=== PATIENT | male | born 1955 | race Caucasian/White ===

== ENCOUNTER → 2024-02-11 | Outpatient (CLI) | payer MEDICARE, BC, SELFPAY ==
[2024-02-11 15:56] LABS: Anion Gap 7 (5-15); BUN 5 mg/dL (7-18); BUN/Creat Ratio 5.3 RATIO (10-20); Calcium,Total 8.9 mg/dL (8.5-10.1); Chloride 96 mmol/L (98-107); Creatinine, Serum 0.95 mg/dL (0.70-1.30); EST Glomerular Filtration Rate 83 mL/min (>60); Est Glom Filt Rate - Afr Amer 101 mL/min (>60); Glucose 75 mg/dL (74-106); Potassium 4.3 mmol/L (3.5-5.1); Sodium Level 130 mmol/L (136-145)
[2024-02-11 16:04] LABS: BNP,B-Type NATRIURETIC PEPTIDE 187.7 pg/mL (0-100)
== END | disposition home or self-care (01) ==
PROVIDERS: PCP Nurse Practitioner Family; Referring Provider Internal Medicine Interventional Cardiology; Visit Provider Internal Medicine Interventional Cardiology
DX: I11.0 Hypertensive heart disease with heart failure (principal); I50.33 Acute on chronic diastolic (congestive) heart failure; J44.1 Chronic obstructive pulmonary disease with (acute) exacerbation
CPT/HCPCS: 80048; 83880

== ENCOUNTER → 2024-07-20 | Outpatient (CLI) | payer MEDICARE, BC, SELFPAY ==
[2024-07-20 23:10] LABS: Absolute Lymphocyte Count 1.08 X10^3/uL (0.83-4.51); Absolute Neutrophil Count 10.2 X10^3/uL (2.0-7.7); Basophil# 0.07 X10^3/uL; Basophil% 0.5 % (0-1); Eosinophil# 0.18 X10^3/uL; Eosinophils% 1.4 % (0-5); Hematocrit 40.6 % (40-54); Hemoglobin 12.8 g/dL (13.0-16.5); Lymphocyte # 1.08 X10^3/ul (0.83-4.51); Lymphocyte % 8.3 % (19-41); Mean Corp Hgb Conc 31.5 g/dL (32-36); Mean Corpuscular Hgb 27.9 pg (27.0-32.0); Mean Corpuscular Volume 88.5 fL (80-94); Mean Platelet Vol. 9.2 fl (6.2-12.0); Monocyte# 1.25 X10^3/uL; Monocyte% 9.6 % (0-10); NRBC Flagged by Analyzer 0 % (0-5); Neutrophil # 10.22 X10^3/uL (2.7-7.7); Neutrophil % 78.8 % (47-70); Platelet Count 244 K/mm3 (150-450); RBC Distribution Width CV 15.6 % (11.6-14.6); RBC Distribution Width SD 50.4 fl (35.1-43.9); Red Blood Count 4.59 M/mm3 (4.6-6.2)
[2024-07-21 01:30] LABS: ALB/GLOB Ratio 1.1 RATIO (0.9-2.4); AST(SGOT) 23 U/L (<=37); Alanine Aminotransfer ALT/SGPT 10 U/L (<=46); Albumin, Serum 3.7 g/dL (3.4-4.8); Alkaline Phosphatase 52 U/L (40-129); Anion Gap 16 (5-15); BUN 8 mg/dL (4-19); BUN/Creat Ratio 8.8 RATIO (10-20); Carbon Dioxide 22.1 mmol/L (21.0-32.0); Chloride 94 mmol/L (98-108); Creatinine, Serum 0.96 mg/dL (0.70-1.20); EST Glomerular Filtration Rate 84 (>60); Globulin 3.4 g/dL (2.2-4.2); Glucose 79 mg/dL (70-99); Potassium 3.8 mmol/L (3.3-5.1); Protein, Total 7.1 g/dL (5.9-8.4); Sodium Level 132 mmol/L (133-145)
== END | disposition home or self-care (01) ==
PROVIDERS: PCP Nurse Practitioner Family; Referring Provider Nurse Practitioner Family; Visit Provider Nurse Practitioner Family
DX: I11.0 Hypertensive heart disease with heart failure (principal); I50.32 Chronic diastolic (congestive) heart failure
CPT/HCPCS: 80053; 85025

== ENCOUNTER → 2025-03-25 | Outpatient (CLI) | payer MEDICARE, BC, SELFPAY ==
[2025-03-25 18:58] LABS: Hematocrit 37.0 % (40-54); Hemoglobin 11.1 g/dL (13.0-16.5); Immature Granulocytes Count 0.080 X10^3/uL (0.0-0.0); Mean Corp Hgb Conc 30.0 g/dL (32-36); Mean Corpuscular Volume 84.9 fL (80-94); Mean Platelet Vol. 9.6 fl (6.2-12.0); NRBC Flagged by Analyzer 0 % (0-5); Platelet Count 250 K/mm3 (150-450); RBC Distribution Width CV 14.1 % (11.6-14.6); RBC Distribution Width SD 43.8 fl (35.1-43.9); Red Blood Count 4.36 M/mm3 (4.6-6.2); White Blood Count 9.7 K/mm3 (4.4-11.0)
[2025-03-25 19:13] LABS: Anion Gap 13 (5-15); BUN 10 mg/dL (4-19); BUN/Creat Ratio 10.6 RATIO (10-20); Calcium,Total 9.3 mg/dL (7.6-11.0); Carbon Dioxide 25.4 mmol/L (21.0-32.0); Chloride 90 mmol/L (98-108); Glucose 60 mg/dL (70-99); Potassium 4.6 mmol/L (3.3-5.1)
--- OUTSIDE RECORDS SUMMARY | 2025-03-25 19:23 | XMS RPT_ITS | CCD ---
Author Organization [facility] Care Team Providers Care Letter Carrier Name Role Phone Priya Rock Unavailable Unavailable Unavailable Unavailable Unavailable Queden TECHNICAL APPLICATIONS SCIENTIST.TAG MACHINE OPERATOR, Alma A Primary Care Provider Richard Nieto Unavailable Queden TECHNICAL APPLICATIONS SCIENTIST.TAG MACHINE OPERATOR, Alma A Primary Care Provider Queden TECHNICAL APPLICATIONS SCIENTIST.TAG MACHINE OPERATOR, Amla A Primary Care Provider Queden TECHNICAL APPLICATIONS SCIENTIST.TAG MACHINE OPERATOR, Alma A Primary Care Provider Dedrick Krause DO Unavailable Dedrick Krause DO Unavailable Queden TECHNICAL APPLICATIONS SCIENTIST.TAG MACHINE OPERATOR, Alma A Primary Care Provider Marbin RINCON, Qi Veliz Unavailable Lilian Sethi RN Unavailable Marbin RINCON, Qi N Unavailable Marbin RINCON, Qi N Unavailable Beatrice Sarmiento Attending Unavailable Beatrice Sarmiento Referring Unavailable Queden VOICE OVER ARTIST, Alma Primary Care Unavailable Queden VOICE OVER ARTIST, Alma Primary Care Unavailable Queden VOICE OVER ARTIST, Alma Attending Unavailable Queden VOICE OVER ARTIST, Alma Referring Unavailable Queden VOICE OVER ARTIST-C, Alma Primary Care Provider [phone] Queden VOICE OVER ARTIST-C, Alma Attending Provider [phone] Queden VOICE OVER ARTIST-C, Alma Referring Provider Beatrice Sarmiento MD Unavailable MONE ROBERTSON Referring Unavailable PROVIDER, UNKNOWN Primary Care Unavailable ROSA M, UBDDY Attending Unavailable TRU PRESCOTT Admitting Unavailable BUDZIAK, ASH SARKAR Referring Unava ilable PROVIDER, UNKNOWN Primary Care Unavailable AGUSTÍN HERNÁNDEZ Attending UnavailFRANCISCO Gutierres Consulting Unavailable Ameya RN, Lilian Unavailable Dedrick Krause DO Unavailable Ameya RN, Lilian Unavailable Ameya RN, Lilian Unavailable QUEDEN, ALMA A Primary Care Unavailable QUEDEN, ALMA A Attending Unavailable QUEDEN, ALMA A Referring Unavailable QUEDEN, ALMA A Primary Care Unavailable MITCHELL CARUSO Referring Unavailable QUEDEN, ALMA A Primary Care Unavailable SANDRA HUMMEL Attending Unavailable QUEDEN, ALMA A Primary Care Unavailable BEAR HIDALGO Attending Unavailable QUEDEN, ALMA A Referring Unavailable QUEDEN, ALMA A Primary Care Unavailable QUEDEN, ALMA A Primary Care Unavailable QUEDEN, ALMA A Referring Unavailable QUEDEN, ALMA A Primary Care Unavailable QUEDEN, ALMA A Attending Unavailable SELF Referring Unavailable QUEDEN, ALMA A Primary Care Unavailable QUEDEN, ALMA A Referring Unavailable QUEDEN, ALMA A Primary Care Unavailable LILIAN RODRÍGUEZ Referring Unavailable TRU SIMON Referring Unavailable QUEDEN, ALMA A Primary Care Unavailable QUEDEN, ALMA A Primary Care Unavailable QUEDEN, ALMA A Attending Unavailable QUEDEN, ALMA A Referring Unavailable QUEDEN, ALMA A Primary Care Unavailable QUEDEN, ALMA A Attending Unavailable MITCHELL CARUSO Referring Unavailable QUEDEN, ALMA A Primary Care Unavailable QUEDEN, ALMA A Referring Unavailable QUEDEN, ALMA A Primary Care Unavailable QUEDEN, ALMA A Primary Care Unavailable TRU SIMON Referring Unavailable BUDZIAKASH Attending Unava ilable QUEDEN, ALMA A Primary Care Unavailable QUEDEN, ALMA A Primary Care Unavailable QUEDEN, ALMA A Referring Unavailable TRU SIMON Referring Unavailable QUEDEN, ALMA A Primary Care Unavailable TRU SIMON Referring Unavailable QUEDEN, ALMA A Primary Care Unavailable TRU SIMON Attending Unavailable QUEDEN, ALMA A Primary Care Unavailable TRU SIMON Referring Unavailable QUEDEN, ALMA A Primary Care Unavailable TRU SIMON Attending Unavailable TRU SIMON Referring Unavailable QUEDEN, ALMA A Primary Care Unavailable TESTRAKE, FRANCESCO Attending Unavailable TESTRAKE, FRANCESCO Referring Unavailable QUEDEN, ALMA A Primary Care Unavailable TRU SIMON Referring Unavailable QUEDEN, ALMA A Primary Care Unavailable TRU SIMON Attending Unavailable QUEDEN, ALMA A Primary Care Unavailable CLICK, MITCHELL Attending Unavailable QUEDEN, ALMA A Primary Care Unavailable SIMON, TRU SARKAR Attending Unavailable CLICK, MITCHELL Referring Unavailable QUEDEN, ALMA A Primary Care Unavailable TESTRAKE, FRANCESCO Attending Unavailable QUEDEN, ALMA A Primary Care Unavailable SIMON, TRU SARKAR Attending Unavailable QUEDEN, ALMA A Primary Care Unavailable TORSTEN, BEATRICE GARZA Attending Unavailable TORSTEN, BEATRICE GARZA Referring Unavailable QUEDEN, ALMA A Primary Care Unavailable TRU LUCAS Attending Unavailable QUEDEN, ALMA A Primary Care Unavailable TRU SIMON Referring Unavailable QUEDEN, ALMA A Primary Care Unavailable TESTRAKE, FRANCESCO Attending Unavailable TESTRAKE, FRANCESCO Referring Unavailable QUEDEN, ALMA A Primary Care Unavailable Allergies Allergy Classification Reported Allergen(s) Allergy Type Date of Onset Reaction(s) Facility (20 sources) Seasonal allergy; Translations: [SEASONAL ALLERGIES] Propensity to adverse reactions 3 Other: See Comments [facility] Work Phone: (20 sources) Animal Dander; Translations: [ANIMAL DANDER] Propensity to adverse reactions to drug 3 Other: See Comments [facility] Work Phone: Medications Current Medications Medication Drug Class(es) Dates Sig (Normalized) Sig (Original) acetaminophen 500 mg oral tablet (20 sources) Start: 02-19-2022 take 2 tablets by mouth every eight hours as needed for pain acetaminophen (TYLENOL EXTRA STRENGTH) 500 mg tablet Indications: Chronic low back pain, unspecified back pain laterality, unspecified whether sciatica present Take 2 tablets by mouth every 8 hours as needed for pain. FOR PAIN. 90 tablet 02/19/2022 Active Comment on above: Take 2 tablets by [facility] every 8 hours as needed for pain. FOR PAIN. 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 35 tablet 09/14/2024 09/21/2024 sensor 200 actuat albuterol 0.09 mg/actuat dry powder inhaler (20 sources) beta2-Adrenergic Agonist Start: 09-07-2022 End: 04-15-2023 take 1-2 puff(s) by inhalation every four hours as needed for wheezing albuterol sulfate 90 mcg/actuation aebs Inhale 1-2 Puffs as instructed every 4 hours as needed for wheezing/shortness of breath. 1 Each 2 04/15/2023 Active Start: 09-07-2022 End: 09-07-2022 albuterol (PROVENTIL) 2.5 mg /3 mL (0.083 %) nebulizer solution Indications: SOB (shortness of breath) on exertion Use 3 mL via nebulizer every 4 hours as needed for wheezing/shortness of breath. 240 mL 1 09/07/2022 09/07/2022 Discontinued (Patient chooses alternative therapy) Comment on above: Inhale 1-2 Puffs as instructed every 4 hours as needed for wheezing/shortness of breath. Use 3 mL via nebuliz er every 4 hours as needed for wheezing/shortness of breath. 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 360 mL 5 06/24/2024 Active aspirin 81 mg delayed release oral tablet (20 sources) Platelet Aggregation Inhibitor, Nonsteroidal Anti-inflammatory Drug take 1 tablet by mouth once daily aspirin, enteric coated (ASPIRIN, ENTERIC COATED) 81 mg EC tablet Take 81 mg by mouth once daily. Active Kisha Low Dose T BEC Refills: 0 Active Comment on above: Take 81 mg by mouth once daily. azaTHIOprine 50 mg oral tablet (20 sources) Purine Antimetabolite Start: End: take 1 tablet by mouth once daily azaTHIOprine (IMURAN) 50 mg tablet Indications: Hypersensitivity pneumonitis (HCC) Take 1 tablet by mouth once daily. 11/11/2024 Active budesonide 0.25 mg/ml inhalation suspension (20 sources) Corticosteroid Start: End: budesonide (PULMICORT) 0.5 mg/2 mL nebulizer solution Indications: Chronic obstructive pulmonary disease with acute exacerbation (HCC) Use 2 mL via nebulizer two times a day. 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 360 mL 1 06/24/2024 12/21/2024 Active cefdinir 300 mg oral capsule (1 source) Cephalosporin Antibacterial Start: 10-17-2024 End: 10-20-2024 cefdinir (OMNICEF) 300 mg capsule Take 1 capsule by mouth two times a day for 6 doses. Patient should start on October 17, 2024. 6 capsule 10/17/2024 10/20/2024 Active ciprofloxacin 500 mg oral tablet (1 source) Quinolone Antimicrobial Start: 03-19-2022 End: 03-26-2022 take 1 tablet by mouth twice daily ciprofloxacin HCl (CIPRO) 500 mg tablet Indications: Complicated UTI (urinary tract infection) Take 1 tablet by mouth twice daily for 7 days. 14 tablet 0 03/19/2022 03/26/2022 Active Comment on above: Take 1 tablet by anand th twice daily for 7 days. clopidogrel 75 mg oral tablet (20 sources) P2Y12 Platelet Inhibitor Start: 08-12-2022 End: 01-12-2025 take 1 tablet by mouth once daily clopidogrel (PLAVIX) 75 mg tablet Indications: Peripheral vascular disease TAKE 1 TABLET BY MOUTH EVERY DAY 90 tablet 1 01/12/2025 Active Comment on above: Take 1 tablet by anand th once daily. take 1 tablet by anand th every day colestipol hydrochloride 1000 mg oral tablet (20 sources) Bile Acid Sequestrant Start: 09-03-2023 End: 10-26-2024 take 1 tablet by mouth twice daily colestipol (COLESTID) 1 gram tablet Indications: Diarrhea, unspecified type Take 1 tablet by mouth two times a day. 180 tablet 1 10/26/2024 Active doxycycline hyclate 100 mg oral capsule (9 sources) Tetracycline-class Drug Start: 04-20-2024 End: 04-30-2024 take 1 capsule by mouth twice daily doxycycline hyclate (VIBRAMYCIN) 100 mg capsule Take 1 capsule (100 mg) by mouth two times a day for 10 days. 20 capsule 04/20/2024 04/30/2024 Active escitalopram 20 mg oral tablet (20 sources) Serotonin Reuptake Inhibitor Start: 07-17-2022 End: 01-12-2025 take 1 tablet by mouth once daily escitalopram oxalate (LEXAPRO) 20 mg tablet Indications: Anxiety and depression TAKE 1 TABLET BY MOUTH EVERY DAY 90 tablet 1 01/12/2025 Active Start: 02-01-2022 End: 05-02-2022 take 1 tablet by mouth once daily escitalopram oxalate (LEXAPRO) 20 mg tablet Indications: Anxiety and depression TAKE 1 TABLET BY MOUTH EVERY DAY 30 tablet 2 05/02/2022 Active Start: 11-23-2021 End: 02-01-2022 take 2 tablets by mouth once daily escitalopram oxalate (LEXAPRO) 10 mg tablet Take 2 tablets by mouth once daily. 90 tablet 1 11/23/2021 02/01/2022 Discontinued Start: 11-14-2021 End: 11-23-2021 take 1 tablet by mouth once daily escitalopram oxalate (LEXAPRO) 10 mg tablet Take 1 tablet by mouth once daily. 90 tablet 1 11/14/2021 11/23/2021 Discontinued Start: 06-26-2021 take 1 tablet by anand th once daily escitalopram oxalate (LEXAPRO) 10 mg tablet TAKE 1 TABLET BY MOUTH EVERY DAY 90 tablet 1 06/26/2021 Active Escitalopram Oxa late 10 MG Oral Tablet Refills: 0 Active Comment on above: TAKE 1 TABLET BY ANAND TH EVERY DAY Take 2 tablets by mo ut once daily. Take 1 tablet by anand th once daily. ezetimibe 10 mg oral tablet (20 sources) Dietary Cholesterol Absorption Inhibitor Start: 01-30-20 End: 05-17-19 take 1 tablet by mouth once daily ezetimibe (ZETIA) 10 mg tablet Indications: Mixed hyperlipidemia Take 1 tablet by mouth once daily. 90 tablet 3 05/18/2024 Active Comment on above: Take 1 tablet by anand th once daily. fluticasone propionate 0.05 mg/actuat metered dose nasal spray (20 sources) Corticosteroid Start: 09-14-19 End: 12-12-19 take 1 spray(s) nasal route once daily fluticasone (FLONASE) 50 mcg/actuation nasal spray Indications: Postnasal drip spray 1 spray into each nostril every day 48 mL 1 12/12/2023 Active Comment on above: Use 1 Jaffrey in each nostril once daily. SPRAY 1 SPRAY INTO E ACH NOSTRIL EVERY DAY furosemide 40 mg oral tablet (20 sources) Loop Diuretic Start: 05-20-19 24 End: 03-31-20 24 take 1 tablet by mouth three times weekly furosemide (LASIX) 40 mg tablet Indications: Medication refill Take 1 tablet by mouth three times a week. 36 tablet 1 03/31/2024 Active Start: 08-11-2022 take 1 tablet by anand th three times weekly furosemide (LASIX) 40 mg tablet Indications: Medication refill Take 1 tablet by mouth three times a week. 0 08/11/2022 Active Start: 11-08-2021 take 1 tablet by anand th once daily as needed furosemide (LASIX) 40 mg tablet Indications: Medication refill TAKE 1 TABLET BY MOUTH ONCE DAILY NEEDED. 30 tablet 2 03/20/2021 Active Comment on above: TAKE 1 TABLET BY ANAND ONCE DAILY NEEDED. Take 1 tablet by anand th three times a week. gabapentin 300 mg oral capsule (20 sources) Anti-epileptic Agent Start: 06-23-2024 End: 08-02-2024 take 2 capsules by mouth once daily in the morning gabapentin (NEURONTIN) 300 mg capsule Indications: Neuropathy TAKE 2 CAPSULES BY MOUTH EVERY MORNING AND 3 CAPSULES AT BEDTIME FOR 30 DAYS. Strength: 300 mg 150 capsule 2 07/14/2024 Active Start: 04-27-2024 End: 06-17-2024 take 2 capsules by mouth once daily in the morning gabapentin (NEURONTIN) 300 mg capsule Indications: Neuropathy TAKE 2 CAPSULES BY MOUTH EVERY MORNING AND 3 CAPSULES AT BEDTIME FOR 30 DAYS. Strength: 300 mg 150 capsule 2 05/25/2024 06/17/2024 Active Start: 12-23-2023 End: 04-25-2024 take 2 capsules by mouth once daily in the morning gabapentin (NEURONTIN) 300 mg capsule Indications: Neuropathy TAKE 2 CAPSULES BY MOUTH EVERY MORNING AND 3 CAPSULES AT BEDTIME FOR 30 DAYS. Strength: 300 mg 150 capsule 2 03/31/2024 04/25/2024 Discontinued Start: 11-22-2023 End: 12-21-2023 take 2 capsules by mouth once daily in the morning gabapentin (NEURONTIN) 300 mg capsule Indications: Neuropathy TAKE 2 CAPSULES BY MOUTH EVERY MORNING AND 3 CAPSULES AT BEDTIME FOR 30 DAYS. Strength: 300 mg 150 capsule 0 11/22/2023 12/20/2023 Discontinued Start: 09-20-2023 End: 11-20-2023 take 2 capsules by mouth once daily in the morning gabapentin (NEURONTIN) 300 mg capsule Indications: Neuropathy TAKE 2 CAPSULES BY MOUTH EVERY MORNING AND 3 CAPSULES AT BEDTIME FOR 30 DAYS. STRENGTH: 300 MG 150 capsule 0 10/21/2023 Active Start: 08-19-2023 End: 09-14-2023 take 2 capsules by mouth once daily in the morning gabapentin (NEURONTIN) 300 mg capsule Indications: Neuropathy TAKE 2 CAPSULES BY MOUTH EVERY MORNING AND 3 CAPSULES AT BEDTIME FOR 30 DAYS. Strength: 300 mg 150 capsule 0 08/19/2023 Active Start: 02-14-2023 End: 08-15-2023 take 2 capsules by mouth once daily in the morning gabapentin (NEURONTIN) 300 mg capsule Indications: Neuropathy TAKE 2 CAPSULES BY MOUTH EVERY MORNING AND 3 CAPSULES AT BEDTIME FOR 30 DAYS. Strength: 300 mg 150 capsule 0 07/19/2023 Active Start: 12-17-2022 End: 02-12-2023 take 2 capsules by mouth once daily in the morning, then take 3 capsules by mouth at bedtime gabapentin (NEURONTIN) 300 mg capsule Indications: Neuropathy TAKE 2 CAPSULES BY MOUTH EVERY MORNING AND 3 CAPSULES AT BEDTIME FOR 30 DAYS. 150 capsule 0 01/15/2023 02/12/2023 Active Start: 10-09-2022 End: 12-15-2022 take 2 capsules by mouth once daily in the morning, then take 3 capsules by mouth at bedtime gabapentin (NEURONTIN) 300 mg capsule Indications: Neuropathy TAKE 2 CAPSULES BY MOUTH EVERY MORNING AND 3 CAPSULES AT BEDTIME FOR 30 DAYS. 150 capsule 0 11/12/2022 12/15/2022 Discontinued Start: 04-10-2022 End: 09-28-2022 take 2 capsules by mouth once daily in the morning, then take 3 capsules by mouth at bedtime gabapentin (NEURONTIN) 300 mg capsule Indications: Neuropathy TAKE 2 CAPSULES BY MOUTH EVERY MORNING AND 3 CAPSULES AT BEDTIME FOR 30 DAYS. 150 capsule 0 08/29/2022 09/28/2022 Active Start: 03-05-2022 End: 04-04-2022 take 2 capsules by mouth once daily in the morning, then take 3 capsules by mouth once daily at bedtime gabapentin (NEURONTIN) 300 mg capsule Indications: Neuropathy TAKE 2 CAPSULES BY MOUTH EVERY MORNING AND 3 CAPSULES DAILY AT BEDTIME. DO ALL THIS FOR 30 DAYS. 150 capsule 0 03/05/2022 04/04/2022 Active Start: 12-04-2021 End: 03-03-2022 take 2 capsules by mouth once daily in the morning, then take 3 capsules by mouth once daily at bedtime gabapentin (NEURONTIN) 300 mg capsule Indications: Neuropathy Take 2 capsules by mouth every morning AND 3 capsules daily at bedtime. Do all this for 30 days. 150 capsule 0 02/01/2022 Active Start: 10-02-2021 End: 12-01-2021 take 2 capsules by mouth once daily in the morning, then take 3 capsules by mouth once daily at bedtime gabapentin (NEURONTIN) 300 mg capsule Take 2 capsules by mouth every morning AND 3 capsules daily at bedtime. Do all this for 30 days. 150 capsule 0 11/01/2021 Active Start: 07-28-2021 End: 09-29-2021 take 2 capsules by mouth once daily in the morning, then take 3 capsules by mouth once daily at bedtime gabapentin (NEURONTIN) 300 mg capsule Take 2 capsules by mouth every morning AND 3 capsules daily at bedtime. Do all this for 30 days. 150 capsule 0 08/30/2021 09/29/2021 Active Gabapentin 300 M G Oral Capsule Refills: 0 Active Comment on above: Take 2 capsules by m outh every morning AND 3 capsules daily at bedtime. Do all this for 30 days. TAKE 2 CAPSULES BY M OUTH EVERY MORNING AND 3 CAPSULES AT BEDTIME FOR 30 DAYS. TAKE 2 CAPSULES BY M OUTH EVERY MORNING AND 3 CAPSULES AT BEDTIME FOR 30 DAYS. 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 60 tablet 5 11/11/2024 Active Start: 02-11-2024 End: 03-21-2024 take 1 tablet by mouth twice daily as needed guaiFENesin (MUCINEX) 600 mg 12 hr tablet Take 1 tablet by mouth two times a day as needed for cold/allergy symptoms. 60 tablet 02/11/2024 03/21/2024 Discontinued Start: 01-16-2024 End: 01-26-2024 take 1 tablet by mouth every twelve hours guaiFENesin (MUCINEX) 600 mg 12 hr tablet Take 1 tablet by mouth every 12 hours for 10 days. 20 tablet 01/16/2024 01/26/2024 Active hydrOXYzine hydrochloride 25 mg oral tablet (20 sources) Antihistamine Start: 07-14-2024 take 2 tablets by mouth twice daily hydrOXYzine HCl (ATARAX) 25 mg tablet Indications: Itching Take 2 tablets by mouth two times a day. 360 tablet 1 07/14/2024 Active Start: 01-24-2023 End: 02-05-2024 take 1 tablet by mouth four times daily hydrOXYzine HCl (ATARAX) 25 mg tablet Indications: Anxiety and depression take 1 tablet by mouth four times a day 360 tablet 1 01/03/2024 02/05/2024 Discontinued Start: 07-02-2022 End: 12-27-2022 take 1 tablet by mouth four times daily hydrOXYzine HCl (ATARAX) 25 mg tablet Indications: Anxiety and depression TAKE 1 TABLET BY MOUTH FOUR TIMES A DAY 120 tablet 1 11/01/2022 12/27/2022 Discontinued Start: 06-26-2021 End: 05-02-2022 take 1 tablet by mouth four times daily hydrOXYzine HCl (ATARAX) 25 mg tablet Indications: Anxiety and depression TAKE 1 TABLET BY MOUTH 4 TIMES A DAY 120 tablet 1 05/02/2022 Active Start: 05-29-2020 hydrOXYzine HC l - 25 MG Oral Tablet Quantity: 120 Refills: 0 Start : 29-May-2020 Active Comment on above: TAKE 1 TABLET BY ANAND TH FOUR TIMES A DAY Take 1 tablet by anand th four times daily. TAKE 1 TABLET BY ANAND TH 4 TIMES A DAY 24 hr isosorbide mononitrate 30 mg extended release oral tablet (20 sources) Nitrate Vasodilator Start: End: take 1 tablet by mouth once daily isosorbide mononitrate ER (IMDUR) 30 mg 24 hr tablet Indications: Chest discomfort Take 1 tablet by mouth once daily. 90 tablet 1 07/21/2024 Active Start: 06-04-2022 End: 07-05-2022 take 1 tablet by mouth once daily isosorbide mononitrate ER (IMDUR) 30 mg 24 hr tablet Take 1 tablet by mouth once daily. 15 tablet 11 07/05/2022 Active Comment on above: Take 0.5 tablets by mouth once daily. Take 1 tablet by anand th once daily. TAKE 1 TABLET BY ANAND TH EVERY DAY lactobacillus acidophilus [id number] unt oral capsule (20 sources) take 1 capsule by mouth once daily Lactobacillus acidophilus (PROBIOTIC) 10 billion cell cap Take 1 capsule by mouth once daily. Active Comment on above: Take 1 capsule by [facility] once daily. levoFLOXacin 500 mg oral tablet (5 sources) Quinolone Antimicrobial Start: 07-29-19 End: 08-05-19 take 1 tablet by mouth once daily levoFLOXacin (LEVAQUIN) 500 mg tablet Indications: Wheezing , Acute on chronic hypoxic respiratory failure (HCC) Take 1 tablet by mouth once daily for 7 days. 7 tablet 07/28/2024 08/04/2024 Active Start: 06-08-2024 End: 06-15-2024 take 1 tablet by mouth once daily levoFLOXacin (LEVAQUIN) 500 mg tablet Take 1 tablet by mouth once daily for 7 days. 7 tablet 06/08/2024 06/15/2024 Active lidocaine 0.05 mg/mg medicated patch (3 sources) Antiarrhythmic, Amide Local Anesthetic Start: 09-14-2024 End: 09-19-2024 apply 1 dose transdermal route once daily lidocaine (LIDODERM) 5 % Indications: Herpes zoster without complication Apply 1 patch as directed once daily for 5 days. REMOVE AFTER 12 HOURS. 5 patch 09/14/2024 09/19/2024 Active lisinopril 2.5 mg oral tablet (20 sources) Angiotensin Converting Enzyme Inhibitor Start: 02-03-2024 End: 05-17-2024 take 1 tablet by mouth twice daily lisinopril 2.5 mg tablet Indications: Essential hypertension Take 1 tablet by mouth two times a day. Hold if SBP less than 110 180 tablet 3 05/18/2024 Active Start: 01-16-2024 End: 02-03-2024 take 1 tablet by mouth once daily lisinopril (ZESTRIL) 10 mg tablet Indications: Essential hypertension Take 1 tablet by mouth once daily. Hold if SBP less than 110 90 tablet 1 01/16/2024 02/03/2024 Discontinued Start: 05-14-2023 End: 11-04-2023 take 1 tablet by mouth once daily lisinopril (ZESTRIL) 10 mg tablet Indications: Essential hypertension take 1 tablet by mouth every day 90 tablet 1 11/04/2023 Suspended Start: 07-20-2021 End: 12-17-2022 take 1 tablet by mouth once daily lisinopril (ZESTRIL) 10 mg tablet Indications: Essential hypertension Take 1 tablet by mouth once daily. 30 tablet 5 12/17/2022 Active Lisinopril 10 MG Oral Tablet Refills: 0 Active Comment on above: TAKE 1 TABLET BY ANAND TH EVERY DAY Take 1 tablet by anand th once daily. 24 hr metoprolol succinate 25 mg extended release oral tablet (20 sources) beta-Adrenergic Winston Start: 12-21-2024 take 1 tablet by mouth once daily metoprolol succinate ER (TOPROL XL) 25 mg 24 hr tablet TAKE 1 TABLET BY MOUTH EVERY DAY 90 tablet 1 12/21/2024 Active Start: 03-31-2024 End: 12-21-2024 take 1 tablet by mouth every hour metoprolol succinate ER (TOPROL XL) 25 mg 24 hr tablet Take 1 tablet by mouth every afternoon. 90 tablet 1 06/23/2024 12/21/2024 Discontinued Start: 08-08-2023 End: 03-31-2024 take 1 tablet by mouth once daily metoprolol succinate ER (TOPROL XL) 25 mg 24 hr tablet take 1 tablet by mouth every day 90 tablet 1 01/03/2024 03/31/2024 Discontinued Start: 07-17-2022 End: 02-13-2023 take 1 tablet by mouth once daily metoprolol succinate ER (TOPROL XL) 25 mg 24 hr tablet take 1 tablet by mouth every day 90 tablet 1 02/13/2023 Active Start: 02-27-2021 End: 01-04-2022 take 1 tablet by mouth once daily metoprolol succinate ER (TOPROL XL) 25 mg 24 hr tablet TAKE 1 TABLET BY MOUTH EVERY DAY 90 tablet 1 01/04/2022 Active take 1 tablet by anand th every twenty-four hours Metoprolol Succinate ER 25 MG Oral Tablet Extended Release 24 Hour Refills: 0 Active Comment on above: TAKE 1 TABLET BY ANAND TH EVERY DAY multivit-min/folic/vit K/lycop (ONE-A-DAY MEN'S MULTIVITAMIN ORAL) (20 sources) multivit-min/fol ic/vit K/lycop (ONE-A-DAY MEN'S MULTIVITAMIN ORAL) Take by mouth once daily. Suspended multivit-min/fol ic/vit K/lycop (ONE-A-DAY MEN'S MULTIVITAMIN ORAL) Take by mouth once daily. Active multivit-min/fol ic/vit K/lycop (ONE-A-DAY MEN'S MULTIVITAMIN ORAL) Take by mouth once daily. 0 Active Comment on above: Take by mouth once d aily. mupirocin 0.02 mg/mg topical ointment (1 source) RNA Synthetase Inhibitor Antibacterial Start: 10-16-2024 End: 10-19-2024 mupirocin (BACTROBAN) 2 % ointment Apply to affected area three times a day for 8 doses. 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 25 tablet 08/06/2023 Active Start: 06-04-2022 nitroglycerin sublingual (NITROSTAT) 0.4 mg SL tablet Dissolve 1 tablet under the tongue every 5 minutes as needed for chest pain. 25 tablet 5 06/04/2022 Active Start: 03-04-2022 End: 06-04-2022 nitroglycerin sublingual (NI TROQUICK) 0.3 mg SL tablet Dissolve 1 tablet under the tongue every 5 minutes as needed for chest pain. 100 tablet 0 03/04/2022 06/04/2022 Discontinued End: 03-01-2022 nitroglycerin sublingual (NI TROQUICK) 0.3 mg SL tablet Dissolve 0.3 mg under the tongue every 5 minutes as needed. 0 03/01/2022 Discontinued Nitroglycerin 0. 4 MG Sublingual Tablet Sublingual Refills: 0 Active Comment on above: Dissolve 0.3 mg unde r the tongue every 5 minutes as needed. Dissolve 1 tablet un angelina the tongue every 5 minutes as needed for chest pain. OXYGEN, HOME THERAPY, (20 sources) OXYGEN, HOME THE RAPY, 3 L/min by Nasal Cannula route as directed. Suspended OXYGEN, HOME THE RAPY, 3 L/min by Nasal Cannula route as directed. Active pantoprazole 40 mg delayed release oral tablet (20 sources) Proton Pump Inhibitor Start: 05-28-2023 End: 11-16-2024 take 1 tablet by mouth once daily pantoprazole DR (PROTONIX) 40 mg tablet TAKE 1 TABLET BY MOUTH EVERY DAY 90 tablet 1 11/16/2024 Active Start: 12-04-2022 take 1 tablet by anand th once daily pantoprazole DR (PROTONIX) 40 mg tablet Take 1 tablet by mouth once daily. 90 tablet 1 12/04/2022 Active Comment on above: Take 1 tablet by anand th once daily. take 1 tablet by anand th every day polyethylene glycol [id number] 060341 mg / potassium chloride 2970 mg / sodium bicarbonate 6740 mg / sodium chloride 5860 mg / sodium sulfate 29056 mg powder for oral solution (1 source) Osmotic Laxative Start: End: peg 3350-Electrolytes (GOLYTELY) 236-22.74-6.74 -5.86 gram suspension Take 4,000 mL by mouth one time only for 1 dose. Refer to printed prep instructions from your provider. 4000 mL 0 06/27/2023 06/27/2023 Active Comment on above: Take 4,000 mL by anand one time only for 1 dose. Refer to printed prep instructions from your provider. microencapsulated potassium chloride 20 meq extended release oral tablet (2 sources) Start: End: take 1 tablet by mouth twice daily potassium chloride ER (KLOR-CON) 20 mEq tablet Take 1 tablet by mouth two times a day for 6 days. 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 30 tablet 5 11/11/2024 05/10/2025 Active Start: 10-17-2024 End: 11-09-2024 take 2 tablets by mouth once daily, then take 1 tablet by mouth once daily predniSONE (DELTASONE) 5 mg tablet Take 2 tablets by mouth once daily for 2 days, THEN 1 tablet once daily for 21 days. 25 tablet 10/17/2024 11/09/2024 Active Start: 05-25-2024 End: 11-09-2024 take 2 tablets by mouth once daily, then take 1.5 tablets by mouth once daily, then take 1 tablet by mouth once daily, then take 0.5 tablet by mouth once daily predniSONE (DELTASONE) 10 mg tablet Indications: Hypersensitivity pneumonitis (HCC) TAKE 2 TABLETS BY MOUTH ONCE DAILY FOR 21 DAYS, THEN 1.5 TABLETS ONCE DAILY FOR 21 DAYS, THEN 1 TABLET ONCE DAILY FOR 21 DAYS, THEN 0.5 TABLETS ONCE DAILY FOR 21 DAYS. 105 tablet 08/17/2024 10/16/2024 Discontinued Start: 04-23-2024 End: 05-21-2024 take 4 tablets by mouth once daily, then take 3 tablets by mouth once daily, then take 2 tablets by mouth once daily, then take 1 tablet by mouth once daily predniSONE (DELTASONE) 10 mg tablet Take 4 tablets by mouth once daily for 7 days, THEN 3 tablets once daily for 7 days, THEN 2 tablets once daily for 7 days, THEN 1 tablet once daily for 7 days. 70 tablet 04/23/2024 05/21/2024 Active Start: 01-17-2024 End: 01-20-2024 take 2 tablets by mouth once daily predniSONE (DELTASONE) 20 mg tablet Take 2 tablets by mouth once daily for 3 doses. 6 tablet 01/17/2024 01/20/2024 Active rosuvastatin calcium 20 mg oral tablet (20 sources) HMG-CoA Reductase Inhibitor Start: 07-22-2023 End: 05-17-2024 take 1 tablet by mouth once daily at bedtime rosuvastatin (CRESTOR) 20 mg tablet Take 1 tablet by mouth daily at bedtime. 90 tablet 3 05/18/2024 Active Comment on above: Take 1 tablet by anand th daily at bedtime. sulfamethoxazole 800 mg / trimethoprim 160 mg oral tablet (14 sources) Dihydrofolate Reductase Inhibitor Antibacterial, Sulfonamide Antimicrobial Start: 10-16-2024 End: 11-19-2024 take 1 tablet by mouth twice daily, then take 1 tablet by mouth once daily before breakfast sulfamethoxazole- trimethoprim (BACTRIM DS) 800-160 mg per tablet Take 1 tablet by mouth two times a day for 4 days, THEN 1 tablet daily before breakfast. 38 tablet 10/16/2024 11/19/2024 Active traMADol hydrochloride 100 mg oral tablet (20 sources) Opioid Agonist Start: 02-19-2022 End: 03-21-2022 take 1 tablet by mouth twice daily as needed for pain traMADol (ULTRAM) 100 mg tablet Indications: Chronic low back pain, unspecified back pain laterality, unspecified whether sciatica present Take 1 tablet by mouth twice daily as needed for pain for up to 30 days. 60 tablet 0 02/19/2022 03/21/2022 Active Start: 11-23-2021 End: 12-23-2021 take 1-2 tablets by mouth twice daily as needed for pain traMADol (ULTRAM) 50 mg tablet Indications: Chronic low back pain, unspecified back pain laterality, unspecified whether sciatica present Take 1-2 tablets by mouth twice daily as needed for pain for up to 30 days. Do not take with Tramadol 120 tablet 0 11/23/2021 12/23/2021 Active End: 02-19-2022 take 100 mg by mouth once daily traMADol 100 mg TM24 T uzma 100 mg by mouth once daily. 0 02/19/2022 Discontinued traMADol HCl - 5 0 MG Oral Tablet Refills: 0 Active Comment on above: Take 1-2 tablets by mouth twice daily as needed for pain for up to 30 days. Do not take with Tramadol Take 100 mg by mouth once daily. Take 1 tablet by anand th twice daily as needed for pain for up to 30 days. traZODone hydrochloride 100 mg oral tablet (20 sources) Serotonin Reuptake Inhibitor Start: End: take 2 tablets by mouth once daily at bedtime traZODone (DESYREL) 100 mg tablet Indications: Insomnia, unspecified type TAKE 2 TABLETS BY MOUTH EVERY DAY AT BEDTIME 180 tablet 1 10/06/2024 Active Start: 03-05-2022 End: 11-29-2022 traZODone (DESYREL) 100 mg t ablet Indications: Insomnia, unspecified type TAKE 2 TABLETS DAILY AT BEDTIME 180 tablet 1 11/29/2022 Active Start: 03-04-2022 End: 03-05-2022 take 1 tablet by mouth once daily at bedtime traZODone (DESYREL) 100 mg tablet Indications: Insomnia, unspecified type Take 1 tablet by mouth daily at bedtime. Hold while taking Trazodone 180 tablet 1 03/04/2022 03/05/2022 Discontinued Start: 11-23-2021 End: 03-02-2022 take 1 tablet by mouth once daily at bedtime traZODone (DESYREL) 100 mg tablet Indications: Insomnia, unspecified type Take 1 tablet by mouth daily at bedtime. Hold while taking Trazodone 180 tablet 1 01/04/2022 03/02/2022 Discontinued Start: 06-26-2021 End: 11-23-2021 take 2 tablets by mouth at bedtime traZODone (DESYREL) 100 mg tablet TAKE 2 TABLETS BY MOUTH AT BEDTIME 180 tablet 1 06/26/2021 11/23/2021 Discontinued Start: 05-29-2020 traZODone HCl - 100 MG Oral Tablet Quantity: 60 Refills: 0 Start : 29-May-2020 Active Comment on above: TAKE 2 TABLETS BY MO UTH AT BEDTIME Take 1 tablet by anand th daily at bedtime. Hold while taking Trazodone 2 tablets daily at b edtime TAKE 2 TABLETS DAILY AT BEDTIME TAKE 2 TABLETS BY MO UTH DAILY AT BEDTIME triamcinolone acetonide 1 mg/ml topical cream (20 sources) Corticosteroid Start: 06-22-2024 End: 07-22-2024 triamcinolone acetonide (KENALOG) 0.1 % cream Apply to affected area two times a day. 45 g 1 06/22/2024 07/22/2024 Active Start: 08-05-2023 End: 09-04-2023 triamcinolone acetonide (MIGUEL ALOG) 0.1 % cream Apply to affected area two times a day. 45 g 1 08/05/2023 09/04/2023 Start: 03-04-2022 End: 04-03-2022 triamcinolone acetonide (MIGUEL ALOG) 0.1 % cream Apply to affected area twice daily. 45 g 1 03/04/2022 04/03/2022 Active End: 03-04-2022 triamcinolone acetonide (MIGUEL ALOG) 0.1 % cream Apply to affected area twice daily. 0 03/04/2022 Discontinued Comment on above: Apply to affected ar ea twice daily. Apply to affected ar ea two times a day. Zinc (20 sources) take 1 tablet by mouth once daily Zinc 50 mg tab Take 50 mg by mouth once daily. Suspended take 1 tablet by mouth once laura y Zinc 50 mg tab Take 50 mg by mouth once daily. Active take 1 tablet by mouth once laura y Zinc 50 mg tab Take 50 mg by mouth once daily. 0 Active Zinc 50 mg tab T uzma 50 mg by mouth. 0 Active Comment on above: Take 50 mg by mouth. Take 50 mg by mouth once daily. Completed/Discontinued Medications Medication Drug Class(es) Dates Sig (Normalized) Sig (Original) acetaminophen 325 mg / HYDROcodone bitartrate 5 mg oral tablet (1 source) Opioid Agonist Start: 05-22-2020 HYDROcodone-Acetamino phen 5-325 MG Oral Tablet Quantity: 10 Refills: 0 Start : 22-May-2020 Active ascorbic acid 500 mg oral tablet (20 sources) Vitamin C End: 03-13-2024 take 1 tablet by mouth once daily ascorbic acid, vitamin C, (VITAMIN C) 500 mg tablet Take 500 mg by mouth once daily. 03/13/2024 Discontinued (Course of therapy completed) Comment on above: Take 500 mg by mouth once daily. atropine sulfate 0.025 mg / diphenoxylate hydrochloride 2.5 mg oral tablet (20 sources) Anticholinergic, Cholinergic Muscarinic Antagonist, Antidiarrheal Start: 06-27-2023 End: 07-04-2023 take 2 tablets by mouth once at bedtime diphenoxylate-atropin e (LOMOTIL) 2.5-0.025 mg per tablet Indications: Diarrhea, unspecified type Take 2 tablets by mouth before meals and at bedtime for 7 days. Stop once diarrhea resolves. 56 tablet 06/27/2023 Suspended Comment on above: Take 2 tablets by mo [facility] before meals and at bedtime for 7 days. Stop once diarrhea resolves. 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 6 tablet 06/24/2024 07/14/2024 Discontinued (Course of therapy completed) Probiotic Daily CAPS (1 source) Probiotic Daily CAPS Refills: 0 Active Blood-Glucose Sensor (FREESTYLE ROSA 3 PLUS SENSOR) chata (19 sources) Start: 09-10-2024 End: 10-14-2024 Blood-Glucose Sensor (FREESTYLE ROSA 3 PLUS SENSOR) chata Indications: Hypoglycemia 1 device every 2 weeks. 2 each 2 09/10/2024 10/14/2024 Discontinued (Adjust Sig - Block E-Cancel) Start: 09-10-2024 Blood-Glucose Sensor (FREESTYLE ROSA 3 PLUS SENSOR) chata Indications: Hypoglycemia 1 device every 2 weeks. 2 each 2 09/10/2024 Suspended Start: 09-10-2024 Blood-Glucose Sensor (FREESTYLE ROSA 3 PLUS SENSOR) chata Indications: Hypoglycemia 1 device every 2 weeks. 2 each 2 09/10/2024 Active 120 actuat budesonide 0.16 mg/actuat / formoterol fumarate 0.0048 mg/actuat / glycopyrrolate 0.009 mg/actuat metered dose inhaler (1 source) Corticosteroid, beta2-Adrenergic Agonist Start: 06-24-2024 End: 06-24-2024 take 2 puff(s) by inhalation twice daily twewvtekah-jqqkvlkr-eozqwknyui (BREZTRI AEROSPHERE) 160-9-4.8 mcg/actuation HFA aerosol inhaler Indications: Hypersensitivity pneumonitis (HCC) , Chronic respiratory failure with hypoxia (HCC) , Combined pulmonary fibrosis and emphysema (CPFE) ([facility]) Inhale 2 Puffs as instructed two times a day. 10.7 g 5 06/24/2024 06/24/2024 Discontinued busPIRone hydrochloride 5 mg oral tablet (20 sources) Start: 02-05-2024 End: 07-14-2024 take 1 tablet by mouth three times daily as needed busPIRone (BUSPAR) 5 mg tablet Indications: Anxiety and depression Take 1 tablet by mouth three times a day as needed. 270 tablet 1 03/31/2024 07/14/2024 Discontinued (Course of therapy completed) cephalexin 500 mg oral capsule (7 sources) Cephalosporin Antibacterial Start: 02-19-2022 End: 03-01-2022 take 1 capsule by mouth twice daily cephALEXin (KEFLEX) 500 mg capsule Indications: Acute cystitis with hematuria Take 1 capsule by mouth twice daily for 10 days. 20 capsule 0 02/19/2022 03/01/2022 Start: 12-04-2021 End: 12-11-2021 take 1 capsule by mouth four times daily cephALEXin (KEFLEX) 500 mg capsule Indications: Acute cystitis with hematuria Take 1 capsule by mouth four times daily for 7 days. 28 capsule 0 12/04/2021 12/11/2021 Active Comment on above: Take 1 capsule by mo ut four times daily for 7 days. Take 1 capsule by [facility] twice daily for 10 days. 14 actuat fluticasone furoate 0.1 mg/actuat / vilanterol 0.025 mg/actuat dry powder inhaler (10 sources) Corticosteroid, beta2-Adrenergic Agonist Start: 01-22-20 End: 03-04-20 take 1 dose by inhalation once daily fluticasone-vilanterol (BREO ELLIPTA) 100-25 mcg/dose inhaler Inhale 1 Inhalation as instructed once daily. 1 Each 01/21/2023 03/04/2023 Discontinued Comment on above: Inhale 1 Inhalation as instructed once daily. fluticasone-umeclid in-vilanter (TRELEGY ELLIPTA) 200-62.5-25 mcg inhalation powder (20 sources) Start: 09-09-19 End: 06-24-19 take 1 puff(s) by inhalation once daily fluticasone-umeclidin- vilanter (TRELEGY ELLIPTA) 200-62.5-25 mcg inhalation powder Indications: 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 ([facility]) Inhale 1 Puff as instructed once daily. 1 Each 09/09/2023 06/24/2024 Discontinued Start: 09-09-2023 take 1 puff(s) by inhalation once daily vuzbojikhuj-rmclnmpzd-trbnngqu (TRELEGY ELLIPTA) 200-62.5-25 mcg inhalation powder Indications: 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 ([facility]) Inhale 1 Puff as instructed once daily. 1 Each 09/09/2023 Suspended Start: 09-09-2023 take 1 puff(s) by inhalation once daily wicypggliiy-ntrryfdsk-jefrnfif (TRELEGY ELLIPTA) 200-62.5-25 mcg inhalation powder Indications: 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) Inhale 1 Puff as instructed once daily. 1 Each 09/09/2023 Active Start: 03-04-2023 End: 09-09-2023 take 1 puff(s) by inhalation once daily qlrsjahgsgo-luvhhqvag-ebabksyc (TRELEGY ELLIPTA) 200-62.5-25 mcg inhalation powder Indications: 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) Inhale 1 Puff as instructed once daily. 1 Each 03/04/2023 09/09/2023 Discontinued Start: 03-04-2023 take 1 puff(s) by inhalation once daily dvrycmqxyre-sullqphld-ivvydfer (TRELEGY ELLIPTA) 200-62.5-25 mcg inhalation powder Indications: 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) Inhale 1 Puff as instructed once daily. 1 Each 03/04/2023 Active Comment on above: Inhale 1 Puff as ins tructed once daily. methylPREDNISolone (16 sources) Corticosteroid Start: 11-01-2022 End: 01-21-2023 methylPREDNISolone (MEDROL, ALEX,) 4 mg Dose-Pack As Instructed per package 21 tablet 0 11/01/2022 01/21/2023 Discontinued (Course of therapy completed) Start: 11-01-2022 methylPREDNISo lone (MEDROL, ALEX,) 4 mg Dose-Pack As Instructed per package 21 tablet 0 11/01/2022 Active Comment on above: As Instructed per pa idania mycophenolate mofetil 500 mg oral tablet (20 sources) Start: 09-16-19 End: 09-22-19 take 3 tablets by mouth twice daily mycophenolate Mofetil (CELLCEPT) 500 mg tablet Indications: Hypersensitivity pneumonitis (HCC) Take 3 tablets by mouth two times a day. 540 tablet 3 09/21/2024 09/30/2024 Discontinued Start: 05-25-2024 End: 10-04-2024 take 1 capsule by mouth twice daily, then take 2 capsules by mouth twice daily, then take 4 capsules by mouth twice daily, then take 6 capsules by mouth twice daily mycophenolate mofetil (CELLCEPT) 250 mg capsule Indications: Hypersensitivity pneumonitis (HCC) Take 1 capsule by mouth two times a day for 14 days, THEN 2 capsules two times a day for 14 days, THEN 4 capsules two times a day for 14 days, THEN 6 capsules two times a day. 1276 capsule 05/25/2024 09/15/2024 Discontinued omeprazole 40 mg delayed release oral capsule (20 sources) Proton Pump Inhibitor Start: 06-04-2022 take 1 capsule by mouth once daily omeprazole (PRILOSEC) 40 mg capsule Indications: Medication refill TAKE 1 CAPSULE BY MOUTH ONCE DAILY 90 capsule 1 06/04/2022 Active Start: 04-20-2021 End: 01-30-2022 take 1 capsule by mouth once daily omeprazole (PRILOSEC) 40 mg capsule Indications: Medication refill TAKE 1 CAPSULE BY MOUTH ONCE DAILY 30 capsule 3 01/30/2022 Active Omeprazole 40 MG Oral Capsule Delayed Release Refills: 0 Active Comment on above: TAKE 1 CAPSULE BY MO UT EVERY DAY Take 1 capsule by mo ut once daily. TAKE 1 CAPSULE BY MO UT ONCE DAILY One Daily Adults 50+ Oral Tablet (1 source) take 1 tablet by mouth once daily One Daily Adults 50+ Oral Tablet Refills: 0 Active perflutren lipid microspheres 1.3 mL in NaCl (PF) 0.9% 10 mL injection (DEFINITY) (20 sources) Start: 08-26-2024 End: 08-26-2024 perflutren lipid microspheres 1.3 mL in NaCl (PF) 0.9% 10 mL injection (DEFINITY) Start: 08-26-2024 End: 08-26-2024 take 1 dose intravenously once as needed INTRAVENOUS, DIRECTED NEEDED, 1 dose, Starting on Sat08/26/24 at 1221, Until Sat08/26/24 at 1243, Per Protocol - for use during ECHO procedure only, If no IV access, insert saline lock prior to administering contrast. Discontinue saline lock post exam. If patient has central line or IVAD, may access for administration according to line specific nursing protocol. Once exam is complete, flush line and de-access per line specific nursing protocol.Dilute 1.3 ml of Definity with 8.7 ml of preservative-free saline., Cardiac Procedure Med Orders Start: 02-12-2022 End: 05-14-2023 perflutren lipid microsphere s 1.3 mL in NaCl (PF) 0.9% 10 mL injection (DEFINITY) pravastatin sodium 20 mg oral tablet (20 sources) HMG-CoA Reductase Inhibitor Start: 05-02-2023 End: 07-22-2023 take 1 tablet by mouth once daily at bedtime pravastatin (PRAVACHOL) 20 mg tablet Indications: Mixed hyperlipidemia Take 1 tablet by mouth daily at bedtime. 30 tablet 11 05/02/2023 07/22/2023 Discontinued Start: 07-20-2022 End: 04-29-2023 take 1 tablet by mouth once daily at bedtime pravastatin (PRAVACHOL) 20 mg tablet Indications: Mixed hyperlipidemia Take 1 tablet by mouth daily at bedtime. 30 tablet 11 07/20/2022 04/29/2023 Discontinued Start: 07-05-2022 take 2 tablets by mo [facility] once daily at bedtime pravastatin (PRAVACHOL) 10 mg tablet Take 2 tablets by mouth daily at bedtime. 30 tablet 11 07/05/2022 Active Start: 06-04-2022 End: 07-05-2022 take 1 tablet by mouth once daily at bedtime pravastatin (PRAVACHOL) 10 mg tablet Take 1 tablet by mouth daily at bedtime. 30 tablet 11 06/04/2022 07/05/2022 Discontinued (Adjust Sig - Block E-Cancel) Comment on above: [facility] Take 2 tablets by mo [facility] daily at bedtime. psyllium 400 mg oral capsule (20 sources) End: 01-29-2024 psyllium husk (METAMUCIL) 0.4 gram cap Take by mouth. 01/29/2024 Discontinued (Discontinued by Patient) Comment on above: Take by mouth. regadenoson 0.4 mg injection (LEXISCAN) (1 source) Start: 06-19-2022 End: 06-19-2022 regadenoson 0.4 mg injection (LEXISCAN) 125 ml sodium chloride 9 mg/ml prefilled syringe (20 sources) Start: 08-26-2024 End: 08-26-2024 sodium chloride 0.9 % (flush) 10 mL (BD POSIFLUSH) Start: 08-26-2024 End: 08-26-2024 10 mL, INTRAVENOUS, DIREC JOHN NEEDED, 1 dose, Starting on Sat08/26/24 at 1221, Until Sat08/26/24 at 1243, Per Protocol - for use during ECHO procedure only, no IV access, insert saline lock prior to administering contrast. Discontinue saline lock post exam. If patient has central line or IVAD, may access for administration according to line specific nursing protocol. Once exam is complete, flush line and de-access per line specific nursing protocol., Cardiac Procedure Med Orders Start: 09-13-2022 End: 04-22-2024 sodium chloride 0.65 % nasal spray Indications: Postnasal drip Use 1 Jaffrey in the nose as needed. 50 mL 2 09/13/2022 04/22/2024 Discontinued Start: 02-12-2022 End: 05-14-2023 sodium chloride 0.9 % (flush ) 10 mL (BD POSIFLUSH) Comment on above: Use 1 Jaffrey in the n ose as needed. thiamine 100 mg oral tablet (20 sources) Start: 01-16-20 24 End: 04-30-20 24 take 1 tablet by mouth once daily thiamine (VITAMIN B1) 100 mg tablet Take 1 tablet by mouth once daily. 30 tablet 03/31/2024 04/22/2024 Discontinued (Discontinued by Patient) 30 actuat umeclidinium 0.0625 mg/actuat / vilanterol 0.025 mg/actuat dry powder inhaler (11 sources) Anticholinergic, beta2-Adrenergic Agonist Start: 11-21-19 23 End: 01-22-20 23 take 1 dose by inhalation once daily umeclidinium-vilante rol (ANORO ELLIPTA) 62.5-25 mcg/actuation inhaler Inhale 1 Inhalation as instructed once daily. 1 Each 5 11/20/2022 01/21/2023 Discontinued Comment on above: Inhale 1 Inhalation as instructed once daily. zinc gluconate 50 mg oral tablet (1 source) Zinc 50 MG Oral Tablet Refills: 0 Active Problems Active Problems Problem Classification Problem Date Documented Da te Episodic/Chronic Acquired foot deformities (2 sources) Hallux valgus (acquired), left foot; Translations: [Hallux valgus (acquired)] Onset: 5 08-28-2024 Chronic Administrative/social admission (13 sources) Repeated prescription; Translations: [Encounter for issue of repeat prescription] Onset: 5 Episodic Alcohol-related disorders (20 sources) Current drinker; Translations: [Alcohol use] Onset: 4 01-12-2024 Chronic Anxiety disorders (20 sources) Mixed anxiety and depressive disorder; Translations: [Anxiety disorder, unspecified] Onset: 2 Chronic Chronic obstructive pulmonary disease and bronchiectasis (20 sources) Mild chronic obstructive pulmonary disease; Translations: [Chronic obstructive pulmonary disease, unspecified] Onset: 4 11-20-2022 Chronic Conduction disorders (2 sources) First degree atrioventricular block; Translations: [Atrioventricular block, first degree] Chronic Congestive heart failure; nonhypertensive (20 sources) Congestive heart failure; Translations: [Heart failure, unspecified] Onset: 2 11-23-2021 Chronic Coronary atherosclerosis and other heart disease (20 sources) Coronary arteriosclerosis; Translations: [Atherosclerotic heart disease of ione coronary artery without angina pectoris] Onset: 2 11-23-2021 Chronic Disorders of lipid metabolism (20 sources) Mixed hyperlipidemia; Translations: [Mixed hyperlipidemia] Onset: 3 Chronic Esophageal disorders (20 sources) Gastroesophageal reflux disease; Translations: [Gastro-esophageal reflux disease without esophagitis] Onset: 4 04-23-2023 Chronic Essential hypertension (20 sources) Benign essential hypertension; Translations: [Benign essential hypertension] Onset: 1 05-24-2020 Chronic Genitourinary symptoms and ill-defined conditions (3 sources) Urinary symptoms ; Translations: [Unspecified symptoms and signs involving the genitourinary system] Episodic Headache; including migraine (1 source) Headache; Translations: [Post-traumatic headache, unspecified, not intractable] Episodic Hypertension with complications and secondary hypertension (1 source) Hypertensive heart disease with heart failure; Translations: [Hypertensive heart disease with heart failure] Onset: 5 Chronic Immunity disorders (20 sources) Patient immunocompromised; Translations: [Immunodeficiency, unspecified] Onset: 5 10-13-2024 Chronic Lung disease due to external agents (18 sources) Extrinsic allergic alveolitis; Translations: [Hypersensitivity pneumonitis due to unspecified organic dust] Onset: 4 04-22-2024 Chronic Mood disorders (1 source) Depressive disorder; Translations: [Depression, unspecified depression type] Chronic Mood disorders (1 source) Mood disorders; Translations: [Anxiety and depression] Onset: Occlusion or stenosis of precerebral arteries (20 sources) Bilateral stenosis of carotid arteries; Translations: [Occlusion and stenosis of bilateral carotid arteries] Onset: 3 01-29-2023 Chronic Open wounds of head; neck; and trunk (1 source) Scalp laceration; Translations: [Open wound of scalp, without mention of complication] 10-16-2021 Episodic Other aftercare (1 source) Surgical follow-up; Translations: [Encounter for removal of sutures] Episodic Other aftercare (2 sources) 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; Translations: [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)] 09-21-2024 Episodic Other aftercare (1 source) Taking high risk medication; Translations: [Other penitentiary (current) drug therapy] 09-21-2024 Episodic Other aftercare (1 source) Post-discharge follow-up; Translations: [Encounter for follow-up examination after completed treatment for conditions other than malignant neoplasm] 10-29-2024 Episodic Other aftercare (2 sources) Long-term current use of systemic steroid; Translations: [skilled nursing (current) use of systemic steroids] 10-29-2024 Episodic Other and ill-defined heart disease (20 sources) Dissection of coronary artery; Translations: [Coronary artery dissection] Onset: 3 08-11-2022 Chronic Other bone disease and musculoskeletal deformities (20 sources) History of amputation of right leg through tibia and fibula; Translations: [Acquired absence of right leg below knee] Onset: 1 10-22-2020 Chronic Other bone disease and musculoskeletal deformities (1 source) Acquired absence of right leg below knee; Translations: [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)] Onset: Chronic Other circulatory disease (1 source) Vasculitic neuropathy; Translations: [Arteritis, unspecified] Chronic Other circulatory disease (1 source) H/O: heart disorder; Translations: [Personal history of unspecified circulatory disease] Episodic Other circulatory disease (1 source) History of peripheral vascular disease; Translations: [Personal history of other diseases of circulatory system] Episodic Other connective tissue disease (1 source) Pain in left arm; Translations: [Pain in limb] Episodic Other connective tissue disease (1 source) Pain in left foot; Translations: [Pain in left foot] 12-07-2024 Episodic Other ear and sense organ disorders (1 source) Impacted cerumen of bilateral ears; Translations: [Impacted cerumen, bilateral] 09-03-2023 Episodic Other endocrine disorders (1 source) Hypoglycemia; Translations: [Hypoglycemia, unspecified] 09-10-2024 Chronic Other gastrointestinal disorders (2 sources) Diarrhea of presumed infectious origin; Translations: [Diarrhea, unspecified] 02-06-2023 Episodic Other gastrointestinal disorders (1 source) Occult blood in stools; Translations: [Other fecal abnormalities] 02-08-2023 Episodic Other gastrointestinal disorders (8 sources) Diarrhea; Translations: [Diarrhea, unspecified] 02-08-2023 Episodic Other gastrointestinal disorders (1 source) Constipation; Translations: [Constipation, unspecified] 04-23-2023 Episodic Other hereditary and degenerative nervous system conditions (20 sources) Essential tremor; Translations: [Essential tremor] Onset: 2 Chronic Other hereditary and degenerative nervous system conditions (1 source) Essential tremor; Translations: [Essential tremor] Onset: 4 Chronic Other inflammatory condition of skin (1 source) Itching ; Translations: [Pruritus, unspecified] 07-14-2024 Episodic Other injuries and conditions due to external causes (2 sources) Injury of right hand; Translations: [Unspecified injury of right wrist, hand and finger(s), initial encounter] 09-21-2024 Episodic Other lower respiratory disease (20 sources) Interstitial lung disease; Translations: [Interstitial pulmonary disease, unspecified] Onset: 4 11-20-2022 Chronic Other lower respiratory disease (2 sources) Idiopathic pulmonary fibrosis; Translations: [Idiopathic pulmonary fibrosis] 03-13-2024 Chronic Other lower respiratory disease (4 sources) Interstitial pulmonary disease, unspecified; Translations: [ILD (interstitial lung disease) (HCC)] Onset: 4 Chronic Other lower respiratory disease (1 source) Idiopathic pulmonary fibrosis; Translations: [Idiopathic pulmonary fibrosis (HCC)] Onset: 4 Chronic Other lower respiratory disease (1 source) Pulmonary fibrosis, unspecified; Translations: [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)] Onset: 4 Chronic Other lower respiratory disease (20 sources) Dyspnea on exertion; Translations: [Shortness of breath] Onset: 3 Resolved: 5 Episodic Other lower respiratory disease (6 sources) Multiple nodules of lung; Translations: [Other nonspecific abnormal finding of lung field] 11-20-2022 Episodic Other lower respiratory disease (5 sources) Wheezing; Translations: [Wheezing] 07-13-2024 Episodic Other nervous system disorders (20 sources) Neuropathy; Translations: [Polyneuropathy, unspecified] Onset: 2 11-23-2021 Chronic Other nervous system disorders (20 sources) Walking disability; Translations: [Difficulty in walking, not elsewhere classified] Onset: 3 09-18-2022 Chronic Other nervous system disorders (1 source) Difficulty in walking, not elsewhere classified; Translations: [Impaired ambulation] Onset: 3 Chronic Other nervous system disorders (1 source) Polyneuropathy, unspecified; Translations: [Neuropathy] Onset: 2 Chronic Other nervous system disorders (2 sources) Abnormal gait; Translations: [Unspecified abnormalities of gait and mobility] Episodic Other non-traumatic joint disorders (1 source) Pain in wrist; Translations: [Pain in joint, forearm] Episodic Other nutritional; endocrine; and metabolic disorders (20 sources) Obese class II; Translations: [Obesity, unspecified] Onset: 1 05-24-2020 Chronic Other nutritional; endocrine; and metabolic disorders (5 sources) Obesity caused by energy imbalance; Translations: [Other obesity due to excess calories] 11-20-2022 Chronic Other nutritional; endocrine; and metabolic disorders (1 source) Body mass index (BMI) 39.0-39.9, adult; Translations: [BMI 39.0-39.9,adult] Onset: 5 Chronic Other nutritional; endocrine; and metabolic disorders (1 source) Body mass index (BMI) 36.0-36.9, adult; Translations: [Class 2 obesity due to excess calories with body mass index (BMI) of 36.0 to 36.9 in adult, unspecified whether serious comorbidity present] Onset: 5 Chronic Other nutritional; endocrine; and metabolic disorders (1 source) Other obesity due to excess calories; Translations: [Class 2 obesity due to excess calories with body mass index (BMI) of 36.0 to 36.9 in adult, unspecified whether serious comorbidity present] Onset: 5 Chronic Other screening for suspected conditions (not mental disorders or infectious disease) (20 sources) Patient encounter status; Translations: [Encounter for screening for malignant neoplasm of colon] Onset: 4 Episodic Other skin disorders (1 source) Broken skin; Translations: [Other skin changes] Episodic Other skin disorders (3 sources) Swelling of hand; Translations: [Other specified soft tissue disorders] 09-21-2024 Episodic Peripheral and visceral atherosclerosis (20 sources) Peripheral vascular disease; Translations: [Peripheral vascular disease, unspecified] Onset: 1 05-24-2020 Chronic Pulmonary heart disease (4 sources) Pulmonary arterial hypertension; Translations: [Secondary pulmonary arterial hypertension] Onset: 5 03-27-2024 Chronic Residual codes; unclassified (11 sources) Insomnia; Translations: [Insomnia, unspecified] Episodic Residual codes; unclassified (1 source) At risk for impaired skin integrity ; Translations: [Other specified personal risk factors, not elsewhere classified] Episodic Residual codes; unclassified (1 source) History of clinical finding in subject; Translations: [Personal history of other medical treatment] Episodic Residual codes; unclassified (2 sources) Confusional state; Translations: [Disorientation, unspecified] 01-05-2025 Episodic Respiratory failure; insufficiency; arrest (adult) (20 sources) Chronic hypoxemic respiratory failure; Translations: [Chronic respiratory failure with hypoxia] Onset: 5 01-29-2024 Chronic Unclassified (2 sources) FALL AND HEAD TRAUMA 10-15-2021 Comment on above: FALL AND HEAD TRAUMA Unclassified (1 source) Scalp laceration, initial encounter 10-16-2021 Unclassified (1 source) New Onset: 5 Unclassified (1 source) 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); Translations: [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)] Onset: 5 Unclassified (1 source) Class 2 obesity due to excess calories with body mass index (BMI) of 36.0 to 36.9 in adult, unspecified whether serious comorbidity present; Translations: [Class 2 obesity due to excess calories with body mass index (BMI) of 36.0 to 36.9 in adult, unspecified whether serious comorbidity present] Onset: 5 Urinary tract infections (3 sources) Recurrent urinary tract infection; Translations: [Urinary tract infection, site not specified] Episodic Past or Other Problems Problem Classification Problem Date Documented Da te Episodic/Chronic Abdominal hernia (20 sources) Unspecified abdominal hernia without obstruction or gangrene; Translations: [History of Hernia] Onset: 11-23-2021 11-23-2021 Episodic Acute and unspecified renal failure (20 sources) Acute renal failure syndrome; Translations: [Acute kidney failure, unspecified] Onset: 08-10-2022 Resolved: 01-16-2024 08-11-2022 Episodic Acute cerebrovascular disease (20 sources) Cerebrovascular accident; Translations: [Cerebral infarction, unspecified] Onset: 11-23-2021 Resolved: 11-20-2022 11-23-2021 Chronic Chronic ulcer of skin (20 sources) Pressure ulcer of buttock stage 2; Translations: [Pressure ulcer of right buttock, stage 2] Onset: 02-01-2022 Resolved: 09-18-2023 Chronic Coronary atherosclerosis and other heart disease (20 sources) Patient post percutaneous transluminal coronary angioplasty; Translations: [Coronary angioplasty status] Onset: 08-08-2022 08-11-2022 Episodic Diabetes mellitus without complication (20 sources) Impaired fasting glycemia; Translations: [Impaired fasting glucose] Onset: 06-04-2022 Episodic E Codes: Adverse effects of medical drugs (1 source) Adverse effect of glucocorticoids and synthetic analogues, initial encounter; Translations: [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)] Onset: 09-21-2024 Episodic E Codes: Fall (20 sources) Fall in home; Translations: [Unspecified fall, initial encounter] Onset: 01-12-2024 Resolved: 10-12-2024 Episodic Fever of unknown origin (20 sources) Fever; Translations: [Fever, unspecified] Onset: 10-12-2024 Resolved: 10-15-2024 10-13-2024 Episodic Fluid and electrolyte disorders (20 sources) Hyponatremia; Translations: [Hypo-osmolality and hyponatremia] Onset: 06-04-2022 Episodic Fracture of upper limb (5 sources) Closed fracture of distal end of radius; Translations: [Other closed fractures of distal end of radius (alone)] Onset: 10-21-2024 10-06-2024 Episodic Gastrointestinal hemorrhage (20 sources) Melena; Translations: [Melena] Onset: 06-20-2023 02-05-2023 Episodic Immunizations and screening for infectious disease (4 sources) Viral screening status; Translations: [Encounter for screening for other viral diseases] Onset: 03-30-2024 Episodic Infective arthritis and osteomyelitis (except that caused by tuberculosis or sexually transmitted disease) (20 sources) Osteomyelitis of ankle AND/OR foot; Translations: [Osteomyelitis, unspecified] Onset: 11-23-2021 Resolved: 09-18-2023 11-23-2021 Chronic Malaise and fatigue (20 sources) Asthenia; Translations: [Weakness] Onset: 01-12-2024 Resolved: 10-12-2024 01-13-2024 Episodic Mycoses (6 sources) Onychomycosis; Translations: [Tinea unguium] Onset: 12-07-2024 08-29-2023 Episodic Nausea and vomiting (1 source) Nausea with vomiting, unspecified; Translations: [Nausea and vomiting, unspecified vomiting type] Onset: 10-12-2024 Episodic Nonspecific chest pain (20 sources) Chest pain; Translations: [Chest pain, unspecified] Onset: 02-01-2022 Resolved: 10-12-2024 Episodic Other aftercare (2 sources) Other penitentiary (current) drug therapy; Translations: [High risk medication use] Onset: 09-21-2024 Episodic Other aftercare (2 sources) 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; Translations: [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] Onset: 09-21-2024 Episodic Other aftercare (1 source) Encounter for follow-up examination after completed treatment for conditions other than malignant neoplasm; Translations: [Hospital discharge follow-up] Onset: 10-29-2024 Episodic Other connective tissue disease (1 source) Other specified soft tissue disorders; Translations: [Swelling of right hand] Onset: 09-21-2024 Episodic Other connective tissue disease (1 source) Pain in left foot; Translations: [Left foot pain] Onset: 12-07-2024 Episodic Other inflammatory condition of skin (2 sources) Pruritus, unspecified; Translations: [Itching] Onset: 07-14-2024 Episodic Other injuries and conditions due to external causes (1 source) Unspecified injury of right wrist, hand and finger(s), initial encounter; Translations: [Hand injury, right, initial encounter] Onset: 09-21-2024 Episodic Other lower respiratory disease (20 sources) Dyspnea; Translations: [Shortness of breath] Onset: 02-15-2022 Resolved: 10-12-2024 Episodic Other lower respiratory disease (20 sources) Nodule of lung; Translations: [Solitary pulmonary nodule] Onset: 09-16-2022 Episodic Other lower respiratory disease (1 source) Shortness of breath; Translations: [SOB (shortness of breath) on exertion] Onset: 11-10-2024 Episodic Other lower respiratory disease (1 source) Wheezing; Translations: [Wheezing] Onset: 07-14-2024 Episodic Other upper respiratory infections (20 sources) Posterior rhinorrhea; Translations: [Postnasal drip] Onset: 09-16-2022 Episodic Pneumonia (except that caused by tuberculosis or sexually transmitted disease) (20 sources) Community acquired pneumonia; Translations: [Unspecified bacterial pneumonia] Onset: 10-15-2024 Resolved: 10-15-2024 07-28-2024 Episodic Residual codes; unclassified (20 sources) Current drinker; Translations: [Other specified health status] Onset: 01-12-2024 01-12-2024 Episodic Residual codes; unclassified (1 source) Disorientation, unspecified; Translations: [Confusion] Onset: 09-24-2024 Episodic Respiratory failure; insufficiency; arrest (adult) (20 sources) Acute respiratory failure; Translations: [Acute respiratory failure with hypoxia] Onset: 01-11-2024 Resolved: 01-16-2024 01-11-2024 Episodic Screening and history of mental health and substance abuse codes (20 sources) Ex-smoker; Translations: [Personal history of nicotine dependence] Onset: 10-13-2024 10-13-2024 Episodic Septicemia (except in labor) (20 sources) Sepsis; Translations: [Sepsis, unspecified organism] Onset: 10-12-2024 Resolved: 01-10-2025 10-12-2024 Episodic Spondylosis; intervertebral disc disorders; other back problems (20 sources) Chronic back pain ; Translations: [Dorsalgia, unspecified] Onset: 05-24-2020 05-24-2020 Episodic Unclassified (1 source) Injury of right hand 09-21-2024 Viral infection (2 sources) Herpes zoster; Translations: [Zoster without complications] Onset: 09-21-2024 09-21-2024 Episodic NEGATED: Highlighted row has not occurred!Residual codes; unclassified (2 sources) Disease Episodic Results Test Name Value Interpretation Reference Range Facility CNOVon 03-15-2025 CNOV Normal [facility] CBC W Auto Differential pane l (Bld)on 03-11-2025 Basophils (Bld) [#/Vol] 10*3/uL Normal <0.11 [facility] Comment on above: Order Comment: Elgin egan Type: BLOOD SPECIMENOrdering Facility: External Submitter Address: , , Performed By: #### 5 7021-8 ####[facility] [id number] [address] [place] [facility] Basophils/100 WBC (Bld) 0.2 % Normal [facility] Comment on above: Order Comment: Elgin egan Type: BLOOD SPECIMENOrdering Facility: External Submitter Address: , , Performed By: #### 5 7021-8 ####[facility] [id number] [address] [place] Differential cell count method Nom (Bld) Auto Normal [facility] Comment on above: Order Comment: Elgin egan Type: BLOOD SPECIMENOrdering Facility: External Submitter Address: , , Performed By: #### 5 7021-8 ####[facility] [id number] [place] [address] [place] Eosinophils (Bld) [#/Vol] 0.12 10*3/uL Normal <0.46 [facility] Comment on above: Order Comment: Speci men Type: BLOOD SPECIMENOrdering Facility: External Submitter Address: , , Performed By: #### 5 7021-8 ####[facility] [id number] [address] Eosinophils/100 WBC (Bld) 1.3 % Normal [facility] Comment on above: Order Comment: Speci men Type: BLOOD SPECIMENOrdering Facility: External Submitter Address: , , Performed By: #### 5 7021-8 ####[facility] [id number] [address] Erythrocyte distribution width (RBC) [Ratio] 13.7 % Normal 11.5-15.0 [facility] Comment on above: Order Comment: Speci men Type: BLOOD SPECIMENOrdering Facility: External Submitter Address: , , Performed By: #### 5 7021-8 ####[facility] [id number] [address] Hematocrit (Bld) [Volume fraction] 35.6 % Low 39.0-51.0 [facility] Comment on above: Order Comment: Speci men Type: BLOOD SPECIMENOrdering Facility: External Submitter Address: , , Performed By: #### 5 7021-8 ####[facility] [id number] [address] [place] [facility] Hemoglobin (Bld) [Mass/Vol] 10.9 g/dL Low 13.0-17.0 [facility] Comment on above: Order Comment: Speci men Type: BLOOD SPECIMENOrdering Facility: External Submitter Address: , , Performed By: #### 5 7021-8 ####[facility] [id number] [address] Immature granulocytes (Bld) [#/Vol] 0.04 10*3/uL Normal <0.10 [facility] Comment on above: Order Comment: Speci men Type: BLOOD SPECIMENOrdering Facility: External Submitter Address: , , Performed By: #### 5 7021-8 ####[facility] [id number] [address] Immature granulocytes/100 WBC (Bld) 0.4 % Normal [facility] Comment on above: Order Comment: Speci men Type: BLOOD SPECIMENOrdering Facility: External Submitter Address: , , Performed By: #### 5 7021-8 ####[facility] [id number] [address] Lymphocytes (Bld) [#/Vol] 0.81 10*3/uL Low 1.00-4.00 [facility] Comment on above: Order Comment: Speci men Type: BLOOD SPECIMENOrdering Facility: External Submitter Address: , , Performed By: #### 5 7021-8 ####[facility] [id number] [address] Lymphocytes/100 WBC (Bld) 8.8 % Normal [facility] Comment on above: Order Comment: Speci men Type: BLOOD SPECIMENOrdering Facility: External Submitter Address: , , Performed By: #### 5 7021-8 ####[facility] [id number] [address] MCH (RBC) [Entitic mass] 26.5 pg Normal 26.0-34.0 [facility] Comment on above: Order Comment: Speci men Type: BLOOD SPECIMENOrdering Facility: External Submitter Address: , , Performed By: #### 5 7021-8 ####[facility] [id number] [address] MCHC (RBC) [Mass/Vol] 30.6 g/dL Normal 30.5-36.0 [facility] Comment on above: Order Comment: Speci men Type: BLOOD SPECIMENOrdering Facility: External Submitter Address: , , Performed By: #### 5 7021-8 ####[facility] [id number] [address] [place] MCV (RBC) [Entitic vol] 86.4 fL Normal 80.0-100.0 [facility] Comment on above: Order Comment: Speci men Type: BLOOD SPECIMENOrdering Facility: External Submitter Address: , , Performed By: #### 5 7021-8 ####[facility] [id number] [place] [address] [place] Monocytes (Bld) [#/Vol] 0.96 10*3/uL High <0.87 [facility] Comment on above: Order Comment: Speci men Type: BLOOD SPECIMENOrdering Facility: External Submitter Address: , , Performed By: #### 5 7021-8 ####[facility] [id number] [address] [place] [facility] Monocytes/100 WBC (Bld) 10.4 % Normal [facility] Comment on above: Order Comment: Speci men Type: BLOOD SPECIMENOrdering Facility: External Submitter Address: , , Performed By: #### 5 7021-8 ####[facility] [id number] [address] [place] Neutrophils (Bld) [#/Vol] 7.30 10*3/uL Normal 1.45-7.50 [facility] Comment on above: Order Comment: Speci men Type: BLOOD SPECIMENOrdering Facility: External Submitter Address: , , Performed By: #### 5 7021-8 ####[facility] [id number] [address] [place] Neutrophils/100 WBC (Bld) 78.9 % Normal [facility] Comment on above: Order Comment: Speci men Type: BLOOD SPECIMENOrdering Facility: External Submitter Address: , , Performed By: #### 5 7021-8 ####[facility] [id number] [place] [address] [place] Nucleated RBC (Bld) [#/Vol] 10*3/uL Normal <0.01 [facility] Comment on above: Order Comment: Speci men Type: BLOOD SPECIMENOrdering Facility: External Submitter Address: , , Performed By: #### 5 7021-8 ####[facility] [id number] [address] [place] [facility] Nucleated RBC/100 WBC (Bld) [Ratio] 0.0 /100 WBC Normal [facility] Comment on above: Order Comment: Speci men Type: BLOOD SPECIMENOrdering Facility: External Submitter Address: , , Performed By: #### 5 7021-8 ####[facility] [id number] [address] [place] [facility] Platelet mean volume (Bld) [Entitic vol] 10.1 fL Normal 9.0-12.7 [facility] Comment on above: Order Comment: Speci men Type: BLOOD SPECIMENOrdering Facility: External Submitter Address: , , Performed By: #### 5 7021-8 ####[facility] [id number] [address] [place] Platelets (Bld) [#/Vol] 232 10*3/uL Normal 150-400 [facility] Comment on above: Order Comment: Speci men Type: BLOOD SPECIMENOrdering Facility: External Submitter Address: , , Performed By: #### 5 7021-8 ####[facility] [id number] [address] [place] RBC (Bld) [#/Vol] 4.12 10*6/uL Low 4.20-6.00 [facility] Comment on above: Order Comment: Speci men Type: BLOOD SPECIMENOrdering Facility: External Submitter Address: , , Performed By: #### 5 7021-8 ####[facility] [id number] [address] [place] WBC (Bld) [#/Vol] 9.25 10*3/uL Normal 3.70-11.00 [facility] Comment on above: Order Comment: Speci men Type: BLOOD SPECIMENOrdering Facility: External Submitter Address: , , Performed By: #### 5 7021-8 ####[facility]CL[facility] [id number] [address] [facility] Comprehensive metabolic 2000 panelon 03-11-2025 Albumin [Mass/Vol] 3.8 g/dL Low 3.9-4.9 [facility] Comment on above: Order Comment: Speci men Type: BLOOD SPECIMENOrdering Facility: External Submitter Address: , , Performed By: #### 2 4323-8 ####[facility] LABCLIA [id number] [address] [place] [facility] ALP [Catalytic activity/Vol] 55 U/L Normal 38-113 [facility] Comment on above: Order Comment: Speci men Type: BLOOD SPECIMENOrdering Facility: External Submitter Address: , , Performed By: #### 2 4323-8 ####[facility]CLIA [id number] [address] [facility] ALT [Catalytic activity/Vol] 16 U/L Normal 10-54 [facility] Comment on above: Order Comment: Speci men Type: BLOOD SPECIMENOrdering Facility: External Submitter Address: , , Performed By: #### 2 4323-8 ####[facility]CLIA [id number] [address] [facility] Anion gap [Moles/Vol] 11 mmol/L Normal 8-15 [facility] Comment on above: Order Comment: Speci men Type: BLOOD SPECIMENOrdering Facility: External Submitter Address: , , Performed By: #### 2 4323-8 ####[facility]CLIA [id number] [address] [place] [facility] AST [Catalytic activity/Vol] 23 U/L Normal 14-40 [facility] Comment on above: Order Comment: Speci men Type: BLOOD SPECIMENOrdering Facility: External Submitter Address: , , Performed By: #### 2 4323-8 ####[facility]CLIA [id number] [place] [address] [place] Bilirubin [Mass/Vol] 0.3 mg/dL Normal 0.2-1.3 [facility] Comment on above: Order Comment: Speci men Type: BLOOD SPECIMENOrdering Facility: External Submitter Address: , , Performed By: #### 2 4323-8 ####[facility] LABCLIA [id number] [place] [address] [place] Calcium [Mass/Vol] 9.0 mg/dL Normal 8.5-10.2 [facility] Comment on above: Order Comment: Speci men Type: BLOOD SPECIMENOrdering Facility: External Submitter Address: , , Performed By: #### 2 4323-8 ####[facility] LABIA [id number] [place] [address] [place] Chloride [Moles/Vol] 94 mmol/L Low 98-107 [facility] Comment on above: Order Comment: Speci men Type: BLOOD SPECIMENOrdering Facility: External Submitter Address: , , Performed By: #### 2 4323-8 ####[facility]CLIA [id number] [place] [address] [place] CO2 [Moles/Vol] 25 mmol/L Normal 22-30 [facility] Comment on above: Order Comment: Speci men Type: BLOOD SPECIMENOrdering Facility: External Submitter Address: , , Performed By: #### 2 4323-8 ####[facility]CLIA [id number] [place] [address] [place] Creatinine [Mass/Vol] 1.02 mg/dL Normal 0.73-1.22 [facility] Comment on above: Order Comment: Speci men Type: BLOOD SPECIMENOrdering Facility: External Submitter Address: , , Performed By: #### 2 4323-8 ####[facility] LABCLIA [id number] [place] [id number] [place] eGFRcr SerPlBld CKD-EPI 2020 79 mL/min/1.73m??? Normal >=60 [facility] Comment on above: Order Comment: Elgin egan Type: BLOOD SPECIMENOrdering Facility: External Submitter Address: , , Result Comment: Tamika mated Glomerular Filtration Rate (eGFR) is calculated using the 2020 CKD-EPI creatinine equation. This equation utilizes serum creatinine, sex, and age as parameters. The creatinine assay has traceable calibration to isotope dilution-mass spectrometry. Refer to KDIGO guidelines for clinical interpretation. In patients with unstable renal function, e.g. those with acute kidney injury, the eGFR may not accurately reflect actual GFR. Performed By: #### 2 4323-8 ####[facility]CLIA [id number] [place] [id number] [place] Glucose [Mass/Vol] 119 mg/dL High 74-99 [facility] Comment on above: Order Comment: Elgin egan Type: BLOOD SPECIMENOrdering Facility: External Submitter Address: , , Result Comment: The [place] Diabetes Association (ADA) provides guidance for cutoff values for fasting glucose and random glucose. The ADA defines fasting as no caloric intake for at least 8 hours. Fasting plasma glucose results between 100 to 125 mg/dL indicate increased risk for diabetes (prediabetes).Fasting plasma glucose results greater than or equal to 126 mg/dL meet the criteria for diagnosis of diabetes. In the absence of unequivocal hyperglycemia, results should be confirmed by repeat testing. In a patient with classic symptoms of hyperglycemia or hyperglycemic crisis, random plasma glucose results greater than or equal to 200 mg/dL meet the criteria for diagnosis of diabetes.Reference: Standards of Medical Care in Diabetes 2016, [place] Diabetes Association. Diabetes Care. 2016.39(Suppl 1). Performed By: #### 2 4323-8 ####[facility] LABIA [id number] [place] [id number] [place] Potassium [Moles/Vol] 4.3 mmol/L Normal 3.7-5.1 [facility] Comment on above: Order Comment: Elgin egan Type: BLOOD SPECIMENOrdering Facility: External Submitter Address: , , Performed By: #### 2 4323-8 ####[facility]CLIA [id number] [address] Protein [Mass/Vol] 6.6 g/dL Normal 6.3-8.0 [facility] Comment on above: Order Comment: Speci men Type: BLOOD SPECIMENOrdering Facility: External Submitter Address: , , Performed By: #### 2 4323-8 ####[facility]CLIA [id number] [address] Sodium [Moles/Vol] 130 mmol/L Low 136-144 [facility] Comment on above: Order Comment: Speci men Type: BLOOD SPECIMENOrdering Facility: External Submitter Address: , , Performed By: #### 2 4323-8 ####[facility] LABIA [id number] [address] Urea nitrogen [Mass/Vol] 8 mg/dL Low 9-24 [facility] Comment on above: Order Comment: Speci men Type: BLOOD SPECIMENOrdering Facility: External Submitter Address: , , Performed By: #### 2 4323-8 ####[facility]CLIA [id number] [address] [facility] CNPNon 03-02-2025 CNPN Normal [facility] MARS PETERSON ([id number]) 1955 M DEF Date Time Provider Department 03/01/25 AL[facility] GILL During your visit today, we recorded the following information about you: Priya Pedersen MA 03/01/2025 7:47 AM Signed Form received from [facility] medical placed in signing VANNA Moe Julie, MA 03/02/2025 7:20 AM Signed Faxed Priya Pedersen MA Allergies As of Date: 03/01/2025 Noted Allergy Reaction ANIMAL DANDER 08/21/2022 14 - Other: See Comments Comments: Anything with fur SEASONAL ALLERGIES 08/21/2022 14 - Other: See Comments Comments: Stuffy nose, headaches Date Reviewed: 02/17/2025 Reviewed by: Shelby Flores MA - Fully Assessed Reason for Visit: Electronic Communication [890] Forms [913] Prescriptions as of 03/02/2025 - mycophenolate Mofetil (CELLCEPT) 500 mg tablet Take 1 tablet by mouth two times a day for 14 days, THEN 2 tablets two times a day. - clopidogrel (PLAVIX) 75 mg tablet TAKE 1 TABLET BY MOUTH EVERY DAY - escitalopram oxalate (LEXAPRO) 20 mg tablet TAKE 1 TABLET BY MOUTH EVERY DAY - budesonide (PULMICORT) 0.5 mg/2 mL nebulizer solution Use 2 mL via nebulizer two times a day. - metoprolol succinate ER (TOPROL XL) 25 mg 24 hr tablet TAKE 1 TABLET BY MOUTH EVERY DAY - pantoprazole DR (PROTONIX) 40 mg tablet TAKE 1 TABLET BY MOUTH EVERY DAY - predniSONE (DELTASONE) 5 mg tablet Take 1 tablet by mouth once daily. - guaiFENesin (MUCINEX) 600 mg 12 hr tablet Take 1 tablet by mouth two times a day. - colestipol (COLESTID) 1 gram tablet Take 1 tablet by mouth two times a day. - acyclovir (ZOVIRAX) 400 mg tablet TAKE 1 TABLET BY MOUTH EVERY DAY - traZODone (DESYREL) 100 mg tablet TAKE 2 TABLETS BY MOUTH EVERY DAY AT BEDTIME - isosorbide mononitrate ER (IMDUR) 30 mg 24 hr tablet Take 1 tablet by mouth once daily. - gabapentin (NEURONTIN) 300 mg capsule TAKE 2 CAPSULES BY MOUTH EVERY MORNING AND 3 CAPSULES AT BEDTIME FOR 30 DAYS. Strength: 300 mg - hydrOXYzine HCl (ATARAX) 25 mg tablet Take 2 tablets by mouth two times a day. - ipratropium-albuterol (DUONEB) 0.5 mg-3 mg(2.5 mg base)/3 mL nebu Inhale 3 mL as instructed every 4 hours while awake. - rosuvastatin (CRESTOR) 20 mg tablet Take 1 tablet by mouth daily at bedtime. - lisinopril 2.5 mg tablet Take 1 tablet by mouth two times a day. Hold if SBP less than 110 - ezetimibe (ZETIA) 10 mg tablet Take 1 tablet by mouth once daily. - furosemide (LASIX) 40 mg tablet Take 1 tablet by mouth three times a week. - OXYGEN, HOME THERAPY, 3 L/min by Nasal Cannula route as directed. - fluticasone (FLONASE) 50 mcg/actuation nasal spray spray 1 spray into each nostril every day - nitroglycerin sublingual (NITROSTAT) 0.4 mg SL tablet Dissolve 1 tablet under the tongue every 5 minutes as needed for chest pain. - albuterol sulfate 90 mcg/actuation aebs Inhale 1-2 Puffs as instructed every 4 hours as needed for wheezing/shortness of breath. - Lactobacillus acidophilus (PROBIOTIC) 10 billion cell cap Take 1 capsule by mouth once daily. - acetaminophen (TYLENOL EXTRA STRENGTH) 500 mg tablet Take 2 tablets by mouth every 8 hours as needed for pain. FOR PAIN. - Zinc 50 mg tab Take 50 mg by mouth once daily. - aspirin, enteric coated (ASPIRIN, ENTERIC COATED) 81 mg EC tablet Take 81 mg by mouth once daily. - multivit-min/folic/vit K/lycop (ONE-A-DAY MEN'S MULTIVITAMIN ORAL) Take by mouth once daily. 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9] 08/10/2022 01/16/2024 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 Normal [facility] Basic metabolic 2000 panelon 02-25-2025 Anion gap [Moles/Vol] 10 mmol/L Normal 8-15 [facility] Comment on above: Order Comment: Speci men Type: BLOOD SPECIMENOrdering Facility: External Submitter Address: , , Performed By: #### 2 4321-2 ####[facility] LABCLIA [id number] [place] [address] [place] Calcium [Mass/Vol] 8.8 mg/dL Normal 8.5-10.2 [facility] Comment on above: Order Comment: Speci men Type: BLOOD SPECIMENOrdering Facility: External Submitter Address: , , Performed By: #### 2 4321-2 ####[facility] LABCLIA [id number] [place] [address] [place] Chloride [Moles/Vol] 93 mmol/L Low 98-107 [facility] Comment on above: Order Comment: Speci men Type: BLOOD SPECIMENOrdering Facility: External Submitter Address: , , Performed By: #### 2 4321-2 ####[facility] LABCLIA [id number] [place] [address] [place] CO2 [Moles/Vol] 25 mmol/L Normal 22-30 [facility] Comment on above: Order Comment: Speci men Type: BLOOD SPECIMENOrdering Facility: External Submitter Address: , , Performed By: #### 2 4321-2 ####[facility] LABCLIA [id number] [place] [address] [place] Creatinine [Mass/Vol] 0.99 mg/dL Normal 0.73-1.22 [facility] Comment on above: Order Comment: Speci men Type: BLOOD SPECIMENOrdering Facility: External Submitter Address: , , Performed By: #### 2 4321-2 ####[facility] LABCLIA [id number] [place] [address] [place] eGFRcr SerPlBld CKD-EPI 2020 81 mL/min/1.73m??? Normal >=60 [facility] Comment on above: Order Comment: Speci men Type: BLOOD SPECIMENOrdering Facility: External Submitter Address: , , Result Comment: Tamika mated Glomerular Filtration Rate (eGFR) is calculated using the 2020 CKD-EPI creatinine equation. This equation utilizes serum creatinine, sex, and age as parameters. The creatinine assay has traceable calibration to isotope dilution-mass spectrometry. Refer to KDIGO guidelines for clinical interpretation. In patients with unstable renal function, e.g. those with acute kidney injury, the eGFR may not accurately reflect actual GFR. Performed By: #### 2 4321-2 ####[facility] LABCLIA [id number] [place] [id number] [place] Glucose [Mass/Vol] 61 mg/dL Low 74-99 [facility] Comment on above: Order Comment: Elgin egan Type: BLOOD SPECIMENOrdering Facility: External Submitter Address: , , Result Comment: The [place] Diabetes Association (ADA) provides guidance for cutoff values for fasting glucose and random glucose. The ADA defines fasting as no caloric intake for at least 8 hours. Fasting plasma glucose results between 100 to 125 mg/dL indicate increased risk for diabetes (prediabetes).Fasting plasma glucose results greater than or equal to 126 mg/dL meet the criteria for diagnosis of diabetes. In the absence of unequivocal hyperglycemia, results should be confirmed by repeat testing. In a patient with classic symptoms of hyperglycemia or hyperglycemic crisis, random plasma glucose results greater than or equal to 200 mg/dL meet the criteria for diagnosis of diabetes.Reference: Standards of Medical Care in Diabetes 2016, [place] [employer]. Diabetes Care. 2016.39(Suppl 1). Performed By: #### 2 4321-2 ####[facility] LABCLIA [id number] [place] [address] [place] Potassium [Moles/Vol] 4.5 mmol/L Normal 3.7-5.1 [facility] Comment on above: Order Comment: Elgin egan Type: BLOOD SPECIMENOrdering Facility: External Submitter Address: , , Performed By: #### 2 432-2 ####[facility] LABCLIA [id number] [place] [address] [place] Sodium [Moles/Vol] 128 mmol/L Low 136-144 [facility] Comment on above: Order Comment: Elgin egan Type: BLOOD SPECIMENOrdering Facility: External Submitter Address: , , Performed By: #### 2 4321-2 ####[facility] LABCLIA [id number] [place] [id number] [place] Urea nitrogen [Mass/Vol] 9 mg/dL Normal 9-24 [facility] Comment on above: Order Comment: Elgin egan Type: BLOOD SPECIMENOrdering Facility: External Submitter Address: , , Performed By: #### 2 4321-2 ####[facility] LABCLIA [id number] [place] [address] [place] HbA1c (Bld)on 02-25-2025 Average glucose Estimated from glycated hemoglobin (Bld) [Mass/Vol] 114 mg/dL Normal [facility] Comment on above: Order Comment: Elgin egan Type: BLOOD SPECIMENOrdering Facility: External Submitter Address: , , Result Comment: eAG: (Estimated average glucose) is a calculated value from HgbA1c and is sales promotion representative of the average blood glucose level in the last 2-3 month period. Performed By: #### 5 5454-3 ####[facility] LABCLIA [id number] [place] [address] [facility] HbA1c (Bld) [Mass fraction] 5.6 % Normal 4.3-5.6 [facility] Comment on above: Order Comment: Elgin egan Type: BLOOD SPECIMENOrdering Facility: External Submitter Address: , , Result Comment: [place] Diabetes Association guidelines indicate that patients with HgbA1c in the range 5.7-6.4% are at increased risk for development of diabetes, and intervention by lifestyle modification may be beneficial. HgbA1c greater or equal to 6.5% is considered diagnostic of diabetes. Performed By: #### 5 5454-3 ####[facility] LABCLIA [id number] [place] [address] [facility] CNOVon 02-17-2025 CNOV Normal [facility] LUNG DIFFUSION CAPACITY (KAMRON O)on 02-17-2025 LUNG DIFFUSION CAPACITY (DLCO) Normal [facility] SPIROMETRY BASELINE ONLYon 1 SPIROMETRY BASELINE ONLY Normal [facility] CNOVon 02-11-2025 CNOV Office Visit (AGSANIYA ROJAS) ----- MARS PETERSON ([id number]) 1955 M DEF Date Time Provider Department 02/11/25 1:40 PM ALMA GILL During your visit today, we recorded the following information about you: Temperature Pulse Respiration Blood pressure 97.7 degrees 85/minute 19/minute 122/56 Weight Height 131.5 kg 1.829 m Alma Gill APRN.CNP 02/15/2025 11:45 AM Signed CHIEF COMPLAINT: The patient is a 69-year-old male with ILD, chronic respiratory failure, chronic GERD, CHF, CAD, HTN, HPL presenting for evaluation of persistent productive cough. I reviewed past medical, surgical, social, and family histories today and updated chart. Allergies, chronic medications, and supplements were also reviewed. His is present with him today.Recording using [employer] software for draft documentation of the visit was discussed with the patient/authorized sales promotion representative; all questions welcomed and answered. Patient/authorized sales promotion representative agreed to proceed Pulmonary Fibrosis: - Recent approval for Ofev, not yet started. - Previous medication caused hospitalization; discontinued. - Recent CT scan performed today. - Follow-up with Dr. Simon scheduled next week. - Persistent productive cough with thick, "gummy" sputum x7 days. - Completed course of Levaquin with no perceived improvement. - Denies fevers, chills, or night sweats. - Using Pulmicort nebulizer, DuoNeb, and albuterol. - He stopped taking Mucinex. - Reports increased dyspnea, especially with minimal activity. Weight Gain: - Gained approximately 25 lbs since November. - Increased appetite, frequently eating snacks such as bananas, saltine crackers, Sniders Puffs, and ice cream. - He also stopped taking his furosemide, previously taken 3 times a week. Primarily because he was urinating "too much". Musculoskeletal Pain: - Reports pain in shoulders, neck, and hips. - Limited mobility, primarily moving to use the bathroom. - Occasionally washes dishes but reports dyspnea with activity. They are inquiring about an electric wheelchair for him OV 11/11/24: John Peterson is a 69-year-old male with a history of interstitial lung disease, presenting for follow-up after recent hospitalization for pneumonia and sepsis, accompanied by his who is providing history on his behalf. I reviewed past medical, surgical, social, and family histories today and updated chart. Allergies, chronic medications, and supplements were also reviewed. Recording using [employer] software for draft documentation of the visit was discussed with the patient/authorized sales promotion representative; all questions welcomed and answered. Patient/authorized sales promotion representative agreed to proceed Pneumonia and Sepsis: - Recent hospitalization for pneumonia and sepsis, with a 4-day stay. - reports that the diagnosis of pneumonia and sepsis was not communicated until the day of discharge. - Hospitalization also involved treatment for colitis. - Discharged with Bactrim - Scheduled to see Dr. Simon tomorrow. Interstitial Lung Disease: - History of interstitial lung disease. - Awaiting approval for CellCept. - Reports increased dyspnea since returning home. - Scheduled for pulmonary function testing tomorrow. Tremors: - Notable tremors, reportedly worsening. - Family history of essential tremors in John's mother. Boxer's Fracture: - Recent boxer's fracture with right hand, previously in a cast, now removed. - Experiencing some swelling; using a stress ball for rehabilitation. Chronic Diarrhea: - Chronic diarrhea, reportedly managed with medication. - Previously on Metamucil, but discontinued due to worsening symptoms. - Consumes a diet high in bananas. HOSPITAL COURSE: Mars Peterson is a 69 year old male presented with past medical history of r diastolic heart failure, interstitial lung disease on 3 L of oxygen chronically, hypertension, CAD s/p CABG x 4, HILARIO, PVD s/p right BKA, anxiety/depression, hyperlipidemia, and hyponatremia who presents with feeling unwell. Patient states that his ill feelings started yesterday morning when he awoke suddenly at approximately 3 AM. At that time, he states that he was shaking but was able to fall back asleep till approximately 6 AM. At that time, he felt diaphoretic and his took his temperature which was found to be 100.9. They decided to wait until home health care came who found that his blood pressure was low and directed him to come to the emergency room. Interestingly, the patient also notes that he does have a chronic cough but for the past 2-3 nights it has been more frequent/productive which it normally is not. He also notes some chronic diarrhea that does not seem to be changing in amount or consistency as well as 2 episodes of emesis/nausea. Of note, he also had his Imuran recently increased (more content not included)... Normal [facility] CT CHEST WO IVCONon 10-02-[address] CHEST WO IVCON * * *Final Report* * * DATE OF EXAM: Feb 11 2025 11:46AM [facility] 0541 - CT CHEST WO IVCON / PROCEDURE REASON: Interstitial pulmonary disease (HCC) * * * * Physician Interpretation * * * * EXAMINATION: CHEST CT WITHOUT CONTRAST CLINICAL HISTORY: Interstitial lung disease. Shortness of breath. Technique: Spiral CT acquisition of the chest from the thoracic inlet to the upper abdomen without contrast. MQ: [id number] CT Radiation dose: Integrated Dose-length product (DLP) for this visit = 492.21 mGy*cm CT Dose Reduction Employed: Automated exposure control(AEC) and iterative recon Comparison: 10/13/2024 RESULT: Limitations: None. Lines, tubes, and devices: None. Lungs/pleura: Stable appearance of interstitial lung changes throughout both lungs. Subpleural reticular densities and fibrotic changes consisting of honeycombing as well as traction bronchiectasis and bronchiolectasis. Distribution of changes are most severe in the upper lungs at the lung bases. No focal infiltrate or effusion. Lower neck, lymph nodes, and mediastinum: Heart size normal. No pericardial effusion. Dense confluent coronary calcifications throughout the LAD, circumflex, and right coronary arteries. Patient has had previous coronary artery bypass graft. Scattered subcentimeter mediastinal lymph nodes. Bones and soft tissues: No significant additional findings. Upper abdomen: No significant additional findings. Localizer images: No additional findings. IMPRESSION: 1. Stable appearance of interstitial lung disease. Overall appearance is nonspecific. It is not a typical usual interstitial pneumonitis pattern. Considerations would have to include processes such as chronic hypersensitivity pneumonitis, pneumoconiosis, or sarcoidosis. 2. No acute infiltrates or effusions. 3. Extensive coronary artery calcifications. Status post coronary artery bypass graft. Hot Wire Glass Tube Cutter: PSCRaymon Transcribe Date/Time: Feb 16 2025 12:12P Dictated by : TRINIDAD RAMON MD This examination was interpreted and the report reviewed and electronically signed by: TRINIDAD RAMON MD on Feb 16 2025 12:22PM EST [id number] [facility] 01-25-2025 [facility] ----- PETERSONMARS ([id number]) 1955 M DEF Date Time Provider Department 01/25/25 ALMA GILL During your visit today, we recorded the following information about you: Priya Pedersen MA 01/25/2025 12:06 PM Signed Form received from [facility] placed on signing tray VANNA Rojas Brittny A, TECHNICAL APPLICATIONS SCIENTIST.[facility] 01/28/2025 4:41 PM Signed Form signed. Please return fax. Priya Pedersen MA 01/28/2025 4:44 PM Signed Faxed Priya Pedersen MA Allergies As of Date: 01/25/2025 Noted Allergy Reaction ANIMAL DANDER 08/21/2022 14 - Other: See Comments Comments: Anything with fur SEASONAL ALLERGIES 08/21/2022 14 - Other: See Comments Comments: Stuffy nose, headaches Date Reviewed: 12/07/2024 Reviewed by: Shanda Simon LPN - Fully Assessed Reason for Visit: Electronic Communication [890] Prescriptions as of 01/28/2025 - clopidogrel (PLAVIX) 75 mg tablet TAKE 1 TABLET BY MOUTH EVERY DAY - escitalopram oxalate (LEXAPRO) 20 mg tablet TAKE 1 TABLET BY MOUTH EVERY DAY - budesonide (PULMICORT) 0.5 mg/2 mL nebulizer solution Use 2 mL via nebulizer two times a day. - metoprolol succinate ER (TOPROL XL) 25 mg 24 hr tablet TAKE 1 TABLET BY MOUTH EVERY DAY - pantoprazole DR (PROTONIX) 40 mg tablet TAKE 1 TABLET BY MOUTH EVERY DAY - predniSONE (DELTASONE) 5 mg tablet Take 1 tablet by mouth once daily. - guaiFENesin (MUCINEX) 600 mg 12 hr tablet Take 1 tablet by mouth two times a day. - azaTHIOprine (IMURAN) 50 mg tablet Take 1 tablet by mouth once daily. - colestipol (COLESTID) 1 gram tablet Take 1 tablet by mouth two times a day. - acyclovir (ZOVIRAX) 400 mg tablet TAKE 1 TABLET BY MOUTH EVERY DAY - traZODone (DESYREL) 100 mg tablet TAKE 2 TABLETS BY MOUTH EVERY DAY AT BEDTIME - isosorbide mononitrate ER (IMDUR) 30 mg 24 hr tablet Take 1 tablet by mouth once daily. - gabapentin (NEURONTIN) 300 mg capsule TAKE 2 CAPSULES BY MOUTH EVERY MORNING AND 3 CAPSULES AT BEDTIME FOR 30 DAYS. Strength: 300 mg - hydrOXYzine HCl (ATARAX) 25 mg tablet Take 2 tablets by mouth two times a day. - ipratropium-albuterol (DUONEB) 0.5 mg-3 mg(2.5 mg base)/3 mL nebu Inhale 3 mL as instructed every 4 hours while awake. - rosuvastatin (CRESTOR) 20 mg tablet Take 1 tablet by mouth daily at bedtime. - lisinopril 2.5 mg tablet Take 1 tablet by mouth two times a day. Hold if SBP less than 110 - ezetimibe (ZETIA) 10 mg tablet Take 1 tablet by mouth once daily. - furosemide (LASIX) 40 mg tablet Take 1 tablet by mouth three times a week. - OXYGEN, HOME THERAPY, 3 L/min by Nasal Cannula route as directed. - fluticasone (FLONASE) 50 mcg/actuation nasal spray spray 1 spray into each nostril every day - nitroglycerin sublingual (NITROSTAT) 0.4 mg SL tablet Dissolve 1 tablet under the tongue every 5 minutes as needed for chest pain. - albuterol sulfate 90 mcg/actuation aebs Inhale 1-2 Puffs as instructed every 4 hours as needed for wheezing/shortness of breath. - Lactobacillus acidophilus (PROBIOTIC) 10 billion cell cap Take 1 capsule by mouth once daily. - acetaminophen (TYLENOL EXTRA STRENGTH) 500 mg tablet Take 2 tablets by mouth every 8 hours as needed for pain. FOR PAIN. - Zinc 50 mg tab Take 50 mg by mouth once daily. - aspirin, enteric coated (ASPIRIN, ENTERIC COATED) 81 mg EC tablet Take 81 mg by mouth once daily. - multivit-min/folic/vit K/lycop (ONE-A-DAY MEN'S MULTIVITAMIN ORAL) Take by mouth once daily. Problem List As Of Date 01/25/2025 Noted Resolved Essential hypertension [I10] 05/24/2020 Peripheral vascular disease [I73.9] 05/24/2020 Chronic back pain [M54.9, G89.29] 05/24/2020 Obesity, Class II, BMI 35-39.9 [E66.812] 05/24/2020 Status post below knee amputation of right lowe*10/22/2020 Chronic diastolic congestive heart failure (HCC*11/23/2021 Coronary artery disease of ione artery of kell*11/23/2021 CVA (cerebral vascular accident) ([facility]) [I63.9] 11/23/2021 11/20/2022 Neuropathy [G62.9] 11/23/2021 Osteomyelitis of foot ([facility]) [M86.9] 11/23/2021 09/18/2023 Umbilical hernia [K42.9] 11/23/2021 Pressure injury of right buttock, stage 2 ([facility])*02/01/2022 09/18/2023 Pressure injury of left buttock, stage 2 (HCC) *02/01/2022 09/18/2023 Chest pain [R07.9] 02/01/2022 10/12/2024 Essential tremor [G25.0] 02/01/2022 Anxiety and depression [F41.9, F32.A] 02/01/2022 SOB (shortness of breath) [R06.02] 02/15/2022 10/12/2024 Impaired fasting glucose [R73.01] 06/04/2022 Mixed hyperlipidemia [E78.2] 06/04/2022 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 Normal [facility] CNPDanitza 01-19-2025 DIMITRI Telephone (KIZZYBOB) ----- MARS PETERSON ([id number]) 1955 M DEF Date Time Provider Department 01/19/25 ALMA GILL During your visit today, we recorded the following information about you: Alma Gill APRN.TAG MACHINE OPERATOR 01/19/2025 1:52 PM Signed [facility] PT added. Please fax referral to [facility]. Thanks! Priya Pedersen MA 01/19/2025 2:18 PM Signed Faxed Priya Pedersen MA Allergies As of Date: 01/19/2025 Noted Allergy Reaction ANIMAL DANDER 08/21/2022 14 - Other: See Comments Comments: Anything with fur SEASONAL ALLERGIES 08/21/2022 14 - Other: See Comments Comments: Stuffy nose, headaches Date Reviewed: 12/07/2024 Reviewed by: Shanda Simon LPN - Fully Assessed Reason for Visit: Consult [502] Primary Visit Diagnosis:ILD (interstitial lung disease) (HCC) [J84.9] Other Visit Diagnoses:Dependence on supplemental oxygen [Z99.81] SOB (shortness of breath) on exertion [R06.02] Impaired ambulation [R26.2] Requires assistance with activities of daily living (ADL) [Z74.1] Confusion [R41.0] Impaired mobility [Z74.09] Essential tremor [G25.0] Neuropathy [G62.9] Order(s):CONSULT TO HOME HEALTH CARE [[id number]] Order #: [id number]: 1 Prescriptions as of 01/19/2025 - clopidogrel (PLAVIX) 75 mg tablet TAKE 1 TABLET BY MOUTH EVERY DAY - escitalopram oxalate (LEXAPRO) 20 mg tablet TAKE 1 TABLET BY MOUTH EVERY DAY - budesonide (PULMICORT) 0.5 mg/2 mL nebulizer solution Use 2 mL via nebulizer two times a day. - metoprolol succinate ER (TOPROL XL) 25 mg 24 hr tablet TAKE 1 TABLET BY MOUTH EVERY DAY - pantoprazole DR (PROTONIX) 40 mg tablet TAKE 1 TABLET BY MOUTH EVERY DAY - predniSONE (DELTASONE) 5 mg tablet Take 1 tablet by mouth once daily. - guaiFENesin (MUCINEX) 600 mg 12 hr tablet Take 1 tablet by mouth two times a day. - azaTHIOprine (IMURAN) 50 mg tablet Take 1 tablet by mouth once daily. - colestipol (COLESTID) 1 gram tablet Take 1 tablet by mouth two times a day. - acyclovir (ZOVIRAX) 400 mg tablet TAKE 1 TABLET BY MOUTH EVERY DAY - traZODone (DESYREL) 100 mg tablet TAKE 2 TABLETS BY MOUTH EVERY DAY AT BEDTIME - isosorbide mononitrate ER (IMDUR) 30 mg 24 hr tablet Take 1 tablet by mouth once daily. - gabapentin (NEURONTIN) 300 mg capsule TAKE 2 CAPSULES BY MOUTH EVERY MORNING AND 3 CAPSULES AT BEDTIME FOR 30 DAYS. Strength: 300 mg - hydrOXYzine HCl (ATARAX) 25 mg tablet Take 2 tablets by mouth two times a day. - ipratropium-albuterol (DUONEB) 0.5 mg-3 mg(2.5 mg base)/3 mL nebu Inhale 3 mL as instructed every 4 hours while awake. - rosuvastatin (CRESTOR) 20 mg tablet Take 1 tablet by mouth daily at bedtime. - lisinopril 2.5 mg tablet Take 1 tablet by mouth two times a day. Hold if SBP less than 110 - ezetimibe (ZETIA) 10 mg tablet Take 1 tablet by mouth once daily. - furosemide (LASIX) 40 mg tablet Take 1 tablet by mouth three times a week. - OXYGEN, HOME THERAPY, 3 L/min by Nasal Cannula route as directed. - fluticasone (FLONASE) 50 mcg/actuation nasal spray spray 1 spray into each nostril every day - nitroglycerin sublingual (NITROSTAT) 0.4 mg SL tablet Dissolve 1 tablet under the tongue every 5 minutes as needed for chest pain. - albuterol sulfate 90 mcg/actuation aebs Inhale 1-2 Puffs as instructed every 4 hours as needed for wheezing/shortness of breath. - Lactobacillus acidophilus (PROBIOTIC) 10 billion cell cap Take 1 capsule by mouth once daily. - acetaminophen (TYLENOL EXTRA STRENGTH) 500 mg tablet Take 2 tablets by mouth every 8 hours as needed for pain. FOR PAIN. - Zinc 50 mg tab Take 50 mg by mouth once daily. - aspirin, enteric coated (ASPIRIN, ENTERIC COATED) 81 mg EC tablet Take 81 mg by mouth once daily. - multivit-min/folic/vit K/lycop (ONE-A-DAY MEN'S MULTIVITAMIN ORAL) Take by mouth once daily. Problem List As Of Date 01/19/2025 Noted Resolved Essential hypertension [I10] 05/24/2020 Peripheral vascular disease [I73.9] 05/24/2020 Chronic back pain [M54.9, G89.29] 05/24/2020 Obesity, Class II, BMI 35-39.9 [E66.812] 05/24/2020 Status post below knee amputation of right lowe*10/22/2020 Chronic diastolic congestive heart failure (HCC*11/23/2021 Coronary artery disease of ione artery of kell*11/23/2021 CVA (cerebral vascular accident) (HCC) [I63.9] 11/23/2021 11/20/2022 Neuropathy [G62.9] 11/23/2021 Osteomyelitis of foot (HCC) [M86.9] 11/23/2021 09/18/2023 Umbilical hernia [K42.9] 11/23/2021 Pressure injury of right buttock, stage 2 ([facility])*02/01/2022 09/18/2023 Pressure injury of left buttock, stage 2 (HCC) *02/01/2022 09/18/2023 Chest pain [R07.9] 02/01/2022 10/12/2024 Essential tremor [G25.0] 02/01/2022 Anxiety and depression [F41.9, F32.A] 02/01/2022 SOB (shortness of breath) [R06.02] 02/15/2022 10/12/2024 Impaired fasting glucose [R73.01] 06/04/2022 Mixed hyperlipidemia [E78.2] 06/04/2022 S/P C (more content not included)... Normal [facility] CNOVon 12-07-2024 CNOV Normal [facility] Yamileth 12-01-2024 CNPN Telephone (KIZZYMPLE) ----- MARS PETERSON ([id number]) 1955 M DEF Date Time Provider Department 12/01/24 ALMA GILL During your visit today, we recorded the following information about you: Priya Pedesren MA 12/01/2024 8:11 AM Signed Form received [facility] on signing tray VANNA Rojas Julie, MA 12/01/2024 1:06 PM Signed Faxed Priya Pedersen MA Allergies As of Date: 12/01/2024 Noted Allergy Reaction ANIMAL DANDER 08/21/2022 14 - Other: See Comments Comments: Anything with fur SEASONAL ALLERGIES 08/21/2022 14 - Other: See Comments Comments: Stuffy nose, headaches Date Reviewed: 11/11/2024 Reviewed by: Abbie Mason LPN - Fully Assessed Reason for Visit: Electronic Communication [890] Prescriptions as of 12/01/2024 - pantoprazole DR (PROTONIX) 40 mg tablet TAKE 1 TABLET BY MOUTH EVERY DAY - predniSONE (DELTASONE) 5 mg tablet Take 1 tablet by mouth once daily. - guaiFENesin (MUCINEX) 600 mg 12 hr tablet Take 1 tablet by mouth two times a day. - azaTHIOprine (IMURAN) 50 mg tablet Take 1 tablet by mouth once daily. - colestipol (COLESTID) 1 gram tablet Take 1 tablet by mouth two times a day. - acyclovir (ZOVIRAX) 400 mg tablet TAKE 1 TABLET BY MOUTH EVERY DAY - traZODone (DESYREL) 100 mg tablet TAKE 2 TABLETS BY MOUTH EVERY DAY AT BEDTIME - isosorbide mononitrate ER (IMDUR) 30 mg 24 hr tablet Take 1 tablet by mouth once daily. - gabapentin (NEURONTIN) 300 mg capsule TAKE 2 CAPSULES BY MOUTH EVERY MORNING AND 3 CAPSULES AT BEDTIME FOR 30 DAYS. Strength: 300 mg - hydrOXYzine HCl (ATARAX) 25 mg tablet Take 2 tablets by mouth two times a day. - budesonide (PULMICORT) 0.5 mg/2 mL nebulizer solution Use 2 mL via nebulizer two times a day. - ipratropium-albuterol (DUONEB) 0.5 mg-3 mg(2.5 mg base)/3 mL nebu Inhale 3 mL as instructed every 4 hours while awake. - metoprolol succinate ER (TOPROL XL) 25 mg 24 hr tablet Take 1 tablet by mouth every afternoon. - clopidogrel (PLAVIX) 75 mg tablet Take 1 tablet by mouth once daily. - rosuvastatin (CRESTOR) 20 mg tablet Take 1 tablet by mouth daily at bedtime. - lisinopril 2.5 mg tablet Take 1 tablet by mouth two times a day. Hold if SBP less than 110 - ezetimibe (ZETIA) 10 mg tablet Take 1 tablet by mouth once daily. - furosemide (LASIX) 40 mg tablet Take 1 tablet by mouth three times a week. - escitalopram oxalate (LEXAPRO) 20 mg tablet Take 1 tablet by mouth once daily. - OXYGEN, HOME THERAPY, 3 L/min by Nasal Cannula route as directed. - fluticasone (FLONASE) 50 mcg/actuation nasal spray spray 1 spray into each nostril every day - nitroglycerin sublingual (NITROSTAT) 0.4 mg SL tablet Dissolve 1 tablet under the tongue every 5 minutes as needed for chest pain. - albuterol sulfate 90 mcg/actuation aebs Inhale 1-2 Puffs as instructed every 4 hours as needed for wheezing/shortness of breath. - Lactobacillus acidophilus (PROBIOTIC) 10 billion cell cap Take 1 capsule by mouth once daily. - acetaminophen (TYLENOL EXTRA STRENGTH) 500 mg tablet Take 2 tablets by mouth every 8 hours as needed for pain. FOR PAIN. - Zinc 50 mg tab Take 50 mg by mouth once daily. - aspirin, enteric coated (ASPIRIN, ENTERIC COATED) 81 mg EC tablet Take 81 mg by mouth once daily. - multivit-min/folic/vit K/lycop (ONE-A-DAY MEN'S MULTIVITAMIN ORAL) Take by mouth once daily. Problem List As Of Date 12/01/2024 Noted Resolved Essential hypertension [I10] 05/24/2020 Peripheral vascular disease [I73.9] 05/24/2020 Chronic back pain [M54.9, G89.29] 05/24/2020 Obesity, Class II, BMI 35-39.9 [E66.812] 05/24/2020 Status post below knee amputation of right lowe*10/22/2020 Chronic diastolic congestive heart failure (HCC*11/23/2021 Coronary artery disease of ione artery of kell*11/23/2021 CVA (cerebral vascular accident) ([facility]) [I63.9] 11/23/2021 11/20/2022 Neuropathy [G62.9] 11/23/2021 Osteomyelitis of foot ([facility]) [M86.9] 11/23/2021 09/18/2023 Umbilical hernia [K42.9] 11/23/2021 Pressure injury of right buttock, stage 2 ([facility])*02/01/2022 09/18/2023 Pressure injury of left buttock, stage 2 ([facility]) *02/01/2022 09/18/2023 Chest pain [R07.9] 02/01/2022 10/12/2024 Essential tremor [G25.0] 02/01/2022 Anxiety and depression [F41.9, F32.A] 02/01/2022 SOB (shortness of breath) [R06.02] 02/15/2022 10/12/2024 Impaired fasting glucose [R73.01] 06/04/2022 Mixed hyperlipidemia [E78.2] 06/04/2022 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1] 06/04/2022 Hyponatremia [E87.1] 06/04/2022 Post PTCA [Z98.61] 08/08/2022 AZRA (acute kidney injury) ([facility]) [N17.9] 08/10/2022 01/16/2024 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 Normal [facility] Yamileth 11-26-2024 CNPN Telephone (AGFAMPLE) ----- MARS PETERSON ([id number]) 1955 M DEF Date Time Provider Department 11/26/24 ALMA GILL During your visit today, we recorded the following information about you: Priya Pedersen MA 11/26/2024 7:17 AM Signed Form received from [facility] placed on signing tray VANNA Rojas Brittny A, APRN.[facility] 12/02/2024 4:16 PM Signed Form was completed and faxed back by Priya IBARRA. Allergies As of Date: 11/26/2024 Noted Allergy Reaction ANIMAL DANDER 08/21/2022 14 - Other: See Comments Comments: Anything with fur SEASONAL ALLERGIES 08/21/2022 14 - Other: See Comments Comments: Stuffy nose, headaches Date Reviewed: 11/11/2024 Reviewed by: Abbie Mason LPN - Fully Assessed Reason for Visit: Electronic Communication [890] Prescriptions as of 12/02/2024 - pantoprazole DR (PROTONIX) 40 mg tablet TAKE 1 TABLET BY MOUTH EVERY DAY - predniSONE (DELTASONE) 5 mg tablet Take 1 tablet by mouth once daily. - guaiFENesin (MUCINEX) 600 mg 12 hr tablet Take 1 tablet by mouth two times a day. - azaTHIOprine (IMURAN) 50 mg tablet Take 1 tablet by mouth once daily. - colestipol (COLESTID) 1 gram tablet Take 1 tablet by mouth two times a day. - acyclovir (ZOVIRAX) 400 mg tablet TAKE 1 TABLET BY MOUTH EVERY DAY - traZODone (DESYREL) 100 mg tablet TAKE 2 TABLETS BY MOUTH EVERY DAY AT BEDTIME - isosorbide mononitrate ER (IMDUR) 30 mg 24 hr tablet Take 1 tablet by mouth once daily. - gabapentin (NEURONTIN) 300 mg capsule TAKE 2 CAPSULES BY MOUTH EVERY MORNING AND 3 CAPSULES AT BEDTIME FOR 30 DAYS. Strength: 300 mg - hydrOXYzine HCl (ATARAX) 25 mg tablet Take 2 tablets by mouth two times a day. - budesonide (PULMICORT) 0.5 mg/2 mL nebulizer solution Use 2 mL via nebulizer two times a day. - ipratropium-albuterol (DUONEB) 0.5 mg-3 mg(2.5 mg base)/3 mL nebu Inhale 3 mL as instructed every 4 hours while awake. - metoprolol succinate ER (TOPROL XL) 25 mg 24 hr tablet Take 1 tablet by mouth every afternoon. - clopidogrel (PLAVIX) 75 mg tablet Take 1 tablet by mouth once daily. - rosuvastatin (CRESTOR) 20 mg tablet Take 1 tablet by mouth daily at bedtime. - lisinopril 2.5 mg tablet Take 1 tablet by mouth two times a day. Hold if SBP less than 110 - ezetimibe (ZETIA) 10 mg tablet Take 1 tablet by mouth once daily. - furosemide (LASIX) 40 mg tablet Take 1 tablet by mouth three times a week. - escitalopram oxalate (LEXAPRO) 20 mg tablet Take 1 tablet by mouth once daily. - OXYGEN, HOME THERAPY, 3 L/min by Nasal Cannula route as directed. - fluticasone (FLONASE) 50 mcg/actuation nasal spray spray 1 spray into each nostril every day - nitroglycerin sublingual (NITROSTAT) 0.4 mg SL tablet Dissolve 1 tablet under the tongue every 5 minutes as needed for chest pain. - albuterol sulfate 90 mcg/actuation aebs Inhale 1-2 Puffs as instructed every 4 hours as needed for wheezing/shortness of breath. - Lactobacillus acidophilus (PROBIOTIC) 10 billion cell cap Take 1 capsule by mouth once daily. - acetaminophen (TYLENOL EXTRA STRENGTH) 500 mg tablet Take 2 tablets by mouth every 8 hours as needed for pain. FOR PAIN. - Zinc 50 mg tab Take 50 mg by mouth once daily. - aspirin, enteric coated (ASPIRIN, ENTERIC COATED) 81 mg EC tablet Take 81 mg by mouth once daily. - multivit-min/folic/vit K/lycop (ONE-A-DAY MEN'S MULTIVITAMIN ORAL) Take by mouth once daily. Problem List As Of Date 11/26/2024 Noted Resolved Essential hypertension [I10] 05/24/2020 Peripheral vascular disease [I73.9] 05/24/2020 Chronic back pain [M54.9, G89.29] 05/24/2020 Obesity, Class II, BMI 35-39.9 [E66.812] 05/24/2020 Status post below knee amputation of right lowe*10/22/2020 Chronic diastolic congestive heart failure (HCC*11/23/2021 Coronary artery disease of ione artery of kell*11/23/2021 CVA (cerebral vascular accident) ([facility]) [I63.9] 11/23/2021 11/20/2022 Neuropathy [G62.9] 11/23/2021 Osteomyelitis of foot ([facility]) [M86.9] 11/23/2021 09/18/2023 Umbilical hernia [K42.9] 11/23/2021 Pressure injury of right buttock, stage 2 ([facility])*02/01/2022 09/18/2023 Pressure injury of left buttock, stage 2 ([facility]) *02/01/2022 09/18/2023 Chest pain [R07.9] 02/01/2022 10/12/2024 Essential tremor [G25.0] 02/01/2022 Anxiety and depression [F41.9, F32.A] 02/01/2022 SOB (shortness of breath) [R06.02] 02/15/2022 10/12/2024 Impaired fasting glucose [R73.01] 06/04/2022 Mixed hyperlipidemia [E78.2] 06/04/2022 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 Normal 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 FEV1 repeatable x3. The two acceptable DLCO measurements obtained were repeatable. DLCO is hemoglobin corrected. Hemoglobin obtained from [facility] on 11/10/2024. //KM IMPRESSION: Spirometry indicates no obstruction. The reduced FVC could indicate restriction, recommend lung volumes for definitive determination. The diffusing capacity (uncorrected for hemoglobin) is reduced. Electronically Signed On 11-11-2024 14:03:25 EDT by Cristin Mayorga MD ID: [id number] Name: MARS PETERSON Race: White Ht: 72.00 in Wt: 264.00 lbs Age: 69 Gender: Male : 1955 Dx: Hypersensitivity pneumonitis_ Smoking Hx: Non-smoker Doctor: TRU SIMON Test Date: 11/11/2024 Site: [facility] Tech: Dena Tavarez PRE-BRONCH POST-BRONCH Lui LLN Pred ULN %Pred ZScore Lui %Pred %Chg ZScore SPIROMETRY FVC 2.11 3.22 4.34 5.47 48 -3.33 FEV1 1.34 2.36 3.24 4.07 41 -3.38 FEV1/FVC 0.64 0.63 0.76 0.87 83 -1.54 FEFMax 5.48 6.22 8.68 11.13 63 -2.15 FEF50 0.79 2.23 4.36 6.48 18 -2.76 FIF50 2.56 FEF50/FIF50 0.31 90-100 FIVC 1.95 WFT11-75 0.48 1.07 2.50 4.53 19 -2.66 ExpiredTime 11.65 TimeToFEFMax 0.07 AMY 0.06 VolExtrap% 3 LUNG DIFFUSION DLCOunc 8.88 19.94 27.17 35.79 32 -5.11 DLCOStdPB 8.73 19.94 27.17 35.79 32 -5.17 DLCORefHb 8.73 25.04 34 VA 2.69 5.53 6.87 8.31 39 -5.76 Kco 3.26 2.94 3.98 5.11 81 -1.12 Hgb 12.10 12-18 Comments: The two largest FVC's are not repeatable. FEV1 repeatable x3. The two acceptable DLCO measurements obtained were repeatable. DLCO is hemoglobin corrected. Hemoglobin obtained from [facility] on 11/10/2024. //KM PULMONARY FUNCTION LAB [facility] SPIROMETRY BASELINE ONLYon 0 11-11-2024 DLCO (ml/min/mmHg) 8.88 ml/min/mmHg [facility] DLCO LLN (ml/min/mmHg) 19.94 ml/min/mmHg [facility] DLCO PREDICTED (ml/min/mmHg) 27.17 ml/min/mmHg [facility] DLCO ULN (ml/min/mmHg) 35.79 ml/min/mmHg [facility] DLCO/VA (ml/min/mmHg/L) 0.03 ml/min/mmHg /L [facility] DLCO/VA PREDICTED (ml/min/mmHg/L) 0.04 ml/min/mmHg /L [facility] DLCO/VAcor (ml/min/mmHg/L) 0.03 ml/min/mmHg /L [facility] DLCOcor (ml/min/mmHg) 8.73 ml/min/mmHg [facility] DLCOcor PREDICTED (ml/min/mmHg) 25.04 ml/min/mmHg [facility] ERV PREDICTED (L) 1.45 L/S [facility] FEF25% PRE (L/S) 3.24 L/S [facility] QMD32-36% LLN (L/S) 1.07 L/S [facility] ACL39-49% PRE (L/S) 0.48 L/S [facility] XIX95-49% PREDICTED (L/S) 2.5 L/S [facility] FEF75% LLN (L/S) 0.25 L/S [facility] FEF75% PRE (L/S0 0.13 L/S [facility] FEF75% PREDICTED (L/S) 0.68 L/S [facility] FEF75% ULN (L/S) 1.77 L/S [facility] FET PRE (S) 11.65 S [facility] FEV1 LLN (L) 2.36 L [facility] FEV1 PRE (L) 1.34 L [facility] FEV1 PREDICTED (L) 3.24 L [facility] FEV1 ULN (L) 4.07 L [facility] FEV1/FVC LLN (%) 63 % [facility] FEV1/FVC PRE (%) 64 % [facility] FEV1/FVC PREDICTED (%) 76 % [facility] FVC LLN (L) 3.22 L [facility] FVC PRE (L) 2.11 L [facility] FVC PREDICTED (L) 4.34 L [facility] FVC ULN (L) 5.47 L [facility] IC PREDICTED (L) 2.89 L/S [facility] [facility] PEF LLN (L/S) 6.22 L/S [facility] PEF PRE (L/S) 5.48 L/S [facility] PEF ULN (L/S) 11.13 L/S [facility] SVC LLN (L) 3.22 L/S [facility] SVC PREDICTED (L) 4.34 L/S [facility] SVC ULN (L) 5.47 L/S [facility] VA (L) 2.69 L [facility] PREDICTED (L) 6.87 L [facility] SPIROMETRY BASELINE ONLY Normal [facility] CBC W Auto Differential pane l (Bld)on 11-10-2024 Basophils (Bld) [#/Vol] 0.03 10*3/uL NINF [facility] Basophils/100 WBC (Bld) 0.3 % [facility] Differential cell count method Nom (Bld) Auto [facility] Eosinophils (Bld) [#/Vol] 0.33 10*3/[facility]L [facility] Eosinophils/100 WBC (Bld) 3.6 % [facility] Erythrocyte distribution width (RBC) [Ratio] 15.4 % High 11.5 - 15.0 % [facility] Hematocrit (Bld) [Volume fraction] 39.3 % 39.0 - 51.0 % [facility] Hemoglobin (Bld) [Mass/Vol] 12.1 g/dL Low 13.0 - 17.0 g/dL [facility] Immature granulocytes (Bld) [#/Vol] 0.06 10*3/uL [facility] Immature granulocytes/100 WBC (Bld) 0.6 % [facility] Interpretation and review of laboratory results Abnormal [facility] Lymphocytes (Bld) [#/Vol] 1.1 10*3/uL [facility] Lymphocytes/100 WBC (Bld) 11.9 % [facility] MCH (RBC) [Entitic mass] 28.7 pg 26.0 - 34.0 pg [facility] MCHC (RBC) [Mass/Vol] 30.8 g/dL 30.5 - 36.0 g/dL [facility] MCV (RBC) [Entitic vol] 93.3 fL 80.0 - 100.0 fL [facility] Monocytes (Bld) [#/Vol] 0.84 10*3/uL [facility] Monocytes/100 WBC (Bld) 9.1 % [facility] Neutrophils (Bld) [#/Vol] 6.89 10*3/uL [facility] Neutrophils/100 WBC (Bld) 74.5 % [facility] Nucleated RBC (Bld) [#/Vol] [facility] Nucleated RBC/100 WBC (Bld) [Ratio] [facility] Platelet mean volume (Bld) [Entitic vol] 9 fL 9.0 - 12.7 fL [facility] Platelets (Bld) [#/Vol] 230 10*3/uL [facility] RBC (Bld) [#/Vol] 4.21 10*6/uL 4.20 - 6.0 0 m/uL [facility] WBC (Bld) [#/Vol] 9.25 10*3/uL [facility] Basophils (Bld) [#/Vol] 0.03 10*3/uL Normal <0.11 [facility] Comment on above: Order Comment: Speci men Type: BLOOD SPECIMENOrdering Facility: [facility] Address: [address] [place] [address] Performed By: #### 5 7021-8 ####[facility] LABCLIA [id number] [place] [address] [place] Basophils/100 WBC (Bld) 0.3 % Normal [facility] Comment on above: Order Comment: Speci men Type: BLOOD SPECIMENOrdering Facility: [facility] Address: [address] [place] [address] Performed By: #### 5 7021-8 ####[facility] LABCLIA [id number] [facility] [place] [address] [place] Differential cell count method Nom (Bld) Auto Normal [facility] Comment on above: Order Comment: Speci men Type: BLOOD SPECIMENOrdering Facility: [facility] Address: [address] [place] [address] Performed By: #### 5 7021-8 ####[facility] LABCLIA [id number] [facility] [place] [place] [address] [place] Eosinophils (Bld) [#/Vol] 0.33 10*3/uL Normal <0.46 [facility] Comment on above: Order Comment: Speci men Type: BLOOD SPECIMENOrdering Facility: [facility] Address: [address] [place] [address] Performed By: #### 5 7021-8 ####[facility] LABCLIA [id number] YRI[place] [facility] [place] [address] [place] Eosinophils/100 WBC (Bld) 3.6 % Normal [facility] Comment on above: Order Comment: Speci men Type: BLOOD SPECIMENOrdering Facility: [facility] Address: [address] [place] [address] Performed By: #### 5 7021-8 ####[facility] LABCLIA [id number] [place] [address] [place] Erythrocyte distribution width (RBC) [Ratio] 15.4 % High 11.5-15.0 [facility] Comment on above: Order Comment: Speci men Type: BLOOD SPECIMENOrdering Facility: [facility] Address: [address] [place] [address] Performed By: #### 5 7021-8 ####[facility] [place] LABCLIA [id number] [place] [address] [facility] [place] Hematocrit (Bld) [Volume fraction] 39.3 % Normal 39.0-51.0 [facility] Comment on above: Order Comment: Speci men Type: BLOOD SPECIMENOrdering Facility: [facility] Address: [address] [place] [address] Performed By: #### 5 7021-8 ####[facility] [employer] LABCLIA [id number] [facility] [place] [address] [place] Hemoglobin (Bld) [Mass/Vol] 12.1 g/dL Low 13.0-17.0 [facility] Comment on above: Order Comment: Speci men Type: BLOOD SPECIMENOrdering Facility: [facility] Address: [address] [place] [address] Performed By: #### 5 7021-8 ####[facility] [place] LABCLIA [id number] [facility] [place] [address] [place] Immature granulocytes (Bld) [#/Vol] 0.06 10*3/uL Normal <0.10 [facility] Comment on above: Order Comment: Speci men Type: BLOOD SPECIMENOrdering Facility: [facility] Address: [address] [place] [address] Performed By: #### 5 7021-8 ####[facility] [place] LABCLIA [id number] [facility] [place] [place] [address] [facility] [place] Immature granulocytes/100 WBC (Bld) 0.6 % Normal [facility] Comment on above: Order Comment: Speci men Type: BLOOD SPECIMENOrdering Facility: [facility] Address: [address] [place] [address] Performed By: #### 5 7021-8 ####[facility] LABCLIA [id number] [place] [address] [facility] Lymphocytes (Bld) [#/Vol] 1.10 10*3/uL Normal 1.00-4.00 [facility] Comment on above: Order Comment: Speci men Type: BLOOD SPECIMENOrdering Facility: [facility] Address: [address] [place] [address] Performed By: #### 5 7021-8 ####[facility] LABCLIA [id number] [address] Lymphocytes/100 WBC (Bld) 11.9 % Normal [facility] Comment on above: Order Comment: Speci men Type: BLOOD SPECIMENOrdering Facility: [facility] Address: [address] [place] [address] Performed By: #### 5 7021-8 ####[facility] LABCLIA [id number] [place] [address] [place] MCH (RBC) [Entitic mass] 28.7 pg Normal 26.0-34.0 [facility] Comment on above: Order Comment: Speci men Type: BLOOD SPECIMENOrdering Facility: [facility] Address: [address] [place] [address] Performed By: #### 5 7021-8 ####[facility] LABCLIA [id number] [place] [address] [place] MCHC (RBC) [Mass/Vol] 30.8 g/dL Normal 30.5-36.0 [facility] Comment on above: Order Comment: Speci men Type: BLOOD SPECIMENOrdering Facility: [facility] Address: [address] [place] [address] Performed By: #### 5 7021-8 ####[facility] LABCLIA [id number] [place] [address] [place] MCV (RBC) [Entitic vol] 93.3 fL Normal 80.0-100.0 [facility] Comment on above: Order Comment: Speci men Type: BLOOD SPECIMENOrdering Facility: [facility] Address: [address] [place] [address] Performed By: #### 5 7021-8 ####[facility] LABCLIA [id number] [place] [address] [place] Monocytes (Bld) [#/Vol] 0.84 10*3/uL Normal <0.87 [facility] Comment on above: Order Comment: Speci men Type: BLOOD SPECIMENOrdering Facility: [facility] Address: [address] [place] [address] Performed By: #### 5 7021-8 ####[facility] LABCLIA [id number] [place] [address] [place] Monocytes/100 WBC (Bld) 9.1 % Normal [facility] Comment on above: Order Comment: Speci men Type: BLOOD SPECIMENOrdering Facility: [facility] Address: [address] [place] [address] Performed By: #### 5 7021-8 ####[facility] LABCLIA [id number] [place] [address] [place] Neutrophils (Bld) [#/Vol] 6.89 10*3/uL Normal 1.45-7.50 [facility] Comment on above: Order Comment: Speci men Type: BLOOD SPECIMENOrdering Facility: [facility] Address: [address] [place] [address] Performed By: #### 5 7021-8 ####[facility] LABCLIA [id number] [place] [address] [place] Neutrophils/100 WBC (Bld) 74.5 % Normal [facility] Comment on above: Order Comment: Speci men Type: BLOOD SPECIMENOrdering Facility: [facility] Address: [address] [place] [address] Performed By: #### 5 7021-8 ####[facility] LABCLIA [id number] [place] [address] [place] Nucleated RBC (Bld) [#/Vol] Normal [facility] Comment on above: Order Comment: Speci men Type: BLOOD SPECIMENOrdering Facility: [facility] Address: [address] [place] [address] Performed By: #### 5 7021-8 ####[facility] [place] LABCLIA [id number] [place] [facility] [place] [address] [place] Nucleated RBC/100 WBC (Bld) [Ratio] Normal [facility] Comment on above: Order Comment: Speci men Type: BLOOD SPECIMENOrdering Facility: [facility] Address: [address] [place] [address] Performed By: #### 5 7021-8 ####[facility] [place] LABCLIA [id number] [facility] [place] [place] [address] [place] Platelet mean volume (Bld) [Entitic vol] 9.0 fL Normal 9.0-12.7 [facility] Comment on above: Order Comment: Speci men Type: BLOOD SPECIMENOrdering Facility: [facility] Address: [address] [place] [address] Performed By: #### 5 7021-8 ####[facility] [place] LABCLIA [id number] [facility] [place] [address] [place] Platelets (Bld) [#/Vol] 230 10*3/uL Normal 150-400 [facility] Comment on above: Order Comment: Speci men Type: BLOOD SPECIMENOrdering Facility: [facility] Address: [address] [place] [address] Performed By: #### 5 7021-8 ####[facility] [place] LABCLIA [id number] [facility] [place] [place] [address] [place] RBC (Bld) [#/Vol] 4.21 10*6/uL Normal 4.20-6.00 [facility] Comment on above: Order Comment: Speci men Type: BLOOD SPECIMENOrdering Facility: [facility] Address: [address] [id number] Performed By: #### 5 7021-8 ####[facility] LABCLIA [id number] [place] [address] [facility] [place] WBC (Bld) [#/Vol] 9.25 10*3/uL Normal 3.70-11.00 [facility] Comment on above: Order Comment: Isadorajimmy egan Type: BLOOD SPECIMENOrdering Facility: [facility] Address: [address] [id number] Performed By: #### 5 7021-8 ####[facility] LABCLIA [id number] [place] [address] [facility] CNOVon 11-10-2024 CNOV Office Visit (AGFAMP LE) ----- MARS PETERSON ([id number]) 1955 M [facility] Date Time Provider Department 11/10/24 3:20 PM ALMA GILL During your visit today, we recorded the following information about you: Temperature Pulse Respiration Blood pressure 97.7 degrees 68/minute 16/minute 124/78 Alma Gill, TECHNICAL APPLICATIONS SCIENTIST.[facility] 11/15/2024 5:42 PM Signed CHIEF COMPLAINT: John Peterson is a 69-year-old male with a history of interstitial lung disease, presenting for follow-up after recent hospitalization for pneumonia and sepsis, accompanied by his who is providing history on his behalf. I reviewed past medical, surgical, social, and family histories today and updated chart. Allergies, chronic medications, and supplements were also reviewed. Recording using [employer] software for draft documentation of the visit was discussed with the patient/authorized sales promotion representative; all questions welcomed and answered. Patient/authorized sales promotion representative agreed to proceed Pneumonia and Sepsis: - Recent hospitalization for pneumonia and sepsis, with a 4-day stay. - reports that the diagnosis of pneumonia and sepsis was not communicated until the day of discharge. - Hospitalization also involved treatment for colitis. - Discharged with Bactrim - Scheduled to see Dr. Simon tomorrow. Interstitial Lung Disease: - History of interstitial lung disease. - Awaiting approval for CellCept. - Reports increased dyspnea since returning home. - Scheduled for pulmonary function testing tomorrow. Tremors: - Notable tremors, reportedly worsening. - Family history of essential tremors in John's mother. Boxer's Fracture: - Recent boxer's fracture with right hand, previously in a cast, now removed. - Experiencing some swelling; using a stress ball for rehabilitation. Chronic Diarrhea: - Chronic diarrhea, reportedly managed with medication. - Previously on Metamucil, but discontinued due to worsening symptoms. - Consumes a diet high in bananas. HOSPITAL COURSE: Mars Peterson is a 69 year old male presented with past medical history of r diastolic heart failure, interstitial lung disease on 3 L of oxygen chronically, hypertension, CAD s/p CABG x 4, HILARIO, PVD s/p right BKA, anxiety/depression, hyperlipidemia, and hyponatremia who presents with feeling unwell. Patient states that his ill feelings started yesterday morning when he awoke suddenly at approximately 3 AM. At that time, he states that he was shaking but was able to fall back asleep till approximately 6 AM. At that time, he felt diaphoretic and his took his temperature which was found to be 100.9. They decided to wait until home health care came who found that his blood pressure was low and directed him to come to the emergency room. Interestingly, the patient also notes that he does have a chronic cough but for the past 2-3 nights it has been more frequent/productive which it normally is not. He also notes some chronic diarrhea that does not seem to be changing in amount or consistency as well as 2 episodes of emesis/nausea. 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 Socially, the patient denies nicotine use, alcohol use, or recreational drug use. Furthermore he denies headache, changes in his vision/hearing, trouble swallowing, chest pain, shortness of breath, abdominal pain, constipation/hematochezia , urinary changes, new numbness/tingling, or new swelling. In the [place] ED the patient was found to be afebrile and hemodynamically stable as well as saturating well on his baseline 3 L of oxygen via NC. Labs are notable for sodium of 127, chloride of 87, bicarbonate of 26, creatinine of 1.53, blood glucose of 133, normal LFTs, BNP of 1255, ethanol less than 11, high-sensitivity troponin of 49-->41-->31, hemoglobin of 13.3, and leukocytosis of 11.92 with an ANC of 9.73. COVID/flu/RSV swabs were found to be negative. UA was found to be negative for signs of UTI. Chest x-ray demonstrated unchanged moderate interstitial pulmonary opacities bilaterally which may be secondary to known pulmonary fibrosis although there is a possibility of superimposed pulmonary edema or infection. CT of the abdomen and pelvis demonstrated several air-filled loops of bowel seen without evidence of bowel obstruction as well as a large amount of fluid in the sigmoid colon/rectum possibly in setting of colitis. The patient was given doses of DuoNebs, albuterol, Solu-Medrol, 1 L normal saline, Augmentin, and Zofran. He is being transferred to hospital medicine at [place] for further workup and management of his sepsis of unknown origin. The patient was treated for pneumonia and possible colitis. His MRSA nasal was positive for which with his interstitial lung disease he (more content not included)... Normal [facility] Comprehensive metabolic 2000 panelon 11-10-2024 Albumin [Mass/Vol] 3.7 g/dL Low 3.9 - 4.9 g/dL [facility] ALP [Catalytic activity/Vol] 56 U/L 38 - 113 U/L [facility] ALT With P-5'-P [Catalytic activity/Vol] 18 U/L 10 - 54 U/L [facility] Anion gap [Moles/Vol] 9 mmol/L 8 - 15 mmol/L [facility] AST With P-5'-P [Catalytic activity/Vol] 24 U/L 14 - 40 U/L [facility] Bilirubin [Mass/Vol] 0.4 mg/dL 0.2 - 1 .3 mg/dL [facility] Calcium [Mass/Vol] 8.8 mg/dL 8.5 - 10. 2 mg/dL [facility] Chloride [Moles/Vol] 93 mmol/L Low 98 - 10 7 mmol/L [facility] CO2 [Moles/Vol] 28 mmol/L 22 - 30 mmol/L [facility] Creatinine [Mass/Vol] 0.86 mg/dL 0.73 - 1.22 mg/dL [facility] GFR/1.73 sq M.predicted among non-blacks MDRD (S/P/Bld) [Vol rate/Area] 93 mL/min/{1.73_m2} - PINF [facility] Comment on above: Estimated Glomerular Filtration Rate (eGFR) is calculated using the 2020 CKD-EPI creatinine equation. This equation utilizes serum creatinine, sex, and age as parameters. The creatinine assay has traceable calibration to isotope dilution-mass spectrometry. Refer to KDIGO guidelines for clinical interpretation. In patients with unstable renal function, e.g. those with acute kidney injury, the eGFR may not accurately reflect actual GFR. Glucose [Mass/Vol] 88 mg/dL 74 - 99 mg/dL [facility] Comment on above: The [place] Diabete s Association (ADA) provides guidance for cutoff values for fasting glucose and random glucose. The ADA defines fasting as no caloric intake for at least 8 hours. Fasting plasma glucose results between 100 to 125 mg/dL indicate increased risk for diabetes (prediabetes). Fasting plasma glucose results greater than or equal to 126 mg/dL meet the criteria for diagnosis of diabetes. In the absence of unequivocal hyperglycemia, results should be confirmed by repeat testing. In a patient with classic symptoms of hyperglycemia or hyperglycemic crisis, random plasma glucose results greater than or equal to 200 mg/dL meet the criteria for diagnosis of diabetes. Reference: Standards of Medical Care in Diabetes 2016, [place] Diabetes Association. Diabetes Care. 2016.39(Suppl 1). Interpretation and review of laboratory results Abnormal [facility] Potassium [Moles/Vol] 5.1 mmol/L 3.7 - 5.1 mmol/L [facility] Protein [Mass/Vol] 6.6 g/dL 6.3 - 8.0 g/dL [facility] Sodium [Moles/Vol] 130 mmol/L Low 136 - 144 mmol/L [facility] Urea nitrogen [Mass/Vol] 7 mg/dL Low 9 - 24 mg/dL [facility] Albumin [Mass/Vol] 3.7 g/dL Low 3.9-4.9 [facility] Comment on above: Order Comment: Speci men Type: BLOOD SPECIMENOrdering Facility: [facility] Address: [address] [place] [address] Performed By: #### 2 4323-8 ####[facility] [place] LABCLIA [id number] [place] [address] [place] ALP [Catalytic activity/Vol] 56 U/L Normal 38-113 [facility] Comment on above: Order Comment: Speci men Type: BLOOD SPECIMENOrdering Facility: [facility] Address: [address] [place] [address] Performed By: #### 2 4323-8 ####[facility] [place] LABCLIA [id number] [facility] [place] [address] [place] [facility] ALT With P-5'-P [Catalytic activity/Vol] 18 U/L Normal 10-54 [facility] Comment on above: Order Comment: Speci men Type: BLOOD SPECIMENOrdering Facility: [facility] Address: [address] [place] [address] Performed By: #### 2 4323-8 ####[facility] [place] LABCLIA [id number] [place] [address] [place] Anion gap [Moles/Vol] 9 mmol/L Normal 8-15 [facility] Comment on above: Order Comment: Speci men Type: BLOOD SPECIMENOrdering Facility: [facility] Address: [address] [place] [address] Performed By: #### 2 4323-8 ####[facility] [place] LABCLIA [id number] [facility] [place] [address] [place] AST With P-5'-P [Catalytic activity/Vol] 24 U/L Normal 14-40 [facility] Comment on above: Order Comment: Speci men Type: BLOOD SPECIMENOrdering Facility: [facility] Address: [address] [place] [address] Performed By: #### 2 4323-8 ####[facility] [place] LABCLIA [id number] [place] [address] [place] Bilirubin [Mass/Vol] 0.4 mg/dL Normal 0.2-1.3 [facility] Comment on above: Order Comment: Speci men Type: BLOOD SPECIMENOrdering Facility: [facility] Address: [address] [place] [address] Performed By: #### 2 4323-8 ####[facility] [place] LABCLIA [id number] [place] [facility] [place] [address] [place] Calcium [Mass/Vol] 8.8 mg/dL Normal 8.5-10.2 [facility] Comment on above: Order Comment: Speci men Type: BLOOD SPECIMENOrdering Facility: [facility] Address: [address] [place] [address] Performed By: #### 2 4323-8 ####[facility] [place] LABCLIA [id number] [facility] [place] [address] [place] Chloride [Moles/Vol] 93 mmol/L Low 98-107 [facility] Comment on above: Order Comment: Speci men Type: BLOOD SPECIMENOrdering Facility: [facility] Address: [address] [place] [address] Performed By: #### 2 4323-8 ####[facility] [place] LABCLIA [id number] [facility] [place] [place] [address] [place] CO2 [Moles/Vol] 28 mmol/L Normal 22-30 [facility] Comment on above: Order Comment: Speci men Type: BLOOD SPECIMENOrdering Facility: [facility] Address: [address] [place] [address] Performed By: #### 2 4323-8 ####[facility] [place] LABCLIA [id number] [facility] [place] [place] [address] [place] Creatinine [Mass/Vol] 0.86 mg/dL Normal 0.73-1.22 [facility] Comment on above: Order Comment: Speci men Type: BLOOD SPECIMENOrdering Facility: [facility] Address: [address] [place] [address] Performed By: #### 2 4323-8 ####[facility] LABCLIA [id number] [place] [address] [facility] [place] Creatinine and Glomerular filtration rate.predicted panel (S/P/Bld) 93 mL/min/1.73m??? Normal >=60 [facility] Comment on above: Order Comment: Elgin egan Type: BLOOD SPECIMENOrdering Facility: [facility] Address: [address] [place] [address] Result Comment: Tamika mated Glomerular Filtration Rate (eGFR) is calculated using the 2020 CKD-EPI creatinine equation. This equation utilizes serum creatinine, sex, and age as parameters. The creatinine assay has traceable calibration to isotope dilution-mass spectrometry. Refer to KDIGO guidelines for clinical interpretation. In patients with unstable renal function, e.g. those with acute kidney injury, the eGFR may not accurately reflect actual GFR. Performed By: #### 2 4323-8 ####[facility] [employer] LABCLIA [id number] [place] [id number] [place] Glucose [Mass/Vol] 88 mg/dL Normal 74-99 [facility] Comment on above: Order Comment: Elgin egan Type: BLOOD SPECIMENOrdering Facility: [facility] Address: [address] [place] [address] Result Comment: The [place] Diabetes Association (ADA) provides guidance for cutoff values for fasting glucose and random glucose. The ADA defines fasting as no caloric intake for at least 8 hours. Fasting plasma glucose results between 100 to 125 mg/dL indicate increased risk for diabetes (prediabetes). Fasting plasma glucose results greater than or equal to 126 mg/dL meet the criteria for diagnosis of diabetes. In the absence of unequivocal hyperglycemia, results should be confirmed by repeat testing. In a patient with classic symptoms of hyperglycemia or hyperglycemic crisis, random plasma glucose results greater than or equal to 200 mg/dL meet the criteria for diagnosis of diabetes. Reference: Standards of Medical Care in Diabetes 2016, [place] Diabetes Association. Diabetes Care. 2016.39(Suppl 1). Performed By: #### 2 4323-8 ####[employer] LABCLIA [id number] [place] [address] [facility] Potassium [Moles/Vol] 5.1 mmol/L Normal 3.7-5.1 [facility] Comment on above: Order Comment: Speci men Type: BLOOD SPECIMENOrdering Facility: [facility] Address: [address] [place] [address] Performed By: #### 2 4323-8 ####[employer] [facility] LABCLIA [id number] [place] [address] [facility] Protein [Mass/Vol] 6.6 g/dL Normal 6.3-8.0 [facility] Comment on above: Order Comment: Speci men Type: BLOOD SPECIMENOrdering Facility: [facility] Address: [address] [place] [address] Performed By: #### 2 4323-8 ####[facility] LABCLIA [id number] [place] [address] [facility] Sodium [Moles/Vol] 130 mmol/L Low 136-144 [facility] Comment on above: Order Comment: Speci men Type: BLOOD SPECIMENOrdering Facility: [facility] Address: [address] [place] [address] Performed By: #### 2 4323-8 ####[facility] LABCLIA [id number] [place] [address] [facility] Urea nitrogen [Mass/Vol] 7 mg/dL Low 9-24 [facility] Comment on above: Order Comment: Speci men Type: BLOOD SPECIMENOrdering Facility: [facility] Address: [address] [place] [address] Performed By: #### 2 4323-8 ####[facility] LABCLIA [id number] [place] [address] [facility] Yamileth 11-09-2024 DIMITRI Telephone (MUKESH) ----- NICHOLASMARS ([id number]) 1955 M DEF Date Time Provider Department 11/09/24 ALMA GILL During your visit today, we recorded the following information about you: Priya Pedersen MA 11/09/2024 8:14 AM Signed Form received from [facility] placed on signing tray VANNA Rojas Julie, MA 11/16/2024 8:11 AM Signed Faxed Priya Pedersen MA Allergies As of Date: 11/09/2024 Noted Allergy Reaction ANIMAL DANDER 08/21/2022 14 - Other: See Comments Comments: Anything with fur SEASONAL ALLERGIES 08/21/2022 14 - Other: See Comments Comments: Stuffy nose, headaches Date Reviewed: 10/29/2024 Reviewed by: Tru Lucas PA-C - Fully Assessed Reason for Visit: Electronic Communication [890] Forms [913] Prescriptions as of 11/16/2024 - predniSONE (DELTASONE) 5 mg tablet Take 1 tablet by mouth once daily. - guaiFENesin (MUCINEX) 600 mg 12 hr tablet Take 1 tablet by mouth two times a day. - azaTHIOprine (IMURAN) 50 mg tablet Take 1 tablet by mouth once daily. - colestipol (COLESTID) 1 gram tablet Take 1 tablet by mouth two times a day. - sulfamethoxazole-trimetho prim (BACTRIM DS) 800-160 mg per tablet Take 1 tablet by mouth two times a day for 4 days, THEN 1 tablet daily before breakfast. - acyclovir (ZOVIRAX) 400 mg tablet TAKE 1 TABLET BY MOUTH EVERY DAY - traZODone (DESYREL) 100 mg tablet TAKE 2 TABLETS BY MOUTH EVERY DAY AT BEDTIME - isosorbide mononitrate ER (IMDUR) 30 mg 24 hr tablet Take 1 tablet by mouth once daily. - gabapentin (NEURONTIN) 300 mg capsule TAKE 2 CAPSULES BY MOUTH EVERY MORNING AND 3 CAPSULES AT BEDTIME FOR 30 DAYS. Strength: 300 mg - hydrOXYzine HCl (ATARAX) 25 mg tablet Take 2 tablets by mouth two times a day. - budesonide (PULMICORT) 0.5 mg/2 mL nebulizer solution Use 2 mL via nebulizer two times a day. - ipratropium-albuterol (DUONEB) 0.5 mg-3 mg(2.5 mg base)/3 mL nebu Inhale 3 mL as instructed every 4 hours while awake. - metoprolol succinate ER (TOPROL XL) 25 mg 24 hr tablet Take 1 tablet by mouth every afternoon. - clopidogrel (PLAVIX) 75 mg tablet Take 1 tablet by mouth once daily. - pantoprazole DR (PROTONIX) 40 mg tablet Take 1 tablet by mouth once daily. - rosuvastatin (CRESTOR) 20 mg tablet Take 1 tablet by mouth daily at bedtime. - lisinopril 2.5 mg tablet Take 1 tablet by mouth two times a day. Hold if SBP less than 110 - ezetimibe (ZETIA) 10 mg tablet Take 1 tablet by mouth once daily. - furosemide (LASIX) 40 mg tablet Take 1 tablet by mouth three times a week. - escitalopram oxalate (LEXAPRO) 20 mg tablet Take 1 tablet by mouth once daily. - OXYGEN, HOME THERAPY, 3 L/min by Nasal Cannula route as directed. - fluticasone (FLONASE) 50 mcg/actuation nasal spray spray 1 spray into each nostril every day - nitroglycerin sublingual (NITROSTAT) 0.4 mg SL tablet Dissolve 1 tablet under the tongue every 5 minutes as needed for chest pain. - albuterol sulfate 90 mcg/actuation aebs Inhale 1-2 Puffs as instructed every 4 hours as needed for wheezing/shortness of breath. - Lactobacillus acidophilus (PROBIOTIC) 10 billion cell cap Take 1 capsule by mouth once daily. - acetaminophen (TYLENOL EXTRA STRENGTH) 500 mg tablet Take 2 tablets by mouth every 8 hours as needed for pain. FOR PAIN. - Zinc 50 mg tab Take 50 mg by mouth once daily. - aspirin, enteric coated (ASPIRIN, ENTERIC COATED) 81 mg EC tablet Take 81 mg by mouth once daily. - multivit-min/folic/vit K/lycop (ONE-A-DAY MEN'S MULTIVITAMIN ORAL) Take by mouth once daily. 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] 11/23/2021 09/18/2023 Umbilical hernia [K42.9] 11/23/2021 Pressure injury of right buttock, stage 2 ([facility])*02/01/2022 09/18/2023 Pressure injury of left buttock, stage 2 ([facility]) *02/01/2022 09/18/2023 Chest pain [R07.9] 02/01/2022 10/12/2024 Essential tremor [G25.0] 02/01/2022 Anxiety and depression [F41.9, F32.A] 02/01/2022 SOB (shortness of breath) [R06.02] 02/15/2022 10/12/2024 Impaired fasting glucose [R73.01] 06/04/2022 Mixed hyperlipidemia [E78.2] 06/04/2022 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1] 06/04/2022 Hyponatremia [E87.1] 06/04/2022 Post PTCA [Z98.61] 08/08/2022 AZRA (acute kidney injury) ([facility]) [N17.9] 08/10/2022 01/16/2024 Coronary artery dissection [I25.42] 08/11/2022 SOB (shortness of breath) on exe (more content not included)... Normal [facility] CNPN Telephone (MUKESH) ----- MARS PETERSON ([id number]) 1955 M DEF Date Time Provider Department 11/09/24 ALMA GILL During your visit today, we recorded the following information about you: Precious Lacy MA 11/09/2024 3:49 PM Signed Royer physical therapist with [facility] left message stating he saw patient today for recertification and plans to see patient twice a week for 3 weeks then once a week for 4 weeks. Requesting verbal okay for plan of care. States when calling back okay to leave message. Please advise. VANNA Silveira Brittny A, APRN.[facility] 11/09/2024 5:53 PM Signed Verbal order given. Suzanne Almaguer MA 11/10/2024 7:30 AM Signed Royer barrera verbal order. Suzanne Almaguer MA Allergies As of Date: 11/09/2024 Noted Allergy Reaction ANIMAL DANDER 08/21/2022 14 - Other: See Comments Comments: Anything with fur SEASONAL ALLERGIES 08/21/2022 14 - Other: See Comments Comments: Stuffy nose, headaches Date Reviewed: 10/29/2024 Reviewed by: Tru Lucas PA-C - Fully Assessed Reason for Visit: Patient Update [1234] Prescriptions as of 11/10/2024 - colestipol (COLESTID) 1 gram tablet Take 1 tablet by mouth two times a day. - sulfamethoxazole-trimetho prim (BACTRIM DS) 800-160 mg per tablet Take 1 tablet by mouth two times a day for 4 days, THEN 1 tablet daily before breakfast. - acyclovir (ZOVIRAX) 400 mg tablet TAKE 1 TABLET BY MOUTH EVERY DAY - traZODone (DESYREL) 100 mg tablet TAKE 2 TABLETS BY MOUTH EVERY DAY AT BEDTIME - isosorbide mononitrate ER (IMDUR) 30 mg 24 hr tablet Take 1 tablet by mouth once daily. - gabapentin (NEURONTIN) 300 mg capsule TAKE 2 CAPSULES BY MOUTH EVERY MORNING AND 3 CAPSULES AT BEDTIME FOR 30 DAYS. Strength: 300 mg - hydrOXYzine HCl (ATARAX) 25 mg tablet Take 2 tablets by mouth two times a day. - budesonide (PULMICORT) 0.5 mg/2 mL nebulizer solution Use 2 mL via nebulizer two times a day. - ipratropium-albuterol (DUONEB) 0.5 mg-3 mg(2.5 mg base)/3 mL nebu Inhale 3 mL as instructed every 4 hours while awake. - metoprolol succinate ER (TOPROL XL) 25 mg 24 hr tablet Take 1 tablet by mouth every afternoon. - clopidogrel (PLAVIX) 75 mg tablet Take 1 tablet by mouth once daily. - pantoprazole DR (PROTONIX) 40 mg tablet Take 1 tablet by mouth once daily. - rosuvastatin (CRESTOR) 20 mg tablet Take 1 tablet by mouth daily at bedtime. - lisinopril 2.5 mg tablet Take 1 tablet by mouth two times a day. Hold if SBP less than 110 - ezetimibe (ZETIA) 10 mg tablet Take 1 tablet by mouth once daily. - guaiFENesin (MUCINEX) 600 mg 12 hr tablet Take 1 tablet by mouth two times a day as needed for cold/allergy symptoms. - furosemide (LASIX) 40 mg tablet Take 1 tablet by mouth three times a week. - escitalopram oxalate (LEXAPRO) 20 mg tablet Take 1 tablet by mouth once daily. - OXYGEN, HOME THERAPY, 3 L/min by Nasal Cannula route as directed. - fluticasone (FLONASE) 50 mcg/actuation nasal spray spray 1 spray into each nostril every day - nitroglycerin sublingual (NITROSTAT) 0.4 mg SL tablet Dissolve 1 tablet under the tongue every 5 minutes as needed for chest pain. - albuterol sulfate 90 mcg/actuation aebs Inhale 1-2 Puffs as instructed every 4 hours as needed for wheezing/shortness of breath. - Lactobacillus acidophilus (PROBIOTIC) 10 billion cell cap Take 1 capsule by mouth once daily. - acetaminophen (TYLENOL EXTRA STRENGTH) 500 mg tablet Take 2 tablets by mouth every 8 hours as needed for pain. FOR PAIN. - Zinc 50 mg tab Take 50 mg by mouth once daily. - aspirin, enteric coated (ASPIRIN, ENTERIC COATED) 81 mg EC tablet Take 81 mg by mouth once daily. - multivit-min/folic/vit K/lycop (ONE-A-DAY MEN'S MULTIVITAMIN ORAL) Take by mouth once daily. 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 Normal [facility] CBC W Auto Differential pane l (Bld)on 11-02-2024 Basophils (Bld) [#/Vol] 0.04 10*3/uL Normal <0.11 [facility] Comment on above: Order Comment: Speci men Type: BLOOD SPECIMENOrdering Facility: External Submitter Address: , , Performed By: #### 5 7021-8 ####[facility] LABCLIA [id number] [facility] [address] [place] [address] [place] Basophils/100 WBC (Bld) 0.5 % Normal [facility] Comment on above: Order Comment: Speci men Type: BLOOD SPECIMENOrdering Facility: External Submitter Address: , , Performed By: #### 5 7021-8 ####[facility] LABCLIA [id number] [facility] [address], [place] [address] [place] [address] [place] Differential cell count method Nom (Bld) Auto Normal [facility] Comment on above: Order Comment: Speci men Type: BLOOD SPECIMENOrdering Facility: External Submitter Address: , , Performed By: #### 5 7021-8 ####[facility] LABCLIA [id number] [address] [place] [address] [place] Eosinophils (Bld) [#/Vol] 0.30 10*3/uL Normal <0.46 [facility] Comment on above: Order Comment: Speci men Type: BLOOD SPECIMENOrdering Facility: External Submitter Address: , , Performed By: #### 5 7021-8 ####[facility] LABCLIA [id number] [address], [address] [facility] Eosinophils/100 WBC (Bld) 3.9 % Normal [facility] Comment on above: Order Comment: Speci men Type: BLOOD SPECIMENOrdering Facility: External Submitter Address: , , Performed By: #### 5 7021-8 ####[facility] LABCLIA [id number] [address] [place] [address] [place] Erythrocyte distribution width (RBC) [Ratio] 15.7 % High 11.5-15.0 [facility] Comment on above: Order Comment: Speci men Type: BLOOD SPECIMENOrdering Facility: External Submitter Address: , , Performed By: #### 5 7021-8 ####[facility] LABCLIA [id number] [place] [address] [address] Hematocrit (Bld) [Volume fraction] 39.5 % Normal 39.0-51.0 [facility] Comment on above: Order Comment: Speci men Type: BLOOD SPECIMENOrdering Facility: External Submitter Address: , , Performed By: #### 5 7021-8 ####[facility] LABCLIA [id number] [address] OF [facility] Hemoglobin (Bld) [Mass/Vol] 12.1 g/dL Low 13.0-17.0 [facility] Comment on above: Order Comment: Speci men Type: BLOOD SPECIMENOrdering Facility: External Submitter Address: , , Performed By: #### 5 7021-8 ####[facility] LABCLIA [id number] [address] Immature granulocytes (Bld) [#/Vol] 0.06 10*3/uL Normal <0.10 [facility] Comment on above: Order Comment: Speci men Type: BLOOD SPECIMENOrdering Facility: External Submitter Address: , , Performed By: #### 5 7021-8 ####[facility] LABCLIA [id number] [address] Immature granulocytes/100 WBC (Bld) 0.8 % Normal [facility] Comment on above: Order Comment: Speci men Type: BLOOD SPECIMENOrdering Facility: External Submitter Address: , , Performed By: #### 5 7021-8 ####[facility] LABCLIA [id number] [address] Lymphocytes (Bld) [#/Vol] 1.85 10*3/uL Normal 1.00-4.00 [facility] Comment on above: Order Comment: Speci men Type: BLOOD SPECIMENOrdering Facility: External Submitter Address: , , Performed By: #### 5 7021-8 ####[facility] LABCLIA [id number] [address] [facility] Lymphocytes/100 WBC (Bld) 23.8 % Normal [facility] Comment on above: Order Comment: Speci men Type: BLOOD SPECIMENOrdering Facility: External Submitter Address: , , Performed By: #### 5 7021-8 ####[facility] LABIA [id number] [address] [place] MCH (RBC) [Entitic mass] 28.3 pg Normal 26.0-34.0 [facility] Comment on above: Order Comment: Speci men Type: BLOOD SPECIMENOrdering Facility: External Submitter Address: , , Performed By: #### 5 7021-8 ####[facility] [id number] [address] [place] MCHC (RBC) [Mass/Vol] 30.6 g/dL Normal 30.5-36.0 [facility] Comment on above: Order Comment: Speci men Type: BLOOD SPECIMENOrdering Facility: External Submitter Address: , , Performed By: #### 5 7021-8 ####[facility] [id number] [address] [facility] MCV (RBC) [Entitic vol] 92.3 fL Normal 80.0-100.0 [facility] Comment on above: Order Comment: Speci men Type: BLOOD SPECIMENOrdering Facility: External Submitter Address: , , Performed By: #### 5 7021-8 ####[facility] LABIA [id number] [address] Monocytes (Bld) [#/Vol] 0.90 10*3/uL High <0.87 [facility] Comment on above: Order Comment: Speci men Type: BLOOD SPECIMENOrdering Facility: External Submitter Address: , , Performed By: #### 5 7021-8 ####[facility] LABIA [id number] [address] [address] [id number], [place] [address] [place] Monocytes/100 WBC (Bld) 11.6 % Normal [facility] Comment on above: Order Comment: Speci men Type: BLOOD SPECIMENOrdering Facility: External Submitter Address: , , Performed By: #### 5 7021-8 ####[facility] LABCLIA [id number] [id number], [place] [address] [place] Neutrophils (Bld) [#/Vol] 4.63 10*3/uL Normal 1.45-7.50 [facility] Comment on above: Order Comment: Speci men Type: BLOOD SPECIMENOrdering Facility: External Submitter Address: , , Performed By: #### 5 7021-8 ####[facility] LABCLIA [id number] [facility] [id number], [place] [address] [place] Neutrophils/100 WBC (Bld) 59.4 % Normal [facility] Comment on above: Order Comment: Speci men Type: BLOOD SPECIMENOrdering Facility: External Submitter Address: , , Performed By: #### 5 7021-8 ####[facility] LABCLIA [id number] [facility] [address] [place] [address] [place] Nucleated RBC (Bld) [#/Vol] 10*3/uL Normal <0.01 [facility] Comment on above: Order Comment: Speci men Type: BLOOD SPECIMENOrdering Facility: External Submitter Address: , , Performed By: #### 5 7021-8 ####[facility] LABCLIA [id number] [address] [id number], [place] [address] [place] Nucleated RBC/100 WBC (Bld) [Ratio] 0.0 /100 WBC Normal [facility] Comment on above: Order Comment: Speci men Type: BLOOD SPECIMENOrdering Facility: External Submitter Address: , , Performed By: #### 5 7021-8 ####[facility] LABCLIA [id number] [address] [address] [id number], [place] [address] [place] Platelet mean volume (Bld) [Entitic vol] 9.1 fL Normal 9.0-12.7 [facility] Comment on above: Order Comment: Speci men Type: BLOOD SPECIMENOrdering Facility: External Submitter Address: , , Performed By: #### 5 7021-8 ####[facility] LABCLIA [id number] [address] [place] [address] [place] Platelets (Bld) [#/Vol] 259 10*3/uL Normal 150-400 [facility] Comment on above: Order Comment: Speci men Type: BLOOD SPECIMENOrdering Facility: External Submitter Address: , , Performed By: #### 5 7021-8 ####[facility] LABIA [id number] [address] [place] [address] [place] RBC (Bld) [#/Vol] 4.28 10*6/uL Normal 4.20-6.00 [facility] Comment on above: Order Comment: Speci men Type: BLOOD SPECIMENOrdering Facility: External Submitter Address: , , Performed By: #### 5 7021-8 ####[facility] LABIA [id number] [address] [place] [address] [place] WBC (Bld) [#/Vol] 7.78 10*3/uL Normal 3.70-11.00 [facility] Comment on above: Order Comment: Speci men Type: BLOOD SPECIMENOrdering Facility: External Submitter Address: , , Performed By: #### 5 7021-8 ####[facility] LABIA [id number] [address] [place] [address] [facility] [place] Yamileth 11-02-2024 DIMITRI Telephone (MUKESH) ----- MARS PETERSON ([id number]) 1955 M DEF Date Time Provider Department 11/02/24 AL[place] GILL During your visit today, we recorded the following information about you: Priya Pedersen MA 11/02/2024 7:43 AM Signed Form centerwell placed on signing tray VANNA Rojas Brittny A, APRN.[facility] 11/02/2024 10:10 AM Signed Form signed. Please return fax. Priya Pedersen MA 11/02/2024 1:39 PM Signed Faxed Priya Pedersen MA Allergies As of Date: 11/02/2024 Noted Allergy Reaction ANIMAL DANDER 08/21/2022 14 - Other: See Comments Comments: Anything with fur SEASONAL ALLERGIES 08/21/2022 14 - Other: See Comments Comments: Stuffy nose, headaches Date Reviewed: 10/29/2024 Reviewed by: Tru Lucas PA-C - Fully Assessed Reason for Visit: Electronic Communication [890] Forms [913] Prescriptions as of 11/02/2024 - colestipol (COLESTID) 1 gram tablet Take 1 tablet by mouth two times a day. - sulfamethoxazole-trimetho prim (BACTRIM DS) 800-160 mg per tablet Take 1 tablet by mouth two times a day for 4 days, THEN 1 tablet daily before breakfast. - predniSONE (DELTASONE) 5 mg tablet Take 2 tablets by mouth once daily for 2 days, THEN 1 tablet once daily for 21 days. - acyclovir (ZOVIRAX) 400 mg tablet TAKE 1 TABLET BY MOUTH EVERY DAY - traZODone (DESYREL) 100 mg tablet TAKE 2 TABLETS BY MOUTH EVERY DAY AT BEDTIME - isosorbide mononitrate ER (IMDUR) 30 mg 24 hr tablet Take 1 tablet by mouth once daily. - gabapentin (NEURONTIN) 300 mg capsule TAKE 2 CAPSULES BY MOUTH EVERY MORNING AND 3 CAPSULES AT BEDTIME FOR 30 DAYS. Strength: 300 mg - hydrOXYzine HCl (ATARAX) 25 mg tablet Take 2 tablets by mouth two times a day. - budesonide (PULMICORT) 0.5 mg/2 mL nebulizer solution Use 2 mL via nebulizer two times a day. - ipratropium-albuterol (DUONEB) 0.5 mg-3 mg(2.5 mg base)/3 mL nebu Inhale 3 mL as instructed every 4 hours while awake. - metoprolol succinate ER (TOPROL XL) 25 mg 24 hr tablet Take 1 tablet by mouth every afternoon. - clopidogrel (PLAVIX) 75 mg tablet Take 1 tablet by mouth once daily. - pantoprazole DR (PROTONIX) 40 mg tablet Take 1 tablet by mouth once daily. - rosuvastatin (CRESTOR) 20 mg tablet Take 1 tablet by mouth daily at bedtime. - lisinopril 2.5 mg tablet Take 1 tablet by mouth two times a day. Hold if SBP less than 110 - ezetimibe (ZETIA) 10 mg tablet Take 1 tablet by mouth once daily. - guaiFENesin (MUCINEX) 600 mg 12 hr tablet Take 1 tablet by mouth two times a day as needed for cold/allergy symptoms. - furosemide (LASIX) 40 mg tablet Take 1 tablet by mouth three times a week. - escitalopram oxalate (LEXAPRO) 20 mg tablet Take 1 tablet by mouth once daily. - OXYGEN, HOME THERAPY, 3 L/min by Nasal Cannula route as directed. - fluticasone (FLONASE) 50 mcg/actuation nasal spray spray 1 spray into each nostril every day - nitroglycerin sublingual (NITROSTAT) 0.4 mg SL tablet Dissolve 1 tablet under the tongue every 5 minutes as needed for chest pain. - albuterol sulfate 90 mcg/actuation aebs Inhale 1-2 Puffs as instructed every 4 hours as needed for wheezing/shortness of breath. - Lactobacillus acidophilus (PROBIOTIC) 10 billion cell cap Take 1 capsule by mouth once daily. - acetaminophen (TYLENOL EXTRA STRENGTH) 500 mg tablet Take 2 tablets by mouth every 8 hours as needed for pain. FOR PAIN. - Zinc 50 mg tab Take 50 mg by mouth once daily. - aspirin, enteric coated (ASPIRIN, ENTERIC COATED) 81 mg EC tablet Take 81 mg by mouth once daily. - multivit-min/folic/vit K/lycop (ONE-A-DAY MEN'S MULTIVITAMIN ORAL) Take by mouth once daily. Problem List As Of Date 11/02/2024 Noted Resolved Essential hypertension [I10] 05/24/2020 Peripheral vascular disease [I73.9] 05/24/2020 Chronic back pain [M54.9, G89.29] 05/24/2020 Obesity, Class II, BMI 35-39.9 [E66.812] 05/24/2020 Status post below knee amputation of right lowe*10/22/2020 Chronic diastolic congestive heart failure (HCC*11/23/2021 Coronary artery disease of ione artery of kell*11/23/2021 CVA (cerebral vascular accident) (HCC) [I63.9] 11/23/2021 11/20/2022 Neuropathy [G62.9] 11/23/2021 Osteomyelitis of foot (HCC) [M86.9] 11/23/2021 09/18/2023 Umbilical hernia [K42.9] 11/23/2021 Pressure injury of right buttock, stage 2 (HCC)*02/01/2022 09/18/2023 Pressure injury of left buttock, stage 2 (HCC) *02/01/2022 09/18/2023 Chest pain [R07.9] 02/01/2022 10/12/2024 Essential tremor [G25.0] 02/01/2022 Anxiety and depression [F41.9, F32.A] 02/01/2022 SOB (shortness of breath) [R06.02] 02/15/2022 10/12/2024 Impaired fasting glucose [R73.01] 06/04/2022 Mixed hyperlipidemia [E78.2] 06/04/2022 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 Normal [facility] CNPN Normal [facility] Comprehensive metabolic 2000 panelon 11-02-2024 ALP [Catalytic activity/Vol] 56 U/L Normal 38-113 [facility] Comment on above: Order Comment: Speci men Type: BLOOD SPECIMENOrdering Facility: External Submitter Address: , , Performed By: #### 2 5952-, ####[facility] LABCLIA [id number] [id number], [place] [address] [place] ALT [Catalytic activity/Vol] 16 U/L Normal 10-54 [facility] Comment on above: Order Comment: Speci men Type: BLOOD SPECIMENOrdering Facility: External Submitter Address: , , Performed By: #### 2 43606-18, ####[facility]CL[facility] [id number] [id number], [place] [address] [place] AST [Catalytic activity/Vol] 20 U/L Normal 14-40 [facility] Comment on above: Order Comment: Speci men Type: BLOOD SPECIMENOrdering Facility: External Submitter Address: , , Performed By: #### 2 43606-18, ####[facility]CL[facility] [id number] [address] [place] [address] [place] Bilirubin [Mass/Vol] 0.3 mg/dL Normal 0.2-1.3 [facility] Comment on above: Order Comment: Speci men Type: BLOOD SPECIMENOrdering Facility: External Submitter Address: , , Performed By: #### 2 43606-18, ####[facility] [id number] [address] [facility] [address] [place] [address] [place] Protein [Mass/Vol] 6.0 g/dL Low 6.3-8.0 [facility] Comment on above: Order Comment: Speci men Type: BLOOD SPECIMENOrdering Facility: External Submitter Address: , , Performed By: #### 2 4362-6, ####[facility]CLIA [id number] [address] [id number], [place] [address] [place] Renal Func 2000 Pnl SerPlon 11-02-2024 Albumin [Mass/Vol] 3.5 g/dL Low 3.9-4.9 [facility] Comment on above: Order Comment: Speci men Type: BLOOD SPECIMENOrdering Facility: External Submitter Address: , , Performed By: #### 2 436-6, ####[facility]CL[facility] [id number] [address] [place] [address] [place] Anion gap [Moles/Vol] 13 mmol/L Normal 8-15 [facility] Comment on above: Order Comment: Speci men Type: BLOOD SPECIMENOrdering Facility: External Submitter Address: , , Performed By: #### 2 4361-, ####[facility]CLIA [id number] [address] [place] [address] [place] Calcium [Mass/Vol] 8.8 mg/dL Normal 8.5-10.2 [facility] Comment on above: Order Comment: Speci men Type: BLOOD SPECIMENOrdering Facility: External Submitter Address: , , Performed By: #### 2 4361-10, ####[facility]CL[facility] [id number] [facility] [address] [place] [address] [place] Chloride [Moles/Vol] 92 mmol/L Low 98-107 [facility] Comment on above: Order Comment: Speci men Type: BLOOD SPECIMENOrdering Facility: External Submitter Address: , , Performed By: #### 2 4361-, ####[facility] [id number] [facility] [address] [place] [address] [place] CO2 [Moles/Vol] 23 mmol/L Normal 22-30 [facility] Comment on above: Order Comment: Speci men Type: BLOOD SPECIMENOrdering Facility: External Submitter Address: , , Performed By: #### 2 436-, ####[facility]CL[facility] [id number] [address] [facility] [address] [place] [address] [place] Creatinine [Mass/Vol] 0.88 mg/dL Normal 0.73-1.22 [facility] Comment on above: Order Comment: Elgin egan Type: BLOOD SPECIMENOrdering Facility: External Submitter Address: , , Performed By: #### 2 4362-6, 17624-8 ####[facility] LABCLIA [id number] [place] [id number] [place] Creatinine and Glomerular filtration rate.predicted panel (S/P/Bld) 92 mL/min/1.73m??? Normal >=60 [facility] Comment on above: Order Comment: Elgin egan Type: BLOOD SPECIMENOrdering Facility: External Submitter Address: , , Result Comment: Tamika mated Glomerular Filtration Rate (eGFR) is calculated using the 2020 CKD-EPI creatinine equation. This equation utilizes serum creatinine, sex, and age as parameters. The creatinine assay has traceable calibration to isotope dilution-mass spectrometry. Refer to KDIGO guidelines for clinical interpretation. In patients with unstable renal function, e.g. those with acute kidney injury, the eGFR may not accurately reflect actual GFR. Performed By: #### 2 4362-6, 78601-3 ####[facility] LABCLIA [id number] [place] [id number] [place] Glucose [Mass/Vol] 110 mg/dL High 74-99 [facility] Comment on above: Order Comment: Elgin egan Type: BLOOD SPECIMENOrdering Facility: External Submitter Address: , , Result Comment: The [place] Diabetes Association (ADA) provides guidance for cutoff values for fasting glucose and random glucose. The ADA defines fasting as no caloric intake for at least 8 hours. Fasting plasma glucose results between 100 to 125 mg/dL indicate increased risk for diabetes (prediabetes).Fasting plasma glucose results greater than or equal to 126 mg/dL meet the criteria for diagnosis of diabetes. In the absence of unequivocal hyperglycemia, results should be confirmed by repeat testing. In a patient with classic symptoms of hyperglycemia or hyperglycemic crisis, random plasma glucose results greater than or equal to 200 mg/dL meet the criteria for diagnosis of diabetes.Reference: Standards of Medical Care in Diabetes 2016, [place] [employer] Association. Diabetes Care. 2016.39(Suppl 1). Performed By: #### 2 4362-6, 72329-9 ####[facility] LABIA [id number] [address] [address] [place] Potassium [Moles/Vol] 4.5 mmol/L Normal 3.7-5.1 [facility] Comment on above: Order Comment: Speci men Type: BLOOD SPECIMENOrdering Facility: External Submitter Address: , , Performed By: #### 2 4362-6, ####[facility] LABIA [id number] [address] [address] [place] Sodium [Moles/Vol] 128 mmol/L Low 136-144 [facility] Comment on above: Order Comment: Speci men Type: BLOOD SPECIMENOrdering Facility: External Submitter Address: , , Performed By: #### 2 4362-6, ####[facility] [id number] [place] [id number] [place] Urea nitrogen [Mass/Vol] 9 mg/dL Normal 9-24 [facility] Comment on above: Order Comment: Speci men Type: BLOOD SPECIMENOrdering Facility: External Submitter Address: , , Performed By: #### 2 4362-6, ####[facility] LABIA [id number] [address] [address] [place] Renal function 2000 panelon 11-02-2024 Phosphate [Mass/Vol] 3.3 mg/dL Normal 2.7-4.8 [facility] Comment on above: Order Comment: Speci men Type: BLOOD SPECIMENOrdering Facility: External Submitter Address: , , Performed By: #### 2 4362-6, ####[facility] LABIA [id number] [address] [address] [place] CNOVon 10-29-2024 CNOV Normal [facility] CNPNon 10-29-2024 CNPN Telephone (MUKESH) ----- MARS PETERSON ([id number]) 1955 M DEF Date Time Provider Department 10/29/24 ALMA GILL During your visit today, we recorded the following information about you: Priya Pedersen MA 10/29/2024 1:20 PM Signed Form received from [facility] Order: [id number] placed on signing tray VANNA Rojas Brittny A, APRN.[facility] 11/02/2024 10:09 AM Signed Form signed. Please return fax. Priya Pedersen MA 11/02/2024 1:39 PM Signed Faxed Priya Pedersen MA Allergies As of Date: 10/29/2024 Noted Allergy Reaction ANIMAL DANDER 08/21/2022 14 - Other: See Comments Comments: Anything with fur SEASONAL ALLERGIES 08/21/2022 14 - Other: See Comments Comments: Stuffy nose, headaches Date Reviewed: 10/29/2024 Reviewed by: Tru Lucas PA-C - Fully Assessed Reason for Visit: Electronic Communication [890] Forms [913] Prescriptions as of 11/02/2024 - colestipol (COLESTID) 1 gram tablet Take 1 tablet by mouth two times a day. - sulfamethoxazole-trimetho prim (BACTRIM DS) 800-160 mg per tablet Take 1 tablet by mouth two times a day for 4 days, THEN 1 tablet daily before breakfast. - predniSONE (DELTASONE) 5 mg tablet Take 2 tablets by mouth once daily for 2 days, THEN 1 tablet once daily for 21 days. - acyclovir (ZOVIRAX) 400 mg tablet TAKE 1 TABLET BY MOUTH EVERY DAY - traZODone (DESYREL) 100 mg tablet TAKE 2 TABLETS BY MOUTH EVERY DAY AT BEDTIME - isosorbide mononitrate ER (IMDUR) 30 mg 24 hr tablet Take 1 tablet by mouth once daily. - gabapentin (NEURONTIN) 300 mg capsule TAKE 2 CAPSULES BY MOUTH EVERY MORNING AND 3 CAPSULES AT BEDTIME FOR 30 DAYS. Strength: 300 mg - hydrOXYzine HCl (ATARAX) 25 mg tablet Take 2 tablets by mouth two times a day. - budesonide (PULMICORT) 0.5 mg/2 mL nebulizer solution Use 2 mL via nebulizer two times a day. - ipratropium-albuterol (DUONEB) 0.5 mg-3 mg(2.5 mg base)/3 mL nebu Inhale 3 mL as instructed every 4 hours while awake. - metoprolol succinate ER (TOPROL XL) 25 mg 24 hr tablet Take 1 tablet by mouth every afternoon. - clopidogrel (PLAVIX) 75 mg tablet Take 1 tablet by mouth once daily. - pantoprazole DR (PROTONIX) 40 mg tablet Take 1 tablet by mouth once daily. - rosuvastatin (CRESTOR) 20 mg tablet Take 1 tablet by mouth daily at bedtime. - lisinopril 2.5 mg tablet Take 1 tablet by mouth two times a day. Hold if SBP less than 110 - ezetimibe (ZETIA) 10 mg tablet Take 1 tablet by mouth once daily. - guaiFENesin (MUCINEX) 600 mg 12 hr tablet Take 1 tablet by mouth two times a day as needed for cold/allergy symptoms. - furosemide (LASIX) 40 mg tablet Take 1 tablet by mouth three times a week. - escitalopram oxalate (LEXAPRO) 20 mg tablet Take 1 tablet by mouth once daily. - OXYGEN, HOME THERAPY, 3 L/min by Nasal Cannula route as directed. - fluticasone (FLONASE) 50 mcg/actuation nasal spray spray 1 spray into each nostril every day - nitroglycerin sublingual (NITROSTAT) 0.4 mg SL tablet Dissolve 1 tablet under the tongue every 5 minutes as needed for chest pain. - albuterol sulfate 90 mcg/actuation aebs Inhale 1-2 Puffs as instructed every 4 hours as needed for wheezing/shortness of breath. - Lactobacillus acidophilus (PROBIOTIC) 10 billion cell cap Take 1 capsule by mouth once daily. - acetaminophen (TYLENOL EXTRA STRENGTH) 500 mg tablet Take 2 tablets by mouth every 8 hours as needed for pain. FOR PAIN. - Zinc 50 mg tab Take 50 mg by mouth once daily. - aspirin, enteric coated (ASPIRIN, ENTERIC COATED) 81 mg EC tablet Take 81 mg by mouth once daily. - multivit-min/folic/vit K/lycop (ONE-A-DAY MEN'S MULTIVITAMIN ORAL) Take by mouth once daily. 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] 11/23/2021 09/18/2023 Umbilical hernia [K42.9] 11/23/2021 Pressure injury of right buttock, stage 2 (HCC)*02/01/2022 09/18/2023 Pressure injury of left buttock, stage 2 (HCC) *02/01/2022 09/18/2023 Chest pain [R07.9] 02/01/2022 10/12/2024 Essential tremor [G25.0] 02/01/2022 Anxiety and depression [F41.9, F32.A] 02/01/2022 SOB (shortness of breath) [R06.02] 02/15/2022 10/12/2024 Impaired fasting glucose [R73.01] 06/04/2022 Mixed hyperlipidemia [E78.2] 06/04/2022 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 Normal [facility] CNOVon 10-21-2024 CNOV Office Visit (AGHWW1 ) ----- MARS PETERSON ([id number]) 1955 M DEF Date Time Provider Department 10/21/24 9:45 AM BEAR HIDAL[facility] [id number] During your visit today, we recorded the following information about you: Respiration Weight Height 20/minute 120.2 kg 1.829 m Buddy Canales LPN 10/21/2024 11:49 AM Signed PT ASSESSMENT - CASTING ROOM Mars presents for Application of Cockup wrist splint. Patient has been instructed in Care and proper application of brace.. Patient to keep follow up appointment as scheduled. KIKE Thomas Alexander, Tech 10/21/2024 11:49 AM Signed .Bear Power PA-C 10/21/2024 11:49 AM Signed ORTHOPAEDIC OFFICE NOTE CHIEF COMPLAINT: Established Patient of the Right Hand (Denies pain) HISTORY OF PRESENT ILLNESS John Peterson is a 69-year-old male presenting for follow-up of a right hand boxer's fracture. John is 4.5 weeks post-injury from a right hand boxer's fracture and has been in an ulnar gutter cast since the last visit. He reports that his hand feels good and denies significant pain, noting only minimal discomfort when pressure is applied. He is able to make a fist with minimal stiffness in the ring and small fingers. John mentions that the cast was cumbersome, making it difficult to use his walker. He was recently hospitalized for sepsis and was discharged on 10/16/2024. He reports feeling better since being discharged. Reviewed nursing note and current pain scale. PAIN EVALUATION No data found in the last 1 encounters. 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 Peripheral vascular disease Right hand pain S/P CABG (coronary artery bypass graft) Umbilical hernia PAST SURGICAL HISTORY Procedure Laterality Date BACK SURGERY HX 2017 CABG (1) VEIN GRAFT AND ARTERIAL GRAFT 2002 CABG x4 COLONOSCOPY 2007 FINGER AMPUTATION (SPECIFY DIGIT) HX HIP SURGERY HX 2000 1999, 2019 Replacement Right and left LEG AMPUTATION HX Right 2018 PAST SURGICAL HISTORY OF coccyx for pilonidal cyst REMV CATARACT EXTRACAP,INSERT LENS Bilateral Social History Tobacco Use Smoking status: Former Current packs/day: 0.00 Average packs/day: 2.0 packs/day for 40.0 years (80.0 ttl pk-yrs) Types: Cigarettes Start date: 05/13/1961 Quit date: 05/13/2001 Years since quittin.4 Smokeless tobacco: Former Types: Chew Vaping Use Vaping status: Never Used Substance Use Topics Alcohol use: Yes Alcohol/week: 10.0 standard drinks of alcohol Types: 10 Cans of beer per week Drug use: Never Current Outpatient Medications Medication Sig potassium chloride ER (KLOR-CON) 20 mEq tablet Take 1 tablet by mouth two times a day for 6 days. sulfamethoxazole-trimetho prim (BACTRIM DS) 800-160 mg per tablet Take 1 tablet by mouth two times a day for 4 days, THEN 1 tablet daily before breakfast. predniSONE (DELTASONE) 5 mg tablet Take 2 tablets by mouth once daily for 2 days, THEN 1 tablet once daily for 21 days. acyclovir (ZOVIRAX) 400 mg tablet TAKE 1 TABLET BY MOUTH EVERY DAY traZODone (DESYREL) 100 mg tablet TAKE 2 TABLETS BY MOUTH EVERY DAY AT BEDTIME isosorbide mononitrate ER (IMDUR) 30 mg 24 hr tablet Take 1 tablet by mouth once daily. hydrOXYzine HCl (ATARAX) 25 mg tablet Take 2 tablets by mouth two times a day. budesonide (PULMICORT) 0.5 mg/2 mL nebulizer solution Use 2 mL via nebulizer two times a day. ipratropium-albuterol (DUONEB) 0.5 mg-3 mg(2.5 mg base)/3 mL nebu Inhale 3 mL as instructed every 4 hours while awake. metoprolol succinate ER (TOPROL XL) 25 mg 24 hr tablet Take 1 tablet by mouth every afternoon. clopidogrel (PLAVIX) 75 mg tablet Take 1 tablet by mouth once daily. pantoprazole DR (PROTONIX) 40 mg tablet Take 1 tablet by mouth once daily. rosuvastatin (CRESTOR) 20 mg tablet Take 1 tablet by mouth daily at bedtime. lisinopril 2.5 mg tablet Take 1 tablet by mouth two times a day. Hold if SBP less than 110 ezetimibe (ZETIA) 10 mg tablet Take 1 tablet by mouth once daily. guaiFENesin (MUCINEX) 600 mg 12 hr tablet Take 1 tablet by mouth two times a day as needed for cold/allergy symptoms. furosemide (LASIX) 40 mg tablet Take 1 tablet by mouth three times a week. escitalopram oxalate (LEXAPRO) 20 mg tablet Take 1 tablet by mouth once daily. colestipol (COLESTID) 1 gram tablet Take 1 tablet by mouth two times a day. OXYGEN, HOME THERAPY, 3 L/min by Nasal Cannula route as directed. fluticasone (FLONA (more content not included)... Normal [facility] XR Hand - right PA and Later al and Obliqueon 10-21-2024 Imaging: (10/21/2024) Radiograph (3 views) of the right hand: - Closed, displaced right fifth metacarpal neck fracture with mild impaction and shortening, displacement, and volar angulation. Slight comminution with a small fragment along the radial margin. Evidence of bone consolidation when compared to previous imaging. No significant change in fracture position when compared to previous imaging. [facility] RADIOLOGY [facility] Radiology Study observation (narrative) [facility] CNDSon 10-16-2024 CN HNO ID: [id number] Author: AGUSTÍN HERNÁNDEZ MD Service: Hospital Medicine Author Type: Physician Type: Discharge Summary Filed: 10/16/2024 11:19 Note Text: DISCHARGE SUMMARY PATIENT NAME: Mars Peterson Code Status: Full Code Highest Readmission Risk Score: 24 The 30 day readmissions risk score is derived from an internally validated risk model which evaluates patient level characteristics, utilization history, medication orders and lab results up until the day of discharge. Patients with a score of 39 or above are considered highest risk for readmission. Specific patient level drivers will be listed at the bottom of the summary. Admission Information Admission Information ADMIT DATE: 10/12/2024 DISCHARGE DATE: 10/16/2024 MY DOCTORS AND MEDICAL TEAM: My Main Hospital Doctor: Agustín Hernández MD Primary Care Provider: Alma Gill APRN.CNP My Medical Team Members: Treatment Team: Attending Provider: Agustín Hernández MD Consulting: Gm Johnson MD Primary Service: , [facility] Consulting: Francisco Holloway MD MY CONDITION AT DISCHARGE: Stable REASON I WAS IN THE HOSPITAL: Sepsis probably due to pneumonia. SUMMARY OF WHAT HAPPENED WHILE I WAS IN THE HOSPITAL: Some diarrhea but stool studies negative this can be seen with the pneumonia. The staphylococcal nasal culture was positive so increasing the Bactrim to 2 times a day for 4 days and then back to once daily. Also to finish course of Omnicef which will be for 3 more days starting tomorrow. Potassium replacement for 6 days. 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 S/P CABG x 4 Bilateral carotid artery stenosis Hyponatremia Hypokalemia Obesity, Class II, BMI 35-39.9 Chronic GERD Immunocompromised patient (HCC) Status post below knee amputation of right lower extremity (HCC) Anxiety and depression Neuropathy Resolved Problems: Fever OPERATIONS PERFORMED WHILE IN THE HOSPITAL: None IMPORTANT TEST/PROCEDURES: No procedures performed TEST RESULTS NOT AVAILABLE AT THIS TIME: No pending results Discharge Disposition Discharge Disposition: Home With Home Care Activity When You Leave the Hospital Resume pre-hospital activity As tolerated Diet Instructions Resume your pre-hospital diet For Pain When You Leave the Hospital Use acetaminophen (Tylenol) as recommended on the bottle Additional Provider to Provider Information: Disposition: Home health care Consultants: Dr. Johnson for infectious disease Dr. HOLLOWAY for pulmonology PROCEDURES: NONE CODE STATUS: Full code ACCEPTS BLOOD PRODUCTS: YES : ASSESSMENT/PLAN Reason for Admission: Oxygen dependent patient with interstitial fibrosis on Imuran with fever over 100 degrees diarrhea and increased cough Anticoagulation: Prior to admission:Aspirin and Plavix Current: Aspirin and Plavix-heparin 7500 units every 8 hours Smoking history: 40 pack years quit 2001 INTERVAL EVENTS: Mars H Peterson is a 69 year old male presented with past medical history of r diastolic heart failure, interstitial lung disease on 3 L of oxygen chronically, hypertension, CAD s/p CABG x 4, HILARIO, PVD s/p right BKA, anxiety/depression, hyperlipidemia, and hyponatremia who presents with feeling unwell. Admitted for fever in immunocompromised patient on Imuran having diarrhea and increased cough. No definite source of infection. Bactrim DS twice daily for 5 days then resume once daily Seems to be primarily pneumonia stopping metronidazole but will continue Omnicef for 6 doses starting tomorrow Patient to call Dr. Simon on resuming Imuran (azathioprine) after he has completed antibiotic Bactroban Nasal 5 more days Potassium supplementation Resuming prior home oxygen settings HISTORY HOSPITAL COURSE: Mars Peterson is a 69 year old male presented with past medical history of r diastolic heart failure, interstitial lung disease on 3 L of oxygen chronically, hypertension, CAD s/p CABG x 4, HILARIO, PVD s/p right BKA, anxiety/depression, hyperlipidemia, and hyponatremia who presents with feeling unwell. Patient states that his ill feelings started yesterday morning when he awoke suddenly at approximately 3 AM. At that time, he states that he was shaking but was able to fall back asleep till approximately 6 AM. At that time, he felt diaphoretic and his took his temperature which was found to be 100.9. They decided to wait until home health care came who found that his blood pressure was low and directed him to come to the emergency room. Interestingly, the patient als (more content not included)... Normal [facility] CONSULT PROGon 10-16-2024 CONSULT PROG HNO ID: [id number] Author: GM JOHNSON MD Service: Infectious Disease Author Type: Physician Type: Consult Progress Note Filed: 10/16/2024 14:41 Note Text: INFECTIOUS DISEASE PROGRESS NOTE Patient Name: Mars Peterson INTERVAL HISTORY: Feeling better No acute events overnight Declines SNF Patient Active Hospital Problem List: Sepsis due to pneumonia (HCC) Date Noted: 10/15/2024 Essential hypertension Date Noted: 05/24/2020 Peripheral vascular disease Date Noted: 05/24/2020 Obesity, Class II, BMI 35-39.9 Date Noted: 05/24/2020 Status post below knee amputation of right lower extremity (HCC) Date Noted: 10/22/2020 Chronic diastolic congestive heart failure (HCC) Date Noted: 11/23/2021 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 Date Noted: 11/23/2021 Neuropathy Date Noted: 11/23/2021 Anxiety and depression Date Noted: 02/01/2022 S/P CABG x 4 Date Noted: 06/04/2022 Hyponatremia Date Noted: 06/04/2022 Bilateral carotid artery stenosis Date Noted: 01/29/2023 Chronic GERD Date Noted: 06/20/2023 ILD (interstitial lung disease) (HCC) Date Noted: 09/09/2023 Chronic respiratory failure with hypoxia (HCC) Date Noted: 10/12/2024 Immunocompromised patient (HCC) Date Noted: 10/13/2024 Former smoker Date Noted: 10/13/2024 Hypokalemia Date Noted: 10/15/2024 ASSESSMENT: Sepsis (HCC) (POA: Yes) Essential hypertension (POA: Yes) Peripheral vascular disease (POA: Yes) Obesity, Class II, BMI 35-39.9 (POA: Yes) Status post below knee amputation of right lower extremity (HCC) (POA: Yes) Chronic diastolic congestive heart failure (HCC) (POA: Yes) 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 Can be changed to Omnicef orally if discharged prior to completion of treatment Stop Doxy On chronic prednisone Bactrim ppx Stool for c.diff and enteric panel negative I have reviewed and interpreted all lab test imaging studies and documentations from other healthcare providers I am monitoring antibiotics for side effects and toxicity MEDICATIONS: reviewed. Current Facility-Administered Medications Medication Dose Route Frequency heparin 7,500 Units injection 7,500 Units SUBCUTANEOUS q 8 HR NaCl 0.9% iv flush bag 20 mL INTRAVENOUS PRN cefTRIAXone iv piggyback 1 g in dextrose (iso-osmotic) 50 mL (ROCEPHIN) 1 g INTRAVENOUS q 24 H aluminum-magnesium hydroxide-simethicone 200-200-20 mg/5 mL 30 mL 30 mL ORAL q 6 H PRN acetaminophen 650 mg tab(s) (TYLENOL) 650 mg ORAL q 6 H PRN aspirin, enteric coated 81 mg tab(s) 81 mg ORAL DAILY clopidogrel 75 mg tab(s) (PLAVIX) 75 mg ORAL DAILY colestipol 1 g tab(s) (COLESTID) 1 g ORAL BID ezetimibe 10 mg tab(s) (ZETIA) 10 mg ORAL DAILY isosorbide mononitrate ER 30 mg tab(s) (IMDUR) 30 mg ORAL DAILY metoprolol succinate ER 25 mg tab(s) (TOPROL XL) 25 mg ORAL DAILY wLUNCH rosuvastatin 20 mg tab(s) (CRESTOR) 20 mg ORAL AT BEDTIME budesonide 0.5 mg/2 mL 0.5 mg (PULMICORT) 0.5 mg INHALATION BID ipratropium-albuterol 3 mL nebulizer solution (DUONEB) 3 mL INHALATION q 4 H while awake albuterol 2.5 mg /3 mL (0.083 %) 2.5 mg (PROVENTIL) 2.5 mg INHALATION q 4 H PRN lactobacillus rhamnosus 10 billion cell (CULTURELLE) capsule 1 capsule ORAL DAILY pantoprazole DR 40 mg tab(s) (PROTONIX) 40 mg ORAL DAILY escitalopram oxalate 20 mg tab(s) (LEXAPRO) 20 mg ORAL DAILY traZODone 200 mg tab(s) (DESYREL) 200 mg ORAL AT BEDTIME predniSONE 10 mg tab(s) (DELTASONE) 10 mg ORAL DAILY Followed by [START ON 10/19/2024] predniSONE 5 mg tab(s) (DELTASONE) 5 mg ORAL DAILY hydrOXYzine HCl 50 mg tab(s) (ATARAX) 50 mg ORAL BID lisinopril 2.5 mg tab(s) (ZESTRIL) 2.5 mg ORAL BID mupirocin 2 % 0.5 g nasal ointment (BACTROBAN) 0.5 g NASAL BID metroNIDAZOLE 500 mg tab(s) (FLAGYL) 500 mg ORAL q 8 H acyclovir 400 mg tab(s) (ZOVIRAX) 400 mg ORAL DAILY sulfamethoxazole-trimetho prim 800-160 mg 1 tablet (BACTRIM DS) 1 tablet ORAL BID potassium chloride ER 40 mEq tab(s) (KLOR-CON) 40 mEq ORAL BID PHYSICAL EXAM: Vital signs: BP 107/61 Pulse 77 Temp 36.9 ?C (98.4 ?F) (Oral) Resp 17 Ht 182.9 cm (6' 0.01") Wt 120.2 kg (264 lb 15.9 oz) SpO2 92% BMI 35.93 kg/m? Temp (24hrs), Av ?C (98.6 ?F), Min:36.7 ?C (98.1 ?F), Max:37.3 ?C (99.1 ?F) GENERAL APPEARANCE: Alert, NAD, obese, chronically ill appearing SKIN: No rashes NECK: Supple BACK: no CVAT. (more content not included)... Normal [facility] Basic metabolic 2000 panelon 10-15-2024 Anion gap [Moles/Vol] 15 mmol/L Normal 8-15 [facility] Comment on above: Order Comment: Elgin egan Type: BLOOD SPECIMEN Ordering Facility: [facility] Address: [address] [place] [address] Performed By: #### 2 4321-2 #### [facility] CLIA [id number] [address] [place] [address] [place] Calcium [Mass/Vol] 8.3 mg/dL Low 8.5-10.2 [facility] Comment on above: Order Comment: Elgin egan Type: BLOOD SPECIMEN Ordering Facility: [facility] Address: [address] [place] [address] Performed By: #### 2 4321-2 #### [facility] CLIA [id number] [address] [place] [address] [place] Chloride [Moles/Vol] 95 mmol/L Low 98-107 [facility] Comment on above: Order Comment: Elgin egan Type: BLOOD SPECIMEN Ordering Facility: [facility] Address: [address] [place] [address] Performed By: #### 2 4321-2 #### [facility] CLIA [id number] [address] [place] [address] [place] CO2 [Moles/Vol] 24 mmol/L Normal 22-30 [facility] Comment on above: Order Comment: Elgin egan Type: BLOOD SPECIMEN Ordering Facility: [facility] Address: [address] [place] [address] Performed By: #### 2 4321-2 #### [facility] CLIA [id number] [address] [place] Creatinine [Mass/Vol] 1.00 mg/dL Normal 0.73-1.22 [facility] Comment on above: Order Comment: Elgin egan Type: BLOOD SPECIMEN Ordering Facility: [facility] Address: [address] [place] [address] Performed By: #### 2 4321-2 #### [facility] CLIA [id number] [address] Creatinine and Glomerular filtration rate.predicted panel (S/P/Bld) 80 mL/min/1.73m??? Normal >=60 [facility] Comment on above: Order Comment: Elgin egan Type: BLOOD SPECIMEN Ordering Facility: [facility] Address: [address] [place] [address] Result Comment: Tamika mated Glomerular Filtration Rate (eGFR) is calculated using the 2020 CKD-EPI creatinine equation. This equation utilizes serum creatinine, sex, and age as parameters. The creatinine assay has traceable calibration to isotope dilution-mass spectrometry. Refer to KDIGO guidelines for clinical interpretation. In patients with unstable renal function, e.g. those with acute kidney injury, the eGFR may not accurately reflect actual GFR. Performed By: #### 2 4321-2 #### [facility] CLIA [id number] [address] [place] Glucose [Mass/Vol] 94 mg/dL Normal 74-99 [facility] Comment on above: Order Comment: Elgin egan Type: BLOOD SPECIMEN Ordering Facility: [facility] Address: [address] [place] [address] Result Comment: The [place] Diabetes Association (ADA) provides guidance for cutoff values for fasting glucose and random glucose. The ADA defines fasting as no caloric intake for at least 8 hours. Fasting plasma glucose results between 100 to 125 mg/dL indicate increased risk for diabetes (prediabetes). Fasting plasma glucose results greater than or equal to 126 mg/dL meet the criteria for diagnosis of diabetes. In the absence of unequivocal hyperglycemia, results should be confirmed by repeat testing. In a patient with classic symptoms of hyperglycemia or hyperglycemic crisis, random plasma glucose results greater than or equal to 200 mg/dL meet the criteria for diagnosis of diabetes. Reference: Standards of Medical Care in Diabetes 2016, [place] [employer] Association. Diabetes Care. 2016.39(Suppl 1). Performed By: #### 2 4321-2 #### [facility] CLIA [id number] [address] [place] [address] [place] Potassium [Moles/Vol] 3.1 mmol/L Low 3.7-5.1 [facility] Comment on above: Order Comment: Elgin egan Type: BLOOD SPECIMEN Ordering Facility: [facility] Address: [address] [place] [address] Performed By: #### 2 4321-2 #### [facility] CLIA [id number] [address] STATES OF [facility] Sodium [Moles/Vol] 134 mmol/L Low 136-144 [facility] Comment on above: Order Comment: Elgin egan Type: BLOOD SPECIMEN Ordering Facility: [facility] Address: [address] [place] [address] Performed By: #### 2 4321-2 #### [facility] CLIA [id number] [address] [place] [address] [place] Urea nitrogen [Mass/Vol] 15 mg/dL Normal 9-24 [facility] Comment on above: Order Comment: Elgin egan Type: BLOOD SPECIMEN Ordering Facility: [facility] Address: [address] [place] [address] Performed By: #### 2 4321-2 #### [facility] CLIA [id number] [address] [place] CBC panel Auto (Bld)on 10-15 Erythrocyte distribution width (RBC) [Ratio] 14.7 % Normal 11.5-15.0 [facility] Comment on above: Order Comment: Speci men Type: BLOOD SPECIMEN Ordering Facility: [facility] Address: [address] [place] [address] Performed By: #### 5 8410-2 #### [facility] CLIA [id number] [address] OF [facility] Hematocrit (Bld) [Volume fraction] 39.0 % Normal 39.0-51.0 [facility] Comment on above: Order Comment: Speci men Type: BLOOD SPECIMEN Ordering Facility: [facility] Address: [address] [place] [address] Performed By: #### 5 8410-2 #### [facility] CLIA [id number] [address] OF [facility] Hemoglobin (Bld) [Mass/Vol] 12.4 g/dL Low 13.0-17.0 [facility] Comment on above: Order Comment: Speci men Type: BLOOD SPECIMEN Ordering Facility: [facility] Address: [address] [place] [address] Performed By: #### 5 8410-2 #### [facility] CLIA [id number] [address] MCH (RBC) [Entitic mass] 28.3 pg Normal 26.0-34.0 [facility] Comment on above: Order Comment: Speci men Type: BLOOD SPECIMEN Ordering Facility: [facility] Address: [address] [place] [address] Performed By: #### 5 8410-2 #### [facility] CLIA [id number] [address] [place] MCHC (RBC) [Mass/Vol] 31.8 g/dL Normal 30.5-36.0 [facility] Comment on above: Order Comment: Speci men Type: BLOOD SPECIMEN Ordering Facility: [facility] Address: [address] [place] [address] Performed By: #### 5 8410-2 #### [facility] CLIA [id number] [address] [place] MCV (RBC) [Entitic vol] 89.0 fL Normal 80.0-100.0 [facility] Comment on above: Order Comment: Speci men Type: BLOOD SPECIMEN Ordering Facility: [facility] Address: [address] [place] [address] Performed By: #### 5 8410-2 #### [facility] CLIA [id number] [address] Nucleated RBC (Bld) [#/Vol] 10*3/uL Normal <0.01 [facility] Comment on above: Order Comment: Speci men Type: BLOOD SPECIMEN Ordering Facility: [facility] Address: [address] [place] [address] Performed By: #### 5 8410-2 #### [facility] CLIA [id number] [address] Platelet mean volume (Bld) [Entitic vol] 8.8 fL Low 9.0-12.7 [facility] Comment on above: Order Comment: Speci men Type: BLOOD SPECIMEN Ordering Facility: [facility] Address: [address] [place] [address] Performed By: #### 5 8410-2 #### [facility] CLIA [id number] [address] Platelets (Bld) [#/Vol] 194 10*3/uL Normal 150-400 [facility] Comment on above: Order Comment: Speci men Type: BLOOD SPECIMEN Ordering Facility: [facility] Address: [address] [place] [address] Performed By: #### 5 8410-2 #### [facility] CLIA [id number] [address] [place] RBC (Bld) [#/Vol] 4.38 10*6/uL Normal 4.20-6.00 [facility] Comment on above: Order Comment: Speci men Type: BLOOD SPECIMEN Ordering Facility: [facility] Address: [address] [place] [address] Performed By: #### 5 8410-2 #### [facility] CLIA [id number] [address] OF [place] WBC (Bld) [#/Vol] 8.44 10*3/uL Normal 3.70-11.00 [facility] Comment on above: Order Comment: Speci men Type: BLOOD SPECIMEN Ordering Facility: [facility] Address: [address] [place] [address] Performed By: #### 5 8410-2 #### [facility] CLIA [id number] [address] [place] [address] [facility] [place] CONSULT PROGon 10-15-2024 CONSULT PROG HNO ID: [id number] Author: GM JOHNSON MD Service: Infectious Disease Author Type: Physician Type: Consult Progress Note Filed: 10/16/2024 00:03 Note Text: INFECTIOUS DISEASE PROGRESS NOTE Patient Name: Mars Peterson INTERVAL HISTORY: WBC 8k Feeling better No new complaints Patient Active Hospital Problem List: Sepsis due to pneumonia (HCC) Date Noted: 10/15/2024 Essential hypertension Date Noted: 05/24/2020 Peripheral vascular disease Date Noted: 05/24/2020 Obesity, Class II, BMI 35-39.9 Date Noted: 05/24/2020 Status post below knee amputation of right lower extremity (HCC) Date Noted: 10/22/2020 Chronic diastolic congestive heart failure (HCC) Date Noted: 11/23/2021 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 Date Noted: 11/23/2021 Neuropathy Date Noted: 11/23/2021 Anxiety and depression Date Noted: 02/01/2022 S/P CABG x 4 Date Noted: 06/04/2022 Hyponatremia Date Noted: 06/04/2022 Bilateral carotid artery stenosis Date Noted: 01/29/2023 Chronic GERD Date Noted: 06/20/2023 ILD (interstitial lung disease) (HCC) Date Noted: 09/09/2023 Chronic respiratory failure with hypoxia (HCC) Date Noted: 10/12/2024 Immunocompromised patient (HCC) Date Noted: 10/13/2024 Former smoker Date Noted: 10/13/2024 Hypokalemia Date Noted: 10/15/2024 ASSESSMENT: Sepsis (HCC) (POA: Yes) Essential hypertension (POA: Yes) Peripheral vascular disease (POA: Yes) Obesity, Class II, BMI 35-39.9 (POA: Yes) Status post below knee amputation of right lower extremity (HCC) (POA: Yes) Chronic diastolic congestive heart failure (HCC) (POA: Yes) 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 (POA: Yes) Neuropathy (POA: Yes) Anxiety and depression (POA: Yes) Mixed hyperlipidemia (POA: Yes) S/P CABG x 4 (POA: Yes) Hyponatremia (POA: Yes) Bilateral carotid artery stenosis (POA: Yes) Chronic GERD (POA: Yes) ILD (interstitial lung disease) (HCC) (POA: Yes) Chronic respiratory failure with hypoxia (HCC) (POA: Yes) Diarrhea RECOMMENDATIONS: Follow-up blood culture results MRSA PCR positive Obtain mycoplasma PCR CT chest showed ILD Continue Rocephin, Flagyl for total of 7 days Stop Doxy On chronic prednisone Bactrim ppx Stool for c.diff and enteric panel negative I have reviewed and interpreted all lab test imaging studies and documentations from other healthcare providers I am monitoring antibiotics for side effects and toxicity MEDICATIONS: reviewed. Current Facility-Administered Medications Medication Dose Route Frequency heparin 7,500 Units injection 7,500 Units SUBCUTANEOUS q 8 HR NaCl 0.9% iv flush bag 20 mL INTRAVENOUS PRN cefTRIAXone iv piggyback 1 g in dextrose (iso-osmotic) 50 mL (ROCEPHIN) 1 g INTRAVENOUS q 24 H aluminum-magnesium hydroxide-simethicone 200-200-20 mg/5 mL 30 mL 30 mL ORAL q 6 H PRN acetaminophen 650 mg tab(s) (TYLENOL) 650 mg ORAL q 6 H PRN aspirin, enteric coated 81 mg tab(s) 81 mg ORAL DAILY clopidogrel 75 mg tab(s) (PLAVIX) 75 mg ORAL DAILY colestipol 1 g tab(s) (COLESTID) 1 g ORAL BID ezetimibe 10 mg tab(s) (ZETIA) 10 mg ORAL DAILY isosorbide mononitrate ER 30 mg tab(s) (IMDUR) 30 mg ORAL DAILY metoprolol succinate ER 25 mg tab(s) (TOPROL XL) 25 mg ORAL DAILY wLUNCH rosuvastatin 20 mg tab(s) (CRESTOR) 20 mg ORAL AT BEDTIME budesonide 0.5 mg/2 mL 0.5 mg (PULMICORT) 0.5 mg INHALATION BID ipratropium-albuterol 3 mL nebulizer solution (DUONEB) 3 mL INHALATION q 4 H while awake albuterol 2.5 mg /3 mL (0.083 %) 2.5 mg (PROVENTIL) 2.5 mg INHALATION q 4 H PRN lactobacillus rhamnosus 10 billion cell (CULTURELLE) capsule 1 capsule ORAL DAILY pantoprazole DR 40 mg tab(s) (PROTONIX) 40 mg ORAL DAILY escitalopram oxalate 20 mg tab(s) (LEXAPRO) 20 mg ORAL DAILY traZODone 200 mg tab(s) (DESYREL) 200 mg ORAL AT BEDTIME predniSONE 10 mg tab(s) (DELTASONE) 10 mg ORAL DAILY Followed by [START ON 10/19/2024] predniSONE 5 mg tab(s) (DELTASONE) 5 mg ORAL DAILY hydrOXYzine HCl 50 mg tab(s) (ATARAX) 50 mg ORAL BID lisinopril 2.5 mg tab(s) (ZESTRIL) 2.5 mg ORAL BID mupirocin 2 % 0.5 g nasal ointment (BACTROBAN) 0.5 g NASAL BID metroNIDAZOLE 500 mg tab(s) (FLAGYL) 500 mg ORAL q 8 H acyclovir 400 mg tab(s) (ZOVIRAX) 400 mg ORAL DAILY sulfamethoxazole-trimetho prim 800-160 mg 1 tablet (BACTRIM DS) 1 tablet ORAL BID potassium chloride ER 40 mEq tab(s) (KLOR-CON) 40 mEq ORAL BID PHYSICAL EXAM: Vital signs: BP 134/85 Pulse 75 Temp 37.1 ?C (98.8 ?F) (Oral) Resp 20 Ht 182.9 cm (6' 0.01") Wt 120.2 kg (264 lb 15.9 oz) SpO2 95% BMI 35.93 kg/m? Temp (24hrs), Av ?C (98.6 ?F), Min:36.7 ?C (98.1 ?F), Max:37.3 ?C (99.1 ?F) GENERAL APPEARANCE: Alert, NAD, obese, chronically ill appearing SKIN: No rashes NECK: Supple BACK: no CVAT. LUNGS: Clear HEART: Regular rate/rhythm, normal heart sounds, and no murmurs. ABDOMEN: Soft, non tender, no palpable gael (more content not included)... [facility] THERAPY NT 10-15-2024 THERAPY NT HNO ID: [id number] Author: LIZ LANG OT/L Service: ? Author Type: Occupational Therapist Type: Therapy (PT/OT/Speech/Resp) Filed: 10/15/2024 14:36 Note Text: ----- Summary: OT Missed Visit ----- OCCUPATIONAL THERAPY MISSED VISIT SERVICE DATE: 10/15/2024 SERVICE TIME: 1429 ROOM: [place] [address] Patient not seen due to Declined to Participate. Patient reports increasing back pain, declining OOB activity until he is medicated and able to participate -- RN aware of need for meds. Will re-attempt as able. SIGNATURE: ANGUS Mchugh PATIENT NAME: Mars Peterson DATE: October 15, 2024 TIME: 2:35 PM [facility] THERAPY NT HNO ID: [id number] Author: IBAN SEGURA PT Service: Physical Therapy Author Type: Physical Therapist Type: Therapy (PT/OT/Speech/Resp) Filed: 10/15/2024 14:15 Note Text: ----- Summary: PT evaluation ----- Physical Therapy Evaluation Summary SERVICE DATE: 10/15/2024 SERVICE TIME: 1139 to 1207 ROOM: [id number] PT 6 Clicks Score: 17 DISCHARGE RECOMMENDATIONS Subacute/SNF Recommended Discharge Disposition Comments: Patient with exacerbation of weakness, pain, impaired balance, impaired safety awareness and limited activity tolerance, causing him to require assistance with mobility and placing him at a risk of falls. Daily skilled PT treatment is indicated to address her impairments and promote return to prior level of independence and mobility. Recommended Discharge Disposition Due to: Functional deficits requiring ongoing therapy service prior to discharge home., Anticipated community discharge, Balance deficits, Requires multiple therapy disciplines, Weakness less than 3/5 in lower extremity Anticipated Discharge Needs: Physical Assist at Home, Supervision at Home, Family Training Physical Assist at Home for: Transfers, Ambulation, Cleaning, Laundry, Meals, Stairs, Safety, Self Care, Shopping, Transportation, Wheelchair Mobility Supervision at Home due to: Decreased safety awareness Recommended Discharge Equipment: No equipment needs anticipated ASSESSMENT Response to Therapy Interventions: Good Participation in Activities, Low Activity Tolerance, Needs Frequent Redirection or Reinstruction, Requires Additional Time to Complete Activities Patient functioning below baseline, requiring CGA/Tierra for mobility and placing him at a risk of falls. Frequent cues for breathing technique and assistance for righting reactions with all standing. PRECAUTIONS Fall Risk, Bed/Chair Alarm, Lines/Tubes/Drains, Weight Bearing Restrictions RLE prosthesis Right Upper Extremity Weight Bearing Status: WBAT (Per Dr. 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 Entry To Home: Stairs, Without Rail Number Of Stairs Into Home: 1 Number Of Stairs To Bed/Bath: 0 Tub/Shower Type: walk in shower with shower chair, grab bars and HHS Laundry: does laundry Equipment Owned: Wheelchair- Manual, Walker- Wheeled, Shower Chair, Prosthetic, Hospital Bed, BP Monitor, Commode- Raised, Grab Bars- Shower, Hand Held Shower, Grab Bars- Toilet, Lift Chair, Pulse Ox, Accounting Methods Analyst, Elevated Toilet Seat, Home Oxygen 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 Active with [facility] PT. >2 but less than 5 falls in the last 6 months. Indep with med management. Indep with ADL tasks. Spouse assist with IADL tasks. SUBJECTIVE Patient resting in bed upon approach. Alert and agreeable to PT evaluation. THERAPY DIAGNOSIS Reduced mobility-other, Muscle Weakness (generalized) TREATMENT INTERVENTIONS Evaluation, Therapeutic Activity (31833), Gait Training (44212) Timed Code Treatment (minutes): 13 Skilled Treatment Time (minutes): 28 $ Evaluation-Low (48388) Billed Units: 1 unit Therapeutic Activity (79179) Treatment Minutes: 11 $ Therapeutic Activity (23052) Billed Units: 1 unit Gait Training (66143) Treatment Minutes: 2 $ Gait Training (87219) Billed Units: 0 units TRAINING AND EDUCATION PROVIDED Advanced Balance Activities, Assistive Device Use, Benefits of In-Hospital Mobility, Bed Mobility, Discharge Planning, Role of Physical Therapy, Standing Balance, Transfers, Pre-gait Activities, Precautions/Restrictions, Positioning, Home Safety, Gait Pattern, Reduction of Deviations, Falls Prevention, Expected Functional Level THERAPEUTIC SKILLS USED Activity Dosing, Cues for Sequencing/Proper Technique for Activity, Cuing Tactile, Cuing Verbal, Management of Critical Lines, Tubes and/or Drains, Movement Facilitation, Physical Assist, Postural Alignment Correction FUNCTIONAL STATUS Bed Mobility Supine To Sit: Contact Guard Assistance, Additional Information HOB elevated to 30 degrees with cues for positioning and increased time to complete. Sit to Supine: Contact Guard Assistance, Additional Information cues for set-up and positioning with increased time to complete. Scooting: Contact Guard As (more content not included)... Normal [facility] Basic metabolic 2000 panelon 10-14-2024 Anion gap [Moles/Vol] 12 mmol/L Normal 8-15 [facility] Comment on above: Order Comment: Speci men Type: BLOOD SPECIMEN Ordering Facility: [facility] Address: [address] [place] [address] Performed By: #### 2 4321-2 #### [facility] CLIA [id number] [address] [place] [address] [place] Calcium [Mass/Vol] 8.5 mg/dL Normal 8.5-10.2 [facility] Comment on above: Order Comment: Speci men Type: BLOOD SPECIMEN Ordering Facility: [facility] Address: [address] [place] [address] Performed By: #### 2 4321-2 #### [facility] CLIA [id number] [address] [place] [address] [place] Chloride [Moles/Vol] 91 mmol/L Low 98-107 [facility] Comment on above: Order Comment: Speci men Type: BLOOD SPECIMEN Ordering Facility: [facility] Address: [address] [place] [address] Performed By: #### 2 4321-2 #### [facility] CLIA [id number] [address] [place] [address] [place] CO2 [Moles/Vol] 28 mmol/L Normal 22-30 [facility] Comment on above: Order Comment: Speci men Type: BLOOD SPECIMEN Ordering Facility: [facility] Address: [address] [place] [address] Performed By: #### 2 4321-2 #### [facility] CLIA [id number] [address] [place] [address] [place] Creatinine [Mass/Vol] 1.13 mg/dL Normal 0.73-1.22 [facility] Comment on above: Order Comment: Speci men Type: BLOOD SPECIMEN Ordering Facility: [facility] Address: [address] [place] [address] Performed By: #### 2 4321-2 #### [facility] CLIA [id number] [address] [place] [address] [place] Creatinine and Glomerular filtration rate.predicted panel (S/P/Bld) 69 mL/min/1.73m??? Normal >=60 [facility] Comment on above: Order Comment: Elgin egan Type: BLOOD SPECIMEN Ordering Facility: [facility] Address: [address] [place] [address] Result Comment: Tamika mated Glomerular Filtration Rate (eGFR) is calculated using the 2020 CKD-EPI creatinine equation. This equation utilizes serum creatinine, sex, and age as parameters. The creatinine assay has traceable calibration to isotope dilution-mass spectrometry. Refer to KDIGO guidelines for clinical interpretation. In patients with unstable renal function, e.g. those with acute kidney injury, the eGFR may not accurately reflect actual GFR. Performed By: #### 2 4321-2 #### [facility] CLIA [id number] [address] [place] [address] [place] Glucose [Mass/Vol] 146 mg/dL High 74-99 [facility] Comment on above: Order Comment: Elgin egan Type: BLOOD SPECIMEN Ordering Facility: [facility] Address: [address] [place] [address] Result Comment: The [place] Diabetes Association (ADA) provides guidance for cutoff values for fasting glucose and random glucose. The ADA defines fasting as no caloric intake for at least 8 hours. Fasting plasma glucose results between 100 to 125 mg/dL indicate increased risk for diabetes (prediabetes). Fasting plasma glucose results greater than or equal to 126 mg/dL meet the criteria for diagnosis of diabetes. In the absence of unequivocal hyperglycemia, results should be confirmed by repeat testing. In a patient with classic symptoms of hyperglycemia or hyperglycemic crisis, random plasma glucose results greater than or equal to 200 mg/dL meet the criteria for diagnosis of diabetes. Reference: Standards of Medical Care in Diabetes 2016, [place] [employer]. Diabetes Care. 2016.39(Suppl 1). Performed By: #### 2 4321-2 #### [facility] CLIA [id number] [address] [place] [address] [place] Potassium [Moles/Vol] 3.2 mmol/L Low 3.7-5.1 [facility] Comment on above: Order Comment: Elgin egan Type: BLOOD SPECIMEN Ordering Facility: [facility] Address: [address] [place] [address] Performed By: #### 2 4321-2 #### [facility] CLIA [id number] [address] [place] Sodium [Moles/Vol] 131 mmol/L Low 136-144 [facility] Comment on above: Order Comment: Speci men Type: BLOOD SPECIMEN Ordering Facility: [facility] Address: [address] [place] [address] Performed By: #### 2 4321-2 #### [facility] CLIA [id number] [address] [place] [address] [place] Urea nitrogen [Mass/Vol] 16 mg/dL Normal 9-24 [facility] Comment on above: Order Comment: Speci men Type: BLOOD SPECIMEN Ordering Facility: [facility] Address: [address] [place] [address] Performed By: #### 2 4321-2 #### [facility] CLIA [id number] [address] [place] CBC panel Auto (Bld)on 10-14 Erythrocyte distribution width (RBC) [Ratio] 14.7 % Normal 11.5-15.0 [facility] Comment on above: Order Comment: Speci men Type: BLOOD SPECIMEN Ordering Facility: [facility] Address: [address] [place] [address] Performed By: #### 1 988-5, HSTNT, 05079-0 #### [facility] CLIA [id number] [address] [place] [address] [place] Hematocrit (Bld) [Volume fraction] 36.6 % Low 39.0-51.0 [facility] Comment on above: Order Comment: Speci men Type: BLOOD SPECIMEN Ordering Facility: [facility] Address: [address] [place] [address] Performed By: #### 1 988-5, HSTNT, 88741-4 #### [facility] CLIA [id number] [address] [place] Hemoglobin (Bld) [Mass/Vol] 11.7 g/dL Low 13.0-17.0 [facility] Comment on above: Order Comment: Speci men Type: BLOOD SPECIMEN Ordering Facility: [facility] Address: [address] [place] [address] Performed By: #### 1 988-5, HSTNT, 46488-6 #### [facility] CLIA [id number] [address] MCH (RBC) [Entitic mass] 28.7 pg Normal 26.0-34.0 [facility] Comment on above: Order Comment: Speci men Type: BLOOD SPECIMEN Ordering Facility: [facility] Address: [address] [place] [address] Performed By: #### 1 988-5, HSTNT, 66786-1 #### [facility] CLIA [id number] [address] [place] MCHC (RBC) [Mass/Vol] 32.0 g/dL Normal 30.5-36.0 [facility] Comment on above: Order Comment: Speci men Type: BLOOD SPECIMEN Ordering Facility: [facility] Address: [address] [place] [address] Performed By: #### 1 988-5, HSTNT, 03336-0 #### [facility] CLIA [id number] [address] STATES OF [facility] MCV (RBC) [Entitic vol] 89.7 fL Normal 80.0-100.0 [facility] Comment on above: Order Comment: Speci men Type: BLOOD SPECIMEN Ordering Facility: [facility] Address: [address] [place] [address] Performed By: #### 1 988-5, HSTNT, 68799-1 #### [facility] CLIA [id number] [address] Nucleated RBC (Bld) [#/Vol] 10*3/uL Normal <0.01 [facility] Comment on above: Order Comment: Speci men Type: BLOOD SPECIMEN Ordering Facility: [facility] Address: [address] [place] [address] Performed By: #### 1 988-5, HSTNT, 40288-4 #### [facility] CLIA [id number] [address] [place] [address] [place] Platelet mean volume (Bld) [Entitic vol] 8.8 fL Low 9.0-12.7 [facility] Comment on above: Order Comment: Speci men Type: BLOOD SPECIMEN Ordering Facility: [facility] Address: [address] [place] [address] Performed By: #### 1 988-5, HSTNT, 33095-1 #### [facility] CLIA [id number] [address] [place] [address] [place] Platelets (Bld) [#/Vol] 200 10*3/uL Normal 150-400 [facility] Comment on above: Order Comment: Speci men Type: BLOOD SPECIMEN Ordering Facility: [facility] Address: [address] [place] [address] Performed By: #### 1 988-5, HSTNT, 29169-8 #### [facility] CLIA [id number] [address] [place] [address] [place] RBC (Bld) [#/Vol] 4.08 10*6/uL Low 4.20-6.00 [facility] Comment on above: Order Comment: Speci men Type: BLOOD SPECIMEN Ordering Facility: [facility] Address: [address] [place] [address] Performed By: #### 1 988-5, HSTNT, 80989-6 #### [facility] CLIA [id number] [address] [place] [address] [place] WBC (Bld) [#/Vol] 9.72 10*3/uL Normal 3.70-11.00 [facility] Comment on above: Order Comment: Speci men Type: BLOOD SPECIMEN Ordering Facility: [facility] Address: [address] [place] [address] Performed By: #### 1 988-5, HSTNT, 91612-6 #### [facility] CLIA [id number] [address] [place] CONSULT PROGon 10-14-2024 CONSULT PROG HNO ID: [id number] Author: KOJO AWAN RPh Service: Pharmacy Author Type: Pharmacist Type: Consult Progress Note Filed: 10/14/2024 11:26 Note Text: PHARMACY PROGRESS NOTE Patient Name: Mars Peterson Admission Date: 10/12/2024 Date of Consult: 10/14/2024 Time of Consult: 11:25 AM In accordance with the inpatient pharmacy consult agreement the following medication changes have been made: IV to PO Discontinue IV Flagyl, change to PO Flagyl per IV to PO guidelines. Pharmacy will continue to monitor patient for continued eligibility of these medication changes. Please call with any questions or concerns. SIGNATURE: Kojo Awan RPh DATE/TIME: 10/14/2024 11:25 AM [facility] CONSULT PROG HNO ID: [id number] Author: GM JOHNSON MD Service: Infectious Disease Author Type: Physician Type: Consult Progress Note Filed: 10/14/2024 22:31 Note Text: INFECTIOUS DISEASE PROGRESS NOTE Patient Name: Mars Peterson INTERVAL HISTORY: WBC 9 Afebrile Enteric panel and C.diff negative 1BM since admission Patient Active Hospital Problem List: Sepsis (HCC) Date Noted: 10/12/2024 Essential hypertension Date Noted: 05/24/2020 Peripheral vascular disease Date Noted: 05/24/2020 Obesity, Class II, BMI 35-39.9 Date Noted: 05/24/2020 Status post below knee amputation of right lower extremity (HCC) Date Noted: 10/22/2020 Chronic diastolic congestive heart failure (HCC) Date Noted: 11/23/2021 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 Date Noted: 11/23/2021 Neuropathy Date Noted: 11/23/2021 Anxiety and depression Date Noted: 02/01/2022 S/P CABG x 4 Date Noted: 06/04/2022 Hyponatremia Date Noted: 06/04/2022 Bilateral carotid artery stenosis Date Noted: 01/29/2023 Chronic GERD Date Noted: 06/20/2023 ILD (interstitial lung disease) ([facility]) Date Noted: 09/09/2023 Chronic respiratory failure with hypoxia ([facility]) Date Noted: 10/12/2024 Fever Date Noted: 10/13/2024 Immunocompromised patient (HCC) Date Noted: 10/13/2024 Former smoker Date Noted: 10/13/2024 ASSESSMENT: Sepsis (HCC) (POA: Yes) Essential hypertension (POA: Yes) Peripheral vascular disease (POA: Yes) Obesity, Class II, BMI 35-39.9 (POA: Yes) Status post below knee amputation of right lower extremity (HCC) (POA: Yes) Chronic diastolic congestive heart failure (HCC) (POA: Yes) 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 (POA: Yes) Neuropathy (POA: Yes) Anxiety and depression (POA: Yes) Mixed hyperlipidemia (POA: Yes) S/P CABG x 4 (POA: Yes) Hyponatremia (POA: Yes) Bilateral carotid artery stenosis (POA: Yes) Chronic GERD (POA: Yes) ILD (interstitial lung disease) (HCC) (POA: Yes) Chronic respiratory failure with hypoxia (HCC) (POA: Yes) Diarrhea RECOMMENDATIONS: Follow-up blood culture results Urine for strep negative and legionella pending MRSA PCR positive Obtain mycoplasma PCR CT chest showed ILD Continue Rocephin, Flagyl Stop Doxy On chronic prednisone Bactrim ppx Stool for c.diff and enteric panel negative I have reviewed and interpreted all lab test imaging studies and documentations from other healthcare providers I am monitoring antibiotics for side effects and toxicity MEDICATIONS: reviewed. Current Facility-Administered Medications Medication Dose Route Frequency heparin 7,500 Units injection 7,500 Units SUBCUTANEOUS q 8 HR NaCl 0.9% iv flush bag 20 mL INTRAVENOUS PRN metroNIDAZOLE iv piggyback 500 mg in NaCl (iso-osmotic) 100 mL (FLAGYL) 500 mg INTRAVENOUS q 8 HR cefTRIAXone iv piggyback 1 g in dextrose (iso-osmotic) 50 mL (ROCEPHIN) 1 g INTRAVENOUS q 24 H aluminum-magnesium hydroxide-simethicone 200-200-20 mg/5 mL 30 mL 30 mL ORAL q 6 H PRN acetaminophen 650 mg tab(s) (TYLENOL) 650 mg ORAL q 6 H PRN acyclovir 400 mg tab(s) (ZOVIRAX) 400 mg ORAL DAILY aspirin, enteric coated 81 mg tab(s) 81 mg ORAL DAILY clopidogrel 75 mg tab(s) (PLAVIX) 75 mg ORAL DAILY colestipol 1 g tab(s) (COLESTID) 1 g ORAL BID ezetimibe 10 mg tab(s) (ZETIA) 10 mg ORAL DAILY isosorbide mononitrate ER 30 mg tab(s) (IMDUR) 30 mg ORAL DAILY metoprolol succinate ER 25 mg tab(s) (TOPROL XL) 25 mg ORAL DAILY wLUNCH rosuvastatin 20 mg tab(s) (CRESTOR) 20 mg ORAL AT BEDTIME budesonide 0.5 mg/2 mL 0.5 mg (PULMICORT) 0.5 mg INHALATION BID ipratropium-albuterol 3 mL nebulizer solution (DUONEB) 3 mL INHALATION q 4 H while awake albuterol 2.5 mg /3 mL (0.083 %) 2.5 mg (PROVENTIL) 2.5 mg INHALATION q 4 H PRN lactobacillus rhamnosus 10 billion cell (CULTURELLE) capsule 1 capsule ORAL DAILY pantoprazole DR 40 mg tab(s) (PROTONIX) 40 mg ORAL DAILY escitalopram oxalate 20 mg tab(s) (LEXAPRO) 20 mg ORAL DAILY traZODone 200 mg tab(s) (DESYREL) 200 mg ORAL AT BEDTIME predniSONE 10 mg tab(s) (DELTASONE) 10 mg ORAL DAILY Followed by [START ON 10/19/2024] predniSONE 5 mg tab(s) (DELTASONE) 5 mg ORAL DAILY sulfamethoxazole-trimetho prim 800-160 mg 1 tablet (BACTRIM DS) 1 tablet ORAL DAILY doxycycline hyclate 100 mg cap(s) (VIBRAMYCIN) 100 mg ORAL q 12 H 6a/6p hydrOXYzine HCl 50 mg tab(s) (ATARAX) 50 mg ORAL BID lisinopril 2.5 mg tab(s) (ZESTRIL) 2.5 mg ORAL BID PHYSICAL EXAM: Vital signs: BP 127/57 Pulse 84 Temp 37 ?C (98.6 ?F) (Oral) Resp 18 Ht 182.9 cm (6' 0.01") Wt 123.2 kg (271 lb 9.7 oz) SpO2 100% BMI 36.83 kg/m? Temp (24hrs), Av ?C (98.6 ?F), Min:36.7 ?C (98.1 ?F), Max:37.3 ?C (99.1 ?F) GENERAL APPEARANCE: Alert, NAD, obese, chronically ill appearing SKIN: No rashes NECK: Supple BACK: no CVAT. LUNGS: Clear HEART: Regular rate/rhythm, normal heart sounds, and no murmurs. ABDOMEN: Soft, no (more content not included)... [facility] ALLIED HEALTHon 10-13-2024 ALLIED HEALTH HNO ID: [id number] Author: ELEANOR BAL CT Service: Radiology Author Type: Technologist Type: [facility] Filed: 10/13/2024 09:50 Note Text: Radiology Service Progress Note PATIENT NAME: Mars Peterson DATE OF SERVICE: October 13, 2024 TIME: 9:50 AM PATIENT IDENTITY VERIFICATION COMPLETED USING TWO (2) IDENTIFIERS: Name and Date of confirmed by patient verbally. FALL SCREENING: Has the patient had 2 falls in the last year or 1 fall with injury or currently using an Ambulatory Assistive Device (Walker, Cane, Wheelchair, Crutches, etc.)? Inpatient: Screened on floor PATIENT GENDER DATA: Assigned male at PATIENT RELEVANT IMPLANT DATA REVIEWED: Not Applicable PATIENT PRESENTS WITH AN IMPLANTABLE OR ATTACHED LEAD SHOP OPERATOR: No RADIOLOGY DEPARTMENT: CT; Exam(s) Completed: Chest PERIPHERAL IV DATA: Inpatient: see LDA documentation SIGNED BY: KERVIN Schultz October 13, 2024 9:50 AM [facility] Basic metabolic 2000 panelon 10-13-2024 Anion gap [Moles/Vol] 17 mmol/L High 8-15 [facility] Comment on above: Order Comment: Elgin egan Type: BLOOD SPECIMEN Ordering Facility: [facility] Address: [address] [place] [address] Performed By: #### 2 4321-2, HSTNT #### [facility] CLIA [id number] [address] [place] [address] [place] Calcium [Mass/Vol] 8.4 mg/dL Low 8.5-10.2 [facility] Comment on above: Order Comment: Elgin egan Type: BLOOD SPECIMEN Ordering Facility: [facility] Address: [address] [place] [address] Performed By: #### 2 4321-2, HSTNT #### [facility] CLIA [id number] [address] [place] [address] [place] Chloride [Moles/Vol] 89 mmol/L Low 98-107 [facility] Comment on above: Order Comment: Elgin egan Type: BLOOD SPECIMEN Ordering Facility: [facility] Address: [address] [place] [address] Performed By: #### 2 4321-2, HSTNT #### [facility] CLIA [id number] [address] OF [facility] CO2 [Moles/Vol] 24 mmol/L Normal 22-30 [facility] Comment on above: Order Comment: Elgin men Type: BLOOD SPECIMEN Ordering Facility: [facility] Address: [address] [place] [address] Performed By: #### 2 4321-2, HSTNT #### [facility] CLIA [id number] [address] Creatinine [Mass/Vol] 1.05 mg/dL Normal 0.73-1.22 [facility] Comment on above: Order Comment: Elgin egan Type: BLOOD SPECIMEN Ordering Facility: [facility] Address: [address] [place] [address] Performed By: #### 2 4321-2, HSTNT #### [facility] CLIA [id number] [address] Creatinine and Glomerular filtration rate.predicted panel (S/P/Bld) 76 mL/min/1.73m??? Normal >=60 [facility] Comment on above: Order Comment: Elgin egan Type: BLOOD SPECIMEN Ordering Facility: [facility] Address: [address] [place] [address] Result Comment: Tamika mated Glomerular Filtration Rate (eGFR) is calculated using the 2020 CKD-EPI creatinine equation. This equation utilizes serum creatinine, sex, and age as parameters. The creatinine assay has traceable calibration to isotope dilution-mass spectrometry. Refer to KDIGO guidelines for clinical interpretation. In patients with unstable renal function, e.g. those with acute kidney injury, the eGFR may not accurately reflect actual GFR. Performed By: #### 2 4321-2, HSTNT #### [facility] CLIA [id number] [address] [place] [address] [place] Glucose [Mass/Vol] 158 mg/dL High 74-99 [facility] Comment on above: Order Comment: Elgin egan Type: BLOOD SPECIMEN Ordering Facility: [facility] Address: [address] [place] [address] Result Comment: The [place] Diabetes Association (ADA) provides guidance for cutoff values for fasting glucose and random glucose. The ADA defines fasting as no caloric intake for at least 8 hours. Fasting plasma glucose results between 100 to 125 mg/dL indicate increased risk for diabetes (prediabetes). Fasting plasma glucose results greater than or equal to 126 mg/dL meet the criteria for diagnosis of diabetes. In the absence of unequivocal hyperglycemia, results should be confirmed by repeat testing. In a patient with classic symptoms of hyperglycemia or hyperglycemic crisis, random plasma glucose results greater than or equal to 200 mg/dL meet the criteria for diagnosis of diabetes. Reference: Standards of Medical Care in Diabetes 2016, [place] [employer]. Diabetes Care. 2016.39(Suppl 1). Performed By: #### 2 4321-2, HSTNT #### [facility] CLIA [id number] [address] [place] [address] [place] Potassium [Moles/Vol] 3.6 mmol/L Low 3.7-5.1 [facility] Comment on above: Order Comment: Elgin egan Type: BLOOD SPECIMEN Ordering Facility: [facility] Address: [address] [place] [address] Performed By: #### 2 4321-2, HSTNT #### [facility] CLIA [id number] [address] [place] [address] [place] Sodium [Moles/Vol] 130 mmol/L Low 136-144 [facility] Comment on above: Order Comment: Elgin egan Type: BLOOD SPECIMEN Ordering Facility: [facility] Address: [address] [place] [address] Performed By: #### 2 4321-2, HSTNT #### [facility] CLIA [id number] [address] [place] [address] [place] Urea nitrogen [Mass/Vol] 14 mg/dL Normal 9-24 [facility] Comment on above: Order Comment: Elgin egan Type: BLOOD SPECIMEN Ordering Facility: [facility] Address: [address] [place] [address] Performed By: #### 2 4321-2, HSTNT #### [facility] CLIA [id number] [address] [place] C diff Tox gens Stl Ql EVELIO+p robeon 10-13-2024 C. difficile toxin genes EVELIO+probe Ql (Stl) Negative Normal Negative for C. difficile toxin by PCR [facility] Comment on above: Order Comment: Speci men Type: BLOOD SPECIMEN Ordering Facility: [facility] Address: [address] [place] [address] Performed By: #### 1 988-5, HSTNT, 35296-2 #### [facility] CLIA [id number] [address] OF [facility] CBC panel Auto (Bld)on 10-13 Erythrocyte distribution width (RBC) [Ratio] 14.8 % Normal 11.5-15.0 [facility] Comment on above: Order Comment: Speci men Type: BLOOD SPECIMEN Ordering Facility: [facility] Address: [address] [place] [address] Performed By: #### 1 988-5, HSTNT, 91612-3 #### [facility] CLIA [id number] [address] [place] Hematocrit (Bld) [Volume fraction] 39.4 % Normal 39.0-51.0 [facility] Comment on above: Order Comment: Speci men Type: BLOOD SPECIMEN Ordering Facility: [facility] Address: [address] [place] [address] Performed By: #### 1 988-5, HSTNT, 14794-7 #### [facility] CLIA [id number] [address] [place] Hemoglobin (Bld) [Mass/Vol] 12.6 g/dL Low 13.0-17.0 [facility] Comment on above: Order Comment: Speci men Type: BLOOD SPECIMEN Ordering Facility: [facility] Address: [address] [place] [address] Performed By: #### 1 988-5, HSTNT, 72838-4 #### [facility] CLIA [id number] [address] MCH (RBC) [Entitic mass] 28.4 pg Normal 26.0-34.0 [facility] Comment on above: Order Comment: Speci men Type: BLOOD SPECIMEN Ordering Facility: [facility] Address: [address] [place] [address] Performed By: #### 1 988-5, HSTNT, 13583-2 #### [facility] CLIA [id number] [address] MCHC (RBC) [Mass/Vol] 32.0 g/dL Normal 30.5-36.0 [facility] Comment on above: Order Comment: Speci men Type: BLOOD SPECIMEN Ordering Facility: [facility] Address: [address] [place] [address] Performed By: #### 1 988-5, HSTNT, 35433-5 #### [facility] CLIA [id number] [address] MCV (RBC) [Entitic vol] 88.7 fL Normal 80.0-100.0 [facility] Comment on above: Order Comment: Speci men Type: BLOOD SPECIMEN Ordering Facility: [facility] Address: [address] [place] [address] Performed By: #### 1 988-5, HSTNT, 59184-9 #### [facility] CLIA [id number] [address] Nucleated RBC (Bld) [#/Vol] 10*3/uL Normal <0.01 [facility] Comment on above: Order Comment: Speci men Type: BLOOD SPECIMEN Ordering Facility: [facility] Address: [address] [place] [address] Performed By: #### 1 988-5, HSTNT, 36381-1 #### [facility] CLIA [id number] [address] Platelet mean volume (Bld) [Entitic vol] 9.3 fL Normal 9.0-12.7 [facility] Comment on above: Order Comment: Speci men Type: BLOOD SPECIMEN Ordering Facility: [facility] Address: [facility] [place] [address] Performed By: #### 1 988-5, HSTNT, 07620-0 #### [facility] CLIA [id number] [address] [place] Platelets (Bld) [#/Vol] 192 10*3/uL Normal 150-400 [facility] Comment on above: Order Comment: Speci men Type: BLOOD SPECIMEN Ordering Facility: [facility] Address: [address] [place] [address] Performed By: #### 1 988-5, HSTNT, 96077-1 #### [facility] CLIA [id number] [address] [place] [address] [place] RBC (Bld) [#/Vol] 4.44 10*6/uL Normal 4.20-6.00 [facility] Comment on above: Order Comment: Speci men Type: BLOOD SPECIMEN [facility] [facility] Address: [address] [place] [address] Performed By: #### 1 988-5, HSTNT, 78158-3 #### [facility] CLIA [id number] [address] OF [place] WBC (Bld) [#/Vol] 13.38 10*3/uL High 3.70-11.00 [facility] Comment on above: Order Comment: Speci men Type: BLOOD SPECIMEN Ordering Facility: [facility] Address: [address] [place] [address] Performed By: #### 1 988-5, HSTNT, 96900-0 #### [facility] CLIA [id number] [address] CNPNon 10-13-2024 CNPN Telephone (AGPOB1) ----- MARS PETERSON ([id number]) 1955 M DEF Date Time Provider Department 10/13/24 SANDRA HUMMEL During your visit today, we recorded the following information about you: Alicia Arauz 10/13/2024 11:53 AM Signed ----- Message from Ami Hugo sent at 10/13/2024 11:31 AM EDT ----- Regarding: Orthopdics/ [ACACIA Hidalgo]/ [Questions about Cast] Subject Line Format: Orthopedics / [Provider Name or "Open AND Body Part"] / [Issue] Patient has been identified by name and Date of (Y/N): Y Patient: Mars Peterson Date of : 1955 Previous Provider Seen: Dr. Hummel Body Part(s) Identified: N/A Diagnosis/Reason For Visit: Follow Up/ Cast Removal Reason for the call/escalation: Patients spouse called in to reschedule appt for patient due to being in hospital. Patients spouse had a question in regards to if cast can be removed by [facility] on 10/14. Patients spouse stated they are unsure of when patient is getting out of hospital. Patients spouse would like call back at earliest convenience to discuss. If reason for call/escalation is discharge from ED/ER or Hospital, which facility was the patient seen at: N/A Was an appointment scheduled (Y/N): N Person calling if other than patient: Patients SpouseIvania Return call to if other than patient: Patients SpouseIvania Best contact number: [phone] Thank you, Ami Agee October 13, 2024 11:32 AM Alicia Arauz 10/13/2024 11:55 AM Signed I will check with Bear since Dr. Hummel is out of the office. Alicia Nieves October 13, 2024 11:54 AM Alicia Arauz 10/13/2024 1:45 PM Addendum Patient has been scheduled to see Bear on 10/21/24. Alicia Nieves October 13, 2024 1:45 PM Allergies As of Date: 10/13/2024 Noted Allergy Reaction ANIMAL DANDER 08/21/2022 14 - Other: See Comments Comments: Anything with fur SEASONAL ALLERGIES 08/21/2022 14 - Other: See Comments Comments: Stuffy nose, headaches Date Reviewed: 10/13/2024 Reviewed by: Agustín Hernández MD - Fully Assessed Reason for Visit: Question [3145] Cmt: calling to see if cast can be taken of by [facility] Prescriptions as of 10/13/2024 - traZODone (DESYREL) 100 mg tablet TAKE 2 TABLETS BY MOUTH EVERY DAY AT BEDTIME - azaTHIOprine (IMURAN) 50 mg tablet Take 1 tablet by mouth once daily for 14 days, THEN 2 tablets once daily for 14 days, THEN 3 tablets once daily for 14 days, THEN 4 tablets once daily for 14 days. - acyclovir (ZOVIRAX) 400 mg tablet Take 1 tablet by mouth once daily. - Blood-Glucose Sensor ([employer] VascularSTYLE ROSA 3 PLUS SENSOR) chata 1 device every 2 weeks. - predniSONE (DELTASONE) 10 mg tablet TAKE 2 TABLETS BY MOUTH ONCE DAILY FOR 21 DAYS, THEN 1.5 TABLETS ONCE DAILY FOR 21 DAYS, THEN 1 TABLET ONCE DAILY FOR 21 DAYS, THEN 0.5 TABLETS ONCE DAILY FOR 21 DAYS. - isosorbide mononitrate ER (IMDUR) 30 mg 24 hr tablet Take 1 tablet by mouth once daily. - gabapentin (NEURONTIN) 300 mg capsule TAKE 2 CAPSULES BY MOUTH EVERY MORNING AND 3 CAPSULES AT BEDTIME FOR 30 DAYS. Strength: 300 mg - hydrOXYzine HCl (ATARAX) 25 mg tablet Take 2 tablets by mouth two times a day. - budesonide (PULMICORT) 0.5 mg/2 mL nebulizer solution Use 2 mL via nebulizer two times a day. - ipratropium-albuterol (DUONEB) 0.5 mg-3 mg(2.5 mg base)/3 mL nebu Inhale 3 mL as instructed every 4 hours while awake. - metoprolol succinate ER (TOPROL XL) 25 mg 24 hr tablet Take 1 tablet by mouth every afternoon. - clopidogrel (PLAVIX) 75 mg tablet Take 1 tablet by mouth once daily. - pantoprazole DR (PROTONIX) 40 mg tablet Take 1 tablet by mouth once daily. - rosuvastatin (CRESTOR) 20 mg tablet Take 1 tablet by mouth daily at bedtime. - lisinopril 2.5 mg tablet Take 1 tablet by mouth two times a day. Hold if SBP less than 110 - ezetimibe (ZETIA) 10 mg tablet Take 1 tablet by mouth once daily. - guaiFENesin (MUCINEX) 600 mg 12 hr tablet Take 1 tablet by mouth two times a day as needed for cold/allergy symptoms. - furosemide (LASIX) 40 mg tablet Take 1 tablet by mouth three times a week. - escitalopram oxalate (LEXAPRO) 20 mg tablet Take 1 tablet by mouth once daily. - colestipol (COLESTID) 1 gram tablet Take 1 tablet by mouth two times a day. - OXYGEN, HOME THERAPY, 3 L/min by Nasal Cannula route as directed. - fluticasone (FLONASE) 50 mcg/actuation nasal spray spray 1 spray into each nostril every day - nitroglycerin sublingual (NITROSTAT) 0.4 mg SL tablet Dissolve 1 tablet under the tongue every 5 minutes as needed for chest pain. - albuterol sulfate 90 mcg/actuation aebs Inhale 1-2 Puffs as instructed every 4 hours as needed for wheezing/shortness of breath. - Lactobacillus acidophilus (PROBIOTIC) 10 billion cell cap Take 1 capsul (more content not included)... Normal [facility] CONSULTon 10-13-2024 CONSULT HNO ID: [id number] Author: FRANCISCO HOLLOWAY MD Service: Pulmonary Disease Author Type: Physician Type: Consults Filed: 10/13/2024 17:24 Note Text: [facility] INITIAL CONSULTATION NOTE Patient Name: Mars Peterson REASON FOR CONSULT: Complex patient with history of pulmonary fibrosis, started on Imuran. Presenting with fever and increased cough REQUESTING PHYSICIAN: Agustín Hernández MD ASSESSMENT AND RECOMMENDATION: Concern for sepsis Chronic respiratory failure on 3 L of oxygen Fibrotic ILD. UIP pattern. On Imuran Immunocompromised patient CPFE Former smoker with 80 pack smoking history Patient experiencing nausea, vomiting, diarrhea and fever all of which could be side effects of azathioprine. Azathioprine was started in September and dose was recently increased. 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 Simon. Continue broad-spectrum antibiotics. Follow sepsis workup. Currently low concern for pneumonia given no new infiltrates and stable CT chest. Thank you for the consultation. We will follow the patient along with you. Case discussed in detail with the patient, RN and primary attending. Patient verbalizes understanding and is in agreement with current management plan. Francisco Holloway MD CHIEF COMPLAINT: multiple complains HISTORY OF PRESENT ILLNESS: Mars Peterson is a 69 year old male with PMHx of chronic respiratory failure on 3 L of oxygen, fibrotic ILD likely UIP on Imuran, CPFE, exposure history to feather, former smoker with 80 pack smoking history, CAD s/p CABG, PAD status post right BKA, GERD, alcohol use, hyponatremia, hyperlipidemia, anxiety/depression and obesity. Patient is a poor historian states that he was feeling unwell complained of rigors, diaphoresis and fever. As per chart review patient had a fever of 100.9. He is completely dependent on caregivers, states that he moves around with the help of home health care nurse. Noted to be hypotensive when the home health care nurse checked his blood pressure. Also endorsed nausea and vomiting along with diarrhea. Has a chronic cough but has been productive for the last couple of days. No increased oxygen requirements. On admission patient was hemodynamically stable on baseline 3 L of oxygen. Laboratory workup showed chronic hyponatremia and mild leukocytosis otherwise unremarkable. Underwent CT which showed stable fibrosis with no new infiltrates. Pulmonary medicine was consulted for pulmonary fibrosis. 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 Peripheral vascular disease Right hand pain S/P CABG (coronary artery bypass graft) Umbilical hernia PAST SURGICAL HISTORY Procedure Laterality Date BACK SURGERY HX 2017 CABG (1) VEIN GRAFT AND ARTERIAL GRAFT 2002 CABG x4 COLONOSCOPY 2007 FINGER AMPUTATION (SPECIFY DIGIT) HX HIP SURGERY HX 1999 1999, 2019 Replacement Right and left LEG AMPUTATION HX Right 2018 PAST SURGICAL HISTORY OF coccyx for pilonidal cyst REMV CATARACT EXTRACAP,INSERT LENS Bilateral FAMILY HISTORY Problem Relation Age of Onset Ovarian cancer Mother other (afib) Mother COPD Mother Asthma Mother Heart Father heart attack other (Chronic oxygen) Father other (bladder cancer) Maternal Aunt Cancer Maternal Aunt Cancer Maternal Uncle Heart Paternal Uncle Leukemia Paternal Uncle Colon Cancer No Family History Social History Tobacco Use Smoking status: Former Current packs/day: 0.00 Average packs/day: 2.0 packs/day for 40.0 years (80.0 ttl pk-yrs) Types: Cigarettes Start date: 05/13/1961 Quit date: 05/13/2001 Years since quittin.4 Smokeless tobacco: Former Types: Chew Vaping Use Vaping status: Never Used Substance Use Topics Alcohol use: Yes Alcohol/week: 10.0 standard drinks of alcohol Types: 10 Cans of beer per week Drug use: Never ALLERGIES: ALLERGIES Allergen Reactions Animal Dander Other: See Comments Anything with fur Seasonal Allergies Other: See Comments Stuffy nose, headaches CURRENT OUTPATIENT MEDICATIONS: hydrOXYzine HCl (ATARAX) 25 mg tabletTake 2 tablets by mouth two times a day.Disp: 360 tabletRfl: 1 lisinopril 2.5 mg tabletTake 1 tablet by mouth two times a day. Hold if SBP less than 110Disp: 180 tabletRfl: 3 traZODone (DESYREL) 100 mg tabletTAKE 2 TABLETS BY MOUTH EVERY DAY AT BEDTIMEDisp: (more content not included)... [facility] CONSULT HNO ID: [id number] Author: GM JOHNSON MD Service: Infectious Disease Author Type: Physician Type: Consults Filed: 10/13/2024 22:26 Note Text: INFECTIOUS DISEASE INITIAL CONSULT SERVICE DATE: 10/13/2024 SERVICE TIME: 5:02 AM REASON FOR CONSULT: sepsis Subjective Patient is seen at the request of Dr Hernández. My final recommendations will be communicated back to the requesting physician by way of copy of this note or shared electronic medical record. HPI: Mars Peterson is a 69 year old male with a past medical history notable for diastolic heart failure, interstitial lung disease on 3 L of oxygen chronically, hypertension, CAD s/p CABG x 4, HILARIO, PVD s/p right BKA, anxiety/depression, hyperlipidemia, and hyponatremia who presents with feeling unwell. In the [place] ED the patient was found to be afebrile and hemodynamically stable as well as saturating well on his baseline 3 L of oxygen via NC. Labs are notable for sodium of 127, chloride of 87, bicarbonate of 26, creatinine of 1.53, blood glucose of 133, normal LFTs, BNP of 1255, ethanol less than 11, high-sensitivity troponin of 49-->41-->31, hemoglobin of 13.3, and leukocytosis of 11.92 with an ANC of 9.73. COVID/flu/RSV swabs were found to be negative. UA was found to be negative for signs of UTI. Chest x-ray demonstrated unchanged moderate interstitial pulmonary opacities bilaterally which may be secondary to known pulmonary fibrosis although there is a possibility of superimposed pulmonary edema or infection. CT of the abdomen and pelvis demonstrated several air-filled loops of bowel seen without evidence of bowel obstruction as well as a large amount of fluid in the sigmoid colon/rectum possibly in setting of colitis. The patient was given doses of DuoNebs, albuterol, Solu-Medrol, 1 L normal saline, Augmentin, and Zofran. He is being transferred to hospital medicine at [place] for further workup and management of his sepsis of unknown origin. 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 Peripheral vascular disease Right hand pain S/P CABG (coronary artery bypass graft) Umbilical hernia PAST SURGICAL HISTORY Procedure Laterality Date BACK SURGERY HX 2017 CABG (1) VEIN GRAFT AND ARTERIAL GRAFT 2001 CABG x4 COLONOSCOPY 2007 FINGER AMPUTATION (SPECIFY DIGIT) HX HIP SURGERY HX 1999 1999, 2019 Replacement Right and left LEG AMPUTATION HX Right 2018 PAST SURGICAL HISTORY OF coccyx for pilonidal cyst REMV CATARACT EXTRACAP,INSERT LENS Bilateral Social History Tobacco Use Smoking status: Former Current packs/day: 0.00 Average packs/day: 2.0 packs/day for 40.0 years (80.0 ttl pk-yrs) Types: Cigarettes Start date: 05/13/1961 Quit date: 05/13/2001 Years since quittin.4 Smokeless tobacco: Former Types: Chew Vaping Use Vaping status: Never Used Substance Use Topics Alcohol use: Yes Alcohol/week: 10.0 standard drinks of alcohol Types: 10 Cans of beer per week Drug use: Never FAMILY HISTORY Problem Relation Age of Onset Ovarian cancer Mother other (afib) Mother COPD Mother Asthma Mother Heart Father heart attack other (Chronic oxygen) Father other (bladder cancer) Maternal Aunt Cancer Maternal Aunt Cancer Maternal Uncle Heart Paternal Uncle Leukemia Paternal Uncle Colon Cancer No Family History Immunization History Administered Date(s) Administered COVID-19 original vaccine, age 12+ yr, monovalent ([employer] - GUZMAN TOP) 09/09/2021 COVID-19 original vaccine, age 12+ yr, monovalent ([employer] - PURPLE TOP) 07/27/2020 08/18/2020 02/24/2021 COVID-19 original vaccine, booster dose, monovalent (MODERNA) 08/29/2023 COVID-19 vaccine, age 12+ yr ([employer] COMIRNATY) 02/14/2023 COVID-19 vaccine, age 12+ yr, bivalent ([employer]) 03/12/2022 02/14/2023 COVID-19 vaccine, unspecified formulation 03/30/2024 influenza (HD-IIV3) vaccine, age 65+ yr, high dose, trivalent, PF (FLUZONE HIGH-DOSE) 03/14/2020 03/30/2024 influenza (HD-IIV4) vaccine, age 65+ yr, high dose, quadrivalent, PF (FLUZONE HIGH-DOSE) 01/17/2021 02/01/2022 02/14/2023 influenza (aIIV4) vaccine, age 65+ yr, quadrivalent, PF (FLUAD QUAD) 02/14/2023 pneumococcal conjugate (PCV20) vaccine, 20 valent (PREVNAR 20) 11/08/2022 pneumococcal polysaccharide (PPV23) vaccine, 23 valent (PNEUMOVAX 23) 05/23/2021 respiratory syncytial virus (RSV) vaccine, adjuvanted (AREXVY) 08/29/2023 tetanus diphtheria pertussis (Tdap) vaccine, age 7+ yr (ADA (more content not included)... Normal [facility] CT CHEST WO IVCONon 10-14-[address] CHEST WO IVCON * * *Final Report* * * DATE OF EXAM: Oct 13 2024 9:51AM [facility] [place]ST WO IVCON / PROCEDURE REASON: Aspiration * * * * Physician Interpretation * * * * EXAMINATION: CHEST CT WITHOUT CONTRAST CLINICAL HISTORY: Aspiration. Technique: Spiral CT acquisition of the chest from the thoracic inlet to the upper abdomen without contrast. MQ: [id number]_6 CT Radiation dose: Integrated Dose-length product (DLP) for this visit = 417 mGy*cm CT Dose Reduction Employed: Automated exposure control(AEC) and iterative recon Comparison: CT chest on 07/16/2024 RESULT: Limitations: None. Lines, tubes, and devices: None. Lung parenchyma and airways: The central airways are patent. There is diffuse bronchial wall thickening. The bilateral lungs are remarkable for diffuse reticulations, predominantly involving the prevertebral areas and lung bases. Honeycombing, traction bronchiolectasis and architectural distortion are all visualized. Small scattered groundglass densities visualized. No consolidations. No masses. There are large pericardial fat pads. Pleural space: No pleural effusions or pneumothorax. Lower neck, lymph nodes, and mediastinum: The imaged thyroid gland is normal. No supraclavicular or axillary lymphadenopathy. There are borderline enlarged mediastinal lymph nodes. Heart, pericardium, and thoracic vessels: Dilation of the main pulmonary artery is again noted, measuring 3.7 cm in diameter. There is mild cardiomegaly. Atherosclerotic calcifications seen in the thoracic aorta and coronary circulations. Patient is status post CABG. Bones and soft tissues: There are postoperative changes from median sternotomy. The spine shows degenerative changes. Single level vertebral body wedge-shaped deformity seen in the mid thoracic spine. Upper abdomen: Limited study through the upper abdomen demonstrates multiple gallbladder stones. There is a dilated large bowel loop in the anterior abdomen. Localizer images: No additional findings. IMPRESSION: Findings are suggestive of interstitial lung disease. The pattern and distribution are compatible with UIP. No new pulmonary infiltrates visualized. Dilation of the main pulmonary artery, likely reflecting underlying pulmonary hypertension. Mild cardiomegaly. Gallbladder stones. Dilated large bowel loop. Hot Wire Glass Tube Cutter[facility] Transcribe Date/Time: Oct 13 2024 10:40A Dictated by : HALLEY EM MD This examination was interpreted and the report reviewed and electronically signed by: HALLEY EM MD on Oct 13 2024 11:01AM EST [id number] Normal [facility] Gastrointestinal pathogens i dentified EVELIO+probe Nom (Stl)on 10-13-2024 Campylobacter sp DNA EVELIO+probe Nom (Unsp spec) Not detected Normal Not Detected [facility] Comment on above: Order Comment: Speci men Type: STOOL SPECIMEN Ordering Facility: [facility] Address: [address] [place] [address] Performed By: #### 7 9390-1 #### [facility] CLIA [id number] [address] [place] [address] [place] Salmonella sp DNA EVELIO+probe Ql (Unsp spec) Not detected Normal Not Detected [facility] Comment on above: Order Comment: Speci men Type: STOOL SPECIMEN Ordering Facility: [facility] Address: [address] [place] [address] Performed By: #### 7 9390-1 #### [facility] CLIA [id number] [address] [place] [address] [place] Shiga toxin stx gene EVELIO+probe Nom (Unsp spec) Not detected Normal Not Detected [facility] Comment on above: Order Comment: Speci men Type: STOOL SPECIMEN Ordering Facility: [facility] Address: [address] [place] [address] Performed By: #### 7 9390-1 #### [facility] CLIA [id number] [address] [place] [address] [place] Shigella sp DNA EVELIO+probe Ql (Unsp spec) Not detected Normal Not Detected [facility] Comment on above: Order Comment: Speci men Type: STOOL SPECIMEN Ordering Facility: [facility] Address: [address] [place] [address] Performed By: #### 7 9390-1 #### [facility] CLIA [id number] [address] [place] [address] [place] HIGH SENSITIVITY TROPONIN To n 06-03-2025 Troponin T.cardiac High sensitivity method [Mass/Vol] 21 ng/L High <12 [facility] Comment on above: Order Comment: Speci jignesh Type: BLOOD SPECIMEN Ordering Facility: [facility] Address: [address] [place] [address] Performed By: #### 2 4321-2, HSTNT #### [facility] CLIA [id number] [address] [place] [address] [place] Troponin T.cardiac High sensitivity method [Mass/Vol] 21 ng/L High <12 [facility] Comment on above: Order Comment: Speci men Type: BLOOD SPECIMEN Ordering Facility: [facility] Address: [address] [place] [address] Performed By: #### H STNT #### [facility] CLIA [id number] [address] [place] [address] [place] Legionella Ag Ur Qlon 2024 Legionella sp Ag Ql (U) Negative Normal Negative [facility] Comment on above: Order Comment: Specjimmy egan Type: STOOL SPECIMEN Ordering Facility: [facility] Address: [address] [place] [address] Result Comment: Legi onella urinary antigen test is used as an aid in diagnosis of infection with Legionella pneumophila serogroup 1. It may be detected from a few days to several months after onset of signs and symptoms despite antibiotic therapy or disease resolution. A negative result cannot exclude Legionellosis. Clinical correlation is required. Performed By: #### 7 9390-1 #### [facility] CLIA [id number] [address] [place] [address] [place] STAPHYLOCOCCUS AUREUS AND MR SA SCREEN, PCR, NASALon 10-13-2024 S. aureus and MRSA panel EVELIO+probe (Nose) Methicillin-RESISTANT Staphylococcus aureus (MRSA) Detected Abnormal Not Detected [facility] Comment on above: Order Comment: Elgin egan Type: STOOL SPECIMEN Ordering Facility: [facility] Address: [address] [place] [address] Performed By: #### 7 9390-1 #### [facility] CLIA [id number] [address] [place] [address] [place] STREPTOCOCCUS PNEUMONIAE ANT IGEN URINEon 10-13-2024 STREPTOCOCCUS PNEUMONIAE ANTIGEN URINE STREP PNEUMO AG RESULT: Negative for Streptococcus pneumoniae antigen. Presumptive negative for pneumococcal pneumonia, suggesting no current or recent pneumococcal infection. Infection due to S.pneumoniae cannot be ruled out since the antigen present in the sample may be below the detection limit of the test. [facility] Comment on above: Performed By: #### 7 9390-1 #### [facility] CLIA [id number] [address] [place], [place] [id number] [facility] ALLIED HEALTHon 10-12-2024 ALLIED HEALTH HNO ID: [id number] Author: PRIYA JONES RT(R) Service: Radiology Author Type: Air Quality Manager Type: Allied Health Filed: 10/12/2024 17:51 Note Text: Radiology Service Progress Note DATE OF SERVICE: October 12, 2024 TIME: 5:51 PM PATIENT IDENTITY VERIFICATION COMPLETED USING TWO (2) STANDARD IDENTIFIERS: Name and Date of confirmed by patient verbally. FALL SCREENING: Has the patient had 2 falls in the last year or 1 fall with injury or currently using an Ambulatory Assistive Device (Walker, Cane, Wheelchair, Crutches, etc.)? Emergency Room Patient: Screened in ED PATIENT GENDER DATA: Assigned male at PATIENT RELEVANT IMPLANT DATA REVIEWED: Yes PATIENT PRESENTS WITH AN IMPLANTABLE OR ATTACHED LEAD SHOP OPERATOR: No ALLERGIES: Reviewed and unchanged CONTRAST ALLERGY: NO. EXAM: CT -CONTRAST INDUCED NEPHROPATHY RISK FACTORS: Patient age > 60 years CREATININE: Creatinine Date Value Ref Range Status 10/12/2024 1.53 (H) 0.73 - 1.22 mg/dL Final 09/28/2024 0.81 0.73 - 1.22 mg/dL Final 09/21/2024 0.91 0.73 - 1.22 mg/dL Final Estimated Glomerular Filtration Rate Date Value Ref Range Status 10/12/2024 48 (L) >=60 mL/min/1.73m? Final Comment: Estimated Glomerular Filtration Rate (eGFR) is calculated using the 2020 CKD-EPI creatinine equation. This equation utilizes serum creatinine, sex, and age as parameters. The creatinine assay has traceable calibration to isotope dilution-mass spectrometry. Refer to KDIGO guidelines for clinical interpretation. In patients with unstable renal function, e.g. those with acute kidney injury, the eGFR may not accurately reflect actual GFR. eGFR- Date Value Ref Range Status 01/17/2021 >60 Final P.O.C.T. RESULTS: POC done: Yes, See Lab Tab October 12, 2024 TREATMENT: N/A PERIPHERAL IV DATA: Inpatient - refer to LDA documentation RADIOLOGY DEPARTMENT: CT; Exam(s) Completed: Abdomen/Pelvis SIGNATURE: RT Derrick(R) PATIENT NAME: Mars Peterson DATE: October 12, 2024 TIME: 5:[address] [facility] ALLIED HEALTH HNO ID: [id number] Author: ROSEMARY SAMS RT([facility]) Service: ? Author Type: Technologist Type: Allied Health Filed: 10/12/2024 17:33 Note Text: Radiology Service Progress Note PATIENT NAME: Mars Peterson DATE OF SERVICE: October 12, 2024 TIME: 5:33 PM PATIENT IDENTITY VERIFICATION COMPLETED USING TWO (2) IDENTIFIERS: Name and Date of confirmed by patient verbally. FALL SCREENING: Has the patient had 2 falls in the last year or 1 fall with injury or currently using an Ambulatory Assistive Device (Walker, Cane, Wheelchair, Crutches, etc.)? Emergency Room Patient: Screened in ED PATIENT GENDER DATA: Assigned male at PATIENT RELEVANT IMPLANT DATA REVIEWED: Not Applicable PATIENT PRESENTS WITH AN IMPLANTABLE OR ATTACHED LEAD SHOP OPERATOR: No RADIOLOGY DEPARTMENT: General X-ray: Exam(s) Completed: Chest X-Ray PERIPHERAL IV DATA: Not applicable SIGNED BY: RT Hayder([facility]) October 12, 2024 5:[address] [facility] Bacteria Bld Culton 10-13-19 25 Bacteria identified Cx Nom (Bld) CULTURE, BLOOD: No growth [address] [facility] Comment on above: Performed By: #### 6 00-7 #### [facility] CLIA [id number] [address] [facility] CBC W Auto Differential pane l (Bld)on 10-12-2024 Basophils (Bld) [#/Vol] 0.03 10*3/uL Normal <0.11 [facility] Comment on above: Order Comment: Speci men Type: BLOOD SPECIMENOrdering Facility: [facility] Address: [address] [place] [address] Performed By: #### 5 7021-8 ####[facility] [place] LABCLIA [id number] [place] [address] [facility] Basophils/100 WBC (Bld) 0.3 % Normal [facility] Comment on above: Order Comment: Speci men Type: BLOOD SPECIMENOrdering Facility: [facility] Address: [address] [place] [address] Performed By: #### 5 7021-8 ####[facility] [place] LABCLIA [id number] [place] [id number] [facility] Differential cell count method Nom (Bld) Auto Normal [facility] Comment on above: Order Comment: Speci men Type: BLOOD SPECIMENOrdering Facility: [facility] Address: [address] [place] [address] Performed By: #### 5 7021-8 ####[facility] [place] LABCLIA [id number] [place] [address] [facility] Eosinophils (Bld) [#/Vol] 0.18 10*3/uL Normal <0.46 [facility] Comment on above: Order Comment: Speci men Type: BLOOD SPECIMENOrdering Facility: [facility] Address: [address] [place] [address] Performed By: #### 5 7021-8 ####[facility] [place] [facility]IA [id number] [place] [address] [facility] Eosinophils/100 WBC (Bld) 1.5 % Normal [facility] Comment on above: Order Comment: Speci men Type: BLOOD SPECIMENOrdering Facility: [facility] Address: [address] [place] [address] Performed By: #### 5 7021-8 ####[facility] [place] [facility] [id number] [place] [address] [place] Erythrocyte distribution width (RBC) [Ratio] 15.2 % High 11.5-15.0 [facility] Comment on above: Order Comment: Speci men Type: BLOOD SPECIMENOrdering Facility: [facility] Address: [address] [place] [address] Performed By: #### 5 7021-8 ####[facility] [place] [facility] [id number] [place] [address] [facility] Hematocrit (Bld) [Volume fraction] 42.6 % Normal 39.0-51.0 [facility] Comment on above: Order Comment: Speci men Type: BLOOD SPECIMENOrdering Facility: [facility] Address: [address] [place] [address] Performed By: #### 5 7021-8 ####[facility] [place] [facility]CLIA [id number] [place] [address] [place] Hemoglobin (Bld) [Mass/Vol] 13.3 g/dL Normal 13.0-17.0 [facility] Comment on above: Order Comment: Speci men Type: BLOOD SPECIMENOrdering Facility: [facility] Address: [address] [place] [address] Performed By: #### 5 7021-8 ####[facility] [place] LABCLIA [id number] [place] [id number] [facility] Immature granulocytes (Bld) [#/Vol] 0.07 10*3/uL Normal <0.10 [facility] Comment on above: Order Comment: Speci men Type: BLOOD SPECIMENOrdering Facility: [facility] Address: [address] [place] [address] Performed By: #### 5 7021-8 ####[facility] [place] [facility] [id number] [place] [id number] [facility] Immature granulocytes/100 WBC (Bld) 0.6 % Normal [facility] Comment on above: Order Comment: Speci men Type: BLOOD SPECIMENOrdering Facility: [facility] Address: [address] [place] [address] Performed By: #### 5 7021-8 ####[facility] [place] [facility]IA [id number] [place] [address] [facility] Lymphocytes (Bld) [#/Vol] 0.45 10*3/uL Low 1.00-4.00 [facility] Comment on above: Order Comment: Speci men Type: BLOOD SPECIMENOrdering Facility: [facility] Address: [address] [place] [address] Performed By: #### 5 7021-8 ####[facility] [id number] [place] [address] [facility] Lymphocytes/100 WBC (Bld) 3.8 % Normal [facility] Comment on above: Order Comment: Speci men Type: BLOOD SPECIMENOrdering Facility: [facility] Address: [address] [place] [address] Performed By: #### 5 7021-8 ####[facility] LABCLIA [id number] [place] [address] [facility] MCH (RBC) [Entitic mass] 28.6 pg Normal 26.0-34.0 [facility] Comment on above: Order Comment: Speci men Type: BLOOD SPECIMENOrdering Facility: [facility] Address: [address] [place] [address] Performed By: #### 5 7021-8 ####[facility] [id number] [place] [address] [place] MCHC (RBC) [Mass/Vol] 31.2 g/dL Normal 30.5-36.0 [facility] Comment on above: Order Comment: Speci men Type: BLOOD SPECIMENOrdering Facility: [facility] Address: [address] [place] [address] Performed By: #### 5 7021-8 ####[facility] [id number] [place] [address] [place] MCV (RBC) [Entitic vol] 91.6 fL Normal 80.0-100.0 [facility] Comment on above: Order Comment: Speci men Type: BLOOD SPECIMENOrdering Facility: [facility] Address: [address] [place] [address] Performed By: #### 5 7021-8 ####[facility] [place] LABCLIA [id number] [place] [address] [place] Monocytes (Bld) [#/Vol] 1.46 10*3/uL High <0.87 [facility] Comment on above: Order Comment: Speci men Type: BLOOD SPECIMENOrdering Facility: [facility] Address: [address] [place] [address] Performed By: #### 5 7021-8 ####[facility] [place] LABCLIA [id number] [place] [address] [place] Monocytes/100 WBC (Bld) 12.2 % Normal [facility] Comment on above: Order Comment: Speci men Type: BLOOD SPECIMENOrdering Facility: [facility] Address: [address] [place] [address] Performed By: #### 5 7021-8 ####[facility] [place] LABCLIA [id number] [place] [address] [place] Neutrophils (Bld) [#/Vol] 9.73 10*3/uL High 1.45-7.50 [facility] Comment on above: Order Comment: Speci men Type: BLOOD SPECIMENOrdering Facility: [facility] Address: [address] [place] [address] Performed By: #### 5 7021-8 ####[facility] [place] LABCLIA [id number] [place] [address] [place] Neutrophils/100 WBC (Bld) 81.6 % Normal [facility] Comment on above: Order Comment: Speci men Type: BLOOD SPECIMENOrdering Facility: [facility] Address: [address] [place] [address] Performed By: #### 5 7021-8 ####[facility] [place] LABCLIA [id number] [place] [address] [place] Nucleated RBC (Bld) [#/Vol] Normal [facility] Comment on above: Order Comment: Speci men Type: BLOOD SPECIMENOrdering Facility: [facility] Address: [address] [place] [address] Performed By: #### 5 7021-8 ####[facility] [place] LABCLIA [id number] [place] [address] [place] Nucleated RBC/100 WBC (Bld) [Ratio] Normal [facility] Comment on above: Order Comment: Speci men Type: BLOOD SPECIMENOrdering Facility: [facility] Address: [address] [place] [address] Performed By: #### 5 7021-8 ####[facility] [id number] [place] [address] [place] Platelet mean volume (Bld) [Entitic vol] 9.1 fL Normal 9.0-12.7 [facility] Comment on above: Order Comment: Speci men Type: BLOOD SPECIMENOrdering Facility: [facility] Address: [address] [place] [address] Performed By: #### 5 7021-8 ####[facility] [id number] [place] [address] [place] Platelets (Bld) [#/Vol] 235 10*3/uL Normal 150-400 [facility] Comment on above: Order Comment: Speci men Type: BLOOD SPECIMENOrdering Facility: [facility] Address: [address] [place] [address] Performed By: #### 5 7021-8 ####[facility] [place] [facility]IA [id number] [facility] [place] [place] [address] [place] RBC (Bld) [#/Vol] 4.65 10*6/uL Normal 4.20-6.00 [facility] Comment on above: Order Comment: Speci men Type: BLOOD SPECIMENOrdering Facility: [facility] Address: [facility] [place] [address] Performed By: #### 5 7021-8 ####[facility] [place] LABCLIA [id number] [place] [address] [place] WBC (Bld) [#/Vol] 11.92 10*3/uL High 3.70-11.00 [facility] Comment on above: Order Comment: Speci men Type: BLOOD SPECIMENOrdering Facility: [facility] Address: [facility] [place] [address] Performed By: #### 5 7021-8 ####[facility] [place] LABCLIA [id number] [place] [address] [facility] CNPNon 10-12-2024 CNPN Telephone (DELIA) ----- MARS PETERSON ([id number]) 1955 M DEF Date Time Provider Department 10/12/24 TRU PRESCOTT During your visit today, we recorded the following information about you: Tru Prescott MD 10/12/2024 9:29 PM Signed RQB Hx of ILD on 3L. Cough weakness fever and low BP's at home. ?colitis vs PNA. Allergies As of Date: 10/12/2024 Noted Allergy Reaction ANIMAL DANDER 08/21/2022 14 - Other: See Comments Comments: Anything with fur SEASONAL ALLERGIES 08/21/2022 14 - Other: See Comments Comments: Stuffy nose, headaches Date Reviewed: 10/12/2024 Reviewed by: Gisel Iniguez, SERGEY - Fully Assessed Reason for Visit: Hospital To Hospital [[id number]] Prescriptions as of 10/12/2024 - traZODone (DESYREL) 100 mg tablet TAKE 2 TABLETS BY MOUTH EVERY DAY AT BEDTIME - azaTHIOprine (IMURAN) 50 mg tablet Take 1 tablet by mouth once daily for 14 days, THEN 2 tablets once daily for 14 days, THEN 3 tablets once daily for 14 days, THEN 4 tablets once daily for 14 days. - acyclovir (ZOVIRAX) 400 mg tablet Take 1 tablet by mouth once daily. - Blood-Glucose Sensor (FREESTYLE ROSA 3 PLUS SENSOR) chata 1 device every 2 weeks. - predniSONE (DELTASONE) 10 mg tablet TAKE 2 TABLETS BY MOUTH ONCE DAILY FOR 21 DAYS, THEN 1.5 TABLETS ONCE DAILY FOR 21 DAYS, THEN 1 TABLET ONCE DAILY FOR 21 DAYS, THEN 0.5 TABLETS ONCE DAILY FOR 21 DAYS. - isosorbide mononitrate ER (IMDUR) 30 mg 24 hr tablet Take 1 tablet by mouth once daily. - gabapentin (NEURONTIN) 300 mg capsule TAKE 2 CAPSULES BY MOUTH EVERY MORNING AND 3 CAPSULES AT BEDTIME FOR 30 DAYS. Strength: 300 mg - hydrOXYzine HCl (ATARAX) 25 mg tablet Take 2 tablets by mouth two times a day. - budesonide (PULMICORT) 0.5 mg/2 mL nebulizer solution Use 2 mL via nebulizer two times a day. - ipratropium-albuterol (DUONEB) 0.5 mg-3 mg(2.5 mg base)/3 mL nebu Inhale 3 mL as instructed every 4 hours while awake. - metoprolol succinate ER (TOPROL XL) 25 mg 24 hr tablet Take 1 tablet by mouth every afternoon. - clopidogrel (PLAVIX) 75 mg tablet Take 1 tablet by mouth once daily. - pantoprazole DR (PROTONIX) 40 mg tablet Take 1 tablet by mouth once daily. - rosuvastatin (CRESTOR) 20 mg tablet Take 1 tablet by mouth daily at bedtime. - lisinopril 2.5 mg tablet Take 1 tablet by mouth two times a day. Hold if SBP less than 110 - ezetimibe (ZETIA) 10 mg tablet Take 1 tablet by mouth once daily. - guaiFENesin (MUCINEX) 600 mg 12 hr tablet Take 1 tablet by mouth two times a day as needed for cold/allergy symptoms. - furosemide (LASIX) 40 mg tablet Take 1 tablet by mouth three times a week. - escitalopram oxalate (LEXAPRO) 20 mg tablet Take 1 tablet by mouth once daily. - colestipol (COLESTID) 1 gram tablet Take 1 tablet by mouth two times a day. - OXYGEN, HOME THERAPY, 3 L/min by Nasal Cannula route as directed. - fluticasone (FLONASE) 50 mcg/actuation nasal spray spray 1 spray into each nostril every day - nitroglycerin sublingual (NITROSTAT) 0.4 mg SL tablet Dissolve 1 tablet under the tongue every 5 minutes as needed for chest pain. - albuterol sulfate 90 mcg/actuation aebs Inhale 1-2 Puffs as instructed every 4 hours as needed for wheezing/shortness of breath. - Lactobacillus acidophilus (PROBIOTIC) 10 billion cell cap Take 1 capsule by mouth once daily. - acetaminophen (TYLENOL EXTRA STRENGTH) 500 mg tablet Take 2 tablets by mouth every 8 hours as needed for pain. FOR PAIN. - Zinc 50 mg tab Take 50 mg by mouth once daily. - aspirin, enteric coated (ASPIRIN, ENTERIC COATED) 81 mg EC tablet Take 81 mg by mouth once daily. - multivit-min/folic/vit K/lycop (ONE-A-DAY MEN'S MULTIVITAMIN ORAL) Take by mouth once daily. Facility-Administered Medications as of 10/12/2024 - iv contrast (radiology procedure) Problem List As Of Date 10/12/2024 Noted Resolved Essential hypertension [I10] 05/24/2020 Peripheral vascular disease (HCC) [I73.9] 05/24/2020 Chronic back pain [M54.9, G89.29] 05/24/2020 Obesity, Class II, BMI 35-39.9 [E66.812] 05/24/2020 Status post below knee amputation of right lowe*10/22/2020 Chronic diastolic congestive heart failure (HCC*11/23/2021 Coronary artery disease of ione artery of kell*11/23/2021 CVA (cerebral vascular accident) (HCC) [I63.9] 11/23/2021 11/20/2022 Neuropathy [G62.9] 11/23/2021 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 (more content not included)... Normal [facility] CRP SerPl-mCncon 10-12-2024 CRP [Mass/Vol] 23.0 mg/dL High <0.9 [facility] Comment on above: Order Comment: Speci men Type: BLOOD SPECIMEN [facility] Address: [address] [place] [address] Performed By: #### 1 988-5, HSTNT, 11255-1 #### [facility] CLIA [id number] [address] [place] [address] [facility] ABD/PEL W IVCONon 025 CT ABD/PEL W IVCON * * *Final Report* * * DATE OF EXAM: Oct 12 2024 5:51PM [facility] 0530 - CT ABD/PEL W IVCON / PROCEDURE REASON: Abdominal abscess/infection suspected * * * * Physician Interpretation * * * * EXAMINATION: CT ABDOMEN AND PELVIS WITH IV CONTRAST CLINICAL HISTORY: Nausea and vomiting TECHNIQUE: CT of the abdomen and pelvis was performed using standard technique, scanning from just above the dome of the diaphragm to the symphysis pubis. MQ: CTAP_3 Contrast: IV: 100 ml of Omnipaque 350 : ml of CT Radiation dose: Integrated Dose-length product (DLP) for this visit = mGy*cm. CT Dose Reduction Employed: Automated exposure control(AEC) and iterative recon COMPARISON: None. RESULT: Lung bases: Fibrotic changes are seen in the visualized lung bases. Liver: Normal liver parenchyma is noted. No focal hepatic mass is seen. The portal vein and hepatic veins are within normal limits. Bile ducts: No intra or extrahepatic bile duct dilatation is noted. Gallbladder: Cholelithiasis. Spleen: The spleen is of normal size and enhancement Pancreas: The pancreatic parenchyma is of normal enhancement without a discrete mass identified. No peripancreatic fluid or fat stranding is appreciated. The pancreatic duct is of normal caliber. Adrenal glands :The adrenal glands are normal in morphology. No discrete nodule is identified. Kidneys: Normal enhancement of the renal parenchyma is noted. No solid mass is identified. No discrete stone is identified. There is no evidence of hydronephrosis or hydroureter. Abdominal aorta: The abdominal aorta is of normal caliber without evidence of dissection. A normal-appearing aortic bifurcation is present. Lymphadenopathy: There is no intra-abdominal, retroperitoneal, or inguinal lymphadenopathy. Ascites: No fluid collection is seen in the abdomen or pelvis. Urinary bladder: The urinary bladder is unremarkable without an intraluminal filling defect. No perivesical fat stranding is appreciated. Bowel: Several air-filled loops of colon are seen. In addition a moderate to large amount of fluid is seen in the sigmoid colon/rectum. No dilated loops of small bowel are seen to suggest obstruction. An umbilical hernia seen containing a segment of nonobstructed small bowel. Appendix: The appendix is of normal caliber without periappendiceal inflammatory changes. Osseous structures: No osteolytic or osteoblastic bone lesion is identified. No acute osseous abnormality is seen. IMPRESSION: 1. Several air-filled loops of bowel are seen without evidence of small bowel obstruction. In addition, there is a moderate to large amount of fluid in the sigmoid colon/rectum possibly in the setting of colitis. Hot Wire Glass Tube Cutter: WENCESLAO Transcribe Date/Time: Oct 12 2024 5:59P Dictated by : JASON JONES MD This examination was interpreted and the report reviewed and electronically signed by: JASON JONES MD on Oct 12 2024 6:07PM EST [id number] Normal [facility] Comprehensive metabolic 2000 panelon 10-12-2024 Albumin [Mass/Vol] 3.7 g/dL Low 3.9-4.9 [facility] Comment on above: Order Comment: Speci men Type: BLOOD SPECIMENOrdering Facility: [facility] Address: [facility] [place] [address] Performed By: #### 3 040-3, 96647-1, 59086-1, 87066-5 ####[facility] LABCLIA [id number] [place] [address] [place] ALP [Catalytic activity/Vol] 42 U/L Normal 38-113 [facility] Comment on above: Order Comment: Speci men Type: BLOOD SPECIMENOrdering Facility: [facility] Address: [address] [place] [address] Performed By: #### 3 040-3, 50712-6, 11174-6, 64727-7 ####[facility] [place] LABCLIA [id number] [place] [address] [place] ALT With P-5'-P [Catalytic activity/Vol] 11 U/L Normal 10-54 [facility] Comment on above: Order Comment: Speci men Type: BLOOD SPECIMENOrdering Facility: [facility] Address: [address] [place] [address] Performed By: #### 3 040-3, 46916-6, 66448-1, 67740-2 ####[facility] [place] LABCLIA [id number] [place] [place] [address] [place] [facility] Anion gap [Moles/Vol] 14 mmol/L Normal 8-15 [facility] Comment on above: Order Comment: Speci men Type: BLOOD SPECIMENOrdering Facility: [facility] Address: [address] [place] [address] Performed By: #### 3 040-3, 05851-6, 69954-0, 12062-8 ####[facility] [place] LABCLIA [id number] [place] [address] [place] AST With P-5'-P [Catalytic activity/Vol] 17 U/L Normal 14-40 [facility] Comment on above: Order Comment: Speci men Type: BLOOD SPECIMENOrdering Facility: [facility] Address: [address] [place] [address] Performed By: #### 3 040-3, 92704-1, 33881-8, 46843-3 ####[facility] [place] LABCLIA [id number] [place] [address] [place] Bilirubin [Mass/Vol] 0.7 mg/dL Normal 0.2-1.3 [facility] Comment on above: Order Comment: Speci men Type: BLOOD SPECIMENOrdering Facility: [facility] Address: [address] [place] [address] Performed By: #### 3 040-3, 01532-2, 97551-0, 85565-1 ####[facility] [place] LABCLIA [id number] [place] [address] [place] Calcium [Mass/Vol] 8.9 mg/dL Normal 8.5-10.2 [facility] Comment on above: Order Comment: Speci men Type: BLOOD SPECIMENOrdering Facility: [facility] Address: [address] [place] [address] Performed By: #### 3 040-3, 56268-9, 92823-8, 39165-1 ####[facility] [place] LABCLIA [id number] [place] [address] [place] Chloride [Moles/Vol] 87 mmol/L Low 98-107 [facility] Comment on above: Order Comment: Speci men Type: BLOOD SPECIMENOrdering Facility: [facility] Address: [address] [place] [address] Performed By: #### 3 040-3, 25800-2, 37082-3, 74022-8 ####[facility] [place] LABCLIA [id number] [place] [address] [place] CO2 [Moles/Vol] 26 mmol/L Normal 22-30 [facility] Comment on above: Order Comment: Speci men Type: BLOOD SPECIMENOrdering Facility: [facility] Address: [address] [place] [address] Performed By: #### 3 040-3, 20164-3, 62488-0, 11127-0 ####[facility] [place] LABCLIA [id number] [place] [address] [place] Creatinine [Mass/Vol] 1.53 mg/dL High 0.73-1.22 [facility] Comment on above: Order Comment: Speci men Type: BLOOD SPECIMENOrdering Facility: [facility] Address: [address] [place] [address] Performed By: #### 3 040-3, 15954-7, 38716-5, 04929-7 ####[facility] [employer] LABCLIA [id number] [place] [address] [place] Creatinine and Glomerular filtration rate.predicted panel (S/P/Bld) 48 mL/min/1.73m??? Low >=60 [facility] Comment on above: Order Comment: Elgin egan Type: BLOOD SPECIMENOrdering Facility: [facility] Address: [address] [place] [address] Result Comment: Tamika mated Glomerular Filtration Rate (eGFR) is calculated using the 2020 CKD-EPI creatinine equation. This equation utilizes serum creatinine, sex, and age as parameters. The creatinine assay has traceable calibration to isotope dilution-mass spectrometry. Refer to KDIGO guidelines for clinical interpretation. In patients with unstable renal function, e.g. those with acute kidney injury, the eGFR may not accurately reflect actual GFR. Performed By: #### 3 040-3, 95119-3, 94803-1, 19963-5 ####[facility] [employer] LABCLIA [id number] [place] [address] [place] Glucose [Mass/Vol] 133 mg/dL High 74-99 [facility] Comment on above: Order Comment: Elgin egan Type: BLOOD SPECIMENOrdering Facility: [facility] Address: [address] [place] [address] Result Comment: The [place] Diabetes Association (ADA) provides guidance for cutoff values for fasting glucose and random glucose. The ADA defines fasting as no caloric intake for at least 8 hours. Fasting plasma glucose results between 100 to 125 mg/dL indicate increased risk for diabetes (prediabetes). Fasting plasma glucose results greater than or equal to 126 mg/dL meet the criteria for diagnosis of diabetes. In the absence of unequivocal hyperglycemia, results should be confirmed by repeat testing. In a patient with classic symptoms of hyperglycemia or hyperglycemic crisis, random plasma glucose results greater than or equal to 200 mg/dL meet the criteria for diagnosis of diabetes. Reference: Standards of Medical Care in Diabetes 2016, [place] Diabetes Association. Diabetes Care. 2016.39(Suppl 1). Performed By: #### 3 040-3, 95720-5, 77704-7, 34446-0 ####[facility] [employer] LABCLIA [id number] [place] [address] [place] Potassium [Moles/Vol] 4.3 mmol/L Normal 3.7-5.1 [facility] Comment on above: Order Comment: Speci men Type: BLOOD SPECIMENOrdering Facility: [facility] Address: [address] [place] [address] Performed By: #### 3 040-3, 82487-1, 57543-6, 89731-6 ####[facility] [employer] LABCLIA [id number] [place] [address] [place] Protein [Mass/Vol] 6.9 g/dL Normal 6.3-8.0 [facility] Comment on above: Order Comment: Speci men Type: BLOOD SPECIMENOrdering Facility: [facility] Address: [address] [place] [address] Performed By: #### 3 040-3, 96657-5, 75038-4, 78955-0 ####[facility] LABCLIA [id number] [place] [address] [place] Sodium [Moles/Vol] 127 mmol/L Low 136-144 [facility] Comment on above: Order Comment: Speci men Type: BLOOD SPECIMENOrdering Facility: [facility] Address: [address] [place] [address] Performed By: #### 3 040-3, 57473-5, 31898-8, 30522-4 ####[facility] [employer] LABCLIA [id number] [place] [address] [place] Urea nitrogen [Mass/Vol] 14 mg/dL Normal 9-24 [facility] Comment on above: Order Comment: Speci men Type: BLOOD SPECIMENOrdering Facility: [facility] Address: [address] [place] [address] Performed By: #### 3 040-3, 18182-9, 45863-2, 40943-3 ####[facility] LABSHUBHAM [id number] [place] [address] [facility] ECG COMPLETEon 10-12-2024 ECG COMPLETE Ventricular Rate : 9 3 BPM Atrial Rate : 93 BPM P-R Interval : 256 ms QRS Duration : 84 ms Q-T Interval : 376 ms QTC Calculation(Bazett) : 467 ms Calculated P Alma : 46 degrees Calculated R Alma : -13 degrees Calculated T Alma : 30 degrees SINUS RHYTHM WITH 1ST DEGREE A-V BLOCK WITH PREMATURE ATRIAL COMPLEXES LOW VOLTAGE QRS CANNOT RULE OUT ANTERIOR INFARCT , AGE UNDETERMINED ABNORMAL ECG NO PREVIOUS ECGS AVAILABLE Confirmed by MD DOWNS VINAYAK ([id number]) on 10/14/2024 11:06:15 PM NAME : MARS PETERSON PID : [id number] : 1955 Gender : Male Race : ORD : [id number] Procedure Date : Oct 12 2024 15:49:31 Edit Date : Oct 14 2024 23:06:20 Diagnosis: SINUS RHYTHM WITH 1ST DEGREE A-V BLOCK WITH PREMATURE ATRIAL COMPLEXES LOW VOLTAGE QRS CANNOT RULE OUT ANTERIOR INFARCT , AGE UNDETERMINED ABNORMAL ECG NO PREVIOUS ECGS AVAILABLE Confirmed by MD DOWNS VINAYAK ([id number]) on 10/14/2024 11:06:15 PM Test Reason : Chest Pain Location : 191 : [facility] ED Overread By : MD DOWNS VINAYAK Edited By : MD DOWNS VINAYAK Referred By : , Acquired by : CHRYSTAL CARDOSO [facility] ED NOTEon 10-12-2024 ED NOTE HNO ID: [id number] Author: GISEL INIGUEZ, SERGEY Service: Emergency Medicine Author Type: Registered Nurse Type: ED Notes Filed: 10/12/2024 22:45 Note Text: Report to Darrel Delarosa chief business officer. [facility] ED NOTE HNO ID: [id number] Author: GISEL INIGUEZ RN Service: Emergency Medicine Author Type: Registered Nurse Type: ED Notes Filed: 10/12/2024 21:57 Note Text: Attempt to call report, left phone number for return call. [facility] ED NOTE HNO ID: [id number] Author: GISEL INIGUEZ, RN Service: Emergency Medicine Author Type: Registered Nurse Type: ED Notes Filed: 10/12/2024 21:45 Note Text: Bed assignment: Walter [address] [place] [phone] [facility] ED NOTE HNO ID: [id number] Author: GISEL INIGUEZ RN Service: Emergency Medicine Author Type: Registered Nurse Type: ED Notes Filed: 10/12/2024 15:48 Note Text: Patient woke up his at 0300 with chills. Patient had temp of 100.9, spouse gave Tylenol at about 0930. Patient uses 3 L/NC at home. Patient had vomiting twice this morning. Patient's home health nurse came out, his BP was 78/56. Patient is coughing as well. Patient's states that he also has had some confusion. Patient is alert and oriented x3. Normal [facility] ED PROV NOTEon 10-12-2024 ED PROV NOTE HNO ID: [id number] Author: ASH OBRIEN MD Service: Emergency Medicine Author Type: Physician Type: ED Provider Notes Filed: 10/13/2024 07:52 Note Text: ED Provider Note Patient Name: Mars Peterson : 1955 SERVICE DATE: 10/12/24 History Patient presents with: Shortness of Breath Confused Cough Patient with history of multimedical problems, was brought to the ER by his , for concerns over possible sepsis. History is mainly provided per as patient is very hard of hearing. Patient has a history of interstitial lung disease, and is on chronic 3 L nasal cannula, however has had increasing shortness of breath, specifically with exertion over the past couple of days. Patient additionally records reports increased dyspnea, with sputum production without blood. Patient's also had 2 episodes of emesis overnight, and he feels nauseous. Home care nurse noted patient to have a fever this morning, reported 100.9 for which she was given Tylenol for, and concern for sepsis as she had a blood pressure reported 70s systolic. Patient denies chest pain, and he is not currently taking antibiotics. There is no known sick contacts. Patient has no diarrhea, however feels his abdomen is distended. is concerned patient's been somewhat forgetful recently. Patient is a daily drinker, having up to 6 beers a day, no concern for previous withdrawals, no alcohol noted today Fatigue Severity: Moderate Onset quality: Gradual Duration: 3 days Timing: Intermittent Progression: Worsening Chronicity: New Context: alcohol use and dehydration Associated symptoms: cough, fever, nausea, shortness of breath and vomiting Associated symptoms: no abdominal pain and no loss of consciousness Risk factors: congestive heart failure, coronary artery disease and heart disease 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 Peripheral vascular disease Right hand pain S/P CABG (coronary artery bypass graft) Umbilical hernia PAST SURGICAL HISTORY Procedure Laterality Date BACK SURGERY HX 2017 CABG (1) VEIN GRAFT AND ARTERIAL GRAFT 2001 CABG x4 COLONOSCOPY 2006 FINGER AMPUTATION (SPECIFY DIGIT) HX HIP SURGERY HX 1999 1999, 2019 Replacement Right and left LEG AMPUTATION HX Right 2018 PAST SURGICAL HISTORY OF coccyx for pilonidal cyst REMV CATARACT EXTRACAP,INSERT LENS Bilateral FAMILY HISTORY Problem Relation Age of Onset Ovarian cancer Mother other (afib) Mother COPD Mother Asthma Mother Heart Father heart attack other (Chronic oxygen) Father other (bladder cancer) Maternal Aunt Cancer Maternal Aunt Cancer Maternal Uncle Heart Paternal Uncle Leukemia Paternal Uncle Colon Cancer No Family History Social History Tobacco Use Smoking status: Former Current packs/day: 0.00 Average packs/day: 2.0 packs/day for 40.0 years (80.0 ttl pk-yrs) Types: Cigarettes Start date: 05/13/1961 Quit date: 05/13/2001 Years since quittin.4 Smokeless tobacco: Former Types: Chew Vaping Use Vaping status: Never Used Substance and Sexual Activity Alcohol use: Yes Alcohol/week: 10.0 standard drinks of alcohol Types: 10 Cans of beer per week Drug use: Never Sexual activity: Not on file ALLERGIES Allergen Reactions Animal Dander Other: See Comments Anything with fur Seasonal Allergies Other: See Comments Stuffy nose, headaches Review of Systems Constitutional: Positive for fatigue, fever and malaise/fatigue. Respiratory: Positive for cough and shortness of breath. Gastrointestinal: Positive for nausea and vomiting. Negative for abdominal pain. Skin: Positive for rash. Resolving shingels to left side of abdomen Neurological: Negative for loss of consciousness. Physical Exam Vitals [10/12/24 1548] BP Pulse Temp Temp src Resp SpO2 Weight Height 131/71 90 36.8 ?C (98.2 ?F) Temporal (!) 28 98 % 123.8 kg (273 lb) -- Physical Exam Vitals and nursing note reviewed. Constitutional: General: He is not in acute distress. Appearance: Normal appearance. He is well-developed. He is ill-appearing. He is not toxic-appearing. HENT: Head: Normocephalic and atraumatic. Eyes: General: Right eye: No discharge. Left eye: No discharge. Neck: Vascular: No JVD. Cardiovascular: Rate and Rhythm: Normal rate. Heart sounds: Murmur heard. Pulmonary: Effort: Tachypnea present. No respiratory distress. Breath sounds: Examination of the right-middle field reveals rales. Examination of (more content not included)... Normal [facility] ESR Westergren method (Bld) [Velocity]on 10-12-2024 ESR (Bld) [Velocity] 32 mm/h High 0-15 [facility] Comment on above: Order Comment: Elgin egan Type: STOOL SPECIMEN [facility] Address: [address] [place] [address] Performed By: #### 7 9390-1 #### [facility] CLIA [id number] [address] [place] [address] [place] Ethanol SerPl-mCncon 025 Ethanol [Mass/Vol] mg/dL Normal <11 [facility] Comment on above: Order Comment: Elgin egan Type: BLOOD SPECIMENOrdering Facility: [facility] Address: [address] [place] [address] Performed By: #### 5 643-2 ####[facility] [employer] LABCLIA [id number] [place] [address] [place] HIGH SENSITIVITY TROPONIN To n 10-12-2024 Troponin T.cardiac High sensitivity method [Mass/Vol] 27 ng/L High <12 [facility] Comment on above: Order Comment: Speci men Type: BLOOD SPECIMEN [facility] Address: [address] [place] [address] Performed By: #### 1 988-5, HSTNT, 52397-2 #### [facility] CLIA [id number] [address] [place], [place] [address] [place] [address] OF [place] HIGH SENSITIVITY TROPONIN T (INITIAL)on 10-12-2024 Troponin T.cardiac High sensitivity method [Mass/Vol] 49 ng/L High <12 [facility] Comment on above: Order Comment: Speci men Type: BLOOD SPECIMENOrdering Facility: [facility] Address: [address] [place] [address] Performed By: #### L [id number] ####[facility] LABCLIA [id number] [place] [address] [facility] HIGH SENSITIVITY TROPONIN T (SECOND)on 10-12-2024 Troponin T.cardiac High sensitivity method [Mass/Vol] 41 ng/L High <12 [facility] Comment on above: Order Comment: Speci men Type: BLOOD SPECIMENOrdering Facility: [facility] Address: [address] [place] [address] Performed By: #### L [id number] ####[facility] LABCLIA [id number] [place] [address] [facility] HIGH SENSITIVITY TROPONIN T (THIRD) 3 HRS AFTER INITIALon 10-12-2024 Troponin T.cardiac High sensitivity method [Mass/Vol] 31 ng/L High <12 [facility] Comment on above: Order Comment: Speci men Type: BLOOD SPECIMENOrdering Facility: [facility] Address: [address] [place] [address] Performed By: #### L [id number] ####[facility] LABCLIA [id number] [place] [address] [place] HISTORY PHYSICALon HISTORY PHYSICAL HNO ID: [id number] Author: TRU PRESCOTT MD Service: Hospital Medicine Author Type: Nurse Practitioner Type: H&P Filed: 10/13/2024 07:15 Note Text: ----- Attestation signed by Tru Prescott MD at 10/13/2024 7:15 AM Discussed with provider below and I agree with their history exam assessment and plan. Tru Prescott MD ----- [facility] MEDICINE HISTORY AND PHYSICAL EXAM SERVICE DATE: 10/12/2024 SERVICE TIME: 11:45 PM Primary Care Physician: Alma Gill APRN.[facility] NIGHT AND WEEKEND COVERAGE: [place] COVERAGE: Days: [phone], please page attending physician. Nights: [phone], please page [facility] Night [facility] pager [phone]. Subjective CHIEF COMPLAINT: Feeling unwell HPI: This is a 69 year old male with a past medical history notable for diastolic heart failure, interstitial lung disease on 3 L of oxygen chronically, hypertension, CAD s/p CABG x 4, HILARIO, PVD s/p right BKA, anxiety/depression, hyperlipidemia, and hyponatremia who presents with feeling unwell. Patient states that his ill feelings started yesterday morning when he awoke suddenly at approximately 3 AM. At that time, he states that he was shaking but was able to fall back asleep till approximately 6 AM. At that time, he felt diaphoretic and his took his temperature which was found to be 100.9. They decided to wait until home health care came who found that his blood pressure was low and directed him to come to the emergency room. Interestingly, the patient also notes that he does have a chronic cough but for the past 2-3 nights it has been more frequent/productive which it normally is not. He also notes some chronic diarrhea that does not seem to be changing in amount or consistency as well as 2 episodes of emesis/nausea. 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 Socially, the patient denies nicotine use, alcohol use, or recreational drug use. Furthermore he denies headache, changes in his vision/hearing, trouble swallowing, chest pain, shortness of breath, abdominal pain, constipation/hematochezia , urinary changes, new numbness/tingling, or new swelling. In the [place] ED the patient was found to be afebrile and hemodynamically stable as well as saturating well on his baseline 3 L of oxygen via NC. Labs are notable for sodium of 127, chloride of 87, bicarbonate of 26, creatinine of 1.53, blood glucose of 133, normal LFTs, BNP of 1255, ethanol less than 11, high-sensitivity troponin of 49-->41-->31, hemoglobin of 13.3, and leukocytosis of 11.92 with an ANC of 9.73. COVID/flu/RSV swabs were found to be negative. UA was found to be negative for signs of UTI. Chest x-ray demonstrated unchanged moderate interstitial pulmonary opacities bilaterally which may be secondary to known pulmonary fibrosis although there is a possibility of superimposed pulmonary edema or infection. CT of the abdomen and pelvis demonstrated several air-filled loops of bowel seen without evidence of bowel obstruction as well as a large amount of fluid in the sigmoid colon/rectum possibly in setting of colitis. The patient was given doses of DuoNebs, albuterol, Solu-Medrol, 1 L normal saline, Augmentin, and Zofran. He is being transferred to hospital medicine at [place] for further workup and management of his sepsis of unknown origin. 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 Peripheral vascular disease Right hand pain S/P CABG (coronary artery bypass graft) Umbilical hernia PAST SURGICAL HISTORY Procedure Laterality Date BACK SURGERY HX 2017 CABG (1) VEIN GRAFT AND ARTERIAL GRAFT 2002 CABG x4 COLONOSCOPY 2007 FINGER AMPUTATION (SPECIFY DIGIT) HX HIP SURGERY HX 2000 1999, 2019 Replacement Right and left LEG AMPUTATION HX Right 2018 PAST SURGICAL HISTORY OF coccyx for pilonidal cyst REMV CATARACT EXTRACAP,INSERT LENS Bilateral FAMILY HISTORY Problem Relation Age of Onset Ovarian cancer Mother other (afib) Mother COPD Mother Asthma Mother Heart Father heart attack other (Chronic oxygen) Father other (bladder cancer) Maternal Aunt Cancer Maternal Aunt Cancer Maternal Uncle Heart Paternal Uncle Leukemia Paternal Uncle Colon Cancer No Family History Social History Tobacco Use Smoki (more content not included)... Normal [facility] Lipase SerPl-cCncon 10-13-19 25 Lipase [Catalytic activity/Vol] 13 U/L Low 16-61 [facility] Comment on above: Order Comment: [facility] Type: BLOOD SPECIMENOrdering Facility: [facility] Address: [address] [place] [address] Performed By: #### 3 040-3, 05667-4, 26185-8, 70880-9 ####[facility] LABIA [id number] [place] [address] [place] Magnesium [facility]-ncon 10-12 Magnesium [Mass/Vol] 1.9 mg/dL Normal 1.7-2.3 [facility] Comment on above: Order Comment: [facility] Type: BLOOD SPECIMENOrdering Facility: [facility] Address: [address] [place] [address] Performed By: #### 3 040-3, 85268-9, 31597-9, 28746-9 ####[facility] LABCLIA [id number] [place] [address] [place] NT-proBNP SerPl-mCncon 10-12 Natriuretic peptide.B prohormone N-Terminal [Mass/Vol] 1255 pg/mL High <125 [facility] Comment on above: Order Comment: [facility] Type: BLOOD SPECIMENOrdering Facility: [facility] Address: [address] [place] [address] Performed By: #### 3 040-3, 50070-6, 85236-4, 44730-4 ####[facility] LABCLIA [id number] [place] [address] [facility] Procalcitonin SerPl-mCncon 0 10-12-2024 Procalcitonin [Mass/Vol] 0.35 ng/mL High <0.09 [facility] Comment on above: Order Comment: Speci men Type: BLOOD SPECIMEN [facility] Address: [address] [place] [address] Result Comment: For a guided interpretation of test results, please visit the Change in Procalcitonin Calculator, [email or web address]. Performed By: #### 1 988-5, HSTNT, 38398-9 #### [facility] CLIA [id number] [address] SEPSIS LACTATE W/ REFLEX (IN ITIAL)on 10-12-2024 Lactate [Moles/Vol] 2.0 mmol/L Normal <=2.0 [facility] Comment on above: Order Comment: Speci men Type: BLOOD SPECIMENOrdering Facility: [facility] Address: [address] [place] [address] Performed By: #### S LACTR ####[facility] LABCLIA [id number] [place] [address] [facility] Urinalysis complete panel (U )on 10-12-2024 Bacteria LM.HPF (Urine sed) [#/Area] Few Abnormal None Seen [facility] Comment on above: Order Comment: Speci men Type: URINE SPECIMENOrdering Facility: [facility] Address: [address] [place] [address] Performed By: #### 2 4356-8 ####[facility] LABCLIA [id number] [place] [address] [facility] OF [place] Bilirubin Ql (U) Negative Normal Negative [facility] Comment on above: Order Comment: Speci men Type: URINE SPECIMENOrdering Facility: [facility] Address: [address] [place] [address] Performed By: #### 2 4356-8 ####[facility] LABCLIA [id number] [place] [address] [facility] OF [place] Clarity (Unsp spec) Clear Normal Clear [facility] Comment on above: Order Comment: Speci men Type: URINE SPECIMENOrdering Facility: [facility] Address: [address] [place] [address] Performed By: #### 2 4356-8 ####[facility] LABCLIA [id number] [place] [address] [facility] Color (U) Yellow Normal Yellow [facility] Comment on above: Order Comment: Speci men Type: URINE SPECIMENOrdering Facility: [facility] Address: [address] [place] [address] Performed By: #### 2 4356-8 ####[facility] LABCLIA [id number] [place] [address] [facility] Epithelial cells LM.HPF (Urine sed) [#/Area] Few Normal [facility] Comment on above: Order Comment: Speci men Type: URINE SPECIMENOrdering Facility: [facility] Address: [address] [place] [address] Result Comment: Few Performed By: #### 2 4356-8 ####[facility] LABCLIA [id number] [place] [address] [facility] [place] Glucose Test strip (U) [Mass/Vol] Negative Normal Negative [facility] Comment on above: Order Comment: Speci men Type: URINE SPECIMENOrdering Facility: [facility] Address: [address] [place] [address] Performed By: #### 2 4356-8 ####[facility] LABCLIA [id number] [place] [address] [facility] [place] Hemoglobin Ql (U) 2+ Abnormal Negative [facility] Comment on above: Order Comment: Speci men Type: URINE SPECIMENOrdering Facility: [facility] Address: [address] [place] [address] Performed By: #### 2 4356-8 ####[facility] LABCLIA [id number] [place] [address] [facility] Hyaline casts (Urine sed) [#/Area] 1-3 /LPF Abnormal 0 /LPF [facility] Comment on above: Order Comment: Speci men Type: URINE SPECIMENOrdering Facility: [facility] Address: [address] [place] [address] Performed By: #### 2 4356-8 ####[facility] LABCLIA [id number] [place] [address] [facility] Ketones Ql (U) Negative Normal Negative [facility] Comment on above: Order Comment: Speci men Type: URINE SPECIMENOrdering Facility: [facility] Address: [address] [place] [address] Performed By: #### 2 4356-8 ####[facility] LABCLIA [id number] [place] [address] [facility] Leukocyte esterase Test strip Ql (U) Negative Normal Negative [facility] Comment on above: Order Comment: Speci men Type: URINE SPECIMENOrdering Facility: [facility] Address: [address] [place] [address] Performed By: #### 2 4356-8 ####[facility] LABCLIA [id number] [place] [address] [place] Nitrite Ql (U) Negative Normal Negative [facility] Comment on above: Order Comment: Speci men Type: URINE SPECIMENOrdering Facility: [facility] Address: [address] [place] [address] Performed By: #### 2 4356-8 ####[facility] LABCLIA [id number] [place] [address] [place] pH (U) 5.5 [pH] Normal 5.0-8.0 [facility] Comment on above: Order Comment: Speci men Type: URINE SPECIMENOrdering Facility: [facility] Address: [address] [place] [address] Performed By: #### 2 4356-8 ####[facility] LAB[facility] [id number] [place] [address] [facility] Protein (U) [Mass/Vol] Negative Normal Negative [facility] Comment on above: Order Comment: Speci men Type: URINE SPECIMENOrdering Facility: [facility] Address: [address] [place] [address] Performed By: #### 2 4356-8 ####[facility] LAB[facility] [id number] [place] [id number] [facility] RBC LM.HPF (Urine sed) [#/Area] 6-10 /HPF Abnormal 0-3 /HPF [facility] Comment on above: Order Comment: Speci men Type: URINE SPECIMENOrdering Facility: [facility] Address: [address] [place] [address] Performed By: #### 2 4356-8 ####[facility] LAB[facility] [id number] [place] [id number] [facility] Specific gravity (U) [Rel density] <=1.005 Low 1.005-1.030 [facility] Comment on above: Order Comment: Speci men Type: URINE SPECIMENOrdering Facility: [facility] Address: [address] [place] [address] Performed By: #### 2 4356-8 ####[facility] LABCLIA [id number] [place] [address] [facility] Urobilinogen Ql (U) 0.2 EU/dL Normal 0.2-1.0 EU/dL [facility] Comment on above: Order Comment: Speci men Type: URINE SPECIMENOrdering Facility: [facility] Address: [address] [place] [address] Performed By: #### 2 4356-8 ####[facility] LABCLIA [id number] [place] [address] [facility] WBC LM.HPF (Urine sed) [#/Area] 0-5 /HPF Normal 0-5 /HPF [facility] Comment on above: Order Comment: Speci men Type: URINE SPECIMENOrdering Facility: [facility] Address: [address] [place] [address] Performed By: #### 2 4356-8 ####[facility] LABCLIA [id number] [place] [address] [facility] XR CHEST 1V FRONTALon 2024 XR CHEST 1V FRONTAL * * *Final Report* * * DATE OF EXAM: Oct 12 2024 5:32PM LDX 5290 - XR CHEST 1V FRONTAL / PROCEDURE REASON: Shortness of breath * * * * Physician Interpretation * * * * EXAMINATION: CHEST RADIOGRAPH (SINGLE VIEW AP OR PA) CLINICAL HISTORY: Shortness of breath, Cough MQ: XC1_5 Comparison: 01/11/2024. Chest CT on 07/16/2024. RESULT: Lines, tubes, and devices: None. Lungs and pleura: Unchanged a moderate interstitial pulmonary opacities bilaterally. No gross evidence of superimposed large consolidation. No significant pleural effusion or pneumothorax. Cardiomediastinal silhouette: Enlarged but unchanged. Status post median sternotomy. Other: No evidence of acute displaced fractures. IMPRESSION: Unchanged moderate interstitial pulmonary opacities bilaterally. Although this may be secondary to known pulmonary fibrosis, possibility of superimposed pulmonary edema or infection is not excluded. No evidence of large consolidation, or significant pleural effusion. No evidence of pneumothorax. Hot Wire Glass Tube Cutter: PSCB Transcribe Date/Time: Oct 12 2024 5:39P Dictated by : CAROLYNN GRAHAM MD This examination was interpreted and the report reviewed and electronically signed by: CAROLYNN GRAHAM MD on Oct 12 2024 5:40PM EST [id number] Normal [facility] CNPDanitza 10-08-2024 DIMITRI Telephone (AGFALE) ----- PETERSONMARS ([id number]) 1955 M DEF Date Time Provider Department 10/08/24 AL[place] GILL During your visit today, we recorded the following information about you: Priya Pedersen MA 10/08/2024 11:53 AM Signed Form placed on signing tray from [facility] Order: [id number] VANNA Rojas Julie, [place] 10/12/2024 1:41 PM Signed Faxed Priya Pedersen MA Allergies As of Date: 10/08/2024 Noted Allergy Reaction ANIMAL DANDER 08/21/2022 14 - Other: See Comments Comments: Anything with fur SEASONAL ALLERGIES 08/21/2022 14 - Other: See Comments Comments: Stuffy nose, headaches Date Reviewed: 09/23/2024 Reviewed by: Sarai Balbuena LPN - Fully Assessed Reason for Visit: Electronic Communication [890] Forms [913] Prescriptions as of 10/12/2024 - traZODone (DESYREL) 100 mg tablet TAKE 2 TABLETS BY MOUTH EVERY DAY AT BEDTIME - azaTHIOprine (IMURAN) 50 mg tablet Take 1 tablet by mouth once daily for 14 days, THEN 2 tablets once daily for 14 days, THEN 3 tablets once daily for 14 days, THEN 4 tablets once daily for 14 days. - acyclovir (ZOVIRAX) 400 mg tablet Take 1 tablet by mouth once daily. - Blood-Glucose Sensor (FREESTYLE ROSA 3 PLUS SENSOR) chata 1 device every 2 weeks. - predniSONE (DELTASONE) 10 mg tablet TAKE 2 TABLETS BY MOUTH ONCE DAILY FOR 21 DAYS, THEN 1.5 TABLETS ONCE DAILY FOR 21 DAYS, THEN 1 TABLET ONCE DAILY FOR 21 DAYS, THEN 0.5 TABLETS ONCE DAILY FOR 21 DAYS. - isosorbide mononitrate ER (IMDUR) 30 mg 24 hr tablet Take 1 tablet by mouth once daily. - gabapentin (NEURONTIN) 300 mg capsule TAKE 2 CAPSULES BY MOUTH EVERY MORNING AND 3 CAPSULES AT BEDTIME FOR 30 DAYS. Strength: 300 mg - hydrOXYzine HCl (ATARAX) 25 mg tablet Take 2 tablets by mouth two times a day. - budesonide (PULMICORT) 0.5 mg/2 mL nebulizer solution Use 2 mL via nebulizer two times a day. - ipratropium-albuterol (DUONEB) 0.5 mg-3 mg(2.5 mg base)/3 mL nebu Inhale 3 mL as instructed every 4 hours while awake. - metoprolol succinate ER (TOPROL XL) 25 mg 24 hr tablet Take 1 tablet by mouth every afternoon. - clopidogrel (PLAVIX) 75 mg tablet Take 1 tablet by mouth once daily. - pantoprazole DR (PROTONIX) 40 mg tablet Take 1 tablet by mouth once daily. - rosuvastatin (CRESTOR) 20 mg tablet Take 1 tablet by mouth daily at bedtime. - lisinopril 2.5 mg tablet Take 1 tablet by mouth two times a day. Hold if SBP less than 110 - ezetimibe (ZETIA) 10 mg tablet Take 1 tablet by mouth once daily. - guaiFENesin (MUCINEX) 600 mg 12 hr tablet Take 1 tablet by mouth two times a day as needed for cold/allergy symptoms. - furosemide (LASIX) 40 mg tablet Take 1 tablet by mouth three times a week. - escitalopram oxalate (LEXAPRO) 20 mg tablet Take 1 tablet by mouth once daily. - colestipol (COLESTID) 1 gram tablet Take 1 tablet by mouth two times a day. - OXYGEN, HOME THERAPY, 3 L/min by Nasal Cannula route as directed. - fluticasone (FLONASE) 50 mcg/actuation nasal spray spray 1 spray into each nostril every day - nitroglycerin sublingual (NITROSTAT) 0.4 mg SL tablet Dissolve 1 tablet under the tongue every 5 minutes as needed for chest pain. - albuterol sulfate 90 mcg/actuation aebs Inhale 1-2 Puffs as instructed every 4 hours as needed for wheezing/shortness of breath. - Lactobacillus acidophilus (PROBIOTIC) 10 billion cell cap Take 1 capsule by mouth once daily. - acetaminophen (TYLENOL EXTRA STRENGTH) 500 mg tablet Take 2 tablets by mouth every 8 hours as needed for pain. FOR PAIN. - Zinc 50 mg tab Take 50 mg by mouth once daily. - aspirin, enteric coated (ASPIRIN, ENTERIC COATED) 81 mg EC tablet Take 81 mg by mouth once daily. - multivit-min/folic/vit K/lycop (ONE-A-DAY MEN'S MULTIVITAMIN ORAL) Take by mouth once daily. 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 Normal [facility] CNPNon 09-30-2024 CNPN Normal [facility] CBC W Auto Differential pane l (Bld)on 09-28-2024 Basophils (Bld) [#/Vol] 10*3/uL Normal <0.11 [facility] Comment on above: Order Comment: Speci men Type: BLOOD SPECIMENOrdering Facility: External Submitter Address: , , Performed By: #### 3 3882-8 ####[facility] LABCLIA [id number] [facility] [address] [place] [address] [place] Basophils/100 WBC (Bld) 0.2 % Normal [facility] Comment on above: Order Comment: Speci men Type: BLOOD SPECIMENOrdering Facility: External Submitter Address: , , Performed By: #### 5 7021-8 ####[facility] LABCLIA [id number] [address] [place] [address] [facility] Differential cell count method Nom (Bld) Auto Normal [facility] Comment on above: Order Comment: Speci men Type: BLOOD SPECIMENOrdering Facility: External Submitter Address: , , Performed By: #### 5 7021-8 ####[facility] LABCLIA [id number] [address], [place] [address] [place] Eosinophils (Bld) [#/Vol] 0.05 10*3/uL Normal <0.46 [facility] Comment on above: Order Comment: Speci men Type: BLOOD SPECIMENOrdering Facility: External Submitter Address: , , Performed By: #### 5 7021-8 ####[facility] LABCLIA [id number] [address], [address] [facility] Eosinophils/100 WBC (Bld) 0.5 % Normal [facility] Comment on above: Order Comment: Speci men Type: BLOOD SPECIMENOrdering Facility: External Submitter Address: , , Performed By: #### 5 7021-8 ####[facility] LABCLIA [id number] [address] [place] [address] [place] Erythrocyte distribution width (RBC) [Ratio] 15.0 % Normal 11.5-15.0 [facility] Comment on above: Order Comment: Speci men Type: BLOOD SPECIMENOrdering Facility: External Submitter Address: , , Performed By: #### 5 7021-8 ####[facility] LABCLIA [id number] [address] [address] [facility] Hematocrit (Bld) [Volume fraction] 38.6 % Low 39.0-51.0 [facility] Comment on above: Order Comment: Speci men Type: BLOOD SPECIMENOrdering Facility: External Submitter Address: , , Performed By: #### 5 7021-8 ####[facility] LABCLIA [id number] [address] [place] Hemoglobin (Bld) [Mass/Vol] 12.2 g/dL Low 13.0-17.0 [facility] Comment on above: Order Comment: Speci men Type: BLOOD SPECIMENOrdering Facility: External Submitter Address: , , Performed By: #### 5 7021-8 ####[facility] LABCLIA [id number] [address] [place] Immature granulocytes (Bld) [#/Vol] 0.10 10*3/uL High <0.10 [facility] Comment on above: Order Comment: Speci men Type: BLOOD SPECIMENOrdering Facility: External Submitter Address: , , Performed By: #### 5 7021-8 ####[facility] LABCLIA [id number] [address] Immature granulocytes/100 WBC (Bld) 1.0 % Normal [facility] Comment on above: Order Comment: Speci men Type: BLOOD SPECIMENOrdering Facility: External Submitter Address: , , Performed By: #### 5 7021-8 ####[facility] LABCLIA [id number] [address] [place] Lymphocytes (Bld) [#/Vol] 1.01 10*3/uL Normal 1.00-4.00 [facility] Comment on above: Order Comment: Speci men Type: BLOOD SPECIMENOrdering Facility: External Submitter Address: , , Performed By: #### 5 7021-8 ####[facility] LABCLIA [id number] [address] [facility] Lymphocytes/100 WBC (Bld) 10.3 % Normal [facility] Comment on above: Order Comment: Speci men Type: BLOOD SPECIMENOrdering Facility: External Submitter Address: , , Performed By: #### 5 7021-8 ####[facility] LABCLIA [id number] [address] STATES [facility] MCH (RBC) [Entitic mass] 28.3 pg Normal 26.0-34.0 [facility] Comment on above: Order Comment: Speci men Type: BLOOD SPECIMENOrdering Facility: External Submitter Address: , , Performed By: #### 5 7021-8 ####[facility] [id number] [address] [place] MCHC (RBC) [Mass/Vol] 31.6 g/dL Normal 30.5-36.0 [facility] Comment on above: Order Comment: Speci men Type: BLOOD SPECIMENOrdering Facility: External Submitter Address: , , Performed By: #### 5 7021-8 ####[facility] LABIA [id number] [address] [facility] MCV (RBC) [Entitic vol] 89.6 fL Normal 80.0-100.0 [facility] Comment on above: Order Comment: Speci men Type: BLOOD SPECIMENOrdering Facility: External Submitter Address: , , Performed By: #### 5 7021-8 ####[facility] LABIA [id number] [place] [id number] [facility] Monocytes (Bld) [#/Vol] 0.73 10*3/uL Normal <0.87 [facility] Comment on above: Order Comment: Speci men Type: BLOOD SPECIMENOrdering Facility: External Submitter Address: , , Performed By: #### 5 7021-8 ####[facility] LABCLIA [id number] [address] [id number] [address] [place] Monocytes/100 WBC (Bld) 7.4 % Normal [facility] Comment on above: Order Comment: Speci men Type: BLOOD SPECIMENOrdering Facility: External Submitter Address: , , Performed By: #### 5 7021-8 ####[facility] LABCLIA [id number] [id number], [place] [address] [place] Neutrophils (Bld) [#/Vol] 7.93 10*3/uL High 1.45-7.50 [facility] Comment on above: Order Comment: Speci men Type: BLOOD SPECIMENOrdering Facility: External Submitter Address: , , Performed By: #### 5 7021-8 ####[facility] LABCLIA [id number] [facility] [id number], [place] [address] [place] Neutrophils/100 WBC (Bld) 80.6 % Normal [facility] Comment on above: Order Comment: Speci men Type: BLOOD SPECIMENOrdering Facility: External Submitter Address: , , Performed By: #### 5 7021-8 ####[facility] LABCLIA [id number] [facility] [address] [place] [address] [place] Nucleated RBC (Bld) [#/Vol] 10*3/uL Normal <0.01 [facility] Comment on above: Order Comment: Speci men Type: BLOOD SPECIMENOrdering Facility: External Submitter Address: , , Performed By: #### 5 7021-8 ####[facility] LABCLIA [id number] [address] [facility] [id number] [address] [place] Nucleated RBC/100 WBC (Bld) [Ratio] 0.0 /100 WBC Normal [facility] Comment on above: Order Comment: Speci men Type: BLOOD SPECIMENOrdering Facility: External Submitter Address: , , Performed By: #### 5 7021-8 ####[facility] LABCLIA [id number] [address] [facility] [id number] [address] [place] Platelet mean volume (Bld) [Entitic vol] 9.5 fL Normal 9.0-12.7 [facility] Comment on above: Order Comment: Speci men Type: BLOOD SPECIMENOrdering Facility: External Submitter Address: , , Performed By: #### 5 7021-8 ####[facility] LABIA [id number] [address] [address] [place] Platelets (Bld) [#/Vol] 233 10*3/uL Normal 150-400 [facility] Comment on above: Order Comment: Speci men Type: BLOOD SPECIMENOrdering Facility: External Submitter Address: , , Performed By: #### 5 7021-8 ####[facility] LABIA [id number] [id number] [place] [address] [place] RBC (Bld) [#/Vol] 4.31 10*6/uL Normal 4.20-6.00 [facility] Comment on above: Order Comment: Speci men Type: BLOOD SPECIMENOrdering Facility: External Submitter Address: , , Performed By: #### 5 7021-8 ####[facility] LABIA [id number] [id number] [place] [address] [place] WBC (Bld) [#/Vol] 9.84 10*3/uL Normal 3.70-11.00 [facility] Comment on above: Order Comment: Isadorai men Type: BLOOD SPECIMENOrdering Facility: External Submitter Address: , , Performed By: #### 5 7021-8 ####[facility] LABIA [id number] [address] [address] [facility] [place] Yamileth 09-28-2024 DIMITRI Telephone (MUKESH) ----- MARS PETERSON ([id number]) 1955 M DEF Date Time Provider Department 09/28/24 AL[place] GILL During your visit today, we recorded the following information about you: Priya Pedersen MA 09/28/2024 4:36 PM Signed Form placed on signing tray Order: [id number] VANNA Rojas Brenda, LPN 10/08/2024 9:56 AM Signed Form signed by Alma Gill CNP. Form faxed to [phone]. Fax confirmation received. Eri Feng LPN Allergies As of Date: 09/28/2024 Noted Allergy Reaction ANIMAL DANDER 08/21/2022 14 - Other: See Comments Comments: Anything with fur SEASONAL ALLERGIES 08/21/2022 14 - Other: See Comments Comments: Stuffy nose, headaches Date Reviewed: 09/23/2024 Reviewed by: Sarai Balbuena LPN - Fully Assessed Reason for Visit: Electronic Communication [890] Prescriptions as of 10/08/2024 - traZODone (DESYREL) 100 mg tablet TAKE 2 TABLETS BY MOUTH EVERY DAY AT BEDTIME - azaTHIOprine (IMURAN) 50 mg tablet Take 1 tablet by mouth once daily for 14 days, THEN 2 tablets once daily for 14 days, THEN 3 tablets once daily for 14 days, THEN 4 tablets once daily for 14 days. - acyclovir (ZOVIRAX) 400 mg tablet Take 1 tablet by mouth once daily. - Blood-Glucose Sensor (FREESTYLE ROSA 3 PLUS SENSOR) chata 1 device every 2 weeks. - predniSONE (DELTASONE) 10 mg tablet TAKE 2 TABLETS BY MOUTH ONCE DAILY FOR 21 DAYS, THEN 1.5 TABLETS ONCE DAILY FOR 21 DAYS, THEN 1 TABLET ONCE DAILY FOR 21 DAYS, THEN 0.5 TABLETS ONCE DAILY FOR 21 DAYS. - isosorbide mononitrate ER (IMDUR) 30 mg 24 hr tablet Take 1 tablet by mouth once daily. - gabapentin (NEURONTIN) 300 mg capsule TAKE 2 CAPSULES BY MOUTH EVERY MORNING AND 3 CAPSULES AT BEDTIME FOR 30 DAYS. Strength: 300 mg - hydrOXYzine HCl (ATARAX) 25 mg tablet Take 2 tablets by mouth two times a day. - budesonide (PULMICORT) 0.5 mg/2 mL nebulizer solution Use 2 mL via nebulizer two times a day. - ipratropium-albuterol (DUONEB) 0.5 mg-3 mg(2.5 mg base)/3 mL nebu Inhale 3 mL as instructed every 4 hours while awake. - metoprolol succinate ER (TOPROL XL) 25 mg 24 hr tablet Take 1 tablet by mouth every afternoon. - clopidogrel (PLAVIX) 75 mg tablet Take 1 tablet by mouth once daily. - pantoprazole DR (PROTONIX) 40 mg tablet Take 1 tablet by mouth once daily. - rosuvastatin (CRESTOR) 20 mg tablet Take 1 tablet by mouth daily at bedtime. - lisinopril 2.5 mg tablet Take 1 tablet by mouth two times a day. Hold if SBP less than 110 - ezetimibe (ZETIA) 10 mg tablet Take 1 tablet by mouth once daily. - guaiFENesin (MUCINEX) 600 mg 12 hr tablet Take 1 tablet by mouth two times a day as needed for cold/allergy symptoms. - furosemide (LASIX) 40 mg tablet Take 1 tablet by mouth three times a week. - escitalopram oxalate (LEXAPRO) 20 mg tablet Take 1 tablet by mouth once daily. - colestipol (COLESTID) 1 gram tablet Take 1 tablet by mouth two times a day. - OXYGEN, HOME THERAPY, 3 L/min by Nasal Cannula route as directed. - fluticasone (FLONASE) 50 mcg/actuation nasal spray spray 1 spray into each nostril every day - nitroglycerin sublingual (NITROSTAT) 0.4 mg SL tablet Dissolve 1 tablet under the tongue every 5 minutes as needed for chest pain. - albuterol sulfate 90 mcg/actuation aebs Inhale 1-2 Puffs as instructed every 4 hours as needed for wheezing/shortness of breath. - Lactobacillus acidophilus (PROBIOTIC) 10 billion cell cap Take 1 capsule by mouth once daily. - acetaminophen (TYLENOL EXTRA STRENGTH) 500 mg tablet Take 2 tablets by mouth every 8 hours as needed for pain. FOR PAIN. - Zinc 50 mg tab Take 50 mg by mouth once daily. - aspirin, enteric coated (ASPIRIN, ENTERIC COATED) 81 mg EC tablet Take 81 mg by mouth once daily. - multivit-min/folic/vit K/lycop (ONE-A-DAY MEN'S MULTIVITAMIN ORAL) Take by mouth once daily. 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 Normal [facility] Comprehensive metabolic 2000 panelon 09-28-2024 Albumin [Mass/Vol] 3.8 g/dL Low 3.9-4.9 [facility] Comment on above: Order Comment: Speci men Type: BLOOD SPECIMENOrdering Facility: External Submitter Address: , , Performed By: #### 2 4323-8 ####[facility] LABCLIA [id number] [place] [address] [place] ALP [Catalytic activity/Vol] 33 U/L Low 38-113 [facility] Comment on above: Order Comment: Speci men Type: BLOOD SPECIMENOrdering Facility: External Submitter Address: , , Performed By: #### 2 4323-8 ####[facility] LABCLIA [id number] [id number], [place] [address] [place] ALT [Catalytic activity/Vol] 19 U/L Normal 10-54 [facility] Comment on above: Order Comment: Speci men Type: BLOOD SPECIMENOrdering Facility: External Submitter Address: , , Performed By: #### 2 4323-8 ####[facility] LABCLIA [id number] [address] [place] [address] [place] Anion gap [Moles/Vol] 15 mmol/L Normal 8-15 [facility] Comment on above: Order Comment: Speci men Type: BLOOD SPECIMENOrdering Facility: External Submitter Address: , , Performed By: #### 2 4323-8 ####[facility] LABCLIA [id number] [address] [place] [address] [place] AST [Catalytic activity/Vol] 19 U/L Normal 14-40 [facility] Comment on above: Order Comment: Speci men Type: BLOOD SPECIMENOrdering Facility: External Submitter Address: , , Performed By: #### 2 4323-8 ####[facility] LABCLIA [id number] [facility] [address] [place] [address] [place] Bilirubin [Mass/Vol] 0.3 mg/dL Normal 0.2-1.3 [facility] Comment on above: Order Comment: Speci men Type: BLOOD SPECIMENOrdering Facility: External Submitter Address: , , Performed By: #### 2 4323-8 ####[facility] LABCLIA [id number] [address] [facility] [address] [place] [address] [place] Calcium [Mass/Vol] 8.6 mg/dL Normal 8.5-10.2 [facility] Comment on above: Order Comment: Speci men Type: BLOOD SPECIMENOrdering Facility: External Submitter Address: , , Performed By: #### 2 4323-8 ####[facility] LABCLIA [id number] [address] [address] [place] Chloride [Moles/Vol] 88 mmol/L Low 98-107 [facility] Comment on above: Order Comment: Speci men Type: BLOOD SPECIMENOrdering Facility: External Submitter Address: , , Performed By: #### 2 4323-8 ####[facility] LABIA [id number] [address] [address] [place] [facility] CO2 [Moles/Vol] 21 mmol/L Low 22-30 [facility] Comment on above: Order Comment: Speci men Type: BLOOD SPECIMENOrdering Facility: External Submitter Address: , , Performed By: #### 2 4323-8 ####[facility] LABIA [id number] [address] [address] [place] [facility] Creatinine [Mass/Vol] 0.81 mg/dL Normal 0.73-1.22 [facility] Comment on above: Order Comment: Isadorai men Type: BLOOD SPECIMENOrdering Facility: External Submitter Address: , , Performed By: #### 2 4323-8 ####[facility] LABIA [id number] [address] [address] [facility] Creatinine and Glomerular filtration rate.predicted panel (S/P/Bld) 94 mL/min/1.73m??? Normal >=60 [facility] Comment on above: Order Comment: Isadorai jignesh Type: BLOOD SPECIMENOrdering Facility: External Submitter Address: , , Result Comment: Tamika mated Glomerular Filtration Rate (eGFR) is calculated using the 2020 CKD-EPI creatinine equation. This equation utilizes serum creatinine, sex, and age as parameters. The creatinine assay has traceable calibration to isotope dilution-mass spectrometry. Refer to KDIGO guidelines for clinical interpretation. In patients with unstable renal function, e.g. those with acute kidney injury, the eGFR may not accurately reflect actual GFR. Performed By: #### 2 4323-8 ####[facility] LABCLIA [id number] [address] [address] [place] Glucose [Mass/Vol] 99 mg/dL Normal 74-99 [facility] Comment on above: Order Comment: Speci men Type: BLOOD SPECIMENOrdering Facility: External Submitter Address: , , Result Comment: The [place] Diabetes Association (ADA) provides guidance for cutoff values for fasting glucose and random glucose. The ADA defines fasting as no caloric intake for at least 8 hours. Fasting plasma glucose results between 100 to 125 mg/dL indicate increased risk for diabetes (prediabetes).Fasting plasma glucose results greater than or equal to 126 mg/dL meet the criteria for diagnosis of diabetes. In the absence of unequivocal hyperglycemia, results should be confirmed by repeat testing. In a patient with classic symptoms of hyperglycemia or hyperglycemic crisis, random plasma glucose results greater than or equal to 200 mg/dL meet the criteria for diagnosis of diabetes.Reference: Standards of Medical Care in Diabetes 2016, [place] Diabetes Association. Diabetes Care. 2016.39(Suppl 1). Performed By: #### 2 4323-8 ####[facility] LABCLIA [id number] [address] [address] [place] Potassium [Moles/Vol] 4.8 mmol/L Normal 3.7-5.1 [facility] Comment on above: Order Comment: Isadorai jignesh Type: BLOOD SPECIMENOrdering Facility: External Submitter Address: , , Performed By: #### 2 4323-8 ####[facility] LABCLIA [id number] [address] [place] [address] [place] Protein [Mass/Vol] 6.0 g/dL Low 6.3-8.0 [facility] Comment on above: Order Comment: Elgin egan Type: BLOOD SPECIMENOrdering Facility: External Submitter Address: , , Performed By: #### 2 4323-8 ####[facility] LABCLIA [id number] [address] [address] [place] Sodium [Moles/Vol] 124 mmol/L Low 136-144 [facility] Comment on above: Order Comment: Elgin egan Type: BLOOD SPECIMENOrdering Facility: External Submitter Address: , , Performed By: #### 2 4323-8 ####[facility] LABCLIA [id number] [address] [place] [facility] Urea nitrogen [Mass/Vol] 8 mg/dL Low 9-24 [facility] Comment on above: Order Comment: Elgin egan Type: BLOOD SPECIMENOrdering Facility: External Submitter Address: , , Performed By: #### 2 4323-8 ####[facility] LABIA [id number] [address] [place] TPMT GENOTYPEon 09-24-2024 TPMT PREDICTED PHENOTYPE TPMT Genotyping Normal [facility] Comment on above: Order Comment: Elgin egan Type: BLOOD SPECIMENOrdering Facility: [facility] Address: [address] [place] [address] Result Comment: Laboratory Accession Number: [id number] Result: TPMT Genotype: *1/*1 TPMT Predicted Phenotype: TPMT Normal Metabolizer Interpretation: Two "normal function" alleles have been identified in this sample (see variant details below). This is associated with a TPMT normal metabolizer phenotype. TPMT normal metabolizers are expected to tolerate normal starting doses of medications metabolized by the TPMT enzyme. Please consult a clinical pharmacist for more information regarding drug therapy. Questions regarding molecular testing details should be directed to . The TPMT gene encodes thiopurine S-methyltransferase (TPMT). This enzyme is involved in the metabolism of thiopurine drugs. For clinical correlation, drug-specific guidelines are available to provide phenotype assignment and therapeutic recommendations based on phenotype. Patients who carry genetic variants associated with altered metabolism may be at risk for an adverse or poor response to drugs that are predominantly metabolized by TPMT. For patients with altered TPMT activity, alternative pharmacological agents or dosing adjustments may be needed for medications metabolized by this enzyme to avoid an unexpected or adverse response. Variant Details (if any): NA Limitations: DNA studies do not provide a definitive genetic or pharmacogenomic risk in all individuals. This test is designed to detect a specific set of variants (see list below) in the TPMT gene (OMIM 209686). This test does not detect all sequence variants in TPMT. Uncommon variants or single nucleotide polymorphisms may affect binding of primers and probes and may result in false negative, false positive or indeterminate results. This test cannot distinguish between the more common *1/*3A genotype (Intermediate Metabolizer) and the rare *3B/*3C genotype (Poor Metabolizer). A TPMT enzyme activity assay may be an option to help distinguish these possibilities. The absence of abnormal variants as analyzed in this test is interpreted as the presence of *1/*1 (wild type/normal) genotype. The phenotype as provided in the interpretation may be impacted by undetected genetic factors. The clinical TPMT phenotype may be impacted by non-genetic factors such as drug-drug interactions. Methodology: Purified genomic DNA was subjected to polymerase chain reaction-based amplification. The TPMT gene (NM_000367.5) is interrogated for known, clinically relevant variants. Primer extension products were analyzed using matrix-assisted laser desorption/ionization mass spectrometry, and specific genotypes assigned were then translated to the appropriate star ( * ) allele (see list below). The reference genome used is GRCh38/hg38. TPMT star alleles: *1, *2, *3A, *3B, *3C, *4, *8, and *24. These alleles are detected using the presence, absence, or combination of the following variants, RefSNP ID: [id number], [id number], [id number], [id number], [id number], and [id number]. References: 1) Jerri CM, Belen IBARRA, Vanna RIVERA. Thiopurine methyltransferase (TPMT) genotyping to predict myelosuppression risk. Plos Curr. 2011;6WRE5709. PMC ID: [id number]. 2) Marilu RIOS, Bandar Che, et al. Clinical Pharmacogenetics Implementation Consortium Guideline for Thiopurine Dosing Based on TPMT and NUDT15 Genotypes: 2018 Update. Clinical Pharmacology & Therapeutics (2019) 105(5): 1901-3794. 3) Bandar Trujillo, Raul HANDY, Armando JAUREGUI, et al. Pharmacogenomics Knowledge for Personalized Medicine. Clinical Pharmacology & Therapeutics (2012) 92(4): 414-417. 4) Clinical Pharmacogenetics Implementation Consortium (CPIC): www.CPIPpgx.org Disclaimer: This test was developed and its performance characteristics determined by [facility]'s Pathology and Laboratory Medicine Department. It has not been cleared or approved by the FDA. [facility]'s Pathology and Laboratory Medicine Department is regulated under CLIA as certified to perform high-complexity testing. This test is used for clinical purposes. It should not be regarded as investigational or for research. Test performed at [facility], [address] [place] [address]. CLIA Number: [id number] Interpretation performed by Susi Donahue MD, PhD Performed By: #### T PMTG ####[facility] LIMSCLIA [id number] [address] [place] Urinalysis complete panel (U )on 09-24-2024 Bacteria LM.HPF (Urine sed) [#/Area] Rare Abnormal None Seen [facility] Comment on above: Order Comment: Speci men Type: URINE SPECIMENOrdering Facility: [facility] Address: [address] [place] [address] Performed By: #### 2 4356-8 ####[facility] LABCLIA [id number] [place] [id number] [place] Bilirubin Ql (U) Negative Normal Negative [facility] Comment on above: Order Comment: Speci men Type: URINE SPECIMENOrdering Facility: [facility] Address: [facility] [place] [address] Performed By: #### 2 4356-8 ####[facility] LABCLIA [id number] [place] [address] [place] Clarity (Unsp spec) Clear Normal Clear [facility] Comment on above: Order Comment: Speci men Type: URINE SPECIMENOrdering Facility: [facility] Address: [address] [place] [address] Performed By: #### 2 4356-8 ####[facility] LABCLIA [id number] [facility] [place] [address] [facility] [place] Color (U) Yellow Normal Yellow [facility] Comment on above: Order Comment: Speci men Type: URINE SPECIMENOrdering Facility: [facility] Address: [address] [place] [address] Performed By: #### 2 4356-8 ####[facility] LABCLIA [id number] [facility] [place] [address] [facility] Glucose Test strip (U) [Mass/Vol] Negative Normal Negative [facility] Comment on above: Order Comment: Speci men Type: URINE SPECIMENOrdering Facility: [facility] Address: [address] [place] [address] Performed By: #### 2 4356-8 ####[facility] LABCLIA [id number] [place] [address] [facility] Hemoglobin Ql (U) 1+ Abnormal Negative [facility] Comment on above: Order Comment: Speci men Type: URINE SPECIMENOrdering Facility: [facility] Address: [address] [place] [address] Performed By: #### 2 4356-8 ####[facility] LABCLIA [id number] [place] [address] [facility] Ketones Ql (U) Negative Normal Negative [facility] Comment on above: Order Comment: Speci men Type: URINE SPECIMENOrdering Facility: [facility] Address: [address] [place] [address] Performed By: #### 2 4356-8 ####[facility] LABCLIA [id number] [facility] [place] [address] [facility] [place] Leukocyte esterase Test strip Ql (U) Negative Normal Negative [facility] Comment on above: Order Comment: Speci men Type: URINE SPECIMENOrdering Facility: [facility] Address: [address] [place] [address] Performed By: #### 2 4356-8 ####[facility] LABCLIA [id number] [place] [address] [place] Nitrite Ql (U) Negative Normal Negative [facility] Comment on above: Order Comment: Speci men Type: URINE SPECIMENOrdering Facility: [facility] Address: [address] [place] [address] Performed By: #### 2 4356-8 ####[facility] LABCLIA [id number] [place] [address] [place] pH (U) 6.0 [pH] Normal 5.0-8.0 [facility] Comment on above: Order Comment: Speci men Type: URINE SPECIMENOrdering Facility: [facility] Address: [address] [place] [address] Performed By: #### 2 4356-8 ####[facility] LABCLIA [id number] [place] [address] [place] Protein (U) [Mass/Vol] Negative Normal Negative [facility] Comment on above: Order Comment: Speci men Type: URINE SPECIMENOrdering Facility: [facility] Address: [address] [place] [address] Performed By: #### 2 4356-8 ####[facility] LABCLIA [id number] [place] [address] [place] RBC LM.HPF (Urine sed) [#/Area] 11-25 /HPF Abnormal 0-3 /HPF [facility] Comment on above: Order Comment: Speci men Type: URINE SPECIMENOrdering Facility: [facility] Address: [address] [place] [address] Performed By: #### 2 4356-8 ####[facility] LABCLIA [id number] [place] [address] [facility] [place] Specific gravity (U) [Rel density] 1.010 Normal 1.005-1.030 [facility] Comment on above: Order Comment: Speci men Type: URINE SPECIMENOrdering Facility: [facility] Address: [address] [place] [address] Performed By: #### 2 4356-8 ####[facility] LABCLIA [id number] [place] [address] [facility] Urobilinogen Ql (U) 0.2 EU/dL Normal 0.2-1.0 EU/dL [facility] Comment on above: Order Comment: Speci men Type: URINE SPECIMENOrdering Facility: [facility] Address: [address] [place] [address] Performed By: #### 2 4356-8 ####[facility] LABCLIA [id number] [place] [id number] [facility] WBC LM.HPF (Urine sed) [#/Area] 0-5 /HPF Normal 0-5 /HPF [facility] Comment on above: Order Comment: Speci men Type: URINE SPECIMENOrdering Facility: [facility] Address: [address] [place] [address] Performed By: #### 2 4356-8 ####[facility] LABCLIA [id number] [place] [id number] [facility] CNOVon 09-23-2024 CNOV Office Visit (AGHWW1 ) ----- MARS PETERSON ([id number]) 1955 M DEF Date Time Provider Department 09/23/24 2:30 PM [facility] During your visit today, we recorded the following information about you: Respiration Weight Height 20/minute 123.8 kg 1.829 m Sandra Hummel MD 10/06/2024 7:37 AM Signed Patient presents with: Right Hand - New, Pain, Swelling HISTORY OF PRESENT ILLNESS Mars Peterson is a 69 year old male right hand dominant who presents for evaluation of right hand boxer fracture. The patient sustained his injury after a fall. He has not been in significant pain, but mentions that when he tries to move his hand it can be painful. Location: Right hand Severity: 6 on a scale of 0-10 Duration of symptoms: 4 days Date of injury 09/19/24 Symptoms have Worsened Previous treatment: None Prior Treatment: Closed Reduction:No Splint: No Context worse with Activity/Motion Occupation: Retired Smoking status: Tobacco Use: Types: Cigarettes, Chew REVIEW OF SYSTEMS Cardiovascular ROS:No history of chest pain, palpitation, orthopnea, cyanosis, pedal edema Neurologic ROS: Numbness and Tingling:No PAST MEDICAL HISTORY Past medical, surgical, family, and social histories have been reviewed and updated with the patient today and are located elsewhere in the medical record. Diabetes:No ALLERGIES ALLERGIES Allergen Reactions Animal Dander Other: See Comments Anything with fur Seasonal Allergies Other: See Comments Stuffy nose, headaches PHYSICAL EXAMINATION Resp 20 Ht 182.9 cm (6') Wt 123.8 kg (273 lb) BMI 37.03 kg/m? Body mass index is 37.03 kg/m?. General Appearance Well appearing, alert, in no acute distress, well-hydrated, well nourished. Alert and oriented times: 3 Normal affect times: 3 Appears stated age and well nourished Gait and station:normal Right Upper Extremity Exam: Examined without splint Skin: WNL Median Nerve paresthesias: No Brisk capillary refill intact Sensation intact median, radial, ulnar nerve distribution Tenderness to palpation: Yes ROM: Motion slightly impaired due to pain. No evidence of malrotation Instability: none REVIEW OF STUDIES X-rays 09/21/24 3 views of the right hand: Fifth metacarpal neck fracture, mildly impacted with mild shortening and minimal displacement and volar angulation. There is slight comminution with a small fragment along the radial margin. Soft tissue swelling. 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 ASSESSMENT/PLAN: 1. Closed boxer's fracture, initial encounter - ICD9: 815.00, ICD10: S62.339A - APPLY HAND/WRIST CAST I reviewed the imaging with the patient and discussed the diagnosis at length with he and his family member. We reviewed treatment options including operative and nonoperative measures. I recommended nonoperative treatment with immobilization and a short arm ulnar gutter cast was applied here today. We will plan on following up in just over 3 weeks for cast removal, repeat imaging. At that time point I anticipate transitioning to a removable brace. All of his questions were answered to his satisfaction. Sandra Hummel MD Patient educated on cast care and maintenance. Patient instructed to call the office with questions or concerns. Scribe Attestation: By signing my name below, I,Palmira Vasquez, attest that this documentation has been prepared under the direction and in the presence of Dr. Sandra Hummel MD. Electronically Signed: Breezy Anguiano. September 23, 2024 2:36 PM. Provider Attestation: I, Dr. Sandra Hummel MD, personally performed the services described in this documentation. All medical record entries made by the scribe were at my direction and in my presence. I have reviewed the chart and discharge instructions (if applicable) and agree that the record reflects my personal performance and is accurate and complete. Electronically Signed: Dr. Sandra Hummel MD, September 23, 2024 Allergies As of Date: 09/23/2024 Noted Allergy Reaction ANIMAL DANDER 08/21/2022 14 - Other: See Comments Comments: Anything with fur SEASONAL ALLERGIES 08/21/2022 14 - Other: See Comments Comments: Stuffy nose, headaches Date Reviewed: 09/23/2024 Reviewed by: Sarai Balbuena LPN - Fully Assessed Reason for Visit: New [948467] Pain [78] Swelling [205] Primary Visit Diagnosis:Closed boxer's fracture, initial encounter [S62.339A] Order(s):APPLY HAND/WRIST CAST [32020YTT] Order #: [id number] Prescriptions as of 10/06/2024 - azaTHIOprine (IMURAN) 50 mg tablet Take 1 tablet by mouth once daily for 14 days, THEN 2 tablets once daily for 14 days, THEN 3 tablets once daily for 14 days, THEN 4 tablets once daily for 14 days. - acyclovir (ZOVIRAX) 400 mg tablet Take 1 tablet by mouth once daily. - Blood-Gluc (more content not included)... Normal [facility] CNPDanitza 09-22-2024 [facility] Telephone (MUKESH) ----- MARS PETERSON ([id number]) 1955 M DEF Date Time Provider Department 09/22/24 [place] During your visit today, we recorded the following information about you: Priya Pedersen MA 09/22/2024 7:29 AM Signed Form received from [facility] order: [id number] VANNA Rojas Julie, [place] 09/28/2024 10:03 AM Signed Faxed Priya Pedersen MA Allergies As of Date: 09/22/2024 Noted Allergy Reaction ANIMAL DANDER 08/21/2022 14 - Other: See Comments Comments: Anything with fur SEASONAL ALLERGIES 08/21/2022 14 - Other: See Comments Comments: Stuffy nose, headaches Date Reviewed: 09/21/2024 Reviewed by: Abbie Mason LPN - Fully Assessed Reason for Visit: Electronic Communication [890] Forms [913] Prescriptions as of 09/28/2024 - mycophenolate Mofetil (CELLCEPT) 500 mg tablet Take 3 tablets by mouth two times a day. - acyclovir (ZOVIRAX) 400 mg tablet Take 1 tablet by mouth once daily. - Blood-Glucose Sensor (FREESTYLE ROSA 3 PLUS SENSOR) chata 1 device every 2 weeks. - predniSONE (DELTASONE) 10 mg tablet TAKE 2 TABLETS BY MOUTH ONCE DAILY FOR 21 DAYS, THEN 1.5 TABLETS ONCE DAILY FOR 21 DAYS, THEN 1 TABLET ONCE DAILY FOR 21 DAYS, THEN 0.5 TABLETS ONCE DAILY FOR 21 DAYS. - isosorbide mononitrate ER (IMDUR) 30 mg 24 hr tablet Take 1 tablet by mouth once daily. - gabapentin (NEURONTIN) 300 mg capsule TAKE 2 CAPSULES BY MOUTH EVERY MORNING AND 3 CAPSULES AT BEDTIME FOR 30 DAYS. Strength: 300 mg - hydrOXYzine HCl (ATARAX) 25 mg tablet Take 2 tablets by mouth two times a day. - budesonide (PULMICORT) 0.5 mg/2 mL nebulizer solution Use 2 mL via nebulizer two times a day. - ipratropium-albuterol (DUONEB) 0.5 mg-3 mg(2.5 mg base)/3 mL nebu Inhale 3 mL as instructed every 4 hours while awake. - metoprolol succinate ER (TOPROL XL) 25 mg 24 hr tablet Take 1 tablet by mouth every afternoon. - clopidogrel (PLAVIX) 75 mg tablet Take 1 tablet by mouth once daily. - pantoprazole DR (PROTONIX) 40 mg tablet Take 1 tablet by mouth once daily. - rosuvastatin (CRESTOR) 20 mg tablet Take 1 tablet by mouth daily at bedtime. - lisinopril 2.5 mg tablet Take 1 tablet by mouth two times a day. Hold if SBP less than 110 - ezetimibe (ZETIA) 10 mg tablet Take 1 tablet by mouth once daily. - guaiFENesin (MUCINEX) 600 mg 12 hr tablet Take 1 tablet by mouth two times a day as needed for cold/allergy symptoms. - traZODone (DESYREL) 100 mg tablet TAKE 2 TABLETS BY MOUTH DAILY AT BEDTIME - furosemide (LASIX) 40 mg tablet Take 1 tablet by mouth three times a week. - escitalopram oxalate (LEXAPRO) 20 mg tablet Take 1 tablet by mouth once daily. - colestipol (COLESTID) 1 gram tablet Take 1 tablet by mouth two times a day. - OXYGEN, HOME THERAPY, 3 L/min by Nasal Cannula route as directed. - fluticasone (FLONASE) 50 mcg/actuation nasal spray spray 1 spray into each nostril every day - nitroglycerin sublingual (NITROSTAT) 0.4 mg SL tablet Dissolve 1 tablet under the tongue every 5 minutes as needed for chest pain. - albuterol sulfate 90 mcg/actuation aebs Inhale 1-2 Puffs as instructed every 4 hours as needed for wheezing/shortness of breath. - Lactobacillus acidophilus (PROBIOTIC) 10 billion cell cap Take 1 capsule by mouth once daily. - acetaminophen (TYLENOL EXTRA STRENGTH) 500 mg tablet Take 2 tablets by mouth every 8 hours as needed for pain. FOR PAIN. - Zinc 50 mg tab Take 50 mg by mouth once daily. - aspirin, enteric coated (ASPIRIN, ENTERIC COATED) 81 mg EC tablet Take 81 mg by mouth once daily. - multivit-min/folic/vit K/lycop (ONE-A-DAY MEN'S MULTIVITAMIN ORAL) Take by mouth once daily. 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 Normal [facility] CBC W Auto Differential pane l (Bld)on 09-21-2024 Basophils (Bld) [#/Vol] 10*3/uL Normal <0.11 [facility] Comment on above: Order Comment: Speci men Type: BLOOD SPECIMENOrdering Facility: [facility] Address: [address] [place] [address] Performed By: #### 5 7021-8 ####[facility] [place] LABCLIA [id number] [place] [address] [place] Basophils/100 WBC (Bld) 0.1 % Normal [facility] Comment on above: Order Comment: Speci men Type: BLOOD SPECIMENOrdering Facility: [facility] Address: [address] [place] [address] Performed By: #### 5 7021-8 ####[facility] [place] LABCLIA [id number] [place] [address] [facility] Differential cell count method Nom (Bld) Auto Normal [facility] Comment on above: Order Comment: Speci men Type: BLOOD SPECIMENOrdering Facility: [facility] Address: [address] [place] [address] Performed By: #### 5 7021-8 ####[facility] [place] LABCLIA [id number] [place] [address] [place] Eosinophils (Bld) [#/Vol] 0.11 10*3/uL Normal <0.46 [facility] Comment on above: Order Comment: Speci men Type: BLOOD SPECIMENOrdering Facility: [facility] Address: [address] [place] [address] Performed By: #### 5 7021-8 ####[facility] [place] LABCLIA [id number] [place] [address] [place] Eosinophils/100 WBC (Bld) 1.3 % Normal [facility] Comment on above: Order Comment: Speci men Type: BLOOD SPECIMENOrdering Facility: [facility] Address: [address] [place] [address] Performed By: #### 5 7021-8 ####[facility] [place] LABCLIA [id number] [place] [address] [place] Erythrocyte distribution width (RBC) [Ratio] 14.0 % Normal 11.5-15.0 [facility] Comment on above: Order Comment: Speci men Type: BLOOD SPECIMENOrdering Facility: [facility] Address: [address] [place] [address] Performed By: #### 5 7021-8 ####[facility] [place] LABCLIA [id number] [place] [facility] [place] [address] [place] Hematocrit (Bld) [Volume fraction] 41.8 % Normal 39.0-51.0 [facility] Comment on above: Order Comment: Speci men Type: BLOOD SPECIMENOrdering Facility: [facility] Address: [address] [place] [address] Performed By: #### 5 7021-8 ####[facility] [place] LABCLIA [id number] [facility] [place] [place] [address] [place] Hemoglobin (Bld) [Mass/Vol] 13.2 g/dL Normal 13.0-17.0 [facility] Comment on above: Order Comment: Speci men Type: BLOOD SPECIMENOrdering Facility: [facility] Address: [address] [place] [address] Performed By: #### 5 7021-8 ####[facility] [place] LABCLIA [id number] [facility] [place] [address] [place] Immature granulocytes (Bld) [#/Vol] 0.05 10*3/uL Normal <0.10 [facility] Comment on above: Order Comment: Speci men Type: BLOOD SPECIMENOrdering Facility: [facility] Address: [address] [place] [address] Performed By: #### 5 7021-8 ####[facility] [place] LABCLIA [id number] [place] [address] [place] Immature granulocytes/100 WBC (Bld) 0.6 % Normal [facility] Comment on above: Order Comment: Speci men Type: BLOOD SPECIMENOrdering Facility: [facility] Address: [address] [place] [address] Performed By: #### 5 7021-8 ####[facility] [place] LABCLIA [id number] [place] [address] [place] Lymphocytes (Bld) [#/Vol] 2.17 10*3/uL Normal 1.00-4.00 [facility] Comment on above: Order Comment: Speci men Type: BLOOD SPECIMENOrdering Facility: [facility] Address: [address] [place] [address] Performed By: #### 5 7021-8 ####[facility] LAB[facility] [id number] [place] [address] [facility] Lymphocytes/100 WBC (Bld) 25.9 % Normal [facility] Comment on above: Order Comment: Speci men Type: BLOOD SPECIMENOrdering Facility: [facility] Address: [address] [place] [address] Performed By: #### 5 7021-8 ####[facility] LABCLIA [id number] [place] [address] [place] MCH (RBC) [Entitic mass] 28.4 pg Normal 26.0-34.0 [facility] Comment on above: Order Comment: Speci men Type: BLOOD SPECIMENOrdering Facility: [facility] Address: [address] [place] [address] Performed By: #### 5 7021-8 ####[facility] LABCLIA [id number] [place] [address] [place] MCHC (RBC) [Mass/Vol] 31.6 g/dL Normal 30.5-36.0 [facility] Comment on above: Order Comment: Speci men Type: BLOOD SPECIMENOrdering Facility: [facility] Address: [address] [place] [address] Performed By: #### 5 7021-8 ####[facility] LABCLIA [id number] [place] [address] [place] MCV (RBC) [Entitic vol] 90.1 fL Normal 80.0-100.0 [facility] Comment on above: Order Comment: Speci men Type: BLOOD SPECIMENOrdering Facility: [facility] Address: [address] [place] [address] Performed By: #### 5 7021-8 ####[facility] [place] LABCLIA [id number] [place] [address] [place] Monocytes (Bld) [#/Vol] 0.87 10*3/uL High <0.87 [facility] Comment on above: Order Comment: Speci men Type: BLOOD SPECIMENOrdering Facility: [facility] Address: [address] [place] [address] Performed By: #### 5 7021-8 ####[facility] [place] LABCLIA [id number] [facility] [place] [place] [address] [place] Monocytes/100 WBC (Bld) 10.4 % Normal [facility] Comment on above: Order Comment: Speci men Type: BLOOD SPECIMENOrdering Facility: [facility] Address: [address] [place] [address] Performed By: #### 5 7021-8 ####[facility] [place] LABCLIA [id number] [place] [place] [address] [place] Neutrophils (Bld) [#/Vol] 5.17 10*3/uL Normal 1.45-7.50 [facility] Comment on above: Order Comment: Speci men Type: BLOOD SPECIMENOrdering Facility: [facility] Address: [address] [place] [address] Performed By: #### 5 7021-8 ####[facility] [place] LABCLIA [id number] [place] [place] [address] [place] Neutrophils/100 WBC (Bld) 61.7 % Normal [facility] Comment on above: Order Comment: Speci men Type: BLOOD SPECIMENOrdering Facility: [facility] Address: [address] [place] [address] Performed By: #### 5 7021-8 ####[facility] [place] LABCLIA [id number] [place] [place] [address] [place] Nucleated RBC (Bld) [#/Vol] Normal [facility] Comment on above: Order Comment: Speci men Type: BLOOD SPECIMENOrdering Facility: [facility] Address: [address] [place] [address] Performed By: #### 5 7021-8 ####[facility] [place] LABCLIA [id number] [facility] [place] [place] [address] [place] Nucleated RBC/100 WBC (Bld) [Ratio] Normal [facility] Comment on above: Order Comment: Speci men Type: BLOOD SPECIMENOrdering Facility: [facility] Address: [address] [place] [address] Performed By: #### 5 7021-8 ####[facility] LABCLIA [id number] [place] [address] [place] Platelet mean volume (Bld) [Entitic vol] 8.6 fL Low 9.0-12.7 [facility] Comment on above: Order Comment: Speci men Type: BLOOD SPECIMENOrdering Facility: [facility] Address: [address] [place] [address] Performed By: #### 5 7021-8 ####[facility] LABCLIA [id number] [place] [address] [place] Platelets (Bld) [#/Vol] 191 10*3/uL Normal 150-400 [facility] Comment on above: Order Comment: Speci men Type: BLOOD SPECIMENOrdering Facility: [facility] Address: [address] [place] [address] Performed By: #### 5 7021-8 ####[facility] [place] LABCLIA [id number] [facility] [place] [place] [address] [place] RBC (Bld) [#/Vol] 4.64 10*6/uL Normal 4.20-6.00 [facility] Comment on above: Order Comment: Speci men Type: BLOOD SPECIMENOrdering Facility: [facility] Address: [address] [place], [place] [address] Performed By: #### 5 7021-8 ####[facility] [place] LABCLIA [id number] [place] [address] [place] WBC (Bld) [#/Vol] 8.38 10*3/uL Normal 3.70-11.00 [facility] Comment on above: Order Comment: Speci men Type: BLOOD SPECIMENOrdering Facility: [facility] Address: [address] [place] [address] Performed By: #### 5 7021-8 ####[facility] [place] LABCLIA [id number] [place] [address] [place] CNOVon 09-21-2024 CNOV Normal [facility] metabolic 2000 panelon 09-21-2024 Albumin [Mass/Vol] 3.8 g/dL Low 3.9-4.9 [facility] Comment on above: Order Comment: Speci men Type: BLOOD SPECIMENOrdering Facility: [facility] Address: [address] [place] [address] Performed By: #### 2 4323-8 ####[facility] LABCLIA [id number] [place], [place] [id number] [place] [address] [place] ALP [Catalytic activity/Vol] 37 U/L Low 38-113 [facility] Comment on above: Order Comment: Speci men Type: BLOOD SPECIMENOrdering Facility: [facility] Address: [address] [place] [address] Performed By: #### 2 4323-8 ####[facility] [place] LABCLIA [id number] [place] [address] [facility] [place] ALT With P-5'-P [Catalytic activity/Vol] 17 U/L Normal 10-54 [facility] Comment on above: Order Comment: Speci men Type: BLOOD SPECIMENOrdering Facility: [facility] Address: [address] [place] [address] Performed By: #### 2 4323-8 ####[facility] [place] LABCLIA [id number] [place] [address] [place] Anion gap [Moles/Vol] 11 mmol/L Normal 8-15 [facility] Comment on above: Order Comment: Speci men Type: BLOOD SPECIMENOrdering Facility: [facility] Address: [address] [place] [address] Performed By: #### 2 4323-8 ####[facility] [place] LABCLIA [id number] [facility] [place] [place] [address] [place] AST With P-5'-P [Catalytic activity/Vol] 19 U/L Normal 14-40 [facility] Comment on above: Order Comment: Speci men Type: BLOOD SPECIMENOrdering Facility: [facility] Address: [address] [place] [address] Performed By: #### 2 4323-8 ####[facility] [place] LABCLIA [id number] [place] [address] [place] Bilirubin [Mass/Vol] 0.3 mg/dL Normal 0.2-1.3 [facility] Comment on above: Order Comment: Speci men Type: BLOOD SPECIMENOrdering Facility: [facility] Address: [address] [place] [address] Performed By: #### 2 4323-8 ####[facility] [place] LABCLIA [id number] [place] [address] [place] Calcium [Mass/Vol] 9.3 mg/dL Normal 8.5-10.2 [facility] Comment on above: Order Comment: Speci men Type: BLOOD SPECIMENOrdering Facility: [facility] Address: [address] [place] [address] Performed By: #### 2 4323-8 ####[facility] [place] LABCLIA [id number] [facility] [place] [place] [address] [place] Chloride [Moles/Vol] 87 mmol/L Low 98-107 [facility] Comment on above: Order Comment: Speci men Type: BLOOD SPECIMENOrdering Facility: [facility] Address: [address] [place] [address] Performed By: #### 2 4323-8 ####[facility] [place] LABCLIA [id number] [place] [address] [place] CO2 [Moles/Vol] 27 mmol/L Normal 22-30 [facility] Comment on above: Order Comment: Speci men Type: BLOOD SPECIMENOrdering Facility: [facility] Address: [address] [place] [address] Performed By: #### 2 4323-8 ####[facility] LAB[facility] [id number] [place] [address] [place] Creatinine [Mass/Vol] 0.91 mg/dL Normal 0.73-1.22 [facility] Comment on above: Order Comment: Speci men Type: BLOOD SPECIMENOrdering Facility: [facility] Address: [address] [place] [address] Performed By: #### 2 4323-8 ####[facility] LABCLIA [id number] [place] [address] [facility] Creatinine and Glomerular filtration rate.predicted panel (S/P/Bld) 90 mL/min/1.73m??? Normal >=60 [facility] Comment on above: Order Comment: Speci men Type: BLOOD SPECIMENOrdering Facility: [facility] Address: [address] [place] [address] Result Comment: Tamika mated Glomerular Filtration Rate (eGFR) is calculated using the 2020 CKD-EPI creatinine equation. This equation utilizes serum creatinine, sex, and age as parameters. The creatinine assay has traceable calibration to isotope dilution-mass spectrometry. Refer to KDIGO guidelines for clinical interpretation. In patients with unstable renal function, e.g. those with acute kidney injury, the eGFR may not accurately reflect actual GFR. Performed By: #### 2 4323-8 ####[facility] [place] LABCLIA [id number] [place] [address] [place] Glucose [Mass/Vol] 81 mg/dL Normal 74-99 [facility] Comment on above: Order Comment: Speci men Type: BLOOD SPECIMENOrdering Facility: [facility] Address: [address] [place] [address] Result Comment: The [place] Diabetes Association (ADA) provides guidance for cutoff values for fasting glucose and random glucose. The ADA defines fasting as no caloric intake for at least 8 hours. Fasting plasma glucose results between 100 to 125 mg/dL indicate increased risk for diabetes (prediabetes). Fasting plasma glucose results greater than or equal to 126 mg/dL meet the criteria for diagnosis of diabetes. In the absence of unequivocal hyperglycemia, results should be confirmed by repeat testing. In a patient with classic symptoms of hyperglycemia or hyperglycemic crisis, random plasma glucose results greater than or equal to 200 mg/dL meet the criteria for diagnosis of diabetes. Reference: Standards of Medical Care in Diabetes 2016, [place] Diabetes Association. Diabetes Care. 2016.39(Suppl 1). Performed By: #### 2 4323-8 ####[facility] [employer] LABCLIA [id number] [place] [address] [place] Potassium [Moles/Vol] 4.1 mmol/L Normal 3.7-5.1 [facility] Comment on above: Order Comment: Speci men Type: BLOOD SPECIMENOrdering Facility: [facility] Address: [address] [place] [address] Performed By: #### 2 4323-8 ####[facility] [employer] LABCLIA [id number] [place] [address] [place] Protein [Mass/Vol] 6.7 g/dL Normal 6.3-8.0 [facility] Comment on above: Order Comment: Speci men Type: BLOOD SPECIMENOrdering Facility: [facility] Address: [address] [place] [address] Performed By: #### 2 4323-8 ####[facility] [place] LABCLIA [id number] [place] [address] [place] Sodium [Moles/Vol] 125 mmol/L Low 136-144 [facility] Comment on above: Order Comment: Speci men Type: BLOOD SPECIMENOrdering Facility: [facility] Address: [address] [place] [address] Performed By: #### 2 4323-8 ####[facility] [place] LABCLIA [id number] [place] [address] [facility] Urea nitrogen [Mass/Vol] 9 mg/dL Normal 9-24 [facility] Comment on above: Order Comment: Speci men Type: BLOOD SPECIMENOrdering Facility: [facility] Address: [address] [place], [place] [address] [id number] Performed By: #### 2 4323-8 ####[facility] [place] LABCLIA [id number] [place] [address] [place] XR HAND 3V PA/LAT/OBL RTon 0 09-21-2024 XR HAND 3V PA/LAT/OBL RT * * *Final Report* * * DATE OF EXAM: Sep 21 2024 12:42PM LDX 5346 - XR HAND 3V PA/LAT/OBL RT / PROCEDURE REASON: multiple diagnoses * * * * Physician Interpretation * * * * EXAMINATION / TECHNIQUE: XR HAND 3V PA/LAT/OBL RT PATIENT/TECHNOLOGIST PROVIDED HISTORY: Fall, right hand bruised/swollen CLINICAL INFORMATION ( PROVIDED BY ORDERING CLINICIAN) : Hand injury, right, initial encounter Swelling of right hand COMPARISON: RESULT: Fifth metacarpal neck fracture, mildly impacted with mild shortening and minimal displacement and volar angulation. There is slight comminution with a small fragment along the radial margin. Soft tissue swelling. 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 CNPDanitza 09-18-2024 [facility] (AGSnap FitnessLE) ----- PETERSONMARS ([id number]) 1955 M DEF Date Time Provider Department 09/18/24 WICHO ALMAMASSIEL MAYORGA During your visit today, we recorded the following information about you: Priya Pedersen MA 09/18/2024 8:17 AM Signed Form received from [facility] placed on signing tray VANNA Rojas Julie, MA 09/21/2024 11:19 AM Signed Signed and faxed Priya Pedersen MA Allergies As of Date: 09/18/2024 Noted Allergy Reaction ANIMAL DANDER 08/21/2022 14 - Other: See Comments Comments: Anything with fur SEASONAL ALLERGIES 08/21/2022 14 - Other: See Comments Comments: Stuffy nose, headaches Date Reviewed: 08/28/2024 Reviewed by: Alicia Garibay MA - Fully Assessed Reason for Visit: Electronic Communication [890] Forms [913] Prescriptions as of 09/21/2024 - mycophenolate Mofetil (CELLCEPT) 500 mg tablet Take 3 tablets by mouth two times a day. - acyclovir (ZOVIRAX) 400 mg tablet Take 1 tablet by mouth once daily. - acyclovir (ZOVIRAX) 800 mg tablet Take 1 tablet by mouth five times a day for 7 days. - Blood-Glucose Sensor (FREESTYLE ROSA 3 PLUS SENSOR) chata 1 device every 2 weeks. - predniSONE (DELTASONE) 10 mg tablet TAKE 2 TABLETS BY MOUTH ONCE DAILY FOR 21 DAYS, THEN 1.5 TABLETS ONCE DAILY FOR 21 DAYS, THEN 1 TABLET ONCE DAILY FOR 21 DAYS, THEN 0.5 TABLETS ONCE DAILY FOR 21 DAYS. - isosorbide mononitrate ER (IMDUR) 30 mg 24 hr tablet Take 1 tablet by mouth once daily. - gabapentin (NEURONTIN) 300 mg capsule TAKE 2 CAPSULES BY MOUTH EVERY MORNING AND 3 CAPSULES AT BEDTIME FOR 30 DAYS. Strength: 300 mg - hydrOXYzine HCl (ATARAX) 25 mg tablet Take 2 tablets by mouth two times a day. - budesonide (PULMICORT) 0.5 mg/2 mL nebulizer solution Use 2 mL via nebulizer two times a day. - ipratropium-albuterol (DUONEB) 0.5 mg-3 mg(2.5 mg base)/3 mL nebu Inhale 3 mL as instructed every 4 hours while awake. - metoprolol succinate ER (TOPROL XL) 25 mg 24 hr tablet Take 1 tablet by mouth every afternoon. - clopidogrel (PLAVIX) 75 mg tablet Take 1 tablet by mouth once daily. - pantoprazole DR (PROTONIX) 40 mg tablet Take 1 tablet by mouth once daily. - rosuvastatin (CRESTOR) 20 mg tablet Take 1 tablet by mouth daily at bedtime. - lisinopril 2.5 mg tablet Take 1 tablet by mouth two times a day. Hold if SBP less than 110 - ezetimibe (ZETIA) 10 mg tablet Take 1 tablet by mouth once daily. - guaiFENesin (MUCINEX) 600 mg 12 hr tablet Take 1 tablet by mouth two times a day as needed for cold/allergy symptoms. - traZODone (DESYREL) 100 mg tablet TAKE 2 TABLETS BY MOUTH DAILY AT BEDTIME - furosemide (LASIX) 40 mg tablet Take 1 tablet by mouth three times a week. - escitalopram oxalate (LEXAPRO) 20 mg tablet Take 1 tablet by mouth once daily. - colestipol (COLESTID) 1 gram tablet Take 1 tablet by mouth two times a day. - OXYGEN, HOME THERAPY, 3 L/min by Nasal Cannula route as directed. - fluticasone (FLONASE) 50 mcg/actuation nasal spray spray 1 spray into each nostril every day - nitroglycerin sublingual (NITROSTAT) 0.4 mg SL tablet Dissolve 1 tablet under the tongue every 5 minutes as needed for chest pain. - albuterol sulfate 90 mcg/actuation aebs Inhale 1-2 Puffs as instructed every 4 hours as needed for wheezing/shortness of breath. - Lactobacillus acidophilus (PROBIOTIC) 10 billion cell cap Take 1 capsule by mouth once daily. - acetaminophen (TYLENOL EXTRA STRENGTH) 500 mg tablet Take 2 tablets by mouth every 8 hours as needed for pain. FOR PAIN. - Zinc 50 mg tab Take 50 mg by mouth once daily. - aspirin, enteric coated (ASPIRIN, ENTERIC COATED) 81 mg EC tablet Take 81 mg by mouth once daily. - multivit-min/folic/vit K/lycop (ONE-A-DAY MEN'S MULTIVITAMIN ORAL) Take by mouth once daily. 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 Normal [facility] Yamileth 09-17-2024 [facility] Telephone (MUKESH) ----- MARS PETERSON ([id number]) 1955 M DEF Date Time Provider Department 09/17/24 ALMA GILL During your visit today, we recorded the following information about you: Priya Pedersen MA 09/17/2024 8:43 AM Signed [employer] faxed over a form placed on signing tray VANNA Rojas Brittny A, APRN.[facility] 09/17/2024 9:36 AM Signed Signed. Please return fax. Priya Pedersen MA 09/17/2024 9:43 AM Signed Form faxed back Priya Pedersen MA Allergies As of Date: 09/17/2024 Noted Allergy Reaction ANIMAL DANDER 08/21/2022 14 - Other: See Comments Comments: Anything with fur SEASONAL ALLERGIES 08/21/2022 14 - Other: See Comments Comments: Stuffy nose, headaches Date Reviewed: 08/28/2024 Reviewed by: Alicia Garibay MA - Fully Assessed Reason for Visit: Electronic Communication [890] Forms [913] Prescriptions as of 09/17/2024 - mycophenolate Mofetil (CELLCEPT) 500 mg tablet Take 3 tablets by mouth two times a day. - acyclovir (ZOVIRAX) 800 mg tablet Take 1 tablet by mouth five times a day for 7 days. - lidocaine (LIDODERM) 5 % Apply 1 patch as directed once daily for 5 days. REMOVE AFTER 12 HOURS. - Blood-Glucose Sensor (FREESTYLE ROSA 3 PLUS SENSOR) chata 1 device every 2 weeks. - predniSONE (DELTASONE) 10 mg tablet TAKE 2 TABLETS BY MOUTH ONCE DAILY FOR 21 DAYS, THEN 1.5 TABLETS ONCE DAILY FOR 21 DAYS, THEN 1 TABLET ONCE DAILY FOR 21 DAYS, THEN 0.5 TABLETS ONCE DAILY FOR 21 DAYS. - isosorbide mononitrate ER (IMDUR) 30 mg 24 hr tablet Take 1 tablet by mouth once daily. - gabapentin (NEURONTIN) 300 mg capsule TAKE 2 CAPSULES BY MOUTH EVERY MORNING AND 3 CAPSULES AT BEDTIME FOR 30 DAYS. Strength: 300 mg - hydrOXYzine HCl (ATARAX) 25 mg tablet Take 2 tablets by mouth two times a day. - budesonide (PULMICORT) 0.5 mg/2 mL nebulizer solution Use 2 mL via nebulizer two times a day. - ipratropium-albuterol (DUONEB) 0.5 mg-3 mg(2.5 mg base)/3 mL nebu Inhale 3 mL as instructed every 4 hours while awake. - metoprolol succinate ER (TOPROL XL) 25 mg 24 hr tablet Take 1 tablet by mouth every afternoon. - clopidogrel (PLAVIX) 75 mg tablet Take 1 tablet by mouth once daily. - pantoprazole DR (PROTONIX) 40 mg tablet Take 1 tablet by mouth once daily. - rosuvastatin (CRESTOR) 20 mg tablet Take 1 tablet by mouth daily at bedtime. - lisinopril 2.5 mg tablet Take 1 tablet by mouth two times a day. Hold if SBP less than 110 - ezetimibe (ZETIA) 10 mg tablet Take 1 tablet by mouth once daily. - guaiFENesin (MUCINEX) 600 mg 12 hr tablet Take 1 tablet by mouth two times a day as needed for cold/allergy symptoms. - traZODone (DESYREL) 100 mg tablet TAKE 2 TABLETS BY MOUTH DAILY AT BEDTIME - furosemide (LASIX) 40 mg tablet Take 1 tablet by mouth three times a week. - escitalopram oxalate (LEXAPRO) 20 mg tablet Take 1 tablet by mouth once daily. - colestipol (COLESTID) 1 gram tablet Take 1 tablet by mouth two times a day. - OXYGEN, HOME THERAPY, 3 L/min by Nasal Cannula route as directed. - fluticasone (FLONASE) 50 mcg/actuation nasal spray spray 1 spray into each nostril every day - nitroglycerin sublingual (NITROSTAT) 0.4 mg SL tablet Dissolve 1 tablet under the tongue every 5 minutes as needed for chest pain. - albuterol sulfate 90 mcg/actuation aebs Inhale 1-2 Puffs as instructed every 4 hours as needed for wheezing/shortness of breath. - Lactobacillus acidophilus (PROBIOTIC) 10 billion cell cap Take 1 capsule by mouth once daily. - acetaminophen (TYLENOL EXTRA STRENGTH) 500 mg tablet Take 2 tablets by mouth every 8 hours as needed for pain. FOR PAIN. - Zinc 50 mg tab Take 50 mg by mouth once daily. - aspirin, enteric coated (ASPIRIN, ENTERIC COATED) 81 mg EC tablet Take 81 mg by mouth once daily. - multivit-min/folic/vit K/lycop (ONE-A-DAY MEN'S MULTIVITAMIN ORAL) Take by mouth once daily. 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 Normal [facility] CNPN Telephone (TiqetsBOB) ----- MARS PETERSON ([id number]) 1955 M DEF Date Time Provider Department 09/17/24 ALMA GILL During your visit today, we recorded the following information about you: Priya Pedersen MA 09/17/2024 9:45 AM Signed [facility] from [facility] called requesting Verbal orders to start PT one time a week for nine weeks VANNA Rojas Brittny A, APRN.[employer]INE OPERATOR 09/17/2024 10:38 AM Signed Verbal order given for PT. Priya Pedersen MA 09/17/2024 11:13 AM Signed Royer is informed Priya Pedersen MA Allergies As of Date: 09/17/2024 Noted Allergy Reaction ANIMAL DANDER 08/21/2022 14 - Other: See Comments Comments: Anything with fur SEASONAL ALLERGIES 08/21/2022 14 - Other: See Comments Comments: Stuffy nose, headaches Date Reviewed: 08/28/2024 Reviewed by: Alicia Garibay MA - Fully Assessed Reason for Visit: VERBAL ORDERS [Other] Prescriptions as of 09/17/2024 - mycophenolate Mofetil (CELLCEPT) 500 mg tablet Take 3 tablets by mouth two times a day. - acyclovir (ZOVIRAX) 800 mg tablet Take 1 tablet by mouth five times a day for 7 days. - lidocaine (LIDODERM) 5 % Apply 1 patch as directed once daily for 5 days. REMOVE AFTER 12 HOURS. - Blood-Glucose Sensor (FREESTYLE ROSA 3 PLUS SENSOR) chata 1 device every 2 weeks. - predniSONE (DELTASONE) 10 mg tablet TAKE 2 TABLETS BY MOUTH ONCE DAILY FOR 21 DAYS, THEN 1.5 TABLETS ONCE DAILY FOR 21 DAYS, THEN 1 TABLET ONCE DAILY FOR 21 DAYS, THEN 0.5 TABLETS ONCE DAILY FOR 21 DAYS. - isosorbide mononitrate ER (IMDUR) 30 mg 24 hr tablet Take 1 tablet by mouth once daily. - gabapentin (NEURONTIN) 300 mg capsule TAKE 2 CAPSULES BY MOUTH EVERY MORNING AND 3 CAPSULES AT BEDTIME FOR 30 DAYS. Strength: 300 mg - hydrOXYzine HCl (ATARAX) 25 mg tablet Take 2 tablets by mouth two times a day. - budesonide (PULMICORT) 0.5 mg/2 mL nebulizer solution Use 2 mL via nebulizer two times a day. - ipratropium-albuterol (DUONEB) 0.5 mg-3 mg(2.5 mg base)/3 mL nebu Inhale 3 mL as instructed every 4 hours while awake. - metoprolol succinate ER (TOPROL XL) 25 mg 24 hr tablet Take 1 tablet by mouth every afternoon. - clopidogrel (PLAVIX) 75 mg tablet Take 1 tablet by mouth once daily. - pantoprazole DR (PROTONIX) 40 mg tablet Take 1 tablet by mouth once daily. - rosuvastatin (CRESTOR) 20 mg tablet Take 1 tablet by mouth daily at bedtime. - lisinopril 2.5 mg tablet Take 1 tablet by mouth two times a day. Hold if SBP less than 110 - ezetimibe (ZETIA) 10 mg tablet Take 1 tablet by mouth once daily. - guaiFENesin (MUCINEX) 600 mg 12 hr tablet Take 1 tablet by mouth two times a day as needed for cold/allergy symptoms. - traZODone (DESYREL) 100 mg tablet TAKE 2 TABLETS BY MOUTH DAILY AT BEDTIME - furosemide (LASIX) 40 mg tablet Take 1 tablet by mouth three times a week. - escitalopram oxalate (LEXAPRO) 20 mg tablet Take 1 tablet by mouth once daily. - colestipol (COLESTID) 1 gram tablet Take 1 tablet by mouth two times a day. - OXYGEN, HOME THERAPY, 3 L/min by Nasal Cannula route as directed. - fluticasone (FLONASE) 50 mcg/actuation nasal spray spray 1 spray into each nostril every day - nitroglycerin sublingual (NITROSTAT) 0.4 mg SL tablet Dissolve 1 tablet under the tongue every 5 minutes as needed for chest pain. - albuterol sulfate 90 mcg/actuation aebs Inhale 1-2 Puffs as instructed every 4 hours as needed for wheezing/shortness of breath. - Lactobacillus acidophilus (PROBIOTIC) 10 billion cell cap Take 1 capsule by mouth once daily. - acetaminophen (TYLENOL EXTRA STRENGTH) 500 mg tablet Take 2 tablets by mouth every 8 hours as needed for pain. FOR PAIN. - Zinc 50 mg tab Take 50 mg by mouth once daily. - aspirin, enteric coated (ASPIRIN, ENTERIC COATED) 81 mg EC tablet Take 81 mg by mouth once daily. - multivit-min/folic/vit K/lycop (ONE-A-DAY MEN'S MULTIVITAMIN ORAL) Take by mouth once daily. 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 Normal [facility] Yamileth 09-10-2024 EVANSN Telephone (ALMA DELIAFAMPBOB) ----- MARS PETERSON ([id number]) 1955 M DEF Date Time Provider Department 09/10/24 ALMA GILL During your visit today, we recorded the following information about you: Priya Pedersen MA 09/10/2024 2:40 PM Signed [facility] lab called for a glucose reading of 35 VANNA oRjas Brittny A, TAY.[facility] 09/10/2024 2:44 PM Signed Reviewed labs, this reading was from yesterday. ocular care technician states they did not receive the lab until 11 pm last night. Please notify the patient's about the reading. Does he have supplies to check his BS at home? Priya Pedersen MA 09/10/2024 3:42 PM Signed She states that they don't check but she will start. She has a glucose monitor but he does not like getting his finger pricked so she would like for a freestyle VANNA Rojas Brittny A, TAY.[facility] 09/10/2024 4:06 PM Signed Rx for Freestyle sent in. Alma Gill APRN.[facility] 09/10/2024 4:06 PM Signed Addended by: ALMA GILL on: 09/10/2024 04:06 PM Modules accepted: Orders Allergies As of Date: 09/10/2024 Noted Allergy Reaction ANIMAL DANDER 08/21/2022 14 - Other: See Comments Comments: Anything with fur SEASONAL ALLERGIES 08/21/2022 14 - Other: See Comments Comments: Stuffy nose, headaches Date Reviewed: 08/28/2024 Reviewed by: Alicia Garibay MA - Fully Assessed Reason for Visit: Critical Results [1705] Primary Visit Diagnosis:Hypoglycemia [E16.2] Order(s):Blood-Glucose Sensor (FREESTYLE ROSA 3 PLUS SENSOR) devi1 device every 2 weeks.Disp: 2 eachRfl: 2 Prescriptions as of 09/10/2024 - Blood-Glucose Sensor (FREESTYLE ROSA 3 PLUS SENSOR) chata 1 device every 2 weeks. - predniSONE (DELTASONE) 10 mg tablet TAKE 2 TABLETS BY MOUTH ONCE DAILY FOR 21 DAYS, THEN 1.5 TABLETS ONCE DAILY FOR 21 DAYS, THEN 1 TABLET ONCE DAILY FOR 21 DAYS, THEN 0.5 TABLETS ONCE DAILY FOR 21 DAYS. - isosorbide mononitrate ER (IMDUR) 30 mg 24 hr tablet Take 1 tablet by mouth once daily. - gabapentin (NEURONTIN) 300 mg capsule TAKE 2 CAPSULES BY MOUTH EVERY MORNING AND 3 CAPSULES AT BEDTIME FOR 30 DAYS. Strength: 300 mg - hydrOXYzine HCl (ATARAX) 25 mg tablet Take 2 tablets by mouth two times a day. - budesonide (PULMICORT) 0.5 mg/2 mL nebulizer solution Use 2 mL via nebulizer two times a day. - ipratropium-albuterol (DUONEB) 0.5 mg-3 mg(2.5 mg base)/3 mL nebu Inhale 3 mL as instructed every 4 hours while awake. - metoprolol succinate ER (TOPROL XL) 25 mg 24 hr tablet Take 1 tablet by mouth every afternoon. - clopidogrel (PLAVIX) 75 mg tablet Take 1 tablet by mouth once daily. - pantoprazole DR (PROTONIX) 40 mg tablet Take 1 tablet by mouth once daily. - mycophenolate mofetil (CELLCEPT) 250 mg capsule Take 1 capsule by mouth two times a day for 14 days, THEN 2 capsules two times a day for 14 days, THEN 4 capsules two times a day for 14 days, THEN 6 capsules two times a day. - rosuvastatin (CRESTOR) 20 mg tablet Take 1 tablet by mouth daily at bedtime. - lisinopril 2.5 mg tablet Take 1 tablet by mouth two times a day. Hold if SBP less than 110 - ezetimibe (ZETIA) 10 mg tablet Take 1 tablet by mouth once daily. - guaiFENesin (MUCINEX) 600 mg 12 hr tablet Take 1 tablet by mouth two times a day as needed for cold/allergy symptoms. - traZODone (DESYREL) 100 mg tablet TAKE 2 TABLETS BY MOUTH DAILY AT BEDTIME - furosemide (LASIX) 40 mg tablet Take 1 tablet by mouth three times a week. - escitalopram oxalate (LEXAPRO) 20 mg tablet Take 1 tablet by mouth once daily. - colestipol (COLESTID) 1 gram tablet Take 1 tablet by mouth two times a day. - OXYGEN, HOME THERAPY, 3 L/min by Nasal Cannula route as directed. - fluticasone (FLONASE) 50 mcg/actuation nasal spray spray 1 spray into each nostril every day - nitroglycerin sublingual (NITROSTAT) 0.4 mg SL tablet Dissolve 1 tablet under the tongue every 5 minutes as needed for chest pain. - albuterol sulfate 90 mcg/actuation aebs Inhale 1-2 Puffs as instructed every 4 hours as needed for wheezing/shortness of breath. - Lactobacillus acidophilus (PROBIOTIC) 10 billion cell cap Take 1 capsule by mouth once daily. - acetaminophen (TYLENOL EXTRA STRENGTH) 500 mg tablet Take 2 tablets by mouth every 8 hours as needed for pain. FOR PAIN. - Zinc 50 mg tab Take 50 mg by mouth once daily. - aspirin, enteric coated (ASPIRIN, ENTERIC COATED) 81 mg EC tablet Take 81 mg by mouth once daily. - multivit-min/folic/vit K/lycop (ONE-A-DAY MEN'S MULTIVITAMIN ORAL) Take by mouth once daily. Problem List As Of Date 09/10/2024 Noted Resolved Essential hypertension [I10] 05/24/2020 Peripheral vascular disease (HCC) [I73.9] 05/24/2020 Chronic back pain [M54.9, G89.29] 05/24/2020 Obesity, Class II, BMI 35-39.9 [E66.812] 05/24/2020 Status post below knee amputation of right lowe*10/22/2020 Chronic diastolic congestive hea (more content not included)... Normal [facility] CBC W Auto Differential pane l (Bld)on 09-09-2024 Basophils (Bld) [#/Vol] 10*3/uL Normal <0.11 [facility] Comment on above: Order Comment: Elgin egan Type: BLOOD SPECIMENOrdering Facility: External Submitter Address: , , Performed By: #### 7021-8 ####[facility] [id number] [place] [address] [place] Basophils/100 WBC (Bld) 0.1 % Normal [facility] Comment on above: Order Comment: Isadorai jignesh Type: BLOOD SPECIMENOrdering Facility: External Submitter Address: , , Performed By: #### 2 9380-8 ####[facility]CL[facility] [id number] [place] [address] [place] Differential cell count method Nom (Bld) Auto Normal [facility] Comment on above: Order Comment: Elgin jignesh Type: BLOOD SPECIMENOrdering Facility: External Submitter Address: , , Performed By: #### 0 1870-8 ####[facility]CL[facility] [id number] [id number], [place] [address] [place] Eosinophils (Bld) [#/Vol] 0.15 10*3/uL Normal <0.46 [facility] Comment on above: Order Comment: Speci men Type: BLOOD SPECIMENOrdering Facility: External Submitter Address: , , Performed By: #### 5 7021-8 ####[facility]CL[facility] [id number] [id number] [address] [place] Eosinophils/100 WBC (Bld) 1.4 % Normal [facility] Comment on above: Order Comment: Speci men Type: BLOOD SPECIMENOrdering Facility: External Submitter Address: , , Performed By: #### 5 7021-8 ####[facility] [id number] [facility] [address] [place] [address] [place] Erythrocyte distribution width (RBC) [Ratio] 13.9 % Normal 11.5-15.0 [facility] Comment on above: Order Comment: Speci men Type: BLOOD SPECIMENOrdering Facility: External Submitter Address: , , Performed By: #### 5 7021-8 ####[facility] [id number] [facility] [address] [place] [address] [place] Hematocrit (Bld) [Volume fraction] 42.2 % Normal 39.0-51.0 [facility] Comment on above: Order Comment: Speci men Type: BLOOD SPECIMENOrdering Facility: External Submitter Address: , , Performed By: #### 5 7021-8 ####[facility] [id number] [facility] [address] [place] [address] [place] Hemoglobin (Bld) [Mass/Vol] 13.0 g/dL Normal 13.0-17.0 [facility] Comment on above: Order Comment: Speci men Type: BLOOD SPECIMENOrdering Facility: External Submitter Address: , , Performed By: #### 5 7021-8 ####[facility] [id number] [address] [place] [address] [facility] [place] Immature granulocytes (Bld) [#/Vol] 0.09 10*3/uL Normal <0.10 [facility] Comment on above: Order Comment: Speci men Type: BLOOD SPECIMENOrdering Facility: External Submitter Address: , , Performed By: #### 5 7021-8 ####[facility] [id number] [address] [place] [address] [facility] Immature granulocytes/100 WBC (Bld) 0.9 % Normal [facility] Comment on above: Order Comment: Speci men Type: BLOOD SPECIMENOrdering Facility: External Submitter Address: , , Performed By: #### 5 7021-8 ####[facility] [id number] [address] [place] [address] [place] Lymphocytes (Bld) [#/Vol] 1.12 10*3/uL Normal 1.00-4.00 [facility] Comment on above: Order Comment: Speci men Type: BLOOD SPECIMENOrdering Facility: External Submitter Address: , , Performed By: #### 5 7021-8 ####[facility] [id number] [address] [place] [address] [facility] Lymphocytes/100 WBC (Bld) 10.6 % Normal [facility] Comment on above: Order Comment: Speci men Type: BLOOD SPECIMENOrdering Facility: External Submitter Address: , , Performed By: #### 5 7021-8 ####[facility] [id number] [address] [place] [address] [place] MCH (RBC) [Entitic mass] 27.9 pg Normal 26.0-34.0 [facility] Comment on above: Order Comment: Speci men Type: BLOOD SPECIMENOrdering Facility: External Submitter Address: , , Performed By: #### 5 7021-8 ####[facility]CL[facility] [id number] [address] [address] [place] MCHC (RBC) [Mass/Vol] 30.8 g/dL Normal 30.5-36.0 [facility] Comment on above: Order Comment: Speci men Type: BLOOD SPECIMENOrdering Facility: External Submitter Address: , , Performed By: #### 5 7021-8 ####[facility]CL[facility] [id number] [address] [address] [place] MCV (RBC) [Entitic vol] 90.6 fL Normal 80.0-100.0 [facility] Comment on above: Order Comment: Speci men Type: BLOOD SPECIMENOrdering Facility: External Submitter Address: , , Performed By: #### 5 7021-8 ####[facility] [id number] [address] [address] [place] Monocytes (Bld) [#/Vol] 1.26 10*3/uL High <0.87 [facility] Comment on above: Order Comment: Speci men Type: BLOOD SPECIMENOrdering Facility: External Submitter Address: , , Performed By: #### 5 7021-8 ####[facility] [id number] [address] [address] [place] Monocytes/100 WBC (Bld) 12.0 % Normal [facility] Comment on above: Order Comment: Speci men Type: BLOOD SPECIMENOrdering Facility: External Submitter Address: , , Performed By: #### 5 7021-8 ####[facility] [id number] [address] [address] [place] Neutrophils (Bld) [#/Vol] 7.91 10*3/uL High 1.45-7.50 [facility] Comment on above: Order Comment: Speci men Type: BLOOD SPECIMENOrdering Facility: External Submitter Address: , , Performed By: #### 5 7021-8 ####[facility] [id number] [facility] [address] [place] [address] [place] Neutrophils/100 WBC (Bld) 75.0 % Normal [facility] Comment on above: Order Comment: Speci men Type: BLOOD SPECIMENOrdering Facility: External Submitter Address: , , Performed By: #### 5 7021-8 ####[facility] [id number] [address] [place] [address] [facility] Nucleated RBC (Bld) [#/Vol] 10*3/uL Normal <0.01 [facility] Comment on above: Order Comment: Speci men Type: BLOOD SPECIMENOrdering Facility: External Submitter Address: , , Performed By: #### 5 7021-8 ####[facility] [id number] [address] [place] [address] [place] Nucleated RBC/100 WBC (Bld) [Ratio] 0.0 /100 WBC Normal [facility] Comment on above: Order Comment: Speci men Type: BLOOD SPECIMENOrdering Facility: External Submitter Address: , , Performed By: #### 5 7021-8 ####[facility] [id number] [address] [place] [address] [place] Platelet mean volume (Bld) [Entitic vol] 9.9 fL Normal 9.0-12.7 [facility] Comment on above: Order Comment: Speci men Type: BLOOD SPECIMENOrdering Facility: External Submitter Address: , , Performed By: #### 5 7021-8 ####[facility] [id number] [address] [place] [address] [place] Platelets (Bld) [#/Vol] 213 10*3/uL Normal 150-400 [facility] Comment on above: Order Comment: Speci men Type: BLOOD SPECIMENOrdering Facility: External Submitter Address: , , Performed By: #### 5 7021-8 ####[facility] [id number] [facility] [id number], [place] [address] [place] RBC (Bld) [#/Vol] 4.66 10*6/uL Normal 4.20-6.00 [facility] Comment on above: Order Comment: Speci men Type: BLOOD SPECIMENOrdering Facility: External Submitter Address: , , Performed By: #### 5 7021-8 ####[facility] [id number] [address] [place] [address] [place] WBC (Bld) [#/Vol] 10.54 10*3/uL Normal 3.70-11.00 [facility] Comment on above: Order Comment: Speci men Type: BLOOD SPECIMENOrdering Facility: External Submitter Address: , , Performed By: #### 5 7021-8 ####[facility] [id number] [address] [place] [address] [facility] Comprehensive metabolic 2000 panelon 09-09-2024 Albumin [Mass/Vol] 3.7 g/dL Low 3.9-4.9 [facility] Comment on above: Order Comment: Speci men Type: BLOOD SPECIMENOrdering Facility: External Submitter Address: , , Performed By: #### 2 4323-8 ####[facility] [id number] [facility] [address] [place] [address] [facility] [place] ALP [Catalytic activity/Vol] 37 U/L Low 38-113 [facility] Comment on above: Order Comment: Speci men Type: BLOOD SPECIMENOrdering Facility: External Submitter Address: , , Performed By: #### 2 4323-8 ####[facility] [id number] [facility] [address] [place] [address] [facility] ALT [Catalytic activity/Vol] 22 U/L Normal 10-54 [facility] Comment on above: Order Comment: Speci men Type: BLOOD SPECIMENOrdering Facility: External Submitter Address: , , Performed By: #### 2 4323-8 ####[facility] [id number] [facility] [address] [place] [address] [place] Anion gap [Moles/Vol] 12 mmol/L Normal 8-15 [facility] Comment on above: Order Comment: Speci men Type: BLOOD SPECIMENOrdering Facility: External Submitter Address: , , Performed By: #### 2 4323-8 ####[facility] [id number] [address] [place] [address] [place] AST [Catalytic activity/Vol] 24 U/L Normal 14-40 [facility] Comment on above: Order Comment: Speci men Type: BLOOD SPECIMENOrdering Facility: External Submitter Address: , , Performed By: #### 2 4323-8 ####[facility] [id number] [address] [address] [place] Bilirubin [Mass/Vol] 0.3 mg/dL Normal 0.2-1.3 [facility] Comment on above: Order Comment: Speci men Type: BLOOD SPECIMENOrdering Facility: External Submitter Address: , , Performed By: #### 2 4323-8 ####[facility] LABCLIA [id number] [address] [place] [address] [place] Calcium [Mass/Vol] 9.0 mg/dL Normal 8.5-10.2 [facility] Comment on above: Order Comment: Speci men Type: BLOOD SPECIMENOrdering Facility: External Submitter Address: , , Performed By: #### 2 4323-8 ####[facility] [id number] [facility] [address] [place] [address] [place] Chloride [Moles/Vol] 93 mmol/L Low 98-107 [facility] Comment on above: Order Comment: Speci men Type: BLOOD SPECIMENOrdering Facility: External Submitter Address: , , Performed By: #### 2 4323-8 ####[facility] LABCLIA [id number] [facility] [id number] [address] [place] CO2 [Moles/Vol] 25 mmol/L Normal 22-30 [facility] Comment on above: Order Comment: Speci men Type: BLOOD SPECIMENOrdering Facility: External Submitter Address: , , Performed By: #### 2 4323-8 ####[facility] LABIA [id number] [facility] [address] [place] [address] [place] Creatinine [Mass/Vol] 1.14 mg/dL Normal 0.73-1.22 [facility] Comment on above: Order Comment: Speci men Type: BLOOD SPECIMENOrdering Facility: External Submitter Address: , , Performed By: #### 2 4323-8 ####[facility]IA [id number] [facility] [address] [address] [place] Creatinine and Glomerular filtration rate.predicted panel (S/P/Bld) 69 mL/min/1.73m??? Normal >=60 [facility] Comment on above: Order Comment: Speci men Type: BLOOD SPECIMENOrdering Facility: External Submitter Address: , , Result Comment: Tamika mated Glomerular Filtration Rate (eGFR) is calculated using the 2020 CKD-EPI creatinine equation. This equation utilizes serum creatinine, sex, and age as parameters. The creatinine assay has traceable calibration to isotope dilution-mass spectrometry. Refer to KDIGO guidelines for clinical interpretation. In patients with unstable renal function, e.g. those with acute kidney injury, the eGFR may not accurately reflect actual GFR. Performed By: #### 2 4323-8 ####[facility] LABIA [id number] [facility] [address] [place] [address] [place] Glucose [Mass/Vol] 35 mg/dL Critically low 74-99 [facility] Comment on above: Order Comment: Speci men Type: BLOOD SPECIMENOrdering Facility: External Submitter Address: , , Result Comment: The [place] Diabetes Association (ADA) provides guidance for cutoff values for fasting glucose and random glucose. The ADA defines fasting as no caloric intake for at least 8 hours. Fasting plasma glucose results between 100 to 125 mg/dL indicate increased risk for diabetes (prediabetes).Fasting plasma glucose results greater than or equal to 126 mg/dL meet the criteria for diagnosis of diabetes. In the absence of unequivocal hyperglycemia, results should be confirmed by repeat testing. In a patient with classic symptoms of hyperglycemia or hyperglycemic crisis, random plasma glucose results greater than or equal to 200 mg/dL meet the criteria for diagnosis of diabetes.Reference: Standards of Medical Care in Diabetes 2016, [place] Diabetes Association. Diabetes Care. 2016.39(Suppl 1). Performed By: #### 2 4323-8 ####[facility] LABCLIA [id number] [address] [address] [place] Potassium [Moles/Vol] 4.5 mmol/L Normal 3.7-5.1 [facility] Comment on above: Order Comment: Isadorai jignesh Type: BLOOD SPECIMENOrdering Facility: External Submitter Address: , , Performed By: #### 2 4323-8 ####[facility] LABCLIA [id number] [address] [address] [place] Protein [Mass/Vol] 6.6 g/dL Normal 6.3-8.0 [facility] Comment on above: Order Comment: Elgin egan Type: BLOOD SPECIMENOrdering Facility: External Submitter Address: , , Performed By: #### 2 4323-8 ####[facility] LABCLIA [id number] [address] [address] [place] Sodium [Moles/Vol] 130 mmol/L Low 136-144 [facility] Comment on above: Order Comment: Isadorai men Type: BLOOD SPECIMENOrdering Facility: External Submitter Address: , , Performed By: #### 2 4323-8 ####[facility] LABCLIA [id number] [address] [address] [place] Urea nitrogen [Mass/Vol] 10 mg/dL Normal 9-24 [facility] Comment on above: Order Comment: Isadorai men Type: BLOOD SPECIMENOrdering Facility: External Submitter Address: , , Performed By: #### 2 4323-8 ####[facility] LABCLIA [id number] [address] [place] [address] [place] [facility] CBC W Auto Differential pane l (Bld)on 08-31-2024 Basophils (Bld) [#/Vol] 10*3/uL Normal <0.11 [facility] Comment on above: Order Comment: Speci men Type: BLOOD SPECIMENOrdering Facility: External Submitter Address: , , Performed By: #### 5 7021-8 ####[facility] LABCLIA [id number] [address], [address] Basophils/100 WBC (Bld) 0.2 % Normal [facility] Comment on above: Order Comment: Speci men Type: BLOOD SPECIMENOrdering Facility: External Submitter Address: , , Performed By: #### 5 7021-8 ####[facility] LABCLIA [id number] [address] [place] [address] [place] [address] [facility] Differential cell count method Nom (Bld) Auto Normal [facility] Comment on above: Order Comment: Speci men Type: BLOOD SPECIMENOrdering Facility: External Submitter Address: , , Performed By: #### 5 7021-8 ####[facility] LABCLIA [id number] [address] [place] [address] [place] Eosinophils (Bld) [#/Vol] 0.16 10*3/uL Normal <0.46 [facility] Comment on above: Order Comment: Speci men Type: BLOOD SPECIMENOrdering Facility: External Submitter Address: , , Performed By: #### 5 7021-8 ####[facility] LABCLIA [id number] [address] [place] [address] [facility] Eosinophils/100 WBC (Bld) 1.3 % Normal [facility] Comment on above: Order Comment: Speci men Type: BLOOD SPECIMENOrdering Facility: External Submitter Address: , , Performed By: #### 5 7021-8 ####[facility] LABIA [id number] [address], [place] [address] [place] [address] Erythrocyte distribution width (RBC) [Ratio] 14.2 % Normal 11.5-15.0 [facility] Comment on above: Order Comment: Speci men Type: BLOOD SPECIMENOrdering Facility: External Submitter Address: , , Performed By: #### 5 7021-8 ####[facility] LABIA [id number] [address], [address] Hematocrit (Bld) [Volume fraction] 40.5 % Normal 39.0-51.0 [facility] Comment on above: Order Comment: Speci men Type: BLOOD SPECIMENOrdering Facility: External Submitter Address: , , Performed By: #### 5 7021-8 ####[facility] LABIA [id number] [address], [address] OF [facility] Hemoglobin (Bld) [Mass/Vol] 12.4 g/dL Low 13.0-17.0 [facility] Comment on above: Order Comment: Speci men Type: BLOOD SPECIMENOrdering Facility: External Submitter Address: , , Performed By: #### 5 7021-8 ####[facility] LABIA [id number] [address] [address] [place] Immature granulocytes (Bld) [#/Vol] 0.10 10*3/uL High <0.10 [facility] Comment on above: Order Comment: Speci men Type: BLOOD SPECIMENOrdering Facility: External Submitter Address: , , Performed By: #### 5 7021-8 ####[facility] LABIA [id number] [address] [address] [facility] Immature granulocytes/100 WBC (Bld) 0.8 % Normal [facility] Comment on above: Order Comment: Speci men Type: BLOOD SPECIMENOrdering Facility: External Submitter Address: , , Performed By: #### 5 7021-8 ####[facility] LABIA [id number] [address] Lymphocytes (Bld) [#/Vol] 1.72 10*3/uL Normal 1.00-4.00 [facility] Comment on above: Order Comment: Speci men Type: BLOOD SPECIMENOrdering Facility: External Submitter Address: , , Performed By: #### 5 7021-8 ####[facility] LABCLIA [id number] [address] Lymphocytes/100 WBC (Bld) 13.5 % Normal [facility] Comment on above: Order Comment: Speci men Type: BLOOD SPECIMENOrdering Facility: External Submitter Address: , , Performed By: #### 5 7021-8 ####[facility] LABIA [id number] [address] [place] [facility] MCH (RBC) [Entitic mass] 27.5 pg Normal 26.0-34.0 [facility] Comment on above: Order Comment: Speci men Type: BLOOD SPECIMENOrdering Facility: External Submitter Address: , , Performed By: #### 5 7021-8 ####[facility] LABIA [id number] [address] OF [facility] MCHC (RBC) [Mass/Vol] 30.6 g/dL Normal 30.5-36.0 [facility] Comment on above: Order Comment: Speci men Type: BLOOD SPECIMENOrdering Facility: External Submitter Address: , , Performed By: #### 5 7021-8 ####[facility] LABIA [id number] [address] MCV (RBC) [Entitic vol] 89.8 fL Normal 80.0-100.0 [facility] Comment on above: Order Comment: Speci men Type: BLOOD SPECIMENOrdering Facility: External Submitter Address: , , Performed By: #### 5 7021-8 ####[facility] LABCLIA [id number] [facility] [id number], [place] [address] [place] Monocytes (Bld) [#/Vol] 1.61 10*3/uL High <0.87 [facility] Comment on above: Order Comment: Speci men Type: BLOOD SPECIMENOrdering Facility: External Submitter Address: , , Performed By: #### 5 7021-8 ####[facility]CL[facility] [id number] [facility] [id number], [place] [address] [place] Monocytes/100 WBC (Bld) 12.6 % Normal [facility] Comment on above: Order Comment: Speci men Type: BLOOD SPECIMENOrdering Facility: External Submitter Address: , , Performed By: #### 5 7021-8 ####[facility]CLIA [id number] [facility] [address] [place] [address] [place] Neutrophils (Bld) [#/Vol] 9.15 10*3/uL High 1.45-7.50 [facility] Comment on above: Order Comment: Speci men Type: BLOOD SPECIMENOrdering Facility: External Submitter Address: , , Performed By: #### 5 7021-8 ####[facility]CL[facility] [id number] [facility] [address] [place] [address] [place] Neutrophils/100 WBC (Bld) 71.6 % Normal [facility] Comment on above: Order Comment: Speci men Type: BLOOD SPECIMENOrdering Facility: External Submitter Address: , , Performed By: #### 5 7021-8 ####[facility]CL[facility] [id number] [facility] [address] [place] [address] [place] Nucleated RBC (Bld) [#/Vol] 10*3/uL Normal <0.01 [facility] Comment on above: Order Comment: Speci men Type: BLOOD SPECIMENOrdering Facility: External Submitter Address: , , Performed By: #### 5 7021-8 ####[facility] LABCLIA [id number] [address] [place] [address] [place] Nucleated RBC/100 WBC (Bld) [Ratio] 0.0 /100 WBC Normal [facility] Comment on above: Order Comment: Speci men Type: BLOOD SPECIMENOrdering Facility: External Submitter Address: , , Performed By: #### 5 7021-8 ####[facility] LABIA [id number] [address] [place] [address] [place] Platelet mean volume (Bld) [Entitic vol] 9.7 fL Normal 9.0-12.7 [facility] Comment on above: Order Comment: Speci men Type: BLOOD SPECIMENOrdering Facility: External Submitter Address: , , Performed By: #### 5 7021-8 ####[facility] LABIA [id number] [address] [place] [address] [place] Platelets (Bld) [#/Vol] 247 10*3/uL Normal 150-400 [facility] Comment on above: Order Comment: Speci men Type: BLOOD SPECIMENOrdering Facility: External Submitter Address: , , Performed By: #### 5 7021-8 ####[facility] LABIA [id number] [address] [place] [address] [place] RBC (Bld) [#/Vol] 4.51 10*6/uL Normal 4.20-6.00 [facility] Comment on above: Order Comment: Speci men Type: BLOOD SPECIMENOrdering Facility: External Submitter Address: , , Performed By: #### 5 7021-8 ####[facility] LABIA [id number] [address] [place] [address] [place] WBC (Bld) [#/Vol] 12.76 10*3/uL High 3.70-11.00 [facility] Comment on above: Order Comment: Speci men Type: BLOOD SPECIMENOrdering Facility: External Submitter Address: , , Performed By: #### 5 7021-8 ####[facility] LABCLIA [id number] [place] [address] [place] CNOVon 08-28-2024 CNOV Normal [facility] ECHOon 08-26-2024 CONCLUSIONS: - Technically difficult exam due to body habitus and suboptimal positioning. - Exam indication: Suspected pulmonary hypertension - The left ventricle is normal in size. There is mild left ventricular hypertrophy. Left ventricular systolic function is normal. EF = 55 5% (visual est.) Definity contrast used for endocardial border detection. Indeterminate left ventricular diastolic function. - The right ventricle is normal in size. Right ventricular systolic function is normal. - The left atrial cavity is mildly dilated. Val 36 ml/m . - There are no significant valvular abnormalities. - Exam was compared with the prior echocardiographic exam performed on 02/20/22. There is no significant change. * * * Final * * * [facility] Echocardi[facility] Report: Transthoracic Echo [facility] Date of service: 08/26/2024 11:45:21 AM Ordering physician: MITCHELL CARUSO Indication: Suspected pulmonary hypertension Technologist: Phoebe Espinosa [facility] Interpreting physician: Brad Downs MD PATIENT: Name: MARS PETERSON : 1955 Age: 69 years Gender: M Primary rhythm: sinus. Height: 182.90 cm BSA: 2.55 m Weight: 127.70 kg BMI: 38.2 kg/m Heart rate 64 bpm Blood pressure 135/68 mmHg Technically difficult exam due to body habitus and suboptimal positioning. Color Doppler was utilized to interrogate the cardiac valves assessed and spectral Doppler was utilized to determine the flow velocities and pressure gradients reported in this exam. MEASUREMENTS: Value Indexed Normal Max aortic dimension 3.4 cm Ao < 3.8 Left atrium diameter 3.7 cm (2D) Left atrial volume 92 ml (biplane A-L) 36 ml/m Val <= 34 LV ID (diastole) 4.7 cm (2D) 1.85 cm/m LV ID (systole) 3.5 cm (2D) 1.38 cm/m IVS, leaflet tips 1.4 cm (2D) Posterior wall thickness 1.3 cm (2D) Left ventricular mass 259 g (2D) 102 g/m Ejection Fraction 55 % (visual est.) EF > 52 FINDINGS: LEFT VENTRICLE The left ventricle is normal in size. There is mild left ventricular hypertrophy. Left ventricular systolic function is normal. Indeterminate left ventricular diastolic function. Mitral annular lateral E/e': 6.0. Mitral annular septal E/e': 6.7. Definity contrast used for endocardial border detection. Wall Motion: The apex is severely hypokinetic. All remaining scored segments are normal. RIGHT VENTRICLE The right ventricle is normal in size. Right ventricular systolic function is normal. RV systolic tissue Doppler velocity is 9.0 cm/s. Estimated right ventricular systolic pressure is likely underestimated due to a weak or incomplete tricuspid regurgitation signal and is, at least, 7 mmHg plus right atrial pressure. Estimated right atrial pressure is not included as the IVC was not seen. LEFT ATRIUM The left atrial cavity is mildly dilated. RIGHT ATRIUM Unable to reliably measure RA volume due to technical limitations. MITRAL VALVE There is mild mitral annular calcification observed posterior. There is no mitral valve regurgitation. The pressure half time is 49 msec. The peak mitral E/A ratio is 0.89. The mitral flow deceleration time is 169 msec. TRICUSPID VALVE The tricuspid valve was not seen or not interrogated. There is trace tricuspid valve regurgitation. AORTIC VALVE There is no aortic valve regurgitation. There is mild thickening. The peak gradient is 6 mmHg (peak velocity = 121.0 cm/s). The mean gradient is 3 mmHg. The LVOT mean velocity is 65.5 cm/s. The aortic VTI is 24.8 cm. The mean velocity in the aortic valve is 86.4 cm/s. The dimensionless valve index is 0.95. PULMONIC VALVE The pulmonic valve was not seen or not interrogated. There is trace pulmonic valve regurgitation. AORTA The visualized aorta is normal in size. Measurements - Mid ascending aorta 3.4 cm. INTERATRIAL SEPTUM The interatrial septum is unseen or not interrogated. [facility] Echocardiography Echocardiography Rep ort: Transthoracic Echo [facility] Date of service: 08/26/2024 11:45:21 AM Ordering physician: MITCHELL CARUSO Indication: Suspected pulmonary hypertension Technologist: Phoebe Espinosa [facility] Interpreting physician: Brad Downs MD PATIENT: Name: MARS PETERSON : 1955 Age: 69 years Gender: M Primary rhythm: sinus. Height: 182.90 cm BSA: 2.55 m Weight: 127.70 kg BMI: 38.2 kg/m Heart rate 64 bpm Blood pressure 135/68 mmHg Technically difficult exam due to body habitus and suboptimal positioning. Color Doppler was utilized to interrogate the cardiac valves assessed and spectral Doppler was utilized to determine the flow velocities and pressure gradients reported in this exam. MEASUREMENTS: Value Indexed Normal Max aortic dimension 3.4 cm Ao < 3.8 Left atrium diameter 3.7 cm (2D) Left atrial volume 92 ml (biplane A-L) 36 ml/m Val <= 34 LV ID (diastole) 4.7 cm (2D) 1.85 cm/m LV ID (systole) 3.5 cm (2D) 1.38 cm/m IVS, leaflet tips 1.4 cm (2D) Posterior wall thickness 1.3 cm (2D) Left ventricular mass 259 g (2D) 102 g/m Ejection Fraction 55 % (visual est.) EF > 52 FINDINGS: LEFT VENTRICLE The left ventricle is normal in size. There is mild left ventricular hypertrophy. Left ventricular systolic function is normal. Indeterminate left ventricular diastolic function. Mitral annular lateral E/e': 6.0. Mitral annular septal E/e': 6.7. Definity contrast used for endocardial border detection. Wall Motion: The apex is severely hypokinetic. All remaining scored segments are normal. RIGHT VENTRICLE The right ventricle is normal in size. Right ventricular systolic function is normal. RV systolic tissue Doppler velocity is 9.0 cm/s. Estimated right ventricular systolic pressure is likely underestimated due to a weak or incomplete tricuspid regurgitation signal and is, at least, 7 mmHg plus right atrial pressure. Estimated right atrial pressure is not included as the IVC was not seen. LEFT ATRIUM The left atrial cavity is mildly dilated. RIGHT ATRIUM Unable to reliably measure RA volume due to technical limitations. MITRAL VALVE There is mild mitral annular calcification observed posterior. There is no mitral valve regurgitation. The pressure half time is 49 msec. The peak mitral E/A ratio is 0.89. The mitral flow deceleration time is 169 msec. TRICUSPID VALVE The tricuspid valve was not seen or not interrogated. There is trace tricuspid valve regurgitation. AORTIC VALVE There is no aortic valve regurgitation. There is mild thickening. The peak gradient is 6 mmHg (peak velocity = 121.0 cm/s). The mean gradient is 3 mmHg. The LVOT mean velocity is 65.5 cm/s. The aortic VTI is 24.8 cm. The mean velocity in the aortic valve is 86.4 cm/s. The dimensionless valve index is 0.95. PULMONIC VALVE The pulmonic valve was not seen or not interrogated. There is trace pulmonic valve regurgitation. AORTA The visualized aorta is normal in size. Measurements - Mid ascending aorta 3.4 cm. INTERATRIAL SEPTUM The interatrial septum is unseen or not interrogated. CONCLUSIONS: - Technically difficult exam due to body habitus and suboptimal positioning. - Exam indication: Suspected pulmonary hypertension - The left ventricle is normal in size. There is mild left ventricular hypertrophy. Left ventricular systolic function is normal. EF = 55 5% (visual est.) Definity contrast used for endocardial border detection. Indeterminate left ventricular diastolic function. - The right ventricle is normal in size. Right ventricular systolic function is normal. - The left atrial cavity is mildly dilated. Val 36 ml/m . - There are no significant valvular abnormalities. - Exam was compared with the prior [facility] echocardiographic exam performed on 02/20/22. There is no significant change. * * * Final * * * [facility] : [id number] Normal [facility] NURSING PROGon 08-26-2024 NURSING PROG HNO ID: [id number] Author: MITCHELL PALOMARES, RN Service: Nursing Author Type: Registered Nurse Type: Nursing Progress Note Filed: 08/26/2024 13:00 Note Text: This nurse infused 1 ML dilute Difinity IV at 1235, another 1 ML dilute Difinity infused at 1238 as directed by Echo tach, and another 2 ML dilute Difinity infused a7 1241 as directed by the mri tech for a total of 4 ML Dilute Difinity IV injected to the Left PIV. Patient tolerated the procedure well. The PIV was removed without issue and patient was assisted from Echo table to wheelchair. Normal [facility] CBC W Auto Differential pane l (Bld)on 08-24-2024 Basophils (Bld) [#/Vol] 10*3/uL Normal <0.11 [facility] Comment on above: Order Comment: Speci men Type: BLOOD SPECIMENOrdering Facility: External Submitter Address: , , Performed By: #### 5 7021-8 ####[facility] LABCLIA [id number] [address] [place] [address] [place] Basophils/100 WBC (Bld) 0.2 % Normal [facility] Comment on above: Order Comment: Speci men Type: BLOOD SPECIMENOrdering Facility: External Submitter Address: , , Performed By: #### 5 7021-8 ####[facility] LABCLIA [id number] [address] [place] [address] [place] Differential cell count method Nom (Bld) Auto Normal [facility] Comment on above: Order Comment: Speci men Type: BLOOD SPECIMENOrdering Facility: External Submitter Address: , , Performed By: #### 5 7021-8 ####[facility]CLIA [id number] [address] [place] [address] [place] Eosinophils (Bld) [#/Vol] 0.05 10*3/uL Normal <0.46 [facility] Comment on above: Order Comment: Speci men Type: BLOOD SPECIMENOrdering Facility: External Submitter Address: , , Performed By: #### 5 7021-8 ####[facility] LABCLIA [id number] [address] [place] [address] [place] Eosinophils/100 WBC (Bld) 0.5 % Normal [facility] Comment on above: Order Comment: Speci men Type: BLOOD SPECIMENOrdering Facility: External Submitter Address: , , Performed By: #### 5 7021-8 ####[facility] LABCLIA [id number] [address] [place] [address] [place] [facility] Erythrocyte distribution width (RBC) [Ratio] 14.4 % Normal 11.5-15.0 [facility] Comment on above: Order Comment: Speci men Type: BLOOD SPECIMENOrdering Facility: External Submitter Address: , , Performed By: #### 5 7021-8 ####[facility] LABIA [id number] [address], [place] [address] [place] [address] Hematocrit (Bld) [Volume fraction] 40.2 % Normal 39.0-51.0 [facility] Comment on above: Order Comment: Speci men Type: BLOOD SPECIMENOrdering Facility: External Submitter Address: , , Performed By: #### 5 7021-8 ####[facility] LABIA [id number] [id number] [place] [address] [place] Hemoglobin (Bld) [Mass/Vol] 12.6 g/dL Low 13.0-17.0 [facility] Comment on above: Order Comment: Speci men Type: BLOOD SPECIMENOrdering Facility: External Submitter Address: , , Performed By: #### 5 7021-8 ####[facility] LABIA [id number] [address] [place] [address] [place] Immature granulocytes (Bld) [#/Vol] 0.10 10*3/uL High <0.10 [facility] Comment on above: Order Comment: Speci men Type: BLOOD SPECIMENOrdering Facility: External Submitter Address: , , Performed By: #### 5 7021-8 ####[facility] LABIA [id number] [address], [facility] [facility] Immature granulocytes/100 WBC (Bld) 0.9 % Normal [facility] Comment on above: Order Comment: Speci men Type: BLOOD SPECIMENOrdering Facility: External Submitter Address: , , Performed By: #### 5 7021-8 ####[facility] LABCLIA [id number] [address] [place] [address] [place] Lymphocytes (Bld) [#/Vol] 0.83 10*3/uL Low 1.00-4.00 [facility] Comment on above: Order Comment: Speci men Type: BLOOD SPECIMENOrdering Facility: External Submitter Address: , , Performed By: #### 5 7021-8 ####[facility] LABIA [id number] [address] [place] [address] [facility] Lymphocytes/100 WBC (Bld) 7.9 % Normal [facility] Comment on above: Order Comment: Speci men Type: BLOOD SPECIMENOrdering Facility: External Submitter Address: , , Performed By: #### 5 7021-8 ####[facility]IA [id number] [address] [place] [address] [place] MCH (RBC) [Entitic mass] 28.2 pg Normal 26.0-34.0 [facility] Comment on above: Order Comment: Speci men Type: BLOOD SPECIMENOrdering Facility: External Submitter Address: , , Performed By: #### 5 7021-8 ####[facility] LABIA [id number] [address] [place] [address] [place] MCHC (RBC) [Mass/Vol] 31.3 g/dL Normal 30.5-36.0 [facility] Comment on above: Order Comment: Speci men Type: BLOOD SPECIMENOrdering Facility: External Submitter Address: , , Performed By: #### 5 7021-8 ####[facility]IA [id number] [address] [place] [address] [place] MCV (RBC) [Entitic vol] 89.9 fL Normal 80.0-100.0 [facility] Comment on above: Order Comment: Speci men Type: BLOOD SPECIMENOrdering Facility: External Submitter Address: , , Performed By: #### 5 7021-8 ####[facility] LABCLIA [id number] [facility] [id number], [place] [address] [place] Monocytes (Bld) [#/Vol] 0.78 10*3/uL Normal <0.87 [facility] Comment on above: Order Comment: Speci men Type: BLOOD SPECIMENOrdering Facility: External Submitter Address: , , Performed By: #### 5 7021-8 ####[facility] LABCLIA [id number] [facility] [place] [id number], [place] [address] [place] Monocytes/100 WBC (Bld) 7.4 % Normal [facility] Comment on above: Order Comment: Speci men Type: BLOOD SPECIMENOrdering Facility: External Submitter Address: , , Performed By: #### 5 7021-8 ####[facility] LABCLIA [id number] [facility] [address] [place] [address] [place] Neutrophils (Bld) [#/Vol] 8.77 10*3/uL High 1.45-7.50 [facility] Comment on above: Order Comment: Speci men Type: BLOOD SPECIMENOrdering Facility: External Submitter Address: , , Performed By: #### 5 7021-8 ####[facility] LABCLIA [id number] [facility]ITALK [address] [place] [address] [place] Neutrophils/100 WBC (Bld) 83.1 % Normal [facility] Comment on above: Order Comment: Speci men Type: BLOOD SPECIMENOrdering Facility: External Submitter Address: , , Performed By: #### 5 7021-8 ####[facility] LABCLIA [id number] [facility] [address] [place] [address] [place] Nucleated RBC (Bld) [#/Vol] 10*3/uL Normal <0.01 [facility] Comment on above: Order Comment: Speci men Type: BLOOD SPECIMENOrdering Facility: External Submitter Address: , , Performed By: #### 5 7021-8 ####[facility] LABCLIA [id number] [facility] [address] [place] [address] [place] Nucleated RBC/100 WBC (Bld) [Ratio] 0.0 /100 WBC Normal [facility] Comment on above: Order Comment: Speci men Type: BLOOD SPECIMENOrdering Facility: External Submitter Address: , , Performed By: #### 5 7021-8 ####[facility] LABCLIA [id number] [address] [place] [address] [facility] Platelet mean volume (Bld) [Entitic vol] 9.4 fL Normal 9.0-12.7 [facility] Comment on above: Order Comment: Speci men Type: BLOOD SPECIMENOrdering Facility: External Submitter Address: , , Performed By: #### 5 7021-8 ####[facility]IA [id number] [address] [place] [address] [facility] [place] Platelets (Bld) [#/Vol] 252 10*3/uL Normal 150-400 [facility] Comment on above: Order Comment: Speci men Type: BLOOD SPECIMENOrdering Facility: External Submitter Address: , , Performed By: #### 5 7021-8 ####[facility] LABIA [id number] [address] [place] [address] [place] RBC (Bld) [#/Vol] 4.47 10*6/uL Normal 4.20-6.00 [facility] Comment on above: Order Comment: Speci men Type: BLOOD SPECIMENOrdering Facility: External Submitter Address: , , Performed By: #### 5 7021-8 ####[facility]IA [id number] [address] [place] [address] [place] WBC (Bld) [#/Vol] 10.55 10*3/uL Normal 3.70-11.00 [facility] Comment on above: Order Comment: Speci men Type: BLOOD SPECIMENOrdering Facility: External Submitter Address: , , Performed By: #### 5 7021-8 ####[facility] LABCLIA [id number] [facility] [address] [place] [address] [facility] Comprehensive metabolic 2000 panelon 08-24-2024 Albumin [Mass/Vol] 3.8 g/dL Low 3.9-4.9 [facility] Comment on above: Order Comment: Speci men Type: BLOOD SPECIMENOrdering Facility: External Submitter Address: , , Performed By: #### 2 4323-8 ####[facility] LABCLIA [id number] [facility] [address] [place] [address] [place] ALP [Catalytic activity/Vol] 43 U/L Normal 38-113 [facility] Comment on above: Order Comment: Speci men Type: BLOOD SPECIMENOrdering Facility: External Submitter Address: , , Performed By: #### 2 4323-8 ####[facility] LABCLIA [id number] [facility] [address] [place] [address] [facility] ALT [Catalytic activity/Vol] 15 U/L Normal 10-54 [facility] Comment on above: Order Comment: Speci men Type: BLOOD SPECIMENOrdering Facility: External Submitter Address: , , Performed By: #### 2 4323-8 ####[facility] LABCLIA [id number] [facility] [address] [place] [address] [place] Anion gap [Moles/Vol] 12 mmol/L Normal 8-15 [facility] Comment on above: Order Comment: Speci men Type: BLOOD SPECIMENOrdering Facility: External Submitter Address: , , Performed By: #### 2 4323-8 ####[facility] LABCLIA [id number] [facility] [address] [place] [address] [place] AST [Catalytic activity/Vol] 22 U/L Normal 14-40 [facility] Comment on above: Order Comment: Speci men Type: BLOOD SPECIMENOrdering Facility: External Submitter Address: , , Performed By: #### 2 4323-8 ####[facility] LABCLIA [id number] [facility] [address] [place] [address] [place] Bilirubin [Mass/Vol] 0.4 mg/dL Normal 0.2-1.3 [facility] Comment on above: Order Comment: Speci men Type: BLOOD SPECIMENOrdering Facility: External Submitter Address: , , Performed By: #### 2 4323-8 ####[facility] LABCLIA [id number] [facility] [address] [address] [place] Calcium [Mass/Vol] 9.3 mg/dL Normal 8.5-10.2 [facility] Comment on above: Order Comment: Speci men Type: BLOOD SPECIMENOrdering Facility: External Submitter Address: , , Performed By: #### 2 4323-8 ####[facility] LABCLIA [id number] [facility] [place] [id number] [place] Chloride [Moles/Vol] 89 mmol/L Low 98-107 [facility] Comment on above: Order Comment: Speci men Type: BLOOD SPECIMENOrdering Facility: External Submitter Address: , , Performed By: #### 2 4323-8 ####[facility]CLIA [id number] [facility] [address] [address] [place] CO2 [Moles/Vol] 26 mmol/L Normal 22-30 [facility] Comment on above: Order Comment: Speci men Type: BLOOD SPECIMENOrdering Facility: External Submitter Address: , , Performed By: #### 2 4323-8 ####[facility] LABCLIA [id number] [facility] [address] [place] [address] [place] Creatinine [Mass/Vol] 0.93 mg/dL Normal 0.73-1.22 [facility] Comment on above: Order Comment: Speci men Type: BLOOD SPECIMENOrdering Facility: External Submitter Address: , , Performed By: #### 2 4323-8 ####[facility] LABCLIA [id number] [address] [address] [place] Creatinine and Glomerular filtration rate.predicted panel (S/P/Bld) 88 mL/min/1.73m??? Normal >=60 [facility] Comment on above: Order Comment: Elgin egan Type: BLOOD SPECIMENOrdering Facility: External Submitter Address: , , Result Comment: Tamika mated Glomerular Filtration Rate (eGFR) is calculated using the 2020 CKD-EPI creatinine equation. This equation utilizes serum creatinine, sex, and age as parameters. The creatinine assay has traceable calibration to isotope dilution-mass spectrometry. Refer to KDIGO guidelines for clinical interpretation. In patients with unstable renal function, e.g. those with acute kidney injury, the eGFR may not accurately reflect actual GFR. Performed By: #### 2 4323-8 ####[facility] [id number] [address] [address] [place] Glucose [Mass/Vol] 88 mg/dL Normal 74-99 [facility] Comment on above: Order Comment: Elgin egan Type: BLOOD SPECIMENOrdering Facility: External Submitter Address: , , Result Comment: The [place] Diabetes Association (ADA) provides guidance for cutoff values for fasting glucose and random glucose. The ADA defines fasting as no caloric intake for at least 8 hours. Fasting plasma glucose results between 100 to 125 mg/dL indicate increased risk for diabetes (prediabetes).Fasting plasma glucose results greater than or equal to 126 mg/dL meet the criteria for diagnosis of diabetes. In the absence of unequivocal hyperglycemia, results should be confirmed by repeat testing. In a patient with classic symptoms of hyperglycemia or hyperglycemic crisis, random plasma glucose results greater than or equal to 200 mg/dL meet the criteria for diagnosis of diabetes.Reference: Standards of Medical Care in Diabetes 2016, [place] Diabetes Association. Diabetes Care. 2016.39(Suppl 1). Performed By: #### 2 4323-8 ####[facility] LABIA [id number] [address] [address] [place] Potassium [Moles/Vol] 4.4 mmol/L Normal 3.7-5.1 [facility] Comment on above: Order Comment: Speci men Type: BLOOD SPECIMENOrdering Facility: External Submitter Address: , , Performed By: #### 2 4323-8 ####[facility] LABCLIA [id number] [facility] [address] [place] [address] [place] Protein [Mass/Vol] 6.9 g/dL Normal 6.3-8.0 [facility] Comment on above: Order Comment: Speci men Type: BLOOD SPECIMENOrdering Facility: External Submitter Address: , , Performed By: #### 2 4323-8 ####[facility] LABCLIA [id number] [facility] [address] [place] [address] [place] Sodium [Moles/Vol] 127 mmol/L Low 136-144 [facility] Comment on above: Order Comment: Speci men Type: BLOOD SPECIMENOrdering Facility: External Submitter Address: , , Performed By: #### 2 4323-8 ####[facility] LABCLIA [id number] [facility] [address] [place] [address] [place] Urea nitrogen [Mass/Vol] 8 mg/dL Low 9-24 [facility] Comment on above: Order Comment: Speci men Type: BLOOD SPECIMENOrdering Facility: External Submitter Address: , , Performed By: #### 2 4323-8 ####[facility] LABCLIA [id number] [facility] [address] [place] [address] [place] Lipid 1996 panelon 5 Cholesterol [Mass/Vol] 120 mg/dL Normal <200 [facility] Comment on above: Order Comment: Speci men Type: BLOOD SPECIMENOrdering Facility: External Submitter Address: , , Result Comment: <200 mg/dL, Desirable 200-239 mg/dL, Borderline high>239 mg/dL, High Performed By: #### 2 4331-1 ####[facility] LABCLIA [id number] [facility] [place] [id number] [address] [place] Cholesterol in HDL [Mass/Vol] 55 mg/dL Normal >39 [facility] Comment on above: Order Comment: Isadorai men Type: BLOOD SPECIMENOrdering Facility: External Submitter Address: , , Result Comment: 40-5 9 mg/dL, Acceptable>59 mg/dL, High: Negative risk factor for coronary heart disease<40 mg/dL, Low: Positive risk factor for coronary heart disease Performed By: #### 2 4331-1 ####[facility] LABCLIA [id number] [email or web address] [email or web address] CAMINO HOSPITALCity-dimensional network logo [address] [place] [address] [place] Cholesterol in LDL [Mass/Vol] 48 mg/dL Normal <100 [facility] Comment on above: Order Comment: Isadorai men Type: BLOOD SPECIMENOrdering Facility: External Submitter Address: , , Result Comment: <100 mg/dL, Optimal 100-129 mg/dL, Near optimal/above optimal 130-159 mg/dL, Borderline high 160-189 mg/dL, High>189 mg/dL, Very highSecondary prevention optimal LDL Cholesterol levels are recommended to be < 70 mg/dL Performed By: #### 2 4331-1 ####[facility] LABCLIA [id number] [email or web address] [address] [place] [address] [place] Cholesterol in LDL/Cholesterol in HDL [Mass ratio] 0.87 {ratio} Normal <2.54 [facility] Comment on above: Order Comment: Elgin jignesh Type: BLOOD SPECIMENOrdering Facility: External Submitter Address: , , Result Comment: Refe rence:1. National Cholesterol Education Program ATP III Guideline At-A-Glance Quick Desk Reference: National Heart, Lung, and Blood [place]. National Institutes of Health. 2001: NIH Publication No. 01-3305.2. An International Atherosclerosis Society position paper: global recommendations for the management of dyslipidemia: executive summary, Atherosclerosis. 2014: 232(2):410-413. Performed By: #### 2 4331-1 ####[facility] LABCLIA [id number] [email or web address] [address] [place] [address] [place] Cholesterol in VLDL [Mass/Vol] 17 mg/dL Normal <30 [facility] Comment on above: Order Comment: Speci men Type: BLOOD SPECIMENOrdering Facility: External Submitter Address: , , Performed By: #### 2 4331-1 ####[facility] LABCLIA [id number] [address] [place] [address] [facility] Cholesterol non HDL [Mass/Vol] 65 mg/dL Normal <130 [facility] Comment on above: Order Comment: Speci men Type: BLOOD SPECIMENOrdering Facility: External Submitter Address: , , Result Comment: <130 mg/dL, Optimal 130-159 mg/dL, Near optimal/above optimal 160-189 mg/dL, Borderline high 190-219 mg/dL, High>219 mg/dL, Very highSecondary prevention optimal non HDL Cholesterol levels are recommended to be <100 mg/dL Performed By: #### 2 4331-1 ####[facility] LABCLIA [id number] [address] [place] [address] [facility] Cholesterol.total/Chol esterol in HDL [Mass ratio] 2.18 {ratio} Normal <5.10 [facility] Comment on above: Order Comment: Speci men Type: BLOOD SPECIMENOrdering Facility: External Submitter Address: , , Performed By: #### 2 4331-1 ####[facility] LABCLIA [id number] [address] [place] [address] [facility] FASTING TIME Unknown Normal [facility] Comment on above: Order Comment: Speci men Type: BLOOD SPECIMENOrdering Facility: External Submitter Address: , , Performed By: #### 2 4331-1 ####[facility] LABCLIA [id number] [address] [place] [address] [place] Triglyceride [Mass/Vol] 84 mg/dL Normal <150 [facility] Comment on above: Order Comment: Speci men Type: BLOOD SPECIMENOrdering Facility: External Submitter Address: , , Result Comment: <150 mg/dL, Normal 150-199 mg/dL, Borderline high 200-499 mg/dL, High>499 mg/dL, Very high Performed By: #### 2 4331-1 ####[facility] LABCLIA [id number] [address] [place] [address] [place] CBC W Auto Differential pane l (Bld)on 08-18-2024 Basophils (Bld) [#/Vol] 0.06 10*3/uL Normal <0.11 [facility] Comment on above: Order Comment: Speci men Type: BLOOD SPECIMENOrdering Facility: External Submitter Address: , , Performed By: #### 5 7021-8 ####[facility] LABCLIA [id number] [address] [place] [address] [place] [facility] Basophils/100 WBC (Bld) 0.7 % Normal [facility] Comment on above: Order Comment: Speci men Type: BLOOD SPECIMENOrdering Facility: External Submitter Address: , , Performed By: #### 5 7021-8 ####[facility] LABCLIA [id number] [address] [place] [address] [facility] Differential cell count method Nom (Bld) Auto Normal [facility] Comment on above: Order Comment: Speci men Type: BLOOD SPECIMENOrdering Facility: External Submitter Address: , , Performed By: #### 5 7021-8 ####[facility]CLIA [id number] [address] [place] [address] [facility] [place] Eosinophils (Bld) [#/Vol] 0.44 10*3/uL Normal <0.46 [facility] Comment on above: Order Comment: Speci men Type: BLOOD SPECIMENOrdering Facility: External Submitter Address: , , Performed By: #### 5 7021-8 ####[facility]CLIA [id number] [address] [place] [address] [facility] Eosinophils/100 WBC (Bld) 4.8 % Normal [facility] Comment on above: Order Comment: Speci men Type: BLOOD SPECIMENOrdering Facility: External Submitter Address: , , Performed By: #### 5 7021-8 ####[facility] LABCLIA [id number] [address] [place] [address] [place] Erythrocyte distribution width (RBC) [Ratio] 14.7 % Normal 11.5-15.0 [facility] Comment on above: Order Comment: Speci men Type: BLOOD SPECIMENOrdering Facility: External Submitter Address: , , Performed By: #### 5 7021-8 ####[facility] LABCLIA [id number] [address], [address] Hematocrit (Bld) [Volume fraction] 42.7 % Normal 39.0-51.0 [facility] Comment on above: Order Comment: Speci men Type: BLOOD SPECIMENOrdering Facility: External Submitter Address: , , Performed By: #### 5 7021-8 ####[facility] [id number] [address] [place] Hemoglobin (Bld) [Mass/Vol] 12.8 g/dL Low 13.0-17.0 [facility] Comment on above: Order Comment: Speci men Type: BLOOD SPECIMENOrdering Facility: External Submitter Address: , , Performed By: #### 5 7021-8 ####[facility]IA [id number] [address], [address] [facility] Immature granulocytes (Bld) [#/Vol] 0.04 10*3/uL Normal <0.10 [facility] Comment on above: Order Comment: Speci men Type: BLOOD SPECIMENOrdering Facility: External Submitter Address: , , Performed By: #### 5 7021-8 ####[facility]IA [id number] [address], [facility] Immature granulocytes/100 WBC (Bld) 0.4 % Normal [facility] Comment on above: Order Comment: Speci men Type: BLOOD SPECIMENOrdering Facility: External Submitter Address: , , Performed By: #### 5 7021-8 ####[facility]CLIA [id number] [address] [place] [address] [place] Lymphocytes (Bld) [#/Vol] 1.67 10*3/uL Normal 1.00-4.00 [facility] Comment on above: Order Comment: Speci men Type: BLOOD SPECIMENOrdering Facility: External Submitter Address: , , Performed By: #### 5 7021-8 ####[facility] LABCLIA [id number] [address] [address] [facility] Lymphocytes/100 WBC (Bld) 18.2 % Normal [facility] Comment on above: Order Comment: Speci men Type: BLOOD SPECIMENOrdering Facility: External Submitter Address: , , Performed By: #### 5 7021-8 ####[facility] [id number] [address] [address] [place] MCH (RBC) [Entitic mass] 27.8 pg Normal 26.0-34.0 [facility] Comment on above: Order Comment: Speci men Type: BLOOD SPECIMENOrdering Facility: External Submitter Address: , , Performed By: #### 5 7021-8 ####[facility]CLIA [id number] [address] [address] [place] MCHC (RBC) [Mass/Vol] 30.0 g/dL Low 30.5-36.0 [facility] Comment on above: Order Comment: Speci men Type: BLOOD SPECIMENOrdering Facility: External Submitter Address: , , Performed By: #### 5 7021-8 ####[facility]IA [id number] [address] [address] [place] MCV (RBC) [Entitic vol] 92.6 fL Normal 80.0-100.0 [facility] Comment on above: Order Comment: Speci men Type: BLOOD SPECIMENOrdering Facility: External Submitter Address: , , Performed By: #### 5 7021-8 ####[facility] LABCLIA [id number] [facility] [address] [place] [address] [place] Monocytes (Bld) [#/Vol] 1.16 10*3/uL High <0.87 [facility] Comment on above: Order Comment: Speci men Type: BLOOD SPECIMENOrdering Facility: External Submitter Address: , , Performed By: #### 5 7021-8 ####[facility]CL[facility] [id number] [facility] [address] [place] [address] [place] Monocytes/100 WBC (Bld) 12.6 % Normal [facility] Comment on above: Order Comment: Speci men Type: BLOOD SPECIMENOrdering Facility: External Submitter Address: , , Performed By: #### 5 7021-8 ####[facility] LABCLIA [id number] [address] [place] [address] [place] Neutrophils (Bld) [#/Vol] 5.80 10*3/uL Normal 1.45-7.50 [facility] Comment on above: Order Comment: Speci men Type: BLOOD SPECIMENOrdering Facility: External Submitter Address: , , Performed By: #### 5 7021-8 ####[facility]CLIA [id number] [facility] [address] [place] [address] [place] Neutrophils/100 WBC (Bld) 63.3 % Normal [facility] Comment on above: Order Comment: Speci men Type: BLOOD SPECIMENOrdering Facility: External Submitter Address: , , Performed By: #### 5 7021-8 ####[facility]CL[facility] [id number] [facility] [address] [place] [address] [place] Nucleated RBC (Bld) [#/Vol] 10*3/uL Normal <0.01 [facility] Comment on above: Order Comment: Speci men Type: BLOOD SPECIMENOrdering Facility: External Submitter Address: , , Performed By: #### 5 7021-8 ####[facility]CLIA [id number] [address] [place] [address] [place] Nucleated RBC/100 WBC (Bld) [Ratio] 0.0 /100 WBC Normal [facility] Comment on above: Order Comment: Speci men Type: BLOOD SPECIMENOrdering Facility: External Submitter Address: , , Performed By: #### 5 7021-8 ####[facility] [id number] [address] [place] [address] [place] Platelet mean volume (Bld) [Entitic vol] 9.3 fL Normal 9.0-12.7 [facility] Comment on above: Order Comment: Speci men Type: BLOOD SPECIMENOrdering Facility: External Submitter Address: , , Performed By: #### 5 7021-8 ####[facility] [id number] [address] [place] [address] [place] Platelets (Bld) [#/Vol] 243 10*3/uL Normal 150-400 [facility] Comment on above: Order Comment: Speci men Type: BLOOD SPECIMENOrdering Facility: External Submitter Address: , , Performed By: #### 5 7021-8 ####[facility] [id number] [address] [place] [address] [place] RBC (Bld) [#/Vol] 4.61 10*6/uL Normal 4.20-6.00 [facility] Comment on above: Order Comment: Speci men Type: BLOOD SPECIMENOrdering Facility: External Submitter Address: , , Performed By: #### 5 7021-8 ####[facility] [id number] [address] [place] [address] [place] WBC (Bld) [#/Vol] 9.17 10*3/uL Normal 3.70-11.00 [facility] Comment on above: Order Comment: Speci men Type: BLOOD SPECIMENOrdering Facility: External Submitter Address: , , Performed By: #### 5 7021-8 ####[facility] [id number] [facility] [address] [place] [address] [place] Comprehensive metabolic 2000 panelon 08-18-2024 Albumin [Mass/Vol] 3.6 g/dL Low 3.9-4.9 [facility] Comment on above: Order Comment: Speci men Type: BLOOD SPECIMENOrdering Facility: External Submitter Address: , , Performed By: #### 2 4323-8 ####[facility] [id number] [facility] [address] [place] [address] [place] ALP [Catalytic activity/Vol] 47 U/L Normal 38-113 [facility] Comment on above: Order Comment: Speci men Type: BLOOD SPECIMENOrdering Facility: External Submitter Address: , , Performed By: #### 2 4323-8 ####[facility] [id number] [facility] [address] [place] [address] [place] ALT [Catalytic activity/Vol] 11 U/L Normal 10-54 [facility] Comment on above: Order Comment: Speci men Type: BLOOD SPECIMENOrdering Facility: External Submitter Address: , , Performed By: #### 2 4323-8 ####[facility] [id number] [facility] [address] [place] [address] [place] Anion gap [Moles/Vol] 11 mmol/L Normal 8-15 [facility] Comment on above: Order Comment: Speci men Type: BLOOD SPECIMENOrdering Facility: External Submitter Address: , , Performed By: #### 2 4323-8 ####[facility] [id number] [facility] [address] [place] [address] [place] AST [Catalytic activity/Vol] 22 U/L Normal 14-40 [facility] Comment on above: Order Comment: Speci men Type: BLOOD SPECIMENOrdering Facility: External Submitter Address: , , Performed By: #### 2 4323-8 ####[facility] [id number] [facility] [address] [place] [address] [place] Bilirubin [Mass/Vol] 0.2 mg/dL Normal 0.2-1.3 [facility] Comment on above: Order Comment: Speci men Type: BLOOD SPECIMENOrdering Facility: External Submitter Address: , , Performed By: #### 2 4323-8 ####[facility] [id number] [facility] [address] [place] [address] [place] Calcium [Mass/Vol] 9.2 mg/dL Normal 8.5-10.2 [facility] Comment on above: Order Comment: Speci men Type: BLOOD SPECIMENOrdering Facility: External Submitter Address: , , Performed By: #### 2 4323-8 ####[facility] [id number] [facility] [address] [address] [place] Chloride [Moles/Vol] 95 mmol/L Low 98-107 [facility] Comment on above: Order Comment: Speci men Type: BLOOD SPECIMENOrdering Facility: External Submitter Address: , , Performed By: #### 2 4323-8 ####[facility] [id number] [facility] [address] [address] [place] CO2 [Moles/Vol] 29 mmol/L Normal 22-30 [facility] Comment on above: Order Comment: Speci men Type: BLOOD SPECIMENOrdering Facility: External Submitter Address: , , Performed By: #### 2 4323-8 ####[facility] [id number] [facility] [address] [place] [address] [place] Creatinine [Mass/Vol] 0.89 mg/dL Normal 0.73-1.22 [facility] Comment on above: Order Comment: Speci men Type: BLOOD SPECIMENOrdering Facility: External Submitter Address: , , Performed By: #### 2 4323-8 ####[facility] [id number] [address] [address] [place] Creatinine and Glomerular filtration rate.predicted panel (S/P/Bld) 92 mL/min/1.73m??? Normal >=60 [facility] Comment on above: Order Comment: Elgin egan Type: BLOOD SPECIMENOrdering Facility: External Submitter Address: , , Result Comment: Tamika mated Glomerular Filtration Rate (eGFR) is calculated using the 2020 CKD-EPI creatinine equation. This equation utilizes serum creatinine, sex, and age as parameters. The creatinine assay has traceable calibration to isotope dilution-mass spectrometry. Refer to KDIGO guidelines for clinical interpretation. In patients with unstable renal function, e.g. those with acute kidney injury, the eGFR may not accurately reflect actual GFR. Performed By: #### 2 4323-8 ####[facility] [id number] [address] [address] [place] Glucose [Mass/Vol] 65 mg/dL Low 74-99 [facility] Comment on above: Order Comment: Elgin egan Type: BLOOD SPECIMENOrdering Facility: External Submitter Address: , , Result Comment: The [place] Diabetes Association (ADA) provides guidance for cutoff values for fasting glucose and random glucose. The ADA defines fasting as no caloric intake for at least 8 hours. Fasting plasma glucose results between 100 to 125 mg/dL indicate increased risk for diabetes (prediabetes).Fasting plasma glucose results greater than or equal to 126 mg/dL meet the criteria for diagnosis of diabetes. In the absence of unequivocal hyperglycemia, results should be confirmed by repeat testing. In a patient with classic symptoms of hyperglycemia or hyperglycemic crisis, random plasma glucose results greater than or equal to 200 mg/dL meet the criteria for diagnosis of diabetes.Reference: Standards of Medical Care in Diabetes 2016, [place] [employer]. Diabetes Care. 2016.39(Suppl 1). Performed By: #### 2 4323-8 ####[facility] [id number] [address] [address] [place] Potassium [Moles/Vol] 4.0 mmol/L Normal 3.7-5.1 [facility] Comment on above: Order Comment: Speci men Type: BLOOD SPECIMENOrdering Facility: External Submitter Address: , , Performed By: #### 2 4323-8 ####[facility] [id number] [address] [place] [address] [place] Protein [Mass/Vol] 6.9 g/dL Normal 6.3-8.0 [facility] Comment on above: Order Comment: Speci men Type: BLOOD SPECIMENOrdering Facility: External Submitter Address: , , Performed By: #### 2 4323-8 ####[facility] [id number] [address] [place] [address] [place] Sodium [Moles/Vol] 135 mmol/L Low 136-144 [facility] Comment on above: Order Comment: Speci men Type: BLOOD SPECIMENOrdering Facility: External Submitter Address: , , Performed By: #### 2 4323-8 ####[facility] [id number] [address] [place] [address] [place] Urea nitrogen [Mass/Vol] 4 mg/dL Low 9-24 [facility] Comment on above: Order Comment: Speci men Type: BLOOD SPECIMENOrdering Facility: External Submitter Address: , , Performed By: #### 2 4323-8 ####[facility] [id number] [address] [place] [address] [place] CNOVon 08-17-2024 CNOV Normal [facility] CBC W Auto Differential pane l (Bld)on 08-10-2024 Basophils (Bld) [#/Vol] 0.05 10*3/uL Normal <0.11 [facility] Comment on above: Order Comment: Speci men Type: BLOOD SPECIMENOrdering Facility: External Submitter Address: , , Performed By: #### 5 7021-8 ####[facility] [id number] [address] [place] [address] [place] Basophils/100 WBC (Bld) 0.5 % Normal [facility] Comment on above: Order Comment: Speci men Type: BLOOD SPECIMENOrdering Facility: External Submitter Address: , , Performed By: #### 5 7021-8 ####[facility] [id number] [address] [place] [address] [place] Differential cell count method Nom (Bld) Auto Normal [facility] Comment on above: Order Comment: Speci men Type: BLOOD SPECIMENOrdering Facility: External Submitter Address: , , Performed By: #### 5 7021-8 ####[facility] [id number] [address], [facility] [place] Eosinophils (Bld) [#/Vol] 0.37 10*3/uL Normal <0.46 [facility] Comment on above: Order Comment: Speci men Type: BLOOD SPECIMENOrdering Facility: External Submitter Address: , , Performed By: #### 5 7021-8 ####[facility] [id number] [address] [place] [address] [place] Eosinophils/100 WBC (Bld) 3.7 % Normal [facility] Comment on above: Order Comment: Speci men Type: BLOOD SPECIMENOrdering Facility: External Submitter Address: , , Performed By: #### 5 7021-8 ####[facility] [id number] [address] [place] [address] [place] Erythrocyte distribution width (RBC) [Ratio] 15.0 % Normal 11.5-15.0 [facility] Comment on above: Order Comment: Speci men Type: BLOOD SPECIMENOrdering Facility: External Submitter Address: , , Performed By: #### 5 7021-8 ####[facility] [id number] [address] [place] [address] [place] Hematocrit (Bld) [Volume fraction] 40.2 % Normal 39.0-51.0 [facility] Comment on above: Order Comment: Speci men Type: BLOOD SPECIMENOrdering Facility: External Submitter Address: , , Performed By: #### 5 7021-8 ####[facility] [id number] [address] [place] [address] [place] Hemoglobin (Bld) [Mass/Vol] 12.3 g/dL Low 13.0-17.0 [facility] Comment on above: Order Comment: Speci men Type: BLOOD SPECIMENOrdering Facility: External Submitter Address: , , Performed By: #### 5 7021-8 ####[facility] [id number] [address] [place] [address] [place] Immature granulocytes (Bld) [#/Vol] 0.08 10*3/uL Normal <0.10 [facility] Comment on above: Order Comment: Speci men Type: BLOOD SPECIMENOrdering Facility: External Submitter Address: , , Performed By: #### 5 7021-8 ####[facility] [id number] [address] [place] [address] [place] Immature granulocytes/100 WBC (Bld) 0.8 % Normal [facility] Comment on above: Order Comment: Speci men Type: BLOOD SPECIMENOrdering Facility: External Submitter Address: , , Performed By: #### 5 7021-8 ####[facility] [id number] [address] [place] [address] [place] Lymphocytes (Bld) [#/Vol] 1.66 10*3/uL Normal 1.00-4.00 [facility] Comment on above: Order Comment: Speci men Type: BLOOD SPECIMENOrdering Facility: External Submitter Address: , , Performed By: #### 5 7021-8 ####[facility] [id number] [address] [place] [address] [place] Lymphocytes/100 WBC (Bld) 16.8 % Normal [facility] Comment on above: Order Comment: Speci men Type: BLOOD SPECIMENOrdering Facility: External Submitter Address: , , Performed By: #### 5 7021-8 ####[facility] [id number] [address] [place] [address] [facility] MCH (RBC) [Entitic mass] 27.5 pg Normal 26.0-34.0 [facility] Comment on above: Order Comment: Speci men Type: BLOOD SPECIMENOrdering Facility: External Submitter Address: , , Performed By: #### 5 7021-8 ####[facility] [id number] [address] [place] [address] [place] MCHC (RBC) [Mass/Vol] 30.6 g/dL Normal 30.5-36.0 [facility] Comment on above: Order Comment: Speci men Type: BLOOD SPECIMENOrdering Facility: External Submitter Address: , , Performed By: #### 5 7021-8 ####[facility] [id number] [address] [place] [address] [place] MCV (RBC) [Entitic vol] 89.7 fL Normal 80.0-100.0 [facility] Comment on above: Order Comment: Speci men Type: BLOOD SPECIMENOrdering Facility: External Submitter Address: , , Performed By: #### 5 7021-8 ####[facility] [id number] [address] [place] [address] [place] Monocytes (Bld) [#/Vol] 1.21 10*3/uL High <0.87 [facility] Comment on above: Order Comment: Speci men Type: BLOOD SPECIMENOrdering Facility: External Submitter Address: , , Performed By: #### 5 7021-8 ####[facility] [id number] [address] [place] [address] [place] Monocytes/100 WBC (Bld) 12.2 % Normal [facility] Comment on above: Order Comment: Speci men Type: BLOOD SPECIMENOrdering Facility: External Submitter Address: , , Performed By: #### 5 7021-8 ####[facility] [id number] [address] [place] [address] [place] Neutrophils (Bld) [#/Vol] 6.53 10*3/uL Normal 1.45-7.50 [facility] Comment on above: Order Comment: Speci men Type: BLOOD SPECIMENOrdering Facility: External Submitter Address: , , Performed By: #### 5 7021-8 ####[facility] [id number] [address] [place] [address] [place] Neutrophils/100 WBC (Bld) 66.0 % Normal [facility] Comment on above: Order Comment: Speci men Type: BLOOD SPECIMENOrdering Facility: External Submitter Address: , , Performed By: #### 5 7021-8 ####[facility] [id number] [address] [place] [address] [place] Nucleated RBC (Bld) [#/Vol] 10*3/uL Normal <0.01 [facility] Comment on above: Order Comment: Speci men Type: BLOOD SPECIMENOrdering Facility: External Submitter Address: , , Performed By: #### 5 7021-8 ####[facility] [id number] [address] [place] [address] [facility] [place] Nucleated RBC/100 WBC (Bld) [Ratio] 0.0 /100 WBC Normal [facility] Comment on above: Order Comment: Speci men Type: BLOOD SPECIMENOrdering Facility: External Submitter Address: , , Performed By: #### 5 7021-8 ####[facility] [id number] [address] [place] [address] [facility] [place] Platelet mean volume (Bld) [Entitic vol] 9.4 fL Normal 9.0-12.7 [facility] Comment on above: Order Comment: Speci men Type: BLOOD SPECIMENOrdering Facility: External Submitter Address: , , Performed By: #### 5 7021-8 ####[facility] [id number] [address] [place] [address] [facility] [place] Platelets (Bld) [#/Vol] 226 10*3/uL Normal 150-400 [facility] Comment on above: Order Comment: Speci men Type: BLOOD SPECIMENOrdering Facility: External Submitter Address: , , Performed By: #### 5 7021-8 ####[facility] [id number] [address] [place] [address] [place] RBC (Bld) [#/Vol] 4.48 10*6/uL Normal 4.20-6.00 [facility] Comment on above: Order Comment: Speci men Type: BLOOD SPECIMENOrdering Facility: External Submitter Address: , , Performed By: #### 5 7021-8 ####[facility] [id number] [address] [place] [address] [place] WBC (Bld) [#/Vol] 9.90 10*3/uL Normal 3.70-11.00 [facility] Comment on above: Order Comment: Speci men Type: BLOOD SPECIMENOrdering Facility: External Submitter Address: , , Performed By: #### 5 7021-8 ####[facility] [id number] [address] [place] [address] [place] Comprehensive metabolic 2000 panelon 08-10-2024 Albumin [Mass/Vol] 3.5 g/dL Low 3.9-4.9 [facility] Comment on above: Order Comment: Speci men Type: BLOOD SPECIMENOrdering Facility: External Submitter Address: , , Performed By: #### 2 4323-8 ####[facility] [id number] [address] [place] [address] [place] ALP [Catalytic activity/Vol] 52 U/L Normal 38-113 [facility] Comment on above: Order Comment: Speci men Type: BLOOD SPECIMENOrdering Facility: External Submitter Address: , , Performed By: #### 2 4323-8 ####[facility] [id number] [facility] [address] [place] [address] [place] ALT [Catalytic activity/Vol] 12 U/L Normal 10-54 [facility] Comment on above: Order Comment: Speci men Type: BLOOD SPECIMENOrdering Facility: External Submitter Address: , , Performed By: #### 2 4323-8 ####[facility] [id number] [facility] [address] [place] [address] [place] Anion gap [Moles/Vol] 14 mmol/L Normal 8-15 [facility] Comment on above: Order Comment: Speci men Type: BLOOD SPECIMENOrdering Facility: External Submitter Address: , , Performed By: #### 2 4323-8 ####[facility] [id number] [facility] [address] [place] [address] [place] AST [Catalytic activity/Vol] 25 U/L Normal 14-40 [facility] Comment on above: Order Comment: Speci men Type: BLOOD SPECIMENOrdering Facility: External Submitter Address: , , Performed By: #### 2 4323-8 ####[facility] [id number] [facility] [address] [place] [address] [place] Bilirubin [Mass/Vol] 0.4 mg/dL Normal 0.2-1.3 [facility] Comment on above: Order Comment: Speci men Type: BLOOD SPECIMENOrdering Facility: External Submitter Address: , , Performed By: #### 2 4323-8 ####[facility] [id number] [facility] [address] [place] [address] [place] Calcium [Mass/Vol] 8.7 mg/dL Normal 8.5-10.2 [facility] Comment on above: Order Comment: Speci men Type: BLOOD SPECIMENOrdering Facility: External Submitter Address: , , Performed By: #### 2 4323-8 ####[facility] [id number] [address] [place] [address] [place] Chloride [Moles/Vol] 91 mmol/L Low 98-107 [facility] Comment on above: Order Comment: Speci men Type: BLOOD SPECIMENOrdering Facility: External Submitter Address: , , Performed By: #### 2 4323-8 ####[facility] [id number] [address] [place] [address] [place] CO2 [Moles/Vol] 24 mmol/L Normal 22-30 [facility] Comment on above: Order Comment: Speci men Type: BLOOD SPECIMENOrdering Facility: External Submitter Address: , , Performed By: #### 2 4323-8 ####[facility] [id number] [address] [address] [facility] Creatinine [Mass/Vol] 0.93 mg/dL Normal 0.73-1.22 [facility] Comment on above: Order Comment: Isadorai jignesh Type: BLOOD SPECIMENOrdering Facility: External Submitter Address: , , Performed By: #### 2 4323-8 ####[facility] [id number] [address] [place] [address] [facility] Creatinine and Glomerular filtration rate.predicted panel (S/P/Bld) 88 mL/min/1.73m??? Normal >=60 [facility] Comment on above: Order Comment: Speci men Type: BLOOD SPECIMENOrdering Facility: External Submitter Address: , , Result Comment: Tamika mated Glomerular Filtration Rate (eGFR) is calculated using the 2020 CKD-EPI creatinine equation. This equation utilizes serum creatinine, sex, and age as parameters. The creatinine assay has traceable calibration to isotope dilution-mass spectrometry. Refer to KDIGO guidelines for clinical interpretation. In patients with unstable renal function, e.g. those with acute kidney injury, the eGFR may not accurately reflect actual GFR. Performed By: #### 2 4323-8 ####[facility] [id number] [address] [address] [place] Glucose [Mass/Vol] 98 mg/dL Normal 74-99 [facility] Comment on above: Order Comment: Speci men Type: BLOOD SPECIMENOrdering Facility: External Submitter Address: , , Result Comment: The [place] Diabetes Association (ADA) provides guidance for cutoff values for fasting glucose and random glucose. The ADA defines fasting as no caloric intake for at least 8 hours. Fasting plasma glucose results between 100 to 125 mg/dL indicate increased risk for diabetes (prediabetes).Fasting plasma glucose results greater than or equal to 126 mg/dL meet the criteria for diagnosis of diabetes. In the absence of unequivocal hyperglycemia, results should be confirmed by repeat testing. In a patient with classic symptoms of hyperglycemia or hyperglycemic crisis, random plasma glucose results greater than or equal to 200 mg/dL meet the criteria for diagnosis of diabetes.Reference: Standards of Medical Care in Diabetes 2016, [place] [employer]. Diabetes Care. 2016.39(Suppl 1). Performed By: #### 2 4323-8 ####[facility] [id number] [address] [address] [place] Potassium [Moles/Vol] 3.7 mmol/L Normal 3.7-5.1 [facility] Comment on above: Order Comment: Speci men Type: BLOOD SPECIMENOrdering Facility: External Submitter Address: , , Performed By: #### 2 4323-8 ####[facility] [id number] [address] [address] [place] Protein [Mass/Vol] 6.8 g/dL Normal 6.3-8.0 [facility] Comment on above: Order Comment: Speci men Type: BLOOD SPECIMENOrdering Facility: External Submitter Address: , , Performed By: #### 2 4323-8 ####[facility] [id number] [address] [address] [place] Sodium [Moles/Vol] 129 mmol/L Low 136-144 [facility] Comment on above: Order Comment: Speci men Type: BLOOD SPECIMENOrdering Facility: External Submitter Address: , , Performed By: #### 2 4323-8 ####[facility] [id number] [address] Urea nitrogen [Mass/Vol] 6 mg/dL Low 9-24 [facility] Comment on above: Order Comment: Speci men Type: BLOOD SPECIMENOrdering Facility: External Submitter Address: , , Performed By: #### 2 4323-8 ####[facility] [id number] [address] Yamileth 08-05-2024 DIMITRI Telephone (AGFAMPLE) ----- MARS PETERSON ([id number]) 1955 M [facility] Date Time Provider Department 08/05/24 ALMA GILL During your visit today, we recorded the following information about you: Priya Pedersen MA 08/05/2024 1:38 PM Signed [place] placed it on the signing tray VANNA Rojas Julie, MA 08/06/2024 3:09 PM Signed Faxed Priya Pedersen MA Allergies As of Date: 08/05/2024 Noted Allergy Reaction ANIMAL DANDER 08/21/2022 14 - Other: See Comments Comments: Anything with fur SEASONAL ALLERGIES 08/21/2022 14 - Other: See Comments Comments: Stuffy nose, headaches Date Reviewed: 07/14/2024 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 - gabapentin (NEURONTIN) 300 mg capsule TAKE 2 CAPSULES BY MOUTH EVERY MORNING AND 3 CAPSULES AT BEDTIME FOR 30 DAYS. Strength: 300 mg - hydrOXYzine HCl (ATARAX) 25 mg tablet Take 2 tablets by mouth two times a day. - budesonide (PULMICORT) 0.5 mg/2 mL nebulizer solution Use 2 mL via nebulizer two times a day. - ipratropium-albuterol (DUONEB) 0.5 mg-3 mg(2.5 mg base)/3 mL nebu Inhale 3 mL as instructed every 4 hours while awake. - metoprolol succinate ER (TOPROL XL) 25 mg 24 hr tablet Take 1 tablet by mouth every afternoon. - clopidogrel (PLAVIX) 75 mg tablet Take 1 tablet by mouth once daily. - pantoprazole DR (PROTONIX) 40 mg tablet Take 1 tablet by mouth once daily. - predniSONE (DELTASONE) 10 mg tablet Take 2 tablets by mouth once daily for 21 days, THEN 1.5 tablets once daily for 21 days, THEN 1 tablet once daily for 21 days, THEN 0.5 tablets once daily for 21 days. - mycophenolate mofetil (CELLCEPT) 250 mg capsule Take 1 capsule by mouth two times a day for 14 days, THEN 2 capsules two times a day for 14 days, THEN 4 capsules two times a day for 14 days, THEN 6 capsules two times a day. - rosuvastatin (CRESTOR) 20 mg tablet Take 1 tablet by mouth daily at bedtime. - lisinopril 2.5 mg tablet Take 1 tablet by mouth two times a day. Hold if SBP less than 110 - ezetimibe (ZETIA) 10 mg tablet Take 1 tablet by mouth once daily. - guaiFENesin (MUCINEX) 600 mg 12 hr tablet Take 1 tablet by mouth two times a day as needed for cold/allergy symptoms. - traZODone (DESYREL) 100 mg tablet TAKE 2 TABLETS BY MOUTH DAILY AT BEDTIME - furosemide (LASIX) 40 mg tablet Take 1 tablet by mouth three times a week. - escitalopram oxalate (LEXAPRO) 20 mg tablet Take 1 tablet by mouth once daily. - colestipol (COLESTID) 1 gram tablet Take 1 tablet by mouth two times a day. - OXYGEN, HOME THERAPY, 3 L/min by Nasal Cannula route as directed. - fluticasone (FLONASE) 50 mcg/actuation nasal spray spray 1 spray into each nostril every day - nitroglycerin sublingual (NITROSTAT) 0.4 mg SL tablet Dissolve 1 tablet under the tongue every 5 minutes as needed for chest pain. - albuterol sulfate 90 mcg/actuation aebs Inhale 1-2 Puffs as instructed every 4 hours as needed for wheezing/shortness of breath. - Lactobacillus acidophilus (PROBIOTIC) 10 billion cell cap Take 1 capsule by mouth once daily. - acetaminophen (TYLENOL EXTRA STRENGTH) 500 mg tablet Take 2 tablets by mouth every 8 hours as needed for pain. FOR PAIN. - Zinc 50 mg tab Take 50 mg by mouth once daily. - aspirin, enteric coated (ASPIRIN, ENTERIC COATED) 81 mg EC tablet Take 81 mg by mouth once daily. - multivit-min/folic/vit K/lycop (ONE-A-DAY MEN'S MULTIVITAMIN ORAL) Take by mouth once daily. 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 Normal [facility] CBC W Auto Differential pane l (Bld)on 08-03-2024 Basophils (Bld) [#/Vol] 0.04 10*3/uL Normal <0.11 [facility] Comment on above: Order Comment: Speci men Type: BLOOD SPECIMENOrdering Facility: External Submitter Address: , , Performed By: #### 5 7021-8 ####[facility] [id number] [place] [address] [place] Basophils/100 WBC (Bld) 0.3 % Normal [facility] Comment on above: Order Comment: Speci men Type: BLOOD SPECIMENOrdering Facility: External Submitter Address: , , Performed By: #### 5 7021-8 ####[facility]CL[facility] [id number] [place] [address] [place] Differential cell count method Nom (Bld) Auto Normal [facility] Comment on above: Order Comment: Speci men Type: BLOOD SPECIMENOrdering Facility: External Submitter Address: , , Performed By: #### 5 7021-8 ####[facility]CL[facility] [id number] [address] [address] [place] Eosinophils (Bld) [#/Vol] 0.34 10*3/uL Normal <0.46 [facility] Comment on above: Order Comment: Speci men Type: BLOOD SPECIMENOrdering Facility: External Submitter Address: , , Performed By: #### 5 7021-8 ####[facility] [id number] [address] [place] [address] [place] Eosinophils/100 WBC (Bld) 2.9 % Normal [facility] Comment on above: Order Comment: Speci men Type: BLOOD SPECIMENOrdering Facility: External Submitter Address: , , Performed By: #### 5 7021-8 ####[facility] [id number] [address], [address] [place] Erythrocyte distribution width (RBC) [Ratio] 15.3 % High 11.5-15.0 [facility] Comment on above: Order Comment: Speci men Type: BLOOD SPECIMENOrdering Facility: External Submitter Address: , , Performed By: #### 5 7021-8 ####[facility] [id number] [address] [place] [address] [place] Hematocrit (Bld) [Volume fraction] 41.4 % Normal 39.0-51.0 [facility] Comment on above: Order Comment: Speci men Type: BLOOD SPECIMENOrdering Facility: External Submitter Address: , , Performed By: #### 5 7021-8 ####[facility]CL[facility] [id number] [address] [place] [address] [place] Hemoglobin (Bld) [Mass/Vol] 12.6 g/dL Low 13.0-17.0 [facility] Comment on above: Order Comment: Speci men Type: BLOOD SPECIMENOrdering Facility: External Submitter Address: , , Performed By: #### 5 7021-8 ####[facility] [id number] [address] [place] [address] [place] Immature granulocytes (Bld) [#/Vol] 0.11 10*3/uL High <0.10 [facility] Comment on above: Order Comment: Speci men Type: BLOOD SPECIMENOrdering Facility: External Submitter Address: , , Performed By: #### 5 7021-8 ####[facility] [id number] [address] [place] [address] [facility] Immature granulocytes/100 WBC (Bld) 0.9 % Normal [facility] Comment on above: Order Comment: Speci men Type: BLOOD SPECIMENOrdering Facility: External Submitter Address: , , Performed By: #### 5 7021-8 ####[facility] [id number] [address], [address] [facility] Lymphocytes (Bld) [#/Vol] 1.15 10*3/uL Normal 1.00-4.00 [facility] Comment on above: Order Comment: Speci men Type: BLOOD SPECIMENOrdering Facility: External Submitter Address: , , Performed By: #### 5 7021-8 ####[facility]CL[facility] [id number] [address], [facility] [facility] Lymphocytes/100 WBC (Bld) 9.7 % Normal [facility] Comment on above: Order Comment: Speci men Type: BLOOD SPECIMENOrdering Facility: External Submitter Address: , , Performed By: #### 5 7021-8 ####[facility] [id number] [address] [place] [address] [place] MCH (RBC) [Entitic mass] 27.4 pg Normal 26.0-34.0 [facility] Comment on above: Order Comment: Speci men Type: BLOOD SPECIMENOrdering Facility: External Submitter Address: , , Performed By: #### 5 7021-8 ####[facility] [id number] [address] [place] [address] [place] MCHC (RBC) [Mass/Vol] 30.4 g/dL Low 30.5-36.0 [facility] Comment on above: Order Comment: Speci men Type: BLOOD SPECIMENOrdering Facility: External Submitter Address: , , Performed By: #### 5 7021-8 ####[facility] [id number] [address] [place] [address] [place] MCV (RBC) [Entitic vol] 90.0 fL Normal 80.0-100.0 [facility] Comment on above: Order Comment: Speci men Type: BLOOD SPECIMENOrdering Facility: External Submitter Address: , , Performed By: #### 5 7021-8 ####[facility] [id number] [address] [place] [address] [place] Monocytes (Bld) [#/Vol] 1.32 10*3/uL High <0.87 [facility] Comment on above: Order Comment: Speci men Type: BLOOD SPECIMENOrdering Facility: External Submitter Address: , , Performed By: #### 5 7021-8 ####[facility] [id number] [address] [place] [address] [place] Monocytes/100 WBC (Bld) 11.2 % Normal [facility] Comment on above: Order Comment: Speci men Type: BLOOD SPECIMENOrdering Facility: External Submitter Address: , , Performed By: #### 5 7021-8 ####[facility] [id number] [address] [place] [address] [place] Neutrophils (Bld) [#/Vol] 8.86 10*3/uL High 1.45-7.50 [facility] Comment on above: Order Comment: Speci men Type: BLOOD SPECIMENOrdering Facility: External Submitter Address: , , Performed By: #### 5 7021-8 ####[facility] [id number] [facility] [address] [place] [address] [place] Neutrophils/100 WBC (Bld) 75.0 % Normal [facility] Comment on above: Order Comment: Speci men Type: BLOOD SPECIMENOrdering Facility: External Submitter Address: , , Performed By: #### 5 7021-8 ####[facility] [id number] [address] [place] [address] [place] Nucleated RBC (Bld) [#/Vol] 10*3/uL Normal <0.01 [facility] Comment on above: Order Comment: Speci men Type: BLOOD SPECIMENOrdering Facility: External Submitter Address: , , Performed By: #### 5 7021-8 ####[facility] [id number] [address] [place] [address] [place] Nucleated RBC/100 WBC (Bld) [Ratio] 0.0 /100 WBC Normal [facility] Comment on above: Order Comment: Speci men Type: BLOOD SPECIMENOrdering Facility: External Submitter Address: , , Performed By: #### 5 7021-8 ####[facility] [id number] [address] [place] [address] [place] Platelet mean volume (Bld) [Entitic vol] 9.4 fL Normal 9.0-12.7 [facility] Comment on above: Order Comment: Speci men Type: BLOOD SPECIMENOrdering Facility: External Submitter Address: , , Performed By: #### 5 7021-8 ####[facility] [id number] [address] [place] [address] [place] Platelets (Bld) [#/Vol] 243 10*3/uL Normal 150-400 [facility] Comment on above: Order Comment: Speci men Type: BLOOD SPECIMENOrdering Facility: External Submitter Address: , , Performed By: #### 5 7021-8 ####[facility] [id number] [address] [place] [address] [place] RBC (Bld) [#/Vol] 4.60 10*6/uL Normal 4.20-6.00 [facility] Comment on above: Order Comment: Speci men Type: BLOOD SPECIMENOrdering Facility: External Submitter Address: , , Performed By: #### 5 7021-8 ####[facility] [id number] [address] [place] [address] [facility] [place] WBC (Bld) [#/Vol] 11.82 10*3/uL High 3.70-11.00 [facility] Comment on above: Order Comment: Speci men Type: BLOOD SPECIMENOrdering Facility: External Submitter Address: , , Performed By: #### 5 7021-8 ####[facility] [id number] [address] [place] [address] [facility] Comprehensive metabolic 2000 panelon 08-03-2024 Albumin [Mass/Vol] 3.7 g/dL Low 3.9-4.9 [facility] Comment on above: Order Comment: Speci men Type: BLOOD SPECIMENOrdering Facility: External Submitter Address: , , Performed By: #### 2 4323-8 ####[facility] [id number] [address] [place] [address] [place] ALP [Catalytic activity/Vol] 50 U/L Normal 38-113 [facility] Comment on above: Order Comment: Speci men Type: BLOOD SPECIMENOrdering Facility: External Submitter Address: , , Performed By: #### 2 4323-8 ####[facility] [id number] [address] [place] [address] [facility] [place] ALT [Catalytic activity/Vol] 12 U/L Normal 10-54 [facility] Comment on above: Order Comment: Speci men Type: BLOOD SPECIMENOrdering Facility: External Submitter Address: , , Performed By: #### 2 4323-8 ####[facility] [id number] [facility] [address] [place] [address] [place] Anion gap [Moles/Vol] 11 mmol/L Normal 8-15 [facility] Comment on above: Order Comment: Speci men Type: BLOOD SPECIMENOrdering Facility: External Submitter Address: , , Performed By: #### 2 4323-8 ####[facility]CL[facility] [id number] [address] [place] [address] [place] AST [Catalytic activity/Vol] 24 U/L Normal 14-40 [facility] Comment on above: Order Comment: Speci men Type: BLOOD SPECIMENOrdering Facility: External Submitter Address: , , Performed By: #### 2 4323-8 ####[facility] [id number] [address] [place] [address] [place] Bilirubin [Mass/Vol] 0.4 mg/dL Normal 0.2-1.3 [facility] Comment on above: Order Comment: Speci men Type: BLOOD SPECIMENOrdering Facility: External Submitter Address: , , Performed By: #### 2 4323-8 ####[facility] [id number] [address] [address] [place] Calcium [Mass/Vol] 9.2 mg/dL Normal 8.5-10.2 [facility] Comment on above: Order Comment: Speci men Type: BLOOD SPECIMENOrdering Facility: External Submitter Address: , , Performed By: #### 2 4323-8 ####[facility] [id number] [address] [place] [address] [place] Chloride [Moles/Vol] 90 mmol/L Low 98-107 [facility] Comment on above: Order Comment: Speci men Type: BLOOD SPECIMENOrdering Facility: External Submitter Address: , , Performed By: #### 2 4323-8 ####[facility] [id number] [address] [place] [address] [place] CO2 [Moles/Vol] 29 mmol/L Normal 22-30 [facility] Comment on above: Order Comment: Speci men Type: BLOOD SPECIMENOrdering Facility: External Submitter Address: , , Performed By: #### 2 4323-8 ####[facility] [id number] [address] [address] [place] [facility] Creatinine [Mass/Vol] 0.98 mg/dL Normal 0.73-1.22 [facility] Comment on above: Order Comment: Elgin egan Type: BLOOD SPECIMENOrdering Facility: External Submitter Address: , , Performed By: #### 2 4323-8 ####[facility] [id number] [address] [address] [facility] Creatinine and Glomerular filtration rate.predicted panel (S/P/Bld) 82 mL/min/1.73m??? Normal >=60 [facility] Comment on above: Order Comment: Elgin egan Type: BLOOD SPECIMENOrdering Facility: External Submitter Address: , , Result Comment: Tamika mated Glomerular Filtration Rate (eGFR) is calculated using the 2020 CKD-EPI creatinine equation. This equation utilizes serum creatinine, sex, and age as parameters. The creatinine assay has traceable calibration to isotope dilution-mass spectrometry. Refer to KDIGO guidelines for clinical interpretation. In patients with unstable renal function, e.g. those with acute kidney injury, the eGFR may not accurately reflect actual GFR. Performed By: #### 2 4323-8 ####[facility] [id number] [address] [address] [place] Glucose [Mass/Vol] 67 mg/dL Low 74-99 [facility] Comment on above: Order Comment: Elgin egan Type: BLOOD SPECIMENOrdering Facility: External Submitter Address: , , Result Comment: The [place] Diabetes Association (ADA) provides guidance for cutoff values for fasting glucose and random glucose. The ADA defines fasting as no caloric intake for at least 8 hours. Fasting plasma glucose results between 100 to 125 mg/dL indicate increased risk for diabetes (prediabetes).Fasting plasma glucose results greater than or equal to 126 mg/dL meet the criteria for diagnosis of diabetes. In the absence of unequivocal hyperglycemia, results should be confirmed by repeat testing. In a patient with classic symptoms of hyperglycemia or hyperglycemic crisis, random plasma glucose results greater than or equal to 200 mg/dL meet the criteria for diagnosis of diabetes.Reference: Standards of Medical Care in Diabetes 2016, [place] [employer]. Diabetes Care. 2016.39(Suppl 1). Performed By: #### 2 4323-8 ####[facility]CL[facility] [id number] [id number], [place] [address] [place] Potassium [Moles/Vol] 3.7 mmol/L Normal 3.7-5.1 [facility] Comment on above: Order Comment: Isadorai jignesh Type: BLOOD SPECIMENOrdering Facility: External Submitter Address: , , Performed By: #### 2 432-8 ####[facility] [id number] [facility] [place] [id number], [place] [address] [place] Protein [Mass/Vol] 7.2 g/dL Normal 6.3-8.0 [facility] Comment on above: Order Comment: Elgin egan Type: BLOOD SPECIMENOrdering Facility: External Submitter Address: , , Performed By: #### 2 432-8 ####[facility] [id number] [address] [facility] [place], [place] [address] [place] Sodium [Moles/Vol] 130 mmol/L Low 136-144 [facility] Comment on above: Order Comment: Elgin egan Type: BLOOD SPECIMENOrdering Facility: External Submitter Address: , , Performed By: #### 2 4323-8 ####[facility] [id number] [id number], [place] [address] [place] Urea nitrogen [Mass/Vol] 4 mg/dL Low 9-24 [facility] Comment on above: Order Comment: Elgin egan Type: BLOOD SPECIMENOrdering Facility: External Submitter Address: , , Performed By: #### 2 4323-8 ####[facility] [id number] [id number], [place] [address] [place] CNPNon 07-31-2024 CNPN Normal [facility] CBC W Auto Differential pane l (Bld)on 07-27-2024 Basophils (Bld) [#/Vol] 0.04 10*3/uL Normal <0.11 [facility] Comment on above: Order Comment: Speci men Type: BLOOD SPECIMENOrdering Facility: External Submitter Address: , , Performed By: #### 5 7021-8 ####[facility] [id number] [address] [place] [address] [place] Basophils/100 WBC (Bld) 0.3 % Normal [facility] Comment on above: Order Comment: Speci men Type: BLOOD SPECIMENOrdering Facility: External Submitter Address: , , Performed By: #### 5 7021-8 ####[facility] [id number] [address] [place] [address] [place] [facility] Differential cell count method Nom (Bld) Auto Normal [facility] Comment on above: Order Comment: Speci men Type: BLOOD SPECIMENOrdering Facility: External Submitter Address: , , Performed By: #### 5 7021-8 ####[facility] [id number] [address] [place] [address] [place] Eosinophils (Bld) [#/Vol] 0.23 10*3/uL Normal <0.46 [facility] Comment on above: Order Comment: Speci men Type: BLOOD SPECIMENOrdering Facility: External Submitter Address: , , Performed By: #### 5 7021-8 ####[facility] [id number] [address] [place] [address] [place] Eosinophils/100 WBC (Bld) 1.8 % Normal [facility] Comment on above: Order Comment: Speci men Type: BLOOD SPECIMENOrdering Facility: External Submitter Address: , , Performed By: #### 5 7021-8 ####[facility] [id number] [address] [place] [address] [place] Erythrocyte distribution width (RBC) [Ratio] 15.6 % High 11.5-15.0 [facility] Comment on above: Order Comment: Speci men Type: BLOOD SPECIMENOrdering Facility: External Submitter Address: , , Performed By: #### 5 7021-8 ####[facility]CL[facility] [id number] [address] [place] [address] [place] Hematocrit (Bld) [Volume fraction] 40.7 % Normal 39.0-51.0 [facility] Comment on above: Order Comment: Speci men Type: BLOOD SPECIMENOrdering Facility: External Submitter Address: , , Performed By: #### 5 7021-8 ####[facility] [id number] [address] [place] [address] [place] Hemoglobin (Bld) [Mass/Vol] 12.4 g/dL Low 13.0-17.0 [facility] Comment on above: Order Comment: Speci men Type: BLOOD SPECIMENOrdering Facility: External Submitter Address: , , Performed By: #### 5 7021-8 ####[facility] [id number] [address] [place] [address] [place] Immature granulocytes (Bld) [#/Vol] 0.15 10*3/uL High <0.10 [facility] Comment on above: Order Comment: Speci men Type: BLOOD SPECIMENOrdering Facility: External Submitter Address: , , Performed By: #### 5 7021-8 ####[facility] [id number] [address] [place] [address] [place] Immature granulocytes/100 WBC (Bld) 1.2 % Normal [facility] Comment on above: Order Comment: Speci men Type: BLOOD SPECIMENOrdering Facility: External Submitter Address: , , Performed By: #### 5 7021-8 ####[facility] [id number] [address] [place] [address] [place] Lymphocytes (Bld) [#/Vol] 1.08 10*3/uL Normal 1.00-4.00 [facility] Comment on above: Order Comment: Speci men Type: BLOOD SPECIMENOrdering Facility: External Submitter Address: , , Performed By: #### 5 7021-8 ####[facility] [id number] [address] Lymphocytes/100 WBC (Bld) 8.7 % Normal [facility] Comment on above: Order Comment: Speci men Type: BLOOD SPECIMENOrdering Facility: External Submitter Address: , , Performed By: #### 5 7021-8 ####[facility] [id number] [address] [place] [facility] MCH (RBC) [Entitic mass] 27.3 pg Normal 26.0-34.0 [facility] Comment on above: Order Comment: Speci men Type: BLOOD SPECIMENOrdering Facility: External Submitter Address: , , Performed By: #### 5 7021-8 ####[facility] [id number] [address] [place] MCHC (RBC) [Mass/Vol] 30.5 g/dL Normal 30.5-36.0 [facility] Comment on above: Order Comment: Speci men Type: BLOOD SPECIMENOrdering Facility: External Submitter Address: , , Performed By: #### 5 7021-8 ####[facility] [id number] [place] [address] [place] MCV (RBC) [Entitic vol] 89.6 fL Normal 80.0-100.0 [facility] Comment on above: Order Comment: Speci men Type: BLOOD SPECIMENOrdering Facility: External Submitter Address: , , Performed By: #### 5 7021-8 ####[facility]CL[facility] [id number] [id number], [place] [address] [place] Monocytes (Bld) [#/Vol] 1.44 10*3/uL High <0.87 [facility] Comment on above: Order Comment: Speci men Type: BLOOD SPECIMENOrdering Facility: External Submitter Address: , , Performed By: #### 5 7021-8 ####[facility]CL[facility] [id number] [id number], [place] [address] [place] Monocytes/100 WBC (Bld) 11.6 % Normal [facility] Comment on above: Order Comment: Speci men Type: BLOOD SPECIMENOrdering Facility: External Submitter Address: , , Performed By: #### 5 7021-8 ####[facility] [id number] [facility] [address] [place] [address] [place] Neutrophils (Bld) [#/Vol] 9.50 10*3/uL High 1.45-7.50 [facility] Comment on above: Order Comment: Speci men Type: BLOOD SPECIMENOrdering Facility: External Submitter Address: , , Performed By: #### 5 7021-8 ####[facility] [id number] [facility] [address], [facility] [place] Neutrophils/100 WBC (Bld) 76.4 % Normal [facility] Comment on above: Order Comment: Speci men Type: BLOOD SPECIMENOrdering Facility: External Submitter Address: , , Performed By: #### 5 7021-8 ####[facility] [id number] [facility] [id number], [place] [address] [place] Nucleated RBC (Bld) [#/Vol] 10*3/uL Normal <0.01 [facility] Comment on above: Order Comment: Speci men Type: BLOOD SPECIMENOrdering Facility: External Submitter Address: , , Performed By: #### 5 7021-8 ####[facility] [id number] [address] [facility] [place] [address] [place] Nucleated RBC/100 WBC (Bld) [Ratio] 0.0 /100 WBC Normal [facility] Comment on above: Order Comment: Speci men Type: BLOOD SPECIMENOrdering Facility: External Submitter Address: , , Performed By: #### 5 7021-8 ####[facility] [id number] [address] [place] [address] [place] Platelet mean volume (Bld) [Entitic vol] 9.4 fL Normal 9.0-12.7 [facility] Comment on above: Order Comment: Speci men Type: BLOOD SPECIMENOrdering Facility: External Submitter Address: , , Performed By: #### 5 7021-8 ####[facility] [id number] [address], [place] [address] [place] [address] [place] Platelets (Bld) [#/Vol] 254 10*3/uL Normal 150-400 [facility] Comment on above: Order Comment: Speci men Type: BLOOD SPECIMENOrdering Facility: External Submitter Address: , , Performed By: #### 5 7021-8 ####[facility] LABIA [id number] [address] [place] [address] [place] RBC (Bld) [#/Vol] 4.54 10*6/uL Normal 4.20-6.00 [facility] Comment on above: Order Comment: Speci men Type: BLOOD SPECIMENOrdering Facility: External Submitter Address: , , Performed By: #### 5 7021-8 ####[facility] [id number] [address] [place] [address] [place] WBC (Bld) [#/Vol] 12.44 10*3/uL High 3.70-11.00 [facility] Comment on above: Order Comment: Speci men Type: BLOOD SPECIMENOrdering Facility: External Submitter Address: , , Performed By: #### 5 7021-8 ####[facility] [id number] [address] [place] [address] [facility] Comprehensive metabolic 2000 panelon 07-27-2024 Albumin [Mass/Vol] 3.5 g/dL Low 3.9-4.9 [facility] Comment on above: Order Comment: Speci men Type: BLOOD SPECIMENOrdering Facility: External Submitter Address: , , Performed By: #### 2 4323-8 ####[facility] [id number] [facility] [address] [place] [address] [place] ALP [Catalytic activity/Vol] 48 U/L Normal 38-113 [facility] Comment on above: Order Comment: Speci men Type: BLOOD SPECIMENOrdering Facility: External Submitter Address: , , Performed By: #### 2 4323-8 ####[facility] [id number] [facility] [place] [id number] [place] [facility] ALT [Catalytic activity/Vol] 15 U/L Normal 10-54 [facility] Comment on above: Order Comment: Speci men Type: BLOOD SPECIMENOrdering Facility: External Submitter Address: , , Performed By: #### 2 4323-8 ####[facility] [id number] [facility] [place] [id number] [place] Anion gap [Moles/Vol] 11 mmol/L Normal 8-15 [facility] Comment on above: Order Comment: Speci men Type: BLOOD SPECIMENOrdering Facility: External Submitter Address: , , Performed By: #### 2 4323-8 ####[facility] [id number] [facility] [address] [place] [address] [place] AST [Catalytic activity/Vol] 24 U/L Normal 14-40 [facility] Comment on above: Order Comment: Speci men Type: BLOOD SPECIMENOrdering Facility: External Submitter Address: , , Performed By: #### 2 4323-8 ####[facility] [id number] [facility] [address] [place] [address] [place] Bilirubin [Mass/Vol] 0.5 mg/dL Normal 0.2-1.3 [facility] Comment on above: Order Comment: Speci men Type: BLOOD SPECIMENOrdering Facility: External Submitter Address: , , Performed By: #### 2 4323-8 ####[facility] [id number] [facility] [address] [address] [place] Calcium [Mass/Vol] 9.0 mg/dL Normal 8.5-10.2 [facility] Comment on above: Order Comment: Speci men Type: BLOOD SPECIMENOrdering Facility: External Submitter Address: , , Performed By: #### 2 4323-8 ####[facility]CLIA [id number] [place] [id number] [place] Chloride [Moles/Vol] 90 mmol/L Low 98-107 [facility] Comment on above: Order Comment: Speci men Type: BLOOD SPECIMENOrdering Facility: External Submitter Address: , , Performed By: #### 2 4323-8 ####[facility] [id number] [facility] [place] [id number] [place] CO2 [Moles/Vol] 27 mmol/L Normal 22-30 [facility] Comment on above: Order Comment: Speci men Type: BLOOD SPECIMENOrdering Facility: External Submitter Address: , , Performed By: #### 2 4323-8 ####[facility] [id number] [facility] [address] [address] [place] Creatinine [Mass/Vol] 1.00 mg/dL Normal 0.73-1.22 [facility] Comment on above: Order Comment: Speci men Type: BLOOD SPECIMENOrdering Facility: External Submitter Address: , , Performed By: #### 2 4323-8 ####[facility] [id number] [facility] [address] [address] [place] Creatinine and Glomerular filtration rate.predicted panel (S/P/Bld) 80 mL/min/1.73m??? Normal >=60 [facility] Comment on above: Order Comment: Elgin egan Type: BLOOD SPECIMENOrdering Facility: External Submitter Address: , , Result Comment: Tamika mated Glomerular Filtration Rate (eGFR) is calculated using the 2020 CKD-EPI creatinine equation. This equation utilizes serum creatinine, sex, and age as parameters. The creatinine assay has traceable calibration to isotope dilution-mass spectrometry. Refer to KDIGO guidelines for clinical interpretation. In patients with unstable renal function, e.g. those with acute kidney injury, the eGFR may not accurately reflect actual GFR. Performed By: #### 2 4323-8 ####[facility]CL[facility] [id number] [place] [address] [place] Glucose [Mass/Vol] 66 mg/dL Low 74-99 [facility] Comment on above: Order Comment: Elgin egan Type: BLOOD SPECIMENOrdering Facility: External Submitter Address: , , Result Comment: The [place] Diabetes Association (ADA) provides guidance for cutoff values for fasting glucose and random glucose. The ADA defines fasting as no caloric intake for at least 8 hours. Fasting plasma glucose results between 100 to 125 mg/dL indicate increased risk for diabetes (prediabetes).Fasting plasma glucose results greater than or equal to 126 mg/dL meet the criteria for diagnosis of diabetes. In the absence of unequivocal hyperglycemia, results should be confirmed by repeat testing. In a patient with classic symptoms of hyperglycemia or hyperglycemic crisis, random plasma glucose results greater than or equal to 200 mg/dL meet the criteria for diagnosis of diabetes.Reference: Standards of Medical Care in Diabetes 2016, [place] [employer] Association. Diabetes Care. 2016.39(Suppl 1). Performed By: #### 2 4323-8 ####[facility] [id number] [place] [address] [place] Potassium [Moles/Vol] 4.2 mmol/L Normal 3.7-5.1 [facility] Comment on above: Order Comment: Elgin egan Type: BLOOD SPECIMENOrdering Facility: External Submitter Address: , , Performed By: #### 2 4323-8 ####[facility]CL[facility] [id number] [place] [address] [facility] Protein [Mass/Vol] 7.0 g/dL Normal 6.3-8.0 [facility] Comment on above: Order Comment: Speci men Type: BLOOD SPECIMENOrdering Facility: External Submitter Address: , , Performed By: #### 2 4323-8 ####[facility] LABIA [id number] [address] Sodium [Moles/Vol] 128 mmol/L Low 136-144 [facility] Comment on above: Order Comment: Speci men Type: BLOOD SPECIMENOrdering Facility: External Submitter Address: , , Performed By: #### 2 4323-8 ####[facility] LABIA [id number] [address] [place] Urea nitrogen [Mass/Vol] 9 mg/dL Normal 9-24 [facility] Comment on above: Order Comment: Speci men Type: BLOOD SPECIMENOrdering Facility: External Submitter Address: , , Performed By: #### 2 4323-8 ####[facility] [id number] [place] [id number] [facility] OF [place] CNPDanitza 07-22-2024 [facility] (AGFAMPLE) ----- MARS PETERSON ([id number]) 1955 M DEF Date Time Provider Department 07/22/24 ALMA GILL During your visit today, we recorded the following information about you: Priya Pedersen MA 07/22/2024 4:11 PM Signed Portable oxygen has been faxed to [facility] VANNA Rojas Julie, [place] 07/24/2024 10:15 AM Signed Form received from [facility] placed on signing tray VANNA Rojas Brittny A, APRN.[facility] 07/27/2024 10:43 AM Signed Form completed. Please return fax with my most recent chart notes. Priya Pedersen MA 07/27/2024 11:27 AM Signed Form and OV faxed back Priya Pedersen MA Allergies As of Date: 07/22/2024 Noted Allergy Reaction ANIMAL DANDER 08/21/2022 14 - Other: See Comments Comments: Anything with fur SEASONAL ALLERGIES 08/21/2022 14 - Other: See Comments Comments: Stuffy nose, headaches Date Reviewed: 07/14/2024 Reviewed by: Alma Gill APRN.[employer] - Fully Assessed Reason for Visit: Oxygen [3494] Prescriptions as of 07/27/2024 - isosorbide mononitrate ER (IMDUR) 30 mg 24 hr tablet Take 1 tablet by mouth once daily. - gabapentin (NEURONTIN) 300 mg capsule TAKE 2 CAPSULES BY MOUTH EVERY MORNING AND 3 CAPSULES AT BEDTIME FOR 30 DAYS. Strength: 300 mg - hydrOXYzine HCl (ATARAX) 25 mg tablet Take 2 tablets by mouth two times a day. - budesonide (PULMICORT) 0.5 mg/2 mL nebulizer solution Use 2 mL via nebulizer two times a day. - ipratropium-albuterol (DUONEB) 0.5 mg-3 mg(2.5 mg base)/3 mL nebu Inhale 3 mL as instructed every 4 hours while awake. - metoprolol succinate ER (TOPROL XL) 25 mg 24 hr tablet Take 1 tablet by mouth every afternoon. - clopidogrel (PLAVIX) 75 mg tablet Take 1 tablet by mouth once daily. - pantoprazole DR (PROTONIX) 40 mg tablet Take 1 tablet by mouth once daily. - predniSONE (DELTASONE) 10 mg tablet Take 2 tablets by mouth once daily for 21 days, THEN 1.5 tablets once daily for 21 days, THEN 1 tablet once daily for 21 days, THEN 0.5 tablets once daily for 21 days. - mycophenolate mofetil (CELLCEPT) 250 mg capsule Take 1 capsule by mouth two times a day for 14 days, THEN 2 capsules two times a day for 14 days, THEN 4 capsules two times a day for 14 days, THEN 6 capsules two times a day. - rosuvastatin (CRESTOR) 20 mg tablet Take 1 tablet by mouth daily at bedtime. - lisinopril 2.5 mg tablet Take 1 tablet by mouth two times a day. Hold if SBP less than 110 - ezetimibe (ZETIA) 10 mg tablet Take 1 tablet by mouth once daily. - guaiFENesin (MUCINEX) 600 mg 12 hr tablet Take 1 tablet by mouth two times a day as needed for cold/allergy symptoms. - traZODone (DESYREL) 100 mg tablet TAKE 2 TABLETS BY MOUTH DAILY AT BEDTIME - furosemide (LASIX) 40 mg tablet Take 1 tablet by mouth three times a week. - escitalopram oxalate (LEXAPRO) 20 mg tablet Take 1 tablet by mouth once daily. - colestipol (COLESTID) 1 gram tablet Take 1 tablet by mouth two times a day. - OXYGEN, HOME THERAPY, 3 L/min by Nasal Cannula route as directed. - fluticasone (FLONASE) 50 mcg/actuation nasal spray spray 1 spray into each nostril every day - nitroglycerin sublingual (NITROSTAT) 0.4 mg SL tablet Dissolve 1 tablet under the tongue every 5 minutes as needed for chest pain. - albuterol sulfate 90 mcg/actuation aebs Inhale 1-2 Puffs as instructed every 4 hours as needed for wheezing/shortness of breath. - Lactobacillus acidophilus (PROBIOTIC) 10 billion cell cap Take 1 capsule by mouth once daily. - acetaminophen (TYLENOL EXTRA STRENGTH) 500 mg tablet Take 2 tablets by mouth every 8 hours as needed for pain. FOR PAIN. - Zinc 50 mg tab Take 50 mg by mouth once daily. - aspirin, enteric coated (ASPIRIN, ENTERIC COATED) 81 mg EC tablet Take 81 mg by mouth once daily. - multivit-min/folic/vit K/lycop (ONE-A-DAY MEN'S MULTIVITAMIN ORAL) Take by mouth once daily. 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 Normal [facility] Comprehensive Metabolic Prof diazraya 07-21-2024 Albumin [Mass/Vol] 3.7 g/dL Normal 3.4-4.8 [facility] Comment on above: Performed By: #### L 100.0100, L500.4050 #### [facility] [address] [place], [address] Albumin/Globulin [Mass ratio] 1.1 {ratio} Normal 0.9-2.4 [facility] Comment on above: Performed By: #### L 100.0100, L500.4050 #### [facility] [address] [place], [address] ALK PHOS 52 U/L Normal 40-129 [facility] Comment on above: Performed By: #### L 100.0100, L500.4050 #### [facility] [address] [place], [address] ALT [Catalytic activity/Vol] 10 U/L Normal <=46 [facility] Comment on above: Performed By: #### L 100.0100, L500.4050 #### [facility] [address] [place], [address] AST [Catalytic activity/Vol] 23 U/L Normal <=37 [facility] Comment on above: Performed By: #### L 100.0100, L500.4050 #### [facility] [address] [place], [address] Bilirubin [Mass/Vol] 0.40 mg/dL Normal 0.00-1.30 [facility] Comment on above: Performed By: #### L 100.0100, L500.4050 #### [facility] [address] [place], [address] BUN/CRE 8.8 RATIO Low 10-20 [facility] Comment on above: Performed By: #### L 100.0100, L500.4050 #### [facility] [address] [place], [address] Calcium [Mass/Vol] 9.0 mg/dL Normal 7.6-11.0 [facility] Comment on above: Performed By: #### L 100.0100, L500.4050 #### [facility] [address] [place], [address] Chloride [Moles/Vol] 94 mmol/L Low 98-108 [facility] Comment on above: Performed By: #### L 100.0100, L500.4050 #### [facility] [address] [place], [address] CO2 [Moles/Vol] 22.1 mmol/L Normal 21.0-32.0 [facility] Comment on above: Performed By: #### L 100.0100, L500.4050 #### [facility] [address] [place], [address] Creatinine [Mass/Vol] 0.96 mg/dL Normal 0.70-1.20 [facility] Comment on above: Performed By: #### L 100.0100, L500.4050 #### [facility] [address] [place], [address] GAP 16 High 5-15 [facility] Comment on above: Performed By: #### L 100.0100, L500.4050 #### [facility] [address] [place], [address] GFR/1.73 sq M.predicted among non-blacks MDRD (S/P/Bld) [Vol rate/Area] 84 mL/min/{1.73_m2} Normal >60 [facility] Comment on above: Result Comment: mL/m in/1.73m2 CKD-EPI Creatinine Equation (2020) Performed By: #### L 100.0100, L500.4050 #### [facility] [address] [place], [address] Globulin (S) [Mass/Vol] 3.4 g/dL Normal 2.2-4.2 [facility] Comment on above: Performed By: #### L 100.0100, L500.4050 #### [facility] [address] [place], [address] Glucose [Mass/Vol] 79 mg/dL Normal 70-99 [facility] Comment on above: Performed By: #### L 100.0100, L500.4050 #### [facility] [address] [place], [address] Potassium [Moles/Vol] 3.8 mmol/L Normal 3.3-5.1 [facility] Comment on above: Performed By: #### L 100.0100, L500.4050 #### [facility] [address] [place], [address] Sodium [Moles/Vol] 132 mmol/L Low 133-145 [facility] Comment on above: Performed By: #### L 100.0100, L500.4050 #### [facility] [address] [place], [address] T PROT 7.1 g/dL Normal 5.9-8.4 [facility] Comment on above: Performed By: #### L 100.0100, L500.4050 #### [facility] [address] [place], [address] Urea nitrogen [Mass/Vol] 8 mg/dL Normal 4-19 [facility] Comment on above: Performed By: #### L 100.0100, L500.4050 #### [facility] [address] [place], [address] Absolute neutrophil countOrd ered By: Alma Gill on 07-20-2024 Neutrophils (Bld) [#/Vol] 10.2 10*3/uL High 2.0-7.7 [facility] Anion gap in Serum or Plasma Ordered By: Alma Gill on 07-20-2024 Anion gap [Moles/Vol] 16 mmol/L High 5-15 [facility] BUN/creatinine ratioOrdered By: Alma Gill on 07-20-2024 Urea nitrogen/Creatinine [Mass ratio] 8.8 mg/mg Low 10-20 [facility] Basophil percentageOrdered B y: Alma Gill on 07-20-2024 Basophils/100 WBC (Bld) 0.5 % 0-1 [facility] Bilirubin, totalOrdered By: Alma Gill on 07-20-2024 Bilirubin [Mass/Vol] 0.40 mg/dL 0.00-1.30 [facility] CBC W/Diff, Automatedon 07-11 Absolute Lymph 1.08 X10 3/uL Normal 0.83-4.51 [facility] Comment on above: Performed By: #### L 100.0100, L500.4050 #### [facility] [address] [place], [address] Absolute Neut 10.2 X10 3/uL High 2.0-7.7 [facility] Comment on above: Performed By: #### L 100.0100, L500.4050 #### [facility] [address] [place], [address] Basophils/100 WBC (Bld) 0.5 % Normal 0-1 [facility] Comment on above: Performed By: #### L 100.0100, L500.4050 #### [facility] [address] [place], [address] Eosinophils/100 WBC (Bld) 1.4 % Normal 0-5 [facility] Comment on above: Performed By: #### L 100.0100, L500.4050 #### [facility] [address] [place], [address] Erythrocyte distribution width (RBC) [Ratio] 15.6 % High 11.6-14.6 [facility] Comment on above: Performed By: #### L 100.0100, L500.4050 #### [facility] [address] [place], [address] Hematocrit (Bld) [Volume fraction] 40.6 % Normal 40-54 [facility] Comment on above: Performed By: #### L 100.0100, L500.4050 #### [facility] [address] [place], [address] Hemoglobin (Bld) [Mass/Vol] 12.8 g/dL Low 13.0-16.5 [facility] Comment on above: Performed By: #### L 100.0100, L500.4050 #### [facility] [address] [place], [address] IG% 1.400 High 0.0-0.9 [facility] Comment on above: Result Comment: IG% - Immature Granulocytes (promyelocytes, myelocytes and metamyelocytes) > 1% indicates that a LEFT SHIFT is Present. Performed By: #### L 100.0100, L500.4050 #### [facility] [address] [place], [address] Lymphocytes/100 WBC (Bld) 8.3 % Low 19-41 [facility] Comment on above: Performed By: #### L 100.0100, L500.4050 #### [facility] [address] [place], [address] MCH (RBC) [Entitic mass] 27.9 pg Normal 27.0-32.0 [facility] Comment on above: Performed By: #### L 100.0100, L500.4050 #### [facility] [address] [place], [address] MCHC (RBC) [Mass/Vol] 31.5 g/dL Low 32-36 [facility] Comment on above: Performed By: #### L 100.0100, L500.4050 #### [facility] [address] [place], [address] MCV (RBC) [Entitic vol] 88.5 fL Normal 80-94 [facility] Comment on above: Performed By: #### L 100.0100, L500.4050 #### [facility] [address] [place], [address] Monocytes/100 WBC (Bld) 9.6 % Normal 0-10 [facility] Comment on above: Performed By: #### L 100.0100, L500.4050 #### [facility] [address] [place], [address] Neutrophils/100 WBC (Bld) 78.8 % High 47-70 [facility] Comment on above: Performed By: #### L 100.0100, L500.4050 #### [facility] [address] [place], [address] Nucleated RBC (Bld) [#/Vol] 0 10*3/uL Normal 0-5 [facility] Comment on above: Performed By: #### L 100.0100, L500.4050 #### [facility] [address] [place], [address] Platelet mean volume (Bld) [Entitic vol] 9.2 fL Normal 6.2-12.0 [facility] Comment on above: Performed By: #### L 100.0100, L500.4050 #### [facility] [address] [place], [address] Platelets (Bld) [#/Vol] 244 10*3/uL Normal 150-450 [facility] Comment on above: Performed By: #### L 100.0100, L500.4050 #### [facility] [address] [place], [address] RBC (Bld) [#/Vol] 4.59 10*6/uL Low 4.6-6.2 [facility] Comment on above: Performed By: #### L 100.0100, L500.4050 #### [facility] [address] [place], [address] RDW SD 50.4 fl High 35.1-43.9 [facility] Comment on above: Performed By: #### L 100.0100, L500.4050 #### [facility] [address] [place], [address] WBC (Bld) [#/Vol] 13.0 10*3/uL High 4.4-11.0 [facility] Comment on above: Performed By: #### L 100.0100, L500.4050 #### [facility] [place], [address] Yamileth 07-20-2024 DIMITRI Telephone (MUKESH) ----- MARS PETERSON ([id number]) 1955 M DEF Date Time Provider Department 07/20/24 ALMA GILL During your visit today, we recorded the following information about you: Priya Pedersen MA 07/20/2024 11:44 AM Signed Form received from [facility] placed on signing tray VANNA Rojas Brittny A, APRN.[facility] 07/27/2024 10:40 AM Signed Form signed. Please return fax. Priya Pedersen MA 07/27/2024 11:29 AM Signed Faxed Priya Pedersen MA Allergies As of Date: 07/20/2024 Noted Allergy Reaction ANIMAL DANDER 08/21/2022 14 - Other: See Comments Comments: Anything with fur SEASONAL ALLERGIES 08/21/2022 14 - Other: See Comments Comments: Stuffy nose, headaches Date Reviewed: 07/14/2024 Reviewed by: Alma Gill APRN.[facility] - Fully Assessed Reason for Visit: Electronic Communication [060] Forms [593] Prescriptions as of 07/27/2024 - isosorbide mononitrate ER (IMDUR) 30 mg 24 hr tablet Take 1 tablet by mouth once daily. - gabapentin (NEURONTIN) 300 mg capsule TAKE 2 CAPSULES BY MOUTH EVERY MORNING AND 3 CAPSULES AT BEDTIME FOR 30 DAYS. Strength: 300 mg - hydrOXYzine HCl (ATARAX) 25 mg tablet Take 2 tablets by mouth two times a day. - budesonide (PULMICORT) 0.5 mg/2 mL nebulizer solution Use 2 mL via nebulizer two times a day. - ipratropium-albuterol (DUONEB) 0.5 mg-3 mg(2.5 mg base)/3 mL nebu Inhale 3 mL as instructed every 4 hours while awake. - metoprolol succinate ER (TOPROL XL) 25 mg 24 hr tablet Take 1 tablet by mouth every afternoon. - clopidogrel (PLAVIX) 75 mg tablet Take 1 tablet by mouth once daily. - pantoprazole DR (PROTONIX) 40 mg tablet Take 1 tablet by mouth once daily. - predniSONE (DELTASONE) 10 mg tablet Take 2 tablets by mouth once daily for 21 days, THEN 1.5 tablets once daily for 21 days, THEN 1 tablet once daily for 21 days, THEN 0.5 tablets once daily for 21 days. - mycophenolate mofetil (CELLCEPT) 250 mg capsule Take 1 capsule by mouth two times a day for 14 days, THEN 2 capsules two times a day for 14 days, THEN 4 capsules two times a day for 14 days, THEN 6 capsules two times a day. - rosuvastatin (CRESTOR) 20 mg tablet Take 1 tablet by mouth daily at bedtime. - lisinopril 2.5 mg tablet Take 1 tablet by mouth two times a day. Hold if SBP less than 110 - ezetimibe (ZETIA) 10 mg tablet Take 1 tablet by mouth once daily. - guaiFENesin (MUCINEX) 600 mg 12 hr tablet Take 1 tablet by mouth two times a day as needed for cold/allergy symptoms. - traZODone (DESYREL) 100 mg tablet TAKE 2 TABLETS BY MOUTH DAILY AT BEDTIME - furosemide (LASIX) 40 mg tablet Take 1 tablet by mouth three times a week. - escitalopram oxalate (LEXAPRO) 20 mg tablet Take 1 tablet by mouth once daily. - colestipol (COLESTID) 1 gram tablet Take 1 tablet by mouth two times a day. - OXYGEN, HOME THERAPY, 3 L/min by Nasal Cannula route as directed. - fluticasone (FLONASE) 50 mcg/actuation nasal spray spray 1 spray into each nostril every day - nitroglycerin sublingual (NITROSTAT) 0.4 mg SL tablet Dissolve 1 tablet under the tongue every 5 minutes as needed for chest pain. - albuterol sulfate 90 mcg/actuation aebs Inhale 1-2 Puffs as instructed every 4 hours as needed for wheezing/shortness of breath. - Lactobacillus acidophilus (PROBIOTIC) 10 billion cell cap Take 1 capsule by mouth once daily. - acetaminophen (TYLENOL EXTRA STRENGTH) 500 mg tablet Take 2 tablets by mouth every 8 hours as needed for pain. FOR PAIN. - Zinc 50 mg tab Take 50 mg by mouth once daily. - aspirin, enteric coated (ASPIRIN, ENTERIC COATED) 81 mg EC tablet Take 81 mg by mouth once daily. - multivit-min/folic/vit K/lycop (ONE-A-DAY MEN'S MULTIVITAMIN ORAL) Take by mouth once daily. Problem List As Of Date 07/20/2024 Noted Resolved Essential hypertension [I10] 05/24/2020 Peripheral vascular disease (HCC) [I73.9] 05/24/2020 Chronic back pain [M54.9, G89.29] 05/24/2020 Obesity, Class II, BMI 35-39.9 [E66.812] 05/24/2020 Status post below knee amputation of right lowe*10/22/2020 Chronic diastolic congestive heart failure (HCC*11/23/2021 Coronary artery disease of ione artery of kell*11/23/2021 CVA (cerebral vascular accident) ([facility]) [I63.9] 11/23/2021 11/20/2022 Neuropathy [G62.9] 11/23/2021 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 Normal [facility] Carbon dioxide, total [Moles /volume] in Central venous bloodOrdered By: Alma Gill on 07-20-2024 CO2 [Moles/Vol] 22.1 mmol/L 21.0-32.0 [facility] Chloride assayOrdered By: Anna Gill on 07-20-2024 Chloride [Moles/Vol] 94 mmol/L Low 98-108 [facility] Eosinophil percentageOrdered By: Alma Gill on 07-20-2024 Eosinophils/100 WBC (Bld) 1.4 % 0-5 [facility] Erythrocyte distribution wid th ratioOrdered By: Alma Gill on 07-20-2024 Erythrocyte distribution width (RBC) [Ratio] 15.6 % High 11.6-14.6 [facility] Erythrocyte distribution wid th standard deviationOrdered By: Alma Gill on 07-20-2024 Erythrocyte distribution width (RBC) [Entitic vol] 50.4 fL High 35.1-43.9 [facility] GFR/1.73 sq M.predicted gemma g non-blacks MDRD (S/P/Bld) [Vol rate/Area]Ordered By: Alma Gill on 07-20-2024 Estimated GFR (MDRD) Non-Af Amer 84 >60 [facility] Comment on above: mL/min/1.73m2 CKD-EP I Creatinine Equation (2020) Hematocrit Auto (Bld) [Volum e fraction]Ordered By: Alma Gill on 07-20-2024 Hematocrit (Bld) [Volume fraction] 40.6 % 40-54 [facility] Hemoglobin measurementOrdere d By: Alma Gill on 07-20-2024 Hemoglobin (Bld) [Mass/Vol] 12.8 g/dL Low 13.0-16.5 [facility] Immature granulocytes/100 WB C Auto (Bld)Ordered By: Alma Gill on 07-20-2024 Immature granulocytes/100 WBC (Bld) 1.400 % High 0.0-0.9 [facility] Comment on above: IG% - Immature Granu locytes (promyelocytes, myelocytes and metamyelocytes) > 1% indicates that a LEFT SHIFT is Present. Laboratory - Chemistry and C hemistry - challengeOrdered By: Alma Gill on 07-20-2024 AST [Catalytic activity/Vol] 23 U/L <38 [facility] Lymphocytes Auto (Unsp spec) [#/Vol]Ordered By: Alma Gill on 07-20-2024 Lymphocytes (Bld) [#/Vol] 1.08 10*3/uL 0.83-4.51 [facility] Lymphocytes/100 WBC Auto (Un sp spec)Ordered By: Alma Gill on 07-20-2024 Lymphocytes/100 WBC (Bld) 8.3 % Low 19-41 [facility] MCV (mean corpuscular volume ) determinationOrdered By: Alma Gill on 07-20-2024 MCV (RBC) [Entitic vol] 88.5 fL 80-94 [facility] Mean corpuscular hemoglobin (MCH) determinationOrdered By: Alma Gill on 07-20-2024 MCH (RBC) [Entitic mass] 27.9 pg 27.0-32.0 [facility] Mean corpuscular hemoglobin concentration (MCHC) determinationOrdered By: Alma Gill on 07-20-2024 MCHC (RBC) [Mass/Vol] 31.5 g/dL Low 32-36 [facility] Mean platelet volume determi nationOrdered By: Alma Gill on 07-20-2024 Platelet mean volume (Bld) [Entitic vol] 9.2 fL 6.2-12.0 [facility] Monocyte percentageOrdered B y: Alma Gill on 07-20-2024 Monocytes/100 WBC (Bld) 9.6 % 0-10 [facility] Neutrophil percentageOrdered By: Alma Gill on 07-20-2024 Neutrophils/100 WBC (Bld) 78.8 % High 47-70 [facility] Nucleated red blood cell per centageOrdered By: Alma Gill on 07-20-2024 Nucleated RBC/100 WBC (Bld) [Ratio] 0 % 0-5 [facility] Platelet countOrdered By: Anna Gill on 07-20-2024 Platelets (Bld) [#/Vol] 244 10*3/uL 150-450 [facility] Potassium (Unsp spec) [Mass/ Vol]Ordered By: Alma Gill on 07-20-2024 Potassium [Moles/Vol] 3.8 mmol/L 3.3-5.1 [facility] RBC Auto (Bld) [#/Vol]Ordere d By: Alma Gill on 07-20-2024 RBC (Bld) [#/Vol] 4.59 10*6/uL Low 4.6-6.2 [facility] Serum creatinine measurement (mass/volume)Ordered By: Alma Gill on 07-20-2024 Creatinine [Mass/Vol] 0.96 mg/dL 0.70-1.20 [facility] Serum globulin measurementOr dered By: Alma Gill on 07-20-2024 Globulin (S) [Mass/Vol] 3.4 g/dL 2.2-4.2 [facility] Serum glucose measurement (m ass/volume)Ordered By: Alma Gill on 07-20-2024 Glucose [Mass/Vol] 79 mg/dL 70-99 [facility] Serum or plasma alanine delgado otransferase (ALT) measurementOrdered By: Alma Gill on 07-20-2024 ALT [Catalytic activity/Vol] 10 U/L <47 [facility] Serum or plasma albumin lui urement (mass/volume)Ordered By: Alma Gill on 07-20-2024 Albumin [Mass/Vol] 3.7 g/dL 3.4-4.8 [facility] Serum or plasma albumin/glob ulin mass ratioOrdered By: Alma Gill on 07-20-2024 Albumin/Globulin [Mass ratio] 1.1 {ratio} 0.9-2.4 [facility] Serum or plasma alkaline anitra sphatase measurementOrdered By: Alma Gill on 07-20-2024 ALP [Catalytic activity/Vol] 52 U/L 40-129 [facility] Serum or plasma calcium lui urement (mass/volume)Ordered By: Alma Gill on 07-20-2024 Calcium [Mass/Vol] 9.0 mg/dL 7.6-11.0 [facility] Serum or plasma urea nitroge n measurement (mass/volume)Ordered By: Alma Gill on 07-20-2024 Urea nitrogen [Mass/Vol] 8 mg/dL 4-19 [facility] Sodium levelOrdered By: Rossy Gill on 07-20-2024 Sodium [Moles/Vol] 132 mmol/L Low 133-145 [facility] Total proteinOrdered By: Emelijimmy Gill on 07-20-2024 Protein [Mass/Vol] 7.1 g/dL 5.9-8.4 [facility] White blood cell (WBC) count Ordered By: Alma Gill on 07-20-2024 WBC (Bld) [#/Vol] 13.0 10*3/uL High 4.4-11.0 [facility] CT CHEST WO IVCONon 07-17-19 CT CHEST WO IVCON * * *Final Report* * * DATE OF EXAM: Jul 16 2024 2:21PM [facility] 0541 - CT CHEST WO IVCON / PROCEDURE REASON: multiple diagnoses * * * * Physician Interpretation * * * * EXAMINATION: CHEST CT WITHOUT CONTRAST CLINICAL HISTORY: Shortness of breath, interstitial lung disease, wheezing Technique: Spiral CT acquisition of the chest from the thoracic inlet to the upper abdomen without contrast. MQ: [id number] CT Radiation dose: Integrated Dose-length product (DLP) for this visit = 482.26 mGy*cm CT Dose Reduction Employed: Automated exposure control(AEC) and iterative recon Comparison: 03/01/2024 RESULT: Limitations: None. Lines, tubes, and devices: None. Lung parenchyma and airways: * Redemonstrated traction bronchiectasis and subpleural fibrotic reticulations without a definitive apical or basilar predominant distribution. Mild honeycombing is present in the lung bases and RIGHT apex similar to prior. No significant groundglass opacifications. Overall the degree of fibrotic interstitial lung disease appears unchanged from 03/09/2024. No subpleural sparing. No new or suspicious pulmonary nodules. Pleural space: No pleural effusion. No pleural thickening. Lower neck, lymph nodes, and mediastinum: The imaged thyroid gland is normal. Similar borderline enlarged paratracheal, hilar, subcarinal lymph nodes, likely reactive. Heart, pericardium, and thoracic vessels: Post surgical changes of median sternotomy and coronary artery bypass. Moderate thoracic aortic atherosclerosis without aneurysm. Dilated central pulmonary arteries with the main pulmonary artery caliber of 3.8 cm. Bones and soft tissues: No destructive bone lesion. Mild degenerative changes of the thoracic spine. Upper abdomen: No abnormality in the imaged upper abdomen. Localizer images: No additional findings. IMPRESSION: 1. No significant interval progression of fibrotic interstitial lung disease favoring a UIP pattern. 2. Dilated central pulmonary arteries suggestive of pulmonary hypertension. Hot Wire Glass Tube Cutter: PSCB Transcribe Date/Time: Jul 19 2024 5:33P Dictated by : SERJIO PIERRE MD This examination was interpreted and the report reviewed and electronically signed by: SERJIO PIERRE MD on Jul 19 2024 5:38PM EST [id number] Normal [facility] COVID & INFLUENZA A/B & RSV PCR, ROUTINEon 07-15-2024 FLUAV RNA EVELIO+probe Ql (Unsp spec) Not detected Not Detected [facility] FLUBV RNA EVELIO+probe Ql (Unsp spec) Not detected Not Detected [facility] Interpretation and review of laboratory results Normal [facility] RSV A RNA EVELIO+probe Ql (Unsp spec) Not detected Not Detected [facility] SARS-CoV-2 (COVID-19) RNA EVELIO+probe Ql (Unsp spec) Not detected See comment [facility] Reference Range (the expected result in uninfected individuals): Not detected [facility] CNOVon 07-14-2024 CNOV Office Visit (IVETH ROJAS) ----- MARS PETERSON ([id number]) 1955 M DEF Date Time Provider Department 07/14/24 4:40 PM ALMA GILL During your visit today, we recorded the following information about you: Temperature Pulse Respiration Blood pressure 97.5 degrees 62/minute 18/minute 124/76 Alma Gill, TECHNICAL APPLICATIONS SCIENTIST.TAG MACHINE OPERATOR 07/20/2024 6:08 PM Signed CHIEF COMPLAINT: Mars Peterson is a 69 year old male who presents for 3 month follow up. His is present with him today. I reviewed past medical, surgical, social, and family histories today and updated chart. Allergies, chronic medications, and supplements were also reviewed. He presents today in a wheelchair and is on continuous oxygen at 3L NC. Following with pulmonary for ILD Dr. Tru Simon On prednisone taper Considering Cellcept pending approval BS running around 89 Currently on Pulmicort neb and Duoneb 4 times daily Albuterol prn Completing CT chest They are asking for a potable oxygen concentrator since it is difficult for him to drag around a large tank when out of the house Echo was ordered but hasn't been completed yet Cough is still productive, taking Mucinex BID Taking his Lasix 3 days a week 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 Peripheral vascular disease ([facility]) S/P CABG (coronary artery bypass graft) Umbilical hernia PAST SURGICAL HISTORY Procedure Laterality Date BACK SURGERY HX 2017 CABG (1) VEIN GRAFT AND ARTERIAL GRAFT 2001 CABG x4 COLONOSCOPY 2007 FINGER AMPUTATION (SPECIFY DIGIT) HX HIP SURGERY HX 1999 1999, 2019 Replacement Right and left LEG AMPUTATION HX Right 2018 PAST SURGICAL HISTORY OF coccyx for pilonidal cyst REMV CATARACT EXTRACAP,INSERT LENS Bilateral Social History Tobacco Use Smoking status: Former Current packs/day: 0.00 Average packs/day: 2.0 packs/day for 40.0 years (80.0 ttl pk-yrs) Types: Cigarettes Start date: 05/13/1961 Quit date: 05/13/2001 Years since quittin.2 Smokeless tobacco: Former Types: Chew Vaping Use Vaping status: Never Used Substance Use Topics Alcohol use: Yes Alcohol/week: 10.0 standard drinks of alcohol Types: 10 Cans of beer per week Drug use: Never ALLERGIES Allergen Reactions Animal Dander Other: See Comments Anything with fur Seasonal Allergies Other: See Comments Stuffy nose, headaches Family History Problem Relation Age of Onset Ovarian cancer Mother other (afib) Mother COPD Mother Asthma Mother Heart Father heart attack other (Chronic oxygen) Father other (bladder cancer) Maternal Aunt Cancer Maternal Aunt Cancer Maternal Uncle Heart Paternal Uncle Leukemia Paternal Uncle Colon Cancer No Family History Current Outpatient Medications Medication Sig Dispense Refill budesonide (PULMICORT) 0.5 mg/2 mL nebulizer solution Use 2 mL via nebulizer two times a day. 360 mL 1 ipratropium-albuterol (DUONEB) 0.5 mg-3 mg(2.5 mg base)/3 mL nebu Inhale 3 mL as instructed every 4 hours while awake. 360 mL 5 metoprolol succinate ER (TOPROL XL) 25 mg 24 hr tablet Take 1 tablet by mouth every afternoon. 90 tablet 1 clopidogrel (PLAVIX) 75 mg tablet Take 1 tablet by mouth once daily. 90 tablet 1 triamcinolone acetonide (KENALOG) 0.1 % cream Apply to affected area two times a day. [address] (PROTONIX) 40 mg tablet Take 1 tablet by mouth once daily. 90 tablet 1 predniSONE (DELTASONE) 10 mg tablet Take 2 tablets by mouth once daily for 21 days, THEN 1.5 tablets once daily for 21 days, THEN 1 tablet once daily for 21 days, THEN 0.5 tablets once daily for 21 days. 105 tablet 0 mycophenolate mofetil (CELLCEPT) 250 mg capsule Take 1 capsule by mouth two times a day for 14 days, THEN 2 capsules two times a day for 14 days, THEN 4 capsules two times a day for 14 days, THEN 6 capsules two times a day. 1276 capsule 0 rosuvastatin (CRESTOR) 20 mg tablet Take 1 tablet by mouth daily at bedtime. 90 tablet 3 lisinopril 2.5 mg tablet Take 1 tablet by mouth two times a day. Hold if SBP less than 110 180 tablet 3 ezetimibe (ZETIA) 10 mg tablet Take 1 tablet by mouth once daily. 90 tablet 3 guaiFENesin (MUCINEX) 600 mg 12 hr tablet Take 1 tablet by mouth two times a day as needed for cold/allergy symptoms. 60 tablet 2 traZODone (DESYREL) 100 mg tablet TAKE 2 TABLETS BY MOUTH DAILY AT BEDTIME 180 tablet 1 isosorbide mononitrate ER (IMDUR) 30 mg 24 hr tablet (more content not included)... [facility]07[facility] 07-06-2024 [facility] (AG[facility]AMPLE[facility] ----- MARS PETERSON ([id number]) 1955 M DEF Date Time Provider Department 07/06/24 ALMA GILL During your visit today, we recorded the following information about you: Priya Pedersen MA 07/06/2024 10:51 AM Signed Form to ME patient's home health palced on signing tray VANNA Rojas Brittny A, TAY.[facility] 07/06/2024 1:04 PM Signed Form signed. Please return fax. Priya Pedersen MA 07/06/2024 1:28 PM Signed Faxed Priya Pedersen MA Allergies As of Date: 07/06/2024 Noted Allergy Reaction ANIMAL DANDER 08/21/2022 14 - Other: See Comments Comments: Anything with fur SEASONAL ALLERGIES 08/21/2022 14 - Other: See Comments Comments: Stuffy nose, headaches Date Reviewed: 06/24/2024 Reviewed by: Liz Guzman OCCA - Fully Assessed Reason for Visit: Forms [913] Prescriptions as of 07/06/2024 - budesonide (PULMICORT) 0.5 mg/2 mL nebulizer solution Use 2 mL via nebulizer two times a day. - ipratropium-albuterol (DUONEB) 0.5 mg-3 mg(2.5 mg base)/3 mL nebu Inhale 3 mL as instructed every 4 hours while awake. - azithromycin (ZITHROMAX) 250 mg tablet Take 2 tabs on the first day, then one tab daily for 4 days. - gabapentin (NEURONTIN) 300 mg capsule TAKE 2 CAPSULES BY MOUTH EVERY MORNING AND 3 CAPSULES AT BEDTIME FOR 30 DAYS. Strength: 300 mg - metoprolol succinate ER (TOPROL XL) 25 mg 24 hr tablet Take 1 tablet by mouth every afternoon. - clopidogrel (PLAVIX) 75 mg tablet Take 1 tablet by mouth once daily. - triamcinolone acetonide (KENALOG) 0.1 % cream Apply to affected area two times a day. - pantoprazole DR (PROTONIX) 40 mg tablet Take 1 tablet by mouth once daily. - predniSONE (DELTASONE) 10 mg tablet Take 2 tablets by mouth once daily for 21 days, THEN 1.5 tablets once daily for 21 days, THEN 1 tablet once daily for 21 days, THEN 0.5 tablets once daily for 21 days. - mycophenolate mofetil (CELLCEPT) 250 mg capsule Take 1 capsule by mouth two times a day for 14 days, THEN 2 capsules two times a day for 14 days, THEN 4 capsules two times a day for 14 days, THEN 6 capsules two times a day. - rosuvastatin (CRESTOR) 20 mg tablet Take 1 tablet by mouth daily at bedtime. - lisinopril 2.5 mg tablet Take 1 tablet by mouth two times a day. Hold if SBP less than 110 - ezetimibe (ZETIA) 10 mg tablet Take 1 tablet by mouth once daily. - guaiFENesin (MUCINEX) 600 mg 12 hr tablet Take 1 tablet by mouth two times a day as needed for cold/allergy symptoms. - traZODone (DESYREL) 100 mg tablet TAKE 2 TABLETS BY MOUTH DAILY AT BEDTIME - isosorbide mononitrate ER (IMDUR) 30 mg 24 hr tablet Take 1 tablet by mouth once daily. - furosemide (LASIX) 40 mg tablet Take 1 tablet by mouth three times a week. - escitalopram oxalate (LEXAPRO) 20 mg tablet Take 1 tablet by mouth once daily. - colestipol (COLESTID) 1 gram tablet Take 1 tablet by mouth two times a day. - busPIRone (BUSPAR) 5 mg tablet Take 1 tablet by mouth three times a day as needed. - OXYGEN, HOME THERAPY, 3 L/min by Nasal Cannula route as directed. - fluticasone (FLONASE) 50 mcg/actuation nasal spray spray 1 spray into each nostril every day - nitroglycerin sublingual (NITROSTAT) 0.4 mg SL tablet Dissolve 1 tablet under the tongue every 5 minutes as needed for chest pain. - albuterol sulfate 90 mcg/actuation aebs Inhale 1-2 Puffs as instructed every 4 hours as needed for wheezing/shortness of breath. - Lactobacillus acidophilus (PROBIOTIC) 10 billion cell cap Take 1 capsule by mouth once daily. - acetaminophen (TYLENOL EXTRA STRENGTH) 500 mg tablet Take 2 tablets by mouth every 8 hours as needed for pain. FOR PAIN. - Zinc 50 mg tab Take 50 mg by mouth once daily. - aspirin, enteric coated (ASPIRIN, ENTERIC COATED) 81 mg EC tablet Take 81 mg by mouth once daily. - multivit-min/folic/vit K/lycop (ONE-A-DAY MEN'S MULTIVITAMIN ORAL) Take by mouth once daily. Problem List As Of Date 07/06/2024 Noted Resolved Essential hypertension [I10] 05/24/2020 Peripheral vascular disease (HCC) [I73.9] 05/24/2020 Chronic back pain [M54.9, G89.29] 05/24/2020 Obesity, Class II, BMI 35-39.9 [E66.812] 05/24/2020 Status post below knee amputation of right lowe*10/22/2020 Chronic diastolic congestive heart failure (HCC*11/23/2021 Coronary artery disease of ione artery of kell*11/23/2021 CVA (cerebral vascular accident) ([facility]) [I63.9] 11/23/2021 11/20/2022 Neuropathy [G62.9] 11/23/2021 Osteomyelitis of foot ([facility]) [M86.9] 11/23/2021 09/18/2023 Umbilical hernia [K42.9] 11/23/2021 Pressure injury of right buttock, stage 2 (HCC)*02/01/2022 09/18/2023 Pressure injury of left buttock, stage 2 (HCC) *02/01/2022 09/18/2023 Chest pain [R07.9] 02/01/2022 Essential tremor [G25.0] 02/01/2022 Anxiety and depression [F41.9, F32.A] 02/01/2022 SOB (shortness of breath) [R06.02] 02/15/2022 (more content not included)... Normal [facility] CNPN [facility] Telephone (AGFAMPLE) ----- MARS PETERSON ([id number]) 1955 M DEF Date Time Provider Department 07/03/24 ALMA GILL During your visit today, we recorded the following information about you: Priya Pedersen MA 07/03/2024 8:46 AM Signed Form placed on signing tray from [facility] VANNA Rojas Julie, MA 07/03/2024 3:07 PM Signed Signed and faxed back Priya Pedersen MA Allergies As of Date: 07/03/2024 Noted Allergy Reaction ANIMAL DANDER 08/21/2022 14 - Other: See Comments Comments: Anything with fur SEASONAL ALLERGIES 08/21/2022 14 - Other: See Comments Comments: Stuffy nose, headaches Date Reviewed: 06/24/2024 Reviewed by: Liz Guzman OCCA - Fully Assessed Reason for Visit: Electronic Communication [890] Forms [913] Prescriptions as of 07/03/2024 - budesonide (PULMICORT) 0.5 mg/2 mL nebulizer solution Use 2 mL via nebulizer two times a day. - ipratropium-albuterol (DUONEB) 0.5 mg-3 mg(2.5 mg base)/3 mL nebu Inhale 3 mL as instructed every 4 hours while awake. - azithromycin (ZITHROMAX) 250 mg tablet Take 2 tabs on the first day, then one tab daily for 4 days. - gabapentin (NEURONTIN) 300 mg capsule TAKE 2 CAPSULES BY MOUTH EVERY MORNING AND 3 CAPSULES AT BEDTIME FOR 30 DAYS. Strength: 300 mg - metoprolol succinate ER (TOPROL XL) 25 mg 24 hr tablet Take 1 tablet by mouth every afternoon. - clopidogrel (PLAVIX) 75 mg tablet Take 1 tablet by mouth once daily. - triamcinolone acetonide (KENALOG) 0.1 % cream Apply to affected area two times a day. - pantoprazole DR (PROTONIX) 40 mg tablet Take 1 tablet by mouth once daily. - predniSONE (DELTASONE) 10 mg tablet Take 2 tablets by mouth once daily for 21 days, THEN 1.5 tablets once daily for 21 days, THEN 1 tablet once daily for 21 days, THEN 0.5 tablets once daily for 21 days. - mycophenolate mofetil (CELLCEPT) 250 mg capsule Take 1 capsule by mouth two times a day for 14 days, THEN 2 capsules two times a day for 14 days, THEN 4 capsules two times a day for 14 days, THEN 6 capsules two times a day. - rosuvastatin (CRESTOR) 20 mg tablet Take 1 tablet by mouth daily at bedtime. - lisinopril 2.5 mg tablet Take 1 tablet by mouth two times a day. Hold if SBP less than 110 - ezetimibe (ZETIA) 10 mg tablet Take 1 tablet by mouth once daily. - guaiFENesin (MUCINEX) 600 mg 12 hr tablet Take 1 tablet by mouth two times a day as needed for cold/allergy symptoms. - traZODone (DESYREL) 100 mg tablet TAKE 2 TABLETS BY MOUTH DAILY AT BEDTIME - isosorbide mononitrate ER (IMDUR) 30 mg 24 hr tablet Take 1 tablet by mouth once daily. - furosemide (LASIX) 40 mg tablet Take 1 tablet by mouth three times a week. - escitalopram oxalate (LEXAPRO) 20 mg tablet Take 1 tablet by mouth once daily. - colestipol (COLESTID) 1 gram tablet Take 1 tablet by mouth two times a day. - busPIRone (BUSPAR) 5 mg tablet Take 1 tablet by mouth three times a day as needed. - OXYGEN, HOME THERAPY, 3 L/min by Nasal Cannula route as directed. - fluticasone (FLONASE) 50 mcg/actuation nasal spray spray 1 spray into each nostril every day - nitroglycerin sublingual (NITROSTAT) 0.4 mg SL tablet Dissolve 1 tablet under the tongue every 5 minutes as needed for chest pain. - albuterol sulfate 90 mcg/actuation aebs Inhale 1-2 Puffs as instructed every 4 hours as needed for wheezing/shortness of breath. - Lactobacillus acidophilus (PROBIOTIC) 10 billion cell cap Take 1 capsule by mouth once daily. - acetaminophen (TYLENOL EXTRA STRENGTH) 500 mg tablet Take 2 tablets by mouth every 8 hours as needed for pain. FOR PAIN. - Zinc 50 mg tab Take 50 mg by mouth once daily. - aspirin, enteric coated (ASPIRIN, ENTERIC COATED) 81 mg EC tablet Take 81 mg by mouth once daily. - multivit-min/folic/vit K/lycop (ONE-A-DAY MEN'S MULTIVITAMIN ORAL) Take by mouth once daily. Problem List As Of Date 07/03/2024 Noted Resolved Essential hypertension [I10] 05/24/2020 Peripheral vascular disease (HCC) [I73.9] 05/24/2020 Chronic back pain [M54.9, G89.29] 05/24/2020 Obesity, Class II, BMI 35-39.9 [E66.812] 05/24/2020 Status post below knee amputation of right lowe*10/22/2020 Chronic diastolic congestive heart failure (HCC*11/23/2021 Coronary artery disease of ione artery of kell*11/23/2021 CVA (cerebral vascular accident) ([facility]) [I63.9] 11/23/2021 11/20/2022 Neuropathy [G62.9] 11/23/2021 Osteomyelitis of foot (HCC) [M86.9] 11/23/2021 09/18/2023 Umbilical hernia [K42.9] 11/23/2021 Pressure injury of right buttock, stage 2 (HCC)*02/01/2022 09/18/2023 Pressure injury of left buttock, stage 2 (HCC) *02/01/2022 09/18/2023 Chest pain [R07.9] 02/01/2022 Essential tremor [G25.0] 02/01/2022 Anxiety and depression [F41.9, F32.A] 02/01/2022 SOB (shortness of breath) [R06.02] 02/15/2022 Impaired fasting glucose [R73.01] 06/04/2022 Mix (more content not included)... Normal [facility] CNOVon 06-24-2024 CNOV Normal [facility] CNPNon 06-15-2024 CNPN Telephone (PLYM) ----- NICHOLASMARS H ([id number]) 1955 M DEF Date Time Provider Department 06/15/24 TRU SIMON [facility] During your visit today, we recorded the following information about you: Mila Mejia MA 06/15/2024 9:52 AM Signed Do you want this nocturnal pulse oximetry done on O2 or room air? Mila Mejia MA 06/15/2024 1:22 PM Signed Left message for patient to call office. Need to know which DME he uses to send order for noct pulse ox Allergies As of Date: 06/15/2024 Noted Allergy Reaction ANIMAL DANDER 08/21/2022 14 - Other: See Comments Comments: Anything with fur SEASONAL ALLERGIES 08/21/2022 14 - Other: See Comments Comments: Stuffy nose, headaches Date Reviewed: 04/22/2024 Reviewed by: Tru Simon MD - Fully Assessed Reason for Visit: Orders [681] Cmt: Do you want this nocturnal pulse oximetry done on O2 or room air? Prescriptions as of 06/15/2024 - levoFLOXacin (LEVAQUIN) 500 mg tablet Take 1 tablet by mouth once daily for 7 days. - pantoprazole DR (PROTONIX) 40 mg tablet Take 1 tablet by mouth once daily. - gabapentin (NEURONTIN) 300 mg capsule TAKE 2 CAPSULES BY MOUTH EVERY MORNING AND 3 CAPSULES AT BEDTIME FOR 30 DAYS. Strength: 300 mg - predniSONE (DELTASONE) 10 mg tablet Take 2 tablets by mouth once daily for 21 days, THEN 1.5 tablets once daily for 21 days, THEN 1 tablet once daily for 21 days, THEN 0.5 tablets once daily for 21 days. - mycophenolate mofetil (CELLCEPT) 250 mg capsule Take 1 capsule by mouth two times a day for 14 days, THEN 2 capsules two times a day for 14 days, THEN 4 capsules two times a day for 14 days, THEN 6 capsules two times a day. - rosuvastatin (CRESTOR) 20 mg tablet Take 1 tablet by mouth daily at bedtime. - lisinopril 2.5 mg tablet Take 1 tablet by mouth two times a day. Hold if SBP less than 110 - ezetimibe (ZETIA) 10 mg tablet Take 1 tablet by mouth once daily. - guaiFENesin (MUCINEX) 600 mg 12 hr tablet Take 1 tablet by mouth two times a day as needed for cold/allergy symptoms. - traZODone (DESYREL) 100 mg tablet TAKE 2 TABLETS BY MOUTH DAILY AT BEDTIME - metoprolol succinate ER (TOPROL XL) 25 mg 24 hr tablet Take 1 tablet by mouth every afternoon. - isosorbide mononitrate ER (IMDUR) 30 mg 24 hr tablet Take 1 tablet by mouth once daily. - furosemide (LASIX) 40 mg tablet Take 1 tablet by mouth three times a week. - escitalopram oxalate (LEXAPRO) 20 mg tablet Take 1 tablet by mouth once daily. - colestipol (COLESTID) 1 gram tablet Take 1 tablet by mouth two times a day. - busPIRone (BUSPAR) 5 mg tablet Take 1 tablet by mouth three times a day as needed. - clopidogrel (PLAVIX) 75 mg tablet Take 1 tablet by mouth once daily. - OXYGEN, HOME THERAPY, 3 L/min by Nasal Cannula route as directed. - ipratropium-albuterol (DUONEB) 0.5 mg-3 mg(2.5 mg base)/3 mL nebu Inhale 3 mL as instructed every 4 hours as needed for wheezing/shortness of breath. - fluticasone (FLONASE) 50 mcg/actuation nasal spray spray 1 spray into each nostril every day - zqqfmhmjomz-itrtsereg-fow anter (TRELEGY ELLIPTA) 200-62.5-25 mcg inhalation powder Inhale 1 Puff as instructed once daily. - nitroglycerin sublingual (NITROSTAT) 0.4 mg SL tablet Dissolve 1 tablet under the tongue every 5 minutes as needed for chest pain. - albuterol sulfate 90 mcg/actuation aebs Inhale 1-2 Puffs as instructed every 4 hours as needed for wheezing/shortness of breath. - Lactobacillus acidophilus (PROBIOTIC) 10 billion cell cap Take 1 capsule by mouth once daily. - acetaminophen (TYLENOL EXTRA STRENGTH) 500 mg tablet Take 2 tablets by mouth every 8 hours as needed for pain. FOR PAIN. - Zinc 50 mg tab Take 50 mg by mouth once daily. - aspirin, enteric coated (ASPIRIN, ENTERIC COATED) 81 mg EC tablet Take 81 mg by mouth once daily. - multivit-min/folic/vit K/lycop (ONE-A-DAY MEN'S MULTIVITAMIN ORAL) Take by mouth once daily. 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 [facility] Yamileth 06-09-2024 DIMITRI Telephone (MUKESH) ----- MARS PETERSON ([id number]) 1955 M DEF Date Time Provider Department 06/09/24 ALMA GILL During your visit today, we recorded the following information about you: Priya Pedersen MA 06/09/2024 10:30 AM Signed Form received from [facility] placed on signing tray VANNA Rojas Brittny A, TECHNICAL APPLICATIONS SCIENTIST.[facility] 06/09/2024 12:24 PM Signed Form signed. Please fax back. Priya Pedersen MA 06/09/2024 12:56 PM Signed Faxed Priya Pedersen MA Allergies As of Date: 06/09/2024 Noted Allergy Reaction ANIMAL DANDER 08/21/2022 14 - Other: See Comments Comments: Anything with fur SEASONAL ALLERGIES 08/21/2022 14 - Other: See Comments Comments: Stuffy nose, headaches Date Reviewed: 04/22/2024 Reviewed by: Tru Simon MD - Fully Assessed Reason for Visit: Electronic Communication [890] Forms [913] Prescriptions as of 06/09/2024 - levoFLOXacin (LEVAQUIN) 500 mg tablet Take 1 tablet by mouth once daily for 7 days. - pantoprazole DR (PROTONIX) 40 mg tablet Take 1 tablet by mouth once daily. - gabapentin (NEURONTIN) 300 mg capsule TAKE 2 CAPSULES BY MOUTH EVERY MORNING AND 3 CAPSULES AT BEDTIME FOR 30 DAYS. Strength: 300 mg - predniSONE (DELTASONE) 10 mg tablet Take 2 tablets by mouth once daily for 21 days, THEN 1.5 tablets once daily for 21 days, THEN 1 tablet once daily for 21 days, THEN 0.5 tablets once daily for 21 days. - mycophenolate mofetil (CELLCEPT) 250 mg capsule Take 1 capsule by mouth two times a day for 14 days, THEN 2 capsules two times a day for 14 days, THEN 4 capsules two times a day for 14 days, THEN 6 capsules two times a day. - rosuvastatin (CRESTOR) 20 mg tablet Take 1 tablet by mouth daily at bedtime. - lisinopril 2.5 mg tablet Take 1 tablet by mouth two times a day. Hold if SBP less than 110 - ezetimibe (ZETIA) 10 mg tablet Take 1 tablet by mouth once daily. - guaiFENesin (MUCINEX) 600 mg 12 hr tablet Take 1 tablet by mouth two times a day as needed for cold/allergy symptoms. - traZODone (DESYREL) 100 mg tablet TAKE 2 TABLETS BY MOUTH DAILY AT BEDTIME - metoprolol succinate ER (TOPROL XL) 25 mg 24 hr tablet Take 1 tablet by mouth every afternoon. - isosorbide mononitrate ER (IMDUR) 30 mg 24 hr tablet Take 1 tablet by mouth once daily. - furosemide (LASIX) 40 mg tablet Take 1 tablet by mouth three times a week. - escitalopram oxalate (LEXAPRO) 20 mg tablet Take 1 tablet by mouth once daily. - colestipol (COLESTID) 1 gram tablet Take 1 tablet by mouth two times a day. - busPIRone (BUSPAR) 5 mg tablet Take 1 tablet by mouth three times a day as needed. - clopidogrel (PLAVIX) 75 mg tablet Take 1 tablet by mouth once daily. - OXYGEN, HOME THERAPY, 3 L/min by Nasal Cannula route as directed. - ipratropium-albuterol (DUONEB) 0.5 mg-3 mg(2.5 mg base)/3 mL nebu Inhale 3 mL as instructed every 4 hours as needed for wheezing/shortness of breath. - fluticasone (FLONASE) 50 mcg/actuation nasal spray spray 1 spray into each nostril every day - hvgzgmbnkrf-seclurnlu-ibv anter (TRELEGY ELLIPTA) 200-62.5-25 mcg inhalation powder Inhale 1 Puff as instructed once daily. - nitroglycerin sublingual (NITROSTAT) 0.4 mg SL tablet Dissolve 1 tablet under the tongue every 5 minutes as needed for chest pain. - albuterol sulfate 90 mcg/actuation aebs Inhale 1-2 Puffs as instructed every 4 hours as needed for wheezing/shortness of breath. - Lactobacillus acidophilus (PROBIOTIC) 10 billion cell cap Take 1 capsule by mouth once daily. - acetaminophen (TYLENOL EXTRA STRENGTH) 500 mg tablet Take 2 tablets by mouth every 8 hours as needed for pain. FOR PAIN. - Zinc 50 mg tab Take 50 mg by mouth once daily. - aspirin, enteric coated (ASPIRIN, ENTERIC COATED) 81 mg EC tablet Take 81 mg by mouth once daily. - multivit-min/folic/vit K/lycop (ONE-A-DAY MEN'S MULTIVITAMIN ORAL) Take by mouth once daily. Problem List As Of Date 06/09/2024 Noted Resolved Essential hypertension [I10] 05/24/2020 Peripheral vascular disease (HCC) [I73.9] 05/24/2020 Chronic back pain [M54.9, G89.29] 05/24/2020 Obesity, Class II, BMI 35-39.9 [E66.812] 05/24/2020 Status post below knee amputation of right lowe*10/22/2020 Chronic diastolic congestive heart failure (HCC*11/23/2021 Coronary artery disease of ione artery of kell*11/23/2021 CVA (cerebral vascular accident) (HCC) [I63.9] 11/23/2021 11/20/2022 Neuropathy [G62.9] 11/23/2021 Osteomyelitis of foot (HCC) [M86.9] 11/23/2021 09/18/2023 Umbilical hernia [K42.9] 11/23/2021 Pressure injury of right buttock, stage 2 (HCC)*02/01/2022 09/18/2023 Pressure injury of left buttock, stage 2 (HCC) *02/01/2022 09/18/2023 Chest pain [R07.9] 02/01/2022 Essential tremor [G25.0] 02/01/2022 Anxiety and depression [F41.9, F32.A] 02/01/2022 SOB (shortness of breath) [R06.02] 02/15/2022 Impai (more content not included)... Normal [facility] Yamileth 05-28-2024 DIMITRI Telephone (MUKESH) ----- MARS PETERSON ([id number]) 1955 M DEF Date Time Provider Department 05/28/24 ALMA GILL During your visit today, we recorded the following information about you: Priya Pedersen MA 05/28/2024 9:12 AM Signed Form needs signed for [facility] order: [id number] placed on signing tray VANNA Rojas Julie, MA 05/29/2024 4:24 PM Signed Faxed Priya Pedersen MA Allergies As of Date: 05/28/2024 Noted Allergy Reaction ANIMAL DANDER 08/21/2022 14 - Other: See Comments Comments: Anything with fur SEASONAL ALLERGIES 08/21/2022 14 - Other: See Comments Comments: Stuffy nose, headaches Date Reviewed: 04/22/2024 Reviewed by: Tru Simon MD - Fully Assessed Reason for Visit: Electronic Communication [890] Forms [913] Prescriptions as of 05/29/2024 - pantoprazole DR (PROTONIX) 40 mg tablet Take 1 tablet by mouth once daily. - gabapentin (NEURONTIN) 300 mg capsule TAKE 2 CAPSULES BY MOUTH EVERY MORNING AND 3 CAPSULES AT BEDTIME FOR 30 DAYS. Strength: 300 mg - predniSONE (DELTASONE) 10 mg tablet Take 2 tablets by mouth once daily for 21 days, THEN 1.5 tablets once daily for 21 days, THEN 1 tablet once daily for 21 days, THEN 0.5 tablets once daily for 21 days. - mycophenolate mofetil (CELLCEPT) 250 mg capsule Take 1 capsule by mouth two times a day for 14 days, THEN 2 capsules two times a day for 14 days, THEN 4 capsules two times a day for 14 days, THEN 6 capsules two times a day. - rosuvastatin (CRESTOR) 20 mg tablet Take 1 tablet by mouth daily at bedtime. - lisinopril 2.5 mg tablet Take 1 tablet by mouth two times a day. Hold if SBP less than 110 - ezetimibe (ZETIA) 10 mg tablet Take 1 tablet by mouth once daily. - guaiFENesin (MUCINEX) 600 mg 12 hr tablet Take 1 tablet by mouth two times a day as needed for cold/allergy symptoms. - traZODone (DESYREL) 100 mg tablet TAKE 2 TABLETS BY MOUTH DAILY AT BEDTIME - metoprolol succinate ER (TOPROL XL) 25 mg 24 hr tablet Take 1 tablet by mouth every afternoon. - isosorbide mononitrate ER (IMDUR) 30 mg 24 hr tablet Take 1 tablet by mouth once daily. - furosemide (LASIX) 40 mg tablet Take 1 tablet by mouth three times a week. - escitalopram oxalate (LEXAPRO) 20 mg tablet Take 1 tablet by mouth once daily. - colestipol (COLESTID) 1 gram tablet Take 1 tablet by mouth two times a day. - busPIRone (BUSPAR) 5 mg tablet Take 1 tablet by mouth three times a day as needed. - clopidogrel (PLAVIX) 75 mg tablet Take 1 tablet by mouth once daily. - OXYGEN, HOME THERAPY, 3 L/min by Nasal Cannula route as directed. - ipratropium-albuterol (DUONEB) 0.5 mg-3 mg(2.5 mg base)/3 mL nebu Inhale 3 mL as instructed every 4 hours as needed for wheezing/shortness of breath. - fluticasone (FLONASE) 50 mcg/actuation nasal spray spray 1 spray into each nostril every day - fdnannjlxdo-yllmlcspz-xif anter (TRELEGY ELLIPTA) 200-62.5-25 mcg inhalation powder Inhale 1 Puff as instructed once daily. - nitroglycerin sublingual (NITROSTAT) 0.4 mg SL tablet Dissolve 1 tablet under the tongue every 5 minutes as needed for chest pain. - albuterol sulfate 90 mcg/actuation aebs Inhale 1-2 Puffs as instructed every 4 hours as needed for wheezing/shortness of breath. - Lactobacillus acidophilus (PROBIOTIC) 10 billion cell cap Take 1 capsule by mouth once daily. - acetaminophen (TYLENOL EXTRA STRENGTH) 500 mg tablet Take 2 tablets by mouth every 8 hours as needed for pain. FOR PAIN. - Zinc 50 mg tab Take 50 mg by mouth once daily. - aspirin, enteric coated (ASPIRIN, ENTERIC COATED) 81 mg EC tablet Take 81 mg by mouth once daily. - multivit-min/folic/vit K/lycop (ONE-A-DAY MEN'S MULTIVITAMIN ORAL) Take by mouth once daily. Problem List As Of Date 05/28/2024 Noted Resolved Essential hypertension [I10] 05/24/2020 Peripheral vascular disease (HCC) [I73.9] 05/24/2020 Chronic back pain [M54.9, G89.29] 05/24/2020 Obesity, Class II, BMI 35-39.9 [E66.812] 05/24/2020 Status post below knee amputation of right lowe*10/22/2020 Chronic diastolic congestive heart failure (HCC*11/23/2021 Coronary artery disease of ione artery of kell*11/23/2021 CVA (cerebral vascular accident) (HCC) [I63.9] 11/23/2021 11/20/2022 Neuropathy [G62.9] 11/23/2021 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 Normal [facility] Yamileth 05-26-2024 EVANSN Telephone (MUKESH) ----- MARS PETERSON ([id number]) 1955 M DEF Date Time Provider Department 05/26/24 ALMA GILL During your visit today, we recorded the following information about you: Priya Pedersen MA 05/26/2024 3:01 PM Signed Notes received from [facility] needs signed in the back, placed on signing tray VANNA Rojas Julie, MA 05/28/2024 9:28 AM Signed Signed and faxed back Priya Pedersen MA Allergies As of Date: 05/26/2024 Noted Allergy Reaction ANIMAL DANDER 08/21/2022 14 - Other: See Comments Comments: Anything with fur SEASONAL ALLERGIES 08/21/2022 14 - Other: See Comments Comments: Stuffy nose, headaches Date Reviewed: 04/22/2024 Reviewed by: Tru Simon MD - Fully Assessed Reason for Visit: Electronic Communication [890] Prescriptions as of 05/28/2024 - pantoprazole DR (PROTONIX) 40 mg tablet Take 1 tablet by mouth once daily. - gabapentin (NEURONTIN) 300 mg capsule TAKE 2 CAPSULES BY MOUTH EVERY MORNING AND 3 CAPSULES AT BEDTIME FOR 30 DAYS. Strength: 300 mg - predniSONE (DELTASONE) 10 mg tablet Take 2 tablets by mouth once daily for 21 days, THEN 1.5 tablets once daily for 21 days, THEN 1 tablet once daily for 21 days, THEN 0.5 tablets once daily for 21 days. - mycophenolate mofetil (CELLCEPT) 250 mg capsule Take 1 capsule by mouth two times a day for 14 days, THEN 2 capsules two times a day for 14 days, THEN 4 capsules two times a day for 14 days, THEN 6 capsules two times a day. - rosuvastatin (CRESTOR) 20 mg tablet Take 1 tablet by mouth daily at bedtime. - lisinopril 2.5 mg tablet Take 1 tablet by mouth two times a day. Hold if SBP less than 110 - ezetimibe (ZETIA) 10 mg tablet Take 1 tablet by mouth once daily. - guaiFENesin (MUCINEX) 600 mg 12 hr tablet Take 1 tablet by mouth two times a day as needed for cold/allergy symptoms. - traZODone (DESYREL) 100 mg tablet TAKE 2 TABLETS BY MOUTH DAILY AT BEDTIME - metoprolol succinate ER (TOPROL XL) 25 mg 24 hr tablet Take 1 tablet by mouth every afternoon. - isosorbide mononitrate ER (IMDUR) 30 mg 24 hr tablet Take 1 tablet by mouth once daily. - furosemide (LASIX) 40 mg tablet Take 1 tablet by mouth three times a week. - escitalopram oxalate (LEXAPRO) 20 mg tablet Take 1 tablet by mouth once daily. - colestipol (COLESTID) 1 gram tablet Take 1 tablet by mouth two times a day. - busPIRone (BUSPAR) 5 mg tablet Take 1 tablet by mouth three times a day as needed. - clopidogrel (PLAVIX) 75 mg tablet Take 1 tablet by mouth once daily. - OXYGEN, HOME THERAPY, 3 L/min by Nasal Cannula route as directed. - ipratropium-albuterol (DUONEB) 0.5 mg-3 mg(2.5 mg base)/3 mL nebu Inhale 3 mL as instructed every 4 hours as needed for wheezing/shortness of breath. - fluticasone (FLONASE) 50 mcg/actuation nasal spray spray 1 spray into each nostril every day - qygzjxjortm-zhklasupv-orf anter (TRELEGY ELLIPTA) 200-62.5-25 mcg inhalation powder Inhale 1 Puff as instructed once daily. - nitroglycerin sublingual (NITROSTAT) 0.4 mg SL tablet Dissolve 1 tablet under the tongue every 5 minutes as needed for chest pain. - albuterol sulfate 90 mcg/actuation aebs Inhale 1-2 Puffs as instructed every 4 hours as needed for wheezing/shortness of breath. - Lactobacillus acidophilus (PROBIOTIC) 10 billion cell cap Take 1 capsule by mouth once daily. - acetaminophen (TYLENOL EXTRA STRENGTH) 500 mg tablet Take 2 tablets by mouth every 8 hours as needed for pain. FOR PAIN. - Zinc 50 mg tab Take 50 mg by mouth once daily. - aspirin, enteric coated (ASPIRIN, ENTERIC COATED) 81 mg EC tablet Take 81 mg by mouth once daily. - multivit-min/folic/vit K/lycop (ONE-A-DAY MEN'S MULTIVITAMIN ORAL) Take by mouth once daily. Problem List As Of Date 05/26/2024 Noted Resolved Essential hypertension [I10] 05/24/2020 Peripheral vascular disease (HCC) [I73.9] 05/24/2020 Chronic back pain [M54.9, G89.29] 05/24/2020 Obesity, Class II, BMI 35-39.9 [E66.812] 05/24/2020 Status post below knee amputation of right lowe*10/22/2020 Chronic diastolic congestive heart failure (HCC*11/23/2021 Coronary artery disease of ione artery of kell*11/23/2021 CVA (cerebral vascular accident) (HCC) [I63.9] 11/23/2021 11/20/2022 Neuropathy [G62.9] 11/23/2021 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 Normal [facility] Yamileth 05-22-2024 DIMITRI Telephone (ALMA DELIAFAMPBOB) ----- MARS PETERSON ([id number]) 1955 M DEF Date Time Provider Department 05/22/24 ALMA GILL During your visit today, we recorded the following information about you: Priya Pedersen MA 05/22/2024 8:30 AM Signed Form received from [facility] placed on signing tray VANNA Rojas Julie, MA 05/22/2024 2:12 PM Signed Faxed Priya Pedersen MA Allergies As of Date: 05/22/2024 Noted Allergy Reaction ANIMAL DANDER 08/21/2022 14 - Other: See Comments Comments: Anything with fur SEASONAL ALLERGIES 08/21/2022 14 - Other: See Comments Comments: Stuffy nose, headaches Date Reviewed: 04/22/2024 Reviewed by: Tru Simon MD - Fully Assessed Reason for Visit: Electronic Communication [890] Forms [913] Prescriptions as of 05/22/2024 - rosuvastatin (CRESTOR) 20 mg tablet Take 1 tablet by mouth daily at bedtime. - lisinopril 2.5 mg tablet Take 1 tablet by mouth two times a day. Hold if SBP less than 110 - ezetimibe (ZETIA) 10 mg tablet Take 1 tablet by mouth once daily. - guaiFENesin (MUCINEX) 600 mg 12 hr tablet Take 1 tablet by mouth two times a day as needed for cold/allergy symptoms. - traZODone (DESYREL) 100 mg tablet TAKE 2 TABLETS BY MOUTH DAILY AT BEDTIME - gabapentin (NEURONTIN) 300 mg capsule TAKE 2 CAPSULES BY MOUTH EVERY MORNING AND 3 CAPSULES AT BEDTIME FOR 30 DAYS. Strength: 300 mg - pantoprazole DR (PROTONIX) 40 mg tablet Take 1 tablet by mouth once daily. - metoprolol succinate ER (TOPROL XL) 25 mg 24 hr tablet Take 1 tablet by mouth every afternoon. - isosorbide mononitrate ER (IMDUR) 30 mg 24 hr tablet Take 1 tablet by mouth once daily. - furosemide (LASIX) 40 mg tablet Take 1 tablet by mouth three times a week. - escitalopram oxalate (LEXAPRO) 20 mg tablet Take 1 tablet by mouth once daily. - colestipol (COLESTID) 1 gram tablet Take 1 tablet by mouth two times a day. - busPIRone (BUSPAR) 5 mg tablet Take 1 tablet by mouth three times a day as needed. - clopidogrel (PLAVIX) 75 mg tablet Take 1 tablet by mouth once daily. - OXYGEN, HOME THERAPY, 3 L/min by Nasal Cannula route as directed. - ipratropium-albuterol (DUONEB) 0.5 mg-3 mg(2.5 mg base)/3 mL nebu Inhale 3 mL as instructed every 4 hours as needed for wheezing/shortness of breath. - fluticasone (FLONASE) 50 mcg/actuation nasal spray spray 1 spray into each nostril every day - xurttbowywr-lwsomnasj-pst anter (TRELEGY ELLIPTA) 200-62.5-25 mcg inhalation powder Inhale 1 Puff as instructed once daily. - nitroglycerin sublingual (NITROSTAT) 0.4 mg SL tablet Dissolve 1 tablet under the tongue every 5 minutes as needed for chest pain. - albuterol sulfate 90 mcg/actuation aebs Inhale 1-2 Puffs as instructed every 4 hours as needed for wheezing/shortness of breath. - Lactobacillus acidophilus (PROBIOTIC) 10 billion cell cap Take 1 capsule by mouth once daily. - acetaminophen (TYLENOL EXTRA STRENGTH) 500 mg tablet Take 2 tablets by mouth every 8 hours as needed for pain. FOR PAIN. - Zinc 50 mg tab Take 50 mg by mouth once daily. - aspirin, enteric coated (ASPIRIN, ENTERIC COATED) 81 mg EC tablet Take 81 mg by mouth once daily. - multivit-min/folic/vit K/lycop (ONE-A-DAY MEN'S MULTIVITAMIN ORAL) Take by mouth once daily. Problem List As Of Date 05/22/2024 Noted Resolved Essential hypertension [I10] 05/24/2020 Peripheral vascular disease (HCC) [I73.9] 05/24/2020 Chronic back pain [M54.9, G89.29] 05/24/2020 Obesity, Class II, BMI 35-39.9 [E66.812] 05/24/2020 Status post below knee amputation of right lowe*10/22/2020 Chronic diastolic congestive heart failure (HCC*11/23/2021 Coronary artery disease of ione artery of kell*11/23/2021 CVA (cerebral vascular accident) ([facility]) [I63.9] 11/23/2021 11/20/2022 Neuropathy [G62.9] 11/23/2021 Osteomyelitis of foot ([facility]) [M86.9] 11/23/2021 09/18/2023 Umbilical hernia [K42.9] 11/23/2021 Pressure injury of right buttock, stage 2 (HCC)*02/01/2022 09/18/2023 Pressure injury of left buttock, stage 2 (HCC) *02/01/2022 09/18/2023 Chest pain [R07.9] 02/01/2022 Essential tremor [G25.0] 02/01/2022 Anxiety and depression [F41.9, F32.A] 02/01/2022 SOB (shortness of breath) [R06.02] 02/15/2022 Impaired fasting glucose [R73.01] 06/04/2022 Mixed hyperlipidemia [E78.2] 06/04/2022 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 Normal [facility] CNPNon 05-19-2024 CNPN Normal [facility] CNPNon 04-27-2024 CNPN Normal [facility] No Panel Informationon 04-27 [facility] [address] [facility], [place] [address] Test Date: 2024-04-27 Pat Name: MARS PETERSON Department: Room: Gender: Male Air Quality Manager: : 1955 Requested By: Order Number: [id number] Reading MD: Francisco Patel MD Interpretive Statements Current ATS/ERS acceptability and repeatability standards for spirometry met. Start of test and EOFE criteria met. Current ATS/ERS acceptability and repeatability standards for DLCO met with 2 acceptable maneuvers. IMPRESSION: Spirometry indicates no obstruction. The reduced FVC could indicate restriction, recommend lung volumes for definitive determination. The diffusing capacity (uncorrected for hemoglobin) is reduced. The kCO (DLCO/VA) reflects a normal transfer/diffusion of CO from the alveolar regions to the blood. Clinical correlation recommended. Electronically Signed On 04-27-2024 16:08:13 EST by Francisco Patel MD ID: [id number] Name: MRAS PETERSON Race: White Ht: 72.00 in Wt: 271.00 lbs Age: 68 Gender: Male : 1955 Dx: Chronic respiratory failure with hypoxia Smoking Hx: Non-smoker Doctor: TRU SIMON Test Date: 04/27/2024 Site: Tech: Beba Rose PRE-BRONCH POST-BRONCH Pre LLN Pred ULN %Pred Post %Pred %Chg SPIROMETRY FVC (L) 2.45 3.24 4.35 5.49 56 FEV1 (L) 1.85 2.38 3.26 4.09 56 FEV1/FVC 0.75 0.63 0.76 0.87 99 PEF L/s (L/sec) 7.82 6.28 8.73 11.18 89 FEF50 (L/sec) 2.20 2.25 4.37 6.50 50 FIF50 (L/sec) 5.35 FEF50/FIF50 0.41 90-100 FIVC (L) 2.30 JZR52-57 (L/sec) 1.39 1.09 2.52 4.56 55 Time (sec) 8.22 FET PEF (sec) 0.09 MAY (L) 0.11 Vol Extrap % (%) 5 LUNG DIFFUSION DLCOunc (ml/min/mmHg) 12.44 16.85 26.78 36.72 46 VA (L) 3.22 5.84 7.21 8.57 44 DLunc/VA (ml/min/mmHg/L) 3.86 2.59 3.79 5.00 101 BHT (sec) 9.82 IVC (L) 2.18 Comments: Current ATS/ERS acceptability and repeatability standards for spirometry met. Start of test and EOFE criteria met. Current ATS/ERS acceptability and repeatability standards for DLCO met with 2 acceptable maneuvers. PULMONARY FUNCTION LAB [facility] SPIROMETRY BASELINE ONLYon 1 06-28-2023 DLCO (ml/min/mmHg) 12.44 ml/min/mmHg [facility] DLCO LLN (ml/min/mmHg) 16.85 ml/min/mmHg [facility] DLCO PREDICTED (ml/min/mmHg) 26.78 ml/min/mmHg [facility] DLCO ULN (ml/min/mmHg) 36.72 ml/min/mmHg [facility] DLCO/VA (ml/min/mmHg/L) 3.86 ml/min/mmHg /L [facility] DLCO/VA PREDICTED (ml/min/mmHg/L) 3.79 ml/min/mmHg /L [facility] DLCOcor PREDICTED (ml/min/mmHg) 26.78 ml/min/mmHg [facility] ERV PREDICTED (L) 1.45 L/S [facility] FEF25% PRE (L/S) 6.65 L/S [facility] RBB73-29% LLN (L/S) 1.09 L/S [facility] SPZ34-09% PRE (L/S) 1.39 L/S [facility] ZFR27-42% PREDICTED (L/S) 2.52 L/S [facility] FEF75% LLN (L/S) 0.25 L/S [facility] FEF75% PRE (L/S0 0.44 L/S [facility] FEF75% PREDICTED (L/S) 0.69 L/S [facility] FEF75% ULN (L/S) 1.79 L/S [facility] FET PRE (S) 8.22 S [facility] FEV1 LLN (L) 2.38 L [facility] FEV1 PRE (L) 1.85 L [facility] FEV1 PREDICTED (L) 3.26 L [facility] FEV1 ULN (L) 4.09 L [facility] FEV1/FVC LLN (%) 63 % [facility] FEV1/FVC PRE (%) 75 % [facility] FEV1/FVC PREDICTED (%) 76 % [facility] FVC LLN (L) 3.24 L [facility] FVC PRE (L) 2.45 L [facility] FVC PREDICTED (L) 4.35 L [facility] FVC ULN (L) 5.49 L [facility] IC PREDICTED (L) 2.90 L/S [facility] PEF LLN (L/S) 6.28 L/S [facility] PEF PRE (L/S) 7.82 L/S [facility] PEF ULN (L/S) 11.18 L/S [facility] SVC LLN (L) 3.24 L/S [facility] SVC PREDICTED (L) 4.35 L/S [facility] SVC ULN (L) 5.49 L/S [facility] VA (L) 3.22 L [facility] VA PREDICTED (L) 7.21 L [facility] CNOVon 04-22-2024 CNOV Normal [facility] CNPNon 04-16-2024 CNPN Telephone (AGFAMPLE) ----- MARS PETERSON ([id number]) 1955 M [facility] Date Time Provider Department 04/16/24 ALMA GILL During your visit today, we recorded the following information about you: Priya Pedersen MA 04/16/2024 7:48 AM Signed Form to be signed received from [facility], placed on signing folder Priya Pedersen MA Allergies As of Date: 04/16/2024 Noted Allergy Reaction ANIMAL DANDER 08/21/2022 14 - Other: See Comments Comments: Anything with fur SEASONAL ALLERGIES 08/21/2022 14 - Other: See Comments Comments: Stuffy nose, headaches Date Reviewed: 03/30/2024 Reviewed by: Alma Gill APRN.TAG MACHINE OPERATOR - Fully Assessed Reason for Visit: Electronic Communication [890] Cmt: ORDER: [id number] Forms [913] Prescriptions as of 04/16/2024 - gabapentin (NEURONTIN) 300 mg capsule TAKE 2 CAPSULES BY MOUTH EVERY MORNING AND 3 CAPSULES AT BEDTIME FOR 30 DAYS. Strength: 300 mg - traZODone (DESYREL) 100 mg tablet TAKE 2 TABLETS BY MOUTH DAILY AT BEDTIME - thiamine (VITAMIN B1) 100 mg tablet Take 1 tablet by mouth once daily. - rosuvastatin (CRESTOR) 20 mg tablet Take 1 tablet by mouth daily at bedtime. - pantoprazole DR (PROTONIX) 40 mg tablet Take 1 tablet by mouth once daily. - metoprolol succinate ER (TOPROL XL) 25 mg 24 hr tablet Take 1 tablet by mouth every afternoon. - lisinopril 2.5 mg tablet Take 1 tablet by mouth two times a day. Hold if SBP less than 110 - isosorbide mononitrate ER (IMDUR) 30 mg 24 hr tablet Take 1 tablet by mouth once daily. - furosemide (LASIX) 40 mg tablet Take 1 tablet by mouth three times a week. - ezetimibe (ZETIA) 10 mg tablet Take 1 tablet by mouth once daily. - escitalopram oxalate (LEXAPRO) 20 mg tablet Take 1 tablet by mouth once daily. - colestipol (COLESTID) 1 gram tablet Take 1 tablet by mouth two times a day. - busPIRone (BUSPAR) 5 mg tablet Take 1 tablet by mouth three times a day as needed. - clopidogrel (PLAVIX) 75 mg tablet Take 1 tablet by mouth once daily. - guaiFENesin (MUCINEX) 600 mg 12 hr tablet Take 1 tablet by mouth two times a day as needed for cold/allergy symptoms. - OXYGEN, HOME THERAPY, 3 L/min by Nasal Cannula route as directed. - ipratropium-albuterol (DUONEB) 0.5 mg-3 mg(2.5 mg base)/3 mL nebu Inhale 3 mL as instructed every 4 hours as needed for wheezing/shortness of breath. - fluticasone (FLONASE) 50 mcg/actuation nasal spray spray 1 spray into each nostril every day - tctfivqyrmy-jzrntmoyu-gda anter (TRELEGY ELLIPTA) 200-62.5-25 mcg inhalation powder Inhale 1 Puff as instructed once daily. - nitroglycerin sublingual (NITROSTAT) 0.4 mg SL tablet Dissolve 1 tablet under the tongue every 5 minutes as needed for chest pain. - albuterol sulfate 90 mcg/actuation aebs Inhale 1-2 Puffs as instructed every 4 hours as needed for wheezing/shortness of breath. - sodium chloride 0.65 % nasal spray Use 1 Jaffrey in the nose as needed. - Lactobacillus acidophilus (PROBIOTIC) 10 billion cell cap Take 1 capsule by mouth once daily. - acetaminophen (TYLENOL EXTRA STRENGTH) 500 mg tablet Take 2 tablets by mouth every 8 hours as needed for pain. FOR PAIN. - Zinc 50 mg tab Take 50 mg by mouth once daily. - aspirin, enteric coated (ASPIRIN, ENTERIC COATED) 81 mg EC tablet Take 81 mg by mouth once daily. - multivit-min/folic/vit K/lycop (ONE-A-DAY MEN'S MULTIVITAMIN ORAL) Take by mouth once daily. Problem List As Of Date 04/16/2024 Noted Resolved Essential hypertension [I10] 05/24/2020 Peripheral vascular disease (HCC) [I73.9] 05/24/2020 Chronic back pain [M54.9, G89.29] 05/24/2020 Obesity, Class II, BMI 35-39.9 [E66.812] 05/24/2020 Status post below knee amputation of right lowe*10/22/2020 Chronic diastolic congestive heart failure (HCC*11/23/2021 Coronary artery disease of ione artery of kell*11/23/2021 CVA (cerebral vascular accident) (HCC) [I63.9] 11/23/2021 11/20/2022 Neuropathy [G62.9] 11/23/2021 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1] 06/04/2022 Hyponatremia [E87.1] 06/04/2022 Post PTCA [Z98.61] 08/08/2022 AZRA (acute kidney injury) (HCC) [N17.9] 08/10/2022 01/16/2024 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 Normal [facility] 04-13-2024 CNPN Telephone (AGFAMPLE) ----- MARS PETERSON ([id number]) 1955 M [facility] Date Time Provider Department 04/13/24 ALMA GILL During your visit today, we recorded the following information about you: Suzanne Almaguer MA 04/13/2024 3:04 PM Signed [facility] physical therapist is requesting to extend PT. For once a week for 4 weeks. Please advise. [facility] [phone]. Thank you. VANNA Dawn Brittny A, TECHNICAL APPLICATIONS SCIENTIST.[facility] 04/13/2024 3:49 PM Signed Ok to extend PT sessions. Suzanne Almaguer MA 04/13/2024 4:49 PM Signed Verbal orders given. Suzanne OrtizVANNA mcintyre Allergies As of Date: 04/13/2024 Noted Allergy Reaction ANIMAL DANDER 08/21/2022 14 - Other: See Comments Comments: Anything with fur SEASONAL ALLERGIES 08/21/2022 14 - Other: See Comments Comments: Stuffy nose, headaches Date Reviewed: 03/30/2024 Reviewed by: Alma Gill APRN.TAG MACHINE OPERATOR - Fully Assessed Reason for Visit: Patient Update [1234] Cmt: Extend PT orders Prescriptions as of 04/13/2024 - gabapentin (NEURONTIN) 300 mg capsule TAKE 2 CAPSULES BY MOUTH EVERY MORNING AND 3 CAPSULES AT BEDTIME FOR 30 DAYS. Strength: 300 mg - traZODone (DESYREL) 100 mg tablet TAKE 2 TABLETS BY MOUTH DAILY AT BEDTIME - thiamine (VITAMIN B1) 100 mg tablet Take 1 tablet by mouth once daily. - rosuvastatin (CRESTOR) 20 mg tablet Take 1 tablet by mouth daily at bedtime. - pantoprazole DR (PROTONIX) 40 mg tablet Take 1 tablet by mouth once daily. - metoprolol succinate ER (TOPROL XL) 25 mg 24 hr tablet Take 1 tablet by mouth every afternoon. - lisinopril 2.5 mg tablet Take 1 tablet by mouth two times a day. Hold if SBP less than 110 - isosorbide mononitrate ER (IMDUR) 30 mg 24 hr tablet Take 1 tablet by mouth once daily. - furosemide (LASIX) 40 mg tablet Take 1 tablet by mouth three times a week. - ezetimibe (ZETIA) 10 mg tablet Take 1 tablet by mouth once daily. - escitalopram oxalate (LEXAPRO) 20 mg tablet Take 1 tablet by mouth once daily. - colestipol (COLESTID) 1 gram tablet Take 1 tablet by mouth two times a day. - busPIRone (BUSPAR) 5 mg tablet Take 1 tablet by mouth three times a day as needed. - clopidogrel (PLAVIX) 75 mg tablet Take 1 tablet by mouth once daily. - guaiFENesin (MUCINEX) 600 mg 12 hr tablet Take 1 tablet by mouth two times a day as needed for cold/allergy symptoms. - OXYGEN, HOME THERAPY, 3 L/min by Nasal Cannula route as directed. - ipratropium-albuterol (DUONEB) 0.5 mg-3 mg(2.5 mg base)/3 mL nebu Inhale 3 mL as instructed every 4 hours as needed for wheezing/shortness of breath. - fluticasone (FLONASE) 50 mcg/actuation nasal spray spray 1 spray into each nostril every day - evswczcmxgx-emwqmbfee-gks anter (TRELEGY ELLIPTA) 200-62.5-25 mcg inhalation powder Inhale 1 Puff as instructed once daily. - nitroglycerin sublingual (NITROSTAT) 0.4 mg SL tablet Dissolve 1 tablet under the tongue every 5 minutes as needed for chest pain. - albuterol sulfate 90 mcg/actuation aebs Inhale 1-2 Puffs as instructed every 4 hours as needed for wheezing/shortness of breath. - sodium chloride 0.65 % nasal spray Use 1 Jaffrey in the nose as needed. - Lactobacillus acidophilus (PROBIOTIC) 10 billion cell cap Take 1 capsule by mouth once daily. - acetaminophen (TYLENOL EXTRA STRENGTH) 500 mg tablet Take 2 tablets by mouth every 8 hours as needed for pain. FOR PAIN. - Zinc 50 mg tab Take 50 mg by mouth once daily. - aspirin, enteric coated (ASPIRIN, ENTERIC COATED) 81 mg EC tablet Take 81 mg by mouth once daily. - multivit-min/folic/vit K/lycop (ONE-A-DAY MEN'S MULTIVITAMIN ORAL) Take by mouth once daily. Problem List As Of Date 04/13/2024 Noted Resolved Essential hypertension [I10] 05/24/2020 Peripheral vascular disease (HCC) [I73.9] 05/24/2020 Chronic back pain [M54.9, G89.29] 05/24/2020 Obesity, Class II, BMI 35-39.9 [E66.812] 05/24/2020 Status post below knee amputation of right lowe*10/22/2020 Chronic diastolic congestive heart failure (HCC*11/23/2021 Coronary artery disease of ione artery of kell*11/23/2021 CVA (cerebral vascular accident) ([facility]) [I63.9] 11/23/2021 11/20/2022 Neuropathy [G62.9] 11/23/2021 Osteomyelitis of foot ([facility]) [M86.9] 11/23/2021 09/18/2023 Umbilical hernia [K42.9] 11/23/2021 Pressure injury of right buttock, stage 2 (HCC)*02/01/2022 09/18/2023 Pressure injury of left buttock, stage 2 (HCC) *02/01/2022 09/18/2023 Chest pain [R07.9] 02/01/2022 Essential tremor [G25.0] 02/01/2022 Anxiety and depression [F41.9, F32.A] 02/01/2022 SOB (shortness of breath) [R06.02] 02/15/2022 Impaired fasting glucose [R73.01] 06/04/2022 Mixed hyperlipidemia [E78.2] 06/04/2022 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1] 06/04/2022 Hyponatremia [E87.1] 06/04/2022 Post PTCA [Z98.61] 08/08/2022 AZRA (acute kidney injury) (HCC) [N17.9] 08/10/2022 01/16/2024 Coronary artery 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 Normal [facility] Yamileth 04-02-2024 DIMITRI Normal [facility] Monae 03-30-2024 CNJEREMIE Office Visit (IVETH ROJAS) ----- MARS PETERSON ([id number]) 1955 M DEF Date Time Provider Department 03/30/24 11:20 AM ALMA GILL During your visit today, we recorded the following information about you: Temperature Pulse Respiration Blood pressure 97.9 degrees 59/minute 18/minute 118/54 Height 1.829 m Alma Gill APRN.[facility] 04/06/2024 10:16 AM Signed CHIEF COMPLAINT: Mars Peterson is a 68 year old male who presents for 4 week follow up. I reviewed past medical, surgical, social, and family histories today and updated chart. Allergies, chronic medications, and supplements were also reviewed. His is with him today. He has seen pulmonary medicine since his last OV and an echo and nocturnal oximetry was ordered since he can't do it with ambulation. Pulmonary visit note: HPI: Mars Peterson is a 68 year old male former 80 pack year smoker, quitting 2001 with PMH significant for obesity, CAD s/p CABG, CHF, HTN, PAD, s/p right BKA, neuropathy, asthma with mild COPD, ILD and lung nodule. Current maintenance therapy with Trelegy and as needed Albuterol. Duoneb TID. He presents today for testing follow-up. His TOMMY was 03/13/[address] imaging revealed significant progression of ILD, consistent with IPF. Subsequent autoimmune workup negative. Econsult placed which recommends ILD referral, echo and LFT labs. Reviewed further recommendations. Patient agreeable to proceeding with anti fibrotic therapy. Today, patients reports she hears him coughing more at night. Patient unaware and feels symptoms are at baseline. Cough continues to be productive with thick, white sputum. All other symptoms unchanged. Most notably, continues to have wheezing and exertional dyspnea with minimal exertion. Working with PT d/t ongoing balance/mobility concerns. DME: Greg Currently wearing 2-3L at rest and 4L with exertion. OV 03/02/2024: Mars Peterson is a 68 year old male who presents for Hospital F/U. I reviewed past medical, surgical, social, and family histories today and updated chart. Allergies, chronic medications, and supplements were also reviewed. Oxygen at home is at 3 L continuously at home with concentrator SpO2 was 78% when he arrived into the office today but improved once his portable was placed on continuous Following with pulmonary medicine Has CT chest scheduled on 03/09 Pulmonary testing on 03/13 Seeing pulmonary right after testing Cutting back to 2-3 beers a day Drinking more water Only having pop a few times a week His home RN had called in a coupel weeks ago stating John was feeling more anxious. He was on Hydroxyzine at the time but this was stopped and Buspar was started. He was then started on Lexapro while in the hospital. Per his he has been taking both the Buspar and Hydroxyzine. He only took the Lexapro for 30 days because that is what was sent in after discharge and they did not call in for a refill. Needs BMP rechecked for low sodium. He can't tolerate sodium tablets (upset his stomach per his ). He has has seen nephrology for his kidneys and sodium levels before. He is currently on Lasix 40 mg three times a week. He did not take his dose today because of today's appointment. HOSPITAL COURSE: Mars Peterson is a 68 year old male with PMH of CAD s/p CABG, CHF, HTN, COPD, GERD, ILD, PAD, osteomyelitis s/p R BKA, neuropathy, and pulmonary nodule who presented to [facility] with complaints of shortness of breath that has been ongoing and progressive over the last week with associated generalized weakness on 01/11/2024. He reports he was unable to get up prior to coming to the ED and once he did, he was only able to ambulate very few steps before becoming extremely SOB. He also reported low grade fevers at home. He reports taking lasix three times a week at home. Denies weight gain, leg swelling, ABD bloating, chest pain. In the ED: labs were significant for Na 124; d dimer elevated; BNP 3295; anion gap 16, CO2 20, chloride 88. High-sensitivity troponins 28 but down trended to 22. Chest x-ray showed no acute abnormality but moderate degree of chronic interstitial fibrotic changes. CT of the chest was negative for pulmonary embolism but showed interval development of bilateral groundglass infiltrates most pronounced in the upper lobes felt to represent a superimposed infectious/inflammatory process. Reactive mediastinal and hilar lymphadenopathy present. Patient was started on IV antibiotics, received a dose of furosemide and Solu-Medrol. Treated with breathing treatments and admitted under the hospitalist service for further workup and management of acute respiratory failure with hypoxia as pulse ox was noted at 70% upon arriving to the ED. - patient received IV lasix x3 doses and had large bump in creatinine. Lasix was h (more content not included)... Normal [facility] Hepatic function 2000 panelo n 03-30-2024 Albumin [Mass/Vol] 3.8 g/dL Low 3.9-4.9 [facility] Comment on above: Order Comment: Speci men Type: BLOOD SPECIMENOrdering Facility: [facility] Address: [address] [place] [address] Performed By: #### 2 4325-3 ####[facility] LABCLIA [id number] [facility] [place] [address] [place] ALP [Catalytic activity/Vol] 62 U/L Normal 38-113 [facility] Comment on above: Order Comment: Speci men Type: BLOOD SPECIMENOrdering Facility: [facility] Address: [address] [place] [address] Performed By: #### 2 4325-3 ####[facility]CLIA [id number] [facility] [place] [place] [address] [place] ALT With P-5'-P [Catalytic activity/Vol] 8 U/L Low 10-54 [facility] Comment on above: Order Comment: Speci men Type: BLOOD SPECIMENOrdering Facility: [facility] Address: [address] [place] [address] Performed By: #### 2 4325-3 ####[facility] [id number] [facility] [place] [address] [place] AST With P-5'-P [Catalytic activity/Vol] 15 U/L Normal 14-40 [facility] Comment on above: Order Comment: Speci men Type: BLOOD SPECIMENOrdering Facility: [facility] Address: [address] [place] [address] Performed By: #### 2 4325-3 ####[facility] [id number] [facility] [place] [place] [address] [place] Bilirubin [Mass/Vol] 0.4 mg/dL Normal 0.2-1.3 [facility] Comment on above: Order Comment: Speci men Type: BLOOD SPECIMENOrdering Facility: [facility] Address: [address] [place] [address] Performed By: #### 2 4325-3 ####[facility] LABCLIA [id number] [facility] [place] [place] [address] [facility] Bilirubin.direct [Mass/Vol] mg/dL Normal <0.2 [facility] Comment on above: Order Comment: Specjimmy jignesh Type: BLOOD SPECIMENOrdering Facility: [facility] Address: [address] [place], [place] [id number] Performed By: #### 2 4325-3 ####[facility] LABCLIA [id number] [place] [address] [facility] Protein [Mass/Vol] 7.2 g/dL Normal 6.3-8.0 [facility] Comment on above: Order Comment: Isadorajimmy egan Type: BLOOD SPECIMENOrdering Facility: [facility] Address: [address] [place] [address] Performed By: #### 2 4325-3 ####[facility] LABCLIA [id number] [place] [address] [facility] CNOVon 03-27-2024 CNOV Normal [facility] CNPNon 03-20-2024 CNPN Telephone (AGFAMPLE) ----- MARS PETERSON ([id number]) 1955 M DEF Date Time Provider Department 03/20/24 ALMA GILL During your visit today, we recorded the following information about you: Priya Pedersen MA 03/20/2024 10:57 AM Signed Form received from [facility] placed on signing tray VANNA Rojas Julie, MA 03/20/2024 3:29 PM Signed Form completed and faxed Priya Pedersen MA Allergies As of Date: 03/20/2024 Noted Allergy Reaction ANIMAL DANDER 08/21/2022 14 - Other: See Comments Comments: Anything with fur SEASONAL ALLERGIES 08/21/2022 14 - Other: See Comments Comments: Stuffy nose, headaches Date Reviewed: 03/13/2024 Reviewed by: Mitchell Caruso APRN.TAG MACHINE OPERATOR - Fully Assessed Reason for Visit: Electronic Communication [890] Orders [681] Cmt: Order: [id number] Prescriptions as of 03/20/2024 - OXYGEN, HOME THERAPY, 3 L/min by Nasal Cannula route as directed. - escitalopram oxalate (LEXAPRO) 20 mg tablet Take 1 tablet by mouth once daily. - busPIRone (BUSPAR) 5 mg tablet TAKE 1 TABLET BY MOUTH THREE TIMES A DAY NEEDED - gabapentin (NEURONTIN) 300 mg capsule TAKE 2 CAPSULES BY MOUTH EVERY MORNING AND 3 CAPSULES AT BEDTIME FOR 30 DAYS. Strength: 300 mg - guaiFENesin (MUCINEX) 600 mg 12 hr tablet Take 1 tablet by mouth two times a day as needed for cold/allergy symptoms. - colestipol (COLESTID) 1 gram tablet Take 1 tablet by mouth two times a day. - lisinopril 2.5 mg tablet Take 1 tablet by mouth two times a day. Hold if SBP less than 110 - thiamine (VITAMIN B1) 100 mg tablet Take 1 tablet by mouth once daily. - ipratropium-albuterol (DUONEB) 0.5 mg-3 mg(2.5 mg base)/3 mL nebu Inhale 3 mL as instructed every 4 hours as needed for wheezing/shortness of breath. - metoprolol succinate ER (TOPROL XL) 25 mg 24 hr tablet take 1 tablet by mouth every day - isosorbide mononitrate ER (IMDUR) 30 mg 24 hr tablet take 1 tablet by mouth every day - ezetimibe (ZETIA) 10 mg tablet take 1 tablet by mouth every day - clopidogrel (PLAVIX) 75 mg tablet take 1 tablet by mouth every day - fluticasone (FLONASE) 50 mcg/actuation nasal spray spray 1 spray into each nostril every day - pantoprazole DR (PROTONIX) 40 mg tablet take 1 tablet by mouth every day - traZODone (DESYREL) 100 mg tablet take 2 tablets by mouth daily at bedtime - furosemide (LASIX) 40 mg tablet TAKE 1 TABLET BY MOUTH THREE TIMES A WEEK. - xadiceqqqqn-wlzrpbbjy-olw anter (TRELEGY ELLIPTA) 200-62.5-25 mcg inhalation powder Inhale 1 Puff as instructed once daily. - nitroglycerin sublingual (NITROSTAT) 0.4 mg SL tablet Dissolve 1 tablet under the tongue every 5 minutes as needed for chest pain. - rosuvastatin (CRESTOR) 20 mg tablet Take 1 tablet by mouth daily at bedtime. - albuterol sulfate 90 mcg/actuation aebs Inhale 1-2 Puffs as instructed every 4 hours as needed for wheezing/shortness of breath. - sodium chloride 0.65 % nasal spray Use 1 Jaffrey in the nose as needed. - Lactobacillus acidophilus (PROBIOTIC) 10 billion cell cap Take 1 capsule by mouth once daily. - acetaminophen (TYLENOL EXTRA STRENGTH) 500 mg tablet Take 2 tablets by mouth every 8 hours as needed for pain. FOR PAIN. - Zinc 50 mg tab Take 50 mg by mouth once daily. - aspirin, enteric coated (ASPIRIN, ENTERIC COATED) 81 mg EC tablet Take 81 mg by mouth once daily. - multivit-min/folic/vit K/lycop (ONE-A-DAY MEN'S MULTIVITAMIN ORAL) Take by mouth once daily. Problem List As Of Date 03/20/2024 Noted Resolved Essential hypertension [I10] 05/24/2020 Peripheral vascular disease (HCC) [I73.9] 05/24/2020 Chronic back pain [M54.9, G89.29] 05/24/2020 Obesity, Class II, BMI 35-39.9 [E66.812] 05/24/2020 Status post below knee amputation of right lowe*10/22/2020 Chronic diastolic congestive heart failure (HCC*11/23/2021 Coronary artery disease of ione artery of kell*11/23/2021 CVA (cerebral vascular accident) (HCC) [I63.9] 11/23/2021 11/20/2022 Neuropathy [G62.9] 11/23/2021 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1] 06/04/2022 Hyponatremia [E87.1] 06/04/2022 Post PTCA [Z98.61] 08/08/2022 AZRA (acute kidney injury) (HCC) [N17.9] 08/10/2022 01/16/2024 Coronary artery 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 Normal [facility] CNPNon 03-19-2024 CNPN Telephone (AGFAMPLE) ----- MARS PETERSON ([id number]) 1955 M [facility] Date Time Provider Department 03/19/24 ALMA GILL During your visit today, we recorded the following information about you: Priya Pedersen MA 03/19/2024 9:22 AM Signed Form received from [facility] placed on signing tray they are wanting it completed urgently VANNA Rojas Julie, MA 03/20/2024 9:06 AM Signed Form has been completed and faxed back Priya Pedersen MA Allergies As of Date: 03/19/2024 Noted Allergy Reaction ANIMAL DANDER 08/21/2022 14 - Other: See Comments Comments: Anything with fur SEASONAL ALLERGIES 08/21/2022 14 - Other: See Comments Comments: Stuffy nose, headaches Date Reviewed: 03/13/2024 Reviewed by: Mitchell Caruso APRN.CNP - Fully Assessed Reason for Visit: Electronic Communication [890] Forms [913] Prescriptions as of 03/20/2024 - OXYGEN, HOME THERAPY, 3 L/min by Nasal Cannula route as directed. - escitalopram oxalate (LEXAPRO) 20 mg tablet Take 1 tablet by mouth once daily. - busPIRone (BUSPAR) 5 mg tablet TAKE 1 TABLET BY MOUTH THREE TIMES A DAY NEEDED - gabapentin (NEURONTIN) 300 mg capsule TAKE 2 CAPSULES BY MOUTH EVERY MORNING AND 3 CAPSULES AT BEDTIME FOR 30 DAYS. Strength: 300 mg - guaiFENesin (MUCINEX) 600 mg 12 hr tablet Take 1 tablet by mouth two times a day as needed for cold/allergy symptoms. - colestipol (COLESTID) 1 gram tablet Take 1 tablet by mouth two times a day. - lisinopril 2.5 mg tablet Take 1 tablet by mouth two times a day. Hold if SBP less than 110 - thiamine (VITAMIN B1) 100 mg tablet Take 1 tablet by mouth once daily. - ipratropium-albuterol (DUONEB) 0.5 mg-3 mg(2.5 mg base)/3 mL nebu Inhale 3 mL as instructed every 4 hours as needed for wheezing/shortness of breath. - metoprolol succinate ER (TOPROL XL) 25 mg 24 hr tablet take 1 tablet by mouth every day - isosorbide mononitrate ER (IMDUR) 30 mg 24 hr tablet take 1 tablet by mouth every day - ezetimibe (ZETIA) 10 mg tablet take 1 tablet by mouth every day - clopidogrel (PLAVIX) 75 mg tablet take 1 tablet by mouth every day - fluticasone (FLONASE) 50 mcg/actuation nasal spray spray 1 spray into each nostril every day - pantoprazole DR (PROTONIX) 40 mg tablet take 1 tablet by mouth every day - traZODone (DESYREL) 100 mg tablet take 2 tablets by mouth daily at bedtime - furosemide (LASIX) 40 mg tablet TAKE 1 TABLET BY MOUTH THREE TIMES A WEEK. - fquukivfgsv-kwbfymxvp-uti anter (TRELEGY ELLIPTA) 200-62.5-25 mcg inhalation powder Inhale 1 Puff as instructed once daily. - nitroglycerin sublingual (NITROSTAT) 0.4 mg SL tablet Dissolve 1 tablet under the tongue every 5 minutes as needed for chest pain. - rosuvastatin (CRESTOR) 20 mg tablet Take 1 tablet by mouth daily at bedtime. - albuterol sulfate 90 mcg/actuation aebs Inhale 1-2 Puffs as instructed every 4 hours as needed for wheezing/shortness of breath. - sodium chloride 0.65 % nasal spray Use 1 Jaffrey in the nose as needed. - Lactobacillus acidophilus (PROBIOTIC) 10 billion cell cap Take 1 capsule by mouth once daily. - acetaminophen (TYLENOL EXTRA STRENGTH) 500 mg tablet Take 2 tablets by mouth every 8 hours as needed for pain. FOR PAIN. - Zinc 50 mg tab Take 50 mg by mouth once daily. - aspirin, enteric coated (ASPIRIN, ENTERIC COATED) 81 mg EC tablet Take 81 mg by mouth once daily. - multivit-min/folic/vit K/lycop (ONE-A-DAY MEN'S MULTIVITAMIN ORAL) Take by mouth once daily. 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] 11/23/2021 09/18/2023 Umbilical hernia [K42.9] 11/23/2021 Pressure injury of right buttock, stage 2 (HCC)*02/01/2022 09/18/2023 Pressure injury of left buttock, stage 2 (HCC) *02/01/2022 09/18/2023 Chest pain [R07.9] 02/01/2022 Essential tremor [G25.0] 02/01/2022 Anxiety and depression [F41.9, F32.A] 02/01/2022 SOB (shortness of breath) [R06.02] 02/15/2022 Impaired fasting glucose [R73.01] 06/04/2022 Mixed hyperlipidemia [E78.2] 06/04/2022 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1] 06/04/2022 Hyponatremia [E87.1] 06/04/2022 Post PTCA [Z98.61] 08/08/2022 AZRA (acute kidney injury) (HCC) [N17.9] 08/10/2022 01/16/2024 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 Normal [facility] CNPN Telephone (AGFAMPLE) ----- MARS PETERSON ([id number]) 1955 M [facility] Date Time Provider Department 03/17/24 ALMA GILL During your visit today, we recorded the following information about you: Precious Lacy MA 03/17/2024 3:19 PM Signed Royer PT with [facility] called stating he did patient's re-cert today and will be continuing to see patient once a week for 5 weeks. Precious Lacy MA Allergies As of Date: 03/17/2024 Noted Allergy Reaction ANIMAL DANDER 08/21/2022 14 - Other: See Comments Comments: Anything with fur SEASONAL ALLERGIES 08/21/2022 14 - Other: See Comments Comments: Stuffy nose, headaches Date Reviewed: 03/13/2024 Reviewed by: Mitchell Caruso APRN.TAG MACHINE OPERATOR - Fully Assessed Reason for Visit: Patient Update [1234] Prescriptions as of 03/17/2024 - OXYGEN, HOME THERAPY, 3 L/min by Nasal Cannula route as directed. - escitalopram oxalate (LEXAPRO) 20 mg tablet Take 1 tablet by mouth once daily. - busPIRone (BUSPAR) 5 mg tablet TAKE 1 TABLET BY MOUTH THREE TIMES A DAY NEEDED - gabapentin (NEURONTIN) 300 mg capsule TAKE 2 CAPSULES BY MOUTH EVERY MORNING AND 3 CAPSULES AT BEDTIME FOR 30 DAYS. Strength: 300 mg - guaiFENesin (MUCINEX) 600 mg 12 hr tablet Take 1 tablet by mouth two times a day as needed for cold/allergy symptoms. - colestipol (COLESTID) 1 gram tablet Take 1 tablet by mouth two times a day. - lisinopril 2.5 mg tablet Take 1 tablet by mouth two times a day. Hold if SBP less than 110 - thiamine (VITAMIN B1) 100 mg tablet Take 1 tablet by mouth once daily. - ipratropium-albuterol (DUONEB) 0.5 mg-3 mg(2.5 mg base)/3 mL nebu Inhale 3 mL as instructed every 4 hours as needed for wheezing/shortness of breath. - metoprolol succinate ER (TOPROL XL) 25 mg 24 hr tablet take 1 tablet by mouth every day - isosorbide mononitrate ER (IMDUR) 30 mg 24 hr tablet take 1 tablet by mouth every day - ezetimibe (ZETIA) 10 mg tablet take 1 tablet by mouth every day - clopidogrel (PLAVIX) 75 mg tablet take 1 tablet by mouth every day - fluticasone (FLONASE) 50 mcg/actuation nasal spray spray 1 spray into each nostril every day - pantoprazole DR (PROTONIX) 40 mg tablet take 1 tablet by mouth every day - traZODone (DESYREL) 100 mg tablet take 2 tablets by mouth daily at bedtime - furosemide (LASIX) 40 mg tablet TAKE 1 TABLET BY MOUTH THREE TIMES A WEEK. - vcaxnymsdcp-pbdfnrfav-jrb anter (TRELEGY ELLIPTA) 200-62.5-25 mcg inhalation powder Inhale 1 Puff as instructed once daily. - nitroglycerin sublingual (NITROSTAT) 0.4 mg SL tablet Dissolve 1 tablet under the tongue every 5 minutes as needed for chest pain. - rosuvastatin (CRESTOR) 20 mg tablet Take 1 tablet by mouth daily at bedtime. - albuterol sulfate 90 mcg/actuation aebs Inhale 1-2 Puffs as instructed every 4 hours as needed for wheezing/shortness of breath. - sodium chloride 0.65 % nasal spray Use 1 Jaffrey in the nose as needed. - Lactobacillus acidophilus (PROBIOTIC) 10 billion cell cap Take 1 capsule by mouth once daily. - acetaminophen (TYLENOL EXTRA STRENGTH) 500 mg tablet Take 2 tablets by mouth every 8 hours as needed for pain. FOR PAIN. - Zinc 50 mg tab Take 50 mg by mouth once daily. - aspirin, enteric coated (ASPIRIN, ENTERIC COATED) 81 mg EC tablet Take 81 mg by mouth once daily. - multivit-min/folic/vit K/lycop (ONE-A-DAY MEN'S MULTIVITAMIN ORAL) Take by mouth once daily. 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] 11/23/2021 09/18/2023 Umbilical hernia [K42.9] 11/23/2021 Pressure injury of right buttock, stage 2 (HCC)*02/01/2022 09/18/2023 Pressure injury of left buttock, stage 2 (HCC) *02/01/2022 09/18/2023 Chest pain [R07.9] 02/01/2022 Essential tremor [G25.0] 02/01/2022 Anxiety and depression [F41.9, F32.A] 02/01/2022 SOB (shortness of breath) [R06.02] 02/15/2022 Impaired fasting glucose [R73.01] 06/04/2022 Mixed hyperlipidemia [E78.2] 06/04/2022 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1] 06/04/2022 Hyponatremia [E87.1] 06/04/2022 Post PTCA [Z98.61] 08/08/2022 AZRA (acute kidney injury) (HCC) [N17.9] 08/10/2022 01/16/2024 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 Normal [facility] ALDOLASE BLDon 03-13-2024 Aldolase [Catalytic activity/Vol] 3.5 mU/mL 1.5 - 8.1 U/L [facility] Comment on above: This test was develo ped, and its performance characteristics determined by the [facility] Department of Pathology and Laboratory Medicine. It has not been cleared or approved by the FDA. The [facility] Department of Pathology and Laboratory Medicine is regulated under CLIA as qualified to perform high-complexity testing. This test is used for clinical purposes. It should not be regarded as investigational or for research. Aldolase [Catalytic activity /Vol]on 03-13-2024 Interpretation and review of laboratory results Normal [facility] C-REACTIVE PROTEINon CRP [Mass/Vol] 0.3 mg/dL NINF - 0.9 mg/dL [facility] CREATINE KINASE/CKon CK [Catalytic activity/Vol] 83 U/L 51 - 298 U/L [facility] LUNG VOLUMESon 03-13-2024 DLCO (ml/min/mmHg) 8.76 ml/min/mmHg [facility] DLCO LLN (ml/min/mmHg) 16.88 ml/min/mmHg C [facility] DLCO PREDICTED (ml/min/mmHg) 26.81 ml/min/mmHg [facility] DLCO ULN (ml/min/mmHg) 36.75 ml/min/mmHg C [facility] DLCO/VA (ml/min/mmHg/L) 3.21 ml/min/mmHg /L [facility] DLCO/VA PREDICTED (ml/min/mmHg/L) 3.80 ml/min/mmHg /L [facility] DLCOcor PREDICTED (ml/min/mmHg) 26.81 ml/min/mmHg [facility] ERV BOX (L) 0.63 L [facility] ERV PREDICTED (L) 1.45 L/S [facility] FRC Gas (L) 2.41 L [facility] IC BOX (L) 1.17 L [facility] IC PREDICTED (L) 2.91 L/S [facility] RV Box PREDICTED (L) 2.57 L [facility] RV Gas (L) 1.76 L [facility] RV Gas PREDICTED (L) 2.57 L [facility] RV/TLC Box PREDICTED (%) 36 % [facility] RV/TLC Gas (%) 49 % [facility] RV/TLC Gas PREDICTED (%) 36 L [facility] SVC LLN (L) 3.24 L/S [facility] SVC PREDICTED (L) 4.36 L/S [facility] SVC ULN (L) 5.49 L/S [facility] TLC Box PREDICTED (L) 7.43 L [facility] TLC Gas (L) 3.60 L [facility] TLC Gas PREDICTED (L) 7.43 L [facility] VA (L) 2.73 L [facility] VA PREDICTED (L) 7.21 L [facility] VC (L) BOX 1.97 L [facility] No Panel Informationon 03-13 Interpretation and review of laboratory results Normal [facility] [address] [place] [address] Test Date: 2024-03-13 Pat Name: MARS PETERSON Department: Room: Gender: Male Air Quality Manager: : 1955 Requested By: Order Number: [id number] Reading MD: Francisco Patel MD Interpretive Statements Current ATS/ERS acceptability and repeatability standards for DLCO met with 2 acceptable maneuvers. Only one acceptable or usable maneuver obtained for multiple breath washout. Repeatability could not be assessed. Results should be interpreted with caution. IMPRESSION: Severity of restriction cannot be assessed. See RT comments above. The diffusing capacity (uncorrected for hemoglobin) is reduced. Electronically Signed On 03-13-2024 16:55:17 EDT by Francisco Patel MD ID: [id number] Name: MARS PETERSON Race: White Ht: 72.00 in Wt: 274.00 lbs Age: 68 Gender: Male : 1955 Dx: Idiopathic interstitial pulmonary disease_ Smoking Hx: Non-smoker Doctor: FRANCISCO PATEL Test Date: 03/13/2024 Site: Tech: Beba Rose PRE-BRONCH POST-BRONCH Pre LLN Pred ULN %Pred Post %Pred %Chg LUNG VOLUMES FRC (N2) (L) 2.41 2.80 3.98 5.16 60 ERV (L) 0.63 1.45 43 RV (N2) (L) 1.76 1.96 2.57 3.19 68 SVC (L) 1.97 3.24 4.36 5.49 45 IC (L) 1.17 2.91 40 TLC (N2) (L) 3.60 6.13 7.43 8.74 48 RV/TLC (N2) (%) 49 29 36 43 136 LUNG DIFFUSION DLCOunc (ml/min/mmHg) 8.76 16.88 26.81 36.75 32 VA (L) 2.73 5.84 7.21 8.57 37 DLunc/VA (ml/min/mmHg/L) 3.21 2.60 3.80 5.00 84 BHT (sec) 11.27 IVC (L) 1.89 Comments: Current ATS/ERS acceptability and repeatability standards for DLCO met with 2 acceptable maneuvers. Only one acceptable or usable maneuver obtained for multiple breath washout. Repeatability could not be assessed. Results should be interpreted with caution. PULMONARY FUNCTION LAB [facility] OXIMETRY WITH AMBULATIONon 1 05-13-2023 Beba Rose RPF T 03/13/2024 1:49 PM Patient is unable to walk safely with walker to obtain ambulatory oximetry data. BebaRANJITH [place] [facility] OXIMETRY WITH AMBULATIONOrde red By: Beba Rose on 03-13-2024 [facility] RHEUMATOID FACTORon 03-13-20 Rheumatoid factor Qn NINF [place] Basic metabolic 2000 panelon 03-09-2024 Anion gap [Moles/Vol] 9 mmol/L Normal 8-15 [facility] Comment on above: Order Comment: Speci men Type: BLOOD SPECIMENOrdering Facility: [facility] Address: [address] [place] [address] Performed By: #### 3 3762-6, 51354-3 ####[facility] [place] LABCLIA [id number] [place] [address] [place] Calcium [Mass/Vol] 9.3 mg/dL Normal 8.5-10.2 [facility] Comment on above: Order Comment: Speci men Type: BLOOD SPECIMENOrdering Facility: [facility] Address: [address] [place] [address] Performed By: #### 3 3762-6, 39130-7 ####[facility] LABCLIA [id number] [place] [address] [place] Chloride [Moles/Vol] 91 mmol/L Low 98-107 [facility] Comment on above: Order Comment: Speci men Type: BLOOD SPECIMENOrdering Facility: [facility] Address: [address] [place] [id number] Performed By: #### 3 3762-6, 33355-4 ####[facility] [place] LABCLIA [id number] [place] [address] [place] CO2 [Moles/Vol] 29 mmol/L Normal 22-30 [facility] Comment on above: Order Comment: Speci men Type: BLOOD SPECIMENOrdering Facility: [facility] Address: [address] [id number] Performed By: #### 3 3762-6, 28105-0 ####[facility] LABCL[facility] [id number] [place] [address] [place] Creatinine [Mass/Vol] 0.93 mg/dL Normal 0.73-1.22 [facility] Comment on above: Order Comment: Elgin egan Type: BLOOD SPECIMENOrdering Facility: [facility] Address: [address] [place] [address] Performed By: #### 3 3762-6, 81159-2 ####[facility] LAB[facility] [id number] [place] [address] [facility] Creatinine and Glomerular filtration rate.predicted panel (S/P/Bld) 88 mL/min/1.73m??? Normal >=60 [facility] Comment on above: Order Comment: Elgin egan Type: BLOOD SPECIMENOrdering Facility: [facility] Address: [address] [place] [address] Result Comment: Tamika mated Glomerular Filtration Rate (eGFR) is calculated using the 2020 CKD-EPI creatinine equation. This equation utilizes serum creatinine, sex, and age as parameters. The creatinine assay has traceable calibration to isotope dilution-mass spectrometry. Refer to KDIGO guidelines for clinical interpretation. In patients with unstable renal function, e.g. those with acute kidney injury, the eGFR may not accurately reflect actual GFR. Performed By: #### 3 3762-6, 24893-0 ####[facility] LABIA [id number] [place] [address] [place] Glucose [Mass/Vol] 108 mg/dL High 74-99 [facility] Comment on above: Order Comment: Elgin egan Type: BLOOD SPECIMENOrdering Facility: [facility] Address: [address] [place] [address] Result Comment: The [place] Diabetes Association (ADA) provides guidance for cutoff values for fasting glucose and random glucose. The ADA defines fasting as no caloric intake for at least 8 hours. Fasting plasma glucose results between 100 to 125 mg/dL indicate increased risk for diabetes (prediabetes). Fasting plasma glucose results greater than or equal to 126 mg/dL meet the criteria for diagnosis of diabetes. In the absence of unequivocal hyperglycemia, results should be confirmed by repeat testing. In a patient with classic symptoms of hyperglycemia or hyperglycemic crisis, random plasma glucose results greater than or equal to 200 mg/dL meet the criteria for diagnosis of diabetes. Reference: Standards of [facility] Diabetes 2016, [place] [employer]. Diabetes Care. 2016.39(Suppl 1). Performed By: #### 3 3762-6, 98486-9 ####[facility] [employer] LABCLIA [id number] [place] [address] [facility] Potassium [Moles/Vol] 4.6 mmol/L Normal 3.7-5.1 [facility] Comment on above: Order Comment: Elgin egan Type: BLOOD SPECIMENOrdering Facility: [facility] Address: [address] [place] [address] Performed By: #### 3 3762-6, 63076-7 ####[facility] [employer] LABCLIA [id number] [place] [id number] [facility] Sodium [Moles/Vol] 129 mmol/L Low 136-144 [facility] Comment on above: Order Comment: Elgin egan Type: BLOOD SPECIMENOrdering Facility: [facility] Address: [address] [place] [address] Performed By: #### 3 3762-6, 88766-5 ####[facility] [employer] LABCLIA [id number] [place] [address] [facility] Urea nitrogen [Mass/Vol] 7 mg/dL Low 9-24 [facility] Comment on above: Order Comment: Elgin egan Type: BLOOD SPECIMENOrdering Facility: [facility] Address: [address] [place] [address] Performed By: #### 3 3762-6, 71718-7 ####[facility] [employer] LABCLIA [id number] [place] [address] [facility] Yamileth 03-09-2024 DIMITRI Telephone (MUKESH) ----- MARS PETERSON ([id number]) 1955 M DEF Date Time Provider Department 03/09/24 ALMA GILL During your visit today, we recorded the following information about you: Priya Pedersen MA 03/09/2024 4:18 PM Signed ----- Message from Alma Gill APRN.TAG MACHINE OPERATOR sent at 03/09/2024 3:26 PM EDT ----- BNP is stable BMP showed kidney function is stable. Sodium was 129 which is up from 126. How is his breathing? Priya Pedersen MA 03/09/2024 4:20 PM Signed Patient's is informed and states his breathing is better since doing breathing treatments Priya Pedersen MA Allergies As of Date: 03/09/2024 Noted Allergy Reaction ANIMAL DANDER 08/21/2022 14 - Other: See Comments Comments: Anything with fur SEASONAL ALLERGIES 08/21/2022 14 - Other: See Comments Comments: Stuffy nose, headaches Date Reviewed: 03/02/2024 Reviewed by: Alma Gill APRN.TAG MACHINE OPERATOR - Fully Assessed Reason for Visit: Results [95] Prescriptions as of 03/09/2024 - busPIRone (BUSPAR) 5 mg tablet TAKE 1 TABLET BY MOUTH THREE TIMES A DAY NEEDED - escitalopram oxalate (LEXAPRO) 20 mg tablet Take 1 tablet by mouth once daily. - gabapentin (NEURONTIN) 300 mg capsule TAKE 2 CAPSULES BY MOUTH EVERY MORNING AND 3 CAPSULES AT BEDTIME FOR 30 DAYS. Strength: 300 mg - guaiFENesin (MUCINEX) 600 mg 12 hr tablet Take 1 tablet by mouth two times a day as needed for cold/allergy symptoms. - colestipol (COLESTID) 1 gram tablet Take 1 tablet by mouth two times a day. - lisinopril 2.5 mg tablet Take 1 tablet by mouth two times a day. Hold if SBP less than 110 - thiamine (VITAMIN B1) 100 mg tablet Take 1 tablet by mouth once daily. - ipratropium-albuterol (DUONEB) 0.5 mg-3 mg(2.5 mg base)/3 mL nebu Inhale 3 mL as instructed every 4 hours as needed for wheezing/shortness of breath. - metoprolol succinate ER (TOPROL XL) 25 mg 24 hr tablet take 1 tablet by mouth every day - isosorbide mononitrate ER (IMDUR) 30 mg 24 hr tablet take 1 tablet by mouth every day - ezetimibe (ZETIA) 10 mg tablet take 1 tablet by mouth every day - clopidogrel (PLAVIX) 75 mg tablet take 1 tablet by mouth every day - fluticasone (FLONASE) 50 mcg/actuation nasal spray spray 1 spray into each nostril every day - pantoprazole DR (PROTONIX) 40 mg tablet take 1 tablet by mouth every day - traZODone (DESYREL) 100 mg tablet take 2 tablets by mouth daily at bedtime - furosemide (LASIX) 40 mg tablet TAKE 1 TABLET BY MOUTH THREE TIMES A WEEK. - duxzztngyzm-jnuquxefv-ait anter (TRELEGY ELLIPTA) 200-62.5-25 mcg inhalation powder Inhale 1 Puff as instructed once daily. - nitroglycerin sublingual (NITROSTAT) 0.4 mg SL tablet Dissolve 1 tablet under the tongue every 5 minutes as needed for chest pain. - rosuvastatin (CRESTOR) 20 mg tablet Take 1 tablet by mouth daily at bedtime. - albuterol sulfate 90 mcg/actuation aebs Inhale 1-2 Puffs as instructed every 4 hours as needed for wheezing/shortness of breath. - sodium chloride 0.65 % nasal spray Use 1 Jaffrey in the nose as needed. - Lactobacillus acidophilus (PROBIOTIC) 10 billion cell cap Take 1 capsule by mouth once daily. - acetaminophen (TYLENOL EXTRA STRENGTH) 500 mg tablet Take 2 tablets by mouth every 8 hours as needed for pain. FOR PAIN. - Zinc 50 mg tab Take 50 mg by mouth once daily. - aspirin, enteric coated (ASPIRIN, ENTERIC COATED) 81 mg EC tablet Take 81 mg by mouth once daily. - ascorbic acid, vitamin C, (VITAMIN C) 500 mg tablet Take 500 mg by mouth once daily. - multivit-min/folic/vit K/lycop (ONE-A-DAY MEN'S MULTIVITAMIN ORAL) Take by mouth once daily. Problem List As Of Date 03/09/2024 Noted Resolved Essential hypertension [I10] 05/24/2020 Peripheral vascular disease (HCC) [I73.9] 05/24/2020 Chronic back pain [M54.9, G89.29] 05/24/2020 Obesity, Class II, BMI 35-39.9 [E66.812] 05/24/2020 Status post below knee amputation of right lowe*10/22/2020 Chronic diastolic congestive heart failure (HCC*11/23/2021 Coronary artery disease of ione artery of kell*11/23/2021 CVA (cerebral vascular accident) (HCC) [I63.9] 11/23/2021 11/20/2022 Neuropathy [G62.9] 11/23/2021 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1] 06/04/2022 Hyponatremia [E87.1] 06/04/2022 Post PTCA [Z98.61] 08/08/2022 AZRA (acute kidney injury) (HCC) [N17.9] 08/10/2022 01/16/2024 Coronary artery dissection [I25.4 (more content not included)... Normal [facility] CT CHEST WO IVCONon 03-09-[address] CHEST WO IVCON * * *Final Report* * * DATE OF EXAM: Mar 09 2024 2:24PM [facility] 0541 - CT CHEST WO IVCON / PROCEDURE REASON: Interstitial pulmonary disease (HCC) * * * * Physician Interpretation * * * * EXAMINATION: CHEST CT WITHOUT CONTRAST CLINICAL HISTORY: Interstitial lung disease. Technique: Spiral CT acquisition of the chest from the thoracic inlet to the upper abdomen without contrast. MQ: [id number] CT Radiation dose: Integrated Dose-length product (DLP) for this visit = 463.42 mGy*cm CT Dose Reduction Employed: mAs-kVp adjusted based on patient size-age Comparison: 01/11/2024 and 05/20/2023 RESULT: Limitations: None. Lines, tubes, and devices: None. Lung parenchyma and airways: Compared to 01/11/2024 there is been significant interval resolution of bilateral groundglass opacities with a few residual groundglass opacities noted in the left lung apex. Bilateral peripheral and lower lung predominant reticular opacities with traction bronchiectasis and honeycombing appears slightly progressed from 01/11/2024 and definitely progressed from 05/20/2023. No definite air-trapping on expiratory phase images. No new suspicious pulmonary nodule though evaluation is somewhat limited by extensive interstitial disease. No new consolidation. Pleural space: No pleural effusion. No pleural thickening. Lower neck, lymph nodes, and mediastinum: The imaged thyroid gland is normal. Similar mildly enlarged mediastinal lymph nodes which are likely reactive. Heart, pericardium, and thoracic vessels: Severe ione coronary artery desiccation. Status post CABG. Normal heart size. Aortic leaflet calcifications. Dilation of the pulmonary trunk measuring 3.5 cm.. No significant pericardial fluid. Bones and soft tissues: Mild bilateral gynecomastia. Median sternotomy. No suspicious osseous lesions. Upper abdomen: No abnormality in the imaged upper abdomen. Localizer images: No additional findings. IMPRESSION: Previous noted groundglass opacities have almost completely resolved. There is been significant interval progression of bilateral interstitial lung disease compared to 05/20/2023 favoring UIP over fibrotic type NSIP. Dilation of the pulmonary trunk which can be seen pulmonary hypertension. Stable mildly enlarged mediastinal lymph nodes which are likely reactive. No new suspicious nodule. Hot Wire Glass Tube Cutter: WENCESLAO Transcribe Date/Time: Mar 13 2024 2:12P Dictated by : MATT REYES MD This examination was interpreted and the report reviewed and electronically signed by: MATT REYES MD on Mar 13 2024 2:28PM EST [id number] Normal [facility] Natriuretic peptide.B prohormone N-Terminal [Mass/Vol] 503 pg/mL High <125 [facility] Comment on above: Order Comment: Speci men Type: BLOOD SPECIMENOrdering Facility: [facility] Address: [address] [place] [address] Performed By: #### 3 3762-6, 94900-7 ####[facility] [employer] LABCLIA [id number] [place] [address] [place] BNP,B-Type NATRIURETIC PEPTI Layla 02-11-2024 Natriuretic peptide B (Bld) [Mass/Vol] 187.7 pg/mL High 0-100 [facility] Comment on above: Performed By: #### L 500.2500, L503.6620 #### [facility] [address] [place], [address] Basic Metabolic Profile (BMP )on 02-11-2024 BUN/CRE 5.3 RATIO Low 10-20 [facility] Comment on above: Performed By: #### L 500.2500, L503.6620 #### [facility] [address] [place], [address] CA,Total 8.9 mg/dL Normal 8.5-10.1 [facility] Comment on above: Performed By: #### L 500.2500, L503.6620 #### [facility] [address] [place], [address] Chloride [Moles/Vol] 96 mmol/L Low 98-107 [facility] Comment on above: Performed By: #### L 500.2500, L503.6620 #### [facility] [address] [place], [address] CO2 [Moles/Vol] 27.0 mmol/L Normal 21.0-32.0 [facility] Comment on above: Performed By: #### L 500.2500, L503.6620 #### [facility] [address] [place], [address] Creatinine [Mass/Vol] 0.95 mg/dL Normal 0.70-1.30 [facility] Comment on above: Result Comment: The validity of the calculated GFR GFRAA in patients over 70 years has not been determined. Clinical correlation is essential. Performed By: #### L 500.2500, L503.6620 #### [facility] [address] [place], [address] EST GFR - AA 101 mL/min Normal >60 [facility] Comment on above: Result Comment: Afri can [place] GFR Calc Performed By: #### L 500.2500, L503.6620 #### [facility] [address] [place], [address] GAP 7 Normal 5-15 [facility] Comment on above: Performed By: #### L 500.2500, L503.6620 #### [facility] [address] [place], [address] GFR/1.73 sq M.predicted among non-blacks MDRD (S/P/Bld) [Vol rate/Area] 83 mL/min/{1.73_m2} Normal >60 [facility] Comment on above: Result Comment: Non- GFR Calc Performed By: #### L 500.2500, L503.6620 #### [facility] [address] [place], [address] Glucose [Mass/Vol] 75 mg/dL Normal 74-106 [facility] Comment on above: Performed By: #### L 500.2500, L503.6620 #### [facility] [address] [place], [address] Potassium [Moles/Vol] 4.3 mmol/L Normal 3.5-5.1 [facility] Comment on above: Performed By: #### L 500.2500, L503.6620 #### [facility] [address] [place], [address] Sodium [Moles/Vol] 130 mmol/L Low 136-145 [facility] Comment on above: Performed By: #### L 500.2500, L503.6620 #### [facility] [address] [place], [address] Urea nitrogen [Mass/Vol] 5 mg/dL Low 7-18 [facility] Comment on above: Performed By: #### L 500.2500, L503.6620 #### [facility] [address] [place], [address] ANES POSTPROC EVALon 024 ANES POSTPROC EVAL HNO ID: [id number] Author: BRADLY DUMONT MD Service: Anesthesiology Author Type: Anesthesiologist Type: Anesthesia Postprocedure Evaluation Filed: 11/29/2023 09:49 Note Text: POST ANESTHESIA EVALUATION NOTE : 1955 Procedure Summary Date: 11/29/23 Room / Location: [facility] Endoscopy Anesthesia Start: 755 Anesthesia Stop: 904 Procedure: COLONOSCOPY SCREENING Diagnosis: Screening for colon cancer (Screening for colorectal malignant neoplasm) Scheduled Providers: Rosemary Russell MD; Bradly Dumont MD; Buddy Gallegos APRN.COLOR SHOP HELPER Responsible Provider: Bradly Dumont MD Anesthesia Type: MAC ASA Status: 3 Anesthesia Type: MAC Last Vitals Vitals Value Taken Time BP 168/77 11/29/2330 Temp 36 ?C (96.8 ?F) 11/29/23929 Pulse 51 11/29/23929 Resp 20 11/29/23 09 SpO2 96 % 11/29/23929 Post Anesthesia Patient Status Patient Evaluation: PACU. PACU/ICU Patient Condition: stable. Anticipated Disposition: phase 2 then home. Neurological Status: aware and responsive. Pulmonary Status: breathing comfortably on room air Airway Control: returned to baseline unsupported. Cardiovascular Status: stable. Pain Management: clinically adequate - multimodal analgesia pain management approach Postoperative Hydration: acceptable. Intraoperative Events: no significant anesthesia events Recommendation: continue current plan of care. Anesthesia Observations No Documentation SIGNATURE: Bradly Dumont MD PATIENT NAME: Mars Peterson DATE: November 29, 2023 TIME: 9:48 AM CSN: [id number] Normal [facility] ANES PRE-OPon 11-29-2023 ANES PRE-OP HNO ID: [id number] Author: BRADLY DUMONT MD Service: Anesthesiology Author Type: Anesthesiologist Type: Anesthesia Preprocedure Evaluation Filed: 11/29/2023 07:24 Note Text: ANESTHESIOLOGY DAY OF SURGERY NOTE : 1955 Procedure Information Date/Time: 11/29/23814 Scheduled providers: Rosemary Russell MD; Bradly Dumont MD; Buddy Gallegos APRN.COLOR SHOP HELPER Procedure: COLONOSCOPY SCREENING Location: [facility] Endoscopy Estimated body mass index is 36.02 kg/m? as calculated from the following: Height as of 04/23/23: 185.4 cm (6' 1"). Weight as of 09/09/23: 123.8 kg (273 lb). Most recent hematocrit and potassium results: Hematocrit 44.5 03/14/2023 Potassium 4.9 10/24/2023 Relevant Problems No relevant active problems I - PHYSICAL EVALUATION AIRWAY Patient intubated: No. Tracheostomy tube not present Mallampati: II. TM distance: >3 FB. Neck ROM: full ROM without neurological symptoms. Mouth opening: adequate. Short neck: no. Thick neck: no Additional exam findings: no II - ANESTHESIA PLAN ASA Score: 3 Anesthetic Plan: MAC NPO Status: adequate Beta Winston Monitoring Plan Monitoring plan: standard ASA. Post Procedure Analgesic Plan Postoperative analgesic plan: parenteral or oral opioids and multimodal analgesia. Informed Consent Anesthetic risks, benefits, alternatives, personnel and consent discussed: yes. Patient / Responsible Alliance Party agrees to proceed: yes Patient / Surrogate agrees to blood products: Yes Significant changes in the patient condition since the History and Physical, not otherwise documented in primary service progress note: no. No vitals data found for the desired time range. Outpatient Medications as of 11/29/2023 Medication Sig gabapentin (NEURONTIN) 300 mg capsule TAKE 2 CAPSULES BY MOUTH EVERY MORNING AND 3 CAPSULES AT BEDTIME FOR 30 DAYS. Strength: [address] (PROTONIX) 40 mg tablet take 1 tablet by mouth every day traZODone (DESYREL) 100 mg tablet take 2 tablets by mouth daily at bedtime lisinopril (ZESTRIL) 10 mg tablet take 1 tablet by mouth every day furosemide (LASIX) 40 mg tablet TAKE 1 TABLET BY MOUTH THREE TIMES A WEEK. escitalopram oxalate (LEXAPRO) 20 mg tablet take 1 tablet by mouth every day colestipol (COLESTID) 1 gram tablet TAKE 1 TABLET BY MOUTH TWICE A DAY fluticasone (FLONASE) 50 mcg/actuation nasal spray SPRAY 1 SPRAY INTO EACH NOSTRIL EVERY DAY lmcuguhyhjm-vopstkjah-jle anter (TRELEGY ELLIPTA) 200-62.5-25 mcg inhalation powder Inhale 1 Puff as instructed once daily. clopidogrel (PLAVIX) 75 mg tablet take 1 tablet by mouth every day isosorbide mononitrate ER (IMDUR) 30 mg 24 hr tablet TAKE 1 TABLET BY MOUTH EVERY DAY hydrOXYzine HCl (ATARAX) 25 mg tablet take 1 tablet by mouth four times a day metoprolol succinate ER (TOPROL XL) 25 mg 24 hr tablet take 1 tablet by mouth every day nitroglycerin sublingual (NITROSTAT) 0.4 mg SL tablet Dissolve 1 tablet under the tongue every 5 minutes as needed for chest pain. rosuvastatin (CRESTOR) 20 mg tablet Take 1 tablet by mouth daily at bedtime. diphenoxylate-atropine (LOMOTIL) 2.5-0.025 mg per tablet Take 2 tablets by mouth before meals and at bedtime for 7 days. Stop once diarrhea resolves. (Patient not taking: Reported on 09/09/2023) psyllium husk (METAMUCIL) 0.4 gram cap Take by mouth. albuterol sulfate 90 mcg/actuation aebs Inhale 1-2 Puffs as instructed every 4 hours as needed for wheezing/shortness of breath. ezetimibe (ZETIA) 10 mg tablet Take 1 tablet by mouth once daily. sodium chloride 0.65 % nasal spray Use 1 Jaffrey in the nose as needed. Lactobacillus acidophilus (PROBIOTIC) 10 billion cell cap Take 1 capsule by mouth once daily. acetaminophen (TYLENOL EXTRA STRENGTH) 500 mg tablet Take 2 tablets by mouth every 8 hours as needed for pain. FOR PAIN. Zinc 50 mg tab Take 50 mg by mouth once daily. aspirin, enteric coated (ASPIRIN, ENTERIC COATED) 81 mg EC tablet Take 81 mg by mouth once daily. ascorbic acid, vitamin C, (VITAMIN C) 500 mg tablet Take 500 mg by mouth once daily. multivit-min/folic/vit K/lycop (ONE-A-DAY MEN'S MULTIVITAMIN ORAL) Take by mouth once daily. Facility-Administered Medications as of 11/29/2023 Medication Dose Route Frequency lidocaine (PF) 10 mg/mL (1 %) 1-2 mg injection (XYLOCAINE) 0.1-0.2 mL INTRADERMAL PRN lactated ringers iv infusion 30 mL/hr INTRAVENOUS CONTINUOUS I have interviewed and examined the patient. I have reviewed the medical record and/or the pre-anesthesia evaluation, pertinent labs, and test results. This contains updated information obtained within 48 hours of Surgery/Procedure. SIGNATURE: Bradly Dumont MD PATIENT NAME: Mars Peterson DATE: November 29, 2023 TIME: 7:24 AM CSN: [id number] [facility]2023 Colonoscopy [facility] Patient Name: Mars Peterson Procedure Date: 11/29/2023 7:49 AM Date of : 1955 Admit Type: Outpatient Age: 68 Room: [facility] Gender: Male Note Status: Finalized Attending MD: Rosemary Russell MD, [id number] Procedure: Colonoscopy Indications: Screening for colorectal malignant neoplasm Providers: Rosemary Russell MD Patient Profile: Refer to note in patient chart for documentation of history and physical. Last Colonoscopy: 2006. Referring Physician: Mone Dominguez (Referring ) Medicines: See the Anesthesia note for documentation of the administered medications Complications: No immediate complications. Requesting Provider: Procedure: Pre-Anesthesia Assessment: - Monitored anesthesia care under the supervision of a COLOR SHOP HELPER was determined to be medically necessary for this procedure based on review of the patient's medical history, medications, and prior anesthesia history. After I obtained informed consent, the scope was passed under direct vision. Throughout the procedure, the patient's blood pressure, pulse, and oxygen saturations were monitored continuously. The Colonoscope was introduced through the anus and advanced to the cecum, identified by the appendiceal orifice, IC valve and transillumination. The colonoscopy was technically difficult and complex due to a redundant colon and significant looping. Successful completion of the procedure was aided by increasing the dose of sedation medication and applying abdominal pressure. The rectum, ilececal valve and appendiceal orifice was photographed. The patient tolerated the procedure well. The quality of the bowel preparation was suboptimal. There was still retained fecal material which required lavage and aspiration to visualize the ramirez adequately. This was done, but took some time, however, the ramirez were visualized adequately. Scope Withdrawal Time: 0 hours 10 minutes 27 seconds Moderate Sedation: MAC anesthesia was administered by the anesthesia team. Total Procedure Duration: 0 hours 50 minutes 6 seconds Findings: The perianal and digital rectal examinations were normal. Non-bleeding internal hemorrhoids were found. Impression: - Non-bleeding internal hemorrhoids. - No specimens collected. Recommendation: - Repeat colonoscopy in 10 years for screening purposes. (to be done by a literacy specialist) - Return to primary care physician PRN. - Patient has a contact number available for emergencies. The signs and symptoms of potential delayed complications were discussed with the patient. Return to normal activities tomorrow. Written discharge instructions were provided to the patient. - Continue present medications. - Resume previous diet. Procedure Code(s): --- Professional --- G0121, Colorectal cancer screening; colonoscopy on individual not meeting criteria for high risk Diagnosis Code(s): --- Professional --- K64.8, Other hemorrhoids Z12.11, Encounter for screening for malignant neoplasm of colon CPT copyright 2020 [employer]. All rights reserved. The codes documented in this report are preliminary and upon director of medical staff services review may be revised to meet current compliance requirements. Attending Participation: I personally performed the entire procedure. Scope In: 8:05:57 AM Scope Out: 8:56:03 AM MD Rosemary Kong MD 11/29/2023 9:02:02 AM This report has been signed electronically by Rosemary Russell MD Number of Addenda: 0 Note Initiated On: 11/29/2023 7:49 AM Estimated Blood Loss: Estimated blood loss: none. Normal [facility] Colonoscopy Study observatio non 11-29-2023 [facility] Gastrointestinal Endoscopy Patient Name: Mars Peterson Procedure Date: 11/29/2023 7:49 AM Date of : 1955 Admit Type: Outpatient Age: 68 Room: [facility] Gender: Male Note Status: Finalized Attending MD: Rosemary Russell MD, [id number] Procedure: Colonoscopy Indications: Screening for colorectal malignant neoplasm Providers: Rosemary Russell MD Patient Profile: Refer to note in patient chart for documentation of history and physical. Last Colonoscopy: 2006. Referring Physician: Mone Dominguez (Referring MD) Medicines: See the Anesthesia note for documentation of the administered medications Complications: No immediate complications. Requesting Provider: Procedure: Pre-Anesthesia Assessment: - Monitored anesthesia care under the supervision of a COLOR SHOP HELPER was determined to be medically necessary for this procedure based on review of the patient's medical history, medications, and prior anesthesia history. After I obtained informed consent, the scope was passed under direct vision. Throughout the procedure, the patient's blood pressure, pulse, and oxygen saturations were monitored continuously. The Colonoscope was introduced through the anus and advanced to the cecum, identified by the appendiceal orifice, IC valve and transillumination. The colonoscopy was technically difficult and complex due to a redundant colon and significant looping. Successful completion of the procedure was aided by increasing the dose of sedation medication and applying abdominal pressure. The rectum, ilececal valve and appendiceal orifice was photographed. The patient tolerated the procedure well. The quality of the bowel preparation was suboptimal. There was still retained fecal material which required lavage and aspiration to visualize the ramirez adequately. This was done, but took some time, however, the ramirez were visualized adequately. Scope Withdrawal Time: 0 hours 10 minutes 27 seconds Moderate Sedation: MAC anesthesia was administered by the anesthesia team. Total Procedure Duration: 0 hours 50 minutes 6 seconds Findings: The perianal and digital rectal examinations were normal. Non-bleeding internal hemorrhoids were found. Impression: - Non-bleeding internal hemorrhoids. - No specimens collected. Recommendation: - Repeat colonoscopy in 10 years for screening purposes. (to be done by a literacy specialist) - Return to primary care physician PRN. - Patient has a contact number available for emergencies. The signs and symptoms of potential delayed complications were discussed with the patient. Return to normal activities tomorrow. Written discharge instructions were provided to the patient. - Continue present medications. - Resume previous diet. Procedure Code(s): --- Professional --- G0121, Colorectal cancer screening; colonoscopy on individual not meeting criteria for high risk Diagnosis Code(s): --- Professional --- K64.8, Other hemorrhoids Z12.11, Encounter for screening for malignant neoplasm of colon CPT copyright 2020 [employer]. All rights reserved. The codes documented in this report are preliminary and upon director of medical staff services review may be revised to meet current compliance requirements. Attending Participation: I personally performed the entire procedure. Scope In: 8:05:57 AM Scope Out: 8:56:03 AM MD Rosemary Kong MD 11/29/2023 9:02:02 AM This report has been signed electronically by Rosemary Russell MD Number of Addenda: 0 Note Initiated On: 11/29/2023 7:49 AM Estimated Blood Loss: Estimated blood loss: none. PROVATION [facility] Radiology Study observation (narrative) [facility] HISTORY PHYSICALon HISTORY PHYSICAL HNO ID: [id number] Author: ROSEMARY RUSSELL MD Service: General Surgery Author Type: Physician Type: H&P Filed: 11/29/2023 07:54 Note Text: HISTORY AND PHYSICAL Mars Peterson 1955 REFERRING PHYSICIAN: Mone Robertson PA-C CHIEF COMPLAINT: No chief complaint on file. 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 DJD (degenerative joint disease) Essential hypertension Heart attack ([facility]) 1999 States his previous animal trainer told him he had a heart attack based on EKG (in [place]) Neuropathy Osteomyelitis of foot ([facility]) Peripheral vascular disease ([facility]) S/P CABG (coronary artery bypass graft) Umbilical hernia PAST SURGICAL HISTORY Procedure Laterality Date BACK SURGERY HX 2017 CABG (1) VEIN GRAFT AND ARTERIAL GRAFT 2002 CABG x4 COLONOSCOPY 2006 FINGER AMPUTATION (SPECIFY DIGIT) HX HIP SURGERY HX 2000 1999, 2019 Replacement Right and left LEG AMPUTATION HX Right 2018 PAST SURGICAL HISTORY OF coccyx REMV CATARACT EXTRACAP,INSERT LENS Bilateral Current Outpatient Medications Medication Sig gabapentin (NEURONTIN) 300 mg capsule TAKE 2 CAPSULES BY MOUTH EVERY MORNING AND 3 CAPSULES AT BEDTIME FOR 30 DAYS. Strength: [address] (PROTONIX) 40 mg tablet take 1 tablet by mouth every day traZODone (DESYREL) 100 mg tablet take 2 tablets by mouth daily at bedtime lisinopril (ZESTRIL) 10 mg tablet take 1 tablet by mouth every day furosemide (LASIX) 40 mg tablet TAKE 1 TABLET BY MOUTH THREE TIMES A WEEK. escitalopram oxalate (LEXAPRO) 20 mg tablet take 1 tablet by mouth every day colestipol (COLESTID) 1 gram tablet TAKE 1 TABLET BY MOUTH TWICE A DAY fluticasone (FLONASE) 50 mcg/actuation nasal spray SPRAY 1 SPRAY INTO EACH NOSTRIL EVERY DAY zwvvgadrhcz-yymwzapjc-kpt anter (TRELEGY ELLIPTA) 200-62.5-25 mcg inhalation powder Inhale 1 Puff as instructed once daily. clopidogrel (PLAVIX) 75 mg tablet take 1 tablet by mouth every day isosorbide mononitrate ER (IMDUR) 30 mg 24 hr tablet TAKE 1 TABLET BY MOUTH EVERY DAY hydrOXYzine HCl (ATARAX) 25 mg tablet take 1 tablet by mouth four times a day metoprolol succinate ER (TOPROL XL) 25 mg 24 hr tablet take 1 tablet by mouth every day nitroglycerin sublingual (NITROSTAT) 0.4 mg SL tablet Dissolve 1 tablet under the tongue every 5 minutes as needed for chest pain. rosuvastatin (CRESTOR) 20 mg tablet Take 1 tablet by mouth daily at bedtime. diphenoxylate-atropine (LOMOTIL) 2.5-0.025 mg per tablet Take 2 tablets by mouth before meals and at bedtime for 7 days. Stop once diarrhea resolves. (Patient not taking: Reported on 09/09/2023) psyllium husk (METAMUCIL) 0.4 gram cap Take by mouth. albuterol sulfate 90 mcg/actuation aebs Inhale 1-2 Puffs as instructed every 4 hours as needed for wheezing/shortness of breath. ezetimibe (ZETIA) 10 mg tablet Take 1 tablet by mouth once daily. sodium chloride 0.65 % nasal spray Use 1 Jaffrey in the nose as needed. Lactobacillus acidophilus (PROBIOTIC) 10 billion cell cap Take 1 capsule by mouth once daily. acetaminophen (TYLENOL EXTRA STRENGTH) 500 mg tablet Take 2 tablets by mouth every 8 hours as needed for pain. FOR PAIN. Zinc 50 mg tab Take 50 mg by mouth once daily. aspirin, enteric coated (ASPIRIN, ENTERIC COATED) 81 mg EC tablet Take 81 mg by mouth once daily. ascorbic acid, vitamin C, (VITAMIN C) 500 mg tablet Take 500 mg by mouth once daily. multivit-min/folic/vit K/lycop (ONE-A-DAY MEN'S MULTIVITAMIN ORAL) Take by mouth once daily. ALLERGIES: Animal Dander and Seasonal Allergies PERSONAL HISTORY: Social History Tobacco Use Smoking status: Former Packs/day: 2.00 Years: 40.00 Additional pack years: 0.00 Total pack years: 80.00 Types: Cigarettes Quit date: 05/13/2001 Years since quittin.5 Smokeless tobacco: Former Types: Chew Vaping Use Vaping Use: Never used Substance Use Topics Alcohol use: Yes Comment: Occasional Drug use: Never FAMILY HISTORY Problem Relation Age of Onset Ovarian cancer Mother other (afib) Mother COPD Mother Heart Father heart attack other (Chronic oxygen) Father other (bladder cancer) Maternal Aunt Cancer Maternal Aunt Cancer Maternal Uncle Heart Paternal Uncle Leukemia Paternal Uncle Colon Cancer No Family History REVIEW OF SYSTEMS: Denies fevers Denies chest pain Denies shortness of breath Physical examination: Vital signs in chart, reviewed and noted by me General - WD/WN in no apparent distress, alert and oriented Head - Normocephalic. EOM intact with sclera clear. Mouth with mucus membranes moist. Neck - supple with no jugular venous distention noted. Trachea is midline. Lungs - normal breath juvenal (more content not included)... Normal [facility] Colonoscopy Study observatio non 06-20-2023 [facility] EGD Study observation Narrat iveon 06-20-2023 [facility] Gastrointestinal pathogens i dentified EVELIO+probe Nom (Stl)on 02-08-2023 Campylobacter sp DNA EVELIO+probe Nom (Unsp spec) Not detected Not Detected [facility] Salmonella sp DNA EVELIO+probe Ql (Unsp spec) Not detected Not Detected [facility] Shiga toxin stx gene EVELIO+probe Nom (Unsp spec) Not detected Not Detected [facility] Shigella sp DNA EVELIO+probe Ql (Unsp spec) Not detected Not Detected [facility] CDIFF PCR W/RFLX EIA IF POSI TIVEon 02-07-2023 C. difficile toxin genes EVELIO+probe Ql (Stl) Negative Negative for C. difficile toxin by PCR [facility] FECAL OCCULT BLOOD TESTon Lower GI hemoglobin IA Ql (Stl) Positive Abnormal Negative [facility] SPIROMETRY WITH DILATOR IF O BSTRUCTEDon 11-20-2022 MUZ07-88% POST (L/S) 1.11 L/S [facility] UME57-50% PRE (L/S) 0.89 L/S [facility] FEV1 PRE (L) 2.09 L [facility] FEV1/FVC POST (%) 66 % [facility] FEV1/FVC PRE (%) 64 % [facility] FEV1_POST (L) 2.20 L [facility] FVC POST (L) 3.32 L [facility] FVC PRE (L) 3.29 L [facility] PEF POST (L/S) 6.22 L/S [facility] PEF PRE (L/S) 5.57 L/S [facility] XR CHEST 2V FRONTAL/LATon [facility] CT CHEST W IVCON PEon 2022 Radiology Result ACTIONABLE Abnormal [facility] D-DIMERon 08-21-2022 Fibrin D-dimer FEU (PPP) [Mass/Vol] 1310 ng/mL FEU High <500 ng/mL U [facility] Fibrin D-dimer FEU (PPP) [Ma ss/Vol]on 08-21-2022 D Dimer Age-related Cutoff 690 ng/mL FEU [facility] NT PRO BNPon 08-21-2022 Natriuretic peptide.B prohormone N-Terminal [Mass/Vol] 821 pg/mL High <125 pg/mL [facility] URINE CULTUREon 02-22-2022 Bacteria identified Cx Nom (U) 50,000-<100,000 CFU/ml Enterococcus faecalis Abnormal [facility] Bacteria identified Cx Nom (U) 5,000 - <10,000 CFU/ml Normal urogenital yaya [facility] ECHOon 02-20-2022 [facility] UA DIP, URINE (POC)on 2021 BILIRUBIN UA (POCT) Negative Negative [facility] CLARITY UA (POCT) Slightly Cloudy [facility] COLOR UA (POCT) Yellow [facility] GLUCOSE UA (POCT) Negative Negative mg/dL [facility] HEMOGLOBIN/BLOOD UA (POCT) Small Abnormal Negative [facility] KETONE UA (POCT) Negative Negative mg/dL [facility] LEUKOCYTES UA (POCT) Large Abnormal Negative [facility] NITRITE [facility]A (POCT) Negative Negative [facility] PH UA (POCT) 7.0 4.5 - 8.0 [facility] Protein Ql (U) Negative Negative mg/dL [facility] SPECIFIC GRAVITY UA (POCT) 1.015 1.005 - 1.030 [facility] UROBILINOGEN UA (POCT) 1.0 E.U./dL Siomara l E.U./dL [facility] XR CHEST 2V FRONTAL/LATon [facility] CBC W Auto Differential pane l (Bld)on 02-01-2022 Basophils (Bld) [#/Vol] 0.03 10*3/uL <0.11 k/uL [facility] Basophils/100 WBC (Bld) 0.3 % [facility] Differential cell count method Nom (Bld) Auto [facility] Eosinophils (Bld) [#/Vol] 0.31 10*3/uL <0.46 k/uL [facility] Eosinophils/100 WBC (Bld) 3.4 % [facility] Erythrocyte distribution width (RBC) [Ratio] 14.7 % 11.5 - 15.0 % [facility] Hematocrit (Bld) [Volume fraction] 43.8 % 39.0 - 51.0 % [facility] Hemoglobin (Bld) [Mass/Vol] 13.8 g/dL 13.0 - 17.0 g/dL [facility] Lymphocytes (Bld) [#/Vol] 1.65 10*3/uL 1.00 - 4.00 k/uL [facility] Lymphocytes/100 WBC (Bld) 18.2 % [facility] MCH (RBC) [Entitic mass] 26.1 pg 26.0 - 34.0 pg [facility] MCHC (RBC) [Mass/Vol] 31.5 g/dL 30.5 - 36.0 g/dL [facility] MCV (RBC) [Entitic vol] 82.8 fL 80.0 - 100.0 fL [facility] Monocytes (Bld) [#/Vol] 1.34 10*3/uL High <0.87 k/uL [facility] Monocytes/100 WBC (Bld) 14.8 % [facility] Neutrophils (Bld) [#/Vol] 5.75 10*3/uL 1.45 - 7.50 k/uL [facility] Neutrophils/100 WBC (Bld) 63.3 % [facility] Platelet mean volume (Bld) [Entitic vol] 9.6 fL 9.0 - 12.7 fL [facility] Platelets (Bld) [#/Vol] 229 10*3/uL 150 - 400 k/uL [facility] RBC (Bld) [#/Vol] 5.29 10*6/uL 4.20 - 6.0 0 m/uL [facility] WBC (Bld) [#/Vol] 9.08 10*3/uL 3.70 - 11.00 k/uL [facility] Comprehensive metabolic 2000 panelon 02-01-2022 Albumin [Mass/Vol] 3.7 g/dL Low 3.9 - 4.9 g/dL [facility] ALP [Catalytic activity/Vol] 75 U/L 38 - 113 U/L [facility] ALT With P-5'-P [Catalytic activity/Vol] 12 U/L 10 - 54 U/L [facility] Anion gap [Moles/Vol] 10 mmol/L 9 - 18 mmol/L [facility] AST With P-5'-P [Catalytic activity/Vol] 20 U/L 14 - 40 U/L [facility] Bilirubin [Mass/Vol] 0.4 mg/dL 0.2 - 1 .3 mg/dL [facility] Calcium [Mass/Vol] 9.2 mg/dL 8.5 - 10. 2 mg/dL [facility] Chloride [Moles/Vol] 93 mmol/L Low 97 - 10 5 mmol/L [facility] CO2 [Moles/Vol] 28 mmol/L 22 - 30 mmol/L [facility] Creatinine [Mass/Vol] 1.32 mg/dL High 0.73 - 1.22 mg/dL [facility] Estimated Glomerular Filtration Rate 59 mL/min/1.73m Low >=60 mL/min/1.73 m [facility] Glucose [Mass/Vol] 111 mg/dL High 74 - 99 mg/dL [facility] Potassium [Moles/Vol] 4.6 mmol/L 3.7 - 5.1 mmol/L [facility] Protein [Mass/Vol] 7.4 g/dL 6.3 - 8.0 g/dL [facility] Sodium [Moles/Vol] 131 mmol/L Low 136 - 144 mmol/L [facility] Urea nitrogen [Mass/Vol] 8 mg/dL Low 9 - 24 mg/dL [facility] Lipid 1996 panelon 2 Cholesterol [Mass/Vol] 204 mg/dL High <200 mg/dL [facility] Cholesterol in HDL [Mass/Vol] 39 mg/dL Low >39 mg/dL [facility] Cholesterol in LDL [Mass/Vol] 130 mg/dL High <100 mg/dL [facility] Cholesterol in LDL/Cholesterol in HDL [Mass ratio] 3.33 {ratio} High <2.54 [facility] Cholesterol in VLDL [Mass/Vol] 35 mg/dL High <30 mg/dL [facility] Cholesterol non HDL [Mass/Vol] 165 mg/dL High <130 mg/dL [facility] Cholesterol.total/Chol esterol in HDL [Mass ratio] 5.23 {ratio} High <5.10 [facility] Fasting Time 12 hrs [facility] Triglyceride [Mass/Vol] 173 mg/dL High <150 mg/dL [facility] MAGNESIUM BLDon 02-01-2022 Magnesium [Mass/Vol] 2.0 mg/dL 1.7 - 2 .3 mg/dL [facility] NT PRO BNPon 02-01-2022 Natriuretic peptide.B prohormone N-Terminal [Mass/Vol] 575 pg/mL High <125 pg/mL [facility] VITAMIN B12 BLOODon 02-02-20 Cobalamin (Vitamin B12) [Mass/Vol] 447 pg/mL 232 - 1,245 pg/mL [facility] CT C-SPINE WO CONTRASTon CT C-SPINE WO CONTRAST Patient Name: MARS PETERSON STUDY: CT HEAD WO CONTRAST; CT C-SPINE WO CONTRAST; 10/15/2021 9:06 pm INDICATION: fall . COMPARISON: None. ACCESSION NUMBER(S): [id number]; [id number] ORDERING CLINICIAN: RICHARD NIETO TECHNIQUE: Noncontrast CT images of head. Axial noncontrast CT images of the cervical spine with coronal and sagittal reconstructed images. FINDINGS: BRAIN PARENCHYMA: Small area of encephalomalacia in the right inferior frontal lobe and left temporal lobe may be from old trauma or infarct. Delong-white matter interfaces are otherwise preserved. No mass effect or midline shift. HEMORRHAGE: No acute intracranial hemorrhage. VENTRICLES and EXTRA-AXIAL SPACES: Normal size. EXTRACRANIAL SOFT TISSUES: Small left parieto-occipital scalp hematoma. PARANASAL SINUSES/MASTOIDS: The visualized paranasal sinuses and mastoid air cells are aerated. CALVARIUM: No depressed skull fracture. No destructive osseous lesion. OTHER FINDINGS: None. CERVICAL SPINE: ALIGNMENT: Normal. VERTEBRAE: No acute fracture. SPINAL CANAL: Multiple degenerative disc changes, moderate at C5-6. No significant spinal canal stenosis. Multilevel facet and uncovertebral arthropathy with moderate bilateral neural foraminal stenosis at C5-6. PREVERTEBRAL SOFT TISSUES: No prevertebral soft tissue swelling. LUNG APICES: Reticular interstitial thickening in the right lung apex, most likely scarring. OTHER FINDINGS: None. IMPRESSION: No acute intracranial abnormality. Small left parieto-occipital scalp hematoma. Small areas of encephalomalacia in the right inferior frontal lobe and left temporal lobe may be from prior trauma or infarct. No acute fracture or traumatic subluxation of the cervical spine. Electronically signed by: KISHA LONG MD [facility] CT HEAD WO CONTRASTon 2021 CT HEAD WO CONTRAST Patient Name: MARS PETERSON STUDY: CT HEAD WO CONTRAST; CT C-SPINE WO CONTRAST; 10/15/2021 9:06 pm INDICATION: fall . COMPARISON: None. ACCESSION NUMBER(S): [id number]; [id number] ORDERING CLINICIAN: RICHARD NIETO TECHNIQUE: Noncontrast CT images of head. Axial noncontrast CT images of the cervical spine with coronal and sagittal reconstructed images. FINDINGS: BRAIN PARENCHYMA: Small area of encephalomalacia in the right inferior frontal lobe and left temporal lobe may be from old trauma or infarct. Delong-white matter interfaces are otherwise preserved. No mass effect or midline shift. HEMORRHAGE: No acute intracranial hemorrhage. VENTRICLES and EXTRA-AXIAL SPACES: Normal size. EXTRACRANIAL SOFT TISSUES: Small left parieto-occipital scalp hematoma. PARANASAL SINUSES/MASTOIDS: The visualized paranasal sinuses and mastoid air cells are aerated. CALVARIUM: No depressed skull fracture. No destructive osseous lesion. OTHER FINDINGS: None. CERVICAL SPINE: ALIGNMENT: Normal. VERTEBRAE: No acute fracture. SPINAL CANAL: Multiple degenerative disc changes, moderate at C5-6. No significant spinal canal stenosis. Multilevel facet and uncovertebral arthropathy with moderate bilateral neural foraminal stenosis at C5-6. PREVERTEBRAL SOFT TISSUES: No prevertebral soft tissue swelling. LUNG APICES: Reticular interstitial thickening in the right lung apex, most likely scarring. OTHER FINDINGS: None. IMPRESSION: No acute intracranial abnormality. Small left parieto-occipital scalp hematoma. Small areas of encephalomalacia in the right inferior frontal lobe and left temporal lobe may be from prior trauma or infarct. No acute fracture or traumatic subluxation of the cervical spine. Electronically signed by: KISHA LONG MD [facility] Provider Note - ED v3on Provider Note - ED v3 Provider Note: Chart Review: ED NOTES ED NOTES: HPI: Patient is a 66-year-old male chief complaint of fall/head pain/laceration. Patient does admit to drinking alcohol tonight. He has a prosthetic right lower leg. He typically is in the wheelchair about 75% of the time but walks with a walker. He was using his walker going up stairs but on third step lost his balance and fell backwards. He struck his head on the concrete garage floor. Denies any loss of consciousness. No neck pain. No focal neurologic complaints. He has chronic back pain. No anterior chest pain or radiating symptoms. No shortness of breath. No abdominal pain. Tetanus is up-to-date ROS: All systems are negative other than as noted in HPI. Physical Exam I have reviewed the triage vital signs. Const: Well nourished, well developed, appears stated age, no acute distress Eyes: PERRL, EOM intact, no conjunctival injection, vision grossly normal HENT: Neck supple without meningismus , Moist mucous membranes, no pharyengeal swelling or exudate CV: Regular rate and rhythm, Warm, well-perfused extremities. Chest non tender RESP: Lungs clear bilaterally, Unlabored respiratory effort GI: soft, non-tender, non-distended, no masses : MSK: No gross deformities appreciated Skin: Warm, dry. No rashes. Left occipital scalp laceration horizontal irregular edges abrasion right hand. Neuro: Alert and oriented x4, GCS 15 , fancy needleworker II-XII grossly intact. Sensation and motor function of extremities grossly intact. Psych: Appropriate mood and affect. HISTORY OF PRESENTING ILLNESS MARS is a 66 year old Male and was seen by me at 15-Oct-2021 20:51 for a chief complaint of fall (States walked from the garage to the house and fell backwards 3 steps on a cement floor.)(1). Triage Information: Most recent Vital Sign Value Date Temp (F): 97.2 10-15-2021 21:08 Temp (C): 36.2 10-15-2021 21:08 Heart Rate (beats/min): 61 10-15-2021 21:08 Respirations (breaths/min): 22 10-15-2021 21:08 SpO2 (%): 95 10-15-2021 21:08 BP Systolic (mm Hg): 132 10-15-2021 21:08 BP Diastolic (mm Hg): 76 10-15-2021 21:08 PAST MEDICAL HISTORY ALLERGIES/INTOLERANCES: Allergy Status Unknown HEALTH HISTORY: No documented data. OUTPATIENT MEDICATIONS: Home Medications Review Status for Reconciliation: N/A Med Status: N/A No documented data. SIGNIFICANT EVENTS: No documented data. CRITICAL CARE RESULTS: Radiology Results: Impression: No acute intracranial abnormality. Small left parieto-occipital scalp hematoma. Small areas of encephalomalacia in the right inferior frontal lobe and left temporal lobe may be from prior trauma or infarct. No acute fracture or traumatic subluxation of the cervical spine. CT C Spine without Contrast [Oct 15 2021 9:51PM] Impression: No acute intracranial abnormality. Small left parieto-occipital scalp hematoma. Small areas of encephalomalacia in the right inferior frontal lobe and left temporal lobe may be from prior trauma or infarct. No acute fracture or traumatic subluxation of the cervical spine. CT Head without Contrast [Oct 15 2021 9:51PM] VITAL SIGNS: T PRBP SpO2O2(LPM) %FiO2 Method 15-Oct-2021 21:08:[id number] 95 room air, no respiratory support MDM MDM/ED COURSE: CT scan head and neck negative. Seizure note: Suture note: Patient had a sick centimeter horizontal laceration left occipital scalp. It was actively bleeding. Edges are irregular. Good local anesthesia was achieved with 10 cc 1% lidocaine with epinephrine. The laceration was 6 cm. Wound edges were approximated with 9 lauri. Bleeding was then controlled. Patient tolerated procedure well. No complications. DISPOSITION Diagnosis/Annotation: ED Dx Name:Scalp laceration, initial encounter Code:S01.01XA Disposition: discharged Type: home CONSULT CRITICAL CARE TIME Is this a critically ill patient: no Electronic Signatures: Richard Nieto) (Signed 15-Oct-2021 22:20) Authored: ED Notes, HPI, PMH, PE, Results/Vital Signs, MDM/ED Course, Clinical Impression, Attestation, Chart Review, Scores Last Updated: 15-Oct-2021 22:20 by Richard Nieto () References: 1. Data Referenced From "Triage - ED" 15-Oct-2021 21:08 [facility] Triage - EDon 10-15-2021 Triage - ED Quick Triage: The patient and/or guardian verbally acknowledges placement for services into the following (when Urgent Care Service hours are operating):emergency department Chart Review: ARRIVAL INFORMATION Mode of Arrival: ambulance Agency: [facility] Agency Name: James CHIEF COMPLAINT MARS PETERSON is a Male patient with a chief complaint of fall (States walked from the garage to the house and fell backwards 3 steps on a cement floor.). Onset of the Complaint: 15-Oct-2021 Triage Date/Time: 15-Oct-2021 21:08 CORY: 3 Pain Rating (0-10): 3 = Mild Vital Signs: Temperature: 97.2F ( 36.2C) taken oral Blood Pressure: 132/76 Mean: Heart Rate: 61 Respiratory Rate: 22 Pulse Oximetry: 95% on room air, no respiratory support. Height: 6 feet 1.00 inches. 185.4 CM Weight: 282.1 pounds. Calculated 128.0 kg. (stated) Calculated BMI (kg/m2): 37.238 Calculated BSA (m2) 2.57 Alfred Coma Scale: Best Eye Response: (E4) spontaneous Best Motor Response: (M6) obeys commands Best Verbal Response: (V5) oriented [place] Score: 15 Cough lasting greater than 3 weeks: no Patient immunocompromised related to: N/A Allergies: no Patient has homicidal thoughts: no Symptoms Are POSITIVE For: abrasion (Rt hand) and bleeding (Skull). Risk Screens Suicide Risk Screen In the Past Month: Have you wished you were or wished you could go to sleep and not wake up no In the Past Month: Have you had any actual thoughts of killing yourself no In Your Lifetime: Have you ever done anything, started to do anything, or prepared to do anything to end your life no [place] Fall Scale Screening Has the patient fallen before (or is the patient in the ED as a result of a fall) has not had a fall Does the patient have an impaired gait does not have impaired gait Is the patient cognitively impaired not cognitively impaired Interventions: [place] Fall Interventions: LOW INTERVENTIONS: *patient oriented to surroundings and call system, * patient/family falls education completed and documented, *patients fall status communicated during bedside handoff, *whiteboard updated, *mode of toileting discussed with patient, *bed in low position with brakes locked, *call light in reach, * non-skid footwearlow interventions except: patient oriented to surroundings and call systemlow interventions except: patient/family falls education completed and documentedlow interventions except: patients fall status communicated during bedside handoff, whiteboard updatedlow interventions except: mode of toileting discussed with patientlow interventions except: bed in low position with brakes lockedlow interventions except: call light in reach and low interventions except: non-skid footwear TRAVEL HISTORY Travel History Coronavirus Screening: no exposure or symptoms Travel Exposure History: NO travel to International locations in the past 30 days PAIN Pain Scale Used: MICHAEL Pain Rating (0-10): 3 = Mild Past Medical History: Past Medical History Reviewedyes Electronic Signatures: Siria Golden (SUPV) (Signed 15-Oct-2021 21:17) Authored: Quick Triage, Risk Screens, Pain, Travel History, Chart Review, Scores, Past Medical History Last Updated: 15-Oct-2021 21:17 by Siria Golden (SUPV) [facility] Established Visit (Orthopaed ic Surgery)on 07-05-2020 Established Visit (Orthopaedic Surgery) Diagnoses/Problems Assessed Other closed intra-articular fracture of distal end of left radius, initial encounter (813.42) (F69.757F) Provider Impressions Assessment: Left distal radius intra-articular nondisplaced fracture Plan: Today, cast was removed and was placed into a cock-up wrist splint where he will continue nonweightbearing status for the next 2 weeks. He will come out twice a day to work on wrist range of motion. After 2 weeks, he will discontinue the brace and start activities as tolerated. Follow-up in 1 month x-rays if having issues Chief Complaint PATIENT IS HERE FOR 4 WEEK FOLLOW UP LEFT WRIST FRACTURE. STATES THAT HE IS IN NO PAIN AND SWELLING. FINGER MOVEMENT IS GOOD. 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 XRAYS DONE History of Present Illness Pt here for follow up of his left distal radius fracture on 05-20-20. he denies pain. compliant with NWB status. denies new injury. 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,G63) Surgical History Problems History of Back surgery History of Finger surgical procedure History of Heart surgery History of Hip surgery History of Lower extremity amputation below knee Family History Mother Family history of atrial fibrillation (V17.49) (Z82.49) Family history of chronic obstructive pulmonary disease (V17.6) (Z82.5) Family history of malignant neoplasm (V16.9) (Z80.9) Family history of tremor (V17.2) (Z82.0) Father Family history of cardiac disorder (V17.49) (Z82.49) Social History Problems Former smoker (V15.82) (Z87.891) No advance directives (V49.89) (Z78.9) Allergies Medication No Known Drug Allergies Recorded By: Lilian Soares; 06/03/2020 10:31:06 AM Current Meds Medication NameInstruction Kisha Low Dose TBEC Escitalopram Oxalate 10 MG Oral Tablet Gabapentin 300 MG Oral Capsule HYDROcodone-Acetaminophen 5-325 MG Oral Tablet hydrOXYzine HCl - 25 MG Oral Tablet Lisinopril 10 MG Oral Tablet Metoprolol Succinate ER 25 MG Oral Tablet Extended Release 24 Hour Nitroglycerin 0.4 MG Sublingual Tablet Sublingual Omeprazole 40 MG Oral Capsule Delayed Release One Daily Adults 50+ Oral Tablet Probiotic Daily CAPS traMADol HCl - 50 MG Oral Tablet traZODone HCl - 100 MG Oral Tablet V-R Vitamin C 500 MG TABS Zinc 50 MG Oral Tablet Vitals Vital Signs Recorded: 05Jul2020 02:37PM Suiwsyyisxn93.6 F Wxvqpcgb88 Phbnklhkw91 Height5 ft 10 in Mkiapr496 lb BMI Vtkldnerfq87.87 BSA Calculated2.29 Physical Exam LUE is NVI, limited ROM with flexion, extension, pronation and supination. mild tenderness with palpation of distal radius. Results/Data X-ray performed today see radiologist report for official readings Signatures Electronically signed by : Priya Rock PA-C; Jul 05 2020 3:06PM EST (Author) Normal Touchworks Initial Visit (Orthopaedic S urgery)on 06-03-2020 Initial Visit (Orthopaedic Surgery) Diagnoses/Problems Assessed Other closed intra-articular fracture of distal end of left radius, initial encounter (813.42) (S52.572A) Orders Other closed intra-articular fracture of distal end of left radius, initial encounter Xray Wrist 2 View; Status:Hold For - Scheduling; Requested for:03Jun2020; Laterality : Left Radiologist to Determine Optimal Study : Y What are the patient's signs and symptoms? : radius fracture Xray Wrist 2 View; Status:Resulted - Preliminary; Done: 03Jun2020 12:00AM Reason: Unspecified for Xray Wrist 2 View Laterality : Left Radiologist to Determine Optimal Study : Y What are the patient's signs and symptoms? : radius fracture Provider Impressions Assessment: Left distal radius intra-articular nondisplaced fracture Plan: Today, we discussed treatment options and the repeat x-rays do not show any significant change although there could be a little bit of increased dorsal angulation. I would still treat this conservatively in a cast. He will remain nonweightbearing short arm fiberglass waterproof cast was applied he will follow up in 1 month with repeat x-rays Chief Complaint PT HERE FOR FX LEFT DISTAL RADIUS. HERE WITH FAMILY. STATES 05/20/2020 WAS STANDING IN THE KITCHEN AND "FACE PLATED ON THE FLOOR" LANDING ON ARM. ARM IS TENDER. THROBBING PAIN HAS DECREASED. DENIES SWELLING. XRAYS. REFERRED BY DR. BEAUCHAMP (PCP). History of Present IllnessPatient is here today for evaluation of his left distal radius intra-articular fracture that occurred on 05/20/2020. He states that he was standing in the kitchen and somehow fell and face planted most likely due to his prosthetic leg. He was having pain in the left wrist however this does seem to be improving. He locates the pain to the radius. He would rates this as about a 5/10. He has been compliant with nonweightbearing status. Review of Systems Constitutional: no fever, no chills, not feeling tired, no recent weight gain and no recent weight loss. ENT: no nosebleeds. Cardiovascular: no chest pain. Respiratory: no shortness of breath and no cough. Gastrointestinal: no abdominal pain, no nausea, no diarrhea and no vomiting. Musculoskeletal: no arthralgias. Integumentary: no rashes and no skin wound. Neurological: no headache. Psychiatric: no depression and no sleep disturbances. Endocrine: no muscle cramps. Hematologic/Lymphatic: no swollen glands and no tendency for easy bruising. All other systems have been reviewed and are negative for complaint. 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,G63) Surgical History Problems History of Back surgery History of Finger surgical procedure History of Heart surgery History of Hip surgery History of Lower extremity amputation below knee Family History Mother Family history of atrial fibrillation (V17.49) (Z82.49) Family history of chronic obstructive pulmonary disease (V17.6) (Z82.5) Family history of malignant neoplasm (V16.9) (Z80.9) Family history of tremor (V17.2) (Z82.0) Father Family history of cardiac disorder (V17.49) (Z82.49) Social History Problems Former smoker (V15.82) (Z87.891) No advance directives (V49.89) (Z78.9) Allergies No Known Drug Allergies Recorded By: Lilian Soares; 06/03/2020 10:31:06 AM Current Meds Medication NameInstruction Kisha Low Dose TBEC Escitalopram Oxalate 10 MG Oral Tablet Gabapentin 300 MG Oral Capsule hydrOXYzine HCl - 25 MG Oral Tablet Lisinopril 10 MG Oral Tablet Metoprolol Succinate ER 25 MG Oral Tablet Extended Release 24 Hour Nitroglycerin 0.4 MG Sublingual Tablet Sublingual Omeprazole 40 MG Oral Capsule Delayed Release One Daily Adults 50+ Oral Tablet Probiotic Daily CAPS traMADol HCl - 50 MG Oral Tablet traZODone HCl - 100 MG Oral Tablet V-R Vitamin C 500 MG TABS Zinc 50 MG Oral Tablet Vitals Vital Signs Recorded: 03Jun2020 10:18AM Iojjxpwofon97.2 F Wruhyxyf807 Bewwguyug29 Height5 ft 10 in Dqqfji003 lb BMI Viwiscdmbi13.44 BSA Calculated2.28 Physical Exam Left upper extremity is neurovascularly intact range of motion deferred, positive tenderness of the distal radius, abrasion on the dorsal aspect of the hand with no erythema or drainage. Hand is nontender Results/Data Xray Wrist 2 [id number] 12:00AMPriya Rock [Jun 03, 2020 11:01AM Priya Rock] Reason: Unspecified for Xray Wrist 2 View Test NameResultFlagReference Xray Wrist 2 View Please click on the link to view the study images X-rays were performed today see radiologist report for official readings. X-rays were also reviewed on a disc from an outside source Signatures Electronically signed by : Priya Rock PA-C; Jun 03 2020 12:32PM EST (Author) Normal Touchworks Vital Signs Date Time Vital Sign Value Performing Clinician Facility 11-11-2024 09:23-0400 Body height 182.9 cm Tru Simon MD Work Phone: [facility] 11-11-2024 09:23-0400 Body mass index (BMI) [Ratio] 35.94 kg/m2 Tru Simon MD Work Phone: [facility] 11-11-2024 09:23-0400 Body temperature 97.39 [degF] Tru Simon MD Work Phone: [facility] 11-11-2024 09:23-0400 Body weight 120.2 kg Tru Simon MD Work Phone: [facility] 11-11-2024 09:23-0400 Diastolic blood pressure 63 mm[Hg] Tru Simon MD Work Phone: [facility] 11-11-2024 09:23-0400 Heart rate 66 /min Tru Simon MD Work Phone: [facility] 11-11-2024 09:23-0400 SaO2% (BldA) [Mass fraction] 95 % Tru Simon MD Work Phone: [facility] Comment on above: 3L o2 11-11-2024 09:23-0400 Systolic blood pressure 126 mm[Hg] Tru Simon MD Work Phone: [facility] 11-10-2024 15:31-0400 Body temperature 97.7 [degF] Alma Queden TECHNICAL APPLICATIONS SCIENTIST.TAG MACHINE OPERATOR Work Phone: [facility] 11-10-2024 15:31-0400 Diastolic blood pressure 78 mm[Hg] Alma Queden TECHNICAL APPLICATIONS SCIENTIST.TAG MACHINE OPERATOR Work Phone: [facility] 11-10-2024 15:31-0400 Heart rate 68 /min Alma Queden TECHNICAL APPLICATIONS SCIENTIST.TAG MACHINE OPERATOR Work Phone: [facility] 11-10-2024 15:31-0400 Respiratory rate 16 /min Alma Queden TECHNICAL APPLICATIONS SCIENTIST.TAG MACHINE OPERATOR Work Phone: [facility] 11-10-2024 15:31-0400 SaO2% (BldA) [Mass fraction] 89 % Alma Queden TECHNICAL APPLICATIONS SCIENTIST.TAG MACHINE OPERATOR Work Phone: [facility] 11-10-2024 15:31-0400 Systolic blood pressure 124 mm[Hg] Alma Queden TECHNICAL APPLICATIONS SCIENTIST.TAG MACHINE OPERATOR Work Phone: [facility] 10-29-2024 09:40-0400 Body height 182.9 cm Tru Lucas PA-C Work Phone: [facility] 10-29-2024 09:40-0400 Body mass index (BMI) [Ratio] 36.78 kg/m2 Tru Pelini PA-C Work Phone: [facility] 10-29-2024 09:40-0400 Body temperature 97.7 [degF] Tru Pelini PA-C Work Phone: [facility] 10-29-2024 09:40-0400 Body weight 123 kg Tru Pelini PA-C Work Phone: [facility] 10-29-2024 09:40-0400 Diastolic blood pressure 74 mm[Hg] Tru Pelini PA-C Work Phone: [facility] 10-29-2024 09:40-0400 Heart rate 70 /min Tru Pelini PA-C Work Phone: [facility] 10-29-2024 09:40-0400 Respiratory rate 18 /min Tru Pelini PA-C Work Phone: [facility] 10-29-2024 09:40-0400 SaO2% (BldA) [Mass fraction] 95 % Tru Pelini PA-C Work Phone: [facility] Comment on above: o2 set at 3L 10-29-2024 09:40-0400 Systolic blood pressure 126 mm[Hg] Tru Pelini PA-C Work Phone: [facility] 10-21-2024 09:35-0400 Body height 182.9 cm Bear Mikulski PA-C Work Phone: [facility] 10-21-2024 09:35-0400 Body mass index (BMI) [Ratio] 35.94 kg/m2 Bear Mikulski PA-C Work Phone: [facility] 10-21-2024 09:35-0400 Body weight 120.2 kg Bear Mikulski PA-C Work Phone: [facility] 10-21-2024 09:35-0400 Respiratory rate 20 /min Bear Mikulski PA-C Work Phone: [facility] 09-23-2024 14:20-0400 Body height 182.9 cm Sandra Hummel MD Work Phone: [facility] 09-23-2024 14:20-0400 Body mass index (BMI) [Ratio] 37.03 kg/m2 Sandra Hummel MD Work Phone: [facility] 09-23-2024 14:20-0400 Body weight 123.83 kg Sandra Hummel MD Work Phone: [facility] 09-23-2024 14:20-0400 Respiratory rate 20 /min Sandra Hummel MD Work Phone: [facility] 09-21-2024 09:42-0400 Body height 182.9 cm Tru Simon MD Work Phone: [facility] 09-21-2024 09:42-0400 Body mass index (BMI) [Ratio] 37.11 kg/m2 Tru Simon MD Work Phone: [facility] 09-21-2024 09:42-0400 Body temperature 98.1 [degF] Tru Simon MD Work Phone: [facility] 09-21-2024 09:42-0400 Body weight 124.1 kg Tru Simon MD Work Phone: [facility] 09-21-2024 09:42-0400 Diastolic blood pressure 83 mm[Hg] Tru Simon MD Work Phone: [facility] 09-21-2024 09:42-0400 Heart rate 68 /min Tru Simon MD Work Phone: [facility] 09-21-2024 09:42-0400 SaO2% (BldA) [Mass fraction] 96 % Tru Simon MD Work Phone: [facility] Comment on above: 3L 09-21-2024 09:42-0400 Systolic blood pressure 150 mm[Hg] Tru Simon MD Work Phone: [facility] 08-17-2024 11:47-0400 Diastolic blood pressure 81 mm[Hg] Beatrice Sarmiento MD Work Phone: [facility] 08-17-2024 11:47-0400 Heart rate 77 /min Beatrice Sarmiento MD Work Phone: [facility] 08-17-2024 11:47-0400 SaO2% (BldA) [Mass fraction] 96 % Beatrice Sarmiento MD Work Phone: [facility] Comment on above: at 2L O2 continuous 08-17-2024 11:47-0400 Systolic blood pressure 133 mm[Hg] Beatrice Sarmiento MD Work Phone: [facility] 07-14-2024 16:38-0500 Body temperature 97.5 [degF] Alma Queden TECHNICAL APPLICATIONS SCIENTIST.TAG MACHINE OPERATOR Work Phone: [facility] 07-14-2024 16:38-0500 Diastolic blood pressure 76 mm[Hg] Alma Queden TECHNICAL APPLICATIONS SCIENTIST.TAG MACHINE OPERATOR Work Phone: [facility] 07-14-2024 16:38-0500 Heart rate 62 /min Alma Queden TECHNICAL APPLICATIONS SCIENTIST.TAG MACHINE OPERATOR Work Phone: [facility] 07-14-2024 16:38-0500 Respiratory rate 18 /min Alma Queden TECHNICAL APPLICATIONS SCIENTIST.TAG MACHINE OPERATOR Work Phone: [facility] 07-14-2024 16:38-0500 SaO2% (BldA) [Mass fraction] 97 % Alma Queden TECHNICAL APPLICATIONS SCIENTIST.TAG MACHINE OPERATOR Work Phone: [facility] Comment on above: 3 L 07-14-2024 16:38-0500 Systolic blood pressure 124 mm[Hg] Alma Queden TECHNICAL APPLICATIONS SCIENTIST.TAG MACHINE OPERATOR Work Phone: [facility] 06-24-2024 14:02-0500 Diastolic blood pressure 70 mm[Hg] Tru Simon MD Work Phone: [facility] 06-24-2024 14:02-0500 Systolic blood pressure 136 mm[Hg] Tru Simon MD Work Phone: [facility] 06-24-2024 13:47-0500 Body mass index (BMI) [Ratio] 38.18 kg/m2 Tru Simon MD Work Phone: [facility] 06-24-2024 13:47-0500 Body temperature 98.01 [degF] Tru Simon MD Work Phone: [facility] 06-24-2024 13:47-0500 Body weight 127.7 kg Tru Simon MD Work Phone: [facility] 06-24-2024 13:47-0500 Heart rate 65 /min Tru Simon MD Work Phone: [facility] 06-24-2024 13:47-0500 SaO2% (BldA) [Mass fraction] 96 % Tru Simon MD Work Phone: [facility] Comment on above: 3 liters 04-27-2024 14:18-0500 Body height 182.9 cm Pulm Wstr Work Phone: [facility] 04-27-2024 14:18-0500 Body mass index (BMI) [Ratio] 36.75 kg/m2 Pulm Wstr Work Phone: [facility] 04-27-2024 14:18-0500 Body weight 122.92 kg Pulm Wstr Work Phone: [facility] 04-22-2024 14:10-0500 Body height 182.9 cm Tru Simon MD Work Phone: [facility] 04-22-2024 14:10-0500 Body mass index (BMI) [Ratio] 36.79 kg/m2 Tru Simon MD Work Phone: [facility] 04-22-2024 14:10-0500 Body temperature 97 [degF] Tru Simon MD Work Phone: [facility] 04-22-2024 14:10-0500 Body weight 123.06 kg Tru Simon MD Work Phone: [facility] 04-22-2024 14:10-0500 Diastolic blood pressure 72 mm[Hg] Tru Simon MD Work Phone: [facility] 04-22-2024 14:10-0500 Heart rate 52 /min Tru Simon MD Work Phone: [facility] 04-22-2024 14:10-0500 SaO2% (BldA) [Mass fraction] 99 % Tru Simon MD Work Phone: [facility] 04-22-2024 14:10-0500 Systolic blood pressure 122 mm[Hg] Tru Simon MD Work Phone: [facility] 03-30-2024 11:29-0500 Body height 182.9 cm Alma Queden TECHNICAL APPLICATIONS SCIENTIST.TAG MACHINE OPERATOR Work Phone: [facility] 03-30-2024 11:29-0500 Body temperature 97.9 [degF] Alma Queden TECHNICAL APPLICATIONS SCIENTIST.TAG MACHINE OPERATOR Work Phone: [facility] 03-30-2024 11:29-0500 Diastolic blood pressure 54 mm[Hg] Alma Queden TECHNICAL APPLICATIONS SCIENTIST.TAG MACHINE OPERATOR Work Phone: [facility] 03-30-2024 11:29-0500 Heart rate 59 /min Alma Queden TECHNICAL APPLICATIONS SCIENTIST.TAG MACHINE OPERATOR Work Phone: [facility] 03-30-2024 11:29-0500 Respiratory rate 18 /min Alma Queden TECHNICAL APPLICATIONS SCIENTIST.TAG MACHINE OPERATOR Work Phone: [facility] 03-30-2024 11:29-0500 SaO2% (BldA) [Mass fraction] 98 % Alma Queden TECHNICAL APPLICATIONS SCIENTIST.TAG MACHINE OPERATOR Work Phone: [facility] Comment on above: 3 l 03-30-2024 11:29-0500 Systolic blood pressure 118 mm[Hg] Alma Queden TECHNICAL APPLICATIONS SCIENTIST.TAG MACHINE OPERATOR Work Phone: [facility] 03-27-2024 13:51-0500 Body mass index (BMI) [Ratio] 36.7 kg/m2 Mitchell Click TECHNICAL APPLICATIONS SCIENTIST.TAG MACHINE OPERATOR Work Phone: [facility] 03-27-2024 13:51-0500 Body temperature 97.3 [degF] Mitchell Click TECHNICAL APPLICATIONS SCIENTIST.TAG MACHINE OPERATOR Work Phone: [facility] 03-27-2024 13:51-0500 Body weight 122.74 kg Mitchell Click TECHNICAL APPLICATIONS SCIENTIST.TAG MACHINE OPERATOR Work Phone: [facility] 03-27-2024 13:51-0500 Diastolic blood pressure 76 mm[Hg] Mitchell Click TECHNICAL APPLICATIONS SCIENTIST.TAG MACHINE OPERATOR Work Phone: [facility] 03-27-2024 13:51-0500 Heart rate 64 /min Mitchell Click TECHNICAL APPLICATIONS SCIENTIST.TAG MACHINE OPERATOR Work Phone: [facility] 03-27-2024 13:51-0500 SaO2% (BldA) [Mass fraction] 95 % Mitchell Click TECHNICAL APPLICATIONS SCIENTIST.TAG MACHINE OPERATOR Work Phone: [facility] 03-27-2024 13:51-0500 Systolic blood pressure 162 mm[Hg] Mitchell Click TECHNICAL APPLICATIONS SCIENTIST.TAG MACHINE OPERATOR Work Phone: [facility] 03-13-2024 13:48-0400 Body height 182.9 cm Mitchell Click TECHNICAL APPLICATIONS SCIENTIST.TAG MACHINE OPERATOR Work Phone: [facility] 03-13-2024 13:48-0400 Body mass index (BMI) [Ratio] 36.48 kg/m2 Mitchell Click TECHNICAL APPLICATIONS SCIENTIST.TAG MACHINE OPERATOR Work Phone: [facility] 03-13-2024 13:48-0400 Body weight 122 kg Mitchell Click TECHNICAL APPLICATIONS SCIENTIST.TAG MACHINE OPERATOR Work Phone: [facility] 03-13-2024 13:48-0400 Diastolic blood pressure 72 mm[Hg] Mitchell Click TECHNICAL APPLICATIONS SCIENTIST.TAG MACHINE OPERATOR Work Phone: [facility] 03-13-2024 13:48-0400 Heart rate 60 /min Mitchell Click TECHNICAL APPLICATIONS SCIENTIST.TAG MACHINE OPERATOR Work Phone: [facility] 03-13-2024 13:48-0400 Respiratory rate 22 /min Mitchell Click TECHNICAL APPLICATIONS SCIENTIST.TAG MACHINE OPERATOR Work Phone: [facility] 03-13-2024 13:48-0400 SaO2% (BldA) [Mass fraction] 95 % Mitchell Click TECHNICAL APPLICATIONS SCIENTIST.TAG MACHINE OPERATOR Work Phone: [facility] Comment on above: O2 via NC at 3 L/M 03-13-2024 13:48-0400 Systolic blood pressure 122 mm[Hg] Mitchell Click TECHNICAL APPLICATIONS SCIENTIST.TAG MACHINE OPERATOR Work Phone: [facility] 03-13-2024 13:35-0400 Body height 182.9 cm Pulm Wstr Work Phone: [facility] 03-13-2024 13:35-0400 Body mass index (BMI) [Ratio] 36.48 kg/m2 Pulm Wstr Work Phone: [facility] 03-13-2024 13:35-0400 Body weight 122.02 kg Pulm Wstr Work Phone: [facility] 03-13-2024 13:35-0400 Heart rate 64 /min Pulm Wstr Work Phone: [facility] 03-13-2024 13:35-0400 Respiratory rate 22 /min Pulm Wstr Work Phone: [facility] 03-13-2024 13:35-0400 SaO2% (BldA) [Mass fraction] 87 % Pulm Wstr Work Phone: [facility] Comment on above: 3L NC increased to 4L [id number]% 03-02-2024 15:43-0400 Body mass index (BMI) [Ratio] 35.49 kg/m2 Alma Queden TECHNICAL APPLICATIONS SCIENTIST.TAG MACHINE OPERATOR Work Phone: [facility] 03-02-2024 15:43-0400 Body temperature 97.59 [degF] Alma Queden TECHNICAL APPLICATIONS SCIENTIST.TAG MACHINE OPERATOR Work Phone: [facility] 03-02-2024 15:43-0400 Body weight 122.02 kg Alma Queden TECHNICAL APPLICATIONS SCIENTIST.TAG MACHINE OPERATOR Work Phone: [facility] 03-02-2024 15:43-0400 Diastolic blood pressure 68 mm[Hg] Alma Queden TECHNICAL APPLICATIONS SCIENTIST.TAG MACHINE OPERATOR Work Phone: [facility] 03-02-2024 15:43-0400 Heart rate 62 /min Alma Queden TECHNICAL APPLICATIONS SCIENTIST.TAG MACHINE OPERATOR Work Phone: [facility] 03-02-2024 15:43-0400 Respiratory rate 18 /min Alma Gill TECHNICAL APPLICATIONS SCIENTIST.TAG MACHINE OPERATOR Work Phone: [facility] 03-02-2024 15:43-0400 SaO2% (BldA) [Mass fraction] 95 % Alma Gill TECHNICAL APPLICATIONS SCIENTIST.TAG MACHINE OPERATOR Work Phone: [facility] Comment on above: 3 L 03-02-2024 15:43-0400 Systolic blood pressure 118 mm[Hg] Alma Gill TECHNICAL APPLICATIONS SCIENTIST.TAG MACHINE OPERATOR Work Phone: [facility] 02-03-2024 16:33-0400 Body mass index (BMI) [Ratio] 34.17 kg/m2 Beatrice Sarmiento MD Work Phone: [facility] 02-03-2024 16:33-0400 Body weight 117.48 kg Beatrice Sarmiento MD Work Phone: [facility] Comment on above: 01/15/2024 02-03-2024 16:33-0400 Diastolic blood pressure 55 mm[Hg] Beatrice Sarmiento MD Work Phone: [facility] 02-03-2024 16:33-0400 Heart rate 64 /min Beatrice Sarmiento MD Work Phone: [facility] 02-03-2024 16:33-0400 SaO2% (BldA) [Mass fraction] 91 % Beatrice Sarmiento MD Work Phone: [facility] Comment on above: with O2 3L continuous 02-03-2024 16:33-0400 Systolic blood pressure 95 mm[Hg] Beatrice Sarmiento MD Work Phone: [facility] 01-29-2024 11:08-0400 Diastolic blood pressure 58 mm[Hg] Lilian Rodríguez PA-C Work Phone: [facility] 01-29-2024 11:08-0400 Heart rate 72 /min Lilian Rodríguez PA-C Work Phone: [facility] 01-29-2024 11:08-0400 Respiratory rate 22 /min Lilian Rodríguez PA-C [facility] [facility] 01-29-2024 11:08-0400 SaO2% (BldA) [Mass fraction] 91 % Lilian Rodríguez PA-C Work Phone: [facility] Comment on above: O2 at 2 L/M via [place] 01-29-2024 11:08-0400 Systolic blood pressure 104 mm[Hg] Lilian Rodríguez PA-C Work Phone: [facility] 11-29-2023 09:30-0400 Body temperature 96.8 [degF] Rosemary Russell MD Work Phone: [facility] 11-29-2023 09:30-0400 Diastolic blood pressure 77 mm[Hg] Rosemary Russell MD Work Phone: [facility] 11-29-2023 09:30-0400 Heart rate 51 /min Rosemary Russell MD Work Phone: [facility] 11-29-2023 09:30-0400 Respiratory rate 20 /min Rosemary Russell MD Work Phone: [facility] 11-29-2023 09:30-0400 SaO2% (BldA) [Mass fraction] 96 % Rosemary Russell MD Work Phone: [facility] 11-29-2023 09:30-0400 Systolic blood pressure 168 mm[Hg] Rosemary Russell MD Work Phone: [facility] 11-29-2023 07:39-0400 Body height 185.4 cm Rosemary Russell MD Work Phone: [facility] 11-29-2023 07:39-0400 Body mass index (BMI) [Ratio] 36.02 kg/m2 Rosemary Russell MD Work Phone: [facility] 11-29-2023 07:39-0400 Body weight 123.83 kg Rosemary Russell MD Work Phone: [facility] 10-15-2023 11:42-0400 Diastolic blood pressure 74 mm[Hg] Katelynn Knowles DO Work Phone: [facility] 10-15-2023 11:42-0400 Heart rate 58 /min Katelynn Knowles DO Work Phone: [facility] 10-15-2023 11:42-0400 SaO2% (BldA) [Mass fraction] 95 % Katelynn Knowles DO Work Phone: [facility] 10-15-2023 11:42-0400 Systolic blood pressure 156 mm[Hg] Katelynn Knowles DO Work Phone: [facility] 09-09-2023 11:57-0400 Body mass index (BMI) [Ratio] 36.02 kg/m2 Francisco Patel MD Work Phone: [facility] 09-09-2023 11:57-0400 Body temperature 98.4 [degF] Francisco Patel MD Work Phone: [facility] 09-09-2023 11:57-0400 Body weight 123.83 kg Francisco Patel MD Work Phone: [facility] 09-09-2023 11:57-0400 Diastolic blood pressure 78 mm[Hg] Francisco Patel MD Work Phone: [facility] 09-09-2023 11:57-0400 Heart rate 70 /min Francisco Patel MD Work Phone: [facility] 09-09-2023 11:57-0400 Respiratory rate 16 /min Francisco Patel MD Work Phone: [facility] 09-09-2023 11:57-0400 SaO2% (BldA) [Mass fraction] 93 % Francisco Patel MD Work Phone: [facility] 09-09-2023 11:57-0400 Systolic blood pressure 138 mm[Hg] Francisco Patel MD Work Phone: [facility] 09-03-2023 15:42-0400 Body temperature 97.39 [degF] Alma Gill APRN.TAG MACHINE OPERATOR Work Phone: [facility] 09-03-2023 15:42-0400 Diastolic blood pressure 72 mm[Hg] Alma Queden TECHNICAL APPLICATIONS SCIENTIST.TAG MACHINE OPERATOR Work Phone: [facility] 09-03-2023 15:42-0400 Heart rate 54 /min Alma Queden TECHNICAL APPLICATIONS SCIENTIST.TAG MACHINE OPERATOR Work Phone: [facility] 09-03-2023 15:42-0400 Respiratory rate 16 /min Alma Queden TECHNICAL APPLICATIONS SCIENTIST.TAG MACHINE OPERATOR Work Phone: [facility] 09-03-2023 15:42-0400 SaO2% (BldA) [Mass fraction] 96 % Alma Queden TECHNICAL APPLICATIONS SCIENTIST.TAG MACHINE OPERATOR Work Phone: [facility] 09-03-2023 15:42-0400 Systolic blood pressure 126 mm[Hg] Alma Queden TECHNICAL APPLICATIONS SCIENTIST.TAG MACHINE OPERATOR Work Phone: [facility] 08-29-2023 14:21-0400 Diastolic blood pressure 75 mm[Hg] Katelynn Knowles DO Work Phone: [facility] 08-29-2023 14:21-0400 Heart rate 61 /min Katelynn Knowles DO Work Phone: [facility] 08-29-2023 14:21-0400 SaO2% (BldA) [Mass fraction] 95 % Katelynn Knowles DO Work Phone: [facility] 08-29-2023 14:21-0400 Systolic blood pressure 137 mm[Hg] Katelynn Knowles DO Work Phone: [facility] 07-22-2023 11:12-0400 Body weight 125.65 kg Beatrice Sarmiento MD Work Phone: [facility] 07-22-2023 11:12-0400 Diastolic blood pressure 79 mm[Hg] Beatrice Sarmiento MD Work Phone: [facility] 07-22-2023 11:12-0400 Heart rate 59 /min Beatrice Sarmiento MD Work Phone: [facility] 07-22-2023 11:12-0400 SaO2% (BldA) [Mass fraction] 97 % Beatrice Sarmiento MD Work Phone: [facility] 07-22-2023 11:12-0400 Systolic blood pressure 147 mm[Hg] Beatrice Sarmiento MD Work Phone: [facility] 06-20-2023 09:10-0500 Diastolic blood pressure 64 mm[Hg] David Lee MD Work Phone: [facility] 06-20-2023 09:10-0500 Heart rate 52 /min David Lee MD Work Phone: [facility] 06-20-2023 09:10-0500 Respiratory rate 18 /min David Lee MD Work Phone: [facility] 06-20-2023 09:10-0500 SaO2% (BldA) [Mass fraction] 97 % David Lee MD Work Phone: [facility] 06-20-2023 09:10-0500 Systolic blood pressure 138 mm[Hg] David Lee MD Work Phone: [facility] 06-20-2023 07:42-0500 Body temperature 97.5 [degF] David Lee MD Work Phone: [facility] 04-23-2023 14:46-0500 Body height 185.4 cm Mone Robertson PA-C Work Phone: [facility] 04-23-2023 14:46-0500 Body weight 125.65 kg Mone Robertson PA-C Work Phone: [facility] 04-23-2023 14:46-0500 Diastolic blood pressure 76 mm[Hg] Mone Robertson PA-C Work Phone: [facility] 04-23-2023 14:46-0500 Heart rate 60 /min Mone Robertson PA-C Work Phone: [facility] 04-23-2023 14:46-0500 Systolic blood pressure 136 mm[Hg] Mone Robertson PA-C Work Phone: [facility] 04-15-2023 13:56-0500 Diastolic blood pressure 78 mm[Hg] Lilian Elvia PA-C Work Phone: [facility] 04-15-2023 13:56-0500 Heart rate 58 /min Lilian Elvia PA-C Work Phone: [facility] 04-15-2023 13:56-0500 Respiratory rate 15 /min Lilian Elvia PA-C Work Phone: [facility] 04-15-2023 13:56-0500 SaO2% (BldA) [Mass fraction] 95 % Lilian Elvia PA-C Work Phone: [facility] 04-15-2023 13:56-0500 Systolic blood pressure 128 mm[Hg] Lilian Elvia PA-C Work Phone: [facility] 03-04-2023 13:22-0400 Heart rate 54 /min Lilian Elvia PA-C Work Phone: [facility] 03-04-2023 13:22-0400 Respiratory rate 19 /min Lilian Elvia PA-C Work Phone: [facility] 03-04-2023 13:22-0400 SaO2% (BldA) [Mass fraction] 94 % Lilian Elvia PA-C Work Phone: [facility] 01-21-2023 13:52-0400 Body weight 127.55 kg Lilian Elvia PA-C Work Phone: [facility] 01-21-2023 13:52-0400 Diastolic blood pressure 74 mm[Hg] Lilian Elvia PA-C Work Phone: [facility] 01-21-2023 13:52-0400 Heart rate 56 /min Lilian Elvia PA-C Work Phone: [facility] 01-21-2023 13:52-0400 Respiratory rate 22 /min Lilian Elvia PA-C Work Phone: [facility] 01-21-2023 13:52-0400 SaO2% (BldA) [Mass fraction] 95 % Lilian Rodríguez PA-C Work Phone: [facility] 01-21-2023 13:52-0400 Systolic blood pressure 132 mm[Hg] Lilian Rodríguez PA-C Work Phone: [facility] 11-20-2022 15:06-0400 Diastolic blood pressure 58 mm[Hg] Francisco Patel MD Work Phone: [facility] 11-20-2022 15:06-0400 Systolic blood pressure 118 mm[Hg] Francisco Patel MD Work Phone: [facility] 11-08-2022 11:41-0400 Diastolic blood pressure 70 mm[Hg] Nurse Nigel Work Phone: [facility] 11-08-2022 11:41-0400 Systolic blood pressure 128 mm[Hg] Nurse Nigel Work Phone: [facility] 09-13-2022 11:28-0400 Body temperature 97.59 [degF] Alma Queden TECHNICAL APPLICATIONS SCIENTIST.TAG MACHINE OPERATOR Work Phone: [facility] 09-13-2022 11:28-0400 Body weight 124.29 kg Alma Queden TECHNICAL APPLICATIONS SCIENTIST.TAG MACHINE OPERATOR Work Phone: [facility] 09-13-2022 11:28-0400 Diastolic blood pressure 72 mm[Hg] Alma Queden TECHNICAL APPLICATIONS SCIENTIST.TAG MACHINE OPERATOR Work Phone: [facility] 09-13-2022 11:28-0400 Heart rate 52 /min Alma Queden TECHNICAL APPLICATIONS SCIENTIST.TAG MACHINE OPERATOR Work Phone: [facility] 09-13-2022 11:28-0400 Respiratory rate 18 /min Alma Queden TECHNICAL APPLICATIONS SCIENTIST.TAG MACHINE OPERATOR Work Phone: [facility] 09-13-2022 11:28-0400 SaO2% (BldA) [Mass fraction] 95 % Alma Queden TECHNICAL APPLICATIONS SCIENTIST.TAG MACHINE OPERATOR Work Phone: [facility] 09-13-2022 11:28-0400 Systolic blood pressure 126 mm[Hg] Alma Queden TECHNICAL APPLICATIONS SCIENTIST.TAG MACHINE OPERATOR Work Phone: [facility] 08-21-2022 15:21-0400 Body temperature 97.81 [degF] Alma Queden TECHNICAL APPLICATIONS SCIENTIST.TAG MACHINE OPERATOR Work Phone: [facility] 08-21-2022 15:21-0400 Body weight 125.19 kg Alma Queden TECHNICAL APPLICATIONS SCIENTIST.TAG MACHINE OPERATOR Work Phone: [facility] 08-21-2022 15:21-0400 Diastolic blood pressure 68 mm[Hg] Alma Queden TECHNICAL APPLICATIONS SCIENTIST.TAG MACHINE OPERATOR Work Phone: [facility] 08-21-2022 15:21-0400 Heart rate 55 /min Alma Queden TECHNICAL APPLICATIONS SCIENTIST.TAG MACHINE OPERATOR Work Phone: [facility] 08-21-2022 15:21-0400 Respiratory rate 18 /min Alma Queden TECHNICAL APPLICATIONS SCIENTIST.TAG MACHINE OPERATOR Work Phone: [facility] 08-21-2022 15:21-0400 SaO2% (BldA) [Mass fraction] 95 % Alma Queden TECHNICAL APPLICATIONS SCIENTIST.TAG MACHINE OPERATOR Work Phone: [facility] 08-21-2022 15:21-0400 Systolic blood pressure 122 mm[Hg] Alma Queden TECHNICAL APPLICATIONS SCIENTIST.TAG MACHINE OPERATOR Work Phone: [facility] 07-05-2022 14:49-0500 Body height 182.9 cm Tammy Loaiza TECHNICAL APPLICATIONS SCIENTIST.TAG MACHINE OPERATOR Work Phone: [facility] 07-05-2022 14:49-0500 Body weight 125.65 kg Tammy Loaiza TECHNICAL APPLICATIONS SCIENTIST.TAG MACHINE OPERATOR Work Phone: [facility] 07-05-2022 14:49-0500 Diastolic blood pressure 77 mm[Hg] Tammy Maurice TECHNICAL APPLICATIONS SCIENTIST.TAG MACHINE OPERATOR Work Phone: [facility] 07-05-2022 14:49-0500 Heart rate 53 /min Tammy Loaiza TECHNICAL APPLICATIONS SCIENTIST.TAG MACHINE OPERATOR Work Phone: [facility] 07-05-2022 14:49-0500 SaO2% (BldA) [Mass fraction] 94 % Tammy Loaiza TECHNICAL APPLICATIONS SCIENTIST.TAG MACHINE OPERATOR Work Phone: [facility] 07-05-2022 14:49-0500 Systolic blood pressure 134 mm[Hg] Tammy Loaiza APRN.TAG MACHINE OPERATOR Work Phone: [facility] 06-04-2022 11:15-0500 Body height 182.9 cm Dedrick Krause DO Work Phone: [facility] 06-04-2022 11:15-0500 Body weight 128.82 kg Dedrick Krause DO Work Phone: [facility] 06-04-2022 11:15-0500 Diastolic blood pressure 68 mm[Hg] Dedrick Krause DO Work Phone: [facility] 06-04-2022 11:15-0500 Heart rate 63 /min Dedrick Krause DO Work Phone: [facility] 06-04-2022 11:15-0500 SaO2% (BldA) [Mass fraction] 96 % Dedrick Krause DO Work Phone: [facility] 06-04-2022 11:15-0500 Systolic blood pressure 126 mm[Hg] Dedrick Krause DO Work Phone: [facility] 02-19-2022 15:02-0400 Body temperature 97.7 [degF] Alma Gill TECHNICAL APPLICATIONS SCIENTIST.TAG MACHINE OPERATOR Work Phone: [facility] 02-19-2022 15:02-0400 Body weight 126.55 kg Alma Rodriguezden TECHNICAL APPLICATIONS SCIENTIST.TAG MACHINE OPERATOR Work Phone: [facility] 02-19-2022 15:02-0400 Diastolic blood pressure 78 mm[Hg] Alma Rodriguezden TECHNICAL APPLICATIONS SCIENTIST.TAG MACHINE OPERATOR Work Phone: [facility] 02-19-2022 15:02-0400 Heart rate 59 /min Alma Queden TECHNICAL APPLICATIONS SCIENTIST.TAG MACHINE OPERATOR Work Phone: [facility] 02-19-2022 15:02-0400 Respiratory rate 16 /min Alma Queden TECHNICAL APPLICATIONS SCIENTIST.TAG MACHINE OPERATOR Work Phone: [facility] 02-19-2022 15:02-0400 SaO2% (BldA) [Mass fraction] 94 % Alma Queden TECHNICAL APPLICATIONS SCIENTIST.TAG MACHINE OPERATOR Work Phone: [facility] 02-19-2022 15:02-0400 Systolic blood pressure 126 mm[Hg] Lama Queden TECHNICAL APPLICATIONS SCIENTIST.TAG MACHINE OPERATOR Work Phone: [facility] 02-08-2022 14:57-0400 Body temperature 98.29 [degF] Alma Queden TECHNICAL APPLICATIONS SCIENTIST.TAG MACHINE OPERATOR Work Phone: [facility] 02-08-2022 14:57-0400 Diastolic blood pressure 72 mm[Hg] Alma Queden TECHNICAL APPLICATIONS SCIENTIST.TAG MACHINE OPERATOR Work Phone: [facility] 02-08-2022 14:57-0400 Heart rate 68 /min Alma Queden TECHNICAL APPLICATIONS SCIENTIST.TAG MACHINE OPERATOR Work Phone: [facility] 02-08-2022 14:57-0400 Respiratory rate 16 /min Alma Queden TECHNICAL APPLICATIONS SCIENTIST.TAG MACHINE OPERATOR Work Phone: [facility] 02-08-2022 14:57-0400 SaO2% (BldA) [Mass fraction] 94 % Alma Queden TECHNICAL APPLICATIONS SCIENTIST.TAG MACHINE OPERATOR Work Phone: [facility] 02-08-2022 14:57-0400 Systolic blood pressure 128 mm[Hg] Alma Queden TECHNICAL APPLICATIONS SCIENTIST.TAG MACHINE OPERATOR Work Phone: [facility] 02-01-2022 08:55-0400 Body height 182.9 cm Alma Queden TECHNICAL APPLICATIONS SCIENTIST.TAG MACHINE OPERATOR Work Phone: [facility] 02-01-2022 08:55-0400 Body temperature 98.01 [degF] Alma Queden TECHNICAL APPLICATIONS SCIENTIST.TAG MACHINE OPERATOR Work Phone: [facility] 02-01-2022 08:55-0400 Body weight 126.1 kg Alma Queden TECHNICAL APPLICATIONS SCIENTIST.TAG MACHINE OPERATOR Work Phone: [facility] 02-01-2022 08:55-0400 Diastolic blood pressure 70 mm[Hg] Alma Queden TECHNICAL APPLICATIONS SCIENTIST.TAG MACHINE OPERATOR Work Phone: [facility] 02-01-2022 08:55-0400 Heart rate 62 /min Alma Queden TECHNICAL APPLICATIONS SCIENTIST.TAG MACHINE OPERATOR Work Phone: [facility] 02-01-2022 08:55-0400 Respiratory rate 18 /min Alma Queden TECHNICAL APPLICATIONS SCIENTIST.TAG MACHINE OPERATOR Work Phone: [facility] 02-01-2022 08:55-0400 SaO2% (BldA) [Mass fraction] 94 % Alma Queden TECHNICAL APPLICATIONS SCIENTIST.TAG MACHINE OPERATOR Work Phone: [facility] 02-01-2022 08:55-0400 Systolic blood pressure 126 mm[Hg] Alma Queden TECHNICAL APPLICATIONS SCIENTIST.TAG MACHINE OPERATOR Work Phone: [facility] 11-23-2021 11:28-0400 Body height 182.9 cm Alma Queden TECHNICAL APPLICATIONS SCIENTIST.TAG MACHINE OPERATOR Work Phone: [facility] 11-23-2021 11:28-0400 Body temperature 97.7 [degF] Alma Queden TECHNICAL APPLICATIONS SCIENTIST.TAG MACHINE OPERATOR Work Phone: [facility] 11-23-2021 11:28-0400 Body weight 123.02 kg Alma Queden TECHNICAL APPLICATIONS SCIENTIST.TAG MACHINE OPERATOR Work Phone: [facility] 11-23-2021 11:28-0400 Diastolic blood pressure 78 mm[Hg] Alma Queden TECHNICAL APPLICATIONS SCIENTIST.TAG MACHINE OPERATOR Work Phone: [facility] 11-23-2021 11:28-0400 Heart rate 65 /min Alma Queden TECHNICAL APPLICATIONS SCIENTIST.TAG MACHINE OPERATOR Work Phone: [facility] 11-23-2021 11:28-0400 Respiratory rate 16 /min Alma Queden TECHNICAL APPLICATIONS SCIENTIST.TAG MACHINE OPERATOR Work Phone: [facility] 11-23-2021 11:28-0400 SaO2% (BldA) [Mass fraction] 96 % Alma Queden TECHNICAL APPLICATIONS SCIENTIST.TAG MACHINE OPERATOR Work Phone: [facility] 11-23-2021 11:28-0400 Systolic blood pressure 126 mm[Hg] Alma Rodriguezden TECHNICAL APPLICATIONS SCIENTIST.TAG MACHINE OPERATOR Work Phone: [facility] 10-26-2021 10:12-0400 Diastolic blood pressure 70 mm[Hg] Nurse Nigel Work Phone: [facility] 10-26-2021 10:12-0400 Systolic blood pressure 118 mm[Hg] Nurse Nigel Work Phone: [facility] Encounters Encounter Date Encounter Type Care Provider Facility Start: 03-15-2025 End: 03-15-2025 ambulatory FRANCESCO JENNY Facility:[facility] Start: 02-17-2025 End: 02-17-2025 ambulatory TRU ANTONINA SIMON Facility:[facility] Start: 02-11-2025 End: 02-11-2025 ambulatory ALMA RODRIGUEZDEN Facility:[facility] Start: 01-25-2025 End: 01-25-2025 Telephone encounter Alma A Queden TECHNICAL APPLICATIONS SCIENTIST.TAG MACHINE OPERATOR Work Phone: [facility] Comment on above: Electronic Communica tion Start: 01-19-2025 End: 01-19-2025 Telephone encounter Alma Tiffani Queden TECHNICAL APPLICATIONS SCIENTIST.TAG MACHINE OPERATOR Work Phone: [facility] Comment on above: Consult Start: 01-10-2025 End: 01-12-2025 Refill Alma A Queden TECHNICAL APPLICATIONS SCIENTIST.TAG MACHINE OPERATOR Work Phone: [facility] Comment on above: Refill Request Start: 01-04-2025 End: 01-07-2025 ambulatory Alma A Queden TECHNICAL APPLICATIONS SCIENTIST.TAG MACHINE OPERATOR Work Phone: [facility] Comment on above: [facility] nurse Start: 12-29-2024 End: 12-30-2024 ambulatory Tru Simon MD Work Phone: Pulmonary Medicine Comment on above: Budesonide 0.5 Mg/2 Ml Susp $208.84 Start: 12-19-2024 End: 12-21-2024 Refill Alma A Jasonden TECHNICAL APPLICATIONS SCIENTIST.TAG MACHINE OPERATOR Work Phone: [facility] Comment on above: Refill Request Start: 12-07-2024 End: 12-07-2024 Patient encounter procedure Francesco Tobias Work Phone: Podiatry Comment on above: Onychomycosis (Prima ry Dx); 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); Left foot pain Start: 12-07-2024 End: 12-07-2024 ambulatory FRANCESCO TOBIAS Facility:[facility] Start: 12-03-2024 End: 12-03-2024 ambulatory Tru Simon MD Work Phone: Pulmonary Medicine Comment on above: Flutter valve Start: 12-01-2024 End: 12-01-2024 Telephone encounter Alma A Queden TECHNICAL APPLICATIONS SCIENTIST.TAG MACHINE OPERATOR Work Phone: [facility] Comment on above: Electronic Communica tion Start: 11-26-2024 End: 11-26-2024 Telephone encounter Alma A Queden TECHNICAL APPLICATIONS SCIENTIST.TAG MACHINE OPERATOR Work Phone: [facility] Comment on above: Electronic Communica tion Start: 11-23-2024 End: 11-23-2024 ambulatory Lilian Sethi RN Work Phone: [employer] Start: 11-23-2024 End: 11-23-2024 Home visit Lilian Sethi RN Work Phone: [employer] Comment on above: Transition Of Care ( TCM f/u) Start: 11-20-2024 End: 01-20-2025 Follow-up encounter Alma Tiffani Rodriguezden TECHNICAL APPLICATIONS SCIENTIST.TAG MACHINE OPERATOR Work Phone: [facility] Start: 11-15-2024 End: 11-16-2024 Refill Alma A Queden TECHNICAL APPLICATIONS SCIENTIST.[facility] Work Phone: [facility] Comment on above: Refill Request Start: 11-11-2024 End: 11-11-2024 Office outpatient visit 40 minutes Tru Simon MD Work Phone: Pulmonary Medicine Comment on above: Interstitial pulmona ry disease (HCC) (Primary Dx); Bronchiectasis without acute exacerbation (HCC); Hypersensitivity pneumonitis (HCC); Chronic respiratory failure with hypoxia (HCC); 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); 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 Start: 11-11-2024 End: 11-11-2024 Patient encounter procedure Pulm [facility] Sera Hoyt Work Phone: Pulmonary Medicine Start: 11-11-2024 End: 11-23-2024 ambulatory Alma Gill APRN.TAG MACHINE OPERATOR Work Phone: Pulmonary Medicine Comment on above: Spirometry Bactrim Start: 11-10-2024 End: 11-10-2024 ambulatory ALMA GILL Facility:[facility] Start: 11-10-2024 End: 11-10-2024 Patient encounter procedure Alma Gill TECHNICAL APPLICATIONS SCIENTIST.TAG MACHINE OPERATOR Work Phone: [facility] Comment on above: Acute on chronic hyp oxic respiratory failure (HCC) (Primary Dx); Sepsis due to pneumonia (HCC); ILD (interstitial lung disease) (HCC); Dependence on supplemental oxygen; SOB (shortness of breath) on exertion; Essential tremor; Hyponatremia; Essential hypertension; Chronic GERD; Impaired ambulation; Requires assistance with activities of daily living (ADL) Start: 11-09-2024 End: 11-10-2024 Telephone encounter Alma Gill TECHNICAL APPLICATIONS SCIENTIST.TAG MACHINE OPERATOR Work Phone: [facility] Comment on above: Electronic Communica tion; Forms Patient Update Start: 11-02-2024 End: 11-04-2024 Telephone encounter Alma Gill TECHNICAL APPLICATIONS SCIENTIST.TAG MACHINE OPERATOR Work Phone: [facility] Comment on above: Electronic Communica tion; Forms Inspector Aide - O ther Start: 10-29-2024 End: 10-29-2024 Telephone encounter Alma Gill TECHNICAL APPLICATIONS SCIENTIST.TAG MACHINE OPERATOR Work Phone: [facility] Comment on above: Electronic Communica tion; Forms Start: 10-29-2024 End: 10-29-2024 Patient encounter procedure Tru Lucas PA-C Work Phone: Pulmonary Medicine Comment on above: Hospital discharge f ollow-up (Primary Dx); ILD (interstitial lung disease) (HCC); 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; Chronic hypoxemic respiratory failure (HCC); Former smoker Start: 10-29-2024 End: 10-29-2024 ambulatory TRU LUCAS Facility:[facility] Start: 10-26-2024 End: 10-26-2024 Refill Alma Gill TECHNICAL APPLICATIONS SCIENTIST.TAG MACHINE OPERATOR Work Phone: [facility] Comment on above: Refill Request Start: 10-21-2024 End: 10-21-2024 Patient encounter procedure Bear Hidalgo PA-C Work Phone: [facility] Comment on above: Closed boxer's fract ure with routine healing, subsequent encounter (Primary Dx) Start: 10-21-2024 End: 10-21-2024 ambulatory ALMA GILL Facility:[facility] Start: 10-19-2024 End: 10-19-2024 ambulatory Lilian Sethi RN Work Phone: Developing Machine Tender Start: 10-19-2024 End: 10-19-2024 Home visit Lilian Sethi RN Work Phone: Developing Machine Tender Comment on above: Transition Of Care ( CC Walter D/C 10/16/24) Initial phone contact for Transitional Care Management Start: 10-14-2024 End: 10-14-2024 Refill Tru Simon MD Work Phone: Pulmonary Medicine Comment on above: Med Change Request Start: 10-13-2024 End: 10-13-2024 Telephone encounter Sandra Hummel MD Work Phone: [facility] Comment on above: Question ( fernando ng to see if cast can be taken of by [facility]) Start: 10-12-2024 End: 10-16-2024 Evaluation and management of inpatient TRU PRESCOTT Facility:[facility] Start: 10-12-2024 End: 10-12-2024 Emergency department patient visit MONSERRATLILLIAN SARKAR MICAH Facility:[facility] Start: 10-12-2024 End: 10-12-2024 Telephone encounter Tru Prescott MD Work Phone: [facility] Provider Adult Comment on above: [facility] Start: 10-08-2024 End: 10-08-2024 Telephone encounter Alma Rodriguezden TECHNICAL APPLICATIONS SCIENTIST.TAG MACHINE OPERATOR Work Phone: [facility] Comment on above: Electronic Communica tion; Forms Start: 10-05-2024 End: 10-06-2024 Refill Alma Tiffani Rodriguezden TECHNICAL APPLICATIONS SCIENTIST.TAG MACHINE OPERATOR Work Phone: [facility] Comment on above: Refill Request Start: 09-30-2024 End: 11-30-2024 Follow-up encounter Tru Simon MD Work Phone: [facility] Start: 09-28-2024 End: 09-28-2024 Telephone encounter Alma Gill TECHNICAL APPLICATIONS SCIENTIST.TAG MACHINE OPERATOR Work Phone: [facility] Comment on above: Electronic Communica tion Start: 09-25-2024 End: 11-25-2024 Follow-up encounter Alma Rodriguezden TECHNICAL APPLICATIONS SCIENTIST.TAG MACHINE OPERATOR Work Phone: [facility] Start: 09-24-2024 End: 09-24-2024 ambulatory ALMA A QUEDEN Facility[facility] Start: 09-23-2024 End: 09-23-2024 Patient encounter procedure Sandra Hummel MD Work Phone: [facility] Comment on above: Closed boxer's fract ure, initial encounter (Primary Dx) Start: 09-23-2024 End: 09-23-2024 ambulatory ALMA A QUEDEN Facility:[facility] Start: 09-22-2024 End: 09-22-2024 Telephone encounter Alma A Wicho TECHNICAL APPLICATIONS SCIENTIST.TAG MACHINE OPERATOR Work Phone: [facility] Comment on above: Electronic Communica tion; Forms Start: 09-21-2024 End: 11-21-2024 Follow-up encounter Alma Rodriguezviolet TECHNICAL APPLICATIONS SCIENTIST.TAG MACHINE OPERATOR Work Phone: [facility] Comment on above: Results Start: 09-21-2024 End: 09-21-2024 Subsequent hospital visit by physician [facility] Comment on above: Hand injury, right, initial encounter [S69.91XA] Start: 09-21-2024 End: 09-21-2024 ambulatory ALMA GILL Facility:[facility] Start: 09-21-2024 End: 09-21-2024 Office outpatient visit 40 minutes Tru iSmon MD Work Phone: Pulmonary Medicine Comment on above: Hypersensitivity pne umonitis (HCC) (Primary Dx); 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); Chronic respiratory failure with hypoxia (HCC); Gastroesophageal reflux disease, unspecified whether esophagitis present; Class 2 obesity due to excess calories with body mass index (BMI) of 36.0 to 36.9 in adult, unspecified whether serious comorbidity present; Herpes zoster without complication; High risk medication use Start: 09-21-2024 End: 09-21-2024 ambulatory TRU SIMON Facility:[facility] Start: 09-20-2024 End: 09-21-2024 ambulatory Alma A Wicho TECHNICAL APPLICATIONS SCIENTIST.TAG MACHINE OPERATOR Work Phone: [facility] Comment on above: Fall Start: 09-18-2024 End: 09-18-2024 Telephone encounter Alma A Wicho TECHNICAL APPLICATIONS SCIENTIST.TAG MACHINE OPERATOR Work Phone: [facility] Comment on above: Electronic Communica tion; Forms Start: 09-17-2024 End: 09-17-2024 Telephone encounter Alma A Wicho TECHNICAL APPLICATIONS SCIENTIST.TAG MACHINE OPERATOR Work Phone: [facility] Comment on above: Electronic Communica tion; Forms VERBAL ORDERS Start: 09-12-2024 End: 09-15-2024 Refill Tru Simon MD Work Phone: Pulmonary Medicine Comment on above: Med Change Request Start: 09-10-2024 End: 09-10-2024 ambulatory Alma Gill APRN.TAG MACHINE OPERATOR Work Phone: [facility] Comment on above: Glucose reading Start: 09-10-2024 End: 11-10-2024 Follow-up encounter Alma Gill TECHNICAL APPLICATIONS SCIENTIST.TAG MACHINE OPERATOR Work Phone: [facility] Start: 09-10-2024 End: 09-10-2024 Telephone encounter Alma Gill TECHNICAL APPLICATIONS SCIENTIST.TAG MACHINE OPERATOR Work Phone: [facility] Comment on above: Critical Results Start: 08-28-2024 End: 08-28-2024 Patient encounter procedure Francesco Tobias Work Phone: Podiatry Comment on above: Onychomycosis (Prima ry Dx); 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); Hallux valgus of left foot Start: 08-28-2024 End: 08-28-2024 ambulatory FRANCESCO TOBIAS Facility:[facility] Start: 08-27-2024 End: 10-27-2024 Follow-up encounter Beatrice Sarmiento MD Work Phone: [facility] Start: 08-26-2024 End: 10-26-2024 Follow-up encounter Alma Gill APRN.TAG MACHINE OPERATOR Work Phone: [facility] Comment on above: Results Start: 08-26-2024 ambulatory MITCHELL Cortez ity:[facility] Start: 08-26-2024 End: 08-26-2024 Subsequent hospital visit by physician Card/Pulm Lab [facility] Comment on above: Pulmonary arterial h ypertension (HCC) [I27.21] Start: 08-20-2024 End: 08-21-2024 Follow-up encounter Alma Gill TECHNICAL APPLICATIONS SCIENTIST.TAG MACHINE OPERATOR Work Phone: [facility] Comment on above: Results Start: 08-17-2024 End: 08-17-2024 ambulatory BEATRICE SARMIENTO Facility:[facility] Start: 08-17-2024 End: 08-17-2024 Patient encounter procedure Beatrice Sarmiento MD Work Phone: Cardiology Comment on above: 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); Chronic diastolic congestive heart failure (HCC); Essential hypertension; Mixed hyperlipidemia; Peripheral vascular disease; Bilateral carotid artery stenosis Start: 08-15-2024 End: 08-17-2024 Refill Tru Simon MD Work Phone: Pulmonary Medicine Comment on above: Refill Request Start: 08-10-2024 End: 08-11-2024 Refill Alma Gill APRN.TAG MACHINE OPERATOR Work Phone: [facility] Comment on above: Refill Request Start: 08-05-2024 End: 08-05-2024 Telephone encounter Alma Gill APRN.TAG MACHINE OPERATOR Work Phone: [facility] Comment on above: Electronic Communica tion Start: 07-31-2024 End: 07-31-2024 Telephone encounter Tru Simon MD Work Phone: Pulmonary Medicine Comment on above: Home Health Form (Mary madera) Start: 07-27-2024 End: 07-28-2024 ambulatory Tru Simon MD Work Phone: Pulmonary Medicine Comment on above: Wheezing and crackli ng Start: 07-22-2024 End: 07-22-2024 Telephone encounter Alma Gill APRN.TAG MACHINE OPERATOR Work Phone: [facility] Comment on above: Oxygen Start: 07-20-2024 End: 07-20-2024 ambulatory Alma Gill VOICE OVER ARTIST-C Work Phone: [facility] Work Phone: Start: 07-20-2024 End: 07-20-2024 Patient encounter procedure Alma Gill VOICE OVER ARTIST-C -Laboratory, Specimen Work Phone: Start: 07-20-2024 End: 09-19-2024 Follow-up encounter Tru Simon MD Work Phone: PROVIDER CRITICAL CARE Start: 07-20-2024 End: 07-21-2024 Telephone encounter Alma Gill APRN.TAG MACHINE OPERATOR Work Phone: [facility] Comment on above: Electronic Communica tion; Forms Refill Request Start: 07-20-2024 End: 07-20-2024 ambulatory Alma Gill VOICE OVER ARTIST Facility:[facility] Start: 07-16-2024 ambulatory ALMA A WICHO Facili ty:[facility] Start: 07-16-2024 End: 07-16-2024 Subsequent hospital visit by physician [facility] Work Phone: [facility] Comment on above: Interstitial pulmona ry disease (HCC) [J84.9] Start: 07-14-2024 End: 07-14-2024 Patient encounter procedure Alma Gill APRN.TAG MACHINE OPERATOR Work Phone: [facility] Comment on above: ILD (interstitial destiny ng disease) (HCC) (Primary Dx); Acute on chronic hypoxic respiratory failure (HCC); Dependence on supplemental oxygen; SOB (shortness of breath) on exertion; Wheezing; Neuropathy; Anxiety and depression; Itching Start: 07-14-2024 End: 07-14-2024 ambulatory ALMA Tiffani WICHO Facility:[facility] Start: 07-11-2024 End: 07-13-2024 ambulatory Tru Simon MD Work Phone: Pulmonary Medicine Comment on above: [employer] Start: 07-07-2024 End: 07-15-2024 Telephone encounter Alexys Machado MD Work Phone: Pulmonary Medicine Comment on above: Orders Start: 07-06-2024 End: 07-06-2024 Telephone encounter Alma Gill APRN.TAG MACHINE OPERATOR Work Phone: [facility] Comment on above: Forms Medication Authoriza tion Start: 07-03-2024 End: 07-03-2024 Telephone encounter Alma Gill APRN.TAG MACHINE OPERATOR Work Phone: [facility] Comment on above: Electronic Communica tion; Forms Start: 06-24-2024 End: 06-24-2024 ambulatory TRU SIMON Facility:[facility] Start: 06-24-2024 End: 06-24-2024 Office outpatient visit 40 minutes Tru Simon MD Work Phone: Pulmonary Medicine Comment on above: Hypersensitivity pne umonitis (HCC) (Primary Dx); Chronic respiratory failure with hypoxia (HCC); 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 Comment on above: Orders (Do you want this nocturnal pulse oximetry done on O2 or room air?) Start: 06-09-2024 End: 06-09-2024 Telephone encounter Alma Gill TECHNICAL APPLICATIONS SCIENTIST.TAG MACHINE OPERATOR Work Phone: [facility] Comment on above: Electronic Communica tion; Forms Start: 06-06-2024 End: 06-08-2024 ambulatory Francisco Patel MD Work Phone: Pulmonary Medicine Comment on above: John has yellow muc us Start: 05-28-2024 End: 05-28-2024 Telephone encounter Alma Gill TECHNICAL APPLICATIONS SCIENTIST.TAG MACHINE OPERATOR Work Phone: [facility] Comment on above: Electronic Communica tion; Forms Start: 05-26-2024 End: 05-26-2024 Telephone encounter Alma Gill TECHNICAL APPLICATIONS SCIENTIST.TAG MACHINE OPERATOR Work Phone: [facility] Comment on above: Electronic Communica tion Start: 05-25-2024 End: 05-25-2024 Refill Alma Gill TECHNICAL APPLICATIONS SCIENTIST.TAG MACHINE OPERATOR Work Phone: [facility] Comment on above: Refill Request Prednisone Start: 05-22-2024 End: 05-22-2024 Telephone encounter Alma Gill TECHNICAL APPLICATIONS SCIENTIST.TAG MACHINE OPERATOR Work Phone: [facility] Comment on above: Electronic Communica tion; Forms Start: 05-19-2024 End: 05-19-2024 Telephone encounter Tru Simon MD Work Phone: Pulmonary Medicine Comment on above: patient assistance Start: 05-17-2024 End: 05-18-2024 Refill Alma Gill TECHNICAL APPLICATIONS SCIENTIST.TAG MACHINE OPERATOR Work Phone: [facility] Comment on above: Refill Request Start: 04-28-2024 End: 04-29-2024 ambulatory Alma Gill TECHNICAL APPLICATIONS SCIENTIST.TAG MACHINE OPERATOR Work Phone: [facility] Comment on above: John's Medications Start: 04-27-2024 End: 04-27-2024 [facility] on [facility]: Medication Authoriza tion Start: 04-27-2024 End: 04-27-2024 ambulatory Pulm Lab [facility] Work Phone: [facility] Comment on above: Spirometry Start: 04-27-2024 End: 04-27-2024 Patient encounter procedure [facility]m [facility] Work Phone: PULM LAB [facility] Start: 04-25-2024 End: 04-27-2024 Refill Alma Gill TECHNICAL APPLICATIONS SCIENTIST.TAG MACHINE OPERATOR Work Phone: [facility] Comment on above: Refill Request Start: 04-23-2024 End: 04-24-2024 ambulatory Mitchell Caruso APRN.TAG MACHINE OPERATOR Work Phone: Pulmonary Medicine Comment on above: John's Echo Prednisone Start: 04-22-2024 End: 04-22-2024 ambulatory TRU SIMON Facility:[facility] Start: 04-22-2024 End: 04-22-2024 Office outpatient visit 40 minutes Tru Simon MD Work Phone: Pulmonary Medicine Comment on above: Combined pulmonary f ibrosis and emphysema (CPFE) (HCC) (Primary Dx); Chronic respiratory failure with hypoxia (HCC); Hypersensitivity pneumonitis (HCC); Gastroesophageal reflux disease, unspecified whether esophagitis present Start: 04-19-2024 End: 04-20-2024 ambulatory Mitchell Caruso APRN.TAG MACHINE OPERATOR Work Phone: Pulmonary Medicine Comment on above: John is congested Refill Request Start: 04-16-2024 End: 04-16-2024 ambulatory Qi Zazueta RN Work Phone: [employer] Start: 04-16-2024 End: 04-16-2024 Home visit Qi Zazueta RN Work Phone: [employer] Comment on above: Transition Of Care ( TCM follow up call ) Start: 04-16-2024 End: 04-16-2024 Telephone encounter Alma Gill APRN.TAG MACHINE OPERATOR Work Phone: [facility] Comment on above: Electronic Communica tion (ORDER: [id number]); Forms Start: 04-14-2024 End: 04-14-2024 Refill Alma Gill APRN.TAG MACHINE OPERATOR Work Phone: [facility] Comment on above: Refill Request Start: 04-13-2024 End: 04-13-2024 Telephone encounter Alma Gill APRN.TAG MACHINE OPERATOR Work Phone: [facility] Comment on above: Patient Update (Exte nd PT orders ) Start: 04-02-2024 End: 04-02-2024 Telephone encounter Mitchell Caruso APRN.TAG MACHINE OPERATOR Work Phone: Pulmonary Medicine Comment on above: Insurance Authorizat ion (OFEV) Start: 04-01-2024 End: 04-01-2024 ambulatory Qi Zazueta RN Work Phone: [employer] Start: 04-01-2024 End: 04-01-2024 Home visit Qi Zazueta RN Work Phone: [employer] Comment on above: Transition Of Care ( TCM follow up call ) Start: 03-30-2024 End: 04-03-2024 Refill Alma Gill TECHNICAL APPLICATIONS SCIENTIST.TAG MACHINE OPERATOR Work Phone: [facility] Comment on above: Refill Request Medications ILD (interstitial destiny ng disease) (HCC) (Primary Dx); Dependence on supplemental oxygen; Chronic diastolic congestive heart failure (HCC); Hyponatremia; Encounter for immunization Start: 03-27-2024 End: 03-27-2024 ambulatory MITCHELL CARUSO Facility:[facility] Start: 03-27-2024 End: 03-27-2024 Office outpatient visit 40 minutes Mitchell Caruso APRN.CNP Work Phone: Pulmonary Medicine Comment on above: Idiopathic pulmonary fibrosis (HCC) (Primary Dx); Chronic hypoxemic respiratory failure (HCC); Pulmonary arterial hypertension (HCC) Start: 03-21-2024 End: 03-23-2024 Refill Alma Gill APRN.TAG MACHINE OPERATOR Work Phone: [facility] Comment on above: Refill Request Start: 03-20-2024 End: 03-20-2024 ambulatory Qi Zazueta RN Work Phone: [employer] Start: 03-20-2024 End: 03-20-2024 Home visit Qi Zazueta RN Work Phone: [employer] Comment on above: Transition Of Care ( TCM follow up call ) Start: 03-20-2024 End: 03-20-2024 Telephone encounter Alma Gill APRN.TAG MACHINE OPERATOR Work Phone: [facility] Comment on above: Electronic Communica tion; Orders (Order: [id number]) Start: 03-19-2024 End: 03-19-2024 Telephone encounter Alma Gill APRN.TAG MACHINE OPERATOR Work Phone: [facility] Comment on above: Electronic Communica tion; Forms Start: 03-17-2024 End: 03-17-2024 Telephone encounter Alma Gill APRN.CNP Work Phone: [facility] Comment on above: Patient Update Start: 03-13-2024 End: 03-13-2024 Office outpatient visit 40 minutes Mitchell Caruso APRN.CNP Work Phone: Pulmonary Medicine Comment on above: ILD (interstitial destiny ng disease) (HCC) (Primary Dx); Idiopathic pulmonary fibrosis (HCC); Chronic hypoxemic respiratory failure (HCC); COPD, mild (HCC) Start: 03-13-2024 End: 03-13-2024 ambulatory Pulm Lab [facility] Work Phone: [facility] Comment on above: Spirometry Start: 03-13-2024 End: 03-13-2024 Patient encounter procedure Pulm [facility] Work Phone: PULM LAB [facility] Start: 03-09-2024 End: 03-09-2024 ambulatory ALMA GILL Facility:[facility] Start: 03-09-2024 End: 03-09-2024 Subsequent hospital visit by physician [facility] Work Phone: [facility] Comment on above: Interstitial pulmona ry disease (HCC) [J84.9] Start: 03-09-2024 End: 03-10-2024 Telephone encounter Alma Gill APRN.TAG MACHINE OPERATOR Work Phone: [facility] Comment on above: Results Refill Request Start: 03-02-2024 End: 03-02-2024 Patient encounter procedure Alma Gill APRN.CNP Work Phone: [facility] Comment on above: Acute respiratory fa ilure with hypoxia (HCC) (Primary Dx); Chronic diastolic congestive heart failure (HCC); Anxiety and depression; Dependence on supplemental oxygen; Hyponatremia Start: 03-01-2024 End: 03-02-2024 Refill Alma Gill APRN.CNP Work Phone: [facility] Comment on above: Med Change Request Start: 02-28-2024 End: 02-28-2024 Telephone encounter Alma Gill APRN.TAG MACHINE OPERATOR Work Phone: [facility] Comment on above: Forms Start: 02-27-2024 End: 02-27-2024 Patient encounter procedure Francesco Tobias Work Phone: Podiatry Comment on above: Onychomycosis (Prima ry Dx); 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) Start: 02-25-2024 End: 02-25-2024 Refill Alma Gill TECHNICAL APPLICATIONS SCIENTIST.TAG MACHINE OPERATOR Work Phone: [facility] Comment on above: Refill Request Start: 02-21-2024 End: 02-21-2024 Patient encounter procedure [facility] Provider [facility] Department Start: 02-21-2024 End: 02-21-2024 Telephone encounter Alma Gill TECHNICAL APPLICATIONS SCIENTIST.TAG MACHINE OPERATOR Work Phone: [facility] Comment on above: Verbal orders (Updat e in home PT plan of care) Start: 02-18-2024 End: 02-18-2024 ambulatory Lilian Sethi RN Work Phone: [employer]ing [employer] Start: 02-18-2024 End: 02-18-2024 Home visit Lilian Sethi RN Work Phone: [employer] Comment on above: Transition Of Care ( TCM f/u) Start: 02-18-2024 End: 02-18-2024 Telephone encounter Alma Gill TECHNICAL APPLICATIONS SCIENTIST.TAG MACHINE OPERATOR Work Phone: [facility] Comment on above: Electronic Communica tion; Forms Start: 02-11-2024 End: 02-11-2024 Telephone encounter Alma Gill TECHNICAL APPLICATIONS SCIENTIST.TAG MACHINE OPERATOR Work Phone: [facility] Comment on above: Orders Start: 02-11-2024 End: 02-11-2024 ambulatory Beatrice Sarmiento Facility:[facility] Start: 02-05-2024 End: 02-05-2024 Telephone encounter Alma Gill TECHNICAL APPLICATIONS SCIENTIST.TAG MACHINE OPERATOR Work Phone: [facility] Comment on above: Medication Problem Refill Request Start: 02-04-2024 End: 02-04-2024 ambulatory Qi Zazueta RN Work Phone: [employer] Start: 02-04-2024 End: 02-04-2024 Telephone follow-up Qi Zazueta RN Work Phone: [employer] Comment on above: Transition Of Care ( TCM follow up call ) Weekly phone contact (Recurring) for Transitional Care Management Start: 02-03-2024 End: 02-03-2024 Patient encounter procedure Beatrice Sarmiento MD Work Phone: Cardiology Comment on above: 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); Chronic diastolic congestive heart failure (HCC); Essential hypertension; Mixed hyperlipidemia; Peripheral vascular disease (HCC); Bilateral carotid artery stenosis Start: 01-29-2024 End: 01-29-2024 Patient encounter procedure Lilian Rodríguez PA-C Work Phone: Pulmonary Medicine Comment on above: Interstitial pulmona ry disease (HCC) (Primary Dx); COPD, mild (HCC); Chronic hypoxemic respiratory failure (HCC); Lung nodule Start: 01-27-2024 End: 01-27-2024 Telephone encounter Alma Gill TECHNICAL APPLICATIONS SCIENTIST.TAG MACHINE OPERATOR Work Phone: [facility] Comment on above: Patient Update Start: 01-24-2024 End: 01-24-2024 Telephone encounter Alma Gill TECHNICAL APPLICATIONS SCIENTIST.TAG MACHINE OPERATOR Work Phone: [facility] Comment on above: HOME PT Start: 01-23-2024 End: 01-23-2024 Telephone encounter Alma Gill TECHNICAL APPLICATIONS SCIENTIST.TAG MACHINE OPERATOR Work Phone: [facility] Comment on above: Patient Update; VERB AL ORDERS Start: 01-21-2024 End: 09-10-2024 ambulatory Qi Zazueta RN Work Phone: [employer] Start: 01-21-2024 End: 01-21-2024 Telephone follow-up Qi Zazueta RN Work Phone: [employer] Comment on above: Transition Of Care ( TCM follow up call ) Weekly phone contact (Recurring) for Transitional Care Management Start: 01-20-2024 End: 01-20-2024 Telephone encounter Alma A Queden TECHNICAL APPLICATIONS SCIENTIST.TAG MACHINE OPERATOR Work Phone: [facility] Comment on above: Orders ([facility] orders ) Start: 01-17-2024 End: 01-17-2024 ambulatory Qi Zazueta RN Work Phone: [employer] Start: 01-17-2024 End: 01-17-2024 Home visit Qi Zazueta RN Work Phone: [employer] Comment on above: Transition Of Care ( [facility] 01/10-01/16/24 TCM) Initial phone contact for Transitional Care Management Start: 01-14-2024 End: 01-14-2024 Telephone encounter Alma A Queden TECHNICAL APPLICATIONS SCIENTIST.TAG MACHINE OPERATOR Work Phone: [facility] Comment on above: Verbal Order Start: 01-02-2024 End: 01-03-2024 Refill Alma A Queden TECHNICAL APPLICATIONS SCIENTIST.TAG MACHINE OPERATOR Work Phone: [facility] Comment on above: Refill Request Start: 12-25-2023 Telephone encounter Alma A Queden TECHNICAL APPLICATIONS SCIENTIST.TAG MACHINE OPERATOR Work Phone: [facility] Comment on above: Patient Question Start: 12-20-2023 Refill Alma A Qued en TECHNICAL APPLICATIONS SCIENTIST.TAG MACHINE OPERATOR Work Phone: [facility] Comment on above: Refill Request Start: 12-12-2023 Refill Alma A Qued en TECHNICAL APPLICATIONS SCIENTIST.TAG MACHINE OPERATOR Work Phone: [facility] Comment on above: Refill Request Start: 11-29-2023 ambulatory MONE Hernandez ty:[facility] Start: 11-29-2023 End: 11-29-2023 Subsequent hospital visit by physician Rosemary Russell MD Work Phone: [facility] Endoscopy Comment on above: Screening for colon cancer [Z12.11] Start: 11-28-2023 Patient encounter procedure Ccf Provider [facility] Department Start: 11-21-2023 ambulatory Mone Quiles on PA-C Work Phone: Gastroenterology [place] Comment on above: John's colonoscopy Refill Request Start: 11-21-2023 End: 11-21-2023 Subsequent hospital visit by physician Kenna [facility] Buddy Walton Work Phone: Radiology Comment on above: Ulcer of toe of left foot, limited to breakdown of skin (HCC) [L97.521] Start: 11-21-2023 End: 11-21-2023 Patient encounter procedure Francesco Louisaddi Work Phone: Podiatry Comment on above: Ulcer of toe of left foot, limited to breakdown of skin (HCC) (Primary Dx); Onychomycosis; 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) Start: 11-20-2023 ambulatory Beatrice allan MD Work Phone: Cardiology Comment on above: John's Colonoscopy Start: 11-20-2023 Refill Alma A Qued en TECHNICAL APPLICATIONS SCIENTIST.TAG MACHINE OPERATOR Work Phone: [facility] Comment on above: Refill Request Start: 11-04-2023 Telephone encounter Rosemary Napier MD Work Phone: General Surgery Start: 11-02-2023 Refill Nicolasa Yanez farida DO Work Phone: [facility] Comment on above: Refill Request Start: 10-31-2023 Refill Alma A Qued en TECHNICAL APPLICATIONS SCIENTIST.TAG MACHINE OPERATOR Work Phone: [facility] Comment on above: Refill Request Start: 10-31-2023 Telephone encounter Alam Rodriguezden TECHNICAL APPLICATIONS SCIENTIST.TAG MACHINE OPERATOR Work Phone: [facility] Comment on above: Results Start: 10-28-2023 Telephone encounter Mine Brady TECHNICAL APPLICATIONS SCIENTIST.TAG MACHINE OPERATOR Work Phone: [facility] Cardiology Comment on above: Results Start: 10-21-2023 Refill Alma A Qued en TECHNICAL APPLICATIONS SCIENTIST.TAG MACHINE OPERATOR Work Phone: [facility] Comment on above: Refill Request Start: 10-16-2023 Refill Alma A Qued en TECHNICAL APPLICATIONS SCIENTIST.TAG MACHINE OPERATOR Work Phone: [facility] Comment on above: Refill Request Start: 10-15-2023 End: 10-15-2023 Patient encounter procedure Katelynn Keron Knowles DO Work Phone: Vascular Surgery Comment on above: Peripheral arterial disease (HCC) (Primary Dx) Start: 10-01-2023 Telephone encounter David sher MD Work Phone: Urology Comment on above: Appointment Start: 09-25-2023 Refill Alma A Qued en TECHNICAL APPLICATIONS SCIENTIST.TAG MACHINE OPERATOR Work Phone: [facility] Comment on above: Med Change Request Start: 09-19-2023 Refill Nicolasa iqbal DO Work Phone: [facility] Comment on above: Refill Request Start: 09-12-2023 ambulatory Alma A Qued en TECHNICAL APPLICATIONS SCIENTIST.TAG MACHINE OPERATOR Work Phone: [facility] Comment on above: [facility] Start: 09-09-2023 ambulatory Alma A Qued en TECHNICAL APPLICATIONS SCIENTIST.TAG MACHINE OPERATOR Work Phone: [facility] Comment on above: Stool sample Start: 09-09-2023 Refill Alma A Qued en TECHNICAL APPLICATIONS SCIENTIST.TAG MACHINE OPERATOR Work Phone: [facility] Comment on above: Med Change Request Start: 09-09-2023 Telephone encounter Francisco Patel MD Work Phone: Pulmonary Medicine Comment on above: Orders (EPIC down so could not put in orders) Start: 09-09-2023 End: 09-09-2023 Patient encounter procedure Francisco Patel MD Work Phone: Pulmonary Medicine Comment on above: ILD (interstitial destiny ng disease) ([facility]) (Primary Dx); Lung nodule; COPD, mild ([facility]); Class 2 obesity; Lung nodules; 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 ([facility]) Start: 09-03-2023 ambulatory No Pcp TECHNICAL APPLICATIONS SCIENTIST [facility] [place] Start: 09-03-2023 End: 09-03-2023 Patient encounter procedure No Pcp TECHNICAL APPLICATIONS SCIENTIST [facility] [place] Comment on above: Diarrhea, unspecifie d type (Primary Dx); Bilateral impacted cerumen; Need for shingles vaccine Start: 08-30-2023 ambulatory No Pcp TECHNICAL APPLICATIONS SCIENTIST [facility] [place] Start: 08-29-2023 End: 08-29-2023 Patient encounter procedure Katelynn Keron Knowles DO Work Phone: Vascular Surgery Comment on above: Peripheral arterial disease (HCC) (Primary Dx); Onychomycosis Start: 08-26-2023 Telephone encounter Alma A Queden TECHNICAL APPLICATIONS SCIENTIST.TAG MACHINE OPERATOR Work Phone: [facility] Comment on above: Orders Start: 08-23-2023 Refill Alma A Qued en TECHNICAL APPLICATIONS SCIENTIST.TAG MACHINE OPERATOR Work Phone: [facility] Comment on above: Refill Request Start: 08-20-2023 Refill Alma A Qued en TECHNICAL APPLICATIONS SCIENTIST.TAG MACHINE OPERATOR Work Phone: [facility] Comment on above: Med Change Request Start: 08-18-2023 Refill Alma A Qued en TECHNICAL APPLICATIONS SCIENTIST.TAG MACHINE OPERATOR Work Phone: [facility] Comment on above: Refill Request Start: 08-15-2023 Refill Alma A Qued en TECHNICAL APPLICATIONS SCIENTIST.TAG MACHINE OPERATOR Work Phone: [facility] Comment on above: Refill Request Start: 08-05-2023 ambulatory Alma A Qued en TECHNICAL APPLICATIONS SCIENTIST.TAG MACHINE OPERATOR Work Phone: [facility] Comment on above: Medication not on li st on MyChart Refill Request Start: 07-25-2023 Refill Alma A Qued en TECHNICAL APPLICATIONS SCIENTIST.TAG MACHINE OPERATOR Work Phone: [facility] Comment on above: Refill Request Start: 07-22-2023 End: 07-22-2023 Patient encounter procedure [facility] Sarmiento MD Work Phone: Cardiology Comment on above: 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); Chronic diastolic congestive heart failure (HCC); Essential hypertension; Mixed hyperlipidemia; Peripheral vascular disease (HCC); SOB (shortness of breath); Bilateral carotid artery stenosis Start: 07-18-2023 Refill Alma A Qued en TECHNICAL APPLICATIONS SCIENTIST.TAG MACHINE OPERATOR Work Phone: [facility] Comment on above: Refill Request Start: 06-26-2023 ambulatory Mone dos santos PA-C Work Phone: Gastroenterology [place] Comment on above: John's colonoscopy Start: 06-25-2023 ambulatory Alma A Qued en TECHNICAL APPLICATIONS SCIENTIST.TAG MACHINE OPERATOR Work Phone: [facility] Comment on above: John diarrhea Start: 06-20-2023 End: 06-20-2023 Subsequent hospital visit by physician David Lee MD Work Phone: Ambulatory Surgery Comment on above: Chronic GERD [K21.9] Start: 06-19-2023 Refill Nicolasa Yanez farida NG Work Phone: [facility] Comment on above: Refill Request Start: 04-26-2023 Refill [facility] allan MD Work Phone: [facility] [place] Comment on above: Refill Request pravastatin 20 mg ta blet Start: 04-23-2023 End: 04-23-2023 Patient encounter procedure Mone Robertson PA-C Work Phone: [facility] Comment on above: Chronic GERD (Primar y Dx); Melena; Screening for colon cancer; Constipation, unspecified constipation type Start: 04-16-2023 Orders Only [facility] allan MD Work Phone: Cardiology Comment on above: Bilateral carotid ar daren stenosis (Primary Dx) Start: 04-15-2023 End: 04-15-2023 Office outpatient visit 25 minutes Lilian SHORE-C Work Phone: Pulmonary Medicine Comment on above: 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 ([facility]) (Primary Dx); Lung nodules; Class 2 obesity due to excess calories with body mass index (BMI) of 36.0 to 36.9 in adult, unspecified whether serious comorbidity present; ILD (interstitial lung disease) ([facility]) Start: 04-15-2023 Refill Lilian Edmond-C Work Phone: Pulmonary Medicine Comment on above: Refill Request Start: 04-03-2023 Telephone encounter Lilian SHORE-C Work Phone: Pulmonary Medicine Comment on above: Orders Start: 03-08-2023 Refill Alma A Qued en TECHNICAL APPLICATIONS SCIENTIST.TAG MACHINE OPERATOR Work Phone: [facility] Comment on above: Med Change Request Start: 03-04-2023 End: 03-04-2023 Office outpatient visit 25 minutes Lilian SHORE-C Work Phone: Pulmonary Medicine Comment on above: 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 ([facility]) (Primary Dx); Dyspnea, unspecified type; Lung nodules; ILD (interstitial lung disease) ([facility]); Class 2 obesity due to excess calories with body mass index (BMI) of 36.0 to 36.9 in adult, unspecified whether serious comorbidity present Start: 02-28-2023 Refill Alma A Qued en TECHNICAL APPLICATIONS SCIENTIST.TAG MACHINE OPERATOR Work Phone: [facility] Comment on above: Refill Request Start: 02-20-2023 Telephone encounter Alma Rodriguezden TECHNICAL APPLICATIONS SCIENTIST.TAG MACHINE OPERATOR Work Phone: [facility] Comment on above: Electronic Communica tion Start: 02-18-2023 Telephone encounter Almaangelita Rodriguezden TECHNICAL APPLICATIONS SCIENTIST.TAG MACHINE OPERATOR Work Phone: [facility] Comment on above: Verbal orders Start: 02-15-2023 Refill Alma A Qued en TECHNICAL APPLICATIONS SCIENTIST.TAG MACHINE OPERATOR Work Phone: [facility] Comment on above: Med Change Request Start: 02-14-2023 ambulatory Alma A Qued en TECHNICAL APPLICATIONS SCIENTIST.TAG MACHINE OPERATOR Work Phone: [facility] Start: 02-14-2023 Follow-up encounter Alma A Queden TECHNICAL APPLICATIONS SCIENTIST.TAG MACHINE OPERATOR Work Phone: [facility] Comment on above: Follow up on GI Start: 02-13-2023 Refill Alma A Qued en TECHNICAL APPLICATIONS SCIENTIST.TAG MACHINE OPERATOR Work Phone: [facility] Comment on above: Refill Request Start: 02-05-2023 ambulatory Alma A Qued en TECHNICAL APPLICATIONS SCIENTIST.TAG MACHINE OPERATOR Work Phone: [facility] Comment on above: John bowel issues Start: 02-05-2023 Telephone encounter Alma A Queden TECHNICAL APPLICATIONS SCIENTIST.TAG MACHINE OPERATOR Work Phone: [facility] Comment on above: Patient Update Start: 01-21-2023 End: 01-21-2023 Patient encounter procedure Lilian Rodríguez PA-C Work Phone: Pulmonary Medicine Comment on above: 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 ([facility]) (Primary Dx); Lung nodules; ILD (interstitial lung disease) ([facility]); Class 2 obesity due to excess calories with body mass index (BMI) of 36.0 to 36.9 in adult, unspecified whether serious comorbidity present Start: 01-14-2023 Refill Alma A Qued en TECHNICAL APPLICATIONS SCIENTIST.TAG MACHINE OPERATOR Work Phone: [facility] Comment on above: Refill Request Start: 12-27-2022 Refill Alma A Qued en TECHNICAL APPLICATIONS SCIENTIST.TAG MACHINE OPERATOR Work Phone: [facility] Comment on above: Refill Request Start: 12-17-2022 Telephone encounter Alma A Queden TECHNICAL APPLICATIONS SCIENTIST.TAG MACHINE OPERATOR Work Phone: [facility] Comment on above: Forms Start: 12-15-2022 Refill Alma A Qued en TECHNICAL APPLICATIONS SCIENTIST.TAG MACHINE OPERATOR Work Phone: [facility] Comment on above: Refill Request Start: 12-15-2022 Refill Alma A Qued en TECHNICAL APPLICATIONS SCIENTIST.TAG MACHINE OPERATOR Work Phone: [facility] Comment on above: Refill Request Start: 12-13-2022 Telephone encounter Alma A Queden TECHNICAL APPLICATIONS SCIENTIST.TAG MACHINE OPERATOR Work Phone: [facility] Comment on above: Results Medication Renewal R equest Start: 12-10-2022 End: 12-10-2022 Subsequent hospital visit by physician [facility] Work Phone: [facility] Comment on above: Lung nodules [R91.8] Start: 11-28-2022 Refill Alma A Qued en TECHNICAL APPLICATIONS SCIENTIST.TAG MACHINE OPERATOR Work Phone: [facility] Comment on above: Refill Request Start: 11-20-2022 End: 11-20-2022 ambulatory Pulm Lab [facility] Work Phone: PULM LAB [facility] Comment on above: Spirometry Start: 11-20-2022 End: 11-20-2022 Patient encounter procedure [facility]m [facility] Work Phone: [facility] Comment on above: 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 ([facility]) (Primary Dx); Lung nodules; ILD (interstitial lung disease) ([facility]); Class 2 obesity due to excess calories with body mass index (BMI) of 36.0 to 36.9 in adult, unspecified whether serious comorbidity present; Angina at rest ([facility]) Start: 11-16-2022 Telephone encounter Alma A Queden TECHNICAL APPLICATIONS SCIENTIST.TAG MACHINE OPERATOR Work Phone: [facility] Comment on above: Results Start: 11-12-2022 Refill Alma A Qued en TECHNICAL APPLICATIONS SCIENTIST.TAG MACHINE OPERATOR Work Phone: [facility] Comment on above: Refill Request Start: 11-08-2022 End: 11-08-2022 Nursing evaluation of patient and report Nurse Saniya Alar[facility] [place] Work Phone: [facility] Comment on above: Encounter for immuni zation (Primary Dx) Start: 11-08-2022 End: 11-08-2022 Subsequent hospital visit by physician [facility] Comment on above: Dyspnea, unspecified type [R06.00] Start: 11-01-2022 Refill Alma A Qued en TECHNICAL APPLICATIONS SCIENTIST.TAG MACHINE OPERATOR Work Phone: [facility] Comment on above: Refill Request Start: 10-30-2022 Telephone encounter Alma A Queden TECHNICAL APPLICATIONS SCIENTIST.TAG MACHINE OPERATOR Work Phone: [facility] Comment on above: Patient Question Start: 10-16-2022 ambulatory Alma A Qued en TECHNICAL APPLICATIONS SCIENTIST.TAG MACHINE OPERATOR Work Phone: [facility] Comment on above: Isosorbide Start: 10-12-2022 Telephone encounter Alma A Queden TECHNICAL APPLICATIONS SCIENTIST.TAG MACHINE OPERATOR Work Phone: [facility] Comment on above: Patient Update Start: 10-06-2022 Refill Alma A Qued en TECHNICAL APPLICATIONS SCIENTIST.TAG MACHINE OPERATOR Work Phone: [facility] Comment on above: Refill Request Start: 09-19-2022 Telephone encounter [facility] MD Work Phone: Cardiology Comment on above: Patient Update Start: 09-13-2022 End: 09-13-2022 Patient encounter procedure Alma A Queden TECHNICAL APPLICATIONS SCIENTIST.TAG MACHINE OPERATOR Work Phone: [facility] Comment on above: SOB (shortness of br eath) on exertion (Primary Dx); Postnasal drip; Chronic diastolic congestive heart failure (HCC); Pulmonary nodule seen on imaging study; Need for pneumococcal vaccination Start: 09-07-2022 ambulatory Alma A Qued en TECHNICAL APPLICATIONS SCIENTIST.TAG MACHINE OPERATOR Work Phone: [facility] Comment on above: Plavix Start: 09-07-2022 Refill Alma A Qued en TECHNICAL APPLICATIONS SCIENTIST.TAG MACHINE OPERATOR Work Phone: [facility] Comment on above: Med Change Request Start: 09-05-2022 Telephone encounter Alma Gill TECHNICAL APPLICATIONS SCIENTIST.TAG MACHINE OPERATOR Work Phone: [facility] Comment on above: Patient Update Start: 09-03-2022 Refill Tammy Bliss son TECHNICAL APPLICATIONS SCIENTIST.TAG MACHINE OPERATOR Work Phone: Cardiology Comment on above: Refill Request Start: 08-29-2022 Refill Alma Rodriguezd en TECHNICAL APPLICATIONS SCIENTIST.TAG MACHINE OPERATOR Work Phone: [facility] Comment on above: Refill Request Start: 08-22-2022 End: 08-22-2022 Subsequent hospital visit by physician [facility] Work Phone: [facility] Comment on above: SOB (shortness of br eath) on exertion [R06.02] Start: 08-21-2022 End: 08-21-2022 Patient encounter procedure Alma Gill TECHNICAL APPLICATIONS SCIENTIST.TAG MACHINE OPERATOR Work Phone: [facility] Comment on above: SOB (shortness of br eath) on exertion (Primary Dx); Essential hypertension; Chronic diastolic congestive heart failure (HCC); Peripheral vascular disease (HCC); Post PTCA; Hyponatremia; Impaired mobility Start: 08-21-2022 Telephone encounter Alma Gill APRN.TAG MACHINE OPERATOR Work Phone: [facility] Comment on above: Electronic Communica tion; Forms Start: 08-17-2022 Telephone encounter Alma Gill TECHNICAL APPLICATIONS SCIENTIST.TAG MACHINE OPERATOR Work Phone: [facility] Comment on above: Verbal orders Start: 08-13-2022 Telephone encounter Suzanne Almaguer MA [facility] Comment on above: Patient Question (Me illsa form kellyvamendoza ) Follow Up (F/U - att empt made. 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) Start: 07-19-2022 Patient encounter procedure [facility] Provider [facility] Department Start: 07-13-2022 Refill Alma A Qued en TECHNICAL APPLICATIONS SCIENTIST.TAG MACHINE OPERATOR Work Phone: [facility] Comment on above: Refill Request Start: 07-05-2022 End: 07-05-2022 Office outpatient visit 40 minutes Tammy Loaiza TECHNICAL APPLICATIONS SCIENTIST.TAG MACHINE OPERATOR Work Phone: Cardiology Comment on above: Coronary artery dise ase involving ione coronary artery of ione heart with angina pectoris (HCC) (Primary Dx); Chronic diastolic congestive heart failure (HCC); Essential hypertension; Mixed hyperlipidemia; Abnormal stress test Start: 07-05-2022 Refill Alma A Qued en TECHNICAL APPLICATIONS SCIENTIST.TAG MACHINE OPERATOR Work Phone: [facility] Comment on above: Refill Request Start: 06-28-2022 Telephone encounter Dedrick Stanislav Krause DO Work Phone: Cardiology Comment on above: Appointment Start: 06-26-2022 Telephone encounter Alma Gill TECHNICAL APPLICATIONS SCIENTIST.TAG MACHINE OPERATOR Work Phone: [facility] Comment on above: Results Start: 06-19-2022 End: 06-19-2022 Subsequent hospital visit by physician Stress Lab [facility] Work Phone: Cardiology Lab Comment on above: Chest pain, unspecif ied type [R07.9] Start: 06-19-2022 End: 06-19-2022 Subsequent hospital visit by physician [facility] Work Phone: Molecular Imaging Comment on above: Chest pain, unspecif ied type [R07.9] Start: 06-18-2022 Telephone encounter Sarai Cabrera RN Cardiology Lab Comment on above: Reminder Call Start: 06-07-2022 Refill Alma A Qued en TECHNICAL APPLICATIONS SCIENTIST.TAG MACHINE OPERATOR Work Phone: [facility] Comment on above: Refill Request Start: 06-05-2022 Telephone encounter Adrianne Ceja n TECHNICAL APPLICATIONS SCIENTIST.TAG MACHINE OPERATOR Work Phone: Cardiology Comment on above: Appointment Start: 06-04-2022 End: 06-04-2022 Patient encounter procedure Dedrick Krause DO Work Phone: Cardiology Comment on above: Chronic diastolic co ngestive heart failure (HCC) (Primary Dx); Chest discomfort; 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); Essential hypertension; Mixed hyperlipidemia; Impaired fasting glucose; S/P CABG x 4; Hyponatremia Start: 06-01-2022 Telephone encounter Alma A Queden TECHNICAL APPLICATIONS SCIENTIST.TAG MACHINE OPERATOR Work Phone: [facility] Comment on above: Electronic Communica tion; Orders Start: 05-18-2022 ambulatory Alma A Qued en TECHNICAL APPLICATIONS SCIENTIST.TAG MACHINE OPERATOR Work Phone: [facility] Comment on above: Trazadone Start: 05-16-2022 Telephone encounter Alma A Queden TECHNICAL APPLICATIONS SCIENTIST.TAG MACHINE OPERATOR Work Phone: [facility] Comment on above: Patient Question Start: 05-08-2022 Refill Alma A Qued en TECHNICAL APPLICATIONS SCIENTIST.TAG MACHINE OPERATOR Work Phone: [facility] Comment on above: Refill Request Start: 05-03-2022 Telephone encounter Alma A Queden TECHNICAL APPLICATIONS SCIENTIST.TAG MACHINE OPERATOR Work Phone: [facility] Comment on above: Forms ([facility] Prescription - Detailed Written Order) Start: 05-02-2022 Refill Alma A Qued en TECHNICAL APPLICATIONS SCIENTIST.TAG MACHINE OPERATOR Work Phone: [facility] Comment on above: Refill Request Start: 04-30-2022 ambulatory Alma A Qued en TECHNICAL APPLICATIONS SCIENTIST.TAG MACHINE OPERATOR Work Phone: [facility] Comment on above: Wheelchair Prescript ion Start: 04-26-2022 Telephone encounter Alma A Queden TECHNICAL APPLICATIONS SCIENTIST.TAG MACHINE OPERATOR Work Phone: [facility] Comment on above: Electronic Communica tion Start: 04-19-2022 Telephone encounter Alma A Queden TECHNICAL APPLICATIONS SCIENTIST.TAG MACHINE OPERATOR Work Phone: [facility] Comment on above: Electronic Communica tion; Forms Start: 04-10-2022 Telephone encounter Alma A Queden TECHNICAL APPLICATIONS SCIENTIST.TAG MACHINE OPERATOR Work Phone: [facility] Comment on above: Electronic Communica tion; Forms Start: 04-05-2022 Refill Alma A Qued en TECHNICAL APPLICATIONS SCIENTIST.TAG MACHINE OPERATOR Work Phone: [facility] Comment on above: Refill Request Start: 03-19-2022 ambulatory Alma A Qued en TECHNICAL APPLICATIONS SCIENTIST.TAG MACHINE OPERATOR Work Phone: [facility] Comment on above: UTI Results Start: 03-06-2022 Telephone encounter Alma A Queden TECHNICAL APPLICATIONS SCIENTIST.TAG MACHINE OPERATOR Work Phone: [facility] Comment on above: Electronic Communica tion; Forms Start: 03-05-2022 Refill Alma A Qued en TECHNICAL APPLICATIONS SCIENTIST.TAG MACHINE OPERATOR Work Phone: [facility] Comment on above: Refill Request Start: 03-01-2022 ambulatory Alma A Qued en TECHNICAL APPLICATIONS SCIENTIST.TAG MACHINE OPERATOR Work Phone: [facility] Comment on above: Add medication Start: 02-28-2022 Refill Alma A Qued en TECHNICAL APPLICATIONS SCIENTIST.TAG MACHINE OPERATOR Work Phone: [facility] Comment on above: Refill Request Start: 02-23-2022 Patient encounter procedure [facility] Provider [facility] Department Start: 02-20-2022 End: 02-20-2022 Subsequent hospital visit by physician Card/Pulm Lab [facility]UL[facility] Comment on above: Chest pain, unspecif ied type [R07.9] Start: 02-19-2022 End: 02-19-2022 Patient encounter procedure Alma Tiffani Wicho TECHNICAL APPLICATIONS SCIENTIST.TAG MACHINE OPERATOR Work Phone: [facility] Comment on above: SOB (shortness of br eath) (Primary Dx); Chronic congestive heart failure, unspecified heart failure type (HCC); Pressure injury of right buttock, stage 2 (HCC); Pressure injury of left buttock, stage 2 (HCC); Skin breakdown; Dysuria; Acute cystitis with hematuria; Chronic low back pain, unspecified back pain laterality, unspecified whether sciatica present; Impaired mobility Start: 02-12-2022 ambulatory Alma Rolon en TECHNICAL APPLICATIONS SCIENTIST.TAG MACHINE OPERATOR Work Phone: [facility] Comment on above: EkG,Echo and Nuclear Stress test Start: 02-12-2022 Telephone encounter Alma Gill APRN.TAG MACHINE OPERATOR Work Phone: [facility] Comment on above: Results; Consult Start: 02-09-2022 Telephone encounter Alma Gill TECHNICAL APPLICATIONS SCIENTIST.TAG MACHINE OPERATOR Work Phone: [facility] Comment on above: Results Start: 02-08-2022 End: 02-08-2022 Subsequent hospital visit by physician [facility] Comment on above: Chronic congestive h eart failure, unspecified heart failure type (HCC) [I50.9] Start: 02-08-2022 End: 02-08-2022 Patient encounter procedure Alma Gill TECHNICAL APPLICATIONS SCIENTIST.TAG MACHINE OPERATOR Work Phone: [facility] Comment on above: Chronic congestive h eart failure, unspecified heart failure type (HCC) (Primary Dx); SOB (shortness of breath); Pressure injury of right buttock, stage 2 (HCC); Pressure injury of left buttock, stage 2 (HCC) Start: 02-05-2022 ambulatory Alma Rolon en TECHNICAL APPLICATIONS SCIENTIST.TAG MACHINE OPERATOR Work Phone: [facility] Start: 02-05-2022 Follow-up encounter Alma Gill TECHNICAL APPLICATIONS SCIENTIST.TAG MACHINE OPERATOR Work Phone: [facility] Comment on above: Follow up on air jordyn tresudha Start: 02-01-2022 End: 02-01-2022 Patient encounter procedure Alma A Queden TECHNICAL APPLICATIONS SCIENTIST.TAG MACHINE OPERATOR Work Phone: [facility] Comment on above: Pressure injury of r ight buttock, stage 2 (HCC) (Primary Dx); Pressure injury of left buttock, stage 2 (HCC); At high risk for skin breakdown; Abnormality of gait; Chronic congestive heart failure, unspecified heart failure type (HCC); Chest pain, unspecified type; Essential hypertension; Neuropathy; Essential tremor; Anxiety and depression; Encounter for immunization; Screening for viral disease; Screening for lipid disorders; Screening for deficiency anemia; Screening for diabetes mellitus Start: 01-30-2022 Refill Alma A Qued en TECHNICAL APPLICATIONS SCIENTIST.TAG MACHINE OPERATOR Work Phone: [facility] Comment on above: Refill Request Start: 01-26-2022 Telephone encounter Alma A Queden TECHNICAL APPLICATIONS SCIENTIST.TAG MACHINE OPERATOR Work Phone: [facility] Comment on above: Appointment Start: 01-22-2022 ambulatory Alma A Qued en TECHNICAL APPLICATIONS SCIENTIST.TAG MACHINE OPERATOR Work Phone: [facility] Comment on above: Possible pressure ul cers Start: 01-18-2022 Telephone encounter Alma A Queden TECHNICAL APPLICATIONS SCIENTIST.TAG MACHINE OPERATOR Work Phone: [facility] Comment on above: Electronic Communica tion; Forms Start: 01-04-2022 Refill Alma A Qued en TECHNICAL APPLICATIONS SCIENTIST.TAG MACHINE OPERATOR Work Phone: [facility] Comment on above: Refill Request Start: 01-02-2022 Refill Alma A Qued en TECHNICAL APPLICATIONS SCIENTIST.TAG MACHINE OPERATOR Work Phone: [facility] Comment on above: Refill Request Start: 12-30-2021 Refill Dana Reny Tril l TECHNICAL APPLICATIONS SCIENTIST.TAG MACHINE OPERATOR Work Phone: [facility] Comment on above: Refill Request Start: 12-07-2021 Telephone encounter Alma Rodriguezden TECHNICAL APPLICATIONS SCIENTIST.TAG MACHINE OPERATOR Work Phone: [facility] Comment on above: Electronic Communica tion Start: 12-06-2021 Telephone encounter Alma Rodriguezden TECHNICAL APPLICATIONS SCIENTIST.TAG MACHINE OPERATOR Work Phone: [facility] Comment on above: Results Start: 12-04-2021 ambulatory Alma Tiffani Qued en TECHNICAL APPLICATIONS SCIENTIST.TAG MACHINE OPERATOR Work Phone: [facility] Comment on above: Possible UTI Start: 12-04-2021 Telephone encounter Alma Rodriguezden TECHNICAL APPLICATIONS SCIENTIST.TAG MACHINE OPERATOR Work Phone: [facility] Comment on above: Electronic Communica tion Start: 12-02-2021 Refill Alma Tiffani Qued en TECHNICAL APPLICATIONS SCIENTIST.TAG MACHINE OPERATOR Work Phone: [facility] Comment on above: Refill Request Start: 12-01-2021 Telephone encounter Alma Rodriguezden TECHNICAL APPLICATIONS SCIENTIST.TAG MACHINE OPERATOR Work Phone: [facility] Comment on above: Forms (Trev Walter Verbal Order for prison 11/30/21) Start: 11-27-2021 Telephone encounter Alma Rodriguezden TECHNICAL APPLICATIONS SCIENTIST.TAG MACHINE OPERATOR Work Phone: [facility] Comment on above: Electronic Communica tion Start: 11-23-2021 End: 11-23-2021 Patient encounter procedure Alma Rodriguezden TECHNICAL APPLICATIONS SCIENTIST.TAG MACHINE OPERATOR Work Phone: [facility] Comment on above: Headaches due to old head trauma (Primary Dx); Essential hypertension; Chronic low back pain, unspecified back pain laterality, unspecified whether sciatica present; Insomnia, unspecified type; Essential tremor; Depression, unspecified depression type; Screening for colon cancer; Screening for diabetes mellitus; Screening for lipid disorders; Screening for deficiency anemia Start: 11-03-2021 Telephone encounter lAma Rodriguezden TECHNICAL APPLICATIONS SCIENTIST.TAG MACHINE OPERATOR Work Phone: [facility] Comment on above: Electronic Communica tion Start: 11-01-2021 Refill Alma Tiffani Qued en TECHNICAL APPLICATIONS SCIENTIST.TAG MACHINE OPERATOR Work Phone: [facility] Comment on above: Refill Request Start: 11-01-2021 Refill Alma A Qued en TECHNICAL APPLICATIONS SCIENTIST.TAG MACHINE OPERATOR Work Phone: [facility] Comment on above: Refill Request Start: 10-31-2021 Telephone encounter Alma A Queden TECHNICAL APPLICATIONS SCIENTIST.TAG MACHINE OPERATOR Work Phone: [facility] Comment on above: Electronic Communica tion Start: 10-30-2021 Refill Alma A Qued en TECHNICAL APPLICATIONS SCIENTIST.TAG MACHINE OPERATOR Work Phone: [facility] Comment on above: Refill Request Start: 10-26-2021 End: 10-26-2021 Nursing evaluation of patient and report Nurse Saniya Alarcon [place] Work Phone: [facility] Comment on above: Encounter for staple removal (Primary Dx) Start: 10-17-2021 ambulatory Alma A Qued en TECHNICAL APPLICATIONS SCIENTIST.TAG MACHINE OPERATOR Work Phone: [facility] Comment on above: ER F/U Start: 10-15-2021 End: 10-16-2021 Emergency department patient visit Richard Nieto [facility] Emergency 12 Start: 10-01-2021 Refill Alma A Qued en TECHNICAL APPLICATIONS SCIENTIST.TAG MACHINE OPERATOR Work Phone: [facility] Comment on above: Refill Request Start: 09-26-2021 Refill Alma A Qued en TECHNICAL APPLICATIONS SCIENTIST.TAG MACHINE OPERATOR Work Phone: [facility] Comment on above: Refill Request Start: 09-05-2021 Telephone encounter Alma A Queden TECHNICAL APPLICATIONS SCIENTIST.TAG MACHINE OPERATOR Work Phone: [facility] Comment on above: Electronic Communica tion Start: 09-01-2021 Refill Palak guzman MD Work Phone: [facility] Comment on above: Refill Request Start: 08-30-2021 Refill Nicolasa iqbal DO Work Phone: [facility] Comment on above: Refill Request Start: 08-29-2021 Telephone encounter Alma A Queden TECHNICAL APPLICATIONS SCIENTIST.TAG MACHINE OPERATOR Work Phone: [facility] Comment on above: Electronic Communica tion Start: 08-22-2021 Telephone encounter Alma Gill TECHNICAL APPLICATIONS SCIENTIST.TAG MACHINE OPERATOR Work Phone: [facility] Comment on above: Electronic Communica tion Start: 08-16-2021 Refill Palak guzman MD Work Phone: [facility] Comment on above: Refill Request Start: 07-05-2020 Patient encounter procedure Priya Rock [facility] [place] Work Phone: Start: 06-03-2020 Patient encounter procedure Priya Rock [facility] 300 Work Phone: Procedures Date Procedure Procedure Detail Performing Clinician Start: 11-11-2024 Co diffusing capacity Tru kaiser MD Work Phone: Start: 10-21-2024 Radex hand minimum 3 views Bear Perales i PA-C Work Phone: Start: 08-26-2024 Echo tthrc r-t 2d w/wom-mode compl spec&colr d Mitchell Caruso TECHNICAL APPLICATIONS SCIENTIST.TAG MACHINE OPERATOR Work Phone: Start: 08-24-2024 Lipid 1996 panel - Serum or Plasma Card/ Pulm [place] Start: 07-14-2024 COVID & INFLUENZA A/B & RSV PCR, ROUTINE Alma Gill TECHNICAL APPLICATIONS SCIENTIST.TAG MACHINE OPERATOR Work Phone: Start: 04-27-2024 Spmtry w/vc expiratory angela w/wo mxml vol vntj Tru Simon MD Work Phone: Start: 03-13-2024 Noninvasive ear/pulse oximetry multiple deter Lilian SHORE-C Work Phone: Start: 03-13-2024 Co diffusing capacity Francisco veliz MD Work Phone: Start: 11-29-2023 Colonoscopy flx dx w/collj spec when pfrmd Mone Robertson PA-C Work Phone: Start: 11-29-2023 Colonoscopy Rosemary Russell MD Work Phone: Start: 10-24-2023 Lipid 1996 panel - Serum or Plasma Toni Chacon TECHNICAL APPLICATIONS SCIENTIST.TAG MACHINE OPERATOR Work Phone: Start: 06-20-2023 Colonoscopy flx dx w/collj spec when pfrmd Mone Nickolas ROGER Work Phone: Start: 06-20-2023 Esophagogastroduodenoscopy transoral diagnostic Mone Robertson PA-C Work Phone: Start: 06-20-2023 Colonoscopy Nicolasa Montoya DO Work Phone: Start: 03-14-2023 Lipid 1996 panel - Serum or Plasma Kyara Rodríguez PA-C Work Phone: Start: 02-06-2023 Blood occult fecal hgb deter ia qual feces 1-3 Alma Gill TECHNICAL APPLICATIONS SCIENTIST.TAG MACHINE OPERATOR Work Phone: Start: 02-06-2023 Inf agent det nucleic acid clostridium amp probe Alma Gill TECHNICAL APPLICATIONS SCIENTIST.TAG MACHINE OPERATOR Work Phone: Start: 02-06-2023 Nfct agent dna/rna gastrointestinal pathogen Alma Gill TECHNICAL APPLICATIONS SCIENTIST.TAG MACHINE OPERATOR Work Phone: Start: 11-20-2022 Brncdilat rspse spmtry pre&post-brncdilat admn Francisco Patel MD Work Phone: Start: 11-08-2022 Radiologic exam chest 2 views Francisco Patel MD Work Phone: Start: 08-22-2022 Ct thorax w/contrast material Alma Gill TECHNICAL APPLICATIONS SCIENTIST.TAG MACHINE OPERATOR Work Phone: Start: 07-19-2022 Lipid 1996 panel - Serum or Plasma Corina Gill TECHNICAL APPLICATIONS SCIENTIST.TAG MACHINE OPERATOR Work Phone: Start: 06-19-2022 Myocardial spect multiple studies Paula Gill TECHNICAL APPLICATIONS SCIENTIST.[facility] Work Phone: Start: 06-04-2022 History of coronary artery bypass grafting S/P CABG x 4 Dedrick Krause DO Work Phone: Start: 02-20-2022 Echo tthrc r-t 2d w/wom-mode compl spec&colr d Alma Gill TECHNICAL APPLICATIONS SCIENTIST.TAG MACHINE OPERATOR Work Phone: Start: 02-19-2022 Urnls dip stick/tablet rgnt auto w/o microscopy Alma Gill TECHNICAL APPLICATIONS SCIENTIST.[facility] Work Phone: Start: 02-19-2022 Culture bacterial quanttative colony count urine Alma Gill APRN.[facility] Work Phone: Start: 02-08-2022 Ecg routine ecg w/least 12 lds trcg only w/o i&r [facility] Provider Start: 02-08-2022 Radiologic exam chest 2 views Alma Gill TAY.[facility] Work Phone: Start: 02-01-2022 INFLUENZA SEASONAL QUADRIVALENT HIGH DOSE AGE 65+ Alma Gill TAY.[facility] Work Phone: Start: 05-24-2020 Adult depression screening assessment Palak Snyder MD Work Phone: 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 Priya Rock Finger operation Priya Osorio er Operation on heart Priya marin Operative procedure on hip J noni Rock Procedure on back Priya Gallegos ier Plan of Treatment Date Care Activity Detail Author Start: 05-22-2030 Urine microalbumin profile [facility] Start: 08-24-2029 Lipid panel Lipid Screening [facility] Start: 10-23-2028 Lipid panel Lipid Screening [facility] Start: 03-14-2028 Lipid 1996 panel - Serum or Plasma Lipid Screening [facility] Start: 03-14-2028 Lipid panel Lipid Screening [facility] Start: 11-11-2027 Diabetes Screening Diabetes Screening [facility] Start: 11-03-2027 Diabetes Screening Diabetes Screening [facility] Start: 10-16-2027 Diabetes Screening Diabetes Screening [facility] Start: 10-15-2027 Diabetes Screening Diabetes Screening [facility] Start: 10-14-2027 Diabetes Screening Diabetes Screening [facility] Start: 10-13-2027 Diabetes Screening Diabetes Screening [facility] Start: 09-29-2027 Diabetes Screening Diabetes Screening [facility] Start: 09-22-2027 Diabetes Screening Diabetes Screening [facility] Start: 09-10-2027 Diabetes Screening Diabetes Screening [facility] Start: 08-25-2027 Diabetes Screening Diabetes Screening [facility] Start: 08-19-2027 Diabetes Screening Diabetes Screening [facility] Start: 08-11-2027 Diabetes Screening Diabetes Screening [facility] Start: 08-04-2027 Diabetes Screening Diabetes Screening [facility] Start: 07-28-2027 Diabetes Screening Diabetes Screening [facility] Start: 07-20-2027 Lipid 1996 panel - Serum or Plasma Lipid Screening [facility] Start: 07-20-2027 LIPID SCREEN LIPID SCREEN [facility] Start: 03-09-2027 Diabetes Screening Diabetes Screening [facility] Start: 02-01-2027 LIPID SCREEN LIPID SCREEN [facility] Start: 01-14-2027 Diabetes Screening Diabetes Screening [facility] Start: 01-13-2027 Diabetes Screening Diabetes Screening [facility] Start: 10-23-2026 Diabetes Screening Diabetes Screening [facility] Start: 03-14-2026 Diabetes Screening Diabetes Screening [facility] Start: 11-10-2025 Annual PCP Team Chronic Disease Visit Annual PCP Team Chronic Disease Visit [facility] Start: 11-08-2025 DIABETES SCREEN DIABETES SCREEN [facility] Start: 11-08-2025 Diabetes Screening Diabetes Screening [facility] Start: 08-24-2025 Hepatitis B surface antibody level LDL Cholesterol [facility] Start: 08-11-2025 DIABETES SCREEN DIABETES SCREEN [facility] Start: 07-19-2025 DIABETES SCREEN DIABETES SCREEN [facility] Start: 07-15-2025 LIPID SCREEN LIPID SCREEN [facility] Start: 07-15-2025 PROSTATE CANCER SCREENING DISCUSSION PROSTATE CANCER SCREENING DISCUSSION [facility] Start: 07-14-2025 Annual PCP Team Chronic Disease Visit Annual PCP Team Chronic Disease Visit [facility] Start: 07-14-2025 BP Controlled (<130/80) BP Controlled (<130/80) [facility] Start: 05-10-2025 End: 05-10-2025 Patient encounter procedure 05/10/2025 3:20 PM EST Office Visit Cardiology [address] [place], [place] [phone] Beatrice Sarmiento MD [address] [facility] [address] [place] [phone] 6 mo follow up Cardiology Comment on above: 6 mo follow up Start: 04-22-2025 BP Controlled (<130/80) BP Controlled (<130/80) [facility] Start: 03-30-2025 Annual PCP Team Chronic Disease Visit Annual PCP Team Chronic Disease Visit [facility] Start: 03-30-2025 BP Controlled (<130/80) BP Controlled (<130/80) [facility] Start: 03-30-2025 Covid-19 Vaccine () Covid-19 Vaccine () [facility] Comment on above: Postponed from 01/12/2024 (Declined at t his time) Start: 03-30-2025 Covid-19 Vaccine () Covid-19 Vaccine () [facility] Comment on above: Postponed from 05/25/2024 (Declined at t his time) Start: 03-30-2025 Covid-19 Vaccine (9 - Pfizer risk ) Covid-19 Vaccine (9 - Pfizer risk ) [facility] Comment on above: Postponed from 09/27/2024 (Declined at t his time) Start: 03-30-2025 Shingrix Vaccine (1 of 2) Shingrix Vaccine (1 of 2) [facility] Comment on above: Postponed from 2003 (Declined at t his time) Postponed from 06/21 (Declined at this time) Start: 03-15-2025 End: 03-15-2025 Patient encounter procedure 03/15/2025 2:00 PM EST Office Visit Podiatry [address] [place] [phone] Francesco Tobias [address] [place] [address] f/u Podiatry Comment on above: f/u Start: 03-13-2025 BP Controlled (<130/80) BP Controlled (<130/80) [facility] Start: 03-11-2025 End: 03-11-2025 Patient encounter procedure Podiatry Comment on above: 3 month follow up nail care 1st att r/s - MACK 01/11 0 Start: 03-02-2025 Annual PCP Team Chronic Disease Visit Annual PCP Team Chronic Disease Visit [facility] Start: 03-02-2025 BP Controlled (<130/80) BP Controlled (<130/80) [facility] Start: 02-17-2025 End: 02-17-2025 Patient encounter procedure Pulmonary Medicine Comment on above: Dx: Hypersensitivity pneumonitis (HCC) [ J67.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] 3 month follow up BC//Dx: Hypersensiti vity pneumonitis (HCC) [J67.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] Start: 02-11-2025 End: 12-11-2025 CT Chest WO contrast CT CHEST WO IVCON Radiology Routine Interstitial pulmonary disease (HCC) Expected: 02/11/2025, Expires: 12/11/2025 [facility] Work Phone: Comment on above: Expected: 02/11/2025, Expires: Start: 02-11-2025 End: 02-11-2025 Patient encounter procedure [facility] Comment on above: Dx: Interstitial pulmonary disease (HCC) [J84.9] 3 MTH F/U Start: 02-08-2025 DIABETES SCREEN DIABETES SCREEN [facility] Start: 02-02-2025 BP Controlled (<130/80) BP Controlled (<130/80) [facility] Start: 02-01-2025 DIABETES SCREEN DIABETES SCREEN [facility] Start: 01-28-2025 BP Controlled (<130/80) BP Controlled (<130/80) [facility] Start: 01-11-2025 Influenza vaccination Influenza Vaccine (#1) [facility] Start: 12-07-2024 End: 12-07-2024 Patient encounter procedure 12/07/2024 2:30 PM EDT Office Visit Podiatry [address] [place], [place] [phone] Francesco Tobias [address] [place], [place] [phone] 3 month follow up nail care Podiatry Comment on above: 3 month follow up nail care Start: 11-28-2024 Screening for malignant neoplasm of colon [facility] Start: 11-11-2024 End: 11-11-2024 Patient encounter procedure 11/11/2024 10:00 AM EDT Office Visit Pulmonary Medicine [address] [place], [place] [phone] Tru Simon MD [address] [phone] Return in about 7 weeks (around 11/09/2024). Pulmonary Medicine Comment on above: Return in about 7 weeks (around ). Start: 11-11-2024 End: 11-11-2024 ambulatory Pulmonary Medicine Comment on above: Hypersensitivity pneumonitis (HCC) [J67. 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]; Acute hypoxic respiratory failure (HCC) [J96.01]; Chronic obstructive pulmonary disease with acute exacerbation (HCC) [J44.1] Start: 11-10-2024 End: 11-10-2024 Patient encounter procedure 11/10/2024 3:20 PM EDT Office Visit [facility] [address] [place] [address] Alma Gill APRN.TAG MACHINE OPERATOR [address] [place] [address] TCM CC Walter D/C 10/16/24 - Sepsis, PNA [facility] Comment on above: TCM CC Walter D/C 10/16/24 - Sepsis, PNA Start: 10-29-2024 End: 10-29-2024 Patient encounter procedure Pulmonary Medicine Comment on above: Hospital follow up ?COPD//Hospital foll ow up Start: 10-23-2024 Hepatitis B surface antibody level LDL Cholesterol [facility] Start: 10-21-2024 End: 10-21-2024 Patient encounter procedure 10/21/2024 9:45 AM EDT Office Visit [facility] [address] [place] [address] Bear Hidalgo PA-C [address] [place] [address] right hand [facility] Comment on above: right hand Start: 10-14-2024 End: 10-14-2024 Patient encounter procedure 10/14/2024 10:45 AM EDT Office Visit [facility] [address] [place] [address] Bear Hidalgo PA-C [address] [place] [address] Rt hand/boxer fx [facility] Comment on above: Rt hand/boxer fx Start: 10-12-2024 End: 10-12-2024 Patient encounter procedure 10/12/2024 11:20 AM EDT Office Visit [facility] [address] [place] [place] [address] Alma Gill, TECHNICAL APPLICATIONS SCIENTIST.TAG MACHINE OPERATOR [address] [place], [place] [phone] follow up [facility] Comment on above: follow up Start: 09-23-2024 End: 09-23-2024 Patient encounter procedure 09/23/2024 2:30 PM EDT Office Visit [facility] [address] [place] [address] Sandra Hummel MD [address] [place] [address] Rt hand/boxer fx, PCP ref [facility] Comment on above: Rt hand/boxer fx, PCP ref Start: 09-23-2024 End: 09-23-2024 ambulatory Pulmonary Medicine Comment on above: Hypersensitivity pneumonitis (HCC) [J67. 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]; Acute hypoxic respiratory failure (HCC) [J96.01]; Chronic obstructive pulmonary disease with acute exacerbation (HCC) [J44.1] Start: 09-21-2024 Subsequent hospital visit by physician 09/21/2024 12:03 PM EDT Hospital En[facility] [address] [place] [address] Hand injury, right, initial encounter [S69.91XA] [facility] Comment on above: Hand injury, right, initial encounter [S 69.91XA] Start: 09-21-2024 End: 09-21-2024 Patient encounter procedure Pulmonary Medicine Comment on above: Return in about 3 months (around 09/22/19 25). Start: 09-08-2024 End: 10-08-2024 CT Chest WO contrast CT CHEST WO IVCON Radiology Routine Lung nodules Expected: 09/08/2024, Expires: 10/08/2024 [facility] Work Phone: Comment on above: Expected: 09/08/2024, Expires: Start: 09-02-2024 Annual PCP Team Chronic Disease Visit Annual PCP Team Chronic Disease Visit [facility] Start: 09-02-2024 BP Controlled (<130/80) BP Controlled (<130/80) [facility] Start: 08-28-2024 End: 08-28-2024 Patient encounter procedure Podiatry Comment on above: 3 month follow up (resched from 06/04) Start: 08-26-2024 End: 08-26-2024 Patient encounter procedure 08/26/2024 11:30 AM EDT Appointment [facility] [address] [place] [address] Echo [facility] Comment on above: Echo Start: 08-26-2024 Subsequent hospital visit by physician 08/26/2024 11:30 AM EDT Hospital Encounter [facility] [address] [place] [address] Pulmonary arterial hypertension (HCC) [I27.21] [facility] Comment on above: Pulmonary arterial hypertension (HCC) [I 27.21] Start: 08-17-2024 End: 11-16-2024 LIPID PANEL, NONFASTING LIPID PANEL, NONFASTING Lab Routine Mixed hyperlipidemia Expected: 08/17/2024, Expires: 11/16/2024 [facility] Work Phone: Comment on above: Expected: 08/17/2024, Expires: Start: 08-17-2024 End: 08-17-2024 Patient encounter procedure Cardiology Comment on above: 6 month check Start: 08-03-2024 End: 08-03-2024 Patient encounter procedure 08/03/2024 1:00 PM EDT Office Visit [facility] [address] [place] [address] Alma Gill, TECHNICAL APPLICATIONS SCIENTIST.TAG MACHINE OPERATOR [address] [place] [address] Follow up [facility] Comment on above: Follow up Start: 07-17-2024 End: 07-17-2024 Patient encounter procedure 07/17/2024 2:40 PM EST Office Visit Podiatry [address] [place] [address] Francesco Tobias [address] [address] 3 month follow up (resched from 06/04) Podiatry Comment on above: 3 month follow up (resched from 06/04) Start: 07-16-2024 End: 07-16-2024 Patient encounter procedure 07/16/2024 2:00 PM EST Appointment [facility] [address] [place] [phone] Interstitial pulmonary disease (HCC) [J84.9] [facility] Comment on above: Interstitial pulmonary disease (HCC) [J8 4.9] Start: 07-14-2024 End: 07-14-2024 Patient encounter procedure 07/14/2024 4:40 PM EST Office Visit [address] [address] Alma Gill APRN.TAG MACHINE OPERATOR [address] [place] [id number] follow up /swab for covid/flu for CT on [facility] Comment on above: follow up /swab for covid/flu for CT on Start: 07-13-2024 End: 07-13-2024 Patient encounter procedure 07/13/2024 10:30 AM EST Office Visit Pulmonary Medicine [address] [place], [place] [phone] Francisco Patel MD [address] [facility] [place] [address] 3 month follow up Pulmonary Medicine Comment on above: 3 month follow up Start: 06-30-2024 End: 06-30-2024 Patient encounter procedure 06/30/2024 4:00 PM EST Office Visit [address] [address] Alma Gill TECHNICAL APPLICATIONS SCIENTIST.TAG MACHINE OPERATOR [address] [place] [phone] follow up [facility] Comment on above: follow up Start: 06-24-2024 End: 06-24-2024 Patient encounter procedure 06/24/2024 2:00 PM EST Office Visit Pulmonary Medicine [address] [address] Tru Simon MD [address] [place] [phone] 1 month followup Pulmonary Medicine Comment on above: 1 month followup Start: 06-20-2024 Screening for malignant neoplasm of colon [facility] Start: 06-04-2024 End: 06-04-2024 Patient encounter procedure Podiatry Comment on above: 3 month follow up Start: 06-03-2024 End: 06-03-2024 Patient encounter procedure 06/03/2024 2:00 PM EST Office Visit Pulmonary Medicine [address] [address] Tru Simon MD [address] [place] [phone] 1 month followup Pulmonary Medicine Comment on above: 1 month followup Start: 05-13-2024 Advance Directive Discussion Advance Directive Discussion [facility] Start: 04-27-2024 End: 04-27-2024 ambulatory [facility] Comment on above: Chronic respiratory failure with hypoxia (HCC) [J96.11] Start: 04-22-2024 End: 04-22-2024 Patient encounter procedure 04/22/2024 2:00 PM EST Office Visit Pulmonary Medicine [address] [address] Tru Simon MD [address] [place] [phone] ILD Pulmonary Medicine Comment on above: ILD Start: 04-15-2024 BP Controlled (<130/80) BP Controlled (<130/80) [facility] Start: 03-30-2024 End: 03-30-2024 Patient encounter procedure 03/30/2024 11:20 AM EST Office Visit [facility] [address] [place] [address] Alma Gill TECHNICAL APPLICATIONS SCIENTIST.TAG MACHINE OPERATOR [address] [place] [address] Return in about 4 weeks (around 03/30/2024) [facility] Comment on above: Return in about 4 weeks (around 03/30/20 24) Start: 03-27-2024 End: 06-26-2024 Hepatic function 2000 panel - Serum or Plasma HEPATIC FUNCTION PNL Lab Routine Idiopathic pulmonary fibrosis (HCC) Expected: 03/27/2024, Expires: 06/26/2024 [facility] Work Phone: Comment on above: Expected: 03/27/2024, Expires: Start: 03-27-2024 End: 03-27-2024 Patient encounter procedure 03/27/2024 2:00 PM EST Office Visit Pulmonary Medicine [address] [place] [address] Mitchell Caruso, TAY.TAG MACHINE OPERATOR [address] [facility] [address] [place] [address] 2 wk follow up Pulmonary Medicine Comment on above: 2 wk follow up Start: 03-14-2024 Hepatitis B surface antibody level LDL Cholesterol [facility] Start: 03-13-2024 End: 03-13-2025 Cyclic citrullinated peptide IgG Ab [Units/volume] in Serum or Plasma [facility] Comment on above: Expected: 03/13/2024, Expires: Start: 03-13-2024 End: 03-13-2025 Erythrocyte sedimentation rate [facility] Comment on above: Expected: 03/13/2024, Expires: Start: 03-13-2024 End: 03-13-2025 Extractable nuclear Ab panel - Serum [facility] Comment on above: Expected: 03/13/2024, Expires: Start: 03-13-2024 End: 03-13-2025 HYPERSEN PNEUMON AB [facility] Comment on above: Expected: 03/13/2024, Expires: Start: 03-13-2024 End: 03-13-2025 Nuclear Ab [Presence] in Serum by Immunoassay [facility] Work Phone: Comment on above: Expected: 03/13/2024, Expires: Start: 03-13-2024 End: 03-13-2024 Patient encounter procedure 03/13/2024 2:00 PM EDT Office Visit Pulmonary Medicine [address] [place] [address] Mitchell Caruso TECHNICAL APPLICATIONS SCIENTIST.TAG MACHINE OPERATOR [address] [place] [address] 1 wk f/u- review CT *03/09/24 Pulmonary Medicine Comment on above: 1 wk f/u- review CT *03/09/24 Start: 03-13-2024 End: 03-13-2024 ambulatory PULM LAB [facility] Comment on above: Interstitial pulmonary disease (HCC) [J8 4.9 Start: 03-09-2024 End: 02-27-2025 CT Chest WO contrast [facility] Work Phone: Comment on above: Expected: 03/09/2024, Expires: Start: 03-09-2024 End: 03-09-2024 Patient encounter procedure 03/09/2024 2:00 PM EDT Appointment [facility] [address] [place], [place] [id number] Interstitial pulmonary disease (HCC) [J84.9] [facility] Comment on above: Interstitial pulmonary disease (HCC) [J8 4.9] Start: 03-02-2024 End: 03-02-2024 Patient encounter procedure 03/02/2024 3:20 PM EDT Office Visit [facility] [address] [place], [place] [phone] Alma Gill, TECHNICAL APPLICATIONS SCIENTIST.TAG MACHINE OPERATOR [address] [place] [address] [facility] 01/15 [facility] Comment on above: [facility] 01/15 Start: 03-02-2024 End: 06-01-2024 Basic metabolic 2000 panel - Serum or Plasma BASIC METABOLIC PANEL Lab Routine Hyponatremia Expected: 03/02/2024, Expires: 06/01/2024 [facility] Work Phone: Comment on above: Expected: 03/02/2024, Expires: Start: 03-02-2024 End: 06-01-2024 Natriuretic peptide.B prohormone N-Terminal [Mass/volume] in Serum or Plasma NT PRO BNP Lab Routine Chronic diastolic congestive heart failure (HCC) Expected: 03/02/2024, Expires: 06/01/2024 [facility] Comment on above: Expected: 03/02/2024, Expires: Start: 02-27-2024 End: 02-27-2024 Patient encounter procedure 02/27/2024 2:00 PM EDT Office Visit Podiatry [address] [place], [place] [phone] Francesco Tobias [address] [place], [place] [address] follow up to L foot 2nd toe sore also trim nails if posible Podiatry Comment on above: follow up to L foot 2nd toe sore also tr im nails if posible Start: 02-07-2024 Colorectal Cancer Screening Colorectal Cancer Screening [facility] Start: 02-07-2024 Fecal Occult Blood Fecal Occult Blood [facility] Start: 02-07-2024 Screening for malignant neoplasm of colon [facility] Start: 02-03-2024 End: 02-03-2024 Patient encounter procedure 02/03/2024 4:20 PM EDT Office Visit Cardiology [address] [place] [phone] Beatrice Sarmiento MD [address] [place] [address] [place], [place] [phone] 6 month follow up Cardiology Comment on above: 6 month follow up Start: 02-03-2024 End: 05-04-2024 Basic metabolic 2000 panel - Serum or Plasma BASIC METABOLIC PANEL Lab Routine 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) Chronic diastolic congestive heart failure (HCC) Expected: 02/03/2024, Expires: 05/04/2024 [facility] Comment on above: Expected: 02/03/2024, Expires: Start: 02-03-2024 End: 05-04-2024 Natriuretic peptide.B prohormone N-Terminal [Mass/volume] in Serum or Plasma NT PRO BNP Lab Routine Chronic diastolic congestive heart failure (HCC) Expected: 02/03/2024, Expires: 05/04/2024 [facility] Work Phone: Comment on above: Expected: 02/03/2024, Expires: Start: 01-18-2024 DIABETES SCREEN DIABETES SCREEN [facility] Start: 01-12-2024 Covid-19 Vaccine ( season) Covid-19 Vaccine () [facility] Start: 01-12-2024 Covid-19 Vaccine ( season) Covid-19 Vaccine () [facility] Start: 01-12-2024 Influenza vaccination Influenza Vaccine (#1) [facility] Start: 11-29-2023 End: 11-29-2023 Patient encounter procedure [facility] Comment on above: colon Start: 11-29-2023 End: 11-29-2023 Patient encounter procedure 11/29/2023 8:15 AM EDT Appointment [facility] [address] [place] [address] Rosemary Russell MD [address] [place] [phone] Buddy Gallegos APRN.COLOR SHOP HELPER [address] [place] [address] Bradly Dumont MD [address] [place] [address] colon [facility] Comment on above: colon Start: 11-21-2023 BP CONTROLLED (<130/80) BP CONTROLLED (<130/80) [facility] Start: 11-21-2023 End: 11-21-2023 Patient encounter procedure 11/21/2023 10:15 AM EDT Office Visit Podiatry [address] [place] [address] Francesco Tobias [address] [place] [address] consult L foot 2nd toe sore also trim nails if posible Podiatry Comment on above: consult L foot 2nd toe sore also trim na ils if posible Start: 11-09-2023 BP CONTROLLED (<130/80) BP CONTROLLED (<130/80) [facility] Start: 10-24-2023 Covid-19 Vaccine () Covid-19 Vaccine () [facility] Start: 10-24-2023 End: 10-24-2023 Patient encounter procedure 10/24/2023 1:15 PM EDT Office Visit Pulmonary Medicine [address] [place] [address] Francisco Patel MD [address] [place] [address] six month follow up Pulmonary Medicine Comment on above: six month follow up Start: 10-22-2023 End: 07-13-2024 Comprehensive metabolic 2000 panel - Serum or Plasma COMP METABOLIC PANEL Lab Routine 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) Mixed hyperlipidemia Expected: 10/22/2023, Expires: 07/13/2024 [facility] Work Phone: Comment on above: Expected: 10/22/2023, Expires: Start: 10-22-2023 End: 07-13-2024 Lipid 1996 panel - Serum or Plasma LIPID PANEL BASIC Lab Routine Mixed hyperlipidemia Expected: 10/22/2023, Expires: 07/13/2024 [facility] Work Phone: Comment on above: Expected: 10/22/2023, Expires: Start: 10-18-2023 End: 10-18-2023 Patient encounter procedure 10/18/2023 1:30 PM EDT Appointment [facility] [address] [place] [address] David Lee MD [address] [facility] [address] [place], [place] [address] colon [facility] Comment on above: colon Start: 10-15-2023 End: 10-15-2023 Patient encounter procedure Vasculary Surgery Comment on above: PVR Start: 09-14-2023 ANNUAL PCP TEAM CHRONIC DISEASE VISIT ANNUAL PCP TEAM CHRONIC DISEASE VISIT [facility] Start: 09-14-2023 BP CONTROLLED (<130/80) BP CONTROLLED (<130/80) [facility] Start: 09-09-2023 End: 09-09-2023 Patient encounter procedure 09/09/2023 11:45 AM EDT Office Visit Pulmonary Medicine [address] [place] [address] Francisco Patel MD [address] [place], [place] [phone] 6 MONTH FOLLOW UP Pulmonary Medicine Comment on above: 6 MONTH FOLLOW UP Start: 08-22-2023 ANNUAL PCP TEAM CHRONIC DISEASE VISIT ANNUAL PCP TEAM CHRONIC DISEASE VISIT [facility] Start: 08-22-2023 BP CONTROLLED (<130/80) BP CONTROLLED (<130/80) [facility] Start: 07-20-2023 Hepatitis B surface antibody level LDL CHOLESTEROL [facility] Start: 06-04-2023 BP CONTROLLED (<130/80) BP CONTROLLED (<130/80) [facility] Start: 05-16-2023 End: 05-14-2024 Ct thorax w/o contrast material CT CHEST WO IVCON Radiology Routine Lung nodules Expected: 05/16/2023, Expires: 05/14/2024 [facility] Work Phone: Comment on above: Expected: 05/16/2023, Expires: Start: 05-13-2023 Advance Directive Discussion Advance Directive Discussion [facility] Start: 04-11-2023 Covid-19 Vaccine () Covid-19 Vaccine () [facility] Start: 03-04-2023 End: 06-03-2023 Alpha 1 antitrypsin [Mass/volume] in Serum or Plasma [id number] Lab Routine 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) Expected: 03/04/2023, Expires: 06/03/2023 [facility] Work Phone: Comment on above: Expected: 03/04/2023, Expires: 4 Start: 03-04-2023 End: 06-03-2023 Natriuretic peptide.B prohormone N-Terminal [Mass/volume] in Serum or Plasma NT PRO BNP Lab Routine Dyspnea, unspecified type Expected: 03/04/2023, Expires: 06/03/2023 [facility] Work Phone: Comment on above: Expected: 03/04/2023, Expires: 4 Start: 02-19-2023 ANNUAL PCP TEAM CHRONIC DISEASE VISIT ANNUAL PCP TEAM CHRONIC DISEASE VISIT [facility] Start: 02-19-2023 BP CONTROLLED (<130/80) BP CONTROLLED (<130/80) [facility] Start: 02-08-2023 ANNUAL PCP TEAM CHRONIC DISEASE VISIT ANNUAL PCP TEAM CHRONIC DISEASE VISIT [facility] Start: 02-08-2023 BP CONTROLLED (<130/80) BP CONTROLLED (<130/80) [facility] Start: 02-05-2023 End: 04-07-2023 CBC panel - Blood by Automated count CBC Lab Routine Melena Expected: 02/05/2023, Expires: 04/07/2023 [facility] Work Phone: Comment on above: Expected: 02/05/2023, Expires: 3 Start: 02-01-2023 ANNUAL PCP TEAM CHRONIC DISEASE VISIT ANNUAL PCP TEAM CHRONIC DISEASE VISIT [facility] Start: 02-01-2023 BP CONTROLLED (<130/80) BP CONTROLLED (<130/80) [facility] Start: 02-01-2023 Hepatitis B surface antibody level LDL CHOLESTEROL [facility] Start: 01-11-2023 Influenza vaccination [facility] Start: 12-10-2022 End: 12-20-2023 Ct thorax w/o contrast material [facility] Work Phone: Comment on above: Expected: 12/10/2022, Expires: 4 Start: 11-23-2022 ANNUAL PCP TEAM CHRONIC DISEASE VISIT ANNUAL PCP TEAM CHRONIC DISEASE VISIT [facility] Start: 11-23-2022 BP CONTROLLED (<130/80) BP CONTROLLED (<130/80) [facility] Start: 10-26-2022 BP CONTROLLED (<130/80) BP CONTROLLED (<130/80) [facility] Start: 07-10-2022 COVID-19 VACCINE (6 - Pfizer series) COVID-19 VACCINE (6 - Pfizer series) [facility] Start: 07-05-2022 End: 09-04-2022 CBC panel - Blood by Automated count CBC Lab Routine 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) Expected: 07/05/2022, Expires: 09/04/2022 [facility] Work Phone: Comment on above: Expected: 07/05/2022, Expires: 3 Start: 07-05-2022 End: 09-04-2022 Comprehensive metabolic 2000 panel - Serum or Plasma COMP METABOLIC PANEL Lab Routine 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) Expected: 07/05/2022, Expires: 09/04/2022 [facility] Work Phone: Comment on above: Expected: 07/05/2022, Expires: 3 Start: 07-05-2022 End: 09-04-2022 Lipid 1996 panel - Serum or Plasma LIPID PANEL BASIC Lab Routine 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) Expected: 07/05/2022, Expires: 09/04/2022 [facility] Work Phone: Comment on above: Expected: 07/05/2022, Expires: 3 Start: 07-05-2022 End: 09-04-2022 Magnesium [Mass/volume] in Serum or Plasma MAGNESIUM BLD Lab Routine 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) Expected: 07/05/2022, Expires: 09/04/2022 [facility] Work Phone: Comment on above: Expected: 07/05/2022, Expires: 3 Start: 05-23-2022 ABDOMINAL AORTIC ANEURYSM SCREENING ABDOMINAL AORTIC ANEURYSM SCREENING [facility] Comment on above: Postponed from 1955 (Declined at t his time) Start: 05-23-2022 ANNUAL PCP TEAM CHRONIC DISEASE VISIT ANNUAL PCP TEAM CHRONIC DISEASE VISIT [facility] Start: 05-23-2022 BP CONTROLLED (<130/80) BP CONTROLLED (<130/80) [facility] Start: 05-23-2022 PNEUMOCOCCAL: 65+ (2 - PCV) PNEUMOCOCCAL: 65+ (2 - PCV) [facility] Start: 05-13-2022 ADVANCE DIRECTIVE DISCUSSION ADVANCE DIRECTIVE DISCUSSION [facility] Start: 02-01-2022 End: 04-03-2022 Hepatitis A virus IgM Ab [Presence] in Serum [facility] Work Phone: Comment on above: Expected: 02/01/2022, Expires: 2 Start: 02-01-2022 End: 04-03-2022 Hepatitis B virus core IgM Ab [Presence] in Serum [facility] Work Phone: Comment on above: Expected: 02/01/2022, Expires: 2 Start: 02-01-2022 End: 04-03-2022 Hepatitis B virus surface Ab [Presence] in Serum by Immunoassay [facility] Work Phone: Comment on above: Expected: 02/01/2022, Expires: 2 Start: 01-25-2022 End: 03-27-2022 Urinalysis complete panel - Urine URINALYSIS, WITH MICROSCOPIC Lab Routine Recurrent UTI (urinary tract infection) Expected: 01/25/2022, Expires: 03/27/2022 [facility] Work Phone: Comment on above: Expected: 01/25/2022, Expires: 2 Start: 01-11-2022 Influenza vaccination INFLUENZA (#1) [facility] Start: 12-04-2021 End: 02-03-2022 Urinalysis complete panel - Urine UA WITH CULTURE IF INDICATED Lab Routine UTI symptoms Expected: 12/04/2021, Expires: 02/03/2022 [facility] Work Phone: Comment on above: Expected: 12/04/2021, Expires: 2 Start: 11-23-2021 End: 01-23-2022 CBC W Auto Differential panel - Blood CBC + DIFF Lab Routine Screening for deficiency anemia Expected: 11/23/2021, Expires: 01/23/2022 [facility] Work Phone: Comment on above: Expected: 11/23/2021, Expires: 2 Start: 11-23-2021 End: 01-23-2022 Cobalamin (Vitamin B12) [Mass/volume] in Serum or Plasma VITAMIN B12 BLOOD Lab Routine Headaches due to old head trauma Essential tremor Expected: 11/23/2021, Expires: 01/23/2022 [facility] Work Phone: Comment on above: Expected: 11/23/2021, Expires: 2 Start: 11-23-2021 End: 01-23-2022 Comprehensive metabolic 2000 panel - Serum or Plasma COMP METABOLIC PANEL Lab Routine Screening for diabetes mellitus Expected: 11/23/2021, Expires: 01/23/2022 [facility] Work Phone: Comment on above: Expected: 11/23/2021, Expires: 2 Start: 11-23-2021 End: 01-23-2022 Lipid 1996 panel - Serum or Plasma LIPID PANEL BASIC Lab Routine Screening for lipid disorders Expected: 11/23/2021, Expires: 01/23/2022 [facility] Work Phone: Comment on above: Expected: 11/23/2021, Expires: 2 Start: 11-23-2021 End: 01-23-2022 Magnesium [Mass/volume] in Serum or Plasma MAGNESIUM BLD Lab Routine Headaches due to old head trauma Essential tremor Expected: 11/23/2021, Expires: 01/23/2022 [facility] Work Phone: Comment on above: Expected: 11/23/2021, Expires: 2 Start: 11-04-2021 COVID-19 VACCINE (5 - Booster for Pfizer series) COVID-19 VACCINE (5 - Booster for Pfizer series) [facility] Start: 07-15-2021 Hepatitis B surface antibody level LDL CHOLESTEROL [facility] Start: 06-27-2021 COVID-19 VACCINE (4 - Booster for Pfizer series) COVID-19 VACCINE (4 - Booster for Pfizer series) [facility] Start: 05-24-2021 Adult depression screening assessment DEPRESSION SCREENING [facility] Start: 05-13-2021 ADVANCE DIRECTIVE DISCUSSION ADVANCE DIRECTIVE DISCUSSION [facility] Start: 2013 RSV Vaccine (1 - 1-dose 60+ series) RSV Vaccine (1 - 1-dose 60+ series) [facility] Start: 2003 SHINGRIX VACCINE (1 of 2) SHINGRIX VACCINE (1 of 2) [facility] Start: 07-11-2001 Medicare Annual Wellness Visit Medicare Annual Wellness Visit [facility] Start: 1998 COLOGUARD (FIT-DNA) COLOGUARD (FIT-DNA) [facility] Start: 1998 Colonoscopy COLONOSCOPY [facility] Start: 1998 COLORECTAL CANCER SCREENING COLORECTAL CANCER SCREENING [facility] Start: [address] COLONOGRAPHY [facility] Start: 1998 FECAL OCCULT BLOOD FECAL OCCULT BLOOD [facility] Start: 1998 Screening for malignant neoplasm of colon [facility] Start: 1998 SIGMOIDOSCOPY SIGMOIDOSCOPY [facility] Start: 1983 Zoledronic acid therapy ALPHA-1 ANTITRYPSIN DEFICIENCY SCREENING [facility] Start: 1971 BP CONTROLLED (<130/80) BP CONTROLLED (<130/80) [facility] Start: 1953 ABDOMINAL AORTIC ANEURYSM SCREENING ABDOMINAL AORTIC ANEURYSM SCREENING [facility] Start: 1953 Abdominal aortic aneurysm screening Abdominal Aortic Aneurysm Screening [facility] Application cast osorio d & lower forearm gauntlet APPLY HAND/WRIST CAST Procedures Routine Closed boxer's fracture, initial encounter Ordered: 10/06/2024 [facility] Work Phone: Comment on above: Ordered: 10/06/2024 End: 09-30-2025 CBC panel - Blood by Automated count COMPLETE BLOOD COUNT Lab Routine Acute hypoxic respiratory failure (HCC) Hypersensitivity pneumonitis (HCC) Every other week for 8 Occurrences starting 09/30/2024 until 09/30/2025 [facility] Work Phone: Comment on above: Every other week for 8 Occurrences start ing 09/30/2024 until 09/30/2025 End: 07-14-2025 CBC W Auto Differential panel - Blood COMPLETE BLOOD COUNT AND DIFFERENTIAL Lab Routine ILD (interstitial lung disease) (HCC) Once per week for 4 Occurrences starting 07/14/2024 until 07/14/2025 [facility] Comment on above: Once per week for 4 Occurrences starting 07/14/2024 until 07/14/2025 Clostridioides diffi cile toxin genes [Presence] in Stool by EVELIO with probe detection C. DIFFICILE PCR Lab Routine Diarrhea, unspecified type Ordered: 09/11/2023 [facility] Comment on above: Ordered: 09/11/2023 End: 07-14-2025 Comprehensive metabolic 2000 panel - Serum or Plasma COMPREHENSIVE METABOLIC PANEL Lab Routine ILD (interstitial lung disease) (HCC) Once per week for 4 Occurrences starting 07/14/2024 until 07/14/2025 [facility] Work Phone: Comment on above: Once per week for 4 Occurrences starting 07/14/2024 until 07/14/2025 End: 09-30-2025 Comprehensive metabolic 2000 panel - Serum or Plasma COMPREHENSIVE METABOLIC PANEL Lab Routine Acute hypoxic respiratory failure (HCC) Hypersensitivity pneumonitis (HCC) Every other week for 8 Occurrences starting 09/30/2024 until 09/30/2025 [facility] Comment on above: Every other week for 8 Occurrences start ing 09/30/2024 until 09/30/2025 COVID & INFLUENZA A/ B & RSV PCR, ROUTINE COVID & INFLUENZA A/B & RSV PCR, ROUTINE Microbiology Routine Interstitial pulmonary disease (HCC) Wheezing Acute on chronic hypoxic respiratory failure (HCC) Ordered: 07/13/2024 [facility] Work Phone: Comment on above: Ordered: 07/13/2024 End: 08-12-2025 CT Chest WO contrast CT CHEST WO IVCON Radiology Routine Interstitial pulmonary disease (HCC) Wheezing Acute on chronic hypoxic respiratory failure (HCC) 1 Occurrences starting 07/13/2024 until 08/12/2025 [facility] Comment on above: 1 Occurrences starting 07/13/2024 until 08/12/2025 CT Chest WO contrast CT CHEST WO IVCON Radiology Routine Interstitial pulmonary disease (HCC) Wheezing Acute on chronic hypoxic respiratory failure (HCC) 07/16/2024 2:21 PM EST [facility] Work Phone: End: 02-01-2023 ECG COMPLETE ECG COMPLETE ECG Routine Chest pain, unspecified type 1 Occurrences starting 02/01/2022 until 02/01/2023 [facility] Work Phone: Comment on above: 1 Occurrences starting 02/01/2022 until 02/01/2023 End: 02-12-2023 Echocardiography ECHO Cardiology Routine Chest pain, unspecified type Chronic congestive heart failure, unspecified heart failure type (HCC) SOB (shortness of breath) on exertion 1 Occurrences starting 02/12/2022 until 02/12/2023 [facility] Work Phone: Comment on above: 1 Occurrences starting 02/12/2022 until 02/12/2023 End: 03-27-2025 Echocardiography ECHO Cardiology Routine Pulmonary arterial hypertension (HCC) 1 Occurrences starting 03/27/2024 until 03/27/2025 [facility] Comment on above: 1 Occurrences starting 03/27/2024 until 03/27/2025 End: 04-23-2024 EGD DIAGNOSTIC EGD DIAGNOSTIC Endoscopy Routine Chronic GERD Melena 1 Occurrences starting 04/23/2023 until 04/23/2024 [facility] Work Phone: Comment on above: 1 Occurrences starting 04/23/2023 until 04/23/2024 Electrocardiogram EKG BIC Routin e 02/08/2022 4:17 PM EDT [facility] ENTERIC BACTERIAL PA SANTI BY PCR ENTERIC BACTERIAL PANEL BY PCR Lab Routine Diarrhea, unspecified type Ordered: 09/11/2023 [facility] Comment on above: Ordered: 09/11/2023 Im adm prq id subq/i m njxs 1 vaccine IMADM PRQ ID SUBQ/IM [id number] 1 VACC Immunization/Injection Routine Encounter for immunization Ordered: 02/01/2022 [facility] Work Phone: Comment on above: Ordered: 02/01/2022 Im adm prq id subq/i m njxs 1 vaccine IMADM PRQ ID SUBQ/IM NJXS 1 VACC Immunization/Injection Routine Encounter for immunization Ordered: 03/30/2024 [facility] Work Phone: Comment on above: Ordered: 03/30/2024 End: 10-08-2024 LUNG DIFFUSION CAPACITY (DLCO) LUNG DIFFUSION CAPACITY (DLCO) PFT Routine ILD (interstitial lung disease) (HCC) 1 Occurrences starting 09/09/2023 until 10/08/2024 [facility] Comment on above: 1 Occurrences starting 09/09/2023 until 10/08/2024 End: 05-22-2025 LUNG DIFFUSION CAPACITY (DLCO) LUNG DIFFUSION CAPACITY (DLCO) PFT Routine Chronic respiratory failure with hypoxia (HCC) 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) Hypersensitivity pneumonitis (HCC) 1 Occurrences starting 04/22/2024 until 05/22/2025 [facility] Comment on above: 1 Occurrences starting 04/22/2024 until 05/22/2025 End: 07-24-2025 LUNG DIFFUSION CAPACITY (DLCO) LUNG DIFFUSION CAPACITY (DLCO) PFT Routine Hypersensitivity pneumonitis (HCC) Chronic respiratory failure with hypoxia (HCC) 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) Acute hypoxic respiratory failure (HCC) Chronic obstructive pulmonary disease with acute exacerbation (HCC) 1 Occurrences starting 06/24/2024 until 07/24/2025 [facility] Comment on above: 1 Occurrences starting 06/24/2024 until 07/24/2025 End: 12-11-2025 LUNG DIFFUSION CAPACITY (DLCO) LUNG DIFFUSION CAPACITY (DLCO) PFT Routine Hypersensitivity pneumonitis (HCC) Chronic respiratory failure with hypoxia (HCC) 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) 1 Occurrences starting 11/11/2024 until 12/11/2025 [facility] Comment on above: 1 Occurrences starting 11/11/2024 until 12/11/2025 End: 10-08-2024 LUNG VOLUMES LUNG VOLUMES PFT Routine ILD (interstitial lung disease) (HCC) 1 Occurrences starting 09/09/2023 until 10/08/2024 [facility] Comment on above: 1 Occurrences starting 09/09/2023 until 10/08/2024 End: 03-14-2023 NM CARDIAC PERF STRESS/PHARM NM CARDIAC PERF STRESS/PHARM Radiology Routine Chest pain, unspecified type SOB (shortness of breath) on exertion 1 Occurrences starting 02/12/2022 until 03/14/2023 [facility] Work Phone: Comment on above: 1 Occurrences starting 02/12/2022 until 03/14/2023 NM CARDIAC PERF STRESS/PHARM NM CARDIAC PERF STRESS/PHARM Radiology Routine Chest pain, unspecified type SOB (shortness of breath) on exertion 06/19/2022 11:35 AM EST [facility] Work Phone: Ova and parasites identified in Unspecified specimen by Light microscopy OVA + PARA MICROSCOPIC Microbiology Routine Diarrhea, unspecified type Ordered: 09/11/2023 [facility] Work Phone: Comment on above: Ordered: 09/11/2023 OXIMETRY - NOCTURNAL OXIMETRY - NOCTURNAL Procedures Routine Chronic hypoxemic respiratory failure (HCC) Ordered: 03/27/2024 [facility] Comment on above: Ordered: 03/27/2024 OXIMETRY - NOCTURNAL OXIMETRY - NOCTURNAL Procedures Routine Chronic respiratory failure with hypoxia (HCC) Ordered: 04/22/2024 [facility] Work Phone: Comment on above: Ordered: 04/22/2024 End: 02-27-2025 OXIMETRY WITH AMBULATION OXIMETRY WITH AMBULATION PFT Routine Interstitial pulmonary disease (HCC) 1 Occurrences starting 01/29/2024 until 02/27/2025 [facility] Comment on above: 1 Occurrences starting 01/29/2024 until 02/27/2025 Removal impacted cer umen irrigation/lvg unilat AMBULATORY EAR LAVAGE/IRRIGATION Procedures Routine Bilateral impacted cerumen Ordered: 09/03/2023 [facility] Work Phone: Comment on above: Ordered: 09/03/2023 End: 04-23-2024 Screening colonoscopy COLONOSCOPY SCREENING Endoscopy Routine Screening for colon cancer 1 Occurrences starting 04/23/2023 until 04/23/2024 [facility] Work Phone: Comment on above: 1 Occurrences starting 04/23/2023 until 04/23/2024 End: 06-27-2024 Screening colonoscopy COLONOSCOPY SCREENING Endoscopy Routine Screening for colon cancer 1 Occurrences starting 06/27/2023 until 06/27/2024 [facility] Work Phone: Comment on above: 1 Occurrences starting 06/27/2023 until 06/27/2024 End: 05-22-2025 SPIROMETRY BASELINE ONLY SPIROMETRY BASELINE ONLY PFT Routine Chronic respiratory failure with hypoxia (HCC) 1 Occurrences starting 04/22/2024 until 05/22/2025 [facility] Comment on above: 1 Occurrences starting 04/22/2024 until 05/22/2025 End: 07-24-2025 SPIROMETRY BASELINE ONLY SPIROMETRY BASELINE ONLY PFT Routine Hypersensitivity pneumonitis (HCC) Chronic respiratory failure with hypoxia (HCC) 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) Acute hypoxic respiratory failure (HCC) Chronic obstructive pulmonary disease with acute exacerbation (HCC) 1 Occurrences starting 06/24/2024 until 07/24/2025 [facility] Work Phone: Comment on above: 1 Occurrences starting 06/24/2024 until 07/24/2025 End: 12-11-2025 SPIROMETRY BASELINE ONLY SPIROMETRY BASELINE ONLY PFT Routine Hypersensitivity pneumonitis (HCC) Chronic respiratory failure with hypoxia (HCC) 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) 1 Occurrences starting 11/11/2024 until 12/11/2025 [facility] Comment on above: 1 Occurrences starting 11/11/2024 until 12/11/2025 SURGICAL PATHOLOGY [facility] Work Phone: Comment on above: Release Upon Ordering for 1 Occurrences starting 06/20/2023, 1 completed UA DIP, URINE (POC) UA DIP, URIN E (POC) Lab Routine Dysuria Ordered: 02/19/2022 [facility] Work Phone: Comment on above: Ordered: 02/19/2022 End: 04-16-2024 US CAROTID ARTERIES [facility] US CAROTID ARTERIES [facility] Vascular Lab Routine Bilateral carotid artery stenosis 1 Occurrences starting 04/16/2023 until 04/16/2024 [facility] Work Phone: Comment on above: 1 Occurrences starting 04/16/2023 until 04/16/2024 End: 08-28-2024 US Lower extremity artery - bilateral PVR LEG [facility] Vascular Lab Routine Peripheral arterial disease (HCC) 1 Occurrences starting 08/29/2023 until 08/28/2024 [facility] Work Phone: Comment on above: 1 Occurrences starting 08/29/2023 until 08/28/2024 End: 08-27-2025 XR Chest PA and Lateral XR CHEST 2V FRONTAL/LAT Radiology Routine Wheezing Acute on chronic hypoxic respiratory failure (HCC) Community acquired bacterial pneumonia 1 Occurrences starting 07/28/2024 until 08/27/2025 [facility] Work Phone: Comment on above: 1 Occurrences starting 07/28/2024 until 08/27/2025 End: 10-21-2025 XR Hand - right PA and Lateral and Oblique XR HAND GENERAL 3V PA/LAT/OBL RIGHT Radiology Routine Hand injury, right, initial encounter Swelling of right hand 1 Occurrences starting 09/21/2024 until 10/21/2025 [facility] Work Phone: Comment on above: 1 Occurrences starting 09/21/2024 until 10/21/2025 XR Hand - right PA a nd Lateral and Oblique XR HAND GENERAL 3V PA/LAT/OBL RIGHT Radiology Routine Hand injury, right, initial encounter Swelling of right hand 09/21/2024 12:42 PM EDT [facility] Work Phone: End: 12-20-2024 XR Toes - left 3 Views XR TOE AP/LAT/OBL LEFT Radiology Routine Ulcer of toe of left foot, limited to breakdown of skin (HCC) 1 Occurrences starting 11/21/2023 until 12/20/2024 [facility] Work Phone: Comment on above: 1 Occurrences starting 11/21/2023 until 12/20/2024 XR Toes - left 3 Views XR TOE AP /LAT/OBL LEFT Radiology Routine Ulcer of toe of left foot, limited to breakdown of skin (HCC) 11/21/2023 11:32 AM EDT [facility] Immunizations Immunization Date Immunization Notes Care Provider Connie david 03-30-2024 COVID-19 vaccine, unspecified formulation Alma Gill TECHNICAL APPLICATIONS SCIENTIST.TAG MACHINE OPERATOR Work Phone: [facility] 03-30-2024 influenza, high dose seasonal, preservative-free Alma Jasonden TECHNICAL APPLICATIONS SCIENTIST.TAG MACHINE OPERATOR Work Phone: [facility] 03-30-2024 influenza virus vacc ine, unspecified formulation Alma Gill TECHNICAL APPLICATIONS SCIENTIST.TAG MACHINE OPERATOR Work Phone: [facility] 09-03-2023 zoster RZV vaccine, PF, (SHINGRIX) 50 mcg/0.5 mL injection Alma Gill APRN.TAG MACHINE OPERATOR Work Phone: [facility] 08-29-2023 COVID-19 original vaccine, booster dose, monovalent (MODERNA) No Pcp TECHNICAL APPLICATIONS SCIENTIST [facility] 08-29-2023 respiratory syncytia l virus (RSV) vaccine, adjuvanted (AREXVY) No Pcp TECHNICAL APPLICATIONS SCIENTIST [facility] 02-14-2023 COVID-19 vaccine, ag e 12+ yr, season ([employer]) Lilian Rodríguez PA-C Work Phone: [facility] Work Phone: 02-14-2023 COVID-19 vaccine, ag e 12+ yr, bivalent (PFIZER-BIONTECH) Almamassiel Gill TECHNICAL APPLICATIONS SCIENTIST.TAG MACHINE OPERATOR Work Phone: [facility] 02-14-2023 influenza (aIIV4) vaccine, age 65+ yr, quadrivalent, PF (FLUAD QUAD) Lilian Rodríguez PA-C Work Phone: [facility] Work Phone: 02-14-2023 influenza (HD-IIV4) vaccine, age 65+ yr, high dose, quadrivalent, PF (FLUZONE HIGH-DOSE) Almamassiel Gill TECHNICAL APPLICATIONS SCIENTIST.TAG MACHINE OPERATOR Work Phone: [facility] 02-14-2023 influenza virus vacc ine, unspecified formulation Alma Queviolet TECHNICAL APPLICATIONS SCIENTIST.TAG MACHINE OPERATOR Work Phone: [facility] 11-08-2022 pneumococcal (PCV20) vaccine, 20 valent (PREVNAR 20) Nurse Dublin Work Phone: [facility] 11-08-2022 pneumococcal Conjuga te, unspecified formulation Nurse Dublin Work Phone: [facility] Work Phone: 03-12-2022 COVID-19 booster vaccine, age 12+ yr, bivalent (PFIZER-BIONTECH) Alma Gill TECHNICAL APPLICATIONS SCIENTIST.TAG MACHINE OPERATOR Work Phone: [facility] 02-01-2022 influenza, high-dose , quadrivalent vaccine (FLUZONE HIGH DOSE QUADRIVALENT) Alma Gill TECHNICAL APPLICATIONS SCIENTIST.TAG MACHINE OPERATOR Work Phone: [facility] 02-01-2022 influenza virus vacc ine, unspecified formulation Alma Gill TECHNICAL APPLICATIONS SCIENTIST.TAG MACHINE OPERATOR Work Phone: [facility] 09-09-2021 COVID-19 original vaccine, age 12+ yr, monovalent (PFIZER-BIONTECH - GUZMAN TOP) Almamassiel Gill TECHNICAL APPLICATIONS SCIENTIST.TAG MACHINE OPERATOR Work Phone: [facility] 05-23-2021 pneumococcal polysaccharide vaccine, 23 valent Palak Snyder MD Work Phone: [facility] 02-24-2021 COVID-19 original vaccine, age 12+ yr, monovalent (PFIZER-BIONTECH - PURPLE TOP) Alma Gill TECHNICAL APPLICATIONS SCIENTIST.TAG MACHINE OPERATOR Work Phone: [facility] 01-17-2021 influenza, high-dose , quadrivalent vaccine (FLUZONE HIGH DOSE QUADRIVALENT) Palak Snyder MD Work Phone: [facility] 08-18-2020 COVID-19 original vaccine, age 12+ yr, monovalent (PFIZER-BIONTECH - PURPLE TOP) Alma Gill TECHNICAL APPLICATIONS SCIENTIST.TAG MACHINE OPERATOR Work Phone: [facility] 07-27-2020 COVID-19 vaccine, ag e 12+ yr (PFIZER-BIONTECH - PURPLE TOP) Palak Snyder MD Work Phone: [facility] 05-22-2020 tetanus toxoid, redu ortega diphtheria toxoid, and acellular pertussis vaccine, adsorbed Palak Snyder MD Work Phone: [facility] 03-14-2020 influenza, high dose seasonal, preservative-free Palak Snyder MD Work Phone: [facility] Payers Date Payer Category Payer Self-pay 2021 [facility] ANISA HUNT DICARE SUPPLEMENT [id number] 2021 Unknown [employer]ISA [employer]T DICARE SUPPLEMENT [id number] 2021-Present [phone] [address] [place] [address] Indemnity [id number] 2021 Unknown 2021 Unknown [id number] 2001 Medicare MEDICARE MEDICAR E A AND B [id number] 2001-Present [phone] [place] [address] Medicare [id number] 2001 Medicare [id number] 2001 Medicare [id number] Unknown [id number] Unknown [id number] Social History Date Type Detail Facility Start: 05-22-2020 End: 01-29-2024 Tobacco smoking status NHIS Ex-smoker [facility] Start: 05-13-1961 End: 05-13-2001 History of tobacco use Current smoker [facility] Start: 05-22-2020 End: 01-29-2024 Tobacco use and exposure Former smokeless tobacco user [facility] History of tobacco use Chews Tobacco [facility] Start: 05-23-2021 End: 12-07-2024 Alcohol intake Current drinker of alcohol (finding) [facility] Start: 05-22-2020 History SDOH Alcohol Comment Occasional [facility] Start: 1955 Sex Assigned At Not on file C [facility] Tobacco smoking consumption unknown [facility] Start: 09-22-2021 End: 03-19-2022 Exposure to SARS-CoV-2 (event) Not sure [facility] Start: 1955 Sex Assigned At Male C [facility] Start: 05-13-1961 End: 05-13-2001 History of tobacco use Cigarette Smoker [facility] Start: 11-20-2022 End: 08-17-2024 Cigarettes smoked current (pack per day) - Reported 2 [facility] Work Phone: Start: 11-20-2022 End: 08-17-2024 Tobacco use panel [facility] Work Phone: Start: 05-10-2020 Adult Depression Screening Assessment 0 [facility] Work Phone: Start: 11-22-2021 Gender identity Identifies as male gender (finding) [facility] Start: 11-22-2021 Sexual orientation Heterosexual (wilfred bryant) [facility] Has the electric, gas, oil, or water company threatened to shut off services in your home in past 12Mo No [facility] (I/We) worried whether (my/our) food would run out before (I/we) got money to buy more. Never true [facility] How hard is it for you to pay for the very basics like food, housing, medical care, and heating Not very hard [facility] Work Phone: Start: 07-29-2024 Sex Male (finding) [facility] NEGATED: Highlighted row - - [facility] [address] Work Phone: Goals Date Patient Goal Desired Activity /State Personal health goal Functional Status Date Assessment Result Facility 10-16-2024 Are you deaf, or do you have serious difficulty hearing Yes 10/16/2024 3:47 PM Ivania Mcdonald RN Yes [facility] 10-16-2024 Are you blind, or do you have serious difficulty seeing, even when wearing glasses No 10/16/2024 3:47 PM Ivania Mcdonald RN No [facility] 10-16-2024 Do you have serious difficulty walking or climbing stairs Yes 10/16/2024 3:47 PM Ivania Mcdonald RN Yes [facility] 10-16-2024 Do you have difficul ty dressing or bathing Yes 10/16/2024 3:47 PM Ivania Mcdonald, SERGEY Yes [facility] 10-16-2024 Because of a physica l, mental, or emotional condition, do you have difficulty doing errands alone such as visiting a physician's office or shopping Yes 10/16/2024 3:47 PM Ivania Mcdonald, SERGEY Yes [facility] 01-16-2024 Are you deaf, or do you have serious difficulty hearing Yes 01/16/2024 1:57 PM Darlin Clarke, SERGEY Yes [facility] 01-16-2024 Are you blind, or do you have serious difficulty seeing, even when wearing glasses No 01/16/2024 1:57 PM Darlin Clarke, SERGEY No [facility] 01-16-2024 Do you have serious difficulty walking or climbing stairs Yes 01/16/2024 1:57 PM Darlin Clarke, SERGEY Yes [facility] 01-16-2024 Do you have difficul ty dressing or bathing No 01/16/2024 1:57 PM Darlin Clarke, SERGEY No [facility] 01-16-2024 Because of a physica l, mental, or emotional condition, do you have difficulty doing errands alone such as visiting a physician's office or shopping Yes 01/16/2024 1:57 PM Darlin Clarke, SERGEY Yes [facility] NEGATED: Highlighted row Functional performance Functional status health issues are not documented Disease [facility] [address] Work Phone: Mental Status Date Assessment Result Facility 10-16-2024 Because of a physical, mental, or emotional condition, do you have serious difficulty concentrating, remembering, or making decisions Yes 10/16/2024 3:47 PM Ivania Mcdonald RN Yes [facility] 01-16-2024 Because of a physical, mental, or emotional condition, do you have serious difficulty concentrating, remembering, or making decisions No 01/16/2024 1:57 PM Darlin Clarke RN No [facility] NEGATED: Highlighted row Cognitive function [Interpretation] Cognitive status health issues are not documented Disease [facility] [address] Work Phone: Clinical Notes 08-16-2021 to 03-15-2025 Telephone Encounter - Priya Pedersen MA - 01/25/2025 12:06 PM EDTTelephone Encounter - Priya Pedersen MA - 01/25/2025 12:06 PM EDTTelephone Encounter - Priya Pedersen, VANNA - 01/19/2025 2:18 PM EDT Note Date & Type Note Facility 03-15-2025 Note [facility] 03-15-2025 Note [facility] 02-17-2025 Note [facility] 02-11-2025 Note HNO ID: [id number] Author: ALMA GILL APRN.TAG MACHINE OPERATOR Service: ? Author Type: Nurse Practitioner Type: Progress Notes Filed: 02/15/2025 11:45 Note Text: CHIEF COMPLAINT: The patient is a 69-year-old male with ILD, chronic respiratory failure, chronic GERD, CHF, CAD, HTN, HPL presenting for evaluation of persistent productive cough. I reviewed past medical, surgical, social, and family histories today and updated chart. Allergies, chronic medications, and supplements were also reviewed. His is present with him today.Recording using [employer] software for draft documentation of the visit was discussed with the patient/authorized sales promotion representative; all questions welcomed and answered. Patient/authorized sales promotion representative agreed to proceed Pulmonary Fibrosis: - Recent approval for Ofev, not yet started. - Previous medication caused hospitalization; discontinued. - Recent CT scan performed today. - Follow-up with Dr. Simon scheduled next week. - Persistent productive cough with thick, "gummy" sputum x7 days. - Completed course of Levaquin with no perceived improvement. - Denies fevers, chills, or night sweats. - Using Pulmicort nebulizer, DuoNeb, and albuterol. - He stopped taking Mucinex. - Reports increased dyspnea, especially with minimal activity. Weight Gain: - Gained approximately 25 lbs since November. - Increased appetite, frequently eating snacks such as bananas, saltine crackers, Sniders Puffs, and ice cream. - He also stopped taking his furosemide, previously taken 3 times a week. Primarily because he was urinating "too much". Musculoskeletal Pain: - Reports pain in shoulders, neck, and hips. - Limited mobility, primarily moving to use the bathroom. - Occasionally washes dishes but reports dyspnea with activity. They are inquiring about an electric wheelchair for him OV 11/11/24: John Peterson is a 69-year-old male with a history of interstitial lung disease, presenting for follow-up after recent hospitalization for pneumonia and sepsis, accompanied by his who is providing history on his behalf. I reviewed past medical, surgical, social, and family histories today and updated chart. Allergies, chronic medications, and supplements were also reviewed. Recording using [employer] software for draft documentation of the visit was discussed with the patient/authorized sales promotion representative; all questions welcomed and answered. Patient/authorized sales promotion representative agreed to proceed Pneumonia and Sepsis: - Recent hospitalization for pneumonia and sepsis, with a 4-day stay. - reports that the diagnosis of pneumonia and sepsis was not communicated until the day of discharge. - Hospitalization also involved treatment for colitis. - Discharged with Bactrim - Scheduled to see Dr. Simon tomorrow. Interstitial Lung Disease: - History of interstitial lung disease. - Awaiting approval for CellCept. - Reports increased dyspnea since returning home. - Scheduled for pulmonary function testing tomorrow. Tremors: - Notable tremors, reportedly worsening. - Family history of essential tremors in John's mother. Boxer's Fracture: - Recent boxer's fracture with right hand, previously in a cast, now removed. - Experiencing some swelling; using a stress ball for rehabilitation. Chronic Diarrhea: - Chronic diarrhea, reportedly managed with medication. - Previously on Metamucil, but discontinued due to worsening symptoms. - Consumes a diet high in bananas. HOSPITAL COURSE: Mars Peterson is a 69 year old male presented with past medical history of r diastolic heart failure, interstitial lung disease on 3 L of oxygen chronically, hypertension, CAD s/p CABG x 4, HILARIO, PVD s/p right BKA, anxiety/depression, hyperlipidemia, and hyponatremia who presents with feeling unwell. Patient states that his ill feelings started yesterday morning when he awoke suddenly at approximately 3 AM. At that time, he states that he was shaking but was able to fall back asleep till approximately 6 AM. At that time, he felt diaphoretic and his took his temperature which was found to be 100.9. They decided to wait until home health care came who found that his blood pressure was low and directed him to come to the emergency room. Interestingly, the patient also notes that he does have a chronic cough but for the past 2-3 nights it has been more frequent/productive which it normally is not. He also notes some chronic diarrhea that does not seem to be changing in amount or consistency as well as 2 episodes of emesis/nausea. 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 Socially, the patient denies nicotine use, alcohol use, or recreational drug use. Furthermore he denies headache, changes in his vision/hearing, trouble swallowing, chest pain, shortness of breath, abdominal pain, constipa (more content not included)... [facility] 02-11-2025 Note HNO ID: [id number] Author: CASH MCDANIEL CT Service: Radiology Author Type: Technologist Type: Progress Notes Filed: 02/11/2025 11:46 Note Text: Radiology Service Progress Note PATIENT NAME: Mars Peterson DATE OF SERVICE: February 11, 2025 TIME: 11:46 AM PATIENT IDENTITY VERIFICATION COMPLETED USING TWO (2) IDENTIFIERS: Name and Date of confirmed by patient verbally. FALL SCREENING: Has the patient had 2 falls in the last year or 1 fall with injury or currently using an Ambulatory Assistive Device (Walker, Cane, Wheelchair, Crutches, etc.)? No PATIENT GENDER DATA: Assigned male at PATIENT RELEVANT IMPLANT DATA REVIEWED: Not Applicable PATIENT PRESENTS WITH AN IMPLANTABLE OR ATTACHED LEAD SHOP OPERATOR: No RADIOLOGY DEPARTMENT: CT; Exam(s) Completed: Chest. Anesthesia: No PERIPHERAL IV DATA: Not applicable SIGNED BY: KERVIN Vela February 11, 2025 11:[address] [facility] 01-25-2025 Telephone encounter Note Form received from [place] placed on signing chris Pedersen MA [facility] 01-25-2025 Miscellaneous Notes Form received from [place] placed on signing trajose de jesus Pedersen MA documented in this encounter [facility] 01-19-2025 Telephone encounter Note Faxed Priya Pedersen MA [facility] 01-19-2025 Miscellaneous Notes Faxed Priya Pedersen MA [facility] PT added. Please fax referral to [facility]. Thanks! documented in this encounter [facility] 01-19-2025 Telephone encounter Note [facility] PT added. Please fax referral to [facility]. Thanks! [facility] 01-12-2025 Telephone encounter Note pharmacy electronically requesting refills as follows: Last seen 11/10/24 . Last refill plavix 06/23/24, lexapro 03/31/24 . Requested Prescriptions Pending Prescriptions Disp Refills clopidogrel (PLAVIX) 75 mg tablet [Pharmacy Med Name: CLOPIDOGREL 75 MG TABLET] 90 tablet 1 Sig: TAKE 1 TABLET BY MOUTH EVERY DAY escitalopram oxalate (LEXAPRO) 20 mg tablet [Pharmacy Med Name: ESCITALOPRAM 20 MG TABLET] 90 tablet 1 Sig: TAKE 1 TABLET BY MOUTH EVERY DAY Please review and advise. Precious Lacy MA [facility] 01-12-2025 Miscellaneous Notes pharmacy electronically requesting refills as follows: Last seen 11/10/24 . Last refill plavix 06/23/24, lexapro 03/31/24 . Requested Prescriptions Pending Prescriptions Disp Refills clopidogrel (PLAVIX) 75 mg tablet [Pharmacy Med Name: CLOPIDOGREL 75 MG TABLET] 90 tablet 1 Sig: TAKE 1 TABLET BY MOUTH EVERY DAY escitalopram oxalate (LEXAPRO) 20 mg tablet [Pharmacy Med Name: ESCITALOPRAM 20 MG TABLET] 90 tablet 1 Sig: TAKE 1 TABLET BY MOUTH EVERY DAY Please review and advise. Precious Lacy MA documented in this encounter [facility] 01-07-2025 Telephone encounter Note Faxed Priya Pedersen MA [facility] 01-07-2025 Miscellaneous Notes Faxed Priya Pedersen MA Please fax new referral for SN to [facility] to continue services. documented in this encounter [facility] 01-05-2025 Telephone encounter Note Please fax new referral for SN to [facility] to continue services. [facility] 12-21-2024 Telephone encounter Note pharmacy electronically requesting refills as follows: Last seen 11/10/24 . Last refill 06/23/24 . Requested Prescriptions Pending Prescriptions Disp Refills metoprolol succinate ER (TOPROL XL) 25 mg 24 hr tablet [Pharmacy Med Name: METOPROLOL SUCC ER 25 MG TAB] 90 tablet 1 Sig: TAKE 1 TABLET BY MOUTH EVERY DAY Please review and advise. Precious Lacy MA [facility] 12-21-2024 Miscellaneous Notes pharmacy electronically requesting refills as follows: Last seen 11/10/24 . Last refill 06/23/24 . Requested Prescriptions Pending Prescriptions Disp Refills metoprolol succinate ER (TOPROL XL) 25 mg 24 hr tablet [Pharmacy Med Name: METOPROLOL SUCC ER 25 MG TAB] 90 tablet 1 Sig: TAKE 1 TABLET BY MOUTH EVERY DAY Please review and advise. Precious Lacy MA documented in this encounter [facility] 12-07-2024 Note [facility] 12-07-2024 History of Presen t illness Narrative Subjective: Patient presents to clinic c/o painful toenails. They state that the nails are especially painful with shoe gear and pressure. No other pedal complaints at this time. Patient states no change in medications or medical history since last visit. Objective: Patient presents to clinic nonambulatory Vasc: DP and PT pulses are nonpalpable left. CFT is less than 5 seconds left. Skin temperature is warm to cool proximal to distal left. There is no edema or varicosities noted. Non-Invasive Vascular Laboratory [facility] Lower Extremity Arterial Physiology Study Bilateral/Complete Date of service/time: 10/15/2023 11:06:24 AM Name: MARS PETERSON Date of : 1955 Age: 68 years Gender: M Clinical Indication Peripheral vascular disease. TECHNIQUE -------- An arterial physiological examination was performed, including measurement of blood pressures using continuous wave Doppler and recording of plethysmographic with or without Doppler waveforms at the below-mentioned limb segments. FINDINGS -------- RIGHT SIDE AT REST Right Pressures Brachial: 156 mmHg High thigh: 255 mmHg Non-compressible arteries. Low thigh: 255 mmHg Non-compressible arteries. Right PVR Waveforms High thigh: Normal. Low thigh: Normal. LEFT SIDE AT REST Left Doppler Waveforms Dorsalis pedis: Multiphasic. Post tibial: Multiphasic. Left Pressures Brachial: 160 mmHg High thigh: 255 mmHg Non-compressible arteries. Low thigh: 255 mmHg Non-compressible arteries. Calf: 255 mmHg Non-compressible arteries. Ankle dorsalis pedis: 255 mmHg SUHA: 1.59 Non-compressible arteries. Ankle posterior tibial: 255 mmHg SUHA: 1.59 Non-compressible arteries. Digit: 123 mmHg Left PVR Waveforms High thigh: Normal. Low thigh: Normal. Calf: Normal. Ankle: Normal. Transmetatarsal: Normal. Digit: Normal. IMPRESSION RIGHT SIDE Resting right ankle brachial index: Below knee amputation. Right ankle: Below knee amputation. LEFT SIDE Resting left ankle brachial index: 1.59 Non-compressible arteries, SUHA not accurate. Left toe brachial index: 0.77 Non-compressible vessels, results called by PVR tracings. Normal toe brachial index at rest in the left leg. Left ankle: Normal at rest. Technologist: Davina Vaughn RVT, [facility] Ordering physician: KATELYNN KNOWLES Interpreting physician: ELPIDIO Stringer DO Neuro: Protective sensation is absemt to the foot and toes when tested with the 5.07 SWM left. Derm: Nails 3-5 left are discolored-yellow, thick, crumbly, dystrophic and with subungal debris. Left 1st and 2nd toe is thick but normal in length. Skin is dry to the left foot Ortho: right bka Assessment: (B35.1) Onychomycosis (primary encounter diagnosis) (Z89.511) 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) (M79.672) Left foot pain Pad Plan: Patient was seen and evaluated. Nails 1-5 left were debrided in length and thickness. Q7 modifier Small bleed to left 4th toe. Band aide applied. Call if any issues arise. Recommend the use of lambs wool between toes to help avoid rubbing, primary to left 1st and 2nd toe Patient is to RTC in 3-4 months. Offered follow-up to check on 4th toe. They will let us know if any issues arise. Francesco Tobias DPM AMB ROOMING INTAKE FLOWSHEET DATA Patient presents with: Left Foot - Established Patient, Follow Up, Nail care Shanda Simon LPN documented in this encounter [facility] 12-07-2024 Note [facility] 12-01-2024 Telephone encounter Note Faxed Priya Pedersen MA [facility] 12-01-2024 Miscellaneous Notes Faxed Priya Pedersen MA Form received [facility] placed on signing trajose de jesus Pedersen MA documented in this encounter [facility] 12-01-2024 Telephone encounter Note Form received [facility] placed on signing tray Priya Pedersen MA [facility] 11-26-2024 Telephone encounter Note [facility] placed on signing tray Priya Pedersen MA [facility] 11-26-2024 Miscellaneous Notes Form received from [facility] placed on signing tray Priya Pedersen MA documented in this encounter [facility] 11-23-2024 Note HNO ID: [id number] Author: LILIAN SETHI RN Service: ? Author Type: Registered Nurse Type: Progress Notes Filed: 11/23/2024 16:06 Note Text: AG TRANSITIONAL CARE MANAGEMENT (TCM) FOLLOW-UP NOTE Patient identified by name and date of : NO Diagnosis: N/A Summary: TCM RN called for TCM f/u (D/C 10/16/24) - left msg. Health leads screening tool questions performed? Addressed 10/19/24 N/A Concerns: N/A Inspector Aide plan for next outreach: No further follow-up needed at this time. Signature: Lilian Sethi RN November 23, 2024 [facility] 11-23-2024 History of Presen t illness Narrative AG TRANSITIONAL CARE MANAGEMENT (TCM) FOLLOW-UP NOTE Patient identified by name and date of : NO Diagnosis: N/A Summary: TCM RN called for TCM f/u (D/C 10/16/24) - left msg. Health leads screening tool questions performed? Addressed 10/19/24 N/A Concerns: N/A Inspector Aide plan for next outreach: No further follow-up needed at this time. Signature: Lilian Sethi RN November 23, 2024 documented in this encounter [facility] 11-23-2024 Note Patient Outreach (AG ACM) MARS PETERSON ([id number]) 1955 [facility] Date Time Provider Department 11/23/24 LILIAN SETHI [facility] During your visit today, we recorded the following information about you: Lilian Sethi, SERGEY 11/23/2024 4:06 PM Signed AG TRANSITIONAL CARE MANAGEMENT (TCM) FOLLOW-UP NOTE Patient identified by name and date of : NO Diagnosis: N/A Summary: JENNIE RN called for TCM f/u (D/C 10/16/24) - left msg. Health leads screening tool questions performed? Addressed 10/19/24 N/A Concerns: N/A Inspector Aide plan for next outreach: No further follow-up needed at this time. Signature: Lilian Sethi RN November 23, 2024 Allergies As of Date: 11/23/2024 Noted Allergy Reaction ANIMAL DANDER 08/21/2022 14 - Other: See Comments Comments: Anything with fur SEASONAL ALLERGIES 08/21/2022 14 - Other: See Comments Comments: Stuffy nose, headaches Date Reviewed: 11/11/2024 Reviewed by: Abbie Mason LPN - Fully Assessed Reason for Visit: Transition Of Care [4074] Cmt: TCM f/u Prescriptions as of 11/23/2024 - pantoprazole DR (PROTONIX) 40 mg tablet TAKE 1 TABLET BY MOUTH EVERY DAY - predniSONE (DELTASONE) 5 mg tablet Take 1 tablet by mouth once daily. - guaiFENesin (MUCINEX) 600 mg 12 hr tablet Take 1 tablet by mouth two times a day. - azaTHIOprine (IMURAN) 50 mg tablet Take 1 tablet by mouth once daily. - colestipol (COLESTID) 1 gram tablet Take 1 tablet by mouth two times a day. - acyclovir (ZOVIRAX) 400 mg tablet TAKE 1 TABLET BY MOUTH EVERY DAY - traZODone (DESYREL) 100 mg tablet TAKE 2 TABLETS BY MOUTH EVERY DAY AT BEDTIME - isosorbide mononitrate ER (IMDUR) 30 mg 24 hr tablet Take 1 tablet by mouth once daily. - gabapentin (NEURONTIN) 300 mg capsule TAKE 2 CAPSULES BY MOUTH EVERY MORNING AND 3 CAPSULES AT BEDTIME FOR 30 DAYS. Strength: 300 mg - hydrOXYzine HCl (ATARAX) 25 mg tablet Take 2 tablets by mouth two times a day. - budesonide (PULMICORT) 0.5 mg/2 mL nebulizer solution Use 2 mL via nebulizer two times a day. - ipratropium-albuterol (DUONEB) 0.5 mg-3 mg(2.5 mg base)/3 mL nebu Inhale 3 mL as instructed every 4 hours while awake. - metoprolol succinate ER (TOPROL XL) 25 mg 24 hr tablet Take 1 tablet by mouth every afternoon. - clopidogrel (PLAVIX) 75 mg tablet Take 1 tablet by mouth once daily. - rosuvastatin (CRESTOR) 20 mg tablet Take 1 tablet by mouth daily at bedtime. - lisinopril 2.5 mg tablet Take 1 tablet by mouth two times a day. Hold if SBP less than 110 - ezetimibe (ZETIA) 10 mg tablet Take 1 tablet by mouth once daily. - furosemide (LASIX) 40 mg tablet Take 1 tablet by mouth three times a week. - escitalopram oxalate (LEXAPRO) 20 mg tablet Take 1 tablet by mouth once daily. - OXYGEN, HOME THERAPY, 3 L/min by Nasal Cannula route as directed. - fluticasone (FLONASE) 50 mcg/actuation nasal spray spray 1 spray into each nostril every day - nitroglycerin sublingual (NITROSTAT) 0.4 mg SL tablet Dissolve 1 tablet under the tongue every 5 minutes as needed for chest pain. - albuterol sulfate 90 mcg/actuation aebs Inhale 1-2 Puffs as instructed every 4 hours as needed for wheezing/shortness of breath. - Lactobacillus acidophilus (PROBIOTIC) 10 billion cell cap Take 1 capsule by mouth once daily. - acetaminophen (TYLENOL EXTRA STRENGTH) 500 mg tablet Take 2 tablets by mouth every 8 hours as needed for pain. FOR PAIN. - Zinc 50 mg tab Take 50 mg by mouth once daily. - aspirin, enteric coated (ASPIRIN, ENTERIC COATED) 81 mg EC tablet Take 81 mg by mouth once daily. - multivit-min/folic/vit K/lycop (ONE-A-DAY MEN'S MULTIVITAMIN ORAL) Take by mouth once daily. Problem List As Of Date 11/23/2024 Noted Resolved Essential hypertension [I10] 05/24/2020 Peripheral vascular disease [I73.9] 05/24/2020 Chronic back pain [M54.9, G89.29] 05/24/2020 Obesity, Class II, BMI 35-39.9 [E66.812] 05/24/2020 Status post below knee amputation of right lowe*10/22/2020 Chronic diastolic congestive heart failure (HCC*11/23/2021 Coronary artery disease of ione artery of kell*11/23/2021 CVA (cerebral vascular accident) ([facility]) [I63.9] 11/23/2021 11/20/2022 Neuropathy [G62.9] 11/23/2021 Osteomyelitis of foot (HCC) [M86.9] 11/23/2021 09/18/2023 Umbilical hernia [K42.9] 11/23/2021 Pressure injury of right buttock, stage 2 (HCC)*02/01/2022 09/18/2023 Pressure injury of left buttock, stage 2 (HCC) *02/01/2022 09/18/2023 Chest pain [R07.9] 02/01/2022 10/12/2024 Essential tremor [G25.0] 02/01/2022 Anxiety and depression [F41.9, F32.A] 02/01/2022 SOB (shortness of breath) [R06.02] 02/15/2022 10/12/2024 Impaired fasting glucose [R73.01] 06/04/2022 Mixed hyperlipidemia [E78.2] 06/04/2022 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1] 06/04/2022 Hyponatremia [E87.1] 06/04/2022 Post PTCA [Z98.61] 08/08/2022 AZRA (acute kidney injury) (HCC) [N17.9] 08/10/2022 0 (more content not included)... [facility] 11-16-2024 Telephone encounter Note pharmacy electronically requesting refills as follows: Last seen 11/10/24 . Last refill 05/25/24 . Requested Prescriptions Pending Prescriptions Disp Refills pantoprazole DR (PROTONIX) 40 mg tablet [Pharmacy Med Name: PANTOPRAZOLE SOD DR 40 MG TAB] 90 tablet 1 Sig: TAKE 1 TABLET BY MOUTH EVERY DAY Please review and advise. Precious Lacy MA [facility] 11-16-2024 Miscellaneous Notes pharmacy electronically requesting refills as follows: Last seen 11/10/24 . Last refill 05/25/24 . Requested Prescriptions Pending Prescriptions Disp Refills pantoprazole DR (PROTONIX) 40 mg tablet [Pharmacy Med Name: PANTOPRAZOLE SOD DR 40 MG TAB] 90 tablet 1 Sig: TAKE 1 TABLET BY MOUTH EVERY DAY Please review and advise. Precious Lacy MA documented in this encounter [facility] 11-11-2024 Note [facility] 11-11-2024 History of Presen t illness Narrative Images from the original note were not included. Respiratory [place] Mars Peterson is a 69 year old male here for a follow up with the [facility] Interstitial Lung Disease Team. HISTORY OF PRESENT ILLNESS: Here for follow up from hospital. Able to get dressed by himself and get into wheelchair Is able to use bathroom but needs help to get in by himself He is starting on therapy on Saturday He is currently having drainage from both sinuses and lungs thinks his breathing is overall worse and more labored since he has been out of the hospital, noticing pursed lip breathing Weight is down about 6 lbs since his visit with Tru Lucas He is coughing up some junk Requiring 4L oxygen and breathing is better Currently using, budesonide twice daily, duoneb four times daily. Also on mucinex 600 mg No acapella or pickle at home Not using a lot of extra treatments, had to use one the other day. Feels like there is junk in his lungs 11/11/2024 11/10/2024 10/29/2024 10/21/2024 10/16/2024 Weight Weight 265 lb -- 271 lb 2.7 oz 265 lb 265 lb 6.9 oz REVIEW OF SYSTEMS: MRC Dyspnea Scale: 4. Stops for breath after about 100 m or after a few minutes on the level All others per history of present illness or otherwise negative on detailed 14 point review. 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 Peripheral vascular disease Right hand pain S/P CABG (coronary artery bypass graft) Umbilical hernia PAST SURGICAL HISTORY Procedure Laterality Date BACK SURGERY HX 2017 CABG (1) VEIN GRAFT & ARTERIAL GRAFT 2002 CABG x4 COLONOSCOPY 2007 FINGER AMPUTATION (SPECIFY DIGIT) HX HIP SURGERY HX 1999 1999, 2019 Replacement Right and left LEG AMPUTATION HX Right 2018 PAST SURGICAL HISTORY OF coccyx for pilonidal cyst REMV CATARACT EXTRACAP,INSERT LENS Bilateral SOCIAL HISTORY: Social History Tobacco Use Smoking status: Former Packs/day: 0.00 Years: 2.0 packs/day for 40.0 years (80.0 ttl pk-yrs) Types: Cigarettes Start date: 05/13/1961 Quit date: 05/13/2001 Years since quittin.5 Smokeless tobacco: Former Types: Chew Alcohol Use: Approximately 6 oz/week [which includes 10 Cans of beer per week] Drug Use: Never FAMILY HISTORY Problem Relation Age of Onset Ovarian cancer Mother other (afib) Mother COPD Mother Asthma Mother Heart Father heart attack other (Chronic oxygen) Father other (bladder cancer) Maternal Aunt Cancer Maternal Aunt Cancer Maternal Uncle Heart Paternal Uncle Leukemia Paternal Uncle Colon Cancer No Family History ALLERGIES Allergen Reactions Animal Dander Other: See Comments Anything with fur Seasonal Allergies Other: See Comments Stuffy nose, headaches CURRENT MEDICATIONS colestipol (COLESTID) 1 gram tablet Take 1 tablet by mouth two times a day. sulfamethoxazole-trimethoprim (BACTRIM DS) 800-160 mg per tablet Take 1 tablet by mouth two times a day for 4 days, THEN 1 tablet daily before breakfast. acyclovir (ZOVIRAX) 400 mg tablet TAKE 1 TABLET BY MOUTH EVERY DAY traZODone (DESYREL) 100 mg tablet TAKE 2 TABLETS BY MOUTH EVERY DAY AT BEDTIME isosorbide mononitrate ER (IMDUR) 30 mg 24 hr tablet Take 1 tablet by mouth once daily. gabapentin (NEURONTIN) 300 mg capsule TAKE 2 CAPSULES BY MOUTH EVERY MORNING AND 3 CAPSULES AT BEDTIME FOR 30 DAYS. Strength: 300 mg hydrOXYzine HCl (ATARAX) 25 mg tablet Take 2 tablets by mouth two times a day. budesonide (PULMICORT) 0.5 mg/2 mL nebulizer solution Use 2 mL via nebulizer two times a day. ipratropium-albuterol (DUONEB) 0.5 mg-3 mg(2.5 mg base)/3 mL nebu Inhale 3 mL as instructed every 4 hours while awake. metoprolol succinate ER (TOPROL XL) 25 mg 24 hr tablet Take 1 tablet by mouth every afternoon. clopidogrel (PLAVIX) 75 mg tablet Take 1 tablet by mouth once daily. pantoprazole DR (PROTONIX) 40 mg tablet Take 1 tablet by mouth once daily. rosuvastatin (CRESTOR) 20 mg tablet Take 1 tablet by mouth daily at bedtime. lisinopril 2.5 mg tablet Take 1 tablet by mouth two times a day. Hold if SBP less than 110 ezetimibe (ZETIA) 10 mg tablet Take 1 tablet by mouth once daily. guaiFENesin (MUCINEX) 600 mg 12 hr tablet Take 1 tablet by mouth two times a day as needed for cold/allergy symptoms. furosemide (LASIX) 40 mg tablet Take 1 tablet by mouth three times a week. escitalopram oxalate (LEXAPRO) 20 mg tablet Take 1 tablet by mouth once daily. OXYGEN, HOME THERAPY, 3 L/min by Nasal Cannula route as directed. fluticasone (FLONASE) 50 mcg/actuation nasal spray spray 1 spray into each nostril every day nitroglycerin sublingual (NITROSTAT) 0.4 mg SL tablet Dissolve 1 tablet under the tongue every 5 minutes as needed for chest pain. albuterol sulfate 90 mcg/actuation aebs Inhale 1-2 Puffs as instructed every 4 hours as needed for wheezing/shortness of breath. Lactobacillus acidophilus (PROBIOTIC) 10 billion cell cap Take 1 capsule by mouth once daily. acetaminophen (TYLENOL EXTRA STRENGTH) 500 mg tablet Take 2 tablets by mouth every 8 hours as needed for pain. FOR PAIN. Zinc 50 mg tab Take 50 mg by mouth once daily. aspirin, enteric coated (ASPIRIN, ENTERIC COATED) 81 mg EC tablet Take 81 mg by mouth once daily. multivit-min/folic/vit K/lycop (ONE-A-DAY MEN'S MULTIVITAMIN ORAL) Take by mouth once daily. PHYSICAL EXAM: BP 126/63 Pulse 66 Temp 97.4 Ht 6' 0" (1.83m) Wt 265 lb (120.2kg) SpO2 95[3L o2]% BMI 35.93 kg/(m^2). Physical Exam Constitutional: General: He is not in acute distress. Appearance: He is obese. He is not toxic-appearing. HENT: Head: Normocephalic and atraumatic. Nose: No congestion or rhinorrhea. Mouth/Throat: Mouth: Mucous membranes are moist. Pharynx: No oropharyngeal exudate or posterior oropharyngeal erythema. Eyes: General: No scleral icterus. Extraocular Movements: Extraocular movements intact. Conjunctiva/sclera: Conjunctivae normal. Cardiovascular: Rate and Rhythm: Normal rate and regular rhythm. Heart sounds: No murmur heard. No friction rub. No gallop. Pulmonary: Effort: No respiratory distress. Breath sounds: No stridor. Rales present. No wheezing or rhonchi. Abdominal: General: Abdomen is flat. Bowel sounds are normal. There is no distension. Palpations: Abdomen is soft. Tenderness: There is no abdominal tenderness. Musculoskeletal: General: No tenderness. Cervical back: Normal range of motion and neck supple. Right lower leg: No edema. Left lower leg: No edema. Skin: General: Skin is warm and dry. Capillary Refill: Capillary refill takes less than 2 seconds. Coloration: Skin is not jaundiced. Neurological: General: No focal deficit present. Mental Status: He is alert and oriented to person, place, and time. DATA REVIEWED (independently reviewed by myself) Laboratory Data Laboratory data reviewed in [facility] Everywhere. Pulmonary Function Data PFT available since last visit: Yes PFTs: Date FVC FEV1 FEV1/FVC DLCO TLC RV RV/TLC BD? 11/11/2024 2.11/48 1.34/41 0.64 8.73/32 04/27/ 2.45/56 1.85/56 0.75 12.44/46 11/20/22 3.29/74 2.09/63 0.64 Six minute walk Six minute walk available since last visit: No Radiology Data New radiology data since last visit: No Echocardiogram Was an echo performed since last visit?: No Heart Catheterization Was a right heart catheterization performed since last visit?: No ASSESSMENT Mars Peterson is a 69 year old male with CPFE, former smoker, feather exposure, chronic oxygen dependence, GERD without esophagitis, CAD presenting for evaluation of ILD. 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 Recent exacerbation of ILD likely from viral infection, now O2 chronically since then. Not well enough for bronchoscopy. Have suggested mold testing which will do and removal of feathers from the household, along with trial of prednisone. Obstruction improved dramatically with steroids suggesting air trapping is improved. FVC down somewhat with increase in weight Repeat echo to reevaluate for PH was negative for PH Medication costs are a major issue. Still too sick for biopsy. Developed shingles while on cellcept + prednisone. Treated with oral acyclovir [place] + dizziness - carpenter railcar reported Aflutter and PVCs. 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 Suspect this was infectious stomach bug. Will trial azathioprine again Discussed that lung disease is progressing despite treatment, but have not been on stable dose of immunosuppression yet. Not clear to me that ofev will be of benefit and cost is high. He may be approaching end of life PLAN Treating diagnosis: Fibrotic HP ILD medications at end of visit: Prednisone, azathioprine He requires steroid sparing therapy for fHP with azathioprine He experienced steroid side effects including weight gain, hypertension, fluid retention, hyperglycemia, and skin atrophy and requires a steroid sparing agent to maintain control of his illness Continue prednisone 5 mg indefinitely Continue pulmicort neb continue Duoneb four times daily Continue albuterol as needed Continue LTOT Add acapella for productive cough - has trialed mucinex in the past with no improvement Continue treatment for GERD with protonix while on steroids Hold off on ofev, Cost is also too high. Continue shingles prophylaxis 400 mg acyclovir daily I personally monitored for side effects of high risk medications. Follow up 12 weeks with PFTs ILD CHECKLIST Was the patient discussed at a multidisciplinary discussion?: No Is the patient being treated with oxygen therapy?: Yes- continuous Does the patient have pulmonary hypertension: Suspected but not yet confirmed Is the patient being referred for transplantation?: No BMI limitation Tru Simon MD Encounter Diagnosis ICD-10-CM 1. Bronchiectasis without acute exacerbation ([facility]) J47.9 FLUTTER VALVE predniSONE (DELTASONE) 5 mg tablet guaiFENesin (MUCINEX) 600 mg 12 hr tablet 2. Hypersensitivity pneumonitis ([facility]) J67.9 predniSONE (DELTASONE) 5 mg tablet guaiFENesin (MUCINEX) 600 mg 12 hr tablet azaTHIOprine (IMURAN) 50 mg tablet 3. 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 skilled nursing (current) use of systemic steroids Z79.52 predniSONE (DELTASONE) 5 mg tablet guaiFENesin (MUCINEX) 600 mg 12 hr tablet documented in this encounter [facility] 11-10-2024 History of Presen t illness Narrative CHIEF COMPLAINT: John Peterson is a 69-year-old male with a history of interstitial lung disease, presenting for follow-up after recent hospitalization for pneumonia and sepsis, accompanied by his who is providing history on his behalf. I reviewed past medical, surgical, social, and family histories today and updated chart. Allergies, chronic medications, and supplements were also reviewed. Recording using [employer] software for draft documentation of the visit was discussed with the patient/authorized sales promotion representative; all questions welcomed and answered. Patient/authorized sales promotion representative agreed to proceed Pneumonia and Sepsis: - Recent hospitalization for pneumonia and sepsis, with a 4-day stay. - reports that the diagnosis of pneumonia and sepsis was not communicated until the day of discharge. - Hospitalization also involved treatment for colitis. - Discharged with Bactrim - Scheduled to see Dr. Simon tomorrow. Interstitial Lung Disease: - History of interstitial lung disease. - Awaiting approval for CellCept. - Reports increased dyspnea since returning home. - Scheduled for pulmonary function testing tomorrow. Tremors: - Notable tremors, reportedly worsening. - Family history of essential tremors in John's mother. Boxer's Fracture: - Recent boxer's fracture with right hand, previously in a cast, now removed. - Experiencing some swelling; using a stress ball for rehabilitation. Chronic Diarrhea: - Chronic diarrhea, reportedly managed with medication. - Previously on Metamucil, but discontinued due to worsening symptoms. - Consumes a diet high in bananas. HOSPITAL COURSE: Mars Peterson is a 69 year old male presented with past medical history of r diastolic heart failure, interstitial lung disease on 3 L of oxygen chronically, hypertension, CAD s/p CABG x 4, HILARIO, PVD s/p right BKA, anxiety/depression, hyperlipidemia, and hyponatremia who presents with feeling unwell. Patient states that his ill feelings started yesterday morning when he awoke suddenly at approximately 3 AM. At that time, he states that he was shaking but was able to fall back asleep till approximately 6 AM. At that time, he felt diaphoretic and his took his temperature which was found to be 100.9. They decided to wait until home health care came who found that his blood pressure was low and directed him to come to the emergency room. Interestingly, the patient also notes that he does have a chronic cough but for the past 2-3 nights it has been more frequent/productive which it normally is not. He also notes some chronic diarrhea that does not seem to be changing in amount or consistency as well as 2 episodes of emesis/nausea. 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 Socially, the patient denies nicotine use, alcohol use, or recreational drug use. Furthermore he denies headache, changes in his vision/hearing, trouble swallowing, chest pain, shortness of breath, abdominal pain, constipation/hematochezia, urinary changes, new numbness/tingling, or new swelling. In the [place] ED the patient was found to be afebrile and hemodynamically stable as well as saturating well on his baseline 3 L of oxygen via NC. Labs are notable for sodium of 127, chloride of 87, bicarbonate of 26, creatinine of 1.53, blood glucose of 133, normal LFTs, BNP of 1255, ethanol less than 11, high-sensitivity troponin of 49-->41-->31, hemoglobin of 13.3, and leukocytosis of 11.92 with an ANC of 9.73. COVID/flu/RSV swabs were found to be negative. UA was found to be negative for signs of UTI. Chest x-ray demonstrated unchanged moderate interstitial pulmonary opacities bilaterally which may be secondary to known pulmonary fibrosis although there is a possibility of superimposed pulmonary edema or infection. CT of the abdomen and pelvis demonstrated several air-filled loops of bowel seen without evidence of bowel obstruction as well as a large amount of fluid in the sigmoid colon/rectum possibly in setting of colitis. The patient was given doses of DuoNebs, albuterol, Solu-Medrol, 1 L normal saline, Augmentin, and Zofran. He is being transferred to hospital medicine at [place] for further workup and management of his sepsis of unknown origin. The patient was treated for pneumonia and possible colitis. His MRSA nasal was positive for which with his interstitial lung disease he could have had infection just from aspiration of postnasal drip and his Bactrim is increased to twice a day and he is treated with Bactroban nasal. All other cultures were negative and patient moved back to baseline oxygen requirement. He will get 7 days of treatment for pneumonia including 7 days of the Bactrim being therapeutic rather than prophylactic strength. 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 Peripheral vascular disease Right hand pain S/P CABG (coronary artery bypass graft) Umbilical hernia PAST SURGICAL HISTORY Procedure Laterality Date BACK SURGERY HX 2017 CABG (1) VEIN GRAFT & ARTERIAL GRAFT 2001 CABG x4 COLONOSCOPY 2006 FINGER AMPUTATION (SPECIFY DIGIT) HX HIP SURGERY HX 1999 1999, 2019 Replacement Right and left LEG AMPUTATION HX Right 2018 PAST SURGICAL HISTORY OF coccyx for pilonidal cyst REMV CATARACT EXTRACAP,INSERT LENS Bilateral Social History Tobacco Use Smoking status: Former Current packs/day: 0.00 Average packs/day: 2.0 packs/day for 40.0 years (80.0 ttl pk-yrs) Types: Cigarettes Start date: 05/13/1961 Quit date: 05/13/2001 Years since quittin.5 Smokeless tobacco: Former Types: Chew Vaping Use Vaping status: Never Used Substance Use Topics Alcohol use: Yes Alcohol/week: 10.0 standard drinks of alcohol Types: 10 Cans of beer per week Drug use: Never ALLERGIES Allergen Reactions Animal Dander Other: See Comments Anything with fur Seasonal Allergies Other: See Comments Stuffy nose, headaches Family History Problem Relation Age of Onset Ovarian cancer Mother other (afib) Mother COPD Mother Asthma Mother Heart Father heart attack other (Chronic oxygen) Father other (bladder cancer) Maternal Aunt Cancer Maternal Aunt Cancer Maternal Uncle Heart Paternal Uncle Leukemia Paternal Uncle Colon Cancer No Family History Current Outpatient Medications Medication Sig Dispense Refill colestipol (COLESTID) 1 gram tablet Take 1 tablet by mouth two times a day. 180 tablet 1 sulfamethoxazole-trimethoprim (BACTRIM DS) 800-160 mg per tablet Take 1 tablet by mouth two times a day for 4 days, THEN 1 tablet daily before breakfast. 38 tablet 0 acyclovir (ZOVIRAX) 400 mg tablet TAKE 1 TABLET BY MOUTH EVERY DAY 90 tablet 1 traZODone (DESYREL) 100 mg tablet TAKE 2 TABLETS BY MOUTH EVERY DAY AT BEDTIME 180 tablet 1 isosorbide mononitrate ER (IMDUR) 30 mg 24 hr tablet Take 1 tablet by mouth once daily. 90 tablet 1 gabapentin (NEURONTIN) 300 mg capsule TAKE 2 CAPSULES BY MOUTH EVERY MORNING AND 3 CAPSULES AT BEDTIME FOR 30 DAYS. Strength: 300 mg 150 capsule 2 hydrOXYzine HCl (ATARAX) 25 mg tablet Take 2 tablets by mouth two times a day. 360 tablet 1 budesonide (PULMICORT) 0.5 mg/2 mL nebulizer solution Use 2 mL via nebulizer two times a day. 360 mL 1 ipratropium-albuterol (DUONEB) 0.5 mg-3 mg(2.5 mg base)/3 mL nebu Inhale 3 mL as instructed every 4 hours while awake. 360 mL 5 metoprolol succinate ER (TOPROL XL) 25 mg 24 hr tablet Take 1 tablet by mouth every afternoon. 90 tablet 1 clopidogrel (PLAVIX) 75 mg tablet Take 1 tablet by mouth once daily. [address] (PROTONIX) 40 mg tablet Take 1 tablet by mouth once daily. 90 tablet 1 rosuvastatin (CRESTOR) 20 mg tablet Take 1 tablet by mouth daily at bedtime. 90 tablet 3 lisinopril 2.5 mg tablet Take 1 tablet by mouth two times a day. Hold if SBP less than 110 180 tablet 3 ezetimibe (ZETIA) 10 mg tablet Take 1 tablet by mouth once daily. 90 tablet 3 furosemide (LASIX) 40 mg tablet Take 1 tablet by mouth three times a week. 36 tablet 1 escitalopram oxalate (LEXAPRO) 20 mg tablet Take 1 tablet by mouth once daily. 90 tablet 1 OXYGEN, HOME THERAPY, 3 L/min by Nasal Cannula route as directed. fluticasone (FLONASE) 50 mcg/actuation nasal spray spray 1 spray into each nostril every day 48 mL 1 nitroglycerin sublingual (NITROSTAT) 0.4 mg SL tablet Dissolve 1 tablet under the tongue every 5 minutes as needed for chest pain. 25 tablet 0 albuterol sulfate 90 mcg/actuation aebs Inhale 1-2 Puffs as instructed every 4 hours as needed for wheezing/shortness of breath. 1 Each 2 Lactobacillus acidophilus (PROBIOTIC) 10 billion cell cap Take 1 capsule by mouth once daily. acetaminophen (TYLENOL EXTRA STRENGTH) 500 mg tablet Take 2 tablets by mouth every 8 hours as needed for pain. FOR PAIN. 90 tablet 0 Zinc 50 mg tab Take 50 mg by mouth once daily. aspirin, enteric coated (ASPIRIN, ENTERIC COATED) 81 mg EC tablet Take 81 mg by mouth once daily. multivit-min/folic/vit K/lycop (ONE-A-DAY MEN'S MULTIVITAMIN ORAL) Take by mouth once daily. predniSONE (DELTASONE) 5 mg tablet Take 1 tablet by mouth once daily. 30 tablet 5 guaiFENesin (MUCINEX) 600 mg 12 hr tablet Take 1 tablet by mouth two times a day. 60 tablet 5 azaTHIOprine (IMURAN) 50 mg tablet Take 1 tablet by mouth once daily. No current facility-administered medications for this visit. Review of Systems Respiratory: (+) shortness of breath, (+) wheezing Gastrointestinal: (+) diarrhea, (+) fecal urgency, (+) flatulence Musculoskeletal: (+) hand swelling Neurological: (+) tremor, (-) shuffling gait BP 124/78 Pulse 68 Temp (Src) 97.7 (Oral) Resp 16 Ht [Patient is wheelchair[ (0.00m) Wt 0 lb (0.0kg) SpO2 89% PF 3L/min Physical Exam GENERAL: NAD, alert and oriented. SKIN: Unremarkable, no rash or skin lesions. HEAD: Normocephalic. EYES: PERRLA, EOMI, conjunctiva clear. EARS: External ears normal, canals clear, TM's normal. NOSE/SINUSES: Nares normal. Septum midline. OROPHARYNX: Lips, mucosa, and tongue normal, good dentition. No oral lesions noted. NECK: Supple, no lymphadenopathy, normal thyroid, no carotid bruits. LUNGS: Bilateral crackles noted, wheezing resolved after coughing. Wearing supplemental oxygen, 4L. HEART: Regular rate and rhythm, no murmurs. No ectopy. EXTREMITIES: R BKA NEURO: Awake, alert and oriented to person and place. Essential tremor noted in bilateral hands. Sitting in wheelchair. No visits with results within 1 Day(s) from this visit. Latest known visit with results is: Lab Requisition on 11/02/2024 Component Date Value Ref Range Status Protein, Total 11/02/2024 6.0 (L) 6.3 - 8.0 g/dL Final Albumin 11/02/2024 3.5 (L) 3.9 - 4.9 g/dL Final Calcium, Total 11/02/2024 8.8 8.5 - 10.2 mg/dL Final Bilirubin, Total 11/02/2024 0.3 0.2 - 1.3 mg/dL Final Alkaline Phosphatase 11/02/2024 56 38 - 113 U/L Final AST 11/02/2024 20 14 - 40 U/L Final ALT 11/02/2024 16 10 - 54 U/L Final Glucose 11/02/2024 110 (H) 74 - 99 mg/dL Final The [place] [employer] (ADA) provides guidance for cutoff values for fasting glucose and random glucose. The ADA defines fasting as no caloric intake for at least 8 hours. Fasting plasma glucose results between 100 to 125 mg/dL indicate increased risk for diabetes (prediabetes). Fasting plasma glucose results greater than or equal to 126 mg/dL meet the criteria for diagnosis of diabetes. In the absence of unequivocal hyperglycemia, results should be confirmed by repeat testing. In a patient with classic symptoms of hyperglycemia or hyperglycemic crisis, random plasma glucose results greater than or equal to 200 mg/dL meet the criteria for diagnosis of diabetes. Reference: Standards of Medical Care in Diabetes 2016, [place] [employer]. Diabetes Care. 2016.39(Suppl 1). BUN 11/02/2024 9 9 - 24 mg/dL Final Creatinine 11/02/2024 0.88 0.73 - 1.22 mg/dL Final Sodium 11/02/2024 128 (L) 136 - 144 mmol/L Final Potassium 11/02/2024 4.5 3.7 - 5.1 mmol/L Final Chloride 11/02/2024 92 (L) 98 - 107 mmol/L Final CO2 11/02/2024 23 22 - 30 mmol/L Final Anion Gap 11/02/2024 13 8 - 15 mmol/L Final Estimated Glomerular Filtration Ra* 11/02/2024 92 >=60 mL/min/1.73m Final Estimated Glomerular Filtration Rate (eGFR) is calculated using the 2020 CKD-EPI creatinine equation. This equation utilizes serum creatinine, sex, and age as parameters. The creatinine assay has traceable calibration to isotope dilution-mass spectrometry. Refer to KDIGO guidelines for clinical interpretation. In patients with unstable renal function, e.g. those with acute kidney injury, the eGFR may not accurately reflect actual GFR. Albumin 11/02/2024 3.5 (L) 3.9 - 4.9 g/dL Final Calcium, Total 11/02/2024 8.8 8.5 - 10.2 mg/dL Final Phosphorus 11/02/2024 3.3 2.7 - 4.8 mg/dL Final Glucose 11/02/2024 110 (H) 74 - 99 mg/dL Final The [place] Diabetes [employer] (ADA) provides guidance for cutoff values for fasting glucose and random glucose. The ADA defines fasting as no caloric intake for at least 8 hours. Fasting plasma glucose results between 100 to 125 mg/dL indicate increased risk for diabetes (prediabetes). Fasting plasma glucose results greater than or equal to 126 mg/dL meet the criteria for diagnosis of diabetes. In the absence of unequivocal hyperglycemia, results should be confirmed by repeat testing. In a patient with classic symptoms of hyperglycemia or hyperglycemic crisis, random plasma glucose results greater than or equal to 200 mg/dL meet the criteria for diagnosis of diabetes. Reference: Standards of Medical Care in Diabetes 2016, [place] [employer]. Diabetes Care. 2016.39(Suppl 1). BUN 11/02/2024 9 9 - 24 mg/dL Final Creatinine 11/02/2024 0.88 0.73 - 1.22 mg/dL Final Sodium 11/02/2024 128 (L) 136 - 144 mmol/L Final Potassium 11/02/2024 4.5 3.7 - 5.1 mmol/L Final Chloride 11/02/2024 92 (L) 98 - 107 mmol/L Final CO2 11/02/2024 23 22 - 30 mmol/L Final Anion Gap 11/02/2024 13 8 - 15 mmol/L Final Estimated Glomerular Filtration Ra* 11/02/2024 92 >=60 mL/min/1.73m Final Estimated Glomerular Filtration Rate (eGFR) is calculated using the 2020 CKD-EPI creatinine equation. This equation utilizes serum creatinine, sex, and age as parameters. The creatinine assay has traceable calibration to isotope dilution-mass spectrometry. Refer to KDIGO guidelines for clinical interpretation. In patients with unstable renal function, e.g. those with acute kidney injury, the eGFR may not accurately reflect actual GFR. WBC 11/02/2024 7.78 3.70 - 11.00 k/uL Final RBC 11/02/2024 4.28 4.20 - 6.00 m/uL Final Hemoglobin 11/02/2024 12.1 (L) 13.0 - 17.0 g/dL Final Hematocrit 11/02/2024 39.5 39.0 - 51.0 % Final MCV 11/02/2024 92.3 80.0 - 100.0 fL Final MCH 11/02/2024 28.3 26.0 - 34.0 pg Final MCHC 11/02/2024 30.6 30.5 - 36.0 g/dL Final RDW-CV 11/02/2024 15.7 (H) 11.5 - 15.0 % Final Platelet Count 11/02/2024 259 150 - 400 k/uL Final MPV 11/02/2024 9.1 9.0 - 12.7 fL Final Neutrophils % 11/02/2024 59.4 % Final Abs Neut 11/02/2024 4.63 1.45 - 7.50 k/uL Final Lymphocytes % 11/02/2024 23.8 % Final Abs Lymph 11/02/2024 1.85 1.00 - 4.00 k/uL Final Monocytes % 11/02/2024 11.6 % Final Abs [place] 11/02/2024 0.90 (H) <0.87 k/uL Final Eosinophils % 11/02/2024 3.9 % Final Abs Eosin 11/02/2024 0.30 <0.46 k/uL Final Basophils % 11/02/2024 0.5 % Final Abs Baso 11/02/2024 0.04 <0.11 k/uL Final Immature Granulocytes % 11/02/2024 0.8 % Final Abs Immature Gran 11/02/2024 0.06 <0.10 k/uL Final NRBC 11/02/2024 0.0 /100 WBC Final Absolute nRBC 11/02/2024 <0.01 <0.01 k/uL Final Diff Type 11/02/2024 Auto Final Labs: - Serum Potassium: Previously low, improved on last measurement - Hemoglobin: Mildly decreased but stable - Blood Culture: Negative - MRSA Swab: Positive - Stool Studies: Tested for C. diff and other pathogens; results not specified Imaging: - CT Abdomen: Large amount of fluid observed, findings consistent with colitis ASSESSMENT/PLAN: 1. Acute on chronic hypoxic respiratory failure (HCC) (J96.21) 2. ILD (interstitial lung disease) (HCC) (J84.9) 3. Dependence on supplemental oxygen (Z99.81) 4. SOB (shortness of breath) on exertion (R06.02) - Recent hospitalization for pneumonia and sepsis; currently on supplemental oxygen. - Pulmonary exam reveals persistent crackles and occasional wheezing. - Scheduled to see Dr. Simon tomorrow for further evaluation and potential re-initiation of CellCept pending insurance approval. - Ordered CBC and metabolic panel to monitor current status. - Continue current oxygen therapy; monitor for any changes in respiratory status. 5. Sepsis due to pneumonia (HCC) (J18.9) - Recent hospitalization for pneumonia and sepsis; blood cultures were negative. - Completed course of Omnicef; unclear if Bactrim prophylaxis was completed. - Will review hospital notes to clarify Bactrim prophylaxis duration and necessity. - Follow-up with Dr. Simon tomorrow to discuss any further infectious disease management. 6. Essential tremor (G25.0) - Tremors noted in hands, reportedly worsening. - Discussed potential treatment options including Sinemet and beta blockers. - Will review patient's medication history and consult with neurology if necessary. 7. Hyponatremia (E87.1) - Recent labs showed improvement in sodium levels. - Ordered metabolic panel to monitor electrolyte status. - Ensure adequate hydration and monitor for any signs of electrolyte imbalance. 8. Essential hypertension (I10) - Blood pressure reportedly stable during home health visits. - Continue current antihypertensive regimen. - Monitor blood pressure regularly. 9. Chronic GERD (K21.9) - Continue current GERD management. - Monitor for any exacerbations or changes in symptoms. 10. Impaired ambulation (R26.2) 11. Requires assistance with activities of daily living (ADL) (Z74.1) - Difficulty with mobility and requires assistance with ADLs. - Home health services in place; physical therapy to resume next week. - Monitor for any changes in mobility or need for additional support. New medication(s) prescribed today: None. Counseling completed in adopting health behaviors such as avoiding excessive alcohol use, avoid tobacco use, improve nutrition, and engage in physical activities. Copy of written care plan, clinical summary, treatment plan, new medications, goals, and self management requirements were given to patient. Alma Gill APRN.CNP documented in this encounter [facility] 11-10-2024 Note HNO ID: [id number] Author: ALMA GILL APRN.CNP Service: ? Author Type: Nurse Practitioner Type: Progress Notes Filed: 11/15/2024 17:42 Note Text: CHIEF COMPLAINT: John Peterson is a 69-year-old male with a history of interstitial lung disease, presenting for follow-up after recent hospitalization for pneumonia and sepsis, accompanied by his who is providing history on his behalf. I reviewed past medical, surgical, social, and family histories today and updated chart. Allergies, chronic medications, and supplements were also reviewed. Recording using [employer] software for draft documentation of the visit was discussed with the patient/authorized sales promotion representative; all questions welcomed and answered. Patient/authorized sales promotion representative agreed to proceed Pneumonia and Sepsis: - Recent hospitalization for pneumonia and sepsis, with a 4-day stay. - reports that the diagnosis of pneumonia and sepsis was not communicated until the day of discharge. - Hospitalization also involved treatment for colitis. - Discharged with Bactrim - Scheduled to see Dr. Simon tomorrow. Interstitial Lung Disease: - History of interstitial lung disease. - Awaiting approval for CellCept. - Reports increased dyspnea since returning home. - Scheduled for pulmonary function testing tomorrow. Tremors: - Notable tremors, reportedly worsening. - Family history of essential tremors in John's mother. Boxer's Fracture: - Recent boxer's fracture with right hand, previously in a cast, now removed. - Experiencing some swelling; using a stress ball for rehabilitation. Chronic Diarrhea: - Chronic diarrhea, reportedly managed with medication. - Previously on Metamucil, but discontinued due to worsening symptoms. - Consumes a diet high in bananas. HOSPITAL COURSE: Mars Peterson is a 69 year old male presented with past medical history of r diastolic heart failure, interstitial lung disease on 3 L of oxygen chronically, hypertension, CAD s/p CABG x 4, HILARIO, PVD s/p right BKA, anxiety/depression, hyperlipidemia, and hyponatremia who presents with feeling unwell. Patient states that his ill feelings started yesterday morning when he awoke suddenly at approximately 3 AM. At that time, he states that he was shaking but was able to fall back asleep till approximately 6 AM. At that time, he felt diaphoretic and his took his temperature which was found to be 100.9. They decided to wait until home health care came who found that his blood pressure was low and directed him to come to the emergency room. Interestingly, the patient also notes that he does have a chronic cough but for the past 2-3 nights it has been more frequent/productive which it normally is not. He also notes some chronic diarrhea that does not seem to be changing in amount or consistency as well as 2 episodes of emesis/nausea. 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 Socially, the patient denies nicotine use, alcohol use, or recreational drug use. Furthermore he denies headache, changes in his vision/hearing, trouble swallowing, chest pain, shortness of breath, abdominal pain, constipation/hematochezia, urinary changes, new numbness/tingling, or new swelling. In the [place] ED the patient was found to be afebrile and hemodynamically stable as well as saturating well on his baseline 3 L of oxygen via NC. Labs are notable for sodium of 127, chloride of 87, bicarbonate of 26, creatinine of 1.53, blood glucose of 133, normal LFTs, BNP of 1255, ethanol less than 11, high-sensitivity troponin of 49-->41-->31, hemoglobin of 13.3, and leukocytosis of 11.92 with an ANC of 9.73. COVID/flu/RSV swabs were found to be negative. UA was found to be negative for signs of UTI. Chest x-ray demonstrated unchanged moderate interstitial pulmonary opacities bilaterally which may be secondary to known pulmonary fibrosis although there is a possibility of superimposed pulmonary edema or infection. CT of the abdomen and pelvis demonstrated several air-filled loops of bowel seen without evidence of bowel obstruction as well as a large amount of fluid in the sigmoid colon/rectum possibly in setting of colitis. The patient was given doses of DuoNebs, albuterol, Solu-Medrol, 1 L normal saline, Augmentin, and Zofran. He is being transferred to hospital medicine at [place] for further workup and management of his sepsis of unknown origin. The patient was treated for pneumonia and possible colitis. His MRSA nasal was positive for which with his interstitial lung disease he could have had infection just from aspiration of postnasal drip and his Bactrim is increased to twice a day and he is treated with Bactroban nasal. All other cultures were negative and patient moved back to baseline oxygen requirement. He will get 7 days of treatment for pneumon (more content not included)... [facility] 11-10-2024 Telephone encounter Note Royer given verbal order. Suzanne Almaguer MA [facility] 11-10-2024 Miscellaneous Notes Royer given verbal order. Suzanne Almaguer MA Verbal order given. Royer physical therapist with [facility] left message stating he saw patient today for recertification and plans to see patient twice a week for 3 weeks then once a week for 4 weeks. Requesting verbal okay for plan of care. States when calling back okay to leave message. Please advise. Precious Lacy MA documented in this encounter [facility] 11-09-2024 Telephone encounter Note Verbal order given. [facility] 11-09-2024 Telephone encounter Note Royer physical therapist with [facility] left message stating he saw patient today for recertification and plans to see patient twice a week for 3 weeks then once a week for 4 weeks. Requesting verbal okay for plan of care. States when calling back okay to leave message. Please advise. Precious Lacy MA [facility] 11-09-2024 Telephone encounter Note Form received from [facility] placed on signing tray Priya Pedersen MA [facility] 11-09-2024 Miscellaneous Notes Form received from [facility] placed on signing tray Priya Pedersen MA documented in this encounter [facility] 11-03-2024 Telephone encounter Note Spoke with . She was made aware of request of Dr. Simon. states understanding. Please have increase prednisone to 10 mg x 5 days then back to 5 mg. Doesn t sound like needs atbx. Increase frequency of breathing Rx. [facility] 11-03-2024 Miscellaneous Notes Spoke with . She was made aware of request of Dr. Simon. states understanding. Please have increase prednisone to 10 mg x 5 days then back to 5 mg. Doesn t sound like needs atbx. Increase frequency of breathing Rx. Received message from [facility]-Nurse. Patient had just had a breathing treatment and was still wheezing throughout ALL lung alonso. Called at this time. Per and patient he is not having trouble band has no audible wheezing. Made aware I would alert Dr. Simon to see if he needs to increase his prednisone from the 5 mg dose he is on now as well as possibility needing an Antibiotic. Made aware if no answer tonight I will get back to her tomorrow am. Denies need to seek medical attention at ED but is aware of when to seek medical attention. Annie Elizabeth RN documented in this encounter [facility] 11-02-2024 Telephone encounter Note Received message from [facility]-Nurse. Patient had just had a breathing treatment and was still wheezing throughout ALL lung alonso. Called at this time. Per and patient he is not having trouble band has no audible wheezing. Made aware I would alert Dr. Simon to see if he needs to increase his prednisone from the 5 mg dose he is on now as well as possibility needing an Antibiotic. Made aware if no answer tonight I will get back to her tomorrow am. Denies need to seek medical attention at ED but is aware of when to seek medical attention. Annie Elizabeth RN [facility] 11-02-2024 Telephone encounter Note Form signed. Please return fax. [facility] 11-02-2024 Miscellaneous Notes Form signed. Please return fax. Form chung placed on signing chris Pedersen MA documented in this encounter [facility] 11-02-2024 Telephone encounter Note Form chung placed on signing tray Priya Pedersen MA [facility] 10-29-2024 Telephone encounter Note Form received from [facility] Order: [id number] placed on signing tray Priya Pedersen MA [facility] 10-29-2024 Miscellaneous Notes Form received from [facility] Order: [id number] placed on signing tray Priya Pedersen MA documented in this encounter [facility] 10-29-2024 History of Presen t illness Narrative Images from the original note were not included. DEPARTMENT OF PULMONARY MEDICINE HOSPITAL FOLLOW-UP OFFICE VISIT 10/29/2024 HISTORY OF PRESENT ILLNESS: Mars Peterson is a 69 year old male who presents today for hospital follow-up. Past medical history is significant for fibrotic hypersensitivity pneumonitis, GERD, CAD, and PAD s/p RLE amputation. Former [id number] smoker. Patient was admitted to [facility] from 10/12/24 - 10/16/24 for treatment of ILD, and suspected pneumonia. Treated with prednisone taper and empiric antibiotics. Held Imuran with plans for outpatient cellcept. Follows with Dr. Simon. Today, the patient reports he is doing well since being discharged. John was recently hospitalized due to a fever of 101 F and hypotension (90/48 mmHg). He reports improvement since discharge and feels better than when he was in the hospital. He is scheduled to start home-based physical therapy next week. He reports improvement in dyspnea since returning home, but still experiences dyspnea on exertion. He uses a wheelchair for mobility outside the home and only ambulates to the bathroom and bed at home. Prior to hospitalization, he was not ambulating. He reports a chronic cough with whitish sputum, which is normal for him, and denies hemoptysis. He denies chest pain, abdominal pain, fever, or leg swelling. He is a former smoker, having quit in 2001. He is currently on 3 L of oxygen, increasing to 4 L when ambulating to the bathroom. He uses a nebulizer with Pulmicort and DuoNeb, the latter 4 times daily, and takes Mucinex as needed. He is on 5 mg of prednisone, reduced from 10 mg. He completed a course of antibiotics prescribed at discharge. He is awaiting approval for CellCept (mycophenolate mofetil) for ILD management, as his previous medication, Imuran (azathioprine), was discontinued. He is scheduled to see Dr. Simon on the 11 of November and has upcoming pulmonary function tests. 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 He reports a weight of 271 lbs, up from 265 lbs on October 21. He has a home health nurse visiting weekly. Subjective Constitutional: (+) weight loss, (+) increased appetite Respiratory: (+) dyspnea on exertion, (+) cough, (+) white sputum, (-) hemoptysis CV: (-) Chest pain (-) LE edema Current Outpatient Medications Medication Sig Dispense Refill colestipol (COLESTID) 1 gram tablet Take 1 tablet by mouth two times a day. 180 tablet 1 predniSONE (DELTASONE) 5 mg tablet Take 2 tablets by mouth once daily for 2 days, THEN 1 tablet once daily for 21 days. 25 tablet 0 acyclovir (ZOVIRAX) 400 mg tablet TAKE 1 TABLET BY MOUTH EVERY DAY 90 tablet 1 traZODone (DESYREL) 100 mg tablet TAKE 2 TABLETS BY MOUTH EVERY DAY AT BEDTIME 180 tablet 1 isosorbide mononitrate ER (IMDUR) 30 mg 24 hr tablet Take 1 tablet by mouth once daily. 90 tablet 1 gabapentin (NEURONTIN) 300 mg capsule TAKE 2 CAPSULES BY MOUTH EVERY MORNING AND 3 CAPSULES AT BEDTIME FOR 30 DAYS. Strength: 300 mg 150 capsule 2 hydrOXYzine HCl (ATARAX) 25 mg tablet Take 2 tablets by mouth two times a day. 360 tablet 1 budesonide (PULMICORT) 0.5 mg/2 mL nebulizer solution Use 2 mL via nebulizer two times a day. 360 mL 1 ipratropium-albuterol (DUONEB) 0.5 mg-3 mg(2.5 mg base)/3 mL nebu Inhale 3 mL as instructed every 4 hours while awake. 360 mL 5 metoprolol succinate ER (TOPROL XL) 25 mg 24 hr tablet Take 1 tablet by mouth every afternoon. 90 tablet 1 clopidogrel (PLAVIX) 75 mg tablet Take 1 tablet by mouth once daily. [address] (PROTONIX) 40 mg tablet Take 1 tablet by mouth once daily. 90 tablet 1 rosuvastatin (CRESTOR) 20 mg tablet Take 1 tablet by mouth daily at bedtime. 90 tablet 3 lisinopril 2.5 mg tablet Take 1 tablet by mouth two times a day. Hold if SBP less than 110 180 tablet 3 ezetimibe (ZETIA) 10 mg tablet Take 1 tablet by mouth once daily. 90 tablet 3 guaiFENesin (MUCINEX) 600 mg 12 hr tablet Take 1 tablet by mouth two times a day as needed for cold/allergy symptoms. 60 tablet 2 furosemide (LASIX) 40 mg tablet Take 1 tablet by mouth three times a week. 36 tablet 1 escitalopram oxalate (LEXAPRO) 20 mg tablet Take 1 tablet by mouth once daily. 90 tablet 1 OXYGEN, HOME THERAPY, 3 L/min by Nasal Cannula route as directed. fluticasone (FLONASE) 50 mcg/actuation nasal spray spray 1 spray into each nostril every day 48 mL 1 nitroglycerin sublingual (NITROSTAT) 0.4 mg SL tablet Dissolve 1 tablet under the tongue every 5 minutes as needed for chest pain. 25 tablet 0 albuterol sulfate 90 mcg/actuation aebs Inhale 1-2 Puffs as instructed every 4 hours as needed for wheezing/shortness of breath. 1 Each 2 Lactobacillus acidophilus (PROBIOTIC) 10 billion cell cap Take 1 capsule by mouth once daily. acetaminophen (TYLENOL EXTRA STRENGTH) 500 mg tablet Take 2 tablets by mouth every 8 hours as needed for pain. FOR PAIN. 90 tablet 0 Zinc 50 mg tab Take 50 mg by mouth once daily. aspirin, enteric coated (ASPIRIN, ENTERIC COATED) 81 mg EC tablet Take 81 mg by mouth once daily. multivit-min/folic/vit K/lycop (ONE-A-DAY MEN'S MULTIVITAMIN ORAL) Take by mouth once daily. sulfamethoxazole-trimethoprim (BACTRIM DS) 800-160 mg per tablet Take 1 tablet by mouth two times a day for 4 days, THEN 1 tablet daily before breakfast. (Patient not taking: Reported on 10/29/2024) 38 tablet 0 No current facility-administered medications for this visit. I have reviewed and updated the medication list in the EMR. ALLERGIES Allergen Reactions Animal Dander Other: See Comments Anything with fur Seasonal Allergies Other: See Comments Stuffy nose, headaches Objective PHYSICAL EXAMINATION: VITAL SIGNS: BP 126/74 (BP Site: Left Arm, BP Position: Sitting, BP Cuff Size: Large Adult) Pulse 70 Temp 36.5 C (97.7 F) (Temporal) Resp 18 Ht 182.9 cm (6') Wt 123 kg (271 lb 2.7 oz) SpO2 95% BMI 36.78 kg/m O2: 3 L/min NC General appearance: Obese, well appearing, alert, and in no acute distress HEENT: NCAT. Anicteric sclera. Nares normal, septum midline, mucosa normal, no drainage. Lips, tongue, and buccal mucosa pink and moist without cyanosis. Respiratory: Scattered crackles bilaterally Cardiovascular: Regular rate and rhythm no m/r/g Extremities: Warm and well perfused. no peripheral edema. Psych: Cooperative with exam, answers questions appropriately. Neuro: A&O x 3. DATA REVIEW: I have personally reviewed the following: Last CT/CTA Chest/Lungs CT CHEST WO IVCON Exam End: 10/13/2024 9:51 AM (Final result) Narrative: * * *Final Report* * * DATE OF EXAM: Oct 13 2024 9:51AM [facility] [place] CHEST [place] IVCON / PROCEDURE REASON: Aspiration * * * * Physician Interpretation * * * * EXAMINATION: CHEST CT WITHOUT CONTRAST CLINICAL HISTORY: Aspiration. Technique: Spiral CT acquisition of the chest from the thoracic inlet to the upper abdomen without contrast. MQ: [id number] CT Radiation dose: Integrated Dose-length product (DLP) for this visit = 417 mGy*cm CT Dose Reduction Employed: Automated exposure control(AEC) and iterative recon Comparison: CT chest on 07/16/2024 RESULT: Limitations: None. Lines, tubes, and devices: None. Lung parenchyma and airways: The central airways are patent. There is diffuse bronchial wall thickening. The bilateral lungs are remarkable for diffuse reticulations, predominantly involving the prevertebral areas and lung bases. Honeycombing, traction bronchiolectasis and architectural distortion are all visualized. Small scattered groundglass densities visualized. No consolidations. No masses. There are large pericardial fat pads. Pleural space: No pleural effusions or pneumothorax. Lower neck, lymph nodes, and mediastinum: The imaged thyroid gland is normal. No supraclavicular or axillary lymphadenopathy. There are borderline enlarged mediastinal lymph nodes. Heart, pericardium, and thoracic vessels: Dilation of the main pulmonary artery is again noted, measuring 3.7 cm in diameter. There is mild cardiomegaly. Atherosclerotic calcifications seen in the thoracic aorta and coronary circulations. Patient is status post CABG. Bones and soft tissues: There are postoperative changes from median sternotomy. The spine shows degenerative changes. Single level vertebral body wedge-shaped deformity seen in the mid thoracic spine. Upper abdomen: Limited study through the upper abdomen demonstrates multiple gallbladder stones. There is a dilated large bowel loop in the anterior abdomen. Localizer images: No additional findings. Impression: IMPRESSION: Findings are suggestive of interstitial lung disease. The pattern and distribution are compatible with UIP. No new pulmonary infiltrates visualized. Dilation of the main pulmonary artery, likely reflecting underlying pulmonary hypertension. Mild cardiomegaly. Gallbladder stones. Dilated large bowel loop. 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 Although this may be secondary to known pulmonary fibrosis, possibility of superimposed pulmonary edema or infection is not excluded. No evidence of large consolidation, or significant pleural effusion. No evidence of pneumothorax. ... Recent Results (from the past 4464 hours) ECHO Collection Time: 08/26/24 11:45 AM Impression CONCLUSIONS: - Technically difficult exam due to body habitus and suboptimal positioning. - Exam indication: Suspected pulmonary hypertension - The left ventricle is normal in size. There is mild left ventricular hypertrophy. Left ventricular systolic function is normal. EF = 55 5% (visual est.) Definity contrast used for endocardial border detection. Indeterminate left ventricular diastolic function. - The right ventricle is normal in size. Right ventricular systolic function is normal. - The left atrial cavity is mildly dilated. Val 36 ml/m . - There are no significant valvular abnormalities. - Exam was compared with the prior echocardiographic exam performed on 02/20/22. There is no significant change. * * * Final * * * PFT: Last Spirometry SPIROMETRY BASELINE ONLY Collected: 04/27/2024 2:00 PM (Final result) Narrative: [facility] [address] [place] [address] Test Date: 2024-04-27 Pat Name: MARS PETERSON Department: Room: Gender: Male Air Quality Manager: : 1955 Requested By: Order Number: [id number] Reading MD: Francisco Patel MD Interpretive Statements Current ATS/ERS acceptability and repeatability standards for spirometry met. Start of test and EOFE criteria met. Current ATS/ERS acceptability and repeatability standards for DLCO met with 2 acceptable maneuvers. IMPRESSION: Spirometry indicates no obstruction. The reduced FVC could indicate restriction, recommend lung volumes for definitive determination. The diffusing capacity (uncorrected for hemoglobin) is reduced. The kCO (DLCO/VA) reflects a normal transfer/diffusion of CO from the alveolar regions to the blood. Clinical correlation recommended. Electronically Signed On 04-27-2024 16:08:13 EST by Francisco Patel MD ID: [id number] Name: MARS PETERSON Race: White Ht: 72.00 in Wt: 271.00 lbs Age: 68 Gender: Male : 1955 Dx: Chronic respiratory failure with hypoxia Smoking Hx: Non-smoker Doctor: TRU SIMON Test Date: 04/27/2024 Site: Tech: Beba Rose PRE-BRONCH POST-BRONCH Pre LLN Pred ULN %Pred Post %Pred %Chg SPIROMETRY FVC (L) 2.45 3.24 4.35 5.49 56 FEV1 (L) 1.85 2.38 3.26 4.09 56 FEV1/FVC 0.75 0.63 0.76 0.87 99 PEF L/s (L/sec) 7.82 6.28 8.73 11.18 89 FEF50 (L/sec) 2.20 2.25 4.37 6.50 50 FIF50 (L/sec) 5.35 FEF50/FIF50 0.41 90-100 FIVC (L) 2.30 FVE14-93 (L/sec) 1.39 1.09 2.52 4.56 55 Time (sec) 8.22 FET PEF (sec) 0.09 AYM (L) 0.11 Vol Extrap % (%) 5 LUNG DIFFUSION DLCOunc (ml/min/mmHg) 12.44 16.85 26.78 36.72 46 VA (L) 3.22 5.84 7.21 8.57 44 DLunc/VA (ml/min/mmHg/L) 3.86 2.59 3.79 5.00 101 BHT (sec) 9.82 IVC (L) 2.18 Comments: Current ATS/ERS acceptability and repeatability standards for spirometry met. Start of test and EOFE criteria met. Current ATS/ERS acceptability and repeatability standards for DLCO met with 2 acceptable maneuvers. ASSESSMENT & PLAN: 1. Hospital discharge follow-up (Z09) - Recent hospitalization for fever and hypotension; treated with higher dose prednisone and antibiotics. - Completed antibiotic course. - Scheduled follow-up with Dr. Simon on the 11 of November. - Scheduled pulmonary function tests. - Home health nurse visits weekly. 2. 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 - Imuran stopped in hospital - Awaiting approval for CellCept; will follow up with Dr. Simon regarding insurance approval. - Using nebulizer treatments with Pulmicort and DuoNeb four times daily; rinsing mouth post-inhalation to prevent oral thrush. - Mucinex as needed for expectoration. - Advised to report any worsening symptoms immediately. 4. Chronic hypoxemic respiratory failure (HCC) (J96.11) - Oxygen therapy at 3 L/min, increased to 4 L/min during exertion. - Using and benefiting from home O2 5. Former smoker (Z87.891) - Abstinent from smoking for over 23 years. I have discussed the above recommendations in detail with the patient. Patient verbalizes understanding and is in agreement with plan as stated above. Return if symptoms worsen or fail to improve. Follow-up as scheduled November [address] Simon. Recording using [employer] software for draft documentation of the visit was discussed with the patient/authorized sales promotion representative; all questions welcomed and answered. Patient/authorized sales promotion representative agreed to proceed Tru Lucas PA-C October 29, 2024 documented in this encounter [facility] 10-29-2024 Note [facility] 10-26-2024 Telephone encounter Note Patient requesting refills: Last office visit 07/14/2024. Last refill 03/31/2024. Requested Prescriptions Pending Prescriptions Disp Refills colestipol (COLESTID) 1 gram tablet 180 tablet 1 Sig: Take 1 tablet by mouth two times a day. Please review and advise. Suzanne Almaguer MA [facility] 10-26-2024 Miscellaneous Notes Patient requesting refills: Last office visit 07/14/2024. Last refill 03/31/2024. Requested Prescriptions Pending Prescriptions Disp Refills colestipol (COLESTID) 1 gram tablet 180 tablet 1 Sig: Take 1 tablet by mouth two times a day. Please review and advise. Suzanne Almaguer MA documented in this encounter [facility] 10-21-2024 Note HNO ID: [id number] Author: BEAR HIDALGO PA-C Service: ? Author Type: Physician Threshing Machine Operator Type: Progress Notes Filed: 10/21/2024 11:49 Note Text: ORTHOPAEDIC OFFICE NOTE CHIEF COMPLAINT: Established Patient of the Right Hand (Denies pain) HISTORY OF PRESENT ILLNESS John Peterson is a 69-year-old male presenting for follow-up of a right hand boxer's fracture. John is 4.5 weeks post-injury from a right hand boxer's fracture and has been in an ulnar gutter cast since the last visit. He reports that his hand feels good and denies significant pain, noting only minimal discomfort when pressure is applied. He is able to make a fist with minimal stiffness in the ring and small fingers. John mentions that the cast was cumbersome, making it difficult to use his walker. He was recently hospitalized for sepsis and was discharged on 10/16/2024. He reports feeling better since being discharged. Reviewed nursing note and current pain scale. PAIN EVALUATION No data found in the last 1 encounters. 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 Peripheral vascular disease Right hand pain S/P CABG (coronary artery bypass graft) Umbilical hernia PAST SURGICAL HISTORY Procedure Laterality Date BACK SURGERY HX 2017 CABG (1) VEIN GRAFT AND ARTERIAL GRAFT 2001 CABG x4 COLONOSCOPY 2007 FINGER AMPUTATION (SPECIFY DIGIT) HX HIP SURGERY HX 1999 1999, 2019 Replacement Right and left LEG AMPUTATION HX Right 2018 PAST SURGICAL HISTORY OF coccyx for pilonidal cyst REMV CATARACT EXTRACAP,INSERT LENS Bilateral Social History Tobacco Use Smoking status: Former Current packs/day: 0.00 Average packs/day: 2.0 packs/day for 40.0 years (80.0 ttl pk-yrs) Types: Cigarettes Start date: 05/13/1961 Quit date: 05/13/2001 Years since quittin.4 Smokeless tobacco: Former Types: Chew Vaping Use Vaping status: Never Used Substance Use Topics Alcohol use: Yes Alcohol/week: 10.0 standard drinks of alcohol Types: 10 Cans of beer per week Drug use: Never Current Outpatient Medications Medication Sig potassium chloride ER (KLOR-CON) 20 mEq tablet Take 1 tablet by mouth two times a day for 6 days. sulfamethoxazole-trimethoprim (BACTRIM DS) 800-160 mg per tablet Take 1 tablet by mouth two times a day for 4 days, THEN 1 tablet daily before breakfast. predniSONE (DELTASONE) 5 mg tablet Take 2 tablets by mouth once daily for 2 days, THEN 1 tablet once daily for 21 days. acyclovir (ZOVIRAX) 400 mg tablet TAKE 1 TABLET BY MOUTH EVERY DAY traZODone (DESYREL) 100 mg tablet TAKE 2 TABLETS BY MOUTH EVERY DAY AT BEDTIME isosorbide mononitrate ER (IMDUR) 30 mg 24 hr tablet Take 1 tablet by mouth once daily. hydrOXYzine HCl (ATARAX) 25 mg tablet Take 2 tablets by mouth two times a day. budesonide (PULMICORT) 0.5 mg/2 mL nebulizer solution Use 2 mL via nebulizer two times a day. ipratropium-albuterol (DUONEB) 0.5 mg-3 mg(2.5 mg base)/3 mL nebu Inhale 3 mL as instructed every 4 hours while awake. metoprolol succinate ER (TOPROL XL) 25 mg 24 hr tablet Take 1 tablet by mouth every afternoon. clopidogrel (PLAVIX) 75 mg tablet Take 1 tablet by mouth once daily. pantoprazole DR (PROTONIX) 40 mg tablet Take 1 tablet by mouth once daily. rosuvastatin (CRESTOR) 20 mg tablet Take 1 tablet by mouth daily at bedtime. lisinopril 2.5 mg tablet Take 1 tablet by mouth two times a day. Hold if SBP less than 110 ezetimibe (ZETIA) 10 mg tablet Take 1 tablet by mouth once daily. guaiFENesin (MUCINEX) 600 mg 12 hr tablet Take 1 tablet by mouth two times a day as needed for cold/allergy symptoms. furosemide (LASIX) 40 mg tablet Take 1 tablet by mouth three times a week. escitalopram oxalate (LEXAPRO) 20 mg tablet Take 1 tablet by mouth once daily. colestipol (COLESTID) 1 gram tablet Take 1 tablet by mouth two times a day. OXYGEN, HOME THERAPY, 3 L/min by Nasal Cannula route as directed. fluticasone (FLONASE) 50 mcg/actuation nasal spray spray 1 spray into each nostril every day nitroglycerin sublingual (NITROSTAT) 0.4 mg SL tablet Dissolve 1 tablet under the tongue every 5 minutes as needed for chest pain. albuterol sulfate 90 mcg/actuation aebs Inhale 1-2 Puffs as instructed every 4 hours as needed for wheezing/shortness of breath. Lactobacillus acidophilus (PROBIOTIC) 10 billion cell cap Take 1 capsule by mouth once daily. acetaminophen (TYLENOL EXTRA STRENGTH) 500 mg tablet Take 2 tablets by mouth every 8 hours as needed for pain. FOR PAIN. Zinc 50 mg tab T (more content not included)... [facility] 10-21-2024 History of Presen t illness Narrative Images from the original note were not included. ORTHOPAEDIC OFFICE NOTE CHIEF COMPLAINT: Established Patient of the Right Hand (Denies pain) HISTORY OF PRESENT ILLNESS John Peterson is a 69-year-old male presenting for follow-up of a right hand boxer's fracture. John is 4.5 weeks post-injury from a right hand boxer's fracture and has been in an ulnar gutter cast since the last visit. He reports that his hand feels good and denies significant pain, noting only minimal discomfort when pressure is applied. He is able to make a fist with minimal stiffness in the ring and small fingers. John mentions that the cast was cumbersome, making it difficult to use his walker. He was recently hospitalized for sepsis and was discharged on 10/16/2024. He reports feeling better since being discharged. Reviewed nursing note and current pain scale. PAIN EVALUATION No data found in the last 1 encounters. 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 Peripheral vascular disease Right hand pain S/P CABG (coronary artery bypass graft) Umbilical hernia PAST SURGICAL HISTORY Procedure Laterality Date BACK SURGERY HX 2017 CABG (1) VEIN GRAFT & ARTERIAL GRAFT 2001 CABG x4 COLONOSCOPY 2007 FINGER AMPUTATION (SPECIFY DIGIT) HX HIP SURGERY HX 1999 1999, 2019 Replacement Right and left LEG AMPUTATION HX Right 2018 PAST SURGICAL HISTORY OF coccyx for pilonidal cyst REMV CATARACT EXTRACAP,INSERT LENS Bilateral Social History Tobacco Use Smoking status: Former Current packs/day: 0.00 Average packs/day: 2.0 packs/day for 40.0 years (80.0 ttl pk-yrs) Types: Cigarettes Start date: 05/13/1961 Quit date: 05/13/2001 Years since quittin.4 Smokeless tobacco: Former Types: Chew Vaping Use Vaping status: Never Used Substance Use Topics Alcohol use: Yes Alcohol/week: 10.0 standard drinks of alcohol Types: 10 Cans of beer per week Drug use: Never Current Outpatient Medications Medication Sig potassium chloride ER (KLOR-CON) 20 mEq tablet Take 1 tablet by mouth two times a day for 6 days. sulfamethoxazole-trimethoprim (BACTRIM DS) 800-160 mg per tablet Take 1 tablet by mouth two times a day for 4 days, THEN 1 tablet daily before breakfast. predniSONE (DELTASONE) 5 mg tablet Take 2 tablets by mouth once daily for 2 days, THEN 1 tablet once daily for 21 days. acyclovir (ZOVIRAX) 400 mg tablet TAKE 1 TABLET BY MOUTH EVERY DAY traZODone (DESYREL) 100 mg tablet TAKE 2 TABLETS BY MOUTH EVERY DAY AT BEDTIME isosorbide mononitrate ER (IMDUR) 30 mg 24 hr tablet Take 1 tablet by mouth once daily. hydrOXYzine HCl (ATARAX) 25 mg tablet Take 2 tablets by mouth two times a day. budesonide (PULMICORT) 0.5 mg/2 mL nebulizer solution Use 2 mL via nebulizer two times a day. ipratropium-albuterol (DUONEB) 0.5 mg-3 mg(2.5 mg base)/3 mL nebu Inhale 3 mL as instructed every 4 hours while awake. metoprolol succinate ER (TOPROL XL) 25 mg 24 hr tablet Take 1 tablet by mouth every afternoon. clopidogrel (PLAVIX) 75 mg tablet Take 1 tablet by mouth once daily. pantoprazole DR (PROTONIX) 40 mg tablet Take 1 tablet by mouth once daily. rosuvastatin (CRESTOR) 20 mg tablet Take 1 tablet by mouth daily at bedtime. lisinopril 2.5 mg tablet Take 1 tablet by mouth two times a day. Hold if SBP less than 110 ezetimibe (ZETIA) 10 mg tablet Take 1 tablet by mouth once daily. guaiFENesin (MUCINEX) 600 mg 12 hr tablet Take 1 tablet by mouth two times a day as needed for cold/allergy symptoms. furosemide (LASIX) 40 mg tablet Take 1 tablet by mouth three times a week. escitalopram oxalate (LEXAPRO) 20 mg tablet Take 1 tablet by mouth once daily. colestipol (COLESTID) 1 gram tablet Take 1 tablet by mouth two times a day. OXYGEN, HOME THERAPY, 3 L/min by Nasal Cannula route as directed. fluticasone (FLONASE) 50 mcg/actuation nasal spray spray 1 spray into each nostril every day nitroglycerin sublingual (NITROSTAT) 0.4 mg SL tablet Dissolve 1 tablet under the tongue every 5 minutes as needed for chest pain. albuterol sulfate 90 mcg/actuation aebs Inhale 1-2 Puffs as instructed every 4 hours as needed for wheezing/shortness of breath. Lactobacillus acidophilus (PROBIOTIC) 10 billion cell cap Take 1 capsule by mouth once daily. acetaminophen (TYLENOL EXTRA STRENGTH) 500 mg tablet Take 2 tablets by mouth every 8 hours as needed for pain. FOR PAIN. Zinc 50 mg tab Take 50 mg by mouth once daily. aspirin, enteric coated (ASPIRIN, ENTERIC COATED) 81 mg EC tablet Take 81 mg by mouth once daily. multivit-min/folic/vit K/lycop (ONE-A-DAY MEN'S MULTIVITAMIN ORAL) Take by mouth once daily. gabapentin (NEURONTIN) 300 mg capsule TAKE 2 CAPSULES BY MOUTH EVERY MORNING AND 3 CAPSULES AT BEDTIME FOR 30 DAYS. Strength: 300 mg No current facility-administered medications for this visit. ALLERGIES Allergen Reactions Animal Dander Other: See Comments Anything with fur Seasonal Allergies Other: See Comments Stuffy nose, headaches Resp 20 Ht 6' 0" (1.83m) Wt 265 lb (120.2kg) BMI 35.93 kg/(m^2). Review of systems: Musculoskeletal: (+) right hand pain EXAM: - Musculoskeletal: - Right Hand: - Resolving ecchymosis noted on small and ring fingers; no swelling. - Minimal to no tenderness over right small finger metacarpal neck or head; minimal to no tenderness at right small finger MCP joint. - Able to make almost a full fist; very minimal stiffness of ring and small fingers noted- able to reach tip of ring and small fingertips to palm. - Cardiovascular: 2+ radial pulse; capillary refill <3 seconds. - Neurological: Full sensation intact to all fingers. Imaging: (10/21/2024) Radiograph (3 views) of the right hand: - Closed, displaced right fifth metacarpal neck fracture with mild impaction and shortening, displacement, and volar angulation. Slight comminution with a small fragment along the radial margin. Evidence of bone consolidation when compared to previous imaging. No significant change in fracture position when compared to previous imaging. ASSESSMENT: (C42.813Z) Closed boxer's fracture with routine healing, subsequent encounter (primary encounter diagnosis) PLAN: 1. Closed boxer's fracture with routine healing, subsequent encounter - Dispensed wrist cock up splint for protective purposes and advised to wear it at discretion over the next 1-2 weeks, especially when using a walker, and then discontinue completely. - Encouraged to work on regaining full motion of wrist and fingers at home. - You have no restrictions. Ease back into normal activity as you tolerate. Follow-up needed INSTRUCTIONS: We discussed your right hand boxer fracture: - Your cast was removed today, and x-rays show good bone healing with evidence of consolidation. The fracture is still visible but healing well, and there is no significant change in the fracture position compared to previous imaging. - On examination, you have minimal to no tenderness, no swelling, and only slight stiffness in your ring and small fingers. You are almost able to make a full fist, which is a great sign of recovery. - You will notice that the knuckle of your small finger appears less prominent (blunted) compared to the others. This is due to the fracture and is expected. It will not affect the function of your hand. - I provided you with a Velcro splint to wear as needed for the next 1-2 weeks, especially during activities like using your walker. You do not need to wear it all the time and should stop using it completely after 2 weeks. - You can remove the splint for activities like showering and when you feel comfortable without it. - At home, continue working on improving your hand motion. Squeezing a ball is a great exercise to help regain strength and flexibility. - You have no activity restrictions and can gradually return to normal use of your hand. Follow-Up: - You do not need to schedule a follow-up appointment unless you experience new or worsening symptoms. Please call our office if you have any concerns. This note was generated via [employer] technology and [employer] voice dictation and may contain errors related to that system such as spelling, grammar, punctuation, gender, words, and phrases that may be inappropriate. All reasonable efforts were made to correct dictation errors, however, they still may occur given the software used. Bear GIL PA-C [facility] .ago PT ASSESSMENT - CASTING ROOM Mars presents for Application of Cockup wrist splint. Patient has been instructed in Care and proper application of brace.. Patient to keep follow up appointment as scheduled. Buddy Canales LPN documented in this encounter [facility] 10-21-2024 Note HNO ID: [id number] Author: JOSE RAFAEL PELAEZ Tech Service: ? Author Type: Air Quality Manager Type: Progress Notes Filed: 10/21/2024 11:49 Note Text: .ago [facility] 10-21-2024 Note HNO ID: [id number] Author: BUDDY CANALES LPN Service: ? Author Type: LICENSED NURSE Type: Progress Notes Filed: 10/21/2024 11:49 Note Text: PT ASSESSMENT - CASTING ROOM Mars presents for Application of Cockup wrist splint. Patient has been instructed in Care and proper application of brace.. Patient to keep follow up appointment as scheduled. Buddy Canales LPN [facility] 10-19-2024 Note HNO ID: [id number] Author: LILIAN SETHI RN Service: ? Author Type: Registered Nurse Type: Progress Notes Filed: 10/19/2024 10:44 Note Text: TRANSITIONAL CARE MANAGEMENT (TCM) COMMUNITY MONITORING PROGRAM - [place] SUMMARY: Pt discharged from [facility] on 10/16/24. RISK 24 Admitted for: Sepsis PNA Patient seen Inpatient [facility] Visit? N/A. Patient seen ICARE Program? N/A. Contact made with patient: Yes Hi my name is Lilian Sethi RN and I am calling from the [facility] on behalf of your PCP, Alma Gill APRN.TAG MACHINE OPERATOR I understand you were recently in the hospital so I am calling to check in with you to ensure you are feeling well now that you?re home. Do you mind if I ask you a few questions related to your hospital stay and well-being Yes Contact with patient post discharge, spoke to spouse. Patient identified by name and . Do you feel your health is BETTER, WORSE, or the SAME since leaving the hospital? Better ACTION TAKEN: Patient indicated symptoms are better or same, no action required. Continue outreach. PNA: Did you see speech therapy in the hospital? No Do you have a dentist? No. Pt doesn't have any teeth. He doesn't have dentures. Oral care education provided? Yes. MEDICATIONS: Many patients have questions or concerns about their medications once they are home. Do you have any questions about taking your medications or which medication you should be on? No Do you need any medication refills at this time, including any of the medications you might take only when needed? No ACTION TAKEN: No action required For RNs or Pharmacy completing outreach ONLY, was a medication review completed? Yes Current/Discharged Medications reviewed: Yes Medication List Medication Directions Comments acetaminophen (TYLENOL EXTRA STRENGTH) 500 mg tablet Take 2 tablets by mouth every 8 hours as needed for pain. FOR PAIN. Verified acyclovir (ZOVIRAX) 400 mg tablet TAKE 1 TABLET BY MOUTH EVERY DAY Verified albuterol sulfate 90 mcg/actuation aebs Inhale 1-2 Puffs as instructed every 4 hours as needed for wheezing/shortness of breath. Verified aspirin, enteric coated (ASPIRIN, ENTERIC COATED) 81 mg EC tablet Take 81 mg by mouth once daily. Verified budesonide (PULMICORT) 0.5 mg/2 mL nebulizer solution Use 2 mL via nebulizer two times a day. Verified cefdinir (OMNICEF) 300 mg capsule Take 1 capsule by mouth two times a day for 6 doses. Patient should start on October 17, 2024. Verified clopidogrel (PLAVIX) 75 mg tablet Take 1 tablet by mouth once daily. Verified colestipol (COLESTID) 1 gram tablet Take 1 tablet by mouth two times a day. Verified escitalopram oxalate (LEXAPRO) 20 mg tablet Take 1 tablet by mouth once daily. Verified ezetimibe (ZETIA) 10 mg tablet Take 1 tablet by mouth once daily. Verified fluticasone (FLONASE) 50 mcg/actuation nasal spray spray 1 spray into each nostril every day Verified furosemide (LASIX) 40 mg tablet Take 1 tablet by mouth three times a week. Verified gabapentin (NEURONTIN) 300 mg capsule TAKE 2 CAPSULES BY MOUTH EVERY MORNING AND 3 CAPSULES AT BEDTIME FOR 30 DAYS. Strength: 300 mg Verified guaiFENesin (MUCINEX) 600 mg 12 hr tablet Take 1 tablet by mouth two times a day as needed for cold/allergy symptoms. Verified hydrOXYzine HCl (ATARAX) 25 mg tablet Take 2 tablets by mouth two times a day. Verified ipratropium-albuterol (DUONEB) 0.5 mg-3 mg(2.5 mg base)/3 mL nebu Inhale 3 mL as instructed every 4 hours while awake. Verified isosorbide mononitrate ER (IMDUR) 30 mg 24 hr tablet Take 1 tablet by mouth once daily. Verified Lactobacillus acidophilus (PROBIOTIC) 10 billion cell cap Take 1 capsule by mouth once daily. Patient not taking: Reported on 10/19/2024 Pt doesn't take this med lisinopril 2.5 mg tablet Take 1 tablet by mouth two times a day. Hold if SBP less than 110 Verified metoprolol succinate ER (TOPROL XL) 25 mg 24 hr tablet Take 1 tablet by mouth every afternoon. Verified multivit-min/folic/vit K/lycop (ONE-A-DAY MEN'S MULTIVITAMIN ORAL) Take by mouth once daily. Verified mupirocin (BACTROBAN) 2 % ointment Apply to affected area three times a day for 8 doses. Verified nitroglycerin sublingual (NITROSTAT) 0.4 mg SL tablet Dissolve 1 tablet under the tongue every 5 minutes as needed for chest pain. Verified pantoprazole DR (PROTONIX) 40 mg tablet Take 1 tablet by mouth once daily. Verified potassium chloride ER (KLOR-CON) 20 mEq tablet Take 1 tablet by mouth two times a day for 6 days. Verified predniSONE (DELTASONE) 5 mg tablet Take 2 tablets by mouth once daily for 2 days, THEN 1 tablet once daily for 21 days. Verified rosuvastatin (CRESTOR) 20 mg tablet Take 1 tablet by mouth daily at bedtime. Verified sulfamethoxazole-trimethoprim (BACTRIM DS) 800-160 mg per tablet Take 1 tablet by mouth two times a day for 4 days, THEN 1 tablet daily before breakfast. Verified (more content not included)... [facility] 10-19-2024 History of Presen t illness Narrative TRANSITIONAL CARE MANAGEMENT (TCM) COMMUNITY MONITORING PROGRAM - [place] SUMMARY: Pt discharged from [facility] on 10/16/24. RISK 24 Admitted for: Sepsis PNA Patient seen Inpatient [facility] Visit? N/A. Patient seen ICARE Program? N/A. Contact made with patient: Yes Hi my name is Lilian Sethi RN and I am calling from the [facility] on behalf of your PCP, Alma Gill APRN.TAG MACHINE OPERATOR I understand you were recently in the hospital so I am calling to check in with you to ensure you are feeling well now that you re home. Do you mind if I ask you a few questions related to your hospital stay and well-being Yes Contact with patient post discharge, spoke to spouse. Patient identified by name and . Do you feel your health is BETTER, WORSE, or the SAME since leaving the hospital? Better ACTION TAKEN: Patient indicated symptoms are better or same, no action required. Continue outreach. PNA: Did you see speech therapy in the hospital? No Do you have a dentist? No. Pt doesn't have any teeth. He doesn't have dentures. Oral care education provided? Yes. MEDICATIONS: Many patients have questions or concerns about their medications once they are home. Do you have any questions about taking your medications or which medication you should be on? No Do you need any medication refills at this time, including any of the medications you might take only when needed? No ACTION TAKEN: No action required For RNs or Pharmacy completing outreach ONLY, was a medication review completed? Yes Current/Discharged Medications reviewed: Yes Medication List Medication Directions Comments acetaminophen (TYLENOL EXTRA STRENGTH) 500 mg tablet Take 2 tablets by mouth every 8 hours as needed for pain. FOR PAIN. Verified acyclovir (ZOVIRAX) 400 mg tablet TAKE 1 TABLET BY MOUTH EVERY DAY Verified albuterol sulfate 90 mcg/actuation aebs Inhale 1-2 Puffs as instructed every 4 hours as needed for wheezing/shortness of breath. Verified aspirin, enteric coated (ASPIRIN, ENTERIC COATED) 81 mg EC tablet Take 81 mg by mouth once daily. Verified budesonide (PULMICORT) 0.5 mg/2 mL nebulizer solution Use 2 mL via nebulizer two times a day. Verified cefdinir (OMNICEF) 300 mg capsule Take 1 capsule by mouth two times a day for 6 doses. Patient should start on October 17, 2024. Verified clopidogrel (PLAVIX) 75 mg tablet Take 1 tablet by mouth once daily. Verified colestipol (COLESTID) 1 gram tablet Take 1 tablet by mouth two times a day. Verified escitalopram oxalate (LEXAPRO) 20 mg tablet Take 1 tablet by mouth once daily. Verified ezetimibe (ZETIA) 10 mg tablet Take 1 tablet by mouth once daily. Verified fluticasone (FLONASE) 50 mcg/actuation nasal spray spray 1 spray into each nostril every day Verified furosemide (LASIX) 40 mg tablet Take 1 tablet by mouth three times a week. Verified gabapentin (NEURONTIN) 300 mg capsule TAKE 2 CAPSULES BY MOUTH EVERY MORNING AND 3 CAPSULES AT BEDTIME FOR 30 DAYS. Strength: 300 mg Verified guaiFENesin (MUCINEX) 600 mg 12 hr tablet Take 1 tablet by mouth two times a day as needed for cold/allergy symptoms. Verified hydrOXYzine HCl (ATARAX) 25 mg tablet Take 2 tablets by mouth two times a day. Verified ipratropium-albuterol (DUONEB) 0.5 mg-3 mg(2.5 mg base)/3 mL nebu Inhale 3 mL as instructed every 4 hours while awake. Verified isosorbide mononitrate ER (IMDUR) 30 mg 24 hr tablet Take 1 tablet by mouth once daily. Verified Lactobacillus acidophilus (PROBIOTIC) 10 billion cell cap Take 1 capsule by mouth once daily. Patient not taking: Reported on 10/19/2024 Pt doesn't take this med lisinopril 2.5 mg tablet Take 1 tablet by mouth two times a day. Hold if SBP less than 110 Verified metoprolol succinate ER (TOPROL XL) 25 mg 24 hr tablet Take 1 tablet by mouth every afternoon. Verified multivit-min/folic/vit K/lycop (ONE-A-DAY MEN'S MULTIVITAMIN ORAL) Take by mouth once daily. Verified mupirocin (BACTROBAN) 2 % ointment Apply to affected area three times a day for 8 doses. Verified nitroglycerin sublingual (NITROSTAT) 0.4 mg SL tablet Dissolve 1 tablet under the tongue every 5 minutes as needed for chest pain. Verified pantoprazole DR (PROTONIX) 40 mg tablet Take 1 tablet by mouth once daily. Verified potassium chloride ER (KLOR-CON) 20 mEq tablet Take 1 tablet by mouth two times a day for 6 days. Verified predniSONE (DELTASONE) 5 mg tablet Take 2 tablets by mouth once daily for 2 days, THEN 1 tablet once daily for 21 days. Verified rosuvastatin (CRESTOR) 20 mg tablet Take 1 tablet by mouth daily at bedtime. Verified sulfamethoxazole-trimethoprim (BACTRIM DS) 800-160 mg per tablet Take 1 tablet by mouth two times a day for 4 days, THEN 1 tablet daily before breakfast. Verified traZODone (DESYREL) 100 mg tablet TAKE 2 TABLETS BY MOUTH EVERY DAY AT BEDTIME Verified Zinc 50 mg tab Take 50 mg by mouth once daily. Verified SOCIAL: We would like to make sure you have what you need so that your basics needs are met - including your personal safety. HEALTH LEADS SCREENING TOOL QUESTIONS: Do you often feel you lack companionship? No Do you ever need help reading or understanding hospital materials? Yes Pt's states that he doesn't read anymore. She helps him. In the last 12 months, have you changed how you take medications to save money? No In the past 12 months, has lack of transportation kept you from medical appointments, work or getting things you need like food, or supplies? No In the last 12 months, did you ever eat less than you felt you should because there wasn't enough money for food? No During the winter, do you anticipate having a problem paying your heating bill? No In the next 2 months, are you worried you might not have stable housing? No Would you like to speak with a social work receiving team member to help give you support for any of these needs? No It can be normal to feel anxious or down during a time like this. Would you like to talk to a mental health professional about how you have been feeling? No ACTION TAKEN: No action taken DISCHARGE INTRUCTIONS: Your discharge instructions / After Visit Summary (AVS) are important in guiding you through the recovery process. Do you have any questions related to your discharge instructions? No Do you have all the necessary equipment and supplies at home? Yes ACTION TAKEN: No action required WRAP AROUND SERVICES: N/A Patient educated on importance of primary care provider follow up visit as well as specialty provider follow up visits as indicated. Inform the patient that if they have any questions or concerns prior to that appointment, to call their Primary Care Provider 's office right away. Primary care provider first education provided. I would like to help you schedule a hospital follow-up virtual or telephone visit with your PCP. ACTION TAKEN: TCM Primary Care Provider Visit Scheduled: Yes - Appt date: 11/10/24 at 3:20p with Claudio Gill NP (PCP). Pt will see Pulm on 10/29/24 and 11/11/24. Lilian Sethi RN documented in this encounter [facility] 10-19-2024 Note Patient Outreach (AG ACM) MARS PETERSON ([id number]) 1955 M DEF Date Time Provider Department 10/19/24 LILIAN SETHI [facility] During your visit today, we recorded the following information about you: Lilian Sethi RN 10/19/2024 10:44 AM Signed TRANSITIONAL CARE MANAGEMENT (TCM) COMMUNITY MONITORING PROGRAM - [place] SUMMARY: Pt discharged from [facility] on 10/16/24. RISK 24 Admitted for: Sepsis PNA Patient seen Inpatient SANTANA Visit? N/A. Patient seen ICARE Program? N/A. Contact made with patient: Yes Hi my name is Lilian Sethi RN and I am calling from the [facility] on behalf of your PCP, Alma Gill APRN.TAG MACHINE OPERATOR I understand you were recently in the hospital so I am calling to check in with you to ensure you are feeling well now that you?re home. Do you mind if I ask you a few questions related to your hospital stay and well-being Yes Contact with patient post discharge, spoke to spouse. Patient identified by name and . Do you feel your health is BETTER, WORSE, or the SAME since leaving the hospital? Better ACTION TAKEN: Patient indicated symptoms are better or same, no action required. Continue outreach. PNA: Did you see speech therapy in the hospital? No Do you have a dentist? No. Pt doesn't have any teeth. He doesn't have dentures. Oral care education provided? Yes. MEDICATIONS: Many patients have questions or concerns about their medications once they are home. Do you have any questions about taking your medications or which medication you should be on? No Do you need any medication refills at this time, including any of the medications you might take only when needed? No ACTION TAKEN: No action required For RNs or Pharmacy completing outreach ONLY, was a medication review completed? Yes Current/Discharged Medications reviewed: Yes Medication List Medication Directions Comments acetaminophen (TYLENOL EXTRA STRENGTH) 500 mg tablet Take 2 tablets by mouth every 8 hours as needed for pain. FOR PAIN. Verified acyclovir (ZOVIRAX) 400 mg tablet TAKE 1 TABLET BY MOUTH EVERY DAY Verified albuterol sulfate 90 mcg/actuation aebs Inhale 1-2 Puffs as instructed every 4 hours as needed for wheezing/shortness of breath. Verified aspirin, enteric coated (ASPIRIN, ENTERIC COATED) 81 mg EC tablet Take 81 mg by mouth once daily. Verified budesonide (PULMICORT) 0.5 mg/2 mL nebulizer solution Use 2 mL via nebulizer two times a day. Verified cefdinir (OMNICEF) 300 mg capsule Take 1 capsule by mouth two times a day for 6 doses. Patient should start on October 17, 2024. Verified clopidogrel (PLAVIX) 75 mg tablet Take 1 tablet by mouth once daily. Verified colestipol (COLESTID) 1 gram tablet Take 1 tablet by mouth two times a day. Verified escitalopram oxalate (LEXAPRO) 20 mg tablet Take 1 tablet by mouth once daily. Verified ezetimibe (ZETIA) 10 mg tablet Take 1 tablet by mouth once daily. Verified fluticasone (FLONASE) 50 mcg/actuation nasal spray spray 1 spray into each nostril every day Verified furosemide (LASIX) 40 mg tablet Take 1 tablet by mouth three times a week. Verified gabapentin (NEURONTIN) 300 mg capsule TAKE 2 CAPSULES BY MOUTH EVERY MORNING AND 3 CAPSULES AT BEDTIME FOR 30 DAYS. Strength: 300 mg Verified guaiFENesin (MUCINEX) 600 mg 12 hr tablet Take 1 tablet by mouth two times a day as needed for cold/allergy symptoms. Verified hydrOXYzine HCl (ATARAX) 25 mg tablet Take 2 tablets by mouth two times a day. Verified ipratropium-albuterol (DUONEB) 0.5 mg-3 mg(2.5 mg base)/3 mL nebu Inhale 3 mL as instructed every 4 hours while awake. Verified isosorbide mononitrate ER (IMDUR) 30 mg 24 hr tablet Take 1 tablet by mouth once daily. Verified Lactobacillus acidophilus (PROBIOTIC) 10 billion cell cap Take 1 capsule by mouth once daily. Patient not taking: Reported on 10/19/2024 Pt doesn't take this med lisinopril 2.5 mg tablet Take 1 tablet by mouth two times a day. Hold if SBP less than 110 Verified metoprolol succinate ER (TOPROL XL) 25 mg 24 hr tablet Take 1 tablet by mouth every afternoon. Verified multivit-min/folic/vit K/lycop (ONE-A-DAY MEN'S MULTIVITAMIN ORAL) Take by mouth once daily. Verified mupirocin (BACTROBAN) 2 % ointment Apply to affected area three times a day for 8 doses. Verified nitroglycerin sublingual (NITROSTAT) 0.4 mg SL tablet Dissolve 1 tablet under the tongue every 5 minutes as needed for chest pain. Verified pantoprazole DR (PROTONIX) 40 mg tablet Take 1 tablet by mouth once daily. Verified potassium chloride ER (KLOR-CON) 20 mEq tablet Take 1 tablet by mouth two times a day for 6 days. Verified predniSONE (DELTASONE) 5 mg tablet Take 2 tablets by mouth once daily for 2 days, THEN 1 tablet once daily for 21 days. Verified rosuvastatin (CRESTOR) 20 mg tablet Take 1 tablet by mouth daily at bedt (more content not included)... [facility] 10-16-2024 Note HNO ID: [id number] Author: TRINH PERALTA RN Service: Care Management Author Type: Registered Nurse Type: Care Mgt Progress Note Filed: 10/16/2024 11:39 Note Text: CARE MANAGEMENT DISCHARGE NOTE SERVICE DATE: October 16, 2024 SERVICE TIME: 11:35 AM Admission Date: 10/12/2024 LOS: 3 days Discharge Arrangement Discharge Arrangement: Home with Home Health, Home with Relative Services Arranged Medical Services: Skilled Home Health Care Type: Home Health Agency, Shelter, Physical Therapy, Occupational Therapy Provider Name: [facility] Caregiver Assessment Caregiver is ready, willing and able to meet the patient's needs as recommended by the inter-professional team: Yes Name of Caregiver: [facility] and spouse assist as needed. Transportation Arrangements Transportation Arrangements: Car Date of Trip: 10/16/24 Time of Trip: 1400 Destination: Home Handoff Communication: Handoff to: Primary Care Physician Primary Care Physician Name/Phone: Alma Gill APRN.[facility]/[phone] Discharge Information Row Name Admission (Current) from 10/12/2024 in [facility] Start of Care -- Within 48 hours of discharge Discharge order is written. RN NUSRAT met with the patient at bedside to discuss discharge plans. He continues to decline SNF and plans on returning home with resumption of [facility]. [facility] was updated on discharge and confirmed they are able to resume services. The patient's spouse will be driving him home and per the patient, will have the patient's portable Oxygen for transport. SIGNATURE: Trinh Peralta RN PATIENT NAME: Mars Peterson DATE: October 16, 2024 TIME: 11:35 AM [facility] 10-16-2024 Note HNO ID: [id number] Author: AGUSTÍN HERNÁNDEZ MD Service: Hospital Medicine Author Type: Physician Type: Progress Notes Filed: 10/16/2024 10:46 Note Text: DEPARTMENT OF HOSPITAL MEDICINE PROGRESS NOTE SERVICE DATE: 10/16/2024 SERVICE TIME: 10:39 AM Hospital Medicine/Primary Attending: Agustín Hernández MD NIGHT AND WEEKEND COVERAGE: [place] COVERAGE: Nights: [phone], please page [facility] Night coverage pager [phone]. Probable discharge: 10/17 Disposition: Home health care Consultants: Dr. Johnson for infectious disease Dr. HOLLOWAY for pulmonology PROCEDURES: NONE CODE STATUS: Full code ACCEPTS BLOOD PRODUCTS: YES : ASSESSMENT/PLAN Reason for Admission: Oxygen dependent patient with interstitial fibrosis on Imuran with fever over 100 degrees diarrhea and increased cough Anticoagulation: Prior to admission:Aspirin and Plavix Current: Aspirin and Plavix-heparin 7500 units every 8 hours Smoking history: 40 pack years quit 2001 INTERVAL EVENTS: Mars Peterson is a 69 year old male presented with past medical history of r diastolic heart failure, interstitial lung disease on 3 L of oxygen chronically, hypertension, CAD s/p CABG x 4, HILARIO, PVD s/p right BKA, anxiety/depression, hyperlipidemia, and hyponatremia who presents with feeling unwell. Admitted for fever in immunocompromised patient on Imuran having diarrhea and increased cough. No definite source of infection. Bactrim DS twice daily for 5 days then resume once daily Seems to be primarily pneumonia stopping metronidazole but will continue Omnicef for 6 doses starting tomorrow Patient to call Dr. Simon on resuming Imuran (azathioprine) after he has completed antibiotic Bactroban Nasal 5 more days HISTORY HOSPITAL COURSE: Mars Peterson is a 69 year old male presented with past medical history of r diastolic heart failure, interstitial lung disease on 3 L of oxygen chronically, hypertension, CAD s/p CABG x 4, HILARIO, PVD s/p right BKA, anxiety/depression, hyperlipidemia, and hyponatremia who presents with feeling unwell. Patient states that his ill feelings started yesterday morning when he awoke suddenly at approximately 3 AM. At that time, he states that he was shaking but was able to fall back asleep till approximately 6 AM. At that time, he felt diaphoretic and his took his temperature which was found to be 100.9. They decided to wait until home health care came who found that his blood pressure was low and directed him to come to the emergency room. Interestingly, the patient also notes that he does have a chronic cough but for the past 2-3 nights it has been more frequent/productive which it normally is not. He also notes some chronic diarrhea that does not seem to be changing in amount or consistency as well as 2 episodes of emesis/nausea. 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 Socially, the patient denies nicotine use, alcohol use, or recreational drug use. Furthermore he denies headache, changes in his vision/hearing, trouble swallowing, chest pain, shortness of breath, abdominal pain, constipation/hematochezia, urinary changes, new numbness/tingling, or new swelling. In the [place] ED the patient was found to be afebrile and hemodynamically stable as well as saturating well on his baseline 3 L of oxygen via NC. Labs are notable for sodium of 127, chloride of 87, bicarbonate of 26, creatinine of 1.53, blood glucose of 133, normal LFTs, BNP of 1255, ethanol less than 11, high-sensitivity troponin of 49-->41-->31, hemoglobin of 13.3, and leukocytosis of 11.92 with an ANC of 9.73. COVID/flu/RSV swabs were found to be negative. UA was found to be negative for signs of UTI. Chest x-ray demonstrated unchanged moderate interstitial pulmonary opacities bilaterally which may be secondary to known pulmonary fibrosis although there is a possibility of superimposed pulmonary edema or infection. CT of the abdomen and pelvis demonstrated several air-filled loops of bowel seen without evidence of bowel obstruction as well as a large amount of fluid in the sigmoid colon/rectum possibly in setting of colitis. The patient was given doses of DuoNebs, albuterol, Solu-Medrol, 1 L normal saline, Augmentin, and Zofran. He is being transferred to hospital medicine at [place] for further workup and management of his sepsis of unknown origin. The patient was treated for pneumonia and possible colitis. His MRSA nasal was positive for which with his interstitial lung disease he could have had infection just from aspiration of postnasal drip and his Bactrim is increased to twice a day and he is treated with Bactroban nasal. All other cultures were negative and patient moved back to baseline oxygen requirement. He will get 7 days of treatment for pneumonia including 7 days of the Bactrim being therapeu (more content not included)... [facility] 10-16-2024 Note HNO ID: [id number] Author: FRANCISCO HOLLOWAY MD Service: Pulmonary Disease Author Type: Physician Type: Progress Notes Filed: 10/16/2024 14:14 Note Text: [facility] PROGRESS NOTE Patient Name: Mars Peterson REASON FOR CONSULT: Complex patient with history of pulmonary fibrosis, started on Imuran. Presenting with fever and increased cough REQUESTING PHYSICIAN: Agustín Hernández MD ASSESSMENT AND RECOMMENDATION: Concern for sepsis Chronic respiratory failure on 3 L of oxygen Fibrotic ILD. UIP pattern. On Imuran. Not in exacerbation Immunocompromised patient CPFE Former smoker with 80 pack smoking history - Stable from respiratory standpoint for discharge. - Switch to Omnicef - On prednisone taper. On chronic prednisone - Discussed with patient's merchandise distributor Dr. Simon, agree holding Imuran. - Patient has a follow-up with pulmonology already set up - Will likely restart Imuran as an outpatient versus switch to CellCept - Currently low concern for pneumonia given no new infiltrates and stable CT chest. Thank you for the consultation. We will follow the patient along with you. Case discussed in detail with the patient, RN and primary attending. Patient verbalizes understanding and is in agreement with current management plan. Francisco Holloway MD CHIEF COMPLAINT: multiple complains HISTORY OF PRESENT ILLNESS: Mars Peterson is a 69 year old male with PMHx of chronic respiratory failure on 3 L of oxygen, fibrotic ILD likely UIP on Imuran, CPFE, exposure history to feather, former smoker with 80 pack smoking history, CAD s/p CABG, PAD status post right BKA, GERD, alcohol use, hyponatremia, hyperlipidemia, anxiety/depression and obesity. Patient is a poor historian states that he was feeling unwell complained of rigors, diaphoresis and fever. As per chart review patient had a fever of 100.9. He is completely dependent on caregivers, states that he moves around with the help of home health care nurse. Noted to be hypotensive when the home health care nurse checked his blood pressure. Also endorsed nausea and vomiting along with diarrhea. Has a chronic cough but has been productive for the last couple of days. No increased oxygen requirements. On admission patient was hemodynamically stable on baseline 3 L of oxygen. Laboratory workup showed chronic hyponatremia and mild leukocytosis otherwise unremarkable. Underwent CT which showed stable fibrosis with no new infiltrates. Pulmonary medicine was consulted for pulmonary fibrosis. Of note patient has had significant side effects with prednisone 10/14: Patient states he is feeling better than yesterday. Stable cough 10/15: No overnight issues. Stable lung exam 10/16: Uneventful night. 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 DJD (degenerative joint disease) Essential hypertension Heart attack (HCC) 2000 States his previous animal trainer told him he had a heart attack based on EKG (in [place]) ILD (interstitial lung disease) (HCC) Neuropathy Osteomyelitis of foot (HCC) left Peripheral vascular disease Right hand pain S/P CABG (coronary artery bypass graft) Umbilical hernia PAST SURGICAL HISTORY Procedure Laterality Date BACK SURGERY HX 2017 CABG (1) VEIN GRAFT AND ARTERIAL GRAFT 2001 CABG x4 COLONOSCOPY 2007 FINGER AMPUTATION (SPECIFY DIGIT) HX HIP SURGERY HX 1999 1999, 2019 Replacement Right and left LEG AMPUTATION HX Right 2018 PAST SURGICAL HISTORY OF coccyx for pilonidal cyst REMV CATARACT EXTRACAP,INSERT LENS Bilateral FAMILY HISTORY Problem Relation Age of Onset Ovarian cancer Mother other (afib) Mother COPD Mother Asthma Mother Heart Father heart attack other (Chronic oxygen) Father other (bladder cancer) Maternal Aunt Cancer Maternal Aunt Cancer Maternal Uncle Heart Paternal Uncle Leukemia Paternal Uncle Colon Cancer No Family History Social History Tobacco Use Smoking status: Former Current packs/day: 0.00 Average packs/day: 2.0 packs/day for 40.0 years (80.0 ttl pk-yrs) Types: Cigarettes Start date: 05/13/1961 Quit date: 05/13/2001 Years since quittin.4 Smokeless tobacco: Former Types: Chew Vaping Use Vaping status: Never Used Substance Use Topics Alcohol use: Yes Alcohol/week: 10.0 standard drinks of alcohol Types: 10 Cans of beer per week Drug use: Never ALLERGIES: ALLERGIES Allergen Reactions Animal Dander Other: See Comments Anything with fur Seasonal Allergies Other: See Comments Stuffy nose, headaches CURRENT OUTPATIENT MEDICATIONS: traZODone (DESYREL) 100 mg tabletTAKE 2 TABLETS BY MOUTH EVERY DAY AT BEDTIMEDisp: 180 tabletRfl: 1 predniSONE (DELT (more content not included)... [facility] 10-16-2024 Note HNO ID: [id number] Author: TRINH PERALTA RN Service: Care Management Author Type: Registered Nurse Type: Care Mgt Progress Note Filed: 10/16/2024 10:07 Note Text: CARE MANAGEMENT PROGRESS NOTE SERVICE DATE: 10/16/2024 SERVICE TIME: 10:07 AM LOS: 3 days IMM Follow Up Copy Given: Yes Copy given to:: Patient Method: In Person SIGNATURE: Trinh Peralta RN PATIENT NAME: Mars Peterson DATE: October 16, 2024 TIME: 10:07 AM [facility] 10-15-2024 Note HNO ID: [id number] Author: AGUSTÍN HERNÁNDEZ MD Service: Hospital Medicine Author Type: Physician Type: Progress Notes Filed: 10/16/2024 06:58 Note Text: DEPARTMENT OF HOSPITAL MEDICINE PROGRESS NOTE SERVICE DATE: 10/15/2024 SERVICE TIME: 6:25 PM Hospital Medicine/Primary Attending: Agustín Hernández MD NIGHT AND WEEKEND COVERAGE: [place] COVERAGE: Nights: [phone], please page [facility] Night coverage pager [phone]. Probable discharge: 10/17 Disposition: To be determined Consultants: Dr. Johnson for infectious disease Dr. HOLLOWAY for pulmonology PROCEDURES: NONE CODE STATUS: Full code ACCEPTS BLOOD PRODUCTS: YES : ASSESSMENT/PLAN Reason for Admission: Oxygen dependent patient with interstitial fibrosis on Imuran with fever over 100 degrees diarrhea and increased cough Anticoagulation: Prior to admission:Aspirin and Plavix Current: Aspirin and Plavix-heparin 7500 units every 8 hours Smoking history: 40 pack years quit 2001 INTERVAL EVENTS: Mars Peterson is a 69 year old male presented with past medical history of r diastolic heart failure, interstitial lung disease on 3 L of oxygen chronically, hypertension, CAD s/p CABG x 4, HILARIO, PVD s/p right BKA, anxiety/depression, hyperlipidemia, and hyponatremia who presents with feeling unwell. Admitted for fever in immunocompromised patient on Imuran having diarrhea and increased cough. No definite source of infection. Staphylococcal nasal was positive for MRSA-doxycycline was stopped? Bactrim is only once a day this is potentially pulmonary infection MRSA with other studies being negative and the Bactrim dosing would need to be increased to 1 DS twice daily or 2 DS twice daily I increased him to 1 DS twice daily as he is already getting better with stopping the Imuran. Want to get potassium level up to 4.0 will start twice daily tomorrow 40 mEq and monitor closely since he has started on a higher dose of the Bactrim. SARS, influenza, and RSV negative Single blood culture drawn 10/12 negative at 24 hours Enteric pathogens negative strep pneumococcal antigen and Legionella negative MRSA positive in the nose => Bactroban goal for glucose 100-180 at goal Ceftriaxone and metronidazole IV, Bactrim DS 7 days therapeutically then prophylactically again and acyclovir prophylactically DuoNeb with Pulmicort aerosols and as needed albuterol Prednisone 10 mg daily for 6 doses and then prednisone 5 mg daily Being weaned onto azathioprine(pulmonary discussed with Dr. Simon and it will be held till the infection is better) HISTORY HOSPITAL COURSE: Mars Peterson is a 69 year old male presented with past medical history of r diastolic heart failure, interstitial lung disease on 3 L of oxygen chronically, hypertension, CAD s/p CABG x 4, HILARIO, PVD s/p right BKA, anxiety/depression, hyperlipidemia, and hyponatremia who presents with feeling unwell. Patient states that his ill feelings started yesterday morning when he awoke suddenly at approximately 3 AM. At that time, he states that he was shaking but was able to fall back asleep till approximately 6 AM. At that time, he felt diaphoretic and his took his temperature which was found to be 100.9. They decided to wait until home health care came who found that his blood pressure was low and directed him to come to the emergency room. Interestingly, the patient also notes that he does have a chronic cough but for the past 2-3 nights it has been more frequent/productive which it normally is not. He also notes some chronic diarrhea that does not seem to be changing in amount or consistency as well as 2 episodes of emesis/nausea. 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 Socially, the patient denies nicotine use, alcohol use, or recreational drug use. Furthermore he denies headache, changes in his vision/hearing, trouble swallowing, chest pain, shortness of breath, abdominal pain, constipation/hematochezia, urinary changes, new numbness/tingling, or new swelling. In the [place] ED the patient was found to be afebrile and hemodynamically stable as well as saturating well on his baseline 3 L of oxygen via NC. Labs are notable for sodium of 127, chloride of 87, bicarbonate of 26, creatinine of 1.53, blood glucose of 133, normal LFTs, BNP of 1255, ethanol less than 11, high-sensitivity troponin of 49-->41-->31, hemoglobin of 13.3, and leukocytosis of 11.92 with an ANC of 9.73. COVID/flu/RSV swabs were found to be negative. UA was found to be negative for signs of UTI. Chest x-ray demonstrated unchanged moderate interstitial pulmonary opacities bilaterally which may be secondary to known pulmonary fibrosis although there is a possibility of superimposed pulmonary edema or infection. CT of the abdomen and pelvis demonstrated several air-filled loops of bowel seen without (more content not included)... [facility] 10-15-2024 Note HNO ID: [id number] Author: TRINH PERALTA RN Service: Care Management Author Type: Registered Nurse Type: Care Mgt Progress Note Filed: 10/15/2024 15:31 Note Text: CARE MANAGEMENT PROGRESS NOTE SERVICE DATE: 10/15/2024 SERVICE TIME: 3:29 PM LOS: 2 days Needs Prior to Discharge: Other: See Comment (Medical Clearance) EMR reviewed. Physical Therapy is recommending SNF. Occupational Therapy eval is pending. RN CM met with the patient at bedside to discuss discharge planning needs. He is declining SNF and plans on returning home with his spouse and resumption of [facility] Care. Spouse to transport at discharge. CM assigned will continue to follow. SIGNATURE: Trinh Peralta RN PATIENT NAME: Mars Peterson DATE: October 15, 2024 TIME: 3:29 PM [facility] 10-15-2024 Note HNO ID: [id number] Author: FRANCISCO HOLLOWAY MD Service: Pulmonary Disease Author Type: Physician Type: Progress Notes Filed: 10/15/2024 14:01 Note Text: [facility] PROGRESS NOTE Patient Name: Mars Peterson REASON FOR CONSULT: Complex patient with history of pulmonary fibrosis, started on Imuran. Presenting with fever and increased cough REQUESTING PHYSICIAN: Agustín Hernández MD ASSESSMENT AND RECOMMENDATION: Concern for sepsis Chronic respiratory failure on 3 L of oxygen Fibrotic ILD. UIP pattern. On Imuran. Not in exacerbation Immunocompromised patient CPFE Former smoker with 80 pack smoking history - Stable from respiratory standpoint. - Continue ceftriaxone and Flagyl. Follow sepsis workup. Recommend 7 days of antibiotics - On prednisone taper. On chronic prednisone - Discussed with patient's merchandise distributor Dr. Simon, agree holding Imuran. - Will likely restart Imuran as an outpatient versus switch to CellCept - Currently low concern for pneumonia given no new infiltrates and stable CT chest. Thank you for the consultation. We will follow the patient along with you. Case discussed in detail with the patient, RN and primary attending. Patient verbalizes understanding and is in agreement with current management plan. Francisco Holloway MD CHIEF COMPLAINT: multiple complains HISTORY OF PRESENT ILLNESS: Mars Peterson is a 69 year old male with PMHx of chronic respiratory failure on 3 L of oxygen, fibrotic ILD likely UIP on Imuran, CPFE, exposure history to feather, former smoker with 80 pack smoking history, CAD s/p CABG, PAD status post right BKA, GERD, alcohol use, hyponatremia, hyperlipidemia, anxiety/depression and obesity. Patient is a poor historian states that he was feeling unwell complained of rigors, diaphoresis and fever. As per chart review patient had a fever of 100.9. He is completely dependent on caregivers, states that he moves around with the help of home health care nurse. Noted to be hypotensive when the home health care nurse checked his blood pressure. Also endorsed nausea and vomiting along with diarrhea. Has a chronic cough but has been productive for the last couple of days. No increased oxygen requirements. On admission patient was hemodynamically stable on baseline 3 L of oxygen. Laboratory workup showed chronic hyponatremia and mild leukocytosis otherwise unremarkable. Underwent CT which showed stable fibrosis with no new infiltrates. Pulmonary medicine was consulted for pulmonary fibrosis. Of note patient has had significant side effects with prednisone 10/14: Patient states he is feeling better than yesterday. Stable cough 10/15: No overnight issues. 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 Peripheral vascular disease Right hand pain S/P CABG (coronary artery bypass graft) Umbilical hernia PAST SURGICAL HISTORY Procedure Laterality Date BACK SURGERY HX 2017 CABG (1) VEIN GRAFT AND ARTERIAL GRAFT 2002 CABG x4 COLONOSCOPY 2007 FINGER AMPUTATION (SPECIFY DIGIT) HX HIP SURGERY HX 1999 1999, 2018 Replacement Right and left LEG AMPUTATION HX Right 2018 PAST SURGICAL HISTORY OF coccyx for pilonidal cyst REMV CATARACT EXTRACAP,INSERT LENS Bilateral FAMILY HISTORY Problem Relation Age of Onset Ovarian cancer Mother other (afib) Mother COPD Mother Asthma Mother Heart Father heart attack other (Chronic oxygen) Father other (bladder cancer) Maternal Aunt Cancer Maternal Aunt Cancer Maternal Uncle Heart Paternal Uncle Leukemia Paternal Uncle Colon Cancer No Family History Social History Tobacco Use Smoking status: Former Current packs/day: 0.00 Average packs/day: 2.0 packs/day for 40.0 years (80.0 ttl pk-yrs) Types: Cigarettes Start date: 05/13/1961 Quit date: 05/13/2001 Years since quittin.4 Smokeless tobacco: Former Types: Chew Vaping Use Vaping status: Never Used Substance Use Topics Alcohol use: Yes Alcohol/week: 10.0 standard drinks of alcohol Types: 10 Cans of beer per week Drug use: Never ALLERGIES: ALLERGIES Allergen Reactions Animal Dander Other: See Comments Anything with fur Seasonal Allergies Other: See Comments Stuffy nose, headaches CURRENT OUTPATIENT MEDICATIONS: traZODone (DESYREL) 100 mg tabletTAKE 2 TABLETS BY MOUTH EVERY DAY AT BEDTIMEDisp: 180 tabletRfl: 1 predniSONE (DELTASONE) 10 mg tabletTAKE 2 TABLETS BY MOUTH ONCE DA (more content not included)... [facility] 10-14-2024 Note HNO ID: [id number] Author: AGUSTÍN HERNÁNDEZ MD Service: Hospital Medicine Author Type: Physician Type: Progress Notes Filed: 10/15/2024 06:59 Note Text: DEPARTMENT OF HOSPITAL MEDICINE PROGRESS NOTE SERVICE DATE: 10/14/2024 SERVICE TIME: 7:18 PM Hospital Medicine/Primary Attending: Agustín Hernández MD NIGHT AND WEEKEND COVERAGE: [place] COVERAGE: Nights: [phone], please page [facility] Night coverage pager [phone]. Probable discharge: 10/17 Disposition: To be determined Consultants: Dr. Johnson for infectious disease Dr. HOLLOWAY for pulmonology PROCEDURES: NONE CODE STATUS: Full code ACCEPTS BLOOD PRODUCTS: YES : ASSESSMENT/PLAN Reason for Admission: Oxygen dependent patient with interstitial fibrosis on Imuran with fever over 100 degrees diarrhea and increased cough Anticoagulation: Prior to admission:Aspirin and Plavix Current: Aspirin and Plavix-heparin 7500 units every 8 hours Smoking history: 40 pack years quit 2001 Diagnostic tests reviewed for today's visit: Most recent labs Most recent imaging Most recent EKG INTERVAL EVENTS: Mars Peterson is a 69 year old male presented with past medical history of r diastolic heart failure, interstitial lung disease on 3 L of oxygen chronically, hypertension, CAD s/p CABG x 4, HILARIO, PVD s/p right BKA, anxiety/depression, hyperlipidemia, and hyponatremia who presents with feeling unwell. Admitted for fever in immunocompromised patient on Imuran having diarrhea and increased cough. No definite source of infection. Staphylococcal nasal was positive for MRSA-doxycycline was stopped? Bactrim is only once a day this is potentially pulmonary infection MRSA with other studies being negative and the Bactrim dosing would need to be increased to 1 DS twice daily or 2 DS twice daily I increased him to 1 DS twice daily as he is already getting better with stopping the Imuran. Want to get potassium level up to 4.0 will start twice daily tomorrow 40 mEq and monitor closely since he has started on a higher dose of the Bactrim. SARS, influenza, and RSV negative Single blood culture drawn 10/12 negative at 24 hours Enteric pathogens negative strep pneumococcal antigen and Legionella negative MRSA positive in the nose => Bactroban goal for glucose 100-180 at goal Ceftriaxone and metronidazole IV, Bactrim DS and acyclovir prophylactically DuoNeb with Pulmicort aerosols and as needed albuterol Prednisone 10 mg daily for 6 doses and then prednisone 5 mg daily Being weaned onto azathioprine(pulmonary discussed with Dr. Simon and it will be held till the infection is better) HISTORY HOSPITAL COURSE: Mars Peterson is a 69 year old male presented with past medical history of r diastolic heart failure, interstitial lung disease on 3 L of oxygen chronically, hypertension, CAD s/p CABG x 4, HILARIO, PVD s/p right BKA, anxiety/depression, hyperlipidemia, and hyponatremia who presents with feeling unwell. Patient states that his ill feelings started yesterday morning when he awoke suddenly at approximately 3 AM. At that time, he states that he was shaking but was able to fall back asleep till approximately 6 AM. At that time, he felt diaphoretic and his took his temperature which was found to be 100.9. They decided to wait until home health care came who found that his blood pressure was low and directed him to come to the emergency room. Interestingly, the patient also notes that he does have a chronic cough but for the past 2-3 nights it has been more frequent/productive which it normally is not. He also notes some chronic diarrhea that does not seem to be changing in amount or consistency as well as 2 episodes of emesis/nausea. 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 Socially, the patient denies nicotine use, alcohol use, or recreational drug use. Furthermore he denies headache, changes in his vision/hearing, trouble swallowing, chest pain, shortness of breath, abdominal pain, constipation/hematochezia, urinary changes, new numbness/tingling, or new swelling. In the [place] ED the patient was found to be afebrile and hemodynamically stable as well as saturating well on his baseline 3 L of oxygen via NC. Labs are notable for sodium of 127, chloride of 87, bicarbonate of 26, creatinine of 1.53, blood glucose of 133, normal LFTs, BNP of 1255, ethanol less than 11, high-sensitivity troponin of 49-->41-->31, hemoglobin of 13.3, and leukocytosis of 11.92 with an ANC of 9.73. COVID/flu/RSV swabs were found to be negative. UA was found to be negative for signs of UTI. Chest x-ray demonstrated unchanged moderate interstitial pulmonary opacities bilaterally which may be secondary to known pulmonary fibrosis although there is a possibility of superimposed pulmonary edema or infection. CT of the abdomen and pelvis demons (more content not included)... [facility] 10-14-2024 Note HNO ID: [id number] Author: SOWMYA CONDE RN Service: Care Management Author Type: Registered Nurse Type: Care Mgt Progress Note Filed: 10/14/2024 15:57 Note Text: CARE MANAGEMENT PROGRESS NOTE SERVICE DATE: 10/14/2024 SERVICE TIME: 3:57 PM LOS: 1 day Needs Prior to Discharge: To Be Determined EMR reviewed. CM confirmed patient is active with [facility]. Referral placed in [facility]. Will need F2F. CM will follow. SIGNATURE: Sowmya Conde RN PATIENT NAME: Mars Peterson DATE: October 14, 2024 TIME: 3:57 PM [facility] 10-14-2024 Telephone encounter Note Images from the original note were not included. Prescription Refill Information The last VV or office visit in the department: 09/21/2024 Does the patient have a future office visit with this provider/department: Yes Requested Prescriptions Pending Prescriptions Disp Refills acyclovir (ZOVIRAX) 400 mg tablet [Pharmacy Med Name: ACYCLOVIR 400 MG TABLET] 90 tablet 1 Sig: TAKE 1 TABLET BY MOUTH EVERY DAY [facility] 10-14-2024 Miscellaneous Notes Images from the original note were not included. Prescription Refill Information The last VV or office visit in the department: 09/21/2024 Does the patient have a future office visit with this provider/department: Yes Requested Prescriptions Pending Prescriptions Disp Refills acyclovir (ZOVIRAX) 400 mg tablet [Pharmacy Med Name: ACYCLOVIR 400 MG TABLET] 90 tablet 1 Sig: TAKE 1 TABLET BY MOUTH EVERY DAY documented in this encounter [facility] 10-14-2024 Note HNO ID: [id number] Author: FRANCISCO HOLLOWAY MD Service: Pulmonary Disease Author Type: Physician Type: Progress Notes Filed: 10/14/2024 15:45 Note Text: [facility] CONSULTATION PROGRESS NOTE Patient Name: Mars Peterson REASON FOR CONSULT: Complex patient with history of pulmonary fibrosis, started on Imuran. Presenting with fever and increased cough REQUESTING PHYSICIAN: Agustín Hernández MD ASSESSMENT AND RECOMMENDATION: Concern for sepsis Chronic respiratory failure on 3 L of oxygen Fibrotic ILD. UIP pattern. On Imuran. Not in exacerbation Immunocompromised patient CPFE Former smoker with 80 pack smoking history - Stable from respiratory standpoint. - Continue ceftriaxone and Flagyl. Follow sepsis workup. 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 Simon, agree holding Imuran. - Will likely restart Imuran as an outpatient versus switch to CellCept - Currently low concern for pneumonia given no new infiltrates and stable CT chest. Thank you for the consultation. We will follow the patient along with you. Case discussed in detail with the patient, RN and primary attending. Patient verbalizes understanding and is in agreement with current management plan. Francisco Holloway MD CHIEF COMPLAINT: multiple complains HISTORY OF PRESENT ILLNESS: Mars Peterson is a 69 year old male with PMHx of chronic respiratory failure on 3 L of oxygen, fibrotic ILD likely UIP on Imuran, CPFE, exposure history to feather, former smoker with 80 pack smoking history, CAD s/p CABG, PAD status post right BKA, GERD, alcohol use, hyponatremia, hyperlipidemia, anxiety/depression and obesity. Patient is a poor historian states that he was feeling unwell complained of rigors, diaphoresis and fever. As per chart review patient had a fever of 100.9. He is completely dependent on caregivers, states that he moves around with the help of home health care nurse. Noted to be hypotensive when the home health care nurse checked his blood pressure. Also endorsed nausea and vomiting along with diarrhea. Has a chronic cough but has been productive for the last couple of days. No increased oxygen requirements. On admission patient was hemodynamically stable on baseline 3 L of oxygen. Laboratory workup showed chronic hyponatremia and mild leukocytosis otherwise unremarkable. Underwent CT which showed stable fibrosis with no new infiltrates. Pulmonary medicine was consulted for pulmonary fibrosis. Of note patient has had significant side effects with prednisone 10/14: Patient states he is feeling better than yesterday. 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 Peripheral vascular disease Right hand pain S/P CABG (coronary artery bypass graft) Umbilical hernia PAST SURGICAL HISTORY Procedure Laterality Date BACK SURGERY HX 2017 CABG (1) VEIN GRAFT AND ARTERIAL GRAFT 2002 CABG x4 COLONOSCOPY 2007 FINGER AMPUTATION (SPECIFY DIGIT) HX HIP SURGERY HX 2000 1999, 2019 Replacement Right and left LEG AMPUTATION HX Right 2018 PAST SURGICAL HISTORY OF coccyx for pilonidal cyst REMV CATARACT EXTRACAP,INSERT LENS Bilateral FAMILY HISTORY Problem Relation Age of Onset Ovarian cancer Mother other (afib) Mother COPD Mother Asthma Mother Heart Father heart attack other (Chronic oxygen) Father other (bladder cancer) Maternal Aunt Cancer Maternal Aunt Cancer Maternal Uncle Heart Paternal Uncle Leukemia Paternal Uncle Colon Cancer No Family History Social History Tobacco Use Smoking status: Former Current packs/day: 0.00 Average packs/day: 2.0 packs/day for 40.0 years (80.0 ttl pk-yrs) Types: Cigarettes Start date: 05/13/1961 Quit date: 05/13/2001 Years since quittin.4 Smokeless tobacco: Former Types: Chew Vaping Use Vaping status: Never Used Substance Use Topics Alcohol use: Yes Alcohol/week: 10.0 standard drinks of alcohol Types: 10 Cans of beer per week Drug use: Never ALLERGIES: ALLERGIES Allergen Reactions Animal Dander Other: See Comments Anything with fur Seasonal Allergies Other: See Comments Stuffy nose, headaches CURRENT OUTPATIENT MEDICATIONS: traZODone (DESYREL) 100 mg tabletTAKE 2 TABLETS BY MOUTH EVERY DAY AT BEDTIMEDisp: 180 tabletRfl: 1 acyclovir (ZOVIRAX) 400 mg tabletTake 1 tablet by mouth once daily.Disp: 30 tabletRfl: 2 predniSONE (DELTASONE) 10 mg tabletTAKE 2 TABLETS BY MOUTH ONCE DAILY FOR 21 DAYS, THEN 1.5 TABLE (more content not included)... [facility] 10-13-2024 Telephone encounter Note Patient has been scheduled to see Baer on 10/21/24. Alicia Nieves October 13, 2024 1:45 PM [facility] 10-13-2024 Miscellaneous Notes Patient has been scheduled to see Bear on 10/21/24. Alicia Nieves October 13, 2024 1:45 PM I will check with Bear since Dr. Hummel is out of the office. Alicia Nieves October 13, 2024 11:54 AM ----- Message from Ami Hugo sent at 10/13/2024 11:31 AM EDT ----- Regarding: Orthopdics/ [ACACIA Hidalgo]/ [Questions about Cast] Subject Line Format: Orthopedics / [Provider Name or "Open & Body Part"] / [Issue] Patient has been identified by name and Date of (Y/N): Y Patient: Mars Peterson Date of : 1955 Previous Provider Seen: Dr. Hummel Body Part(s) Identified: N/A Diagnosis/Reason For Visit: Follow Up/ Cast Removal Reason for the call/escalation: Patients spouse called in to reschedule appt for patient due to being in hospital. Patients spouse had a question in regards to if cast can be removed by [facility] on 10/14. Patients spouse stated they are unsure of when patient is getting out of hospital. Patients spouse would like call back at earliest convenience to discuss. If reason for call/escalation is discharge from ED/ER or Hospital, which facility was the patient seen at: N/A Was an appointment scheduled (Y/N): N Person calling if other than patient: Patients SpouseIvania Return call to if other than patient: Patients Spouse Ivania Best contact number: [phone] Thank you, Ami Agee October 13, 2024 11:32 AM documented in this encounter [facility] 10-13-2024 Telephone encounter Note I will check with Bear since Dr. Hummel is out of the office. Alicia Nieves October 13, 2024 11:54 AM [facility] 10-13-2024 Telephone encounter Note ----- Message from Ami Hugo sent at 10/13/2024 11:31 AM EDT ----- Regarding: Orthopdics/ [ACACIA Hidalgo]/ [Questions about Cast] Subject Line Format: Orthopedics / [Provider Name or "Open & Body Part"] / [Issue] Patient has been identified by name and Date of (Y/N): Y Patient: Mars Peterson Date of : 1955 Previous Provider Seen: Dr. Hummel Body Part(s) Identified: N/A Diagnosis/Reason For Visit: Follow Up/ Cast Removal Reason for the call/escalation: Patients spouse called in to reschedule appt for patient due to being in hospital. Patients spouse had a question in regards to if cast can be removed by [facility] on 10/14. Patients spouse stated they are unsure of when patient is getting out of hospital. Patients spouse would like call back at earliest convenience to discuss. If reason for call/escalation is discharge from ED/ER or Hospital, which facility was the patient seen at: N/A Was an appointment scheduled (Y/N): N Person calling if other than patient: Patients Ivania Abreu Return call to if other than patient: Patients Ivania Abreu Best contact number: [phone] Thank you, Ami Agee October 13, 2024 11:32 AM [facility] 10-13-2024 Note HNO ID: [id number] Author: AGUSTÍN HERNÁNDEZ MD Service: Hospital Medicine Author Type: Physician Type: Progress Notes Filed: 10/13/2024 12:37 Note Text: DEPARTMENT OF HOSPITAL MEDICINE PROGRESS NOTE SERVICE DATE: 10/13/2024 SERVICE TIME: 11:18 AM Hospital Medicine/Primary Attending: Agustín Hernández MD NIGHT AND WEEKEND COVERAGE: [place] COVERAGE: Nights: [phone], please page [facility] Night coverage pager [phone]. Probable discharge: 10/17 Disposition: To be determined Consultants: Dr. Johnson for infectious disease Dr. HOLLOWAY for pulmonology PROCEDURES: NONE CODE STATUS: Full code ACCEPTS BLOOD PRODUCTS: YES : ASSESSMENT/PLAN Reason for Admission: Oxygen dependent patient with interstitial fibrosis on Imuran with fever over 100 degrees diarrhea and increased cough Anticoagulation: Prior to admission:Aspirin and Plavix Current: Aspirin and Plavix-heparin 7500 units every 8 hours Smoking history: 40 pack years quit 2001 Diagnostic tests reviewed for today's visit: Most recent labs Most recent imaging Most recent EKG INTERVAL EVENTS: Mars Peterson is a 69 year old male presented with past medical history of r diastolic heart failure, interstitial lung disease on 3 L of oxygen chronically, hypertension, CAD s/p CABG x 4, HILARIO, PVD s/p right BKA, anxiety/depression, hyperlipidemia, and hyponatremia who presents with feeling unwell. Admitted for fever in immunocompromised patient on Imuran having diarrhea and increased cough. No definite source of infection. SARS, influenza, and RSV negative Single blood culture drawn 10/12 along with C. difficile, MRSA nasal swab and enteric pathogens pending Goal for glucose 100-180 at goal Ceftriaxone, doxycycline, metronidazole, Bactrim DS and acyclovir prophylactically DuoNeb with Pulmicort aerosols and as needed albuterol Prednisone 10 mg daily for 6 doses and then prednisone 5 mg daily Being weaned from azathioprine HISTORY HOSPITAL COURSE: Mars Peterson is a 69 year old male presented with past medical history of r diastolic heart failure, interstitial lung disease on 3 L of oxygen chronically, hypertension, CAD s/p CABG x 4, HILARIO, PVD s/p right BKA, anxiety/depression, hyperlipidemia, and hyponatremia who presents with feeling unwell. Patient states that his ill feelings started yesterday morning when he awoke suddenly at approximately 3 AM. At that time, he states that he was shaking but was able to fall back asleep till approximately 6 AM. At that time, he felt diaphoretic and his took his temperature which was found to be 100.9. They decided to wait until home health care came who found that his blood pressure was low and directed him to come to the emergency room. Interestingly, the patient also notes that he does have a chronic cough but for the past 2-3 nights it has been more frequent/productive which it normally is not. He also notes some chronic diarrhea that does not seem to be changing in amount or consistency as well as 2 episodes of emesis/nausea. 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 Socially, the patient denies nicotine use, alcohol use, or recreational drug use. Furthermore he denies headache, changes in his vision/hearing, trouble swallowing, chest pain, shortness of breath, abdominal pain, constipation/hematochezia, urinary changes, new numbness/tingling, or new swelling. In the [place] ED the patient was found to be afebrile and hemodynamically stable as well as saturating well on his baseline 3 L of oxygen via NC. Labs are notable for sodium of 127, chloride of 87, bicarbonate of 26, creatinine of 1.53, blood glucose of 133, normal LFTs, BNP of 1255, ethanol less than 11, high-sensitivity troponin of 49-->41-->31, hemoglobin of 13.3, and leukocytosis of 11.92 with an ANC of 9.73. COVID/flu/RSV swabs were found to be negative. UA was found to be negative for signs of UTI. Chest x-ray demonstrated unchanged moderate interstitial pulmonary opacities bilaterally which may be secondary to known pulmonary fibrosis although there is a possibility of superimposed pulmonary edema or infection. CT of the abdomen and pelvis demonstrated several air-filled loops of bowel seen without evidence of bowel obstruction as well as a large amount of fluid in the sigmoid colon/rectum possibly in setting of colitis. The patient was given doses of DuoNebs, albuterol, Solu-Medrol, 1 L normal saline, Augmentin, and Zofran. He is being transferred to hospital medicine at [facility] for further workup and management of his sepsis of unknown origin. Active Hospital Problems as of 10/13/2024 Noted - Resolved [facility] * (Principal) Sepsis (HCC) 10/12/2024 - Present Yes Essential hypertension 05/24/2020 - Present Yes Peripheral vascular disease 05/24/2020 - Present Yes Obesity, Class II, (more content not included)... [facility] 10-13-2024 Note HNO ID: [id number] Author: TRINH PERALTA RN Service: Care Management Author Type: Registered Nurse Type: Care Mgt Initial Assessment Filed: 10/13/2024 11:15 Note Text: CARE MANAGEMENT: ASSESSMENT AND DISCHARGE PLAN SERVICE DATE: October 13, 2024 SERVICE TIME: 11:12 AM PCP: Alma Gill APRN.CNP Primary Contact: Extended Emergency Contact Information Primary Emergency Contact: Ivania Peterson Address: [address] [place] [address] [facility] Mobile Relation: Spouse Secondary Emergency Contact: BlancaAshley Mobile Relation: Daughter Admission Status: Observation Insurance Provider: MEDICARE A AND B Discharge Planning requested by: Per Department Practice Potential Transition Plans Home Care Advance Directives Current Advance Directive: None Combine Inspector Attempted to Assist with AD Completion: Yes Action: Education Provided Current Living Arrangements and Support Lives with: Spouse/significant other Type of Residence: Private Residence (House) Does the patient have to climb stairs at home?: No Support: Spouse/significant other, Home care staff How do you manage to accomplish the following: Independent: Going to the bathroom Needs Assistance: Bathe/Shower, Meals/Meal Prep, Medication Management, Dress, Ambulation Dependent: Transportation to appointments/community Current Services/Equipment Current Post-Acute Service(s): DME, Skilled Home Care, Oxygen Current O2 Usage (device, rate, continuous/pulse and hrs per day): 3 LPM, nasal cannula, continuous Current DME Type: Hospital bed, Oxygen, Walker, Wheelchair-manual, Other: See Comment (Prosthetic) Current Post[facility]Ac[facility] Service(s) [facility] Discharge Planning Patient Goal(s): Be able to go home, General wellness [place] of Choice Explained: [place] of Choice Given: Yes Level of Care Discussed: Home Care (Patient and spouse confirmed plan to resume services with [facility].) Are you interested in bedside delivery of your medications? No Discharge Planning Participant(s): Patient, Spouse/significant other Patient/Family Comments: Caregiver Assessment: Caregiver is ready, willing and able to meet the patient's needs as recommended by the inter-professional team: Yes Name of Caregiver: [facility] and spouse assist and ALCOHOL USE/ABUSE CAGE ASSESSMENT Two or More Affirmative Responses Suggest a Client is a Problem Drinker. - Have you felt the need to cut down on your drinking? No - Do you feel annoyed by people complaining about your drinking? No - Do you ever feel guilty about your drinking? No - Do you ever drink an eye-senior manager creative services in the morning to relieve shakes? No CAGE completed. Patient declined resources Transport at Discharge: Transportation Arrangements: Car Needs Prior to Discharge: Needs Prior to Discharge: Home Care Order, Other: See Comment (Medical Clearance) Post-Acute Discharge Plan: EMR reviewed and CM assessment complete. 69 year old patient admitted to Observation bed for Sepsis. RN CM met with the patient and his spouse at bedside to discuss discharge planning needs. He reportedly lives with his spouse in a single level home with one small step to enter and needed assistance with ADL's and IADL's SLEEVE MAKER. He was active with [facility] [employer] and plans on resuming services upon discharge. He is not interested in SNF. Spouse to transport at discharge. CM assigned will continue to follow. SIGNATURE: Trinh Peralta RN PATIENT NAME: Mars Peterson DATE: October 13, 2024 TIME: 11:12 AM [facility] 10-12-2024 Telephone encounter Note RQB Hx of ILD on 3L. Cough weakness fever and low BP's at home. ?colitis vs PNA. [facility] Work Phone: 10-12-2024 Miscellaneous Notes RQB Hx of ILD on 3L. Cough weakness fever and low BP's at home. ?colitis vs PNA. documented in this encounter [facility] 10-12-2024 Note SARS-COV-2 (AGENT OF COVID-19) RNA: Not detected INFLUENZA A RNA: Not detected INFLUENZA B RNA: Not detected RESPIRATORY SYNCYTIAL VIRUS (RSV) RNA: Not detected [facility] Comment on above: Performed By: #### [id number] #### [facility] CLIA [id number] [address] [place] [address] OF [facility] 10-08-2024 Telephone encounter Note Form placed on signing tray from [facility] Order: [id number] Priya Pedersen MA [facility] 10-08-2024 Miscellaneous Notes Form placed on signing tray from [facility] Order: [id number] Priya Pedersen MA documented in this encounter [facility] 10-06-2024 Telephone encounter Note pharmacy electronically requesting refills as follows: Last seen 07/14/24 . Last refill 04/29/24 . Requested Prescriptions Pending Prescriptions Disp Refills traZODone (DESYREL) 100 mg tablet [Pharmacy Med Name: TRAZODONE 100 MG TABLET] 180 tablet 1 Sig: TAKE 2 TABLETS BY MOUTH EVERY DAY AT BEDTIME Please review and advise. Precious Lacy MA [facility] 10-06-2024 Miscellaneous Notes pharmacy electronically requesting refills as follows: Last seen 07/14/24 . Last refill 04/29/24 . Requested Prescriptions Pending Prescriptions Disp Refills traZODone (DESYREL) 100 mg tablet [Pharmacy Med Name: TRAZODONE 100 MG TABLET] 180 tablet 1 Sig: TAKE 2 TABLETS BY MOUTH EVERY DAY AT BEDTIME Please review and advise. Precious Lacy MA documented in this encounter [facility] 09-28-2024 Telephone encounter Note Form placed on signing tray Order: [id number] Priya Pedersen MA [facility] 09-28-2024 Miscellaneous Notes Form placed on signing tray Order: [id number] Priya Pedersen MA documented in this encounter [facility] 09-23-2024 History of Presen t illness Narrative Patient presents with: Right Hand - New, Pain, Swelling HISTORY OF PRESENT ILLNESS Mars Peterson is a 69 year old male right hand dominant who presents for evaluation of right hand boxer fracture. The patient sustained his injury after a fall. He has not been in significant pain, but mentions that when he tries to move his hand it can be painful. Location: Right hand Severity: 6 on a scale of 0-10 Duration of symptoms: 4 days Date of injury 09/19/24 Symptoms have Worsened Previous treatment: None Prior Treatment: Closed Reduction:No Splint: No Context worse with Activity/Motion Occupation: Retired Smoking status: Tobacco Use: Types: Cigarettes, Chew REVIEW OF SYSTEMS Cardiovascular ROS:No history of chest pain, palpitation, orthopnea, cyanosis, pedal edema Neurologic ROS: Numbness and Tingling:No PAST MEDICAL HISTORY Past medical, surgical, family, and social histories have been reviewed and updated with the patient today and are located elsewhere in the medical record. Diabetes:No ALLERGIES ALLERGIES Allergen Reactions Animal Dander Other: See Comments Anything with fur Seasonal Allergies Other: See Comments Stuffy nose, headaches PHYSICAL EXAMINATION Resp 20 Ht 182.9 cm (6') Wt 123.8 kg (273 lb) BMI 37.03 kg/m Body mass index is 37.03 kg/m . General Appearance Well appearing, alert, in no acute distress, well-hydrated, well nourished. Alert and oriented times: 3 Normal affect times: 3 Appears stated age and well nourished Gait and station:normal Right Upper Extremity Exam: Examined without splint Skin: WNL Median Nerve paresthesias: No Brisk capillary refill intact Sensation intact median, radial, ulnar nerve distribution Tenderness to palpation: Yes ROM: Motion slightly impaired due to pain. No evidence of malrotation Instability: none REVIEW OF STUDIES X-rays 09/21/24 3 views of the right hand: Fifth metacarpal neck fracture, mildly impacted with mild shortening and minimal displacement and volar angulation. There is slight comminution with a small fragment along the radial margin. Soft tissue swelling. 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 ASSESSMENT/PLAN: 1. Closed boxer's fracture, initial encounter - ICD9: 815.00, ICD10: S62.339A - APPLY HAND/WRIST CAST I reviewed the imaging with the patient and discussed the diagnosis at length with he and his family member. We reviewed treatment options including operative and nonoperative measures. I recommended nonoperative treatment with immobilization and a short arm ulnar gutter cast was applied here today. We will plan on following up in just over 3 weeks for cast removal, repeat imaging. At that time point I anticipate transitioning to a removable brace. All of his questions were answered to his satisfaction. Sandra Hummel MD Patient educated on cast care and maintenance. Patient instructed to call the office with questions or concerns. Scribe Attestation: By signing my name below, IPalmira, attest that this documentation has been prepared under the direction and in the presence of Dr. Sandra Hummel MD. Electronically Signed: Breezy Anguiano. September 23, 2024 2:36 PM. Provider Attestation: I, Dr. Sandar Hummel MD, personally performed the services described in this documentation. All medical record entries made by the scribe were at my direction and in my presence. I have reviewed the chart and discharge instructions (if applicable) and agree that the record reflects my personal performance and is accurate and complete. Electronically Signed: Dr. Sandra Hummel MD, September 23, 2024 documented in this encounter [facility] 09-23-2024 Note HNO ID: [id number] Author: SANDRA HUMMEL MD Service: ? Author Type: Physician Type: Progress Notes Filed: 10/06/2024 07:37 Note Text: Patient presents with: Right Hand - New, Pain, Swelling HISTORY OF PRESENT ILLNESS Mars Peterson is a 69 year old male right hand dominant who presents for evaluation of right hand boxer fracture. The patient sustained his injury after a fall. He has not been in significant pain, but mentions that when he tries to move his hand it can be painful. Location: Right hand Severity: 6 on a scale of 0-10 Duration of symptoms: 4 days Date of injury 09/19/24 Symptoms have Worsened Previous treatment: None Prior Treatment: Closed Reduction:No Splint: No Context worse with Activity/Motion Occupation: Retired Smoking status: Tobacco Use: Types: Cigarettes, Chew REVIEW OF SYSTEMS Cardiovascular ROS:No history of chest pain, palpitation, orthopnea, cyanosis, pedal edema Neurologic ROS: Numbness and Tingling:No PAST MEDICAL HISTORY Past medical, surgical, family, and social histories have been reviewed and updated with the patient today and are located elsewhere in the medical record. Diabetes:No ALLERGIES ALLERGIES Allergen Reactions Animal Dander Other: See Comments Anything with fur Seasonal Allergies Other: See Comments Stuffy nose, headaches PHYSICAL EXAMINATION Resp 20 Ht 182.9 cm (6') Wt 123.8 kg (273 lb) BMI 37.03 kg/m? Body mass index is 37.03 kg/m?. General Appearance Well appearing, alert, in no acute distress, well-hydrated, well nourished. Alert and oriented times: 3 Normal affect times: 3 Appears stated age and well nourished Gait and station:normal Right Upper Extremity Exam: Examined without splint Skin: WNL Median Nerve paresthesias: No Brisk capillary refill intact Sensation intact median, radial, ulnar nerve distribution Tenderness to palpation: Yes ROM: Motion slightly impaired due to pain. No evidence of malrotation Instability: none REVIEW OF STUDIES X-rays 09/21/24 3 views of the right hand: Fifth metacarpal neck fracture, mildly impacted with mild shortening and minimal displacement and volar angulation. There is slight comminution with a small fragment along the radial margin. Soft tissue swelling. 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 ASSESSMENT/PLAN: 1. Closed boxer's fracture, initial encounter - ICD9: 815.00, ICD10: S62.339A - APPLY HAND/WRIST CAST I reviewed the imaging with the patient and discussed the diagnosis at length with he and his family member. We reviewed treatment options including operative and nonoperative measures. I recommended nonoperative treatment with immobilization and a short arm ulnar gutter cast was applied here today. We will plan on following up in just over 3 weeks for cast removal, repeat imaging. At that time point I anticipate transitioning to a removable brace. All of his questions were answered to his satisfaction. Sandra Hummel MD Patient educated on cast care and maintenance. Patient instructed to call the office with questions or concerns. Scribe Attestation: By signing my name below, I,Palmira Vasquez, attest that this documentation has been prepared under the direction and in the presence of Dr. Sandra Hummel MD. Electronically Signed: Breezy Anguiano. September 23, 2024 2:36 PM. Provider Attestation: I, Dr. Sandra Hummel MD, personally performed the services described in this documentation. All medical record entries made by the scribe were at my direction and in my presence. I have reviewed the chart and discharge instructions (if applicable) and agree that the record reflects my personal performance and is accurate and complete. Electronically Signed: Dr. Sandra Hummel MD, September 23, [address]24 [facility] 09-22-2024 Telephone encounter Note Form received from [facility] order: [id number] Priya Pedersen MA [facility] 09-22-2024 Miscellaneous Notes Form received from [facility] order: [id number] Priya Pedersen MA documented in this encounter [facility] 09-21-2024 Telephone encounter Note ----- Message from Alma Gill APRN.TAG MACHINE OPERATOR sent at 09/21/2024 3:48 PM EDT ----- Labs are stable besides sodium at 125. [facility] 09-21-2024 Miscellaneous Notes ----- Message from Alma Gill APRN.TAG MACHINE OPERATOR sent at 09/21/2024 3:48 PM EDT ----- Labs are stable besides sodium at 125. documented in this encounter [facility] 09-21-2024 History of Presen t illness Narrative Radiology Service Progress Note PATIENT NAME: Mars Peterson DATE OF SERVICE: September 21, 2024 TIME: 12:42 PM PATIENT IDENTITY VERIFICATION COMPLETED USING TWO (2) IDENTIFIERS: Name and Date of confirmed by patient verbally. FALL SCREENING: Has the patient had 2 falls in the last year or 1 fall with injury or currently using an Ambulatory Assistive Device (Walker, Cane, Wheelchair, Crutches, etc.)? No PATIENT GENDER DATA: Assigned male at PATIENT RELEVANT IMPLANT DATA REVIEWED: Not Applicable PATIENT PRESENTS WITH AN IMPLANTABLE OR ATTACHED LEAD SHOP OPERATOR: No RADIOLOGY DEPARTMENT: General X-ray: Exam(s) Completed: Upper Extremity X-Ray(s): Hand, right PERIPHERAL IV DATA: Not applicable SIGNED BY: RT Hayder([facility]) September 21, 2024 12:42 PM documented in this encounter [facility] 09-21-2024 Note HNO ID: [id number] Author: ROSEMARY SAMS RT([facility]) Service: ? Author Type: Technologist Type: Progress Notes Filed: 09/21/2024 12:43 Note Text: Radiology Service Progress Note PATIENT NAME: Mars Peterson DATE OF SERVICE: September 21, 2024 TIME: 12:42 PM PATIENT IDENTITY VERIFICATION COMPLETED USING TWO (2) IDENTIFIERS: Name and Date of confirmed by patient verbally. FALL SCREENING: Has the patient had 2 falls in the last year or 1 fall with injury or currently using an Ambulatory Assistive Device (Walker, Cane, Wheelchair, Crutches, etc.)? No PATIENT GENDER DATA: Assigned male at PATIENT RELEVANT IMPLANT DATA REVIEWED: Not Applicable PATIENT PRESENTS WITH AN IMPLANTABLE OR ATTACHED LEAD SHOP OPERATOR: No RADIOLOGY DEPARTMENT: General X-ray: Exam(s) Completed: Upper Extremity X-Ray(s): Hand, right PERIPHERAL IV DATA: Not applicable SIGNED BY: RT Hayder([facility]) September 21, 2024 12:[address] [facility] 09-21-2024 Instructions Tru Simon MD - 09/21/2024 10:11 AM EDT Keep tapering prednisone as planned Reschedule your PFTs for when you come back to see me (either 11/09 or 11/11) Start acyclovir 400 mg once a day once you finish your current treatment for shingles I will contact pharmacy about prior auth for cellcept documented in this encounter [facility] 09-21-2024 Note [facility] 09-21-2024 History of Presen t illness Narrative Images from the original note were not included. Respiratory [place] Mars Peterson is a 69 year old male here for a follow up with the [facility] Interstitial Lung Disease Team. HISTORY OF PRESENT ILLNESS: Down 8 lbs from last visit Breathing seems to be ok - has good days and bad days He never had asthma to his knowledge. He does have some seasonal allergic symptoms Developed shingles while on immunosuppression. On treatment with acyclovir currently Currently on 15 mg of prednisone. He is tolerating wean well He is also on 1500 mg of cellcept He also had a fall and banged up hand. Reportedly had AFlutter and PVCs per carpenter railcar. She has reached out to animal trainer 09/21/2024 06/24/2024 04/27/2024 04/22/2024 03/27/2024 Weight Weight 273 lb 9.6 oz 281 lb 8.4 oz 271 lb 271 lb 4.8 oz 270 lb 9.6 oz REVIEW OF SYSTEMS: MRC Dyspnea Scale: 4. Stops for breath after about 100 m or after a few minutes on the level All others per history of present illness or otherwise negative on detailed 14 point review. 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 Peripheral vascular disease S/P CABG (coronary artery bypass graft) Umbilical hernia PAST SURGICAL HISTORY Procedure Laterality Date BACK SURGERY HX 2017 CABG (1) VEIN GRAFT & ARTERIAL GRAFT 2002 CABG x4 COLONOSCOPY 2007 FINGER AMPUTATION (SPECIFY DIGIT) HX HIP SURGERY HX 2000 1999, 2019 Replacement Right and left LEG AMPUTATION HX Right 2018 PAST SURGICAL HISTORY OF coccyx for pilonidal cyst REMV CATARACT EXTRACAP,INSERT LENS Bilateral SOCIAL HISTORY: Social History Tobacco Use Smoking status: Former Packs/day: 0.00 Years: 2.0 packs/day for 40.0 years (80.0 ttl pk-yrs) Types: Cigarettes Start date: 05/13/1961 Quit date: 05/13/2001 Years since quittin.3 Smokeless tobacco: Former Types: Chew Alcohol Use: Approximately 6 oz/week [which includes 10 Cans of beer per week] Drug Use: Never FAMILY HISTORY Problem Relation Age of Onset Ovarian cancer Mother other (afib) Mother COPD Mother Asthma Mother Heart Father heart attack other (Chronic oxygen) Father other (bladder cancer) Maternal Aunt Cancer Maternal Aunt Cancer Maternal Uncle Heart Paternal Uncle Leukemia Paternal Uncle Colon Cancer No Family History ALLERGIES Allergen Reactions Animal Dander Other: See Comments Anything with fur Seasonal Allergies Other: See Comments Stuffy nose, headaches CURRENT MEDICATIONS mycophenolate Mofetil (CELLCEPT) 500 mg tablet Take 3 tablets by mouth two times a day. acyclovir (ZOVIRAX) 800 mg tablet Take 1 tablet by mouth five times a day for 7 days. Blood-Glucose Sensor (FREESTYLE ROSA 3 PLUS SENSOR) chata 1 device every 2 weeks. predniSONE (DELTASONE) 10 mg tablet TAKE 2 TABLETS BY MOUTH ONCE DAILY FOR 21 DAYS, THEN 1.5 TABLETS ONCE DAILY FOR 21 DAYS, THEN 1 TABLET ONCE DAILY FOR 21 DAYS, THEN 0.5 TABLETS ONCE DAILY FOR 21 DAYS. isosorbide mononitrate ER (IMDUR) 30 mg 24 hr tablet Take 1 tablet by mouth once daily. hydrOXYzine HCl (ATARAX) 25 mg tablet Take 2 tablets by mouth two times a day. budesonide (PULMICORT) 0.5 mg/2 mL nebulizer solution Use 2 mL via nebulizer two times a day. ipratropium-albuterol (DUONEB) 0.5 mg-3 mg(2.5 mg base)/3 mL nebu Inhale 3 mL as instructed every 4 hours while awake. metoprolol succinate ER (TOPROL XL) 25 mg 24 hr tablet Take 1 tablet by mouth every afternoon. clopidogrel (PLAVIX) 75 mg tablet Take 1 tablet by mouth once daily. pantoprazole DR (PROTONIX) 40 mg tablet Take 1 tablet by mouth once daily. rosuvastatin (CRESTOR) 20 mg tablet Take 1 tablet by mouth daily at bedtime. lisinopril 2.5 mg tablet Take 1 tablet by mouth two times a day. Hold if SBP less than 110 ezetimibe (ZETIA) 10 mg tablet Take 1 tablet by mouth once daily. guaiFENesin (MUCINEX) 600 mg 12 hr tablet Take 1 tablet by mouth two times a day as needed for cold/allergy symptoms. traZODone (DESYREL) 100 mg tablet TAKE 2 TABLETS BY MOUTH DAILY AT BEDTIME furosemide (LASIX) 40 mg tablet Take 1 tablet by mouth three times a week. escitalopram oxalate (LEXAPRO) 20 mg tablet Take 1 tablet by mouth once daily. colestipol (COLESTID) 1 gram tablet Take 1 tablet by mouth two times a day. OXYGEN, HOME THERAPY, 3 L/min by Nasal Cannula route as directed. fluticasone (FLONASE) 50 mcg/actuation nasal spray spray 1 spray into each nostril every day nitroglycerin sublingual (NITROSTAT) 0.4 mg SL tablet Dissolve 1 tablet under the tongue every 5 minutes as needed for chest pain. albuterol sulfate 90 mcg/actuation aebs Inhale 1-2 Puffs as instructed every 4 hours as needed for wheezing/shortness of breath. Lactobacillus acidophilus (PROBIOTIC) 10 billion cell cap Take 1 capsule by mouth once daily. acetaminophen (TYLENOL EXTRA STRENGTH) 500 mg tablet Take 2 tablets by mouth every 8 hours as needed for pain. FOR PAIN. Zinc 50 mg tab Take 50 mg by mouth once daily. aspirin, enteric coated (ASPIRIN, ENTERIC COATED) 81 mg EC tablet Take 81 mg by mouth once daily. multivit-min/folic/vit K/lycop (ONE-A-DAY MEN'S MULTIVITAMIN ORAL) Take by mouth once daily. gabapentin (NEURONTIN) 300 mg capsule TAKE 2 CAPSULES BY MOUTH EVERY MORNING AND 3 CAPSULES AT BEDTIME FOR 30 DAYS. Strength: 300 mg PHYSICAL EXAM: BP 150/83 Pulse 68 Temp 98.1 Ht 6' 0" (1.83m) Wt 273 lb 9.6 oz (124.1kg) SpO2 96[3L]% BMI 37.10 kg/(m^2). Physical Exam Constitutional: General: He is not in acute distress. Appearance: He is obese. He is not toxic-appearing. HENT: Head: Normocephalic and atraumatic. Nose: No congestion or rhinorrhea. Mouth/Throat: Mouth: Mucous membranes are moist. Pharynx: No oropharyngeal exudate or posterior oropharyngeal erythema. Eyes: General: No scleral icterus. Extraocular Movements: Extraocular movements intact. Conjunctiva/sclera: Conjunctivae normal. Cardiovascular: Rate and Rhythm: Normal rate and regular rhythm. Heart sounds: No murmur heard. No friction rub. No gallop. Pulmonary: Effort: No respiratory distress. Breath sounds: No stridor. Rales present. No wheezing or rhonchi. Abdominal: General: Abdomen is flat. Bowel sounds are normal. There is no distension. Palpations: Abdomen is soft. Tenderness: There is no abdominal tenderness. Musculoskeletal: General: No tenderness. Cervical back: Normal range of motion and neck supple. Right lower leg: No edema. Left lower leg: No edema. Skin: General: Skin is warm and dry. Capillary Refill: Capillary refill takes less than 2 seconds. Coloration: Skin is not jaundiced. Neurological: General: No focal deficit present. Mental Status: He is alert and oriented to person, place, and time. DATA REVIEWED (independently reviewed by myself) Laboratory Data Laboratory data reviewed in [facility] Care Everywhere. Pulmonary Function Data PFT available since last visit: Yes Six minute walk Six minute walk available since last visit: No Radiology Data New radiology data since last visit: No Echocardiogram Was an echo performed since last visit?: No Heart Catheterization Was a right heart catheterization performed since last visit?: No ASSESSMENT Mars Peterson is a 69 year old male with CPFE, former smoker, feather exposure, chronic oxygen dependence, GERD without esophagitis, CAD presenting for evaluation of ILD. 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 Recent exacerbation of ILD likely from viral infection, now O2 chronically since then. Not well enough for bronchoscopy. Have suggested mold testing which will do and removal of feathers from the household, along with trial of prednisone. Obstruction improved dramatically with steroids suggesting air trapping is improved. FVC down somewhat with increase in weight Repeat echo to reevaluate for PH was negative for PH Medication costs are a major issue. Still too sick for biopsy. Developed shingles while on cellcept + prednisone. Treated with oral acyclovir Falls + dizziness - carpenter railcar reported Aflutter and PVCs. Has established animal trainer PLAN Treating diagnosis: Fibrotic HP ILD medications at end of visit: Prednisone, cellcept He requires steroid sparing therapy for fHP with cellcept. He experienced steroid side effects including weight gain, hypertension, fluid retention, hyperglycemia, and skin atrophy and requires a steroid sparing agent to maintain control of his illness Continue pulmicort neb continue Duoneb four times daily Continue albuterol as needed Continue LTOT Continue treatment for GERD with protonix while on steroids Hold off on ofev with improving symptoms. Cost is also too high. Continue prednisone taper Once completes shingles treatment, start prophylaxis with 400 mg daily. Can stop once prednisone is tapered I personally monitored for side effects of high risk medications. Follow up 8 weeks with PFTs ILD CHECKLIST Was the patient discussed at a multidisciplinary discussion?: No Is the patient being treated with oxygen therapy?: Yes- continuous Does the patient have pulmonary hypertension: Suspected but not yet confirmed Is the patient being referred for transplantation?: No BMI limitation Tru Simon MD Encounter Diagnosis ICD-10-CM 1. Hypersensitivity pneumonitis (HCC) J67.9 mycophenolate Mofetil (CELLCEPT) 500 mg tablet 2. 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 Chronic respiratory failure with hypoxia (HCC) J96.11 4. Gastroesophageal reflux disease, unspecified whether esophagitis present K21.9 5. Class 2 obesity due to excess calories with body mass index (BMI) of 36.0 to 36.9 in adult, unspecified whether serious comorbidity present E66.812 Z68.36 E66.09 6. Herpes zoster without complication B02.9 documented in this encounter [facility] 09-18-2024 Telephone encounter Note Form received from [facility] placed on signing tray Priya Pedersen MA [facility] 09-18-2024 Miscellaneous Notes Form received from [facility] placed on signing tray Priya Pedersen MA documented in this encounter [facility] 09-17-2024 Telephone encounter Note Royer is informed Priya Pedersen MA [facility] 09-17-2024 Miscellaneous Notes Royer is informed Priya Pedersen MA Verbal order given for PT. Royer PT from [facility] called requesting Verbal orders to start PT one time a week for nine weeks Priya Pedersen MA documented in this encounter [facility] 09-17-2024 Telephone encounter Note Verbal order given for PT. [facility] 09-17-2024 Telephone encounter Note Royer PT from [facility] called requesting Verbal orders to start PT one time a week for nine weeks Priya Pedersen MA [facility] 09-17-2024 Telephone encounter Note Form faxed back Priya Pedersen MA [facility] 09-17-2024 Miscellaneous Notes Form faxed back Priya Pedersen MA Signed. Please return fax. Chung faxed over a form placed on signing tray Priya Pedersen MA documented in this encounter [facility] 09-17-2024 Telephone encounter Note Signed. Please return fax. [facility] 09-17-2024 Telephone encounter Note Chung faxed over a form placed on signing tray Priya Pedersen MA [facility] 09-10-2024 Note Addended by: ALMA GILL on: 09/10/2024 04:06 PM Modules accepted: Orders [facility] 09-10-2024 Miscellaneous Notes Addended by: ALMA GILL on: 09/10/2024 04:06 PM Modules accepted: Orders Rx for Freestyle sent in. She states that they don't check but she will start. She has a glucose monitor but he does not like getting his finger pricked so she would like for a freestyle Priya Pedersen MA Reviewed labs, this reading was from yesterday. ocular care technician states they did not receive the lab until 11 pm last night. Please notify the patient's about the reading. Does he have supplies to check his BS at home? [facility] lab called for a glucose reading of 35 Priya Pedersen MA documented in this encounter [facility] 09-10-2024 Telephone encounter Note Rx for Freestyle sent in. [facility] 09-10-2024 Telephone encounter Note She states that they don't check but she will start. She has a glucose monitor but he does not like getting his finger pricked so she would like for a freestyle Priya Pedersen MA [facility] 09-10-2024 Telephone encounter Note Reviewed labs, this reading was from yesterday. ocular care technician states they did not receive the lab until 11 pm last night. Please notify the patient's about the reading. Does he have supplies to check his BS at home? [facility] 09-10-2024 Telephone encounter Note [facility] lab called for a glucose reading of 35 Priya Pedersen MA [facility] 08-28-2024 Instructions Francesco Tobias - 08/28/2024 3:37 PM EDT Can use wider shoes for the bunion or gel padding documented in this encounter [facility] 08-28-2024 Note [facility] 08-28-2024 History of Presen t illness Narrative @MTNAILS@ Subjective: Patient presents to clinic c/o painful toenails. They state that the nails are especially painful with shoe gear and pressure. No other pedal complaints at this time. Patient states no change in medications or medical history since last visit. Objective: Patient presents to clinic ambulating in sneakers Vasc: DP and PT pulses are nonpalpable left. CFT is less than 5 seconds left. Skin temperature is warm to cool proximal to distal left. Neuro: Protective sensation is absent to the foot and toes when tested with the 5.07 SWM left. Vibratory sensation is absent at the hallux IPJ left. Derm: Nails 1-5 left are discolored-yellow, thick, crumbly, dystrophic and with subungal debris. Skin is of normal turgor, texture and hair growth is absent left. There are no hyperkeratosis, ulcerations, scars, verruca or other lesions noted. Ortho: there is bka, right. Hallux valgus deformity to left foot. Assessment: (B35.1) Onychomycosis (primary encounter diagnosis) (Z89.511) 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) (M20.12) Hallux valgus of left foot Plan: Patient was seen and evaluated. Nails 1-5 left were debrided in length and thickness. Q7 modifier. Small bleed to left 3rd toe. Band aide applied. Reviewed pvr from 2023. Has normal tbi to left foot. Patient is to contact the office if they have any issues. Discussed bunion of left foot. Continue with wider shoes and gel padding dispensed. Francesco Tobias DPM documented in this encounter [facility] 08-26-2024 Telephone encounter Note Na. My chart message sent. Please place order . Thank you. Suzanne Almaguer MA [facility] 08-26-2024 Telephone encounter Note ----- Message from Alma Gill APRN.TAG MACHINE OPERATOR sent at 08/26/2024 1:23 PM EDT ----- CBC stable Sodium is low again at 127- can he cut back on his Lasix to twice daily for the next 3 days and recheck BMP on Saturday? [facility] 08-26-2024 Miscellaneous Notes Na. My chart message sent. Please place order . Thank you. Suzanne Almaguer MA ----- Message from Alma Gill APRN.TAG MACHINE OPERATOR sent at 08/26/2024 1:23 PM EDT ----- CBC stable Sodium is low again at 127- can he cut back on his Lasix to twice daily for the next 3 days and recheck BMP on Saturday? documented in this encounter [facility] 08-26-2024 Nurse Note This nurse infused 1 ML dilute Difinity IV at 1235, another 1 ML dilute Difinity infused at 1238 as directed by Echo tach, and another 2 ML dilute Difinity infused a7 1241 as directed by the mri tech for a total of 4 ML Dilute Difinity IV injected to the Left PIV. Patient tolerated the procedure well. The PIV was removed without issue and patient was assisted from Echo table to wheelchair. [facility] 08-26-2024 Nurse Note This nurse infused 1 ML dilute Difinity IV at 1235, another 1 ML dilute Difinity infused at 1238 as directed by Echo tach, and another 2 ML dilute Difinity infused a7 1241 as directed by the mri tech for a total of 4 ML Dilute Difinity IV injected to the Left PIV. Patient tolerated the procedure well. The PIV was removed without issue and patient was assisted from Echo table to wheelchair. documented in this encounter [facility] 08-21-2024 Miscellaneous Notes Patient is informed Priya Pedersen MA ----- Message from Alma Gill APRN.TAG MACHINE OPERATOR sent at 08/20/2024 9:15 AM EDT ----- Sodium improved. CBC is stable. documented in this encounter [facility] 08-21-2024 Telephone encounter Note Patient is informed Priya Pedersen MA [facility] 08-21-2024 Telephone encounter Note ----- Message from Alma Gill APRN.CNP sent at 08/20/2024 9:15 AM EDT ----- Sodium improved. CBC is stable. [facility] 08-17-2024 Instructions Beatrice Sarmiento MD - 08/17/2024 12:00 PM EDT We will get a lipid panel with your next blood work documented in this encounter [facility] 08-17-2024 History of Presen t illness Narrative Images from the original note were not included. [facility] SE[facility] [place] [facility] [address] [facility] [id number] OUTPATIENT VISIT DATE 08/17/2024 PRIMARY CARE PHYSICIAN: Alma Gill [address] [place] [id number] HISTORY OF PRESENT ILLNESS: Mr. Peterson is a 69 year old with a history of coronary artery disease and remote coronary bypass grafting, chronic diastolic congestive heart failure, hypertension, dyslipidemia, gastroesophageal reflux disease, peripheral arterial disease with history of right BKA who presents to the office for routine follow-up. Patient continues to have difficulty with shortness of breath. He is currently maintained on 3 L oxygen nasal cannula. He has not had symptoms consistent with PND orthopnea. He denies palpitations, lightheadedness, dizziness, or syncope. 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 Peripheral vascular disease S/P CABG (coronary artery bypass graft) Umbilical hernia PAST SURGICAL HISTORY Procedure Laterality Date BACK SURGERY HX 2017 CABG (1) VEIN GRAFT & ARTERIAL GRAFT 2001 CABG x4 COLONOSCOPY 2007 FINGER AMPUTATION (SPECIFY DIGIT) HX HIP SURGERY HX 1999 1999, 2019 Replacement Right and left LEG AMPUTATION HX Right 2018 PAST SURGICAL HISTORY OF coccyx for pilonidal cyst REMV CATARACT EXTRACAP,INSERT LENS Bilateral SOCIAL HISTORY Social History Tobacco Use Smoking status: Former Current packs/day: 0.00 Average packs/day: 2.0 packs/day for 40.0 years (80.0 ttl pk-yrs) Types: Cigarettes Start date: 05/13/1961 Quit date: 05/13/2001 Years since quittin.2 Smokeless tobacco: Former Types: Chew Vaping Use Vaping status: Never Used Substance Use Topics Alcohol use: Yes Alcohol/week: 10.0 standard drinks of alcohol Types: 10 Cans of beer per week Drug use: Never FAMILY HISTORY Problem Relation Age of Onset Ovarian cancer Mother other (afib) Mother COPD Mother Asthma Mother Heart Father heart attack other (Chronic oxygen) Father other (bladder cancer) Maternal Aunt Cancer Maternal Aunt Cancer Maternal Uncle Heart Paternal Uncle Leukemia Paternal Uncle Colon Cancer No Family History ALLERGIES: ALLERGIES Allergen Reactions Animal Dander Other: See Comments Anything with fur Seasonal Allergies Other: See Comments Stuffy nose, headaches MEDICATIONS: predniSONE (DELTASONE) 10 mg tablet TAKE 2 TABLETS BY MOUTH ONCE DAILY FOR 21 DAYS, THEN 1.5 TABLETS ONCE DAILY FOR 21 DAYS, THEN 1 TABLET ONCE DAILY FOR 21 DAYS, THEN 0.5 TABLETS ONCE DAILY FOR 21 DAYS. isosorbide mononitrate ER (IMDUR) 30 mg 24 hr tablet Take 1 tablet by mouth once daily. gabapentin (NEURONTIN) 300 mg capsule TAKE 2 CAPSULES BY MOUTH EVERY MORNING AND 3 CAPSULES AT BEDTIME FOR 30 DAYS. Strength: 300 mg hydrOXYzine HCl (ATARAX) 25 mg tablet Take 2 tablets by mouth two times a day. budesonide (PULMICORT) 0.5 mg/2 mL nebulizer solution Use 2 mL via nebulizer two times a day. ipratropium-albuterol (DUONEB) 0.5 mg-3 mg(2.5 mg base)/3 mL nebu Inhale 3 mL as instructed every 4 hours while awake. metoprolol succinate ER (TOPROL XL) 25 mg 24 hr tablet Take 1 tablet by mouth every afternoon. clopidogrel (PLAVIX) 75 mg tablet Take 1 tablet by mouth once daily. pantoprazole DR (PROTONIX) 40 mg tablet Take 1 tablet by mouth once daily. mycophenolate mofetil (CELLCEPT) 250 mg capsule Take 1 capsule by mouth two times a day for 14 days, THEN 2 capsules two times a day for 14 days, THEN 4 capsules two times a day for 14 days, THEN 6 capsules two times a day. rosuvastatin (CRESTOR) 20 mg tablet Take 1 tablet by mouth daily at bedtime. lisinopril 2.5 mg tablet Take 1 tablet by mouth two times a day. Hold if SBP less than 110 ezetimibe (ZETIA) 10 mg tablet Take 1 tablet by mouth once daily. guaiFENesin (MUCINEX) 600 mg 12 hr tablet Take 1 tablet by mouth two times a day as needed for cold/allergy symptoms. traZODone (DESYREL) 100 mg tablet TAKE 2 TABLETS BY MOUTH DAILY AT BEDTIME furosemide (LASIX) 40 mg tablet Take 1 tablet by mouth three times a week. escitalopram oxalate (LEXAPRO) 20 mg tablet Take 1 tablet by mouth once daily. OXYGEN, HOME THERAPY, 3 L/min by Nasal Cannula route as directed. fluticasone (FLONASE) 50 mcg/actuation nasal spray spray 1 spray into each nostril every day nitroglycerin sublingual (NITROSTAT) 0.4 mg SL tablet Dissolve 1 tablet under the tongue every 5 minutes as needed for chest pain. albuterol sulfate 90 mcg/actuation aebs Inhale 1-2 Puffs as instructed every 4 hours as needed for wheezing/shortness of breath. Lactobacillus acidophilus (PROBIOTIC) 10 billion cell cap Take 1 capsule by mouth once daily. acetaminophen (TYLENOL EXTRA STRENGTH) 500 mg tablet Take 2 tablets by mouth every 8 hours as needed for pain. FOR PAIN. Zinc 50 mg tab Take 50 mg by mouth once daily. aspirin, enteric coated (ASPIRIN, ENTERIC COATED) 81 mg EC tablet Take 81 mg by mouth once daily. multivit-min/folic/vit K/lycop (ONE-A-DAY MEN'S MULTIVITAMIN ORAL) Take by mouth once daily. colestipol (COLESTID) 1 gram tablet Take 1 tablet by mouth two times a day. (Patient not taking: Reported on 08/17/2024) REVIEW OF SYSTEMS: Review of Systems Constitutional: Negative for chills, fever, malaise/fatigue and weight loss. HENT: Negative for hearing loss and sore throat. Eyes: Negative for blurred vision and double vision. Respiratory: Negative. Cardiovascular: Negative. Gastrointestinal: Positive for heartburn. Genitourinary: Negative for dysuria, frequency, hematuria and urgency. Musculoskeletal: Negative. Skin: Negative. Neurological: Negative for dizziness, seizures, loss of consciousness, weakness and headaches. Endo/Heme/Allergies: Negative for environmental allergies. Does not bruise/bleed easily. Psychiatric/Behavioral: Negative for depression. PHYSICAL EXAMINATION: BP 133/81 Pulse 77 SpO2 96[at 2L O2 continuous]% General: Pleasant gentleman sitting appears comfortable no apparent distress. He is alert and oriented x3 HEENT: Carotid upstrokes are brisk bilaterally. There are bilateral carotid bruits right greater than left. No JVD. Pulmonary: Diffuse end expiratory wheezes with occasional crackles noted throughout. Cardiovascular: Normal S1, S2 with regular rate and rhythm. No murmurs, rubs, or gallops Extremities: Right BKA noted. Left lower extremity no significant edema. Difficult to palpate distal pulses. CARDIOVASCULAR MEDICINE TESTING: ECG in the office 01/29/2023: Sinus bradycardia with first-degree AV block. No significant ST or T wave changes Cardiac Catheterization/PCI 08/08/2022: Angiography: LEFT MAIN: not imaged LEFT CIRCUMFLEX: Not imaged LEFT ANTERIOR DESCENDING: Not imaged. RIGHT CORONARY ARTERY: Tortuous calcified proximal RCA with multiple lesion in the proximal mid and distal vessle At this point, the procedure was terminated. All diagnostic wires and catheters were removed. PTCA: Complex Multiple inflation with NC balloon . Unable to cross with cutting balloon . Not good anatomy for orbital rotablator due to the angulation. Proximal RCA dissection with JASEN II flow Procedure aborted Will cont bradyta Regadenoson Myoview Stress 06/19/2022: CONCLUSIONS: 1. SPECT Perfusion Study: Abnormal. 2. There is no scintigraphic evidence for inducible ischemia. 3. There is a moderate (10-20%) fixed perfusion defect in the LCX territory. 4. Left ventricle is normal in size. The left ventricle systolic function is normal. 5. This is an intermediate risk scan. Gated Stress IR:3D Gated Rest IR:3D LVEF % 69 64 Echocardiogram 02/20/2023: - The left ventricle is normal in size. There is mild concentric left ventricular hypertrophy. Left ventricular systolic function is normal. EF = 57 5% (2D biplane) Grade I left ventricular diastolic dysfunction. - The right ventricle is normal in size. Right ventricular systolic function is low normal. Tricuspid annular displacement is 2.6 cm. - The left atrial cavity is mildly dilated. Val 35 ml/m . - The right atrial cavity is dilated. - There are no significant valvular abnormalities. - There is no pericardial effusion. - The patient has not had a prior CC echocardiographic exam for comparison. CT Chest 05/20/2023: Heart, pericardium, and thoracic vessels: Normal caliber thoracic aorta and main pulmonary artery. Moderate to severe atherosclerotic calcification. Borderline cardiomegaly. Mitral annular calcification. Unchanged myocardial fat deposition along the left ventricular free wall. No pericardial effusion or thickening. Status post CABG with severe ione coronary artery atherosclerotic calcifications are noted, although the study is not optimized for coronary assessment. Carotid Ultrasound 08/15/2023: IMPRESSION RIGHT SIDE Common carotid artery: Plaque visualized without evidence of hemodynamically significant stenosis. Internal carotid artery: 20-39% stenosis. External carotid artery: Elevated velocities and plaque noted. Vertebral artery: Patent and antegrade flow noted. Abnormal signal suggests pre-steal. Subclavian artery: 50-99% stenosis. LEFT SIDE Common carotid artery: Plaque visualized without evidence of hemodynamically significant stenosis. Internal carotid artery: 40-59% stenosis. External carotid artery: Elevated velocities and plaque noted. Vertebral artery: Patent and antegrade flow noted. I have personally reviewed the Electrocardiogram, Laboratory Testing, Echocardiogram, and Cardiac Catheterization/Percutaneous Coronary Intervention (PCI). IMPRESSION: Mr. Peterson is a 69 year old gentleman with history of remote coronary bypass grafting who did undergone catheterization in July 2022. He was found to have a patent CUEVAS-LAD, SVG-OM, SVG-diagonal. He had an occluded SVG to the RCA. He was subsequently referred for percutaneous coronary intervention of the right coronary artery. The latter was attempted July 2022. He had a resulting dissection of the proximal right coronary artery due to severely calcified diseased vessel. No equipment could be passed past the proximal vessel. The procedure was aborted and patient was treated with medical therapy. 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 He presents the office for routine follow-up. PLAN AND RECOMMENDATIONS: 1. 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 Continue current medical therapy and risk factor modification. Patient has been maintained on long-term Plavix therapy 2. Chronic diastolic congestive heart failure (HCC) - ICD9: 428.32, 428.0, ICD10: I50.32 Well-controlled on current diuretic therapy 3. Essential hypertension - ICD9: 401.9, ICD10: I10 Adequate control on current regimen. 4. Mixed hyperlipidemia - ICD9: 272.2, ICD10: E78.2 Maintained on rosuvastatin 20 mg daily and/Zetia 10 mg daily. Repeat blood work - LIPID PANEL, NONFASTING 5. Peripheral vascular disease - ICD9: 443.9, ICD10: I73.9 6. Bilateral carotid artery stenosis - ICD9: 433.10, 433.30, ICD10: I65.23 Beatrice Sarmiento MD documented in this encounter [facility] 08-17-2024 Note [facility] 08-11-2024 Telephone encounter Note Both scripts were sent in 05/18/24 for a years supply. Precious Lacy MA [facility] 08-11-2024 Miscellaneous Notes Both scripts were sent in 05/18/24 for a years supply. Precious Lacy MA documented in this encounter [facility] 08-05-2024 Telephone encounter Note [employer] form placed it on the signing tray Priya Pedersen MA [facility] 08-05-2024 Miscellaneous Notes [employer] form placed it on the signing tray Priya Pedersen MA documented in this encounter [facility] 07-31-2024 Telephone encounter Note Images from the original note were not included. Admin [facility] by Dr. Simon. Admin scanned into chart (scanned documents) on 07/31/2024. [facility] 07-31-2024 Miscellaneous Notes Images from the original note were not included. Admin [facility]ed [facility], signed by Dr. Simon. Admin scanned into chart (scanned documents) on 07/31/2024. documented in this encounter [facility] 07-22-2024 Telephone encounter Note Portable oxygen has been faxed to [facility] Priya Pedersen MA [facility] 07-22-2024 Miscellaneous Notes Portable oxygen has been faxed to [facility] Priya Pedersen MA documented in this encounter [facility] 07-21-2024 Telephone encounter Note patient electronically requesting refills as follows: Last seen 07/14/24 . Last refill 03/31/24 . Requested Prescriptions Pending Prescriptions Disp Refills isosorbide mononitrate ER (IMDUR) 30 mg 24 hr tablet 90 tablet 1 Sig: Take 1 tablet by mouth once daily. Please review and advise. Precious Lacy MA [facility] 07-21-2024 Miscellaneous Notes patient electronically requesting refills as follows: Last seen 07/14/24 . Last refill 03/31/24 . Requested Prescriptions Pending Prescriptions Disp Refills isosorbide mononitrate ER (IMDUR) 30 mg 24 hr tablet 90 tablet 1 Sig: Take 1 tablet by mouth once daily. Please review and advise. Precious Lacy MA documented in this encounter [facility] 07-20-2024 Telephone encounter Note Form received from [facility] placed on signing tray Priya Pedersen MA [facility] 07-20-2024 Miscellaneous Notes Form received from [facility] placed on signing tray Priya Pedersen MA documented in this encounter [facility] 07-16-2024 History of Presen t illness Narrative Radiology Service Progress Note PATIENT NAME: Mars Peterson DATE OF SERVICE: July 16, 2024 TIME: 2:22 PM PATIENT IDENTITY VERIFICATION COMPLETED USING TWO (2) IDENTIFIERS: Name and Date of confirmed by patient verbally. FALL SCREENING: Has the patient had 2 falls in the last year or 1 fall with injury or currently using an Ambulatory Assistive Device (Walker, Cane, Wheelchair, Crutches, etc.)? No PATIENT GENDER DATA: Assigned male at PATIENT RELEVANT IMPLANT DATA REVIEWED: Not Applicable PATIENT PRESENTS WITH AN IMPLANTABLE OR ATTACHED LEAD SHOP OPERATOR: No RADIOLOGY DEPARTMENT: CT; Exam(s) Completed: Chest PERIPHERAL IV DATA: Not applicable SIGNED BY: KERVIN Vela July 16, 2024 2:22 PM documented in this encounter [facility] 07-16-2024 Note HNO ID: [id number] Author: CASH MCDANIEL CT Service: Radiology Author Type: Technologist Type: Progress Notes Filed: 07/16/2024 14:22 Note Text: Radiology Service Progress Note PATIENT NAME: Mars Peterson DATE OF SERVICE: July 16, 2024 TIME: 2:22 PM PATIENT IDENTITY VERIFICATION COMPLETED USING TWO (2) IDENTIFIERS: Name and Date of confirmed by patient verbally. FALL SCREENING: Has the patient had 2 falls in the last year or 1 fall with injury or currently using an Ambulatory Assistive Device (Walker, Cane, Wheelchair, Crutches, etc.)? No PATIENT GENDER DATA: Assigned male at PATIENT RELEVANT IMPLANT DATA REVIEWED: Not Applicable PATIENT PRESENTS WITH AN IMPLANTABLE OR ATTACHED LEAD SHOP OPERATOR: No RADIOLOGY DEPARTMENT: CT; Exam(s) Completed: Chest PERIPHERAL IV DATA: Not applicable SIGNED BY: KERVIN Vela July 16, 2024 2:[address] [facility] 07-14-2024 Note SARS-COV-2 (AGENT OF COVID-19) RNA: Not detected INFLUENZA A RNA: Not detected INFLUENZA B RNA: Not detected RESPIRATORY SYNCYTIAL VIRUS (RSV) RNA: Not detected [facility] Comment on above: Performed By: #### [id number] ####[facility] [id number] [address] [facility] [place] 07-14-2024 Note HNO ID: [id number] Author: ALMA GILL APRN.TAG MACHINE OPERATOR Service: ? Author Type: Nurse Practitioner Type: Progress Notes Filed: 07/20/2024 18:08 Note Text: CHIEF COMPLAINT: Mars Peterson is a 69 year old male who presents for 3 month follow up. His is present with him today. I reviewed past medical, surgical, social, and family histories today and updated chart. Allergies, chronic medications, and supplements were also reviewed. He presents today in a wheelchair and is on continuous oxygen at 3L NC. Following with pulmonary for ILD Dr. Tru Simon On prednisone taper Considering Cellcept pending approval BS running around 89 Currently on Pulmicort neb and Duoneb 4 times daily Albuterol prn Completing CT chest They are asking for a potable oxygen concentrator since it is difficult for him to drag around a large tank when out of the house Echo was ordered but hasn't been completed yet Cough is still productive, taking Mucinex BID Taking his Lasix 3 days a week 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 DJD (degenerative joint disease) Essential hypertension Heart attack ([facility]) 2000 States his previous animal trainer told him he had a heart attack based on EKG (in [place]) ILD (interstitial lung disease) ([facility]) Neuropathy 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 Peripheral vascular disease ([facility]) S/P CABG (coronary artery bypass graft) Umbilical hernia PAST SURGICAL HISTORY Procedure Laterality Date BACK SURGERY HX 2017 CABG (1) VEIN GRAFT AND ARTERIAL GRAFT 2001 CABG x4 COLONOSCOPY 2006 FINGER AMPUTATION (SPECIFY DIGIT) HX HIP SURGERY HX 1999 1999, 2019 Replacement Right and left LEG AMPUTATION HX Right 2018 PAST SURGICAL HISTORY OF coccyx for pilonidal cyst REMV CATARACT EXTRACAP,INSERT LENS Bilateral Social History Tobacco Use Smoking status: Former Current packs/day: 0.00 Average packs/day: 2.0 packs/day for 40.0 years (80.0 ttl pk-yrs) Types: Cigarettes Start date: 05/13/1961 Quit date: 05/13/2001 Years since quittin.2 Smokeless tobacco: Former Types: Chew Vaping Use Vaping status: Never Used Substance Use Topics Alcohol use: Yes Alcohol/week: 10.0 standard drinks of alcohol Types: 10 Cans of beer per week Drug use: Never ALLERGIES Allergen Reactions Animal Dander Other: See Comments Anything with fur Seasonal Allergies Other: See Comments Stuffy nose, headaches Family History Problem Relation Age of Onset Ovarian cancer Mother other (afib) Mother COPD Mother Asthma Mother Heart Father heart attack other (Chronic oxygen) Father other (bladder cancer) Maternal Aunt Cancer Maternal Aunt Cancer Maternal Uncle Heart Paternal Uncle Leukemia Paternal Uncle Colon Cancer No Family History Current Outpatient Medications Medication Sig Dispense Refill budesonide (PULMICORT) 0.5 mg/2 mL nebulizer solution Use 2 mL via nebulizer two times a day. 360 mL 1 ipratropium-albuterol (DUONEB) 0.5 mg-3 mg(2.5 mg base)/3 mL nebu Inhale 3 mL as instructed every 4 hours while awake. 360 mL 5 metoprolol succinate ER (TOPROL XL) 25 mg 24 hr tablet Take 1 tablet by mouth every afternoon. 90 tablet 1 clopidogrel (PLAVIX) 75 mg tablet Take 1 tablet by mouth once daily. 90 tablet 1 triamcinolone acetonide (KENALOG) 0.1 % cream Apply to affected area two times a day. [address] (PROTONIX) 40 mg tablet Take 1 tablet by mouth once daily. 90 tablet 1 predniSONE (DELTASONE) 10 mg tablet Take 2 tablets by mouth once daily for 21 days, THEN 1.5 tablets once daily for 21 days, THEN 1 tablet once daily for 21 days, THEN 0.5 tablets once daily for 21 days. 105 tablet 0 mycophenolate mofetil (CELLCEPT) 250 mg capsule Take 1 capsule by mouth two times a day for 14 days, THEN 2 capsules two times a day for 14 days, THEN 4 capsules two times a day for 14 days, THEN 6 capsules two times a day. 1276 capsule 0 rosuvastatin (CRESTOR) 20 mg tablet Take 1 tablet by mouth daily at bedtime. 90 tablet 3 lisinopril 2.5 mg tablet Take 1 tablet by mouth two times a day. Hold if SBP less than 110 180 tablet 3 ezetimibe (ZETIA) 10 mg tablet Take 1 tablet by mouth once daily. 90 tablet 3 guaiFENesin (MUCINEX) 600 mg 12 hr tablet Take 1 tablet by mouth two times a day as needed for cold/allergy symptoms. 60 tablet 2 traZODone (DESYREL) 100 mg tablet TAKE 2 TABLETS BY MOUTH DAILY AT BEDTIME 180 tablet 1 isosorbide mononitrate ER (IMDUR) 30 mg 24 hr tablet Take 1 tablet by mouth once daily. 90 tablet 1 furosemide (LASIX) 40 mg tablet Take 1 tablet by mouth three times a week. 36 tablet 1 escitalopram oxalate (LEXAPRO) 20 mg tablet Take 1 tablet by mouth once daily. 90 tablet 1 colestipol (COLESTID) 1 gram tablet Take 1 tablet (more content not included)... [facility] 07-14-2024 History of Presen t illness Narrative CHIEF COMPLAINT: Mars Peterson is a 69 year old male who presents for 3 month follow up. His is present with him today. I reviewed past medical, surgical, social, and family histories today and updated chart. Allergies, chronic medications, and supplements were also reviewed. He presents today in a wheelchair and is on continuous oxygen at 3L NC. Following with pulmonary for ILD Dr. Tru Simon On prednisone taper Considering Cellcept pending approval BS running around 89 Currently on Pulmicort neb and Duoneb 4 times daily Albuterol prn Completing CT chest They are asking for a potable oxygen concentrator since it is difficult for him to drag around a large tank when out of the house Echo was ordered but hasn't been completed yet Cough is still productive, taking Mucinex BID Taking his Lasix 3 days a week 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 Peripheral vascular disease ([facility]) S/P CABG (coronary artery bypass graft) Umbilical hernia PAST SURGICAL HISTORY Procedure Laterality Date BACK SURGERY HX 2017 CABG (1) VEIN GRAFT & ARTERIAL GRAFT 2001 CABG x4 COLONOSCOPY 2006 FINGER AMPUTATION (SPECIFY DIGIT) HX HIP SURGERY HX 1999 1999, 2019 Replacement Right and left LEG AMPUTATION HX Right 2018 PAST SURGICAL HISTORY OF coccyx for pilonidal cyst REMV CATARACT EXTRACAP,INSERT LENS Bilateral Social History Tobacco Use Smoking status: Former Current packs/day: 0.00 Average packs/day: 2.0 packs/day for 40.0 years (80.0 ttl pk-yrs) Types: Cigarettes Start date: 05/13/1961 Quit date: 05/13/2001 Years since quittin.2 Smokeless tobacco: Former Types: Chew Vaping Use Vaping status: Never Used Substance Use Topics Alcohol use: Yes Alcohol/week: 10.0 standard drinks of alcohol Types: 10 Cans of beer per week Drug use: Never ALLERGIES Allergen Reactions Animal Dander Other: See Comments Anything with fur Seasonal Allergies Other: See Comments Stuffy nose, headaches Family History Problem Relation Age of Onset Ovarian cancer Mother other (afib) Mother COPD Mother Asthma Mother Heart Father heart attack other (Chronic oxygen) Father other (bladder cancer) Maternal Aunt Cancer Maternal Aunt Cancer Maternal Uncle Heart Paternal Uncle Leukemia Paternal Uncle Colon Cancer No Family History Current Outpatient Medications Medication Sig Dispense Refill budesonide (PULMICORT) 0.5 mg/2 mL nebulizer solution Use 2 mL via nebulizer two times a day. 360 mL 1 ipratropium-albuterol (DUONEB) 0.5 mg-3 mg(2.5 mg base)/3 mL nebu Inhale 3 mL as instructed every 4 hours while awake. 360 mL 5 metoprolol succinate ER (TOPROL XL) 25 mg 24 hr tablet Take 1 tablet by mouth every afternoon. 90 tablet 1 clopidogrel (PLAVIX) 75 mg tablet Take 1 tablet by mouth once daily. 90 tablet 1 triamcinolone acetonide (KENALOG) 0.1 % cream Apply to affected area two times a day. [address] (PROTONIX) 40 mg tablet Take 1 tablet by mouth once daily. 90 tablet 1 predniSONE (DELTASONE) 10 mg tablet Take 2 tablets by mouth once daily for 21 days, THEN 1.5 tablets once daily for 21 days, THEN 1 tablet once daily for 21 days, THEN 0.5 tablets once daily for 21 days. 105 tablet 0 mycophenolate mofetil (CELLCEPT) 250 mg capsule Take 1 capsule by mouth two times a day for 14 days, THEN 2 capsules two times a day for 14 days, THEN 4 capsules two times a day for 14 days, THEN 6 capsules two times a day. 1276 capsule 0 rosuvastatin (CRESTOR) 20 mg tablet Take 1 tablet by mouth daily at bedtime. 90 tablet 3 lisinopril 2.5 mg tablet Take 1 tablet by mouth two times a day. Hold if SBP less than 110 180 tablet 3 ezetimibe (ZETIA) 10 mg tablet Take 1 tablet by mouth once daily. 90 tablet 3 guaiFENesin (MUCINEX) 600 mg 12 hr tablet Take 1 tablet by mouth two times a day as needed for cold/allergy symptoms. 60 tablet 2 traZODone (DESYREL) 100 mg tablet TAKE 2 TABLETS BY MOUTH DAILY AT BEDTIME 180 tablet 1 isosorbide mononitrate ER (IMDUR) 30 mg 24 hr tablet Take 1 tablet by mouth once daily. 90 tablet 1 furosemide (LASIX) 40 mg tablet Take 1 tablet by mouth three times a week. 36 tablet 1 escitalopram oxalate (LEXAPRO) 20 mg tablet Take 1 tablet by mouth once daily. 90 tablet 1 colestipol (COLESTID) 1 gram tablet Take 1 tablet by mouth two times a day. 180 tablet 1 OXYGEN, HOME THERAPY, 3 L/min by Nasal Cannula route as directed. fluticasone (FLONASE) 50 mcg/actuation nasal spray spray 1 spray into each nostril every day 48 mL 1 nitroglycerin sublingual (NITROSTAT) 0.4 mg SL tablet Dissolve 1 tablet under the tongue every 5 minutes as needed for chest pain. 25 tablet 0 albuterol sulfate 90 mcg/actuation aebs Inhale 1-2 Puffs as instructed every 4 hours as needed for wheezing/shortness of breath. 1 Each 2 Lactobacillus acidophilus (PROBIOTIC) 10 billion cell cap Take 1 capsule by mouth once daily. acetaminophen (TYLENOL EXTRA STRENGTH) 500 mg tablet Take 2 tablets by mouth every 8 hours as needed for pain. FOR PAIN. 90 tablet 0 Zinc 50 mg tab Take 50 mg by mouth once daily. aspirin, enteric coated (ASPIRIN, ENTERIC COATED) 81 mg EC tablet Take 81 mg by mouth once daily. multivit-min/folic/vit K/lycop (ONE-A-DAY MEN'S MULTIVITAMIN ORAL) Take by mouth once daily. gabapentin (NEURONTIN) 300 mg capsule TAKE 2 CAPSULES BY MOUTH EVERY MORNING AND 3 CAPSULES AT BEDTIME FOR 30 DAYS. Strength: 300 mg 150 capsule 2 hydrOXYzine HCl (ATARAX) 25 mg tablet Take 2 tablets by mouth two times a day. 360 tablet 1 No current facility-administered medications for this visit. Review of Systems Constitutional: Positive for fatigue. Negative for appetite change, chills, diaphoresis, fever and unexpected weight change. HENT: Negative for congestion, ear pain, postnasal drip, rhinorrhea, sinus pressure, sinus pain, sneezing, sore throat and trouble swallowing. Eyes: Negative for visual disturbance. Respiratory: Positive for cough, chest tightness and shortness of breath (with exertion). Negative for wheezing. Cardiovascular: Positive for leg swelling. Negative for chest pain and palpitations. Gastrointestinal: Negative for abdominal pain, constipation, diarrhea, nausea and vomiting. Endocrine: Negative. Genitourinary: Negative. Musculoskeletal: Positive for gait problem ((poor balance, RLE amputation).). Negative for back pain and neck pain. Skin: Negative. Neurological: Positive for weakness. Negative for dizziness, seizures, syncope, light-headedness and headaches. Hematological: Negative. Psychiatric/Behavioral: Negative. BP 124/76 Pulse 62 Temp (Src) 97.5 (Oral) Resp 18 SpO2 97[3 L]% Physical Exam Vitals and nursing note reviewed. Constitutional: Appearance: He is obese. Comments: Sitting in wheelchair on portable oxygen HENT: Right Ear: Decreased hearing noted. Left Ear: Decreased hearing noted. Nose: Nose normal. Mouth/Throat: Mouth: Mucous membranes are moist. Eyes: Pupils: Pupils are equal, round, and reactive to light. Cardiovascular: Rate and Rhythm: Normal rate and regular rhythm. Heart sounds: Normal heart sounds, S1 normal and S2 normal. Comments: Right BKA Pulmonary: Effort: Pulmonary effort is normal. No tachypnea, accessory muscle usage or respiratory distress. Breath sounds: No stridor. Examination of the right-middle field reveals rales. Examination of the right-lower field reveals rales. Examination of the left-lower field reveals rales. Rales present. No wheezing or rhonchi. Abdominal: General: Bowel sounds are normal. There is no distension. Palpations: Abdomen is soft. Tenderness: There is no abdominal tenderness. Musculoskeletal: Left lower leg: No edema. 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 Skin: General: Skin is warm and dry. Neurological: Mental Status: He is alert and oriented to person, place, and time. Comments: Sitting in wheelchair Psychiatric: Mood and Affect: Mood normal. Behavior: Behavior normal. Cognition and Memory: Cognition normal. No visits with results within 1 Day(s) from this visit. Latest known visit with results is: Procedure on 04/27/2024 Component Date Value Ref Range Status FVC PRE (L) 04/27/2024 2.45 L Final FVC PREDICTED (L) 04/27/2024 4.35 L Final FVC LLN (L) 04/27/2024 3.24 L Final FVC ULN (L) 04/27/2024 5.49 L Final FEV1 PRE (L) 04/27/2024 1.85 L Final FEV1 PREDICTED (L) 04/27/2024 3.26 L Final FEV1 LLN (L) 04/27/2024 2.38 L Final FEV1 ULN (L) 04/27/2024 4.09 L Final FEV1/FVC PRE (%) 04/27/2024 75 % Final FEV1/FVC PREDICTED (%) 04/27/2024 76 % Final FEV1/FVC LLN (%) 04/27/2024 63 % Final FEF25% PRE (L/S) 04/27/2024 6.65 L/S Final FEF75% PRE (L/S0 04/27/2024 0.44 L/S Final FEF75% PREDICTED (L/S) 04/27/2024 0.69 L/S Final FEF75% LLN (L/S) 04/27/2024 0.25 L/S Final FEF75% ULN (L/S) 04/27/2024 1.79 L/S Final LDP87-99% PRE (L/S) 04/27/2024 1.39 L/S Final WPZ14-97% PREDICTED (L/S) 04/27/2024 2.52 L/S Final FOY96-40% LLN (L/S) 04/27/2024 1.09 L/S Final PEF PRE (L/S) 04/27/2024 7.82 L/S Final PEF LLN (L/S) 04/27/2024 6.28 L/S Final PEF ULN (L/S) 04/27/2024 11.18 L/S Final SVC PREDICTED (L) 04/27/2024 4.35 L/S Final SVC LLN (L) 04/27/2024 3.24 L/S Final SVC ULN (L) 04/27/2024 5.49 L/S Final IC PREDICTED (L) 04/27/2024 2.90 L/S Final ERV PREDICTED (L) 04/27/2024 1.45 L/S Final DLCO (ml/min/mmHg) 04/27/2024 12.44 ml/min/mmHg Final DLCO PREDICTED (ml/min/mmHg) 04/27/2024 26.78 ml/min/mmHg Final DLCO LLN (ml/min/mmHg) 04/27/2024 16.85 ml/min/mmHg Final DLCO ULN (ml/min/mmHg) 04/27/2024 36.72 ml/min/mmHg Final FET PRE (S) 04/27/2024 8.22 S Final VA (L) 04/27/2024 3.22 L Final VA PREDICTED (L) 04/27/2024 7.21 L Final DLCO/VA (ml/min/mmHg/L) 04/27/2024 3.86 ml/min/mmHg/L Final DLCO/VA PREDICTED (ml/min/mmHg/L) 04/27/2024 3.79 ml/min/mmHg/L Final DLCOcor PREDICTED (ml/min/mmHg) 04/27/2024 26.78 ml/min/mmHg Final ASSESSMENT/PLAN: 1. ILD (interstitial lung disease) (HCC) - ICD9: 515, ICD10: J84.9 (primary diagnosis) - Following with pulmonary. Continue current home medications per pulmonary. - Patient would benefit of portable oxygen concentrator so he can attend appointments with less effort than an oxygen tank. - Standing order placed for CBC and CMP if he would start Cellcept with pulmonary medicine. - COVID & INFLUENZA A/B & RSV PCR, ROUTINE - COMPREHENSIVE METABOLIC PANEL - COMPLETE BLOOD COUNT AND DIFFERENTIAL - PORTABLE OXYGEN CONCENTRATOR 2. Acute on chronic hypoxic respiratory failure (HCC) - ICD9: 518.84, 799.02, ICD10: J96.21 - COVID & INFLUENZA A/B & RSV PCR, ROUTINE 3. Dependence on supplemental oxygen - ICD9: V46.2, ICD10: Z99.81 - PORTABLE OXYGEN CONCENTRATOR 4. SOB (shortness of breath) on exertion - ICD9: 786.05, ICD10: R06.02 - PORTABLE OXYGEN 5. Wheezing - ICD9: 786.07, ICD10: R06.2 - COVID & INFLUENZA A/B & RSV PCR, ROUTINE 6. Neuropathy - ICD9: 355.9, ICD10: G62.9 - GABAPENTIN 300 MG CAPSULE 7. Anxiety and depression - ICD9: 300.00, 311, ICD10: F41.9, F32.A - Continue Lexapro 8. Itching - ICD9: 698.9, ICD10: L29.9 - HYDROXYZINE HCL 25 MG TABLET New medication(s) prescribed today: None. Counseling completed in adopting health behaviors such as avoiding excessive alcohol use, avoid tobacco use, improve nutrition, and engage in physical activities. Copy of written care plan, clinical summary, treatment plan, new medications, goals, and self management requirements were given to patient. Alma Gill APRN.EVANS documented in this encounter [facility] 07-13-2024 Telephone encounter Note Good Evening Dr Simon, We have received the prescription for Cellcept, but I have a question before he starts taken it. He is still taking prednisone. He is in the one tablet per day regiment. Should he stop the prednisone before he starts with the Cellcept? Also he has taken the Zpak. He was congested and he wasn't bring anything up. His breathing seems to be worse since he started the nebulizer and he has turned his oxygen up to 4 liters during the day and back to 3 liters at night. Any advice would be greatly appreciated. Thank you, Ivania Adams RN called and did symptom review - worsening oxygen requirements, increased cough and congestion. Advised he needs COVID and flu testing, no change in treatment otherwise as he already completed azithromycin, continue prednisone, needs updated imaging with CT chest. To seek ED treatment if worsens despite above. Tru Simon MD [facility] 07-13-[address] Evening Dr Simon, We have received the prescription for Cellcept, but I have a question before he starts taken it. He is still taking prednisone. He is in the one tablet per day regiment. Should he stop the prednisone before he starts with the Cellcept? Also he has taken the Zpak. He was congested and he wasn't bring anything up. His breathing seems to be worse since he started the nebulizer and he has turned his oxygen up to 4 liters during the day and back to 3 liters at night. Any advice would be greatly appreciated. Thank you, Ivania Adams RN called and did symptom review - worsening oxygen requirements, increased cough and congestion. Advised he needs COVID and flu testing, no change in treatment otherwise as he already completed azithromycin, continue prednisone, needs updated imaging with CT chest. To seek ED treatment if worsens despite above. Tru Simon MD documented in this encounter [facility] 07-07-2024 Telephone encounter Note Summary: ORDERS [place]ax [place] [employer] [facility] dated 06/29/24, placed on provider desk for review/signature. [facility] 07-07-2024 Miscellaneous Notes Summary: ORDERS Fax received from [employer] [facility] dated 06/29/24, placed on provider desk for review/signature. documented in this encounter [facility] 07-06-2024 Telephone encounter Note Received encounter request from Dr. Tom Simon; help with PA for Cellcept/Mycophenolate Mofetil 250 MG; PA done today 07/06/2024 thru [employer]; Vieyra: [id number]; outcome status; approved till 07/06/2025; ; Authorization # [id number]. DX - J84.9 ILD DX - J67.9 Hypersensitivity Pneumonitis [facility] 07-06-2024 Miscellaneous Notes Received encounter request from Dr. Tom Simon; help with PA for Cellcept/Mycophenolate Mofetil 250 MG; PA done today 07/06/2024 thru [employer]; Vieyra: [id number]; outcome status; approved till 07/06/2025; ; Authorization # [id number]. DX - J84.9 ILD DX - J67.9 Hypersensitivity Pneumonitis documented in this encounter [facility] 07-06-2024 Telephone encounter Note Faxed Priya Pedersen MA [facility] 07-06-2024 Miscellaneous Notes Faxed Priya Pedersen MA Form signed. Please return fax. Form to [place] patient's home health palced on signing tray Priya Pedersen MA documented in this encounter [facility] 07-06-2024 Telephone encounter Note Form signed. Please return fax. [facility] 07-06-2024 Telephone encounter Note Form to [place] patient's home health palced on signing tray Priya Pedersen MA [facility] 07-03-2024 Telephone encounter Note Form placed on signing tray from [facility] Priya Pedersen MA [facility] 07-03-2024 Miscellaneous Notes Form placed on signing tray from [facility] Priya Pedersen MA documented in this encounter [facility] 06-24-2024 Instructions Tru Simon MD - 06/24/2024 2:22 PM EST Stop trelegy Start pulmicort neb twice daily Start duoneb four times daily Have azithromycin on hand in case of exacerbation Keep weaning prednisone I will work on cellcept issues Get echo See me back in 3 months with lung function testing documented in this encounter [facility] 06-24-2024 Note [facility] 06-24-2024 History of Presen t illness Narrative Images from the original note were not included. Respiratory [place] Mars Peterson is a 69 year old male here for a follow up with the [facility] Interstitial Lung Disease Team. HISTORY OF PRESENT ILLNESS: Here for follow up of ILD and COPD Reports initially improved on prednisone. Recently has been sick Cannot afford trelegy - using breo Not using nebulizer Needed antibiotics x 1 since last OV Currently on 15 mg of prednisone Weight up 13 lbs from last visit On 3L O2 +cough productive, improved now No wheeze Shortness of breath improved On PFTs obstruction resolved with prednisone. FVC slightly lower REVIEW OF SYSTEMS: MRC Dyspnea Scale: 4. Stops for breath after about 100 m or after a few minutes on the level All others per history of present illness or otherwise negative on detailed 14 point review. 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 Peripheral vascular disease ([facility]) S/P CABG (coronary artery bypass graft) Umbilical hernia PAST SURGICAL HISTORY Procedure Laterality Date BACK SURGERY HX 2017 CABG (1) VEIN GRAFT & ARTERIAL GRAFT 2002 CABG x4 COLONOSCOPY 2007 FINGER AMPUTATION (SPECIFY DIGIT) HX HIP SURGERY HX 1999 1999, 2019 Replacement Right and left LEG AMPUTATION HX Right 2018 PAST SURGICAL HISTORY OF coccyx for pilonidal cyst REMV CATARACT EXTRACAP,INSERT LENS Bilateral SOCIAL HISTORY: Social History Tobacco Use Smoking status: Former Packs/day: 0.00 Years: 2.0 packs/day for 40.0 years (80.0 ttl pk-yrs) Types: Cigarettes Start date: 05/13/1961 Quit date: 05/13/2001 Years since quittin.1 Smokeless tobacco: Former Types: Chew Alcohol Use: Approximately 6 oz/week [which includes 10 Cans of beer per week] Drug Use: Never FAMILY HISTORY Problem Relation Age of Onset Ovarian cancer Mother other (afib) Mother COPD Mother Asthma Mother Heart Father heart attack other (Chronic oxygen) Father other (bladder cancer) Maternal Aunt Cancer Maternal Aunt Cancer Maternal Uncle Heart Paternal Uncle Leukemia Paternal Uncle Colon Cancer No Family History ALLERGIES Allergen Reactions Animal Dander Other: See Comments Anything with fur Seasonal Allergies Other: See Comments Stuffy nose, headaches CURRENT MEDICATIONS gabapentin (NEURONTIN) 300 mg capsule TAKE 2 CAPSULES BY MOUTH EVERY MORNING AND 3 CAPSULES AT BEDTIME FOR 30 DAYS. Strength: 300 mg metoprolol succinate ER (TOPROL XL) 25 mg 24 hr tablet Take 1 tablet by mouth every afternoon. clopidogrel (PLAVIX) 75 mg tablet Take 1 tablet by mouth once daily. triamcinolone acetonide (KENALOG) 0.1 % cream Apply to affected area two times a day. pantoprazole DR (PROTONIX) 40 mg tablet Take 1 tablet by mouth once daily. predniSONE (DELTASONE) 10 mg tablet Take 2 tablets by mouth once daily for 21 days, THEN 1.5 tablets once daily for 21 days, THEN 1 tablet once daily for 21 days, THEN 0.5 tablets once daily for 21 days. mycophenolate mofetil (CELLCEPT) 250 mg capsule Take 1 capsule by mouth two times a day for 14 days, THEN 2 capsules two times a day for 14 days, THEN 4 capsules two times a day for 14 days, THEN 6 capsules two times a day. rosuvastatin (CRESTOR) 20 mg tablet Take 1 tablet by mouth daily at bedtime. lisinopril 2.5 mg tablet Take 1 tablet by mouth two times a day. Hold if SBP less than 110 ezetimibe (ZETIA) 10 mg tablet Take 1 tablet by mouth once daily. guaiFENesin (MUCINEX) 600 mg 12 hr tablet Take 1 tablet by mouth two times a day as needed for cold/allergy symptoms. traZODone (DESYREL) 100 mg tablet TAKE 2 TABLETS BY MOUTH DAILY AT BEDTIME isosorbide mononitrate ER (IMDUR) 30 mg 24 hr tablet Take 1 tablet by mouth once daily. furosemide (LASIX) 40 mg tablet Take 1 tablet by mouth three times a week. escitalopram oxalate (LEXAPRO) 20 mg tablet Take 1 tablet by mouth once daily. colestipol (COLESTID) 1 gram tablet Take 1 tablet by mouth two times a day. busPIRone (BUSPAR) 5 mg tablet Take 1 tablet by mouth three times a day as needed. OXYGEN, HOME THERAPY, 3 L/min by Nasal Cannula route as directed. ipratropium-albuterol (DUONEB) 0.5 mg-3 mg(2.5 mg base)/3 mL nebu Inhale 3 mL as instructed every 4 hours as needed for wheezing/shortness of breath. fluticasone (FLONASE) 50 mcg/actuation nasal spray spray 1 spray into each nostril every day amenxoeyshj-lfzlxygwx-mbwdflci (TRELEGY ELLIPTA) 200-62.5-25 mcg inhalation powder Inhale 1 Puff as instructed once daily. nitroglycerin sublingual (NITROSTAT) 0.4 mg SL tablet Dissolve 1 tablet under the tongue every 5 minutes as needed for chest pain. albuterol sulfate 90 mcg/actuation aebs Inhale 1-2 Puffs as instructed every 4 hours as needed for wheezing/shortness of breath. Lactobacillus acidophilus (PROBIOTIC) 10 billion cell cap Take 1 capsule by mouth once daily. acetaminophen (TYLENOL EXTRA STRENGTH) 500 mg tablet Take 2 tablets by mouth every 8 hours as needed for pain. FOR PAIN. Zinc 50 mg tab Take 50 mg by mouth once daily. aspirin, enteric coated (ASPIRIN, ENTERIC COATED) 81 mg EC tablet Take 81 mg by mouth once daily. multivit-min/folic/vit K/lycop (ONE-A-DAY MEN'S MULTIVITAMIN ORAL) Take by mouth once daily. PHYSICAL EXAM: BP 136/70 Pulse 65 Temp (Src) 98 (Oral) Wt 281 lb 8.4 oz (127.7kg) SpO2 96[3 liters]% Physical Exam Constitutional: General: He is not in acute distress. Appearance: He is obese. He is not toxic-appearing. HENT: Head: Normocephalic and atraumatic. Nose: No congestion or rhinorrhea. Mouth/Throat: Mouth: Mucous membranes are moist. Pharynx: No oropharyngeal exudate or posterior oropharyngeal erythema. Eyes: General: No scleral icterus. Extraocular Movements: Extraocular movements intact. Conjunctiva/sclera: Conjunctivae normal. Cardiovascular: Rate and Rhythm: Normal rate and regular rhythm. Heart sounds: No murmur heard. No friction rub. No gallop. Pulmonary: Effort: No respiratory distress. Breath sounds: No stridor. Rales present. No wheezing or rhonchi. Abdominal: General: Abdomen is flat. Bowel sounds are normal. There is no distension. Palpations: Abdomen is soft. Tenderness: There is no abdominal tenderness. Musculoskeletal: General: No tenderness. Cervical back: Normal range of motion and neck supple. Right lower leg: No edema. Left lower leg: No edema. Skin: General: Skin is warm and dry. Capillary Refill: Capillary refill takes less than 2 seconds. Coloration: Skin is not jaundiced. Neurological: General: No focal deficit present. Mental Status: He is alert and oriented to person, place, and time. DATA REVIEWED (independently reviewed by myself) Laboratory Data Laboratory data reviewed in [facility] Care Everywhere. Pulmonary Function Data PFT available since last visit: Yes Six minute walk Six minute walk available since last visit: No Radiology Data New radiology data since last visit: No Echocardiogram Was an echo performed since last visit?: No Heart Catheterization Was a right heart catheterization performed since last visit?: No ASSESSMENT Mars Peterson is a 69 year old male with CPFE, former smoker, feather exposure, chronic oxygen dependence, GERD without esophagitis, CAD presenting for evaluation of ILD. 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 Recent exacerbation of ILD likely from viral infection, now O2 chronically since then. Not well enough for bronchoscopy. Have suggested mold testing which will do and removal of feathers from the household, along with trial of prednisone. Obstruction improved dramatically with steroids suggesting air trapping is improved. FVC down somewhat with increase in weight Medication costs are a major issue. Still too sick for biopsy. PLAN Treating diagnosis: Fibrotic HP ILD medications at end of visit: Prednisone, cellcept, will work on PA Stop trelegy Start pulmicort neb Start Duoneb four times daily Continue albuterol as needed Continue LTOT Continue treatment for GERD with protonix while on steroids Calcium and vitamin D supplementation while on high dose steroids Does not need PJP prophylaxis Hold off on ofev with improving symptoms. Cost is also too high. Continue prednisone taper Will work on cellcept approval Needs repeat echo to reevaluate for PH with CT findings, ?role for tyvaso Follow up 3 mo with PFTs ILD CHECKLIST Was the patient discussed at a multidisciplinary discussion?: No Is the patient being treated with oxygen therapy?: Yes- continuous Does the patient have pulmonary hypertension: Suspected but not yet confirmed Is the patient being referred for transplantation?: No BMI limitation Tru Simon MD Encounter Diagnosis ICD-10-CM 1. Hypersensitivity pneumonitis (HCC) J67.9 budesonide (PULMICORT) 0.5 mg/2 mL nebulizer solution ipratropium-albuterol (DUONEB) 0.5 mg-3 mg(2.5 mg base)/3 mL nebu azithromycin (ZITHROMAX) 250 mg tablet SPIROMETRY BASELINE ONLY LUNG DIFFUSION CAPACITY (DLCO) DISCONTINUED: vygldkczwr-omjvlewo-qkjxfcujrg (BREZTRI AEROSPHERE) 160-9-4.8 mcg/actuation HFA aerosol inhaler 2. 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 Acute hypoxic respiratory failure (HCC) J96.01 budesonide (PULMICORT) 0.5 mg/2 mL nebulizer solution ipratropium-albuterol (DUONEB) 0.5 mg-3 mg(2.5 mg base)/3 mL nebu azithromycin (ZITHROMAX) 250 mg tablet SPIROMETRY BASELINE ONLY LUNG DIFFUSION CAPACITY (DLCO) 5. Chronic obstructive pulmonary disease with acute exacerbation (HCC) J44.1 budesonide (PULMICORT) 0.5 mg/2 mL nebulizer solution ipratropium-albuterol (DUONEB) 0.5 mg-3 mg(2.5 mg base)/3 mL nebu azithromycin (ZITHROMAX) 250 mg tablet SPIROMETRY BASELINE ONLY LUNG DIFFUSION CAPACITY (DLCO) documented in this encounter [facility] 06-23-2024 Telephone encounter Note pharm requesting refills: Last office visit 03/30/2024. Last refill 05/25/2024 . Requested Prescriptions Pending Prescriptions Disp Refills gabapentin (NEURONTIN) 300 mg capsule 150 capsule 2 Sig: TAKE 2 CAPSULES BY MOUTH EVERY MORNING AND 3 CAPSULES AT BEDTIME FOR 30 DAYS. Strength: 300 mg Please review and advise. Suzanne Almaguer MA [facility] 06-23-2024 Miscellaneous Notes pharm requesting refills: Last office visit 03/30/2024. Last refill 05/25/2024 . Requested Prescriptions Pending Prescriptions Disp Refills gabapentin (NEURONTIN) 300 mg capsule 150 capsule 2 Sig: TAKE 2 CAPSULES BY MOUTH EVERY MORNING AND 3 CAPSULES AT BEDTIME FOR 30 DAYS. Strength: 300 mg Please review and advise. Suzanne Almaguer MA documented in this encounter [facility] 06-23-2024 Telephone encounter Note Patient requesting refills: Last office visit 03/30/2024. Last refill 03/31/2024 nov 06/30/2024 Requested Prescriptions Pending Prescriptions Disp Refills metoprolol succinate ER (TOPROL XL) 25 mg 24 hr tablet 90 tablet 1 Sig: Take 1 tablet by mouth every afternoon. clopidogrel (PLAVIX) 75 mg tablet 90 tablet 1 Sig: Take 1 tablet by mouth once daily. Please review and advise. Suzanne Almaguer MA [facility] 06-23-2024 Miscellaneous Notes Patient requesting refills: Last office visit 03/30/2024. Last refill 03/31/2024 nov 06/30/2024 Requested Prescriptions Pending Prescriptions Disp Refills metoprolol succinate ER (TOPROL XL) 25 mg 24 hr tablet 90 tablet 1 Sig: Take 1 tablet by mouth every afternoon. clopidogrel (PLAVIX) 75 mg tablet 90 tablet 1 Sig: Take 1 tablet by mouth once daily. Please review and advise. Suzanne Almaguer MA documented in this encounter [facility] 06-15-2024 Telephone encounter Note Left message for patient to call office. Need to know which DME he uses to send order for noct pulse ox [facility] 06-15-2024 Miscellaneous Notes Left message for patient to call office. Need to know which DME he uses to send order for noct pulse ox Do you want this nocturnal pulse oximetry done on O2 or room air? documented in this encounter [facility] 06-15-2024 Telephone encounter Note Do you want this nocturnal pulse oximetry done on O2 or room air? [facility] 06-09-2024 Telephone encounter Note Faxed Priya Pedersen MA [facility] 06-09-2024 Miscellaneous Notes Faxed Priya Pedersen MA Form signed. Please fax back. Form received from [facility] placed on signing trajose de jesus Pedersen MA documented in this encounter [facility] 06-09-2024 Telephone encounter Note Form signed. Please fax back. [facility] 06-09-2024 Telephone encounter Note Form received from [facility] placed on signing trajose de jesus Pedersen MA [facility] 06-08-2024 Telephone encounter Note Spoke with spouse. Cough increasing about 3-4 days ago with thick yellow production. No fever. Some sinus congestion and PND. No increased wheezing (he is on 5mg of prednisone daily). No sick contacts. Katelynn Huynh LPN [facility] 06-08-2024 Miscellaneous Notes Spoke with spouse. Cough increasing about 3-4 days ago with thick yellow production. No fever. Some sinus congestion and PND. No increased wheezing (he is on 5mg of prednisone daily). No sick contacts. Katelynn Huynh LPN documented in this encounter [facility] 05-28-2024 Telephone encounter Note Form needs signed for [facility] order: [id number] placed on signing tray Priya Pedersen MA [facility] 05-28-2024 Miscellaneous Notes Form needs signed for [facility] order: [id number] placed on signing tray Priya Pedersen MA documented in this encounter [facility] 05-26-2024 Telephone encounter Note Notes received from [facility] luis miguel signed in the back, placed on signing tray Priya Pedersen MA [facility] 05-26-2024 Miscellaneous Notes Notes received from [place] signed in the back, placed on signing tray Priya Pedersen MA documented in this encounter [facility] 05-25-2024 Telephone encounter Note Patient requesting refills: Last office visit 03/30/2024. Last refill 04/27/2024 for gabapentin mucinex was just filled denied that rx .pantoprazole last filled 03/31/2024 nov 06/30/2024 Requested Prescriptions Pending Prescriptions Disp Refills pantoprazole DR (PROTONIX) 40 mg tablet 90 tablet 1 Sig: Take 1 tablet by mouth once daily. gabapentin (NEURONTIN) 300 mg capsule 150 capsule 2 Sig: TAKE 2 CAPSULES BY MOUTH EVERY MORNING AND 3 CAPSULES AT BEDTIME FOR 30 DAYS. Strength: 300 mg guaiFENesin (MUCINEX) 600 mg 12 hr tablet 60 tablet 2 Sig: Take 1 tablet by mouth two times a day as needed for cold/allergy symptoms. Please review and advise. Suzanne Almaguer MA [facility] 05-25-2024 Miscellaneous Notes Patient requesting refills: Last office visit 03/30/2024. Last refill 04/27/2024 for gabapentin mucinex was just filled denied that rx .pantoprazole last filled 03/31/2024 nov 06/30/2024 Requested Prescriptions Pending Prescriptions Disp Refills pantoprazole DR (PROTONIX) 40 mg tablet 90 tablet 1 Sig: Take 1 tablet by mouth once daily. gabapentin (NEURONTIN) 300 mg capsule 150 capsule 2 Sig: TAKE 2 CAPSULES BY MOUTH EVERY MORNING AND 3 CAPSULES AT BEDTIME FOR 30 DAYS. Strength: 300 mg guaiFENesin (MUCINEX) 600 mg 12 hr tablet 60 tablet 2 Sig: Take 1 tablet by mouth two times a day as needed for cold/allergy symptoms. Please review and advise. Suzanne Almaguer MA documented in this encounter [facility] 05-22-2024 Telephone encounter Note Form received from [facility] placed on signing trajose de jesus Pedersen MA [facility] 05-22-2024 Miscellaneous Notes Form received from [facility] placed on signing trajose de jesus Pedersen MA documented in this encounter [facility] 05-19-2024 Telephone encounter Note Fax received from [facility] program. Only 2 pages received. Faxed back request to re-send fax with all pages. Annie Jacki, RN [facility] 05-19-2024 Miscellaneous Notes Fax received from [facility] Patient [facility]itance program. Only 2 pages received. Faxed back request to re-send fax with all pages. Annie Echeverria RN documented in this encounter [facility] 05-18-2024 Telephone encounter Note Patient electronically requesting refills as follows: Last seen 03/30/24 . Last refill went to different pharmacy, patient would like to now use [facility] [place]. Requested Prescriptions Pending Prescriptions Disp Refills rosuvastatin (CRESTOR) 20 mg tablet 90 tablet 3 Sig: Take 1 tablet by mouth daily at bedtime. lisinopril 2.5 mg tablet 180 tablet 3 Sig: Take 1 tablet by mouth two times a day. Hold if SBP less than 110 ezetimibe (ZETIA) 10 mg tablet 90 tablet 3 Sig: Take 1 tablet by mouth once daily. guaiFENesin (MUCINEX) 600 mg 12 hr tablet 60 tablet 2 Sig: Take 1 tablet by mouth two times a day as needed for cold/allergy symptoms. Please review and advise. Precious Lacy MA [facility] 05-18-2024 Miscellaneous Notes Patient electronically requesting refills as follows: Last seen 03/30/24 . Last refill went to different pharmacy, patient would like to now use [facility] [place]. Requested Prescriptions Pending Prescriptions Disp Refills rosuvastatin (CRESTOR) 20 mg tablet 90 tablet 3 Sig: Take 1 tablet by mouth daily at bedtime. lisinopril 2.5 mg tablet 180 tablet 3 Sig: Take 1 tablet by mouth two times a day. Hold if SBP less than 110 ezetimibe (ZETIA) 10 mg tablet 90 tablet 3 Sig: Take 1 tablet by mouth once daily. guaiFENesin (MUCINEX) 600 mg 12 hr tablet 60 tablet 2 Sig: Take 1 tablet by mouth two times a day as needed for cold/allergy symptoms. Please review and advise. Precious Lacy MA documented in this encounter [facility] 04-29-2024 Telephone encounter Note Faxed, went through successfully. Suzanne Almaguer MA [facility] 04-29-2024 Miscellaneous Notes Faxed, went through successfully. Suzanne Almaguer MA Please fax over list of meds to number that patient provided. Thank you. documented in this encounter [facility] 04-29-2024 Telephone encounter Note Please fax over list of meds to number that patient provided. Thank you. [facility] 04-27-2024 Note [facility] 04-27-2024 History of Presen t illness Narrative PULM FUNCTION: Provider: Tru Simon MD Assisting Tech: Beba Rose RPFT Spirometry: 1 DLCO: 1 documented in this encounter [facility] 04-27-2024 Telephone encounter Note Received [employer] message request from Dr. Tom Simon on 04/24/2024; patient needing copay financial legal assistant for medication OFEV; Called patient today 04/27/2024; Patient was unavailable; Left detail message via voicemail with assistance information for [facility] @ ; replied back to sender. [facility] 04-27-2024 Miscellaneous Notes Received [employer] message request from Dr. Tom Simon on 04/24/2024; patient needing copay financial legal assistant for medication OFEV; Called patient today 04/27/2024; Patient was unavailable; Left detail message via voicemail with assistance information for [facility] @ ; replied back to sender. documented in this encounter [facility] 04-27-2024 Telephone encounter Note pharmacy electronically requesting refills as follows: Last seen 03/30/24 . Last refill gabapentin 03/31/24 with end date 04/25/24 . Requested Prescriptions Pending Prescriptions Disp Refills gabapentin (NEURONTIN) 300 mg capsule 150 capsule 2 Sig: TAKE 2 CAPSULES BY MOUTH EVERY MORNING AND 3 CAPSULES AT BEDTIME FOR 30 DAYS. Strength: 300 mg traZODone (DESYREL) 100 mg tablet 180 tablet 1 Sig: TAKE 2 TABLETS BY MOUTH DAILY AT BEDTIME Please review and advise. Precious Lacy MA [facility] 04-27-2024 Miscellaneous Notes pharmacy electronically requesting refills as follows: Last seen 03/30/24 . Last refill gabapentin 03/31/24 with end date 04/25/24 . Requested Prescriptions Pending Prescriptions Disp Refills gabapentin (NEURONTIN) 300 mg capsule 150 capsule 2 Sig: TAKE 2 CAPSULES BY MOUTH EVERY MORNING AND 3 CAPSULES AT BEDTIME FOR 30 DAYS. Strength: 300 mg traZODone (DESYREL) 100 mg tablet 180 tablet 1 Sig: TAKE 2 TABLETS BY MOUTH DAILY AT BEDTIME Please review and advise. Precious Lacy MA documented in this encounter [facility] 04-22-2024 Tru Owusu MD - 04/22/2024 3:03 PM EST [facility] phone number Start prednisone 40 mg x 1 week, 30 mg x 1 week, 20 mg x 1 week, 10 mg x 1 week, then stop Stay on trelegy Stay on your oxygen Measure blood sugar twice daily while on the prednisone documented in this encounter [facility] 04-22-2024 Note [facility] 04-22-2024 History of Presen t illness Narrative Images from the original note were not included. Respiratory [place] Mars Peterson is a 68 year old male here for evaluation by the [facility] Interstitial Lung Disease Team. Consultation requested by Mitchell Caruso, APR* for an opinion regarding ILD and my final recommendations will be communicated back to the requesting physician by way of shared Medical record or letter via US mail. Referring diagnosis: IPF: Idiopathic pulmonary fibrosis HISTORY OF PRESENT ILLNESS: here for evaluation of ILD Patient found out he had COPD about 18 months ago. He was being watched by a merchandise distributor. He started on spiriva initially but this was eventually increased to trelegy and has always had albuterol as needed. In December 2023 he went to the hospital acutely ill. He had a CT chest done in the hospital showing diffuse GGOs with CPFE background on CT chest. He reports he was treated very well in the hospital, with nebulizer, steroids, IV diuretics, and antibiotics. He was not seen by a merchandise distributor in the hospital owing to lack of merchandise distributor available at that facility. Prior to hospital he was not oxygen dependent, now since then he requires 3L continuous and at rest. Currently not able to walk very far without developing shortness of breath or falling. He is compliant with his trelegy inhaler, but he did miss once in a while. He does make phlegm on a daily basis. He denies any current wheezing. No leg swelling currently. He cannot lay flat or he feels like he gets filled and plugged. He sleeps with head of bed at 30 degrees. No chest pain. He does get some tightness in his chest when he gets ill, which resolves with coughing up phlegm. No pleuritic pain. Does not cough up blood. Takes medicine for reflux. Does not complain of overt aspiration. He does have PND which started even before he was on O2. Pulm Hx CPFE on trelegy Chronic hypox respiratory failure Pneumonia PAH COVID? 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 has feather coat. Previously has had some down coats. No pet birds or birds in home Has a pet dog. 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 Has not built homes since 1991 or so. 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 Too breathless to leave the house, or breathless when dressing or undressing All others per history of present illness or otherwise negative on detailed 14 point review. 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0 ttl pk-yrs) Types: Cigarettes Start date: 05/13/1961 Quit date: 05/13/2001 Years since quittin.9 Smokeless tobacco: Former Types: Chew Alcohol Use: Approximately 6 oz/week [which includes 10 Cans of beer per week] Drug Use: Never FAMILY HISTORY Problem Relation Age of Onset Ovarian cancer Mother other (afib) Mother COPD Mother Asthma Mother Heart Father heart attack other (Chronic oxygen) Father other (bladder cancer) Maternal Aunt Cancer Maternal Aunt Cancer Maternal Uncle Heart Paternal Uncle Leukemia Paternal Uncle Colon Cancer No Family History ALLERGIES Allergen Reactions Animal Dander Other: See Comments Anything with fur Seasonal Allergies Other: See Comments Stuffy nose, headaches CURRENT MEDICATIONS: guaiFENesin (MUCINEX) 600 mg 12 hr tablet Take 1 tablet by mouth two times a day as needed for cold/allergy symptoms. doxycycline hyclate (VIBRAMYCIN) 100 mg capsule Take 1 capsule (100 mg) by mouth two times a day for 10 days. gabapentin (NEURONTIN) 300 mg capsule TAKE 2 CAPSULES BY MOUTH EVERY MORNING AND 3 CAPSULES AT BEDTIME FOR 30 DAYS. Strength: 300 mg traZODone (DESYREL) 100 mg tablet TAKE 2 TABLETS BY MOUTH DAILY AT BEDTIME rosuvastatin (CRESTOR) 20 mg tablet Take 1 tablet by mouth daily at bedtime. pantoprazole DR (PROTONIX) 40 mg tablet Take 1 tablet by mouth once daily. metoprolol succinate ER (TOPROL XL) 25 mg 24 hr tablet Take 1 tablet by mouth every afternoon. lisinopril 2.5 mg tablet Take 1 tablet by mouth two times a day. Hold if SBP less than 110 isosorbide mononitrate ER (IMDUR) 30 mg 24 hr tablet Take 1 tablet by mouth once daily. furosemide (LASIX) 40 mg tablet Take 1 tablet by mouth three times a week. ezetimibe (ZETIA) 10 mg tablet Take 1 tablet by mouth once daily. escitalopram oxalate (LEXAPRO) 20 mg tablet Take 1 tablet by mouth once daily. colestipol (COLESTID) 1 gram tablet Take 1 tablet by mouth two times a day. busPIRone (BUSPAR) 5 mg tablet Take 1 tablet by mouth three times a day as needed. clopidogrel (PLAVIX) 75 mg tablet Take 1 tablet by mouth once daily. OXYGEN, HOME THERAPY, 3 L/min by Nasal Cannula route as directed. ipratropium-albuterol (DUONEB) 0.5 mg-3 mg(2.5 mg base)/3 mL nebu Inhale 3 mL as instructed every 4 hours as needed for wheezing/shortness of breath. fluticasone (FLONASE) 50 mcg/actuation nasal spray spray 1 spray into each nostril every day mtffzikqoux-iozlmxxom-ggknjymo (TRELEGY ELLIPTA) 200-62.5-25 mcg inhalation powder Inhale 1 Puff as instructed once daily. nitroglycerin sublingual (NITROSTAT) 0.4 mg SL tablet Dissolve 1 tablet under the tongue every 5 minutes as needed for chest pain. albuterol sulfate 90 mcg/actuation aebs Inhale 1-2 Puffs as instructed every 4 hours as needed for wheezing/shortness of breath. Lactobacillus acidophilus (PROBIOTIC) 10 billion cell cap Take 1 capsule by mouth once daily. acetaminophen (TYLENOL EXTRA STRENGTH) 500 mg tablet Take 2 tablets by mouth every 8 hours as needed for pain. FOR PAIN. Zinc 50 mg tab Take 50 mg by mouth once daily. aspirin, enteric coated (ASPIRIN, ENTERIC COATED) 81 mg EC tablet Take 81 mg by mouth once daily. multivit-min/folic/vit K/lycop (ONE-A-DAY MEN'S MULTIVITAMIN ORAL) Take by mouth once daily. PHYSICAL EXAM: BP 122/72 Pulse 52 Temp (Src) 97 (Temporal) Ht 6' 0" (1.83m) Wt 271 lb 4.8 oz (123.1kg) SpO2 99% BMI 36.79 kg/(m^2). Physical Exam Vitals and nursing note reviewed. Constitutional: General: He is not in acute distress. Appearance: He is well-developed. He is obese. He is ill-appearing. HENT: Head: Normocephalic and atraumatic. Mouth/Throat: Mouth: Mucous membranes are moist. Pharynx: No oropharyngeal exudate or posterior oropharyngeal erythema. Eyes: General: No scleral icterus. Extraocular Movements: Extraocular movements intact. Conjunctiva/sclera: Conjunctivae normal. Cardiovascular: Rate and Rhythm: Normal rate and regular rhythm. Heart sounds: Normal heart sounds. No murmur heard. No friction rub. No gallop. Pulmonary: Effort: Pulmonary effort is normal. No respiratory distress. Breath sounds: No stridor. Rales present. No wheezing or rhonchi. Chest: Chest wall: No tenderness. Abdominal: General: Bowel sounds are normal. There is no distension. Palpations: Abdomen is soft. Tenderness: There is no abdominal tenderness. Musculoskeletal: General: No tenderness or deformity. Cervical back: Normal range of motion and neck supple. Lymphadenopathy: Cervical: No cervical adenopathy. Skin: General: Skin is warm and dry. Capillary Refill: Capillary refill takes less than 2 seconds. Findings: No erythema. Neurological: Mental Status: He is alert and oriented to person, place, and time. Motor: No abnormal muscle tone. Psychiatric: Behavior: Behavior normal. DATA REVIEWED (independently reviewed by myself) Laboratory Data Laboratory data reviewed in [facility] and Care Everywhere. Pulmonary Function Data PFT available: Yes Could the patient perform DLCO? Yes Six minute walk Six minute walk available: No Radiology Is a CT scan available?: HRCT (1-2 mm) available Echocardiogram Was an echo performed?: Yes Heart Catheterization Was a right heart catheterization performed?: No Pathology none ASSESSMENT Mars Peterson is a 68 year old male with CPFE, former smoker, feather exposure, chronic oxygen dependence, GERD without esophagitis, CAD presenting for evaluation of ILD. 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 Recent exacerbation of ILD likely from viral infection, now O2 chronically since then. Not well enough for bronchoscopy. 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 Chronic respiratory failure with hypoxia ([facility]) J96.11 OXIMETRY - NOCTURNAL SPIROMETRY BASELINE ONLY LUNG DIFFUSION CAPACITY (DLCO) 3. Hypersensitivity pneumonitis (HCC) J67.9 LUNG DIFFUSION CAPACITY (DLCO) 4. Gastroesophageal reflux disease, unspecified whether esophagitis present K21.9 PLAN Treating diagnosis: Undetermined , but suspect either IPF with emphysema or fibrotic HP ILD medications at end of visit: Prednisone Continue trelegy 200 one puff daily Continue albuterol as needed Continue LTOT Continue treatment for GERD with protonix while on steroids Calcium and vitamin D supplementation while on high dose steroids Does not need PJP prophylaxis Nocturnal oximetry ordered Start ofev, given number for [employer], needs CMP every 12 weeks for monitoring Prednisone taper 40 mg, taper by 10 mg every 7 days Needs repeat echo to reevaluate for PH with CT findings, ?role for tyvaso Follow-up 4-6 weeks I spent a total of 64 minutes on the date of the service which included preparing to see the patient, bhet-[id number] patient care, completing clinical documentation, and obtaining and/or reviewing separately obtained history. ILD CHECKLIST Was the patient discussed at a multidisciplinary discussion?: No Is the patient being treated with oxygen therapy?: Yes- continuous Does the patient have pulmonary hypertension: Uncertain Is the patient being referred for transplantation?: No. Not a candidate owing to frailty and PAD with BKA of RLE Tru Simon MD CC: Mitchell Caruso APRN.TAG MACHINE OPERATOR documented in this encounter [facility] 04-20-2024 Telephone encounter Note Patient requesting refills: Last office visit 03/30/2024. Last refill 03/23/2024. Requested Prescriptions Pending Prescriptions Disp Refills guaiFENesin (MUCINEX) 600 mg 12 hr tablet 60 tablet 0 Sig: Take 1 tablet by mouth two times a day as needed for cold/allergy symptoms. Please review and advise. Suzanne Almaguer MA [facility] 04-20-2024 Miscellaneous Notes Patient requesting refills: Last office visit 03/30/2024. Last refill 03/23/2024. Requested Prescriptions Pending Prescriptions Disp Refills guaiFENesin (MUCINEX) 600 mg 12 hr tablet 60 tablet 0 Sig: Take 1 tablet by mouth two times a day as needed for cold/allergy symptoms. Please review and advise. Suzanne Almaguer MA documented in this encounter [facility] 04-20-2024 Telephone encounter Note Duplicate encounter. Katelynn Huynh LPN [facility] 04-20-2024 Miscellaneous Notes Duplicate encounter. Katelynn Huynh LPN documented in this encounter [facility] 04-16-2024 Note HNO ID: [id number] Author: QI ZAZUETA RN Service: ? Author Type: Registered Nurse Type: Progress Notes Filed: 04/16/2024 15:38 Note Text: AG TRANSITIONAL CARE MANAGEMENT (TCM) FOLLOW-UP NOTE Provider Action/FYI: Patient identified by name and date of : YES Spoke to: spouse Diagnosis: COPD Summary: Spoke with , she reports that patient is about the same. Pollo has an appointment with pulmonary 04/22 regarding ILD. Patient medication copay is $2,048, patient and plan to discuss at appointment. Patient remains active with home care. Reviewed COPD zones and encouraged to report any changes in symptoms. verbalized understanding. Health leads screening tool questions performed? N/A Primary Care first education/Where to go for Care Concerns: Medication cost Inspector Aide plan for next outreach: No further follow-up needed at this time. Signature: Qi Zazueta RN April 16, 2024 [facility] 04-16-2024 History of Presen t illness Narrative AG TRANSITIONAL CARE MANAGEMENT (TCM) FOLLOW-UP NOTE Provider Action/FYI: Patient identified by name and date of : YES Spoke to: spouse Diagnosis: COPD Summary: Spoke with , she reports that patient is about the same. Bentleykeren has an appointment with pulmonary 04/22 regarding ILD. Patient medication copay is $2,048, patient and plan to discuss at appointment. Patient remains active with home care. Reviewed COPD zones and encouraged to report any changes in symptoms. verbalized understanding. Health leads screening tool questions performed? N/A Primary Care first education/Where to go for Care Concerns: Medication cost Inspector Aide plan for next outreach: No further follow-up needed at this time. Signature: Qi Zazueta RN April 16, 2024 documented in this encounter [facility] 04-16-2024 Telephone encounter Note Form to be signed received from Chung, placed on signing folder Priya Pedersen MA [facility] 04-16-2024 Miscellaneous Notes Form to be signed received from Chung, placed on signing folder Priya Pedersen MA documented in this encounter [facility] 04-16-2024 Note Patient Outreach (AG ACM) MARS PETERSON ([id number]) 1955 M DEF Date Time Provider Department 04/16/24 QI ZAZUETA [facility] During your visit today, we recorded the following information about you: Qi Zazueta RN 04/16/2024 3:38 PM Signed AG TRANSITIONAL CARE MANAGEMENT (TCM) FOLLOW-UP NOTE Provider Action/FYI: Patient identified by name and date of : YES Spoke to: spouse Diagnosis: COPD Summary: Spoke with , she reports that patient is about the same. Pollo has an appointment with pulmonary 04/22 regarding ILD. Patient medication copay is $2,048, patient and plan to discuss at appointment. Patient remains active with home care. Reviewed COPD zones and encouraged to report any changes in symptoms. verbalized understanding. Health leads screening tool questions performed? N/A Primary Care first education/Where to go for Care Concerns: Medication cost Inspector Aide plan for next outreach: No further follow-up needed at this time. Signature: Qi Zazueta RN April 16, 2024 Allergies As of Date: 04/16/2024 Noted Allergy Reaction ANIMAL DANDER 08/21/2022 14 - Other: See Comments Comments: Anything with fur SEASONAL ALLERGIES 08/21/2022 14 - Other: See Comments Comments: Stuffy nose, headaches Date Reviewed: 03/30/2024 Reviewed by: Alma Gill APRN.CNP - Fully Assessed Reason for Visit: Transition Of Care [4074] Cmt: TCM follow up call Prescriptions as of 04/16/2024 - gabapentin (NEURONTIN) 300 mg capsule TAKE 2 CAPSULES BY MOUTH EVERY MORNING AND 3 CAPSULES AT BEDTIME FOR 30 DAYS. Strength: 300 mg - traZODone (DESYREL) 100 mg tablet TAKE 2 TABLETS BY MOUTH DAILY AT BEDTIME - thiamine (VITAMIN B1) 100 mg tablet Take 1 tablet by mouth once daily. - rosuvastatin (CRESTOR) 20 mg tablet Take 1 tablet by mouth daily at bedtime. - pantoprazole DR (PROTONIX) 40 mg tablet Take 1 tablet by mouth once daily. - metoprolol succinate ER (TOPROL XL) 25 mg 24 hr tablet Take 1 tablet by mouth every afternoon. - lisinopril 2.5 mg tablet Take 1 tablet by mouth two times a day. Hold if SBP less than 110 - isosorbide mononitrate ER (IMDUR) 30 mg 24 hr tablet Take 1 tablet by mouth once daily. - furosemide (LASIX) 40 mg tablet Take 1 tablet by mouth three times a week. - ezetimibe (ZETIA) 10 mg tablet Take 1 tablet by mouth once daily. - escitalopram oxalate (LEXAPRO) 20 mg tablet Take 1 tablet by mouth once daily. - colestipol (COLESTID) 1 gram tablet Take 1 tablet by mouth two times a day. - busPIRone (BUSPAR) 5 mg tablet Take 1 tablet by mouth three times a day as needed. - clopidogrel (PLAVIX) 75 mg tablet Take 1 tablet by mouth once daily. - guaiFENesin (MUCINEX) 600 mg 12 hr tablet Take 1 tablet by mouth two times a day as needed for cold/allergy symptoms. - OXYGEN, HOME THERAPY, 3 L/min by Nasal Cannula route as directed. - ipratropium-albuterol (DUONEB) 0.5 mg-3 mg(2.5 mg base)/3 mL nebu Inhale 3 mL as instructed every 4 hours as needed for wheezing/shortness of breath. - fluticasone (FLONASE) 50 mcg/actuation nasal spray spray 1 spray into each nostril every day - ikkitzcvenz-qvanszufr-eomlvfyf (TRELEGY ELLIPTA) 200-62.5-25 mcg inhalation powder Inhale 1 Puff as instructed once daily. - nitroglycerin sublingual (NITROSTAT) 0.4 mg SL tablet Dissolve 1 tablet under the tongue every 5 minutes as needed for chest pain. - albuterol sulfate 90 mcg/actuation aebs Inhale 1-2 Puffs as instructed every 4 hours as needed for wheezing/shortness of breath. - sodium chloride 0.65 % nasal spray Use 1 Jaffrey in the nose as needed. - Lactobacillus acidophilus (PROBIOTIC) 10 billion cell cap Take 1 capsule by mouth once daily. - acetaminophen (TYLENOL EXTRA STRENGTH) 500 mg tablet Take 2 tablets by mouth every 8 hours as needed for pain. FOR PAIN. - Zinc 50 mg tab Take 50 mg by mouth once daily. - aspirin, enteric coated (ASPIRIN, ENTERIC COATED) 81 mg EC tablet Take 81 mg by mouth once daily. - multivit-min/folic/vit K/lycop (ONE-A-DAY MEN'S MULTIVITAMIN ORAL) Take by mouth once daily. 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 [facility] 04-14-2024 Telephone encounter Note Script was sent 03/31/24 for a years supply. Precious Lacy MA [facility] 04-14-2024 Miscellaneous Notes Script was sent 03/31/24 for a years supply. Precious Lacy MA documented in this encounter [facility] 04-13-2024 Telephone encounter Note Verbal orders given. Suzanne Almaguer MA [facility] 04-13-2024 Miscellaneous Notes Verbal orders given. Suzanne Almaguer MA Ok to extend PT sessions. [facility] physical therapist is requesting to extend PT. For once a week for 4 weeks. Please advise. [place] [phone]. Thank you. Suzanne Almaguer MA documented in this encounter [facility] 04-13-2024 Telephone encounter Note Ok to extend PT sessions. [facility] 04-13-2024 Telephone encounter Note [facility] physical therapist is requesting to extend PT. For once a week for 4 weeks. Please advise. [place] [phone]. Thank you. Suzanne Almaguer MA [facility] 04-02-2024 Telephone encounter Note OFEV Prior Auth initiated via Covermymeds. Approved today by [employer] 2016 [place] Case: [id number], Status: Approved, Coverage Starts on: 01/02/2024 12:00:00 AM, Coverage Ends on: 04/02/2025 12:00:00 AM. Katelynn Huynh LPN [facility] 04-02-2024 Miscellaneous Notes OFEV Prior Auth initiated via Covermymeds. Approved today by [employer] 2016 [place] Case: [id number], Status: Approved, Coverage Starts on: 01/02/2024 12:00:00 AM, Coverage Ends on: 04/02/2025 12:00:00 AM. Katelynn Huynh LPN documented in this encounter [facility] 04-01-2024 History of Presen t illness Narrative AG TRANSITIONAL CARE MANAGEMENT (TCM) FOLLOW-UP NOTE Provider Action/FYI: Patient identified by name and date of : YES Spoke to: N/A Diagnosis: COPD Summary: TCM follow up call, no answer. Detailed message left. Health leads screening tool questions performed? N/A N/A Concerns: Pharmacy change Inspector Aide plan for next outreach: Will follow-up in 2 weeks Signature: Qi Zazueta RN April 01, 2024 documented in this encounter [facility] 04-01-2024 Note HNO ID: [id number] Author: QI ZAZUETA RN Service: ? Author Type: Registered Nurse Type: Progress Notes Filed: 04/01/2024 15:33 Note Text: AG TRANSITIONAL CARE MANAGEMENT (TCM) FOLLOW-UP NOTE Provider Action/FYI: Patient identified by name and date of : YES Spoke to: N/A Diagnosis: COPD Summary: TCM follow up call, no answer. Detailed message left. Health leads screening tool questions performed? N/A N/A Concerns: Pharmacy change Inspector Aide plan for next outreach: Will follow-up in 2 weeks Signature: Qi Zazueta RN April 01, 2024 [facility] 04-01-2024 Note Patient Outreach (AG ACM) MARS PETERSON ([id number]) 1955 M DEF Date Time Provider Department 04/01/24 QI ZAZUETA [facility] During your visit today, we recorded the following information about you: Qi Zazueta RN 04/01/2024 3:33 PM Signed AG TRANSITIONAL CARE MANAGEMENT (TCM) FOLLOW-UP NOTE Provider Action/FYI: Patient identified by name and date of : YES Spoke to: N/A Diagnosis: COPD Summary: TCM follow up call, no answer. Detailed message left. Health leads screening tool questions performed? N/A N/A Concerns: Pharmacy change Inspector Aide plan for next outreach: Will follow-up in 2 weeks Signature: Qi Zazueta RN April 01, 2024 Allergies As of Date: 04/01/2024 Noted Allergy Reaction ANIMAL DANDER 08/21/2022 14 - Other: See Comments Comments: Anything with fur SEASONAL ALLERGIES 08/21/2022 14 - Other: See Comments Comments: Stuffy nose, headaches Date Reviewed: 03/30/2024 Reviewed by: Alma Gill APRN.CNP - Fully Assessed Reason for Visit: Transition Of Care [4074] Cmt: TCM follow up call Prescriptions as of 04/01/2024 - gabapentin (NEURONTIN) 300 mg capsule TAKE 2 CAPSULES BY MOUTH EVERY MORNING AND 3 CAPSULES AT BEDTIME FOR 30 DAYS. Strength: 300 mg - traZODone (DESYREL) 100 mg tablet TAKE 2 TABLETS BY MOUTH DAILY AT BEDTIME - thiamine (VITAMIN B1) 100 mg tablet Take 1 tablet by mouth once daily. - rosuvastatin (CRESTOR) 20 mg tablet Take 1 tablet by mouth daily at bedtime. - pantoprazole DR (PROTONIX) 40 mg tablet Take 1 tablet by mouth once daily. - metoprolol succinate ER (TOPROL XL) 25 mg 24 hr tablet Take 1 tablet by mouth every afternoon. - lisinopril 2.5 mg tablet Take 1 tablet by mouth two times a day. Hold if SBP less than 110 - isosorbide mononitrate ER (IMDUR) 30 mg 24 hr tablet Take 1 tablet by mouth once daily. - furosemide (LASIX) 40 mg tablet Take 1 tablet by mouth three times a week. - ezetimibe (ZETIA) 10 mg tablet Take 1 tablet by mouth once daily. - escitalopram oxalate (LEXAPRO) 20 mg tablet Take 1 tablet by mouth once daily. - colestipol (COLESTID) 1 gram tablet Take 1 tablet by mouth two times a day. - busPIRone (BUSPAR) 5 mg tablet Take 1 tablet by mouth three times a day as needed. - clopidogrel (PLAVIX) 75 mg tablet Take 1 tablet by mouth once daily. - guaiFENesin (MUCINEX) 600 mg 12 hr tablet Take 1 tablet by mouth two times a day as needed for cold/allergy symptoms. - OXYGEN, HOME THERAPY, 3 L/min by Nasal Cannula route as directed. - ipratropium-albuterol (DUONEB) 0.5 mg-3 mg(2.5 mg base)/3 mL nebu Inhale 3 mL as instructed every 4 hours as needed for wheezing/shortness of breath. - fluticasone (FLONASE) 50 mcg/actuation nasal spray spray 1 spray into each nostril every day - jmxxujnjkgw-uyuuobmgy-vcdbxwac (TRELEGY ELLIPTA) 200-62.5-25 mcg inhalation powder Inhale 1 Puff as instructed once daily. - nitroglycerin sublingual (NITROSTAT) 0.4 mg SL tablet Dissolve 1 tablet under the tongue every 5 minutes as needed for chest pain. - albuterol sulfate 90 mcg/actuation aebs Inhale 1-2 Puffs as instructed every 4 hours as needed for wheezing/shortness of breath. - sodium chloride 0.65 % nasal spray Use 1 Jaffrey in the nose as needed. - Lactobacillus acidophilus (PROBIOTIC) 10 billion cell cap Take 1 capsule by mouth once daily. - acetaminophen (TYLENOL EXTRA STRENGTH) 500 mg tablet Take 2 tablets by mouth every 8 hours as needed for pain. FOR PAIN. - Zinc 50 mg tab Take 50 mg by mouth once daily. - aspirin, enteric coated (ASPIRIN, ENTERIC COATED) 81 mg EC tablet Take 81 mg by mouth once daily. - multivit-min/folic/vit K/lycop (ONE-A-DAY MEN'S MULTIVITAMIN ORAL) Take by mouth once daily. Problem List As Of Date 04/01/2024 Noted Resolved Essential hypertension [I10] 05/24/2020 Peripheral vascular disease (HCC) [I73.9] 05/24/2020 Chronic back pain [M54.9, G89.29] 05/24/2020 Obesity, Class II, BMI 35-39.9 [E66.812] 05/24/2020 Status post below knee amputation of right lowe*10/22/2020 Chronic diastolic congestive heart failure (HCC*11/23/2021 Coronary artery disease of ione artery of kell*11/23/2021 CVA (cerebral vascular accident) ([facility]) [I63.9] 11/23/2021 11/20/2022 Neuropathy [G62.9] 11/23/2021 Osteomyelitis of foot ([facility]) [M86.9] 11/23/2021 09/18/2023 Umbilical hernia [K42.9] 11/23/2021 Pressure injury of right buttock, stage 2 (HCC)*02/01/2022 09/18/2023 Pressure injury of left buttock, stage 2 (HCC) *02/01/2022 09/18/2023 Chest pain [R07.9] 02/01/2022 Essential tremor [G25.0] 02/01/2022 Anxiety and depression [F41.9, F32.A] 02/01/2022 SOB (shortness of breath) [R06.02] 02/15/2022 Impaired fasting glucose [R73.01] 06/04/2022 Mixed hyperlipidemia [E78.2] 06/04/2022 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1] 06/04/2022 Hyponatremia [E87.1] 06/04/2022 Post PTCA [Z98.61] 0 (more content not included)... [facility] 03-31-2024 Telephone encounter Note patient electronically requesting refills as follows: Last seen 03/30/24 . Last refill 02/25/24 . Requested Prescriptions Pending Prescriptions Disp Refills gabapentin (NEURONTIN) 300 mg capsule 150 capsule 2 Sig: TAKE 2 CAPSULES BY MOUTH EVERY MORNING AND 3 CAPSULES AT BEDTIME FOR 30 DAYS. Strength: 300 mg Please review and advise. Precious Lacy MA [facility] 03-31-2024 Miscellaneous Notes patient electronically requesting refills as follows: Last seen 03/30/24 . Last refill 02/25/24 . Requested Prescriptions Pending Prescriptions Disp Refills gabapentin (NEURONTIN) 300 mg capsule 150 capsule 2 Sig: TAKE 2 CAPSULES BY MOUTH EVERY MORNING AND 3 CAPSULES AT BEDTIME FOR 30 DAYS. Strength: 300 mg Please review and advise. Precious Lacy MA documented in this encounter [facility] 03-30-2024 Note HNO ID: [id number] Author: ALMA GILL APRN.TAG MACHINE OPERATOR Service: ? Author Type: Nurse Practitioner Type: Progress Notes Filed: 04/06/2024 10:16 Note Text: CHIEF COMPLAINT: Mars Peterson is a 68 year old male who presents for 4 week follow up. I reviewed past medical, surgical, social, and family histories today and updated chart. Allergies, chronic medications, and supplements were also reviewed. His is with him today. He has seen pulmonary medicine since his last OV and an echo and nocturnal oximetry was ordered since he can't do it with ambulation. Pulmonary visit note: HPI: Mars Peterson is a 68 year old male former 80 pack year smoker, quitting 2001 with PMH significant for obesity, CAD s/p CABG, CHF, HTN, PAD, s/p right BKA, neuropathy, asthma with mild COPD, ILD and lung nodule. Current maintenance therapy with Trelegy and as needed Albuterol. Duoneb TID. He presents today for testing follow-up. His TOMMY was 03/13/[address] imaging revealed significant progression of ILD, consistent with IPF. Subsequent autoimmune workup negative. Econsult placed which recommends ILD referral, echo and LFT labs. Reviewed further recommendations. Patient agreeable to proceeding with anti fibrotic therapy. Today, patients reports she hears him coughing more at night. Patient unaware and feels symptoms are at baseline. Cough continues to be productive with thick, white sputum. All other symptoms unchanged. Most notably, continues to have wheezing and exertional dyspnea with minimal exertion. Working with PT d/t ongoing balance/mobility concerns. DME: Greg Currently wearing 2-3L at rest and 4L with exertion. OV 03/02/2024: Mars Peterson is a 68 year old male who presents for Hospital F/U. I reviewed past medical, surgical, social, and family histories today and updated chart. Allergies, chronic medications, and supplements were also reviewed. Oxygen at home is at 3 L continuously at home with concentrator SpO2 was 78% when he arrived into the office today but improved once his portable was placed on continuous Following with pulmonary medicine Has CT chest scheduled on 03/09 Pulmonary testing on 03/13 Seeing pulmonary right after testing Cutting back to 2-3 beers a day Drinking more water Only having pop a few times a week His home RN had called in a coupel weeks ago stating John was feeling more anxious. He was on Hydroxyzine at the time but this was stopped and Buspar was started. He was then started on Lexapro while in the hospital. Per his he has been taking both the Buspar and Hydroxyzine. He only took the Lexapro for 30 days because that is what was sent in after discharge and they did not call in for a refill. Needs BMP rechecked for low sodium. He can't tolerate sodium tablets (upset his stomach per his ). He has has seen nephrology for his kidneys and sodium levels before. He is currently on Lasix 40 mg three times a week. He did not take his dose today because of today's appointment. HOSPITAL COURSE: Mars Peterson is a 68 year old male with PMH of CAD s/p CABG, CHF, HTN, COPD, GERD, ILD, PAD, osteomyelitis s/p R BKA, neuropathy, and pulmonary nodule who presented to [facility] with complaints of shortness of breath that has been ongoing and progressive over the last week with associated generalized weakness on 01/11/2024. He reports he was unable to get up prior to coming to the ED and once he did, he was only able to ambulate very few steps before becoming extremely SOB. He also reported low grade fevers at home. He reports taking lasix three times a week at home. Denies weight gain, leg swelling, ABD bloating, chest pain. In the ED: labs were significant for Na 124; d dimer elevated; BNP 3295; anion gap 16, CO2 20, chloride 88. High-sensitivity troponins 28 but down trended to 22. Chest x-ray showed no acute abnormality but moderate degree of chronic interstitial fibrotic changes. CT of the chest was negative for pulmonary embolism but showed interval development of bilateral groundglass infiltrates most pronounced in the upper lobes felt to represent a superimposed infectious/inflammatory process. Reactive mediastinal and hilar lymphadenopathy present. Patient was started on IV antibiotics, received a dose of furosemide and Solu-Medrol. Treated with breathing treatments and admitted under the hospitalist service for further workup and management of acute respiratory failure with hypoxia as pulse ox was noted at 70% upon arriving to the ED. - patient received IV lasix x3 doses and had large bump in creatinine. Lasix was held for a day with improvement in Cr. Can resume Lasix three times a week per home regimen. - Patient received IV steroids as patient presented more as COPD exacerbation on exam. He was transitioned to PO steroids to complete course. - patient completed 3d Z-pack and 7d Keflex. Sputum cx noted rare stap (more content not included)... [facility] 03-30-2024 History of Presen t illness Narrative CHIEF COMPLAINT: Mars Peterson is a 68 year old male who presents for 4 week follow up. I reviewed past medical, surgical, social, and family histories today and updated chart. Allergies, chronic medications, and supplements were also reviewed. His is with him today. He has seen pulmonary medicine since his last OV and an echo and nocturnal oximetry was ordered since he can't do it with ambulation. Pulmonary visit note: HPI: Mars Peterson is a 68 year old male former 80 pack year smoker, quitting 2001 with PMH significant for obesity, CAD s/p CABG, CHF, HTN, PAD, s/p right BKA, neuropathy, asthma with mild COPD, ILD and lung nodule. Current maintenance therapy with Trelegy and as needed Albuterol. Duoneb TID. He presents today for testing follow-up. His TOMMY was 03/13/[address] imaging revealed significant progression of ILD, consistent with IPF. Subsequent autoimmune workup negative. Econsult placed which recommends ILD referral, echo and LFT labs. Reviewed further recommendations. Patient agreeable to proceeding with anti fibrotic therapy. Today, patients reports she hears him coughing more at night. Patient unaware and feels symptoms are at baseline. Cough continues to be productive with thick, white sputum. All other symptoms unchanged. Most notably, continues to have wheezing and exertional dyspnea with minimal exertion. Working with PT d/t ongoing balance/mobility concerns. DME: Greg Currently wearing 2-3L at rest and 4L with exertion. OV 03/02/2024: Mars Peterson is a 68 year old male who presents for Hospital F/U. I reviewed past medical, surgical, social, and family histories today and updated chart. Allergies, chronic medications, and supplements were also reviewed. Oxygen at home is at 3 L continuously at home with concentrator SpO2 was 78% when he arrived into the office today but improved once his portable was placed on continuous Following with pulmonary medicine Has CT chest scheduled on 03/09 Pulmonary testing on 03/13 Seeing pulmonary right after testing Cutting back to 2-3 beers a day Drinking more water Only having pop a few times a week His home RN had called in a coupel weeks ago stating John was feeling more anxious. He was on Hydroxyzine at the time but this was stopped and Buspar was started. He was then started on Lexapro while in the hospital. Per his he has been taking both the Buspar and Hydroxyzine. He only took the Lexapro for 30 days because that is what was sent in after discharge and they did not call in for a refill. Needs BMP rechecked for low sodium. He can't tolerate sodium tablets (upset his stomach per his ). He has has seen nephrology for his kidneys and sodium levels before. He is currently on Lasix 40 mg three times a week. He did not take his dose today because of today's appointment. HOSPITAL COURSE: Mars Peterson is a 68 year old male with PMH of CAD s/p CABG, CHF, HTN, COPD, GERD, ILD, PAD, osteomyelitis s/p R BKA, neuropathy, and pulmonary nodule who presented to [facility] with complaints of shortness of breath that has been ongoing and progressive over the last week with associated generalized weakness on 01/11/2024. He reports he was unable to get up prior to coming to the ED and once he did, he was only able to ambulate very few steps before becoming extremely SOB. He also reported low grade fevers at home. He reports taking lasix three times a week at home. Denies weight gain, leg swelling, ABD bloating, chest pain. In the ED: labs were significant for Na 124; d dimer elevated; BNP 3295; anion gap 16, CO2 20, chloride 88. High-sensitivity troponins 28 but down trended to 22. Chest x-ray showed no acute abnormality but moderate degree of chronic interstitial fibrotic changes. CT of the chest was negative for pulmonary embolism but showed interval development of bilateral groundglass infiltrates most pronounced in the upper lobes felt to represent a superimposed infectious/inflammatory process. Reactive mediastinal and hilar lymphadenopathy present. Patient was started on IV antibiotics, received a dose of furosemide and Solu-Medrol. Treated with breathing treatments and admitted under the hospitalist service for further workup and management of acute respiratory failure with hypoxia as pulse ox was noted at 70% upon arriving to the ED. - patient received IV lasix x3 doses and had large bump in creatinine. Lasix was held for a day with improvement in Cr. Can resume Lasix three times a week per home regimen. - Patient received IV steroids as patient presented more as COPD exacerbation on exam. He was transitioned to PO steroids to complete course. - patient completed 3d Z-pack and 7d Keflex. Sputum cx noted rare staph. - Na was noted to be as low as 122, but improved by DC to 126. - patient refused fluid restriction and unable to tolerate Salt tabs in the past. - numerous attempts were made to wean off oxygen without success. He had desat study for which he qualified for oxygen. Oxygen was set up for in-home. - PRN nebulizer were ordered at [place] to be used every 4 hours as needed for SOB/wheezing. - Patient instructed to follow up with pulm in 1-2 weeks. - BP was noted to be lower end of normal while at [place]. Parameters placed on Lisinopril to hold if SBP less than 110. Take BP twice a day and record results to show PCP at f/u appointment. - Thiamine was started for chronic ETOH use. - PT/OT recommended SNF, but patient declined. He will have C services at home. - follow up with PCP in 1-2 weeks to discuss recent hospitalization. - return to the ED if symptoms return. 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 DJD (degenerative joint disease) Essential hypertension Heart attack ([facility]) 1999 States his previous animal trainer told him he had a heart attack based on EKG (in [place]) Neuropathy Osteomyelitis of foot ([facility]) Peripheral vascular disease ([facility]) S/P CABG (coronary artery bypass graft) Umbilical hernia PAST SURGICAL HISTORY Procedure Laterality Date BACK SURGERY HX 2017 CABG (1) VEIN GRAFT & ARTERIAL GRAFT 2001 CABG x4 COLONOSCOPY 2007 FINGER AMPUTATION (SPECIFY DIGIT) HX HIP SURGERY HX 1999 1999, 2019 Replacement Right and left LEG AMPUTATION HX Right 2018 PAST SURGICAL HISTORY OF coccyx REMV CATARACT EXTRACAP,INSERT LENS Bilateral Social History Tobacco Use Smoking status: Former Current packs/day: 0.00 Average packs/day: 2.0 packs/day for 40.0 years (80.0 ttl pk-yrs) Types: Cigarettes Start date: 05/13/1961 Quit date: 05/13/2001 Years since quittin.9 Smokeless tobacco: Former Types: Chew Vaping Use Vaping status: Never Used Substance Use Topics Alcohol use: Yes Alcohol/week: 10.0 standard drinks of alcohol Types: 10 Cans of beer per week Drug use: Never ALLERGIES Allergen Reactions Animal Dander Other: See Comments Anything with fur Seasonal Allergies Other: See Comments Stuffy nose, headaches Family History Problem Relation Age of Onset Ovarian cancer Mother other (afib) Mother COPD Mother Heart Father heart attack other (Chronic oxygen) Father other (bladder cancer) Maternal Aunt Cancer Maternal Aunt Cancer Maternal Uncle Heart Paternal Uncle Leukemia Paternal Uncle Colon Cancer No Family History Current Outpatient Medications Medication Sig Dispense Refill guaiFENesin (MUCINEX) 600 mg 12 hr tablet Take 1 tablet by mouth two times a day as needed for cold/allergy symptoms. 60 tablet 0 OXYGEN, HOME THERAPY, 3 L/min by Nasal Cannula route as directed. ipratropium-albuterol (DUONEB) 0.5 mg-3 mg(2.5 mg base)/3 mL nebu Inhale 3 mL as instructed every 4 hours as needed for wheezing/shortness of breath. 360 mL 1 fluticasone (FLONASE) 50 mcg/actuation nasal spray spray 1 spray into each nostril every day 48 mL 1 itwgvcwfdbc-inqurilob-nfmqghlh (TRELEGY ELLIPTA) 200-62.5-25 mcg inhalation powder Inhale 1 Puff as instructed once daily. 1 Each 11 nitroglycerin sublingual (NITROSTAT) 0.4 mg SL tablet Dissolve 1 tablet under the tongue every 5 minutes as needed for chest pain. 25 tablet 0 albuterol sulfate 90 mcg/actuation aebs Inhale 1-2 Puffs as instructed every 4 hours as needed for wheezing/shortness of breath. 1 Each 2 sodium chloride 0.65 % nasal spray Use 1 Jaffrey in the nose as needed. 50 mL 2 Lactobacillus acidophilus (PROBIOTIC) 10 billion cell cap Take 1 capsule by mouth once daily. acetaminophen (TYLENOL EXTRA STRENGTH) 500 mg tablet Take 2 tablets by mouth every 8 hours as needed for pain. FOR PAIN. 90 tablet 0 Zinc 50 mg tab Take 50 mg by mouth once daily. aspirin, enteric coated (ASPIRIN, ENTERIC COATED) 81 mg EC tablet Take 81 mg by mouth once daily. multivit-min/folic/vit K/lycop (ONE-A-DAY MEN'S MULTIVITAMIN ORAL) Take by mouth once daily. gabapentin (NEURONTIN) 300 mg capsule TAKE 2 CAPSULES BY MOUTH EVERY MORNING AND 3 CAPSULES AT BEDTIME FOR 30 DAYS. Strength: 300 mg 150 capsule 2 traZODone (DESYREL) 100 mg tablet TAKE 2 TABLETS BY MOUTH DAILY AT BEDTIME 180 tablet 1 thiamine (VITAMIN B1) 100 mg tablet Take 1 tablet by mouth once daily. 30 tablet 0 rosuvastatin (CRESTOR) 20 mg tablet Take 1 tablet by mouth daily at bedtime. [address] (PROTONIX) 40 mg tablet Take 1 tablet by mouth once daily. 90 tablet 1 metoprolol succinate ER (TOPROL XL) 25 mg 24 hr tablet Take 1 tablet by mouth every afternoon. 90 tablet 1 lisinopril 2.5 mg tablet Take 1 tablet by mouth two times a day. Hold if SBP less than 110 180 tablet 3 isosorbide mononitrate ER (IMDUR) 30 mg 24 hr tablet Take 1 tablet by mouth once daily. 90 tablet 1 furosemide (LASIX) 40 mg tablet Take 1 tablet by mouth three times a week. 36 tablet 1 ezetimibe (ZETIA) 10 mg tablet Take 1 tablet by mouth once daily. 90 tablet 3 escitalopram oxalate (LEXAPRO) 20 mg tablet Take 1 tablet by mouth once daily. 90 tablet 1 colestipol (COLESTID) 1 gram tablet Take 1 tablet by mouth two times a day. 180 tablet 1 busPIRone (BUSPAR) 5 mg tablet Take 1 tablet by mouth three times a day as needed. 270 tablet 1 clopidogrel (PLAVIX) 75 mg tablet Take 1 tablet by mouth once daily. 90 tablet 1 No current facility-administered medications for this visit. Review of Systems Constitutional: Positive for fatigue. Negative for appetite change, chills, diaphoresis, fever and unexpected weight change. HENT: Negative for congestion, ear pain, postnasal drip, rhinorrhea, sinus pressure, sinus pain, sneezing, sore throat and trouble swallowing. Eyes: Negative for visual disturbance. Respiratory: Positive for cough, chest tightness and shortness of breath (with exertion). Negative for wheezing. Cardiovascular: Negative for chest pain, palpitations and leg swelling. Gastrointestinal: Negative for abdominal pain, constipation, diarrhea, nausea and vomiting. Endocrine: Negative. Genitourinary: Negative. Musculoskeletal: Positive for gait problem ((poor balance, RLE amputation).). Negative for back pain and neck pain. Skin: Negative. Neurological: Negative for dizziness, seizures, syncope, light-headedness and headaches. Hematological: Negative. Psychiatric/Behavioral: Negative. BP 118/54 Pulse 59 Temp 97.9 Resp 18 Ht 6' 0" (1.83m) SpO2 98[3 l]% Physical Exam Vitals and nursing note reviewed. Constitutional: Appearance: He is obese. Comments: Sitting in wheelchair on portable oxygen HENT: Nose: Nose normal. Mouth/Throat: Mouth: Mucous membranes are moist. Eyes: Pupils: Pupils are equal, round, and reactive to light. Cardiovascular: Rate and Rhythm: Normal rate and regular rhythm. Heart sounds: Normal heart sounds, S1 normal and S2 normal. Comments: Right BKA Pulmonary: Effort: Pulmonary effort is normal. No tachypnea, accessory muscle usage or respiratory distress. Breath sounds: No stridor. Examination of the right-lower field reveals rhonchi. Examination of the left-lower field reveals rhonchi. Rhonchi present. No wheezing. Abdominal: General: Bowel sounds are normal. There is no distension. Palpations: Abdomen is soft. Tenderness: There is no abdominal tenderness. Musculoskeletal: Left lower leg: No edema. 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 Skin: General: Skin is warm and dry. Neurological: Mental Status: He is alert and oriented to person, place, and time. Psychiatric: Mood and Affect: Mood normal. Behavior: Behavior normal. Cognition and Memory: Cognition normal. Latest Ref Rng 01/11/2024 01/12/2024 01/14/2024 01/15/2024 03/09/2024 Protein, Total 6.3 - 8.0 g/dL 6.8 6.8 Albumin 3.9 - 4.9 g/dL 3.4 (L) 3.5 (L) Calcium 8.5 - 10.2 mg/dL 9.0 8.8 9.4 9.1 9.3 Calcium 9.1 Bilirubin, Total 0.2 - 1.3 mg/dL 0.4 0.4 Alkaline Phosphatase 38 - 113 U/L 67 63 AST 14 - 40 U/L 23 19 ALT 10 - 54 U/L 21 21 Glucose 74 - 99 mg/dL 126 (H) 192 (H) 218 (H) 185 (H) 108 (H) Glucose 209 (H) BUN 9 - 24 mg/dL 10 16 28 (H) 26 (H) 7 (L) BUN 31 (H) Creatinine 0.73 - 1.22 mg/dL 1.11 1.25 (H) 1.32 (H) 1.11 0.93 Creatinine 1.41 (H) Sodium 136 - 144 mmol/L 124 (L) 125 (L) 126 (L) 126 (L) 129 (L) Sodium 122 (L) Potassium 3.7 - 5.1 mmol/L 4.2 4.0 4.5 4.8 4.6 Potassium 4.4 Chloride 98 - 107 mmol/L 88 (L) 90 (L) 89 (L) 90 (L) 91 (L) Chloride 87 (L) CO2 22 - 30 mmol/L 20 (L) 22 22 25 29 CO2 22 Anion Gap 8 - 15 mmol/L 16 (H) 13 15 11 9 Anion Gap 13 eGFR >=60 mL/min/1.73m 71 62 58 (L) 71 88 eGFR 54 (L) Legend: (H) High (L) Low ASSESSMENT/PLAN: 1. ILD (interstitial lung disease) (HCC) - ICD9: 515, ICD10: J84.9 (primary diagnosis) - Following with pulmonary - Currently on home supplemental oxygen - Trelegy daily, Ramsesonebs prn 2. Dependence on supplemental oxygen - ICD9: V46.2, ICD10: Z99.81 3. Chronic diastolic congestive heart failure (HCC) - ICD9: 428.32, 428.0, ICD10: I50.32 - Following with cardiology - Currently on Lasix 40 mg three times a week as needed 4. Hyponatremia - ICD9: 276.1, ICD10: E87.1 - Chronic, he has already seen nephrology and was placed on sodium tablets but he couldn't tolerate them 5. Encounter for immunization - ICD9: V03.89, ICD10: Z23 Immunizations were given as ordered. Vaccination information sheet(s) given. - INFLUENZA VACCINE, PRSV FREE, AGE 65+ YR, HIGH DOSE, TRIVALENT (FLUZONE HIGH-DOSE) - IMADM PRQ ID SUBQ/IM NJXS 1 VACC New medication(s) prescribed today: None. Counseling completed in adopting health behaviors such as avoiding excessive alcohol use, avoid tobacco use, improve nutrition, and engage in physical activities. Copy of written care plan, clinical summary, treatment plan, new medications, goals, and self management requirements were given to patient. Alma Gill APRN.CNP documented in this encounter [facility] 03-27-2024 Instructions Mitchell Caruso APRN.CNP - 03/27/2024 3:18 PM EST Prescription and open doors forms to be sent to speciality pharmacy to be able to start OFEV. 150 mg twice a day. Schedule echo and obtain labs. Oxygen testing at night on 2L oxygen. Schedule appointment with ILD specialist. The provider in [place] is Dr. Nelly Arguelles and the appointment number is [phone]. Plan to follow-up with Dr. Patel in 3 months. documented in this encounter [facility] 03-27-2024 History of Presen t illness Narrative Images from the original note were not included. Pulmonary Medicine Patients name: Mars Lopez PCP: Alma Gill APRN.CNP CC: ILD follow-up HPI: Mars Peterson is a 68 year old male former 80 pack year smoker, quitting 2001 with PMH significant for obesity, CAD s/p CABG, CHF, HTN, PAD, s/p right BKA, neuropathy, asthma with mild COPD, ILD and lung nodule. Current maintenance therapy with Trelegy and as needed Albuterol. Duoneb TID. He presents today for testing follow-up. His TOMMY was 03/13/[address] imaging revealed significant progression of ILD, consistent with IPF. Subsequent autoimmune workup negative. Econsult placed which recommends ILD referral, echo and LFT labs. Reviewed further recommendations. Patient agreeable to proceeding with anti fibrotic therapy. Today, patients reports she hears him coughing more at night. Patient unaware and feels symptoms are at baseline. Cough continues to be productive with thick, white sputum. All other symptoms unchanged. Most notably, continues to have wheezing and exertional dyspnea with minimal exertion. Working with PT d/t ongoing balance/mobility concerns. DME: Greg Currently wearing 2-3L at rest and 4L with exertion. 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 If you have any questions, ask your nurse or doctor. CONTINUE taking these medications acetaminophen 500 mg tablet Commonly known as: TYLENOL EXTRA STRENGTH Take 2 tablets by mouth every 8 hours as needed for pain. FOR PAIN. albuterol sulfate 90 mcg/actuation Aebs Inhale 1-2 Puffs as instructed every 4 hours as needed for wheezing/shortness of breath. aspirin, enteric coated 81 mg EC tablet Commonly known as: ASPIRIN, ENTERIC COATED busPIRone 5 mg tablet Commonly known as: BUSPAR TAKE 1 TABLET BY MOUTH THREE TIMES A DAY NEEDED clopidogrel 75 mg tablet Commonly known as: PLAVIX take 1 tablet by mouth every day colestipol 1 gram tablet Commonly known as: COLESTID Take 1 tablet by mouth two times a day. escitalopram oxalate 20 mg tablet Commonly known as: LEXAPRO Take 1 tablet by mouth once daily. ezetimibe 10 mg tablet Commonly known as: ZETIA take 1 tablet by mouth every day fluticasone 50 mcg/actuation nasal spray Commonly known as: FLONASE spray 1 spray into each nostril every day furosemide 40 mg tablet Commonly known as: LASIX TAKE 1 TABLET BY MOUTH THREE TIMES A WEEK. gabapentin 300 mg capsule Commonly known as: NEURONTIN TAKE 2 CAPSULES BY MOUTH EVERY MORNING AND 3 CAPSULES AT BEDTIME FOR 30 DAYS. Strength: 300 mg guaiFENesin 600 mg 12 hr tablet Commonly known as: MUCINEX Take 1 tablet by mouth two times a day as needed for cold/allergy symptoms. ipratropium-albuterol 0.5 mg-3 mg(2.5 mg base)/3 mL Nebu Commonly known as: DUONEB Inhale 3 mL as instructed every 4 hours as needed for wheezing/shortness of breath. isosorbide mononitrate ER 30 mg 24 hr tablet Commonly known as: IMDUR take 1 tablet by mouth every day lisinopril 2.5 mg tablet Take 1 tablet by mouth two times a day. Hold if SBP less than 110 metoprolol succinate ER 25 mg 24 hr tablet Commonly known as: TOPROL XL take 1 tablet by mouth every day nitroglycerin sublingual 0.4 mg SL tablet Commonly known as: NITROSTAT Dissolve 1 tablet under the tongue every 5 minutes as needed for chest pain. ONE-A-DAY MEN'S MULTIVITAMIN ORAL OXYGEN (HOME THERAPY) pantoprazole DR 40 mg tablet Commonly known as: PROTONIX take 1 tablet by mouth every day PROBIOTIC 10 billion cell Cap Generic drug: Lactobacillus acidophilus rosuvastatin 20 mg tablet Commonly known as: CRESTOR Take 1 tablet by mouth daily at bedtime. sodium chloride 0.65 % nasal spray Use 1 Jaffrey in the nose as needed. thiamine 100 mg tablet Commonly known as: VITAMIN B1 Take 1 tablet by mouth once daily. traZODone 100 mg tablet Commonly known as: DESYREL take 2 tablets by mouth daily at bedtime TRELEGY ELLIPTA 200-62.5-25 mcg inhalation powder Generic drug: qdkifznqyzk-pdzmttjyr-zqxdxmdg Inhale 1 Puff as instructed once daily. Zinc 50 mg Tab DATA: I personally reviewed and analyzed all labs, radiographs and available pulmonary function testing PFT: 11/2022 IMPRESSION: Spirometry shows no obstruction.The reduced FVC suggests restriction. 03/13/2024 IMPRESSION: Severity of restriction cannot be assessed. See RT comments above. The diffusing capacity (uncorrected for hemoglobin) is reduced. CXR: Last XR Chest - Impression Only XR CHEST 1V FRONTAL Exam End: 01/11/2024 4:14 PM (Final result) Impression: IMPRESSION: No acute radiographic abnormality. Moderate degree of chronic interstitial fibrotic changes ... CT Chest: 03/09/2024 IMPRESSION: Previous noted groundglass opacities have almost completely resolved. There is been significant interval progression of bilateral interstitial lung disease compared to 05/20/2023 favoring UIP over fibrotic type NSIP. Dilation of the pulmonary trunk which can be seen pulmonary hypertension. Stable mildly enlarged mediastinal lymph nodes which are likely reactive. No new suspicious nodule. Hot Wire Glass Tube Cutter: [id number] Transcribe Date/Time: Mar 13 2024 2:12P Dictated by : MATT REYES MD This examination was interpreted and the report reviewed and electronically signed by: MATT REYES MD on Mar 13 2024 2:28PM EST Results-Findings * * *Final Report* * * DATE OF EXAM: Mar 09 2024 2:24PM [facility] 0541 - CT CHEST WO IVCON / PROCEDURE REASON: Interstitial pulmonary disease (HCC) * * * * Physician Interpretation * * * * EXAMINATION: CHEST CT WITHOUT CONTRAST CLINICAL HISTORY: Interstitial lung disease. Technique: Spiral CT acquisition of the chest from the thoracic inlet to the upper abdomen without contrast. MQ: [id number] CT Radiation dose: Integrated Dose-length product (DLP) for this visit = 463.42 mGy*cm CT Dose Reduction Employed: mAs-kVp adjusted based on patient size-age Comparison: 01/11/2024 and 05/20/2023 RESULT: Limitations: None. Lines, tubes, and devices: None. Lung parenchyma and airways: Compared to 01/11/2024 there is been significant interval resolution of bilateral groundglass opacities with a few residual groundglass opacities noted in the left lung apex. Bilateral peripheral and lower lung predominant reticular opacities with traction bronchiectasis and honeycombing appears slightly progressed from 01/11/2024 and definitely progressed from 05/20/2023. No definite air-trapping on expiratory phase images. No new suspicious pulmonary nodule though evaluation is somewhat limited by extensive interstitial disease. No new consolidation. Pleural space: No pleural effusion. No pleural thickening. Lower neck, lymph nodes, and mediastinum: The imaged thyroid gland is normal. Similar mildly enlarged mediastinal lymph nodes which are likely reactive. Heart, pericardium, and thoracic vessels: Severe ione coronary artery desiccation. Status post CABG. Normal heart size. Aortic leaflet calcifications. Dilation of the pulmonary trunk measuring 3.5 cm.. No significant pericardial fluid. Bones and soft tissues: Mild bilateral gynecomastia. Median sternotomy. No suspicious osseous lesions. Upper abdomen: No abnormality in the imaged upper abdomen. Localizer images: No additional findings. Review of Systems Constitutional: Negative for activity change, appetite change, fever and unexpected weight change. HENT: Negative for congestion, mouth sores and postnasal drip. Respiratory: Positive for cough, shortness of breath and wheezing. Negative for chest tightness. Cardiovascular: Negative for chest pain, palpitations and leg swelling. Neurological: Negative for dizziness and weakness. BP 162/76 Pulse 64 Temp 36.3 C (97.3 F) (Temporal) Wt 122.7 kg (270 lb 9.6 oz) SpO2 95% BMI 36.70 kg/m Physical Exam Vitals reviewed. Constitutional: General: He is not in acute distress. Appearance: Normal appearance. He is not ill-appearing. HENT: Head: Normocephalic. Mouth/Throat: Mouth: Mucous membranes are moist. Pharynx: No oropharyngeal exudate. Cardiovascular: Rate and Rhythm: Normal rate and regular rhythm. Heart sounds: Normal heart sounds. Pulmonary: Effort: Pulmonary effort is normal. No respiratory distress. Breath sounds: Rhonchi present. Musculoskeletal: Left lower leg: No edema. Comments: Rt BKA Lymphadenopathy: Cervical: No cervical adenopathy. Skin: General: Skin is warm and dry. Capillary Refill: Capillary refill takes less than 2 seconds. Neurological: General: No focal deficit present. Mental Status: He is alert. ASSESSMENT/PLAN: 1. Idiopathic pulmonary fibrosis (HCC) - ICD9: 516.31, ICD10: J84.112 (primary diagnosis) - start treatment with Ofev 150mg BID. Advised on side effects. - Prescription and [employer] patient assistance application faxed. - refer to ILD clinic - HEPATIC FUNCTION PNL 2. Chronic hypoxemic respiratory failure (HCC) - ICD9: 518.83, 799.02, ICD10: J96.11 - 2-3L at rest and 4 with exertion - unable to obtain formal testing d/t rt BKA and limited mobility. - OXIMETRY - NOCTURNAL 3. Pulmonary arterial hypertension (HCC) - ICD9: 416.8, ICD10: I27.21 - CT chest with dilated pulmonary trunk, obtain echo to assess. - ECHO - PERFLUTREN LIPID MICROSPHERES 1.1 MG/ML INJECTION IN NS 10 ML - SODIUM CHLORIDE 0.9 % (FLUSH) INJECTION SYRINGE F/u 3 months Portions of this documentation were copied and pasted from previous office visit notes in order to provide a cohesive continuity of the history. The note has been reviewed and edited and updated as necessary. Mitchell Caruso APRN.EVANS I spent a total of 42 minutes on the date of the service which included preparing to see the patient, [id number] patient care, completing clinical documentation, performing a medically appropriate examination, counseling and educating the patient/family/caregiver, and ordering medications, tests, or procedures. documented in this encounter [facility] 03-27-2024 Note [facility] 03-23-2024 Telephone encounter Note patient electronically requesting refills as follows: Last seen 03/02/24 . Last refill 02/11/24 . Requested Prescriptions Pending Prescriptions Disp Refills guaiFENesin (MUCINEX) 600 mg 12 hr tablet 60 tablet 0 Sig: Take 1 tablet by mouth two times a day as needed for cold/allergy symptoms. Please review and advise. Precious Lacy MA [facility] 03-23-2024 Miscellaneous Notes patient electronically requesting refills as follows: Last seen 03/02/24 . Last refill 02/11/24 . Requested Prescriptions Pending Prescriptions Disp Refills guaiFENesin (MUCINEX) 600 mg 12 hr tablet 60 tablet 0 Sig: Take 1 tablet by mouth two times a day as needed for cold/allergy symptoms. Please review and advise. Precious Lacy MA documented in this encounter [facility] 03-20-2024 Note HNO ID: [id number] Author: QI ZAZUETA RN Service: ? Author Type: Registered Nurse Type: Progress Notes Filed: 03/20/2024 16:31 Note Text: AG TRANSITIONAL CARE MANAGEMENT (TCM) FOLLOW-UP NOTE Provider Action/FYI: Patient identified by name and date of : YES Spoke to: Diagnosis: COPD Summary: Patient wearing oxygen 3 liters nasal cannula, with pulse ox dropping with activity. Patient has pulmonary appointment on 03/27, with PCP appointment on 03/30. encourages patient to use nebulizer treatments routinely. Patient noted to have dry cough. Reviewed COPD zones and encouraged to report any changes in symptoms. verbalized understanding. Health leads screening tool questions performed? N/A Primary Care first education/Where to go for Care Concerns: Follow up appointment Inspector Aide plan for next outreach: Will follow-up in 2 weeks Signature: Qi Zazueta RN March 20, 2024 [facility] 03-20-2024 History of Presen t illness Narrative AG TRANSITIONAL CARE MANAGEMENT (TCM) FOLLOW-UP NOTE Provider Action/FYI: Patient identified by name and date of : YES Spoke to: Diagnosis: COPD Summary: Patient wearing oxygen 3 liters nasal cannula, with pulse ox dropping with activity. Patient has pulmonary appointment on 03/27, with PCP appointment on 03/30. encourages patient to use nebulizer treatments routinely. Patient noted to have dry cough. Reviewed COPD zones and encouraged to report any changes in symptoms. verbalized understanding. Health leads screening tool questions performed? N/A Primary Care first education/Where to go for Care Concerns: Follow up appointment Inspector Aide plan for next outreach: Will follow-up in 2 weeks Signature: Qi Zazueta RN March 20, 2024 documented in this encounter [facility] 03-20-2024 Telephone encounter Note Form completed and faxed Priya Pedersen MA [facility] 03-20-2024 Miscellaneous Notes Form completed and faxed Priya Pedersen MA Form received from [facility] placed on signing tray Priya Pedersen MA documented in this encounter [facility] 03-20-2024 Telephone encounter Note Form received from [facility] placed on signing chris Pedersen MA [facility] 03-20-2024 Note Patient Outreach (AG ACM) MARS PETERSON ([id number]) 1955 M DEF Date Time Provider Department 03/20/24 QI ZAZUETA [facility] During your visit today, we recorded the following information about you: Qi Zazueta RN 03/20/2024 4:31 PM Signed AG TRANSITIONAL CARE MANAGEMENT (TCM) FOLLOW-UP NOTE Provider Action/FYI: Patient identified by name and date of : YES Spoke to: Diagnosis: COPD Summary: Patient wearing oxygen 3 liters nasal cannula, with pulse ox dropping with activity. Patient has pulmonary appointment on 03/27, with PCP appointment on 03/30. encourages patient to use nebulizer treatments routinely. Patient noted to have dry cough. Reviewed COPD zones and encouraged to report any changes in symptoms. verbalized understanding. Health leads screening tool questions performed? N/A Primary Care first education/Where to go for Care Concerns: Follow up appointment Inspector Aide plan for next outreach: Will follow-up in 2 weeks Signature: Qi Zazueta RN March 20, 2024 Allergies As of Date: 03/20/2024 Noted Allergy Reaction ANIMAL DANDER 08/21/2022 14 - Other: See Comments Comments: Anything with fur SEASONAL ALLERGIES 08/21/2022 14 - Other: See Comments Comments: Stuffy nose, headaches Date Reviewed: 03/13/2024 Reviewed by: Mitchell Caruso APRN.TAG MACHINE OPERATOR - Fully Assessed Reason for Visit: Transition Of Care [4074] Cmt: TCM follow up call Prescriptions as of 03/20/2024 - OXYGEN, HOME THERAPY, 3 L/min by Nasal Cannula route as directed. - escitalopram oxalate (LEXAPRO) 20 mg tablet Take 1 tablet by mouth once daily. - busPIRone (BUSPAR) 5 mg tablet TAKE 1 TABLET BY MOUTH THREE TIMES A DAY NEEDED - gabapentin (NEURONTIN) 300 mg capsule TAKE 2 CAPSULES BY MOUTH EVERY MORNING AND 3 CAPSULES AT BEDTIME FOR 30 DAYS. Strength: 300 mg - guaiFENesin (MUCINEX) 600 mg 12 hr tablet Take 1 tablet by mouth two times a day as needed for cold/allergy symptoms. - colestipol (COLESTID) 1 gram tablet Take 1 tablet by mouth two times a day. - lisinopril 2.5 mg tablet Take 1 tablet by mouth two times a day. Hold if SBP less than 110 - thiamine (VITAMIN B1) 100 mg tablet Take 1 tablet by mouth once daily. - ipratropium-albuterol (DUONEB) 0.5 mg-3 mg(2.5 mg base)/3 mL nebu Inhale 3 mL as instructed every 4 hours as needed for wheezing/shortness of breath. - metoprolol succinate ER (TOPROL XL) 25 mg 24 hr tablet take 1 tablet by mouth every day - isosorbide mononitrate ER (IMDUR) 30 mg 24 hr tablet take 1 tablet by mouth every day - ezetimibe (ZETIA) 10 mg tablet take 1 tablet by mouth every day - clopidogrel (PLAVIX) 75 mg tablet take 1 tablet by mouth every day - fluticasone (FLONASE) 50 mcg/actuation nasal spray spray 1 spray into each nostril every day - pantoprazole DR (PROTONIX) 40 mg tablet take 1 tablet by mouth every day - traZODone (DESYREL) 100 mg tablet take 2 tablets by mouth daily at bedtime - furosemide (LASIX) 40 mg tablet TAKE 1 TABLET BY MOUTH THREE TIMES A WEEK. - nopjpkqfnzd-pmebwygyg-inkgirml (TRELEGY ELLIPTA) 200-62.5-25 mcg inhalation powder Inhale 1 Puff as instructed once daily. - nitroglycerin sublingual (NITROSTAT) 0.4 mg SL tablet Dissolve 1 tablet under the tongue every 5 minutes as needed for chest pain. - rosuvastatin (CRESTOR) 20 mg tablet Take 1 tablet by mouth daily at bedtime. - albuterol sulfate 90 mcg/actuation aebs Inhale 1-2 Puffs as instructed every 4 hours as needed for wheezing/shortness of breath. - sodium chloride 0.65 % nasal spray Use 1 Jaffrey in the nose as needed. - Lactobacillus acidophilus (PROBIOTIC) 10 billion cell cap Take 1 capsule by mouth once daily. - acetaminophen (TYLENOL EXTRA STRENGTH) 500 mg tablet Take 2 tablets by mouth every 8 hours as needed for pain. FOR PAIN. - Zinc 50 mg tab Take 50 mg by mouth once daily. - aspirin, enteric coated (ASPIRIN, ENTERIC COATED) 81 mg EC tablet Take 81 mg by mouth once daily. - multivit-min/folic/vit K/lycop (ONE-A-DAY MEN'S MULTIVITAMIN ORAL) Take by mouth once daily. 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 [facility] 03-19-2024 Telephone encounter Note Form received from [facility] placed on signing tray they are wanting it completed urgently Priya Pedersen MA [facility] 03-19-2024 Miscellaneous Notes Form received from [facility] placed on signing tray they are wanting it completed urgently Priya Pedersen MA documented in this encounter [facility] 03-17-2024 Telephone encounter Note Royer PT with [facility] called stating he did patient's re-cert today and will be continuing to see patient once a week for 5 weeks. Precious Lacy MA [facility] 03-17-2024 Miscellaneous Notes Royer PT with [facility] called stating he did patient's re-cert today and will be continuing to see patient once a week for 5 weeks. Precious Lacy MA documented in this encounter [facility] 03-13-2024 Note HNO ID: [id number] Author: JOSE OLVERA MD Service: ? Author Type: Physician Type: Progress Notes Filed: 03/13/2024 18:43 Note Text: E-Consult Response In response to your eConsult request to [facility] for Mars Peterson regarding the clinical question: "Is this UIP and any further workup needed?". History of present illness provided through requesting provider documentation and current treatment plan was reviewed. Based on the patient history provided, my impression is as follows: 68 yo M with PMHx CAD s/p CABG, obesity, PAD. Reviewed Chest CT dated 02/2024 and 12/2023, 08/22/22 Worsening subpleural reticulation with honeycombing. Prominence in upper lobes in last Chest CT scan Low DLCO (32%) out of proportion for FVC (60%) Fibrotic ILD. Likely UIP. Ddx include fibrotic HP given honeycombing with prominence in upper lobes Recommend - referral to ILD group. - agree with CTD screening : JOY ID, RF, anti-CCP - concern for pulmonary hypertension. Add 6MWT, pro-BNP and ECHO. - update LFT. - I feel is reasonable to consider antifibrotics given worsening radiographic appearance - patient might be eligible for lung transplant evaluation E-Consult follow up recommendation: Please let us know if you would like us to arrange the appt with ILD group Jose Jacobs MD March 13, 2024 [facility] 03-13-2024 History of Presen t illness Narrative E-Consult Response In response to your eConsult request to [facility] for Mars Peterson regarding the clinical question: "Is this UIP and any further workup needed?". History of present illness provided through requesting provider documentation and current treatment plan was reviewed. Based on the patient history provided, my impression is as follows: 68 yo M with PMHx CAD s/p CABG, obesity, PAD. Reviewed Chest CT dated 02/2024 and 12/2023, 08/22/22 Worsening subpleural reticulation with honeycombing. Prominence in upper lobes in last Chest CT scan Low DLCO (32%) out of proportion for FVC (60%) Fibrotic ILD. Likely UIP. Ddx include fibrotic HP given honeycombing with prominence in upper lobes Recommend - referral to ILD group. - agree with CTD screening : JOY ID, RF, anti-CCP - concern for pulmonary hypertension. Add 6MWT, pro-BNP and ECHO. - update LFT. - I feel is reasonable to consider antifibrotics given worsening radiographic appearance - patient might be eligible for lung transplant evaluation E-Consult follow up recommendation: Please let us know if you would like us to arrange the appt with ILD group Jose Jacobs MD March 13, 2024 documented in this encounter [facility] 03-13-2024 History of Presen t illness Narrative Images from the original note were not included. Pulmonary Medicine Patients name: Mars Lopez PCP: Alma Gill APRN.TAG MACHINE OPERATOR CC: CT follow-up HPI: Mars Peterson is a 68 year old male former 80 pack year smoker, quitting 2001 with PMH significant for obesity, CAD s/p CABG, CHF, HTN, PAD, s/p right BKA, neuropathy, asthma with mild COPD, ILD and lung nodule. Current maintenance therapy with Trelegy and as needed Albuterol. Duoneb TID. TOMMY 01/29/2024. He had a hospital admission from 01/10-01/15 secondary to acute hypoxemic respiratory failure due to acute exacerbation of COPD. Chest CT showed interval development of bilateral groundglass infiltrates most pronounced in the upper lobes felt to represent a superimposed infectious/inflammatory process. Reactive mediastinal and hilar lymphadenopathy present. Follow-up chest CT was recommended and just completed 03/09. CT reveals resolution of the groundglass opacities but does show significant progression of interstitial disease with IPF pattern. Results shared with patient and . Today, patient continues to report productive cough with thick, white sputum. No longer yellow. No hemoptysis. Continues to have wheezing and exertional dyspnea with minimal exertion. Per patients , he spends most of his time in a wheelchair and has been for many years. He has difficulty with balance d/t BKA but has been working with home PT. Currently only able to walk 10-20 feet before having to stop. SPo2 at home is 93-94% on 3L at rest. Drops with exertion. No fevers, chills, or night sweats. No recent hospitalizations or ED visits or upper respiratory infections. Underwent PFT testing today. Unable to safely complete oximetry with ambulation d/t instability. Patient presented to the office on 3L with SPO2 at 87% on exertion. Improved to 93% when increased to 4L NC. Consistent with what family reports occurs at home. DME: unknown [facility] Currently wearing 3L supplemental oxygen continuously. 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 If you have any questions, ask your nurse or doctor. CONTINUE taking these medications acetaminophen 500 mg tablet Commonly known as: TYLENOL EXTRA STRENGTH Take 2 tablets by mouth every 8 hours as needed for pain. FOR PAIN. albuterol sulfate 90 mcg/actuation Aebs Inhale 1-2 Puffs as instructed every 4 hours as needed for wheezing/shortness of breath. ascorbic acid (vitamin C) 500 mg tablet Commonly known as: VITAMIN C aspirin, enteric coated 81 mg EC tablet Commonly known as: ASPIRIN, ENTERIC COATED busPIRone 5 mg tablet Commonly known as: BUSPAR TAKE 1 TABLET BY MOUTH THREE TIMES A DAY NEEDED clopidogrel 75 mg tablet Commonly known as: PLAVIX take 1 tablet by mouth every day colestipol 1 gram tablet Commonly known as: COLESTID Take 1 tablet by mouth two times a day. escitalopram oxalate 20 mg tablet Commonly known as: LEXAPRO Take 1 tablet by mouth once daily. ezetimibe 10 mg tablet Commonly known as: ZETIA take 1 tablet by mouth every day fluticasone 50 mcg/actuation nasal spray Commonly known as: FLONASE spray 1 spray into each nostril every day furosemide 40 mg tablet Commonly known as: LASIX TAKE 1 TABLET BY MOUTH THREE TIMES A WEEK. gabapentin 300 mg capsule Commonly known as: NEURONTIN TAKE 2 CAPSULES BY MOUTH EVERY MORNING AND 3 CAPSULES AT BEDTIME FOR 30 DAYS. Strength: 300 mg guaiFENesin 600 mg 12 hr tablet Commonly known as: MUCINEX Take 1 tablet by mouth two times a day as needed for cold/allergy symptoms. ipratropium-albuterol 0.5 mg-3 mg(2.5 mg base)/3 mL Nebu Commonly known as: DUONEB Inhale 3 mL as instructed every 4 hours as needed for wheezing/shortness of breath. isosorbide mononitrate ER 30 mg 24 hr tablet Commonly known as: IMDUR take 1 tablet by mouth every day lisinopril 2.5 mg tablet Take 1 tablet by mouth two times a day. Hold if SBP less than 110 metoprolol succinate ER 25 mg 24 hr tablet Commonly known as: TOPROL XL take 1 tablet by mouth every day nitroglycerin sublingual 0.4 mg SL tablet Commonly known as: NITROSTAT Dissolve 1 tablet under the tongue every 5 minutes as needed for chest pain. ONE-A-DAY MEN'S MULTIVITAMIN ORAL pantoprazole DR 40 mg tablet Commonly known as: PROTONIX take 1 tablet by mouth every day PROBIOTIC 10 billion cell Cap Generic drug: Lactobacillus acidophilus rosuvastatin 20 mg tablet Commonly known as: CRESTOR Take 1 tablet by mouth daily at bedtime. sodium chloride 0.65 % nasal spray Use 1 Jaffrey in the nose as needed. thiamine 100 mg tablet Commonly known as: VITAMIN B1 Take 1 tablet by mouth once daily. traZODone 100 mg tablet Commonly known as: DESYREL take 2 tablets by mouth daily at bedtime TRELEGY ELLIPTA 200-62.5-25 mcg inhalation powder Generic drug: tjpbfeqjnec-bswysvojp-hcofgdxf Inhale 1 Puff as instructed once daily. Zinc 50 mg Tab DATA: I personally reviewed and analyzed all labs, radiographs and available pulmonary function testing PFT: 03/13/2024 CXR: Last XR Chest - Impression Only XR CHEST 1V FRONTAL Exam End: 01/11/2024 4:14 PM (Final result) Impression: IMPRESSION: No acute radiographic abnormality. Moderate degree of chronic interstitial fibrotic changes ... CT Chest: 03/09/2024 IMPRESSION: Previous noted groundglass opacities have almost completely resolved. There is been significant interval progression of bilateral interstitial lung disease compared to 05/20/2023 favoring UIP over fibrotic type NSIP. Dilation of the pulmonary trunk which can be seen pulmonary hypertension. Stable mildly enlarged mediastinal lymph nodes which are likely reactive. No new suspicious nodule. Hot Wire Glass Tube Cutter: WENCESLAO Transcribe Date/Time: Mar 13 2024 2:12P Dictated by : MATT REYES MD This examination was interpreted and the report reviewed and electronically signed by: MATT REYES MD on Mar 13 2024 2:28PM EST Results-Findings * * *Final Report* * * DATE OF EXAM: Mar 09 2024 2:24PM [facility] 0541 - CT CHEST WO IVCON / PROCEDURE REASON: Interstitial pulmonary disease (HCC) * * * * Physician Interpretation * * * * EXAMINATION: CHEST CT WITHOUT CONTRAST CLINICAL HISTORY: Interstitial lung disease. Technique: Spiral CT acquisition of the chest from the thoracic inlet to the upper abdomen without contrast. MQ: [id number] CT Radiation dose: Integrated Dose-length product (DLP) for this visit = 463.42 mGy*cm CT Dose Reduction Employed: mAs-kVp adjusted based on patient size-age Comparison: 01/11/2024 and 05/20/2023 RESULT: Limitations: None. Lines, tubes, and devices: None. Lung parenchyma and airways: Compared to 01/11/2024 there is been significant interval resolution of bilateral groundglass opacities with a few residual groundglass opacities noted in the left lung apex. Bilateral peripheral and lower lung predominant reticular opacities with traction bronchiectasis and honeycombing appears slightly progressed from 01/11/2024 and definitely progressed from 05/20/2023. No definite air-trapping on expiratory phase images. No new suspicious pulmonary nodule though evaluation is somewhat limited by extensive interstitial disease. No new consolidation. Pleural space: No pleural effusion. No pleural thickening. Lower neck, lymph nodes, and mediastinum: The imaged thyroid gland is normal. Similar mildly enlarged mediastinal lymph nodes which are likely reactive. Heart, pericardium, and thoracic vessels: Severe ione coronary artery desiccation. Status post CABG. Normal heart size. Aortic leaflet calcifications. Dilation of the pulmonary trunk measuring 3.5 cm.. No significant pericardial fluid. Bones and soft tissues: Mild bilateral gynecomastia. Median sternotomy. No suspicious osseous lesions. Upper abdomen: No abnormality in the imaged upper abdomen. Localizer images: No additional findings. Labs: WBC (k/uL) Date Value 01/15/2024 9.56 RBC (m/uL) Date Value 01/15/2024 4.78 Hemoglobin (g/dL) Date Value 01/15/2024 13.3 Hematocrit (%) Date Value 01/15/2024 41.2 Platelet Count (k/uL) Date Value 01/15/2024 301 MPV (fL) Date Value 01/15/2024 8.7 Neutrophils % (%) Date Value 01/12/2024 79.6 Eosinophils % (%) Date Value 01/12/2024 0.2 Basophils % (%) Date Value 01/12/2024 0.2 Abs Neut (k/uL) Date Value 01/12/2024 5.01 Abs [place] (k/uL) Date Value 01/12/2024 0.40 Abs Eosin (k/uL) Date Value 01/12/2024 <0.03 Abs Baso (k/uL) Date Value 01/12/2024 <0.03 Review of Systems Constitutional: Negative for activity change, appetite change and unexpected weight change. HENT: Negative for congestion, mouth sores, postnasal drip, rhinorrhea and sinus pain. Respiratory: Positive for cough, shortness of breath and wheezing. Cardiovascular: Negative for chest pain, palpitations and leg swelling. Neurological: Positive for weakness. Negative for dizziness and light-headedness. BP 122/72 (BP Site: Right Arm, BP Position: Sitting, BP Cuff Size: Large Adult) Pulse 60 Resp 22 Ht 182.9 cm (6') Wt 122 kg (268 lb 15.4 oz) SpO2 95% BMI 36.48 kg/m Physical Exam Vitals reviewed. Constitutional: General: He is not in acute distress. Appearance: Normal appearance. He is normal weight. He is not ill-appearing. HENT: Head: Normocephalic. Nose: No rhinorrhea. Mouth/Throat: Mouth: Mucous membranes are moist. Pharynx: No oropharyngeal exudate. Cardiovascular: Rate and Rhythm: Normal rate and regular rhythm. Heart sounds: Normal heart sounds. Pulmonary: Effort: Pulmonary effort is normal. No respiratory distress. Breath sounds: Rhonchi present. No wheezing. Comments: B/l bases Musculoskeletal: Left lower leg: No edema. Comments: Rt BKA Lymphadenopathy: Cervical: No cervical adenopathy. Skin: General: Skin is warm and dry. Capillary Refill: Capillary refill takes less than 2 seconds. Neurological: General: No focal deficit present. Mental Status: He is alert. ASSESSMENT/PLAN: 1. ILD (interstitial lung disease) (HCC) - ICD9: 515, ICD10: J84.9 (primary diagnosis) 2. Idiopathic pulmonary fibrosis (HCC) - ICD9: 516.31, ICD10: J84.112 - review of most recent CT images with significant progression of interstitial disease consistent with pulmonary fibrosis. - labs to rule out autoimmune cause - discussed anti fibrotic therapy with Alvina. Discussed patient assistance program, agreeable. - will follow-up in 2 weeks to review labs and enroll patient into assistance program for treatment pending results of blood work. - ALDOLASE BLD - MICHAEL BLOOD - ANTI JOY ID - RHEUMATOID FACTOR - SEDIMENTATION RATE, WESTERGREN - C-REACTIVE PROTEIN - CREATINE KINASE/CK - HYPERSEN PNEUMON AB - CCP ANTIBODY IGG 3. Chronic hypoxemic respiratory failure (HCC) - ICD9: 518.83, 799.02, ICD10: J96.11 - continues to benefit from supplemental O2. - unable to complete formal oximetry with ambulation. - on 3L at rest but dropped with exertion on presentation. Improved with increase to 4L. 4. COPD, mild (HCC) - ICD9: 496, ICD10: J44.9 - continue Trelegy 200 - continue Albuterol PRN F/u 2 weeks Portions of this documentation were copied and pasted from previous office visit notes in order to provide a cohesive continuity of the history. The note has been reviewed and edited and updated as necessary. Mitchell Caruso APRN.EVANS I spent a total of 46 minutes on the date of the service which included preparing to see the patient, [id number] patient care, completing clinical documentation, performing a medically appropriate examination, counseling and educating the patient/family/caregiver, ordering medications, tests, or procedures, and communicating results to the patient/family/caregiver. documented in this encounter [facility] 03-13-2024 Procedure note Associated Ord er(s): OXIMETRY WITH AMBULATION Patient is unable to walk safely with walker to obtain ambulatory oximetry data. RANJITH Sky [facility] 03-13-2024 Procedure note Associated Ord er(s): OXIMETRY WITH AMBULATION Patient is unable to walk safely with walker to obtain ambulatory oximetry data. RANJITH Sky documented in this encounter [facility] 03-13-2024 History of Presen t illness Narrative PULM FUNCTION: Provider: Francisco Patel MD Assisting Tech: Beba Rose RPFT DLCO: 1 LV - Gas: 1 documented in this encounter [facility] 03-10-2024 Telephone encounter Note Patient requesting refills: Last office visit 03/02/2024. Last refill 03/02/2024 . Requested Prescriptions Pending Prescriptions Disp Refills escitalopram oxalate (LEXAPRO) 20 mg tablet 90 tablet 1 Sig: Take 1 tablet by mouth once daily. Please review and advise. Suzanne Almaguer MA [facility] 03-10-2024 Miscellaneous Notes Patient requesting refills: Last office visit 03/02/2024. Last refill 03/02/2024 . Requested Prescriptions Pending Prescriptions Disp Refills escitalopram oxalate (LEXAPRO) 20 mg tablet 90 tablet 1 Sig: Take 1 tablet by mouth once daily. Please review and advise. Suzanne Almaguer MA documented in this encounter [facility] 03-09-2024 Telephone encounter Note Patient's is informed and states his breathing is better since doing breathing treatments Priya Pedersen MA [facility] 03-09-2024 Miscellaneous Notes Patient's is informed and states his breathing is better since doing breathing treatments Priya Pedersen MA ----- Message from Alma Gill APRN.TAG MACHINE OPERATOR sent at 03/09/2024 3:26 PM EDT ----- BNP is stable BMP showed kidney function is stable. Sodium was 129 which is up from 126. How is his breathing? documented in this encounter [facility] 03-09-2024 Telephone encounter Note ----- Message from Alma Gill APRN.TAG MACHINE OPERATOR sent at 03/09/2024 3:26 PM EDT ----- BNP is stable BMP showed kidney function is stable. Sodium was 129 which is up from 126. How is his breathing? [facility] 03-02-2024 History of Presen t illness Narrative CHIEF COMPLAINT: Mars Peterson is a 68 year old male who presents for Hospital F/U. I reviewed past medical, surgical, social, and family histories today and updated chart. Allergies, chronic medications, and supplements were also reviewed. Oxygen at home is at 3 L continuously at home with concentrator SpO2 was 78% when he arrived into the office today but improved once his portable was placed on continuous Following with pulmonary medicine Has CT chest scheduled on 03/09 Pulmonary testing on 03/13 Seeing pulmonary right after testing Cutting back to 2-3 beers a day Drinking more water Only having pop a few times a week His home RN had called in a coupel weeks ago stating John was feeling more anxious. He was on Hydroxyzine at the time but this was stopped and Buspar was started. He was then started on Lexapro while in the hospital. Per his he has been taking both the Buspar and Hydroxyzine. He only took the Lexapro for 30 days because that is what was sent in after discharge and they did not call in for a refill. Needs BMP rechecked for low sodium. He can't tolerate sodium tablets (upset his stomach per his ). He has has seen nephrology for his kidneys and sodium levels before. He is currently on Lasix 40 mg three times a week. He did not take his dose today because of today's appointment. HOSPITAL COURSE: Mars Peterson is a 68 year old male with PMH of CAD s/p CABG, CHF, HTN, COPD, GERD, ILD, PAD, osteomyelitis s/p R BKA, neuropathy, and pulmonary nodule who presented to [facility] with complaints of shortness of breath that has been ongoing and progressive over the last week with associated generalized weakness on 01/11/2024. He reports he was unable to get up prior to coming to the ED and once he did, he was only able to ambulate very few steps before becoming extremely SOB. He also reported low grade fevers at home. He reports taking lasix three times a week at home. Denies weight gain, leg swelling, ABD bloating, chest pain. In the ED: labs were significant for Na 124; d dimer elevated; BNP 3295; anion gap 16, CO2 20, chloride 88. High-sensitivity troponins 28 but down trended to 22. Chest x-ray showed no acute abnormality but moderate degree of chronic interstitial fibrotic changes. CT of the chest was negative for pulmonary embolism but showed interval development of bilateral groundglass infiltrates most pronounced in the upper lobes felt to represent a superimposed infectious/inflammatory process. Reactive mediastinal and hilar lymphadenopathy present. Patient was started on IV antibiotics, received a dose of furosemide and Solu-Medrol. Treated with breathing treatments and admitted under the hospitalist service for further workup and management of acute respiratory failure with hypoxia as pulse ox was noted at 70% upon arriving to the ED. - patient received IV lasix x3 doses and had large bump in creatinine. Lasix was held for a day with improvement in Cr. Can resume Lasix three times a week per home regimen. - Patient received IV steroids as patient presented more as COPD exacerbation on exam. He was transitioned to PO steroids to complete course. - patient completed 3d Z-pack and 7d Keflex. Sputum cx noted rare staph. - Na was noted to be as low as 122, but improved by DC to 126. - patient refused fluid restriction and unable to tolerate Salt tabs in the past. - numerous attempts were made to wean off oxygen without success. He had desat study for which he qualified for oxygen. Oxygen was set up for in-home. - PRN nebulizer were ordered at [facility] to be used every 4 hours as needed for SOB/wheezing. - Patient instructed to follow up with pulm in 1-2 weeks. - BP was noted to be lower end of normal while at [place]. Parameters placed on Lisinopril to hold if SBP less than 110. Take BP twice a day and record results to show PCP at f/u appointment. - Thiamine was started for chronic ETOH use. - PT/OT recommended SNF, but patient declined. He will have [facility] services at home. - follow up with PCP in 1-2 weeks to discuss recent hospitalization. - return to the ED if symptoms return. 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 DJD (degenerative joint disease) Essential hypertension Heart attack ([facility]) 2000 States his previous animal trainer told him he had a heart attack based on EKG (in [place]) Neuropathy Osteomyelitis of foot ([facility]) Peripheral vascular disease ([facility]) S/P CABG (coronary artery bypass graft) Umbilical hernia PAST SURGICAL HISTORY Procedure Laterality Date BACK SURGERY HX 2017 CABG (1) VEIN GRAFT & ARTERIAL GRAFT 2001 CABG x4 COLONOSCOPY 2006 FINGER AMPUTATION (SPECIFY DIGIT) HX HIP SURGERY HX 1999 1999, 2019 Replacement Right and left LEG AMPUTATION HX Right 2018 PAST SURGICAL HISTORY OF coccyx REMV CATARACT EXTRACAP,INSERT LENS Bilateral Social History Tobacco Use Smoking status: Former Current packs/day: 0.00 Average packs/day: 2.0 packs/day for 40.0 years (80.0 ttl pk-yrs) Types: Cigarettes Start date: 05/13/1961 Quit date: 05/13/2001 Years since quittin.8 Smokeless tobacco: Former Types: Chew Vaping Use Vaping status: Never Used Substance Use Topics Alcohol use: Yes Alcohol/week: 10.0 standard drinks of alcohol Types: 10 Cans of beer per week Drug use: Never ALLERGIES Allergen Reactions Animal Dander Other: See Comments Anything with fur Seasonal Allergies Other: See Comments Stuffy nose, headaches Family History Problem Relation Age of Onset Ovarian cancer Mother other (afib) Mother COPD Mother Heart Father heart attack other (Chronic oxygen) Father other (bladder cancer) Maternal Aunt Cancer Maternal Aunt Cancer Maternal Uncle Heart Paternal Uncle Leukemia Paternal Uncle Colon Cancer No Family History Current Outpatient Medications Medication Sig Dispense Refill busPIRone (BUSPAR) 5 mg tablet TAKE 1 TABLET BY MOUTH THREE TIMES A DAY NEEDED 270 tablet 1 gabapentin (NEURONTIN) 300 mg capsule TAKE 2 CAPSULES BY MOUTH EVERY MORNING AND 3 CAPSULES AT BEDTIME FOR 30 DAYS. Strength: 300 mg 150 capsule 2 guaiFENesin (MUCINEX) 600 mg 12 hr tablet Take 1 tablet by mouth two times a day as needed for cold/allergy symptoms. 60 tablet 0 colestipol (COLESTID) 1 gram tablet Take 1 tablet by mouth two times a day. 180 tablet 1 lisinopril 2.5 mg tablet Take 1 tablet by mouth two times a day. Hold if SBP less than 110 180 tablet 3 ipratropium-albuterol (DUONEB) 0.5 mg-3 mg(2.5 mg base)/3 mL nebu Inhale 3 mL as instructed every 4 hours as needed for wheezing/shortness of breath. 360 mL 1 metoprolol succinate ER (TOPROL XL) 25 mg 24 hr tablet take 1 tablet by mouth every day 90 tablet 1 isosorbide mononitrate ER (IMDUR) 30 mg 24 hr tablet take 1 tablet by mouth every day 90 tablet 1 ezetimibe (ZETIA) 10 mg tablet take 1 tablet by mouth every day 90 tablet 3 clopidogrel (PLAVIX) 75 mg tablet take 1 tablet by mouth every day 90 tablet 1 fluticasone (FLONASE) 50 mcg/actuation nasal spray spray 1 spray into each nostril every day [address] (PROTONIX) 40 mg tablet take 1 tablet by mouth every day 90 tablet 1 traZODone (DESYREL) 100 mg tablet take 2 tablets by mouth daily at bedtime 180 tablet 1 furosemide (LASIX) 40 mg tablet TAKE 1 TABLET BY MOUTH THREE TIMES A WEEK. 36 tablet 1 alziflvgjxq-hrcojiyge-bfsytwlq (TRELEGY ELLIPTA) 200-62.5-25 mcg inhalation powder Inhale 1 Puff as instructed once daily. 1 Each 11 nitroglycerin sublingual (NITROSTAT) 0.4 mg SL tablet Dissolve 1 tablet under the tongue every 5 minutes as needed for chest pain. 25 tablet 0 rosuvastatin (CRESTOR) 20 mg tablet Take 1 tablet by mouth daily at bedtime. 90 tablet 3 albuterol sulfate 90 mcg/actuation aebs Inhale 1-2 Puffs as instructed every 4 hours as needed for wheezing/shortness of breath. 1 Each 2 sodium chloride 0.65 % nasal spray Use 1 Jaffrey in the nose as needed. 50 mL 2 Lactobacillus acidophilus (PROBIOTIC) 10 billion cell cap Take 1 capsule by mouth once daily. acetaminophen (TYLENOL EXTRA STRENGTH) 500 mg tablet Take 2 tablets by mouth every 8 hours as needed for pain. FOR PAIN. 90 tablet 0 Zinc 50 mg tab Take 50 mg by mouth once daily. aspirin, enteric coated (ASPIRIN, ENTERIC COATED) 81 mg EC tablet Take 81 mg by mouth once daily. ascorbic acid, vitamin C, (VITAMIN C) 500 mg tablet Take 500 mg by mouth once daily. multivit-min/folic/vit K/lycop (ONE-A-DAY MEN'S MULTIVITAMIN ORAL) Take by mouth once daily. thiamine (VITAMIN B1) 100 mg tablet Take 1 tablet by mouth once daily. (Patient not taking: Reported on 02/27/2024) 30 tablet 0 No current facility-administered medications for this visit. Review of Systems Constitutional: Positive for fatigue. Negative for chills, diaphoresis, fever and unexpected weight change. HENT: Positive for congestion, postnasal drip, sinus pressure and sneezing. Negative for ear pain, rhinorrhea, sinus pain, sore throat and trouble swallowing. Eyes: Negative for visual disturbance. Respiratory: Positive for cough, chest tightness, shortness of breath and wheezing. Cardiovascular: Negative for chest pain, palpitations and leg swelling. Gastrointestinal: Negative for abdominal pain, constipation, diarrhea, nausea and vomiting. Endocrine: Negative. Genitourinary: Negative. Musculoskeletal: Positive for gait problem ((poor balance, RLE amputation).). Negative for back pain and neck pain. Skin: Negative. Neurological: Negative for dizziness, seizures, syncope, light-headedness and headaches. Hematological: Negative. Psychiatric/Behavioral: Negative. BP 118/68 Pulse 62 Temp 97.6 Resp 18 Wt 269 lb (122.0kg) SpO2 95[3 L]% Physical Exam Vitals and nursing note reviewed. Constitutional: Appearance: He is obese. Comments: Sitting in wheelchair on portable oxygen HENT: Nose: Nose normal. Mouth/Throat: Mouth: Mucous membranes are moist. Eyes: Pupils: Pupils are equal, round, and reactive to light. Cardiovascular: Rate and Rhythm: Normal rate and regular rhythm. Heart sounds: Normal heart sounds, S1 normal and S2 normal. Comments: Right BKA Pulmonary: Effort: No tachypnea, accessory muscle usage or respiratory distress. Breath sounds: Examination of the right-middle field reveals rales. Examination of the left-middle field reveals rales. Examination of the right-lower field reveals rales. Examination of the left-lower field reveals rales. Rales present. No wheezing. Comments: He is able to speak in about 5-6 word sentences due to his breathing Abdominal: General: Bowel sounds are normal. There is no distension. Palpations: Abdomen is soft. Tenderness: There is no abdominal tenderness. Musculoskeletal: Left lower leg: No edema. 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 Skin: General: Skin is warm and dry. Neurological: Mental Status: He is alert and oriented to person, place, and time. Psychiatric: Mood and Affect: Mood normal. Behavior: Behavior normal. Cognition and Memory: Cognition normal. No visits with results within 1 Day(s) from this visit. Latest known visit with results is: Admission on 01/11/2024, Discharged on 01/16/2024 Component Date Value Ref Range Status Glucose 01/11/2024 126 (H) 74 - 99 mg/dL Final The [place] Diabetes [employer] (ADA) provides guidance for cutoff values for fasting glucose and random glucose. The ADA defines fasting as no caloric intake for at least 8 hours. Fasting plasma glucose results between 100 to 125 mg/dL indicate increased risk for diabetes (prediabetes). Fasting plasma glucose results greater than or equal to 126 mg/dL meet the criteria for diagnosis of diabetes. In the absence of unequivocal hyperglycemia, results should be confirmed by repeat testing. In a patient with classic symptoms of hyperglycemia or hyperglycemic crisis, random plasma glucose results greater than or equal to 200 mg/dL meet the criteria for diagnosis of diabetes. Reference: Standards of Medical Care in Diabetes 2016, [place] [employer]. Diabetes Care. 2016.39(Suppl 1). BUN 01/11/2024 10 9 - 24 mg/dL Final Creatinine 01/11/2024 1.11 0.73 - 1.22 mg/dL Final Sodium 01/11/2024 124 (L) 136 - 144 mmol/L Final Potassium 01/11/2024 4.2 3.7 - 5.1 mmol/L Final Chloride 01/11/2024 88 (L) 98 - 107 mmol/L Final CO2 01/11/2024 20 (L) 22 - 30 mmol/L Final Anion Gap 01/11/2024 16 (H) 8 - 15 mmol/L Final Calcium, Total 01/11/2024 9.0 8.5 - 10.2 mg/dL Final Estimated Glomerular Filtration Ra* 01/11/2024 71 >=60 mL/min/1.73m Final Estimated Glomerular Filtration Rate (eGFR) is calculated using the 2020 CKD-EPI creatinine equation. This equation utilizes serum creatinine, sex, and age as parameters. The creatinine assay has traceable calibration to isotope dilution-mass spectrometry. Refer to KDIGO guidelines for clinical interpretation. In patients with unstable renal function, e.g. those with acute kidney injury, the eGFR may not accurately reflect actual GFR. SAMI High Sensitivity 01/11/2024 28 (H) <12 ng/L Final NT Pro BNP 01/11/2024 3,295 (H) <125 pg/mL Final WBC 01/11/2024 9.79 3.70 - 11.00 k/uL Final RBC 01/11/2024 5.42 4.20 - 6.00 m/uL Final Hemoglobin 01/11/2024 15.1 13.0 - 17.0 g/dL Final Hematocrit 01/11/2024 46.0 39.0 - 51.0 % Final MCV 01/11/2024 84.9 80.0 - 100.0 fL Final MCH 01/11/2024 27.9 26.0 - 34.0 pg Final MCHC 01/11/2024 32.8 30.5 - 36.0 g/dL Final RDW-CV 01/11/2024 12.4 11.5 - 15.0 % Final Platelet Count 01/11/2024 280 150 - 400 k/uL Final MPV 01/11/2024 9.1 9.0 - 12.7 fL Final Neutrophils % 01/11/2024 73.4 % Final Abs Neut 01/11/2024 7.18 1.45 - 7.50 k/uL Final Lymphocytes % 01/11/2024 9.6 % Final Abs Lymph 01/11/2024 0.94 (L) 1.00 - 4.00 k/uL Final Monocytes % 01/11/2024 15.8 % Final Abs [place] 01/11/2024 1.55 (H) <0.87 k/uL Final Eosinophils % 01/11/2024 0.5 % Final Abs Eosin 01/11/2024 0.05 <0.46 k/uL Final Basophils % 01/11/2024 0.3 % Final Abs Baso 01/11/2024 0.03 <0.11 k/uL Final Immature Granulocytes % 01/11/2024 0.4 % Final Abs Immature Gran 01/11/2024 0.04 <0.10 k/uL Final Diff Type 01/11/2024 Auto Final Ventricular Rate 01/11/2024 75 BPM Final Atrial Rate 01/11/2024 75 BPM Final P-R Interval 01/11/2024 288 ms Final QRS Duration 01/11/2024 92 ms Final QT Interval 01/11/2024 448 ms Final QTC Calculation (Bazett) 01/11/2024 500 ms Final Calculated P [place] 01/11/2024 67 degrees Final Calculated R [place] 01/11/2024 8 degrees Final Calculated T [place] 01/11/2024 48 degrees Final SARS-CoV-2 (Agent of COVID-19) RNA 01/11/2024 Not detected See comment Final Influenza A RNA 01/11/2024 Not detected Not Detected Final Influenza B RNA 01/11/2024 Not detected Not Detected Final Respiratory syncytial virus (RSV) * 01/11/2024 Not detected Not Detected Final SAMI High Sensitivity 01/11/2024 27 (H) <12 ng/L Final D Dimer 01/11/2024 2,800 (H) <500 ng/mL FEU Final D Dimer Age-related Cutoff 01/11/2024 700 ng/mL FEU Final SAMI High Sensitivity 01/11/2024 22 (H) <12 ng/L Final Procalcitonin 01/11/2024 0.08 <0.09 ng/mL Final For a guided interpretation of test results, please visit the Change in Procalcitonin Calculator, [email or web address]. Glucose 01/12/2024 192 (H) 74 - 99 mg/dL Final The [place] Diabetes Association (ADA) provides guidance for cutoff values for fasting glucose and random glucose. The ADA defines fasting as no caloric intake for at least 8 hours. Fasting plasma glucose results between 100 to 125 mg/dL indicate increased risk for diabetes (prediabetes). Fasting plasma glucose results greater than or equal to 126 mg/dL meet the criteria for diagnosis of diabetes. In the absence of unequivocal hyperglycemia, results should be confirmed by repeat testing. In a patient with classic symptoms of hyperglycemia or hyperglycemic crisis, random plasma glucose results greater than or equal to 200 mg/dL meet the criteria for diagnosis of diabetes. Reference: Standards of Medical Care in Diabetes 2016, [place] [employer]. Diabetes Care. 2016.39(Suppl 1). BUN 01/12/2024 16 9 - 24 mg/dL Final Creatinine 01/12/2024 1.25 (H) 0.73 - 1.22 mg/dL Final Sodium 01/12/2024 125 (L) 136 - 144 mmol/L Final Potassium 01/12/2024 4.0 3.7 - 5.1 mmol/L Final Chloride 01/12/2024 90 (L) 98 - 107 mmol/L Final CO2 01/12/2024 22 22 - 30 mmol/L Final Anion Gap 01/12/2024 13 8 - 15 mmol/L Final Calcium, Total 01/12/2024 8.8 8.5 - 10.2 mg/dL Final Estimated Glomerular Filtration Ra* 01/12/2024 62 >=60 mL/min/1.73m Final Estimated Glomerular Filtration Rate (eGFR) is calculated using the 2020 CKD-EPI creatinine equation. This equation utilizes serum creatinine, sex, and age as parameters. The creatinine assay has traceable calibration to isotope dilution-mass spectrometry. Refer to KDIGO guidelines for clinical interpretation. In patients with unstable renal function, e.g. those with acute kidney injury, the eGFR may not accurately reflect actual GFR. WBC 01/12/2024 6.29 3.70 - 11.00 k/uL Final RBC 01/12/2024 5.05 4.20 - 6.00 m/uL Final Hemoglobin 01/12/2024 14.1 13.0 - 17.0 g/dL Final Hematocrit 01/12/2024 42.8 39.0 - 51.0 % Final MCV 01/12/2024 84.8 80.0 - 100.0 fL Final MCH 01/12/2024 27.9 26.0 - 34.0 pg Final MCHC 01/12/2024 32.9 30.5 - 36.0 g/dL Final RDW-CV 01/12/2024 12.4 11.5 - 15.0 % Final Platelet Count 01/12/2024 271 150 - 400 k/uL Final MPV 01/12/2024 8.9 (L) 9.0 - 12.7 fL Final Neutrophils % 01/12/2024 79.6 % Final Abs Neut 01/12/2024 5.01 1.45 - 7.50 k/uL Final Lymphocytes % 01/12/2024 13.0 % Final Abs Lymph 01/12/2024 0.82 (L) 1.00 - 4.00 k/uL Final Monocytes % 01/12/2024 6.4 % Final Abs [place] 01/12/2024 0.40 <0.87 k/uL Final Eosinophils % 01/12/2024 0.2 % Final Abs Eosin 01/12/2024 <0.03 <0.46 k/uL Final Basophils % 01/12/2024 0.2 % Final Abs Baso 01/12/2024 <0.03 <0.11 k/uL Final Immature Granulocytes % 01/12/2024 0.6 % Final Abs Immature Gran 01/12/2024 0.04 <0.10 k/uL Final Diff Type 01/12/2024 Auto Final Magnesium 01/12/2024 1.9 1.7 - 2.3 mg/dL Final Culture, Respiratory 01/13/2024 Few Normal respiratory yaya present Final Culture, Respiratory 01/13/2024 Rare Staphylococcus aureus (A) Final Insignificant colony count. No further workup. Gram Stain 01/13/2024 Few Yeast (A) Final Gram Stain 01/13/2024 Few Polymorphonuclear leukocytes (A) Final Legionella Urine Ag 01/12/2024 Negative Negative Final Presumptive negative for L. pneumophila serogroup 1 antigen in urine, suggesting no recent or current infection. Infection due to Legionella cannot be ruled out since other serogroups and species may cause disease, antigen may not be present in urine in early infection, and the level of antigen present in the urine may be below the detection limit of the test. Strep pneumo AG Result 01/12/2024 Negative for Streptococcus pneumoniae antigen. Negative Final Presumptive negative for pneumococcal pneumonia, suggesting no current or recent pneumococcal infection. Infection due to S.pneumoniae cannot be ruled out since the antigen present in the sample may be below the detection limit of the test. Culture, Blood 01/12/2024 No growth 5 days Final Culture, Blood 01/12/2024 No growth 5 days Final WBC 01/13/2024 13.58 (H) 3.70 - 11.00 k/uL Final RBC 01/13/2024 4.69 4.20 - 6.00 m/uL Final Hemoglobin 01/13/2024 13.2 13.0 - 17.0 g/dL Final Hematocrit 01/13/2024 40.3 39.0 - 51.0 % Final MCV 01/13/2024 85.9 80.0 - 100.0 fL Final MCH 01/13/2024 28.1 26.0 - 34.0 pg Final MCHC 01/13/2024 32.8 30.5 - 36.0 g/dL Final RDW-CV 01/13/2024 12.7 11.5 - 15.0 % Final Platelet Count 01/13/2024 310 150 - 400 k/uL Final MPV 01/13/2024 9.0 9.0 - 12.7 fL Final Protein, Total 01/13/2024 6.8 6.3 - 8.0 g/dL Final Albumin 01/13/2024 3.3 (L) 3.9 - 4.9 g/dL Final Calcium, Total 01/13/2024 8.9 8.5 - 10.2 mg/dL Final Bilirubin, Total 01/13/2024 0.4 0.2 - 1.3 mg/dL Final Alkaline Phosphatase 01/13/2024 71 38 - 113 U/L Final AST 01/13/2024 31 14 - 40 U/L Final ALT 01/13/2024 17 10 - 54 U/L Final Glucose 01/13/2024 156 (H) 74 - 99 mg/dL Final The [place] [employer] (ADA) provides guidance for cutoff values for fasting glucose and random glucose. The ADA defines fasting as no caloric intake for at least 8 hours. Fasting plasma glucose results between 100 to 125 mg/dL indicate increased risk for diabetes (prediabetes). Fasting plasma glucose results greater than or equal to 126 mg/dL meet the criteria for diagnosis of diabetes. In the absence of unequivocal hyperglycemia, results should be confirmed by repeat testing. In a patient with classic symptoms of hyperglycemia or hyperglycemic crisis, random plasma glucose results greater than or equal to 200 mg/dL meet the criteria for diagnosis of diabetes. Reference: Standards of Medical Care in Diabetes 2016, [place] [employer]. Diabetes Care. 2016.39(Suppl 1). BUN 01/13/2024 33 (H) 9 - 24 mg/dL Final Creatinine 01/13/2024 2.19 (H) 0.73 - 1.22 mg/dL Final Sodium 01/13/2024 125 (L) 136 - 144 mmol/L Final Potassium 01/13/2024 4.2 3.7 - 5.1 mmol/L Final Chloride 01/13/2024 89 (L) 98 - 107 mmol/L Final CO2 01/13/2024 22 22 - 30 mmol/L Final Anion Gap 01/13/2024 14 8 - 15 mmol/L Final Estimated Glomerular Filtration Ra* 01/13/2024 32 (L) >=60 mL/min/1.73m Final Estimated Glomerular Filtration Rate (eGFR) is calculated using the 2020 CKD-EPI creatinine equation. This equation utilizes serum creatinine, sex, and age as parameters. The creatinine assay has traceable calibration to isotope dilution-mass spectrometry. Refer to KDIGO guidelines for clinical interpretation. In patients with unstable renal function, e.g. those with acute kidney injury, the eGFR may not accurately reflect actual GFR. Magnesium 01/13/2024 1.9 1.7 - 2.3 mg/dL Final WBC 01/14/2024 10.27 3.70 - 11.00 k/uL Final RBC 01/14/2024 4.68 4.20 - 6.00 m/uL Final Hemoglobin 01/14/2024 13.1 13.0 - 17.0 g/dL Final Hematocrit 01/14/2024 40.1 39.0 - 51.0 % Final MCV 01/14/2024 85.7 80.0 - 100.0 fL Final MCH 01/14/2024 28.0 26.0 - 34.0 pg Final MCHC 01/14/2024 32.7 30.5 - 36.0 g/dL Final RDW-CV 01/14/2024 12.8 11.5 - 15.0 % Final Platelet Count 01/14/2024 285 150 - 400 k/uL Final MPV 01/14/2024 9.0 9.0 - 12.7 fL Final Protein, Total 01/14/2024 6.8 6.3 - 8.0 g/dL Final Albumin 01/14/2024 3.4 (L) 3.9 - 4.9 g/dL Final Calcium, Total 01/14/2024 9.1 8.5 - 10.2 mg/dL Final Bilirubin, Total 01/14/2024 0.4 0.2 - 1.3 mg/dL Final Alkaline Phosphatase 01/14/2024 67 38 - 113 U/L Final AST 01/14/2024 23 14 - 40 U/L Final ALT 01/14/2024 21 10 - 54 U/L Final Glucose 01/14/2024 209 (H) 74 - 99 mg/dL Final The [place] Diabetes [employer] (ADA) provides guidance for cutoff values for fasting glucose and random glucose. The ADA defines fasting as no caloric intake for at least 8 hours. Fasting plasma glucose results between 100 to 125 mg/dL indicate increased risk for diabetes (prediabetes). Fasting plasma glucose results greater than or equal to 126 mg/dL meet the criteria for diagnosis of diabetes. In the absence of unequivocal hyperglycemia, results should be confirmed by repeat testing. In a patient with classic symptoms of hyperglycemia or hyperglycemic crisis, random plasma glucose results greater than or equal to 200 mg/dL meet the criteria for diagnosis of diabetes. Reference: Standards of Medical Care in Diabetes 2016, [place] [employer]. Diabetes Care. 2016.39(Suppl 1). BUN 01/14/2024 31 (H) 9 - 24 mg/dL Final Creatinine 01/14/2024 1.41 (H) 0.73 - 1.22 mg/dL Final Sodium 01/14/2024 122 (L) 136 - 144 mmol/L Final Potassium 01/14/2024 4.4 3.7 - 5.1 mmol/L Final Chloride 01/14/2024 87 (L) 98 - 107 mmol/L Final CO2 01/14/2024 22 22 - 30 mmol/L Final Anion Gap 01/14/2024 13 8 - 15 mmol/L Final Estimated Glomerular Filtration Ra* 01/14/2024 54 (L) >=60 mL/min/1.73m Final Estimated Glomerular Filtration Rate (eGFR) is calculated using the 2020 CKD-EPI creatinine equation. This equation utilizes serum creatinine, sex, and age as parameters. The creatinine assay has traceable calibration to isotope dilution-mass spectrometry. Refer to KDIGO guidelines for clinical interpretation. In patients with unstable renal function, e.g. those with acute kidney injury, the eGFR may not accurately reflect actual GFR. Magnesium 01/14/2024 1.7 1.7 - 2.3 mg/dL Final Glucose 01/14/2024 218 (H) 74 - 99 mg/dL Final The [place] Diabetes [employer] (ADA) provides guidance for cutoff values for fasting glucose and random glucose. The ADA defines fasting as no caloric intake for at least 8 hours. Fasting plasma glucose results between 100 to 125 mg/dL indicate increased risk for diabetes (prediabetes). Fasting plasma glucose results greater than or equal to 126 mg/dL meet the criteria for diagnosis of diabetes. In the absence of unequivocal hyperglycemia, results should be confirmed by repeat testing. In a patient with classic symptoms of hyperglycemia or hyperglycemic crisis, random plasma glucose results greater than or equal to 200 mg/dL meet the criteria for diagnosis of diabetes. Reference: Standards of Medical Care in Diabetes 2016, [place] [employer]. Diabetes Care. 2016.39(Suppl 1). BUN 01/14/2024 28 (H) 9 - 24 mg/dL Final Creatinine 01/14/2024 1.32 (H) 0.73 - 1.22 mg/dL Final Sodium 01/14/2024 126 (L) 136 - 144 mmol/L Final Potassium 01/14/2024 4.5 3.7 - 5.1 mmol/L Final Chloride 01/14/2024 89 (L) 98 - 107 mmol/L Final CO2 01/14/2024 22 22 - 30 mmol/L Final Anion Gap 01/14/2024 15 8 - 15 mmol/L Final Calcium, Total 01/14/2024 9.4 8.5 - 10.2 mg/dL Final Estimated Glomerular Filtration Ra* 01/14/2024 58 (L) >=60 mL/min/1.73m Final Estimated Glomerular Filtration Rate (eGFR) is calculated using the 2020 CKD-EPI creatinine equation. This equation utilizes serum creatinine, sex, and age as parameters. The creatinine assay has traceable calibration to isotope dilution-mass spectrometry. Refer to KDIGO guidelines for clinical interpretation. In patients with unstable renal function, e.g. those with acute kidney injury, the eGFR may not accurately reflect actual GFR. WBC 01/15/2024 9.56 3.70 - 11.00 k/uL Final RBC 01/15/2024 4.78 4.20 - 6.00 m/uL Final Hemoglobin 01/15/2024 13.3 13.0 - 17.0 g/dL Final Hematocrit 01/15/2024 41.2 39.0 - 51.0 % Final MCV 01/15/2024 86.2 80.0 - 100.0 fL Final MCH 01/15/2024 27.8 26.0 - 34.0 pg Final MCHC 01/15/2024 32.3 30.5 - 36.0 g/dL Final RDW-CV 01/15/2024 12.9 11.5 - 15.0 % Final Platelet Count 01/15/2024 301 150 - 400 k/uL Final MPV 01/15/2024 8.7 (L) 9.0 - 12.7 fL Final Protein, Total 01/15/2024 6.8 6.3 - 8.0 g/dL Final Albumin 01/15/2024 3.5 (L) 3.9 - 4.9 g/dL Final Calcium, Total 01/15/2024 9.1 8.5 - 10.2 mg/dL Final Bilirubin, Total 01/15/2024 0.4 0.2 - 1.3 mg/dL Final Alkaline Phosphatase 01/15/2024 63 38 - 113 U/L Final AST 01/15/2024 19 14 - 40 U/L Final ALT 01/15/2024 21 10 - 54 U/L Final Glucose 01/15/2024 185 (H) 74 - 99 mg/dL Final The [place] Diabetes [employer] (ADA) provides guidance for cutoff values for fasting glucose and random glucose. The ADA defines fasting as no caloric intake for at least 8 hours. Fasting plasma glucose results between 100 to 125 mg/dL indicate increased risk for diabetes (prediabetes). Fasting plasma glucose results greater than or equal to 126 mg/dL meet the criteria for diagnosis of diabetes. In the absence of unequivocal hyperglycemia, results should be confirmed by repeat testing. In a patient with classic symptoms of hyperglycemia or hyperglycemic crisis, random plasma glucose results greater than or equal to 200 mg/dL meet the criteria for diagnosis of diabetes. Reference: Standards of Medical Care in Diabetes 2016, [place] [employer]. Diabetes Care. 2016.39(Suppl 1). BUN 01/15/2024 26 (H) 9 - 24 mg/dL Final Creatinine 01/15/2024 1.11 0.73 - 1.22 mg/dL Final Sodium 01/15/2024 126 (L) 136 - 144 mmol/L Final Potassium 01/15/2024 4.8 3.7 - 5.1 mmol/L Final Chloride 01/15/2024 90 (L) 98 - 107 mmol/L Final CO2 01/15/2024 25 22 - 30 mmol/L Final Anion Gap 01/15/2024 11 8 - 15 mmol/L Final Estimated Glomerular Filtration Ra* 01/15/2024 71 >=60 mL/min/1.73m Final Estimated Glomerular Filtration Rate (eGFR) is calculated using the 2020 CKD-EPI creatinine equation. This equation utilizes serum creatinine, sex, and age as parameters. The creatinine assay has traceable calibration to isotope dilution-mass spectrometry. Refer to KDIGO guidelines for clinical interpretation. In patients with unstable renal function, e.g. those with acute kidney injury, the eGFR may not accurately reflect actual GFR. Magnesium 01/15/2024 1.8 1.7 - 2.3 mg/dL Final ASSESSMENT/PLAN: 1. Acute respiratory failure with hypoxia (HCC) - ICD9: 518.81, ICD10: J96.01 (primary diagnosis) - Improved but he is still requiring continuous oxygen - Following with pulmonary medicine - Has testing next week 2. Chronic diastolic congestive heart failure (HCC) - ICD9: 428.32, 428.0, ICD10: I50.32 - + rales on exam bilaterally. Advised to take Lasix Saturday, Saturday, , and Saturday. Recheck BMP next week before CT scan. - Factors affecting control: diet adherence and lack of exercise - Encouraged daily weights - Call if 5 lbs gained in 3 days - NT PRO BNP 3. Anxiety and depression - ICD9: 300.00, 311, ICD10: F41.9, F32.A - Restart Lexapro 20 mg daily. Stop Hydroxyzine and continue Buspar 5 mg TID prn. - ESCITALOPRAM 20 MG TABLET 4. Dependence on supplemental oxygen - ICD9: V46.2, ICD10: Z99.81 - Following with pulmonary medicine next week with testing 5. Hyponatremia - ICD9: 276.1, ICD10: E87.1 - Recheck next week - BASIC METABOLIC PANEL New medication(s) prescribed today: Yes: Lexapro. Discussed new medication dosage, usage, goals of therapy, and side effects. Patient has been apprised of any potential drug interactions to be aware of. Patient expresses understanding. Counseling completed in adopting health behaviors such as avoiding excessive alcohol use, avoid tobacco use, improve nutrition, and engage in physical activities. Copy of written care plan, clinical summary, treatment plan, new medications, goals, and self management requirements were given to patient. Alma Gill APRN.CNP documented in this encounter [facility] 03-02-2024 Telephone encounter Note Pharmacy requesting refills as follows: Last Office Visit 02/27/24Mar today. Last Refill 02/05/24. Requested Prescriptions Pending Prescriptions Disp Refills busPIRone (BUSPAR) 5 mg tablet [Pharmacy Med Name: BUSPIRONE HCL 5 MG TABLET] 270 tablet 1 Sig: TAKE 1 TABLET BY MOUTH THREE TIMES A DAY NEEDED Please review and advise. Priya Pedersen MA [facility] 03-02-2024 Miscellaneous Notes Pharmacy requesting refills as follows: Last Office Visit 02/27/24Mar today. Last Refill 02/05/24. Requested Prescriptions Pending Prescriptions Disp Refills busPIRone (BUSPAR) 5 mg tablet [Pharmacy Med Name: BUSPIRONE HCL 5 MG TABLET] 270 tablet 1 Sig: TAKE 1 TABLET BY MOUTH THREE TIMES A DAY NEEDED Please review and advise. Priya Pedersen MA documented in this encounter [facility] 02-28-2024 Telephone encounter Note Form received from [facility] placed on signing chris Pedersen MA [facility] 02-28-2024 Miscellaneous Notes Form received from [facility] placed on signing chris Pedersen MA documented in this encounter [facility] 02-27-2024 History of Presen t illness Narrative Subjective: Patient presents to clinic c/o painful toenails. They state that the nails are especially painful with shoe gear and pressure. Patient states that nails 1-5 left foot are painful. No other pedal complaints at this time. Patient states no change in medications or medical history since last visit. Objective: Patient presents to clinic ambulating in [facility] Vasc: DP and PT pulses are nonpalpable left. CFT is less than 5 seconds left. Skin temperature is warm to cool proximal to distal left. There is no edema or varicosities noted. Neuro: Protective sensation is absent to the foot and toes when tested with the 5.07 SWM left foot. Derm: Nails 1-5 left are discolored-yellow, thick, crumbly, dystrophic and with subungal debris. Skin is of normal turgor, texture and hair growth is absent left. There are no hyperkeratosis, ulcerations, scars, verruca or other lesions noted. Ortho: right lower leg amputation Assessment: (B35.1) Onychomycosis (primary encounter diagnosis) (Z89.511) 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) pad Plan: Patient was seen and evaluated. Nails 1-5 left were debrided in length and thickness. Q7 modifier Patient is to RTC in 3-4 months. Francesco Tobias DPM Patient presents with: Left Foot - Established Patient, Follow Up, Skin Check, nail care Patient presents for 3 month follow up nail care and foot check. Patient had previous ulcer to toe. Right foot BKA TOMMY 11/21/23 documented in this encounter [facility] 02-27-2024 Instructions Francesco Tobias - 02/27/2024 2:37 PM EDT documented in this encounter [facility] 02-25-2024 Telephone encounter Note Patient requesting refills: Last office visit 09/03/2023. Last refill 12/23/2023 nov 03/02/2024 Requested Prescriptions Pending Prescriptions Disp Refills gabapentin (NEURONTIN) 300 mg capsule 150 capsule 2 Sig: TAKE 2 CAPSULES BY MOUTH EVERY MORNING AND 3 CAPSULES AT BEDTIME FOR 30 DAYS. Strength: 300 mg Please review and advise. Suzanne Almaguer MA [facility] 02-25-2024 Miscellaneous Notes Patient requesting refills: Last office visit 09/03/2023. Last refill 12/23/2023 03/02/2024 Requested Prescriptions Pending Prescriptions Disp Refills gabapentin (NEURONTIN) 300 mg capsule 150 capsule 2 Sig: TAKE 2 CAPSULES BY MOUTH EVERY MORNING AND 3 CAPSULES AT BEDTIME FOR 30 DAYS. Strength: 300 mg Please review and advise. Suzanne Almaguer MA documented in this encounter [facility] 02-21-2024 Telephone encounter Note Patient is informed Priya Pedersen MA [facility] 02-21-2024 Miscellaneous Notes Patient is informed Priya Pedersen MA Agree with plan. Royer KAYE from [facility] called and left a message stating that he wants to continue home visits with the patient. He just wants to know if PCP would agree that he can go out twice a week for additional three weeks, then once the following week. Please advise Priya Pedersen MA documented in this encounter [facility] 02-21-2024 Telephone encounter Note Agree with plan. [facility] 02-21-2024 Telephone encounter Note Royer KAYE from [facility] called and left a message stating that he wants to continue home visits with the patient. He just wants to know if PCP would agree that he can go out twice a week for additional three weeks, then once the following week. Please advise Priya Pedersen MA [facility] 02-18-2024 Telephone encounter Note Faxed Priya Pedersen MA [facility] 02-18-2024 Miscellaneous Notes Faxed Priya Pedersen MA A second from received from [facility] placed on signing chris Pedersen MA Form received from [facility] placed on signing chris Pedersen MA documented in this encounter [facility] 02-18-2024 Telephone encounter Note A second from received from [facility] placed on signing chris Pedersen MA [facility] 02-18-2024 Telephone encounter Note Form received from [facility] placed on signing chris Pedersen MA [facility] 02-18-2024 History of Presen t illness Narrative AG TRANSITIONAL CARE MANAGEMENT (TCM) FOLLOW-UP NOTE Patient identified by name and date of : YES Spoke to: spouse Diagnosis: COPD Summary: TCM RN called for TCM f/u (D/C 01/16/24). Pt is doing "a little bit better". He has to wear Home O2 "03/12". states that when pt saw Cards on 02/03/24, pt was told to stay on the Home O2. He is wearing Home O2 3L. Cards also placed pt on a 30oz FR. No swelling or water weight gain. Pt is taking his Lasix every other day - order as 40mg 1 tab 3x/wk. No SOB at rest. Per , he only gets out of breath when he moves "quite a bit" and exerts himself. No refills needed. No needs noted. She is aware of pt's PCP appointment on 03/02/24 at 3:20p. Health leads screening tool questions performed? Addressed 01/17/24 N/A Concerns: N/A Inspector Aide plan for next outreach: Will follow-up in about 2wks. Signature: Lilian Sethi RN February 18, 2024 documented in this encounter [facility] 02-11-2024 Telephone encounter Note Rx for Mucinex requested by . Sent in. [facility] 02-11-2024 Miscellaneous Notes Rx for Mucinex requested by . Sent in. documented in this encounter [facility] 02-05-2024 Telephone encounter Note Nurse is informed Priya Pedersen MA [facility] 02-05-2024 Miscellaneous Notes Nurse is informed Priya Pedersen MA Will start Buspar 5 mg three times a day as needed for anxiety. A nurse from [facility] called and left a message stating that the patient has been having increased anxiety and will get SOB when anxious. She was wondering if he could have an increase or change in his medication Priya Pedersen MA documented in this encounter [facility] 02-05-2024 Telephone encounter Note Will start Buspar 5 mg three times a day as needed for anxiety. [facility] 02-05-2024 Telephone encounter Note A nurse from [facility] called and left a message stating that the patient has been having increased anxiety and will get SOB when anxious. She was wondering if he could have an increase or change in his medication Priya Pedersen MA [facility] 02-05-2024 Telephone encounter Note Patient requesting refills as follows: Last office visit: 09/03/23 Last refill: 09/25/23 Requested Prescriptions Pending Prescriptions Disp Refills colestipol (COLESTID) 1 gram tablet 180 tablet 1 Sig: Take 1 tablet by mouth two times a day. Please review and advise. Christelle Modi [facility] 02-05-2024 Miscellaneous Notes Patient requesting refills as follows: Last office visit: 09/03/23 Last refill: 09/25/23 Requested Prescriptions Pending Prescriptions Disp Refills colestipol (COLESTID) 1 gram tablet 180 tablet 1 Sig: Take 1 tablet by mouth two times a day. Please review and advise. Christelle Modi documented in this encounter [facility] 02-04-2024 History of Presen t illness Narrative AG TRANSITIONAL CARE MANAGEMENT (TCM) FOLLOW-UP NOTE Provider Action/FYI: Patient identified by name and date of : YES Spoke to: patient Diagnosis: COPD Summary: Patient had recent appointment with cardiology and pulmonary. reports continued dyspnea with exertion and patient is wearing oxygen continuously. Reviewed COPD zones and encouraged patient to report any changes in symptoms. Both verbalized understanding, is now home and requests appointment scheduled after 02/25 as she will be able to drive then. Appointment scheduled 03/02. Health leads screening tool questions performed? N/A Primary Care first education/Where to go for Care Concerns: TCM, dyspnea with exertion Inspector Aide plan for next outreach: Will follow-up in 2 weeks Signature: Qi Zazueta RN February 04, 2024 documented in this encounter [facility] 02-03-2024 Instructions Beatrice Sarmiento MD - 02/03/2024 4:54 PM EDT Try to limit the amount of water you drink in a day to 30 oz, (1-1.5 liter) Repeat blood work next week We are changing the Lisinopril to 2.5 mg two times per day. Do not take if your blood pressure is less than 100 mmHg documented in this encounter [facility] 02-03-2024 History of Presen t illness Narrative Images from the original note were not included. [facility] SE[facility] [place] ([facility] [address] [facility] [id number] OUTPATIENT VISIT DATE 02/03/2024 PRIMARY CARE PHYSICIAN: Alma Gill [address] [place] [address] HISTORY OF PRESENT ILLNESS: Mr. Peterson is a 68 year old with a history of coronary artery disease and remote coronary bypass grafting, chronic diastolic congestive heart failure, hypertension, dyslipidemia, gastroesophageal reflux disease, peripheral arterial disease with history of right BKA who presents to the office for routine follow-up. He was admitted to [facility] at the end of December and early January with decompensated heart failure and hypoxic respiratory failure. Since hospital discharge, he has been doing slowly a little bit better. He still has significant shortness of breath on minimal exertion. He tells me if he is wearing his 3 L her oxygen his pulse oximetry will drop into the 70s with minimal exertion. Typically being in the mid 90s when he is resting. He has not noticed symptoms of lower extremity edema but does complain of orthopnea after laying down for more than 1 to 2 hours. He has not had chest pain or chest pressure. 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 DJD (degenerative joint disease) Essential hypertension Heart attack ([facility]) 1999 States his previous animal trainer told him he had a heart attack based on EKG (in [place]) Neuropathy Osteomyelitis of foot ([facility]) Peripheral vascular disease ([facility]) S/P CABG (coronary artery bypass graft) Umbilical hernia PAST SURGICAL HISTORY Procedure Laterality Date BACK SURGERY HX 2017 CABG (1) VEIN GRAFT & ARTERIAL GRAFT 2001 CABG x4 COLONOSCOPY 2007 FINGER AMPUTATION (SPECIFY DIGIT) HX HIP SURGERY HX 2000 1999, 2019 Replacement Right and left LEG AMPUTATION HX Right 2018 PAST SURGICAL HISTORY OF coccyx REMV CATARACT EXTRACAP,INSERT LENS Bilateral SOCIAL HISTORY Social History Tobacco Use Smoking status: Former Current packs/day: 0.00 Average packs/day: 2.0 packs/day for 40.0 years (80.0 ttl pk-yrs) Types: Cigarettes Start date: 05/13/1961 Quit date: 05/13/2001 Years since quittin.7 Smokeless tobacco: Former Types: Chew Vaping Use Vaping status: Never Used Substance Use Topics Alcohol use: Yes Alcohol/week: 10.0 standard drinks of alcohol Types: 10 Cans of beer per week Drug use: Never FAMILY HISTORY Problem Relation Age of Onset Ovarian cancer Mother other (afib) Mother COPD Mother Heart Father heart attack other (Chronic oxygen) Father other (bladder cancer) Maternal Aunt Cancer Maternal Aunt Cancer Maternal Uncle Heart Paternal Uncle Leukemia Paternal Uncle Colon Cancer No Family History ALLERGIES: ALLERGIES Allergen Reactions Animal Dander Other: See Comments Anything with fur Seasonal Allergies Other: See Comments Stuffy nose, headaches MEDICATIONS: thiamine (VITAMIN B1) 100 mg tablet Take 1 tablet by mouth once daily. ipratropium-albuterol (DUONEB) 0.5 mg-3 mg(2.5 mg base)/3 mL nebu Inhale 3 mL as instructed every 4 hours as needed for wheezing/shortness of breath. metoprolol succinate ER (TOPROL XL) 25 mg 24 hr tablet take 1 tablet by mouth every day isosorbide mononitrate ER (IMDUR) 30 mg 24 hr tablet take 1 tablet by mouth every day hydrOXYzine HCl (ATARAX) 25 mg tablet take 1 tablet by mouth four times a day ezetimibe (ZETIA) 10 mg tablet take 1 tablet by mouth every day clopidogrel (PLAVIX) 75 mg tablet take 1 tablet by mouth every day gabapentin (NEURONTIN) 300 mg capsule TAKE 2 CAPSULES BY MOUTH EVERY MORNING AND 3 CAPSULES AT BEDTIME FOR 30 DAYS. Strength: 300 mg fluticasone (FLONASE) 50 mcg/actuation nasal spray spray 1 spray into each nostril every day pantoprazole DR (PROTONIX) 40 mg tablet take 1 tablet by mouth every day traZODone (DESYREL) 100 mg tablet take 2 tablets by mouth daily at bedtime furosemide (LASIX) 40 mg tablet TAKE 1 TABLET BY MOUTH THREE TIMES A WEEK. escitalopram oxalate (LEXAPRO) 20 mg tablet take 1 tablet by mouth every day colestipol (COLESTID) 1 gram tablet TAKE 1 TABLET BY MOUTH TWICE A DAY hmdbsqiyznp-klwgykbwo-edpfwwzj (TRELEGY ELLIPTA) 200-62.5-25 mcg inhalation powder Inhale 1 Puff as instructed once daily. nitroglycerin sublingual (NITROSTAT) 0.4 mg SL tablet Dissolve 1 tablet under the tongue every 5 minutes as needed for chest pain. rosuvastatin (CRESTOR) 20 mg tablet Take 1 tablet by mouth daily at bedtime. albuterol sulfate 90 mcg/actuation aebs Inhale 1-2 Puffs as instructed every 4 hours as needed for wheezing/shortness of breath. sodium chloride 0.65 % nasal spray Use 1 Jaffrey in the nose as needed. Lactobacillus acidophilus (PROBIOTIC) 10 billion cell cap Take 1 capsule by mouth once daily. acetaminophen (TYLENOL EXTRA STRENGTH) 500 mg tablet Take 2 tablets by mouth every 8 hours as needed for pain. FOR PAIN. Zinc 50 mg tab Take 50 mg by mouth once daily. aspirin, enteric coated (ASPIRIN, ENTERIC COATED) 81 mg EC tablet Take 81 mg by mouth once daily. ascorbic acid, vitamin C, (VITAMIN C) 500 mg tablet Take 500 mg by mouth once daily. multivit-min/folic/vit K/lycop (ONE-A-DAY MEN'S MULTIVITAMIN ORAL) Take by mouth once daily. lisinopril 2.5 mg tablet Take 1 tablet by mouth two times a day. Hold if SBP less than 110 REVIEW OF SYSTEMS: Review of Systems Constitutional: Negative for chills, fever, malaise/fatigue and weight loss. HENT: Negative for hearing loss and sore throat. Eyes: Negative for blurred vision and double vision. Respiratory: Negative. Cardiovascular: Negative. Gastrointestinal: Positive for heartburn. Genitourinary: Negative for dysuria, frequency, hematuria and urgency. Musculoskeletal: Negative. Skin: Negative. Neurological: Negative for dizziness, seizures, loss of consciousness, weakness and headaches. Endo/Heme/Allergies: Negative for environmental allergies. Does not bruise/bleed easily. Psychiatric/Behavioral: Negative for depression. PHYSICAL EXAMINATION: BP 95/55 Pulse 64 Wt 259 lb (117.5kg) SpO2 91[with O2 3L continuous]% General: Pleasant gentleman sitting appears comfortable no apparent distress. He is alert and oriented x3 HEENT: Carotid upstrokes are brisk bilaterally. There are bilateral carotid bruits right greater than left. No JVD. Pulmonary: Lungs are clear no rales, wheezes, rhonchi Cardiovascular: Normal S1, S2 with regular rate and rhythm. No murmurs, rubs, or gallops Extremities: Right BKA noted. Left lower extremity no significant edema. Difficult to palpate distal pulses. CARDIOVASCULAR MEDICINE TESTING: ECG in the office 01/29/2023: Sinus bradycardia with first-degree AV block. No significant ST or T wave changes Cardiac Catheterization/PCI 08/08/2022: Angiography: LEFT MAIN: not imaged LEFT CIRCUMFLEX: Not imaged LEFT ANTERIOR DESCENDING: Not imaged. RIGHT CORONARY ARTERY: Tortuous calcified proximal RCA with multiple lesion in the proximal mid and distal vessle At this point, the procedure was terminated. All diagnostic wires and catheters were removed. PTCA: Complex Multiple inflation with NC balloon . Unable to cross with cutting balloon . Not good anatomy for orbital rotablator due to the angulation. Proximal RCA dissection with JASEN II flow Procedure aborted Will cont brilinta Regadenoson Myoview Stress 06/19/2022: CONCLUSIONS: 1. SPECT Perfusion Study: Abnormal. 2. There is no scintigraphic evidence for inducible ischemia. 3. There is a moderate (10-20%) fixed perfusion defect in the LCX territory. 4. Left ventricle is normal in size. The left ventricle systolic function is normal. 5. This is an intermediate risk scan. Gated Stress IR:3D Gated Rest IR:3D LVEF % 69 64 Echocardiogram 02/20/2023: - The left ventricle is normal in size. There is mild concentric left ventricular hypertrophy. Left ventricular systolic function is normal. EF = 57 5% (2D biplane) Grade I left ventricular diastolic dysfunction. - The right ventricle is normal in size. Right ventricular systolic function is low normal. Tricuspid annular displacement is 2.6 cm. - The left atrial cavity is mildly dilated. Val 35 ml/m . - The right atrial cavity is dilated. - There are no significant valvular abnormalities. - There is no pericardial effusion. - The patient has not had a prior CC echocardiographic exam for comparison. CT Chest 05/20/2023: Heart, pericardium, and thoracic vessels: Normal caliber thoracic aorta and main pulmonary artery. Moderate to severe atherosclerotic calcification. Borderline cardiomegaly. Mitral annular calcification. Unchanged myocardial fat deposition along the left ventricular free wall. No pericardial effusion or thickening. Status post CABG with severe ione coronary artery atherosclerotic calcifications are noted, although the study is not optimized for coronary assessment. Carotid Ultrasound 08/15/2023: IMPRESSION RIGHT SIDE Common carotid artery: Plaque visualized without evidence of hemodynamically significant stenosis. Internal carotid artery: 20-39% stenosis. External carotid artery: Elevated velocities and plaque noted. Vertebral artery: Patent and antegrade flow noted. Abnormal signal suggests pre-steal. Subclavian artery: 50-99% stenosis. LEFT SIDE Common carotid artery: Plaque visualized without evidence of hemodynamically significant stenosis. Internal carotid artery: 40-59% stenosis. External carotid artery: Elevated velocities and plaque noted. Vertebral artery: Patent and antegrade flow noted. I have personally reviewed the Electrocardiogram, Laboratory Testing, Echocardiogram, and Cardiac Catheterization/Percutaneous Coronary Intervention (PCI). IMPRESSION: Mr. ePterson is a 68 year old gentleman with history of remote coronary bypass grafting who did undergone catheterization in July 2022. He was found to have a patent CUEVAS-LAD, SVG-OM, SVG-diagonal. He had an occluded SVG to the RCA. He was subsequently referred for percutaneous coronary intervention of the right coronary artery. The latter was attempted July 2022. He had a resulting dissection of the proximal right coronary artery due to severely calcified diseased vessel. No equipment could be passed past the proximal vessel. The procedure was aborted and patient was treated with medical therapy. 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 He presents the office for routine follow-up. PLAN AND RECOMMENDATIONS: 1. 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) - ICD9: 414.01, 413.9, ICD10: I25.118 (primary diagnosis) Difficult to evaluate for symptoms given his altered overall medical history. Given this current status would not recommend ischemic evaluation at this time. He has been maintained on long-term Plavix therapy - BASIC METABOLIC PANEL 2. Chronic diastolic congestive heart failure (HCC) - ICD9: 428.32, 428.0, ICD10: I50.32 No overt evidence of iron overload on examination. He is currently taking Lasix 40 mg 3 times a week. I have recommended repeat BNP. May consider up titration of his Lasix. Although, he has had persistent hyponatremia. Recommended fluid restriction to less than 1.5 L/day. I have asked him to soda and beer from his diet. - NT PRO BNP - BASIC METABOLIC PANEL 3. Essential hypertension - ICD9: 401.9, ICD10: I10 Decrease lisinopril to 2.5 mg twice daily with holding parameters - LISINOPRIL 2.5 MG TABLET 4. Mixed hyperlipidemia - ICD9: 272.2, ICD10: E78.2 Maintained on Crestor 20 mg daily and Zetia 10 mg daily. Fasting blood work from October 2023 was reviewed. LDL cholesterol 43 mg/dL 5. Peripheral vascular disease (HCC) - ICD9: 443.9, ICD10: I73.9 6. Bilateral carotid artery stenosis - ICD9: 433.10, 433.30, ICD10: I65.23 Beatrice Sarmiento MD documented in this encounter [facility] 01-29-2024 History of Presen t illness Narrative Patient: Mars Peterson PCP: Alma Gill APRN.TAG MACHINE OPERATOR CC: hospital follow up HPI: Mars Peterson 68 year old male former 80 pack year smoker, quitting 2001 with PMH significant for obesity, CAD s/p CABG, CHF, HTN, PAD, s/p right BKA, neuropathy, asthma with mild COPD, ILD and lung nodule. Current maintenance therapy with Trelegy and as needed Albuterol. Patient was admitted to [facility] from 01/10 - 01/16/24 secondary to acute hypoxemic respiratory failure due to acute exacerbation of COPD. Chest x-ray showed no acute abnormality but moderate degree of chronic interstitial fibrotic changes. CT of the chest was negative for pulmonary embolism but showed interval development of bilateral groundglass infiltrates most pronounced in the upper lobes felt to represent a superimposed infectious/inflammatory process. Reactive mediastinal and hilar lymphadenopathy present. Patient was started on IV antibiotics, received a dose of furosemide and Solu-Medrol. Today, patient reports daily cough productive of yellow sputum. No hemoptysis. Exertional wheezing. Exertional dyspnea with minimal effort. No fevers, chills, or night sweats. No unintended weight loss. No lower extremity edema. No GERD/heartburn. Currently wearing 2L supplemental oxygen continuously. Checks pulse ox frequently and is able to maintain in the 90s when sitting at rest. He states as soon as he moves his oxygen saturations drop. 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 DJD (degenerative joint disease) Essential hypertension Heart attack ([facility]) 1999 States his previous animal trainer told him he had a heart attack based on EKG (in [place]) Neuropathy Osteomyelitis of foot ([facility]) Peripheral vascular disease ([facility]) S/P CABG (coronary artery bypass graft) Umbilical hernia Allergies: Animal Dander Other: See Comments Comment:Anything with fur Seasonal Allergies Other: See Comments Comment:Stuffy nose, headaches lisinopril (ZESTRIL) 10 mg tablet Take 1 tablet by mouth once daily. Hold if SBP less than 110 thiamine (VITAMIN B1) 100 mg tablet Take 1 tablet by mouth once daily. ipratropium-albuterol (DUONEB) 0.5 mg-3 mg(2.5 mg base)/3 mL nebu Inhale 3 mL as instructed every 4 hours as needed for wheezing/shortness of breath. metoprolol succinate ER (TOPROL XL) 25 mg 24 hr tablet take 1 tablet by mouth every day isosorbide mononitrate ER (IMDUR) 30 mg 24 hr tablet take 1 tablet by mouth every day hydrOXYzine HCl (ATARAX) 25 mg tablet take 1 tablet by mouth four times a day ezetimibe (ZETIA) 10 mg tablet take 1 tablet by mouth every day clopidogrel (PLAVIX) 75 mg tablet take 1 tablet by mouth every day gabapentin (NEURONTIN) 300 mg capsule TAKE 2 CAPSULES BY MOUTH EVERY MORNING AND 3 CAPSULES AT BEDTIME FOR 30 DAYS. Strength: 300 mg fluticasone (FLONASE) 50 mcg/actuation nasal spray spray 1 spray into each nostril every day pantoprazole DR (PROTONIX) 40 mg tablet take 1 tablet by mouth every day traZODone (DESYREL) 100 mg tablet take 2 tablets by mouth daily at bedtime furosemide (LASIX) 40 mg tablet TAKE 1 TABLET BY MOUTH THREE TIMES A WEEK. escitalopram oxalate (LEXAPRO) 20 mg tablet take 1 tablet by mouth every day colestipol (COLESTID) 1 gram tablet TAKE 1 TABLET BY MOUTH TWICE A DAY duphnamdbye-nvujqrpks-pchrxxbs (TRELEGY ELLIPTA) 200-62.5-25 mcg inhalation powder Inhale 1 Puff as instructed once daily. nitroglycerin sublingual (NITROSTAT) 0.4 mg SL tablet Dissolve 1 tablet under the tongue every 5 minutes as needed for chest pain. rosuvastatin (CRESTOR) 20 mg tablet Take 1 tablet by mouth daily at bedtime. psyllium husk (METAMUCIL) 0.4 gram cap Take by mouth. albuterol sulfate 90 mcg/actuation aebs Inhale 1-2 Puffs as instructed every 4 hours as needed for wheezing/shortness of breath. sodium chloride 0.65 % nasal spray Use 1 Jaffrey in the nose as needed. Lactobacillus acidophilus (PROBIOTIC) 10 billion cell cap Take 1 capsule by mouth once daily. acetaminophen (TYLENOL EXTRA STRENGTH) 500 mg tablet Take 2 tablets by mouth every 8 hours as needed for pain. FOR PAIN. Zinc 50 mg tab Take 50 mg by mouth once daily. aspirin, enteric coated (ASPIRIN, ENTERIC COATED) 81 mg EC tablet Take 81 mg by mouth once daily. ascorbic acid, vitamin C, (VITAMIN C) 500 mg tablet Take 500 mg by mouth once daily. multivit-min/folic/vit K/lycop (ONE-A-DAY MEN'S MULTIVITAMIN ORAL) Take by mouth once daily. Social History Tobacco Use Smoking status: Former Current packs/day: 0.00 Average packs/day: 2.0 packs/day for 40.0 years (80.0 ttl pk-yrs) Types: Cigarettes Start date: 05/13/1961 Quit date: 05/13/2001 Years since quittin.7 Smokeless tobacco: Former Types: Chew Vaping Use Vaping status: Never Used Substance Use Topics Alcohol use: Yes Comment: Occasional Drug use: Never Family History Problem Relation Age of Onset Ovarian cancer Mother other (afib) Mother COPD Mother Heart Father heart attack other (Chronic oxygen) Father other (bladder cancer) Maternal Aunt Cancer Maternal Aunt Cancer Maternal Uncle Heart Paternal Uncle Leukemia Paternal Uncle Colon Cancer No Family History PAST SURGICAL HISTORY Procedure Laterality Date BACK SURGERY HX 2017 CABG (1) VEIN GRAFT & ARTERIAL GRAFT 2002 CABG x4 COLONOSCOPY 2007 FINGER AMPUTATION (SPECIFY DIGIT) HX HIP SURGERY HX 2000 1999, 2019 Replacement Right and left LEG AMPUTATION HX Right 2018 PAST SURGICAL HISTORY OF coccyx REMV CATARACT EXTRACAP,INSERT LENS Bilateral I reviewed the past medical history, family history, social history and surgical history with changes noted above and updated in EMR. IMMUNIZATIONS Immunization History Administered Date(s) Administered COVID-19 original vaccine, age 12+ yr, monovalent ([employer] - GUZMAN TOP) 09/09/2021 COVID-19 original vaccine, age 12+ yr, monovalent ([employer] - PURPLE TOP) 07/27/2020 08/18/2020 02/24/2021 COVID-19 original vaccine, booster dose, monovalent (MODERNA) 08/29/2023 COVID-19 vaccine, age 12+ yr (PFIZER-[employer]IONTECH) 02/14/2023 COVID-19 vaccine, age 12+ yr, bivalent (PFIZER-BIONTECH) 03/12/2022 02/14/2023 influenza (HD-IIV3) vaccine, age 65+ yr, high dose, trivalent, PF (FLUZONE HIGH-DOSE) 03/14/2020 influenza (HD-IIV4) vaccine, age 65+ yr, high dose, quadrivalent, PF (FLUZONE HIGH-DOSE) 01/17/2021 02/01/2022 02/14/2023 influenza (aIIV4) vaccine, age 65+ yr, quadrivalent, PF (FLUAD QUAD) 02/14/2023 pneumococcal conjugate (PCV20) vaccine, 20 valent (PREVNAR 20) 11/08/2022 pneumococcal polysaccharide (PPV23) vaccine, 23 valent (PNEUMOVAX 23) 05/23/2021 respiratory syncytial virus (RSV) vaccine, adjuvanted (AREXVY) 08/29/2023 tetanus diphtheria pertussis (Tdap) vaccine, age 7+ yr (ADACEL, BOOSTRIX) 05/22/2020 ROS: All other systems reviewed as negative except for what is noted in HPI and review of systems. PHYSICAL EXAMINATION: BP 104/58 (BP Site: Right Arm, BP Position: Sitting, BP Cuff Size: Large Adult) Pulse 72 Resp 22 SpO2 91% O2: 2L Gen: No acute distress. Cooperative with examination. Sitting in wheelchair. HEENT: Normocephalic. Sclera, conjunctiva clear. No thrush. Resp: No stridor, accessory respiratory muscle use, supra-sternal or intercostal retractions. Crackles upper lobes, right > left. No wheezes or rhonchi. CV: Regular rythm. Heart tones normal. Radial pulses normal. Ext: Warm and well perfused. No clubbing, cyanosis, edema. Artificial limb right leg. Skin: No rash, ecchymoses. Neuro: Mental status normal. Affect normal. No tremor. DATA: Laboratory and Imaging: Last Spirometry SPIROMETRY WITH DILATOR IF OBSTRUCTED Collected: 11/20/2022 2:44 PM (Final result) Narrative: [facility] [address] [place] [address] Test Date: 2022-11-20 Pat Name: MARS PETERSON Department: Room: Gender: Male Air Quality Manager: : 1955 Requested By: Order Number: [id number] Reading MD: Francisco Patel MD Interpretive Statements 2 puffs Albuterol (180 mcg) delivered by MDI via holding chamber. HR pre = 57/min, HR post = 57/min. ATS/ERS acceptability and repeatability standards for spirometry met. IMPRESSION: Spirometry shows no obstruction.The reduced FVC suggests restriction. Recommend lung volumes if clinically indicated. The increase in FEF 25-75 post-bronchodilator reflects an improvement in the small airway obstruction. Electronically Signed On 11-20-2022 17:28:26 EDT by Francisco Patel MD ID: [id number] Name: MARS PETERSON Race: White Ht: 72.00 in Wt: 274.00 lbs Age: 67 Gender: Male : 1955 Dx: Shortness of breath Smoking Hx: Non-smoker Doctor: FRANCISCO PATEL Test Date: 11/20/2022 Site: Tech: [place], [facility] PRE-BRONCH POST-BRONCH Pre LLN Pred ULN %Pred Post %Pred %Chg SPIROMETRY FVC (L) 3.29 3.27 4.40 5.54 74 3.32 75 0 FEV1 (L) 2.09 2.42 3.30 4.14 63 2.20 66 3 FEV1/FVC 0.64 0.63 0.76 0.87 83 0.66 86 4 PEF L/s (L/sec) 5.57 6.42 8.87 11.32 62 6.22 70 11 FEF50 (L/sec) 1.33 2.30 4.43 6.55 29 1.66 37 25 FIF50 (L/sec) 2.44 1.45 -40 FEF50/FIF50 0.54 90-100 1.14 109 FIVC (L) 3.01 2.98 0 MQH62-23 (L/sec) 0.89 1.14 2.60 4.65 34 1.11 42 23 Time (sec) 10.14 9.28 -8 FET PEF (sec) 0.09 0.09 2 AMY (L) 0.09 0.11 24 Vol Extrap % (%) 3 3 22 Comments: 2 puffs Albuterol (180 mcg) delivered by MDI via holding chamber. HR pre = 57/min, HR post = 57/min. ATS/ERS acceptability and repeatability standards for spirometry met. CT Chest other findings: Last CT Chest - Impression Only CT CHEST W IVCON PE Exam End: 01/11/2024 7:20 PM (Final result) Impression: IMPRESSION: 1. No CT evidence of pulmonary embolism. 2. Interval development of bilateral groundglass infiltrates, most pronounced in the upper lobes felt to represent a superimposed infectious/inflammatory process. Reactive mediastinal and hilar lymphadenopathy is present. ... Last XR Chest - Impression Only XR CHEST 1V FRONTAL Exam End: 01/11/2024 4:14 PM (Final result) Impression: IMPRESSION: No acute radiographic abnormality. Moderate degree of chronic interstitial fibrotic changes ... ASSESSMENT/PLAN: 1. Interstitial pulmonary disease (HCC) - ICD9: 515, ICD10: J84.9 (primary diagnosis) Recently admitted for AECOPD and acute hypoxemic respiratory failure. CT chest demonstrated development of bilateral groundglass infiltrates, most prominent in upper lobes. Treated with IV antibiotics and steroids. Will obtain CT in 6-8 weeks to check for improvement/resolution. - CT CHEST WO IVCON - OXIMETRY WITH AMBULATION 2. COPD, mild (HCC) - ICD9: 496, ICD10: J44.9 Continue maintenance therapy with Trelegy and as needed Albuterol. 3. Chronic hypoxemic respiratory failure (HCC) - ICD9: 518.83, 799.02, ICD10: J96.11 Patient is compliant and benefits from supplemental oxygen. Encouraged patient to increase supplemental oxygen with exertion to maintain greater than 90% SpO2. Will obtain oximetry with ambulation at next OV. 4. Lung nodule - ICD9: 793.11, ICD10: R91.1 Stable. Continue to monitor. Portions of this documentation were copied and pasted from previous office visit notes in order to provide a cohesive continuity of the history. The note has been reviewed and edited and updated as necessary. Lilian Rodríguez PA-C documented in this encounter [facility] 01-27-2024 Telephone encounter Note It's most likely from the Lovenox shots that he received while he was in the hospital. We can just monitor them at this time. [facility] 01-27-2024 Miscellaneous Notes It's most likely from the Lovenox shots that he received while he was in the hospital. We can just monitor them at this time. Lea RINCON from [facility] called and left a message stating that the patient was complaining of irritation on his abdomen. When he lifted his shirt she said there was bruises on both sides. The right seems to be healing. He told her he isn't sure how he got them but we getting injections at the hospital. She states that there is no redness, no warmth, and no firmness Priya Pedersen MA documented in this encounter [facility] 01-27-2024 Telephone encounter Note Lea RINCON from [facility] called and left a message stating that the patient was complaining of irritation on his abdomen. When he lifted his shirt she said there was bruises on both sides. The right seems to be healing. He told her he isn't sure how he got them but we getting injections at the hospital. She states that there is no redness, no warmth, and no firmness Priya Pedersen MA [facility] 01-24-2024 Telephone encounter Note Left a message informing Royer Pedersen MA [facility] 01-24-2024 Miscellaneous Notes Left a message informing Royer Pedersen MA Verbal order for PT given. Royer KAYE from [facility] called he needs verbals to start patient's PT 2 times a week for 4 weeks and then 1 time a week for 4 weeks Priya Pedersen MA documented in this encounter [facility] 01-24-2024 Telephone encounter Note Verbal order for PT given. [facility] 01-24-2024 Telephone encounter Note Royer PT from [facility] called he needs verbals to start patient's PT 2 times a week for 4 weeks and then 1 time a week for 4 weeks Priya Pedersen MA [facility] 01-23-2024 Telephone encounter Note Lea RINCON from [facility] called to let Alma know when she saw him today he had a deep tissue injury on the bottom of his left heel and left big toe pad. He states that its probably from his hospital bed because his foot was pressing against it. Lea states that it does look like it is healing and she applied skin prep and educated the patient. She would like verbal orders to continue skin prep once a day. Priya Pedersen MA [facility] 01-23-2024 Miscellaneous Notes Lea RINCON from [facility] called to let Alma know when she saw him today he had a deep tissue injury on the bottom of his left heel and left big toe pad. He states that its probably from his hospital bed because his foot was pressing against it. Lea states that it does look like it is healing and she applied skin prep and educated the patient. She would like verbal orders to continue skin prep once a day. Priya Pedersen MA documented in this encounter [facility] 01-21-2024 History of Presen t illness Narrative AG TRANSITIONAL CARE MANAGEMENT (TCM) FOLLOW-UP NOTE Provider Action/FYI: Patient identified by name and date of : YES Spoke to: patient Diagnosis: COPD Summary: Patient reports that he is doing well. Patient wearing oxygen 2-3 liters with pulse ox 91-92%. Patient notes continued cough with thick white sputum production noted. Reviewed coughing/ deep breathing, COPD zones and encouraged patient to report any changes in symptoms. Patient verbalized understanding. Patient reports that his did well, surgery was successful. Patient was able to speak with her this am. Patient has friends and neighbors assisting with care. Patient is monitoring blood pressure daily and is aware of hold parameters for lisinopril. Patient reports taking his medications as directed. Health leads screening tool questions performed? N/A Primary Care first education/Where to go for Care Concerns: TCM appointment Inspector Aide plan for next outreach: Will follow-up in 1 week Signature: Qi Zazueta RN January 21, 2024 documented in this encounter [facility] 01-20-2024 Telephone encounter Note Marcelo singh with verbal ok. Suzanne Almaguer MA [facility] 01-20-2024 Miscellaneous Notes Marcelo singh with verbal ok. Suzanne Almaguer MA Yes, I will follow his [facility] HOSPITAL. Beau from formerly [facility] is wondering if you will follow patient for assisted PT , OT and home health for bathing. Please advise. Suzanne Almaguer MA. Beau [phone] documented in this encounter [facility] 01-20-2024 Telephone encounter Note Yes, I will follow his [facility]. [facility] 01-20-2024 Telephone encounter Note Beau from formerly [facility] is wondering if you will follow patient for assisted PT , OT and home health for bathing. Please advise. Suzanne Almaguer MA. Beau [phone] [facility] 01-17-2024 History of Presen t illness Narrative TRANSITIONAL CARE MANAGEMENT (TCM) COMMUNITY MONITORING PROGRAM - [facility] Provider Action/FYI: Declines scheduling TCM as is scheduled for open heart surgery 01/19 Patient wearing oxygen 2 liters nasal cannula, will increase to 3 liters if pulse ox less than 90% Patient to monitor blood pressure daily, encouraged to keep log and bring to appointment. [facility] home care to begin services. Qi Zazueta RN SUMMARY: Pt discharged from [facility] on 01/16/24. Admitted for: Respiratory Failure Patient seen Inpatient SANTANA Visit? No. Patient seen ICARE Program? No. Contact made with patient: Yes General: Spoke with she reports that patient is doing ok. Patient has oxygen in home, wearing 2 liters. / patient monitoring pulse ox if less than 90% oxygen increased to 3 liters. Reviewed coughing/ deep breathing, use of inhalers/ nebulizer, COPD zones and encouraged to report any changes in symptoms. verbalized understanding. declines scheduling TCM appointment as she is to have open heart surgery 01/19. [facility] to begin home care services. Patient to monitor blood pressure daily, encouraged to keep a log and bring to appointment. verbalized understanding. Medications: Reviewed Follow up appointments: TCM declined, Cardiology 02/02 Me my name is Qi Zazueta RN and I am calling from the [facility] on behalf of your PCP, Alma Gill APRN.TAG MACHINE OPERATOR I understand you were recently in the hospital so I am calling to check in with you to ensure you are feeling well now that you re home. Do you mind if I ask you a few questions related to your hospital stay and well-being Yes Contact with patient post discharge, spoke to spouse. Patient identified by name and . Do you feel your health is BETTER, WORSE, or the SAME since leaving the hospital? Better ACTION TAKEN: Patient indicated symptoms are better or same, no action required. Continue outreach. COPD: Does patient have a Pulmonary Appointment? No - declines scheduling appointments at this time MEDICATIONS: Many patients have questions or concerns about their medications once they are home. Do you have any questions about taking your medications or which medication you should be on? No Do you need any medication refills at this time, including any of the medications you might take only when needed? No ACTION TAKEN: No action required For RNs or Pharmacy completing outreach ONLY, was a medication review completed? Yes Current/Discharged Medications reviewed: Yes Medication List Medication Directions Comments Action/Plan acetaminophen (TYLENOL EXTRA STRENGTH) 500 mg tablet Take 2 tablets by mouth every 8 hours as needed for pain. FOR PAIN. albuterol sulfate 90 mcg/actuation aebs Inhale 1-2 Puffs as instructed every 4 hours as needed for wheezing/shortness of breath. ascorbic acid, vitamin C, (VITAMIN C) 500 mg tablet Take 500 mg by mouth once daily. aspirin, enteric coated (ASPIRIN, ENTERIC COATED) 81 mg EC tablet Take 81 mg by mouth once daily. clopidogrel (PLAVIX) 75 mg tablet take 1 tablet by mouth every day colestipol (COLESTID) 1 gram tablet TAKE 1 TABLET BY MOUTH TWICE A DAY Discontinued: 01/16/2024 1:21 PM escitalopram oxalate (LEXAPRO) 20 mg tablet take 1 tablet by mouth every day ezetimibe (ZETIA) 10 mg tablet take 1 tablet by mouth every day fluticasone (FLONASE) 50 mcg/actuation nasal spray spray 1 spray into each nostril every day xdjnwcymeod-qaqweuupn-bkdrypbb (TRELEGY ELLIPTA) 200-62.5-25 mcg inhalation powder Inhale 1 Puff as instructed once daily. furosemide (LASIX) 40 mg tablet TAKE 1 TABLET BY MOUTH THREE TIMES A WEEK. gabapentin (NEURONTIN) 300 mg capsule TAKE 2 CAPSULES BY MOUTH EVERY MORNING AND 3 CAPSULES AT BEDTIME FOR 30 DAYS. Strength: 300 mg guaiFENesin (MUCINEX) 600 mg 12 hr tablet Take 1 tablet by mouth every 12 hours for 10 days. hydrOXYzine HCl (ATARAX) 25 mg tablet take 1 tablet by mouth four times a day Discontinued: 01/16/2024 2:22 PM ipratropium-albuterol (DUONEB) 0.5 mg-3 mg(2.5 mg base)/3 mL nebu Inhale 3 mL as instructed every 4 hours as needed for wheezing/shortness of breath. isosorbide mononitrate ER (IMDUR) 30 mg 24 hr tablet take 1 tablet by mouth every day Lactobacillus acidophilus (PROBIOTIC) 10 billion cell cap Take 1 capsule by mouth once daily. Discontinued: 01/16/2024 1:21 PM lisinopril (ZESTRIL) 10 mg tablet Take 1 tablet by mouth once daily. Hold if SBP less than 110 metoprolol succinate ER (TOPROL XL) 25 mg 24 hr tablet take 1 tablet by mouth every day multivit-min/folic/vit K/lycop (ONE-A-DAY MEN'S MULTIVITAMIN ORAL) Take by mouth once daily. nitroglycerin sublingual (NITROSTAT) 0.4 mg SL tablet Dissolve 1 tablet under the tongue every 5 minutes as needed for chest pain. pantoprazole DR (PROTONIX) 40 mg tablet take 1 tablet by mouth every day predniSONE (DELTASONE) 20 mg tablet Take 2 tablets by mouth once daily for 3 doses. psyllium husk (METAMUCIL) 0.4 gram cap Take by mouth. rosuvastatin (CRESTOR) 20 mg tablet Take 1 tablet by mouth daily at bedtime. sodium chloride 0.65 % nasal spray Use 1 Jaffrey in the nose as needed. thiamine (VITAMIN B1) 100 mg tablet Take 1 tablet by mouth once daily. traZODone (DESYREL) 100 mg tablet take 2 tablets by mouth daily at bedtime Zinc 50 mg tab Take 50 mg by mouth once daily. SOCIAL: We would like to make sure you have what you need so that your basics needs are met - including your personal safety. HEALTH LEADS SCREENING TOOL QUESTIONS: Do you often feel you lack companionship? No Do you ever need help reading or understanding hospital materials? No In the last 12 months, have you changed how you take medications to save money? No In the past 12 months, has lack of transportation kept you from medical appointments, work or getting things you need like food, or supplies? No In the last 12 months, did you ever eat less than you felt you should because there wasn't enough money for food? No During the winter, do you anticipate having a problem paying your heating bill? No In the next 2 months, are you worried you might not have stable housing? No Would you like to speak with a social work receiving team member to help give you support for any of these needs? No It can be normal to feel anxious or down during a time like this. Would you like to talk to a mental health professional about how you have been feeling? No ACTION TAKEN: No action taken DISCHARGE INTRUCTIONS: Your discharge instructions / After Visit Summary (AVS) are important in guiding you through the recovery process. Do you have any questions related to your discharge instructions? No Do you have all the necessary equipment and supplies at home? Yes ACTION TAKEN: No action required WRAP AROUND SERVICES: Primary Care first education/Where to go for Care Patient educated on importance of primary care provider follow up visit as well as specialty provider follow up visits as indicated. Inform the patient that if they have any questions or concerns prior to that appointment, to call their Primary Care Provider 's office right away. Primary care provider first education provided. I would like to help you schedule a hospital follow-up virtual or telephone visit with your PCP. ACTION TAKEN: TCM Primary Care Provider Visit Scheduled: No - declined at this time Your doctor would like us to remind you of the recommendations regarding the coronavirus (Covid19) outbreak: Avoid public places as much as possible. Avoid close contact (within 6 feet) with others you don't live with, especially if they are sick. Stay home if you are sick. Wash your hands regularly for at least 20 seconds with soap and water. Wear a cloth mask in public places to help reduce community spread. Do not go to your Doctor's office unless instructed to do so. For any non-emergency symptoms, call your Doctor's office to get instructions on how to manage (we might recommend a telephone or virtual visit). For emergency symptoms, proceed to Emergency Department as usual but inform them of cough and fever symptoms OZZIE if present (or call on the way if possible). Qi Zazueta, RN documented in this encounter [facility] 01-14-2024 Telephone encounter Note Yes, I will follow his [facility]. [facility] 01-14-2024 Miscellaneous Notes Yes, I will follow his [facility]. [facility] wants to know if alma gill will follow Priya Pedersen MA documented in this encounter [facility] 01-14-2024 Telephone encounter Note [facility] wants to know if alma gill will follow Priya Pedersen MA [facility] 01-03-2024 Telephone encounter Note pharm requesting refills: Last office visit 09/03/2023. Last refill 08/15/2023 nov none Requested Prescriptions Pending Prescriptions Disp Refills hydrOXYzine HCl (ATARAX) 25 mg tablet [Pharmacy Med Name: HYDROXYZINE HCL 25 MG TABLET] 360 tablet 1 Sig: take 1 tablet by mouth four times a day Please review and advise. Suzanne Almaguer MA [facility] 01-03-2024 Miscellaneous Notes pharm requesting refills: Last office visit 09/03/2023. Last refill 08/15/2023 nov none Requested Prescriptions Pending Prescriptions Disp Refills hydrOXYzine HCl (ATARAX) 25 mg tablet [Pharmacy Med Name: HYDROXYZINE HCL 25 MG TABLET] 360 tablet 1 Sig: take 1 tablet by mouth four times a day Please review and advise. Suzanne Almaguer MA documented in this encounter [facility] 01-03-2024 Telephone encounter Note pharm requesting refills: Last office visit 09/03/2023. Last refill 08/20/2023 except metoprolol last filled 08/08/2023 nov none Requested Prescriptions Pending Prescriptions Disp Refills metoprolol succinate ER (TOPROL XL) 25 mg 24 hr tablet [Pharmacy Med Name: METOPROLOL SUCC ER 25 MG TAB] 90 tablet 1 Sig: take 1 tablet by mouth every day isosorbide mononitrate ER (IMDUR) 30 mg 24 hr tablet [Pharmacy Med Name: ISOSORBIDE MONONIT ER 30 MG TB] 90 tablet 1 Sig: take 1 tablet by mouth every day clopidogrel (PLAVIX) 75 mg tablet [Pharmacy Med Name: CLOPIDOGREL 75 MG TABLET] 90 tablet 1 Sig: take 1 tablet by mouth every day Please review and advise. Suzanne Almaguer MA [facility] 01-03-2024 Miscellaneous Notes pharm requesting refills: Last office visit 09/03/2023. Last refill 08/20/2023 except metoprolol last filled 08/08/2023 nov none Requested Prescriptions Pending Prescriptions Disp Refills metoprolol succinate ER (TOPROL XL) 25 mg 24 hr tablet [Pharmacy Med Name: METOPROLOL SUCC ER 25 MG TAB] 90 tablet 1 Sig: take 1 tablet by mouth every day isosorbide mononitrate ER (IMDUR) 30 mg 24 hr tablet [Pharmacy Med Name: ISOSORBIDE MONONIT ER 30 MG TB] 90 tablet 1 Sig: take 1 tablet by mouth every day clopidogrel (PLAVIX) 75 mg tablet [Pharmacy Med Name: CLOPIDOGREL 75 MG TABLET] 90 tablet 1 Sig: take 1 tablet by mouth every day Please review and advise. Suzanne Almaguer MA documented in this encounter [facility] 01-03-2024 Telephone encounter Note Patient's request for medication is as follows: Requested Prescriptions Pending Prescriptions Disp Refills ezetimibe (ZETIA) 10 mg tablet [Pharmacy Med Name: EZETIMIBE 10 MG TABLET] 90 tablet 3 Sig: take 1 tablet by mouth every day Patient last seen on 01/29/2023. Follow up on 02/03/2024. Prescription(s) as above. Please process accordingly. Briana Mcmillan LPN [facility] 01-03-2024 Miscellaneous Notes Patient's request for medication is as follows: Requested Prescriptions Pending Prescriptions Disp Refills ezetimibe (ZETIA) 10 mg tablet [Pharmacy Med Name: EZETIMIBE 10 MG TABLET] 90 tablet 3 Sig: take 1 tablet by mouth every day Patient last seen on 01/29/2023. Follow up on 02/03/2024. Prescription(s) as above. Please process accordingly. Briana Mcmillan LPN documented in this encounter [facility] 12-25-2023 Telephone encounter Note Patients ivania left message on voicemail. She states she is getting bypass surgery done 01/20/2024 and will be in hospital for 6 days. She wants to know if there is a service that can come out and take care of John for those days. Please advise with what kind of help john can get. Thanks. Suzanne Almaguer MA [facility] 12-25-2023 Miscellaneous Notes Patients ivania left message on voicemail. She states she is getting bypass surgery done 01/20/2024 and will be in hospital for 6 days. She wants to know if there is a service that can come out and take care of John for those days. Please advise with what kind of help john can get. Thanks. Suzanne Almaguer MA documented in this encounter [facility] 12-23-2023 Telephone encounter Note pharmacy electronically requesting refills as follows: Last seen 09/03/23 . Last refill 11/22/23 . Requested Prescriptions Pending Prescriptions Disp Refills gabapentin (NEURONTIN) 300 mg capsule 150 capsule 0 Sig: TAKE 2 CAPSULES BY MOUTH EVERY MORNING AND 3 CAPSULES AT BEDTIME FOR 30 DAYS. Strength: 300 mg Please review and advise. Precious Lacy MA [facility] 12-23-2023 Miscellaneous Notes pharmacy electronically requesting refills as follows: Last seen 09/03/23 . Last refill 11/22/23 . Requested Prescriptions Pending Prescriptions Disp Refills gabapentin (NEURONTIN) 300 mg capsule 150 capsule 0 Sig: TAKE 2 CAPSULES BY MOUTH EVERY MORNING AND 3 CAPSULES AT BEDTIME FOR 30 DAYS. Strength: 300 mg Please review and advise. Precious Lacy MA documented in this encounter [facility] 12-12-2023 Telephone encounter Note Pharmacy requesting refills as follows: Last Office Visit: 09/03/2023 Last Refill: 09/10/2023 Next Office Visit: No future apt Requested Prescriptions Pending Prescriptions Disp Refills fluticasone (FLONASE) 50 mcg/actuation nasal spray [Pharmacy Med Name: FLUTICASONE PROP 50 MCG SPRAY] 48 mL 1 Sig: spray 1 spray into each nostril every day Please review and advise. Eri Feng LPN [facility] 12-12-2023 Miscellaneous Notes Pharmacy requesting refills as follows: Last Office Visit: 09/03/2023 Last Refill: 09/10/2023 Next Office Visit: No future apt Requested Prescriptions Pending Prescriptions Disp Refills fluticasone (FLONASE) 50 mcg/actuation nasal spray [Pharmacy Med Name: FLUTICASONE PROP 50 MCG SPRAY] 48 mL 1 Sig: spray 1 spray into each nostril every day Please review and advise. Eri Feng LPN documented in this encounter [facility] 11-29-2023 Attending History and physical note UPDATED HISTORY AND PHYSICAL EXAMINATION SERVICE DATE: 11/29/2023 SERVICE TIME: 7:57 PHYSICAL EXAM MUST BE COMPLETED ON ADMISSION The History and Physical (completed in the past 30 days) has been reviewed and the patient has been examined. The contents accurately reflect the patient's condition with the following additions or revisions since the H&P was completed. Examination indicates no changes. This H&P can be found in the Electronic Medical Record . SIGNATURE: Rosemary Russell MD PATIENT NAME: Mars Peterson DATE: November 29, 2023 TIME: 7:57 AM Source Note - Rosemary Russell MD - 11/29/2023 8:15 AM EDT HISTORY AND PHYSICAL Mars Peterson 1955 REFERRING PHYSICIAN: Mone Robertson PA-C CHIEF COMPLAINT: No chief complaint on file. 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 DJD (degenerative joint disease) Essential hypertension Heart attack ([facility]) 1999 States his previous animal trainer told him he had a heart attack based on EKG (in [place]) Neuropathy Osteomyelitis of foot ([facility]) Peripheral vascular disease ([facility]) S/P CABG (coronary artery bypass graft) Umbilical hernia PAST SURGICAL HISTORY Procedure Laterality Date BACK SURGERY HX 2017 CABG (1) VEIN GRAFT & ARTERIAL GRAFT 2002 CABG x4 COLONOSCOPY 2007 FINGER AMPUTATION (SPECIFY DIGIT) HX HIP SURGERY HX 2000 1999, 2019 Replacement Right and left LEG AMPUTATION HX Right 2018 PAST SURGICAL HISTORY OF coccyx REMV CATARACT EXTRACAP,INSERT LENS Bilateral Current Outpatient Medications Medication Sig gabapentin (NEURONTIN) 300 mg capsule TAKE 2 CAPSULES BY MOUTH EVERY MORNING AND 3 CAPSULES AT BEDTIME FOR 30 DAYS. Strength: [address] (PROTONIX) 40 mg tablet take 1 tablet by mouth every day traZODone (DESYREL) 100 mg tablet take 2 tablets by mouth daily at bedtime lisinopril (ZESTRIL) 10 mg tablet take 1 tablet by mouth every day furosemide (LASIX) 40 mg tablet TAKE 1 TABLET BY MOUTH THREE TIMES A WEEK. escitalopram oxalate (LEXAPRO) 20 mg tablet take 1 tablet by mouth every day colestipol (COLESTID) 1 gram tablet TAKE 1 TABLET BY MOUTH TWICE A DAY fluticasone (FLONASE) 50 mcg/actuation nasal spray SPRAY 1 SPRAY INTO EACH NOSTRIL EVERY DAY nivgoosetzv-hdihqwagn-xnlzpeti (TRELEGY ELLIPTA) 200-62.5-25 mcg inhalation powder Inhale 1 Puff as instructed once daily. clopidogrel (PLAVIX) 75 mg tablet take 1 tablet by mouth every day isosorbide mononitrate ER (IMDUR) 30 mg 24 hr tablet TAKE 1 TABLET BY MOUTH EVERY DAY hydrOXYzine HCl (ATARAX) 25 mg tablet take 1 tablet by mouth four times a day metoprolol succinate ER (TOPROL XL) 25 mg 24 hr tablet take 1 tablet by mouth every day nitroglycerin sublingual (NITROSTAT) 0.4 mg SL tablet Dissolve 1 tablet under the tongue every 5 minutes as needed for chest pain. rosuvastatin (CRESTOR) 20 mg tablet Take 1 tablet by mouth daily at bedtime. diphenoxylate-atropine (LOMOTIL) 2.5-0.025 mg per tablet Take 2 tablets by mouth before meals and at bedtime for 7 days. Stop once diarrhea resolves. (Patient not taking: Reported on 09/09/2023) psyllium husk (METAMUCIL) 0.4 gram cap Take by mouth. albuterol sulfate 90 mcg/actuation aebs Inhale 1-2 Puffs as instructed every 4 hours as needed for wheezing/shortness of breath. ezetimibe (ZETIA) 10 mg tablet Take 1 tablet by mouth once daily. sodium chloride 0.65 % nasal spray Use 1 Jaffrey in the nose as needed. Lactobacillus acidophilus (PROBIOTIC) 10 billion cell cap Take 1 capsule by mouth once daily. acetaminophen (TYLENOL EXTRA STRENGTH) 500 mg tablet Take 2 tablets by mouth every 8 hours as needed for pain. FOR PAIN. Zinc 50 mg tab Take 50 mg by mouth once daily. aspirin, enteric coated (ASPIRIN, ENTERIC COATED) 81 mg EC tablet Take 81 mg by mouth once daily. ascorbic acid, vitamin C, (VITAMIN C) 500 mg tablet Take 500 mg by mouth once daily. multivit-min/folic/vit K/lycop (ONE-A-DAY MEN'S MULTIVITAMIN ORAL) Take by mouth once daily. ALLERGIES: Animal Dander and Seasonal Allergies PERSONAL HISTORY: Social History Tobacco Use Smoking status: Former Packs/day: 2.00 Years: 40.00 Additional pack years: 0.00 Total pack years: 80.00 Types: Cigarettes Quit date: 05/13/2001 Years since quittin.5 Smokeless tobacco: Former Types: Chew Vaping Use Vaping Use: Never used Substance Use Topics Alcohol use: Yes Comment: Occasional Drug use: Never FAMILY HISTORY Problem Relation Age of Onset Ovarian cancer Mother other (afib) Mother COPD Mother Heart Father heart attack other (Chronic oxygen) Father other (bladder cancer) Maternal Aunt Cancer Maternal Aunt Cancer Maternal Uncle Heart Paternal Uncle Leukemia Paternal Uncle Colon Cancer No Family History REVIEW OF SYSTEMS: Denies fevers Denies chest pain Denies shortness of breath Physical examination: Vital signs in chart, reviewed and noted by me General - WD/WN in no apparent distress, alert and oriented Head - Normocephalic. EOM intact with sclera clear. Mouth with mucus membranes moist. Neck - supple with no jugular venous distention noted. Trachea is midline. Lungs - normal breath sounds, normal respiratory motion, no adventitial sounds noted. Heart - normal heart sounds. Regular rate. Abdomen - soft and benign. Extremities - no pitting edema noted. Skin - Normal skin integrity. Neurological - non focal Psych - calm and appropriate Impression: screening for colon cancer, Discussion/Plan/Recommendations: I have discussed the above with the patient. I have offered colonoscopy , possible biopsies I have explained the procedure to the patient. I have counseled the patient as to the risks of the procedure, including but not limited to: infection, bleeding, injury to any intrabdominal organs such as liver/spleen, perforation of the GI tract, inability to complete the procedure, complications of anesthesia, etc. - the patient understands. The patient wishes to proceed. I have answered all questions to the patient s satisfaction and the patient has no further questions. Rosemary Russell MD [facility] Work Phone: 11-29-2023 History and physical note HISTORY AND PHYSICAL Mars Peterson 1955 REFERRING PHYSICIAN: Mone Robertson PA-C CHIEF COMPLAINT: No chief complaint on file. 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 DJD (degenerative joint disease) Essential hypertension Heart attack ([facility]) 1999 States his previous animal trainer told him he had a heart attack based on EKG (in [place]) Neuropathy Osteomyelitis of foot ([facility]) Peripheral vascular disease ([facility]) S/P CABG (coronary artery bypass graft) Umbilical hernia PAST SURGICAL HISTORY Procedure Laterality Date BACK SURGERY HX 2017 CABG (1) VEIN GRAFT & ARTERIAL GRAFT 2002 CABG x4 COLONOSCOPY 2006 FINGER AMPUTATION (SPECIFY DIGIT) HX HIP SURGERY HX 1999 1999, 2019 Replacement Right and left LEG AMPUTATION HX Right 2018 PAST SURGICAL HISTORY OF coccyx REMV CATARACT EXTRACAP,INSERT LENS Bilateral Current Outpatient Medications Medication Sig gabapentin (NEURONTIN) 300 mg capsule TAKE 2 CAPSULES BY MOUTH EVERY MORNING AND 3 CAPSULES AT BEDTIME FOR 30 DAYS. Strength: [address] (PROTONIX) 40 mg tablet take 1 tablet by mouth every day traZODone (DESYREL) 100 mg tablet take 2 tablets by mouth daily at bedtime lisinopril (ZESTRIL) 10 mg tablet take 1 tablet by mouth every day furosemide (LASIX) 40 mg tablet TAKE 1 TABLET BY MOUTH THREE TIMES A WEEK. escitalopram oxalate (LEXAPRO) 20 mg tablet take 1 tablet by mouth every day colestipol (COLESTID) 1 gram tablet TAKE 1 TABLET BY MOUTH TWICE A DAY fluticasone (FLONASE) 50 mcg/actuation nasal spray SPRAY 1 SPRAY INTO EACH NOSTRIL EVERY DAY ocimffxlqkz-ulmulaqxe-fcequvnm (TRELEGY ELLIPTA) 200-62.5-25 mcg inhalation powder Inhale 1 Puff as instructed once daily. clopidogrel (PLAVIX) 75 mg tablet take 1 tablet by mouth every day isosorbide mononitrate ER (IMDUR) 30 mg 24 hr tablet TAKE 1 TABLET BY MOUTH EVERY DAY hydrOXYzine HCl (ATARAX) 25 mg tablet take 1 tablet by mouth four times a day metoprolol succinate ER (TOPROL XL) 25 mg 24 hr tablet take 1 tablet by mouth every day nitroglycerin sublingual (NITROSTAT) 0.4 mg SL tablet Dissolve 1 tablet under the tongue every 5 minutes as needed for chest pain. rosuvastatin (CRESTOR) 20 mg tablet Take 1 tablet by mouth daily at bedtime. diphenoxylate-atropine (LOMOTIL) 2.5-0.025 mg per tablet Take 2 tablets by mouth before meals and at bedtime for 7 days. Stop once diarrhea resolves. (Patient not taking: Reported on 09/09/2023) psyllium husk (METAMUCIL) 0.4 gram cap Take by mouth. albuterol sulfate 90 mcg/actuation aebs Inhale 1-2 Puffs as instructed every 4 hours as needed for wheezing/shortness of breath. ezetimibe (ZETIA) 10 mg tablet Take 1 tablet by mouth once daily. sodium chloride 0.65 % nasal spray Use 1 Jaffrey in the nose as needed. Lactobacillus acidophilus (PROBIOTIC) 10 billion cell cap Take 1 capsule by mouth once daily. acetaminophen (TYLENOL EXTRA STRENGTH) 500 mg tablet Take 2 tablets by mouth every 8 hours as needed for pain. FOR PAIN. Zinc 50 mg tab Take 50 mg by mouth once daily. aspirin, enteric coated (ASPIRIN, ENTERIC COATED) 81 mg EC tablet Take 81 mg by mouth once daily. ascorbic acid, vitamin C, (VITAMIN C) 500 mg tablet Take 500 mg by mouth once daily. multivit-min/folic/vit K/lycop (ONE-A-DAY MEN'S MULTIVITAMIN ORAL) Take by mouth once daily. ALLERGIES: Animal Dander and Seasonal Allergies PERSONAL HISTORY: Social History Tobacco Use Smoking status: Former Packs/day: 2.00 Years: 40.00 Additional pack years: 0.00 Total pack years: 80.00 Types: Cigarettes Quit date: 05/13/2001 Years since quittin.5 Smokeless tobacco: Former Types: Chew Vaping Use Vaping Use: Never used Substance Use Topics Alcohol use: Yes Comment: Occasional Drug use: Never FAMILY HISTORY Problem Relation Age of Onset Ovarian cancer Mother other (afib) Mother COPD Mother Heart Father heart attack other (Chronic oxygen) Father other (bladder cancer) Maternal Aunt Cancer Maternal Aunt Cancer Maternal Uncle Heart Paternal Uncle Leukemia Paternal Uncle Colon Cancer No Family History REVIEW OF SYSTEMS: Denies fevers Denies chest pain Denies shortness of breath Physical examination: Vital signs in chart, reviewed and noted by me General - WD/WN in no apparent distress, alert and oriented Head - Normocephalic. EOM intact with sclera clear. Mouth with mucus membranes moist. Neck - supple with no jugular venous distention noted. Trachea is midline. Lungs - normal breath sounds, normal respiratory motion, no adventitial sounds noted. Heart - normal heart sounds. Regular rate. Abdomen - soft and benign. Extremities - no pitting edema noted. Skin - Normal skin integrity. Neurological - non focal Psych - calm and appropriate Impression: screening for colon cancer, Discussion/Plan/Recommendations: I have discussed the above with the patient. I have offered colonoscopy , possible biopsies I have explained the procedure to the patient. I have counseled the patient as to the risks of the procedure, including but not limited to: infection, bleeding, injury to any intrabdominal organs such as liver/spleen, perforation of the GI tract, inability to complete the procedure, complications of anesthesia, etc. - the patient understands. The patient wishes to proceed. I have answered all questions to the patient s satisfaction and the patient has no further questions. Rosemary Russell MD [facility] 11-29-2023 History and physical note UPDATED HISTORY AND PHYSICAL EXAMINATION SERVICE DATE: 11/29/2023 SERVICE TIME: 7:57 PHYSICAL EXAM MUST BE COMPLETED ON ADMISSION The History and Physical (completed in the past 30 days) has been reviewed and the patient has been examined. The contents accurately reflect the patient's condition with the following additions or revisions since the H&P was completed. Examination indicates no changes. This H&P can be found in the Electronic Medical Record . SIGNATURE: Rosemary Russell MD PATIENT NAME: Mars Peterson DATE: November 29, 2023 TIME: 7:57 AM Source Note - Rosemary Russell MD - 11/29/2023 8:15 AM EDT HISTORY AND PHYSICAL Mars Peterson 1955 REFERRING PHYSICIAN: Mone Robertson PA-C CHIEF COMPLAINT: No chief complaint on file. 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 DJD (degenerative joint disease) Essential hypertension Heart attack ([facility]) 1999 States his previous animal trainer told him he had a heart attack based on EKG (in [place]) Neuropathy Osteomyelitis of foot ([facility]) Peripheral vascular disease ([facility]) S/P CABG (coronary artery bypass graft) Umbilical hernia PAST SURGICAL HISTORY Procedure Laterality Date BACK SURGERY HX 2017 CABG (1) VEIN GRAFT & ARTERIAL GRAFT 2002 CABG x4 COLONOSCOPY 2006 FINGER AMPUTATION (SPECIFY DIGIT) HX HIP SURGERY HX 1999 1999, 2019 Replacement Right and left LEG AMPUTATION HX Right 2018 PAST SURGICAL HISTORY OF coccyx REMV CATARACT EXTRACAP,INSERT LENS Bilateral Current Outpatient Medications Medication Sig gabapentin (NEURONTIN) 300 mg capsule TAKE 2 CAPSULES BY MOUTH EVERY MORNING AND 3 CAPSULES AT BEDTIME FOR 30 DAYS. Strength: [address] (PROTONIX) 40 mg tablet take 1 tablet by mouth every day traZODone (DESYREL) 100 mg tablet take 2 tablets by mouth daily at bedtime lisinopril (ZESTRIL) 10 mg tablet take 1 tablet by mouth every day furosemide (LASIX) 40 mg tablet TAKE 1 TABLET BY MOUTH THREE TIMES A WEEK. escitalopram oxalate (LEXAPRO) 20 mg tablet take 1 tablet by mouth every day colestipol (COLESTID) 1 gram tablet TAKE 1 TABLET BY MOUTH TWICE A DAY fluticasone (FLONASE) 50 mcg/actuation nasal spray SPRAY 1 SPRAY INTO EACH NOSTRIL EVERY DAY wjysanmsdos-zdzvkanrn-hoizikoz (TRELEGY ELLIPTA) 200-62.5-25 mcg inhalation powder Inhale 1 Puff as instructed once daily. clopidogrel (PLAVIX) 75 mg tablet take 1 tablet by mouth every day isosorbide mononitrate ER (IMDUR) 30 mg 24 hr tablet TAKE 1 TABLET BY MOUTH EVERY DAY hydrOXYzine HCl (ATARAX) 25 mg tablet take 1 tablet by mouth four times a day metoprolol succinate ER (TOPROL XL) 25 mg 24 hr tablet take 1 tablet by mouth every day nitroglycerin sublingual (NITROSTAT) 0.4 mg SL tablet Dissolve 1 tablet under the tongue every 5 minutes as needed for chest pain. rosuvastatin (CRESTOR) 20 mg tablet Take 1 tablet by mouth daily at bedtime. diphenoxylate-atropine (LOMOTIL) 2.5-0.025 mg per tablet Take 2 tablets by mouth before meals and at bedtime for 7 days. Stop once diarrhea resolves. (Patient not taking: Reported on 09/09/2023) psyllium husk (METAMUCIL) 0.4 gram cap Take by mouth. albuterol sulfate 90 mcg/actuation aebs Inhale 1-2 Puffs as instructed every 4 hours as needed for wheezing/shortness of breath. ezetimibe (ZETIA) 10 mg tablet Take 1 tablet by mouth once daily. sodium chloride 0.65 % nasal spray Use 1 Jaffrey in the nose as needed. Lactobacillus acidophilus (PROBIOTIC) 10 billion cell cap Take 1 capsule by mouth once daily. acetaminophen (TYLENOL EXTRA STRENGTH) 500 mg tablet Take 2 tablets by mouth every 8 hours as needed for pain. FOR PAIN. Zinc 50 mg tab Take 50 mg by mouth once daily. aspirin, enteric coated (ASPIRIN, ENTERIC COATED) 81 mg EC tablet Take 81 mg by mouth once daily. ascorbic acid, vitamin C, (VITAMIN C) 500 mg tablet Take 500 mg by mouth once daily. multivit-min/folic/vit K/lycop (ONE-A-DAY MEN'S MULTIVITAMIN ORAL) Take by mouth once daily. ALLERGIES: Animal Dander and Seasonal Allergies PERSONAL HISTORY: Social History Tobacco Use Smoking status: Former Packs/day: 2.00 Years: 40.00 Additional pack years: 0.00 Total pack years: 80.00 Types: Cigarettes Quit date: 05/13/2001 Years since quittin.5 Smokeless tobacco: Former Types: Chew Vaping Use Vaping Use: Never used Substance Use Topics Alcohol use: Yes Comment: Occasional Drug use: Never FAMILY HISTORY Problem Relation Age of Onset Ovarian cancer Mother other (afib) Mother COPD Mother Heart Father heart attack other (Chronic oxygen) Father other (bladder cancer) Maternal Aunt Cancer Maternal Aunt Cancer Maternal Uncle Heart Paternal Uncle Leukemia Paternal Uncle Colon Cancer No Family History REVIEW OF SYSTEMS: Denies fevers Denies chest pain Denies shortness of breath Physical examination: Vital signs in chart, reviewed and noted by me General - WD/WN in no apparent distress, alert and oriented Head - Normocephalic. EOM intact with sclera clear. Mouth with mucus membranes moist. Neck - supple with no jugular venous distention noted. Trachea is midline. Lungs - normal breath sounds, normal respiratory motion, no adventitial sounds noted. Heart - normal heart sounds. Regular rate. Abdomen - soft and benign. Extremities - no pitting edema noted. Skin - Normal skin integrity. Neurological - non focal Psych - calm and appropriate Impression: screening for colon cancer, Discussion/Plan/Recommendations: I have discussed the above with the patient. I have offered colonoscopy , possible biopsies I have explained the procedure to the patient. I have counseled the patient as to the risks of the procedure, including but not limited to: infection, bleeding, injury to any intrabdominal organs such as liver/spleen, perforation of the GI tract, inability to complete the procedure, complications of anesthesia, etc. - the patient understands. The patient wishes to proceed. I have answered all questions to the patient s satisfaction and the patient has no further questions. Rosemary Russell MD HISTORY AND PHYSICAL Mars H Nicholas 1955 REFERRING PHYSICIAN: Mone Robertson PA-C CHIEF COMPLAINT: No chief complaint on file. 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 DJD (degenerative joint disease) Essential hypertension Heart attack ([facility]) 2000 States his previous animal trainer told him he had a heart attack based on EKG (in [place]) Neuropathy Osteomyelitis of foot ([facility]) Peripheral vascular disease ([facility]) S/P CABG (coronary artery bypass graft) Umbilical hernia PAST SURGICAL HISTORY Procedure Laterality Date BACK SURGERY HX 2017 CABG (1) VEIN GRAFT & ARTERIAL GRAFT 2002 CABG x4 COLONOSCOPY 2007 FINGER AMPUTATION (SPECIFY DIGIT) HX HIP SURGERY HX 1999 1999, 2019 Replacement Right and left LEG AMPUTATION HX Right 2018 PAST SURGICAL HISTORY OF coccyx REMV CATARACT EXTRACAP,INSERT LENS Bilateral Current Outpatient Medications Medication Sig gabapentin (NEURONTIN) 300 mg capsule TAKE 2 CAPSULES BY MOUTH EVERY MORNING AND 3 CAPSULES AT BEDTIME FOR 30 DAYS. Strength: [address] (PROTONIX) 40 mg tablet take 1 tablet by mouth every day traZODone (DESYREL) 100 mg tablet take 2 tablets by mouth daily at bedtime lisinopril (ZESTRIL) 10 mg tablet take 1 tablet by mouth every day furosemide (LASIX) 40 mg tablet TAKE 1 TABLET BY MOUTH THREE TIMES A WEEK. escitalopram oxalate (LEXAPRO) 20 mg tablet take 1 tablet by mouth every day colestipol (COLESTID) 1 gram tablet TAKE 1 TABLET BY MOUTH TWICE A DAY fluticasone (FLONASE) 50 mcg/actuation nasal spray SPRAY 1 SPRAY INTO EACH NOSTRIL EVERY DAY hgsdfqjrdzs-vxzkvjxid-cjpwnoba (TRELEGY ELLIPTA) 200-62.5-25 mcg inhalation powder Inhale 1 Puff as instructed once daily. clopidogrel (PLAVIX) 75 mg tablet take 1 tablet by mouth every day isosorbide mononitrate ER (IMDUR) 30 mg 24 hr tablet TAKE 1 TABLET BY MOUTH EVERY DAY hydrOXYzine HCl (ATARAX) 25 mg tablet take 1 tablet by mouth four times a day metoprolol succinate ER (TOPROL XL) 25 mg 24 hr tablet take 1 tablet by mouth every day nitroglycerin sublingual (NITROSTAT) 0.4 mg SL tablet Dissolve 1 tablet under the tongue every 5 minutes as needed for chest pain. rosuvastatin (CRESTOR) 20 mg tablet Take 1 tablet by mouth daily at bedtime. diphenoxylate-atropine (LOMOTIL) 2.5-0.025 mg per tablet Take 2 tablets by mouth before meals and at bedtime for 7 days. Stop once diarrhea resolves. (Patient not taking: Reported on 09/09/2023) psyllium husk (METAMUCIL) 0.4 gram cap Take by mouth. albuterol sulfate 90 mcg/actuation aebs Inhale 1-2 Puffs as instructed every 4 hours as needed for wheezing/shortness of breath. ezetimibe (ZETIA) 10 mg tablet Take 1 tablet by mouth once daily. sodium chloride 0.65 % nasal spray Use 1 Jaffrey in the nose as needed. Lactobacillus acidophilus (PROBIOTIC) 10 billion cell cap Take 1 capsule by mouth once daily. acetaminophen (TYLENOL EXTRA STRENGTH) 500 mg tablet Take 2 tablets by mouth every 8 hours as needed for pain. FOR PAIN. Zinc 50 mg tab Take 50 mg by mouth once daily. aspirin, enteric coated (ASPIRIN, ENTERIC COATED) 81 mg EC tablet Take 81 mg by mouth once daily. ascorbic acid, vitamin C, (VITAMIN C) 500 mg tablet Take 500 mg by mouth once daily. multivit-min/folic/vit K/lycop (ONE-A-DAY MEN'S MULTIVITAMIN ORAL) Take by mouth once daily. ALLERGIES: Animal Dander and Seasonal Allergies PERSONAL HISTORY: Social History Tobacco Use Smoking status: Former Packs/day: 2.00 Years: 40.00 Additional pack years: 0.00 Total pack years: 80.00 Types: Cigarettes Quit date: 05/13/2001 Years since quittin.5 Smokeless tobacco: Former Types: Chew Vaping Use Vaping Use: Never used Substance Use Topics Alcohol use: Yes Comment: Occasional Drug use: Never FAMILY HISTORY Problem Relation Age of Onset Ovarian cancer Mother other (afib) Mother COPD Mother Heart Father heart attack other (Chronic oxygen) Father other (bladder cancer) Maternal Aunt Cancer Maternal Aunt Cancer Maternal Uncle Heart Paternal Uncle Leukemia Paternal Uncle Colon Cancer No Family History REVIEW OF SYSTEMS: Denies fevers Denies chest pain Denies shortness of breath Physical examination: Vital signs in chart, reviewed and noted by me General - WD/WN in no apparent distress, alert and oriented Head - Normocephalic. EOM intact with sclera clear. Mouth with mucus membranes moist. Neck - supple with no jugular venous distention noted. Trachea is midline. Lungs - normal breath sounds, normal respiratory motion, no adventitial sounds noted. Heart - normal heart sounds. Regular rate. Abdomen - soft and benign. Extremities - no pitting edema noted. Skin - Normal skin integrity. Neurological - non focal Psych - calm and appropriate Impression: screening for colon cancer, Discussion/Plan/Recommendations: I have discussed the above with the patient. I have offered colonoscopy , possible biopsies I have explained the procedure to the patient. I have counseled the patient as to the risks of the procedure, including but not limited to: infection, bleeding, injury to any intrabdominal organs such as liver/spleen, perforation of the GI tract, inability to complete the procedure, complications of anesthesia, etc. - the patient understands. The patient wishes to proceed. I have answered all questions to the patient s satisfaction and the patient has no further questions. Rosemary Russell MD documented in this encounter [facility] 11-22-2023 Telephone encounter Note pharmacy electronically requesting refills as follows: Last seen 09/03/23 . Last refill 10/21/23 . Requested Prescriptions Pending Prescriptions Disp Refills gabapentin (NEURONTIN) 300 mg capsule 150 capsule 0 Sig: TAKE 2 CAPSULES BY MOUTH EVERY MORNING AND 3 CAPSULES AT BEDTIME FOR 30 DAYS. Strength: 300 mg Please review and advise. Precious Lacy MA [facility] 11-22-2023 Miscellaneous Notes pharmacy electronically requesting refills as follows: Last seen 09/03/23 . Last refill 10/21/23 . Requested Prescriptions Pending Prescriptions Disp Refills gabapentin (NEURONTIN) 300 mg capsule 150 capsule 0 Sig: TAKE 2 CAPSULES BY MOUTH EVERY MORNING AND 3 CAPSULES AT BEDTIME FOR 30 DAYS. Strength: 300 mg Please review and advise. Precious Lacy MA documented in this encounter [facility] 11-21-2023 History of Presen t illness Narrative Radiology Service Progress Note PATIENT NAME: Mars DOHERTYN: [id number] DATE OF SERVICE: November 21, 2023 TIME: 11:19 AM PATIENT IDENTITY VERIFICATION COMPLETED USING TWO (2) IDENTIFIERS: Name and Date of confirmed by patient verbally. FALL SCREENING: Has the patient had 2 falls in the last year or 1 fall with injury or currently using an Ambulatory Assistive Device (Walker, Cane, Wheelchair, Crutches, etc.)? No PATIENT GENDER DATA: Male PATIENT RELEVANT IMPLANT DATA REVIEWED: Yes PATIENT PRESENTS WITH AN IMPLANTABLE OR ATTACHED LEAD SHOP OPERATOR: No RADIOLOGY DEPARTMENT: General X-ray: Exam(s) Completed: Lower Extremity X-Ray(s): Toes, Left 2nd PERIPHERAL IV DATA: Not applicable SIGNED BY: RT Emily(R) November 21, 2023 11:19 AM documented in this encounter [facility] 11-21-2023 Telephone encounter Note Faxed over cardiac clearance to Dr. Sarmiento to hold Plavix. Also messaged planner scheduler for [facility] to find out if patient would need a PACC appointment prior to procedure. Blanca White [facility] 11-21-2023 Miscellaneous Notes Faxed over cardiac clearance to Dr. Sarmiento to hold Plavix. Also messaged planner scheduler for [facility] to find out if patient would need a PACC appointment prior to procedure. Blanca White documented in this encounter [facility] 11-21-[address] Russell please advise on if patient is to stop blood thinners or not Joy Sanchez Vocational Coordinator [facility] 11-21-[address] Russell please advise on if patient is to stop blood thinners or not Joy Sanchez Vocational Coordinator documented in this encounter [facility] 11-21-2023 Instructions Francesco Tobias - 11/21/2023 10:59 AM EDT Would apply topical antibiotic to left 2nd toe daily until healed. documented in this encounter [facility] 11-21-2023 History of Presen t illness Narrative Initial Podiatric Office Visit: Chief Complaint: This 68 year old male who presents with chief complaint:left 2nd toe ulceration. HPI Patient presents to clinic for evlauation of left foot Previously had ulceration of left 2nd toe (distal tuft) but this is now healed Here to possibly establish nail care Has history of right bka due to pad PAIN EVALUATION No data found in the last 1 encounters. 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 DJD (degenerative joint disease) Essential hypertension Heart attack ([facility]) 1999 States his previous animal trainer told him he had a heart attack based on EKG (in [place]) Neuropathy Osteomyelitis of foot ([facility]) Peripheral vascular disease ([facility]) S/P CABG (coronary artery bypass graft) Umbilical hernia Current Outpatient Medications Medication Sig pantoprazole DR (PROTONIX) 40 mg tablet take 1 tablet by mouth every day traZODone (DESYREL) 100 mg tablet take 2 tablets by mouth daily at bedtime lisinopril (ZESTRIL) 10 mg tablet take 1 tablet by mouth every day furosemide (LASIX) 40 mg tablet TAKE 1 TABLET BY MOUTH THREE TIMES A WEEK. escitalopram oxalate (LEXAPRO) 20 mg tablet take 1 tablet by mouth every day colestipol (COLESTID) 1 gram tablet TAKE 1 TABLET BY MOUTH TWICE A DAY fluticasone (FLONASE) 50 mcg/actuation nasal spray SPRAY 1 SPRAY INTO EACH NOSTRIL EVERY DAY dmqxfcukscy-xpmayqjat-lanehbrn (TRELEGY ELLIPTA) 200-62.5-25 mcg inhalation powder Inhale 1 Puff as instructed once daily. clopidogrel (PLAVIX) 75 mg tablet take 1 tablet by mouth every day isosorbide mononitrate ER (IMDUR) 30 mg 24 hr tablet TAKE 1 TABLET BY MOUTH EVERY DAY hydrOXYzine HCl (ATARAX) 25 mg tablet take 1 tablet by mouth four times a day metoprolol succinate ER (TOPROL XL) 25 mg 24 hr tablet take 1 tablet by mouth every day nitroglycerin sublingual (NITROSTAT) 0.4 mg SL tablet Dissolve 1 tablet under the tongue every 5 minutes as needed for chest pain. rosuvastatin (CRESTOR) 20 mg tablet Take 1 tablet by mouth daily at bedtime. psyllium husk (METAMUCIL) 0.4 gram cap Take by mouth. albuterol sulfate 90 mcg/actuation aebs Inhale 1-2 Puffs as instructed every 4 hours as needed for wheezing/shortness of breath. ezetimibe (ZETIA) 10 mg tablet Take 1 tablet by mouth once daily. sodium chloride 0.65 % nasal spray Use 1 Jaffrey in the nose as needed. Lactobacillus acidophilus (PROBIOTIC) 10 billion cell cap Take 1 capsule by mouth once daily. acetaminophen (TYLENOL EXTRA STRENGTH) 500 mg tablet Take 2 tablets by mouth every 8 hours as needed for pain. FOR PAIN. Zinc 50 mg tab Take 50 mg by mouth once daily. aspirin, enteric coated (ASPIRIN, ENTERIC COATED) 81 mg EC tablet Take 81 mg by mouth once daily. ascorbic acid, vitamin C, (VITAMIN C) 500 mg tablet Take 500 mg by mouth once daily. multivit-min/folic/vit K/lycop (ONE-A-DAY MEN'S MULTIVITAMIN ORAL) Take by mouth once daily. gabapentin (NEURONTIN) 300 mg capsule TAKE 2 CAPSULES BY MOUTH EVERY MORNING AND 3 CAPSULES AT BEDTIME FOR 30 DAYS. STRENGTH: 300 MG diphenoxylate-atropine (LOMOTIL) 2.5-0.025 mg per tablet Take 2 tablets by mouth before meals and at bedtime for 7 days. Stop once diarrhea resolves. (Patient not taking: Reported on 09/09/2023) No current facility-administered medications for this visit. ALLERGIES Allergen Reactions Animal Dander Other: See Comments Anything with fur Seasonal Allergies Other: See Comments Stuffy nose, headaches PAST SURGICAL HISTORY Procedure Laterality Date BACK SURGERY HX 2017 CABG (1) VEIN GRAFT & ARTERIAL GRAFT 2001 CABG x4 COLONOSCOPY 2007 FINGER AMPUTATION (SPECIFY DIGIT) HX HIP SURGERY HX 2000 1999, 2019 Replacement Right and left LEG AMPUTATION HX Right 2018 PAST SURGICAL HISTORY OF coccyx REMV CATARACT EXTRACAP,INSERT LENS Bilateral FAMILY HISTORY Problem Relation Age of Onset Ovarian cancer Mother other (afib) Mother COPD Mother Heart Father heart attack other (Chronic oxygen) Father other (bladder cancer) Maternal Aunt Cancer Maternal Aunt Cancer Maternal Uncle Heart Paternal Uncle Leukemia Paternal Uncle Colon Cancer No Family History Social History Tobacco Use Smoking status: Former Packs/day: 2.00 Years: 40.00 Additional pack years: 0.00 Total pack years: 80.00 Types: Cigarettes Quit date: 05/13/2001 Years since quittin.5 Smokeless tobacco: Former Types: Chew Vaping Use Vaping Use: Never used Substance Use Topics Alcohol use: Yes Comment: Occasional Drug use: Never REVIEW OF SYSTEMS GENERAL: Negative for Malaise, significant weight loss, fever RESPIRATORY: Negative for cough, wheezing and shortness of breath CARDIOVASCULAR: Negative for chest pain, leg swelling and palpitations GI: Negative for abdominal discomfort, blood in stools or black stools and change in bowel habits : Negative for dysuria, frequency and incontinence MUSCULOSKELETAL: Negative for joint pain or swelling, back pain, and muscle pain. SKIN: Negative for lesions, rash, and itching. HEMATOLOGY/LYMPHOLOGY Negative for prolonged bleeding, bruising easily, and swollen nodes. ENDOCRINE: Negative for cold or heat intolerance, polyuria, polydipsia and goiter. NEURO: negative Physical Exam: Constitutional: Pt is a well developed 68 year old male who is alert, oriented and cooperative Eyes: Following during examination. No redness or drainage. Respiratory: RR normal and nonlabored. Even breathing. No evidence of distress or shortness of breath. Psychology: Patient is engaged during conversation. Normal affect and mood. Does not appear depressed or anxious during encounter. Vascular: Dorsalis pedis and posterior tibial pulses palpable as left Capillary Fill time < 5 seconds to digits 1-5 left Skin temperature warm to warm proximal to distal left Hair growth present to digits Narrative Non-Invasive Vascular Laboratory [facility] Extremity Arterial Physiology Study Bilateral/Complete Date of service/time: 10/15/2023 11:06:24 AM Name: MARS PETERSON Date of : 1955 Age: 68 years Gender: M Clinical Indication Peripheral vascular disease. TECHNIQUE -------- An arterial physiological examination was performed, including measurement of blood pressures using continuous wave Doppler and recording of plethysmographic with or without Doppler waveforms at the below-mentioned limb segments. FINDINGS -------- RIGHT SIDE AT REST Right Pressures Brachial: 156 mmHg High thigh: 255 mmHg Non-compressible arteries. Low thigh: 255 mmHg Non-compressible arteries. Right PVR Waveforms High thigh: Normal. Low thigh: Normal. LEFT SIDE AT REST Left Doppler Waveforms Dorsalis pedis: Multiphasic. Post tibial: Multiphasic. Left Pressures Brachial: 160 mmHg High thigh: 255 mmHg Non-compressible arteries. Low thigh: 255 mmHg Non-compressible arteries. Calf: 255 mmHg Non-compressible arteries. Ankle dorsalis pedis: 255 mmHg SUHA: 1.59 Non-compressible arteries. Ankle posterior tibial: 255 mmHg SUHA: 1.59 Non-compressible arteries. Digit: 123 mmHg Left PVR Waveforms High thigh: Normal. Low thigh: Normal. Calf: Normal. Ankle: Normal. Transmetatarsal: Normal. Digit: Normal. IMPRESSION RIGHT SIDE Resting right ankle brachial index: Below knee amputation. Right ankle: Below knee amputation. LEFT SIDE Resting left ankle brachial index: 1.59 Non-compressible arteries, SUHA not accurate. Left toe brachial index: 0.77 Non-compressible vessels, results called by PVR tracings. Normal toe brachial index at rest in the left leg. Left ankle: Normal at rest. Technologist: Davina Vaughn RVT, [facility] Ordering physician: KATELYNN KNOWLES Interpreting physician: ELPIDIO Stringer DO Neurological: absent light touch/epicritic sensation Vibratory sensation absent left absent protective sensation + significant neurological deficits Dermatological: Nails 1,3-5 left appear elongated, dystrophic. The left 2nd toenail is absent. There is pressure indentation to left 3rd, 4th and 5th toe from elongated toenails. Superficial wound to left 2nd toe likely caused by toenail that fell off today. Webspaces clean and dry 1-4 left. Skin appears well hydrated and supple. good color, texture, turgor. No open lesions present. No callosities present. Musculoskeletal/Orthopaedic: Patient has no pain to palpation of left foot Right bka Radiographs: ordered ASSESSMENT: (L97.521) Ulcer of toe of left foot, limited to breakdown of skin (HCC) (primary encounter diagnosis) (B35.1) Onychomycosis (Z89.511) 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) PLAN: 1. History and physical examination performed. 2. Discussed ulceration of left 2nd toe. Likely caused by an elongated toenail. Toenail fell off today and nail bed is intact. Would have him apply topical antibiotic to the toe until the toe is healed which I suspect should occur within the next few days. 3. Discussed dystrophic toenails. Toenails 1,3-5 left debrided in length and thickness. Q7 modifier 4. Discussed removal of toenails vs periodic debridement. Patient elects for periodic debridement. 5. Baseline xray ordered for left 2nd toe ulceration. Francesco Tobias DPM Podiatry [address] [facility] [address] Dept: [phone] Dept Patient presents with: Left Foot - New Patient, Peripheral Vascular Disease (PVD) is with patient today. Here for a foot check. His toenail on L 2nd toe fell off this morning. History of BKA, R, peripheral vascular disease. No open wounds on foot. documented in this encounter [facility] 11-20-2023 Telephone encounter Note pharm requesting refills: Last office visit 09/03/2023. Last refill 05/28/2023 nov none Requested Prescriptions Pending Prescriptions Disp Refills pantoprazole DR (PROTONIX) 40 mg tablet [Pharmacy Med Name: PANTOPRAZOLE SOD DR 40 MG TAB] 90 tablet 1 Sig: take 1 tablet by mouth every day traZODone (DESYREL) 100 mg tablet [Pharmacy Med Name: TRAZODONE 100 MG TABLET] 180 tablet 1 Sig: take 2 tablets by mouth daily at bedtime Please review and advise. Suzanne Almaguer MA [facility] 11-20-2023 Miscellaneous Notes pharm requesting refills: Last office visit 09/03/2023. Last refill 05/28/2023 nov none Requested Prescriptions Pending Prescriptions Disp Refills pantoprazole DR (PROTONIX) 40 mg tablet [Pharmacy Med Name: PANTOPRAZOLE SOD DR 40 MG TAB] 90 tablet 1 Sig: take 1 tablet by mouth every day traZODone (DESYREL) 100 mg tablet [Pharmacy Med Name: TRAZODONE 100 MG TABLET] 180 tablet 1 Sig: take 2 tablets by mouth daily at bedtime Please review and advise. Suzanne Almaguer MA documented in this encounter [facility] 11-04-2023 Telephone encounter Note pharmacy electronically requesting refills as follows: Last seen 09/03/23 . Last refill 05/14/23 . Requested Prescriptions Pending Prescriptions Disp Refills lisinopril (ZESTRIL) 10 mg tablet [Pharmacy Med Name: LISINOPRIL 10 MG TABLET] 90 tablet 1 Sig: take 1 tablet by mouth every day Please review and advise. Precious Lacy MA [facility] 11-04-2023 Miscellaneous Notes pharmacy electronically requesting refills as follows: Last seen 09/03/23 . Last refill 05/14/23 . Requested Prescriptions Pending Prescriptions Disp Refills lisinopril (ZESTRIL) 10 mg tablet [Pharmacy Med Name: LISINOPRIL 10 MG TABLET] 90 tablet 1 Sig: take 1 tablet by mouth every day Please review and advise. Precious Lacy MA documented in this encounter [facility] 11-04-2023 Telephone encounter Note Patients called saying that her has an appt for colonoscopy 11/[address] Russell. I do not see it schedule. Please call her [phone]. [facility] 11-04-2023 Miscellaneous Notes Patients called saying that her has an appt for colonoscopy 11/[address] Russell. I do not see it schedule. Please call her [phone]. documented in this encounter [facility] 10-31-2023 Telephone encounter Note ----- Message from Alma Gill APRN.CNP sent at 10/31/2023 2:22 PM EDT ----- Please let patient's know that his stool studies were negative for cdiff or bacterial infection. Thank you. [facility] 10-31-2023 Miscellaneous Notes ----- Message from Alma Gill APRN.CNP sent at 10/31/2023 2:22 PM EDT ----- Please let patient's know that his stool studies were negative for cdiff or bacterial infection. Thank you. documented in this encounter [facility] 10-31-2023 Telephone encounter Note Pharmacy requesting refills as follows: Last Office Visit 09/03/23 NOV none. Last Refill 05/20/23. Requested Prescriptions Pending Prescriptions Disp Refills furosemide (LASIX) 40 mg tablet [Pharmacy Med Name: FUROSEMIDE 40 MG TABLET] 36 tablet 1 Sig: TAKE 1 TABLET BY MOUTH THREE TIMES A WEEK. Please review and advise. Priya Pedersen MA [facility] 10-31-2023 Miscellaneous Notes Pharmacy requesting refills as follows: Last Office Visit 09/03/23 NOV none. Last Refill 05/20/23. Requested Prescriptions Pending Prescriptions Disp Refills furosemide (LASIX) 40 mg tablet [Pharmacy Med Name: FUROSEMIDE 40 MG TABLET] 36 tablet 1 Sig: TAKE 1 TABLET BY MOUTH THREE TIMES A WEEK. Please review and advise. Priya Pedersen MA documented in this encounter [facility] 10-28-2023 Telephone encounter Note Spoke with Ivania about patient's test results. Ivania verbalizes understanding. Lilian Rodriguez LPN [facility] 10-28-2023 Miscellaneous Notes Spoke with Ivania about patient's test results. Ivania verbalizes understanding. Lilian Rodriguez LPN ----- Message from Mine Brady APRN.TAG MACHINE OPERATOR sent at 10/28/2023 2:15 PM EDT ----- Please call the patient and report lab results revealed chronically low sodium and chloride, normal liver enzymes, normal kidney function, and good cholesterol control. Mine Brady APRN.EVANS documented in this encounter [facility] 10-28-2023 Telephone encounter Note ----- Message from Mine Brady APRN.CNP sent at 10/28/2023 2:15 PM EDT ----- Please call the patient and report lab results revealed chronically low sodium and chloride, normal liver enzymes, normal kidney function, and good cholesterol control. Mine Brady APRN.TAG MACHINE OPERATOR [facility] 10-21-2023 Telephone encounter Note pharmacy electronically requesting refills as follows: Last seen 09/03/23 . Last refill 09/20/23 . Requested Prescriptions Pending Prescriptions Disp Refills gabapentin (NEURONTIN) 300 mg capsule [Pharmacy Med Name: GABAPENTIN 300 MG CAPSULE] 150 capsule 0 Sig: TAKE 2 CAPSULES BY MOUTH EVERY MORNING AND 3 CAPSULES AT BEDTIME FOR 30 DAYS. STRENGTH: 300 MG Please review and advise. Precious Lacy MA [facility] 10-21-2023 Miscellaneous Notes pharmacy electronically requesting refills as follows: Last seen 09/03/23 . Last refill 09/20/23 . Requested Prescriptions Pending Prescriptions Disp Refills gabapentin (NEURONTIN) 300 mg capsule [Pharmacy Med Name: GABAPENTIN 300 MG CAPSULE] 150 capsule 0 Sig: TAKE 2 CAPSULES BY MOUTH EVERY MORNING AND 3 CAPSULES AT BEDTIME FOR 30 DAYS. STRENGTH: 300 MG Please review and advise. Precious Lacy MA documented in this encounter [facility] 10-16-2023 Telephone encounter Note pharmacy electronically requesting refills as follows: Last seen 09/03/23 . Last refill 01/21/23 . Requested Prescriptions Pending Prescriptions Disp Refills escitalopram oxalate (LEXAPRO) 20 mg tablet [Pharmacy Med Name: ESCITALOPRAM 20 MG TABLET] 90 tablet 1 Sig: take 1 tablet by mouth every day Please review and advise. Precious Lacy MA [facility] 10-16-2023 Miscellaneous Notes pharmacy electronically requesting refills as follows: Last seen 09/03/23 . Last refill 01/21/23 . Requested Prescriptions Pending Prescriptions Disp Refills escitalopram oxalate (LEXAPRO) 20 mg tablet [Pharmacy Med Name: ESCITALOPRAM 20 MG TABLET] 90 tablet 1 Sig: take 1 tablet by mouth every day Please review and advise. Precious Lacy MA documented in this encounter [facility] 10-15-2023 History of Presen t illness Narrative Images from the original note were not included. Heart , Vascular and Thoracic [place] DEPARTMENT OF VASCULAR SURGERY OUTPATIENT VISIT DATE October 15, 2023 OUTPATIENT VISIT TYPE ESTABLISHED SERVICE DATE: 10/15/2023 SERVICE TIME: 11:59 AM PRIMARY CARE PHYSICIAN: Alma Gill APRN.CNP HISTORY OF PRESENT ILLNESS: Mr. Peterson is a 68 year old male who presents today for a vascular surgery follow-up visit after PVRs. He has a history of BKA. 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 DJD (degenerative joint disease) Essential hypertension Heart attack ([facility]) 1999 States his previous animal trainer told him he had a heart attack based on EKG (in [place]) Neuropathy Osteomyelitis of foot ([facility]) Peripheral vascular disease ([facility]) S/P CABG (coronary artery bypass graft) Umbilical hernia PAST SURGICAL HISTORY Procedure Laterality Date BACK SURGERY HX 2017 CABG (1) VEIN GRAFT & ARTERIAL GRAFT 2002 CABG x4 COLONOSCOPY 2007 FINGER AMPUTATION (SPECIFY DIGIT) HX HIP SURGERY HX 2000 1999, 2019 Replacement Right and left LEG AMPUTATION HX Right 2018 PAST SURGICAL HISTORY OF coccyx REMV CATARACT EXTRACAP,INSERT LENS Bilateral SOCIAL HISTORY Social History Tobacco Use Smoking status: Former Packs/day: 2.00 Years: 40.00 Additional pack years: 0.00 Total pack years: 80.00 Types: Cigarettes Quit date: 05/13/2001 Years since quittin.4 Smokeless tobacco: Former Types: Chew Vaping Use Vaping Use: Never used Substance Use Topics Alcohol use: Yes Comment: Occasional Drug use: Never MEDICATIONS: colestipol (COLESTID) 1 gram tablet TAKE 1 TABLET BY MOUTH TWICE A DAY gabapentin (NEURONTIN) 300 mg capsule TAKE 2 CAPSULES BY MOUTH EVERY MORNING AND 3 CAPSULES AT BEDTIME FOR 30 DAYS. Strength: 300 mg fluticasone (FLONASE) 50 mcg/actuation nasal spray SPRAY 1 SPRAY INTO EACH NOSTRIL EVERY DAY otcwixokkxu-svstswflr-wdzfxudn (TRELEGY ELLIPTA) 200-62.5-25 mcg inhalation powder Inhale 1 Puff as instructed once daily. clopidogrel (PLAVIX) 75 mg tablet take 1 tablet by mouth every day isosorbide mononitrate ER (IMDUR) 30 mg 24 hr tablet TAKE 1 TABLET BY MOUTH EVERY DAY hydrOXYzine HCl (ATARAX) 25 mg tablet take 1 tablet by mouth four times a day metoprolol succinate ER (TOPROL XL) 25 mg 24 hr tablet take 1 tablet by mouth every day nitroglycerin sublingual (NITROSTAT) 0.4 mg SL tablet Dissolve 1 tablet under the tongue every 5 minutes as needed for chest pain. rosuvastatin (CRESTOR) 20 mg tablet Take 1 tablet by mouth daily at bedtime. traZODone (DESYREL) 100 mg tablet TAKE 2 TABLETS BY MOUTH DAILY AT BEDTIME pantoprazole DR (PROTONIX) 40 mg tablet take 1 tablet by mouth every day furosemide (LASIX) 40 mg tablet Take 1 tablet by mouth three times a week. lisinopril (ZESTRIL) 10 mg tablet take 1 tablet by mouth every day psyllium husk (METAMUCIL) 0.4 gram cap Take by mouth. albuterol sulfate 90 mcg/actuation aebs Inhale 1-2 Puffs as instructed every 4 hours as needed for wheezing/shortness of breath. ezetimibe (ZETIA) 10 mg tablet Take 1 tablet by mouth once daily. escitalopram oxalate (LEXAPRO) 20 mg tablet Take 1 tablet by mouth once daily. sodium chloride 0.65 % nasal spray Use 1 Jaffrey in the nose as needed. Lactobacillus acidophilus (PROBIOTIC) 10 billion cell cap Take 1 capsule by mouth once daily. acetaminophen (TYLENOL EXTRA STRENGTH) 500 mg tablet Take 2 tablets by mouth every 8 hours as needed for pain. FOR PAIN. Zinc 50 mg tab Take 50 mg by mouth once daily. aspirin, enteric coated (ASPIRIN, ENTERIC COATED) 81 mg EC tablet Take 81 mg by mouth once daily. ascorbic acid, vitamin C, (VITAMIN C) 500 mg tablet Take 500 mg by mouth once daily. multivit-min/folic/vit K/lycop (ONE-A-DAY MEN'S MULTIVITAMIN ORAL) Take by mouth once daily. diphenoxylate-atropine (LOMOTIL) 2.5-0.025 mg per tablet Take 2 tablets by mouth before meals and at bedtime for 7 days. Stop once diarrhea resolves. (Patient not taking: Reported on 09/09/2023) ALLERGIES: ALLERGIES Allergen Reactions Animal Dander Other: See Comments Anything with fur Seasonal Allergies Other: See Comments Stuffy nose, headaches PHYSICAL EXAM: BP 156/74 (BP Site: Left Arm, BP Position: Sitting, BP Cuff Size: Extra Large Adult) Pulse (!) 58 SpO2 95% Gen- no distress Ext- BKA, no significant edema, mild hyperpigmentation Diagnostic tests reviewed for today's visit: Most recent labs Most recent imaging PVRs RIGHT SIDE Resting right ankle brachial index: Below knee amputation. Right ankle: Below knee amputation. LEFT SIDE Resting left ankle brachial index: 1.59 Non-compressible arteries, SUHA not accurate. Left toe brachial index: 0.77 Non-compressible vessels, results called by PVR tracings. Normal toe brachial index at rest in the left leg. Left ankle: Normal at rest. IMPRESSION: Mr. Peterson is a 68 year old male with peripheral arterial disease . PLAN and RECOMMENDATIONS: Reviewed findings with patient and Recommend follow up as needed Recommended making podiatry appointment for foot/nail concerns Continue foot care Follow up as needed if new symptoms SIGNATURE: Katelynn Knowles DO PATIENT NAME: Mars Peterson DATE: October 15, 2023 TIME: 11:59 AM documented in this encounter [facility] 10-01-2023 Telephone encounter Note Patients Ivania called to reschedule her husbands colonsocopy. Ivania can be reached at [phone] [facility] 10-01-2023 Miscellaneous Notes Patients Ivania called to reschedule her husbands colonsocopy. Ivania can be reached at [phone] documented in this encounter [facility] 09-25-2023 Telephone encounter Note Pharmacy comment: REQUEST FOR 90 DAYS PRESCRIPTION. DX Code Needed. [facility] 09-25-2023 Miscellaneous Notes Pharmacy comment: REQUEST FOR 90 DAYS PRESCRIPTION. DX Code Needed. documented in this encounter [facility] 09-20-2023 Telephone encounter Note patient electronically requesting refills as follows: Last seen 09/03/23 . Last refill 08/19/23 . Requested Prescriptions Pending Prescriptions Disp Refills gabapentin (NEURONTIN) 300 mg capsule 150 capsule 0 Sig: TAKE 2 CAPSULES BY MOUTH EVERY MORNING AND 3 CAPSULES AT BEDTIME FOR 30 DAYS. Strength: 300 mg Please review and advise. Precious Lacy MA [facility] 09-20-2023 Miscellaneous Notes patient electronically requesting refills as follows: Last seen 09/03/23 . Last refill 08/19/23 . Requested Prescriptions Pending Prescriptions Disp Refills gabapentin (NEURONTIN) 300 mg capsule 150 capsule 0 Sig: TAKE 2 CAPSULES BY MOUTH EVERY MORNING AND 3 CAPSULES AT BEDTIME FOR 30 DAYS. Strength: 300 mg Please review and advise. Precious Lacy MA documented in this encounter [facility] 09-10-2023 Telephone encounter Note Pharmacy comment: REQUEST FOR 90 DAYS PRESCRIPTION. DX Code Needed. [facility] 09-10-2023 Miscellaneous Notes Pharmacy comment: REQUEST FOR 90 DAYS PRESCRIPTION. DX Code Needed. documented in this encounter [facility] 09-09-2023 Telephone encounter Note EPIC down so could not put in orders. Needs PFTs at [place] now and chest CT at [place] in one year [facility] 09-09-2023 Miscellaneous Notes EPIC down so could not put in orders. Needs PFTs at [place] now and chest CT at [place] in one year documented in this encounter [facility] 09-09-2023 History of Presen t illness Narrative Images from the original note were not included. . Respiratory [place] Note Patient name: Mars Peterson PCP: Alam Gill APRN.TAG MACHINE OPERATOR CC: Follow-up chest CT HPI: Mars Peterson 68 year old male former 80 pack year smoker, quitting 2001 with PMH significant for obesity, CAD s/p CABG, CHF, HTN, PAD, s/p right BKA, neuropathy, asthma with mild COPD, ILD and lung nodule. Current therapy with Trelegy Ellipta. He presents today for follow-up after his most recent chest CT. He has stable interstitial lung disease without progression. Interfissural nodule 7 mm and stable. He has no new respiratory symptoms today. He continues to have dyspnea on exertion. He denies chronic cough, sputum production, chest pain or wheezing. He has not recently been hospitalized. He has not required supplemental oxygen. He is compliant with usage of his Trelegy Ellipta. He has not had any ill side effects such as palpitations, tremors or thrush. DATA: PFT 11/2022: Review pulmonary function test show combined obstruction and restriction Labs: Component Ref Range & Units 5 mo ago Alpha 1 Antitrypsin 90 - 200 mg/dL 142 Imaging / Diagnostic Studies: DATE OF EXAM: May 20 2023 5:17PM [facility] 0541 - CT CHEST WO IVCON / PROCEDURE REASON: Lung nodules Comparison: 12/10/2022 RESULT: Lines, tubes, and devices: None. Bones and soft tissues: No aggressive osseous lesions. Status post sternotomy. Upper abdomen: No abnormality in the imaged upper abdomen. Lower neck: Unremarkable thyroid. Lymph nodes: No enlarged lymph nodes. Mediastinum: Small hiatal hernia. Heart, pericardium, and thoracic vessels: Normal caliber thoracic aorta and main pulmonary artery. Moderate to severe atherosclerotic calcification. Borderline cardiomegaly. Mitral annular calcification. Unchanged myocardial fat deposition along the left ventricular free wall. No pericardial effusion or thickening. Status post CABG with severe ione coronary artery atherosclerotic calcifications are noted, although the study is not optimized for coronary assessment. Pleural space: No pleural effusion or thickening. Airways and lung parenchyma: Adherent debris along the left lateral wall of the mid and lower thoracic trachea. Diffuse bronchial wall thickening. Unchanged subpleural reticulation, traction bronchiectasis most pronounced in the right upper lobe, medial left upper lobe, and bilateral posterior lower lobes. No definite honeycombing. Mild upper lung predominant centrilobular emphysema. No new or enlarging nodules. A triangular 7 mm nodule along the minor fissure (series 3 image 95) is unchanged, as is a 6 mm nodule along the minor fissure (series 3 image 92). IMPRESSION: No new or enlarging lung nodules. Multiple subcentimeter nodules are unchanged since August 2022. CT follow-up is recommended in 12 months. Unchanged interstitial lung disease. I personally reviewed the images which show stable pulmonary fibrosis and stable pulmonary nodules. 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 DJD (degenerative joint disease) Essential hypertension Heart attack ([facility]) 1999 States his previous animal trainer told him he had a heart attack based on EKG (in [place]) Neuropathy Osteomyelitis of foot ([facility]) Peripheral vascular disease ([facility]) S/P CABG (coronary artery bypass graft) Umbilical hernia ALLERGIES Allergen Reactions Animal Dander Other: See Comments Anything with fur Seasonal Allergies Other: See Comments Stuffy nose, headaches colestipol (COLESTID) 1 gram tablet Take 1 tablet by mouth two times a day. clopidogrel (PLAVIX) 75 mg tablet take 1 tablet by mouth every day isosorbide mononitrate ER (IMDUR) 30 mg 24 hr tablet TAKE 1 TABLET BY MOUTH EVERY DAY gabapentin (NEURONTIN) 300 mg capsule TAKE 2 CAPSULES BY MOUTH EVERY MORNING AND 3 CAPSULES AT BEDTIME FOR 30 DAYS. Strength: 300 mg hydrOXYzine HCl (ATARAX) 25 mg tablet take 1 tablet by mouth four times a day metoprolol succinate ER (TOPROL XL) 25 mg 24 hr tablet take 1 tablet by mouth every day nitroglycerin sublingual (NITROSTAT) 0.4 mg SL tablet Dissolve 1 tablet under the tongue every 5 minutes as needed for chest pain. rosuvastatin (CRESTOR) 20 mg tablet Take 1 tablet by mouth daily at bedtime. traZODone (DESYREL) 100 mg tablet TAKE 2 TABLETS BY MOUTH DAILY AT BEDTIME pantoprazole DR (PROTONIX) 40 mg tablet take 1 tablet by mouth every day furosemide (LASIX) 40 mg tablet Take 1 tablet by mouth three times a week. lisinopril (ZESTRIL) 10 mg tablet take 1 tablet by mouth every day psyllium husk (METAMUCIL) 0.4 gram cap Take by mouth. albuterol sulfate 90 mcg/actuation aebs Inhale 1-2 Puffs as instructed every 4 hours as needed for wheezing/shortness of breath. fluticasone (FLONASE) 50 mcg/actuation nasal spray SPRAY 1 SPRAY INTO EACH NOSTRIL EVERY DAY qpvgfimgvrv-pjnufakax-hntsvrju (TRELEGY ELLIPTA) 200-62.5-25 mcg inhalation powder Inhale 1 Puff as instructed once daily. ezetimibe (ZETIA) 10 mg tablet Take 1 tablet by mouth once daily. escitalopram oxalate (LEXAPRO) 20 mg tablet Take 1 tablet by mouth once daily. sodium chloride 0.65 % nasal spray Use 1 Jaffrey in the nose as needed. Lactobacillus acidophilus (PROBIOTIC) 10 billion cell cap Take 1 capsule by mouth once daily. acetaminophen (TYLENOL EXTRA STRENGTH) 500 mg tablet Take 2 tablets by mouth every 8 hours as needed for pain. FOR PAIN. Zinc 50 mg tab Take 50 mg by mouth once daily. aspirin, enteric coated (ASPIRIN, ENTERIC COATED) 81 mg EC tablet Take 81 mg by mouth once daily. ascorbic acid, vitamin C, (VITAMIN C) 500 mg tablet Take 500 mg by mouth once daily. multivit-min/folic/vit K/lycop (ONE-A-DAY MEN'S MULTIVITAMIN ORAL) Take by mouth once daily. diphenoxylate-atropine (LOMOTIL) 2.5-0.025 mg per tablet Take 2 tablets by mouth before meals and at bedtime for 7 days. Stop once diarrhea resolves. (Patient not taking: Reported on 09/09/2023) Social History Tobacco Use Smoking status: Former Packs/day: 2.00 Years: 40.00 Additional pack years: 0.00 Total pack years: 80.00 Types: Cigarettes Quit date: 05/13/2001 Years since quittin.3 Smokeless tobacco: Former Types: Chew Vaping Use Vaping Use: Never used Substance Use Topics Alcohol use: Yes Comment: Occasional Drug use: Never FAMILY HISTORY Problem Relation Age of Onset Ovarian cancer Mother other (afib) Mother COPD Mother Heart Father heart attack other (Chronic oxygen) Father other (bladder cancer) Maternal Aunt Cancer Maternal Aunt Cancer Maternal Uncle Heart Paternal Uncle Leukemia Paternal Uncle Colon Cancer No Family History PAST SURGICAL HISTORY Procedure Laterality Date BACK SURGERY HX 2017 CABG (1) VEIN GRAFT & ARTERIAL GRAFT 2001 CABG x4 COLONOSCOPY 2007 FINGER AMPUTATION (SPECIFY DIGIT) HX HIP SURGERY HX 2000 1999, 2019 Replacement Right and left LEG AMPUTATION HX Right 2018 PAST SURGICAL HISTORY OF coccyx REMV CATARACT EXTRACAP,INSERT LENS Bilateral PMH, Social history, family history and surgical history reviewed and updated in EMR REVIEW OF SYSTEMS: CONSTITUTIONAL: No fevers, chills, nightsweats, unintended weight loss or weight gain HEENT: Denies nasal congestion/sinus symptoms. Hard of hearing CARDIOVASCULAR: No chest pain, palpitations, orthopnea, PND, edema. PULM: See HPI GI: No dysphagia/odynophagia, problematic reflux PSY: No concerns regarding depression, anxiety INTEGUMENTARY: No new skin changes or rashes PHYSICAL EXAMINATION: BP 138/78 Pulse 70 Temp 98.4 Resp 16 Wt 273 lb (123.8kg) SpO2 93% General Appearance: Obese male in wheelchair. Skin: Skin color, texture, turgor normal, no suspicious rashes or lesions. Head: Normocephalic, no masses, lesions, tenderness or abnormalities. Eyes: Sclera, conjunctiva normal. Oropharynx: No oral lesions or thrush. Neck: No JVD, no masses, no adenopathy. Lungs: Not labored, normal to percussion, no wheezes or crackles. Heart: RRR, no murmur. Extremities: Artificial limb right leg, left leg, no edema, no clubbing. Assessment/Plan: ILD -Stable pulmonary fibrosis. Pattern not consistent with UIP/IPF. Has significant occupational exposure -Continue surveillance with PFTs and imaging -Needs updated pulmonary function testing Lung nodule -Stable. Interfissural location consistent with intrapulmonary lymph node -Repeat CT 1 year COPD, mild -See #1 -Former [id number] smoker having quit in 2001. Does not qualify for lung cancer screening program based on duration of his smoking cessation -Continue Trelegy Ellipta -Refilled prescriptions Class 2 obesity -BMI 36 -Weight loss advised Francisco Patel MD [facility] [place] documented in this encounter [facility] 09-03-2023 Nurse Note Ambulatory Ear Lavage Pre-treatment: No pre-treatment Treatment: Both ears Equipment and Irrigation solution and Volume used: Single use syringe with single use irrigation tip Return flow appearance: Shar Patient tolerated procedure: yes Tympanic membrane assessment: Tympanic membrane assessed by LIP pre and post procedure Priya Pedersen MA [facility] 09-03-2023 Nurse Note Ambulatory Ear Lavage Pre-treatment: No pre-treatment Treatment: Both ears Equipment and Irrigation solution and Volume used: Single use syringe with single use irrigation tip Return flow appearance: Shar Patient tolerated procedure: yes Tympanic membrane assessment: Tympanic membrane assessed by LIP pre and post procedure Priya Pedersen MA documented in this encounter [facility] 09-03-2023 Instructions Alma Gill APRN.TAG MACHINE OPERATOR - 09/03/2023 3:59 PM EDT Low FODMAP Diet What does FODMAP stand for? Fermentable Oligosaccharides (oligo - 'few', saccharide - 'sugar') Disaccharides (two sugars) Monosaccharides (one sugar) And Polyols (sugar alcohols) FODMAPs are a type of carbohydrate, or sugar found in certain foods. Carbohydrates give us energy, along with fat and protein. People with irritable bowel syndrome (IBS), a slow moving gut, poor other bowel disorder may not tolerate foods with FODMAPS. This is because FODMAPS are not easily absorbed by the bowel. Symptoms of FODMAP intolerance include gas, abdominal discomfort, distention, bloating, fullness, nausea, and/or pain after eating foods containing FODMAPS. High FODMAP Foods to avoid/reduce Vegetables and Legumes Garlic - avoid entirely if possible (Includes garlic salt, garlic powder) Onions - avoid entirely if possible (Includes onion powder, small picked onions Artichoke Asparagus Baked beans Bananas, ripe Beetroot, fresh Black beans Black eyed peas Broad beans Butter beans Cassava Cauliflower Celery - greater than 5cm of stalk Cho cho Choko Falafel Fermented cabbage e.g. sauerkraut Haricot beans Kidney beans Cuevas beans Heriberto bulb Tout Mixed vegetables Mung beans Mushrooms Peas, sugar snap Pickled vegetables Red kidney beans Rehan Cabbage Soy beans / soya beans Split peas Scallions / spring onions (bulb / white part) Shallots Taro Drinks and Protein Powders Beer - if drinking more than one bottle Coconut water Cordial, apple and raspberry with 50-100% real juice Cordial, orange with 25-50% real juice Fruit and herbal teas with apple added Fruit juices in large quantities Fruit juices made of apple, pear, allie Kombucha [place] juice in quantities over 100ml Rum Sodas containing High Fructose [place] Syrup (HFCS) Soy milk made with soy beans - commonly found in [facility] Sports drinks Tea: Black tea with added soy milk Nick tea, strong Dandelion tea, strong Fennel tea Chamomile tea Herbal tea, strong Oolong tea Wine - if drinking more than one glass Whey protein, concentrate unless lactose free Whey protein, hydrolyzed unless lactose free Fruit - can contain high fructose Apples Apricots Avocado Blackberries Blackcurrants Boysenberry Cherries Currants Custard apple Dates Feijoa Figs Goji berries Grapefruit Guava, unripe Lychee [place] Nectarines Paw paw, dried Peaches Pears Persimmon Pineapple, dried Plums Pomegranate Prunes Raisins Sea buckthorns Sultanas [place] Tinned fruit in apple / pear juice Watermelon Condiments, Dips, Sweets, Sweeteners and Spreads Agave Caviar dip Fructose Fruit bar Gravy, if it contains onion High fructose corn syrup (HFCS) Hummus / houmous Honey Jam, mixed berries Jam, strawberry, if contains HFCS Pesto sauce Quince paste Relish / vegetable pickle Stock cubes Sugar free sweets containing polyols - usually ending in -ol or isomalt Sweeteners: Inulin Isomalt Maltitol Mannitol Sorbitol Xylitol Tahini paste Tzatziki dip Dairy Foods Buttermilk Cheese, cream Cheese, Halmoumi Cheese, ricotta Cream Custard Gelato Ice cream Kefir Milk: Cow milk Goat milk Evaporated milk Sheep s milk Sour cream Yoghurt Cereals, Grains, Breads, Biscuits, Pasta, Nuts and Cakes Wheat containing products such as (be sure to check labels): Biscuits including chocolate chip biscuits Bread, wheat - over 1 slice Breadcrumbs Cakes Cereal bar, wheat based Croissants Crumpets Egg noodles Muffins Pastries Pasta, wheat over 1/2 cup cooked Udon noodles Wheat bran Wheat cereals Wheat flour Wheat noodles Wheat rolls Wheatgerm Rosenberg meal Amaranth flour Barley including flour Bran cereals Bread: Granary bread Multigrain bread Naan Oatmeal bread Pumpernickel bread Roti Sourdough with kamut Cashews Cous cous Einkorn flour Freekeh Gnocchi Granola bar Muesli cereal Muesli bar Pistachios [place] crispbread [place] Spelt flour Meats, Poultry and Meat Substitutes Chorizo Sausages documented in this encounter [facility] 09-03-2023 History of Presen t illness Narrative CHIEF COMPLAINT: Mars Peterson is a 68 year old male who presents today with his for routine follow up. I reviewed past medical, surgical, social, and family histories today and updated chart. Allergies, chronic medications, and supplements were also reviewed. Their primary concern for him today is the persistent diarrhea. He has had diarrhea since the end of May. A colonoscopy was attempted last year but could not be completed due to incomplete emptying. He is scheduled on October [address] Lee. He will use Golytely this time. He is still having diarrhea multiple times a day, describes it as "brown water". He has tried multiple OTC treatments including Imodium, Kaopectate without improvement. He has also tried Lomotil and has been taking Metamucil daily. He occasionally has lower abdominal pain but can't say if it occurs before a BM. He does have a lot of gas and flatulence. He states he has a family history of diverticulosis. His thought the diarrhea may have started once he was switched from Priolsec to Protonix but the Prilosec has an interaction with his Plavix so he cannot switch back. He has had an EGD and it was "good". He follows with Dr. Fatima with cardiology- checking lipid panel in October [place] was normal The history is provided by the patient. No consumer relations complaint clerk was used. 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 DJD (degenerative joint disease) Essential hypertension Heart attack ([facility]) 1999 States his previous animal trainer told him he had a heart attack based on EKG (in [place]) Neuropathy Osteomyelitis of foot ([facility]) Peripheral vascular disease ([facility]) S/P CABG (coronary artery bypass graft) Umbilical hernia PAST SURGICAL HISTORY Procedure Laterality Date BACK SURGERY HX 2017 CABG (1) VEIN GRAFT & ARTERIAL GRAFT 2001 CABG x4 COLONOSCOPY 2006 FINGER AMPUTATION (SPECIFY DIGIT) HX HIP SURGERY HX 1999 1999, 2018 Replacement Right and left LEG AMPUTATION HX Right 2018 PAST SURGICAL HISTORY OF coccyx REMV CATARACT EXTRACAP,INSERT LENS Bilateral Social History Tobacco Use Smoking status: Former Packs/day: 2.00 Years: 40.00 Additional pack years: 0.00 Total pack years: 80.00 Types: Cigarettes Quit date: 05/13/2001 Years since quittin.3 Smokeless tobacco: Former Types: Chew Vaping Use Vaping Use: Never used Substance Use Topics Alcohol use: Yes Comment: Occasional Drug use: Never ALLERGIES Allergen Reactions Animal Dander Other: See Comments Anything with fur Seasonal Allergies Other: See Comments Stuffy nose, headaches Family History Problem Relation Age of Onset Ovarian cancer Mother other (afib) Mother COPD Mother Heart Father heart attack other (Chronic oxygen) Father other (bladder cancer) Maternal Aunt Cancer Maternal Aunt Cancer Maternal Uncle Heart Paternal Uncle Leukemia Paternal Uncle Colon Cancer No Family History Current Outpatient Medications Medication Sig Dispense Refill clopidogrel (PLAVIX) 75 mg tablet take 1 tablet by mouth every day 90 tablet 1 isosorbide mononitrate ER (IMDUR) 30 mg 24 hr tablet TAKE 1 TABLET BY MOUTH EVERY DAY 90 tablet 1 gabapentin (NEURONTIN) 300 mg capsule TAKE 2 CAPSULES BY MOUTH EVERY MORNING AND 3 CAPSULES AT BEDTIME FOR 30 DAYS. Strength: 300 mg 150 capsule 0 hydrOXYzine HCl (ATARAX) 25 mg tablet take 1 tablet by mouth four times a day 360 tablet 1 metoprolol succinate ER (TOPROL XL) 25 mg 24 hr tablet take 1 tablet by mouth every day 90 tablet 1 nitroglycerin sublingual (NITROSTAT) 0.4 mg SL tablet Dissolve 1 tablet under the tongue every 5 minutes as needed for chest pain. 25 tablet 0 rosuvastatin (CRESTOR) 20 mg tablet Take 1 tablet by mouth daily at bedtime. 90 tablet 3 diphenoxylate-atropine (LOMOTIL) 2.5-0.025 mg per tablet Take 2 tablets by mouth before meals and at bedtime for 7 days. Stop once diarrhea resolves. (Patient not taking: Reported on 09/09/2023) 56 tablet 0 traZODone (DESYREL) 100 mg tablet TAKE 2 TABLETS BY MOUTH DAILY AT BEDTIME [address] (PROTONIX) 40 mg tablet take 1 tablet by mouth every day 90 tablet 1 furosemide (LASIX) 40 mg tablet Take 1 tablet by mouth three times a week. 36 tablet 1 lisinopril (ZESTRIL) 10 mg tablet take 1 tablet by mouth every day 90 tablet 1 psyllium husk (METAMUCIL) 0.4 gram cap Take by mouth. albuterol sulfate 90 mcg/actuation aebs Inhale 1-2 Puffs as instructed every 4 hours as needed for wheezing/shortness of breath. 1 Each 2 ezetimibe (ZETIA) 10 mg tablet Take 1 tablet by mouth once daily. 90 tablet 3 escitalopram oxalate (LEXAPRO) 20 mg tablet Take 1 tablet by mouth once daily. 90 tablet 1 sodium chloride 0.65 % nasal spray Use 1 Jaffrey in the nose as needed. 50 mL 2 Lactobacillus acidophilus (PROBIOTIC) 10 billion cell cap Take 1 capsule by mouth once daily. acetaminophen (TYLENOL EXTRA STRENGTH) 500 mg tablet Take 2 tablets by mouth every 8 hours as needed for pain. FOR PAIN. 90 tablet 0 Zinc 50 mg tab Take 50 mg by mouth once daily. aspirin, enteric coated (ASPIRIN, ENTERIC COATED) 81 mg EC tablet Take 81 mg by mouth once daily. ascorbic acid, vitamin C, (VITAMIN C) 500 mg tablet Take 500 mg by mouth once daily. multivit-min/folic/vit K/lycop (ONE-A-DAY MEN'S MULTIVITAMIN ORAL) Take by mouth once daily. fluticasone (FLONASE) 50 mcg/actuation nasal spray SPRAY 1 SPRAY INTO EACH NOSTRIL EVERY DAY 24 mL 2 eohuubimobv-magidzcnq-bgwqdcyk (TRELEGY ELLIPTA) 200-62.5-25 mcg inhalation powder Inhale 1 Puff as instructed once daily. 1 Each 11 colestipol (COLESTID) 1 gram tablet Take 1 tablet by mouth two times a day. 60 tablet 1 No current facility-administered medications for this visit. Review of Systems Constitutional: Negative for appetite change, chills, diaphoresis, fatigue and fever. Respiratory: Positive for shortness of breath (not new). Negative for cough, chest tightness and wheezing. Cardiovascular: Negative for chest pain and leg swelling. Gastrointestinal: Positive for abdominal distention, abdominal pain and diarrhea. Negative for blood in stool, constipation, nausea, rectal pain and vomiting. Genitourinary: Positive for frequency and urgency. Musculoskeletal: Positive for gait problem. Skin: Negative. Neurological: Positive for weakness. BP 126/72 Pulse 54 Temp 97.4 Resp 16 SpO2 96% Physical Exam Vitals and nursing note reviewed. Constitutional: Appearance: He is obese. HENT: Right Ear: Ear canal and external ear normal. Decreased hearing noted. There is impacted cerumen. Left Ear: Ear canal and external ear normal. Decreased hearing noted. There is impacted cerumen. Ears: Comments: Bilateral canals flushed out by MA. Large amount of cerumen removed. Patient tolerated well. TMs visualized without evidence of infection. Mouth/Throat: Mouth: Mucous membranes are moist. Eyes: Pupils: Pupils are equal, round, and reactive to light. Cardiovascular: Rate and Rhythm: Regular rhythm. Bradycardia present. Heart sounds: Normal heart sounds, S1 normal and S2 normal. Pulmonary: Effort: Pulmonary effort is normal. Breath sounds: Normal breath sounds. Abdominal: General: Bowel sounds are normal. There is no distension. Palpations: Abdomen is soft. Tenderness: There is no abdominal tenderness. Musculoskeletal: Right Lower Extremity: Right leg is amputated below knee. Skin: General: Skin is warm and dry. Neurological: Mental Status: He is alert and oriented to person, place, and time. Psychiatric: Mood and Affect: Mood normal. Behavior: Behavior normal. Cognition and Memory: Cognition normal. No visits with results within 1 Day(s) from this visit. Latest known visit with results is: Hospital Outpatient Visit on 06/20/2023 Component Date Value Ref Range Status Case Report 06/20/2023 Final Value:Surgical Pathology Report Case: [id number] Authorizing Provider: David Lee MD Collected: 06/20/2023 08:16 AM Ordering Location: Ambulatory Surgery Received: 06/20/2023 09:27 AM Pathologist: Shlomo Orlando MD Specimens: A) - DUODENUM BIOPSY B) - ANTRUM (STOMACH) BIOPSY, Antral bx h/h C) - ESOPHAGUS LOWER BIOPSY, Distal D) - ESOPHAGUS MID BIOPSY FINAL DIAGNOSIS 06/20/2023 Final Value:This result contains rich text formatting which cannot be displayed here. Gross Description 06/20/2023 Final Value:This result contains rich text formatting which cannot be displayed here. Performing Lab 06/20/2023 Final Value:This result contains rich text formatting which cannot be displayed here. Latest Ref Rng 08/21/2022 11/08/2022 02/06/2023 03/14/2023 Protein, Total 6.3 - 8.0 g/dL 7.8 Albumin 3.9 - 4.9 g/dL 4.1 Calcium 8.5 - 10.2 mg/dL 9.4 Bilirubin, Total 0.2 - 1.3 mg/dL 0.5 Alkaline Phosphatase 38 - 113 U/L 59 AST 14 - 40 U/L 18 ALT 10 - 54 U/L 10 Glucose 74 - 99 mg/dL 103 (H) BUN 9 - 24 mg/dL 11 Creatinine 0.73 - 1.22 mg/dL 1.18 Sodium 136 - 144 mmol/L 129 (L) Potassium 3.7 - 5.1 mmol/L 5.0 Chloride 97 - 105 mmol/L 93 (L) CO2 22 - 30 mmol/L 27 Anion Gap 9 - 18 mmol/L 9 eGFR >=60 mL/min/1.73m 67 WBC 3.70 - 11.00 k/uL 6.51 RBC 4.20 - 6.00 m/uL 5.15 Hemoglobin 13.0 - 17.0 g/dL 13.8 Hematocrit 39.0 - 51.0 % 44.5 MCV 80.0 - 100.0 fL 86.4 MCH 26.0 - 34.0 pg 26.8 MCHC 30.5 - 36.0 g/dL 31.0 RDW-CV 11.5 - 15.0 % 12.9 Platelet Count 150 - 400 k/uL 215 MPV 9.0 - 12.7 fL 9.6 Cholesterol, Total <200 mg/dL 143 Triglyceride <150 mg/dL 101 HDL Cholesterol >39 mg/dL 44 Non HDL Cholesterol <130 mg/dL 99 Fasting Time hrs 12 VLDL Cholesterol <30 mg/dL 20 TC:HDL Ratio <5.10 3.25 LDL Cholesterol <100 mg/dL 79 LDL:HDL Ratio <2.54 1.80 Shigella spp./Enteroinvasive E.coli DNA Not Detected Not detected Campylobacter jejuni/coli DNA Not Detected Not detected Shiga toxin-producing gene(s) Not Detected Not detected Salmonella spp. DNA Not Detected Not detected NT Pro BNP <125 pg/mL 821 (H) 514 (H) TSH 0.270 - 4.200 mIU/L 2.620 Occult Blood, Stool Negative Positive ! C. difficile PCR Negative for C. difficile toxin by PCR Negative for C. difficile toxin by PCR Legend: (H) High ! Abnormal (L) Low ASSESSMENT/PLAN: 1. Diarrhea, unspecified type - ICD9: 787.91, ICD10: R19.7 (primary diagnosis) - Has tried multiple OTC remedies. Has also tried Lomotil without improvement. He is scheduled for colonoscopy in October. - Trial of Colestipol - COLESTIPOL 1 GRAM TABLET 2. Bilateral impacted cerumen - ICD9: 380.4, ICD10: H61.23 - AMBULATORY EAR LAVAGE/IRRIGATION 3. Need for shingles vaccine - ICD9: V04.89, ICD10: Z23 - VARICELLA-ZOSTER GLYCOE VACC-AS01B ADJ(PF) 50 MCG/0.5 ML IM SUSP, KIT New medication(s) prescribed today: Yes: Colestipol. Discussed new medication dosage, usage, goals of therapy, and side effects. Patient has been apprised of any potential drug interactions to be aware of. Patient expresses understanding. Counseling completed in adopting health behaviors such as avoiding excessive alcohol use, avoid tobacco use, improve nutrition, and engage in physical activities. Copy of written care plan, clinical summary, treatment plan, new medications, goals, and self management requirements were given to patient. Alma Gill APRN.EVANS documented in this encounter [facility] 09-03-2023 History of Presen t illness Narrative POPULATION HEALTH NAVIGATION OUTREACH Action/FYI PT will schedule on their own Reason for Outreach Care Gap/HCC or Scheduling Wellness Visits Care Gaps due: TOMASA Patient Contacted: Spoke to patient/parent/or legal guardian Patient identified by name and : Yes Care Gap/HCC/Scheduling Wellness actions taken: Patient declined: Would like to manage scheduling their own appointments Navigation Signature: Carlyn Dyson September 03, 2023 11:18 AM documented in this encounter [facility] 08-30-2023 History of Presen t illness Narrative POPULATION HEALTH NAVIGATION OUTREACH Action/FYI lvm Reason for Outreach Care Gap/HCC or Scheduling Wellness Visits Care Gaps due: Follow-up Appointment Patient Contacted: Unable or unnecessary to reach patient: Left message Navigation Signature: Carlyn Dyson August 30, 2023 11:57 AM documented in this encounter [facility] 08-29-2023 History of Presen t illness Narrative Images from the original note were not included. Heart, Vascular [facility] Thor[facility] [place] DEPARTMENT OF VASCULAR SURGERY OUTPATIENT VISIT DATE August 29, 2023 OUTPATIENT VISIT TYPE CONSULTATION SERVICE DATE: 08/29/2023 SERVICE TIME: 2:21 PM PRIMARY CARE PHYSICIAN: Alma Gill APRN.TAG MACHINE OPERATOR REFERRING PROVIDER: SELF Consult requested for an opinion regarding the evaluation and treatment of the above. My final impression and recommendations will be communicated back to the requesting physician by way of the shared medical record or letter via [place] mail. CHIEF COMPLAINT: Patient presents with: New Patient History of Present Illness: Patient is a 68 year old White male presenting for consultation, evaluation and possible treatment of right below the knee amputation in 2018 in [facility] due to peripheral arterial disease with osteomyelitis and gangrene. PAIN ASSESSMENT: PAIN EVALUATION No data found in the last 1 encounters. 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 DJD (degenerative joint disease) Essential hypertension Heart attack ([facility]) 1999 States his previous animal trainer told him he had a heart attack based on EKG (in [place]) Neuropathy Osteomyelitis of foot ([facility]) Peripheral vascular disease ([facility]) S/P CABG (coronary artery bypass graft) Umbilical hernia PAST SURGICAL HISTORY Procedure Laterality Date BACK SURGERY HX 2017 CABG (1) VEIN GRAFT & ARTERIAL GRAFT 2001 CABG x4 COLONOSCOPY 2007 FINGER AMPUTATION (SPECIFY DIGIT) HX HIP SURGERY HX 2000 1999, 2019 Replacement Right and left LEG AMPUTATION HX Right 2018 PAST SURGICAL HISTORY OF coccyx REMV CATARACT EXTRACAP,INSERT LENS Bilateral SOCIAL HISTORY: Social History Tobacco Use Smoking status: Former Packs/day: 2.00 Years: 40.00 Additional pack years: 0.00 Total pack years: 80.00 Types: Cigarettes Quit date: 05/13/2001 Years since quittin.3 Smokeless tobacco: Former Types: Chew Vaping Use Vaping Use: Never used Substance Use Topics Alcohol use: Yes Comment: Occasional Drug use: Never FAMILY HISTORY Problem Relation Age of Onset Ovarian cancer Mother other (afib) Mother COPD Mother Heart Father heart attack other (Chronic oxygen) Father other (bladder cancer) Maternal Aunt Cancer Maternal Aunt Cancer Maternal Uncle Heart Paternal Uncle Leukemia Paternal Uncle Colon Cancer No Family History MEDICATIONS: clopidogrel (PLAVIX) 75 mg tablet take 1 tablet by mouth every day isosorbide mononitrate ER (IMDUR) 30 mg 24 hr tablet TAKE 1 TABLET BY MOUTH EVERY DAY gabapentin (NEURONTIN) 300 mg capsule TAKE 2 CAPSULES BY MOUTH EVERY MORNING AND 3 CAPSULES AT BEDTIME FOR 30 DAYS. Strength: 300 mg hydrOXYzine HCl (ATARAX) 25 mg tablet take 1 tablet by mouth four times a day metoprolol succinate ER (TOPROL XL) 25 mg 24 hr tablet take 1 tablet by mouth every day nitroglycerin sublingual (NITROSTAT) 0.4 mg SL tablet Dissolve 1 tablet under the tongue every 5 minutes as needed for chest pain. triamcinolone acetonide (KENALOG) 0.1 % cream Apply to affected area two times a day. rosuvastatin (CRESTOR) 20 mg tablet Take 1 tablet by mouth daily at bedtime. traZODone (DESYREL) 100 mg tablet TAKE 2 TABLETS BY MOUTH DAILY AT BEDTIME pantoprazole DR (PROTONIX) 40 mg tablet take 1 tablet by mouth every day furosemide (LASIX) 40 mg tablet Take 1 tablet by mouth three times a week. lisinopril (ZESTRIL) 10 mg tablet take 1 tablet by mouth every day psyllium husk (METAMUCIL) 0.4 gram cap Take by mouth. albuterol sulfate 90 mcg/actuation aebs Inhale 1-2 Puffs as instructed every 4 hours as needed for wheezing/shortness of breath. fluticasone (FLONASE) 50 mcg/actuation nasal spray SPRAY 1 SPRAY INTO EACH NOSTRIL EVERY DAY nxqtjmpqscj-dmezupzhd-yyjfuwhm (TRELEGY ELLIPTA) 200-62.5-25 mcg inhalation powder Inhale 1 Puff as instructed once daily. ezetimibe (ZETIA) 10 mg tablet Take 1 tablet by mouth once daily. escitalopram oxalate (LEXAPRO) 20 mg tablet Take 1 tablet by mouth once daily. sodium chloride 0.65 % nasal spray Use 1 Jaffrey in the nose as needed. Lactobacillus acidophilus (PROBIOTIC) 10 billion cell cap Take 1 capsule by mouth once daily. acetaminophen (TYLENOL EXTRA STRENGTH) 500 mg tablet Take 2 tablets by mouth every 8 hours as needed for pain. FOR PAIN. Zinc 50 mg tab Take 50 mg by mouth once daily. aspirin, enteric coated (ASPIRIN, ENTERIC COATED) 81 mg EC tablet Take 81 mg by mouth once daily. ascorbic acid, vitamin C, (VITAMIN C) 500 mg tablet Take 500 mg by mouth once daily. multivit-min/folic/vit K/lycop (ONE-A-DAY MEN'S MULTIVITAMIN ORAL) Take by mouth once daily. diphenoxylate-atropine (LOMOTIL) 2.5-0.025 mg per tablet Take 2 tablets by mouth before meals and at bedtime for 7 days. Stop once diarrhea resolves. ALLERGIES: ALLERGIES Allergen Reactions Animal Dander Other: See Comments Anything with fur Seasonal Allergies Other: See Comments Stuffy nose, headaches REVIEW of SYSTEMS: Constitutional: No weight loss, malaise or fevers. HEENT: Negative for nasal discharge or nose bleeds, Head Positive for headache , Eyes Positive for recent change in vision , Ears Positive for hearing loss Respiratory: Negative for cough and wheezing and Positive for shortness of breath on exertion Cardiovascular: Negative for chest pain, leg swelling or palpitations Gatrointestinal: Positive for abdominal discomfort Genitourinary: No difficulty urination, nocturia >1 times per night or hematuria Musculoskeletal: Positive for back pain, joint swelling, joint pain, and muscle pain Endocrine: Positive for cold intolerance Hematology/Lymphatic: Positive for bruises easily and on blood thinner Neurologic: Negative for syncope, seizures, and paralysis and Positive for tremor Integumentary: Negative for lesions, rash, and itching. PHYSICAL EXAM: VITALS: There were no vitals taken for this visit. General: Alert, oriented, cooperative, healthy appearance Integumentary: Normal color, no rash, no lesions. HEENT: EOM, pupils equal, round and reactive. Cardiovascular: Pulse regular. Lungs: Normal breath sounds, no wheezes or crackles. Abdomen: Not examined Extremities: No deformity, no edema or tenderness, no joint swelling or clubbing. Right BKA Neurological: AAOx3. Normal cognition and motor skills. Vascular: doppler signals Diagnostic tests reviewed for today's visit: Most recent labs Most recent imaging Reviewed PVR report from [place] 2018- Right leg with moderate disease, Left leg normal, with non-compressible vessels Carotid Duplex in 2018- <19% stenosis bilateral ICA IMPRESSION: Mr. Peterson is a 68 year old male with peripheral arterial disease s/p below knee amputation . PLAN and RECOMMENDATIONS: Check PVRs and follow up Referral to podiatry for onychomycosis Continue current blood pressure and cholesterol control Follow up after testing SIGNATURE: Katelynn Knowles DO PATIENT NAME: Mars Peterson DATE: August 29, 2023 TIME: 2:21 PM documented in this encounter [facility] 08-26-2023 Miscellaneous Notes No we can disregard the CT chest follow up. 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 Please advise if this still needs completed. Precious Lacy MA ----- Message from Suzanne Almaguer MA sent at 08/23/2022 11:00 AM EDT ----- Remind pt. Time to recheck CT chest. (Lung nodule) see telephone encounter -mychart 08/23/2022 documented in this encounter [facility] 08-23-2023 Miscellaneous Notes Pharmacy requesting refills as follows: Last Office Visit 09/13/22 NOV 09/03/23. Last Refill 02/28/23. Requested Prescriptions Pending Prescriptions Disp Refills clopidogrel (PLAVIX) 75 mg tablet [Pharmacy Med Name: CLOPIDOGREL 75 MG TABLET] 90 tablet 1 Sig: take 1 tablet by mouth every day Please review and advise. Priya Pedersen MA documented in this encounter [facility] 08-20-2023 Miscellaneous Notes Pharmacy comment: REQUEST FOR 90 DAYS PRESCRIPTION. DX Code Needed. documented in this encounter [facility] 08-19-2023 Miscellaneous Notes pt requesting refills: Last office visit 09/13/2022. Last refill 07/19/2023 nov 09/03/2023 Requested Prescriptions Pending Prescriptions Disp Refills gabapentin (NEURONTIN) 300 mg capsule 150 capsule 0 Sig: TAKE 2 CAPSULES BY MOUTH EVERY MORNING AND 3 CAPSULES AT BEDTIME FOR 30 DAYS. Strength: 300 mg Please review and advise. Suzanne Almaguer MA documented in this encounter [facility] 08-15-2023 Miscellaneous Notes pharmacy electronically requesting refills as follows: Last seen 09/13/22. Last refill 02/15/23 . Next office visit 09/03/23 Requested Prescriptions Pending Prescriptions Disp Refills hydrOXYzine HCl (ATARAX) 25 mg tablet [Pharmacy Med Name: HYDROXYZINE HCL 25 MG TABLET] 360 tablet 1 Sig: take 1 tablet by mouth four times a day Please review and advise. Precious Lacy MA documented in this encounter [facility] 08-06-2023 Miscellaneous Notes TOMMY 07/05/22 Maurice DUMONT not scheduled documented in this encounter [facility] 07-25-2023 Miscellaneous Notes patient electronically requesting refills as follows: Last seen 09/13/22 . Last refill 10/16/22 . No future appointments Requested Prescriptions Pending Prescriptions Disp Refills isosorbide mononitrate ER (IMDUR) 30 mg 24 hr tablet 30 tablet 11 Sig: Take 1 tablet by mouth once daily. Please review and advise. Precious Lacy MA documented in this encounter [facility] 07-22-2023 Instructions Beatrice Sarmiento MD - 07/22/2023 11:29 AM EDT We are changing the Pravastatin to Rosuvastatin 20 mg once per day documented in this encounter [facility] 07-22-2023 History of Presen t illness Narrative Images from the original note were not included. [facility] SE[facility] [address] [id number] OUTPATIENT VISIT DATE 07/22/2023 PRIMARY CARE PHYSICIAN: Alma Gill [address] [place] [id number] HISTORY OF PRESENT ILLNESS: Mr. Peterson is a 68 year old with a history of coronary artery disease and remote coronary bypass grafting, chronic diastolic congestive heart failure, hypertension, dyslipidemia, gastroesophageal reflux disease, peripheral arterial disease with history of right BKA who presents to the office for routine follow-up. Since his last visit, he has been doing well. He has not had symptoms of chest pain or pressure. He denies feelings of palpitations, lightheadedness, dizziness, or syncope. He still has significant unsteadiness due to his BKA. He denies symptoms concerning for CHF including PND and orthopnea. 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 DJD (degenerative joint disease) Essential hypertension Heart attack ([facility]) 1999 States his previous animal trainer told him he had a heart attack based on EKG (in [place]) Neuropathy Osteomyelitis of foot (HCC) Peripheral vascular disease (HCC) S/P CABG (coronary artery bypass graft) Umbilical hernia PAST SURGICAL HISTORY Procedure Laterality Date BACK SURGERY HX 2017 CABG (1) VEIN GRAFT & ARTERIAL GRAFT 2001 CABG x4 COLONOSCOPY 2007 FINGER AMPUTATION (SPECIFY DIGIT) HX HIP SURGERY HX 2000 1999, 2019 Replacement Right and left LEG AMPUTATION HX Right 2018 PAST SURGICAL HISTORY OF coccyx REMV CATARACT EXTRACAP,INSERT LENS Bilateral SOCIAL HISTORY Social History Tobacco Use Smoking status: Former Packs/day: 2.00 Years: 40.00 Additional pack years: 0.00 Total pack years: 80.00 Types: Cigarettes Quit date: 05/13/2001 Years since quittin.2 Smokeless tobacco: Former Types: Chew Vaping Use Vaping Use: Never used Substance Use Topics Alcohol use: Yes Comment: Occasional Drug use: Never FAMILY HISTORY Problem Relation Age of Onset Ovarian cancer Mother other (afib) Mother COPD Mother Heart Father heart attack other (Chronic oxygen) Father other (bladder cancer) Maternal Aunt Cancer Maternal Aunt Cancer Maternal Uncle Heart Paternal Uncle Leukemia Paternal Uncle Colon Cancer No Family History ALLERGIES: ALLERGIES Allergen Reactions Animal Dander Other: See Comments Anything with fur Seasonal Allergies Other: See Comments Stuffy nose, headaches MEDICATIONS: gabapentin (NEURONTIN) 300 mg capsule TAKE 2 CAPSULES BY MOUTH EVERY MORNING AND 3 CAPSULES AT BEDTIME FOR 30 DAYS. Strength: 300 mg traZODone (DESYREL) 100 mg tablet TAKE 2 TABLETS BY MOUTH DAILY AT BEDTIME pantoprazole DR (PROTONIX) 40 mg tablet take 1 tablet by mouth every day furosemide (LASIX) 40 mg tablet Take 1 tablet by mouth three times a week. lisinopril (ZESTRIL) 10 mg tablet take 1 tablet by mouth every day pravastatin (PRAVACHOL) 20 mg tablet Take 1 tablet by mouth daily at bedtime. psyllium husk (METAMUCIL) 0.4 gram cap Take by mouth. albuterol sulfate 90 mcg/actuation aebs Inhale 1-2 Puffs as instructed every 4 hours as needed for wheezing/shortness of breath. fluticasone (FLONASE) 50 mcg/actuation nasal spray SPRAY 1 SPRAY INTO EACH NOSTRIL EVERY DAY iihjyosmvtr-jhgtayerq-cpyqzaoe (TRELEGY ELLIPTA) 200-62.5-25 mcg inhalation powder Inhale 1 Puff as instructed once daily. clopidogrel (PLAVIX) 75 mg tablet take 1 tablet by mouth every day hydrOXYzine HCl (ATARAX) 25 mg tablet TAKE 1 TABLET BY MOUTH FOUR TIMES A DAY metoprolol succinate ER (TOPROL XL) 25 mg 24 hr tablet take 1 tablet by mouth every day ezetimibe (ZETIA) 10 mg tablet Take 1 tablet by mouth once daily. escitalopram oxalate (LEXAPRO) 20 mg tablet Take 1 tablet by mouth once daily. nitroglycerin sublingual (NITROSTAT) 0.4 mg SL tablet Dissolve 1 tablet under the tongue every 5 minutes as needed for chest pain. isosorbide mononitrate ER (IMDUR) 30 mg 24 hr tablet Take 1 tablet by mouth once daily. sodium chloride 0.65 % nasal spray Use 1 Jaffrey in the nose as needed. Lactobacillus acidophilus (PROBIOTIC) 10 billion cell cap Take 1 capsule by mouth once daily. acetaminophen (TYLENOL EXTRA STRENGTH) 500 mg tablet Take 2 tablets by mouth every 8 hours as needed for pain. FOR PAIN. Zinc 50 mg tab Take 50 mg by mouth once daily. aspirin, enteric coated (ASPIRIN, ENTERIC COATED) 81 mg EC tablet Take 81 mg by mouth once daily. ascorbic acid, vitamin C, (VITAMIN C) 500 mg tablet Take 500 mg by mouth once daily. multivit-min/folic/vit K/lycop (ONE-A-DAY MEN'S MULTIVITAMIN ORAL) Take by mouth once daily. diphenoxylate-atropine (LOMOTIL) 2.5-0.025 mg per tablet Take 2 tablets by mouth before meals and at bedtime for 7 days. Stop once diarrhea resolves. REVIEW OF SYSTEMS: Review of Systems Constitutional: Negative for chills, fever, malaise/fatigue and weight loss. HENT: Negative for hearing loss and sore throat. Eyes: Negative for blurred vision and double vision. Respiratory: Negative. Cardiovascular: Negative. Gastrointestinal: Positive for heartburn. Genitourinary: Negative for dysuria, frequency, hematuria and urgency. Musculoskeletal: Negative. Skin: Negative. Neurological: Negative for dizziness, seizures, loss of consciousness, weakness and headaches. Endo/Heme/Allergies: Negative for environmental allergies. Does not bruise/bleed easily. Psychiatric/Behavioral: Negative for depression. PHYSICAL EXAMINATION: BP 147/79 Pulse 59 Wt 277 lb (125.6kg) SpO2 97% General: Pleasant gentleman sitting appears comfortable no apparent distress. He is alert and oriented x3 HEENT: Carotid upstrokes are brisk bilaterally. There are bilateral carotid bruits right greater than left. No JVD. Pulmonary: Lungs are clear no rales, wheezes, rhonchi Cardiovascular: Normal S1, S2 with regular rate and rhythm. No murmurs, rubs, or gallops Extremities: Right BKA noted. Left lower extremity no significant edema. Difficult to palpate distal pulses. CARDIOVASCULAR MEDICINE TESTING: ECG in the office 01/29/2023: Sinus bradycardia with first-degree AV block. No significant ST or T wave changes Cardiac Catheterization/PCI 08/08/2022: Angiography: LEFT MAIN: not imaged LEFT CIRCUMFLEX: Not imaged LEFT ANTERIOR DESCENDING: Not imaged. RIGHT CORONARY ARTERY: Tortuous calcified proximal RCA with multiple lesion in the proximal mid and distal vessle At this point, the procedure was terminated. All diagnostic wires and catheters were removed. PTCA: Complex Multiple inflation with NC balloon . Unable to cross with cutting balloon . Not good anatomy for orbital rotablator due to the angulation. Proximal RCA dissection with JASEN II flow Procedure aborted Will cont brilinta Regadenoson Myoview Stress 06/19/2022: CONCLUSIONS: 1. SPECT Perfusion Study: Abnormal. 2. There is no scintigraphic evidence for inducible ischemia. 3. There is a moderate (10-20%) fixed perfusion defect in the LCX territory. 4. Left ventricle is normal in size. The left ventricle systolic function is normal. 5. This is an intermediate risk scan. Gated Stress IR:3D Gated Rest IR:3D LVEF % 69 64 Echocardiogram 02/20/2023: - The left ventricle is normal in size. There is mild concentric left ventricular hypertrophy. Left ventricular systolic function is normal. EF = 57 5% (2D biplane) Grade I left ventricular diastolic dysfunction. - The right ventricle is normal in size. Right ventricular systolic function is low normal. Tricuspid annular displacement is 2.6 cm. - The left atrial cavity is mildly dilated. Val 35 ml/m . - The right atrial cavity is dilated. - There are no significant valvular abnormalities. - There is no pericardial effusion. - The patient has not had a prior CC echocardiographic exam for comparison. CT Chest 05/20/2023: Heart, pericardium, and thoracic vessels: Normal caliber thoracic aorta and main pulmonary artery. Moderate to severe atherosclerotic calcification. Borderline cardiomegaly. Mitral annular calcification. Unchanged myocardial fat deposition along the left ventricular free wall. No pericardial effusion or thickening. Status post CABG with severe ione coronary artery atherosclerotic calcifications are noted, although the study is not optimized for coronary assessment. I have personally reviewed the Electrocardiogram, Laboratory Testing, Echocardiogram, and Cardiac Catheterization/Percutaneous Coronary Intervention (PCI). IMPRESSION: Mr. Peterson is a 68 year old gentleman with history of remote coronary bypass grafting who did undergone catheterization in July 2022. He was found to have a patent CUEVAS-LAD, SVG-OM, SVG-diagonal. He had an occluded SVG to the RCA. He was subsequently referred for percutaneous coronary intervention of the right coronary artery. The latter was attempted July 2022. He had a resulting dissection of the proximal right coronary artery due to severely calcified diseased vessel. No equipment could be passed past the proximal vessel. The procedure was aborted and patient was treated with medical therapy. 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 He presents the office for routine follow-up. PLAN AND RECOMMENDATIONS: 1. 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 Continue current medical therapy and risk factor modification - COMP METABOLIC PANEL 2. Chronic diastolic congestive heart failure (HCC) - ICD9: 428.32, 428.0, ICD10: I50.32 Well-controlled on current diuretic therapy and low-sodium diet 3. Essential hypertension - ICD9: 401.9, ICD10: I10 Adequate control on current regimen 4. Mixed hyperlipidemia - ICD9: 272.2, ICD10: E78.2 Patient was tolerating pravastatin 20 mg daily. I have started him on Crestor 20 mg daily and continuing Zetia 10 mg daily. Repeat fasting blood work in 3 to 4 months - COMP METABOLIC PANEL - LIPID PANEL BASIC 5. Peripheral vascular disease (HCC) - ICD9: 443.9, ICD10: I73.9 6. SOB (shortness of breath) - ICD9: 786.05, ICD10: R06.02 7. Bilateral carotid artery stenosis - ICD9: 433.10, 433.30, ICD10: I65.23 Follow-up carotid ultrasound is scheduled. Beatrice Sarmiento MD documented in this encounter [facility] 07-18-2023 Miscellaneous Notes Patient requesting refills as follows: Last Office Visit 09/13/22. Last Refill 06/20/23. Requested Prescriptions Pending Prescriptions Disp Refills gabapentin (NEURONTIN) 300 mg capsule 150 capsule 0 Sig: TAKE 2 CAPSULES BY MOUTH EVERY MORNING AND 3 CAPSULES AT BEDTIME FOR 30 DAYS. Strength: 300 mg Please review and advise. Priya Pedersen MA documented in this encounter [facility] 06-27-2023 Miscellaneous Notes Spoke with Joy Sanchez. She will contact John and help get him scheduled with Dr. Lee in [place] and go over Golytle prep. Blanca White New screening colonoscopy order placed. Recommend Golytely and clear liquids for 2 days. Please send patient scheduling information for [place]. Thank you! documented in this encounter [facility] 06-27-2023 Instructions Mone Robertson PA-C - 06/27/2023 6:55 AM EST Images from the original note were not included. Bowel Preparation Instructions for: Golytely, Nulytely, Trilyte or Colyte (polyethylene glycol 3350 and electrolytes) IF YOU DO NOT FOLLOW THESE DIRECTIONS, YOUR COLONOSCOPY WILL BE CANCELLED. Vieyra Instructions: Your bowel must be empty so that your doctor can clearly view your colon. Follow all of the instructions in this handout EXACTLY as they are written. Do NOT eat any solid food the ENTIRE day before your colonoscopy. Drink only clear liquids. Buy your bowel preparation at least 5 days before your colonoscopy. TRANSPORTATION on the Day of Your Exam A responsible person MUST be present with you at Check In prior to your colonoscopy and REMAIN in the endoscopy area until you are discharged. You are NOT ALLOWED to drive, take a taxi or bus, or leave the Endoscopy Center ALONE. If you do not have a responsible certified driver examiner (family member or friend) with you to take you home, your exam cannot be done with sedation and will be cancelled. Please bring a list of all of your current medications, including any Over-the Counter medications with you. Medications If you take insulin, diabetic medications or blood thinners such as Coumadin (warfarin), Plavix (clopidogrel), Ticlid (ticlopidine hydrochloride), Agrylin (anagrelide), Xarelto (Rivaroxaban), Pradaxa (Dabigatran), Eliquis (Apixaban), and Effient (Prasugrel). You MUST call the doctors who orders those medicines for instructions on altering the dosage before your colonoscopy. All other medications should be taken the day of the exam with a sip of water including ASPIRIN. Five (5) Days Before Your Colonoscopy Do NOT take medicines that stop diarrhea - such as Imodium, Kaopectate, or Pepto Bismol. Do NOT take fiber supplements - such as Metamucil, Citrucel, or Perdiem. Do NOT take products that contain iron - such as multi-vitamins (the label lists what is in the products). Do NOT take Vitamin E. Buy the prescription bowel preparation solution at your local pharmacy or drugstore pharmacy. 04/2019 Bowel Preparation Instructions for: Golytely, Nulytely, Trilyte or Colyte (polyethylene glycol 3350 and electrolytes) Three (3) Days Before Your Colonoscopy Do NOT eat high-fiber foods - such as popcorn, beans, seeds (flax, sunflower, quinoa), multigrain bread, nuts, salad/vegetables, or fresh and dried fruit. One (1) Day Before Your Colonoscopy Only drink clear liquids the ENTIRE DAY before your colonoscopy. Do NOT eat any solid foods. Drink at least 8 ounces of clear liquids every hour after waking up. The clear liquids you can drink include: Clear Liquid (NO RED LIQUIDS) DO NOT DRINK Gatorade, Pedialyte or Powerade Clear broth or bouillon Coffee or tea (no milk or non-dairy creamer) Carbonated and non-carbonated soft drinks Gera-Aid or other fruit flavored drinks Strained fruit juices (no pulp) Jell-O, popsicles, hard candy Water Alcohol Milk or non-dairy creamers Noodles or vegetables in soup Juice with pulp Liquid you cannot see through Do not use tobacco/vaping products The bowel preparation solution will be consumed in two parts. Mix the solution the evening before your colonoscopy and refrigerate before drinking. You may add the flavor pack that came with the bowel preparation. Do NOT add ice, sugar or any other flavorings to the solution. Part 1 At 6:00 PM - Evening before your colonoscopy Drink an 8-oz glass of bowel preparation every 10 minutes for a total of 8 glasses. You may continue to drink clear liquids until midnight. Part 2 On the day of your colonoscopy you may drink clear liquids up to (three) 3 hours before your procedure. 4 1/2 hours before your colonoscopy Drink an 8-oz glass of bowel preparation every 10 minutes for a total of 8 glasses. Fifteen (15) minutes later, drink an 8-oz glass of clear liquids every 15 minutes for a total of 2 glasses. You may continue to drink clear liquids up to (three) 3 hours before your exam. 2 04/2019 Bowel Preparation Instructions for: Miralax-Gatorade Preparations IF YOU DO NOT FOLLOW THESE DIRECTIONS, YOUR COLONOSCOPY WILL BE CANCELLED. Vieyra Instructions: Your bowel must be empty so that your doctor can clearly view your colon. Follow all of the instructions in this handout EXACTLY as they are written. Do NOT eat any solid food the ENTIRE day before your colonoscopy. Buy your bowel preparation at least 5 days before your colonoscopy. Four (4) Dulcolax laxative tablets containing 5mg of bisacodyl each (NOT Dulcolax stool softener) One (1) 8.3oz. bottle Miralax (238 grams) or generic equivalent 2 x 32oz. Bottles of Gatorade (NOT RED) Diabetic Patients: Use G2 (Gatorade 2) TRANSPORTATION on the Day of Your Exam A responsible adult MUST be present with you at Check In prior to your colonoscopy and REMAIN in the endoscopy area until you are discharged. You are NOT ALLOWED to drive, take a taxi or bus, or leave the Endoscopy Center ALONE. If you do not have a responsible certified driver examiner (family member or friend) with you to take you home, your exam cannot be done with sedation and will be cancelled. Please bring a list of all of your current medications, including any Ciaq-xmi-Czsmfej medications with you. Medications If you take insulin, diabetic medications or blood thinners such as Coumadin (warfarin), Plavix (clopidogrel), Ticlid (ticlopidine hydrochloride), Agrylin (anagrelide), Xarelto (Rivaroxaban), Pradaxa (Dabigatran), Eliquis (Apixaban), and Effient (Prasugrel). You MUST call the doctors who orders those medicines for instructions on altering the dosage before your colonoscopy. All other medications should be taken the day of the exam with a sip of water including ASPIRIN. Five (5) Days Before Your Colonoscopy Do NOT take medicines that stop diarrhea - such as Imodium, Kaopectate, or Pepto Bismol. Do NOT take fiber supplements - such as Metamucil, Citrucel, or Perdiem. Do NOT take products that contain iron - such as multi-vitamins (the label lists what is in the products). Three (3) Days Before Your Colonoscopy Do NOT eat high-fiber foods - such as popcorn, beans, seeds (flax, sunflower, quinoa), multigrain bread, nuts, salad/vegetables, or fresh and dried fruit. 1 Bowel Preparation Instructions for: Miralax-Gatorade Preparations One (1) Day Before Your Colonoscopy Only drink clear liquids the ENTIRE DAY before your colonoscopy. Do NOT eat any solid foods. Drink at least 8 ounces of clear liquids every hour after waking up. The clear liquids you can drink include: Clear Liquid (NO RED LIQUIDS) DO NOT DRINK Gatorade, Pedialyte or Powerade Clear broth or bouillon Coffee or tea (no milk or non-dairy creamer) Carbonated and non-carbonated soft drinks Gera-Aid or other fruit flavored drinks Strained fruit juices (no pulp) Jell-O, popsicles, hard candy Water Alcohol Milk or non-dairy creamers Noodles or vegetables in soup Juice with pulp Liquid you cannot see through Do not use tobacco/vaping products Mix 1/2 of Miralax bottle (119 grams) in each 32 ounces of Gatorade bottle until dissolved. Keep cool in the refrigerator. DO NOT ADD ICE. The bowel preparation solution will be consumed in two parts. Part 1 5:00 PM - Evening before your colonoscopy Take 4 Dulcolax tablets. 6 PM - Evening before your colonoscopy Drink 32 oz. of the mixed solution. Drink an 8 oz. glass of bowel preparation every 15 minutes for a total of 4 glasses. Fifteen (15) minutes later, drink an 8 oz. glass of of clear liquids every 15 minutes for a total of 2 glasses. You may continue to drink clear liquids till midnight. Part 2 On the day of your colonoscopy you may drink clear liquids up to (three) 3 hours prior to procedure. 4 1/2 hours before your colonoscopy Take another 32 oz. bottle of mixed solution. Drink an 8 oz. glass of bowel prep every 15 minutes for a total of 4 glasses. Fifteen (15) minutes later, drink an 8 oz. glass of clear liquids every 15 minutes for a total of 2 glasses. You may continue to drink clear liquids up to (three) 3 hours before your exam. 2 04/2019 documented in this encounter [facility] 06-20-2023 Nurse Note Abdomen soft non-distended. Will continue to monitor. documented in this encounter [facility] 06-20-2023 Miscellaneous Notes Patient requesting refills: Last office visit 09/13/2022. Last refill 05/08/2023 nov none Requested Prescriptions Pending Prescriptions Disp Refills gabapentin (NEURONTIN) 300 mg capsule 150 capsule 0 Sig: TAKE 2 CAPSULES BY MOUTH EVERY MORNING AND 3 CAPSULES AT BEDTIME FOR 30 DAYS. Strength: 300 mg Please review and advise. Suzanne Almaguer MA documented in this encounter [facility] 06-20-2023 History and physical note CHIEF COMPLAINT: Patient presents with: Rectal Problem: Had blood in stool- Last colonoscopy 2006 This consult was requested by No ref. provider found for an opinion regarding rectal bleeding. My final recommendations will be communicated to the requesting health care provider by way of the shared medical record for internal providers or letter via the [employer] for external providers. HPI: Mars Peterson is a 67 year old male who presents for Rectal Problem (Had blood in stool- Last colonoscopy 2006 ). is present today. Patient notes very dark stools for about a week several months ago. Denies red blood. Notes that he is moving bowels about every 3-4 days. Will occasionally have to strain to go. Denies abdominal pain. Does have GERD, on well cleaner Protonix. No dysthagia, nausea, vomiting. No smoking. Occasional alcohol use. Component Latest Ref Rng & Units 03/14/2023 Protein, Total 6.3 - 8.0 g/dL 7.8 Albumin 3.9 - 4.9 g/dL 4.1 Calcium 8.5 - 10.2 mg/dL 9.4 Bilirubin, Total 0.2 - 1.3 mg/dL 0.5 Alkaline Phosphatase 38 - 113 U/L 59 AST 14 - 40 U/L 18 ALT 10 - 54 U/L 10 Glucose 74 - 99 mg/dL 103 (H) BUN 9 - 24 mg/dL 11 Creatinine 0.73 - 1.22 mg/dL 1.18 Sodium 136 - 144 mmol/L 129 (L) Potassium 3.7 - 5.1 mmol/L 5.0 Chloride 97 - 105 mmol/L 93 (L) CO2 22 - 30 mmol/L 27 Anion Gap 9 - 18 mmol/L 9 eGFR >=60 mL/min/1.73m 67 WBC 3.70 - 11.00 k/uL 6.51 RBC 4.20 - 6.00 m/uL 5.15 Hemoglobin 13.0 - 17.0 g/dL 13.8 Hematocrit 39.0 - 51.0 % 44.5 MCV 80.0 - 100.0 fL 86.4 MCH 26.0 - 34.0 pg 26.8 MCHC 30.5 - 36.0 g/dL 31.0 RDW-CV 11.5 - 15.0 % 12.9 Platelet Count 150 - 400 k/uL 215 MPV 9.0 - 12.7 fL 9.6 Cholesterol, Total <200 mg/dL 143 Triglyceride <150 mg/dL 101 HDL Cholesterol >39 mg/dL 44 Non HDL Cholesterol <130 mg/dL 99 Fasting Time hrs 12 VLDL Cholesterol <30 mg/dL 20 TC:HDL Ratio <5.10 3.25 LDL Cholesterol <100 mg/dL 79 LDL:HDL Ratio <2.54 1.80 Component Latest Ref Rng & Units 02/06/2023 Occult Blood, Stool Negative Positive (A) Component Latest Ref Rng & Units 02/06/2023 Shigella spp./Enteroinvasive E.coli DNA Not Detected Not detected Campylobacter jejuni/coli DNA Not Detected Not detected Shiga toxin-producing gene(s) Not Detected Not detected Salmonella spp. DNA Not Detected Not detected C. difficile PCR Negative for C. difficile toxin by PCR Negative for C. difficile toxin by PCR Record Review: [facility] / Outside records reviewed. 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[facility]) Peripheral vascular disease ([facility]) S/P CABG (coronary artery bypass graft) Umbilical hernia PAST SURGICAL HISTORY PAST SURGICAL HISTORY Procedure Laterality Date BACK SURGERY HX 2017 CABG (1) VEIN GRAFT & ARTERIAL GRAFT 2002 CABG x4 COLONOSCOPY 2007 FINGER AMPUTATION (SPECIFY DIGIT) HX HIP SURGERY HX 1999 1999, 2018 Replacement Right and left LEG AMPUTATION HX Right 2018 PAST SURGICAL HISTORY OF coccyx REMV CATARACT EXTRACAP,INSERT LENS Bilateral Allergies: ALLERGIES ALLERGIES Allergen Reactions Animal Dander Other: See Comments Anything with fur Seasonal Allergies Other: See Comments Stuffy nose, headaches Medications: CURRENT MEDICATIONS psyllium husk (METAMUCIL) 0.4 gram cap Take by mouth. gabapentin (NEURONTIN) 300 mg capsule TAKE 2 CAPSULES BY MOUTH EVERY MORNING AND 3 CAPSULES AT BEDTIME FOR 30 DAYS. Strength: 300 mg albuterol sulfate 90 mcg/actuation aebs Inhale 1-2 Puffs as instructed every 4 hours as needed for wheezing/shortness of breath. fluticasone (FLONASE) 50 mcg/actuation nasal spray SPRAY 1 SPRAY INTO EACH NOSTRIL EVERY DAY qusftjohswd-ulrhatnjw-uftgldrz (TRELEGY ELLIPTA) 200-62.5-25 mcg inhalation powder Inhale 1 Puff as instructed once daily. clopidogrel (PLAVIX) 75 mg tablet take 1 tablet by mouth every day hydrOXYzine HCl (ATARAX) 25 mg tablet TAKE 1 TABLET BY MOUTH FOUR TIMES A DAY metoprolol succinate ER (TOPROL XL) 25 mg 24 hr tablet take 1 tablet by mouth every day ezetimibe (ZETIA) 10 mg tablet Take 1 tablet by mouth once daily. escitalopram oxalate (LEXAPRO) 20 mg tablet Take 1 tablet by mouth once daily. lisinopril (ZESTRIL) 10 mg tablet Take 1 tablet by mouth once daily. pantoprazole DR (PROTONIX) 40 mg tablet Take 1 tablet by mouth once daily. traZODone (DESYREL) 100 mg tablet TAKE 2 TABLETS DAILY AT BEDTIME isosorbide mononitrate ER (IMDUR) 30 mg 24 hr tablet Take 1 tablet by mouth once daily. Lactobacillus acidophilus (PROBIOTIC) 10 billion cell cap Take 1 capsule by mouth once daily. furosemide (LASIX) 40 mg tablet Take 1 tablet by mouth three times a week. pravastatin (PRAVACHOL) 20 mg tablet Take 1 tablet by mouth daily at bedtime. acetaminophen (TYLENOL EXTRA STRENGTH) 500 mg tablet Take 2 tablets by mouth every 8 hours as needed for pain. FOR PAIN. Zinc 50 mg tab Take 50 mg by mouth once daily. aspirin, enteric coated (ASPIRIN, ENTERIC COATED) 81 mg EC tablet Take 81 mg by mouth once daily. ascorbic acid, vitamin C, (VITAMIN C) 500 mg tablet Take 500 mg by mouth once daily. multivit-min/folic/vit K/lycop (ONE-A-DAY MEN'S MULTIVITAMIN ORAL) Take by mouth once daily. nitroglycerin sublingual (NITROSTAT) 0.4 mg SL tablet Dissolve 1 tablet under the tongue every 5 minutes as needed for chest pain. (Patient not taking: Reported on 04/23/2023) sodium chloride 0.65 % nasal spray Use 1 Jaffrey in the nose as needed. (Patient not taking: Reported on 04/23/2023) FAMILY HISTORY FAMILY HISTORY Problem Relation Age of Onset Ovarian cancer Mother other (afib) Mother COPD Mother Heart Father heart attack other (Chronic oxygen) Father other (bladder cancer) Maternal Aunt Cancer Maternal Aunt Cancer Maternal Uncle Heart Paternal Uncle Leukemia Paternal Uncle Colon Cancer No Family History OCCUPATION & MARITAL STATUS Employer And Job Title: None on file Years Of Education Completed: Not specified Marital Status: SOCIAL HISTORY Social History Tobacco Use Smoking status: Former Packs/day: 2.00 Years: 40.00 Additional pack years: 0.00 Total pack years: 80.00 Types: Cigarettes Quit date: 05/13/2001 Years since quittin.9 Smokeless tobacco: Former Types: Chew Vaping Use Vaping Use: Never used Substance Use Topics Alcohol use: Yes Comment: Occasional Drug use: Never Review of Systems: Review of Systems All other systems reviewed and are negative. Are you taking any blood thinners? Yes, Plavix Physical Examination: BP 136/76 Pulse 60 Ht 6' 1" (1.85m) Wt 277 lb (125.6kg) BMI 36.55 kg/(m^2). Physical Exam Constitutional: Appearance: Normal appearance. He is obese. HENT: Head: Normocephalic and atraumatic. Eyes: General: No scleral icterus. Extraocular Movements: Extraocular movements intact. Conjunctiva/sclera: Conjunctivae normal. Pupils: Pupils are equal, round, and reactive to light. Cardiovascular: Rate and Rhythm: Normal rate and regular rhythm. Pulses: Normal pulses. Heart sounds: Normal heart sounds. Pulmonary: Effort: Pulmonary effort is normal. Breath sounds: Normal breath sounds. Abdominal: General: Abdomen is flat. Bowel sounds are normal. Palpations: Abdomen is soft. Tenderness: There is no abdominal tenderness. Musculoskeletal: General: Normal range of motion. Cervical back: Normal range of motion and neck supple. Comments: In wheelchair Skin: General: Skin is warm and dry. Coloration: Skin is not jaundiced. Neurological: General: No focal deficit present. Mental Status: He is alert and oriented to person, place, and time. Psychiatric: Mood and Affect: Mood normal. Behavior: Behavior normal. Thought Content: Thought content normal. Judgment: Judgment normal. Assessment/Plan (K21.9) Chronic GERD (primary encounter diagnosis) (K92.1) Melena (Z12.11) Screening for colon cancer (K59.00) Constipation, unspecified constipation type 1. Chronic GERD -- Patient with chronic GERD, on Protonix 40 mg daily. -- Did have a week long episode of melena in January. -- Plan for EGD for further evaluation - EGD DIAGNOSTIC; Future 2. Melena -- Patient with chronic GERD, on Protonix 40 mg daily. -- Did have a week long episode of melena in January. -- Plan for EGD for further evaluation - EGD DIAGNOSTIC; Future 3. Screening for colon cancer - COLONOSCOPY SCREENING; Future 4. Constipation, unspecified constipation type -- Okay to continue Metamucil daily. Can add Miralax PRN. Follow up in office PRN. Recommended to please call office/go to ER if fever, chills, chest pain, SOB, diarrhea, nausea, emesis, worsening abdominal pain, dehydration occurs I spent a total of 25 minutes on the date of the service which included preparing to see the patient, [id number] patient care, completing clinical documentation, obtaining and/or reviewing separately obtained history, performing a medically appropriate examination, counseling and educating the patient/family/caregiver, and ordering medications, tests, or procedures. Mone Robertson PA-C UPDATED HISTORY AND PHYSICAL EXAMINATION SERVICE DATE: 06/20/2023 SERVICE TIME: 7:30 AM Code Status: Prior PHYSICAL EXAM MUST BE COMPLETED ON ADMISSION The History and Physical (completed in the past 30 days) has been reviewed and the patient has been examined. The contents accurately reflect the patient's condition with the following additions or revisions since the H&P was completed. Examination indicates no changes. This H&P can be found in the attached. SIGNATURE: David Lee III, MD PATIENT NAME: Mars Peterson DATE: June 20, 2023 TIME: 7:30 AM documented in this encounter [facility] 04-26-2023 Miscellaneous Notes Patient's request for medication is as follows: Requested Prescriptions Refused Prescriptions Disp Refills ezetimibe (ZETIA) 10 mg tablet 90 tablet 3 Sig: Take 1 tablet by mouth once daily. Refused By: TAMMY HARRIS Reason for Refusal: Patient has requested refill too soon Refilled 01/29/2023 for 90 tabs and [address] [facility]. Prescription(s) as above. Please process accordingly. Tammy Harris LPN documented in this encounter [facility] 04-23-2023 Instructions Mone Robertson PA-C - 04/23/2023 3:16 PM EST Images from the original note were not included. Bowel Preparation Instructions for: Miralax-Gatorade Preparations IF YOU DO NOT FOLLOW THESE DIRECTIONS, YOUR COLONOSCOPY WILL BE CANCELLED. Vieyra Instructions: Your bowel must be empty so that your doctor can clearly view your colon. Follow all of the instructions in this handout EXACTLY as they are written. Do NOT eat any solid food the ENTIRE day before your colonoscopy. Buy your bowel preparation at least 5 days before your colonoscopy. Four (4) Dulcolax laxative tablets containing 5mg of bisacodyl each (NOT Dulcolax stool softener) One (1) 8.3oz. bottle Miralax (238 grams) or generic equivalent 2 x 32oz. Bottles of Gatorade (NOT RED) Diabetic Patients: Use G2 (Gatorade 2) TRANSPORTATION on the Day of Your Exam A responsible adult MUST be present with you at Check In prior to your colonoscopy and REMAIN in the endoscopy area until you are discharged. You are NOT ALLOWED to drive, take a taxi or bus, or leave the Endoscopy Center ALONE. If you do not have a responsible certified driver examiner (family member or friend) with you to take you home, your exam cannot be done with sedation and will be cancelled. Please bring a list of all of your current medications, including any Mpmi-fed-Hjbvnxb medications with you. Medications If you take insulin, diabetic medications or blood thinners such as Coumadin (warfarin), Plavix (clopidogrel), Ticlid (ticlopidine hydrochloride), Agrylin (anagrelide), Xarelto (Rivaroxaban), Pradaxa (Dabigatran), Eliquis (Apixaban), and Effient (Prasugrel). You MUST call the doctors who orders those medicines for instructions on altering the dosage before your colonoscopy. All other medications should be taken the day of the exam with a sip of water including ASPIRIN. Five (5) Days Before Your Colonoscopy Do NOT take medicines that stop diarrhea - such as Imodium, Kaopectate, or Pepto Bismol. Do NOT take fiber supplements - such as Metamucil, Citrucel, or Perdiem. Do NOT take products that contain iron - such as multi-vitamins (the label lists what is in the products). Three (3) Days Before Your Colonoscopy Do NOT eat high-fiber foods - such as popcorn, beans, seeds (flax, sunflower, quinoa), multigrain bread, nuts, salad/vegetables, or fresh and dried fruit. 1 Bowel Preparation Instructions for: Miralax-Gatorade Preparations One (1) Day Before Your Colonoscopy Only drink clear liquids the ENTIRE DAY before your colonoscopy. Do NOT eat any solid foods. Drink at least 8 ounces of clear liquids every hour after waking up. The clear liquids you can drink include: Clear Liquid (NO RED LIQUIDS) DO NOT DRINK Gatorade, Pedialyte or Powerade Clear broth or bouillon Coffee or tea (no milk or non-dairy creamer) Carbonated and non-carbonated soft drinks Gera-Aid or other fruit flavored drinks Strained fruit juices (no pulp) Jell-O, popsicles, hard candy Water Alcohol Milk or non-dairy creamers Noodles or vegetables in soup Juice with pulp Liquid you cannot see through Do not use tobacco/vaping products Mix 1/2 of Miralax bottle (119 grams) in each 32 ounces of Gatorade bottle until dissolved. Keep cool in the refrigerator. DO NOT ADD ICE. The bowel preparation solution will be consumed in two parts. Part 1 5:00 PM - Evening before your colonoscopy Take 4 Dulcolax tablets. 6 PM - Evening before your colonoscopy Drink 32 oz. of the mixed solution. Drink an 8 oz. glass of bowel preparation every 15 minutes for a total of 4 glasses. Fifteen (15) minutes later, drink an 8 oz. glass of of clear liquids every 15 minutes for a total of 2 glasses. You may continue to drink clear liquids till midnight. Part 2 On the day of your colonoscopy you may drink clear liquids up to (three) 3 hours prior to procedure. 4 1/2 hours before your colonoscopy Take another 32 oz. bottle of mixed solution. Drink an 8 oz. glass of bowel prep every 15 minutes for a total of 4 glasses. Fifteen (15) minutes later, drink an 8 oz. glass of clear liquids every 15 minutes for a total of 2 glasses. You may continue to drink clear liquids up to (three) 3 hours before your exam. 2 04/2019 documented in this encounter [facility] 04-23-2023 History of Presen t illness Narrative CHIEF COMPLAINT: Patient presents with: Rectal Problem: Had blood in stool- Last colonoscopy 2006 This consult was requested by No ref. provider found for an opinion regarding rectal bleeding. My final recommendations will be communicated to the requesting health care provider by way of the shared medical record for internal providers or letter via the [employer] for external providers. HPI: Mars Peterson is a 67 year old male who presents for Rectal Problem (Had blood in stool- Last colonoscopy 2006 ). is present today. Patient notes very dark stools for about a week several months ago. Denies red blood. Notes that he is moving bowels about every 3-4 days. Will occasionally have to strain to go. Denies abdominal pain. Does have GERD, on penitentiary Protonix. No dysthagia, nausea, vomiting. No smoking. Occasional alcohol use. Component Latest Ref Rng & Units 03/14/2023 Protein, Total 6.3 - 8.0 g/dL 7.8 Albumin 3.9 - 4.9 g/dL 4.1 Calcium 8.5 - 10.2 mg/dL 9.4 Bilirubin, Total 0.2 - 1.3 mg/dL 0.5 Alkaline Phosphatase 38 - 113 U/L 59 AST 14 - 40 U/L 18 ALT 10 - 54 U/L 10 Glucose 74 - 99 mg/dL 103 (H) BUN 9 - 24 mg/dL 11 Creatinine 0.73 - 1.22 mg/dL 1.18 Sodium 136 - 144 mmol/L 129 (L) Potassium 3.7 - 5.1 mmol/L 5.0 Chloride 97 - 105 mmol/L 93 (L) CO2 22 - 30 mmol/L 27 Anion Gap 9 - 18 mmol/L 9 eGFR >=60 mL/min/1.73m 67 WBC 3.70 - 11.00 k/uL 6.51 RBC 4.20 - 6.00 m/uL 5.15 Hemoglobin 13.0 - 17.0 g/dL 13.8 Hematocrit 39.0 - 51.0 % 44.5 MCV 80.0 - 100.0 fL 86.4 MCH 26.0 - 34.0 pg 26.8 MCHC 30.5 - 36.0 g/dL 31.0 RDW-CV 11.5 - 15.0 % 12.9 Platelet Count 150 - 400 k/uL 215 MPV 9.0 - 12.7 fL 9.6 Cholesterol, Total <200 mg/dL 143 Triglyceride <150 mg/dL 101 HDL Cholesterol >39 mg/dL 44 Non HDL Cholesterol <130 mg/dL 99 Fasting Time hrs 12 VLDL Cholesterol <30 mg/dL 20 TC:HDL Ratio <5.10 3.25 LDL Cholesterol <100 mg/dL 79 LDL:HDL Ratio <2.54 1.80 Component Latest Ref Rng & Units 02/06/2023 Occult Blood, Stool Negative Positive (A) Component Latest Ref Rng & Units 02/06/2023 Shigella spp./Enteroinvasive E.coli DNA Not Detected Not detected Campylobacter jejuni/coli DNA Not Detected Not detected Shiga toxin-producing gene(s) Not Detected Not detected Salmonella spp. DNA Not Detected Not detected C. difficile PCR Negative for C. difficile toxin by PCR Negative for C. difficile toxin by PCR Record Review: [facility] / Outside records reviewed. 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 DJD (degenerative joint disease) Essential hypertension Heart attack ([facility]) 1999 States his previous animal trainer told him he had a heart attack based on EKG (in [place]) Neuropathy Osteomyelitis of foot ([facility]) Peripheral vascular disease ([facility]) S/P CABG (coronary artery bypass graft) Umbilical hernia PAST SURGICAL HISTORY Procedure Laterality Date BACK SURGERY HX 2017 CABG (1) VEIN GRAFT & ARTERIAL GRAFT 2001 CABG x4 COLONOSCOPY 2007 FINGER AMPUTATION (SPECIFY DIGIT) HX HIP SURGERY HX 1999 1999, 2019 Replacement Right and left LEG AMPUTATION HX Right 2018 PAST SURGICAL HISTORY OF coccyx REMV CATARACT EXTRACAP,INSERT LENS Bilateral Allergies: ALLERGIES Allergen Reactions Animal Dander Other: See Comments Anything with fur Seasonal Allergies Other: See Comments Stuffy nose, headaches Medications: psyllium husk (METAMUCIL) 0.4 gram cap Take by mouth. gabapentin (NEURONTIN) 300 mg capsule TAKE 2 CAPSULES BY MOUTH EVERY MORNING AND 3 CAPSULES AT BEDTIME FOR 30 DAYS. Strength: 300 mg albuterol sulfate 90 mcg/actuation aebs Inhale 1-2 Puffs as instructed every 4 hours as needed for wheezing/shortness of breath. fluticasone (FLONASE) 50 mcg/actuation nasal spray SPRAY 1 SPRAY INTO EACH NOSTRIL EVERY DAY atkxanqetij-htkemqltr-mrhvwlbx (TRELEGY ELLIPTA) 200-62.5-25 mcg inhalation powder Inhale 1 Puff as instructed once daily. clopidogrel (PLAVIX) 75 mg tablet take 1 tablet by mouth every day hydrOXYzine HCl (ATARAX) 25 mg tablet TAKE 1 TABLET BY MOUTH FOUR TIMES A DAY metoprolol succinate ER (TOPROL XL) 25 mg 24 hr tablet take 1 tablet by mouth every day ezetimibe (ZETIA) 10 mg tablet Take 1 tablet by mouth once daily. escitalopram oxalate (LEXAPRO) 20 mg tablet Take 1 tablet by mouth once daily. lisinopril (ZESTRIL) 10 mg tablet Take 1 tablet by mouth once daily. pantoprazole DR (PROTONIX) 40 mg tablet Take 1 tablet by mouth once daily. traZODone (DESYREL) 100 mg tablet TAKE 2 TABLETS DAILY AT BEDTIME isosorbide mononitrate ER (IMDUR) 30 mg 24 hr tablet Take 1 tablet by mouth once daily. Lactobacillus acidophilus (PROBIOTIC) 10 billion cell cap Take 1 capsule by mouth once daily. furosemide (LASIX) 40 mg tablet Take 1 tablet by mouth three times a week. pravastatin (PRAVACHOL) 20 mg tablet Take 1 tablet by mouth daily at bedtime. acetaminophen (TYLENOL EXTRA STRENGTH) 500 mg tablet Take 2 tablets by mouth every 8 hours as needed for pain. FOR PAIN. Zinc 50 mg tab Take 50 mg by mouth once daily. aspirin, enteric coated (ASPIRIN, ENTERIC COATED) 81 mg EC tablet Take 81 mg by mouth once daily. ascorbic acid, vitamin C, (VITAMIN C) 500 mg tablet Take 500 mg by mouth once daily. multivit-min/folic/vit K/lycop (ONE-A-DAY MEN'S MULTIVITAMIN ORAL) Take by mouth once daily. nitroglycerin sublingual (NITROSTAT) 0.4 mg SL tablet Dissolve 1 tablet under the tongue every 5 minutes as needed for chest pain. (Patient not taking: Reported on 04/23/2023) sodium chloride 0.65 % nasal spray Use 1 Jaffrey in the nose as needed. (Patient not taking: Reported on 04/23/2023) FAMILY HISTORY Problem Relation Age of Onset Ovarian cancer Mother other (afib) Mother COPD Mother Heart Father heart attack other (Chronic oxygen) Father other (bladder cancer) Maternal Aunt Cancer Maternal Aunt Cancer Maternal Uncle Heart Paternal Uncle Leukemia Paternal Uncle Colon Cancer No Family History Employer And Job Title: None on file Years Of Education Completed: Not specified Marital Status: Social History Tobacco Use Smoking status: Former Packs/day: 2.00 Years: 40.00 Additional pack years: 0.00 Total pack years: 80.00 Types: Cigarettes Quit date: 05/13/2001 Years since quittin.9 Smokeless tobacco: Former Types: Chew Vaping Use Vaping Use: Never used Substance Use Topics Alcohol use: Yes Comment: Occasional Drug use: Never Review of Systems: Review of Systems All other systems reviewed and are negative. Are you taking any blood thinners? Yes, Plavix Physical Examination: BP 136/76 Pulse 60 Ht 6' 1" (1.85m) Wt 277 lb (125.6kg) BMI 36.55 kg/(m^2). Physical Exam Constitutional: Appearance: Normal appearance. He is obese. HENT: Head: Normocephalic and atraumatic. Eyes: General: No scleral icterus. Extraocular Movements: Extraocular movements intact. Conjunctiva/sclera: Conjunctivae normal. Pupils: Pupils are equal, round, and reactive to light. Cardiovascular: Rate and Rhythm: Normal rate and regular rhythm. Pulses: Normal pulses. Heart sounds: Normal heart sounds. Pulmonary: Effort: Pulmonary effort is normal. Breath sounds: Normal breath sounds. Abdominal: General: Abdomen is flat. Bowel sounds are normal. Palpations: Abdomen is soft. Tenderness: There is no abdominal tenderness. Musculoskeletal: General: Normal range of motion. Cervical back: Normal range of motion and neck supple. Comments: In wheelchair Skin: General: Skin is warm and dry. Coloration: Skin is not jaundiced. Neurological: General: No focal deficit present. Mental Status: He is alert and oriented to person, place, and time. Psychiatric: Mood and Affect: Mood normal. Behavior: Behavior normal. Thought Content: Thought content normal. Judgment: Judgment normal. Assessment/Plan (K21.9) Chronic GERD (primary encounter diagnosis) (K92.1) Melena (Z12.11) Screening for colon cancer (K59.00) Constipation, unspecified constipation type 1. Chronic GERD -- Patient with chronic GERD, on Protonix 40 mg daily. -- Did have a week long episode of melena in January. -- Plan for EGD for further evaluation - EGD DIAGNOSTIC; Future 2. Melena -- Patient with chronic GERD, on Protonix 40 mg daily. -- Did have a week long episode of melena in January. -- Plan for EGD for further evaluation - EGD DIAGNOSTIC; Future 3. Screening for colon cancer - COLONOSCOPY SCREENING; Future 4. Constipation, unspecified constipation type -- Okay to continue Metamucil daily. Can add Miralax PRN. Follow up in office PRN. Recommended to please call office/go to ER if fever, chills, chest pain, SOB, diarrhea, nausea, emesis, worsening abdominal pain, dehydration occurs I spent a total of 25 minutes on the date of the service which included preparing to see the patient, [id number] patient care, completing clinical documentation, obtaining and/or reviewing separately obtained history, performing a medically appropriate examination, counseling and educating the patient/family/caregiver, and ordering medications, tests, or procedures. Mone Robertson PA-C April 23, 2023 3:19 PM documented in this encounter [facility] 04-15-2023 Miscellaneous Notes Pharmacy requesting refills as follows: Last Office Visit 09/13/22. Last Refill 03/18/23. Requested Prescriptions Pending Prescriptions Disp Refills gabapentin (NEURONTIN) 300 mg capsule 150 capsule 0 Sig: TAKE 2 CAPSULES BY MOUTH EVERY MORNING AND 3 CAPSULES AT BEDTIME FOR 30 DAYS. Strength: 300 mg Please review and advise. Priya Pedersen MA documented in this encounter [facility] 04-15-2023 Miscellaneous Notes RX available at [facility]. Discussed at office visit. Katelynn Huynh LPN documented in this encounter [facility] 04-15-2023 History of Presen t illness Narrative Images from the original note were not included. Patient: Mars Peterson PCP: Alma Gill APRN.EVANS CC: follow up HPI: Mars Peterson 67 year old obese male former [id number] smoker having quit in 2001 with PMH significant for CAD s/p CABG, CHF, HTN, PAD with osteomyelitis of foot status post right BKA, neuropathy, lung nodule, ILD, and mild COPD. Current therapy consists of Trelegy with as needed Albuterol. Patient was changed from Breo to Trelegy at last office visit and states he notices improvement in his symptoms. Current cough productive of yellow/white sputum, no hemoptysis. Variable wheezing. Exertional dyspnea with minimal effort. 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 DJD (degenerative joint disease) Essential hypertension Heart attack ([facility]) 1999 States his previous animal trainer told him he had a heart attack based on EKG (in [place]) Neuropathy Osteomyelitis of foot ([facility]) Peripheral vascular disease ([facility]) S/P CABG (coronary artery bypass graft) Umbilical hernia Allergies: Animal Dander Other: See Comments Comment:Anything with fur Seasonal Allergies Other: See Comments Comment:Stuffy nose, headaches gabapentin (NEURONTIN) 300 mg capsule TAKE 2 CAPSULES BY MOUTH EVERY MORNING AND 3 CAPSULES AT BEDTIME FOR 30 DAYS. Strength: 300 mg fluticasone (FLONASE) 50 mcg/actuation nasal spray SPRAY 1 SPRAY INTO EACH NOSTRIL EVERY DAY wvixcauxchq-qgeuvkyuw-natfylss (TRELEGY ELLIPTA) 200-62.5-25 mcg inhalation powder Inhale 1 Puff as instructed once daily. clopidogrel (PLAVIX) 75 mg tablet take 1 tablet by mouth every day hydrOXYzine HCl (ATARAX) 25 mg tablet TAKE 1 TABLET BY MOUTH FOUR TIMES A DAY metoprolol succinate ER (TOPROL XL) 25 mg 24 hr tablet take 1 tablet by mouth every day ezetimibe (ZETIA) 10 mg tablet Take 1 tablet by mouth once daily. escitalopram oxalate (LEXAPRO) 20 mg tablet Take 1 tablet by mouth once daily. lisinopril (ZESTRIL) 10 mg tablet Take 1 tablet by mouth once daily. nitroglycerin sublingual (NITROSTAT) 0.4 mg SL tablet Dissolve 1 tablet under the tongue every 5 minutes as needed for chest pain. pantoprazole DR (PROTONIX) 40 mg tablet Take 1 tablet by mouth once daily. traZODone (DESYREL) 100 mg tablet TAKE 2 TABLETS DAILY AT BEDTIME isosorbide mononitrate ER (IMDUR) 30 mg 24 hr tablet Take 1 tablet by mouth once daily. sodium chloride 0.65 % nasal spray Use 1 Jaffrey in the nose as needed. albuterol sulfate 90 mcg/actuation aebs Inhale 1-2 Puffs as instructed every 4 hours as needed for wheezing/shortness of breath. Lactobacillus acidophilus (PROBIOTIC) 10 billion cell cap Take 1 capsule by mouth once daily. furosemide (LASIX) 40 mg tablet Take 1 tablet by mouth three times a week. pravastatin (PRAVACHOL) 20 mg tablet Take 1 tablet by mouth daily at bedtime. acetaminophen (TYLENOL EXTRA STRENGTH) 500 mg tablet Take 2 tablets by mouth every 8 hours as needed for pain. FOR PAIN. Zinc 50 mg tab Take 50 mg by mouth once daily. aspirin, enteric coated (ASPIRIN, ENTERIC COATED) 81 mg EC tablet Take 81 mg by mouth once daily. ascorbic acid, vitamin C, (VITAMIN C) 500 mg tablet Take 500 mg by mouth once daily. multivit-min/folic/vit K/lycop (ONE-A-DAY MEN'S MULTIVITAMIN ORAL) Take by mouth once daily. Social History Tobacco Use Smoking status: Former Packs/day: 2.00 Years: 40.00 Additional pack years: 0.00 Total pack years: 80.00 Types: Cigarettes Quit date: 05/13/2001 Years since quittin.9 Smokeless tobacco: Former Types: Chew Vaping Use Vaping Use: Never used Substance Use Topics Alcohol use: Yes Comment: Occasional Drug use: Never Family History Problem Relation Age of Onset Ovarian cancer Mother other (afib) Mother COPD Mother Heart Father heart attack other (Chronic oxygen) Father other (bladder cancer) Maternal Aunt Cancer Maternal Aunt Cancer Maternal Uncle Heart Paternal Uncle Leukemia Paternal Uncle PAST SURGICAL HISTORY Procedure Laterality Date BACK SURGERY HX 2017 CABG (1) VEIN GRAFT & ARTERIAL GRAFT 2001 CABG x4 FINGER AMPUTATION (SPECIFY DIGIT) HX HIP SURGERY HX 2000 1999, 2019 LEG AMPUTATION HX Right 2018 PAST SURGICAL HISTORY OF coccyx REMV CATARACT EXTRACAP,INSERT LENS Bilateral I reviewed the past medical history, family history, social history and surgical history with changes noted above and updated in EMR. IMMUNIZATIONS Prevnar - 11/08/2022 Pneumovax - 05/2021 Influenza - 02/2023 COVID-19 - most recent 02/2023 ROS: CONSTITUTIONAL: No fevers, chills, or unintended weight loss. Nightsweats. HEENT: Denies nasal congestion/sinus symptoms, problematic allergy problems. EYES: No diplopia or blurry vision. CARDIOVASCULAR: No palpitations, PND, edema, chest pain. PULM: See HPI GI: No dysphagia/odynophagia, problematic reflux, changes in stool habits NEURO: Neuropathy, tremors. MUSC-SKEL: No new joint pain, swelling, or erythema. INTEGUMENTARY: No new skin changes or rashes PHYSICAL EXAMINATION: BP 128/78 Pulse (!) 58 Resp 15 SpO2 95% Gen: No acute distress. Cooperative with examination. HEENT: Normocephalic. Sclera, conjunctiva clear. Oral hygeine and dentition good. No thrush. Resp: No stridor, accessory respiratory muscle use, supra-sternal or intercostal retractions. No wheezes, crackles. CV: Regular rythm. Heart tones normal. Radial pulses normal. MSK: No kyphoscoliosis. Ext: Warm and well perfused. No clubbing, cyanosis, edema. Skin: No rash, ecchymoses. Neuro: Mental status normal. Affect normal. No tremor. DATA: PFT, 11/2022: Pulmonary function test shows mild restriction based on reduced FVC and small airways obstruction that improves post-bronchodilator CT chest, 12/10/2022 IMPRESSION: Stable subcentimeter perifissural pulmonary nodules with the largest up to 8 mm along the minor fissure, likely lymph nodes. No new or enlarging suspicious lung nodule. Stable mild peripheral and basilar predominant pulmonary fibrosis without overt honeycombing, atypical for UIP, which may be idiopathic or secondary to drug toxicity in this patient with coronary artery disease status post CABG. Pulmonary function test may be considered. No new or progressive thoracic lymphadenopathy. ECHO 2021: CONCLUSIONS: - Exam indication: Shortness of Breath - The left ventricle is normal in size. There is mild concentric left ventricular hypertrophy. Left ventricular systolic function is normal. EF = 57 5% (2D biplane) Grade I left ventricular diastolic dysfunction. - The right ventricle is normal in size. Right ventricular systolic function is low normal. Tricuspid annular displacement is 2.6 cm. - The left atrial cavity is mildly dilated. Val 35 ml/m . - The right atrial cavity is dilated. - There are no significant valvular abnormalities. - There is no pericardial effusion. - The patient has not had a prior CC echocardiographic exam for comparison. Labs Component Latest Ref Rng & Units 03/14/2023 Alpha 1 Antitrypsin 90 - 200 mg/dL 142 ASSESSMENT/PLAN: 1. 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 ([facility]) - ICD9: 496, ICD10: J44.9 (primary diagnosis) Symptomatically improved with triple therapy Trelegy. Albuterol HFA inhaler, 2 inhalations 10-15 minutes prior to activities associated with shortness of breath, and as needed for rescue relief of shortness of breath or wheezing, up to 4 times daily. 2. Lung nodules - ICD9: 793.19, ICD10: R91.[address] chest due May 2023. Will order and patient to schedule at [place]. - CT CHEST WO IVCON 3. Class 2 obesity due to excess calories with body mass index (BMI) of 36.0 to 36.9 in adult, unspecified whether serious comorbidity present - ICD9: 278.00, V85.36, ICD10: E66.09, Z68.36 Weight loss advised. 4. ILD (interstitial lung disease) ([facility]) - ICD9: 515, ICD10: J84.9 Early pulmonary fibrosis may be related to occupational exposures. No overt honeycombing on most recent CT. Will need continued surveillance. Portions of this documentation were copied and pasted from previous office visit notes in order to provide a cohesive continuity of the history. The note has been reviewed and edited and updated as necessary. Lilian Rodríguez PA-C documented in this encounter [facility] 04-03-2023 Miscellaneous Notes Faxed signed orders by Lilian Rodríguez PA-C to [facility]. documented in this encounter [facility] 03-08-2023 Miscellaneous Notes Pharmacy comment: REQUEST FOR 90 DAYS PRESCRIPTION. DX Code Needed. documented in this encounter [facility] 03-04-2023 History of Presen t illness Narrative Images from the original note were not included. Patient: Mars Peterson PCP: Alma Gill APRN.TAG MACHINE OPERATOR CC: follow up HPI: Mars Peterson 67 year old male obese male former [id number] smoker having quit in 2001 with PMH significant for CAD s/p CABG, CHF, HTN, PAD with osteomyelitis of foot status post right BKA, neuropathy, lung nodule, ILD, and mild COPD. Most recent CT chest in November 2022 demonstrated stable nodules and stable mild peripheral and basilar predominant pulmonary fibrosis without overt honeycombing. Current therapy consists of Breo with as needed Albuterol. Today, patient states changing from Anoro to Breo was beneficial, but still continues with SOB. Daily cough productive of phlegm. No hemoptysis. Sleeps at an incline secondary to cough and SOB. Wheezing with exertion. Reports increased SOB that typically is with exertion, but at times will be at rest. No lower extremity edema in left leg. Is prescribed Lasix three times weekly, but has not been taking it. States he urinates frequently during the day so does not feel the need for the Lasix. 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 DJD (degenerative joint disease) Essential hypertension Heart attack ([facility]) 1999 States his previous animal trainer told him he had a heart attack based on EKG (in [place]) Neuropathy Osteomyelitis of foot ([facility]) Peripheral vascular disease ([facility]) S/P CABG (coronary artery bypass graft) Umbilical hernia Allergies: Animal Dander Other: See Comments Comment:Anything with fur Seasonal Allergies Other: See Comments Comment:Stuffy nose, headaches clopidogrel (PLAVIX) 75 mg tablet take 1 tablet by mouth every day hydrOXYzine HCl (ATARAX) 25 mg tablet TAKE 1 TABLET BY MOUTH FOUR TIMES A DAY gabapentin (NEURONTIN) 300 mg capsule TAKE 2 CAPSULES BY MOUTH EVERY MORNING AND 3 CAPSULES AT BEDTIME FOR 30 DAYS. metoprolol succinate ER (TOPROL XL) 25 mg 24 hr tablet take 1 tablet by mouth every day ezetimibe (ZETIA) 10 mg tablet Take 1 tablet by mouth once daily. escitalopram oxalate (LEXAPRO) 20 mg tablet Take 1 tablet by mouth once daily. fluticasone-vilanterol (BREO ELLIPTA) 100-25 mcg/dose inhaler Inhale 1 Inhalation as instructed once daily. lisinopril (ZESTRIL) 10 mg tablet Take 1 tablet by mouth once daily. nitroglycerin sublingual (NITROSTAT) 0.4 mg SL tablet Dissolve 1 tablet under the tongue every 5 minutes as needed for chest pain. pantoprazole DR (PROTONIX) 40 mg tablet Take 1 tablet by mouth once daily. traZODone (DESYREL) 100 mg tablet TAKE 2 TABLETS DAILY AT BEDTIME isosorbide mononitrate ER (IMDUR) 30 mg 24 hr tablet Take 1 tablet by mouth once daily. fluticasone (FLONASE) 50 mcg/actuation nasal spray Use 1 Jaffrey in each nostril once daily. sodium chloride 0.65 % nasal spray Use 1 Jaffrey in the nose as needed. albuterol sulfate 90 mcg/actuation aebs Inhale 1-2 Puffs as instructed every 4 hours as needed for wheezing/shortness of breath. Lactobacillus acidophilus (PROBIOTIC) 10 billion cell cap Take 1 capsule by mouth once daily. furosemide (LASIX) 40 mg tablet Take 1 tablet by mouth three times a week. pravastatin (PRAVACHOL) 20 mg tablet Take 1 tablet by mouth daily at bedtime. acetaminophen (TYLENOL EXTRA STRENGTH) 500 mg tablet Take 2 tablets by mouth every 8 hours as needed for pain. FOR PAIN. Zinc 50 mg tab Take 50 mg by mouth once daily. aspirin, enteric coated (ASPIRIN, ENTERIC COATED) 81 mg EC tablet Take 81 mg by mouth once daily. ascorbic acid, vitamin C, (VITAMIN C) 500 mg tablet Take 500 mg by mouth once daily. multivit-min/folic/vit K/lycop (ONE-A-DAY MEN'S MULTIVITAMIN ORAL) Take by mouth once daily. Social History Tobacco Use Smoking status: Former Packs/day: 2.00 Years: 40.00 Additional pack years: 0.00 Total pack years: 80.00 Types: Cigarettes Quit date: 05/13/2001 Years since quittin.8 Smokeless tobacco: Former Types: Chew Vaping Use Vaping Use: Never used Substance Use Topics Alcohol use: Yes Comment: Occasional Drug use: Never Family History Problem Relation Age of Onset Ovarian cancer Mother other (afib) Mother COPD Mother Heart Father heart attack other (Chronic oxygen) Father other (bladder cancer) Maternal Aunt Cancer Maternal Aunt Cancer Maternal Uncle Heart Paternal Uncle Leukemia Paternal Uncle PAST SURGICAL HISTORY Procedure Laterality Date BACK SURGERY HX 2017 CABG (1) VEIN GRAFT & ARTERIAL GRAFT 2001 CABG x4 FINGER AMPUTATION (SPECIFY DIGIT) HX HIP SURGERY HX 1999 1999, 2019 LEG AMPUTATION HX Right 2018 PAST SURGICAL HISTORY OF coccyx REMV CATARACT EXTRACAP,INSERT LENS Bilateral I reviewed the past medical history, family history, social history and surgical history with changes noted above and updated in EMR. IMMUNIZATIONS Prevnar - 11/08/2022 Pneumovax - 05/2021 Influenza - 02/2023 COVID-19 - most recent 08/2021 ROS: CONSTITUTIONAL: No fevers, chills, or unintended weight loss. Reports nightsweats. HEENT: Denies nasal congestion/sinus symptoms, problematic allergy problems. EYES: No diplopia or blurry vision. CARDIOVASCULAR: No palpitations, PND, edema, chest pain. PULM: See HPI GI: No dysphagia/odynophagia, problematic reflux, changes in stool habits NEURO: Neuropathy, tremors. MUSC-SKEL: No new joint pain, swelling, or erythema. INTEGUMENTARY: No new skin changes or rashes PHYSICAL EXAMINATION: BP (P) 138/76 Pulse (!) 54 Resp 19 SpO2 94% Gen: No acute distress. Cooperative with examination. Sitting in wheelchair. HEENT: Normocephalic. Sclera, conjunctiva clear. Oral hygeine and dentition good. No thrush. Resp: No stridor, accessory respiratory muscle use, supra-sternal or intercostal retractions. No wheezes. Crackles in right base. CV: Regular rythm. Heart tones normal. Radial pulses normal in LLE. MSK: No kyphoscoliosis. Ext: Warm and well perfused. No clubbing, cyanosis, edema. R BKA with artificial limb. Skin: No rash, ecchymoses. Neuro: Mental status normal. Affect normal. No tremor. DATA: PFT, 11/2022: Pulmonary function test shows mild restriction based on reduced FVC and small airways obstruction that improves post-bronchodilator ECHO 2021: CONCLUSIONS: - Exam indication: Shortness of Breath - The left ventricle is normal in size. There is mild concentric left ventricular hypertrophy. Left ventricular systolic function is normal. EF = 57 5% (2D biplane) Grade I left ventricular diastolic dysfunction. - The right ventricle is normal in size. Right ventricular systolic function is low normal. Tricuspid annular displacement is 2.6 cm. - The left atrial cavity is mildly dilated. Val 35 ml/m . - The right atrial cavity is dilated. - There are no significant valvular abnormalities. - There is no pericardial effusion. - The patient has not had a prior CC echocardiographic exam for comparison. ASSESSMENT/PLAN: 1. 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 ([facility]) - ICD9: 496, ICD10: J44.9 (primary diagnosis) Symptoms are more severe than PFTs. Will check Alpha-1. Will trial Trelegy for 1 month. Symptoms may be more cardiac in nature. Albuterol HFA inhaler, 2 inhalations 10-15 minutes prior to activities associated with shortness of breath, and as needed for rescue relief of shortness of breath or wheezing, up to 4 times daily. - TRELEGY ELLIPTA 200 MCG-62.5 MCG-25 MCG POWDER FOR INHALATION 2. Dyspnea, unspecified type - ICD9: 786.09, ICD10: R06.00 See #1. Check NT pro BNP. - NT PRO BNP 3. Lung nodules - ICD9: 793.19, ICD10: R91.8 Stable on most recent CT chest 11/2022. Goal is to determine 2 years of stability. Recommend [address] chest[address] Will order at next office visit. 4. ILD (interstitial lung disease) ([facility]) - ICD9: 515, ICD10: J84.9 Early pulmonary fibrosis may be related to occupational exposures. No overt honeycombing on most recent CT. Will need continued surveillance. 5. Class 2 obesity due to excess calories with body mass index (BMI) of 36.0 to 36.9 in adult, unspecified whether serious comorbidity present - ICD9: 278.00, V85.36, ICD10: E66.09, Z68.36 Weight loss advised. Portions of this documentation were copied and pasted from previous office visit notes in order to provide a cohesive continuity of the history. The note has been reviewed and edited and updated as necessary. Lilian Rodríguez PA-C documented in this encounter [facility] 02-28-2023 Miscellaneous Notes Last OV 09/13/22 Labs 11/08/22 Pharmacy calls in requesting the following refill(s): Requested Prescriptions Pending Prescriptions Disp Refills clopidogrel (PLAVIX) 75 mg tablet [Pharmacy Med Name: CLOPIDOGREL 75 MG TABLET] 90 tablet 0 Sig: take 1 tablet by mouth every day Maryse Molina MA documented in this encounter [facility] 02-20-2023 Miscellaneous Notes Form received from [facility] placed on signing tray Priya Pedersen MA documented in this encounter [facility] 02-18-2023 Miscellaneous Notes Walter [phone] given verbal order. Precious Lacy MA Verbal order for PT given. Walter nixon PT from [facility] called and left a message requesting verbal orders to start care with the patient 2 times a week for 3 weeks and 1 time a week for 5 weeks. Walter didn't leave a phone number but we can call the office at Priya Pedersen MA documented in this encounter [facility] 02-15-2023 Miscellaneous Notes pharm requesting refills: Last office visit 09/13/22. Last refill 01/24/23. Requested Prescriptions Pending Prescriptions Disp Refills hydrOXYzine HCl (ATARAX) 25 mg tablet [Pharmacy Med Name: HYDROXYZINE HCL 25 MG TABLET] 360 tablet 1 Sig: TAKE 1 TABLET BY MOUTH FOUR TIMES A DAY Please review and advise. Suzanne Almaguer MA documented in this encounter [facility] 02-14-2023 Miscellaneous Notes Pharmacy requesting refills as follows: Last Office Visit 09/13/22. Last Refill 01/15/23. Requested Prescriptions Pending Prescriptions Disp Refills gabapentin (NEURONTIN) 300 mg capsule [Pharmacy Med Name: GABAPENTIN 300 MG CAPSULE] 150 capsule 0 Sig: TAKE 2 CAPSULES BY MOUTH EVERY MORNING AND 3 CAPSULES AT BEDTIME FOR 30 DAYS. Please review and advise. Priya Pedersen MA documented in this encounter [facility] 02-05-2023 Miscellaneous Notes Verbal order given to continue services. Please call the patient's to let her know that I ordered a CBC and a fecal occult test for him to complete. Please hold his ASA until testing if completed. Marina with [facility] left message stating when she went to see dean smith today he reported that for the last couple weeks he has had loose dark coffee ground like stools. States she educated him to go to the ER. Was going to D/C him today but now would like a verbal order to do a recert visit on Saturday. Please advise. Precious Lacy MA documented in this encounter [facility] 01-21-2023 History of Presen t illness Narrative Images from the original note were not included. Patient: Mars Peterson PCP: Alma Gill APRN.TAG MACHINE OPERATOR CC: follow up HPI: Mars Peterson 67 year old obese male former [id number] smoker having quit in 2001 with PMH significant for CAD s/p CABG, CHF, HTN, PAD with osteomyelitis of foot status post right BKA, neuropathy, lung nodule, ILD, and mild COPD. Most recent CT chest in November 2022 demonstrated stable nodules and stable mild peripheral and basilar predominant pulmonary fibrosis without overt honeycombing. Current therapy with Anoro and as needed Albuterol. Today, patient is not sure if Anoro is very helpful. Daily cough productive of yellow/white sputum. No hemoptysis. Frequent wheezing especially with over-exertion. Exertional dyspnea with minimal effort. Ambulates in wheelchair secondary to BKA and imbalance. No lower extremity left leg. 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 gabapentin (NEURONTIN) 300 mg capsule TAKE 2 CAPSULES BY MOUTH EVERY MORNING AND 3 CAPSULES AT BEDTIME FOR 30 DAYS. hydrOXYzine HCl (ATARAX) 25 mg tablet TAKE 1 TABLET BY MOUTH FOUR TIMES A DAY lisinopril (ZESTRIL) 10 mg tablet Take 1 tablet by mouth once daily. nitroglycerin sublingual (NITROSTAT) 0.4 mg SL tablet Dissolve 1 tablet under the tongue every 5 minutes as needed for chest pain. pantoprazole DR (PROTONIX) 40 mg tablet Take 1 tablet by mouth once daily. traZODone (DESYREL) 100 mg tablet TAKE 2 TABLETS DAILY AT BEDTIME umeclidinium-vilanterol (ANORO ELLIPTA) 62.5-25 mcg/actuation inhaler Inhale 1 Inhalation as instructed once daily. methylPREDNISolone (MEDROL, ALEX,) 4 mg Dose-Pack As Instructed per package (Patient not taking: Reported on 11/20/2022) isosorbide mononitrate ER (IMDUR) 30 mg 24 hr tablet Take 1 tablet by mouth once daily. fluticasone (FLONASE) 50 mcg/actuation nasal spray Use 1 Jaffrey in each nostril once daily. sodium chloride 0.65 % nasal spray Use 1 Jaffrey in the nose as needed. clopidogrel (PLAVIX) 75 mg tablet Take 1 tablet by mouth once daily. albuterol sulfate 90 mcg/actuation aebs Inhale 1-2 Puffs as instructed every 4 hours as needed for wheezing/shortness of breath. Lactobacillus acidophilus (PROBIOTIC) 10 billion cell cap Take 1 capsule by mouth once daily. furosemide (LASIX) 40 mg tablet Take 1 tablet by mouth three times a week. pravastatin (PRAVACHOL) 20 mg tablet Take 1 tablet by mouth daily at bedtime. metoprolol succinate ER (TOPROL XL) 25 mg 24 hr tablet TAKE 1 TABLET BY MOUTH EVERY DAY acetaminophen (TYLENOL EXTRA STRENGTH) 500 mg tablet Take 2 tablets by mouth every 8 hours as needed for pain. FOR PAIN. Zinc 50 mg tab Take 50 mg by mouth. aspirin, enteric coated (ASPIRIN, ENTERIC COATED) 81 mg EC tablet Take 81 mg by mouth once daily. ascorbic acid, vitamin C, (VITAMIN C) 500 mg tablet Take 500 mg by mouth once daily. multivit-min/folic/vit K/lycop (ONE-A-DAY MEN'S MULTIVITAMIN ORAL) Take by mouth once daily. Social History Tobacco Use Smoking status: Former Packs/day: 2.00 Years: 40.00 Additional pack years: 0.00 Total pack years: 80.00 Types: Cigarettes Quit date: 05/13/2001 Years since quittin.7 Smokeless tobacco: Former Types: Chew Vaping Use Vaping Use: Never used Substance Use Topics Alcohol use: Yes Comment: Occasional Drug use: Never Family History Problem Relation Age of Onset Ovarian cancer Mother other (afib) Mother COPD Mother Heart Father heart attack other (Chronic oxygen) Father other (bladder cancer) Maternal Aunt Cancer Maternal Aunt Cancer Maternal Uncle Heart Paternal Uncle Leukemia Paternal Uncle PAST SURGICAL HISTORY Procedure Laterality Date BACK SURGERY HX 2017 CABG (1) VEIN GRAFT & ARTERIAL GRAFT 2002 CABG x4 FINGER AMPUTATION (SPECIFY DIGIT) HX HIP SURGERY HX 2000 1999, 2019 LEG AMPUTATION HX Right 2018 PAST SURGICAL HISTORY OF coccyx REMV CATARACT EXTRACAP,INSERT LENS Bilateral I reviewed the past medical history, family history, social history and surgical history with changes noted above and updated in EMR. IMMUNIZATIONS Prevnar - 11/08/2022 Pneumovax - 05/2021 Influenza - 2021 COVID-19 - most recent 08/2021 ROS: CONSTITUTIONAL: No fevers, chills, nightsweats, unintended weight loss HEENT: Denies nasal congestion/sinus symptoms, problematic allergy problems. EYES: No diplopia or blurry vision. CARDIOVASCULAR: No palpitations, orthopnea, PND, edema. Chest pain PULM: See HPI GI: No dysphagia/odynophagia, problematic reflux, changes in stool habits NEURO: Neuropathy, tremors. MUSC-SKEL: No new joint pain, swelling, or erythema. INTEGUMENTARY: No new skin changes or rashes PHYSICAL EXAMINATION: BP 132/74 Pulse (!) 56 Resp 22 Wt 127.6 kg (281 lb 3.2 oz) SpO2 95% BMI 37.10 kg/m Gen: No acute distress. Cooperative with examination. Obese. Sitting in wheelchair. HEENT: Normocephalic. Sclera, conjunctiva clear. Oral hygeine and dentition good. Resp: No stridor, accessory respiratory muscle use, supra-sternal or intercostal retractions. No wheezes. Crackles right base. CV: Regular rythm. Heart tones normal. Radial pulses normal. Abd: Non distended. MSK: No kyphoscoliosis. Ext: Warm and well perfused. No clubbing, cyanosis, edema. R BKA with artificial limb. Skin: No rash, ecchymoses. Neuro: Mental status normal. Affect normal. No tremor. DATA: PFT, 11/2022: Pulmonary function test shows mild restriction based on reduced FVC and small airways obstruction that improves post-bronchodilator ECHO 2021: CONCLUSIONS: - Exam indication: Shortness of Breath - The left ventricle is normal in size. There is mild concentric left ventricular hypertrophy. Left ventricular systolic function is normal. EF = 57 5% (2D biplane) Grade I left ventricular diastolic dysfunction. - The right ventricle is normal in size. Right ventricular systolic function is low normal. Tricuspid annular displacement is 2.6 cm. - The left atrial cavity is mildly dilated. Val 35 ml/m . - The right atrial cavity is dilated. - There are no significant valvular abnormalities. - There is no pericardial effusion. - The patient has not had a prior CC echocardiographic exam for comparison. Labs: Component Ref Range & Units 2 mo ago NT Pro BNP <125 pg/mL 821 High CBC without polycythemia Imaging / Diagnostic Studies: DATE OF EXAM: Dec 10 2022 2:21PM [facility] 0541 - CT CHEST WO IVCON / PROCEDURE REASON: Lung nodules * * * * Physician Interpretation * * * * EXAMINATION: CHEST CT WITHOUT CONTRAST CLINICAL HISTORY: Lung nodules and interstitial lung disease. Status post CABG. Technique: Spiral CT acquisition of the chest from the thoracic inlet to the upper abdomen without contrast. MQ: [id number] CT Radiation dose: Integrated Dose-length product (DLP) for this visit = 515.82 mGy*cm CT Dose Reduction Employed: Automated exposure control(AEC) and iterative recon Comparison: Chest CT 08/22/2022. RESULT: Limitations: None. Lines, tubes, and devices: None. Lung parenchyma and airways: The central airways are patent without endobronchial lesion. There is mild upper lobe centrilobular and paraseptal emphysema with mild diffuse bronchial wall thickening. Subpleural and lower lobe predominant reticulations with mild traction bronchiectasis/bronchiolectasis reflecting mild pulmonary fibrosis without evidence of overt honeycombing. No new focal consolidation. A few subcentimeter pulmonary nodules are unchanged, including a 8 mm nodule along the minor fissure on image 108 and additional smaller perifissural nodules for example along the minor fissure on image 92 and along the left major fissure on image 116, which are likely lymph nodes. No new or enlarging lung nodules. Pleural space: No pleural effusion. No pleural thickening. Lower neck, lymph nodes, and mediastinum: The imaged thyroid gland is unremarkable. No supraclavicular or axillary lymphadenopathy. The mediastinal and hilar lymph nodes are stable noting some borderline enlarged lymph nodes, likely reactive in nature, for example 11 mm in short axis right paratracheal lymph node on image 95. An 10 mm in short axis subcarinal lymph node on image 127. No new or progressive thoracic lymphadenopathy. Heart, pericardium, and thoracic vessels: There are atherosclerotic calcifications of the thoracic aorta which is normal in caliber. The main pulmonary artery is borderline dilated. There is left atrial enlargement. Severe coronary artery atherosclerotic calcifications are noted, status post CABG although the study is not optimized for coronary assessment. No pericardial effusion or thickening. Bones and soft tissues: Status post median sternotomy. Degenerative changes of the thoracic spine. No destructive bone lesion. Chest wall is unremarkable. Upper abdomen: Atherosclerotic calcifications of the thoracic aorta. The imaged upper abdomen is otherwise stable without acute abnormality. IMPRESSION: Stable subcentimeter perifissural pulmonary nodules with the largest up to 8 mm along the minor fissure, likely lymph nodes. No new or enlarging suspicious lung nodule. Stable mild peripheral and basilar predominant pulmonary fibrosis without overt honeycombing, atypical for UIP, which may be idiopathic or secondary to drug toxicity in this patient with coronary artery disease status post CABG. Pulmonary function test may be considered. No new or progressive thoracic lymphadenopathy. DATE OF EXAM: Aug 22 2022 5:48PM [facility] 0540 - CT CHEST W IVCON PE / Comparison: Chest radiographs 02/08/2022. RESULT: Evaluation for thromboembolic disease: - Right heart chambers: No thromboembolic disease. - Main pulmonary arteries: No thromboembolic disease. - Lobar pulmonary arteries: No thromboembolic disease. - Segmental pulmonary arteries: No thromboembolic disease. - Subsegmental pulmonary arteries: No thromboembolic disease. - Additional pulmonary artery findings: The main pulmonary artery is normal in caliber. Lines, tubes, and devices: None. Lung parenchyma, airways and pleural space: Bilateral mild bronchial wall thickening. On the right, upper and posterior lower lobe predominant subpleural reticulation. Associated subpleural airspaces, possible paraseptal emphysema and/or possible honeycombing. 8 mm nodule in profile with the minor fissure, image 117 of series 3. No consolidation or pleural effusion. On the left, upper and posterior lower lobe predominant subpleural reticulation with paraseptal emphysema and/or possible honeycombing. Couple of 2 mm sized nodules in profile with the major fissure, images 118 and 119. No consolidation or pleural effusion. The central airways are patent. Lower neck, lymph nodes, and mediastinum: The imaged thyroid gland is normal. Small and mild prominent mediastinal and bilateral hilar lymph nodes. For example, 1 cm short axis precarinal node. Small subcarinal nodes extending into the azygoesophageal recess. 1.2 cm short axis right hilar node, image 109 of series 3, and similar short axis left hilar node, image 134. Heart, pericardium, and thoracic vessels: The thoracic aorta is normal in caliber. The cardiac chambers are normal in size. CABG. No coronary artery atherosclerotic calcifications are noted, although the study is not optimized for coronary assessment. No pericardial effusion or thickening. Bones and soft tissues: Median sternotomy cerclage wires. Ununited manubrium. United sternum. Upper abdomen: Cholelithiasis.. IMPRESSION: No CT evidence of pulmonary embolism. Bilateral subpleural reticulation, upper and posterior lower lobe predominant, with paraseptal emphysema and/or possible honeycombing. Findings are concerning for interstitial lung disease. Consider further characterization with follow-up elective high-resolution CT chest study. Small and mild prominent mediastinal and bilateral hilar lymph nodes. Although potentially postinflammatory, reactive, follow-up is warranted. 8 mm right lung nodule. Cholelithiasis. ASSESSMENT/PLAN: 1. 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 ([facility]) - ICD9: 496, ICD10: J44.9 (primary diagnosis) Emphysema noted on imaging. Will change to Breo daily with as needed Albuterol. Check Alpha-1 2. Lung nodules - ICD9: 793.19, ICD10: R91.8 Stable on most recent CT chest 11/2022. Goal is to determine 2 years of stability. Recommend [address] chest[address] Will order at next office visit. 3. ILD (interstitial lung disease) ([facility]) - ICD9: 515, ICD10: J84.9 Early pulmonary fibrosis may be related to occupational exposures. No overt honeycombing on most recent CT. Will need continued surveillance. 4. Class 2 obesity due to excess calories with body mass index (BMI) of 36.0 to 36.9 in adult, unspecified whether serious comorbidity present - ICD9: 278.00, V85.36, ICD10: E66.09, Z68.36 Weight loss advised. Portions of this documentation were copied and pasted from previous office visit notes in order to provide a cohesive continuity of the history. The note has been reviewed and edited and updated as necessary. Lilian Rodríguez PA-C documented in this encounter [facility] 01-15-2023 Miscellaneous Notes patient electronically requesting refills as follows: Last seen 09/13/22 . Last refill 12/17/22 . Requested Prescriptions Pending Prescriptions Disp Refills gabapentin (NEURONTIN) 300 mg capsule 150 capsule 0 Sig: TAKE 2 CAPSULES BY MOUTH EVERY MORNING AND 3 CAPSULES AT BEDTIME FOR 30 DAYS. Please review and advise. Precious Lacy MA documented in this encounter [facility] 01-11-2023 Miscellaneous Notes Call placed to patient he would like to transfer service to [place] with Dr. Sarmiento. He already has a follow up appointment on 09-16-23 at 11:40a in [place]. Thanks Katelin Garibay Patient's request for medication is as follows: Requested Prescriptions Pending Prescriptions Disp Refills pravastatin (PRAVACHOL) 20 mg tablet 30 tablet 11 Sig: Take 1 tablet by mouth daily at bedtime. Last visit 01/29/23. Next visit recommended for July. I will ask clerical to reach out to pt with an OV. Prescription(s) as above. Please process accordingly. Marlyn Torrez RN documented in this encounter [facility] 12-27-2022 Miscellaneous Notes pharmacy electronically requesting refills as follows: Last seen 09/13/22 . Last refill 11/01/22 . Requested Prescriptions Pending Prescriptions Disp Refills hydrOXYzine HCl (ATARAX) 25 mg tablet [Pharmacy Med Name: HYDROXYZINE HCL 25 MG TABLET] 120 tablet 1 Sig: TAKE 1 TABLET BY MOUTH FOUR TIMES A DAY Please review and advise. Precious Lacy MA documented in this encounter [facility] 12-17-2022 Miscellaneous Notes Forms signed. Please fax back. Thank you. Form placed on signing tray from [facility] Priya Pedersen MA documented in this encounter [facility] 12-17-2022 Miscellaneous Notes Pharmacy requesting refills as follows: Last Office Visit . Last Refill 07/13/22 for lisinopril and 11/12/22 for gabapentin. Requested Prescriptions Pending Prescriptions Disp Refills gabapentin (NEURONTIN) 300 mg capsule 150 capsule 0 Sig: TAKE 2 CAPSULES BY MOUTH EVERY MORNING AND 3 CAPSULES AT BEDTIME FOR 30 DAYS. lisinopril (ZESTRIL) 10 mg tablet 30 tablet 4 Sig: Take 1 tablet by mouth once daily. Please review and advise. Priya Pedersen MA documented in this encounter [facility] 12-13-2022 Miscellaneous Notes Attempted to call patient and spouse to further discuss symptoms. They are unavailable to talk until after 2:30 pm today. He likely needs his Imdur dose adjusted or Ranexa added if he does not have BP room and no contraindications. Agree that he needs to monitor his BP daily and if continued daily chest pain should be evaluated in the ED. Refill for SL nitro sent. Will also reach out to his [facility] interventional team regarding his increased symptom burden. Jaclyn Erickson APRN.EVANS Pended refill SL Nitro Called PT talked to his she states he was having frequent chest pain he was taking SL nitro. PTs said he has not needed nitro the last 3-4 days feeling better. PT does have an appointment on 01/29/[address] Sarmiento. I advised to take the PT to the emergency department to be evaluated if he continues to have CP. PT BP 120s/50s 60s she will start taking BP and keep a log. He did have a ECG 12/10/22 TOMMY 07/05/22 Tammy Loaiza PT does have some SL NItro unsure how much Pt had refill of Nitro on 11/14/22 for 25 tabs and 1 refill. Unsure if the pt is going through his nitro this quickly. Message from [employer]: Refills have been requested for the following medications: nitroglycerin sublingual (NITROSTAT) 0.4 mg SL tablet [Jaclyn Erickson] Preferred pharmacy: [id number] [place] [address] - [address] [place] [id number] Delivery method: Pickup documented in this encounter [facility] 12-13-2022 Miscellaneous Notes [employer] message sent to patient with results. Precious Lacy MA ----- Message from Alma Gill APRN.TAG MACHINE OPERATOR sent at 12/13/2022 9:43 AM EDT ----- No change to EKG, stable documented in this encounter [facility] 11-28-2022 Miscellaneous Notes pharmacy electronically requesting refills as follows: Last seen 09/13/22 . Last refill 05/18/22 . Requested Prescriptions Pending Prescriptions Disp Refills traZODone (DESYREL) 100 mg tablet [Pharmacy Med Name: TRAZODONE 100 MG TABLET] 180 tablet 1 Sig: TAKE 2 TABLETS DAILY AT BEDTIME Please review and advise. Precious Lacy MA documented in this encounter [facility] 11-20-2022 History of Presen t illness Narrative Images from the original note were not included. . Respiratory [place] Note Patient name: Mars Peterson PCP: Alma Gill APRN.TAG MACHINE OPERATOR Referring Physician: same Consultation requested by Alma Gill for an opinion regarding dyspnea on exertion. My final recommendations will be communicated back to the requesting physician by way of shared Medical record or letter to requesting physician via US mail. 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 Patient has a rather significant cardiac history status post ND with CABG and persistent angina. Apparently attempt at stent placement was unsuccessful due to anatomy. 3 vein grafts are patent. Recent dyspnea on exertion. He has two types of shortness of breath. 1 is shortness of breath that occurs in the morning associated with bilateral arm pain and back pain which he describes as his typical angina. No significant relief with nitroglycerin and pain can last up to 2 hours. His other dyspnea is with exertion. He is very limited in his ADLs. He claims that his dyspnea on exertion only started after attempts at stent placement. No associated wheezing, cough, sputum production. He was prescribed albuterol inhaler several months ago which inconsistently offers relief of his dyspnea. He does not carry a history of COPD. No history of recurrent bronchitis or pneumonia. 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 DATA: PFT: Pulmonary function test shows mild restriction based on reduced FVC and small airways obstruction that improves post-bronchodilator ECHO 2021: CONCLUSIONS: - Exam indication: Shortness of Breath - The left ventricle is normal in size. There is mild concentric left ventricular hypertrophy. Left ventricular systolic function is normal. EF = 57 5% (2D biplane) Grade I left ventricular diastolic dysfunction. - The right ventricle is normal in size. Right ventricular systolic function is low normal. Tricuspid annular displacement is 2.6 cm. - The left atrial cavity is mildly dilated. Val 35 ml/m . - The right atrial cavity is dilated. - There are no significant valvular abnormalities. - There is no pericardial effusion. - The patient has not had a prior CC echocardiographic exam for comparison. Labs: Component Ref Range & Units 2 mo ago NT Pro BNP <125 pg/mL 821 High CBC without polycythemia Imaging / Diagnostic Studies: DATE OF EXAM: Aug 22 2022 5:48PM [facility] 0540 - CT CHEST W IVCON PE / Comparison: Chest radiographs 02/08/2022. RESULT: Evaluation for thromboembolic disease: - Right heart chambers: No thromboembolic disease. - Main pulmonary arteries: No thromboembolic disease. - Lobar pulmonary arteries: No thromboembolic disease. - Segmental pulmonary arteries: No thromboembolic disease. - Subsegmental pulmonary arteries: No thromboembolic disease. - Additional pulmonary artery findings: The main pulmonary artery is normal in caliber. Lines, tubes, and devices: None. Lung parenchyma, airways and pleural space: Bilateral mild bronchial wall thickening. On the right, upper and posterior lower lobe predominant subpleural reticulation. Associated subpleural airspaces, possible paraseptal emphysema and/or possible honeycombing. 8 mm nodule in profile with the minor fissure, image 117 of series 3. No consolidation or pleural effusion. On the left, upper and posterior lower lobe predominant subpleural reticulation with paraseptal emphysema and/or possible honeycombing. Couple of 2 mm sized nodules in profile with the major fissure, images 118 and 119. No consolidation or pleural effusion. The central airways are patent. Lower neck, lymph nodes, and mediastinum: The imaged thyroid gland is normal. Small and mild prominent mediastinal and bilateral hilar lymph nodes. For example, 1 cm short axis precarinal node. Small subcarinal nodes extending into the azygoesophageal recess. 1.2 cm short axis right hilar node, image 109 of series 3, and similar short axis left hilar node, image 134. Heart, pericardium, and thoracic vessels: The thoracic aorta is normal in caliber. The cardiac chambers are normal in size. CABG. No coronary artery atherosclerotic calcifications are noted, although the study is not optimized for coronary assessment. No pericardial effusion or thickening. Bones and soft tissues: Median sternotomy cerclage wires. Ununited manubrium. United sternum. Upper abdomen: Cholelithiasis.. IMPRESSION: No CT evidence of pulmonary embolism. Bilateral subpleural reticulation, upper and posterior lower lobe predominant, with paraseptal emphysema and/or possible honeycombing. Findings are concerning for interstitial lung disease. Consider further characterization with follow-up elective high-resolution CT chest study. Small and mild prominent mediastinal and bilateral hilar lymph nodes. Although potentially postinflammatory, reactive, follow-up is warranted. 8 mm right lung nodule. Cholelithiasis. 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 DJD (degenerative joint disease) Essential hypertension Heart attack ([facility]) 1999 States his previous animal trainer told him he had a heart attack based on EKG (in [place]) Neuropathy Osteomyelitis of foot ([facility]) Peripheral vascular disease ([facility]) Umbilical hernia ALLERGIES Allergen Reactions Animal Dander Other: See Comments Anything with fur Seasonal Allergies Other: See Comments Stuffy nose, headaches nitroglycerin sublingual (NITROSTAT) 0.4 mg SL tablet Dissolve 1 tablet under the tongue every 5 minutes as needed for chest pain. gabapentin (NEURONTIN) 300 mg capsule TAKE 2 CAPSULES BY MOUTH EVERY MORNING AND 3 CAPSULES AT BEDTIME FOR 30 DAYS. hydrOXYzine HCl (ATARAX) 25 mg tablet TAKE 1 TABLET BY MOUTH FOUR TIMES A DAY isosorbide mononitrate ER (IMDUR) 30 mg 24 hr tablet Take 1 tablet by mouth once daily. fluticasone (FLONASE) 50 mcg/actuation nasal spray Use 1 Jaffrey in each nostril once daily. clopidogrel (PLAVIX) 75 mg tablet Take 1 tablet by mouth once daily. albuterol sulfate 90 mcg/actuation aebs Inhale 1-2 Puffs as instructed every 4 hours as needed for wheezing/shortness of breath. Lactobacillus acidophilus (PROBIOTIC) 10 billion cell cap Take 1 capsule by mouth once daily. furosemide (LASIX) 40 mg tablet Take 1 tablet by mouth three times a week. pravastatin (PRAVACHOL) 20 mg tablet Take 1 tablet by mouth daily at bedtime. metoprolol succinate ER (TOPROL XL) 25 mg 24 hr tablet TAKE 1 TABLET BY MOUTH EVERY DAY lisinopril (ZESTRIL, PRINIVIL) 10 mg tablet TAKE 1 TABLET BY MOUTH EVERY DAY omeprazole (PRILOSEC) 40 mg capsule TAKE 1 CAPSULE BY MOUTH ONCE DAILY traZODone (DESYREL) 100 mg tablet 2 tablets daily at bedtime Zinc 50 mg tab Take 50 mg by mouth. aspirin, enteric coated (ASPIRIN, ENTERIC COATED) 81 mg EC tablet Take 81 mg by mouth once daily. ascorbic acid, vitamin C, (VITAMIN C) 500 mg tablet Take 500 mg by mouth once daily. multivit-min/folic/vit K/lycop (ONE-A-DAY MEN'S MULTIVITAMIN ORAL) Take by mouth once daily. umeclidinium-vilanterol (ANORO ELLIPTA) 62.5-25 mcg/actuation inhaler Inhale 1 Inhalation as instructed once daily. methylPREDNISolone (MEDROL, ALEX,) 4 mg Dose-Pack As Instructed per package (Patient not taking: Reported on 11/20/2022) sodium chloride 0.65 % nasal spray Use 1 Jaffrey in the nose as needed. escitalopram oxalate (LEXAPRO) 20 mg tablet TAKE 1 TABLET BY MOUTH EVERY DAY (Patient taking differently: Take 20 mg by mouth once daily.) acetaminophen (TYLENOL EXTRA STRENGTH) 500 mg tablet Take 2 tablets by mouth every 8 hours as needed for pain. FOR PAIN. 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 FAMILY HISTORY Problem Relation Age of Onset Ovarian cancer Mother other (afib) Mother COPD Mother Heart Father heart attack other (Chronic oxygen) Father other (bladder cancer) Maternal Aunt Cancer Maternal Aunt Cancer Maternal Uncle Heart Paternal Uncle Leukemia Paternal Uncle PAST SURGICAL HISTORY Procedure Laterality Date BACK SURGERY HX 2017 CABG (1) VEIN GRAFT & ARTERIAL GRAFT 2002 CABG x4 FINGER AMPUTATION (SPECIFY DIGIT) HX HIP SURGERY HX 2000 1999, 2019 LEG AMPUTATION HX Right 2018 PAST SURGICAL HISTORY OF coccyx REMV CATARACT EXTRACAP,INSERT LENS Bilateral PMH, Social history, family history and surgical history reviewed and updated in EMR REVIEW OF SYSTEMS: CONSTITUTIONAL: No fevers, chills, nightsweats, unintended weight loss HEENT: Denies a.m. headaches, nasal congestion/sinus symptoms, problematic allergy problems. EYES: No diplopia or blurry vision. CARDIOVASCULAR: No palpitations, orthopnea, PND, edema. Chest pain PULM: See HPI GI: No dysphagia/odynophagia, problematic reflux, changes in stool habits : No urinary complaints, including dysuria, gross hematuria or pyuria. NEURO: Neuropathy, tremors. Patient denies h/o CVA MUSC-SKEL: No new joint pain, swelling, or erythema. PSY: No concerns regarding depression, anxiety INTEGUMENTARY: No new skin changes or rashes PHYSICAL EXAMINATION: BP 118/58, pulse 58, RR 15, SPO2 94% on room air General Appearance: Obese male in wheelchair. Skin: Skin color, texture, turgor normal, no suspicious rashes or lesions. Head: Normocephalic, no masses, lesions, tenderness or abnormalities. Eyes: Sclera, conjunctiva normal Oropharynx: No oral lesions, Mallampati 2. Neck: No JVD, no masses, no adenopathy Chest wall: Normal configuration. Lungs: Not labored, normal to percussion, crackles right base. Heart: Regular rate and rhythm, no murmurs or gallops. Extremities: Right BKA with artificial limb, left leg no edema. No clubbing Musculoskeletal: No joint deformities. Neurologic: Alert and oriented, no focal findings. Tremors Assessment/Plan: 1. Mild COPD, GOLD 1 -Small airways obstruction not severe enough to cause his degree of dyspnea -Started Anoro Ellipta -Continue albuterol as needed 2. Lung nodule -8 mm lung nodule in high risk patient will require follow-up CT at 3 months 3. ILD -Early pulmonary fibrosis may be related to past occupational exposures. Cannot rule out early IPF -Continued surveillance 4. Obesity, class II -BMI 36 -Weight loss advised 5. Angina -A.m. chest pain and shortness of breath typical in character for angina but duration atypical. Already on nitrates. -Pending cardiology follow-up Francisco Patel MD Respiratory [place] documented in this encounter [facility] 11-20-2022 Nurse Note Intake information documented in the prior visit with RANJITH Sky today. documented in this encounter [facility] 11-20-2022 History of Presen t illness Narrative PULM FUNCTION SMARTBLOCK: Provider: Francisco Patel MD Assisting Tech: Beba Rose RPFT Spirometry w/BD: 1 documented in this encounter [facility] 11-16-2022 Miscellaneous Notes Attempted to call the patient's about his labs. Left a message. Labs were stable. Sodium is lower than previously and I would like for him to see a kidney doctor. Referral placed. If he ever has any confusion, I recommend that he is seen in the ER or calls the office during office hours. documented in this encounter [facility] 11-12-2022 Miscellaneous Notes Patient requesting refills: Last office visit 09/13/2022. Last refill 09/07/2022 for clopidogrel has refilled left denied rx. . Gabapentin last filled 10/09/2022 isosorbide mononitrate last filled 10/16/2022 with refills denied rx Requested Prescriptions Pending Prescriptions Disp Refills clopidogrel (PLAVIX) 75 mg tablet 30 tablet 5 Sig: Take 1 tablet by mouth once daily. gabapentin (NEURONTIN) 300 mg capsule 150 capsule 0 isosorbide mononitrate ER (IMDUR) 30 mg 24 hr tablet 30 tablet 11 Sig: Take 1 tablet by mouth once daily. Please review and advise. Suzanne Almaguer MA documented in this encounter [facility] 11-08-2022 Nurse Note Immunizations were given as ordered. Vaccination information sheet given. ABN sheet was signed Priya Pedersen MA documented in this encounter [facility] 11-08-2022 History of Presen t illness Narrative Radiology Service Progress Note PATIENT NAME: Mars Peterson DATE OF SERVICE: November 08, 2022 TIME: 11:32 AM PATIENT IDENTITY VERIFICATION COMPLETED USING TWO (2) IDENTIFIERS: Name and Date of confirmed by patient verbally. FALL SCREENING: Has the patient had 2 falls in the last year or 1 fall with injury or currently using an Ambulatory Assistive Device (Walker, Cane, Wheelchair, Crutches, etc.)? No PATIENT GENDER DATA: Male PATIENT RELEVANT IMPLANT DATA REVIEWED: Not Applicable RADIOLOGY DEPARTMENT: General X-ray: Exam(s) Completed: Chest X-Ray PERIPHERAL IV DATA: Not applicable SIGNED BY: RT Hayder(R) November 08, 2022 11:32 AM documented in this encounter [facility] 11-01-2022 Miscellaneous Notes pharmacy electronically requesting refills as follows: Last seen 09/13/22 . Last refill 08/29/22 . Requested Prescriptions Pending Prescriptions Disp Refills hydrOXYzine HCl (ATARAX) 25 mg tablet [Pharmacy Med Name: HYDROXYZINE HCL 25 MG TABLET] 120 tablet 1 Sig: TAKE 1 TABLET BY MOUTH FOUR TIMES A DAY Please review and advise. Precious Lacy MA documented in this encounter [facility] 10-30-2022 Miscellaneous Notes Marina from [facility] called and left a message stating the patient has a rash and itching for the past 5 days. They have been using hydroxyzine and benadryl. With no relief, they want to know what else he can use/take. Priya Pedersen MA documented in this encounter [facility] 10-12-2022 Miscellaneous Notes Verbal orders given to royer. Suzanne Almaguer MA Yes, please continue therapy as stated. Royer physical therapist with [facility] left message stating he saw patient for a recert visit and starting next week they will continue to see patient once a week for 4 weeks to see if they can get any further improvement on patient's function. Royer requests call back with verbal okay. Please advise. Precious Lacy MA documented in this encounter [facility] 10-09-2022 Miscellaneous Notes pharmacy electronically requesting refills as follows: Last seen 09/13/22 . Last refill 08/29/22 . Requested Prescriptions Pending Prescriptions Disp Refills gabapentin (NEURONTIN) 300 mg capsule [Pharmacy Med Name: GABAPENTIN 300 MG CAPSULE] 150 capsule 0 Sig: TAKE 2 CAPSULES BY MOUTH EVERY MORNING AND 3 CAPSULES AT BEDTIME FOR 30 DAYS. Please review and advise. Precious Lacy MA documented in this encounter [facility] 09-21-2022 Miscellaneous Notes Pt. scheduled with Dr. Sarmiento at on 10/04/22 at 1420. notified. Wishes to follow at [place] after that appt. Kylah Cancino RN Spoke with patient's , states he sees a different animal trainer and is going to call the [place] office to schedule an appointment there. Did not want to schedule in [place] Spoke to nurse Marina. States pt is "always SOB". Marina has reached out to PCP the last few times this has occurred and PCP gave pt Albuterol inhaler to use PRN. Pt. saw PCP on 09/13/22. No edema noted per nurse. Pt. lung sounds CTA. Pt. reports nausea today and c/o chest pain last night resolved with nitro. Nurse states that the reports of chest pain and nausea are new to patient, which is why she wanted his animal trainer to know. Per Marina, pt was supposed to have a heart cath, but procedure was unsuccessful so cath not completed. Pt has appt with Pulm (Dr. Patel) on 11/20/22. This nurse advised pt be seen/ evaluated in ER for CP/ SOB/ nausea. Please review and advise and call Marina at [phone] with any recommendations. Thank you. Received a call from Marina from [facility] with a patient update. Patient had to take 2 nitro in the middle of the night. Chest pain resolved with use. Patient has prolonged SOB with SpO2 of 93-94% on room air. He is dizzy with standing and is nauseated today. Marina can be reached at [phone]. documented in this encounter [facility] 09-13-2022 Instructions Alma Gill APRN.TAG MACHINE OPERATOR - 09/13/2022 11:59 AM EDT Prevnar 20 What is interstitial lung disease? -- Interstitial lung disease is the medical term for a group of lung disorders that cause similar symptoms and changes in the lungs. Interstitial lung disease causes inflammation and sometimes scarring in the lungs. This makes it hard for oxygen to get from the air into the lungs, which can make it hard to breathe. There are many causes of interstitial lung disease, including: ?Autoimmune diseases - These are diseases in which the body's infection-fighting system (called the immune system) attacks healthy tissue instead of infections. ?Other medical conditions (such as cancer or sarcoidosis) ?Certain medicines (including some treatments for cancer) ?Harmful substances that are breathed into the lungs over a long period of time - These include cigarette smoke, e-cigarette or "vaping" products, mold, chemicals, or dust from asbestos, silica, metals, or coal. ?Radiation (high doses of X-rays) ?Certain lung infections In some cases, doctors don't know what is causing a person's interstitial lung disease. For example, the cause of idiopathic pulmonary fibrosis is not known. What are the symptoms of interstitial lung disease? -- The most common symptoms of interstitial lung disease are: ?Trouble breathing or feeling short of breath, especially with activity or exercise ?A dry cough that lasts for a long time Some people have no symptoms at first. Their doctor or nurse finds out they have interstitial lung disease when they have a chest X-ray or breathing tests done for another reason. Some medical conditions that cause interstitial lung disease also cause symptoms in other parts of the body. For example, some autoimmune disorders also cause skin or joint symptoms. Is there a test for interstitial lung disease? -- Yes. If you have interstitial lung disease, your doctor or nurse will want to know what's causing it. They will ask about your medicines, past medical conditions, whether you have been around harmful substances you might have breathed in, and whether you have any other symptoms that might be related. Your doctor or nurse will also order tests. The tests that are usually done to figure out the cause of interstitial lung disease include the following: ?Blood tests ?A chest X-ray ?A CT scan of the chest - A CT scan is an imaging test that creates pictures of the inside of the body. ?An electrocardiogram (also called an "ECG") - This test measures the electrical activity in the heart. It can show whether people also have a heart problem. ?Breathing tests, also called "pulmonary function tests" - These tests measure how well the lungs are working. In some cases, people might also have: ?An echocardiogram - This test uses sound waves to create pictures of your heart. It can show if your heart is pumping normally. ?Bronchoscopy - This is a procedure in which a doctor uses a thin tube (called a "bronchoscope") to look inside your lungs and get a sample of fluid. ?A lung biopsy - For a lung biopsy, a doctor does surgery or a procedure to take a small sample of tissue from the lung. Then another doctor looks at the sample under a microscope. Not everyone will need a lung biopsy. It is done only if all of the other tests don't show what's causing the interstitial lung disease. How is interstitial lung disease treated? -- Treatment depends on the cause of your interstitial lung disease and how severe your symptoms are. If your lung disease is caused by an infection, your doctor might prescribe medicines to kill the germs causing the infection. If your lung disease is caused by a medicine you take, your doctor will recommend that you stop taking that medicine. Many people with interstitial lung disease are treated with: ?Extra oxygen (that you carry around with you in a tank) ?Steroid medicines to reduce inflammation, such as prednisone - These are not the same as the steroids some athletes take illegally to build muscle. Some interstitial lung diseases are also treated with stronger medicines to reduce inflammation. ?Medicines to slow lung damage, such as pirfenidone (brand name: Esbriet) and nintedanib (brand name: Ofev) ?Pulmonary rehab - In pulmonary rehab, people learn exercises and ways to breathe that can help with symptoms. In some cases, people with severe interstitial lung disease might be treated with a lung transplant. This is surgery to replace 1 or both diseased lungs with healthy lungs. documented in this encounter [facility] 09-13-2022 History of Presen t illness Narrative CHIEF COMPLAINT: Mars Peterson is a 67 year old male who presents today with his for a 4 week f/u for SOB. I reviewed past medical, surgical, social, and family histories today and updated chart. Allergies, chronic medications, and supplements were also reviewed. He has been experiencing SOB since his most recent hospitalization from 08/08-08/11/22 after a cardiac catheterization due to an abnormal stress test. Copied from discharge summary on 08/11/22: Initially the heart catheterization was attempted through the right radial artery, but due to narrowing in the subclavian artery, the catheter was not able to advance all the way to the heart, so the left femoral artery approach was used instead. 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 The procedure was stopped and you were transferred to the ICU for monitoring overnight. Brilinta was initiated because of the artery dissection. Plavix was then substituted for Brilinta due to anticipated cost. A d-dimer was checked with his last office appointment and it was elevated at 1,300. He was sent for a CT chest for PE which was negative but did find a pulmonary nodule and findings consistent with possible ILD. Since his discharge, an albuterol inhaler and a referral to pulmonary was placed. Today, the patient states he continues to have SOB with exertion but not at rest. He will experience some while laying down and usually has to use a couple pillows. His states he has environmental allergies and he has been having some more congestion and postanal drainage that causes his to cough. The history is provided by the patient and the spouse. No consumer relations complaint clerk was used. Shortness of Breath The current episode started more than 1 month ago. The problem occurs intermittently. The problem has been unchanged. Associated symptoms include orthopnea, sputum production and wheezing. Pertinent negatives include no chest pain, ear pain, fever, headaches, hemoptysis, leg pain, leg swelling, neck pain, rhinorrhea, sore throat or syncope. The symptoms are aggravated by any activity. Risk factors include prolonged immobilization. He has tried beta agonist inhalers for the symptoms. The treatment provided mild relief. His past medical history is significant for allergies, CAD, COPD, a heart failure and a recent surgery. There is no history of aspirin allergies, asthma, DVT or PE. 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 CVA (cerebral vascular accident) ([facility]) DJD (degenerative joint disease) Essential hypertension Heart attack ([facility]) 1999 States his previous animal trainer told him he had a heart attack based on EKG (in [place]) Neuropathy Osteomyelitis of foot ([facility]) Peripheral vascular disease ([facility]) Umbilical hernia PAST SURGICAL HISTORY Procedure Laterality Date BACK SURGERY HX 2017 CABG (1) VEIN GRAFT & ARTERIAL GRAFT 2002 CABG x4 FINGER AMPUTATION (SPECIFY DIGIT) HX HIP SURGERY HX 1999 1999, 2019 LEG AMPUTATION HX Right 2018 PAST SURGICAL HISTORY OF coccyx REMV CATARACT EXTRACAP,INSERT LENS Bilateral Social History Tobacco Use Smoking status: Former Smokeless tobacco: Former Types: Chew Vaping Use Vaping Use: Never used Substance Use Topics Alcohol use: Yes Comment: Occasional Drug use: Never ALLERGIES Allergen Reactions Animal Dander Other: See Comments Anything with fur Seasonal Allergies Other: See Comments Stuffy nose, headaches Family History Problem Relation Age of Onset Ovarian cancer Mother other (afib) Mother COPD Mother Heart Father heart attack other (bladder cancer) Maternal Aunt Cancer Maternal Aunt Cancer Maternal Uncle Heart Paternal Uncle Leukemia Paternal Uncle Current Outpatient Medications Medication Sig Dispense Refill clopidogrel (PLAVIX) 75 mg tablet Take 1 tablet by mouth once daily. 30 tablet 5 albuterol sulfate 90 mcg/actuation aebs Inhale 1-2 Puffs as instructed every 4 hours as needed for wheezing/shortness of breath. 1 Each 2 isosorbide mononitrate ER (IMDUR) 30 mg 24 hr tablet Take 1 tablet by mouth once daily. 30 tablet 11 hydrOXYzine HCl (ATARAX) 25 mg tablet TAKE 1 TABLET BY MOUTH FOUR TIMES A DAY 120 tablet 1 gabapentin (NEURONTIN) 300 mg capsule TAKE 2 CAPSULES BY MOUTH EVERY MORNING AND 3 CAPSULES AT BEDTIME FOR 30 DAYS. 150 capsule 0 Lactobacillus acidophilus (PROBIOTIC) 10 billion cell cap Take 1 capsule by mouth once daily. furosemide (LASIX) 40 mg tablet Take 1 tablet by mouth three times a week. pravastatin (PRAVACHOL) 20 mg tablet Take 1 tablet by mouth daily at bedtime. 30 tablet 11 escitalopram oxalate (LEXAPRO) 20 mg tablet TAKE 1 TABLET BY MOUTH EVERY DAY (Patient taking differently: Take 20 mg by mouth once daily.) 90 tablet 1 metoprolol succinate ER (TOPROL XL) 25 mg 24 hr tablet TAKE 1 TABLET BY MOUTH EVERY DAY 90 tablet 1 lisinopril (ZESTRIL, PRINIVIL) 10 mg tablet TAKE 1 TABLET BY MOUTH EVERY DAY 30 tablet 4 omeprazole (PRILOSEC) 40 mg capsule TAKE 1 CAPSULE BY MOUTH ONCE DAILY 90 capsule 1 nitroglycerin sublingual (NITROSTAT) 0.4 mg SL tablet Dissolve 1 tablet under the tongue every 5 minutes as needed for chest pain. 25 tablet 5 traZODone (DESYREL) 100 mg tablet 2 tablets daily at bedtime 180 tablet 1 acetaminophen (TYLENOL EXTRA STRENGTH) 500 mg tablet Take 2 tablets by mouth every 8 hours as needed for pain. FOR PAIN. 90 tablet 0 Zinc 50 mg tab Take 50 mg by mouth. aspirin, enteric coated (ASPIRIN, ENTERIC COATED) 81 mg EC tablet Take 81 mg by mouth once daily. ascorbic acid, vitamin C, (VITAMIN C) 500 mg tablet Take 500 mg by mouth once daily. multivit-min/folic/vit K/lycop (ONE-A-DAY MEN'S MULTIVITAMIN ORAL) Take by mouth once daily. No current facility-administered medications for this visit. Review of Systems Constitutional: Positive for fatigue. Negative for chills, diaphoresis, fever and unexpected weight change. HENT: Positive for congestion, postnasal drip, sinus pressure and sneezing. Negative for ear pain, rhinorrhea, sinus pain, sore throat and trouble swallowing. Eyes: Negative for visual disturbance. Respiratory: Positive for cough, sputum production, shortness of breath and wheezing. Negative for hemoptysis and chest tightness. Cardiovascular: Positive for orthopnea. Negative for chest pain, palpitations, leg swelling and syncope. Gastrointestinal: Negative. Endocrine: Negative. Genitourinary: Negative. Musculoskeletal: Positive for gait problem ((poor balance, RLE amputation).). Negative for back pain and neck pain. Skin: Negative. Neurological: Negative for dizziness, seizures, syncope, light-headedness and headaches. Hematological: Negative. Psychiatric/Behavioral: Negative. BP 126/72 Pulse 52 Temp 97.6 Resp 18 Ht [Patient in wheelchari[ (0.00m) Wt 274 lb (124.3kg) SpO2 95% Physical Exam Vitals and nursing note reviewed. Constitutional: Appearance: He is normal weight. Comments: Sitting in wheelchair HENT: Right Ear: Tympanic membrane, ear canal and external ear normal. Left Ear: Tympanic membrane, ear canal and external ear normal. Mouth/Throat: Mouth: Mucous membranes are moist. Eyes: Pupils: Pupils are equal, round, and reactive to light. Cardiovascular: Rate and Rhythm: Regular rhythm. Bradycardia present. Heart sounds: Normal heart sounds. No murmur heard. Pulmonary: Effort: Pulmonary effort is normal. Breath sounds: Normal breath sounds. No wheezing, rhonchi or rales. Musculoskeletal: Cervical back: Neck supple. 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 Skin: General: Skin is warm and dry. Neurological: Mental Status: He is alert and oriented to person, place, and time. No visits with results within 1 Day(s) from this visit. Latest known visit with results is: Hospital Outpatient Visit on 08/22/2022 Component Date Value Ref Range Status Radiology Result 08/22/2022 ACTIONABLE (A) Final Comment: This report contains an incidental or actionable finding. This finding may be a new finding separate from the reason your provider ordered the imaging test or it may be an already known finding that needs additional or continued follow-up. Because of this incidental or actionable finding, you may need another test (imaging or a different type of test). Please contact your provider for the next steps. ASSESSMENT/PLAN: 1. SOB (shortness of breath) on exertion - ICD9: 786.05, ICD10: R06.02 (primary diagnosis) - Continue to use Albuterol as needed - CT findings showed possible ILD - Needs PFTs, recommend seeing Pulmonary - CONSULT TO PULMONARY MEDICINE 2. Postnasal drip - ICD9: 784.91, ICD10: R09.82 - FLUTICASONE PROPIONATE 50 MCG/ACTUATION NASAL SPRAY,SUSPENSION - SODIUM CHLORIDE 0.65 % NASAL SPRAY AEROSOL 3. Chronic diastolic congestive heart failure (HCC) - ICD9: 428.32, 428.0, ICD10: I50.32 - Appears euvolemic on exam today. Takes his Lasix three times a week. - Continue care with cardiology 4. Pulmonary nodule seen on imaging study - ICD9: 793.11, ICD10: R91.1 - Will need repeat study in 6 months. Reminder placed for February. 5. Need for pneumococcal vaccination - ICD9: V03.82, ICD10: Z23 - Advised to have completed at pharmacy New medication(s) prescribed today: Yes: Flonase. Discussed new medication dosage, usage, goals of therapy, and side effects. Patient has been apprised of any potential drug interactions to be aware of. Patient expresses understanding. Counseling completed in adopting health behaviors such as avoiding excessive alcohol use, avoid tobacco use, improve nutrition, and engage in physical activities. Copy of written care plan, clinical summary, treatment plan, new medications, goals, and self management requirements were given to patient. Alma Gill APRN.CNP documented in this encounter [facility] 09-07-2022 Miscellaneous Notes Pharmacy comment: Alternative Requested:PLEASE CHANGE THE DX CODE FOR MEDICARE PART B. documented in this encounter [facility] 09-07-2022 Miscellaneous Notes Order cancelled Priya Pedersen MA Addended by: ALMA GILL on: 09/07/2022 11:21 AM Modules accepted: Orders Please call [facility] and cancel order for nebulizer and Albuterol nebulizer solution. Order faxed. Priya Pedersen MA Please fax order for nebulizer to [facility] in [place]. documented in this encounter [facility] 09-07-2022 Miscellaneous Notes Marina at [facility] notified and will notify family. Suzanne Almaguer MA Referral for pulmonary medicine placed. Dr. Francisco Patel [facility] [place] ([facility]) Mail Code [id number] [address] [place] [address] Appointment:[phone] Marina with [facility] left message stating patient is having continued SOB and it is worse this week than last. States patient's lung sounds are diminished with the exception of the bilateral upper lobes, states they do not sound wet. States patient has no appetite and no other edema. Patient takes lasix 3 times a week. [facility] patient does not have a merchandise distributor and she did not know if Alma would want to refer him to one. States the animal trainer thinks his SOB is because of his blocked artery that they cannot unblock. Please advise. Precious Lacy MA documented in this encounter [facility] 09-04-2022 Miscellaneous Notes Last OV 06/2022 Patient's request for medication is as follows: Requested Prescriptions Signed Prescriptions Disp Refills isosorbide mononitrate ER (IMDUR) 30 mg 24 hr tablet 30 tablet 11 Sig: Take 1 tablet by mouth once daily. Authorizing Provider: TAMMY LOAIZA Prescription(s) as above. Please process accordingly. Tammy Loaiza APRN.EVANS documented in this encounter [facility] 08-29-2022 Miscellaneous Notes Pharmacy requesting refills: Last office visit 08/21/2022. Last refill 08/03/2022 nov 09/13/2022 Requested Prescriptions Pending Prescriptions Disp Refills gabapentin (NEURONTIN) 300 mg capsule [Pharmacy Med Name: GABAPENTIN 300 MG CAPSULE] 150 capsule 0 Sig: TAKE 2 CAPSULES BY MOUTH EVERY MORNING AND 3 CAPSULES AT BEDTIME FOR 30 DAYS. Please review and advise. Suzanne Almaguer MA pha documented in this encounter [facility] 08-29-2022 Miscellaneous Notes pharmacy electronically requesting refills as follows: Last seen 08/21/22 . Last refill 07/02/22 . Requested Prescriptions Pending Prescriptions Disp Refills hydrOXYzine HCl (ATARAX) 25 mg tablet [Pharmacy Med Name: HYDROXYZINE HCL 25 MG TABLET] 120 tablet 1 Sig: TAKE 1 TABLET BY MOUTH FOUR TIMES A DAY Please review and advise. Precious Lacy MA documented in this encounter [facility] 08-21-2022 History of Presen t illness Narrative Transitional Care Management TCM Eligibility Documentation The following information was gathered during the initial Patient Outreach Encounter. Date of Outreach: 08/13/2022 Outreach Attempt 1: Contact Made Date of Discharge 08/11/2022 Some recent data might be hidden Summary Discharged from: [facility] Admit Date: 08/08/22-08/11/22 Admitted for: Post PTCA Priya Pedersen MA Provider Documentation Mars Peterson is a 67 year old male here today for a follow up to recent hospitalization. I have reviewed the patient's hospital course including diagnostic testing performed during this hospitalization, their discharge medications, and my assessment and plan with the patient and any family members present at today's visit. SUMMARY OF WHAT HAPPENED WHILE I WAS IN THE HOSPITAL: You presented to the hospital for elective heart catheterization after abnormal stress test as an outpatient. This is occurred in the setting of having previously had bypass surgery years ago. Initially the heart catheterization was attempted through the right radial artery, but due to narrowing in the subclavian artery, the catheter was not able to advance all the way to the heart, so the left femoral artery approach was used instead. 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 The procedure was stopped and you were transferred to the ICU for monitoring overnight. Brilinta was initiated because of the artery dissection. Plavix was then substituted for Brilinta due to anticipated cost. The day after the heart catheterization, your creatinine boby to 1.79, indicating a drop in kidney function. The next 2 days, the creatinine is back down to 1.2, so this was likely a brief contrast-induced kidney injury. Ultrasound of the kidneys was normal. Once her kidney function was confirmed to return to normal, you are stable for discharge home HPI: Patient is here with his today. They both have noticed that he has been more SOB while moving and when laying down since his discharge. His oxygen levels have been normal at home. He denies any CP, edema, or dizziness. He hasn't made an appointment with cardiology yet. He has a home PT/OT, home skilled nurse that started last week Review of Systems Constitutional: Negative for chills, diaphoresis, fever, malaise/fatigue and weight loss. HENT: Negative. Eyes: Negative. Respiratory: Positive for cough and shortness of breath (with moving). Negative for sputum production and wheezing. Cardiovascular: Positive for orthopnea. Negative for chest pain and leg swelling. Gastrointestinal: Negative. Had some gas and bloating after being in the hospital Genitourinary: Negative. Musculoskeletal: Positive for back pain. Skin: Negative. Neurological: Positive for weakness (lower extremities) and headaches. Negative for dizziness. Endo/Heme/Allergies: Positive for environmental allergies. Vitals BP 122/68 Pulse 55 Temp 97.8 Resp 18 Ht [PAtient refused[ (0.00m) Wt 276 lb (125.2kg) SpO2 95% Physical Exam Vitals and nursing note reviewed. Constitutional: General: He is not in acute distress. Appearance: He is obese. Comments: Sitting in wheelchair HENT: Mouth/Throat: Mouth: Mucous membranes are moist. Eyes: Pupils: Pupils are equal, round, and reactive to light. Cardiovascular: Rate and Rhythm: Regular rhythm. Bradycardia present. Heart sounds: Normal heart sounds, S1 normal and S2 normal. Pulmonary: Effort: Pulmonary effort is normal. Breath sounds: Examination of the right-lower field reveals decreased breath sounds. Examination of the left-lower field reveals decreased breath sounds. Decreased breath sounds present. No wheezing, rhonchi or rales. Abdominal: General: Bowel sounds are normal. Palpations: Abdomen is soft. Tenderness: There is no abdominal tenderness. Musculoskeletal: Cervical back: Neck supple. Right lower leg: No edema. Left lower leg: No edema. 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 Skin: General: Skin is warm and dry. Findings: No erythema. Neurological: Mental Status: He is alert and oriented to person, place, and time. Psychiatric: Behavior: Behavior is cooperative. ASSESSMENT/PLAN: 1. SOB (shortness of breath) on exertion - ICD9: 786.05, ICD10: R06.02 (primary diagnosis) - Does not appear to be respiratory distress and vitals are stable. Check labs, if D-dimer elevated will order CT chest to rule out PE. He is not currently on any anticoagulation besides ASA. He was recently hospitalized. - D-DIMER - NT PRO BNP 2. Essential hypertension - ICD9: 401.9, ICD10: I10 - good control - Continue current medication(s) - Encouraged dietary sodium restriction/DASH diet - Recommended regular aerobic exercise. - Recommend home blood pressure monitoring, to bring results in on next visit - Goal of BP <130/80 3. Chronic diastolic congestive heart failure (HCC) - ICD9: 428.32, 428.0, ICD10: I50.32 - Taking Lasix 40 mg 3 times a week - Follow up with cardiology - NT PRO BNP 4. Peripheral vascular disease (HCC) - ICD9: 443.9, ICD10: I73.9 5. Post PTCA - ICD9: V45.82, ICD10: Z98.61 - Follow up with cardiology 6. Hyponatremia - ICD9: 276.1, ICD10: E87.1 - 135 on 08/11/22 7. Impaired mobility - ICD9: 799.89, ICD10: Z74.09 - Continue with home PT/OT. Alma Gill APRN.CNP August 21, 2022 3:26 PM documented in this encounter [facility] 08-21-2022 Miscellaneous Notes Form received from [facility] to be signed and faxed back placed on signing tray Priya Pedersen MA documented in this encounter [facility] 08-17-2022 Miscellaneous Notes Royer given verbal orders. Suzanne Almaguer MA Yes that is fine. Thank you. Royer PT from [facility] called and left a message requesting verbal orders to start PT one time a week this week, then 2 times for 4 weeks, then lastly 1 time a week for 4 weeks. Vm box is secure to leave messages. Priya Pedersen MA documented in this encounter [facility] 08-13-2022 Miscellaneous Notes Regi (RN) From [facility] is wondering if you will follow patient for home care orders. Has been discharged from [facility]. Please advise. Regi [phone]. Suzanne Almaguer MA documented in this encounter [facility] 08-10-2022 History of Past i llness Narrative Problem Noted Date Resolved Date AZRA (acute kidney injury) 08/10/20222022 documented as of this encounter (statuses as of 08/13/2022) [facility]23 History of Past illness Narrative* Problem Noted Date Resolved Date AZRA (acute kidney injury) 08/10/20222022 documented as of this encounter (statuses as of 08/17/2022) [address]23 History of Past illness Narrative* Problem Noted Date Resolved Date AZRA (acute kidney injury) 08/10/20222022 documented as of this encounter (statuses as of 08/21/2022) [address]23 History of Past illness Narrative* Problem Noted Date Resolved Date AZRA (acute kidney injury) 08/10/20222022 documented as of this encounter (statuses as of 08/23/2022) [address]23 History of Past illness Narrative* Problem Noted Date Resolved Date AZRA (acute kidney injury) 08/10/20222022 documented as of this encounter (statuses as of 08/24/2022) [address]23 History of Past illness Narrative* Problem Noted Date Resolved Date AZRA (acute kidney injury) 08/10/20222022 documented as of this encounter (statuses as of 08/30/2022) [address]23 History of Past illness Narrative* Problem Noted Date Resolved Date AZRA (acute kidney injury) 08/10/20222022 documented as of this encounter (statuses as of 08/30/2022) [address]23 History of Past illness Narrative* Problem Noted Date Resolved Date AZRA (acute kidney injury) 08/10/20222022 documented as of this encounter (statuses as of 09/04/2022) [address]23 History of Past illness Narrative* Problem Noted Date Resolved Date AZRA (acute kidney injury) 08/10/20222022 documented as of this encounter (statuses as of 09/07/2022) [address] History of Past illness Narrative* Problem Noted Date Resolved Date AZRA (acute kidney injury) 08/10/20222022 documented as of this encounter (statuses as of 09/07/2022) [address]23 History of Past illness Narrative* Problem Noted Date Resolved Date AZRA (acute kidney injury) 08/10/20222022 documented as of this encounter (statuses as of 09/07/2022) [address]23 History of Past illness Narrative* Problem Noted Date Resolved Date AZRA (acute kidney injury) 08/10/20222022 documented as of this encounter (statuses as of 09/16/2022) [address]23 History of Past illness Narrative* Problem Noted Date Resolved Date AZRA (acute kidney injury) 08/10/20222022 documented as of this encounter (statuses as of 09/21/2022) [address]23 History of Past illness Narrative* Problem Noted Date Resolved Date AZRA (acute kidney injury) 08/10/20222022 documented as of this encounter (statuses as of 10/09/2022) [address]23 History of Past illness Narrative* Problem Noted Date Resolved Date AZRA (acute kidney injury) 08/10/20222022 documented as of this encounter (statuses as of 10/12/2022) [address]23 History of Past illness Narrative* Problem Noted Date Resolved Date AZRA (acute kidney injury) 08/10/20222022 documented as of this encounter (statuses as of 10/16/2022) [address]23 History of Past illness Narrative* Problem Noted Date Resolved Date AZRA (acute kidney injury) 08/10/20222022 documented as of this encounter (statuses as of 10/31/2022) [address]23 History of Past illness Narrative* Problem Noted Date Resolved Date AZRA (acute kidney injury) 08/10/20222022 documented as of this encounter (statuses as of 11/01/2022) [address]23 History of Past illness Narrative* Problem Noted Date Resolved Date AZRA (acute kidney injury) 08/10/20222022 documented as of this encounter (statuses as of 11/08/2022) [address]23 History of Past illness Narrative* Problem Noted Date Resolved Date AZRA (acute kidney injury) 08/10/20222022 documented as of this encounter (statuses as of 11/09/2022) [address]23 History of Past illness Narrative* Problem Noted Date Resolved Date AZRA (acute kidney injury) 08/10/20222022 documented as of this encounter (statuses as of 11/12/2022) [address]23 History of Past illness Narrative* Problem Noted Date Diagnosed Date Resolved Date AZRA (acute kidney injury) 08/10/2022 CVA (cerebral vascular accident) 11/23/2021 11/20/2022 documented as of this encounter (statuses as of 11/21/2022) [address]23 History of Past illness Narrative* Problem Noted Date Diagnosed Date Resolved Date AZRA (acute kidney injury) 08/10/2022 CVA (cerebral vascular accident) 11/23/2021 11/20/2022 documented as of this encounter (statuses as of 11/21/2022) [address]23 History of Past illness Narrative* Problem Noted Date Diagnosed Date Resolved Date AZRA (acute kidney injury) 08/10/2022 CVA (cerebral vascular accident) 11/23/2021 11/20/2022 documented as of this encounter (statuses as of 11/24/2022) [address]23 History of Past illness Narrative* Problem Noted Date Diagnosed Date Resolved Date AZRA (acute kidney injury) 08/10/2022 CVA (cerebral vascular accident) 11/23/2021 11/20/2022 documented as of this encounter (statuses as of 11/29/2022) [address]23 History of Past illness Narrative* Problem Noted Date Diagnosed Date Resolved Date AZRA (acute kidney injury) 08/10/2022 CVA (cerebral vascular accident) 11/23/2021 11/20/2022 documented as of this encounter (statuses as of 12/11/2022) [address]23 History of Past illness Narrative* Problem Noted Date Diagnosed Date Resolved Date AZRA (acute kidney injury) 08/10/2022 CVA (cerebral vascular accident) 11/23/2021 11/20/2022 documented as of this encounter (statuses as of 12/13/2022) [address]23 History of Past illness Narrative* Problem Noted Date Diagnosed Date Resolved Date AZRA (acute kidney injury) 08/10/2022 CVA (cerebral vascular accident) 11/23/2021 11/20/2022 documented as of this encounter (statuses as of 12/17/2022) [address]23 History of Past illness Narrative* Problem Noted Date Diagnosed Date Resolved Date AZRA (acute kidney injury) 08/10/2022 CVA (cerebral vascular accident) 11/23/2021 11/20/2022 documented as of this encounter (statuses as of 12/17/2022) [address]23 History of Past illness Narrative* Problem Noted Date Diagnosed Date Resolved Date AZRA (acute kidney injury) 08/10/2022 CVA (cerebral vascular accident) 11/23/2021 11/20/2022 documented as of this encounter (statuses as of 12/18/2022) [address]23 History of Past illness Narrative* Problem Noted Date Diagnosed Date Resolved Date AZRA (acute kidney injury) 08/10/2022 CVA (cerebral vascular accident) 11/23/2021 11/20/2022 documented as of this encounter (statuses as of 12/27/2022) [address]23 History of Past illness Narrative* Problem Noted Date Diagnosed Date Resolved Date AZRA (acute kidney injury) 08/10/2022 CVA (cerebral vascular accident) 11/23/2021 11/20/2022 documented as of this encounter (statuses as of 01/16/2023) [address]23 History of Past illness Narrative* Problem Noted Date Diagnosed Date Resolved Date AZRA (acute kidney injury) 08/10/2022 CVA (cerebral vascular accident) 11/23/2021 11/20/2022 documented as of this encounter (statuses as of 01/22/2023) [address]23 History of Past illness Narrative* Problem Noted Date Diagnosed Date Resolved Date AZRA (acute kidney injury) 08/10/2022 CVA (cerebral vascular accident) 11/23/2021 11/20/2022 documented as of this encounter (statuses as of 02/08/2023) [address]23 History of Past illness Narrative* Problem Noted Date Diagnosed Date Resolved Date AZRA (acute kidney injury) 08/10/2022 CVA (cerebral vascular accident) 11/23/2021 11/20/2022 documented as of this encounter (statuses as of 02/15/2023) [address]23 History of Past illness Narrative* Problem Noted Date Diagnosed Date Resolved Date AZRA (acute kidney injury) 08/10/2022 CVA (cerebral vascular accident) 11/23/2021 11/20/2022 documented as of this encounter (statuses as of 02/16/2023) [address]23 History of Past illness Narrative* Problem Noted Date Diagnosed Date Resolved Date AZRA (acute kidney injury) 08/10/2022 CVA (cerebral vascular accident) 11/23/2021 11/20/2022 documented as of this encounter (statuses as of 02/18/2023) [address]23 History of Past illness Narrative* Problem Noted Date Diagnosed Date Resolved Date AZRA (acute kidney injury) 08/10/2022 CVA (cerebral vascular accident) 11/23/2021 11/20/2022 documented as of this encounter (statuses as of 02/20/2023) [address]23 History of Past illness Narrative* Problem Noted Date Diagnosed Date Resolved Date AZRA (acute kidney injury) 08/10/2022 CVA (cerebral vascular accident) 11/23/2021 11/20/2022 documented as of this encounter (statuses as of 02/26/2023) [address]23 History of Past illness Narrative* Problem Noted Date Diagnosed Date Resolved Date AZRA (acute kidney injury) 08/10/2022 CVA (cerebral vascular accident) 11/23/2021 11/20/2022 documented as of this encounter (statuses as of 02/26/2023) [address]23 History of Past illness Narrative* Problem Noted Date Diagnosed Date Resolved Date AZRA (acute kidney injury) 08/10/2022 CVA (cerebral vascular accident) 11/23/2021 11/20/2022 documented as of this encounter (statuses as of 02/28/2023) [address]23 History of Past illness Narrative* Problem Noted Date Diagnosed Date Resolved Date AZRA (acute kidney injury) 08/10/2022 CVA (cerebral vascular accident) 11/23/2021 11/20/2022 documented as of this encounter (statuses as of 02/28/2023) [address]23 History of Past illness Narrative* Problem Noted Date Diagnosed Date Resolved Date AZRA (acute kidney injury) 08/10/2022 CVA (cerebral vascular accident) 11/23/2021 11/20/2022 documented as of this encounter (statuses as of 03/05/2023) [address]23 History of Past illness Narrative* Problem Noted Date Diagnosed Date Resolved Date AZRA (acute kidney injury) 08/10/2022 CVA (cerebral vascular accident) 11/23/2021 11/20/2022 documented as of this encounter (statuses as of 03/10/2023) [address]23 History of Past illness Narrative* Problem Noted Date Diagnosed Date Resolved Date AZRA (acute kidney injury) 08/10/2022 CVA (cerebral vascular accident) 11/23/2021 11/20/2022 documented as of this encounter (statuses as of 04/03/2023) [address]23 History of Past illness Narrative* Problem Noted Date Diagnosed Date Resolved Date AZRA (acute kidney injury) 08/10/2022 CVA (cerebral vascular accident) 11/23/2021 11/20/2022 documented as of this encounter (statuses as of 04/16/2023) [address]23 History of Past illness Narrative* Problem Noted Date Diagnosed Date Resolved Date AZRA (acute kidney injury) 08/10/2022 CVA (cerebral vascular accident) 11/23/2021 11/20/2022 documented as of this encounter (statuses as of 04/16/2023) [address]23 History of Past illness Narrative* Problem Noted Date Diagnosed Date Resolved Date AZRA (acute kidney injury) 08/10/2022 CVA (cerebral vascular accident) 11/23/2021 11/20/2022 documented as of this encounter (statuses as of 04/16/2023) [address]23 History of Past illness Narrative* Problem Noted Date Diagnosed Date Resolved Date AZRA (acute kidney injury) 08/10/2022 CVA (cerebral vascular accident) 11/23/2021 11/20/2022 documented as of this encounter (statuses as of 04/17/2023) [address]23 History of Past illness Narrative* Problem Noted Date Diagnosed Date Resolved Date AZRA (acute kidney injury) 08/10/2022 CVA (cerebral vascular accident) 11/23/2021 11/20/2022 documented as of this encounter (statuses as of 04/24/2023) [address]23 History of Past illness Narrative* Problem Noted Date Diagnosed Date Resolved Date AZRA (acute kidney injury) 08/10/2022 CVA (cerebral vascular accident) 11/23/2021 11/20/2022 documented as of this encounter (statuses as of 04/27/2023) [address]23 History of Past illness Narrative* Problem Noted Date Diagnosed Date Resolved Date AZRA (acute kidney injury) 08/10/2022 CVA (cerebral vascular accident) 11/23/2021 11/20/2022 documented as of this encounter (statuses as of 05/03/2023) [address]23 History of Past illness Narrative* Problem Noted Date Diagnosed Date Resolved Date AZRA (acute kidney injury) 08/10/2022 CVA (cerebral vascular accident) 11/23/2021 11/20/2022 documented as of this encounter (statuses as of 06/20/2023) [address]23 History of Past illness Narrative* Problem Noted Date Diagnosed Date Resolved Date AZRA (acute kidney injury) 08/10/2022 CVA (cerebral vascular accident) 11/23/2021 11/20/2022 documented as of this encounter (statuses as of 2023) [address]23 History of Past illness Narrative* Problem Noted Date Diagnosed Date Resolved Date AZRA (acute kidney injury) 08/10/2022 CVA (cerebral vascular accident) 11/23/2021 11/20/2022 documented as of this encounter (statuses as of 06/27/2023) [address]23 History of Past illness Narrative* Problem Noted Date Diagnosed Date Resolved Date AZRA (acute kidney injury) 08/10/2022 CVA (cerebral vascular accident) 11/23/2021 11/20/2022 documented as of this encounter (statuses as of 06/27/2023) [address]23 History of Past illness Narrative* Problem Noted Date Diagnosed Date Resolved Date AZRA (acute kidney injury) 08/10/2022 CVA (cerebral vascular accident) 11/23/2021 11/20/2022 documented as of this encounter (statuses as of 07/19/2023) [address]23 History of Past illness Narrative* Problem Noted Date Diagnosed Date Resolved Date AZRA (acute kidney injury) 08/10/2022 CVA (cerebral vascular accident) 11/23/2021 11/20/2022 documented as of this encounter (statuses as of 07/22/2023) [address]23 History of Past illness Narrative* Problem Noted Date Diagnosed Date Resolved Date AZRA (acute kidney injury) 08/10/2022 CVA (cerebral vascular accident) 11/23/2021 11/20/2022 documented as of this encounter (statuses as of 07/26/2023) [address]23 History of Past illness Narrative* Problem Noted Date Diagnosed Date Resolved Date AZRA (acute kidney injury) 08/10/2022 CVA (cerebral vascular accident) 11/23/2021 11/20/2022 documented as of this encounter (statuses as of 08/05/2023) [address]23 History of Past illness Narrative* Problem Noted Date Diagnosed Date Resolved Date AZRA (acute kidney injury) 08/10/2022 CVA (cerebral vascular accident) 11/23/2021 11/20/2022 documented as of this encounter (statuses as of 08/06/2023) [address]23 History of Past illness Narrative* Problem Noted Date Diagnosed Date Resolved Date AZRA (acute kidney injury) 08/10/2022 CVA (cerebral vascular accident) 11/23/2021 11/20/2022 documented as of this encounter (statuses as of 08/16/2023) [address]23 History of Past illness Narrative* Problem Noted Date Diagnosed Date Resolved Date AZRA (acute kidney injury) 08/10/2022 CVA (cerebral vascular accident) 11/23/2021 11/20/2022 documented as of this encounter (statuses as of 08/19/2023) [address]23 History of Past illness Narrative* Problem Noted Date Diagnosed Date Resolved Date AZRA (acute kidney injury) 08/10/2022 CVA (cerebral vascular accident) 11/23/2021 11/20/2022 documented as of this encounter (statuses as of 08/21/2023) [address] History of Past illness Narrative* Problem Noted Date Diagnosed Date Resolved Date AZRA (acute kidney injury) 08/10/2022 CVA (cerebral vascular accident) 11/23/2021 11/20/2022 documented as of this encounter (statuses as of 08/23/2023) [address]31-2023 History of Past illness Narrative* Problem Noted Date Diagnosed Date Resolved Date AZRA (acute kidney injury) 08/10/2022 CVA (cerebral vascular accident) 11/23/2021 11/20/2022 documented as of this encounter (statuses as of 08/26/2023) [address]31-2023 History of Past illness Narrative* Problem Noted Date Diagnosed Date Resolved Date AZRA (acute kidney injury) 08/10/2022 CVA (cerebral vascular accident) 11/23/2021 11/20/2022 documented as of this encounter (statuses as of 08/30/2023) [facility]03-24-2023 Miscellaneous Notes* Telephone Encounter - Precious Lacy MA - 08/03/2022 7:51 AM EDT pharmacy electronically requesting refills as follows: Last seen 02/19/22 . Last refill 07/06/22 . Requested Prescriptions Pending Prescriptions Disp Refills gabapentin (NEURONTIN) 300 mg capsule [Pharmacy Med Name: GABAPENTIN 300 MG CAPSULE] 150 capsule 0 Sig: TAKE 2 CAPSULES BY MOUTH EVERY MORNING AND 3 CAPSULES AT BEDTIME FOR 30 DAYS. Please review and advise. Precious Lacy MA documented in this encounterTr[facility]ull [facility]03-[facility]23 Miscellaneous Notes* Telephone Encounter - Regi Aquino - 07/25/2022 3:51 PM EDT Patient calling to conform procedure is scheduled for 07/2922. Spoke with her. Please contact her with any instructions for the procedure. * Tele[place] En[place] Cas[place] [facility] [place] 07[place]25/2022 8:21 AM EDT Please schedule Direct PCI with Dr. Sarmiento on 08/08/2022. Please instruct patient on which medications to stop and keep taking. Someone will call the patient the day before to go over instructions. documented in this encounterTrumbull [facility]03-[facility]-2023 Miscellaneous Notes* Telephone Encounter - Percious Lacy MA - 07/13/2022 2:20 PM EST pharmacy electronically requesting refills as follows: Last seen 02/19/22 . Last refill 02/01/22 . Requested Prescriptions Pending Prescriptions Disp Refills lisinopril (ZESTRIL, PRINIVIL) 10 mg tablet [Pharmacy Med Name: LISINOPRIL 10 MG TABLET] 30 tablet 4 Sig: TAKE 1 TABLET BY MOUTH EVERY DAY Please review and advise. Precious Lacy MA documented in this encounterTrumbull [facility] Hospital02-24-2023 Miscellaneous Notes* Telephone Encounter - Precious Lacy MA - 07/06/2022 7:33 AM EST pharmacy electronically requesting refills as follows: Last seen 02/19/22 . Last refill 06/07/22 . Requested Prescriptions Pending Prescriptions Disp Refills gabapentin (NEURONTIN) 300 mg capsule [Pharmacy Med Name: GABAPENTIN 300 MG CAPSULE] 150 capsule 0 Sig: TAKE 2 CAPSULES BY MOUTH EVERY MORNING AND 3 CAPSULES AT BEDTIME FOR 30 DAYS. Please review and advise. Precious Lacy MA documented in this encounterTrumbull [facility] Hospital02-23-2023 Instructions* Patient Instructions* Tammy Loaiza APRN.CNP - 07/05/2022 3:43 PM EST We reviewed your stress test and echo today. Stress test shows a possible scar in the circumflex area. You were offered a left heart catheterization based on the stress test reports. We can do this here in [place] - we only take pictures and do not fix anything here. Please call me at [phone] to let me know if you would like to do this. Please increase you Imdur to 30 mg - 1 whole tablet I would recommend that you take lasix daily for the next 3 days to see if you have improvement in your breathing. If you have improvement we may need to consider this daily. Increase Pravastatin to 20 mg daily - for now take 2 of your 10 mg tablets. Continue all other meds Check fasting labs in 4 weeks. documented in this encounterTrumbull [facility] Hospital02-23-2023 History of Present illness Narrative* Tammy Loaiza APRN.TAG MACHINE OPERATOR - 07/05/2022 3:00 PM EST Images from the original note were not included. [facility] [place] Sudhir Amaro Department of Cardiovascular Medicine SECTION OF CLINICAL CARDIOLOGY OUTPATIENT VISIT DATE July 05, 2022 OUTPATIENT VISIT TYPE ESTABLISHED Patient Name: Mars Peterson : 1955 PRIMARY CARE PHYSICIAN: Alma Gill APRN.[place] CHIEF COMPLAINT: Patient presents with: Follow Up: Stress test results LINDA Interval Hx: Mr. Peterson comes for a follow up visit. The last office visit visit with Dr. Krause was 06/04/2022. Patient with 0 hospitalizations or ER visits since last OV. At last OV he was ordered a nuclear stress test to evaluate for complaints of dyspnea on exertion and chest discomfort. He is here to review those results. Since last office visit patient has been feeling about the same. Came to OV with spouse Still feeling SOB Worse with exertion Has to stop after short distance Has changed his diet since last OV - watching more diet No chest pain Slight improvement in his sx since starting Imdur. Has taken SL NTG - was helpful. Sx are similar to prior ND / bypass Bypass in 2001 - no records avaiable Adjustable bed - cannot lay flat due to SOB No PND Takes lasix PRN - could be used more often Denies LE edema Sometime will feel bloated. No palpitations or heart race IMPRESSION/PLAN: ASSESSMENT/PLAN: 1. 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 - reviewed option of repeat [facility] vs medical management. Patient agreeable to [facility]. - will increase Imdur to 30 mg daily - will increase pravastatin to 20 mg daily - CBC - COMP METABOLIC PANEL - MAGNESIUM BLD - LIPID PANEL BASIC - CARDIAC VOCATIONAL AUTO BODY INSTRUCTOR ORDER 2. Chronic diastolic congestive heart failure (HCC) - ICD9: 428.32, 428.0, ICD10: I50.32 - NYHA Functional Class difficult to assess due to limited exertion - Stage C Heart Failure - Most recent EF 57%, grade I DD - GDMT: Toprol and Lasix - Patient appears hypervolemic on exam. - increase lasix to daily (increase from PRN) for the next 3 days - Low sodium diet and fluid allowance reviewed - Advised to monitor for change in fluid status including worsening SOB, lower extremity edema or orthopnea. - Patient advised to continue daily weights and call the office with weight gain of 3 lbs in a day or 4 lbs in a week. 3. Essential hypertension - ICD9: 401.9, ICD10: I10 - fair control - Continue current medication(s) - Recommended regular aerobic exercise. - Recommend home blood pressure monitoring, to bring results in on next visit - Reviewed risks of HTN and principles of treatment - Goal of BP <130/80 4. Mixed hyperlipidemia - ICD9: 272.2, ICD10: E78.2 - Last FLP 01/2022 - LDL 130 - Increase current statin dose to pravastatin 20 mg daily - Low fat / low cholesterol diet - check fasting labs in 4 weeks 5. Abnormal stress test - ICD9: 794.39, ICD10: R94.39 - stress test shows area of scar in LCx territtory - unable to review any prior records from previous CABG - patient with worsening Sx of SOB - concern for anginal equivalent - - will undergo diagnostic LHC - plan of care pending cath results - increase Imdur to 30 mg daily. - CARDIAC VOCATIONAL AUTO BODY INSTRUCTOR ORDER I spent a total of 46 minutes on the date of the service which included preparing to see the patient, [id number] patient care, completing clinical documentation, performing a medically appropriate examination, counseling and educating the patient/family/caregiver, ordering medications, tests, or p rocedures, and communicating results to the patient/family/caregiver. Thank you very much for allowing me to assist in the care of Mars Job Peterson. Please do not hesitate to contact me if you have questions or concerns. Tammy Loaiza APRN.[facility] Cardiology Nurse Practitioner Section of Regional Cardiology [place] Dept of Cardiovascular Medicine [facility] [place] [address] [place] [id number] Office Office July 05, 2022 1:38 PM This note was partially generated using [employer] voice recognition system and may contain errors related to that system including grammar, punctuation, spelling, and words that may be inappropriate. CARDIAC STUDIES: LV Ejection Fraction (%) Date Value 02/20/2022 57 Last ECHO Result Conclusion ECHO Collected: 02/20/2022 12:04 PM (Final result) Impression: CONCLUSIONS: - Exam indication: Shortness of Breath - The left ventricle is normal in size. There is mild concentric left ventricular hypertrophy. Left ventricular systolic function is normal. EF = 57 5% (2D biplane) Grade I left ventricular diastolic dysfunction. - The right ventricle is normal in size. Right ventricular systolic function is low normal. Tricuspid annular displacement is 2.6 cm. - The left atrial cavity is mildly dilated. Val 35 ml/m . - The right atrial cavity is dilated. - There are no significant valvular abnormalities. - There is no pericardial effusion. - The patient has not had a prior CC echocardiographic exam for comparison. * * * Final * * * Last EKG Result Conclusion EKG Collected: 02/08/2022 4:17 PM (Preliminary result) Impression: SINUS RHYTHM WITH 1ST DEGREE A-V BLOCK LOW VOLTAGE QRS CANNOT RULE OUT ANTERIOR INFARCT , AGE UNDETERMINED ABNORMAL ECG NO PREVIOUS ECGS AVAILABLE LABS: Sodium (mmol/L) Date Value 02/08/2022 125 02/01/2022 131 Potassium (mmol/L) Date Value 02/08/2022 4.7 02/01/2022 4.6 BUN (mg/dL) Date Value 02/08/2022 7 02/01/2022 8 01/17/2021 8 07/15/2020 9 Creatinine (mg/dL) Date Value 02/08/2022 1.14 02/01/2022 1.32 01/17/2021 1.06 07/15/2020 1.18 Magnesium (mg/dL) Date Value 02/01/2022 2.0 Hemoglobin (g/dL) Date Value 02/01/2022 13.8 07/15/2020 13.3 No results found for: PROBNP No results found for: HSTNT Cholesterol, Total (mg/dL) Date Value 02/01/2022 204 HDL Cholesterol (mg/dL) Date Value 02/01/2022 39 Triglyceride (mg/dL) Date Value 02/01/2022 173 LDL Cholesterol (mg/dL) Date Value 02/01/2022 130 No results found for: TSH No results found for: INR There were no tests performed for review. PHYSICAL EXAMINATION: Vitals: BP 134/77 Pulse (!) 53 Ht 182.9 cm (6') Wt 125.6 kg (277 lb) SpO2 94% BMI 37.57 kg/m General: Well appearing, in no acute distress. Skin: No clubbing, no cyanosis. Eyes: Extra ocular movements intact Oropharynx: Teeth in good repair. Neck: No jugular venous distention, no carotid bruits, carotids have a normal upstroke, no palpablethyromegaly. Lungs: Diminished with rales in bases R>L, no wheezing or rhonchi. Heart: Regular rhythm, PMI not displaced, S1, S2 normal, no S3, no S4, no heaves, no rub and no murmur. Abdomen: Soft, nontender, bowel sounds normal, no palpable organomegaly, no bruits. Extremities: No peripheral edema . Grade 2/4 distal pulses bilaterally. Neuro: Oriented to person, place and time, alert, cooperative, gait coordinated. REVIEW OF SYSTEMS: GENERAL: Negative for: Weight loss or gain, Fever or Chills, Weakness and Sleep difficulties. + fatigue HEENT: Negative for: Headache, Impaired Vision, Glasses, Hearing Impairment, Ringing in Ears, Nosebleeds, Poor dental care, Bleeding Gums, Dentures NECK: Negative for: Swelling, Pain, Stiffness RESPIRATORY: Negative for: Cough, Blood in Sputum, + Shortness of breath, Wheezing, Apnea GASTROINTESTINAL: Negative for: Trouble swallowing, Heartburn, Change in bowel habits, Blood in stool, Dark black stools MUSCULOSKELETAL: Negative for: Muscle or +joint pain, Stiffness , Joint swelling NEUROLOGIC/PSYCHIATRIC: Negative for: Weakness, Paralysis, Numbness, Tingling, Tremor, Nervousness,Depressed mood, Memory loss SKIN: Negative for: Rashes, Itching HEMATOLOGICAL/LYMPHATIC: Negative for: Easy bruising , Easy bleeding ENDOCRINE: Negative for: Heat or cold intolerance, Excessive sweating, Frequent urination, Frequentthirst ALLERGIES: Patient has no known allergies. 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[facility]) Peripheral vascular disease (HCC) Umbilical hernia SOCIAL HISTORY: Social History Tobacco Use Smoking status: Former Smokeless tobacco: Former Types: Chew Vaping Use Vaping Use: Never used Substance Use Topics Alcohol use: Yes Comment: Occasional Drug use: Never FAMILY HISTORY: FAMILY HISTORY Problem Relation Age of Onset Ovarian cancer Mother other (afib) Mother COPD Mother Heart Father heart attack other (bladder cancer) Maternal Aunt Cancer Maternal Aunt Cancer Maternal Uncle Heart Paternal Uncle Leukemia Paternal Uncle I have confirmed and edited as necessary, the PFSH and ROS obtained by others. Tammy Loaiza, TECHNICAL APPLICATIONS SCIENTIST.TAG MACHINE OPERATOR CURRENT MEDICATIONS: Current Outpatient Medications Medication Sig gabapentin (NEURONTIN) 300 mg capsule TAKE 2 CAPSULES BY MOUTH EVERY MORNING AND 3 CAPSULES AT BEDTIME FOR 30 DAYS. hydrOXYzine HCl (ATARAX) 25 mg tablet TAKE 1 TABLET BY MOUTH FOUR TIMES A DAY omeprazole (PRILOSEC) 40 mg capsule TAKE 1 CAPSULE BY MOUTH ONCE DAILY isosorbide mononitrate ER (IMDUR) 30 mg 24 hr tablet Take 0.5 tablets by mouth once daily. pravastatin (PRAVACHOL) 10 mg tablet Take 1 tablet by mouth daily at bedtime. nitroglycerin sublingual (NITROSTAT) 0.4 mg SL tablet Dissolve 1 tablet under the tongue every 5 minutes as needed for chest pain. traZODone (DESYREL) 100 mg tablet 2 tablets daily at bedtime escitalopram oxalate (LEXAPRO) 20 mg tablet TAKE 1 TABLET BY MOUTH EVERY DAY acetaminophen (TYLENOL EXTRA STRENGTH) 500 mg tablet Take 2 tablets by mouth every 8 hours as needed for pain. FOR PAIN. lisinopril (ZESTRIL, PRINIVIL) 10 mg tablet Take 1 tablet by mouth once daily. metoprolol succinate ER (TOPROL XL) 25 mg 24 hr tablet TAKE 1 TABLET BY MOUTH EVERY DAY furosemide (LASIX) 40 mg tablet TAKE 1 TABLET BY MOUTH ONCE DAILY NEEDED. Zinc 50 mg tab Take 50 mg by mouth. aspirin, enteric coated (ASPIRIN, ENTERIC COATED) 81 mg EC tablet Take 81 mg by mouth once daily. ascorbic acid, vitamin C, (VITAMIN C) 500 mg tablet Take 500 mg by mouth once daily. multivit-min/folic/vit K/lycop (ONE-A-DAY MEN'S MULTIVITAMIN ORAL) Take by mouth once daily. Current Facility-Administered Medications Medication Dose Route Frequency perflutren lipid microspheres 1.3 mL in NaCl (PF) 0.9% 10 mL injection (DEFINITY) INTRAVENOUS DIRECTED PRN sodium chloride 0.9 % (flush) 10 mL (BD POSIFLUSH) 10 mL INTRAVENOUS DIRECTED PRN documented in this encounterTr[facility] Miscellaneous Notes* Telephone Encounter - AMA Robles - 06/28/2022 4:39 PM EST Patient was scheduled * Telephone Encounter - Disha Puri - 06/28/2022 12:32 PM EST First attempt at contacting patient, left VM to see if patient could come in for a sooner appointment with an VOICE OVER ARTIST to review stress test results * Telephone Encounter - Disha Puri - 06/28/2022 12:32 PM EST ----- Message ----- From: Dedrick Krause DO Sent: 06/26/2022 5:08 PM EST To: [facility] Normal nuclear stress test demonstrating ischemia. Patient should have follow-up as soon as possible. Apparently there is a plan follow-up on July 12. If this could be moved up, this would be ideal. ----- Message ----- documented in this encounterTr[facility]ull [facility]02-14-2023 Miscellaneous Notes* Telephone Encounter - Suzanne Almaguer MA - 06/26/2022 2:31 PM EST Patient notified. Suzanne Almaguer MA * Telephone Encounter - Suzanne Almaguer MA - 06/26/2022 2:31 PM EST ----- Message from Alma Gill APRN.TAG MACHINE OPERATOR sent at 06/26/2022 12:35 PM EST ----- Please let the patient know that his stress test was slightly abnormal and recommend that he follows up with Dr. Krause. I will forward this to him as well. Please see result note for Ivania Peterson as well to give her results. documented in this encounterTrumbull [facility]02-07-2023 History of Present illness Narrative* KERVIN Decker - 06/19/2022 9:30 AM EST RADIOLOGY SERVICE PROGRESS NOTE SERVICE DATE: 06/19/2022 SERVICE TIME: 10:38 AM PATIENT IDENTITY VERIFICATION COMPLETED USING TWO (2) STANDARD IDENTIFIERS: Name and Date of confirmed by patient verbally and Name and Date of confirmed by identification band FALL SCREENING: Has the patient had 2 falls in the last year or 1 fall with injury or currently using an Ambulatory Assistive Device (Walker, Cane, Wheelchair, Crutches, etc.)? Yes, Patient High Riskfor Falls What interventions were put in place to prevent falls during this visit? Instructed Patient to Callfor Help if Needed and Increased Observations by Caregivers PATIENT GENDER DATA: .male ALLERGIES: Reviewed and unchanged MEDICATIONS REVIEWED: Not applicable PATIENT RELEVANT IMPLANT DATA REVIEWED: Not Applicable CREATININE: Creatinine Date Value Ref Range Status 02/08/2022 1.14 0.73 - 1.22 mg/dL Final 02/01/2022 1.32 (H) 0.73 - 1.22 mg/dL Final 01/17/2021 1.06 0.73 - 1.22 mg/dL Final Estimated Glomerular Filtration Rate Date Value Ref Range Status 02/08/2022 70 >=60 mL/min/1.73m Final Comment: Estimated Glomerular Filtration Rate (eGFR) is calculated using the 2020 CKD-EPI creatinine equation. This equation utilizes serum creatinine, sex, and age as parameters. The creatinine assay has traceable calibration to isotope dilution- mass spectrometry. Refer to KDIGO guidelines for clinical interpretation. In patients with unstable renal function, e.g. those with acute kidney injury, the eGFRmay not accurately reflect actual GFR. eGFR- Date Value Ref Range Status 01/17/2021 >60 Final P.O.C.T. RESULTS: N/A June 19, [address] PERFORMED: No IV SITE: Ambulatory: A peripheral IV was started in the Right forearm with a Angio cath: 22 gauge. POST EXAM PIV STATUS: Discontinued PROCEDURE TYPE: NM Stress: 16.0 mCi [id number] was administered IV for Rest Imaging at 09:40 by . 47.1 mCi [id number] was administered IV for Stress Imaging at 10:28 by . PATIENT DISCHARGED TO: Ambulatory patient, left DC department area. A Diagnostic radioactive procedure has taken place, with no further precautions necessary other than routine body substance precautions. More information regarding radiation safety can be found usingthis link: [email or web address] SIGNATURE: KERVIN Decker PATIENT NAME: Mars Peterson DATE: June 19, 2022 TIME: 10:38 AM PAGER/CONTACT #: documented in this encounterTrumbull [facility] Hospital02-06-2023 Miscellaneous Notes* Telephone Encounter - Sarai Martínez RN - 06/18/2022 2:57 PM EST Spoke with patient's regarding reminder for stress test tomorrow and given instructions. documented in this encounterTrumbull [facility] Hospital01-26-2023 Miscellaneous Notes* Telephone Encounter - Precious Lacy MA - 06/07/2022 9:20 AM EST pharmacy electronically requesting refills as follows: Last seen 02/19/22 . Last refill 05/08/22 . Requested Prescriptions Pending Prescriptions Disp Refills gabapentin (NEURONTIN) 300 mg capsule [Pharmacy Med Name: GABAPENTIN 300 MG CAPSULE] 150 capsule 0 Sig: TAKE 2 CAPSULES BY MOUTH EVERY MORNING AND 3 CAPSULES AT BEDTIME FOR 30 DAYS. Please review and advise. Precious Lacy MA documented in this encounterTrumbull [facility] Hospital01-24-2023 Miscellaneous Notes* Telephone Encounter - Adrianne Becerra APRN.CNP - 06/05/2022 1:26 PM EST Called and spoke to patient's . She handles his appts. She would like to call office back with possible dates she can bring her in. The only time she can bring him to appts are on days she is off of work. Adrianne Becerra APRN.CNP documented in this encounterTrumbull [facility] Hospital01-23-2023 History of Present illness Narrative* Dedrick Krause DO - 06/04/2022 11:30 AM EST Images from the original note were not included. [facility] SECTION OF [facility] OUTPATIENT VISIT DATE June 04, 2022 PRIMARY CARE PHYSICIAN: Alma Gill [address] [place] [address] HISTORY OF PRESENT ILLNESS: Mr. Peterson is a 66 year old male. The patient presents to establish care due to history of chronicdiastolic heart failure and coronary disease as well as a recent abnormal EKG. The patient has a prior history of coronary disease having had coronary bypass grafting x4 remotely. Recent echocardiogram confirms normal systolic function and no significant valvular or structural heart disease. The patient is lives at home with his who accompanies him today. He has dyspnea with more extremes of exertion and notes at x9 distinct chest discomfort without radiation or other associated symptoms. He was due to have nuclear stress imaging but unfortunately had to cancel due to illness. The patient had had difficulty with to statins in the past which sounds like atorvastatin and lovastatin due to myalgias. Due to this he has not been retrial of another statins. He denies orthopnea, paroxysmal nocturnal dyspnea, palpitations, near- syncope or syncope. Review of the chart he has chronically low sodium. He admits to "snacking too much. "He is a non-smoker having quit remotely but unfort unately drinks a case to a case and a half of seltzers per week. He states 3-6 per evening depending on who comes over. He does not eat heart healthy meals. He is trying to watch his sodium. He is unable to exercise due to history of below the knee amputation on the right. Cardiac risk factors: Age, gender, hypertension, hyperlipidemia, possible prediabetes, prior tobacco abuse, peripheral arterial disease, known CAD Impression: 1. Chronic diastolic heart failure 2. Chest discomfort 3. Recent abnormal EKG 4. History cortices status post chordee bypass grafting x4 remotely, disease and anatomy unknown 5. History hypertension 6. History hyperlipidemia 7. History of impaired fasting blood sugar from review of chart 8. Hyponatremia 9. Increased alcohol use 10. History of right BKA PLAN AND RECOMMENDATIONS: The patient has symptoms which could represent angina or cardiac decompensation. From my standpointhe does not appear volume overloaded per se. We discussed the need for further treatment of his potential angina and need to perform nuclear stress imaging. In the interim we will start isosorbide mononitrate 15 mg daily. He will additionally plaque stabilization therapy for which we will start prav astatin 10 mg at bedtime. We have consulted the CHF clinic here as well to help with management andtreatment from a dietary and lifestyle standpoint of his chronic heart failure. We had a long discussion with patient regarding his diet and lifestyle and need for drastic improvement to help improvehis cardiovascular risk factors and improve his overall quality of life. We discussed the importance and worrisome nature of hyponatremia. We discussed complete alcohol cessation for now at this moment. Fluid and sodium restriction as well as daily weights was also discussed but will be reemphasized at his CHF clinic visit. We will follow-up with him in a few weeks time regardless for reevaluation and to review testing as well as his response to therapy. Vitals: BP 126/68 Pulse 63 Ht 182.9 cm (6') Wt 128.8 kg (284 lb) SpO2 96% BMI 38.52 kg/m Physical Exam Vitals reviewed. Constitutional: General: He is not in acute distress. Appearance: Normal appearance. He is well-developed. He is not diaphoretic. HENT: Head: Normocephalic and atraumatic. Right Ear: External ear normal. Left Ear: External ear normal. Nose: Nose normal. Eyes: General: No scleral icterus. Right eye: No discharge. Left eye: No discharge. Pupils: Pupils are equal, round, and reactive to light. Neck: Thyroid: No thyromegaly. Vascular: No carotid bruit or JVD. Cardiovascular: Rate and Rhythm: Normal rate and regular rhythm. Heart sounds: No murmur heard. No friction rub. No gallop. Pulmonary: Effort: Pulmonary effort is normal. No respiratory distress. Breath sounds: Normal breath sounds. No wheezing or rales. Abdominal: General: Bowel sounds are normal. Palpations: Abdomen is soft. Musculoskeletal: General: Normal range of motion. Cervical back: Neck supple. Skin: General: Skin is warm and dry. Capillary Refill: Capillary refill takes less than 2 seconds. Coloration: Skin is not pale. Neurological: Mental Status: He is alert and oriented to person, place, and time. Cranial Nerves: No cranial nerve deficit. Psychiatric: Mood and Affect: Mood normal. Mood is not anxious or depressed. Behavior: Behavior normal. Thought Content: Thought content normal. Judgment: Judgment normal. Review of Systems Constitutional: Positive for fatigue. Negative for activity change, appetite change and unexpected weight change. HENT: Negative for ear pain and trouble swallowing. Eyes: Negative for pain and visual disturbance. Respiratory: Positive for shortness of breath. Negative for chest tightness. Cardiovascular: Positive for chest pain and leg swelling. Negative for palpitations. Gastrointestinal: Negative for abdominal pain and blood in stool. Endocrine: Negative for cold intolerance and heat intolerance. Genitourinary: Negative for dysuria, hematuria and scrotal swelling. Musculoskeletal: Positive for arthralgias, back pain and gait problem. Negative for myalgias. Skin: Negative for pallor and rash. Allergic/Immunologic: Negative for immunocompromised state. Neurological: Negative for dizziness, syncope and light-headedness. Hematological: Negative for adenopathy. Does not bruise/bleed easily. Psychiatric/Behavioral: Negative for sleep disturbance. The patient is not nervous/anxious. PAST MEDICAL HISTORY Diagnosis Date CHF (congestive heart failure) (HCC) Chronic low back pain Coronary artery disease CVA (cerebral vascular accident) ([facility]) DJD (degenerative joint disease) Essential hypertension Heart attack (HCC) 2000 States his previous animal trainer told him he had a heart attack based on EKG (in [place]) Neuropathy Osteomyelitis of foot (HCC) Peripheral vascular disease (HCC) Umbilical hernia PAST SURGICAL HISTORY Procedure Laterality Date BACK SURGERY HX 2017 CABG (1) VEIN GRAFT & ARTERIAL GRAFT 2002 CABG x4 FINGER AMPUTATION (SPECIFY DIGIT) HX HIP SURGERY HX 2000 1999, 2019 LEG AMPUTATION HX Right 2018 PAST SURGICAL HISTORY OF coccyx REMV CATARACT EXTRACAP,INSERT LENS Bilateral Social History Tobacco Use Smoking status: Former Smokeless tobacco: Former Types: Chew Vaping Use Vaping Use: Never used Substance Use Topics Alcohol use: Yes Comment: Occasional Drug use: Never FAMILY HISTORY Problem Relation Age of Onset Ovarian cancer Mother other (afib) Mother COPD Mother Heart Father heart attack other (bladder cancer) Maternal Aunt Cancer Maternal Aunt Cancer Maternal Uncle Heart Paternal Uncle Leukemia Paternal Uncle ALLERGIES No Known Allergies CURRENT MEDICATIONS: omeprazole (PRILOSEC) 40 mg capsule^TAKE 1 CAPSULE BY MOUTH ONCE DAILY^Disp: 90 capsule^Rfl: 1 traZODone (DESYREL) 100 mg tablet^2 tablets daily at bedtime^Disp: 180 tablet^Rfl: 1 gabapentin (NEURONTIN) 300 mg capsule^TAKE 2 CAPSULES BY MOUTH EVERY MORNING AND 3 CAPSULES AT BEDTIME FOR 30 DAYS.^Disp: 150 capsule^Rfl: 0 escitalopram oxalate (LEXAPRO) 20 mg tablet^TAKE 1 TABLET BY MOUTH EVERY DAY^Disp: 30 tablet^Rfl: 2 hydrOXYzine HCl (ATARAX) 25 mg tablet^TAKE 1 TABLET BY MOUTH 4 TIMES A DAY^Disp: 120 tablet^Rfl: 1 nitroglycerin sublingual (NITROQUICK) 0.3 mg SL tablet^Dissolve 1 tablet under the tongue every 5 minutes as needed for chest pain.^Disp: 100 tablet^Rfl: 0 acetaminophen (TYLENOL EXTRA STRENGTH) 500 mg tablet^Take 2 tablets by mouth every 8 hours as needed for pain. FOR PAIN.^Disp: 90 tablet^Rfl: 0 lisinopril (ZESTRIL, PRINIVIL) 10 mg tablet^Take 1 tablet by mouth once daily.^Disp: 30 tablet^Rfl:4 metoprolol succinate ER (TOPROL XL) 25 mg 24 hr tablet^TAKE 1 TABLET BY MOUTH EVERY DAY^Disp: 90 tablet^Rfl: 1 furosemide (LASIX) 40 mg tablet^TAKE 1 TABLET BY MOUTH ONCE DAILY NEEDED.^Disp: 30 tablet^Rfl: 2 Zinc 50 mg tab^Take 50 mg by mouth.^Disp: ^Rfl: aspirin, enteric coated (ASPIRIN, ENTERIC COATED) 81 mg EC tablet^Take 81 mg by mouth once daily.^Disp: ^Rfl: ascorbic acid, vitamin C, (VITAMIN C) 500 mg tablet^Take 500 mg by mouth once daily.^Disp: ^Rfl: multivit-min/folic/vit K/lycop (ONE-A-DAY MEN'S MULTIVITAMIN ORAL)^Take by mouth once daily.^Disp: ^Rfl: Dedrick Krause DO, FACC, FACOI Clinical and Preventive Cardiology Department of Medicine and Division of Cardiology, [facility] Heel Gummerroof technician [facility] Heel Gummer of Congestive Heart Failure [facility] Cardiology Office Heel Gummer [facility] Staff Wood Cut Engraver, Sudhir Ashraf Department of Cardiovascular Medicine/Heart and Vascular [place], [facility] Clinical Threshing Machine Operator Profressor of Medicine, [facility] of Medicine - [facility] Please note: This note has been produced using speech recognition software and may contain errors related to that system including jessica, punctuation, spelling, words, gender and phrases that may be inappropriate. documented in this encounterTrumbull Memorial Hospital01-20-2023 Miscellaneous Notes* Telephone Encounter - Suzanne Almaguer MA - 06/01/2022 5:18 PM EST Faxed. Placed on [facility]'s desk. Suzanne Almaguer MA * Telephone Encounter - Alma Gill APRN.CNP - 06/01/2022 5:15 PM EST Form completed. Ready to fax. * Telephone Encounter - Priya Pedersen MA - 06/01/2022 7:39 AM EST Form received from [facility] placed in signing tray. Priya Pedersen MA documented in this encounterTrumbull Memorial Hospital01-04-2023 Miscellaneous Notes* Telephone Encounter - Suzanne Almaguer MA - 05/16/2022 11:09 AM EST Left message on [employer] to call us back and let us know if he is holding the trazodone, due to taking tramadol. Suzanne Almaguer MA * Telephone Encounter - Alma Gill APRN.EVANS - 05/16/2022 11:03 AM EST Please clarify with the patient's if he is taking it or not. I think we were holding it due tohim taking Tramadol as well. * Telephone Encounter - Suzanne Almaguer MA - 05/16/2022 10:44 AM EST Pharmacist marcelo on stating the rx from 03/04/2022 for trazodone takes take one tablet by mouth daily at bedtime, hold while taking trazodone. He is requesting new rx to be sent it.(This is in history crossed out) please advise. If you want us to contact pharmacist at [phone]). Thanks. Suzanne Almaguer MA documented in this encounterTrumbull Memorial Hospital12-27-2022 Miscellaneous Notes* Telephone Encounter - Suzanne Almaguer MA - 05/08/2022 5:24 PM EST Was faxed by [facility]. Suzanne Almaguer MA * Telephone Encounter - Alma Gill APRN.CNP - 05/08/2022 5:04 PM EST Form completed for [facility]. Please fax back. Thank you. * Telephone Encounter - Precious Lacy MA - 05/03/2022 1:39 PM EST [facility] Prescription - Detailed Written Order placed on Alma Gill TAG MACHINE OPERATOR desk to be signed. Precious Lacy MA documented in this encounterTrumbull Memorial Hospital12-27-2022 Miscellaneous Notes* Telephone Encounter - Suzanne Almaguer MA - 05/08/2022 4:26 PM EST Pharmacy requesting refills: Last office visit 02/19/2022. Last refill 04/10/2022 nov none Requested Prescriptions Pending Prescriptions Disp Refills gabapentin (NEURONTIN) 300 mg capsule [Pharmacy Med Name: GABAPENTIN 300 MG CAPSULE] 150 capsule 0 Sig: TAKE 2 CAPSULES BY MOUTH EVERY MORNING AND 3 CAPSULES AT BEDTIME FOR 30 DAYS. Please review and advise. Suzanne Almaguer MA documented in this encounterTrumbull Memorial Hospital12-21-2022 Miscellaneous Notes* Telephone Encounter - Suzanne Almaguer MA - 05/02/2022 7:31 AM EST Faxed. Suzanne Almaguer MA * Telephone Encounter - Alma Gill APRN.CNP - 05/01/2022 5:25 PM EST Forms signed. Please fax back. * Telephone Encounter - Priya Pedersen MA - 04/26/2022 7:52 AM EST PT forms placed in signing tray. Priya Pedersen MA documented in this [facility]12-21-2022 Miscellaneous Notes* Telephone Encounter - Precious Lacy MA - 05/02/2022 7:30 AM EST pharmacy electronically requesting refills as follows: Last seen 02/19/22 . Last refill both 02/01/22 . Requested Prescriptions Pending Prescriptions Disp Refills escitalopram oxalate (LEXAPRO) 20 mg tablet [Pharmacy Med Name: ESCITALOPRAM 20 MG TABLET] 30 tablet 2 Sig: TAKE 1 TABLET BY MOUTH EVERY DAY hydrOXYzine HCl (ATARAX) 25 mg tablet [Pharmacy Med Name: HYDROXYZINE HCL 25 MG TABLET] 120 tablet 1 Sig: TAKE 1 TABLET BY MOUTH 4 TIMES A DAY Please review and advise. Precious Lacy MA documented in this [facility]12-20-2022 Miscellaneous Notes* Telephone Encounter - Precious Lacy MA - 05/01/2022 2:03 PM EST Order faxed to [employer] [facility]. Precious Lacy MA * Telephone Encounter - Alma Gill APRN.CNP - 05/01/2022 1:51 PM EST Order placed and signed. Please fax back to [facility]. * Telephone Encounter - Precious Lacy MA - 04/30/2022 2:08 PM EST Trinh Solomon from [employer] left message stating patient's wheelchair order from June has expiredand patient was not eligible at that time for a new chair and now he is. Please file new order to be faxed to [facility] [phone]. Thanks! Precious Lacy MA documented in this encounterTrumbull Memorial Hospital12-08-2022 Miscellaneous Notes* Telephone Encounter - Priya Pedersen MA - 04/19/2022 2:57 PM EST Forms have been faxed Priya Pedersen MA * Telephone Encounter - Alma Gill APRN.EVANS - 04/19/2022 2:24 PM EST Forms completed- please fax back. * Telephone Encounter - Priya Pedersen MA - 04/19/2022 7:21 AM EST There three forms from [facility] for patients PT, placed in signing tray. Priya Pedersen MA documented in this encounterTrumbull Memorial Hospital11-30-2022 Miscellaneous Notes* Telephone Encounter - Suzanne Almaguer MA - 04/11/2022 7:59 AM EST Faxed. Placed on [facility] desk. Suzanne Almaguer MA * Telephone Encounter - Alma Gill APRN.CNP - 04/10/2022 5:36 PM EST Form signed. Please fax back. * Telephone Encounter - Priya Pedersen MA - 04/10/2022 11:05 AM EST PT reassessment from [facility] placed in signing tray. Priya Pedersen MA documented in this [facility]11-28-2022 Miscellaneous Notes* Telephone Encounter - Priya Pedersen MA - 04/09/2022 5:23 PM EST Patient requesting refills as follows: Last Office Visit 02/19/22. Last Refill 03/05/22. Requested Prescriptions Pending Prescriptions Disp Refills gabapentin (NEURONTIN) 300 mg capsule [Pharmacy Med Name: GABAPENTIN 300 MG CAPSULE] 150 capsule 0 Sig: TAKE 2 CAPSULES BY MOUTH EVERY MORNING AND 3 CAPSULES DAILY AT BEDTIME. DO ALL THIS FOR 30 DAYS. Please review and advise. Priya Pedersen MA documented in this [facility]10-25-2022 Miscellaneous Notes* Telephone Encounter - Priya Pedersen MA - 03/06/2022 11:56 AM EDT Form faxed. Priya Pedersen MA * Telephone Encounter - Alma Gill APRN.CNP - 03/06/2022 11:54 AM EDT Form signed. Thank you. * Telephone Encounter - Priya Pedersen MA - 03/06/2022 11:17 AM EDT Form received from [facility] Walter needing providers signature. Form has been placed in signing tray. Priya Pedersen MA documented in this [facility]10-24-2022 Miscellaneous Notes* Telephone Encounter - Priya Pedersen MA - 03/05/2022 4:05 PM EDT Patient's requesting refills as follows: Last Office Visit 02/19/22. Pharmacy won't let them bean picker the new script till the sig has been updated to BID at bedtime Requested Prescriptions Pending Prescriptions Disp Refills traZODone (DESYREL) 100 mg tablet 180 tablet 1 Si tablets daily at bedtime Please review and advise. Priya Pedersen MA documented in this encounterTrumbull Memorial Hospital10-20-2022 Miscellaneous Notes* Telephone Encounter - Priya Pedersen MA - 03/01/2022 7:42 AM EDT Pharmacy has valid script Priya Pedersen MA documented in this encounterTrumbull Memorial Hospital10-10-2022 History of Present illness Narrative* Alma Gill APRN.TAG MACHINE OPERATOR - 02/19/2022 3:08 PM EDT Images from the original note were not included. CHIEF COMPLAINT: Mars Peterson is a 66 year old male who presents for follow up for SOB and CHF. I reviewed past medical, surgical, social, and family histories today and updated chart. Allergies, chronic medications, and supplements were also reviewed. Hasn't noticed a difference in breathing No swelling in LLL Still taking Lasix once a day CXR did not show any acute findings, only chronic pleural changes Sores on buttocks are very painful Right side has started weeping Left side is still large Wounds are almost open. has been applying Calmoseptine and the foam dressings Still waiting on hospital bed and overlay. The history is provided by the patient. No consumer relations complaint clerk was used. PAST MEDICAL HISTORY Diagnosis Date CHF (congestive heart failure) (HCC) Chronic low back pain Coronary artery disease CVA (cerebral vascular accident) (HCC) DJD (degenerative joint disease) Essential hypertension Neuropathy Osteomyelitis of foot (HCC) Peripheral vascular disease (HCC) Umbilical hernia PAST SURGICAL HISTORY Procedure Laterality Date BACK SURGERY HX 2017 CABG (1) VEIN GRAFT & ARTERIAL GRAFT FINGER AMPUTATION (SPECIFY DIGIT) HX HIP SURGERY HX 2000, 2019 LEG AMPUTATION HX Right 2018 PAST SURGICAL HISTORY OF coccyx REMV CATARACT EXTRACAP,INSERT LENS Bilateral Social History Tobacco Use Smoking status: Former Smokeless tobacco: Former Types: Chew Vaping Use Vaping Use: Never used Substance Use Topics Alcohol use: Yes Comment: Occasional Drug use: Never ALLERGIES No Known Allergies Family History Problem Relation Age of Onset Ovarian cancer Mother other (afib) Mother Heart Father Heart Paternal Uncle Leukemia Paternal Uncle Cancer Maternal Uncle other (bladder cancer) Maternal Aunt Cancer Maternal Aunt Current Outpatient Medications Medication Sig Dispense Refill traMADol 100 mg TM24 Take 100 mg by mouth once daily. gabapentin (NEURONTIN) 300 mg capsule Take 2 capsules by mouth every morning AND 3 capsules daily at bedtime. Do all this for 30 days. 150 capsule 0 hydrOXYzine HCl (ATARAX) 25 mg tablet Take 1 tablet by mouth four times daily. 120 tablet 1 lisinopril (ZESTRIL, PRINIVIL) 10 mg tablet Take 1 tablet by mouth once daily. 30 tablet 4 escitalopram oxalate (LEXAPRO) 20 mg tablet Take 1 tablet by mouth once daily. 30 tablet 2 omeprazole (PRILOSEC) 40 mg capsule TAKE 1 CAPSULE BY MOUTH ONCE DAILY 30 capsule 3 metoprolol succinate ER (TOPROL XL) 25 mg 24 hr tablet TAKE 1 TABLET BY MOUTH EVERY DAY 90 tablet 1 furosemide (LASIX) 40 mg tablet TAKE 1 TABLET BY MOUTH ONCE DAILY NEEDED. 30 tablet 2 nitroglycerin sublingual (NITROQUICK) 0.3 mg SL tablet Dissolve 0.3 mg under the tongue every 5 minutes as needed. Zinc 50 mg tab Take 50 mg by mouth. aspirin, enteric coated (ASPIRIN, ENTERIC COATED) 81 mg EC tablet Take 81 mg by mouth once daily. ascorbic acid, vitamin C, (VITAMIN C) 500 mg tablet Take 500 mg by mouth once daily. multivit-min/folic/vit K/lycop (ONE-A-DAY MEN'S MULTIVITAMIN ORAL) Take by mouth once daily. traZODone (DESYREL) 100 mg tablet Take 1 tablet by mouth daily at bedtime. Hold while taking Trazodone 180 tablet 1 Current Facility-Administered Medications Medication Dose Route Frequency Provider Last Rate Last Admin perflutren lipid microspheres 1.3 mL in NaCl (PF) 0.9% 10 mL injection (DEFINITY) INTRAVENOUS DIRECTED PRN Alma Gill APRN.EVANS sodium chloride 0.9 % (flush) 10 mL (BD POSIFLUSH) 10 mL INTRAVENOUS DIRECTED PRN Alma Gill APRN.EVANS Review of Systems Constitutional: Negative for appetite change, chills, diaphoresis, fatigue, fever and unexpected weight change. Respiratory: Positive for shortness of breath. Negative for cough, chest tightness and wheezing. Cardiovascular: Negative for chest pain, palpitations and leg swelling. Gastrointestinal: Negative for abdominal pain, constipation, diarrhea, nausea and vomiting. Genitourinary: Negative for dysuria, hematuria and urgency. Musculoskeletal: Positive for gait problem (poor balance, RLE amputation). Skin: Positive for color change (wound on bilateral buttocks). Neurological: Positive for weakness (lower extremities). Psychiatric/Behavioral: Negative for dysphoric mood and sleep disturbance. The patient is not nervous/anxious. BP 126/78 Pulse 59 Temp 97.7 Resp 16 Ht [Patient refused[ (0.00m) Wt 279 lb (126.6kg) SpO2 94% Physical Exam Vitals and nursing note reviewed. Constitutional: General: He is not in acute distress. Appearance: He is obese. Comments: Sitting in wheelchair HENT: Head: Normocephalic. Mouth/Throat: Mouth: Mucous membranes are moist. Pharynx: Oropharynx is clear. Eyes: Pupils: Pupils are equal, round, and reactive to light. Cardiovascular: Rate and Rhythm: Normal rate and regular rhythm. Heart sounds: Normal heart sounds, S1 normal and S2 normal. No murmur heard. Pulmonary: Effort: Pulmonary effort is normal. No respiratory distress. Breath sounds: Normal air entry. Examination of the right-lower field reveals decreased breath sounds. Examination of the left-lower field reveals decreased breath sounds. Decreased breath sounds present. No wheezing, rhonchi or rales. Musculoskeletal: Left lower leg: No edema. 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 Skin: General: Skin is warm and dry. Findings: Wound present. Comments: Bilateral pressure sores to buttocks. Wounds show evidence of shearing and are close to opening. Trace amount of serous drainage noted on foam dressing. Underlying purple-red skin tone. Nonblanching. Neurological: Mental Status: He is alert and oriented to person, place, and time. Motor: Weakness (in all extremities) present. Gait: Gait abnormal. Psychiatric: Mood and Affect: Mood normal. Affect is flat. Behavior: Behavior is cooperative. Thought Content: Thought content normal. Some elements of above documentation were copied from my progress note of 02/08/22 and have been reexamined and updated where appropriate. All elements reflect the current assessment and medical decision making today. No visits with results within 1 Day(s) from this visit. Latest known visit with results is: Hospital Outpatient Visit on 02/08/2022 Component Date Value Ref Range Status Ventricular Rate 02/08/2022 66 BPM Preliminary Atrial Rate 02/08/2022 66 BPM Preliminary P-R Interval 02/08/2022 254 ms Preliminary QRS Duration 02/08/2022 94 ms Preliminary QT Interval 02/08/2022 454 ms Preliminary QTC Calculation (Bazett) 02/08/2022 475 ms Preliminary Calculated P Alma 02/08/2022 50 degrees Preliminary Calculated R Alma 02/08/2022 7 degrees Preliminary Calculated T Alma 02/08/2022 83 degrees Preliminary ASSESSMENT/PLAN: 1. SOB (shortness of breath) - ICD9: 786.05, ICD10: R06.02 (primary diagnosis) - Will be completing echo tomorrow. May need to complete PFTs. 2. Chronic congestive heart failure, unspecified heart failure type (HCC) - ICD9: 428.0, ICD10: I50.9 Stable, euvolemic on exam today - Continue current plan of care with KATIE Heredia 3. Pressure injury of right buttock, stage 2 (HCC) - ICD9: 707.05, 707.22, ICD10: L89.312 - Sore is not improving with current treatment. Patient needs a hospital bed and mattress overlay to prevent worsening of the wounds. May need HHC with a skilled nurse or need to see a wound center for further treatment. 4. Pressure injury of left buttock, stage 2 (HCC) - ICD9: 707.05, 707.22, ICD10: L89.322 - See above 5. Skin breakdown - ICD9: 782.9, ICD10: R23.8 - Offload weight in bed or while in wheelchair. Patient does not ambulate long distances. 6. Dysuria - ICD9: 788.1, ICD10: R30.0 acute - UA positive for corbin esterase and hematuria - Send urine for culture - Begin treatment with Keflex for 10 days - Patient education for prevention given - UA DIP, URINE (POC) - URINE CULTURE 7. Acute cystitis with hematuria - ICD9: 595.0, ICD10: N30.01 - CEPHALEXIN 500 MG CAPSULE - URINE CULTURE 8. Chronic low back pain, unspecified back pain laterality, unspecified whether sciatica present - ICD9: 724.2, 338.29, ICD10: M54.50, G89.29 PDMP website checked and validated. All prescriptions have been APPROPRIATELY filled. No suspiciousactivity was identified. 02/19/2022 by Alma Gill APRN.CNP - TRAMADOL 100 MG TABLET - ACETAMINOPHEN 500 MG TABLET 9. Impaired mobility - ICD9: 799.89, ICD10: Z74.09 - Patient is currently having home PT due to weakness. He is high risk for falls. Continue PT. New medication(s) prescribed today: Yes: Keflex, Tramadol, Tylenol. Discussed new medication dosage, usage, goals of therapy, and side effects. Patient has been apprised of any potential drug interactions to be aware of. Patient expresses understanding. Counseling completed in adopting health behaviors such as avoiding excessive alcohol use, avoid tobacco use, improve nutrition, and engage in physical activities. Copy of written care plan, clinical summary, treatment plan, new medications, goals, and self management requirements were given to patient. Alma Gill APRN.CNP documented in this encounterTrumbull Memorial Hospital10-03-2022 Miscellaneous Notes* Telephone Encounter - Suzanne Almaguer MA - 02/12/2022 11:35 AM EDT notified of all information and voiced understanding. Suzanne Almaguer MA * Telephone Encounter - Alma Gill APRN.CNP - 02/12/2022 8:55 AM EDT Please let the patient's know that his EKG was abnormal and showed an incomplete right bundle branch block which could indicate previous damage. For this reason and his intermittent chest pain and SOB, I strongly recommend he goes to see a animal trainer. I placed a referral to Dr. Mobley. I alsoplaced an order for an echo and nuclear stress test to look for any ischemia. Dr. Klever Mobley Cardiovascular Medicine [facility] Medical Office Building [address] [place] [address] Appointment: [phone] Desk: [phone] His CXR did not show any sign of infection or CHF overload but it was noted that he had some mild chronic changes to the lining of his lungs which could be causing some of the SOB he is having. Sometimes there is no treatment for this but pulmonary rehab is recommended at times. We will start with the echo as planned and go from there. documented in this encounterTrumbull Memorial Hospital09-30-2022 Miscellaneous Notes* Telephone Encounter - Suzanne Almaguer MA - 02/09/2022 4:04 PM EDT Patients notified and voiced understanding. She wanted to let you know [place] sodium is alwayslow. Suzanne Almaguer MA * Telephone Encounter - Suzanne Almaguer MA - 02/09/2022 4:04 PM EDT ----- Message from Alma Gill APRN.TAG MACHINE OPERATOR sent at 02/09/2022 12:58 PM EDT ----- BMP showed his kidney function is back WNL but his sodium is on the lower side again. Lasix can cause the sodium to be low. I'm waiting for the chest XR to see what it says before I decide what to dowith the Lasix. documented in this encounterTrumbull Memorial Hospital09-29-2022 History of Present illness Narrative* Rosemary Sams, RT(R) - 02/08/2022 4:00 PM EDT Radiology Service Progress Note PATIENT NAME: Mars Peterson DATE OF SERVICE: February 08, 2022 TIME: 4:16 PM PATIENT IDENTITY VERIFICATION COMPLETED USING TWO (2) IDENTIFIERS: Name and Date of confirmedby patient verbally. FALL SCREENING: Has the patient had 2 falls in the last year or 1 fall with injury or currently using an Ambulatory Assistive Device (Walker, Cane, Wheelchair, Crutches, etc.)? No PATIENT GENDER DATA: Male PATIENT RELEVANT IMPLANT DATA REVIEWED: Not Applicable RADIOLOGY DEPARTMENT: General X-ray: Exam(s) Completed: Chest X-Ray PERIPHERAL IV DATA: Not applicable SIGNED BY: RT Hayder(R) February 08, 2022 4:16 PM documented in this encounterTrumbull Memorial Hospital09-29-2022 History of Present illness Narrative* Alma Gill APRN.TAG MACHINE OPERATOR - 02/08/2022 3:11 PM EDT CHIEF COMPLAINT: Mars Peterson is a 66 year old male who presents for 1 week follow up for CHF with his . I reviewed past medical, surgical, social, and family histories today and updated chart. Allergies, chronic medications, and supplements were also reviewed. He took 3 days of extra Lasix and states he didn't really notice a difference with his SOB. He denies any edema in his left lower extremity. He denies any CP, cough, fever, or wheezing. states his right buttock looks slightly better. Left buttock was slightly weepy. She did hear from [facility] about the sacral foam dressing and his hospital bed. She states that he has to use an inflatable overlay first before they will approve the continuous air flow mattress. He still reportspain with buttock. The history is provided by the patient and the spouse. No consumer relations complaint clerk was used. PAST MEDICAL HISTORY Diagnosis Date CHF (congestive heart failure) (HCC) Chronic low back pain Coronary artery disease CVA (cerebral vascular accident) ([facility]) DJD (degenerative joint disease) Essential hypertension Neuropathy Osteomyelitis of foot (HCC) Peripheral vascular disease (HCC) Umbilical hernia PAST SURGICAL HISTORY Procedure Laterality Date BACK SURGERY HX 2017 CABG (1) VEIN GRAFT & ARTERIAL GRAFT FINGER AMPUTATION (SPECIFY DIGIT) HX HIP SURGERY HX 2000, 2019 LEG AMPUTATION HX Right 2018 PAST SURGICAL HISTORY OF coccyx REMV CATARACT EXTRACAP,INSERT LENS Bilateral Social History Tobacco Use Smoking status: Former Smokeless tobacco: Former Types: Chew Vaping Use Vaping Use: Never used Substance Use Topics Alcohol use: Yes Comment: Occasional Drug use: Never ALLERGIES No Known Allergies Family History Problem Relation Age of Onset Ovarian cancer Mother other (afib) Mother Heart Father Heart Paternal Uncle Leukemia Paternal Uncle Cancer Maternal Uncle other (bladder cancer) Maternal Aunt Cancer Maternal Aunt Current Outpatient Medications Medication Sig Dispense Refill traMADol 100 mg TM24 Take 100 mg by mouth once daily. gabapentin (NEURONTIN) 300 mg capsule Take 2 capsules by mouth every morning AND 3 capsules daily at bedtime. Do all this for 30 days. 150 capsule 0 hydrOXYzine HCl (ATARAX) 25 mg tablet Take 1 tablet by mouth four times daily. 120 tablet 1 lisinopril (ZESTRIL, PRINIVIL) 10 mg tablet Take 1 tablet by mouth once daily. 30 tablet 4 escitalopram oxalate (LEXAPRO) 20 mg tablet Take 1 tablet by mouth once daily. 30 tablet 2 omeprazole (PRILOSEC) 40 mg capsule TAKE 1 CAPSULE BY MOUTH ONCE DAILY 30 capsule 3 metoprolol succinate ER (TOPROL XL) 25 mg 24 hr tablet TAKE 1 TABLET BY MOUTH EVERY DAY 90 tablet 1 traZODone (DESYREL) 100 mg tablet Take 1 tablet by mouth daily at bedtime. Hold while taking Trazodone 180 tablet 1 furosemide (LASIX) 40 mg tablet TAKE 1 TABLET BY MOUTH ONCE DAILY NEEDED. 30 tablet 2 nitroglycerin sublingual (NITROQUICK) 0.3 mg SL tablet Dissolve 0.3 mg under the tongue every 5 minutes as needed. Zinc 50 mg tab Take 50 mg by mouth. aspirin, enteric coated (ASPIRIN, ENTERIC COATED) 81 mg EC tablet Take 81 mg by mouth once daily. ascorbic acid, vitamin C, (VITAMIN C) 500 mg tablet Take 500 mg by mouth once daily. multivit-min/folic/vit K/lycop (ONE-A-DAY MEN'S MULTIVITAMIN ORAL) Take by mouth once daily. No current facility-administered medications for this visit. Review of Systems Constitutional: Negative for appetite change, chills, diaphoresis, fatigue, fever and unexpected weight change. Respiratory: Positive for shortness of breath. Negative for cough, chest tightness and wheezing. Cardiovascular: Negative for chest pain, palpitations and leg swelling. Gastrointestinal: Negative for abdominal pain, constipation, diarrhea, nausea and vomiting. Genitourinary: Negative for dysuria, hematuria and urgency. Musculoskeletal: Positive for gait problem (poor balance, RLE amputation). Skin: Positive for color change (sore on buttocks). Neurological: Positive for weakness (lower extremities). Psychiatric/Behavioral: Negative for dysphoric mood and sleep disturbance. The patient is not nervous/anxious. BP 128/72 Pulse 68 Temp 98.3 Resp 16 SpO2 94% Physical Exam Vitals and nursing note reviewed. Constitutional: General: He is not in acute distress. Appearance: He is obese. Comments: Sitting in wheelchair HENT: Head: Normocephalic. Mouth/Throat: Mouth: Mucous membranes are moist. Pharynx: Oropharynx is clear. Eyes: Pupils: Pupils are equal, round, and reactive to light. Cardiovascular: Rate and Rhythm: Normal rate and regular rhythm. Heart sounds: Normal heart sounds, S1 normal and S2 normal. No murmur heard. Pulmonary: Effort: Pulmonary effort is normal. No respiratory distress. Breath sounds: Normal air entry. Examination of the right-lower field reveals decreased breath sounds. Examination of the left-lower field reveals decreased breath sounds. Decreased breath sounds present. No wheezing, rhonchi or rales. Abdominal: General: Bowel sounds are normal. There is no distension. Palpations: Abdomen is soft. Tenderness: There is no abdominal tenderness. Musculoskeletal: Left lower leg: No edema. 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 Skin: General: Skin is warm and dry. Neurological: Mental Status: He is alert and oriented to person, place, and time. Psychiatric: Mood and Affect: Mood and affect normal. Behavior: Behavior is cooperative. Thought Content: Thought content normal. Some elements of above documentation were copied from my progress note of 02/01/22 and have been reexamined and updated where appropriate. All elements reflect the current assessment and medical decision making today. No visits with results within 1 Day(s) from this visit. Latest known visit with results is: Appointment on 02/01/2022 Component Date Value Ref Range Status Vitamin B12 02/01/2022 447 232 - 1,245 pg/mL Final Cholesterol, Total 02/01/2022 204 (A) <200 mg/dL Final <200 mg/dL, Desirable 200-239 mg/dL, Borderline high >239 mg/dL, High Triglyceride 02/01/2022 173 (A) <150 mg/dL Final <150 mg/dL, Normal 150-199 mg/dL, Borderline high 200-499 mg/dL, High >499 mg/dL, Very high HDL Cholesterol 02/01/2022 39 (A) >39 mg/dL Final 40-59 mg/dL, Acceptable >59 mg/dL, High: Negative risk factor for coronary heart disease <40 mg/dL, Low: Positive risk factor for coronary heart disease Non HDL Cholesterol 02/01/2022 165 (A) <130 mg/dL Final <130 mg/dL, Optimal 130-159 mg/dL, Near optimal/above optimal 160-189 mg/dL, Borderline high 190-219 mg/dL, High >219 mg/dL, Very high Secondary prevention optimal non HDL Cholesterol levels are recommended to be <100 mg/dL Fasting Time 02/01/2022 12 hrs Final VLDL Cholesterol 02/01/2022 35 (A) <30 mg/dL Final TC:HDL Ratio 02/01/2022 5.23 (A) <5.10 Final LDL Cholesterol 02/01/2022 130 (A) <100 mg/dL Final <100 mg/dL, Optimal 100-129 mg/dL, Near optimal/above optimal 130-159 mg/dL, Borderline high 160-189 mg/dL, High >189 mg/dL, Very high Secondary prevention optimal LDL Cholesterol levels are recommended to be < 70 mg/dL LDL:HDL Ratio 02/01/2022 3.33 (A) <2.54 Final Reference: 1. National Cholesterol Education Program ATP III Guideline At-A-Glance Quick Desk Reference: National Heart, Lung, and Blood [place]. National Institutes of Health. 2001: NIH Publication No. 01-3305. 2. An International Atherosclerosis Society position paper: global recommendations for the management of dyslipidemia: executive summary, Atherosclerosis. 2014: 232(2):410-413. WBC 02/01/2022 9.08 3.70 - 11.00 k/uL Final RBC 02/01/2022 5.29 4.20 - 6.00 m/uL Final Hemoglobin 02/01/2022 13.8 13.0 - 17.0 g/dL Final Hematocrit 02/01/2022 43.8 39.0 - 51.0 % Final MCV 02/01/2022 82.8 80.0 - 100.0 fL Final MCH 02/01/2022 26.1 26.0 - 34.0 pg Final MCHC 02/01/2022 31.5 30.5 - 36.0 g/dL Final RDW-CV 02/01/2022 14.7 11.5 - 15.0 % Final Platelet Count 02/01/2022 229 150 - 400 k/uL Final MPV 02/01/2022 9.6 9.0 - 12.7 fL Final Neut% 02/01/2022 63.3 % Final Abs Neut 02/01/2022 5.75 1.45 - 7.50 k/uL Final Lymph% 02/01/2022 18.2 % Final Abs Lymph 02/01/2022 1.65 1.00 - 4.00 k/uL Final [place]% 02/01/2022 14.8 % Final Abs [place] 02/01/2022 1.34 (A) <0.87 k/uL Final Eosin% 02/01/2022 3.4 % Final Abs Eosin 02/01/2022 0.31 <0.46 k/uL Final Baso% 02/01/2022 0.3 % Final Abs Baso 02/01/2022 0.03 <0.11 k/uL Final Diff Type 02/01/2022 Auto Final Protein, Total 02/01/2022 7.4 6.3 - 8.0 g/dL Final Albumin 02/01/2022 3.7 (A) 3.9 - 4.9 g/dL Final Calcium, Total 02/01/2022 9.2 8.5 - 10.2 mg/dL Final Bilirubin, Total 02/01/2022 0.4 0.2 - 1.3 mg/dL Final Alkaline Phosphatase 02/01/2022 75 38 - 113 U/L Final AST 02/01/2022 20 14 - 40 U/L Final ALT 02/01/2022 12 10 - 54 U/L Final Glucose 02/01/2022 111 (A) 74 - 99 mg/dL Final The [place] Diabetes Association (ADA) provides guidance for cutoff values for fasting glucose andrandom glucose. The ADA defines fasting as no caloric intake for at least 8 hours. Fasting plasma glucose results between 100 to 125 mg/dL indicate increased risk for diabetes (prediabetes). Fasting plasma glucose results greater than or equal to 126 mg/dL meet the criteria for diagnosis of diabetes. In the absence of unequivocal hyperglycemia, results should be confirmed by repeat testing. In a patient with classic symptoms of hyperglycemia or hyperglycemic crisis, random plasma glucose results greater than or equal to 200 mg/dL meet the criteria for diagnosis of diabetes. Reference: Standards of Medical Care in Diabetes 2016, [place] Diabetes Association. Diabetes Care. 2016.39(Suppl 1). BUN 02/01/2022 8 (A) 9 - 24 mg/dL Final Creatinine 02/01/2022 1.32 (A) 0.73 - 1.22 mg/dL Final Sodium 02/01/2022 131 (A) 136 - 144 mmol/L Final Potassium 02/01/2022 4.6 3.7 - 5.1 mmol/L Final Chloride 02/01/2022 93 (A) 97 - 105 mmol/L Final CO2 02/01/2022 28 22 - 30 mmol/L Final Anion Gap 02/01/2022 10 9 - 18 mmol/L Final Estimated Glomerular Filtration Ra* 02/01/2022 59 (A) >=60 mL/min/1.73m Final Estimated Glomerular Filtration Rate (eGFR) is calculated using the 2020 CKD-EPI creatinine equation. This equation utilizes serum creatinine, sex, and age as parameters. The creatinine assay has traceable calibration to isotope dilution- mass spectrometry. Refer to KDIGO guidelines for clinical interpretation. In patients with unstable renal function, e.g. those with acute kidney injury, the eGFRmay not accurately reflect actual GFR. Magnesium 02/01/2022 2.0 1.7 - 2.3 mg/dL Final NT Pro BNP 02/01/2022 575 (A) <125 pg/mL Final Hep A Ab, IgM 02/01/2022 Negative Negative Final Hep B Core Ab, IgM 02/01/2022 Negative Negative Final HBsAg 02/01/2022 Negative Negative Final ASSESSMENT/PLAN: 1. Chronic congestive heart failure, unspecified heart failure type (HCC) - ICD9: 428.0, ICD10: I50.9 (primary diagnosis) Stable - No edema, no further rales. Patient is still SOB, will obtain XR. Waiting for EKG results. Continue Lasix as needed. Weight is stable. - XR CHEST 2V FRONTAL/LAT 2. SOB (shortness of breath) - ICD9: 786.05, ICD10: R06.02 - XR chest 3. Pressure injury of right buttock, stage 2 (HCC) - ICD9: 707.05, 707.22, ICD10: L89.312 - Did receive sacral dressing, applying Calmoseptine - Will be receiving hospital bed with overlay 4. Pressure injury of left buttock, stage 2 (HCC) - ICD9: 707.05, 707.22, ICD10: L89.322 - See above - Appears to be improving some New medication(s) prescribed today: None. Counseling completed in adopting health behaviors such as avoiding excessive alcohol use, avoid tobacco use, improve nutrition, and engage in physical activities. Copy of written care plan, clinical summary, treatment plan, new medications, goals, and self management requirements were given to patient. Alma Gill APRN.CNP documented in this encounterTr[facility]22 Instructions* Patient Instructions* Alma Gill APRN.CNP - 02/01/2022 9:32 AM EDT Lasix 40 mg once a day for the next 7 days documented in this encounterTrumbull [facility]09-22-2022 History of Present illness Narrative* Alma Gill APRN.CNP - 02/01/2022 9:04 AM EDT Images from the original note were not included. CHIEF COMPLAINT: Mars Peterson is a 66 year old male who presents with his for concern of pressure sores on his buttocks. I reviewed past medical, surgical, social, and family histories today and updated chart. Allergies, chronic medications, and supplements were also reviewed. His first noticed the sores after he complained about his "butt burning" about 2 weeks ago. She did send in a picture via [employer] and it appeared red on bilateral buttocks. She notes that he spends 99% of the day in his wheelchair because his balance in not good. She also states he tends to scoot forward frequently in his wheelchair when he has to urinate. She has been applying Calmoseptine to his skin as a barrier cream. He does state that it is painful and is worse when he is sitting directly on it. She states he always lays in his back too in the bed and tends not to rotate. She did purchase a pressure relieving cushion for his wheelchair. Ultimately, she feels he would significantly benefit from an air mattress/bed combination to avoid his sores from opening. She states she has also noticed he has been more SOB with activity. He hasn't taken his Lasix recently. His swelling in his left lower extremity has been controlled. He doesn't weight himself daily but she states he has gained about 7-8 pounds since November. Chest pain intermittently at night once in a while. Wakes him up and will take a Nitro once and it will resolve. Does not occur during the day. Denies any palpitations, dizziness, N/V, diaphoresis when it occurs. Will last for about 10-15 minutes. He hasn't seen cardiology yet- needs appt. The history is provided by the patient and the spouse. No consumer relations complaint clerk was used. PAST MEDICAL HISTORY Diagnosis Date CHF (congestive heart failure) ([facility]) Chronic low back pain Coronary artery disease CVA (cerebral vascular accident) (HCC) DJD (degenerative joint disease) Essential hypertension Neuropathy Osteomyelitis of foot (HCC) Peripheral vascular disease (HCC) Umbilical hernia PAST SURGICAL HISTORY Procedure Laterality Date BACK SURGERY HX 2017 CABG (1) VEIN GRAFT & ARTERIAL GRAFT FINGER AMPUTATION (SPECIFY DIGIT) HX HIP SURGERY HX 2000, 2019 LEG AMPUTATION HX Right 2018 PAST SURGICAL HISTORY OF coccyx REMV CATARACT EXTRACAP,INSERT LENS Bilateral Social History Tobacco Use Smoking status: Former Smokeless tobacco: Former Types: Chew Vaping Use Vaping Use: Never used Substance Use Topics Alcohol use: Yes Comment: Occasional Drug use: Never ALLERGIES No Known Allergies Family History Problem Relation Age of Onset Ovarian cancer Mother other (afib) Mother Heart Father Heart Paternal Uncle Leukemia Paternal Uncle Cancer Maternal Uncle other (bladder cancer) Maternal Aunt Cancer Maternal Aunt Current Outpatient Medications Medication Sig Dispense Refill traMADol 100 mg TM24 Take 100 mg by mouth once daily. omeprazole (PRILOSEC) 40 mg capsule TAKE 1 CAPSULE BY MOUTH ONCE DAILY 30 capsule 3 gabapentin (NEURONTIN) 300 mg capsule TAKE 2 CAPSULES BY MOUTH EVERY MORNING AND 3 CAPSULES DAILY AT BEDTIME. DO ALL THIS FOR 30 DAYS. 150 capsule 0 metoprolol succinate ER (TOPROL XL) 25 mg 24 hr tablet TAKE 1 TABLET BY MOUTH EVERY DAY 90 tablet 1 traZODone (DESYREL) 100 mg tablet Take 1 tablet by mouth daily at bedtime. Hold while taking Trazodone 180 tablet 1 hydrOXYzine HCl (ATARAX) 25 mg tablet TAKE 1 TABLET BY MOUTH 4 TIMES A DAY 120 tablet 1 lisinopril (ZESTRIL, PRINIVIL) 10 mg tablet Take 1 tablet by mouth once daily. 30 tablet 4 escitalopram oxalate (LEXAPRO) 10 mg tablet Take 2 tablets by mouth once daily. 90 tablet 1 furosemide (LASIX) 40 mg tablet TAKE 1 TABLET BY MOUTH ONCE DAILY NEEDED. 30 tablet 2 nitroglycerin sublingual (NITROQUICK) 0.3 mg SL tablet Dissolve 0.3 mg under the tongue every 5 minutes as needed. Zinc 50 mg tab Take 50 mg by mouth. aspirin, enteric coated (ASPIRIN, ENTERIC COATED) 81 mg EC tablet Take 81 mg by mouth once daily. ascorbic acid, vitamin C, (VITAMIN C) 500 mg tablet Take 500 mg by mouth once daily. multivit-min/folic/vit K/lycop (ONE-A-DAY MEN'S MULTIVITAMIN ORAL) Take by mouth once daily. No current facility-administered medications for this visit. Review of Systems Constitutional: Positive for fatigue and unexpected weight change. Negative for appetite change, chills, diaphoresis and fever. Respiratory: Positive for shortness of breath (with exertion/activity). Cardiovascular: Positive for chest pain (see HPI). Negative for palpitations and leg swelling. Gastrointestinal: Negative for abdominal pain, constipation, diarrhea, nausea and vomiting. Genitourinary: Negative for dysuria, hematuria and urgency. Musculoskeletal: Positive for gait problem (poor balance, RLE amputation). Skin: Positive for color change (sore on buttocks). Neurological: Positive for weakness. Psychiatric/Behavioral: Negative for dysphoric mood and sleep disturbance. The patient is not nervous/anxious. BP 126/70 Pulse 62 Temp 98 Resp 18 Ht 6' 0" (1.83m) Wt 278 lb (126.1kg) SpO2 94% BMI 37.70 kg/(m^2). Physical Exam Vitals and nursing note reviewed. Constitutional: General: He is not in acute distress. Appearance: He is obese. Comments: Sitting in wheelchair HENT: Mouth/Throat: Mouth: Mucous membranes are moist. Pharynx: Oropharynx is clear. Eyes: Pupils: Pupils are equal, round, and reactive to light. Cardiovascular: Rate and Rhythm: Normal rate and regular rhythm. Heart sounds: Normal heart sounds, S1 normal and S2 normal. No murmur heard. Pulmonary: Effort: Pulmonary effort is normal. No respiratory distress. Breath sounds: Normal air entry. Examination of the right-lower field reveals rales. Rales (RLL) present. No decreased breath sounds, wheezing or rhonchi. Musculoskeletal: Left lower leg: No edema. 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 Skin: General: Skin is warm. Neurological: Mental Status: He is alert and oriented to person, place, and time. Psychiatric: Mood and Affect: Mood and affect normal. Behavior: Behavior is cooperative. Thought Content: Thought content normal. ASSESSMENT/PLAN: 1. Pressure injury of right buttock, stage 2 (HCC) - ICD9: 707.05, 707.22, ICD10: L89.312 (primary diagnosis) - Recommend patient to have a continuous air mattress and hospital bed with automatic adjustment since he is developing pressure injuries quickly due to his decreased mobility. Also recommend Allevynsacral dressing to helping with any shearing injury. Continue to apply barrier cream and offload weight in bed. 2. Pressure injury of left buttock, stage 2 (HCC) - ICD9: 707.05, 707.22, ICD10: L89.322 - See above 3. At high risk for skin breakdown - ICD9: V49.89, ICD10: Z91.89 - Decreased mobility - RLE amputation 4. Abnormality of gait - ICD9: 781.2, ICD10: R26.9 - See above - Has to use a wheelchair or walker for ambulating 5. Chronic congestive heart failure, unspecified heart failure type (HCC) - ICD9: 428.0, ICD10: I50.9 Weight increasing - + crackles to RLL on exam today, no edema - Recommend checking labs and will have him taking Lasix daily for the next 7 days but this may need adjusted based on lab results. - F/U in 1 week. - NT PRO BNP 6. Chest pain, unspecified type - ICD9: 786.50, ICD10: R07.9 - Occurs at night intermittently Chest pain of unclear etiology, patient with significant risk factor(s) of Hypertension, Hyperlipidemia, and history of CAD - Electrocardiogram - Treatment with Nitroglycerin 0.4 mg SL q 5 minutes x 3 - Follow up 1 weeks - ECG COMPLETE 7. Essential hypertension - ICD9: 401.9, ICD10: I10 - good control - Continue current medication(s) - Encouraged dietary sodium restriction/DASH diet - Recommended regular aerobic exercise. - Recommend home blood pressure monitoring, to bring results in on next visit - Goal of BP <130/80 - Recommended no refined sugar, low refined starch, healthy oil intake (olive oil), healthy protein(fish) along the lines of the Mediterranean diet. - LISINOPRIL 10 MG TABLET 8. Neuropathy - ICD9: 355.9, ICD10: G62.9 - GABAPENTIN 300 MG CAPSULE - VITAMIN B12 BLOOD PDMP website checked and validated. All prescriptions have been APPROPRIATELY filled. No suspiciousactivity was identified. 02/01/2022 by Alma Gill APRN.TAG MACHINE OPERATOR 9. Essential tremor - ICD9: 333.1, ICD10: G25.0 - MAGNESIUM BLD 10. Anxiety and depression - ICD9: 300.00, 311, ICD10: F41.9, F32.A - HYDROXYZINE HCL 25 MG TABLET - ESCITALOPRAM 20 MG TABLET 11. Encounter for immunization - ICD9: V03.89, ICD10: Z23 - INFLUENZA SEASONAL QUADRIVALENT HIGH DOSE AGE 65+ - IMADM PRQ ID SUBQ/IM NJXS 1 VACC 12. Screening for viral disease - ICD9: V73.99, ICD10: Z11.59 - HEP A AB IGM - HEP B CORE AB IGM - HEP B SURF AG SCRN 13. Screening for lipid disorders - ICD9: V77.91, ICD10: Z13.220 - LIPID PANEL BASIC 14. Screening for deficiency anemia - ICD9: V78.1, ICD10: Z13.0 - CBC + DIFF 15. Screening for diabetes mellitus - ICD9: V77.1, ICD10: Z13.1 - COMP METABOLIC PANEL New medication(s) prescribed today: None. Counseling completed in adopting health behaviors such as avoiding excessive alcohol use, avoid tobacco use, improve nutrition, and engage in physical activities. Copy of written care plan, clinical summary, treatment plan, new medications, goals, and self management requirements were given to patient. I spent a total of 40 minutes on the date of the service which included preparing to see the patient, [id number] patient care, completing clinical documentation, obtaining and/or reviewing separately obtained history, performing a medically appropriate examination, counseling and educating the pat ient/family/caregiver, ordering medications, tests, or procedures, communicating results to the patient/family/caregiver, and care coordination (not separately reported). Alma Gill APRN.EVANS documented in this encounterTr[facility]09-20-2022 Miscellaneous Notes* Telephone Encounter - Priya Pedersen MA - 01/30/2022 7:10 AM EDT Pharmacy requesting refills as follows: Last Office Visit 11/23/21. Last Refill 09/26/21. Requested Prescriptions Pending Prescriptions Disp Refills omeprazole (PRILOSEC) 40 mg capsule [Pharmacy Med Name: OMEPRAZOLE DR 40 MG CAPSULE] 30 capsule 3 Sig: TAKE 1 CAPSULE BY MOUTH ONCE DAILY Please review and advise. Priya Pedersen MA documented in this encounterTr[facility]ull [facility]09-16-2022 Miscellaneous Notes* Telephone Encounter - Mone Mckeon - 01/26/2022 1:25 PM EDT The patients [facility] would like an appointment prior to February 13, which is the first available. She is aware of one day release scenario appointments. Will try next week. Mone Mckeon * Telephone Encounter - Suzanne Almaguer MA - 01/26/2022 11:32 AM EDT Patients lm on requesting apt. For . Please help assist. Suzanne Almaguer MA documented in this encounterTrumbull [facility]09-16-2022 Miscellaneous Notes* Telephone Encounter - Suzanne Almaguer MA - 01/26/2022 7:16 AM EDT All information left on [facility]. (Advised her to call back [facility] any questions or concerns. Suzanne Almaguer MA Yesterday message left for her to schedule apt. For her it needs to be documented.) Suzanne Almaguer MA * Telephone Encounter - Alma Gill APRN.CNP - 01/25/2022 5:44 PM EDT Please also let the patient's know that it is time to recheck his urine since the last one wascontaminated. Order placed. She can always come get a cup and bring it back if she would like for can complete when she brings him in for an appointment. * Telephone Encounter - Suzanne Almaguer MA - 01/25/2022 1:29 PM EDT Spoke to [facility]. She said yes, but you have to order hospital bed along with mattress stating continuous air flow. She said they need the ICD code on it and reason why pt. Needs this. She said they also needs clinic notes, demos and insurance card faxed to them. (Fax is [phone]) Left message on [facility] with all information. Suzanne Almaguer MA * Telephone Encounter - Alma Gill APRN.EVANS - 01/25/2022 12:13 PM EDT [facility] to ordering a continuous air mattress for a patient with stage 2 decubitus ulcers to his buttocks? He is wheelchair bound and doesn't ambulate so he is at risk for worsening breakdown. If so, what does the order/script need to say for me to write one? Would they need an office visit to back up the order? documented in this encounterTr[facility]09-09-2022 Miscellaneous Notes* Telephone Encounter - Priya Pedersen MA - 01/19/2022 3:29 PM EDT Forms faxed. Priya Pedersen MA * Telephone Encounter - Alma Gill APRN.CNP - 01/19/2022 1:01 PM EDT Form signed. Please fax back to [facility]. Thanks! * Telephone Encounter - Priya Pedersen MA - 01/18/2022 11:42 AM EDT Form from [facility] Walter placed in signing tray, to sign for Home health plan of care. Priya Pedersen MA documented in this encounterTrumbull [facility] Hospital08-25-2022 Miscellaneous Notes* Telephone Encounter - Precious Lacy MA - 01/04/2022 4:05 PM EDT patient electronically requesting refills as follows: Last seen 11/23/21 . Last refill 11/23/21 . Requested Prescriptions Pending Prescriptions Disp Refills traZODone (DESYREL) 100 mg tablet 180 tablet 1 Sig: Take 1 tablet by mouth daily at bedtime. Hold while taking Trazodone Please review and advise. Precious Lacy MA documented in this [facility]08-24-2022 Miscellaneous Notes* Telephone Encounter - Precious Lacy MA - 01/03/2022 7:31 AM EDT pharmacy electronically requesting refills as follows: Last seen 11/23/21 . Last refill gabapentin 12/04/21, metoprolol 09/01/21 . Requested Prescriptions Pending Prescriptions Disp Refills gabapentin (NEURONTIN) 300 mg capsule [Pharmacy Med Name: GABAPENTIN 300 MG CAPSULE] 150 capsule 0 Sig: TAKE 2 CAPSULES BY MOUTH EVERY MORNING AND 3 CAPSULES DAILY AT BEDTIME. DO ALL THIS FOR 30 DAYS. metoprolol succinate ER (TOPROL XL) 25 mg 24 hr tablet [Pharmacy Med Name: METOPROLOL SUCC ER 25 MGTAB] 90 tablet 1 Sig: TAKE 1 TABLET BY MOUTH EVERY DAY Please review and advise. Precious Lacy MA documented in this [facility]08-22-2022 Miscellaneous Notes* Telephone Encounter - Precious Lacy MA - 01/01/2022 8:57 AM EDT pharmacy electronically requesting refills as follows: Last seen 11/23/21 . Last refill 10/30/21 . Requested Prescriptions Pending Prescriptions Disp Refills hydrOXYzine HCl (ATARAX) 25 mg tablet [Pharmacy Med Name: HYDROXYZINE HCL 25 MG TABLET] 120 tablet 1 Sig: TAKE 1 TABLET BY MOUTH 4 TIMES A DAY Please review and advise. Precious Lacy MA documented in this [facility]08-04-2022 Miscellaneous Notes* Telephone Encounter - Priya Pedersen MA - 12/14/2021 7:17 AM EDT Forms have been faxed. Priya Pedersen MA * Telephone Encounter - Alma Gill APRN.CNP - 12/13/2021 8:42 PM EDT Forms signed. Please fax back. * Telephone Encounter - Priya Pedersen MA - 12/07/2021 1:09 PM EDT Fax received from [facility] that needs to be signed for physical therapy evaluation placed on signing tray Priya Pedersen MA documented in this encounterTrumbull [facility] Hospital07-27-2022 Miscellaneous Notes* Telephone Encounter - Suzanne Almaguer MA - 12/06/2021 4:41 PM EDT notified and voiced understanding. Suzanne Almaguer MA * Telephone Encounter - Suzanne Almaguer MA - 12/06/2021 4:41 PM EDT ----- Message from Alma Gill APRN.TAG MACHINE OPERATOR sent at 12/06/2021 3:59 PM EDT ----- Urine culture showed specimen was contaminated but he can continue the antibiotic and we will stillrecheck in 2 weeks like we discussed. documented in this encounterTrumbull [facility] Hospital07-27-2022 Miscellaneous Notes* Telephone Encounter - Suzanne Almaguer MA - 12/06/2021 7:32 AM EDT Faxed. Placed on vanna JAUREGUI desk. Suzanne Almaguer MA * Telephone Encounter - Alma Gill APRN.EVANS - 12/05/2021 5:56 PM EDT Form signed and placed on UT desk. * Telephone Encounter - Priya Pedersen MA - 12/04/2021 1:52 PM EDT Fax received from [facility] Walter placed in signing tray. Priya Pedersen MA documented in this encounterTrumbull [facility] Hospital07-25-2022 Miscellaneous Notes* Telephone Encounter - Suzanne Almaguer MA - 12/04/2021 7:28 AM EDT Pharmacy requesting refills: Last office visit 11/23/2021. Last refill 11/01/2021 nov none Pending Prescriptions Disp Refills GABAPENTIN 300 MG CAPSULE 150 capsule 0 Sig: TAKE 2 CAPSULES BY MOUTH EVERY MORNING AND 3 CAPSULES DAILY AT BEDTIME. DO ALL THIS FOR 30 DAYS. LASHAY: Yes Please review and advise. Suzanne Almaguer MA documented in this encounterTrumbull [facility] Hospital07-22-2022 Miscellaneous Notes* Telephone Encounter - Precious Lacy MA - 12/01/2021 5:24 PM EDT Signed by Dr. Montoya and faxed back to [phone]. Precious Lacy MA * Telephone Encounter - Precious Lacy MA - 12/01/2021 3:49 PM EDT rTev Walter Verbal Order for prison 11/30/[address] Montoya green folder to be signed. Precious Lacy MA documented in this encounterTrumbull [facility] Hospital07-19-2022 Miscellaneous Notes* Telephone Encounter - Priya Pedersen MA - 11/28/2021 5:23 PM EDT Faxed. Priya Pedersen MA * Telephone Encounter - Alma Gill APRN.CNP - 11/28/2021 5:19 PM EDT Forms signed. I did not see anything on the OT D/C summary for me to sign. Please fax back to [facility]. Thank you. * Telephone Encounter - Priya Pedersen MA - 11/27/2021 9:50 AM EDT packet received from [facility] that needs reviewed and signed. Priya Pedersen MA documented in this encounterTrumbull Memorial Hospital07-14-2022 Instructions* Patient Instructions* Alma Gill APRN.CNP - 11/23/2021 12:02 PM EDT Dereje Pace MD General Surgery [facility] [address] [place] [address] Appointment:[phone] Dr. Gallardo- Neurologist [facility] [place] [id number] Driving Directions Appointment: [phone] documented in this encounterTrumbull [facility] Hospital07-14-2022 History of Present illness Narrative* Alma Gill APRN.CNP - 11/23/2021 11:34 AM EDT CHIEF COMPLAINT: Mars Peterson is a 66 year old male who presents with his for Hypertension 6 month follow up. He is a former patient of Dr. Snyder and is transitioning his care today. I reviewed past medical, surgical, social, and family histories today and updated chart. Allergies, chronic medications, and supplements were also reviewed. He sustained a fall at home in October and was seen in at [facility] in [place] on 10/15/21. Copied from ER HPI 10/15/21: HPI: Patient is a 66-year-old male chief complaint of fall/head pain/laceration. Patient does admit to drinking alcohol tonight. He has a prosthetic right lower leg. He typically is in the wheelchair about 75% of the time but walks with a walker. He was using his walker going up stairs but on third step lost his balance and fell backwards. He struck his head on the concrete garage floor. Denies any loss of consciousness. No neck pain. No focal neurologic complaints. He has chronic back pain. No anterior chest pain or radiating symptoms. No shortness of breath. No abdominal pain. Still has headaches every day Back of head and left side hurts Was sharp at first Better than when it happened Slowly improving Doesn't take anything for it Hx of chronic low back pain Persistent pain since fall Weak on both sides- not new Right lower leg prosthetic Uses walker and wheelchair Essential tremors- not taking any medications BP controlled at home Compliant with medications Denies CP, leg swelling, vision changes Reports feeling Sleeps a lot Currently taking Trazodone at night for insomnia Doesn't feel like doing anything Little or no interest or pleasure in doing things 3 Nearly every day Feeling down, depressed, or hopeless 3 Nearly every day A PHQ-2 total score of > or = to 3 merits completing the PHQ-9 6 Trouble falling or staying asleep, or sleeping too much 3 Nearly every day Feeling tired or having little energy 3 Nearly every day Poor appetite or overeating 1 Several days Feeling bad about yourself- or that you are a failure or having let yourself or your family down 1 Several days Trouble concentrating on things, such as reading the newpaper or watching television 2 More than half the days Moving or speaking so slowly that other people could have noticed? Or the opposite- being so fidgety or restless that you have been moving around a lot more than usual 2 More than half the days Thoughts that you would be better off or of hurting yourself in some way 0 Not at all PHQ9P Score 12 HPI PAST MEDICAL HISTORY Diagnosis Date CHF (congestive heart failure) (HCC) Chronic low back pain Coronary artery disease CVA (cerebral vascular accident) (HCC) DJD (degenerative joint disease) Essential hypertension Neuropathy Osteomyelitis of foot (HCC) Peripheral vascular disease (HCC) Umbilical hernia PAST SURGICAL HISTORY Procedure Laterality Date BACK SURGERY HX 2017 CABG (1) VEIN GRAFT & ARTERIAL GRAFT FINGER AMPUTATION (SPECIFY DIGIT) HX HIP SURGERY HX 2000, 2019 LEG AMPUTATION HX Right 2018 PAST SURGICAL HISTORY OF coccyx REMV CATARACT EXTRACAP,INSERT LENS Bilateral Social History Tobacco Use Smoking status: Former Smoker Quit date: 05/13/2001 Years since quittin.5 Smokeless tobacco: Former User Types: Chew Vaping Use Vaping Use: Never used Substance Use Topics Alcohol use: Yes Comment: Occasional Drug use: Never ALLERGIES No Known Allergies Family History Problem Relation Age of Onset Ovarian cancer Mother other (afib) Mother Heart Father Heart Paternal Uncle Leukemia Paternal Uncle Cancer Maternal Uncle other (bladder cancer) Maternal Aunt Cancer Maternal Aunt Current Outpatient Medications Medication Sig Dispense Refill lisinopril (ZESTRIL, PRINIVIL) 10 mg tablet Take 1 tablet by mouth once daily. 30 tablet 4 traZODone (DESYREL) 100 mg tablet Take 1 tablet by mouth daily at bedtime. Hold while taking Trazodone 180 tablet 1 escitalopram oxalate (LEXAPRO) 10 mg tablet Take 2 tablets by mouth once daily. 90 tablet 1 gabapentin (NEURONTIN) 300 mg capsule Take 2 capsules by mouth every morning AND 3 capsules daily at bedtime. Do all this for 30 days. 150 capsule 0 hydrOXYzine HCl (ATARAX) 25 mg tablet Take 1 tablet by mouth four times daily. 120 tablet 1 omeprazole (PRILOSEC) 40 mg capsule Take 1 capsule by mouth once daily. 30 capsule 3 metoprolol succinate ER (TOPROL XL) 25 mg 24 hr tablet TAKE 1 TABLET BY MOUTH EVERY DAY 90 tablet 1 furosemide (LASIX) 40 mg tablet TAKE 1 TABLET BY MOUTH ONCE DAILY NEEDED. 30 tablet 2 nitroglycerin sublingual (NITROQUICK) 0.3 mg SL tablet Dissolve 0.3 mg under the tongue every 5 minutes as needed. Zinc 50 mg tab Take 50 mg by mouth. aspirin, enteric coated (ASPIRIN EC) 81 mg EC tablet Take 81 mg by mouth once daily. ascorbic acid, vitamin C, (VITAMIN C) 500 mg tablet Take 500 mg by mouth once daily. multivit-min/folic/vit K/lycop (ONE-A-DAY MEN'S MULTIVITAMIN ORAL) Take by mouth once daily. traMADol (ULTRAM) 50 mg tablet Take 1-2 tablets by mouth twice daily as needed for pain for up to 30 days. Do not take with Tramadol 120 tablet 0 No current facility-administered medications for this visit. Review of Systems Constitutional: Positive for fatigue. Negative for appetite change, chills, diaphoresis, fever and unexpected weight change. HENT: Positive for hearing loss (chronic). Negative for ear pain. Eyes: Negative for visual disturbance. Respiratory: Positive for cough, shortness of breath and wheezing. Negative for chest tightness. Cardiovascular: Negative for chest pain, palpitations and leg swelling. Gastrointestinal: Negative for abdominal pain, constipation, diarrhea, nausea and vomiting. Genitourinary: Negative. Musculoskeletal: Positive for back pain, gait problem and neck pain. Negative for joint swelling and myalgias. Skin: Negative for color change and rash. Neurological: Positive for weakness, light-headedness and headaches. Negative for dizziness, seizures and syncope. Psychiatric/Behavioral: Positive for dysphoric mood and sleep disturbance. Negative for confusion and suicidal ideas. The patient is not nervous/anxious. BP 126/78 Pulse 65 Temp 97.7 Resp 16 Ht 6' 0" (1.83m) Wt 271 lb 3.2 oz (123.0kg) SpO2 96% BMI 36.77 kg/(m^2). Physical Exam Vitals and nursing note reviewed. Constitutional: General: He is not in acute distress. Appearance: He is obese. Comments: Sitting in wheelchair HENT: Head: Normocephalic and atraumatic. Right Ear: Tympanic membrane, ear canal and external ear normal. Left Ear: Tympanic membrane, ear canal and external ear normal. Mouth/Throat: Mouth: Mucous membranes are moist. Pharynx: Oropharynx is clear. Eyes: Pupils: Pupils are equal, round, and reactive to light. Cardiovascular: Rate and Rhythm: Normal rate and regular rhythm. Heart sounds: Normal heart sounds. No murmur heard. Pulmonary: Effort: Pulmonary effort is normal. Breath sounds: Normal breath sounds and air entry. No decreased breath sounds, wheezing or rhonchi. Abdominal: General: Bowel sounds are normal. There is no distension. Palpations: Abdomen is soft. Tenderness: There is no abdominal tenderness. Musculoskeletal: Cervical back: Normal range of motion and neck supple. No pain with movement or muscular tenderness. Lumbar back: Tenderness present. No edema or bony tenderness. Decreased range of motion. Left lower leg: No edema. 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 Lymphadenopathy: Cervical: No cervical adenopathy. Skin: General: Skin is warm and dry. Neurological: Mental Status: He is alert and oriented to person, place, and time. Cranial Nerves: Cranial nerves are intact. Sensory: Sensation is intact. Motor: Tremor (b/l hands) present. Coordination: Coordination is intact. Psychiatric: Attention and Perception: Attention normal. Mood and Affect: Mood is depressed. Behavior: Behavior is cooperative. Outside records from [facility] reviewed. ASSESSMENT/PLAN: 1. Headaches due to old head trauma - ICD9: 339.20, 908.9, ICD10: G44.309, S09.90XS (primary diagnosis) - Sustained concussion in October after fall. Continues to headaches posteriorly and left side of head. Recommend evaluation with neurology. - CONSULT TO NEUROLOGY - MAGNESIUM BLD - VITAMIN B12 BLOOD 2. Essential hypertension - ICD9: 401.9, ICD10: I10 - good control - Continue current medication(s) - Encouraged dietary sodium restriction/DASH diet - Recommended regular aerobic exercise. - Recommend home blood pressure monitoring, to bring results in on next visit - Recheck in 4 weeks, sooner should new symptoms or problems arise. - Goal of BP <130/80 - Recommended no refined sugar, low refined starch, healthy oil intake (olive oil), healthy protein(fish) along the lines of the Mediterranean diet. - LISINOPRIL 10 MG TABLET 3. Chronic low back pain, unspecified back pain laterality, unspecified whether sciatica present - ICD9: 724.2, 338.29, ICD10: M54.50, G89.29 - Patient was on Tramadol for chronic low back pain. He is not having any relief with Tylenol or Ibuprofen. Will restart at this time and will need to be reevaulted in a few weeks. Reviewed previous imaging. Currently using wheelchair due to pain in back. May benefit from PT. - TRAMADOL 50 MG TABLET 4. Insomnia, unspecified type - ICD9: 780.52, ICD10: G47.00 - Not recommended to take with Tramadol. states when he was previously taking Tramadol she held him Trazodone. - Decrease dose of Trazodone to 100 mg when he does restart medication. May be contributing to his somnolence. - TRAZODONE 100 MG TABLET 5. Essential tremor - ICD9: 333.1, ICD10: G25.0 - MAGNESIUM BLD - VITAMIN B12 BLOOD 6. Depression, unspecified depression type - ICD9: 311, ICD10: F32.A - Increase dose of Lexapro to 20 mg daily. 7. Screening for colon cancer - ICD9: V76.51, ICD10: Z12.11 - CONSULT TO GENERAL SURGERY 8. Screening for diabetes mellitus - ICD9: V77.1, ICD10: Z13.1 - COMP METABOLIC PANEL 9. Screening for lipid disorders - ICD9: V77.91, ICD10: Z13.220 - LIPID PANEL BASIC 10. Screening for deficiency anemia - ICD9: V78.1, ICD10: Z13.0 - CBC + DIFF New medication(s) prescribed today: Yes: Tramadol, Lexapro, and Trazodone. Discussed new medicationdosage, usage, goals of therapy, and side effects. Patient has been apprised of any potential drug interactions to be aware of. Patient expresses understanding. Counseling completed in adopting health behaviors such as avoiding excessive alcohol use, avoid tobacco use, improve nutrition, and engage in physical activities. Copy of written care plan, clinical summary, treatment plan, new medications, goals, and self management requirements were given to patient. I spent a total of 35 minutes on the date of the service which included preparing to see the patient, [id number] patient care, completing clinical documentation, obtaining and/or reviewing separately obtained history, performing a medically appropriate examination, counseling and educating the pat ient/family/caregiver, ordering medications, tests, or procedures and independently interpreting results (not separately reported). Alma Gill APRN.TAG MACHINE OPERATOR documented in this [facility]06-27-2022 Miscellaneous Notes* Telephone Encounter - Alma Gill APRN.CNP - 11/06/2021 5:29 PM EDT Completed and signed. * Telephone Encounter - Priya Pedersen MA - 11/03/2021 4:11 PM EDT Fax received from [facility] for home health certification and plan of care. Priya Pedersen MA documented in this encounterTrumbull [facility] Hospital06-22-2022 Miscellaneous Notes* Telephone Encounter - Suzanne Almaguer MA - 11/01/2021 1:36 PM EDT Already routed today in diff. Encounter documented in this [facility]06-22-2022 Miscellaneous Notes* Telephone Encounter - Suzanne Almaguer MA - 11/01/2021 8:59 AM EDT Patient requesting refills: Last office visit 05/23/2021. Last refill 10/02/2021 .nov 11/23/2021 Pending Prescriptions Disp Refills GABAPENTIN 300 MG CAPSULE 150 capsule 0 Sig: Take 2 capsules by mouth every morning AND 3 capsules daily at bedtime. Do all this for 30 days. LASHAY: No Please review and advise. Suzanne Almaguer MA documented in this [facility]2022 Miscellaneous Notes* Telephone Encounter - Priya Pedersen MA - 10/31/2021 7:47 AM EDT Fax received from [facility] for home health plan of care and certification, placed in top drawer. Priya Pedersen MA documented in this encounterTrumbull Memorial Hospital06-20-2022 Miscellaneous Notes* Telephone Encounter - Priya Pedersen MA - 10/30/2021 1:46 PM EDT Patient requesting refills as follows: Last Office Visit 10/04/20 nov 11/23/21. Last Refill 08/16/21. Pending Prescriptions Disp Refills HYDROXYZINE HCL 25 MG TABLET 120 tablet 1 Sig: Take 1 tablet by mouth four times daily. LASHAY: No Please review and advise. Priya Pedersen MA documented in this encounterTrumbull Memorial Hospital06-16-2022 History of Present illness Narrative* Precious Lacy MA - 10/26/2021 10:24 AM EDT Patient here for staple removal. Patient had 9 lauri placed in the back of his head at the base of the skull on the left side in the ER on 10/15/21. Dr. Montoya came in and evaluated the lauri and okayed the removal. 9 lauri removed with no complications, sterile water was used to soften scab under lauri. Bacitracin was applied after removal. Precious Lacy MA documented in this encounterTrumbull Memorial Hospital06-07-2022 History of Present illness Narrative* Precious Lacy MA - 10/17/2021 4:36 PM EDT ED Follow Up: Patient discharged from [facility] ED on 10/15/21. 1. How are you feeling since your ED visit? Still have a headache, bruises Have your symptoms improved or resolved? No 2. Were you prescribed any medications while in the ED or advised to stop any medication? No - If yes, were you able to fill your prescriptions? Not applicable -if stopped medication, what was the medication? n/a 3. Were you advised to schedule a follow up appointment with your provider? Yes - If no, Do you feel like you need an appointment scheduled? Not applicable - If yes, Do you need this scheduled now or has this already been scheduled? Yes and transferred tofront office to get scheduled 4. Were you able to contact the office or manager production provider prior to your ED visit? Not applicable 5. Is there anything else I can do for you today? No Precious Lacy MA documented in this encounterTrumbull Memorial Hospital05-23-2022 Miscellaneous Notes* Telephone Encounter - Alma Gill APRN.CNP - 10/02/2021 9:59 AM EDT PDMP website checked and validated. All prescriptions have been APPROPRIATELY filled. No suspiciousactivity was identified. 10/02/2021 by Alma Gill APRN.TAG MACHINE OPERATOR * Telephone Encounter - Suzanne Almaguer MA - 10/02/2021 7:31 AM EDT Pharmacy requesting refills: Last office visit 10/04/2020. Last refill 08/30/2021 nov 11/23/2021 Pending Prescriptions Disp Refills GABAPENTIN 300 MG CAPSULE 150 capsule 0 Sig: TAKE 2 CAPSULES BY MOUTH EVERY MORNING AND 3 CAPSULES DAILY AT BEDTIME. DO ALL THIS FOR 30 DAYS. LASHAY: Yes Please review and advise. Suzanne Almaguer MA documented in this encounterTrumbull [facility] Hospital05-17-2022 Miscellaneous Notes* Telephone Encounter - Precious Lacy MA - 09/26/2021 8:19 AM EDT Pharmacy faxes requesting refills as follows: Last seen 05/23/[address] Snyder . Last refill 04/20/21. Next office visit 11/23/21. Pending Prescriptions Disp Refills OMEPRAZOLE 40 MG CAPSULE,DELAYED RELEASE 30 capsule 3 Sig: Take 1 capsule by mouth once daily. LASHAY: No Please review and advise. Precious Lacy MA documented in this encounterTrumbull [facility] Hospital04-27-2022 Miscellaneous Notes* Telephone Encounter - Suzanne Almaguer MA - 09/06/2021 1:15 PM EDT Faxed. Placed in scanning. Suzanne Almaguer MA * Telephone Encounter - Alma Gill APRN.CNP - 09/06/2021 11:57 AM EDT Forms signed. Please fax. * Telephone Encounter - Priya Pedersen MA - 09/05/2021 8:45 AM EDT Fax for orders needs signed p[laced in top drawer. Priya Pedersen MA documented in this encounterTrumbull [facility] Hospital04-26-2022 Miscellaneous Notes* Telephone Encounter - Alma Gill APRN.TAG MACHINE OPERATOR - 09/05/2021 9:02 AM EDT See other encounter. * Telephone Encounter - Priya Pedersen MA - 09/05/2021 8:44 AM EDT Fax received for home health that needs signed. Priya Pedersen MA documented in this encounterTrumbull [facility] Hospital04-22-2022 Miscellaneous Notes* Telephone Encounter - Precious Lacy MA - 09/01/2021 7:27 AM EDT pharmacy electronically requesting refills as follows: Last seen 05/23/21 Dr. Snyder . Last refill 02/27/21 . Next office visit 11/23/21 with Alma Gill CNP Pending Prescriptions Disp Refills METOPROLOL SUCCINATE ER 25 MG TABLET,EXTENDED RELEASE 24 HR 90 tablet 1 Sig: TAKE 1 TABLET BY MOUTH EVERY DAY LASHAY: Yes Please review and advise. Precious Lacy MA documented in this encounterTrumbull Memorial Hospital04-20-2022 Miscellaneous Notes* Telephone Encounter - Suzanne Almaguer MA - 08/30/2021 9:27 AM EDT Patient requesting refills: Last office visit 10/04/2020. Last refill 07/28/2021 nov 11/23/2021 Pending Prescriptions Disp Refills GABAPENTIN 300 MG CAPSULE 150 capsule 0 Sig: Take 2 capsules by mouth every morning AND 3 capsules daily at bedtime. Do all this for 30 days. LASHAY: No Please review and advise. Suzanne Almaguer MA documented in this encounterTrumbull [facility] Hospital04-19-2022 Miscellaneous Notes* Telephone Encounter - Suly Tiwari MA - 08/29/2021 5:10 PM EDT Completed Suly Tiwari MA * Telephone Encounter - Alma Gill APRN.CNP - 08/29/2021 5:05 PM EDT Please print off office note from Dr. Snyder on 05/23/21 since this was his last face to face encounter with a provider here. Please fax back to [facility]. There is also a form for his OT completion. I signed the last page and it was requested to be faxedback. * Telephone Encounter - Priya Pedersen MA - 08/29/2021 7:51 AM EDT Fax received from [facility] that needs signed placed in top drawer. Priya Pedersen MA documented in this [facility]04-13-2022 Miscellaneous Notes* Telephone Encounter - Priya Pedersen MA - 08/23/2021 7:14 AM EDT Form has been faxed. Priya Pedersen MA * Telephone Encounter - Alma Gill APRN.TAG MACHINE OPERATOR - 08/22/2021 5:02 PM EDT Signed home health order for PT. Please fax back to number provided. * Telephone Encounter - Priya Pedersen MA - 08/22/2021 2:08 PM EDT Fax received to be signed for home health placed in top drawer. Spoke with patient and he will be establishing in November. Priya Pedersen MA documented in this [facility]04-06-2022 Miscellaneous Notes* Telephone Encounter - Maryse Molina MA - 08/16/2021 9:08 AM EDT Last OV 05/23/21 Apt 11/20/21 Labs 01/17/21 Pharmacy calls in requesting the following refill(s): Pending Prescriptions Disp Refills HYDROXYZINE HCL 25 MG TABLET 120 tablet 1 Sig: TAKE 1 TABLET BY MOUTH FOUR TIMES A DAY LASHAY: Yes [facility] Diagnosis Medication refill Issue of repeat prescriptions documented in this encounter [facility]* Diagnosis Encounter for staple removal- Primary Encounter for removal of sutures documented in this encounter [facility]* Diagnosis Headaches due to old head trauma- Primary Post-traumatic headache, unspecified Essential hypertension Unspecified essential hypertension Chronic low back pain, unspecified back pain laterality, unspecified whether sciatica present Insomnia, unspecified type Essential tremor Essential and other specified forms of tremor Depression, unspecified depression type Screening for colon cancer Special screening for malignant neoplasms, colon Screening for diabetes mellitus Screening for lipid disorders Screening for deficiency anemia Screening for other and unspecified deficiency anemia documented in this encounter [facility]* Diagnosis UTI symptoms- Primary Other symptoms involving urinary system documented in this encounter [facility] note* Diagnosis Insomnia, unspecified type documented in this encounter [facility] note* Diagnosis UTI symptoms- Primary Other symptoms involving urinary system Recurrent UTI (urinary tract infection) Urinary tract infection, site not specified documented in this encounter [facility] note* Diagnosis Medication refill Issue of repeat prescriptions documented in this encounter [facility] note* Diagnosis Pressure injury of right buttock, stage 2 (HCC)- Primary Pressure injury of left buttock, stage 2 (HCC) At high risk for skin breakdown Other specified conditions influencing health status Abnormality of gait Chronic congestive heart failure, unspecified heart failure type (HCC) Chest pain, unspecified type Essential hypertension Unspecified essential hypertension Neuropathy Mononeuritis of unspecified site Essential tremor Essential and other specified forms of tremor Anxiety and depression Dysthymic disorder Encounter for immunization Need for other specified prophylactic vaccination against single bacterial disease Screening for viral disease Special screening examination for unspecified viral disease Screening for lipid disorders Screening for deficiency anemia Screening for other and unspecified deficiency anemia Screening for diabetes mellitus documented in this encounter [facility]* Diagnosis 1st degree AV block- Primary First degree atrioventricular block Incomplete RBBB Right bundle branch block Chest pain, unspecified type Chronic congestive heart failure, unspecified heart failure type (HCC) 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, unspecified vessel or lesion type ([facility]) SOB (shortness of breath) on exertion Shortness of breath documented in this encounter [facility] note* Diagnosis Chronic congestive heart failure, unspecified heart failure type (HCC)- Primary SOB (shortness of breath) Shortness of breath Pressure injury of right buttock, stage 2 (HCC) Pressure injury of left buttock, stage 2 (HCC) [facility]* Diagnosis Chest pain, unspecified type Chronic congestive heart failure, unspecified heart failure type (HCC) SOB (shortness of breath) on exertion Shortness of breath [facility] Diagnosis SOB (shortness of breath)- Primary Shortness of breath Chronic congestive heart failure, unspecified heart failure type (HCC) Pressure injury of right buttock, stage 2 (HCC) Pressure injury of left buttock, stage 2 (HCC) Skin breakdown Other specified hypertrophic and atrophic condition of skin Dysuria Acute cystitis with hematuria Acute cystitis Chronic low back pain, unspecified back pain laterality, unspecified whether sciatica present Impaired mobility Other ill-defined conditions [facility]* Diagnosis Insomnia, unspecified type [facility]* Diagnosis Insomnia, unspecified type [facility]* Diagnosis Complicated UTI (urinary tract infection)- Primary Urinary tract infection, site not specified [facility]* Diagnosis Neuropathy Mononeuritis of unspecified site [facility]* Diagnosis Abnormality of gait- Primary Impaired mobility Other ill-defined conditions Fall at home, initial encounter Chronic low back pain, unspecified back pain laterality, unspecified whether sciatica present [facility]* Diagnosis Anxiety and depression Dysthymic disorder [facility]* Diagnosis Neuropathy Mononeuritis of unspecified site [facility]* Diagnosis Insomnia, unspecified type [facility]* Diagnosis Chronic diastolic congestive heart failure (HCC)- Primary Chronic diastolic heart failure Chest discomfort Other chest pain 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) Essential hypertension Unspecified essential hypertension Mixed hyperlipidemia Impaired fasting glucose S/P CABG x 4 Postsurgical aortocoronary bypass status Hyponatremia Hyposmolality and/or hyponatremia [facility]* Diagnosis Neuropathy Mononeuritis of unspecified site documented [facility]* Diagnosis Chest pain, unspecified type SOB (shortness of breath) on exertion Shortness of breath documented [facility] this [facility]* Diagnosis Neuropathy Mononeuritis of unspecified site Abnormal stress test Other nonspecific abnormal cardiovascular system function study documented [facility]* Diagnosis Essential hypertension Unspecified essential hypertension Abnormal stress test Other nonspecific abnormal cardiovascular system function study [facility]* Diagnosis 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)- Primary Chronic diastolic congestive heart failure (HCC) Chronic diastolic heart failure Essential hypertension Unspecified essential hypertension Mixed hyperlipidemia Abnormal stress test Other nonspecific abnormal cardiovascular system function study Abnormal stress test Other nonspecific abnormal cardiovascular system function study [facility]* Diagnosis 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)- Primary documented [facility]* Diagnosis Neuropathy Mononeuritis of unspecified site Unstable angina (HCC) Intermediate coronary syndrome ACS (acute coronary syndrome) (HCC) Intermediate coronary syndrome [facility]* Diagnosis SOB (shortness of breath) on exertion Shortness of breath History of recent hospitalization Personal history of unspecified disease Positive D dimer Abnormal coagulation profile [facility]* Diagnosis SOB (shortness of breath) on exertion- Primary Shortness of breath Essential hypertension Unspecified essential hypertension Chronic diastolic congestive heart failure (HCC) Chronic diastolic heart failure Peripheral vascular disease (HCC) Peripheral vascular disease, unspecified Post PTCA Postsurgical percutaneous transluminal coronary angioplasty status Hyponatremia Hyposmolality and/or hyponatremia Impaired mobility Other ill-defined conditions [facility]* Diagnosis Neuropathy Mononeuritis of unspecified site [facility]* Diagnosis Anxiety and depression Dysthymic disorder documented [facility]* Diagnosis Chest discomfort Other chest pain [facility]* Diagnosis Peripheral vascular disease (HCC)- Primary Peripheral vascular disease, unspecified SOB (shortness of breath) Shortness of breath SOB (shortness of breath) on exertion Shortness of breath documented [facility]* Diagnosis SOB (shortness of breath) on exertion Shortness of breath documented [facility] this [facility]* Diagnosis SOB (shortness of breath) on exertion- Primary Shortness of breath Postnasal drip Chronic diastolic congestive heart failure (HCC) Chronic diastolic heart failure Pulmonary nodule seen on imaging study Solitary pulmonary nodule Need for pneumococcal vaccination Need for prophylactic vaccination against streptococcus pneumoniae (pneumococcus) documented [facility] this [facility]* Diagnosis Neuropathy Mononeuritis of unspecified site documented in this encounter [facility]* Diagnosis Chest discomfort Other chest pain documented in this encounter [facility]* Diagnosis Anxiety and depression Dysthymic disorder documented in this encounter [facility] note* Diagnosis Encounter for immunization- Primary Need for other specified prophylactic vaccination against single bacterial disease documented [facility]* Diagnosis Dyspnea, unspecified type documented in this encounter [facility] note* Diagnosis Peripheral vascular disease (HCC) Peripheral vascular disease, unspecified Neuropathy Mononeuritis of unspecified site Chest discomfort Other chest pain documented in this encounter [facility] note* Diagnosis Dyspnea, unspecified type documented [facility] this [facility]* Diagnosis 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 ([facility])- Primary Lung nodules Other nonspecific abnormal finding of lung field ILD (interstitial lung disease) ([facility]) 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 pulmonary fibrosis Class 2 obesity due to excess calories with body mass index (BMI) of 36.0 to 36.9 in adult, unspecified whether serious comorbidity present Angina at rest ([facility]) Other and unspecified angina pectoris documented [facility] this [facility]* Diagnosis Hyponatremia- Primary Hyposmolality and/or hyponatremia documented in this [facility]* Diagnosis Insomnia, unspecified type documented in this encounter [facility]* Diagnosis Lung nodules Other nonspecific abnormal finding of lung field documented in this [facility]* Diagnosis Neuropathy Mononeuritis of unspecified site Essential hypertension Unspecified essential hypertension [facility]* Diagnosis Essential hypertension Unspecified essential hypertension documented [facility] this [facility]* Diagnosis Anxiety and depression Dysthymic disorder documented in this [facility]* Diagnosis Neuropathy Mononeuritis of unspecified site documented in this [facility]* Diagnosis 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)- Primary Lung nodules Other nonspecific abnormal finding of lung field ILD (interstitial lung disease) (HCC) 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 pulmonary fibrosis Class 2 obesity due to excess calories with body mass index (BMI) of 36.0 to 36.9 in adult, unspecified whether serious comorbidity present [facility] Diagnosis Diarrhea of presumed infectious origin- Primary Positive fecal occult blood test Nonspecific abnormal finding in stool contents Diarrhea, unspecified type [facility]* Diagnosis Neuropathy Mononeuritis of unspecified site [facility]* Diagnosis Anxiety and depression Dysthymic disorder documented [facility]* Diagnosis 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 ([facility]) documented [facility]* Diagnosis Melena- Primary Blood in stool [facility]* Diagnosis Peripheral vascular disease (HCC) Peripheral vascular disease, unspecified [facility]* Diagnosis 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 ([facility])- Primary Dyspnea, unspecified type Lung nodules Other nonspecific abnormal finding of lung field ILD (interstitial lung disease) (HCC) 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 pulmonary fibrosis Class 2 obesity due to excess calories with body mass index (BMI) of 36.0 to 36.9 in adult, unspecified whether serious comorbidity present [facility]* Diagnosis Postnasal drip [facility]* Diagnosis 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) [facility]* Diagnosis 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)- Primary Lung nodules Other nonspecific abnormal finding of lung field Class 2 obesity due to excess calories with body mass index (BMI) of 36.0 to 36.9 in adult, unspecified whether serious comorbidity present ILD (interstitial lung disease) (HCC) 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 pulmonary fibrosis [facility]* Diagnosis Neuropathy Mononeuritis of unspecified site [facility]* Diagnosis Bilateral carotid artery stenosis- Primary Occlusion and stenosis of carotid artery without mention of cerebral infarction [facility]* Diagnosis Chronic GERD- Primary Melena Blood in stool Screening for colon cancer Special screening for malignant neoplasms, colon Constipation, unspecified constipation type [facility]* Diagnosis Mixed hyperlipidemia [facility]* Diagnosis Mixed hyperlipidemia documented [facility]* Diagnosis Neuropathy Mononeuritis of unspecified site documented [facility]* Diagnosis Chest pain, unspecified type- Primary Chronic GERD Melena Blood in stool Screening for colon cancer Special screening for malignant neoplasms, colon documented [facility]* Diagnosis Screening for colon cancer- Primary Special screening for malignant neoplasms, colon [facility]* Diagnosis Chronic GERD- Primary Diarrhea of presumed infectious origin Diarrhea, unspecified type [facility]* Diagnosis Neuropathy Mononeuritis of unspecified site documented [facility]* Diagnosis 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)- Primary Chronic diastolic congestive heart failure (HCC) Chronic diastolic heart failure Essential hypertension Unspecified essential hypertension Mixed hyperlipidemia Peripheral vascular disease (HCC) Peripheral vascular disease, unspecified SOB (shortness of breath) Shortness of breath Bilateral carotid artery stenosis Occlusion and stenosis of carotid artery without mention of cerebral infarction [facility]* Diagnosis Chest discomfort Other chest pain documented [facility]* Diagnosis 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) documented [facility]* Diagnosis Anxiety and depression Dysthymic disorder documented [facility]* Diagnosis Neuropathy Mononeuritis of unspecified site documented [facility]* Diagnosis Chest discomfort Other chest pain [facility]* Diagnosis Peripheral vascular disease (HCC) Peripheral vascular disease, unspecified documented [facility]* Diagnosis ILD (interstitial lung disease) ([facility])- Primary 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 pulmonary fibrosis Lung nodule Solitary pulmonary nodule COPD, mild (HCC) Chronic airway obstruction, not elsewhere classified Class 2 obesity Lung nodules Other nonspecific abnormal finding of lung field 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 ([facility]) [facility]* Diagnosis Postnasal drip documented [facility]* Diagnosis Diarrhea, unspecified type- Primary documented [facility]* Diagnosis Diarrhea, unspecified type- Primary Bilateral impacted cerumen Impacted cerumen Need for shingles vaccine Need for prophylactic vaccination and inoculation against other viral diseases documented [facility]* Diagnosis Peripheral arterial disease (HCC)- Primary Peripheral vascular disease, unspecified Onychomycosis Dermatophytosis of nail documented [facility]* Diagnosis Diarrhea, unspecified type documented [facility]* Diagnosis Peripheral arterial disease (HCC)- Primary Peripheral vascular disease, unspecified documented [facility]* Diagnosis Anxiety and depression Dysthymic disorder documented [facility]* Diagnosis Neuropathy Mononeuritis of unspecified site documented [facility]* Diagnosis Medication refill Issue of repeat prescriptions [facility]* Diagnosis Essential hypertension Unspecified essential hypertension [facility]* Diagnosis Insomnia, unspecified type documented [facility]* Diagnosis Ulcer of toe of left foot, limited to breakdown of skin (HCC)- Primary Onychomycosis Dermatophytosis of nail 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) documented [facility]* Diagnosis Ulcer of toe of left foot, limited to breakdown of skin (HCC) documented [facility]* Diagnosis Neuropathy Mononeuritis of unspecified site documented [facility]* Diagnosis Screening for colon cancer Special screening for malignant neoplasms, colon documented [facility]* Diagnosis Postnasal drip documented [facility]* Diagnosis Chest discomfort Other chest pain Peripheral vascular disease (HCC) Peripheral vascular disease, unspecified documented [facility]* Diagnosis Mixed hyperlipidemia documented [facility]* Diagnosis Interstitial pulmonary disease (HCC)- Primary 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 pulmonary fibrosis COPD, mild (HCC) Chronic airway obstruction, not elsewhere classified Chronic hypoxemic respiratory failure (HCC) Chronic respiratory failure Lung nodule Solitary pulmonary nodule [facility]* Diagnosis 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)- Primary Chronic diastolic congestive heart failure (HCC) Chronic diastolic heart failure Essential hypertension Unspecified essential hypertension Mixed hyperlipidemia Peripheral vascular disease (HCC) Peripheral vascular disease, unspecified Bilateral carotid artery stenosis Occlusion and stenosis of carotid artery without mention of cerebral infarction [facility] Diagnosis Anxiety and depression- Primary Dysthymic disorder [facility]* Diagnosis Diarrhea, unspecified type documented in this encounter [facility] [facility] Diagnosis Neuropathy Mononeuritis of unspecified site [facility] Diagnosis Onychomycosis- Primary Dermatophytosis of nail History of below-knee amputation of right lower extremity ([facility]) [facility] Diagnosis Anxiety and depression Dysthymic disorder [facility] Diagnosis Acute respiratory failure with hypoxia (HCC)- Primary Acute respiratory failure Chronic diastolic congestive heart failure (HCC) Chronic diastolic heart failure Anxiety and depression Dysthymic disorder Dependence on supplemental oxygen Hyponatremia Hyposmolality and/or hyponatremia [facility]* Diagnosis Interstitial pulmonary disease (HCC) 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 pulmonary fibrosis [facility] Diagnosis Anxiety and depression Dysthymic disorder [facility]* Diagnosis ILD (interstitial lung disease) (HCC) 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 pulmonary fibrosis [facility]* Diagnosis ILD (interstitial lung disease) (HCC) 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 pulmonary fibrosis [facility] Diagnosis Interstitial pulmonary disease (HCC) 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 pulmonary fibrosis [facility] Diagnosis ILD (interstitial lung disease) (HCC)- Primary 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 Chronic hypoxemic respiratory failure (HCC) Chronic respiratory failure COPD, mild (HCC) Chronic airway obstruction, not elsewhere classified [facility] Idiopathic pulmonary fibrosis (HCC)- Primary Idiopathic pulmonary fibrosis Chronic hypoxemic respiratory failure (HCC) Chronic respiratory failure Pulmonary arterial hypertension (HCC) Other chronic pulmonary heart diseases [facility] Diagnosis Neuropathy Mononeuritis of unspecified site [facility] Diagnosis Insomnia, unspecified type Essential hypertension Unspecified essential hypertension Chest discomfort Other chest pain Neuropathy Mononeuritis of unspecified site Medication refill Issue of repeat prescriptions Mixed hyperlipidemia Anxiety and depression Dysthymic disorder Diarrhea, unspecified type Peripheral vascular disease (HCC) Peripheral vascular disease, unspecified documented in this encounter [facility]* Diagnosis ILD (interstitial lung disease) (HCC)- Primary 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 pulmonary fibrosis Dependence on supplemental oxygen Chronic diastolic congestive heart failure (HCC) Chronic diastolic heart failure Hyponatremia Hyposmolality and/or hyponatremia Encounter for immunization Need for other specified prophylactic vaccination against single bacterial disease [facility] Diagnosis Essential hypertension Unspecified essential hypertension documented in this encounter [facility] note* Diagnosis 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 Chronic respiratory failure with hypoxia (HCC) Chronic respiratory failure Hypersensitivity pneumonitis (HCC) Unspecified allergic alveolitis and pneumonitis Gastroesophageal reflux disease, unspecified whether esophagitis present [facility]* Diagnosis Neuropathy Mononeuritis of unspecified site Insomnia, unspecified type [facility]* Diagnosis Chronic respiratory failure with hypoxia (HCC) Chronic respiratory failure [facility]* Diagnosis Chronic respiratory failure with hypoxia (HCC) Chronic respiratory failure 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) Hypersensitivity pneumonitis (HCC) Unspecified allergic alveolitis and pneumonitis [facility]* Diagnosis Insomnia, unspecified type documented [facility]* Diagnosis Essential hypertension Unspecified essential hypertension Mixed hyperlipidemia documented [facility]* Diagnosis Hypersensitivity pneumonitis (HCC)- Primary Unspecified allergic alveolitis and pneumonitis documented [facility]* Diagnosis Neuropathy Mononeuritis of unspecified site documented [facility] this [facility]* Diagnosis Peripheral vascular disease (HCC) Peripheral vascular disease, unspecified [facility]* Diagnosis Hypersensitivity pneumonitis (HCC)- Primary Unspecified allergic alveolitis and pneumonitis Chronic respiratory failure with hypoxia (HCC) Chronic respiratory failure 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) Acute hypoxic respiratory failure (HCC) Chronic obstructive pulmonary disease with acute exacerbation (HCC) Obstructive chronic bronchitis with exacerbation [facility] Interstitial pulmonary disease (HCC)- Primary 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 pulmonary fibrosis Wheezing Acute on chronic hypoxic respiratory failure (HCC) [facility] Diagnosis Interstitial pulmonary disease (HCC) 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 pulmonary fibrosis Wheezing Acute on chronic hypoxic respiratory failure (HCC) [facility] Diagnosis ILD (interstitial lung disease) (HCC)- Primary 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 pulmonary fibrosis Acute on chronic hypoxic respiratory failure (HCC) Dependence on supplemental oxygen SOB (shortness of breath) on exertion Shortness of breath Wheezing Neuropathy Mononeuritis of unspecified site Anxiety and depression Dysthymic disorder Itching Unspecified pruritic disorder [facility] Diagnosis Chest discomfort Other chest pain [facility] Diagnosis Wheezing- Primary Acute on chronic hypoxic respiratory failure (HCC) Community acquired bacterial pneumonia Bacterial pneumonia, unspecified [facility] noteNo assessment information availableWOhioHealth Work Phone: Evaluation note* Diagnosis Mixed hyperlipidemia [facility]* Diagnosis Hypersensitivity pneumonitis (HCC) Unspecified allergic alveolitis and pneumonitis [facility] Diagnosis 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 Chronic diastolic congestive heart failure (HCC) Chronic diastolic heart failure Essential hypertension Unspecified essential hypertension Mixed hyperlipidemia Peripheral vascular disease Peripheral vascular disease, unspecified Bilateral carotid artery stenosis Occlusion and stenosis of carotid artery without mention of cerebral infarction [facility] Diagnosis Pulmonary arterial hypertension (HCC) Other chronic pulmonary heart diseases [facility] Diagnosis Onychomycosis- Primary Dermatophytosis of nail 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) Hallux valgus of left foot [facility] Diagnosis Hypoglycemia- Primary Hypoglycemia, unspecified [facility] Diagnosis Hypersensitivity pneumonitis (HCC)- Primary Unspecified allergic alveolitis and pneumonitis [facility] Diagnosis Hand injury, right, initial encounter- Primary Swelling of right hand Hand injury, right, initial encounter Swelling of right hand [facility]* Diagnosis Hypersensitivity pneumonitis (HCC)- Primary Unspecified allergic alveolitis and pneumonitis 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) Unspecified immunity deficiency Chronic respiratory failure with hypoxia (HCC) Chronic respiratory failure Gastroesophageal reflux disease, unspecified whether esophagitis present Class 2 obesity due to excess calories with body mass index (BMI) of 36.0 to 36.9 in adult, unspecified whether serious comorbidity present Herpes zoster without complication Herpes zoster without mention of complication High risk medication use Encounter for long-term (current) use of other medications [facility] Diagnosis Hand injury, right, initial encounter Swelling of right hand [facility]* Diagnosis Closed boxer's fracture, initial encounter- Primary [facility]* Diagnosis Insomnia, unspecified type documented in this encounter [facility] note* Diagnosis 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) Unspecified immunity deficiency documented in this encounter [facility] note* Diagnosis Closed boxer's fracture with routine healing, subsequent encounter- Primary [facility]* Diagnosis Diarrhea, unspecified type [facility]* Diagnosis Hospital discharge follow-up- Primary Other follow-up examination ILD (interstitial lung disease) (HCC) 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 pulmonary 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 Chronic hypoxemic respiratory failure (HCC) Chronic respiratory failure Former smoker Personal history of tobacco use, presenting hazards to health documented in this encounter [facility] note* Diagnosis Hypersensitivity pneumonitis (HCC)- Primary Unspecified allergic alveolitis and pneumonitis Chronic respiratory failure with hypoxia (HCC) Chronic respiratory failure 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) Acute hypoxic respiratory failure (HCC) Chronic obstructive pulmonary disease with acute exacerbation (HCC) Obstructive chronic bronchitis with exacerbation [facility]* Diagnosis Interstitial pulmonary disease (HCC)- Primary 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 pulmonary fibrosis Bronchiectasis without acute exacerbation (HCC) Bronchiectasis without acute exacerbation Hypersensitivity pneumonitis (HCC) Unspecified allergic alveolitis and pneumonitis Chronic respiratory failure with hypoxia (HCC) Chronic respiratory failure 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) skilled nursing (current) use of systemic steroids [facility] Diagnosis Acute on chronic hypoxic respiratory failure (HCC)- Primary Sepsis due to pneumonia (HCC) ILD (interstitial lung disease) (HCC) 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 pulmonary fibrosis Dependence on supplemental oxygen SOB (shortness of breath) on exertion Shortness of breath Essential tremor Essential and other specified forms of tremor Hyponatremia Hyposmolality and/or hyponatremia Essential hypertension Unspecified essential hypertension Chronic GERD Impaired ambulation Requires assistance with activities of daily living (ADL) [facility]* Diagnosis Acute hypoxic respiratory failure (HCC)- Primary Hypersensitivity pneumonitis (HCC) Unspecified allergic alveolitis and pneumonitis [facility]* Diagnosis Bronchiectasis without acute exacerbation (HCC)- Primary Bronchiectasis without acute exacerbation [facility]* Diagnosis Onychomycosis- Primary Dermatophytosis of nail 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) Left foot pain Pain in limb [facility]* Diagnosis Chronic obstructive pulmonary disease with acute exacerbation (HCC)- Primary Obstructive chronic bronchitis with exacerbation ILD (interstitial lung disease) (HCC) 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 pulmonary fibrosis Chronic hypoxemic respiratory failure (HCC) Chronic respiratory failure [facility]* Diagnosis ILD (interstitial lung disease) (HCC)- Primary 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 pulmonary fibrosis Dependence on supplemental oxygen SOB (shortness of breath) on exertion Shortness of breath Essential hypertension Unspecified essential hypertension Impaired ambulation Requires assistance with activities of daily living (ADL) Confusion Unspecified psychosis Impaired mobility Other ill-defined conditions Chronic diastolic congestive heart failure (HCC) Chronic diastolic heart failure Chronic respiratory failure with hypoxia (HCC) Chronic respiratory failure [facility]* Diagnosis Peripheral vascular disease Peripheral vascular disease, unspecified Anxiety and depression Dysthymic disorder [facility]* Diagnosis ILD (interstitial lung disease) (HCC)- Primary 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 pulmonary fibrosis Dependence on supplemental oxygen SOB (shortness of breath) on exertion Shortness of breath Impaired ambulation Requires assistance with activities of daily living (ADL) Confusion Unspecified psychosis Impaired mobility Other ill-defined conditions Essential tremor Essential and other specified forms of tremor Neuropathy Mononeuritis of unspecified site [facility] Name Dates Details Instructions not documented [facility] [address] [facility] Outpatient Procedure (Routine) - Authorized Specialty Diagnoses / Procedures Referred By Kita t Referred To Contact [facility] Diagnoses Chest pain, unspecified type Procedures ECG COMPLETE ECG ROUTINE ECG W/LEAST 12 LDS W/I&R Alma Gill APRN.TAG MACHINE OPERATOR [address] [place] [address] [facility] [place] [address] [place] [address] Referral ID Status Reason Start Date Expiration Date Visits Requested Visits Authorized [id number] Authorized Auto-Generat ed Referral 02/01/2022 02/01/2023 1 1 [facility] for referral (narrative)* Diagnostic Procedure Only (Routine) - Pending Review Specialty Diagnoses / Procedures Referred By Kita t Referred To Contact [facility] Diagnoses Chest pain, unspecified type SOB (shortness of breath) on exertion Procedures NM CARDIAC PERF STRESS/PHARM MYOCARDIAL SPECT MULTIPLE STUDIES Alma Gill APRN.TAG MACHINE OPERATOR [address] [place] [address] [facility] [address] [place] [address] Referral ID Status Reason Start Date Expiration Date Visits Requested Visits Authorized [id number] Pending Review Auto-Generat ed Referral 02/12/2022 03/14/2023 1 1 * Outpatient Procedure (Routine) - Pending Review Specialty Diagnoses / Procedures [facility] To [facility] [place] Diagnoses Chest pain, unspecified type Chronic congestive heart failure, unspecified heart failure type (HCC) SOB (shortness of breath) on exertion Procedures ECHO ECHO TTHRC R-T 2D W/WOM-MODE COMPL SPEC&COLR D Alma Gill APRN.TAG MACHINE OPERATOR [address] [place] [address] [facility] [place] [address] [place] [id number] Referral ID Status Reason Start Date Expiration Date Visits Requested Visits Authorized [id number] Pending Review Auto-Generat ed Referral 02/12/2022 02/12/2023 1 1 * Consult, Test, Treat (Routine) - Authorized Specialty Diagnoses / Procedures Referred By Kita t Referred To Contact Cardiology / [facility] Department Diagnoses 1st degree AV block Incomplete RBBB Chest pain, unspecified type Chronic congestive heart failure, unspecified heart failure type (HCC) 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, unspecified vessel or lesion type (HCC) SOB (shortness of breath) on exertion Procedures CONSULT TO CARDIOLOGY OFFICE/OUTPATIENT [facility] HIGH MDM 60-74 MINUTES Alma Gill APRN.TAG MACHINE OPERATOR [address] [place] [address] [place], [address] [address] Referral ID Status Reason Start Date Expiration Date Visits Requested Visits Authorized [id number] Authorized PCP Requested Referral 02/12/2022 02/12/2023 1 1 [facility] for referral (narrative)* Outpatient Procedure (Routine) - Closed Specialty Diagnoses / Procedures Referred By Kita taylor Referred To [facility] Diagnoses Chest pain, unspecified type Chronic congestive heart failure, unspecified heart failure type (HCC) SOB (shortness of breath) on exertion Procedures ECHO ECHO TTHRC R-T 2D W/WOM-MODE COMPL SPEC&COLR D Alma Gill APRN.TAG MACHINE OPERATOR [address] [place] [address] [facility] [place] [address] [place] [address] Referral ID Status Reason Start Date Expiration Date V isits Requested Visits Authorized [id number] Closed Auto-Generate d Referral 02/12/2022 02/12/2023 1 1 [facility] for referral (narrative)* Diagnostic Procedure Only (Routine) - Closed Specialty Diagnoses / Procedures Referred By Contac t Referred To Contact [facility] Diagnoses Chest pain, unspecified type SOB (shortness of breath) on exertion Procedures NM CARDIAC PERF STRESS/PHARM MYOCARDIAL SPECT MULTIPLE STUDIES Alma Gill APRN.CNP [address] [place] [address] [facility] [address] [place] [address] Referral ID Status Reason Start Date Expiration Date V isits Requested Visits Authorized [id number] Closed Auto-Generate d Referral 02/12/2022 03/14/2023 1 1 [facility] for referral (narrative)* Outpatient Procedure (Routine) - Pending Review Specialty Diagnoses / Procedures [facility] Diagnoses Bilateral carotid artery stenosis Procedures US CAROTID ARTERIES [facility] DUPLEX SCAN EXTRACRANIAL ART COMPL BI STUDY Beatrice Sarmiento MD [address] [place] [address] [facility] [place] [address] [place] [address] Referral ID Status Reason Start Date Expiration Date Visits Requested Visits Authorized [id number] Pending Review Auto-Generat ed Referral 04/16/2023 04/15/2024 1 1 [facility] for referral (narrative)* Outpatient Procedure (Routine) - Pending Review Specialty Diagnoses / Procedures Referred By Contac t Referred To Contact [facility] Diagnoses Screening for colon cancer Procedures COLONOSCOPY SCREENING COLONOSCOPY FLX DX W/COLLJ SPEC WHEN PFRMD Mone Robertson PA-C [address] [place] [address] [address] Referral ID Status Reason Start Date Expiration Date Visits Requested Visits Authorized [id number] Pending Review Auto-Generat ed Referral 3 04/23/2024 1 1 * Outpatient Procedure (Routine) - Pending Review Specialty Diagnoses / Procedures Referred By Kita t Referred To Contact [facility] Diagnoses Chronic GERD Melena Procedures EGD DIAGNOSTIC ESOPHAGOGASTRODUODENOS COPY TRANSORAL DIAGNOSTIC Mone Robertson PA-C [address] [place] [address] [address] Referral ID Status Reason Start Date Expiration Date Visits Requested Visits Authorized [id number] Pending Review Auto-Generat ed Referral 3 04/23/2024 1 1 [facility] for referral (narrative)* Outpatient Procedure (Routine) - Closed Specialty Diagnoses / Procedures Referred By Kita taylor Referred To Contact [facility] Diagnoses Screening for colon cancer Procedures COLONOSCOPY SCREENING COLONOSCOPY FLX DX W/COLLJ SPEC WHEN PFRMD Mone Robertson PA-C [address] [place] [address] [address] Referral ID Status Reason Start Date Expiration Date V isits Requested Visits Authorized [id number] Closed Auto-Generate d Referral 04/23/2023 04/23/2024 1 1 * Outpatient Procedure (Routine) - Closed Specialty Diagnoses / Procedures Referred By Kita taylor Referred To Contact [facility] Diagnoses Chronic GERD Melena Procedures EGD DIAGNOSTIC ESOPHAGOGASTRODUODENOS COPY TRANSORAL DIAGNOSTIC Mone Robertson PA-C [address] [place] [address] [address] Referral ID Status Reason Start Date Expiration Date V isits Requested Visits Authorized [id number] Closed Auto-Generate d Referral 04/23/2023 04/23/2024 1 1 [facility] for referral (narrative)* Outpatient Procedure (Routine) - Authorized Specialty Diagnoses / Procedures Referred By Contac t Referred To Contact [facility] Diagnoses Screening for colon cancer Procedures COLONOSCOPY SCREENING COLONOSCOPY FLX DX W/COLLJ SPEC WHEN PFRMD Mone Robertson PA-C [address] [place] [address] [address] Referral ID Status Reason Start Date Expiration Date Visits Requested Visits Authorized [id number] Authorized Auto-Generat ed Referral 06/27/2023 06/27/2024 1 1 [facility] for referral (narrative)* Outpatient Procedure (Routine) - Pending Review Specialty Diagnoses / Procedures Referred By Contac t Referred To Contact [facility] Diagnoses ILD (interstitial lung disease) (HCC) Procedures LUNG DIFFUSION CAPACITY (DLCO) DIFFUSING CAPACITY Francisco Patel MD [address] [place] [address] [address] Referral ID Status Reason Start Date Expiration Date Visits Requested Visits Authorized [id number] Pending Review Auto-Generat ed Referral 09/09/2023 10/08/2024 1 1 * Outpatient Procedure (Routine) - Pending Review Specialty Diagnoses / Procedures Referred By Contac t Referred To [facility] Diagnoses ILD (interstitial lung disease) (HCC) Procedures LUNG VOLUMES Francisco Patel MD [address] [place] [address] [facility] [place] [address] [place] [address] Referral ID Status Reason Start Date Expiration Date Visits Requested Visits Authorized [id number] Pending Review Auto-Generat ed Referral 09/09/2023 10/08/2024 1 1 * MRI/CT (Routine) - Pending Review Specialty Diagnoses / Procedures Referred By Contac t Referred To Contact CT IMAGING Diagnoses Lung nodules Procedures CT CHEST WO IVCON DIAGNOSTIC COMPUTED TOMOGRAPHY THORAX W/O DLT Francisco Patel MD [address] [place] [address] [place] [address] Referral ID Status Reason Start Date Expiration Date Visits Requested Visits Authorized [id number] Pending Review Auto-Generat ed Referral 09/08/2024 10/08/2024 1 1 [facility] for referral (narrative)* Diagnostic Procedure Only (Routine) - Closed Specialty Diagnoses / Procedures [facility] To Contact [facility] IM[facility] Diagnoses Ulcer of toe of left foot, limited to breakdown of skin (HCC) Procedures XR TOE AP/LAT/OBL LEFT RADEX TOE MINIMUM 2 VIEWS Francesco Tobias [address] [place] [address] [place] [address] Referral ID Status Reason Start Date Expiration Date V isits Requested Visits Authorized [id number] Closed Auto-Generate d Referral 11/21/2023 12/20/2024 1 1 [facility] for referral (narrative)* Outpatient Procedure (Routine) - Closed Specialty Diagnoses / [facility] Diagnoses Screening for colon cancer Procedures COLONOSCOPY SCREENING COLONOSCOPY SCREENING COLONOSCOPY FLX DX W/COLLJ SPEC WHEN PFRMD Mone Robertson PA-C [address] [place] [address] [facility] [place] [address] [place] [address] Referral ID Status Reason Start Date Expiration Date V isits Requested Visits Authorized [id number] Closed Auto-Generate d Referral 06/27/2023 06/27/2024 1 1 [facility] for referral (narrative)* Outpatient Procedure (Routine) - Authorized Specialty Diagnoses / Procedures Referred By Contac t Referred To Contact [facility] Diagnoses Interstitial pulmonary disease (HCC) Procedures OXIMETRY WITH AMBULATION NONINVASIVE EAR/PULSE OXIMETRY MULTIPLE DETER Lilian Rodríguez PA-C [address] [place] [address] [facility] [place] [address] [place] [address] Referral ID Status Reason Start Date Expiration Date Visits Requested Visits Authorized [id number] Authorized Auto-Generat ed Referral 01/29/2024 02/27/2025 1 1 * MRI/CT (Routine) - Authorized Specialty Diagnoses / Procedures Referred By Contac t Referred To Contact CT IMAGING Diagnoses Interstitial pulmonary disease (HCC) Procedures CT CHEST WO IVCON DIAGNOSTIC COMPUTED TOMOGRAPHY THORAX W/O CNTRST Lilian Rodríguez PA-C [address] [place] [address] Ct Imaging [facility] Referral ID Status Reason Start Date Expiration Date Visits Requested Visits Authorized [id number] Authorized Auto-Generat ed Referral 02/27/2025 1 1 [facility] for referral (narrative)* Outpatient Procedure (Routine) - New Request Specialty Diagnoses / Procedures Referred By Contac t Referred To Contact [facility] Diagnoses Pulmonary arterial hypertension (HCC) Procedures ECHO ECHO TTHRC R-T 2D W/WOM-MODE COMPL SPEC&COLR D Click, Mitchell M, TECHNICAL APPLICATIONS SCIENTIST.EVANS [address] [facility] [address] [place] [address] [facility] [place] [address] [place] [address] Referral ID Status Reason Start Date Expiration Date Visits Requested Visits Authorized [id number] New Request Auto-Generat ed Referral 4 03/27/2025 1 1 [facility] for referral (narrative)* Outpatient Procedure (Routine) - Authorized Specialty Diagnoses / Procedures Referred By Contac t Referred To Contact [facility] Diagnoses Chronic respiratory failure with hypoxia (HCC) 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) Hypersensitivity pneumonitis (HCC) Procedures LUNG DIFFUSION CAPACITY (DLCO) DIFFUSING CAPACITY Tru Simon MD [address] [address] [facility] [place] [address] [place], [place] [id number] Referral ID Status Reason Start Date Expiration Date Visits Requested Visits Authorized [id number] Authorized Auto-Generat ed Referral 4 05/22/2025 1 1 * Outpatient Procedure (Routine) - Authorized Specialty Diagnoses / Procedures Referred By Contac t Referred To Contact [facility] Diagnoses Chronic respiratory failure with hypoxia (HCC) Procedures SPIROMETRY BASELINE ONLY SPMTRY W/VC EXPIRATORY ANGELA W/WO MXML VOL VNTJ Tru Simon MD [address] [place] [address] [place] [address] Res[facility] [place] [id number] Referral ID Status Reason Start Date Expiration Date Visits Requested Visits Authorized [id number] Authorized Auto-Generat ed Referral 4 05/22/2025 1 1 [facility] for referral (narrative)No reason for referral information [facility] Work Phone: Reason for visit Narrative* Outpatient Procedure (Routine) - Closed Specialty Diagnoses / Procedures Referred By Kita taylor Referred To Contact [facility] Diagnoses Chest pain, unspecified type Chronic congestive heart failure, unspecified heart failure type (HCC) SOB (shortness of breath) on exertion Procedures ECHO ECHO TTHRC R-T 2D W/WOM-MODE COMPL SPEC&COLR D Alma Gill, TECHNICAL APPLICATIONS SCIENTIST.TAG MACHINE OPERATOR [address] [place] [address] [facility] [place] [address] [place] [address] Referral ID Status Reason Start Date Expiration Date V isits Requested Visits Authorized [id number] Closed Auto-Generate d Referral 02/12/2022 02/12/2023 1 1 [facility] for visit Narrative* Diagnostic Procedure Only (Routine) - Closed Specialty Diagnoses / Procedures Referred By Kita taylor Referred To Contact MOLECULAR [facility] FUNCTIONAL IMAGING Diagnoses Chest pain, unspecified type SOB (shortness of breath) on exertion Procedures NM CARDIAC PERF STRESS/PHARM MYOCARDIAL SPECT MULTIPLE STUDIES Alma Gill, TECHNICAL APPLICATIONS SCIENTIST.TAG MACHINE OPERATOR [address] [place] [address] Molecular [facility] Functional Imaging [address] [place] [address] Referral ID Status Reason Start Date Expiration Date V isits Requested Visits Authorized [id number] Closed Auto-Generate d Referral 02/12/2022 03/14/2023 1 1 [facility] for visit Narrative* Outpatient Procedure (Routine) - Closed Specialty Diagnoses / Procedures Referred By Kita taylor Referred To Contact [facility] Diagnoses Screening for colon cancer Procedures COLONOSCOPY SCREENING COLONOSCOPY FLX DX W/COLLJ SPEC WHEN PFRMD Mone Robertson PA-C [address] [place] [address] [facility] [place] [address] [place] [address] Referral ID Status Reason Start Date Expiration Date V isits Requested Visits Authorized [id number] Closed Auto-Generate d Referral 04/23/2023 04/23/2024 1 1 [facility] for visit Narrative* Diagnostic Procedure Only (Routine) - Closed Specialty Diagnoses / Procedures Referred By Contac t Referred To Contact XR IMAGING Diagnoses Ulcer of toe of left foot, limited to breakdown of skin (HCC) Procedures XR TOE AP/LAT/OBL LEFT RADEX TOE MINIMUM 2 VIEWS Francesco Tobias [address] [place] [address] [place] [address] Referral ID Status Reason Start Date Expiration Date V isits Requested Visits Authorized [id number] Closed Auto-Generate d Referral 11/21/2023 12/20/2024 1 1 [facility] for visit Narrative* Outpatient Procedure (Routine) - Closed Specialty Diagnoses / Procedures [facility] Diagnoses Screening for colon cancer Procedures COLONOSCOPY SCREENING COLONOSCOPY SCREENING COLONOSCOPY FLX DX W/COLLJ SPEC WHEN Mone Valiente PA-C [address] [place] [address] [facility] [place] [address] [place] [address] Referral ID Status Reason Start Date Expiration Date V isits Requested Visits Authorized [id number] Closed Auto-Generate d Referral 06/27/2023 06/27/2024 1 1 [facility] for visit Narrative* MRI/CT (Routine) - Closed Specialty Diagnoses / Procedures [facility] Ref[facility] To Contact CT IMAGING Diagnoses Interstitial pulmonary disease (HCC) Wheezing Acute on chronic hypoxic respiratory failure (HCC) Procedures CT CHEST WO IVCON DIAGNOSTIC COMPUTED TOMOGRAPHY THORAX W/O CNTRST Tru Simon MD [address] [address] Phone: tel: fax: [place] [address] Referral ID Status Reason Start Date Expiration Date V isits Requested Visits Authorized [id number] Closed Auto-Generate d Referral 07/13/2024 08/12/2025 1 1 [facility] for visit Narrative* Outpatient Procedure (Routine) - Closed Specialty Diagnoses / Procedures [facility] Diagnoses Pulmonary arterial hypertension (HCC) Procedures ECHO ECHO TTHRC R-T 2D W/WOM-MODE COMPL SPEC&COLR D Mitchell Caruso, TECHNICAL APPLICATIONS SCIENTIST.TAG MACHINE OPERATOR [address] [place] [address] Phone: tel: fax: [facility] [place] [address] [place] [address] Referral ID Status Reason Start Date Expiration Date V isits Requested Visits Authorized [id number] Closed Auto-Generate d Referral 03/27/2024 03/27/2025 1 [facility] Diagnostic Procedure Only (Routine) - Closed Specialty Diagnoses / Procedures Referred By Contac t Referred To Contact XR IMAGING Diagnoses Hand injury, right, initial encounter Swelling of right hand Procedures XR HAND GENERAL 3V PA/LAT/OBL RIGHT RADEX HAND MINIMUM 3 VIEWS Alma Gill, TECHNICAL APPLICATIONS SCIENTIST.TAG MACHINE OPERATOR [address] [place] [address] Phone: tel: fax: [place] [address] Referral ID Status Reason Start Date Expiration Date V isits Requested Visits Authorized [id number] Closed Auto-Generate d Referral 09/21/2024 10/21/2025 1 1 [facility] Summary Purpose Family History No Family History Records Found Mother Name Dates Details Family history of malignant neoplasm(V16.9, Z80.9) Status:Active Family history of atrial fib rillation(V17.49, Z82.49) Status:Active Family history of tremor(V17 .2, Z82.0) Status:Active Family history of chronic ob structive pulmonary disease(V17.6, Z82.5) Status:Active Father Name Dates Details Family history of cardiac di sorder(V17.49, Z82.49) Status:Active Advance Directives No Advanced Directives Records Found Date Activated Date Inactivated Comments 10/13/2024 2:47 AM 10/16/2024 6:55 PM Question Answer Comments Full Code Order Discussed With: Patient Date Activated Date Inactivated Comments 01/11/2024 10:52 PM 01/16/2024 6:17 PM Question Answer Comments Full Code Order Discussed With: Patient Date Activated Date Inactivated Comments 08/10/2022 6:29 PM 08/11/2022 7:09 PM Question Answer Comments Full Code Order Discussed With: Patient Date Activated Date Inactivated Comments 10/13/2024 2:47 AM Date Activated Date Inactivated Comments 01/11/2024 10:52 PM 01/16/2024 6:17 PM Date Activated Date Inactivated Comments 08/10/2022 6:29 PM 08/11/2022 7:09 PM Date Activated Date Inactivated Comments 01/11/2024 10:52 PM Documents on File Type Date Recorded 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 Advance Directive(s) 05/22/2020 5:58 PM Documents on File Type Date Recorded 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 Advance Directive(s) 05/22/2020 5:58 PM Latest Code Status on File Code Status Date Activated Date Inactivated Comments Full Code 08/10/2022 6:29 PM 08/11/2022 7:09 PM Full Code Order Discussed With: Patient Latest Code Status on File Code Status Date Activated Date Inactivated Comments Full Code 08/10/2022 6:29 PM 08/11/2022 7:09 PM Latest Code Status on File Code Status Date Activated Date Inactivated Comments Full Code 08/10/2022 6:29 PM 08/11/2022 7:09 PM Question Answer Comments Full Code Order Discussed With: Patient Latest Code Status on File Code Status Date Activated Date Inactivated Comments Full Code 08/10/2022 6:29 PM 08/11/2022 7:09 PM Question Answer Comments Full Code Order Discussed With: Patient Date Activated Date Inactivated Comments 08/10/2022 6:29 PM 08/11/2022 7:09 PM Date Activated Date Inactivated Comments 08/10/2022 6:29 PM 08/11/2022 7:09 PM Question Answer Comments Full Code Order Discussed With: Patient Date Activated Date Inactivated Comments 01/11/2024 10:52 PM 01/16/2024 6:17 PM Date Activated Date Inactivated Comments 08/10/2022 6:29 PM 08/11/2022 7:09 PM Question Answer Comments Full Code Order Discussed With: Patient Date Activated Date Inactivated Comments 10/13/2024 2:47 AM 10/16/2024 6:55 PM Date Activated Date Inactivated Comments 01/11/2024 10:52 PM 01/16/2024 6:17 PM Date Activated Date Inactivated Comments 08/10/2022 6:29 PM 08/11/2022 7:09 PM Question Answer Comments Full Code Order Discussed With: Patient Reason for Referral Specialty Diagnoses / Procedures Referred By Contac t Referred To Contact Neurology / [facility] Department Diagnoses 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 60-74 MINUTES Alma Gill APRN.TAG MACHINE OPERATOR [address] [place] [address] Sonny Gallardo DO [address] [address] Referral ID Status Reason Start Date Expiration Date Visits Requested Visits Authorized [id number] Pending Review PCP Requested Referral 11/23/2021 11/23/2022 1 1 Specialty Diagnoses / Procedures Referred By Contac t Referred To Contact General Surgery Diagnoses Screening for colon cancer Procedures CONSULT TO GENERAL SURGERY OFFICE/OUTPATIENT [facility] 60-74 MINUTES [place] [address] Dereje Pace MD [address] [place] [address] Referral ID Status Reason Start Date Expiration Date Visits Requested Visits Authorized [id number] Pending Review PCP Requested Referral 11/23/2021 11/23/2022 1 1 Specialty Diagnoses / Procedures Referred By Contac t Referred To Contact CT IMAGING Diagnoses SOB (shortness of breath) on exertion History of recent hospitalization Positive D dimer Procedures CT CHEST W IVCON PE DIAGNOSTIC COMPUTED TOMOGRAPHY THORAX W/CONTRAST Alma Gill APRN.TAG MACHINE OPERATOR [address] [place] [address] Ct Imaging Referral ID Status Reason Start Date Expiration Date V isits Requested Visits Authorized [id number] Closed Auto-Generate d Referral 05/13/2022 05/12/2023 1 1 Specialty Diagnoses / Procedures Referred By Contac t Referred To Contact [facility] Department Diagnoses SOB (shortness of breath) on exertion Procedures CONSULT TO PULMONARY MEDICINE Alma Gill APRN.TAG MACHINE OPERATOR [address] [place] [address] Francisco Patel MD [address] [place] [address] Referral ID Status Reason Start Date Expiration Date Visits Requested Visits Authorized [id number] Ref Not Required PCP Requested Referral 09/13/2022 12/12/2022 1 1 Specialty Diagnoses / Procedures Referred By Contac t Referred To Contact CT IMAGING Diagnoses Lung nodules Procedures CT CHEST WO IVCON DIAGNOSTIC COMPUTED TOMOGRAPHY THORAX W/O Francisco Solitario MD [address] [place] [address] Ct Imaging Referral ID Status Reason Start Date Expiration Date Visits Requested Visits Authorized [id number] Authorized Auto-Generat ed Referral 12/10/2022 12/20/2023 1 1 Specialty Diagnoses / Procedures Referred By Contac t Referred To Contact Diagnoses Hyponatremia Procedures CONSULT TO NEPHROLOGY OFFICE/OUTPATIENT [facility] 60-74 MINUTES Alma Gill, TECHNICAL APPLICATIONS SCIENTIST.TAG MACHINE OPERATOR [address] [place] [address] [place], [facility] [address] [place] [address] Referral ID Status Reason Start Date Expiration Date Visits Requested Visits Authorized [id number] Authorized PCP Requested Referral 11/16/2022 11/16/2023 1 1 Specialty Diagnoses / Procedures Referred By Contact Referred To Contact Gastroenterology / [facility] DEPARTMENT Diagnoses Positive fecal occult blood test Diarrhea, unspecified type Procedures CONSULT TO GASTROENTEROLOGY OFFICE/OUTPATIENT [facility] 60-74 MINUTES Alma Gill, TECHNICAL APPLICATIONS SCIENTIST.TAG MACHINE OPERATOR [address] [place] [address] [place] [address] Referral ID Status Reason Start Date Expiration Date Visits Requested Visits Authorized [id number] Authorized PCP Requested Referral 02/08/2023 02/08/2024 1 1 Specialty Diagnoses / Procedures Referred By Contac t Referred To Contact CT IMAGING Diagnoses Lung nodules Procedures CT CHEST WO IVCON DIAGNOSTIC COMPUTED TOMOGRAPHY THORAX W/O Lilian Ray PA-C [address] [place] [address] Ct Imaging [place] [address] Referral ID Status Reason Start Date Expiration Date Visits Requested Visits Authorized [id number] Authorized Auto-Generat ed Referral 05/16/2023 05/14/2024 1 1 Specialty Diagnoses / Procedures Referred By Contac t Referred To Contact Podiatry Diagnoses Onychomycosis Procedures CONSULT TO PODIATRY OFFICE/OUTPATIENT [facility] 60 MINUTES Katelynn Knowles, DO [address] [place] [id number] Referral ID Status Reason Start Date Expiration Date Visits Requested Visits Authorized [id number] Authorized PCP Requested Referral 08/29/2023 08/28/2024 1 1 Specialty Diagnoses / Procedures Referred By Contac t Referred To Contact [facility] Diagnoses Peripheral arterial disease (HCC) Procedures PVR [facility] NON-INVASIVE PHYSIOLOGIC STUDY EXTREMITY 3 LEVLS Katelynn Knowles, DO [address] [place] [id number] [facility] [place] [address] [place] [address] Referral ID Status Reason Start Date Expiration Date Visits Requested Visits Authorized [id number] Authorized Auto-Generat ed Referral 08/29/2023 08/28/2024 1 1 Specialty Diagnoses / Procedures Referred By Contac t Referred To Contact Diagnoses Hypersensitivity pneumonitis (HCC) Tru Simon MD [address] [address] Referral ID Status Reason Start Date Expiration Date V isits Requested Visits Authorized [id number] Pending Review 1 1 Medications Administered Section Inactive Administered Medications - up to 3 most recent administrations Medication Order MAR Action Action Date Dose Rate Site regadenoson 0.4 mg injection (LEXISCAN) 0.4 mg, INTRAVENOUS, ONCE, 1 dose, On Sat06/19/22 at 1100, Give 0.4 mg (5 mL) over ~10 seconds, followed immediately by a 5 mL saline flush. Wait 10-20 seconds, then administer the radionuclide myocardial perfusion imaging agent. Given 06/19/2022 11:00 AM EST 0.4 mg Chief Complaint and Reason for Visit Chief Complaint Admit Date LABWORK July 20, 2024 10: 48pm Additional Source Comments (unrecognized sect ion and content) No Status Records FoundNo Status Records FoundNo Status Records FoundNo Status Records FoundNo Status Records FoundNo Status Records FoundNo Status Records Found INFORMATION SOURCE (unrecogn ized section and content) DATE CREATED AUTHOR 07/07/2020 [facility] DATE CREATED AUTHOR AUTHOR'S ORGANIZ ATION 10/19/2021 [facility] DATE CREATED AUTHOR AUTHOR'S ORGANIZ ATION 06/16/2024 [facility] DATE CREATED AUTHOR AUTHOR'S ORGANIZ ATION 07/31/2024 [facility] DATE CREATED AUTHOR AUTHOR'S ORGANIZ ATION 10/17/2024 [facility] DATE CREATED AUTHOR AUTHOR'S ORGANIZ ATION 03/03/2025 [facility] DATE CREATED AUTHOR AUTHOR'S ORGANIZ ATION 03/18/2025 [facility] Source Comments (unrecognize d section and content) In the event this informatio n is protected by the Federal Confidentiality of Alcohol and Drug Abuse Patient Records regulations: The Federal rules restrict any use of the information to criminally investigate or prosecute any alcohol or drug abuse patient.[facility] the event this information is protected by the Federal Confidentiality of Alcohol and Drug Abuse Patient Records regulations: The Federal rules restrict any use of the information to criminally investigate or prosecute any alcohol or drug abuse patient.[facility] the event this information is protected by the Federal Confidentiality of Alcohol and Drug Abuse Patient Records regulations: The Federal rules restrict any use of the information to criminally investigate or prosecute any alcohol or drug abuse patient.[facility] the event this information is protected by the Federal Confidentiality of Alcohol and Drug Abuse Patient Records regulations: The Federal rules restrict any use of the information to criminally investigate or prosecute any alcohol or drug abuse patient.[facility] the event this information is protected by the Federal Confidentiality of Alcohol and Drug Abuse Patient Records regulations: The Federal rules restrict any use of the information to criminally investigate or prosecute any alcohol or drug abuse patient.[facility] the event this information is protected by the Federal Confidentiality of Alcohol and Drug Abuse Patient Records regulations: The Federal rules restrict any use of the information to criminally investigate or prosecute any alcohol or drug abuse patient.[facility] Hospital[facility] the event this information is protected by the Federal Confidentiality of Alcohol and Drug Abuse Patient Records regulations: The Federal rules restrict any use of the information to criminally investigate or prosecute any alcohol or drug abuse patient.[facility] the event this information is protected by the Federal Confidentiality of Alcohol and Drug Abuse Patient Records regulations: The Federal rules restrict any use of the information to criminally investigate or prosecute any alcohol or drug abuse patient.[facility] Hospital[facility] the event this information is protected by the Federal Confidentiality of Alcohol and Drug Abuse Patient Records regulations: The Federal rules restrict any use of the information to criminally investigate or prosecute any alcohol or drug abuse patient.[facility] Hospital[facility] the event this information is protected by the Federal Confidentiality of Alcohol and Drug Abuse Patient Records regulations: The Federal rules restrict any use of the information to criminally investigate or prosecute any alcohol or drug abuse patient.[facility] the event this information is protected by the Federal Confidentiality of Alcohol and Drug Abuse Patient Records regulations: The Federal rules restrict any use of the information to criminally investigate or prosecute any alcohol or drug abuse patient.[facility] Hospital[facility] the event this information is protected by the Federal Confidentiality of Alcohol and Drug Abuse Patient Records regulations: The Federal rules restrict any use of the information to criminally investigate or prosecute any alcohol or drug abuse patient.[facility] Hospital[facility] the event this information is protected by the Federal Confidentiality of Alcohol and Drug Abuse Patient Records regulations: The Federal rules restrict any use of the information to criminally investigate or prosecute any alcohol or drug abuse patient.[facility] Hospital[facility] the event this information is protected by the Federal Confidentiality of Alcohol and Drug Abuse Patient Records regulations: The Federal rules restrict any use of the information to criminally investigate or prosecute any alcohol or drug abuse patient.[facility] Hospital[facility] the event this information is protected by the Federal Confidentiality of Alcohol and Drug Abuse Patient Records regulations: The Federal rules restrict any use of the information to criminally investigate or prosecute any alcohol or drug abuse patient.[facility] Hospital[facility] the event this information is protected by the Federal Confidentiality of Alcohol and Drug Abuse Patient Records regulations: The Federal rules restrict any use of the information to criminally investigate or prosecute any alcohol or drug abuse patient.[facility] Hospital[facility] the event this information is protected by the Federal Confidentiality of Alcohol and Drug Abuse Patient Records regulations: The Federal rules restrict any use of the information to criminally investigate or prosecute any alcohol or drug abuse patient.[facility] Hospital[facility] the event this information is protected by the Federal Confidentiality of Alcohol and Drug Abuse Patient Records regulations: The Federal rules restrict any use of the information to criminally investigate or prosecute any alcohol or drug abuse patient.[facility] Hospital[facility] the event this information is protected by the Federal Confidentiality of Alcohol and Drug Abuse Patient Records regulations: The Federal rules restrict any use of the information to criminally investigate or prosecute any alcohol or drug abuse patient.[facility] HospitalIn the event this information is protected by the Federal Confidentiality of Alcohol and Drug Abuse Patient Records regulations: The Federal rules restrict any use of the information to criminally investigate or prosecute any alcohol or drug abuse patient.[facility] HospitalIn the event this information is protected by the Federal Confidentiality of Alcohol and Drug Abuse Patient Records regulations: The Federal rules restrict any use of the information to criminally investigate or prosecute any alcohol or drug abuse patient.[facility] HospitalIn the event this information is protected by the Federal Confidentiality of Alcohol and Drug Abuse Patient Records regulations: The Federal rules restrict any use of the information to criminally investigate or prosecute any alcohol or drug abuse patient.[facility] HospitalIn the event this information is protected by the Federal Confidentiality of Alcohol and Drug Abuse Patient Records regulations: The Federal rules restrict any use of the information to criminally investigate or prosecute any alcohol or drug abuse patient.[facility] HospitalIn the event this information is protected by the Federal Confidentiality of Alcohol and Drug Abuse Patient Records regulations: The Federal rules restrict any use of the information to criminally investigate or prosecute any alcohol or drug abuse patient.[facility] HospitalIn the event this information is protected by the Federal Confidentiality of Alcohol and Drug Abuse Patient Records regulations: The Federal rules restrict any use of the information to criminally investigate or prosecute any alcohol or drug abuse patient.[facility] HospitalIn the event this information is protected by the Federal Confidentiality of Alcohol and Drug Abuse Patient Records regulations: The Federal rules restrict any use of the information to criminally investigate or prosecute any alcohol or drug abuse patient.[facility] HospitalIn the event this information is protected by the Federal Confidentiality of Alcohol and Drug Abuse Patient Records regulations: The Federal rules restrict any use of the information to criminally investigate or prosecute any alcohol or drug abuse patient.[facility] HospitalIn the event this information is protected by the Federal Confidentiality of Alcohol and Drug Abuse Patient Records regulations: The Federal rules restrict any use of the information to criminally investigate or prosecute any alcohol or drug abuse patient.[facility] HospitalIn the event this information is protected by the Federal Confidentiality of Alcohol and Drug Abuse Patient Records regulations: The Federal rules restrict any use of the information to criminally investigate or prosecute any alcohol or drug abuse patient.[facility] HospitalIn the event this information is protected by the Federal Confidentiality of Alcohol and Drug Abuse Patient Records regulations: The Federal rules restrict any use of the information to criminally investigate or prosecute any alcohol or drug abuse patient.[facility] HospitalIn the event this information is protected by the Federal Confidentiality of Alcohol and Drug Abuse Patient Records regulations: The Federal rules restrict any use of the information to criminally investigate or prosecute any alcohol or drug abuse patient.[facility] HospitalIn the event this information is protected by the Federal Confidentiality of Alcohol and Drug Abuse Patient Records regulations: The Federal rules restrict any use of the information to criminally investigate or prosecute any alcohol or drug abuse patient.[facility] HospitalIn the event this information is protected by the Federal Confidentiality of Alcohol and Drug Abuse Patient Records regulations: The Federal rules restrict any use of the information to criminally investigate or prosecute any alcohol or drug abuse patient.[facility] HospitalIn the event this information is protected by the Federal Confidentiality of Alcohol and Drug Abuse Patient Records regulations: The Federal rules restrict any use of the information to criminally investigate or prosecute any alcohol or drug abuse patient.[facility] HospitalIn the event this information is protected by the Federal Confidentiality of Alcohol and Drug Abuse Patient Records regulations: The Federal rules restrict any use of the information to criminally investigate or prosecute any alcohol or drug abuse patient.[facility] HospitalIn the event this information is protected by the Federal Confidentiality of Alcohol and Drug Abuse Patient Records regulations: The Federal rules restrict any use of the information to criminally investigate or prosecute any alcohol or drug abuse patient.[facility] HospitalIn the event this information is protected by the Federal Confidentiality of Alcohol and Drug Abuse Patient Records regulations: The Federal rules restrict any use of the information to criminally investigate or prosecute any alcohol or drug abuse patient.[facility] HospitalIn the event this information is protected by the Federal Confidentiality of Alcohol and Drug Abuse Patient Records regulations: The Federal rules restrict any use of the information to criminally investigate or prosecute any alcohol or drug abuse patient.[facility] HospitalIn the event this information is protected by the Federal Confidentiality of Alcohol and Drug Abuse Patient Records regulations: The Federal rules restrict any use of the information to criminally investigate or prosecute any alcohol or drug abuse patient.[facility] HospitalIn the event this information is protected by the Federal Confidentiality of Alcohol and Drug Abuse Patient Records regulations: The Federal rules restrict any use of the information to criminally investigate or prosecute any alcohol or drug abuse patient.[facility] HospitalIn the event this information is protected by the Federal Confidentiality of Alcohol and Drug Abuse Patient Records regulations: The Federal rules restrict any use of the information to criminally investigate or prosecute any alcohol or drug abuse patient.[facility] HospitalIn the event this information is protected by the Federal Confidentiality of Alcohol and Drug Abuse Patient Records regulations: The Federal rules restrict any use of the information to criminally investigate or prosecute any alcohol or drug abuse patient.[facility] HospitalIn the event this information is protected by the Federal Confidentiality of Alcohol and Drug Abuse Patient Records regulations: The Federal rules restrict any use of the information to criminally investigate or prosecute any alcohol or drug abuse patient.[facility] HospitalIn the event this information is protected by the Federal Confidentiality of Alcohol and Drug Abuse Patient Records regulations: The Federal rules restrict any use of the information to criminally investigate or prosecute any alcohol or drug abuse patient.[facility] HospitalIn the event this information is protected by the Federal Confidentiality of Alcohol and Drug Abuse Patient Records regulations: The Federal rules restrict any use of the information to criminally investigate or prosecute any alcohol or drug abuse patient.[facility] HospitalIn the event this information is protected by the Federal Confidentiality of Alcohol and Drug Abuse Patient Records regulations: The Federal rules restrict any use of the information to criminally investigate or prosecute any alcohol or drug abuse patient.[facility] HospitalIn the event this information is protected by the Federal Confidentiality of Alcohol and Drug Abuse Patient Records regulations: The Federal rules restrict any use of the information to criminally investigate or prosecute any alcohol or drug abuse patient.[facility] HospitalIn the event this information is protected by the Federal Confidentiality of Alcohol and Drug Abuse Patient Records regulations: The Federal rules restrict any use of the information to criminally investigate or prosecute any alcohol or drug abuse patient.[facility] HospitalIn the event this information is protected by the Federal Confidentiality of Alcohol and Drug Abuse Patient Records regulations: The Federal rules restrict any use of the information to criminally investigate or prosecute any alcohol or drug abuse patient.[facility] HospitalIn the event this information is protected by the Federal Confidentiality of Alcohol and Drug Abuse Patient Records regulations: The Federal rules restrict any use of the information to criminally investigate or prosecute any alcohol or drug abuse patient.[facility] HospitalIn the event this information is protected by the Federal Confidentiality of Alcohol and Drug Abuse Patient Records regulations: The Federal rules restrict any use of the information to criminally investigate or prosecute any alcohol or drug abuse patient.[facility] HospitalIn the event this information is protected by the Federal Confidentiality of Alcohol and Drug Abuse Patient Records regulations: The Federal rules restrict any use of the information to criminally investigate or prosecute any alcohol or drug abuse patient.[facility] HospitalIn the event this information is protected by the Federal Confidentiality of Alcohol and Drug Abuse Patient Records regulations: The Federal rules restrict any use of the information to criminally investigate or prosecute any alcohol or drug abuse patient.[facility] HospitalIn the event this information is protected by the Federal Confidentiality of Alcohol and Drug Abuse Patient Records regulations: The Federal rules restrict any use of the information to criminally investigate or prosecute any alcohol or drug abuse patient.[facility] HospitalIn the event this information is protected by the Federal Confidentiality of Alcohol and Drug Abuse Patient Records regulations: The Federal rules restrict any use of the information to criminally investigate or prosecute any alcohol or drug abuse patient.[facility] HospitalIn the event this information is protected by the Federal Confidentiality of Alcohol and Drug Abuse Patient Records regulations: The Federal rules restrict any use of the information to criminally investigate or prosecute any alcohol or drug abuse patient.[facility] HospitalIn the event this information is protected by the Federal Confidentiality of Alcohol and Drug Abuse Patient Records regulations: The Federal rules restrict any use of the information to criminally investigate or prosecute any alcohol or drug abuse patient.[facility] HospitalIn the event this information is protected by the Federal Confidentiality of Alcohol and Drug Abuse Patient Records regulations: The Federal rules restrict any use of the information to criminally investigate or prosecute any alcohol or drug abuse patient.[facility] HospitalIn the event this information is protected by the Federal Confidentiality of Alcohol and Drug Abuse Patient Records regulations: The Federal rules restrict any use of the information to criminally investigate or prosecute any alcohol or drug abuse patient.[facility] HospitalIn the event this information is protected by the Federal Confidentiality of Alcohol and Drug Abuse Patient Records regulations: The Federal rules restrict any use of the information to criminally investigate or prosecute any alcohol or drug abuse patient.[facility] HospitalIn the event this information is protected by the Federal Confidentiality of Alcohol and Drug Abuse Patient Records regulations: The Federal rules restrict any use of the information to criminally investigate or prosecute any alcohol or drug abuse patient.[facility] HospitalIn the event this information is protected by the Federal Confidentiality of Alcohol and Drug Abuse Patient Records regulations: The Federal rules restrict any use of the information to criminally investigate or prosecute any alcohol or drug abuse patient.[facility] HospitalIn the event this information is protected by the Federal Confidentiality of Alcohol and Drug Abuse Patient Records regulations: The Federal rules restrict any use of the information to criminally investigate or prosecute any alcohol or drug abuse patient.[facility] HospitalIn the event this information is protected by the Federal Confidentiality of Alcohol and Drug Abuse Patient Records regulations: The Federal rules restrict any use of the information to criminally investigate or prosecute any alcohol or drug abuse patient.[facility] HospitalIn the event this information is protected by the Federal Confidentiality of Alcohol and Drug Abuse Patient Records regulations: The Federal rules restrict any use of the information to criminally investigate or prosecute any alcohol or drug abuse patient.[facility] HospitalIn the event this information is protected by the Federal Confidentiality of Alcohol and Drug Abuse Patient Records regulations: The Federal rules restrict any use of the information to criminally investigate or prosecute any alcohol or drug abuse patient.[facility] HospitalIn the event this information is protected by the Federal Confidentiality of Alcohol and Drug Abuse Patient Records regulations: The Federal rules restrict any use of the information to criminally investigate or prosecute any alcohol or drug abuse patient.[facility] HospitalIn the event this information is protected by the Federal Confidentiality of Alcohol and Drug Abuse Patient Records regulations: The Federal rules restrict any use of the information to criminally investigate or prosecute any alcohol or drug abuse patient.[facility] HospitalIn the event this information is protected by the Federal Confidentiality of Alcohol and Drug Abuse Patient Records regulations: The Federal rules restrict any use of the information to criminally investigate or prosecute any alcohol or drug abuse patient.[facility] HospitalIn the event this information is protected by the Federal Confidentiality of Alcohol and Drug Abuse Patient Records regulations: The Federal rules restrict any use of the information to criminally investigate or prosecute any alcohol or drug abuse patient.[facility] HospitalIn the event this information is protected by the Federal Confidentiality of Alcohol and Drug Abuse Patient Records regulations: The Federal rules restrict any use of the information to criminally investigate or prosecute any alcohol or drug abuse patient.[facility] HospitalIn the event this information is protected by the Federal Confidentiality of Alcohol and Drug Abuse Patient Records regulations: The Federal rules restrict any use of the information to criminally investigate or prosecute any alcohol or drug abuse patient.[facility] HospitalIn the event this information is protected by the Federal Confidentiality of Alcohol and Drug Abuse Patient Records regulations: The Federal rules restrict any use of the information to criminally investigate or prosecute any alcohol or drug abuse patient.[facility] HospitalIn the event this information is protected by the Federal Confidentiality of Alcohol and Drug Abuse Patient Records regulations: The Federal rules restrict any use of the information to criminally investigate or prosecute any alcohol or drug abuse patient.[facility] HospitalIn the event this information is protected by the Federal Confidentiality of Alcohol and Drug Abuse Patient Records regulations: The Federal rules restrict any use of the information to criminally investigate or prosecute any alcohol or drug abuse patient.[facility] HospitalIn the event this information is protected by the Federal Confidentiality of Alcohol and Drug Abuse Patient Records regulations: The Federal rules restrict any use of the information to criminally investigate or prosecute any alcohol or drug abuse patient.[facility] HospitalIn the event this information is protected by the Federal Confidentiality of Alcohol and Drug Abuse Patient Records regulations: The Federal rules restrict any use of the information to criminally investigate or prosecute any alcohol or drug abuse patient.[facility] HospitalIn the event this information is protected by the Federal Confidentiality of Alcohol and Drug Abuse Patient Records regulations: The Federal rules restrict any use of the information to criminally investigate or prosecute any alcohol or drug abuse patient.[facility] HospitalIn the event this information is protected by the Federal Confidentiality of Alcohol and Drug Abuse Patient Records regulations: The Federal rules restrict any use of the information to criminally investigate or prosecute any alcohol or drug abuse patient.[facility] HospitalIn the event this information is protected by the Federal Confidentiality of Alcohol and Drug Abuse Patient Records regulations: The Federal rules restrict any use of the information to criminally investigate or prosecute any alcohol or drug abuse patient.[facility] HospitalIn the event this information is protected by the Federal Confidentiality of Alcohol and Drug Abuse Patient Records regulations: The Federal rules restrict any use of the information to criminally investigate or prosecute any alcohol or drug abuse patient.[facility] HospitalIn the event this information is protected by the Federal Confidentiality of Alcohol and Drug Abuse Patient Records regulations: The Federal rules restrict any use of the information to criminally investigate or prosecute any alcohol or drug abuse patient.[facility] HospitalIn the event this information is protected by the Federal Confidentiality of Alcohol and Drug Abuse Patient Records regulations: The Federal rules restrict any use of the information to criminally investigate or prosecute any alcohol or drug abuse patient.[facility] HospitalIn the event this information is protected by the Federal Confidentiality of Alcohol and Drug Abuse Patient Records regulations: The Federal rules restrict any use of the information to criminally investigate or prosecute any alcohol or drug abuse patient.[facility] HospitalIn the event this information is protected by the Federal Confidentiality of Alcohol and Drug Abuse Patient Records regulations: The Federal rules restrict any use of the information to criminally investigate or prosecute any alcohol or drug abuse patient.[facility] HospitalIn the event this information is protected by the Federal Confidentiality of Alcohol and Drug Abuse Patient Records regulations: The Federal rules restrict any use of the information to criminally investigate or prosecute any alcohol or drug abuse patient.[facility] HospitalIn the event this information is protected by the Federal Confidentiality of Alcohol and Drug Abuse Patient Records regulations: The Federal rules restrict any use of the information to criminally investigate or prosecute any alcohol or drug abuse patient.[facility] HospitalIn the event this information is protected by the Federal Confidentiality of Alcohol and Drug Abuse Patient Records regulations: The Federal rules restrict any use of the information to criminally investigate or prosecute any alcohol or drug abuse patient.[facility] HospitalIn the event this information is protected by the Federal Confidentiality of Alcohol and Drug Abuse Patient Records regulations: The Federal rules restrict any use of the information to criminally investigate or prosecute any alcohol or drug abuse patient.[facility] HospitalIn the event this information is protected by the Federal Confidentiality of Alcohol and Drug Abuse Patient Records regulations: The Federal rules restrict any use of the information to criminally investigate or prosecute any alcohol or drug abuse patient.[facility] HospitalIn the event this information is protected by the Federal Confidentiality of Alcohol and Drug Abuse Patient Records regulations: The Federal rules restrict any use of the information to criminally investigate or prosecute any alcohol or drug abuse patient.[facility] HospitalIn the event this information is protected by the Federal Confidentiality of Alcohol and Drug Abuse Patient Records regulations: The Federal rules restrict any use of the information to criminally investigate or prosecute any alcohol or drug abuse patient.[facility] HospitalIn the event this information is protected by the Federal Confidentiality of Alcohol and Drug Abuse Patient Records regulations: The Federal rules restrict any use of the information to criminally investigate or prosecute any alcohol or drug abuse patient.[facility] HospitalIn the event this information is protected by the Federal Confidentiality of Alcohol and Drug Abuse Patient Records regulations: The Federal rules restrict any use of the information to criminally investigate or prosecute any alcohol or drug abuse patient.[facility] HospitalIn the event this information is protected by the Federal Confidentiality of Alcohol and Drug Abuse Patient Records regulations: The Federal rules restrict any use of the information to criminally investigate or prosecute any alcohol or drug abuse patient.[facility] HospitalIn the event this information is protected by the Federal Confidentiality of Alcohol and Drug Abuse Patient Records regulations: The Federal rules restrict any use of the information to criminally investigate or prosecute any alcohol or drug abuse patient.[facility] HospitalIn the event this information is protected by the Federal Confidentiality of Alcohol and Drug Abuse Patient Records regulations: The Federal rules restrict any use of the information to criminally investigate or prosecute any alcohol or drug abuse patient.[facility] HospitalIn the event this information is protected by the Federal Confidentiality of Alcohol and Drug Abuse Patient Records regulations: The Federal rules restrict any use of the information to criminally investigate or prosecute any alcohol or drug abuse patient.[facility] HospitalIn the event this information is protected by the Federal Confidentiality of Alcohol and Drug Abuse Patient Records regulations: The Federal rules restrict any use of the information to criminally investigate or prosecute any alcohol or drug abuse patient.[facility] HospitalIn the event this information is protected by the Federal Confidentiality of Alcohol and Drug Abuse Patient Records regulations: The Federal rules restrict any use of the information to criminally investigate or prosecute any alcohol or drug abuse patient.[facility]In the event this information is protected by the Federal Confidentiality of Alcohol and Drug Abuse Patient Records regulations: The Federal rules restrict any use of the information to criminally investigate or prosecute any alcohol or drug abuse patient.[facility] HospitalIn the event this information is protected by the Federal Confidentiality of Alcohol and Drug Abuse Patient Records regulations: The Federal rules restrict any use of the information to criminally investigate or prosecute any alcohol or drug abuse patient.[facility] HospitalIn the event this information is protected by the Federal Confidentiality of Alcohol and Drug Abuse Patient Records regulations: The Federal rules restrict any use of the information to criminally investigate or prosecute any alcohol or drug abuse patient.[facility] HospitalIn the event this information is protected by the Federal Confidentiality of Alcohol and Drug Abuse Patient Records regulations: The Federal rules restrict any use of the information to criminally investigate or prosecute any alcohol or drug abuse patient.[facility] HospitalIn the event this information is protected by the Federal Confidentiality of Alcohol and Drug Abuse Patient Records regulations: The Federal rules restrict any use of the information to criminally investigate or prosecute any alcohol or drug abuse patient.[facility] HospitalIn the event this information is protected by the Federal Confidentiality of Alcohol and Drug Abuse Patient Records regulations: The Federal rules restrict any use of the information to criminally investigate or prosecute any alcohol or drug abuse patient.[facility] HospitalIn the event this information is protected by the Federal Confidentiality of Alcohol and Drug Abuse Patient Records regulations: The Federal rules restrict any use of the information to criminally investigate or prosecute any alcohol or drug abuse patient.[facility] HospitalIn the event this information is protected by the Federal Confidentiality of Alcohol and Drug Abuse Patient Records regulations: The Federal rules restrict any use of the information to criminally investigate or prosecute any alcohol or drug abuse patient.[facility] HospitalIn the event this information is protected by the Federal Confidentiality of Alcohol and Drug Abuse Patient Records regulations: The Federal rules restrict any use of the information to criminally investigate or prosecute any alcohol or drug abuse patient.[facility] HospitalIn the event this information is protected by the Federal Confidentiality of Alcohol and Drug Abuse Patient Records regulations: The Federal rules restrict any use of the information to criminally investigate or prosecute any alcohol or drug abuse patient.[facility] HospitalIn the event this information is protected by the Federal Confidentiality of Alcohol and Drug Abuse Patient Records regulations: The Federal rules restrict any use of the information to criminally investigate or prosecute any alcohol or drug abuse patient.[facility] HospitalIn the event this information is protected by the Federal Confidentiality of Alcohol and Drug Abuse Patient Records regulations: The Federal rules restrict any use of the information to criminally investigate or prosecute any alcohol or drug abuse patient.[facility] HospitalIn the event this information is protected by the Federal Confidentiality of Alcohol and Drug Abuse Patient Records regulations: The Federal rules restrict any use of the information to criminally investigate or prosecute any alcohol or drug abuse patient.[facility] HospitalIn the event this information is protected by the Federal Confidentiality of Alcohol and Drug Abuse Patient Records regulations: The Federal rules restrict any use of the information to criminally investigate or prosecute any alcohol or drug abuse patient.[facility] HospitalIn the event this information is protected by the Federal Confidentiality of Alcohol and Drug Abuse Patient Records regulations: The Federal rules restrict any use of the information to criminally investigate or prosecute any alcohol or drug abuse patient.[facility] HospitalIn the event this information is protected by the Federal Confidentiality of Alcohol and Drug Abuse Patient Records regulations: The Federal rules restrict any use of the information to criminally investigate or prosecute any alcohol or drug abuse patient.[facility] HospitalIn the event this information is protected by the Federal Confidentiality of Alcohol and Drug Abuse Patient Records regulations: The Federal rules restrict any use of the information to criminally investigate or prosecute any alcohol or drug abuse patient.[facility] HospitalIn the event this information is protected by the Federal Confidentiality of Alcohol and Drug Abuse Patient Records regulations: The Federal rules restrict any use of the information to criminally investigate or prosecute any alcohol or drug abuse patient.[facility] HospitalIn the event this information is protected by the Federal Confidentiality of Alcohol and Drug Abuse Patient Records regulations: The Federal rules restrict any use of the information to criminally investigate or prosecute any alcohol or drug abuse patient.[facility] HospitalIn the event this information is protected by the Federal Confidentiality of Alcohol and Drug Abuse Patient Records regulations: The Federal rules restrict any use of the information to criminally investigate or prosecute any alcohol or drug abuse patient.[facility] HospitalIn the event this information is protected by the Federal Confidentiality of Alcohol and Drug Abuse Patient Records regulations: The Federal rules restrict any use of the information to criminally investigate or prosecute any alcohol or drug abuse patient.[facility] HospitalIn the event this information is protected by the Federal Confidentiality of Alcohol and Drug Abuse Patient Records regulations: The Federal rules restrict any use of the information to criminally investigate or prosecute any alcohol or drug abuse patient.[facility] HospitalIn the event this information is protected by the Federal Confidentiality of Alcohol and Drug Abuse Patient Records regulations: The Federal rules restrict any use of the information to criminally investigate or prosecute any alcohol or drug abuse patient.[facility] HospitalIn the event this information is protected by the Federal Confidentiality of Alcohol and Drug Abuse Patient Records regulations: The Federal rules restrict any use of the information to criminally investigate or prosecute any alcohol or drug abuse patient.[facility] HospitalIn the event this information is protected by the Federal Confidentiality of Alcohol and Drug Abuse Patient Records regulations: The Federal rules restrict any use of the information to criminally investigate or prosecute any alcohol or drug abuse patient.[facility] HospitalIn the event this information is protected by the Federal Confidentiality of Alcohol and Drug Abuse Patient Records regulations: The Federal rules restrict any use of the information to criminally investigate or prosecute any alcohol or drug abuse patient.[facility] HospitalIn the event this information is protected by the Federal Confidentiality of Alcohol and Drug Abuse Patient Records regulations: The Federal rules restrict any use of the information to criminally investigate or prosecute any alcohol or drug abuse patient.[facility] HospitalIn the event this information is protected by the Federal Confidentiality of Alcohol and Drug Abuse Patient Records regulations: The Federal rules restrict any use of the information to criminally investigate or prosecute any alcohol or drug abuse patient.[facility] HospitalIn the event this information is protected by the Federal Confidentiality of Alcohol and Drug Abuse Patient Records regulations: The Federal rules restrict any use of the information to criminally investigate or prosecute any alcohol or drug abuse patient.[facility] HospitalIn the event this information is protected by the Federal Confidentiality of Alcohol and Drug Abuse Patient Records regulations: The Federal rules restrict any use of the information to criminally investigate or prosecute any alcohol or drug abuse patient.[facility] HospitalIn the event this information is protected by the Federal Confidentiality of Alcohol and Drug Abuse Patient Records regulations: The Federal rules restrict any use of the information to criminally investigate or prosecute any alcohol or drug abuse patient.[facility] HospitalIn the event this information is protected by the Federal Confidentiality of Alcohol and Drug Abuse Patient Records regulations: The Federal rules restrict any use of the information to criminally investigate or prosecute any alcohol or drug abuse patient.[facility] HospitalIn the event this information is protected by the Federal Confidentiality of Alcohol and Drug Abuse Patient Records regulations: The Federal rules restrict any use of the information to criminally investigate or prosecute any alcohol or drug abuse patient.[facility] HospitalIn the event this information is protected by the Federal Confidentiality of Alcohol and Drug Abuse Patient Records regulations: The Federal rules restrict any use of the information to criminally investigate or prosecute any alcohol or drug abuse patient.[facility] HospitalIn the event this information is protected by the Federal Confidentiality of Alcohol and Drug Abuse Patient Records regulations: The Federal rules restrict any use of the information to criminally investigate or prosecute any alcohol or drug abuse patient.[facility] HospitalIn the event this information is protected by the Federal Confidentiality of Alcohol and Drug Abuse Patient Records regulations: The Federal rules restrict any use of the information to criminally investigate or prosecute any alcohol or drug abuse patient.[facility] HospitalIn the event this information is protected by the Federal Confidentiality of Alcohol and Drug Abuse Patient Records regulations: The Federal rules restrict any use of the information to criminally investigate or prosecute any alcohol or drug abuse patient.[facility] HospitalIn the event this information is protected by the Federal Confidentiality of Alcohol and Drug Abuse Patient Records regulations: The Federal rules restrict any use of the information to criminally investigate or prosecute any alcohol or drug abuse patient.[facility] HospitalIn the event this information is protected by the Federal Confidentiality of Alcohol and Drug Abuse Patient Records regulations: The Federal rules restrict any use of the information to criminally investigate or prosecute any alcohol or drug abuse patient.[facility] HospitalIn the event this information is protected by the Federal Confidentiality of Alcohol and Drug Abuse Patient Records regulations: The Federal rules restrict any use of the information to criminally investigate or prosecute any alcohol or drug abuse patient.[facility] HospitalIn the event this information is protected by the Federal Confidentiality of Alcohol and Drug Abuse Patient Records regulations: The Federal rules restrict any use of the information to criminally investigate or prosecute any alcohol or drug abuse patient.[facility] HospitalIn the event this information is protected by the Federal Confidentiality of Alcohol and Drug Abuse Patient Records regulations: The Federal rules restrict any use of the information to criminally investigate or prosecute any alcohol or drug abuse patient.[facility] HospitalIn the event this information is protected by the Federal Confidentiality of Alcohol and Drug Abuse Patient Records regulations: The Federal rules restrict any use of the information to criminally investigate or prosecute any alcohol or drug abuse patient.[facility] HospitalIn the event this information is protected by the Federal Confidentiality of Alcohol and Drug Abuse Patient Records regulations: The Federal rules restrict any use of the information to criminally investigate or prosecute any alcohol or drug abuse patient.[facility] HospitalIn the event this information is protected by the Federal Confidentiality of Alcohol and Drug Abuse Patient Records regulations: The Federal rules restrict any use of the information to criminally investigate or prosecute any alcohol or drug abuse patient.[facility] HospitalIn the event this information is protected by the Federal Confidentiality of Alcohol and Drug Abuse Patient Records regulations: The Federal rules restrict any use of the information to criminally investigate or prosecute any alcohol or drug abuse patient.[facility] HospitalIn the event this information is protected by the Federal Confidentiality of Alcohol and Drug Abuse Patient Records regulations: The Federal rules restrict any use of the information to criminally investigate or prosecute any alcohol or drug abuse patient.[facility] HospitalIn the event this information is protected by the Federal Confidentiality of Alcohol and Drug Abuse Patient Records regulations: The Federal rules restrict any use of the information to criminally investigate or prosecute any alcohol or drug abuse patient.[facility] HospitalIn the event this information is protected by the Federal Confidentiality of Alcohol and Drug Abuse Patient Records regulations: The Federal rules restrict any use of the information to criminally investigate or prosecute any alcohol or drug abuse patient.[facility] HospitalIn the event this information is protected by the Federal Confidentiality of Alcohol and Drug Abuse Patient Records regulations: The Federal rules restrict any use of the information to criminally investigate or prosecute any alcohol or drug abuse patient.[facility] HospitalIn the event this information is protected by the Federal Confidentiality of Alcohol and Drug Abuse Patient Records regulations: The Federal rules restrict any use of the information to criminally investigate or prosecute any alcohol or drug abuse patient.[facility] HospitalIn the event this information is protected by the Federal Confidentiality of Alcohol and Drug Abuse Patient Records regulations: The Federal rules restrict any use of the information to criminally investigate or prosecute any alcohol or drug abuse patient.[facility] HospitalIn the event this information is protected by the Federal Confidentiality of Alcohol and Drug Abuse Patient Records regulations: The Federal rules restrict any use of the information to criminally investigate or prosecute any alcohol or drug abuse patient.[facility] HospitalIn the event this information is protected by the Federal Confidentiality of Alcohol and Drug Abuse Patient Records regulations: The Federal rules restrict any use of the information to criminally investigate or prosecute any alcohol or drug abuse patient.[facility] HospitalIn the event this information is protected by the Federal Confidentiality of Alcohol and Drug Abuse Patient Records regulations: The Federal rules restrict any use of the information to criminally investigate or prosecute any alcohol or drug abuse patient.[facility] HospitalIn the event this information is protected by the Federal Confidentiality of Alcohol and Drug Abuse Patient Records regulations: The Federal rules restrict any use of the information to criminally investigate or prosecute any alcohol or drug abuse patient.[facility] HospitalIn the event this information is protected by the Federal Confidentiality of Alcohol and Drug Abuse Patient Records regulations: The Federal rules restrict any use of the information to criminally investigate or prosecute any alcohol or drug abuse patient.[facility] HospitalIn the event this information is protected by the Federal Confidentiality of Alcohol and Drug Abuse Patient Records regulations: The Federal rules restrict any use of the information to criminally investigate or prosecute any alcohol or drug abuse patient.[facility] HospitalIn the event this information is protected by the Federal Confidentiality of Alcohol and Drug Abuse Patient Records regulations: The Federal rules restrict any use of the information to criminally investigate or prosecute any alcohol or drug abuse patient.[facility] HospitalIn the event this information is protected by the Federal Confidentiality of Alcohol and Drug Abuse Patient Records regulations: The Federal rules restrict any use of the information to criminally investigate or prosecute any alcohol or drug abuse patient.[facility] HospitalIn the event this information is protected by the Federal Confidentiality of Alcohol and Drug Abuse Patient Records regulations: The Federal rules restrict any use of the information to criminally investigate or prosecute any alcohol or drug abuse patient.[facility] HospitalIn the event this information is protected by the Federal Confidentiality of Alcohol and Drug Abuse Patient Records regulations: The Federal rules restrict any use of the information to criminally investigate or prosecute any alcohol or drug abuse patient.[facility] HospitalIn the event this information is protected by the Federal Confidentiality of Alcohol and Drug Abuse Patient Records regulations: The Federal rules restrict any use of the information to criminally investigate or prosecute any alcohol or drug abuse patient.[facility] HospitalIn the event this information is protected by the Federal Confidentiality of Alcohol and Drug Abuse Patient Records regulations: The Federal rules restrict any use of the information to criminally investigate or prosecute any alcohol or drug abuse patient.[facility] HospitalIn the event this information is protected by the Federal Confidentiality of Alcohol and Drug Abuse Patient Records regulations: The Federal rules restrict any use of the information to criminally investigate or prosecute any alcohol or drug abuse patient.[facility] HospitalIn the event this information is protected by the Federal Confidentiality of Alcohol and Drug Abuse Patient Records regulations: The Federal rules restrict any use of the information to criminally investigate or prosecute any alcohol or drug abuse patient.[facility] HospitalIn the event this information is protected by the Federal Confidentiality of Alcohol and Drug Abuse Patient Records regulations: The Federal rules restrict any use of the information to criminally investigate or prosecute any alcohol or drug abuse patient.[facility] HospitalIn the event this information is protected by the Federal Confidentiality of Alcohol and Drug Abuse Patient Records regulations: The Federal rules restrict any use of the information to criminally investigate or prosecute any alcohol or drug abuse patient.[facility] HospitalIn the event this information is protected by the Federal Confidentiality of Alcohol and Drug Abuse Patient Records regulations: The Federal rules restrict any use of the information to criminally investigate or prosecute any alcohol or drug abuse patient.[facility] HospitalIn the event this information is protected by the Federal Confidentiality of Alcohol and Drug Abuse Patient Records regulations: The Federal rules restrict any use of the information to criminally investigate or prosecute any alcohol or drug abuse patient.[facility] HospitalIn the event this information is protected by the Federal Confidentiality of Alcohol and Drug Abuse Patient Records regulations: The Federal rules restrict any use of the information to criminally investigate or prosecute any alcohol or drug abuse patient.[facility] HospitalIn the event this information is protected by the Federal Confidentiality of Alcohol and Drug Abuse Patient Records regulations: The Federal rules restrict any use of the information to criminally investigate or prosecute any alcohol or drug abuse patient.[facility] HospitalIn the event this information is protected by the Federal Confidentiality of Alcohol and Drug Abuse Patient Records regulations: The Federal rules restrict any use of the information to criminally investigate or prosecute any alcohol or drug abuse patient.[facility] HospitalIn the event this information is protected by the Federal Confidentiality of Alcohol and Drug Abuse Patient Records regulations: The Federal rules restrict any use of the information to criminally investigate or prosecute any alcohol or drug abuse patient.[facility] HospitalIn the event this information is protected by the Federal Confidentiality of Alcohol and Drug Abuse Patient Records regulations: The Federal rules restrict any use of the information to criminally investigate or prosecute any alcohol or drug abuse patient.[facility] HospitalIn the event this information is protected by the Federal Confidentiality of Alcohol and Drug Abuse Patient Records regulations: The Federal rules restrict any use of the information to criminally investigate or prosecute any alcohol or drug abuse patient.[facility] HospitalIn the event this information is protected by the Federal Confidentiality of Alcohol and Drug Abuse Patient Records regulations: The Federal rules restrict any use of the information to criminally investigate or prosecute any alcohol or drug abuse patient.[facility] HospitalIn the event this information is protected by the Federal Confidentiality of Alcohol and Drug Abuse Patient Records regulations: The Federal rules restrict any use of the information to criminally investigate or prosecute any alcohol or drug abuse patient.[facility] HospitalIn the event this information is protected by the Federal Confidentiality of Alcohol and Drug Abuse Patient Records regulations: The Federal rules restrict any use of the information to criminally investigate or prosecute any alcohol or drug abuse patient.[facility] HospitalIn the event this information is protected by the Federal Confidentiality of Alcohol and Drug Abuse Patient Records regulations: The Federal rules restrict any use of the information to criminally investigate or prosecute any alcohol or drug abuse patient.[facility] HospitalIn the event this information is protected by the Federal Confidentiality of Alcohol and Drug Abuse Patient Records regulations: The Federal rules restrict any use of the information to criminally investigate or prosecute any alcohol or drug abuse patient.[facility] HospitalIn the event this information is protected by the Federal Confidentiality of Alcohol and Drug Abuse Patient Records regulations: The Federal rules restrict any use of the information to criminally investigate or prosecute any alcohol or drug abuse patient.[facility] HospitalIn the event this information is protected by the Federal Confidentiality of Alcohol and Drug Abuse Patient Records regulations: The Federal rules restrict any use of the information to criminally investigate or prosecute any alcohol or drug abuse patient.[facility] HospitalIn the event this information is protected by the Federal Confidentiality of Alcohol and Drug Abuse Patient Records regulations: The Federal rules restrict any use of the information to criminally investigate or prosecute any alcohol or drug abuse patient.[facility] HospitalIn the event this information is protected by the Federal Confidentiality of Alcohol and Drug Abuse Patient Records regulations: The Federal rules restrict any use of the information to criminally investigate or prosecute any alcohol or drug abuse patient.[facility] HospitalIn the event this information is protected by the Federal Confidentiality of Alcohol and Drug Abuse Patient Records regulations: The Federal rules restrict any use of the information to criminally investigate or prosecute any alcohol or drug abuse patient.[facility] HospitalIn the event this information is protected by the Federal Confidentiality of Alcohol and Drug Abuse Patient Records regulations: The Federal rules restrict any use of the information to criminally investigate or prosecute any alcohol or drug abuse patient.[facility] HospitalIn the event this information is protected by the Federal Confidentiality of Alcohol and Drug Abuse Patient Records regulations: The Federal rules restrict any use of the information to criminally investigate or prosecute any alcohol or drug abuse patient.[facility] HospitalIn the event this information is protected by the Federal Confidentiality of Alcohol and Drug Abuse Patient Records regulations: The Federal rules restrict any use of the information to criminally investigate or prosecute any alcohol or drug abuse patient.[facility] HospitalIn the event this information is protected by the Federal Confidentiality of Alcohol and Drug Abuse Patient Records regulations: The Federal rules restrict any use of the information to criminally investigate or prosecute any alcohol or drug abuse patient.[facility] HospitalIn the event this information is protected by the Federal Confidentiality of Alcohol and Drug Abuse Patient Records regulations: The Federal rules restrict any use of the information to criminally investigate or prosecute any alcohol or drug abuse patient.[facility] HospitalIn the event this information is protected by the Federal Confidentiality of Alcohol and Drug Abuse Patient Records regulations: The Federal rules restrict any use of the information to criminally investigate or prosecute any alcohol or drug abuse patient.[facility] HospitalIn the event this information is protected by the Federal Confidentiality of Alcohol and Drug Abuse Patient Records regulations: The Federal rules restrict any use of the information to criminally investigate or prosecute any alcohol or drug abuse patient.[facility] HospitalIn the event this information is protected by the Federal Confidentiality of Alcohol and Drug Abuse Patient Records regulations: The Federal rules restrict any use of the information to criminally investigate or prosecute any alcohol or drug abuse patient.[facility] HospitalIn the event this information is protected by the Federal Confidentiality of Alcohol and Drug Abuse Patient Records regulations: The Federal rules restrict any use of the information to criminally investigate or prosecute any alcohol or drug abuse patient.[facility] HospitalIn the event this information is protected by the Federal Confidentiality of Alcohol and Drug Abuse Patient Records regulations: The Federal rules restrict any use of the information to criminally investigate or prosecute any alcohol or drug abuse patient.[facility] HospitalIn the event this information is protected by the Federal Confidentiality of Alcohol and Drug Abuse Patient Records regulations: The Federal rules restrict any use of the information to criminally investigate or prosecute any alcohol or drug abuse patient.[facility] HospitalIn the event this information is protected by the Federal Confidentiality of Alcohol and Drug Abuse Patient Records regulations: The Federal rules restrict any use of the information to criminally investigate or prosecute any alcohol or drug abuse patient.[facility] HospitalIn the event this information is protected by the Federal Confidentiality of Alcohol and Drug Abuse Patient Records regulations: The Federal rules restrict any use of the information to criminally investigate or prosecute any alcohol or drug abuse patient.[facility] HospitalIn the event this information is protected by the Federal Confidentiality of Alcohol and Drug Abuse Patient Records regulations: The Federal rules restrict any use of the information to criminally investigate or prosecute any alcohol or drug abuse patient.[facility] HospitalIn the event this information is protected by the Federal Confidentiality of Alcohol and Drug Abuse Patient Records regulations: The Federal rules restrict any use of the information to criminally investigate or prosecute any alcohol or drug abuse patient.[facility] HospitalIn the event this information is protected by the Federal Confidentiality of Alcohol and Drug Abuse Patient Records regulations: The Federal rules restrict any use of the information to criminally investigate or prosecute any alcohol or drug abuse patient.[facility] HospitalIn the event this information is protected by the Federal Confidentiality of Alcohol and Drug Abuse Patient Records regulations: The Federal rules restrict any use of the information to criminally investigate or prosecute any alcohol or drug abuse patient.[facility] HospitalIn the event this information is protected by the Federal Confidentiality of Alcohol and Drug Abuse Patient Records regulations: The Federal rules restrict any use of the information to criminally investigate or prosecute any alcohol or drug abuse patient.[facility] HospitalIn the event this information is protected by the Federal Confidentiality of Alcohol and Drug Abuse Patient Records regulations: The Federal rules restrict any use of the information to criminally investigate or prosecute any alcohol or drug abuse patient.[facility] HospitalIn the event this information is protected by the Federal Confidentiality of Alcohol and Drug Abuse Patient Records regulations: The Federal rules restrict any use of the information to criminally investigate or prosecute any alcohol or drug abuse patient.[facility] HospitalIn the event this information is protected by the Federal Confidentiality of Alcohol and Drug Abuse Patient Records regulations: The Federal rules restrict any use of the information to criminally investigate or prosecute any alcohol or drug abuse patient.[facility] HospitalIn the event this information is protected by the Federal Confidentiality of Alcohol and Drug Abuse Patient Records regulations: The Federal rules restrict any use of the information to criminally investigate or prosecute any alcohol or drug abuse patient.[facility] HospitalIn the event this information is protected by the Federal Confidentiality of Alcohol and Drug Abuse Patient Records regulations: The Federal rules restrict any use of the information to criminally investigate or prosecute any alcohol or drug abuse patient.[facility] HospitalIn the event this information is protected by the Federal Confidentiality of Alcohol and Drug Abuse Patient Records regulations: The Federal rules restrict any use of the information to criminally investigate or prosecute any alcohol or drug abuse patient.[facility] HospitalIn the event this information is protected by the Federal Confidentiality of Alcohol and Drug Abuse Patient Records regulations: The Federal rules restrict any use of the information to criminally investigate or prosecute any alcohol or drug abuse patient.[facility] HospitalIn the event this information is protected by the Federal Confidentiality of Alcohol and Drug Abuse Patient Records regulations: The Federal rules restrict any use of the information to criminally investigate or prosecute any alcohol or drug abuse patient.[facility] HospitalIn the event this information is protected by the Federal Confidentiality of Alcohol and Drug Abuse Patient Records regulations: The Federal rules restrict any use of the information to criminally investigate or prosecute any alcohol or drug abuse patient.[facility] HospitalIn the event this information is protected by the Federal Confidentiality of Alcohol and Drug Abuse Patient Records regulations: The Federal rules restrict any use of the information to criminally investigate or prosecute any alcohol or drug abuse patient.[facility] HospitalIn the event this information is protected by the Federal Confidentiality of Alcohol and Drug Abuse Patient Records regulations: The Federal rules restrict any use of the information to criminally investigate or prosecute any alcohol or drug abuse patient.[facility] HospitalIn the event this information is protected by the Federal Confidentiality of Alcohol and Drug Abuse Patient Records regulations: The Federal rules restrict any use of the information to criminally investigate or prosecute any alcohol or drug abuse patient.[facility] HospitalIn the event this information is protected by the Federal Confidentiality of Alcohol and Drug Abuse Patient Records regulations: The Federal rules restrict any use of the information to criminally investigate or prosecute any alcohol or drug abuse patient.[facility] HospitalIn the event this information is protected by the Federal Confidentiality of Alcohol and Drug Abuse Patient Records regulations: The Federal rules restrict any use of the information to criminally investigate or prosecute any alcohol or drug abuse patient.[facility] HospitalIn the event this information is protected by the Federal Confidentiality of Alcohol and Drug Abuse Patient Records regulations: The Federal rules restrict any use of the information to criminally investigate or prosecute any alcohol or drug abuse patient.[facility] HospitalIn the event this information is protected by the Federal Confidentiality of Alcohol and Drug Abuse Patient Records regulations: The Federal rules restrict any use of the information to criminally investigate or prosecute any alcohol or drug abuse patient.[facility] HospitalIn the event this information is protected by the Federal Confidentiality of Alcohol and Drug Abuse Patient Records regulations: The Federal rules restrict any use of the information to criminally investigate or prosecute any alcohol or drug abuse patient.[facility] HospitalIn the event this information is protected by the Federal Confidentiality of Alcohol and Drug Abuse Patient Records regulations: The Federal rules restrict any use of the information to criminally investigate or prosecute any alcohol or drug abuse patient.[facility] HospitalIn the event this information is protected by the Federal Confidentiality of Alcohol and Drug Abuse Patient Records regulations: The Federal rules restrict any use of the information to criminally investigate or prosecute any alcohol or drug abuse patient.[facility] HospitalIn the event this information is protected by the Federal Confidentiality of Alcohol and Drug Abuse Patient Records regulations: The Federal rules restrict any use of the information to criminally investigate or prosecute any alcohol or drug abuse patient.[facility] HospitalIn the event this information is protected by the Federal Confidentiality of Alcohol and Drug Abuse Patient Records regulations: The Federal rules restrict any use of the information to criminally investigate or prosecute any alcohol or drug abuse patient.[facility] HospitalIn the event this information is protected by the Federal Confidentiality of Alcohol and Drug Abuse Patient Records regulations: The Federal rules restrict any use of the information to criminally investigate or prosecute any alcohol or drug abuse patient.[facility] HospitalIn the event this information is protected by the Federal Confidentiality of Alcohol and Drug Abuse Patient Records regulations: The Federal rules restrict any use of the information to criminally investigate or prosecute any alcohol or drug abuse patient.[facility] HospitalIn the event this information is protected by the Federal Confidentiality of Alcohol and Drug Abuse Patient Records regulations: The Federal rules restrict any use of the information to criminally investigate or prosecute any alcohol or drug abuse patient.[facility] HospitalIn the event this information is protected by the Federal Confidentiality of Alcohol and Drug Abuse Patient Records regulations: The Federal rules restrict any use of the information to criminally investigate or prosecute any alcohol or drug abuse patient.[facility] HospitalIn the event this information is protected by the Federal Confidentiality of Alcohol and Drug Abuse Patient Records regulations: The Federal rules restrict any use of the information to criminally investigate or prosecute any alcohol or drug abuse patient.[facility] HospitalIn the event this information is protected by the Federal Confidentiality of Alcohol and Drug Abuse Patient Records regulations: The Federal rules restrict any use of the information to criminally investigate or prosecute any alcohol or drug abuse patient.[facility] HospitalIn the event this information is protected by the Federal Confidentiality of Alcohol and Drug Abuse Patient Records regulations: The Federal rules restrict any use of the information to criminally investigate or prosecute any alcohol or drug abuse patient.[facility] HospitalIn the event this information is protected by the Federal Confidentiality of Alcohol and Drug Abuse Patient Records regulations: The Federal rules restrict any use of the information to criminally investigate or prosecute any alcohol or drug abuse patient.[facility] HospitalIn the event this information is protected by the Federal Confidentiality of Alcohol and Drug Abuse Patient Records regulations: The Federal rules restrict any use of the information to criminally investigate or prosecute any alcohol or drug abuse patient.[facility] HospitalIn the event this information is protected by the Federal Confidentiality of Alcohol and Drug Abuse Patient Records regulations: The Federal rules restrict any use of the information to criminally investigate or prosecute any alcohol or drug abuse patient.[facility] HospitalIn the event this information is protected by the Federal Confidentiality of Alcohol and Drug Abuse Patient Records regulations: The Federal rules restrict any use of the information to criminally investigate or prosecute any alcohol or drug abuse patient.[facility] HospitalIn the event this information is protected by the Federal Confidentiality of Alcohol and Drug Abuse Patient Records regulations: The Federal rules restrict any use of the information to criminally investigate or prosecute any alcohol or drug abuse patient.[facility] HospitalIn the event this information is protected by the Federal Confidentiality of Alcohol and Drug Abuse Patient Records regulations: The Federal rules restrict any use of the information to criminally investigate or prosecute any alcohol or drug abuse patient.[facility] HospitalIn the event this information is protected by the Federal Confidentiality of Alcohol and Drug Abuse Patient Records regulations: The Federal rules restrict any use of the information to criminally investigate or prosecute any alcohol or drug abuse patient.[facility] HospitalIn the event this information is protected by the Federal Confidentiality of Alcohol and Drug Abuse Patient Records regulations: The Federal rules restrict any use of the information to criminally investigate or prosecute any alcohol or drug abuse patient.[facility] HospitalIn the event this information is protected by the Federal Confidentiality of Alcohol and Drug Abuse Patient Records regulations: The Federal rules restrict any use of the information to criminally investigate or prosecute any alcohol or drug abuse patient.[facility] HospitalIn the event this information is protected by the Federal Confidentiality of Alcohol and Drug Abuse Patient Records regulations: The Federal rules restrict any use of the information to criminally investigate or prosecute any alcohol or drug abuse patient.[facility] HospitalIn the event this information is protected by the Federal Confidentiality of Alcohol and Drug Abuse Patient Records regulations: The Federal rules restrict any use of the information to criminally investigate or prosecute any alcohol or drug abuse patient.[facility] HospitalIn the event this information is protected by the Federal Confidentiality of Alcohol and Drug Abuse Patient Records regulations: The Federal rules restrict any use of the information to criminally investigate or prosecute any alcohol or drug abuse patient.[facility] HospitalIn the event this information is protected by the Federal Confidentiality of Alcohol and Drug Abuse Patient Records regulations: The Federal rules restrict any use of the information to criminally investigate or prosecute any alcohol or drug abuse patient.[facility] HospitalIn the event this information is protected by the Federal Confidentiality of Alcohol and Drug Abuse Patient Records regulations: The Federal rules restrict any use of the information to criminally investigate or prosecute any alcohol or drug abuse patient.[facility] HospitalIn the event this information is protected by the Federal Confidentiality of Alcohol and Drug Abuse Patient Records regulations: The Federal rules restrict any use of the information to criminally investigate or prosecute any alcohol or drug abuse patient.[facility] HospitalIn the event this information is protected by the Federal Confidentiality of Alcohol and Drug Abuse Patient Records regulations: The Federal rules restrict any use of the information to criminally investigate or prosecute any alcohol or drug abuse patient.[facility] HospitalIn the event this information is protected by the Federal Confidentiality of Alcohol and Drug Abuse Patient Records regulations: The Federal rules restrict any use of the information to criminally investigate or prosecute any alcohol or drug abuse patient.[facility] HospitalIn the event this information is protected by the Federal Confidentiality of Alcohol and Drug Abuse Patient Records regulations: The Federal rules restrict any use of the information to criminally investigate or prosecute any alcohol or drug abuse patient.[facility] HospitalIn the event this information is protected by the Federal Confidentiality of Alcohol and Drug Abuse Patient Records regulations: The Federal rules restrict any use of the information to criminally investigate or prosecute any alcohol or drug abuse patient.[facility] HospitalIn the event this information is protected by the Federal Confidentiality of Alcohol and Drug Abuse Patient Records regulations: The Federal rules restrict any use of the information to criminally investigate or prosecute any alcohol or drug abuse patient.[facility] HospitalIn the event this information is protected by the Federal Confidentiality of Alcohol and Drug Abuse Patient Records regulations: The Federal rules restrict any use of the information to criminally investigate or prosecute any alcohol or drug abuse patient.[facility] HospitalIn the event this information is protected by the Federal Confidentiality of Alcohol and Drug Abuse Patient Records regulations: The Federal rules restrict any use of the information to criminally investigate or prosecute any alcohol or drug abuse patient.[facility] HospitalIn the event this information is protected by the Federal Confidentiality of Alcohol and Drug Abuse Patient Records regulations: The Federal rules restrict any use of the information to criminally investigate or prosecute any alcohol or drug abuse patient.[facility] HospitalIn the event this information is protected by the Federal Confidentiality of Alcohol and Drug Abuse Patient Records regulations: The Federal rules restrict any use of the information to criminally investigate or prosecute any alcohol or drug abuse patient.[facility] HospitalIn the event this information is protected by the Federal Confidentiality of Alcohol and Drug Abuse Patient Records regulations: The Federal rules restrict any use of the information to criminally investigate or prosecute any alcohol or drug abuse patient.[facility] HospitalIn the event this information is protected by the Federal Confidentiality of Alcohol and Drug Abuse Patient Records regulations: The Federal rules restrict any use of the information to criminally investigate or prosecute any alcohol or drug abuse patient.[facility] HospitalIn the event this information is protected by the Federal Confidentiality of Alcohol and Drug Abuse Patient Records regulations: The Federal rules restrict any use of the information to criminally investigate or prosecute any alcohol or drug abuse patient.[facility] HospitalIn the event this information is protected by the Federal Confidentiality of Alcohol and Drug Abuse Patient Records regulations: The Federal rules restrict any use of the information to criminally investigate or prosecute any alcohol or drug abuse patient.[facility] HospitalIn the event this information is protected by the Federal Confidentiality of Alcohol and Drug Abuse Patient Records regulations: The Federal rules restrict any use of the information to criminally investigate or prosecute any alcohol or drug abuse patient.[facility] HospitalIn the event this information is protected by the Federal Confidentiality of Alcohol and Drug Abuse Patient Records regulations: The Federal rules restrict any use of the information to criminally investigate or prosecute any alcohol or drug abuse patient.[facility] HospitalIn the event this information is protected by the Federal Confidentiality of Alcohol and Drug Abuse Patient Records regulations: The Federal rules restrict any use of the information to criminally investigate or prosecute any alcohol or drug abuse patient.[facility] HospitalIn the event this information is protected by the Federal Confidentiality of Alcohol and Drug Abuse Patient Records regulations: The Federal rules restrict any use of the information to criminally investigate or prosecute any alcohol or drug abuse patient.[facility] HospitalIn the event this information is protected by the Federal Confidentiality of Alcohol and Drug Abuse Patient Records regulations: The Federal rules restrict any use of the information to criminally investigate or prosecute any alcohol or drug abuse patient.[facility] HospitalIn the event this information is protected by the Federal Confidentiality of Alcohol and Drug Abuse Patient Records regulations: The Federal rules restrict any use of the information to criminally investigate or prosecute any alcohol or drug abuse patient.[facility] HospitalIn the event this information is protected by the Federal Confidentiality of Alcohol and Drug Abuse Patient Records regulations: The Federal rules restrict any use of the information to criminally investigate or prosecute any alcohol or drug abuse patient.[facility] HospitalIn the event this information is protected by the Federal Confidentiality of Alcohol and Drug Abuse Patient Records regulations: The Federal rules restrict any use of the information to criminally investigate or prosecute any alcohol or drug abuse patient.[facility] HospitalIn the event this information is protected by the Federal Confidentiality of Alcohol and Drug Abuse Patient Records regulations: The Federal rules restrict any use of the information to criminally investigate or prosecute any alcohol or drug abuse patient.[facility] HospitalIn the event this information is protected by the Federal Confidentiality of Alcohol and Drug Abuse Patient Records regulations: The Federal rules restrict any use of the information to criminally investigate or prosecute any alcohol or drug abuse patient.[facility] HospitalIn the event this information is protected by the Federal Confidentiality of Alcohol and Drug Abuse Patient Records regulations: The Federal rules restrict any use of the information to criminally investigate or prosecute any alcohol or drug abuse patient.[facility] HospitalIn the event this information is protected by the Federal Confidentiality of Alcohol and Drug Abuse Patient Records regulations: The Federal rules restrict any use of the information to criminally investigate or prosecute any alcohol or drug abuse patient.[facility] HospitalIn the event this information is protected by the Federal Confidentiality of Alcohol and Drug Abuse Patient Records regulations: The Federal rules restrict any use of the information to criminally investigate or prosecute any alcohol or drug abuse patient.[facility] HospitalIn the event this information is protected by the Federal Confidentiality of Alcohol and Drug Abuse Patient Records regulations: The Federal rules restrict any use of the information to criminally investigate or prosecute any alcohol or drug abuse patient.[facility] HospitalIn the event this information is protected by the Federal Confidentiality of Alcohol and Drug Abuse Patient Records regulations: The Federal rules restrict any use of the information to criminally investigate or prosecute any alcohol or drug abuse patient.[facility] HospitalIn the event this information is protected by the Federal Confidentiality of Alcohol and Drug Abuse Patient Records regulations: The Federal rules restrict any use of the information to criminally investigate or prosecute any alcohol or drug abuse patient.[facility] HospitalIn the event this information is protected by the Federal Confidentiality of Alcohol and Drug Abuse Patient Records regulations: The Federal rules restrict any use of the information to criminally investigate or prosecute any alcohol or drug abuse patient.[facility] HospitalIn the event this information is protected by the Federal Confidentiality of Alcohol and Drug Abuse Patient Records regulations: The Federal rules restrict any use of the information to criminally investigate or prosecute any alcohol or drug abuse patient.[facility] HospitalIn the event this information is protected by the Federal Confidentiality of Alcohol and Drug Abuse Patient Records regulations: The Federal rules restrict any use of the information to criminally investigate or prosecute any alcohol or drug abuse patient.[facility] HospitalIn the event this information is protected by the Federal Confidentiality of Alcohol and Drug Abuse Patient Records regulations: The Federal rules restrict any use of the information to criminally investigate or prosecute any alcohol or drug abuse patient.[facility] HospitalIn the event this information is protected by the Federal Confidentiality of Alcohol and Drug Abuse Patient Records regulations: The Federal rules restrict any use of the information to criminally investigate or prosecute any alcohol or drug abuse patient.[facility] HospitalIn the event this information is protected by the Federal Confidentiality of Alcohol and Drug Abuse Patient Records regulations: The Federal rules restrict any use of the information to criminally investigate or prosecute any alcohol or drug abuse patient.[facility] HospitalIn the event this information is protected by the Federal Confidentiality of Alcohol and Drug Abuse Patient Records regulations: The Federal rules restrict any use of the information to criminally investigate or prosecute any alcohol or drug abuse patient.[facility] HospitalIn the event this information is protected by the Federal Confidentiality of Alcohol and Drug Abuse Patient Records regulations: The Federal rules restrict any use of the information to criminally investigate or prosecute any alcohol or drug abuse patient.[facility] HospitalIn the event this information is protected by the Federal Confidentiality of Alcohol and Drug Abuse Patient Records regulations: The Federal rules restrict any use of the information to criminally investigate or prosecute any alcohol or drug abuse patient.[facility] HospitalIn the event this information is protected by the Federal Confidentiality of Alcohol and Drug Abuse Patient Records regulations: The Federal rules restrict any use of the information to criminally investigate or prosecute any alcohol or drug abuse patient.[facility] HospitalIn the event this information is protected by the Federal Confidentiality of Alcohol and Drug Abuse Patient Records regulations: The Federal rules restrict any use of the information to criminally investigate or prosecute any alcohol or drug abuse patient.[facility] HospitalIn the event this information is protected by the Federal Confidentiality of Alcohol and Drug Abuse Patient Records regulations: The Federal rules restrict any use of the information to criminally investigate or prosecute any alcohol or drug abuse patient.[facility] HospitalIn the event this information is protected by the Federal Confidentiality of Alcohol and Drug Abuse Patient Records regulations: The Federal rules restrict any use of the information to criminally investigate or prosecute any alcohol or drug abuse patient.[facility] HospitalIn the event this information is protected by the Federal Confidentiality of Alcohol and Drug Abuse Patient Records regulations: The Federal rules restrict any use of the information to criminally investigate or prosecute any alcohol or drug abuse patient.[facility] HospitalIn the event this information is protected by the Federal Confidentiality of Alcohol and Drug Abuse Patient Records regulations: The Federal rules restrict any use of the information to criminally investigate or prosecute any alcohol or drug abuse patient.[facility] HospitalIn the event this information is protected by the Federal Confidentiality of Alcohol and Drug Abuse Patient Records regulations: The Federal rules restrict any use of the information to criminally investigate or prosecute any alcohol or drug abuse patient.[facility] HospitalIn the event this information is protected by the Federal Confidentiality of Alcohol and Drug Abuse Patient Records regulations: The Federal rules restrict any use of the information to criminally investigate or prosecute any alcohol or drug abuse patient.[facility] HospitalIn the event this information is protected by the Federal Confidentiality of Alcohol and Drug Abuse Patient Records regulations: The Federal rules restrict any use of the information to criminally investigate or prosecute any alcohol or drug abuse patient.[facility] HospitalIn the event this information is protected by the Federal Confidentiality of Alcohol and Drug Abuse Patient Records regulations: The Federal rules restrict any use of the information to criminally investigate or prosecute any alcohol or drug abuse patient.[facility] HospitalIn the event this information is protected by the Federal Confidentiality of Alcohol and Drug Abuse Patient Records regulations: The Federal rules restrict any use of the information to criminally investigate or prosecute any alcohol or drug abuse patient.[facility] HospitalIn the event this information is protected by the Federal Confidentiality of Alcohol and Drug Abuse Patient Records regulations: The Federal rules restrict any use of the information to criminally investigate or prosecute any alcohol or drug abuse patient.[facility] HospitalIn the event this information is protected by the Federal Confidentiality of Alcohol and Drug Abuse Patient Records regulations: The Federal rules restrict any use of the information to criminally investigate or prosecute any alcohol or drug abuse patient.[facility] HospitalIn the event this information is protected by the Federal Confidentiality of Alcohol and Drug Abuse Patient Records regulations: The Federal rules restrict any use of the information to criminally investigate or prosecute any alcohol or drug abuse patient.[facility] HospitalIn the event this information is protected by the Federal Confidentiality of Alcohol and Drug Abuse Patient Records regulations: The Federal rules restrict any use of the information to criminally investigate or prosecute any alcohol or drug abuse patient.[facility] HospitalIn the event this information is protected by the Federal Confidentiality of Alcohol and Drug Abuse Patient Records regulations: The Federal rules restrict any use of the information to criminally investigate or prosecute any alcohol or drug abuse patient.[facility] HospitalIn the event this information is protected by the Federal Confidentiality of Alcohol and Drug Abuse Patient Records regulations: The Federal rules restrict any use of the information to criminally investigate or prosecute any alcohol or drug abuse patient.[facility] HospitalIn the event this information is protected by the Federal Confidentiality of Alcohol and Drug Abuse Patient Records regulations: The Federal rules restrict any use of the information to criminally investigate or prosecute any alcohol or drug abuse patient.[facility] HospitalIn the event this information is protected by the Federal Confidentiality of Alcohol and Drug Abuse Patient Records regulations: The Federal rules restrict any use of the information to criminally investigate or prosecute any alcohol or drug abuse patient.[facility] HospitalIn the event this information is protected by the Federal Confidentiality of Alcohol and Drug Abuse Patient Records regulations: The Federal rules restrict any use of the information to criminally investigate or prosecute any alcohol or drug abuse patient.[facility] HospitalIn the event this information is protected by the Federal Confidentiality of Alcohol and Drug Abuse Patient Records regulations: The Federal rules restrict any use of the information to criminally investigate or prosecute any alcohol or drug abuse patient.[facility] HospitalIn the event this information is protected by the Federal Confidentiality of Alcohol and Drug Abuse Patient Records regulations: The Federal rules restrict any use of the information to criminally investigate or prosecute any alcohol or drug abuse patient.[facility] HospitalIn the event this information is protected by the Federal Confidentiality of Alcohol and Drug Abuse Patient Records regulations: The Federal rules restrict any use of the information to criminally investigate or prosecute any alcohol or drug abuse patient.[facility] HospitalIn the event this information is protected by the Federal Confidentiality of Alcohol and Drug Abuse Patient Records regulations: The Federal rules restrict any use of the information to criminally investigate or prosecute any alcohol or drug abuse patient.[facility] HospitalIn the event this information is protected by the Federal Confidentiality of Alcohol and Drug Abuse Patient Records regulations: The Federal rules restrict any use of the information to criminally investigate or prosecute any alcohol or drug abuse patient.[facility] HospitalIn the event this information is protected by the Federal Confidentiality of Alcohol and Drug Abuse Patient Records regulations: The Federal rules restrict any use of the information to criminally investigate or prosecute any alcohol or drug abuse patient.[facility] HospitalIn the event this information is protected by the Federal Confidentiality of Alcohol and Drug Abuse Patient Records regulations: The Federal rules restrict any use of the information to criminally investigate or prosecute any alcohol or drug abuse patient.[facility] HospitalIn the event this information is protected by the Federal Confidentiality of Alcohol and Drug Abuse Patient Records regulations: The Federal rules restrict any use of the information to criminally investigate or prosecute any alcohol or drug abuse patient.[facility] HospitalIn the event this information is protected by the Federal Confidentiality of Alcohol and Drug Abuse Patient Records regulations: The Federal rules restrict any use of the information to criminally investigate or prosecute any alcohol or drug abuse patient.[facility] Reason for Visit (unrecogniz ed section and content) Reason Comments Refill Request Reason Comments Electronic Communication Reason Onset Date Comments Refill Request 08/30/2021 Reason Onset Date Comments Refill Request 09/26/2021 Reason Onset Date Comments ER F/U 10/17/2021 Reason Comments staple removal, 9 lauri Reason Onset Date Comments Refill Request 10/30/2021 Reason Onset Date Comments Refill Request 11/01/2021 Reason Comments Hypertension 6 month follow up Reason Comments Forms [facility] Verbal Order for prison 11/30/21 Reason Comments Results Reason Onset Date Comments Refill Request 01/04/2022 Reason Comments Electronic Communication Forms Reason Comments Appointment Reason Comments Pressure sore Reason Comments Results Consult Reason Comments 1 week follow up Reason Comments SOB Reason Onset Date Comments Refill Request 02/28/2022 Reason Onset Date Comments Refill Request 03/05/2022 Reason Comments Forms [facility] Prescr iption - Detailed Written Order Reason Comments Patient Question Reason Comments Electronic Communication Orders Reason Comments CARD New Patient Consult [place] 03/2020EKG 02/08/22ECHO 02/20/22Intermittent chest pressure at night - relieved within 2 mins after taking Nitro. Reason Comments Reminder Call Reason Comments Follow Up Stress test resultsD OE Reason Comments Procedure [facility] Reason Comments Patient Question [facility] Reason Comments Follow Up F/U - attempt made. No answer. Reason Comments Verbal orders Specialty Diagnoses / Procedures Referred By Contac t Referred To Contact CT IMAGING Diagnoses SOB (shortness of breath) on exertion History of recent hospitalization Positive D dimer Procedures CT CHEST W IVCON PE DIAGNOSTIC COMPUTED TOMOGRAPHY THORAX W/CONTRAST Alma Gill, TECHNICAL APPLICATIONS SCIENTIST.TAG MACHINE OPERATOR [address] [place] [address] Ct Imaging Referral ID Status Reason Start Date Expiration Date V isits Requested Visits Authorized [id number] Closed Auto-Generate d Referral 05/13/2022 05/12/2023 1 1 Reason Comments Hospital F/U Reason Onset Date Comments Refill Request 09/03/2022 Reason Comments Patient Update Reason Comments Med Change Request Reason Comments 4 week f/u Reason Comments Immunizations Reason Onset Date Comments Refill Request 11/12/2022 Reason Comments Spirometry Specialty Diagnoses / Procedures Referred By Contac t Referred To Contact [facility] Diagnoses Dyspnea, unspecified type Procedures SPIROMETRY WITH DILATOR IF OBSTRUCTED BRNCDILAT RSPSE SPMTRY PRE&POST-BRNCDILAT ADMN Francisco Patel MD [address] [place] [address] [facility] [place] [address] [place] [address] Referral ID Status Reason Start Date Expiration Date V isits Requested Visits Authorized [id number] Closed Auto-Generate d Referral 09/17/2022 10/17/2023 1 1 Reason Comments New Patient LINDA Reason Comments Results Specialty Diagnoses / [facility] Diagnoses Lung nodules Procedures CT CHEST WO IVCON DIAGNOSTIC COMPUTED TOMOGRAPHY THORAX W/O CNTRST Francisco Patel MD [address] [place] [address] Ct Imaging Referral ID Status Reason Start Date Expiration Date V isits Requested Visits Authorized [id number] Closed Auto-Generate d Referral 12/10/2022 12/20/2023 1 1 Reason Onset Date Comments Refill Request 12/15/2022 Reason Comments Forms Reason Onset Date Comments Refill Request 01/14/2023 Reason Comments Nodule 2 month follow-up destiny ng nodules Reason Onset Date Comments Refill Request 12/12/2022 Reason Comments Established Patient 6 week follow up OVERNIGHT ASSOCIATE D Reason Comments Orders Reason Onset Date Comments Refill Request 04/15/2023 Reason Comments Established Patient 6 week follow up Reason Comments Rectal Problem Had blood in stool- Last colonoscopy 2006 Reason Onset Date Comments Refill Request 04/26/2023 Reason Onset Date Comments Refill Request 06/19/2023 Reason Onset Date Comments Refill Request 07/18/2023 Reason Comments Follow Up Reason Onset Date Comments Refill Request 07/25/2023 Reason Onset Date Comments Refill Request 08/05/2023 Reason Onset Date Comments Refill Request 08/18/2023 Reason Comments Established Patient 6 MONTH FOLLOW UP Reason Comments Orders EPIC down so could n ot put in orders Reason Comments Follow up SOB Reason Comments New Patient Reason Onset Date Comments Refill Request 09/19/2023 Reason Comments Established Patient Reason Comments New Patient Peripheral Vascular Disease (PVD) Reason Onset Date Comments Refill Request 11/21/2023 Reason Onset Date Comments Refill Request 12/20/2023 Reason Comments Verbal Order Reason Onset Date Comments Transition Of Care 01/17/2024 [facility] 01/10-01/16/24 TCM Reason Comments Orders [facility] orders Reason Onset Date Comments Transition Of Care 01/21/2024 TCM follow up call Reason Comments Patient Update VERBAL ORDERS Reason Comments HOME PT Reason Comments Follow Up Reason Onset Date Comments Transition Of Care 02/04/2024 TCM follow up call Reason Comments Medication Problem Reason Onset Date Comments Refill Request 02/05/2024 Reason Onset Date Comments Transition Of Care 02/18/2024 TCM f/u Reason Comments Verbal orders Update in home PT pl an of care Reason Onset Date Comments Refill Request 02/25/2024 Reason Comments Established Patient Follow Up Skin Check nail care Specialty Diagnoses / Procedures Referred By Contac t Referred To Contact CT IMAGING Diagnoses Interstitial pulmonary disease (HCC) Procedures CT CHEST WO IVCON DIAGNOSTIC COMPUTED TOMOGRAPHY THORAX W/O CNTRST Lilian Rodríguez PA-C [address] [place] [address] Ct Imaging [facility] Referral ID Status Reason Start Date Expiration Date V isits Requested Visits Authorized [id number] Closed Auto-Generate d Referral 03/09/2024 02/27/2025 1 1 Reason Onset Date Comments Refill Request 03/09/2024 Specialty Diagnoses / Procedures Referred By Contac t Referred To Contact [facility] Diagnoses ILD (interstitial lung disease) (HCC) Procedures LUNG DIFFUSION CAPACITY (DLCO) DIFFUSING CAPACITY Francisco Patel MD [address] [place] [address] [facility] [place] [address] [facility] [place] [address] Referral ID Status Reason Start Date Expiration Date V isits Requested Visits Authorized [id number] Closed Auto-Generate d Referral 09/09/2023 10/08/2024 1 1 Specialty Diagnoses / Procedures Referred By Contac t Referred To Contact [facility] [place] Diagnoses ILD (interstitial lung disease) ([facility]) Procedures LUNG VOLUMES Francisco Patel MD [address] [place] [address] [facility] [place] [address] [place] [id number] Referral ID Status Reason Start Date Expiration Date V isits Requested Visits Authorized [id number] Closed Auto-Generate d Referral 09/09/2023 10/08/2024 1 1 Specialty Diagnoses / Procedures Referred By Contac t Referred To Contact [facility] [place] Diagnoses Interstitial pulmonary disease (HCC) Procedures OXIMETRY WITH AMBULATION NONINVASIVE EAR/PULSE OXIMETRY Lilian Wayne PA-C [address] [facility] [place] [address] [address] Referral ID Status Reason Start Date Expiration Date V isits Requested Visits Authorized [id number] Closed Auto-Generate d Referral 01/29/2024 02/27/2025 1 1 Reason Comments Nodule COPD Follow Up Reason Comments Electronic Communication Orders Order: [id number] Reason Onset Date Comments Transition Of Care 03/20/2024 TCM follow up call Reason Onset Date Comments Refill Request 03/21/2024 Reason Comments COPD 2 week follow up Reason Onset Date Comments Refill Request 03/30/2024 Reason Onset Date Comments Transition Of Care 04/01/2024 TCM follow up call Reason Comments Insurance Authorization OFEV Reason Comments FOLLOW UP Reason Comments Patient Update Extend PT orders Reason Comments Electronic Communication ORDER: [id number] Forms Reason Onset Date Comments Transition Of Care 04/16/2024 TCM follow up call Reason Onset Date Comments Refill Request 04/19/2024 Reason Comments Establish Care Pt here with COPD an d ILD. Cough Pt here c/o producti ve cough x 1 week. Specialty Diagnoses / Procedures Referred By Contac t Referred To Contact Pulmonary and Critical Care Medicine / PULMONARY MEDICINE Diagnoses ILD Procedures [facility] Mitchell Soto, TECHNICAL APPLICATIONS SCIENTIST.TAG MACHINE OPERATOR [address] [facility] [address] [place] [address] Tru Simon MD [address] [place] [address] [place] [address] Referral ID Status Reason Start Date Expiration Date V isits Requested Visits Authorized [id number] New Request 04/22/2024 07/21/2024 1 1 Reason Onset Date Comments Refill Request 04/25/2024 Reason Comments Medication Authorization Specialty Diagnoses / Procedures Referred By Contac t Referred To Contact [facility] Diagnoses Chronic respiratory failure with hypoxia (HCC) Procedures SPIROMETRY BASELINE ONLY SPMTRY W/VC EXPIRATORY ANGELA W/WO MXML VOL VNTJ Tru Simon MD [address] [place] [address] [place] [address] [address] [address] Referral ID Status Reason Start Date Expiration Date V isits Requested Visits Authorized [id number] Closed Auto-Generate d Referral 04/22/2024 05/22/2025 1 1 Specialty Diagnoses / Procedures Referred By Contac t Referred To Contact [facility] Diagnoses Chronic respiratory failure with hypoxia (HCC) 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 Reason Onset Date Comments Refill Request 06/19/2024 Reason Onset Date Comments Refill Request 06/22/2024 Reason Comments Follow Up Combined Pulmonary F ibrosis and Emphysema Reason Comments F/U 3 Month Cough Started: Couple aylin hsSymptoms: productive cough Reason Onset Date Comments Refill Request 07/20/2024 Reason Comments Oxygen Reason Comments Home Health Form [facility] Reason Onset Date Comments Refill Request 08/10/2024 Reason Onset Date Comments Results 08/20/2024 Reason Comments Established Patient Follow Up Nail care Reason Comments Critical Results Reason Comments Med Change Request Reason Comments VERBAL ORDERS Reason Comments New Pain Swelling Reason Comments Reason Onset Date Comments Transition Of Care 10/19/2024 CC Walter D/C 10/16/24 Reason Comments Established Patient Denies pain Reason Onset Date Comments Results 08/26/2024 Reason Comments Question calling to see if cast can be taken of by [facility] Reason Onset Date Comments Refill Request 10/26/2024 Reason Comments Inspector Aide - Other Specialty Diagnoses / Procedures Referred By [facility] Referred To Contact [facility] Diagnoses Hypersensitivity pneumonitis (HCC) Chronic respiratory failure with hypoxia (HCC) 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) Acute hypoxic respiratory failure (HCC) Chronic obstructive pulmonary disease with acute exacerbation (HCC) Procedures LUNG DIFFUSION CAPACITY (DLCO) DIFFUSING CAPACITY Tru Simon MD [address] [address] Phone: tel: fax: [facility] [place] [phone] Referral ID Status Reason Start Date Expiration Date V isits Requested Visits Authorized [id number] Closed Auto-Generate d Referral 06/24/2024 07/24/2025 1 1 Specialty Diagnoses / Procedures Referred By [facility] Referred To Contact [facility] [place] Diagnoses Hypersensitivity pneumonitis (HCC) Chronic respiratory failure with hypoxia (HCC) 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) Acute hypoxic respiratory failure (HCC) Chronic obstructive pulmonary disease with acute exacerbation (HCC) Procedures SPIROMETRY BASELINE ONLY SPMTRY W/VC EXPIRATORY ANGELA W/WO MXML VOL VNTJ Tru Simon MD [address] [place] [address] [place] [address] Phone: tel: fax: [place] [address] Referral ID Status Reason Start Date Expiration Date V isits Requested Visits Authorized [id number] Closed Auto-Generate d Referral 06/24/2024 07/24/2025 1 1 Reason Comments COPD Reason Onset Date Comments Results 09/21/2024 Reason Onset Date Comments Transition Of Care 11/23/2024 TCM f/u Reason Comments Consult Care Teams (unrecognized sec tion and content) Letter Carrier Relationship Specialty Start Date End Date Alma Gill, TECHNICAL APPLICATIONS SCIENTIST.TAG MACHINE OPERATOR [address] [facility] [place] [address] PCP - General Family Practice 08/15/21 Letter Carrier Relationship Specialty Start Date End Date Alma Gill, TECHNICAL APPLICATIONS SCIENTIST.TAG MACHINE OPERATOR [address] [facility] [place] [address] PCP - General Family Practice 08/15/21 Letter Carrier Relationship Specialty Start Date End Date Alma Gill, TECHNICAL APPLICATIONS SCIENTIST.TAG MACHINE OPERATOR [address] [facility] [place] [address] PCP - General Family Practice 08/15/21 Letter Carrier Relationship Specialty Start Date End Date Alma Gill, TECHNICAL APPLICATIONS SCIENTIST.TAG MACHINE OPERATOR [address] [facility] [place] [address] PCP - General Family Practice 08/15/21 Letter Carrier Relationship Specialty Start Date End Date Alma Gill, TECHNICAL APPLICATIONS SCIENTIST.TAG MACHINE OPERATOR [address] [facility] [place] [address] PCP - General Family Practice 08/15/21 Letter Carrier Relationship Specialty Start Date End Date Alma Gill, TECHNICAL APPLICATIONS SCIENTIST.TAG MACHINE OPERATOR [address] [facility] [place] [address] PCP - General Family Practice 08/15/21 Letter Carrier Relationship Specialty Start Date End Date Alma Gill, TECHNICAL APPLICATIONS SCIENTIST.TAG MACHINE OPERATOR [address] [facility] [place] [address] PCP - General Family Practice 08/15/21 Letter Carrier Relationship Specialty Start Date End Date Alma Gill, TECHNICAL APPLICATIONS SCIENTIST.TAG MACHINE OPERATOR [address] [facility] [place] [address] PCP - General Family Practice 08/15/21 Letter Carrier Relationship Specialty Start Date End Date Alma Gill, TECHNICAL APPLICATIONS SCIENTIST.TAG MACHINE OPERATOR [address] [facility] [place] [address] PCP - General Family Practice 08/15/21 Letter Carrier Relationship Specialty Start Date End Date Alma Gill, TECHNICAL APPLICATIONS SCIENTIST.TAG MACHINE OPERATOR [address] [facility] [place] [address] PCP - General Family Practice 08/15/21 Letter Carrier Relationship Specialty Start Date End Date Alma Gill, TECHNICAL APPLICATIONS SCIENTIST.TAG MACHINE OPERATOR [address] [facility] [place] [address] PCP - General Family Practice 08/15/21 Letter Carrier Relationship Specialty Start Date End Date Alma Gill, TECHNICAL APPLICATIONS SCIENTIST.TAG MACHINE OPERATOR [address] [facility] [place] [address] PCP - General Family Practice 08/15/21 Letter Carrier Relationship Specialty Start Date End Date Alma Gill, TECHNICAL APPLICATIONS SCIENTIST.TAG MACHINE OPERATOR [address] [facility] [place] [address] PCP - General Family Practice 08/15/21 Letter Carrier Relationship Specialty Start Date End Date Alma Gill, TECHNICAL APPLICATIONS SCIENTIST.TAG MACHINE OPERATOR [address] [facility] [place] [address] PCP - General Family Practice 08/15/21 Letter Carrier Relationship Specialty Start Date End Date Alma Gill, TECHNICAL APPLICATIONS SCIENTIST.TAG MACHINE OPERATOR [address] [facility] [place] [address] PCP - General Family Medicine 08/15/21 Letter Carrier Relationship Specialty Start Date End Date Alma Gill, TECHNICAL APPLICATIONS SCIENTIST.TAG MACHINE OPERATOR [address] [facility] [place] [address] PCP - General Family Medicine 08/15/21 Letter Carrier Relationship Specialty Start Date End Date Alma Gill, TECHNICAL APPLICATIONS SCIENTIST.TAG MACHINE OPERATOR [address] [facility] [place] [address] PCP - General Family Medicine 08/15/21 Letter Carrier Relationship Specialty Start Date End Date Alma Gill, TECHNICAL APPLICATIONS SCIENTIST.TAG MACHINE OPERATOR [address] [facility] [place] [address] PCP - General Family Medicine 08/15/21 Letter Carrier Relationship Specialty Start Date End Date Amla Gill, TECHNICAL APPLICATIONS SCIENTIST.TAG MACHINE OPERATOR [address] [facility] [place] [address] PCP - General Family Medicine 08/15/21 Letter Carrier Relationship Specialty Start Date End Date Alma Gill, TECHNICAL APPLICATIONS SCIENTIST.TAG MACHINE OPERATOR [address] [facility] [place] [address] PCP - General Family Medicine 08/15/21 Letter Carrier Relationship Specialty Start Date End Date Alma Gill, TECHNICAL APPLICATIONS SCIENTIST.TAG MACHINE OPERATOR [address] [facility] [place] [address] PCP - General Family Medicine 08/15/21 Letter Carrier Relationship Specialty Start Date End Date Alma Gill, TECHNICAL APPLICATIONS SCIENTIST.TAG MACHINE OPERATOR [address] [facility] [place] [address] PCP - General Family Medicine 08/15/21 Letter Carrier Relationship Specialty Start Date End Date Alma Gill, TECHNICAL APPLICATIONS SCIENTIST.TAG MACHINE OPERATOR [address] [facility] [place] [address] PCP - General Family Medicine 08/15/21 Letter Carrier Relationship Specialty Start Date End Date Alma Gill, TECHNICAL APPLICATIONS SCIENTIST.TAG MACHINE OPERATOR [address] [facility] [place] [address] PCP - General Family Medicine 08/15/21 Letter Carrier Relationship Specialty Start Date End Date Alma Gill, TECHNICAL APPLICATIONS SCIENTIST.TAG MACHINE OPERATOR [address] [facility] [place] [address] PCP - General Family Medicine 08/15/21 Letter Carrier Relationship Specialty Start Date End Date Alma Gill, TECHNICAL APPLICATIONS SCIENTIST.TAG MACHINE OPERATOR [address] [facility] [place] [address] PCP - General Family Medicine 08/15/21 Letter Carrier Relationship Specialty Start Date End Date Alma Gill, TECHNICAL APPLICATIONS SCIENTIST.TAG MACHINE OPERATOR [address] [place] [place] [address] PCP - General Family Medicine 08/15/21 Letter Carrier Relationship Specialty Start Date End Date Alma Gill, TECHNICAL APPLICATIONS SCIENTIST.TAG MACHINE OPERATOR [address] [place] [place] [address] PCP - General Family Medicine 08/15/21 Letter Carrier Relationship Specialty Start Date End Date Alma Gill, TECHNICAL APPLICATIONS SCIENTIST.TAG MACHINE OPERATOR [address] [place] [place] [address] PCP - General Family Medicine 08/15/21 Letter Carrier Relationship Specialty Start Date End Date Alma Gill, TECHNICAL APPLICATIONS SCIENTIST.TAG MACHINE OPERATOR [address] [place] [place] [address] PCP - General Family Medicine 08/15/21 Letter Carrier Relationship Specialty Start Date End Date Alma Gill, TECHNICAL APPLICATIONS SCIENTIST.TAG MACHINE OPERATOR [address] [facility] [place] [address] PCP - General Family Medicine 08/15/21 Dedrick Krause, [facility] E [facility] [place] [address] Cardiology 06/04/22 Letter Carrier Relationship Specialty Start Date End Date Alma Gill, TECHNICAL APPLICATIONS SCIENTIST.TAG MACHINE OPERATOR [address] [facility] [place] [address] PCP - General Family Medicine 08/15/21 Dedrick Krause, [address] [place] [address] Cardiology 06/04/22 Letter Carrier Relationship Specialty Start Date End Date Alma Gill, TECHNICAL APPLICATIONS SCIENTIST.TAG MACHINE OPERATOR [address] [place] [address] PCP - General Family Medicine 08/15/21 Dedrick Krause [facility] [place] [address] Cardiology 06/04/22 Letter Carrier Relationship Specialty Start Date End Date Alma Gill, TECHNICAL APPLICATIONS SCIENTIST.TAG MACHINE OPERATOR [address] [place] [address] PCP - General Family Medicine 08/15/21 Dedrick Krause [facility] [place] [address] Cardiology 06/04/22 Letter Carrier Relationship Specialty Start Date End Date Alma Gill, TECHNICAL APPLICATIONS SCIENTIST.TAG MACHINE OPERATOR [address] [place] [address] PCP - General Family Medicine 08/15/21 Dedrick Krause [facility] [place] [address] Cardiology 06/04/22 Letter Carrier Relationship Specialty Start Date End Date Alma Gill, TECHNICAL APPLICATIONS SCIENTIST.TAG MACHINE OPERATOR [address] [place] [address] PCP - General Family Medicine 08/15/21 Dedrick Krause [facility] [place] [address] Cardiology 06/04/22 Letter Carrier Relationship Specialty Start Date End Date Alma Gill, TECHNICAL APPLICATIONS SCIENTIST.TAG MACHINE OPERATOR [address] [facility] [place] [address] PCP - General Family Medicine 08/15/21 Dedrick Krause, [facility] [address] [facility] [place] [address] Cardiology 06/04/22 Letter Carrier Relationship Specialty Start Date End Date Alma Gill, TECHNICAL APPLICATIONS SCIENTIST.TAG MACHINE OPERATOR [address] [facility] [place] [address] PCP - General Family Medicine 08/15/21 Dedrick Krause, [facility] [place] [address] Cardiology 06/04/22 Letter Carrier Relationship Specialty Start Date End Date Alma Gill, TECHNICAL APPLICATIONS SCIENTIST.TAG MACHINE OPERATOR [address] [facility] [place] [address] PCP - General Family Medicine 08/15/21 Dedrick Krause, [facility] [place] [address] Cardiology 06/04/22 Letter Carrier Relationship Specialty Start Date End Date Alma Gill, TECHNICAL APPLICATIONS SCIENTIST.TAG MACHINE OPERATOR [address] [facility] [place] [address] PCP - General Family Medicine 08/15/21 Dedrick Krause, [address] [place] [address] Cardiology 06/04/22 Letter Carrier Relationship Specialty Start Date End Date Alma Gill, TECHNICAL APPLICATIONS SCIENTIST.TAG MACHINE OPERATOR [address] [facility] [place] [address] PCP - General Family Medicine 08/15/21 Dedrick Krause, [facility] [place] [address] Cardiology 06/04/22 Letter Carrier Relationship Specialty Start Date End Date Alma Gill, TECHNICAL APPLICATIONS SCIENTIST.TAG MACHINE OPERATOR [address] [place] [address] PCP - General Family Medicine 08/15/21 Dedrick Krause, [facility] [place] [address] Cardiology 06/04/22 Letter Carrier Relationship Specialty Start Date End Date Alma Gill, TECHNICAL APPLICATIONS SCIENTIST.TAG MACHINE OPERATOR [address] [place] [address] PCP - General Family Medicine 08/15/21 Dedrick Krause [facility] [place] [address] Cardiology 06/04/22 Letter Carrier Relationship Specialty Start Date End Date Alma Gill, TECHNICAL APPLICATIONS SCIENTIST.TAG MACHINE OPERATOR [address] [place] [address] PCP - General Family Medicine 08/15/21 [place] [address] [place] [address] Cardiology 06/04/22 Letter Carrier Relationship Specialty Start Date End Date Alma Gill, TECHNICAL APPLICATIONS SCIENTIST.TAG MACHINE OPERATOR [address] [facility] [place] [address] PCP - General Family Medicine 08/15/21 [place] [address] [place] [address] Cardiology 06/04/22 Letter Carrier Relationship Specialty Start Date End Date Alma Gill, TECHNICAL APPLICATIONS SCIENTIST.TAG MACHINE OPERATOR [address] [place] [address] PCP - General Family Medicine 08/15/21 Dedrick Krause, [facility] [place] [address] Cardiology 06/04/22 Letter Carrier Relationship Specialty Start Date End Date Alma Gill, TECHNICAL APPLICATIONS SCIENTIST.TAG MACHINE OPERATOR [address] [place] [address] PCP - General Family Medicine 08/15/21 Dedrick Krause [facility] [place] [address] Cardiology 06/04/22 Letter Carrier Relationship Specialty Start Date End Date Alma Gill, TECHNICAL APPLICATIONS SCIENTIST.TAG MACHINE OPERATOR [address] [place] [address] PCP - General Family Medicine 08/15/21 Dedrick Krause [facility] [place] [address] Cardiology 06/04/22 Letter Carrier Relationship Specialty Start Date End Date Alma Gill, TECHNICAL APPLICATIONS SCIENTIST.TAG MACHINE OPERATOR [address] [place] [address] PCP - General Family Medicine 08/15/21 Dedrick Krause [facility] [place] [address] Cardiology 06/04/22 Letter Carrier Relationship Specialty Start Date End Date Alma Gill, TECHNICAL APPLICATIONS SCIENTIST.TAG MACHINE OPERATOR [address] [place] [address] PCP - General Family Medicine 08/15/21 Dedrick Krause [facility] [place] [address] Cardiology 06/04/22 Letter Carrier Relationship Specialty Start Date End Date Alma Gill, TECHNICAL APPLICATIONS SCIENTIST.TAG MACHINE OPERATOR [address] [facility] [place] [address] PCP - General Family Medicine 08/15/21 JimiDedrick lynch, [facility] [place] [address] Cardiology 06/04/22 Letter Carrier Relationship Specialty Start Date End Date Alma Gill, TECHNICAL APPLICATIONS SCIENTIST.TAG MACHINE OPERATOR [address] [facility] [place] [address] PCP - General Family Medicine 08/15/21 Dedrick Krause, [facility] E [facility] [place] [address] Cardiology 06/04/22 Letter Carrier Relationship Specialty Start Date End Date Alma Gill, TECHNICAL APPLICATIONS SCIENTIST.TAG MACHINE OPERATOR [address] [facility] [place] [address] PCP - General Family Medicine 08/15/21 Dedrick Krause, [facility] [place] [address] Cardiology 06/04/22 Letter Carrier Relationship Specialty Start Date End Date Alma Gill, TECHNICAL APPLICATIONS SCIENTIST.TAG MACHINE OPERATOR [address] [facility] [place] [address] PCP - General Family Medicine 08/15/21 [place] [address] [place] [address] Cardiology 06/04/22 Letter Carrier Relationship Specialty Start Date End Date Alma Gill, TECHNICAL APPLICATIONS SCIENTIST.TAG MACHINE OPERATOR [address] [facility] [place] [address] PCP - General Family Medicine 08/15/21 Dedrick Krause DO [address] [place] [address] Cardiology 06/04/22 Letter Carrier Relationship Specialty Start Date End Date Alma Gill, TECHNICAL APPLICATIONS SCIENTIST.TAG MACHINE OPERATOR [address] [place] [address] PCP - General Family Medicine 08/15/21 Dedrick Krause DO [address] [place] [address] Cardiology 06/04/22 Letter Carrier Relationship Specialty Start Date End Date Alma Gill, TECHNICAL APPLICATIONS SCIENTIST.TAG MACHINE OPERATOR [address] [place] [address] PCP - General Family Medicine 08/15/21 Dedrick Krause DO [address] [place] [address] Cardiology 06/04/22 Letter Carrier Relationship Specialty Start Date End Date Alma Gill TECHNICAL APPLICATIONS SCIENTIST.TAG MACHINE OPERATOR [address] [place] [address] PCP - General Family Medicine 08/15/21 Dedrick Krause DO [address] [place] [address] Cardiology 06/04/22 Letter Carrier Relationship Specialty Start Date End Date Alma Gill, TECHNICAL APPLICATIONS SCIENTIST.TAG MACHINE OPERATOR [address] [place] [address] PCP - General Family Medicine 08/15/21 Dedrick Krause DO [address] [place] [address] Cardiology 06/04/22 Letter Carrier Relationship Specialty Start Date End Date Alma Gill, TECHNICAL APPLICATIONS SCIENTIST.TAG MACHINE OPERATOR [address] [place] [address] PCP - General Family Medicine 08/15/21 Dedrick Krause DO [address] [place] [address] Cardiology 06/04/22 Letter Carrier Relationship Specialty Start Date End Date Alma Gill, TECHNICAL APPLICATIONS SCIENTIST.TAG MACHINE OPERATOR [address] [place] [address] PCP - General Family Medicine 08/15/21 Dedrick Krause DO [address] [place] [address] Cardiology 06/04/22 Letter Carrier Relationship Specialty Start Date End Date Alma Gill, TECHNICAL APPLICATIONS SCIENTIST.TAG MACHINE OPERATOR [address] [place] [address] PCP - General Family Medicine 08/15/21 Dedrick Krause DO [address] [place] [address] Cardiology 06/04/22 Letter Carrier Relationship Specialty Start Date End Date Alma Gill, TECHNICAL APPLICATIONS SCIENTIST.TAG MACHINE OPERATOR [address] [place] [address] PCP - General Family Medicine 08/15/21 Dedrick Krause DO [address] [place] [address] Cardiology 06/04/22 Letter Carrier Relationship Specialty Start Date End Date Alma Gill, TECHNICAL APPLICATIONS SCIENTIST.TAG MACHINE OPERATOR [address] [place] [address] PCP - General Family Medicine 08/15/21 Dedrick Krause DO [address] [place] [address] Cardiology 06/04/22 Letter Carrier Relationship Specialty Start Date End Date Alma Gill, TECHNICAL APPLICATIONS SCIENTIST.TAG MACHINE OPERATOR [address] [place] [address] PCP - General Family Medicine 08/15/21 Dedrick Krause DO [address] [place] [address] Cardiology 06/04/22 Letter Carrier Relationship Specialty Start Date End Date Alma Gill, TECHNICAL APPLICATIONS SCIENTIST.TAG MACHINE OPERATOR [address] [place] [address] PCP - General Family Medicine 08/15/21 Dedrick Krause DO [address] [place] [address] Cardiology 06/04/22 Letter Carrier Relationship Specialty Start Date End Date Alma Gill TECHNICAL APPLICATIONS SCIENTIST.TAG MACHINE OPERATOR [address] [place] [address] PCP - General Family Medicine 08/15/21 Dedrick Krause DO [address] [place] [address] Cardiology 06/04/22 Letter Carrier Relationship Specialty Start Date End Date Alma Gill APRN.TAG MACHINE OPERATOR [address] [place] [address] PCP - General Family Medicine 08/15/21 Dedrick Krause DO [address] [place] [address] Cardiology 06/04/22 Letter Carrier Relationship Specialty Start Date End Date Alma Gill TECHNICAL APPLICATIONS SCIENTIST.TAG MACHINE OPERATOR [address] [place] [address] PCP - General Family Medicine 08/15/21 Dedrick Krause DO [address] [place] [address] Cardiology 06/04/22 Letter Carrier Relationship Specialty Start Date End Date Alma Gill TECHNICAL APPLICATIONS SCIENTIST.TAG MACHINE OPERATOR [address] [place] [address] PCP - General Family Medicine 08/15/21 Dedrick Krause DO [address] [place] [address] Cardiology 06/04/22 Letter Carrier Relationship Specialty Start Date End Date Alma Gill TECHNICAL APPLICATIONS SCIENTIST.TAG MACHINE OPERATOR [address] [place] [address] PCP - General Family Medicine 08/15/21 Dedrick Krause DO [address] [place] [address] Cardiology 06/04/22 Letter Carrier Relationship Specialty Start Date End Date Alma Gill, TECHNICAL APPLICATIONS SCIENTIST.TAG MACHINE OPERATOR [address] [place] [address] PCP - General Family Medicine 08/15/21 Dedrick Krause DO [address] [place] [address] Cardiology 06/04/22 Letter Carrier Relationship Specialty Start Date End Date Alma Gill, TECHNICAL APPLICATIONS SCIENTIST.TAG MACHINE OPERATOR [address] [place] [address] PCP - General Family Medicine 08/15/21 Dedrick Krause DO [address] [place] [address] Cardiology 06/04/22 Letter Carrier Relationship Specialty Start Date End Date Alma Gill, TECHNICAL APPLICATIONS SCIENTIST.TAG MACHINE OPERATOR [address] [place] [address] PCP - General Family Medicine 08/15/21 Dedrick Krause DO [address] [place] [address] Cardiology 06/04/22 Letter Carrier Relationship Specialty Start Date End Date Alma Gill TECHNICAL APPLICATIONS SCIENTIST.TAG MACHINE OPERATOR [address] [place] [address] PCP - General Family Medicine 08/15/21 Dedrick Krause DO [address] [place] [address] Cardiology 06/04/22 Letter Carrier Relationship Specialty Start Date End Date Alma Gill, TECHNICAL APPLICATIONS SCIENTIST.TAG MACHINE OPERATOR [address] [place] [address] PCP - General Family Medicine 08/15/21 Dedrick Krause DO [address] [place] [address] Cardiology 06/04/22 Letter Carrier Relationship Specialty Start Date End Date Alma Gill, TECHNICAL APPLICATIONS SCIENTIST.TAG MACHINE OPERATOR [address] [place] [address] PCP - General Family Medicine 08/15/21 Dedrick Krause DO [address] [place] [address] Cardiology 06/04/22 Letter Carrier Relationship Specialty Start Date End Date Alma Gill, TECHNICAL APPLICATIONS SCIENTIST.TAG MACHINE OPERATOR [address] [place] [address] PCP - General Family Medicine 08/15/21 Dedrick Krause DO [address] [place] [address] Cardiology 06/04/22 Letter Carrier Relationship Specialty Start Date End Date Alma Gill, TECHNICAL APPLICATIONS SCIENTIST.TAG MACHINE OPERATOR [address] [place] [address] PCP - General Family Medicine 08/15/21 Dedrick Krause DO [address] [place] [address] Cardiology 06/04/22 Letter Carrier Relationship Specialty Start Date End Date Alma Gill, TECHNICAL APPLICATIONS SCIENTIST.TAG MACHINE OPERATOR [address] [facility] [place] [address] PCP - General Family Medicine 08/15/21 Dedrick Krause DO [address] [place] [address] Cardiology 06/04/22 Letter Carrier Relationship Specialty Start Date End Date Alma Gill, TECHNICAL APPLICATIONS SCIENTIST.TAG MACHINE OPERATOR [address] [place] [address] PCP - General Family Medicine 08/15/21 Dedrick Krause DO [address] [place] [address] Cardiology 06/04/22 Letter Carrier Relationship Specialty Start Date End Date Alma Gill, TECHNICAL APPLICATIONS SCIENTIST.TAG MACHINE OPERATOR [address] [place], [place] [id number] PCP - General Family Medicine 08/15/21 Dedrick Krause DO [address] [place] [address] Cardiology 06/04/22 Letter Carrier Relationship Specialty Start Date End Date Alma Gill, TECHNICAL APPLICATIONS SCIENTIST.TAG MACHINE OPERATOR [address] [place] [address] PCP - General Family Medicine 08/15/21 Dedrick Krause DO [address] [place] [address] Cardiology 06/04/22 Letter Carrier Relationship Specialty Start Date End Date Alma Gill, TECHNICAL APPLICATIONS SCIENTIST.TAG MACHINE OPERATOR [address] [place] [address] PCP - General Family Medicine 08/15/21 Dedrick Krause DO [facility] [place] [address] Cardiology 06/04/22 Letter Carrier Relationship Specialty Start Date End Date Alma Gill, TECHNICAL APPLICATIONS SCIENTIST.TAG MACHINE OPERATOR [address] [place] [address] PCP - General Family Medicine 08/15/21 Dedrick Krause DO [facility] [place] [address] Cardiology 06/04/22 Letter Carrier Relationship Specialty Start Date End Date Alma Gill, TECHNICAL APPLICATIONS SCIENTIST.TAG MACHINE OPERATOR [address] [place] [address] PCP - General Family Medicine 08/15/21 Dedrick Krause DO [facility] [place] [address] Cardiology 06/04/22 Letter Carrier Relationship Specialty Start Date End Date Alma Gill, TECHNICAL APPLICATIONS SCIENTIST.TAG MACHINE OPERATOR [address] [place] [address] PCP - General Family Medicine 08/15/21 Dedrick Krause DO [address] [place] [address] Cardiology 06/04/22 Letter Carrier Relationship Specialty Start Date End Date Alma Gill, TECHNICAL APPLICATIONS SCIENTIST.TAG MACHINE OPERATOR [address] [facility] [place] [address] PCP - General Family Medicine 08/15/21 Dedrick Krause DO [address] [place] [address] Cardiology 06/04/22 Letter Carrier Relationship Specialty Start Date End Date Alma Gill, TECHNICAL APPLICATIONS SCIENTIST.TAG MACHINE OPERATOR [address] [facility] [place] [address] PCP - General Family Medicine 08/15/21 Dedrick Krause DO [address] [place] [address] Cardiology 06/04/22 Letter Carrier Relationship Specialty Start Date End Date Alma Gill, TECHNICAL APPLICATIONS SCIENTIST.TAG MACHINE OPERATOR [address] [facility] [place] [address] PCP - General Family Medicine 08/15/21 Dedrick Krause DO [address] [place] [address] Cardiology 06/04/22 Letter Carrier Relationship Specialty Start Date End Date Alma Gill TECHNICAL APPLICATIONS SCIENTIST.TAG MACHINE OPERATOR [address] [facility] [place] [address] PCP - General Family Medicine 08/15/21 Dedrick Krause DO [address] [place] [address] Cardiology 06/04/22 Letter Carrier Relationship Specialty Start Date End Date Alma Gill TECHNICAL APPLICATIONS SCIENTIST.TAG MACHINE OPERATOR [address] [place] [address] PCP - General Family Medicine 08/15/21 Dedrick Krause DO [facility] [place] [address] Cardiology 06/04/22 Letter Carrier Relationship Specialty Start Date End Date Alma Gill, TECHNICAL APPLICATIONS SCIENTIST.TAG MACHINE OPERATOR [address] [place] [address] PCP - General Family Medicine 08/15/21 Dedrick Krause DO [facility] [place] [address] Cardiology 06/04/22 Letter Carrier Relationship Specialty Start Date End Date Alma Gill, TECHNICAL APPLICATIONS SCIENTIST.TAG MACHINE OPERATOR [address] [place] [address] PCP - General Family Medicine 08/15/21 Dedrick Krause DO [facility] [place] [address] Cardiology 06/04/22 Letter Carrier Relationship Specialty Start Date End Date Alma Gill APRN.TAG MACHINE OPERATOR [address] [place] [address] PCP - General Family Medicine 08/15/21 Dedrick Krause DO [facility] [place] [address] Cardiology 06/04/22 Letter Carrier Relationship Specialty Start Date End Date Alma Gill TECHNICAL APPLICATIONS SCIENTIST.TAG MACHINE OPERATOR [address] [place] [address] PCP - General Family Medicine 08/15/21 Dedrick Krause DO [facility] [place] [address] Cardiology 06/04/22 Letter Carrier Relationship Specialty Start Date End Date Alma Gill, TECHNICAL APPLICATIONS SCIENTIST.TAG MACHINE OPERATOR [address] [place] [address] PCP - General Family Medicine 08/15/21 Dedrick Krause DO [facility] [place] [address] Cardiology 06/04/22 Letter Carrier Relationship Specialty Start Date End Date Alma Gill, TECHNICAL APPLICATIONS SCIENTIST.TAG MACHINE OPERATOR [address] [place] [address] PCP - General Family Medicine 08/15/21 Dedrick Krause DO [address] [place] [address] Cardiology 06/04/22 Qi Zazueta RN [address] [place], [place] [id number] Primary Care Programming Engineer 01/17/24 Letter Carrier Relationship Specialty Start Date End Date Alma Gill, TECHNICAL APPLICATIONS SCIENTIST.TAG MACHINE OPERATOR [address] [place] [address] PCP - General Family Medicine 08/15/21 Dedrick Krause DO [facility] [place] [address] Cardiology 06/04/22 Qi Zazueta RN [address] [place], [place] [id number] Primary Care Programming Engineer 01/17/24 Letter Carrier Relationship Specialty Start Date End Date Alma Gill, TECHNICAL APPLICATIONS SCIENTIST.TAG MACHINE OPERATOR [address] [place] [address] PCP - General Family Medicine 08/15/21 Dedrick Krause DO [address] [place] [address] Cardiology 06/04/22 Qi Zazueta, RN [address] [place], [place] [id number] Primary Care Programming Engineer 01/17/24 Letter Carrier Relationship Specialty Start Date End Date Alma Gill, TECHNICAL APPLICATIONS SCIENTIST.TAG MACHINE OPERATOR [address] [place] [address] PCP - General Family Medicine 08/15/21 Dedrick Krause DO [address] [place] [address] Cardiology 06/04/22 Qi Zazueta, RN [address] [place], [place] [id number] Primary Care Programming Engineer 01/17/24 Letter Carrier Relationship Specialty Start Date End Date Alma Gill, TECHNICAL APPLICATIONS SCIENTIST.TAG MACHINE OPERATOR [address] [place] [address] PCP - General Family Medicine 08/15/21 Dedrick Krause DO [address] [place] [address] Cardiology 06/04/22 Qi Zazueta, RN [address] [place], [place] [id number] Primary Care Programming Engineer 01/17/24 Letter Carrier Relationship Specialty Start Date End Date Alma Gill, TECHNICAL APPLICATIONS SCIENTIST.TAG MACHINE OPERATOR [address] [place] [address] PCP - General Family Medicine 08/15/21 Dedrick Krause DO [address] [place] [address] Cardiology 06/04/22 Qi Zazueta, RN [address] [place], [place] [id number] Primary Care Programming Engineer 01/17/24 Letter Carrier Relationship Specialty Start Date End Date Alma Gill, TECHNICAL APPLICATIONS SCIENTIST.TAG MACHINE OPERATOR [address] [place] [address] PCP - General Family Medicine 08/15/21 Dedrick Krause DO [facility] [place] [address] Cardiology 06/04/22 Qi Zazueta RN [address] [place], [place] [id number] Primary Care Programming Engineer 01/17/24 Letter Carrier Relationship Specialty Start Date End Date Alma Gill, TECHNICAL APPLICATIONS SCIENTIST.TAG MACHINE OPERATOR [address] [place] [address] PCP - General Family Medicine 08/15/21 Dedrick Krause DO [address] [place] [address] Cardiology 06/04/22 Qi Zazueta RN [address] [place], [place] [id number] Primary Care Programming Engineer 01/17/24 Lilian Sethi RN Primary Care Programming Engineer 02/05/24 02/26/24 Letter Carrier Relationship Specialty Start Date End Date Alma Gill, TECHNICAL APPLICATIONS SCIENTIST.TAG MACHINE OPERATOR [address] [place] [address] PCP - General Family Medicine 08/15/21 Dedrick Krause DO [address] [place] [address] Cardiology 06/04/22 Qi Zazueta, RN [address] [place], [place] [id number] Primary Care Programming Engineer 01/17/24 Lilian Sethi, SERGEY Primary Care Programming Engineer 02/05/24 02/26/24 Letter Carrier Relationship Specialty Start Date End Date Alma Gill, TECHNICAL APPLICATIONS SCIENTIST.TAG MACHINE OPERATOR [address] [place] [address] PCP - General Family Medicine 08/15/21 Dedrick Krause DO [address] [place] [address] Cardiology 06/04/22 Qi Zazueta RN [address] [place], [place] [id number] Primary Care Programming Engineer 01/17/24 Lilian Sethi, SERGEY Primary Care Programming Engineer 02/05/24 02/26/24 Letter Carrier Relationship Specialty Start Date End Date Alma Gill, TECHNICAL APPLICATIONS SCIENTIST.TAG MACHINE OPERATOR [address] [place] [address] PCP - General Family Medicine 08/15/21 Dedrick Krause DO [address] [place] [address] Cardiology 06/04/22 Qi Zazueta RN [address] [place], [place] [id number] Primary Care Programming Engineer 01/17/24 Lilian Sethi, SERGEY Primary Care Programming Engineer 02/05/24 02/26/24 Letter Carrier Relationship Specialty Start Date End Date Alma Gill, TECHNICAL APPLICATIONS SCIENTIST.TAG MACHINE OPERATOR [address] [place] [address] PCP - General Family Medicine 08/15/21 Dedrick Krause DO [facility] [place] [address] Cardiology 06/04/22 Qi Zazueta RN [address] [place] [address] Primary Care Programming Engineer 01/17/24 Lilian Sethi, SERGEY Primary Care Programming Engineer 02/05/24 02/26/24 Letter Carrier Relationship Specialty Start Date End Date Alma Gill, TECHNICAL APPLICATIONS SCIENTIST.TAG MACHINE OPERATOR [address] [place] [address] PCP - General Family Medicine 08/15/21 Dedrick Krause DO [facility] [place] [address] Cardiology 06/04/22 Qi Zazueta RN [address] [place], [place] [id number] Primary Care Programming Engineer 01/17/24 Letter Carrier Relationship Specialty Start Date End Date Alma Gill, TECHNICAL APPLICATIONS SCIENTIST.TAG MACHINE OPERATOR [address] [place] [address] PCP - General Family Medicine 08/15/21 Dedrick Krause DO [address] [place] [address] Cardiology 06/04/22 Qi Zazueta, RN [address] [place], [place] [phone] Primary Care Programming Engineer 01/17/24 Letter Carrier Relationship Specialty Start Date End Date Alma Gill, TECHNICAL APPLICATIONS SCIENTIST.TAG MACHINE OPERATOR [address] [place] [address] PCP - General Family Medicine 08/15/21 Dedrick Krause DO [facility] [place] [address] Cardiology 06/04/22 Qi Zazueta RN [address] [place], [place] [phone] Primary Care Programming Engineer 01/17/24 Letter Carrier Relationship Specialty Start Date End Date Alma Gill, TECHNICAL APPLICATIONS SCIENTIST.TAG MACHINE OPERATOR [address] [place] [address] PCP - General Family Medicine 08/15/21 Dedrick Krause DO [address] [place] [address] Cardiology 06/04/22 Qi Zazueta RN [address] [place], [place] [id number] Primary Care Programming Engineer 01/17/24 Letter Carrier Relationship Specialty Start Date End Date Alma Gill, TECHNICAL APPLICATIONS SCIENTIST.TAG MACHINE OPERATOR [address] [place] [address] PCP - General Family Medicine 08/15/21 Dedrick Krause DO [address] [place] [address] Cardiology 06/04/22 Qi Zazueta RN [address] [place], [place] [phone] Primary Care Programming Engineer 01/17/24 Letter Carrier Relationship Specialty Start Date End Date Alma Gill, TECHNICAL APPLICATIONS SCIENTIST.TAG MACHINE OPERATOR [address] [place] [address] PCP - General Family Medicine 08/15/21 Dedrick Krause DO [address] [place] [address] Cardiology 06/04/22 Qi Zazueta RN [address] [place], [place] [phone] Primary Care Programming Engineer 01/17/24 Letter Carrier Relationship Specialty Start Date End Date Alma Gill, TECHNICAL APPLICATIONS SCIENTIST.TAG MACHINE OPERATOR [address] [place] [address] PCP - General Family Medicine 08/15/21 Dedrick Krause DO [address] [place] [address] Cardiology 06/04/22 Qi Zazueta, RN [address] [place] [address] Primary Care Programming Engineer 01/17/24 Letter Carrier Relationship Specialty Start Date End Date Alma Gill, TECHNICAL APPLICATIONS SCIENTIST.TAG MACHINE OPERATOR [address] [place] [address] PCP - General Family Medicine 08/15/21 Dedrick Krause DO [address] [place] [address] Cardiology 06/04/22 Qi Zazueta, RN [address] [place], [place] [phone] Primary Care Programming Engineer 01/17/24 Letter Carrier Relationship Specialty Start Date End Date Alma Gill, TECHNICAL APPLICATIONS SCIENTIST.TAG MACHINE OPERATOR [address] [facility] [place] [address] PCP - General Family Medicine 08/15/21 Dedrick Krause DO [address] [place] [address] Cardiology 06/04/22 Qi Zazueta RN [address] [place] [address] Primary Care Programming Engineer 01/17/24 04/17/24 Letter Carrier Relationship Specialty Start Date End Date Alma Gill, TECHNICAL APPLICATIONS SCIENTIST.TAG MACHINE OPERATOR [address] [place] [address] PCP - General Family Medicine 08/15/21 Dedrick Krause DO [address] [place] [address] Cardiology 06/04/22 Qi Zazueta RN [address] [place] [address] Primary Care Programming Engineer 01/17/24 04/17/24 Letter Carrier Relationship Specialty Start Date End Date Alma Gill, TECHNICAL APPLICATIONS SCIENTIST.TAG MACHINE OPERATOR [address] [facility] [place] [address] PCP - General Family Medicine 08/15/21 Dedrick Krause DO [address] [place] [address] Cardiology 06/04/22 Qi Zazueta RN [address] [place], [place] [phone] Primary Care Programming Engineer 01/17/24 04/17/24 Letter Carrier Relationship Specialty Start Date End Date Alma Gill, TECHNICAL APPLICATIONS SCIENTIST.TAG MACHINE OPERATOR [address] [place] [address] PCP - General Family Medicine 08/15/21 Dedrick Krause DO [address] [place] [address] Cardiology 06/04/22 Qi Zazueta RN [address] [place], [place] [id number] Primary Care Programming Engineer 01/17/24 04/17/24 Letter Carrier Relationship Specialty Start Date End Date Alma Gill, TECHNICAL APPLICATIONS SCIENTIST.TAG MACHINE OPERATOR [address] [place] [address] PCP - General Family Medicine 08/15/21 Dedrick Krause DO [address] [place] [address] Cardiology 06/04/22 Qi Zazueta RN [address] [place], [place] [id number] Primary Care Programming Engineer 01/17/24 04/17/24 Letter Carrier Relationship Specialty Start Date End Date Alma Gill, TECHNICAL APPLICATIONS SCIENTIST.TAG MACHINE OPERATOR [address] [facility] [place] [address] PCP - General Family Medicine 08/15/21 Dedrick Krause DO [address] [place] [address] Cardiology 06/04/22 Qi Zazueta, RN [address] [place], [place] [phone] Primary Care Programming Engineer 01/17/24 04/17/24 Letter Carrier Relationship Specialty Start Date End Date Alma Gill TECHNICAL APPLICATIONS SCIENTIST.TAG MACHINE OPERATOR [address] [place] [address] PCP - General Family Medicine 08/15/21 Dedrick Krause DO [address] [place] [address] Cardiology 06/04/22 Qi Zazueta, RN [address] [place], [place] [id number] Primary Care Programming Engineer 01/17/24 04/17/24 Letter Carrier Relationship Specialty Start Date End Date Alma Gill TECHNICAL APPLICATIONS SCIENTIST.TAG MACHINE OPERATOR [address] [place] [address] PCP - General Family Medicine 08/15/21 Dedrick Krause DO [address] [place] [address] Cardiology 06/04/22 Qi Zazueta, RN [address] [place] [id number] Primary Care Programming Engineer 01/17/24 04/16/24 Letter Carrier Relationship Specialty Start Date End Date Alma Gill, TECHNICAL APPLICATIONS SCIENTIST.TAG MACHINE OPERATOR [address] [place] [address] PCP - General Family Medicine 08/15/21 Dedrick Krause DO [address] [place] [address] Cardiology 06/04/22 Letter Carrier Relationship Specialty Start Date End Date Alma Gill, TECHNICAL APPLICATIONS SCIENTIST.TAG MACHINE OPERATOR [address] [facility] [place] [address] PCP - General Family Medicine 08/15/21 Dedrick Krause DO [address] [place] [address] Cardiology 06/04/22 Letter Carrier Relationship Specialty Start Date End Date Alma Gill, TECHNICAL APPLICATIONS SCIENTIST.TAG MACHINE OPERATOR [address] [facility] [place] [address] PCP - General Family Medicine 08/15/21 Dedrick Krause DO [address] [place] [address] Cardiology 06/04/22 Letter Carrier Relationship Specialty Start Date End Date Alma Gill, TECHNICAL APPLICATIONS SCIENTIST.TAG MACHINE OPERATOR [address] [place] [address] PCP - General Family Medicine 08/15/21 Dedrick Krause DO [address] [place] [address] Cardiology 06/04/22 Letter Carrier Relationship Specialty Start Date End Date Alma Gill TECHNICAL APPLICATIONS SCIENTIST.TAG MACHINE OPERATOR [address] [place] [address] PCP - General Family Medicine 08/15/21 Dedrick Krause DO [address] [place] [address] Cardiology 06/04/22 Letter Carrier Relationship Specialty Start Date End Date Alma Gill TECHNICAL APPLICATIONS SCIENTIST.TAG MACHINE OPERATOR [address] [place] [address] PCP - General Family Medicine 08/15/21 Dedrick Krause DO [facility] [place] [address] Cardiology 06/04/22 Letter Carrier Relationship Specialty Start Date End Date Alma Gill, TECHNICAL APPLICATIONS SCIENTIST.TAG MACHINE OPERATOR [address] [place] [address] PCP - General Family Medicine 08/15/21 Dedrick Krause DO [facility] [place] [address] Cardiology 06/04/22 Letter Carrier Relationship Specialty Start Date End Date Alma Gill, TECHNICAL APPLICATIONS SCIENTIST.TAG MACHINE OPERATOR [address] [place] [address] PCP - General Family Medicine 08/15/21 Dedrick Krause DO [facility] [place] [address] Cardiology 06/04/22 Letter Carrier Relationship Specialty Start Date End Date Alma Gill TECHNICAL APPLICATIONS SCIENTIST.TAG MACHINE OPERATOR [address] [place] [address] PCP - General Family Medicine 08/15/21 Dedrick Krause DO [facility] [place] [address] Cardiology 06/04/22 Letter Carrier Relationship Specialty Start Date End Date Alma Gill, TECHNICAL APPLICATIONS SCIENTIST.TAG MACHINE OPERATOR [address] [place] [address] PCP - General Family Medicine 08/15/21 Dedrick Krause DO [facility] [place], [place] [id number] Cardiology 06/04/22 Letter Carrier Relationship Specialty Start Date End Date Alma Gill, TECHNICAL APPLICATIONS SCIENTIST.TAG MACHINE OPERATOR [address] [place] [address] PCP - General Family Medicine 08/15/21 Dedrick Krause DO [address] [place] [address] Cardiology 06/04/22 Letter Carrier Relationship Specialty Start Date End Date Alma Gill, TECHNICAL APPLICATIONS SCIENTIST.TAG MACHINE OPERATOR [address] [place] [address] PCP - General Family Medicine 08/15/21 Dedrick Krause DO [facility] [place] [address] Cardiology 06/04/22 Letter Carrier Relationship Specialty Start Date End Date Alma Gill TECHNICAL APPLICATIONS SCIENTIST.TAG MACHINE OPERATOR [address] [place] [address] PCP - General Family Medicine 08/15/21 Dedrick Krause DO [address] [place] [address] Cardiology 06/04/22 Letter Carrier Relationship Specialty Start Date End Date Alma Gill, TECHNICAL APPLICATIONS SCIENTIST.TAG MACHINE OPERATOR [address] [place] [address] PCP - General Family Medicine 08/15/21 Dedrick Krause DO [address] [place] [address] Cardiology 06/04/22 Letter Carrier Relationship Specialty Start Date End Date Alma Gill, TECHNICAL APPLICATIONS SCIENTIST.TAG MACHINE OPERATOR [address] [place] [address] PCP - General Family Medicine 08/15/21 Dedrick Krause DO [address] [place] [address] Cardiology 06/04/22 Letter Carrier Relationship Specialty Start Date End Date Alma Gill, TECHNICAL APPLICATIONS SCIENTIST.TAG MACHINE OPERATOR [address] [place] [address] PCP - General Family Medicine 08/15/21 Dedrick Krause DO [address] [place] [address] Cardiology 06/04/22 Letter Carrier Relationship Specialty Start Date End Date Alma Gill, TECHNICAL APPLICATIONS SCIENTIST.TAG MACHINE OPERATOR [address] [place] [address] PCP - General Family Medicine 08/15/21 Dedrick Krause DO [address] [place] [address] Cardiology 06/04/22 Letter Carrier Relationship Specialty Start Date End Date Alma Gill, TECHNICAL APPLICATIONS SCIENTIST.TAG MACHINE OPERATOR [address] [place] [address] PCP - General Family Medicine 08/15/21 Dedrick Krause DO [address] [place] [address] Cardiology 06/04/22 Letter Carrier Relationship Specialty Start Date End Date Alma Gill TECHNICAL APPLICATIONS SCIENTIST.TAG MACHINE OPERATOR [address] [place] [address] PCP - General Family Medicine 08/15/21 Dedrick Krause DO [address] [place] [address] Cardiology 06/04/22 Letter Carrier Relationship Specialty Start Date End Date Alma Gill, TECHNICAL APPLICATIONS SCIENTIST.TAG MACHINE OPERATOR [address] [place] [address] PCP - General Family Medicine 08/15/21 Dedrick Krause DO [address] [place] [address] Cardiology 06/04/22 Letter Carrier Relationship Specialty Start Date End Date Alma Gill, TECHNICAL APPLICATIONS SCIENTIST.TAG MACHINE OPERATOR [address] [place] [address] PCP - General Family Medicine 08/15/21 Dedrick Krause DO [address] [place] [address] Cardiology 06/04/22 Letter Carrier Relationship Specialty Start Date End Date Alma Gill, TECHNICAL APPLICATIONS SCIENTIST.TAG MACHINE OPERATOR [address] [place] [address] PCP - General Family Medicine 08/15/21 Dedrick Krause DO [address] [place] [address] Cardiology 06/04/22 Team Status: Active Member Role Status Dates Alma Gill VOICE OVER ARTIST, VOICE OVER ARTIST-C Primary Care Provider Active Team Status: Inactive Member Role Status Dates Alma Gill VOICE OVER ARTIST, VOICE OVER ARTIST-C Primary Care Provider Active Start: July 20, 2024 End: July 20, 2024 Alma Gill VOICE OVER ARTIST, VOICE OVER ARTIST-C Attending Provider Active Start: July 20, 2024 End: July 20, 2024 Alma Gill VOICE OVER ARTIST, VOICE OVER ARTIST-C Referring Provider Active Start: July 20, 2024 End: July 20, 2024 Letter Carrier Relationship Specialty Start Date End Date Alma Gill, TECHNICAL APPLICATIONS SCIENTIST.TAG MACHINE OPERATOR [address] [place] [address] PCP - General Family Medicine 08/15/21 Dedrick Krause DO [address] [place] [address] Cardiology 06/04/22 Letter Carrier Relationship Specialty Start Date End Date Alma Gill TECHNICAL APPLICATIONS SCIENTIST.TAG MACHINE OPERATOR [address] [place] [address] PCP - General Family Medicine 08/15/21 Dedrick Krause DO [address] [place] [address] Cardiology 06/04/22 Letter Carrier Relationship Specialty Start Date End Date Alma Gill TECHNICAL APPLICATIONS SCIENTIST.EVANS [address] [place] [address] PCP - General Family Medicine 08/15/21 Dedrick Krause DO [address] [place] [address] Cardiology 06/04/22 Letter Carrier Relationship Specialty Start Date End Date Alma Gill, TECHNICAL APPLICATIONS SCIENTIST.TAG MACHINE OPERATOR [address] [facility] [place] [address] PCP - General Family Medicine 08/15/21 Dedrick Krause DO [facility] [place] [address] Cardiology 06/04/22 Letter Carrier Relationship Specialty Start Date End Date Alma Gill, TECHNICAL APPLICATIONS SCIENTIST.TAG MACHINE OPERATOR [address] [place] [address] PCP - General Family Medicine 08/15/21 Dedrick Krause DO [address] [place] [address] Cardiology 06/04/22 Letter Carrier Relationship Specialty Start Date End Date Alma Gill, TECHNICAL APPLICATIONS SCIENTIST.TAG MACHINE OPERATOR [address] [place] [address] PCP - General Family Medicine 08/15/21 Dedrick Krause DO [address] [place] [address] Cardiology 06/04/22 Letter Carrier Relationship Specialty Start Date End Date Alma Gill, TECHNICAL APPLICATIONS SCIENTIST.TAG MACHINE OPERATOR [address] [place] [address] PCP - General Family Medicine 08/15/21 Dedrick Krause DO [address] [place] [address] Cardiology 06/04/22 Letter Carrier Relationship Specialty Start Date End Date Alma Gill, TECHNICAL APPLICATIONS SCIENTIST.TAG MACHINE OPERATOR [address] [place], [place] [id number] PCP - General Family Medicine 08/15/21 Beatrice Sarmiento MD [address] [place], [place] [address] Cardiology 10/12/24 Letter Carrier Relationship Specialty Start Date End Date Alma Gill, TECHNICAL APPLICATIONS SCIENTIST.TAG MACHINE OPERATOR [address] [place] [address] PCP - General Family Medicine 08/15/21 Beatrice Sarmiento MD [address] [facility] [place] [place] [address] Cardiology 10/12/24 Letter Carrier Relationship Specialty Start Date End Date Alma Gill, TECHNICAL APPLICATIONS SCIENTIST.TAG MACHINE OPERATOR [address] [facility] [place] [id number] PCP - General Family Medicine 08/15/21 Beatrice Sarmiento MD [address] [place], [place] [address] Cardiology 10/12/24 Lilian Sethi, SERGEY Primary Care Programming Engineer 10/19/24 Letter Carrier Relationship Specialty Start Date End Date Alma Gill TECHNICAL APPLICATIONS SCIENTIST.TAG MACHINE OPERATOR [address] [facility] [place] [id number] PCP - General Family Medicine 08/15/21 Beatrice Sarmiento MD [address] [place] [address] Cardiology 10/12/24 Lilian Sethi, SERGEY Primary Care Programming Engineer 10/19/24 Letter Carrier Relationship Specialty Start Date End Date Alma Gill TECHNICAL APPLICATIONS SCIENTIST.TAG MACHINE OPERATOR [address] [facility] [place] [address] PCP - General Family Medicine 08/15/21 Dedrick Krause DO [address] [place], [place] [id number] Cardiology 06/04/22 10/11/24 Beatrice Sarmiento MD [address] [facility], [place] [address] Cardiology 10/12/24 Lilian Sethi, SERGEY Primary Care Programming Engineer 10/19/24 Letter Carrier Relationship Specialty Start Date End Date Alma Gill, TECHNICAL APPLICATIONS SCIENTIST.TAG MACHINE OPERATOR [address] [facility] [address] PCP - General Family Medicine 08/15/21 Beatrice Sarmiento MD [address] [place] [address] Cardiology 10/12/24 Letter Carrier Relationship Specialty Start Date End Date Alma Gill TECHNICAL APPLICATIONS SCIENTIST.TAG MACHINE OPERATOR [address] [facility] [address] PCP - General Family Medicine 08/15/21 Beatrice Sarmiento MD [address] [place] [address] Cardiology 10/12/24 Lilian Sethi, RN Primary Care Programming Engineer 10/19/24 Letter Carrier Relationship Specialty Start Date End Date Alma Gill, TECHNICAL APPLICATIONS SCIENTIST.TAG MACHINE OPERATOR [address] [facility] [place] [address] PCP - General Family Medicine 08/15/21 Dedrick Krause DO [address] [facility] [place] [address] Cardiology 06/04/22 10/11/24 Beatrice Sarmiento MD [address] [place] [address] Cardiology 10/12/24 Lilian Sethi RN Primary Care Programming Engineer 10/19/24 Letter Carrier Relationship Specialty Start Date End Date Alma Gill, TECHNICAL APPLICATIONS SCIENTIST.TAG MACHINE OPERATOR [address] [facility] [place] [address] PCP - General Family Medicine 08/15/21 Beatrice Sarmiento MD [address] [place] [address] Cardiology 10/12/24 Lilian Sethi RN Primary Care Programming Engineer 10/19/24 Letter Carrier Relationship Specialty Start Date End Date Alma Gill, TECHNICAL APPLICATIONS SCIENTIST.TAG MACHINE OPERATOR [address] [facility] [place] [address] PCP - General Family Medicine 08/15/21 Beatrice Sarmiento MD [address] [place] [address] Cardiology 10/12/24 Lilian Sethi, SERGEY Primary Care Programming Engineer 10/19/24 Letter Carrier Relationship Specialty Start Date End Date Alma Gill, TECHNICAL APPLICATIONS SCIENTIST.TAG MACHINE OPERATOR [address] [facility] [place] [address] PCP - General Family Medicine 08/15/21 Beatrice Sarmiento MD [address] [place] [address] Cardiology 10/12/24 Lilian Sethi RN Primary Care Programming Engineer 10/19/24 Letter Carrier Relationship Specialty Start Date End Date Alma Gill, TECHNICAL APPLICATIONS SCIENTIST.TAG MACHINE OPERATOR [address] [facility] [place] [address] PCP - General Family Medicine 08/15/21 Dedrick Krause DO [address] [place] [address] Cardiology 06/04/22 10/11/24 Beatrice Sarmiento MD [address] [place] [address] Cardiology 10/12/24 Lilian Sethi RN Primary Care Programming Engineer 10/19/24 Letter Carrier Relationship Specialty Start Date End Date Alma Gill, TECHNICAL APPLICATIONS SCIENTIST.TAG MACHINE OPERATOR [address] [facility] [place] [address] PCP - General Family Medicine 08/15/21 Beatrice Sarmiento MD [address] [place], [place] [address] Cardiology 10/12/24 Lilian Sethi, SERGEY Primary Care Programming Engineer 10/19/24 Letter Carrier Relationship Specialty Start Date End Date Alma Gill, TECHNICAL APPLICATIONS SCIENTIST.TAG MACHINE OPERATOR [address] [place] [address] PCP - General Family Medicine 08/15/21 Beatrice Sarmiento MD [address] [place] [address] Cardiology 10/12/24 Lilian Sethi RN Primary Care Programming Engineer 10/19/24 Letter Carrier Relationship Specialty Start Date End Date Alma Gill, TECHNICAL APPLICATIONS SCIENTIST.TAG MACHINE OPERATOR [address] [place] [address] PCP - General Family Medicine 08/15/21 Beatrice Sarmiento MD [address] [place] [address] Cardiology 10/12/24 Lilian Sethi, SERGEY Primary Care Programming Engineer 10/19/24 Letter Carrier Relationship Specialty Start Date End Date Alma Gill, TECHNICAL APPLICATIONS SCIENTIST.TAG MACHINE OPERATOR [address] [place] [address] PCP - General Family Medicine 08/15/21 Beatrice Sarmiento MD [address] [place] [address] Cardiology 10/12/24 Lilian Sethi, SERGEY Primary Care Programming Engineer 10/19/24 Letter Carrier Relationship Specialty Start Date End Date Alma Gill, TECHNICAL APPLICATIONS SCIENTIST.TAG MACHINE OPERATOR [address] [facility] [address] PCP - General Family Medicine 08/15/21 Dedrick Krause DO [address] [facility] [address] Cardiology 06/04/22 10/11/24 Beatrice Sarmiento MD [address] [place], [place] [id number] Cardiology 10/12/24 Lilian Sethi RN Primary Care Programming Engineer 10/19/24 11/15/24 Letter Carrier Relationship Specialty Start Date End Date Alma Gill, TECHNICAL APPLICATIONS SCIENTIST.TAG MACHINE OPERATOR [address] [place] [address] PCP - General Family Medicine 08/15/21 Beatrice Sarmiento MD [address] [place], [place] [address] Cardiology 10/12/24 Lilian Sethi, SERGEY Primary Care Programming Engineer 10/19/24 11/23/24 Letter Carrier Relationship Specialty Start Date End Date Alma Gill, TECHNICAL APPLICATIONS SCIENTIST.TAG MACHINE OPERATOR [address] [place] [address] PCP - General Family Medicine 08/15/21 Beatrice Sarmiento MD [address] [place] [address] Cardiology 10/12/24 Lilian Sethi, RN Primary Care Programming Engineer 10/19/24 11/23/24 Letter Carrier Relationship Specialty Start Date End Date Alma Gill, TECHNICAL APPLICATIONS SCIENTIST.TAG MACHINE OPERATOR [address] [facility] [place] [address] PCP - General Family Medicine 08/15/21 Dedrick Krause DO [address] [place], [place] [id number] Cardiology 06/04/22 10/11/24 Beatrice Sarmiento MD [address] [place] [address] Cardiology 10/12/24 Lilian Sethi, RN Primary Care Programming Engineer 10/19/24 11/23/24 Letter Carrier Relationship Specialty Start Date End Date Alma Gill, TECHNICAL APPLICATIONS SCIENTIST.TAG MACHINE OPERATOR [address] [facility] [place] [address] PCP - General Family Medicine 08/15/21 Beatrice Sarmiento MD [address] [place] [address] Cardiology 10/12/24 Letter Carrier Relationship Specialty Start Date End Date Alma Gill, TECHNICAL APPLICATIONS SCIENTIST.TAG MACHINE OPERATOR [address] [facility] [place] [address] PCP - General Family Medicine 08/15/21 Dedrick Krause DO [address] [place] [address] Cardiology 06/04/22 10/11/24 Beatirce Sarmiento MD [address] [place], [place] [address] Cardiology 10/12/24 Lilian Sethi, RN Primary Care Programming Engineer 10/19/24 11/23/24 Letter Carrier Relationship Specialty Start Date End Date Alma Gill, TECHNICAL APPLICATIONS SCIENTIST.TAG MACHINE OPERATOR [address] [place], [place] [phone] PCP - General Family Medicine 08/15/21 Beatrice Sarmiento MD [address] [place], [place] [phone] Cardiology 10/12/24 Letter Carrier Relationship Specialty Start Date End Date Alma Gill, TECHNICAL APPLICATIONS SCIENTIST.TAG MACHINE OPERATOR [address] [place], [place] [phone] PCP - General Family Medicine 08/15/21 Beatrice Sarmiento MD [address] [place], [place] [address] Cardiology 10/12/24 Letter Carrier Relationship Specialty Start Date End Date Alma Gill, TECHNICAL APPLICATIONS SCIENTIST.TAG MACHINE OPERATOR [address] [place] [address] PCP - General Family Medicine 08/15/21 Beatrice Sarmiento MD [address] [place] [address] Cardiology 10/12/24 Letter Carrier Relationship Specialty Start Date End Date Alma Gill, TECHNICAL APPLICATIONS SCIENTIST.TAG MACHINE OPERATOR [address] [place], [place] [phone] PCP - General Family Medicine 08/15/21 Beatrice Sarmiento MD [address] [place], [place] [address] Cardiology 10/12/24 Letter Carrier Relationship Specialty Start Date End Date Alma Gill, TECHNICAL APPLICATIONS SCIENTIST.TAG MACHINE OPERATOR [address] [place] [address] PCP - General Family Medicine 08/15/21 Beatrice Sarmiento MD [address] [place] [address] Cardiology 10/12/24 Letter Carrier Relationship Specialty Start Date End Date Alma Gill, TECHNICAL APPLICATIONS SCIENTIST.TAG MACHINE OPERATOR [address] [place] [address] PCP - General Family Medicine 08/15/21 Beatrice Sarmiento MD [address] [place], [place] [address] [phone] Cardiology 10/12/24 Letter Carrier Relationship Specialty Start Date End Date Alma Gill, TECHNICAL APPLICATIONS SCIENTIST.TAG MACHINE OPERATOR [address] [place] [address] PCP - General Family Medicine 08/15/21 Beatrice Sarmiento MD [address] [place] [address] Cardiology 10/12/24 Letter Carrier Relationship Specialty Start Date End Date Alma Gill, TECHNICAL APPLICATIONS SCIENTIST.TAG MACHINE OPERATOR [address] [facility], [place] [id number] PCP - General Family Medicine 08/15/21 Beatrice Sarmiento MD [address] [facility], [place] [phone] Cardiology 10/12/24 Letter Carrier Relationship Specialty Start Date End Date Alma Gill, TECHNICAL APPLICATIONS SCIENTIST.TAG MACHINE OPERATOR [address] [facility], [place] [phone] PCP - General Family Medicine 08/15/21 Beatrice [facility]armiento MD [address] [facility] [place] [phone] Cardiology 10/12/24 Lilian Sethi, SERGEY Primary Care Programming Engineer 10/19/24 11/23/24 Letter Carrier Relationship Specialty Start Date End Date Alma Gill, TECHNICAL APPLICATIONS SCIENTIST.TAG MACHINE OPERATOR [address] [place] [place] [address] PCP - General Family Medicine 08/15/21 Beatrice Sarmiento MD [address] [facility] [place], [place] [phone] Cardiology 10/12/24 <item> Privacy Markings (unrecogniz ed section and content) Section Author: Zena Smith PROHIBITION ON REDISCLOSURE OF CONFIDENTIAL INFORMATION This notice accompanies a disclosure of information concerning a client made to you with the consent of such client. Inactive Administered Medications - up to 3 most recent administrations Administered Medications (un recognized section and content) Medication Order MAR Action Action Date Dose Rate Site benzocaine 20% 1 Jaffrey (TOPEX) 1 Jaffrey, TOPICAL, DIRECTED, Starting on Joanna 06/20/23 at 0830, Until Joanna 06/20/23 at 1229, Dosing as directed for intraprocedural use only - Pharmaceutical Waste: Aerosol -, Intraprocedure Given 06/20/2023 8:09 AM EST 5 Sprays fentaNYL 50 mcg/mL 25-100 mcg injection (SUBLIMAZE) 25-100 mcg, INTRAVENOUS, DIRECTED, Starting on Joanna 06/20/23 at 0830, Until Joanna 06/20/23 at 1229, DOSING DIRECTED BY PHYSICIAN FOR PROCEDURAL SEDATION ONLY, Intraprocedure Given 06/20/2023 8:10 AM EST 50 mcg lactated ringers iv infusion 30 mL/hr, INTRAVENOUS, CONTINUOUS, Starting on Joanna 06/20/23 at 0730, Until Joanna 06/20/23 at 0846, Preprocedure New Bag/Syringe/Bottle 06/20/2023 7:49 AM EST 30 mL/hr 30 mL/hr midazolam (PF) 1-5 mg injection (VERSED) 1-5 mg, INTRAVENOUS, DIRECTED, Starting on Joanna 06/20/23 at 0830, Until Joanna 06/20/23 at 1229, DOSING DIRECTED BY PHYSICIAN FOR PROCEDURAL SEDATION ONLY, Intraprocedure Given 06/20/2023 8:22 AM EST 2 mg Given 06/20/2023 8:10 AM EST 3 mg Goals (unrecognized section and content) Goals may be documented in a n alternate section FOR RECORDS PERTAINING TO PATIENTS WHO ARE OR HAVE BEEN ENROLLED IN A CHEMICAL DEPENDENCY/SUBSTANCEABUSE PROGRAM, SOME INFORMATION MAY BE OMITTED. This clinical summary was aggregated from multiple sources. Caution should be exercised in using it in the provision of clinical care. This summary normalizes information from multiple sources, and as a consequence, information in this document may materially change the coding, format and clinical context of patient data. In addition, data may be omitted in some cases. CLINICAL DECISIONS SHOULD BE BASED ON THE PRIMARY CLINICAL RECORDS. [email or web address] provides no warranty or guarantee of the accuracy or completeness of information in this document.
== END | disposition home or self-care (01) ==
PROVIDERS: PCP Nurse Practitioner Family; Referring Provider Physician Assistant; Visit Provider Physician Assistant
DX: J84.9 Interstitial pulmonary disease, unspecified (principal); I11.0 Hypertensive heart disease with heart failure
CPT/HCPCS: 80048; 85025

== ENCOUNTER → 2025-04-07 | Outpatient (CLI) | payer MEDICARE, BC, SELFPAY ==
--- OUTSIDE RECORDS SUMMARY | 2025-04-07 17:38 | XMS RPT_ITS | CCD ---
Author Organization [facility] Care Team Providers Care Psychology Associate Name Role Phone Priya Rock Unavailable Unavailable Unavailable Unavailable Unavailable Queden WINDOWS SECURITY ENGINEER.SPECIALTY THERAPIST, Alma A Primary Care Provider Richard Nieto Unavailable Queden WINDOWS SECURITY ENGINEER.SPECIALTY THERAPIST, Alma A Primary Care Provider Queden WINDOWS SECURITY ENGINEER.SPECIALTY THERAPIST, Alma A Primary Care Provider Queden WINDOWS SECURITY ENGINEER.SPECIALTY THERAPIST, Alma A Primary Care Provider Dedrick Krause DO Unavailable Dedrick Krause DO Unavailable Queden WINDOWS SECURITY ENGINEER.SPECIALTY THERAPIST, Alma A Primary Care Provider Marbin RINCON, Qi Veliz Unavailable Liilan Sethi RN Unavailable Marbin RINCON, Qi N Unavailable [phone] Marbin RINCON, Qi N Unavailable Beatrice Sarmiento Attending Unavailable Beatrice Sarmiento Referring Unavailable Queden COMPLEX MANAGER, Alma Primary Care Unavailable Queden COMPLEX MANAGER, Alma Primary Care Unavailable Queden COMPLEX MANAGER, Alma Attending Unavailable Queden COMPLEX MANAGER, Alma Referring Unavailable Queden COMPLEX MANAGER-C, Alma Primary Care Provider [phone] Queden COMPLEX MANAGER-C, Alma Attending Provider Queden COMPLEX MANAGER-C, Alma Referring Provider [phone] Beatrice Sarmiento MD Unavailable MONE ROBERTSON Referring Unavailable PROVIDER, UNKNOWN Primary Care Unavailable ROSA M, BUDDY Attending Unavailable TRU PRESCOTT Admitting Unavailable BUDZIAK, [...] Unavailable QUEDEN, ALMA A Primary Care Unavailable EBAR HIDALGO Attending Unavailable QUEDEN, ALMA A Referring [...] QUEDEN, ALMA A Primary Care Unavailable TESTRAKE, FRACNESCO Attending Unavailable TESTRAKE, FRANCESCO Referring Unavailable QUEDEN, ALMA A Primary Care Unavailable Allergies Allergy Classification Reported Allergen(s) Allergy Type Date of Onset Reaction(s) Facility (20 sources) Seasonal allergy; Translations: [SEASONAL ALLERGIES] Propensity to adverse reactions 3 Other: See Comments [facility] Work Phone: (20 sources) Animal Dander; Translations: [ANIMAL DANDER] Propensity to adverse reactions to drug 3 Other: See Comments [facility] Work Phone: Medications Current Medications Medication Drug [...] Comment on above: Take 2 tablets by [facility] every 8 hours as needed for pain. [...] 12/12/2023 Active Comment on above: Use 1 Elbert in each nostril once daily. SPRAY 1 [...] pulmonary fibrosis and emphysema (CPFE) (HCC) , half-way (current) use of systemic steroids Take 1 [...] BY ANAND TH EVERY DAY lactobacillus acidophilus [id number] unt oral capsule (20 sources) take 1 capsule by mouth once daily Lactobacillus acidophilus (PROBIOTIC) 10 billion cell cap Take 1 capsule by mouth once daily. Active Comment on above: Take 1 capsule by [facility] once daily. 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 Take 1 capsule by [facility] twice daily for 10 days. 14 actuat [...] 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 ([facility]) Inhale 1 Puff as instructed once daily. 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 1 Each 03/04/2023 09/09/2023 Discontinued Start: 03-04-2023 take 1 puff(s) by inhalation once daily ribejrgwubq-ocwionlsq-tzovdlyd (TRELEGY ELLIPTA) 200-62.5-25 mcg inhalation powder Indications: [...] Start: 07-05-2022 take 2 tablets by mo [facility] once daily at bedtime pravastatin (PRAVACHOL) 10 [...] Comment on above: [facility] Take 2 tablets by mo [facility] daily at bedtime. psyllium 400 mg oral [...] nasal spray Indications: Postnasal drip Use 1 Elbert in the nose as needed. 50 mL 2 09/13/2022 04/22/2024 Discontinued Start: 02-12-2022 End: 05-14-2023 sodium chloride 0.9 % (flush ) 10 mL (BD POSIFLUSH) Comment on above: Use 1 Elbert in the n ose as needed. 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] Onset: 09-21-2024 [...] Reference Range Facility CNOVon 03-15-2025 CNOV Normal [facility] CBC W Auto Differential pane l (Bld)on 03-11-2025 Basophils (Bld) [#/Vol] 10*3/uL Normal <0.11 [facility] Comment on above: Order Comment: Elgin egan Type: BLOOD SPECIMENOrdering Facility: External Submitter Address: , , Performed By: #### 5 7021-8 ####[facility] [id number] [address] STATES OF [facility] Basophils/100 WBC (Bld) 0.2 % Normal [facility] Comment on above: Order Comment: Elgin egan Type: BLOOD SPECIMENOrdering Facility: External Submitter Address: , , Performed By: #### 5 7021-8 ####[facility] [id number] [address] [place] Differential cell count method Nom (Bld) Auto Normal [facility] Comment on above: Order Comment: Elgin egan Type: BLOOD SPECIMENOrdering Facility: External Submitter Address: , , Performed By: #### 5 7021-8 ####[facility] [id number] [place] [address] [place] Eosinophils (Bld) [#/Vol] 0.12 10*3/uL Normal <0.46 [facility] Comment on above: Order Comment: Speci men Type: BLOOD SPECIMENOrdering Facility: External Submitter Address: , , Performed By: #### 5 7021-8 ####[facility] [id number] [address] Eosinophils/100 WBC (Bld) 1.3 % Normal [facility] Comment on above: Order Comment: Speci men Type: BLOOD SPECIMENOrdering Facility: External Submitter Address: , , Performed By: #### 5 7021-8 ####[facility] [id number] [address] Erythrocyte distribution width (RBC) [Ratio] 13.7 % Normal 11.5-15.0 [facility] Comment on above: Order Comment: Speci men Type: BLOOD SPECIMENOrdering Facility: External Submitter Address: , , Performed By: #### 5 7021-8 ####[facility] LABIA [id number] [address] Hematocrit (Bld) [Volume fraction] 35.6 % Low 39.0-51.0 [facility] Comment on above: Order Comment: Speci men Type: BLOOD SPECIMENOrdering Facility: External Submitter Address: , , Performed By: #### 5 7021-8 ####[facility] [id number] [address] OF [facility] Hemoglobin (Bld) [Mass/Vol] 10.9 g/dL Low 13.0-17.0 [facility] Comment on above: Order Comment: Speci men Type: BLOOD SPECIMENOrdering Facility: External Submitter Address: , , Performed By: #### 5 7021-8 ####[facility] [id number] [address] Immature granulocytes (Bld) [#/Vol] 0.04 10*3/uL Normal <0.10 [facility] Comment on above: Order Comment: Speci men Type: BLOOD SPECIMENOrdering Facility: External Submitter Address: , , Performed By: #### 5 7021-8 ####[facility] [id number] [address] Immature granulocytes/100 WBC (Bld) 0.4 % Normal [facility] Comment on above: Order Comment: Speci men Type: BLOOD SPECIMENOrdering Facility: External Submitter Address: , , Performed By: #### 5 7021-8 ####[facility] [id number] [address] Lymphocytes (Bld) [#/Vol] 0.81 10*3/uL Low 1.00-4.00 [facility] Comment on above: Order Comment: Speci men Type: BLOOD SPECIMENOrdering Facility: External Submitter Address: , , Performed By: #### 5 7021-8 ####[facility] LABIA [id number] [address] Lymphocytes/100 WBC (Bld) 8.8 % Normal [facility] Comment on above: Order Comment: Speci men Type: BLOOD SPECIMENOrdering Facility: External Submitter Address: , , Performed By: #### 5 7021-8 ####[facility] LABIA [id number] [address] MCH (RBC) [Entitic mass] 26.5 pg Normal 26.0-34.0 [facility] Comment on above: Order Comment: Speci men Type: BLOOD SPECIMENOrdering Facility: External Submitter Address: , , Performed By: #### 5 7021-8 ####[facility] [id number] [address] MCHC (RBC) [Mass/Vol] 30.6 g/dL Normal 30.5-36.0 [facility] Comment on above: Order Comment: Speci men Type: BLOOD SPECIMENOrdering Facility: External Submitter Address: , , Performed By: #### 5 7021-8 ####[facility] [id number] [address] OF [place] MCV (RBC) [Entitic vol] 86.4 fL Normal 80.0-100.0 [facility] Comment on above: Order Comment: Speci men Type: BLOOD SPECIMENOrdering Facility: External Submitter Address: , , Performed By: #### 5 7021-8 ####[facility]CL[facility] [id number] [place] [address] [place] Monocytes (Bld) [#/Vol] 0.96 10*3/uL High <0.87 [facility] Comment on above: Order Comment: Speci men Type: BLOOD SPECIMENOrdering Facility: External Submitter Address: , , Performed By: #### 5 7021-8 ####[facility]CL[facility] [id number] [address] OF [facility] Monocytes/100 WBC (Bld) 10.4 % Normal [facility] Comment on above: Order Comment: Speci men Type: BLOOD SPECIMENOrdering Facility: External Submitter Address: , , Performed By: #### 5 7021-8 ####[facility] [id number] [address] OF [place] Neutrophils (Bld) [#/Vol] 7.30 10*3/uL Normal 1.45-7.50 [facility] Comment on above: Order Comment: Speci men Type: BLOOD SPECIMENOrdering Facility: External Submitter Address: , , Performed By: #### 5 7021-8 ####[facility] [id number] [address] [place] Neutrophils/100 WBC (Bld) 78.9 % Normal [facility] Comment on above: Order Comment: Speci men Type: BLOOD SPECIMENOrdering Facility: External Submitter Address: , , Performed By: #### 5 7021-8 ####[facility]CLIA [id number] [place] [address] [place] Nucleated RBC (Bld) [#/Vol] 10*3/uL Normal <0.01 [facility] Comment on above: Order Comment: Speci men Type: BLOOD SPECIMENOrdering Facility: External Submitter Address: , , Performed By: #### 5 7021-8 ####[facility] [id number] [address] OF [facility] Nucleated RBC/100 WBC (Bld) [Ratio] 0.0 /100 WBC Normal [facility] Comment on above: Order Comment: Speci men Type: BLOOD SPECIMENOrdering Facility: External Submitter Address: , , Performed By: #### 5 7021-8 ####[facility] [id number] [address] STATES OF [facility] Platelet mean volume (Bld) [Entitic vol] 10.1 fL Normal 9.0-12.7 [facility] Comment on above: Order Comment: Speci men Type: BLOOD SPECIMENOrdering Facility: External Submitter Address: , , Performed By: #### 5 7021-8 ####[facility] [id number] [address] [place] Platelets (Bld) [#/Vol] 232 10*3/uL Normal 150-400 [facility] Comment on above: Order Comment: Speci men Type: BLOOD SPECIMENOrdering Facility: External Submitter Address: , , Performed By: #### 5 7021-8 ####[facility] [id number] [address] OF [place] RBC (Bld) [#/Vol] 4.12 10*6/uL Low 4.20-6.00 [facility] Comment on above: Order Comment: Speci men Type: BLOOD SPECIMENOrdering Facility: External Submitter Address: , , Performed By: #### 5 7021-8 ####[facility] [id number] [address] OF [place] WBC (Bld) [#/Vol] 9.25 10*3/uL Normal 3.70-11.00 [facility] Comment on above: Order Comment: Speci men Type: BLOOD SPECIMENOrdering Facility: External Submitter Address: , , Performed By: #### 5 7021-8 ####[facility]CL[facility] [id number] [address] OF [facility] Comprehensive metabolic 2000 panelon 03-11-2025 Albumin [Mass/Vol] 3.8 g/dL Low 3.9-4.9 [facility] Comment on above: Order Comment: Speci men Type: BLOOD SPECIMENOrdering Facility: External Submitter Address: , , Performed By: #### 2 4323-8 ####[facility]CL[facility] [id number] [address] STATES OF [facility] ALP [Catalytic activity/Vol] 55 U/L Normal 38-113 [facility] Comment on above: Order Comment: Speci men Type: BLOOD SPECIMENOrdering Facility: External Submitter Address: , , Performed By: #### 2 4323-8 ####[facility] [id number] [address] OF [facility] ALT [Catalytic activity/Vol] 16 U/L Normal 10-54 [facility] Comment on above: Order Comment: Speci men Type: BLOOD SPECIMENOrdering Facility: External Submitter Address: , , Performed By: #### 2 4323-8 ####[facility]CLIA [id number] [address] STATES [facility] Anion gap [Moles/Vol] 11 mmol/L Normal 8-15 [facility] Comment on above: Order Comment: Speci men Type: BLOOD SPECIMENOrdering Facility: External Submitter Address: , , Performed By: #### 2 4323-8 ####[facility]CLIA [id number] [address] STATES OF [facility] AST [Catalytic activity/Vol] 23 U/L Normal 14-40 [facility] Comment on above: Order Comment: Speci men Type: BLOOD SPECIMENOrdering Facility: External Submitter Address: , , Performed By: #### 2 4323-8 ####[facility]CLIA [id number] [place] [address] [place] Bilirubin [Mass/Vol] 0.3 mg/dL Normal 0.2-1.3 [facility] Comment on above: Order Comment: Speci men Type: BLOOD SPECIMENOrdering Facility: External Submitter Address: , , Performed By: #### 2 4323-8 ####[facility]CLIA [id number] [place] [address] [place] Calcium [Mass/Vol] 9.0 mg/dL Normal 8.5-10.2 [facility] Comment on above: Order Comment: Speci men Type: BLOOD SPECIMENOrdering Facility: External Submitter Address: , , Performed By: #### 2 4323-8 ####[facility] LABIA [id number] [place] [address] [place] Chloride [Moles/Vol] 94 mmol/L Low 98-107 [facility] Comment on above: Order Comment: Speci men Type: BLOOD SPECIMENOrdering Facility: External Submitter Address: , , Performed By: #### 2 4323-8 ####[facility]CL[facility] [id number] [place] [address] [place] CO2 [Moles/Vol] 25 mmol/L Normal 22-30 [facility] Comment on above: Order Comment: Speci men Type: BLOOD SPECIMENOrdering Facility: External Submitter Address: , , Performed By: #### 2 4323-8 ####[facility]CLIA [id number] [place] [address] [place] Creatinine [Mass/Vol] 1.02 mg/dL Normal 0.73-1.22 [facility] Comment on above: Order Comment: Speci men Type: BLOOD SPECIMENOrdering Facility: External Submitter Address: , , Performed By: #### 2 4323-8 ####[facility] LABCLIA [id number] [place] [address] [place] eGFRcr SerPlBld CKD-EPI 2020 79 mL/min/1.73m??? Normal >=60 [facility] Comment on above: Order Comment: Elgin [...] actual GFR. Performed By: #### 2 4323-8 ####[facility]CLIA [id number] [place] [address] [place] Glucose [Mass/Vol] 119 mg/dL High 74-99 [facility] Comment on above: Order Comment: Elgin egan Type: BLOOD SPECIMENOrdering Facility: External Submitter Address: , , Result Comment: The [place] Diabetes Association (ADA) provides guidance for cutoff [...] Standards of Medical Care in Diabetes 2016, [place] [employer]. Diabetes Care. 2016.39(Suppl 1). Performed By: #### 2 4323-8 ####[facility] LABIA [id number] [place] [address] [place] Potassium [Moles/Vol] 4.3 mmol/L Normal 3.7-5.1 [facility] Comment on above: Order Comment: Elgin egan Type: BLOOD SPECIMENOrdering Facility: External Submitter Address: , , Performed By: #### 2 4323-8 ####[facility]CL[facility] [id number] [address] Protein [Mass/Vol] 6.6 g/dL Normal 6.3-8.0 [facility] Comment on above: Order Comment: Speci men Type: BLOOD SPECIMENOrdering Facility: External Submitter Address: , , Performed By: #### 2 4323-8 ####[facility]CL[facility] [id number] [address] Sodium [Moles/Vol] 130 mmol/L Low 136-144 [facility] Comment on above: Order Comment: Speci men Type: BLOOD SPECIMENOrdering Facility: External Submitter Address: , , Performed By: #### 2 4323-8 ####[facility] LABIA [id number] [address] Urea nitrogen [Mass/Vol] 8 mg/dL Low 9-24 [facility] Comment on above: Order Comment: Speci men Type: BLOOD SPECIMENOrdering Facility: External Submitter Address: , , Performed By: #### 2 4323-8 ####[facility]CLIA [id number] [address] OF [facility] CNPNon 03-02-2025 CNPN Normal [facility] MARS PETERSON ([id number]) 1955 M DEF Date Time Provider Department 03/01/25 AL[place] GILL During your visit today, we recorded the following information about you: Priya Pedersen MA 03/01/2025 7:47 AM Signed Form received from [facility] medical placed in signing VANNA Moe [...] heart failure (HCC*11/23/2021 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*11/23/2021 CVA (cerebral vascular accident) ([facility]) [I63.9] 11/23/2021 11/20/2022 Neuropathy [G62.9] 11/23/2021 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] 11/23/2021 09/18/2023 Umbilical hernia [...] on im (more content not included)... Normal [facility] Basic metabolic 2000 panelon 02-25-2025 Anion gap [Moles/Vol] 10 mmol/L Normal 8-15 [facility] Comment on above: Order Comment: Speci men Type: BLOOD SPECIMENOrdering Facility: External Submitter Address: , , Performed By: #### 2 4321-2 ####[facility]CL[facility] [id number] [place] [address] [place] Calcium [Mass/Vol] 8.8 mg/dL Normal 8.5-10.2 [facility] Comment on above: Order Comment: Speci men Type: BLOOD SPECIMENOrdering Facility: External Submitter Address: , , Performed By: #### 2 4321-2 ####[facility]CLIA [id number] [place] [address] [place] Chloride [Moles/Vol] 93 mmol/L Low 98-107 [facility] Comment on above: Order Comment: Speci men Type: BLOOD SPECIMENOrdering Facility: External Submitter Address: , , Performed By: #### 2 4321-2 ####[facility]CLIA [id number] [place] [address] [place] CO2 [Moles/Vol] 25 mmol/L Normal 22-30 [facility] Comment on above: Order Comment: Speci men Type: BLOOD SPECIMENOrdering Facility: External Submitter Address: , , Performed By: #### 2 4321-2 ####[facility]CLIA [id number] [place] [address] [place] Creatinine [Mass/Vol] 0.99 mg/dL Normal 0.73-1.22 [facility] Comment on above: Order Comment: Speci men Type: BLOOD SPECIMENOrdering Facility: External Submitter Address: , , Performed By: #### 2 4321-2 ####[facility]CLIA [id number] [place] [address] [place] eGFRcr SerPlBld CKD-EPI 2020 81 mL/min/1.73m??? Normal >=60 [facility] Comment on above: Order Comment: Speci [...] actual GFR. Performed By: #### 2 4321-2 ####[facility]CLIA [id number] [place] [address] [place] Glucose [Mass/Vol] 61 mg/dL Low 74-99 [facility] Comment on above: Order Comment: Elgin egan Type: BLOOD SPECIMENOrdering Facility: External Submitter Address: , , Result Comment: The [place] Diabetes Association (ADA) provides guidance for cutoff [...] Standards of Medical Care in Diabetes 2016, [place] [employer]. Diabetes Care. 2016.39(Suppl 1). Performed By: #### 2 4321-2 ####[facility]CLIA [id number] [place] [address] [place] Potassium [Moles/Vol] 4.5 mmol/L Normal 3.7-5.1 [facility] Comment on above: Order Comment: Elgin egan Type: BLOOD SPECIMENOrdering Facility: External Submitter Address: , , Performed By: #### 2 432-2 ####[facility]CLIA [id number] [place] [address] [place] Sodium [Moles/Vol] 128 mmol/L Low 136-144 [facility] Comment on above: Order Comment: Elgin egan Type: BLOOD SPECIMENOrdering Facility: External Submitter Address: , , Performed By: #### 2 4321-2 ####[facility]CLIA [id number] [place] [address] [place] Urea nitrogen [Mass/Vol] 9 mg/dL Normal 9-24 [facility] Comment on above: Order Comment: Elgin egan Type: BLOOD SPECIMENOrdering Facility: External Submitter Address: , , Performed By: #### 2 4321-2 ####[facility]CLIA [id number] [place] [address] [place] HbA1c (Bld)on 02-25-2025 Average glucose Estimated from glycated hemoglobin (Bld) [Mass/Vol] 114 mg/dL Normal [facility] Comment on above: Order Comment: Elgin egan Type: BLOOD SPECIMENOrdering Facility: External Submitter Address: , , Result Comment: eAG: (Estimated average glucose) is a calculated value from HgbA1c and is registration representative of the average blood glucose level in the last 2-3 month period. Performed By: #### 5 5454-3 ####[facility] LABCLIA [id number] [place] [address] [facility] HbA1c (Bld) [Mass fraction] 5.6 % Normal 4.3-5.6 [facility] Comment on above: Order Comment: Elgin [...] of diabetes. Performed By: #### 5 5454-3 ####[facility]CLIA [id number] [place] [address] [facility] CNOVon 02-17-2025 CNOV Normal [facility] LUNG DIFFUSION CAPACITY (KAMRON O)on 02-17-2025 LUNG DIFFUSION CAPACITY (DLCO) Normal [facility] SPIROMETRY BASELINE ONLYon 1 SPIROMETRY BASELINE ONLY Normal [facility] CNOVon 02-11-2025 CNOV Office Visit (AGSANIYA ROJAS) ----- MARS PETERSON ([id number]) 1955 M DEF Date Time Provider Department [...] His is present with him today.Recording using [email or web address] software for draft documentation of the visit was discussed with the patient/authorized registration representative; all questions welcomed and answered. Patient/authorized registration representative agreed to proceed Pulmonary Fibrosis: - Recent approval for Ofev, not yet started. - Previous medication caused hospitalization; discontinued. - Recent CT scan performed today. - Follow-up with Dr. Simon scheduled next week. - Persistent productive cough with thick, gummy sputum x7 days. - Completed course of [...] a week. Primarily because he was urinating too much. Musculoskeletal Pain: - Reports pain in shoulders, [...] and supplements were also reviewed. Recording using Holla@Me software for draft documentation of the visit was discussed with the patient/authorized registration representative; all questions welcomed and answered. Patient/authorized registration representative agreed to proceed Pneumonia and Sepsis: [...] diet high in bananas. HOSPITAL COURSE: Mars Petersno is a 69 year old male presented [...] recently increased (more content not included)... Normal [facility] CT CHEST WO IVCONon 02-12-[address] CHEST WO IVCON * * *Final Report* * * DATE OF EXAM: Feb 11 2025 11:46AM [facility] 0541 - CT CHEST WO IVCON / [...] calcifications. Status post coronary artery bypass graft. 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: PSCB Transcribe Date/Time: Feb 16 2025 12:12P Dictated by : TRINIDAD RAMON MD This examination was interpreted and the report reviewed and electronically signed by: TRINIDAD RAMON MD on Feb 16 2025 12:22PM EST [id number] [facility] ----- PETERSONMARS ([id number]) 1955 M DEF Date Time Provider Department 01/25/25 ALMA GILL During your visit today, we recorded the following information about you: Priya Pedersen MA 01/25/2025 12:06 PM Signed Form received from [facility] placed on signing tray VANNA Rojas Brittny A, APRN.[facility] 01/28/2025 4:41 PM Signed Form signed. Please [...] heart failure (HCC*11/23/2021 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*11/23/2021 CVA (cerebral vascular accident) ([facility]) [I63.9] 11/23/2021 11/20/2022 Neuropathy [G62.9] 11/23/2021 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] 11/23/2021 09/18/2023 Umbilical hernia [K42.9] 11/23/2021 Pressure injury of right buttock, stage 2 ([facility])*02/01/2022 09/18/2023 Pressure injury of left buttock, stage 2 ([facility]) *02/01/2022 09/18/2023 Chest pain [R07.9] 02/01/2022 10/12/2024 Essential tremor [G25.0] 02/01/2022 Anxiety and depression [F41.9, F32.A] 02/01/2022 SOB (shortness of breath) [R06.02] 02/15/2022 10/12/2024 Impaired fasting glucose [R73.01] 06/04/2022 Mixed hyperlipidemia [E78.2] 06/04/2022 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 Normal [facility] CNPDanitza 01-19-2025 EVANSN Telephone (MUKESH) ----- MARS PETERSON ([id number]) 1955 M DEF Date Time Provider Department 01/19/25 ALMA GILL During your visit today, we recorded the following information about you: Alma Gill APRN.SPECIALTY THERAPIST 01/19/2025 1:52 PM Signed [facility] PT added. Please fax referral to [facility]. Thanks! Priya Pedersen MA 01/19/2025 2:18 PM [...] Neuropathy [G62.9] Order(s):CONSULT TO HOME HEALTH CARE [[id number]] Order #: [id number]: 1 Prescriptions as of 01/19/2025 - clopidogrel [...] heart failure (HCC*11/23/2021 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*11/23/2021 CVA (cerebral vascular accident) [...] S/P C (more content not included)... Normal [facility] CNOVon 12-07-2024 CNOV Normal [facility] Yamileth 12-01-2024 CNPN Telephone (KIZZYBOB) ----- MARS PETERSON ([id number]) 1955 M DEF Date Time Provider Department 12/01/24 ALMA GILL During your visit today, we recorded the following information about you: Priya Pedersen MA 12/01/2024 8:11 AM Signed Form received [facility] on signing tray VANNA Rojas Julie, MA 12/01/2024 1:06 PM Signed Faxed Priya Pedersen MA Allergies As of Date: 12/01/2024 Noted Allergy Reaction ANIMAL DANDER 08/21/2022 14 - Other: See Comments Comments: Anything with fur SEASONAL ALLERGIES 08/21/2022 14 - Other: See Comments Comments: Stuffy nose, headaches Date Reviewed: 11/11/2024 Reviewed by: Abbie Mason LPN - Fully Assessed Reason for Visit: Electronic Communication [520] Prescriptions as of 12/01/2024 - pantoprazole DR [...] heart failure (HCC*11/23/2021 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*11/23/2021 CVA (cerebral vascular accident) [...] 08/08/2022 AZRA (acute kidney injury) ([facility]) [N17.9] 08/10/2022 01/16/2024 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 Normal [facility] (AGFAMPLE[facility] ----- NICHOLASMARS H ([id number]) 1955 M DEF Date Time Provider Department 11/26/24 ALMA GILL During your visit today, we recorded the following information about you: Priya Pedersen MA 11/26/2024 7:17 AM Signed Form received from [facility] placed on signing tray VANNA Rojas Brittny A, APRN.[facility] 12/02/2024 4:16 PM Signed Form was completed [...] heart failure (HCC*11/23/2021 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*11/23/2021 CVA (cerebral vascular accident) ([facility]) [I63.9] 11/23/2021 11/20/2022 Neuropathy [G62.9] 11/23/2021 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] 11/23/2021 09/18/2023 Umbilical hernia [K42.9] 11/23/2021 Pressure injury of right buttock, stage 2 ([facility])*02/01/2022 09/18/2023 Pressure injury of left buttock, stage 2 ([facility]) *02/01/2022 09/18/2023 Chest pain [R07.9] 02/01/2022 10/12/2024 Essential tremor [G25.0] 02/01/2022 Anxiety and depression [F41.9, F32.A] 02/01/2022 SOB (shortness of breath) [R06.02] 02/15/2022 10/12/2024 Impaired fasting glucose [R73.01] 06/04/2022 Mixed hyperlipidemia [E78.2] 06/04/2022 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 Normal [facility] CNOVon 11-11-2024 CNOV Normal [facility] LUNG DIFFUSION CAPACITY (KAMRON O)on 11-11-2024 LUNG DIFFUSION CAPACITY (DLCO) Normal [facility] No Panel Informationon 11-11 [facility] [address] [facility], [place], [place] [address] Test Date: 2024-11-11 Pat Name: MARS PETERSON Department: Room: Gender: Male Lab Asst: : 1955 Requested By: Order Number: [id number] Reading MD: Cristin Mayorga MD Interpretive Statements [...] 14:03:25 EDT by Cristin Mayorga MD ID: [id number] Name: MARS PETERSON Race: White Ht: 72.00 in Wt: 264.00 lbs Age: 69 Gender: Male : 1955 Dx: Hypersensitivity pneumonitis_ Smoking Hx: Non-smoker Doctor: TRU SIMON Test Date: 11/11/2024 Site: [facility]: Dena Tavarez PRE-BRONCH POST-BRONCH Lui LLN Pred ULN %Pred ZScore Lui %Pred %Chg ZScore SPIROMETRY FVC 2.11 3.22 4.34 5.47 48 -3.33 FEV1 1.34 2.36 3.24 4.07 41 -3.38 FEV1/FVC 0.64 0.63 0.76 0.87 83 -1.54 FEFMax 5.48 6.22 8.68 11.13 63 -2.15 FEF50 0.79 2.23 4.36 6.48 18 -2.76 FIF50 2.56 FEF50/FIF50 0.31 90-100 FIVC 1.95 RPF43-89 0.48 1.07 2.50 4.53 19 -2.66 ExpiredTime [...] Lab on 11/10/2024. //KM PULMONARY FUNCTION LAB [facility] SPIROMETRY BASELINE ONLYon 0 11-11-2024 DLCO (ml/min/mmHg) 8.88 ml/min/mmHg [facility] DLCO LLN (ml/min/mmHg) 19.94 ml/min/mmHg [facility] DLCO PREDICTED (ml/min/mmHg) 27.17 ml/min/mmHg [facility] DLCO ULN (ml/min/mmHg) 35.79 ml/min/mmHg C [facility] DLCO/VA (ml/min/mmHg/L) 0.03 ml/min/mmHg /L [facility] DLCO/VA PREDICTED (ml/min/mmHg/L) 0.04 ml/min/mmHg /L [facility] DLCO/VAcor (ml/min/mmHg/L) 0.03 ml/min/mmHg /L [facility] DLCOcor (ml/min/mmHg) 8.73 ml/min/mmHg Cl [facility] DLCOcor PREDICTED (ml/min/mmHg) 25.04 ml/min/mmHg [facility] ERV PREDICTED (L) 1.45 L/S [facility] FEF25% PRE (L/S) 3.24 L/S [facility] d [facility] EMQ18-54% LLN (L/S) 1.07 L/S [facility] DML95-34% PRE (L/S) 0.48 L/S [facility] PHE73-41% PREDICTED (L/S) 2.5 L/S [facility] FEF75% LLN (L/S) 0.25 L/S [facility] FEF75% PRE (L/S0 0.13 L/S [facility] FEF75% PREDICTED (L/S) 0.68 L/S Cl [facility] FEF75% ULN (L/S) 1.77 L/S [facility] FET PRE (S) 11.65 S [facility] FEV1 LLN (L) 2.36 L [facility] FEV1 PRE (L) 1.34 L [facility] FEV1 PREDICTED (L) 3.24 L [facility] FEV1 ULN (L) 4.07 L [facility] FEV1/FVC LLN (%) 63 % [facility] FEV1/FVC PRE (%) 64 % [facility] FEV1/FVC PREDICTED (%) 76 % [facility] FVC LLN (L) 3.22 L [facility] FVC PRE (L) 2.11 L [facility] FVC PREDICTED (L) 4.34 L [facility] FVC ULN (L) 5.47 L [facility] IC PREDICTED (L) 2.89 L/S [facility] PEF LLN (L/S) 6.22 L/S [facility] PEF PRE (L/S) 5.48 L/S [facility] PEF ULN (L/S) 11.13 L/S [facility] SVC LLN (L) 3.22 L/S [facility] SVC PREDICTED (L) 4.34 L/S [facility] SVC ULN (L) 5.47 L/S [facility] VA (L) 2.69 L [facility] VA PREDICTED (L) 6.87 L [facility] SPIROMETRY BASELINE ONLY Normal [facility] CBC W Auto Differential pane l (Bld)on 11-10-2024 Basophils (Bld) [#/Vol] 0.03 10*3/uL NINF [facility] Basophils/100 WBC (Bld) 0.3 % [facility] Differential cell count method Nom (Bld) Auto [facility] Eosinophils (Bld) [#/Vol] 0.33 10*3/uL [facility] Eosinophils/100 WBC (Bld) 3.6 % [facility] Erythrocyte distribution width (RBC) [Ratio] 15.4 % High 11.5 - 15.0 % [facility] Hematocrit (Bld) [Volume fraction] 39.3 % 39.0 - 51.0 % [facility] Hemoglobin (Bld) [Mass/Vol] 12.1 g/dL Low 13.0 - 17.0 g/dL [facility] Immature granulocytes (Bld) [#/Vol] 0.06 10*3/uL [facility] Immature granulocytes/100 WBC (Bld) 0.6 % [facility] Interpretation and review of laboratory results Abnormal [facility] Lymphocytes (Bld) [#/Vol] 1.1 10*3/uL [facility] Lymphocytes/100 WBC (Bld) 11.9 % [facility] MCH (RBC) [Entitic mass] 28.7 pg 26.0 - 34.0 pg [facility] MCHC (RBC) [Mass/Vol] 30.8 g/dL 30.5 - 36.0 g/dL [facility] MCV (RBC) [Entitic vol] 93.3 fL 80.0 - 100.0 fL [facility] Monocytes (Bld) [#/Vol] 0.84 10*3/uL [facility] Monocytes/100 WBC (Bld) 9.1 % [facility] Neutrophils (Bld) [#/Vol] 6.89 10*3/uL [facility] Neutrophils/100 WBC (Bld) 74.5 % [facility] Nucleated RBC (Bld) [#/Vol] [facility] Nucleated RBC/100 WBC (Bld) [Ratio] [facility] Platelet mean volume (Bld) [Entitic vol] 9 fL 9.0 - 12.7 fL [facility] Platelets (Bld) [#/Vol] 230 10*3/uL [facility] RBC (Bld) [#/Vol] 4.21 10*6/uL 4.20 - 6.0 0 m/uL [facility] WBC (Bld) [#/Vol] 9.25 10*3/uL [facility] Basophils (Bld) [#/Vol] 0.03 10*3/uL Normal <0.11 [facility] Comment on above: Order Comment: Speci men Type: BLOOD SPECIMENOrdering Facility: [facility] Address: [address] [place] [address] Performed By: #### 5 7021-8 ####[facility] LABCLIA [id number] [place] [address] [place] Basophils/100 WBC (Bld) 0.3 % Normal [facility] Comment on above: Order Comment: Speci men Type: BLOOD SPECIMENOrdering Facility: [facility] Address: [address] [place] [address] Performed By: #### 5 7021-8 ####[facility] LABCLIA [id number] [facility] [place] [address] [place] Differential cell count method Nom (Bld) Auto Normal [facility] Comment on above: Order Comment: Speci men Type: BLOOD SPECIMENOrdering Facility: [facility] Address: [address] [place] [address] Performed By: #### 5 7021-8 ####[facility] LABCLIA [id number] [facility] [place] [address] [place] Eosinophils (Bld) [#/Vol] 0.33 10*3/uL Normal <0.46 [facility] Comment on above: Order Comment: Speci men Type: BLOOD SPECIMENOrdering Facility: [facility] Address: [address] [place] [address] Performed By: #### 5 7021-8 ####[facility] LABCLIA [id number] [place] [address] [place] Eosinophils/100 WBC (Bld) 3.6 % Normal [facility] Comment on above: Order Comment: Speci men Type: BLOOD SPECIMENOrdering Facility: [facility] Address: [address] [place] [address] Performed By: #### 5 7021-8 ####[facility] LABCLIA [id number] [facility] [place] [address] [place] Erythrocyte distribution width (RBC) [Ratio] 15.4 % High 11.5-15.0 [facility] Comment on above: Order Comment: Speci men Type: BLOOD SPECIMENOrdering Facility: [facility] Address: [address] [place] [address] Performed By: #### 5 7021-8 ####[facility] LABCLIA [id number] [facility] [place] [address] [place] Hematocrit (Bld) [Volume fraction] 39.3 % Normal 39.0-51.0 [facility] Comment on above: Order Comment: Speci men Type: BLOOD SPECIMENOrdering Facility: [facility] Address: [address] [place] [address] Performed By: #### 5 7021-8 ####[facility] LABCLIA [id number] [facility] [place] [address] [place] Hemoglobin (Bld) [Mass/Vol] 12.1 g/dL Low 13.0-17.0 [facility] Comment on above: Order Comment: Speci men Type: BLOOD SPECIMENOrdering Facility: [facility] Address: [address] [place] [address] Performed By: #### 5 7021-8 ####[facility] LABCLIA [id number] [facility] [place] [address] [place] Immature granulocytes (Bld) [#/Vol] 0.06 10*3/uL Normal <0.10 [facility] Comment on above: Order Comment: Speci men Type: BLOOD SPECIMENOrdering Facility: [facility] Address: [address] [place] [address] Performed By: #### 5 7021-8 ####[facility] LABCLIA [id number] [place] [address] [facility] [place]LINE Immature granulocytes/100 WBC (Bld) 0.6 % Normal [facility] Comment on above: Order Comment: Speci men Type: BLOOD SPECIMENOrdering Facility: [facility] Address: [address] [place] [address] Performed By: #### 5 7021-8 ####[facility] LABCLIA [id number] [address] Lymphocytes (Bld) [#/Vol] 1.10 10*3/uL Normal 1.00-4.00 [facility] Comment on above: Order Comment: Speci men Type: BLOOD SPECIMENOrdering Facility: [facility] Address: [address] [place] [address] Performed By: #### 5 7021-8 ####[facility] LABCLIA [id number] [address] Lymphocytes/100 WBC (Bld) 11.9 % Normal [facility] Comment on above: Order Comment: Speci men Type: BLOOD SPECIMENOrdering Facility: [facility] Address: [address] [place] [address] Performed By: #### 5 7021-8 ####[facility] LABCLIA [id number] [place], [place] [id number] [place] [address] [place] MCH (RBC) [Entitic mass] 28.7 pg Normal 26.0-34.0 [facility] Comment on above: Order Comment: Speci men Type: BLOOD SPECIMENOrdering Facility: [facility] Address: [address] [place] [address] Performed By: #### 5 7021-8 ####[facility] LABCLIA [id number] [address] OF [place] MCHC (RBC) [Mass/Vol] 30.8 g/dL Normal 30.5-36.0 [facility] Comment on above: Order Comment: Speci men Type: BLOOD SPECIMENOrdering Facility: [facility] Address: [address] [place] [address] Performed By: #### 5 7021-8 ####[facility] LABCLIA [id number] [place] [id number] [place] MCV (RBC) [Entitic vol] 93.3 fL Normal 80.0-100.0 [facility] Comment on above: Order Comment: Speci men Type: BLOOD SPECIMENOrdering Facility: [facility] Address: [address] [place] [address] Performed By: #### 5 7021-8 ####[facility] LABCLIA [id number] [facility] [place] [address] [place] Monocytes (Bld) [#/Vol] 0.84 10*3/uL Normal <0.87 [facility] Comment on above: Order Comment: Speci men Type: BLOOD SPECIMENOrdering Facility: [facility] Address: [address] [place] [address] Performed By: #### 5 7021-8 ####[facility] LABCLIA [id number] [place] [address] [place] Monocytes/100 WBC (Bld) 9.1 % Normal [facility] Comment on above: Order Comment: Speci men Type: BLOOD SPECIMENOrdering Facility: [facility] Address: [address] [place] [address] Performed By: #### 5 7021-8 ####[facility] LABCLIA [id number] [facility] [place] [address] [place] Neutrophils (Bld) [#/Vol] 6.89 10*3/uL Normal 1.45-7.50 [facility] Comment on above: Order Comment: Speci men Type: BLOOD SPECIMENOrdering Facility: [facility] Address: [address] [place] [address] Performed By: #### 5 7021-8 ####[facility] LABCLIA [id number] [place] [address] [place] Neutrophils/100 WBC (Bld) 74.5 % Normal [facility] Comment on above: Order Comment: Speci men Type: BLOOD SPECIMENOrdering Facility: [facility] Address: [address] [place] [address] Performed By: #### 5 7021-8 ####[facility] LABCLIA [id number] [facility] [place] [address] [place] Nucleated RBC (Bld) [#/Vol] Normal [facility] Comment on above: Order Comment: Speci men Type: BLOOD SPECIMENOrdering Facility: [facility] Address: [address] [place] [address] Performed By: #### 5 7021-8 ####[facility] LABCLIA [id number] [facility] [place] [address] [place] Nucleated RBC/100 WBC (Bld) [Ratio] Normal [facility] Comment on above: Order Comment: Speci men Type: BLOOD SPECIMENOrdering Facility: [facility] Address: [address] [place] [address] Performed By: #### 5 7021-8 ####[facility] LABCLIA [id number] [facility] [place] [address] [place] Platelet mean volume (Bld) [Entitic vol] 9.0 fL Normal 9.0-12.7 [facility] Comment on above: Order Comment: Speci men Type: BLOOD SPECIMENOrdering Facility: [facility] Address: [address] [place] [address] Performed By: #### 5 7021-8 ####[facility] LABCLIA [id number] [facility] [place] [address] [place] Platelets (Bld) [#/Vol] 230 10*3/uL Normal 150-400 [facility] Comment on above: Order Comment: Speci men Type: BLOOD SPECIMENOrdering Facility: [facility] Address: [address] [place] [address] Performed By: #### 5 7021-8 ####[facility] LABCLIA [id number] [facility] [place] [address] [place] RBC (Bld) [#/Vol] 4.21 10*6/uL Normal 4.20-6.00 [facility] Comment on above: Order Comment: Speci men Type: BLOOD SPECIMENOrdering Facility: [facility] Address: [address] [place] [address] Performed By: #### 5 7021-8 ####[facility] LABCLIA [id number] [place] [address] [facility] WBC (Bld) [#/Vol] 9.25 10*3/uL Normal 3.70-11.00 [facility] Comment on above: Order Comment: Speci men Type: BLOOD SPECIMENOrdering Facility: [facility] Address: [address] [place] [id number] Performed By: #### 5 7021-8 ####[facility] LABCLIA [id number] [place] [address] [facility] CNOVon 11-10-2024 CNOV Office Visit (AGFAMP LE) ----- MARS PETERSON ([id number]) 1955 M [facility] Date Time Provider Department 11/10/24 3:20 PM ALMA GILL During your visit today, we recorded the following information about you: Temperature Pulse Respiration Blood pressure 97.7 degrees 68/minute 16/minute 124/78 Alma Gill, WINDOWS SECURITY ENGINEER.[facility] 11/15/2024 5:42 PM Signed CHIEF COMPLAINT: John Peterson is a 69-year-old male with a history of interstitial lung disease, presenting for follow-up after recent hospitalization for pneumonia and sepsis, accompanied by his who is providing history on his behalf. I reviewed past medical, surgical, social, and family histories today and updated chart. Allergies, chronic medications, and supplements were also reviewed. Recording using Holla@Me software for draft documentation of the visit was discussed with the patient/authorized registration representative; all questions welcomed and answered. Patient/authorized registration representative agreed to proceed Pneumonia and Sepsis: [...] had his Imuran recently increased by his second shift supervisor but has had no other recent changes to his medications that he knows of. Socially, the patient denies nicotine use, alcohol use, or recreational drug use. Furthermore he denies headache, changes in his vision/hearing, trouble swallowing, chest pain, shortness of breath, abdominal pain, constipation/hematochezia , urinary changes, new numbness/tingling, or new swelling. In the [place] ED the patient was found to be [...] is being transferred to hospital medicine at [place] for further workup and management of his sepsis of unknown origin. The patient was treated for pneumonia and possible colitis. His MRSA nasal was positive for which with his interstitial lung disease he (more content not included)... Normal [facility] Comprehensive metabolic 2000 panelon 11-10-2024 Albumin [Mass/Vol] 3.7 g/dL Low 3.9 - 4.9 g/dL [facility] ALP [Catalytic activity/Vol] 56 U/L 38 - 113 U/L [facility] ALT With P-5'-P [Catalytic activity/Vol] 18 U/L 10 - 54 U/L [facility] Anion gap [Moles/Vol] 9 mmol/L 8 - 15 mmol/L [facility] AST With P-5'-P [Catalytic activity/Vol] 24 U/L 14 - 40 U/L [facility] Bilirubin [Mass/Vol] 0.4 mg/dL 0.2 - 1 .3 mg/dL [facility] Calcium [Mass/Vol] 8.8 mg/dL 8.5 - 10. 2 mg/dL [facility] Chloride [Moles/Vol] 93 mmol/L Low 98 - 10 7 mmol/L [facility] CO2 [Moles/Vol] 28 mmol/L 22 - 30 mmol/L [facility] Creatinine [Mass/Vol] 0.86 mg/dL 0.73 - 1.22 mg/dL [facility] GFR/1.73 sq M.predicted among non-blacks MDRD (S/P/Bld) [Vol rate/Area] 93 mL/min/{1.73_m2} - PINF [facility] Comment on above: Estimated Glomerular Filtration Rate [...] [Mass/Vol] 88 mg/dL 74 - 99 mg/dL [facility] Comment on above: The [place] Diabete s Association (ADA) provides guidance for [...] Standards of Medical Care in Diabetes 2016, [place] Diabetes Association. Diabetes Care. 2016.39(Suppl 1). Interpretation and review of laboratory results Abnormal [facility] Potassium [Moles/Vol] 5.1 mmol/L 3.7 - 5.1 mmol/L [facility] Protein [Mass/Vol] 6.6 g/dL 6.3 - 8.0 g/dL [facility] Sodium [Moles/Vol] 130 mmol/L Low 136 - 144 mmol/L [facility] Urea nitrogen [Mass/Vol] 7 mg/dL Low 9 - 24 mg/dL [facility] Albumin [Mass/Vol] 3.7 g/dL Low 3.9-4.9 [facility] Comment on above: Order Comment: Speci men Type: BLOOD SPECIMENOrdering Facility: [facility] Address: [address] [place] [address] Performed By: #### 2 4323-8 ####[facility] LABCLIA [id number] [place] [address] [place] ALP [Catalytic activity/Vol] 56 U/L Normal 38-113 [facility] Comment on above: Order Comment: Speci men Type: BLOOD SPECIMENOrdering Facility: [facility] Address: [address] [place] [address] Performed By: #### 2 4323-8 ####[facility] LABCLIA [id number] [place] [address] [place] ALT With P-5'-P [Catalytic activity/Vol] 18 U/L Normal 10-54 [facility] Comment on above: Order Comment: Speci men Type: BLOOD SPECIMENOrdering Facility: [facility] Address: [address] [place] [address] Performed By: #### 2 4323-8 ####[facility] LABCLIA [id number] [facility] [place] [address] [place] Anion gap [Moles/Vol] 9 mmol/L Normal 8-15 [facility] Comment on above: Order Comment: Speci men Type: BLOOD SPECIMENOrdering Facility: [facility] Address: [address] [place] [address] Performed By: #### 2 4323-8 ####[facility] LABCLIA [id number] [place] [address] [place] AST With P-5'-P [Catalytic activity/Vol] 24 U/L Normal 14-40 [facility] Comment on above: Order Comment: Speci men Type: BLOOD SPECIMENOrdering Facility: [facility] Address: [address] [place] [address] Performed By: #### 2 4323-8 ####[facility] LABCLIA [id number] [place] [address] [place] Bilirubin [Mass/Vol] 0.4 mg/dL Normal 0.2-1.3 [facility] Comment on above: Order Comment: Speci men Type: BLOOD SPECIMENOrdering Facility: [facility] Address: [address] [place] [address] Performed By: #### 2 4323-8 ####[facility] LABCLIA [id number] [place] [address] [place] Calcium [Mass/Vol] 8.8 mg/dL Normal 8.5-10.2 [facility] Comment on above: Order Comment: Speci men Type: BLOOD SPECIMENOrdering Facility: [facility] Address: [address] [place] [address] Performed By: #### 2 4323-8 ####[facility] LABCLIA [id number] [facility] [place] [address] [place] Chloride [Moles/Vol] 93 mmol/L Low 98-107 [facility] Comment on above: Order Comment: Speci men Type: BLOOD SPECIMENOrdering Facility: [facility] Address: [address] [place] [address] Performed By: #### 2 4323-8 ####[facility] LABCLIA [id number] [facility] [place] [address] [place] CO2 [Moles/Vol] 28 mmol/L Normal 22-30 [facility] Comment on above: Order Comment: Speci men Type: BLOOD SPECIMENOrdering Facility: [facility] Address: [address] [place] [address] Performed By: #### 2 4323-8 ####[facility] LABCLIA [id number] [facility] [place] [address] [place] Creatinine [Mass/Vol] 0.86 mg/dL Normal 0.73-1.22 [facility] Comment on above: Order Comment: Speci men Type: BLOOD SPECIMENOrdering Facility: [facility] Address: [address] [place] [address] Performed By: #### 2 4323-8 ####[facility] [employer] LABCLIA [id number] [place] [address] [place] Creatinine and Glomerular filtration rate.predicted panel (S/P/Bld) 93 mL/min/1.73m??? Normal >=60 [facility] Comment on above: Order Comment: Elgin egan Type: BLOOD SPECIMENOrdering Facility: [facility] Address: [address] [place] [address] Result Comment: Tamika mated Glomerular Filtration Rate [...] actual GFR. Performed By: #### 2 4323-8 ####[facility] [employer] [id number] [place] [id number] [place] Glucose [Mass/Vol] 88 mg/dL Normal 74-99 [facility] Comment on above: Order Comment: Elgin egan Type: BLOOD SPECIMENOrdering Facility: [facility] Address: [address] [place] [address] Result Comment: The [place] Diabetes Association (ADA) provides guidance for cutoff [...] Standards of Medical Care in Diabetes 2016, [place] Diabetes Association. Diabetes Care. 2016.39(Suppl 1). Performed By: #### 2 4323-8 ####[facility] LABCLIA [id number] [place] [address] [place] [facility] Potassium [Moles/Vol] 5.1 mmol/L Normal 3.7-5.1 [facility] Comment on above: Order Comment: Speci men Type: BLOOD SPECIMENOrdering Facility: [facility] Address: [address] [place] [address] Performed By: #### 2 4323-8 ####[facility] LABCLIA [id number] [place] [id number] [facility] Protein [Mass/Vol] 6.6 g/dL Normal 6.3-8.0 [facility] Comment on above: Order Comment: Speci men Type: BLOOD SPECIMENOrdering Facility: [facility] Address: [address] [place] [address] Performed By: #### 2 4323-8 ####[facility] LABCLIA [id number] [address] Sodium [Moles/Vol] 130 mmol/L Low 136-144 [facility] Comment on above: Order Comment: Speci men Type: BLOOD SPECIMENOrdering Facility: [facility] Address: [address] [place] [address] Performed By: #### 2 4323-8 ####[facility] LABCLIA [id number] [address] Urea nitrogen [Mass/Vol] 7 mg/dL Low 9-24 [facility] Comment on above: Order Comment: Speci men Type: BLOOD SPECIMENOrdering Facility: [facility] Address: [address] [place] [address] Performed By: #### 2 4323-8 ####[facility] LABCLIA [id number] [address] Yamileth 11-09-2024 DIMITRI Telephone (MUKESH) ----- PETERSONMARS ([id number]) 1955 M DEF Date Time Provider Department 11/09/24 WICHO ALMAMASSIEL MAYORGA During your visit today, we recorded the following information about you: Priya Pedersen MA 11/09/2024 8:14 AM Signed Form received from [facility] placed on signing tray VANNA Rojas [...] heart failure (HCC*11/23/2021 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*11/23/2021 CVA (cerebral vascular accident) ([facility]) [I63.9] 11/23/2021 11/20/2022 Neuropathy [G62.9] 11/23/2021 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] 11/23/2021 09/18/2023 Umbilical hernia [K42.9] 11/23/2021 Pressure injury of right buttock, stage 2 ([facility])*02/01/2022 09/18/2023 Pressure injury of left buttock, stage 2 ([facility]) *02/01/2022 09/18/2023 Chest pain [R07.9] 02/01/2022 10/12/2024 Essential tremor [G25.0] 02/01/2022 Anxiety and depression [F41.9, F32.A] 02/01/2022 SOB (shortness of breath) [R06.02] 02/15/2022 10/12/2024 Impaired fasting glucose [R73.01] 06/04/2022 Mixed hyperlipidemia [E78.2] 06/04/2022 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 Normal [facility] EVANSN Telephone (MUKESH) ----- MARS PETERSON ([id number]) 1955 M DEF Date Time Provider Department 11/09/24 ALMA GILL During your visit today, we recorded the following information about you: Precious Lacy MA 11/09/2024 3:49 PM Signed [place] physical therapist with [facility] left message stating he saw patient today for recertification and plans to see patient twice a week for 3 weeks then once a week for 4 weeks. Requesting verbal okay for plan of care. States when calling back okay to leave message. Please advise. VANNA Silveira Brittny A, TAY.[facility] 11/09/2024 5:53 PM Signed Verbal order given. Suzanne Almaguer MA 11/10/2024 7:30 AM Signed Royer given verbal order. Suzanne Almaguer MA Allergies As [...] heart failure (HCC*11/23/2021 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*11/23/2021 CVA (cerebral vascular accident) (HCC) [I63.9] 11/23/2021 11/20/2022 Neuropathy [G62.9] 11/23/2021 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] 11/23/2021 09/18/2023 Umbilical hernia [...] 06/04/2022 Hyponatremia (more content not included)... Normal [facility] CBC W Auto Differential pane l (Bld)on 11-02-2024 Basophils (Bld) [#/Vol] 0.04 10*3/uL Normal <0.11 [facility] Comment on above: Order Comment: Speci men Type: BLOOD SPECIMENOrdering Facility: External Submitter Address: , , Performed By: #### 5 7021-8 ####[facility] LABCLIA [id number] [facility] [address] [place] [address] [place] Basophils/100 WBC (Bld) 0.5 % Normal [facility] Comment on above: Order Comment: Speci men Type: BLOOD SPECIMENOrdering Facility: External Submitter Address: , , Performed By: #### 5 7021-8 ####[facility] LABCLIA [id number] [address] [place] [address] [place] Differential cell count method Nom (Bld) Auto Normal [facility] Comment on above: Order Comment: Speci men Type: BLOOD SPECIMENOrdering Facility: External Submitter Address: , , Performed By: #### 5 7021-8 ####[facility] LABCLIA [id number] [address], [place] [id number] [place] [address] [place] Eosinophils (Bld) [#/Vol] 0.30 10*3/uL Normal <0.46 [facility] Comment on above: Order Comment: Speci men Type: BLOOD SPECIMENOrdering Facility: External Submitter Address: , , Performed By: #### 5 7021-8 ####[facility] LABCLIA [id number] [address], [address] Eosinophils/100 WBC (Bld) 3.9 % Normal [facility] Comment on above: Order Comment: Speci men Type: BLOOD SPECIMENOrdering Facility: External Submitter Address: , , Performed By: #### 5 7021-8 ####[facility] LABCLIA [id number] [address] [place] [address] [place] Erythrocyte distribution width (RBC) [Ratio] 15.7 % High 11.5-15.0 [facility] Comment on above: Order Comment: Speci men Type: BLOOD SPECIMENOrdering Facility: External Submitter Address: , , Performed By: #### 5 7021-8 ####[facility] LABCLIA [id number] [address], [facility] Hematocrit (Bld) [Volume fraction] 39.5 % Normal 39.0-51.0 [facility] Comment on above: Order Comment: Speci men Type: BLOOD SPECIMENOrdering Facility: External Submitter Address: , , Performed By: #### 5 7021-8 ####[facility] LABCLIA [id number] [address] [place] [address] [facility] Hemoglobin (Bld) [Mass/Vol] 12.1 g/dL Low 13.0-17.0 [facility] Comment on above: Order Comment: Speci men Type: BLOOD SPECIMENOrdering Facility: External Submitter Address: , , Performed By: #### 5 7021-8 ####[facility] LABCLIA [id number] [address], [address] Immature granulocytes (Bld) [#/Vol] 0.06 10*3/uL Normal <0.10 [facility] Comment on above: Order Comment: Speci men Type: BLOOD SPECIMENOrdering Facility: External Submitter Address: , , Performed By: #### 5 7021-8 ####[facility] LABCLIA [id number] [address], [address] Immature granulocytes/100 WBC (Bld) 0.8 % Normal [facility] Comment on above: Order Comment: Speci men Type: BLOOD SPECIMENOrdering Facility: External Submitter Address: , , Performed By: #### 5 7021-8 ####[facility] LABCLIA [id number] [address], [facility] Lymphocytes (Bld) [#/Vol] 1.85 10*3/uL Normal 1.00-4.00 [facility] Comment on above: Order Comment: Speci men Type: BLOOD SPECIMENOrdering Facility: External Submitter Address: , , Performed By: #### 5 7021-8 ####[facility] LABCLIA [id number] [facility] [address] Lymphocytes/100 WBC (Bld) 23.8 % Normal [facility] Comment on above: Order Comment: Speci men Type: BLOOD SPECIMENOrdering Facility: External Submitter Address: , , Performed By: #### 5 7021-8 ####[facility] LABCLIA [id number] [address] [place] [address] [place] MCH (RBC) [Entitic mass] 28.3 pg Normal 26.0-34.0 [facility] Comment on above: Order Comment: Speci men Type: BLOOD SPECIMENOrdering Facility: External Submitter Address: , , Performed By: #### 5 7021-8 ####[facility] LABIA [id number] [address], [address] STATES [facility] MCHC (RBC) [Mass/Vol] 30.6 g/dL Normal 30.5-36.0 [facility] Comment on above: Order Comment: Speci men Type: BLOOD SPECIMENOrdering Facility: External Submitter Address: , , Performed By: #### 5 7021-8 ####[facility] LABIA [id number] [address] MCV (RBC) [Entitic vol] 92.3 fL Normal 80.0-100.0 [facility] Comment on above: Order Comment: Speci men Type: BLOOD SPECIMENOrdering Facility: External Submitter Address: , , Performed By: #### 5 7021-8 ####[facility] LABIA [id number] [address], [address] STATES [facility] Monocytes (Bld) [#/Vol] 0.90 10*3/uL High <0.87 [facility] Comment on above: Order Comment: Speci men Type: BLOOD SPECIMENOrdering Facility: External Submitter Address: , , Performed By: #### 5 7021-8 ####[facility] LABIA [id number] [address] [place] [address] [place] Monocytes/100 WBC (Bld) 11.6 % Normal [facility] Comment on above: Order Comment: Speci men Type: BLOOD SPECIMENOrdering Facility: External Submitter Address: , , Performed By: #### 5 7021-8 ####[facility] LABCLIA [id number] [facility] [address] [place] [address] [place] Neutrophils (Bld) [#/Vol] 4.63 10*3/uL Normal 1.45-7.50 [facility] Comment on above: Order Comment: Speci men Type: BLOOD SPECIMENOrdering Facility: External Submitter Address: , , Performed By: #### 5 7021-8 ####[facility] LABCLIA [id number] [address] [place] [address] [place] [facility] Neutrophils/100 WBC (Bld) 59.4 % Normal [facility] Comment on above: Order Comment: Speci men Type: BLOOD SPECIMENOrdering Facility: External Submitter Address: , , Performed By: #### 5 7021-8 ####[facility] LABCLIA [id number] [address] [place] [address] [place] Nucleated RBC (Bld) [#/Vol] 10*3/uL Normal <0.01 [facility] Comment on above: Order Comment: Speci men Type: BLOOD SPECIMENOrdering Facility: External Submitter Address: , , Performed By: #### 5 7021-8 ####[facility] LABCLIA [id number] [facility] [address] [place] [address] [place] Nucleated RBC/100 WBC (Bld) [Ratio] 0.0 /100 WBC Normal [facility] Comment on above: Order Comment: Speci men Type: BLOOD SPECIMENOrdering Facility: External Submitter Address: , , Performed By: #### 5 7021-8 ####[facility] LABCLIA [id number] [facility] [address] [place] [address] [place] Platelet mean volume (Bld) [Entitic vol] 9.1 fL Normal 9.0-12.7 [facility] Comment on above: Order Comment: Speci men Type: BLOOD SPECIMENOrdering Facility: External Submitter Address: , , Performed By: #### 5 7021-8 ####[facility] LABCLIA [id number] [address] [place] [address] [place] Platelets (Bld) [#/Vol] 259 10*3/uL Normal 150-400 [facility] Comment on above: Order Comment: Speci men Type: BLOOD SPECIMENOrdering Facility: External Submitter Address: , , Performed By: #### 5 7021-8 ####[facility] LABCLIA [id number] [address], [address] [place] RBC (Bld) [#/Vol] 4.28 10*6/uL Normal 4.20-6.00 [facility] Comment on above: Order Comment: Speci men Type: BLOOD SPECIMENOrdering Facility: External Submitter Address: , , Performed By: #### 5 7021-8 ####[facility] LABCLIA [id number] [address] [place] WBC (Bld) [#/Vol] 7.78 10*3/uL Normal 3.70-11.00 [facility] Comment on above: Order Comment: Speci men Type: BLOOD SPECIMENOrdering Facility: External Submitter Address: , , Performed By: #### 5 7021-8 ####[facility] LABCLIA [id number] [address] [place] [address] [facility] OF [place] Yamileth 11-02-2024 DIMITRI Telephone (MUKESH) ----- MARS PETERSON ([id number]) 1955 M DEF Date Time Provider Department 11/02/24 ALMA GILL During your visit today, we recorded the following information about you: Priya Pedersen MA 11/02/2024 7:43 AM Signed Form [facility] placed on signing tray VANNA Rojas Brittny A, APRN.[facility] 11/02/2024 10:10 AM Signed Form signed. Please [...] heart failure (HCC*11/23/2021 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*11/23/2021 CVA (cerebral vascular accident) [...] 08/08/2022 AZRA (acute kidney injury) ([facility]) [N17.9] 08/10/202201/15 (more content not included)... Normal [facility] CNPN Normal [facility] Comprehensive metabolic 2000 panelon 11-02-2024 ALP [Catalytic activity/Vol] 56 U/L Normal 38-113 [facility] Comment on above: Order Comment: Speci men Type: BLOOD SPECIMENOrdering Facility: External Submitter Address: , , Performed By: #### 2 1340-6, 60628-6 ####[facility] LABCLIA [id number] [place] [id number], [place] [address] [place] ALT [Catalytic activity/Vol] 16 U/L Normal 10-54 [facility] Comment on above: Order Comment: Speci men Type: BLOOD SPECIMENOrdering Facility: External Submitter Address: , , Performed By: #### 2 4362-6, ####[facility] LABCLIA [id number] [place] [address] [id number], [place] [address] [place] AST [Catalytic activity/Vol] 20 U/L Normal 14-40 [facility] Comment on above: Order Comment: Speci men Type: BLOOD SPECIMENOrdering Facility: External Submitter Address: , , Performed By: #### 2 4362-6, ####[facility] LABCLIA [id number] [facility] [address] [place] [address] [place] Bilirubin [Mass/Vol] 0.3 mg/dL Normal 0.2-1.3 [facility] Comment on above: Order Comment: Speci men Type: BLOOD SPECIMENOrdering Facility: External Submitter Address: , , Performed By: #### 2 4362-6, ####[facility] LABCLIA [id number] [facility] [address] [place] [address] [place] Protein [Mass/Vol] 6.0 g/dL Low 6.3-8.0 [facility] Comment on above: Order Comment: Speci men Type: BLOOD SPECIMENOrdering Facility: External Submitter Address: , , Performed By: #### 2 4362-6, ####[facility] LABCLIA [id number] [facility] [address] [place] [address] [place] Renal Func 2000 Pnl SerPlon 11-02-2024 Albumin [Mass/Vol] 3.5 g/dL Low 3.9-4.9 [facility] Comment on above: Order Comment: Speci men Type: BLOOD SPECIMENOrdering Facility: External Submitter Address: , , Performed By: #### 2 436-6, ####[facility] LABCLIA [id number] [employer] [facility] [id number], [place] [address] [place] Anion gap [Moles/Vol] 13 mmol/L Normal 8-15 [facility] Comment on above: Order Comment: Speci men Type: BLOOD SPECIMENOrdering Facility: External Submitter Address: , , Performed By: #### 2 4361-, ####[facility] LABCLIA [id number] [facility] [id number], [place] [address] [place] Calcium [Mass/Vol] 8.8 mg/dL Normal 8.5-10.2 [facility] Comment on above: Order Comment: Speci men Type: BLOOD SPECIMENOrdering Facility: External Submitter Address: , , Performed By: #### 2 4361-10, ####[facility] LABCLIA [id number] [employer] [facility] [address] [place] [address] [place] Chloride [Moles/Vol] 92 mmol/L Low 98-107 [facility] Comment on above: Order Comment: Speci men Type: BLOOD SPECIMENOrdering Facility: External Submitter Address: , , Performed By: #### 2 4361-10, ####[facility] LABCLIA [id number] [employer] [facility] [address] [place] [address] [place] CO2 [Moles/Vol] 23 mmol/L Normal 22-30 [facility] Comment on above: Order Comment: Speci men Type: BLOOD SPECIMENOrdering Facility: External Submitter Address: , , Performed By: #### 2 436-, ####[facility] LABCLIA [id number] [facility] [address] [place] [address] [place] Creatinine [Mass/Vol] 0.88 mg/dL Normal 0.73-1.22 [facility] Comment on above: Order Comment: Speci men Type: BLOOD SPECIMENOrdering Facility: External Submitter Address: , , Performed By: #### 2 4362-6, 73012-7 ####[facility] LABCLIA [id number] [place] [address] [place] Creatinine and Glomerular filtration rate.predicted panel (S/P/Bld) 92 mL/min/1.73m??? Normal >=60 [facility] Comment on above: Order Comment: Elgin [...] actual GFR. Performed By: #### 2 4362-6, 84604-4 ####[facility] LABCLIA [id number] [place] [address] [place] Glucose [Mass/Vol] 110 mg/dL High 74-99 [facility] Comment on above: Order Comment: [place] jignesh Type: BLOOD SPECIMENOrdering Facility: External Submitter Address: , , Result Comment: The [place] Diabetes Association (ADA) provides guidance for cutoff [...] Standards of Medical Care in Diabetes 2016, [place] [employer]. Diabetes Care. 2016.39(Suppl 1). Performed By: #### 2 4362-6, 50772-2 ####[facility] LABCLIA [id number] [address] [address] [place] Potassium [Moles/Vol] 4.5 mmol/L Normal 3.7-5.1 [facility] Comment on above: Order Comment: Speci men Type: BLOOD SPECIMENOrdering Facility: External Submitter Address: , , Performed By: #### 2 4362-6, ####[facility] LABIA [id number] [place] [address] [place] Sodium [Moles/Vol] 128 mmol/L Low 136-144 [facility] Comment on above: Order Comment: Speci men Type: BLOOD SPECIMENOrdering Facility: External Submitter Address: , , Performed By: #### 2 4362-6, ####[facility]BR[facility] [id number] [place] [address] [place] Urea nitrogen [Mass/Vol] 9 mg/dL Normal 9-24 [facility] Comment on above: Order Comment: Speci men Type: BLOOD SPECIMENOrdering Facility: External Submitter Address: , , Performed By: #### 2 4362-6, ####[facility] LABIA [id number] [place] [address] [place] Renal function 2000 panelon 11-02-2024 Phosphate [Mass/Vol] 3.3 mg/dL Normal 2.7-4.8 [facility] Comment on above: Order Comment: Speci men Type: BLOOD SPECIMENOrdering Facility: External Submitter Address: , , Performed By: #### 2 4362-6, ####[facility] LABIA [id number] [place] [address] [place] CNOVon 10-29-2024 CNOV Normal [facility] CNPNon 10-29-2024 CNPN Telephone (MUKESH) ----- MARS PETERSON ([id number]) 1955 M DEF Date Time Provider Department 10/29/24 ALMA GILL During your visit today, we recorded the following information about you: Priya Pedersen MA 10/29/2024 1:20 PM Signed Form received from [facility] Order: [id number] placed on signing tray VANNA Rojas Brittny A, APRN.[facility] 11/02/2024 10:09 AM Signed Form signed. Please [...] Fully Assessed Reason for Visit: Electronic Communication [720] Forms [913] Prescriptions as of 11/02/2024 - [...] heart failure (HCC*11/23/2021 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*11/23/2021 CVA (cerebral vascular accident) (HCC) [I63.9] 11/23/2021 11/20/2022 Neuropathy [G62.9] 11/23/2021 Osteomyelitis of foot (HCC) [M86.9] 11/23/2021 09/18/2023 Umbilical hernia [K42.9] 11/23/2021 Pressure injury of right buttock, stage 2 ([facility])*02/01/2022 09/18/2023 Pressure injury of left buttock, stage 2 ([facility]) *02/01/2022 09/18/2023 Chest pain [R07.9] 02/01/2022 10/12/2024 Essential tremor [G25.0] 02/01/2022 Anxiety and depression [F41.9, F32.A] 02/01/2022 SOB (shortness of breath) [R06.02] 02/15/2022 10/12/2024 Impaired fasting glucose [R73.01] 06/04/2022 Mixed hyperlipidemia [E78.2] 06/04/2022 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 Normal [facility] CNOVon 10-21-2024 CNOV Office Visit (AGHWW1 ) ----- MARS PETERSON ([id number]) 1955 M DEF Date Time Provider Department 10/21/24 9:45 AM BAER HIDALGO AGHWW1 During your visit today, we [...] Date CHF (congestive heart failure) ([facility]) Chronic low back pain COPD (chronic obstructive pulmonary disease) ([facility]) Coronary artery disease 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 DJD (degenerative joint disease) Essential hypertension Heart attack ([facility]) 1999 States his previous subsea engineer told him he had a heart attack based on EKG (in [place]) ILD (interstitial lung disease) (HCC) Neuropathy Osteomyelitis [...] fluticasone (FLONA (more content not included)... Normal [facility] XR Hand - right PA and Later [...] fracture position when compared to previous imaging. [facility] Radiology Study observation (narrative) [facility] CNDSon 10-16-2024 CN HNO ID: [id number] Author: AGUSTÍN HERNÁNDEZ MD Service: Hospital Medicine [...] Consulting: Gm Johnson MD Primary Service: , [facility] Consulting: Francisco Holloway MD MY CONDITION [...] Principal Problem (Resolved): Sepsis due to pneumonia (HCC) Active Problems: ILD (interstitial lung disease) (HCC) Chronic respiratory failure with hypoxia (HCC) Former smoker Essential hypertension Peripheral vascular disease Chronic diastolic congestive heart failure (HCC) 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 Temp (24hrs), Av ?C (98.6 ?F), Min:36.7 ?C (98.1 ?F), Max:37.3 ?C (99.1 ?F) GENERAL APPEARANCE: Alert, NAD, obese, chronically ill appearing SKIN: No rashes NECK: Supple BACK: no CVAT. (more content not included)... Normal [facility] Basic metabolic 2000 panelon 10-15-2024 Anion gap [Moles/Vol] 15 mmol/L Normal 8-15 [facility] Comment on above: Order Comment: Elgin egan Type: BLOOD SPECIMEN Ordering Facility: [facility] Address: [address] [place] [address] Performed By: #### 2 4321-2 #### [facility] CLIA [id number] [address] [place] [address] [place] Calcium [Mass/Vol] 8.3 mg/dL Low 8.5-10.2 [facility] Comment on above: Order Comment: Elgin egan Type: BLOOD SPECIMEN Ordering Facility: [facility] Address: [address] [place] [address] Performed By: #### 2 4321-2 #### [facility] CLIA [id number] [address] [place] [address] [place] Chloride [Moles/Vol] 95 mmol/L Low 98-107 [facility] Comment on above: Order Comment: Elgin egan Type: BLOOD SPECIMEN Ordering Facility: [facility] Address: [address] [place] [address] Performed By: #### 2 4321-2 #### [facility] CLIA [id number] [address] [place] [address] [place] CO2 [Moles/Vol] 24 mmol/L Normal 22-30 [facility] Comment on above: Order Comment: Elgin egan Type: BLOOD SPECIMEN Ordering Facility: [facility] Address: [address] [place] [address] Performed By: #### 2 4321-2 #### [facility] CLIA [id number] [address] [place] Creatinine [Mass/Vol] 1.00 mg/dL Normal 0.73-1.22 [facility] Comment on above: Order Comment: [place] egan Type: BLOOD SPECIMEN Ordering Facility: [facility] Address: [address] [place] [address] Performed By: #### 2 4321-2 #### [facility] CLIA [id number] [address] Creatinine and Glomerular filtration rate.predicted panel (S/P/Bld) 80 mL/min/1.73m??? Normal >=60 [facility] Comment on above: Order Comment: [place] egan Type: BLOOD SPECIMEN Ordering Facility: [facility] Address: [address] [place] [address] Result Comment: Tamika mated Glomerular Filtration Rate [...] #### 2 4321-2 #### [facility] CLIA [id number] [address] [place] Glucose [Mass/Vol] 94 mg/dL Normal 74-99 [facility] Comment on above: Order Comment: Elgni egan Type: BLOOD SPECIMEN Ordering Facility: [facility] Address: [address] [place] [address] Result Comment: The [place] Diabetes Association (ADA) provides guidance for cutoff [...] Standards of Medical Care in Diabetes 2016, [place] [employer]. Diabetes Care. 2016.39(Suppl 1). Performed By: #### 2 4321-2 #### [facility] CLIA [id number] [address] [place] [address] [place] Potassium [Moles/Vol] 3.1 mmol/L Low 3.7-5.1 [facility] Comment on above: Order Comment: Elgin egan Type: BLOOD SPECIMEN Ordering Facility: [facility] Address: [address] [place] [address] Performed By: #### 2 4321-2 #### [facility] CLIA [id number] [address] [place] [address] [place] Sodium [Moles/Vol] 134 mmol/L Low 136-144 [facility] Comment on above: Order Comment: Elgin egan Type: BLOOD SPECIMEN Ordering Facility: [facility] Address: [address] [place] [address] Performed By: #### 2 4321-2 #### [facility] CLIA [id number] [address] [place] [address] [place] Urea nitrogen [Mass/Vol] 15 mg/dL Normal 9-24 [facility] Comment on above: Order Comment: Elgin egan Type: BLOOD SPECIMEN Ordering Facility: [facility] Address: [facility] [place] [address] Performed By: #### 2 4321-2 #### [facility] CLIA [id number] [address] [place] [address] [place] CBC panel Auto (Bld)on 10-15 Erythrocyte distribution width (RBC) [Ratio] 14.7 % Normal 11.5-15.0 [facility] Comment on above: Order Comment: Speci men Type: BLOOD SPECIMEN Ordering Facility: [facility] Address: [address] [place] [address] Performed By: #### 5 8410-2 #### [facility] CLIA [id number] [address] Hematocrit (Bld) [Volume fraction] 39.0 % Normal 39.0-51.0 [facility] Comment on above: Order Comment: Speci men Type: BLOOD SPECIMEN Ordering Facility: [facility] Address: [address] [place] [address] Performed By: #### 5 8410-2 #### [facility] CLIA [id number] [address] Hemoglobin (Bld) [Mass/Vol] 12.4 g/dL Low 13.0-17.0 [facility] Comment on above: Order Comment: Speci men Type: BLOOD SPECIMEN Ordering Facility: [facility] Address: [address] [place] [address] Performed By: #### 5 8410-2 #### [facility] CLIA [id number] [address] MCH (RBC) [Entitic mass] 28.3 pg Normal 26.0-34.0 [facility] Comment on above: Order Comment: Speci men Type: BLOOD SPECIMEN Ordering Facility: [facility] Address: [address] [place] [address] Performed By: #### 5 8410-2 #### [facility] CLIA [id number] [address] MCHC (RBC) [Mass/Vol] 31.8 g/dL Normal 30.5-36.0 [facility] Comment on above: Order Comment: Speci men Type: BLOOD SPECIMEN Ordering Facility: [facility] Address: [address] [place] [address] Performed By: #### 5 8410-2 #### [facility] CLIA [id number] [address] [place] [address] [place] MCV (RBC) [Entitic vol] 89.0 fL Normal 80.0-100.0 [facility] Comment on above: Order Comment: Speci men Type: BLOOD SPECIMEN Ordering Facility: [facility] Address: [address] [place] [address] Performed By: #### 5 8410-2 #### [facility] CLIA [id number] [address] [place] Nucleated RBC (Bld) [#/Vol] 10*3/uL Normal <0.01 [facility] Comment on above: Order Comment: Speci men Type: BLOOD SPECIMEN Ordering Facility: [facility] Address: [address] [place] [address] Performed By: #### 5 8410-2 #### [facility] CLIA [id number] [address] [place] Platelet mean volume (Bld) [Entitic vol] 8.8 fL Low 9.0-12.7 [facility] Comment on above: Order Comment: Speci men Type: BLOOD SPECIMEN Ordering Facility: [facility] Address: [address] [place] [address] Performed By: #### 5 8410-2 #### [facility] CLIA [id number] [address] [place] Platelets (Bld) [#/Vol] 194 10*3/uL Normal 150-400 [facility] Comment on above: Order Comment: Speci men Type: BLOOD SPECIMEN Ordering Facility: [facility] Address: [address] [place] [address] Performed By: #### 5 8410-2 #### [facility] CLIA [id number] [address] [place] [address] [place] RBC (Bld) [#/Vol] 4.38 10*6/uL Normal 4.20-6.00 [facility] Comment on above: Order Comment: Speci men Type: BLOOD SPECIMEN Ordering Facility: [facility] Address: [address] [place] [address] Performed By: #### 5 8410-2 #### [facility] CLIA [id number] [address] [place] [id number] [facility] [place] WBC (Bld) [#/Vol] 8.44 10*3/uL Normal 3.70-11.00 [facility] Comment on above: Order Comment: Speci men Type: BLOOD SPECIMEN Ordering Facility: [facility] Address: [address] [place] [address] Performed By: #### 5 8410-2 #### [facility] CLIA [id number] [address] [place] [id number] [facility] [place] CONSULT PROGon 10-15-2024 CONSULT PROG HNO ID: [id number] Author: GM JOHNSON MD Service: Infectious Disease [...] Date Noted: 11/23/2021 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 [facility] THERAPY NT 10-15-2024 THERAPY NT HNO ID: [id number] Author: LIZ LANG OT/L Service: ? Author Type: Occupational Therapist Type: Therapy (PT/OT/Speech/Resp) Filed: 10/15/2024 14:36 Note Text: ----- Summary: OT Missed Visit ----- OCCUPATIONAL THERAPY MISSED VISIT SERVICE DATE: 10/15/2024 SERVICE TIME: 1429 ROOM: [place] [address] Patient not seen due to Declined to Participate. Patient reports increasing back pain, declining OOB activity until he is medicated and able to participate -- RN aware of need for meds. Will re-attempt as able. SIGNATURE: ANGUS Mchugh PATIENT NAME: Mars Peterson DATE: October 15, 2024 TIME: 2:35 PM [facility] THERAPY NT HNO ID: [id number] Author: IBAN SEGURA, PT Service: Physical Therapy Author Type: Physical Therapist Type: Therapy (PT/OT/Speech/Resp) Filed: 10/15/2024 14:15 Note Text: ----- Summary: PT evaluation ----- Physical Therapy Evaluation Summary SERVICE DATE: 10/15/2024 SERVICE TIME: 1139 to 1207 ROOM: [id number] PT 6 Clicks Score: 17 DISCHARGE RECOMMENDATIONS [...] HTN, CHF, PVD, CAD, OM, neuropathy, DJD, NE, CABG, COPD, ILD HOME LIVING Patient Lives [...] Grab Bars- Toilet, Lift Chair, Pulse Ox, Supervisor Corduroy Cutting, Elevated Toilet Seat, Home Oxygen 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 Active with [facility] PT. >2 but less than 5 falls in the last 6 months. Indep with med management. Indep with ADL tasks. Spouse assist with IADL tasks. SUBJECTIVE Patient resting in bed upon approach. Alert and agreeable to PT evaluation. THERAPY DIAGNOSIS Reduced mobility-other, Muscle Weakness (generalized) TREATMENT INTERVENTIONS Evaluation, Therapeutic Activity (07115), Gait Training (07117) Timed Code Treatment (minutes): 13 Skilled Treatment Time (minutes): 28 $ Evaluation-Low (74377) Billed Units: 1 unit Therapeutic Activity (20083) Treatment Minutes: 11 $ Therapeutic Activity (37229) Billed Units: 1 unit Gait Training (43697) Treatment Minutes: 2 $ Gait Training (13090) Billed Units: 0 units TRAINING AND EDUCATION [...] Guard As (more content not included)... Normal [facility] Basic metabolic 2000 panelon 10-14-2024 Anion gap [Moles/Vol] 12 mmol/L Normal 8-15 [facility] Comment on above: Order Comment: Speci men Type: BLOOD SPECIMEN Ordering Facility: [facility] Address: [address] [place] [address] Performed By: #### 2 4321-2 #### [facility] CLIA [id number] [address] [place] [address] [place] Calcium [Mass/Vol] 8.5 mg/dL Normal 8.5-10.2 [facility] Comment on above: Order Comment: Speci men Type: BLOOD SPECIMEN Ordering Facility: [facility] Address: [address] [place] [address] Performed By: #### 2 4321-2 #### [facility] CLIA [id number] [address] [place] [address] [place] Chloride [Moles/Vol] 91 mmol/L Low 98-107 [facility] Comment on above: Order Comment: Speci men Type: BLOOD SPECIMEN Ordering Facility: [facility] Address: [address] [place] [address] Performed By: #### 2 4321-2 #### [facility] CLIA [id number] [address] [place] [address] [place] CO2 [Moles/Vol] 28 mmol/L Normal 22-30 [facility] Comment on above: Order Comment: Speci men Type: BLOOD SPECIMEN Ordering Facility: [facility] Address: [address] [place] [address] Performed By: #### 2 4321-2 #### [facility] CLIA [id number] [address] [place] [address] [place] Creatinine [Mass/Vol] 1.13 mg/dL Normal 0.73-1.22 [facility] Comment on above: Order Comment: Speci men Type: BLOOD SPECIMEN Ordering Facility: [facility] Address: [address] [place] [address] Performed By: #### 2 4321-2 #### [facility] CLIA [id number] [address] [place] [address] [place] Creatinine and Glomerular filtration rate.predicted panel (S/P/Bld) 69 mL/min/1.73m??? Normal >=60 [facility] Comment on above: Order Comment: Elgin egan Type: BLOOD SPECIMEN Ordering Facility: [facility] Address: [address] [place] [id number] Result Comment: Tamika mated Glomerular Filtration Rate [...] GFR. Performed By: #### 2 4321-2 #### [facility] CLIA [id number] [address] [place] [address] [place] Glucose [Mass/Vol] 146 mg/dL High 74-99 [facility] Comment on above: Order Comment: Elgin egan Type: BLOOD SPECIMEN Ordering Facility: [facility] Address: [address] [place] [address] Result Comment: The [place] Diabetes [employer] (ADA) provides guidance for cutoff [...] Standards of Medical Care in Diabetes 2016, [place] [employer]. Diabetes Care. 2016.39(Suppl 1). Performed By: #### 2 4321-2 #### [facility] CLIA [id number] [address] [place] [address] [place] Potassium [Moles/Vol] 3.2 mmol/L Low 3.7-5.1 [facility] Comment on above: Order Comment: Elgin egan Type: BLOOD SPECIMEN Ordering Facility: [facility] Address: [address] [place] [id number] Performed By: #### 2 4321-2 #### [facility] CLIA [id number] [address] STATES [facility] Sodium [Moles/Vol] 131 mmol/L Low 136-144 [facility] Comment on above: Order Comment: Speci men Type: BLOOD SPECIMEN Ordering Facility: [facility] Address: [address] [place] [address] Performed By: #### 2 4321-2 #### [facility] CLIA [id number] [address] [place] Urea nitrogen [Mass/Vol] 16 mg/dL Normal 9-24 [facility] Comment on above: Order Comment: Speci men Type: BLOOD SPECIMEN Ordering Facility: [facility] Address: [address] [place] [address] Performed By: #### 2 4321-2 #### [facility] CLIA [id number] [address] CBC panel Auto (Bld)on 10-14 Erythrocyte distribution width (RBC) [Ratio] 14.7 % Normal 11.5-15.0 [facility] Comment on above: Order Comment: Speci men Type: BLOOD SPECIMEN Ordering Facility: [facility] Address: [address] [place] [address] Performed By: #### 1 988-5, HSTNT, 32221-1 #### [facility] CLIA [id number] [address] [place] Hematocrit (Bld) [Volume fraction] 36.6 % Low 39.0-51.0 [facility] Comment on above: Order Comment: Speci men Type: BLOOD SPECIMEN Ordering Facility: [facility] Address: [address] [place] [address] Performed By: #### 1 988-5, HSTNT, 48219-3 #### [facility] CLIA [id number] [address] [place] Hemoglobin (Bld) [Mass/Vol] 11.7 g/dL Low 13.0-17.0 [facility] Comment on above: Order Comment: Speci men Type: BLOOD SPECIMEN Ordering Facility: [facility] Address: [address] [place] [address] Performed By: #### 1 988-5, HSTNT, 73704-3 #### [facility] CLIA [id number] [address] MCH (RBC) [Entitic mass] 28.7 pg Normal 26.0-34.0 [facility] Comment on above: Order Comment: Speci men Type: BLOOD SPECIMEN Ordering Facility: [facility] Address: [address] [place] [address] Performed By: #### 1 988-5, HSTNT, 60140-1 #### [facility] CLIA [id number] [address] MCHC (RBC) [Mass/Vol] 32.0 g/dL Normal 30.5-36.0 [facility] Comment on above: Order Comment: Speci men Type: BLOOD SPECIMEN Ordering Facility: [facility] Address: [address] [place] [address] Performed By: #### 1 988-5, HSTNT, 75440-6 #### [facility] CLIA [id number] [address] [place] MCV (RBC) [Entitic vol] 89.7 fL Normal 80.0-100.0 [facility] Comment on above: Order Comment: Speci men Type: BLOOD SPECIMEN Ordering Facility: [facility] Address: [address] [place] [address] Performed By: #### 1 988-5, HSTNT, 15262-3 #### [facility] CLIA [id number] [address] Nucleated RBC (Bld) [#/Vol] 10*3/uL Normal <0.01 [facility] Comment on above: Order Comment: Speci men Type: BLOOD SPECIMEN Ordering Facility: [facility] Address: [address] [place] [address] Performed By: #### 1 988-5, HSTNT, 46975-4 #### [facility] CLIA [id number] [address] [place] [address] [place] Platelet mean volume (Bld) [Entitic vol] 8.8 fL Low 9.0-12.7 [facility] Comment on above: Order Comment: Speci men Type: BLOOD SPECIMEN Ordering Facility: [facility] Address: [address] [place] [address] Performed By: #### 1 988-5, HSTNT, 97551-7 #### [facility] CLIA [id number] [address] [place] [address] [place] Platelets (Bld) [#/Vol] 200 10*3/uL Normal 150-400 [facility] Comment on above: Order Comment: Speci men Type: BLOOD SPECIMEN Ordering Facility: [facility] Address: [address] [place] [address] Performed By: #### 1 988-5, HSTNT, 00209-1 #### [facility] CLIA [id number] [address] [place] [address] [place] RBC (Bld) [#/Vol] 4.08 10*6/uL Low 4.20-6.00 [facility] Comment on above: Order Comment: Speci men Type: BLOOD SPECIMEN Ordering Facility: [facility] Address: [address] [place] [address] Performed By: #### 1 988-5, HSTNT, 12180-0 #### [facility] CLIA [id number] [address] [place] [address] [place] WBC (Bld) [#/Vol] 9.72 10*3/uL Normal 3.70-11.00 [facility] Comment on above: Order Comment: Speci men Type: BLOOD SPECIMEN Ordering Facility: [facility] Address: [address] [place] [address] Performed By: #### 1 988-5, HSTNT, 98016-2 #### [facility] CLIA [id number] [address] OF [facility] CONSULT PROGon 10-14-2024 CONSULT PROG HNO ID: [id number] Author: KOJO AWAN RPh Service: Pharmacy Author [...] any questions or concerns. 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 Date Noted: 11/23/2021 Neuropathy Date Noted: 11/23/2021 Anxiety and depression Date Noted: 02/01/2022 S/P CABG x 4 Date Noted: 06/04/2022 Hyponatremia Date Noted: 06/04/2022 Bilateral carotid artery stenosis Date Noted: 01/29/2023 Chronic GERD Date Noted: 06/20/2023 ILD (interstitial lung disease) ([facility]) Date Noted: 09/09/2023 Chronic respiratory failure with hypoxia (HCC) Date Noted: 10/12/2024 Fever Date Noted: 10/13/2024 Immunocompromised patient (HCC) Date Noted: 10/13/2024 Former smoker Date Noted: 10/13/2024 ASSESSMENT: Sepsis (HCC) (POA: Yes) Essential hypertension (POA: Yes) Peripheral vascular disease (POA: Yes) Obesity, Class II, BMI 35-39.9 (POA: Yes) Status post below knee amputation of right lower extremity (HCC) (POA: Yes) Chronic diastolic congestive heart failure (HCC) (POA: Yes) 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 Temp (24hrs), Av ?C (98.6 ?F), Min:36.7 ?C (98.1 ?F), Max:37.3 ?C (99.1 ?F) GENERAL APPEARANCE: Alert, NAD, obese, chronically ill appearing SKIN: No rashes NECK: Supple BACK: no CVAT. LUNGS: Clear HEART: Regular rate/rhythm, normal heart sounds, and no murmurs. ABDOMEN: Soft, no (more content not included)... [facility] ALLIED HEALTHon 10-13-2024 ALLIED HEALTH HNO ID: [id number] Author: ELEANOR BAL CT Service: Radiology Author Type: Technologist Type: Allied Health Filed: 10/13/2024 09:50 Note Text: Radiology [...] PATIENT PRESENTS WITH AN IMPLANTABLE OR ATTACHED RN ACUTE: No RADIOLOGY DEPARTMENT: CT; Exam(s) Completed: Chest PERIPHERAL IV DATA: Inpatient: see LDA documentation SIGNED BY: KERVIN Schultz October 13, 2024 9:50 AM [facility] Basic metabolic 2000 panelon 10-13-2024 Anion gap [Moles/Vol] 17 mmol/L High 8-15 [facility] Comment on above: Order Comment: Elgin egan Type: BLOOD SPECIMEN Ordering Facility: [facility] Address: [address] [place] [address] Performed By: #### 2 4321-2, HSTNT #### [facility] CLIA [id number] [address] [place] [address] [place] Calcium [Mass/Vol] 8.4 mg/dL Low 8.5-10.2 [facility] Comment on above: Order Comment: Elgin egan Type: BLOOD SPECIMEN Ordering Facility: [facility] Address: [address] [place] [address] Performed By: #### 2 4321-2, HSTNT #### [facility] CLIA [id number] [address] [place] [address] [place] Chloride [Moles/Vol] 89 mmol/L Low 98-107 [facility] Comment on above: Order Comment: Elgin eagn Type: BLOOD SPECIMEN Ordering Facility: [facility] Address: [address] [place] [address] Performed By: #### 2 4321-2, HSTNT #### [facility] CLIA [id number] [address] [place] [address] [place] CO2 [Moles/Vol] 24 mmol/L Normal 22-30 [facility] Comment on above: Order Comment: Isadorai men Type: BLOOD SPECIMEN Ordering Facility: [facility] Address: [address] [place] [address] Performed By: #### 2 4321-2, HSTNT #### [facility] CLIA [id number] [address] Creatinine [Mass/Vol] 1.05 mg/dL Normal 0.73-1.22 [facility] Comment on above: Order Comment: Elgin egan Type: BLOOD SPECIMEN Ordering Facility: [facility] Address: [address] [place] [address] Performed By: #### 2 4321-2, HSTNT #### [facility] CLIA [id number] [address] Creatinine and Glomerular filtration rate.predicted panel (S/P/Bld) 76 mL/min/1.73m??? Normal >=60 [facility] Comment on above: Order Comment: Elgin egan Type: BLOOD SPECIMEN Ordering Facility: [facility] Address: [address] [place] [address] Result Comment: Tamika mated Glomerular Filtration Rate [...] Performed By: #### 2 4321-2, HSTNT #### [facility] CLIA [id number] [address] [place] Glucose [Mass/Vol] 158 mg/dL High 74-99 [facility] Comment on above: Order Comment: Elgin egan Type: BLOOD SPECIMEN Ordering Facility: [facility] Address: [address] [id number] Result Comment: The [place] [employer] (ADA) provides guidance for cutoff [...] Standards of Medical Care in Diabetes 2016, [place] [employer]. Diabetes Care. 2016.39(Suppl 1). Performed By: #### 2 4321-2, HSTNT #### [facility] CLIA [id number] [address] [place] [address] [place] Potassium [Moles/Vol] 3.6 mmol/L Low 3.7-5.1 [facility] Comment on above: Order Comment: Elgin egan Type: BLOOD SPECIMEN Ordering Facility: [facility] Address: [address] [place] [address] Performed By: #### 2 4321-2, HSTNT #### [facility] CLIA [id number] [address] [place] [address] [place] Sodium [Moles/Vol] 130 mmol/L Low 136-144 [facility] Comment on above: Order Comment: Elgin egan Type: BLOOD SPECIMEN Ordering Facility: [facility] Address: [address] [id number] Performed By: #### 2 4321-2, HSTNT #### [facility] CLIA [id number] [address] [place] [address] [place] Urea nitrogen [Mass/Vol] 14 mg/dL Normal 9-24 [facility] Comment on above: Order Comment: Elgin egan Type: BLOOD SPECIMEN Ordering Facility: [facility] Address: [address] [place] [address] Performed By: #### 2 4321-2, HSTNT #### [facility] CLIA [id number] [address] C diff Tox gens Stl Ql EVELIO+p robeon 10-13-2024 C. difficile toxin genes EVELIO+probe Ql (Stl) Negative Normal Negative for C. difficile toxin by PCR [facility] Comment on above: Order Comment: Speci men Type: BLOOD SPECIMEN Ordering Facility: [facility] Address: [address] [place] [address] Performed By: #### 1 988-5, HSTNT, 63634-4 #### [facility] CLIA [id number] [address] OF [facility] CBC panel Auto (Bld)on 10-13 Erythrocyte distribution width (RBC) [Ratio] 14.8 % Normal 11.5-15.0 [facility] Comment on above: Order Comment: Speci men Type: BLOOD SPECIMEN Ordering Facility: [facility] Address: [address] [place] [address] Performed By: #### 1 988-5, HSTNT, 25145-6 #### [facility] CLIA [id number] [address] [place] Hematocrit (Bld) [Volume fraction] 39.4 % Normal 39.0-51.0 [facility] Comment on above: Order Comment: Speci men Type: BLOOD SPECIMEN Ordering Facility: [facility] Address: [address] [place] [address] Performed By: #### 1 988-5, HSTNT, 61840-7 #### [facility] CLIA [id number] [address] [place] Hemoglobin (Bld) [Mass/Vol] 12.6 g/dL Low 13.0-17.0 [facility] Comment on above: Order Comment: Speci men Type: BLOOD SPECIMEN Ordering Facility: [facility] Address: [address] [place] [address] Performed By: #### 1 988-5, HSTNT, 47780-6 #### [facility] CLIA [id number] [address] MCH (RBC) [Entitic mass] 28.4 pg Normal 26.0-34.0 [facility] Comment on above: Order Comment: Speci men Type: BLOOD SPECIMEN Ordering Facility: [facility] Address: [address] [place] [address] Performed By: #### 1 988-5, HSTNT, 79408-0 #### [facility] CLIA [id number] [address] MCHC (RBC) [Mass/Vol] 32.0 g/dL Normal 30.5-36.0 [facility] Comment on above: Order Comment: Speci men Type: BLOOD SPECIMEN Ordering Facility: [facility] Address: [address] [place] [address] Performed By: #### 1 988-5, HSTNT, 91128-1 #### [facility] CLIA [id number] [address] MCV (RBC) [Entitic vol] 88.7 fL Normal 80.0-100.0 [facility] Comment on above: Order Comment: Speci men Type: BLOOD SPECIMEN Ordering Facility: [facility] Address: [address] [place] [address] Performed By: #### 1 988-5, HSTNT, 38877-8 #### [facility] CLIA [id number] [address] Nucleated RBC (Bld) [#/Vol] 10*3/uL Normal <0.01 [facility] Comment on above: Order Comment: Speci men Type: BLOOD SPECIMEN Ordering Facility: [facility] Address: [address] [place] [address] Performed By: #### 1 988-5, HSTNT, 17051-1 #### [facility] CLIA [id number] [address] Platelet mean volume (Bld) [Entitic vol] 9.3 fL Normal 9.0-12.7 [facility] Comment on above: Order Comment: Speci men Type: BLOOD SPECIMEN Ordering Facility: [facility] Address: [address] [place] [address] Performed By: #### 1 988-5, HSTNT, 36723-9 #### [facility] CLIA [id number] [address] OF [facility] Platelets (Bld) [#/Vol] 192 10*3/uL Normal 150-400 [facility] Comment on above: Order Comment: Speci men Type: BLOOD SPECIMEN Ordering Facility: [facility] Address: [address] [place] [address] Performed By: #### 1 988-5, HSTNT, 67096-9 #### [facility] CLIA [id number] [address] OF [place] RBC (Bld) [#/Vol] 4.44 10*6/uL Normal 4.20-6.00 [facility] Comment on above: Order Comment: Speci men Type: BLOOD SPECIMEN Ordering Facility: [facility] Address: [address] [place] [address] Performed By: #### 1 988-5, HSTNT, 48047-5 #### [facility] CLIA [id number] [address] OF [facility] WBC (Bld) [#/Vol] 13.38 10*3/uL High 3.70-11.00 [facility] Comment on above: Order Comment: Speci men Type: BLOOD SPECIMEN Ordering Facility: [facility] Address: [address] [place] [address] Performed By: #### 1 988-5, HSTNT, 66272-1 #### [facility] CLIA [id number] [address] OF [facility] Yamileth 10-13-2024 CNPN Telephone (AGPOB1) ----- MARS PETERSON ([id number]) 1955 M DEF Date Time Provider Department 10/13/24 SANDRA HUMMEL During your visit today, we recorded the following information about you: Alicia Arauz 10/13/2024 11:53 AM Signed ----- Message from Ami Hugo sent at 10/13/2024 11:31 AM EDT ----- Regarding: Orthopdics/ [ACACIA Hidalgo]/ [Questions about Cast] Subject Line Format: Orthopedics / [Provider Name or Open AND Body Part] / [Issue] Patient has been identified by [...] to if cast can be removed by [facility] on 10/14. Patients spouse stated they are [...] than patient: Patients SpouseIvania Best contact number: [phone] Thank you, Ami Agee October 13, 2024 [...] - Fully Assessed Reason for Visit: Question [1006] Cmt: calling to see if cast can be taken of by [facility] Prescriptions as of 10/13/2024 - traZODone (DESYREL) [...] by mouth once daily. - Blood-Glucose Sensor (SDNsquareSTYLE ROSA 3 PLUS SENSOR) chata 1 device [...] 1 capsul (more content not included)... Normal [facility] CONSULTon 10-13-2024 CONSULT HNO ID: [id number] Author: FRANCISCO HOLLOWAY MD Service: Pulmonary Disease [...] holding azathioprine, will reach out to patient's second shift supervisor Dr. Simon. Continue broad-spectrum antibiotics. 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 [facility] CONSULT HNO ID: [id number] Author: GM JOHNSON MD Service: Infectious Disease [...] who presents with feeling unwell. In the [place] ED the patient was found to be [...] is being transferred to hospital medicine at [place] for further workup and management of his sepsis of unknown origin. 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 Normal [facility] CT CHEST WO IVCONon 10-14-[address] CHEST WO IVCON * * *Final Report* * * DATE OF EXAM: Oct 13 2024 9:51AM [facility] 0541 - CT CHEST WO IVCON / [...] cardiomegaly. Gallbladder stones. Dilated large bowel loop. 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: WENCESLAO Transcribe Date/Time: Oct 13 2024 10:40A Dictated by : HALLEY EM MD This examination was interpreted and the report reviewed and electronically signed by: HALLEY EM MD on Oct 13 2024 11:01AM EST [id number] Normal [facility] Gastrointestinal pathogens i dentified EVELIO+probe Nom (Stl)on 10-13-2024 Campylobacter sp DNA EVELIO+probe Nom (Unsp spec) Not detected Normal Not Detected [facility] Comment on above: Order Comment: Speci men Type: STOOL SPECIMEN Ordering Facility: [facility] Address: [address] [place] [address] Performed By: #### 7 9390-1 #### [facility] CLIA [id number] [address] [place] [address] [place] Salmonella sp DNA EVELIO+probe Ql (Unsp spec) Not detected Normal Not Detected [facility] Comment on above: Order Comment: Speci men Type: STOOL SPECIMEN Ordering Facility: [facility] Address: [address] [place] [address] Performed By: #### 7 9390-1 #### [facility] CLIA [id number] [address] [place] [address] [place] Shiga toxin stx gene EVELIO+probe Nom (Unsp spec) Not detected Normal Not Detected [facility] Comment on above: Order Comment: Speci men Type: STOOL SPECIMEN Ordering Facility: [facility] Address: [address] [place] [address] Performed By: #### 7 9390-1 #### [facility] CLIA [id number] [address] [place] [address] [place] Shigella sp DNA EVELIO+probe Ql (Unsp spec) Not detected Normal Not Detected [facility] Comment on above: Order Comment: Speci men Type: STOOL SPECIMEN Ordering Facility: [facility] Address: [address] [place] [address] Performed By: #### 7 9390-1 #### [facility] CLIA [id number] [address] [place] [address] [place] HIGH SENSITIVITY TROPONIN To n 10-13-2024 Troponin T.cardiac High sensitivity method [Mass/Vol] 21 ng/L High <12 [facility] Comment on above: Order Comment: Speci men Type: BLOOD SPECIMEN Ordering Facility: [facility] Address: [address] [place] [address] Performed By: #### 2 4321-2, HSTNT #### [facility] CLIA [id number] [address] [place] [address] [place] Troponin T.cardiac High sensitivity method [Mass/Vol] 21 ng/L High <12 [facility] Comment on above: Order Comment: Speci [facility] Type: BLOOD SPECIMEN Ordering Facility: [facility] Address: [address] [place] [address] Performed By: #### H STNT #### [facility] CLIA [id number] [address] [place] [address] [place] Legionella Ag Ur Qlon 2024 Legionella sp Ag Ql (U) Negative Normal Negative [facility] Comment on above: Order Comment: Specjimmy [facility] Type: STOOL SPECIMEN Ordering Facility: [facility] Address: [address] [place] [address] Result Comment: Legi onella urinary antigen test is used as an aid in diagnosis of infection with Legionella pneumophila serogroup 1. It may be detected from a few days to several months after onset of signs and symptoms despite antibiotic therapy or disease resolution. A negative result cannot exclude Legionellosis. Clinical correlation is required. Performed By: #### 7 9390-1 #### [facility] CLIA [id number] [address] [place] [address] [place] STAPHYLOCOCCUS AUREUS AND MR SA SCREEN, PCR, NASALon 10-13-2024 S. aureus and MRSA panel EVELIO+probe (Nose) Methicillin-RESISTANT Staphylococcus aureus (MRSA) Detected Abnormal Not Detected [facility] Comment on above: Order Comment: [facility] Type: STOOL SPECIMEN Ordering Facility: [facility] Address: [address] [place] [address] Performed By: #### 7 9390-1 #### [facility] CLIA [id number] [address] [place] [address] [place] STREPTOCOCCUS PNEUMONIAE ANT IGEN URINEon 10-13-2024 STREPTOCOCCUS PNEUMONIAE ANTIGEN URINE STREP PNEUMO AG RESULT: Negative for Streptococcus pneumoniae antigen. Presumptive negative for pneumococcal pneumonia, suggesting no current or recent pneumococcal infection. Infection due to S.pneumoniae cannot be ruled out since the antigen present in the sample may be below the detection limit of the test. [facility] Comment on above: Performed By: #### 7 9390-1 #### [facility] CLIA [id number] [address] [place] [address] ALLIED HEALTHon 10-12-2024 ALLIED HEALTH HNO ID: [id number] Author: PRIYA JONES RT(R) Service: Radiology Author Type: Lab Asst Type: Allied Health Filed: 10/12/2024 17:51 Note [...] PATIENT PRESENTS WITH AN IMPLANTABLE OR ATTACHED RN ACUTE: No ALLERGIES: Reviewed and unchanged CONTRAST ALLERGY: [...] October 12, 2024 TIME: 5:51 PM Normal [facility] ALLIED HEALTH HNO ID: [id number] Author: ROSEMARY SAMS RT([facility]) Service: ? Author [...] PATIENT PRESENTS WITH AN IMPLANTABLE OR ATTACHED RN ACUTE: No RADIOLOGY DEPARTMENT: General X-ray: Exam(s) Completed: Chest X-Ray PERIPHERAL IV DATA: Not applicable SIGNED BY: RT Hayder(R) October 12, 2024 5:33 PM Normal [facility] Bacteria Bld Culton 10-13-19 25 Bacteria identified Cx Nom (Bld) CULTURE, BLOOD: No growth 5 days Normal [facility] Comment on above: Performed By: #### 6 00-7 #### [facility] CLIA [id number] [address] STATES OF [facility] CBC W Auto Differential pane l (Bld)on 10-12-2024 Basophils (Bld) [#/Vol] 0.03 10*3/uL Normal <0.11 [facility] Comment on above: Order Comment: Speci men Type: BLOOD SPECIMENOrdering Facility: [facility] Address: [address] [place] [address] Performed By: #### 5 7021-8 ####[id number] [facility] [place] [address] [place] Basophils/100 WBC (Bld) 0.3 % Normal [facility] Comment on above: Order Comment: Speci men Type: BLOOD SPECIMENOrdering Facility: [facility] Address: [address] [place] [address] Performed By: #### 5 7021-8 ####[facility] [id number] [facility] [place] [address] [facility] Differential cell count method Nom (Bld) Auto Normal [facility] Comment on above: Order Comment: Speci men Type: BLOOD SPECIMENOrdering Facility: [facility] Address: [address] [place] [address] Performed By: #### 5 7021-8 ####[facility] [id number] [facility] [place] [address] [place] Eosinophils (Bld) [#/Vol] 0.18 10*3/uL Normal <0.46 [facility] Comment on above: Order Comment: Speci men Type: BLOOD SPECIMENOrdering Facility: [facility] Address: [address] [place] [address] Performed By: #### 5 7021-8 ####[facility] [id number] [facility] [place] [address] [facility] [place] Eosinophils/100 WBC (Bld) 1.5 % Normal [facility] Comment on above: Order Comment: Speci men Type: BLOOD SPECIMENOrdering Facility: [facility] Address: [address] [place] [address] Performed By: #### 5 7021-8 ####[facility] [id number] [facility] [place] [address] [place] Erythrocyte distribution width (RBC) [Ratio] 15.2 % High 11.5-15.0 [facility] Comment on above: Order Comment: Speci men Type: BLOOD SPECIMENOrdering Facility: [facility] Address: [address] [place] [address] Performed By: #### 5 7021-8 ####[facility] [id number] [place] [address] [facility] Hematocrit (Bld) [Volume fraction] 42.6 % Normal 39.0-51.0 [facility] Comment on above: Order Comment: Speci men Type: BLOOD SPECIMENOrdering Facility: [facility] Address: [address] [place] [address] Performed By: #### 5 7021-8 ####[facility] [place] LABCLIA [id number] [place] [address] [place] Hemoglobin (Bld) [Mass/Vol] 13.3 g/dL Normal 13.0-17.0 [facility] Comment on above: Order Comment: Speci men Type: BLOOD SPECIMENOrdering Facility: [facility] Address: [address] [place] [address] Performed By: #### 5 7021-8 ####[facility] [place] LABCLIA [id number] [place] [address] [place] Immature granulocytes (Bld) [#/Vol] 0.07 10*3/uL Normal <0.10 [facility] Comment on above: Order Comment: Speci men Type: BLOOD SPECIMENOrdering Facility: [facility] Address: [address] [place] [address] Performed By: #### 5 7021-8 ####[facility] [place] LABCLIA [id number] [place] [address] [facility] [place] Immature granulocytes/100 WBC (Bld) 0.6 % Normal [facility] Comment on above: Order Comment: Speci men Type: BLOOD SPECIMENOrdering Facility: [facility] Address: [address] [place] [address] Performed By: #### 5 7021-8 ####[facility] [place] LABCLIA [id number] [place] [address] [facility] Lymphocytes (Bld) [#/Vol] 0.45 10*3/uL Low 1.00-4.00 [facility] Comment on above: Order Comment: Speci men Type: BLOOD SPECIMENOrdering Facility: [facility] Address: [address] [place] [address] Performed By: #### 5 7021-8 ####[facility] LABCLIA [id number] [place] [id number] [facility] Lymphocytes/100 WBC (Bld) 3.8 % Normal [facility] Comment on above: Order Comment: Speci men Type: BLOOD SPECIMENOrdering Facility: [facility] Address: [address] [place] [address] Performed By: #### 5 7021-8 ####[facility] LABCLIA [id number] [address] MCH (RBC) [Entitic mass] 28.6 pg Normal 26.0-34.0 [facility] Comment on above: Order Comment: Speci men Type: BLOOD SPECIMENOrdering Facility: [facility] Address: [address] [place] [address] Performed By: #### 5 7021-8 ####[facility] LABCLIA [id number] [address] STATES OF [facility] MCHC (RBC) [Mass/Vol] 31.2 g/dL Normal 30.5-36.0 [facility] Comment on above: Order Comment: Speci men Type: BLOOD SPECIMENOrdering Facility: [facility] Address: [address] [place] [address] Performed By: #### 5 7021-8 ####[facility] LABCLIA [id number] [place] [id number] [facility] MCV (RBC) [Entitic vol] 91.6 fL Normal 80.0-100.0 [facility] Comment on above: Order Comment: Speci men Type: BLOOD SPECIMENOrdering Facility: [facility] Address: [address] [place] [address] Performed By: #### 5 7021-8 ####[facility] [place] LABCLIA [id number] [place] [address] [place] Monocytes (Bld) [#/Vol] 1.46 10*3/uL High <0.87 [facility] Comment on above: Order Comment: Speci men Type: BLOOD SPECIMENOrdering Facility: [facility] Address: [address] [place] [address] Performed By: #### 5 7021-8 ####[facility] [place] LABCLIA [id number] [place] [address] [place] Monocytes/100 WBC (Bld) 12.2 % Normal [facility] Comment on above: Order Comment: Speci men Type: BLOOD SPECIMENOrdering Facility: [facility] Address: [address] [place] [address] Performed By: #### 5 7021-8 ####[facility] [place] LABCLIA [id number] [place] [address] [place] Neutrophils (Bld) [#/Vol] 9.73 10*3/uL High 1.45-7.50 [facility] Comment on above: Order Comment: Speci men Type: BLOOD SPECIMENOrdering Facility: [facility] Address: [address] [place] [address] Performed By: #### 5 7021-8 ####[facility] LABCLIA [id number] [place] [address] [place] Neutrophils/100 WBC (Bld) 81.6 % Normal [facility] Comment on above: Order Comment: Speci men Type: BLOOD SPECIMENOrdering Facility: [facility] Address: [address] [place] [address] Performed By: #### 5 7021-8 ####[facility] [place] LABCLIA [id number] [place] [address] [place] Nucleated RBC (Bld) [#/Vol] Normal [facility] Comment on above: Order Comment: Speci men Type: BLOOD SPECIMENOrdering Facility: [facility] Address: [facility] [place] [address] Performed By: #### 5 7021-8 ####[facility] [place] LABCLIA [id number] [facility] [place] [address] [place] Nucleated RBC/100 WBC (Bld) [Ratio] Normal [facility] Comment on above: Order Comment: Speci men Type: BLOOD SPECIMENOrdering Facility: [facility] Address: [address] [place] [address] Performed By: #### 5 7021-8 ####[facility] [place] LABCLIA [id number] [facility] [place] [address] [place] Platelet mean volume (Bld) [Entitic vol] 9.1 fL Normal 9.0-12.7 [facility] Comment on above: Order Comment: Speci men Type: BLOOD SPECIMENOrdering Facility: [facility] Address: [address] [place] [address] Performed By: #### 5 7021-8 ####[facility] [place] LABCLIA [id number] [facility] [place] [address] [place] Platelets (Bld) [#/Vol] 235 10*3/uL Normal 150-400 [facility] Comment on above: Order Comment: Speci men Type: BLOOD SPECIMENOrdering Facility: [facility] Address: [address] [place] [address] Performed By: #### 5 7021-8 ####[facility] [place] LABCLIA [id number] [facility] [place] [address] [place] RBC (Bld) [#/Vol] 4.65 10*6/uL Normal 4.20-6.00 [facility] Comment on above: Order Comment: Speci men Type: BLOOD SPECIMENOrdering Facility: [facility] Address: [address] [place] [address] Performed By: #### 5 7021-8 ####[facility] [place] LABCLIA [id number] [place] [address] [place] WBC (Bld) [#/Vol] 11.92 10*3/uL High 3.70-11.00 [facility] Comment on above: Order Comment: Speci men Type: BLOOD SPECIMENOrdering Facility: [facility] Address: [place] [address] Performed By: #### 5 7021-8 ####[facility] LABCLIA [id number] [place] [address] [facility] CNPNon 10-12-2024 CNPN Telephone (DELIA) ----- MARS PETERSON ([id number]) 1955 M DEF Date Time Provider Department [...] Assessed Reason for Visit: Hospital To Hospital [[id number]] Prescriptions as of 10/12/2024 - traZODone (DESYREL) [...] heart failure (HCC*11/23/2021 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*11/23/2021 CVA (cerebral vascular accident) [...] 4 [Z95. (more content not included)... Normal [facility] CRP SerPl-mCncon 10-12-2024 CRP [Mass/Vol] 23.0 mg/dL High <0.9 [facility] Comment on above: Order Comment: Speci men Type: BLOOD SPECIMEN [facility] Address: [address] [place] [address] Performed By: #### 1 988-5, HSTNT, 80681-3 #### [facility] CLIA [id number] [address] [place], [place] [id number] [place] [address] [address] [facility] CT ABD/PEL W IVCONon 025 CT ABD/PEL W IVCON * * *Final Report* * * DATE OF EXAM: Oct 12 2024 5:51PM [facility] 0530 - CT ABD/PEL W IVCON / [...] colon/rectum possibly in the setting of colitis. 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: [facility] Transcribe Date/Time: Oct 12 2024 5:59P Dictated by : JASON JONES MD This examination was interpreted and the report reviewed and electronically signed by: JASON JONES MD on Oct 12 2024 6:07PM EST [id number] Normal [facility] Comprehensive metabolic 2000 panelon 10-12-2024 Albumin [Mass/Vol] 3.7 g/dL Low 3.9-4.9 [facility] Comment on above: Order Comment: Speci men Type: BLOOD SPECIMENOrdering Facility: [facility] Address: [address] [place] [address] [place] [address] Performed By: #### 3 040-3, 09532-0, 74232-5, 09949-4 ####[facility] [place] LABCLIA [id number] [place] [address] [place] ALP [Catalytic activity/Vol] 42 U/L Normal 38-113 [facility] Comment on above: Order Comment: Speci men Type: BLOOD SPECIMENOrdering Facility: [facility] Address: [address] [place] [address] Performed By: #### 3 040-3, 16698-6, 99795-5, 87191-1 ####[facility] [place] LABCLIA [id number] [place] [address] [place] ALT With P-5'-P [Catalytic activity/Vol] 11 U/L Normal 10-54 [facility] Comment on above: Order Comment: Speci men Type: BLOOD SPECIMENOrdering Facility: [facility] Address: [address] [place] [address] Performed By: #### 3 040-3, 22386-9, 84531-2, 69074-2 ####[facility] LABCLIA [id number] [facility] [place] [address] [place] Anion gap [Moles/Vol] 14 mmol/L Normal 8-15 [facility] Comment on above: Order Comment: Speci men Type: BLOOD SPECIMENOrdering Facility: [facility] Address: [address] [place] [address] Performed By: #### 3 040-3, 38580-7, 15783-1, 53850-9 ####[facility] LABCLIA [id number] [facility] [place] [address] [place] AST With P-5'-P [Catalytic activity/Vol] 17 U/L Normal 14-40 [facility] Comment on above: Order Comment: Speci men Type: BLOOD SPECIMENOrdering Facility: [facility] Address: [address] [place] [address] Performed By: #### 3 040-3, 92757-8, 14935-6, 46188-8 ####[facility] [place] LABCLIA [id number] [place] [address] [place] Bilirubin [Mass/Vol] 0.7 mg/dL Normal 0.2-1.3 [facility] Comment on above: Order Comment: Speci men Type: BLOOD SPECIMENOrdering Facility: [facility] Address: [address] [place] [address] Performed By: #### 3 040-3, 21535-9, 30161-7, 34521-5 ####[facility] [place] LABCLIA [id number] [place] [address] [place] Calcium [Mass/Vol] 8.9 mg/dL Normal 8.5-10.2 [facility] Comment on above: Order Comment: Speci men Type: BLOOD SPECIMENOrdering Facility: [facility] Address: [address] [place] [address] Performed By: #### 3 040-3, 48130-4, 65698-4, 92549-3 ####[facility] [place] LABCLIA [id number] [facility] [place] [address] [place] Chloride [Moles/Vol] 87 mmol/L Low 98-107 [facility] Comment on above: Order Comment: Speci men Type: BLOOD SPECIMENOrdering Facility: [facility] Address: [address] [place] [address] Performed By: #### 3 040-3, 15126-1, 37492-8, 37524-9 ####[facility] [place] LABCLIA [id number] [facility] [place] [address] [place] CO2 [Moles/Vol] 26 mmol/L Normal 22-30 [facility] Comment on above: Order Comment: Speci men Type: BLOOD SPECIMENOrdering Facility: [facility] Address: [address] [place], [place] [address] Performed By: #### 3 040-3, 12612-2, 37379-6, 61141-1 ####[facility] [place] LABCLIA [id number] [place] [address] [place] Creatinine [Mass/Vol] 1.53 mg/dL High 0.73-1.22 [facility] Comment on above: Order Comment: Speci men Type: BLOOD SPECIMENOrdering Facility: [facility] Address: [address] [place] [address] Performed By: #### 3 040-3, 70726-8, 89663-2, 27049-8 ####[facility] LABCLIA [id number] [place] [address] [place] Creatinine and Glomerular filtration rate.predicted panel (S/P/Bld) 48 mL/min/1.73m??? Low >=60 [facility] Comment on above: Order Comment: Elgin egan Type: BLOOD SPECIMENOrdering Facility: [facility] Address: [address] [place] [address] Result Comment: Tamika mated Glomerular Filtration Rate [...] actual GFR. Performed By: #### 3 040-3, 46280-6, 56123-4, 47076-1 ####[facility] LABCLIA [id number] [place] [address] [place] Glucose [Mass/Vol] 133 mg/dL High 74-99 [facility] Comment on above: Order Comment: [place] egan Type: BLOOD SPECIMENOrdering Facility: [facility] Address: [address] [place] [address] Result Comment: The [place] Diabetes Association (ADA) provides guidance for cutoff [...] Standards of Medical Care in Diabetes 2016, [place] [employer] Association. Diabetes Care. 2016.39(Suppl 1). Performed By: #### 3 040-3, 02849-6, 79997-8, 39080-7 ####[facility] [place] LABCLIA [id number] [place] [address] [place] Potassium [Moles/Vol] 4.3 mmol/L Normal 3.7-5.1 [facility] Comment on above: Order Comment: Speci men Type: BLOOD SPECIMENOrdering Facility: [facility] Address: [address] [place] [address] Performed By: #### 3 040-3, 19810-5, 35238-9, 81217-3 ####[facility] LABCLIA [id number] [place] [address] [place] Protein [Mass/Vol] 6.9 g/dL Normal 6.3-8.0 [facility] Comment on above: Order Comment: Speci men Type: BLOOD SPECIMENOrdering Facility: [facility] Address: [address] [place] [address] Performed By: #### 3 040-3, 04383-0, 53502-2, 72932-5 ####[facility] LABCLIA [id number] [place] [address] [place] Sodium [Moles/Vol] 127 mmol/L Low 136-144 [facility] Comment on above: Order Comment: Speci men Type: BLOOD SPECIMENOrdering Facility: [facility] Address: [address] [place] [address] Performed By: #### 3 040-3, 43303-0, 32278-7, 66889-8 ####[facility] LABCLIA [id number] [place] [address] [place] Urea nitrogen [Mass/Vol] 14 mg/dL Normal 9-24 [facility] Comment on above: Order Comment: Speci men Type: BLOOD SPECIMENOrdering Facility: [facility] Address: [address] [place] [address] Performed By: #### 3 040-3, 17327-3, 22018-1, 25300-4 ####[facility] LABSHUBHAM [id number] [place] [address] [place] [facility] ECG COMPLETEon 10-12-2024 ECG COMPLETE Ventricular Rate : 9 3 BPM Atrial Rate : 93 BPM P-R Interval : 256 ms QRS Duration : 84 ms Q-T Interval : 376 ms QTC Calculation(Bazett) : 467 ms Calculated P [place] : 46 degrees Calculated R [place] : -13 degrees Calculated T [place] : 30 degrees SINUS RHYTHM WITH 1ST DEGREE A-V BLOCK WITH PREMATURE ATRIAL COMPLEXES LOW VOLTAGE QRS CANNOT RULE OUT ANTERIOR INFARCT , AGE UNDETERMINED ABNORMAL ECG NO PREVIOUS ECGS AVAILABLE Confirmed by MD DOWNS VINAYAK ([id number]) on 10/14/2024 11:06:15 PM NAME : MARS PETERSON PID : [id number] : 1955 Gender : Male Race : ORD : [id number] Procedure Date : Oct 12 2024 15:49:31 Edit Date : Oct 14 2024 23:06:20 Diagnosis: SINUS RHYTHM WITH 1ST DEGREE A-V BLOCK WITH PREMATURE ATRIAL COMPLEXES LOW VOLTAGE QRS CANNOT RULE OUT ANTERIOR INFARCT , AGE UNDETERMINED ABNORMAL ECG NO PREVIOUS ECGS AVAILABLE Confirmed by MD DOWNS VINAYAK ([id number]) on 10/14/2024 11:06:15 PM Test Reason : Chest Pain Location : 191 : [place] ED Overread By : MD DOWNS VINAYAK Edited By : MD DOWNS VINAYAK Referred By : , Acquired by : CHRYSTAL CARDOSO 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 [facility] ED NOTE HNO ID: [id number] Author: GISEL INIGUEZ RN Service: Emergency Medicine Author Type: Registered Nurse Type: ED Notes Filed: 10/12/2024 21:57 Note Text: Attempt to call report, left phone number for return call. [facility] ED NOTE HNO ID: [id number] Author: GISEL INIGUEZ RN Service: Emergency Medicine Author Type: Registered Nurse Type: ED Notes Filed: 10/12/2024 21:45 Note Text: Bed assignment: Walter [address] [place] [address] [phone] Normal [facility] ED NOTE HNO ID: [id number] Author: GISEL INIGUEZ RN Service: Emergency Medicine [...] Patient is alert and oriented x3. 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 Normal [facility] ESR Westergren method (Bld) [Velocity]on 10-12-2024 ESR (Bld) [Velocity] 32 mm/h High 0-15 [facility] Comment on above: Order Comment: Speci men Type: STOOL SPECIMEN [facility] Address: [address] [place] [address] Performed By: #### 7 9390-1 #### [facility] CLIA [id number] [address] [place] [address] [place] Ethanol SerPl-mCncon 025 Ethanol [Mass/Vol] mg/dL Normal <11 [facility] Comment on above: Order Comment: Speci men Type: BLOOD SPECIMENOrdering Facility: [facility] Address: [address] [place] [address] Performed By: #### 5 643-2 ####[facility] [place] LABCLIA [id number] [place] [address] [place] HIGH SENSITIVITY TROPONIN To n 10-12-2024 Troponin T.cardiac High sensitivity method [Mass/Vol] 27 ng/L High <12 [facility] Comment on above: Order Comment: Speci men Type: BLOOD SPECIMEN [facility] Address: [address] [place] [address] Performed By: #### 1 988-5, HSTNT, 94642-1 #### [facility] CLIA [id number] [address] [place] [address] [place] [facility] HIGH SENSITIVITY TROPONIN T (INITIAL)on 10-12-2024 Troponin T.cardiac High sensitivity method [Mass/Vol] 49 ng/L High <12 [facility] Comment on above: Order Comment: Speci men Type: BLOOD SPECIMENOrdering Facility: [facility] Address: [address] [place] [address] Performed By: #### L [id number] ####[facility] LABCLIA [id number] [place] [address] [facility] HIGH SENSITIVITY TROPONIN T (SECOND)on 10-12-2024 Troponin T.cardiac High sensitivity method [Mass/Vol] 41 ng/L High <12 [facility] Comment on above: Order Comment: Speci men Type: BLOOD SPECIMENOrdering Facility: [facility] Address: [address] [place] [address] Performed By: #### L [id number] ####[facility] LABCLIA [id number] [place] [address] [facility] HIGH SENSITIVITY TROPONIN T (THIRD) 3 HRS AFTER INITIALon 10-12-2024 Troponin T.cardiac High sensitivity method [Mass/Vol] 31 ng/L High <12 [facility] Comment on above: Order Comment: Speci men Type: BLOOD SPECIMENOrdering Facility: [facility] Address: [address] [place] [address] Performed By: #### L [id number] ####[facility] [place] LABCLIA [id number] [place] [address] [place] HISTORY PHYSICALon HISTORY PHYSICAL HNO ID: [id number] Author: TRU PRESCOTT MD Service: Hospital Medicine Author Type: Nurse Practitioner Type: H&P Filed: 10/13/2024 07:15 Note Text: ----- Attestation signed by Tru Prescott MD at 10/13/2024 7:15 AM Discussed with provider below and I agree with their history exam assessment and plan. Tru Prescott MD ----- [facility] MEDICINE HISTORY AND PHYSICAL EXAM SERVICE DATE: 10/12/2024 SERVICE TIME: 11:45 PM Primary Care Physician: Alma Gill APRN.[facility] NIGHT AND WEEKEND COVERAGE: [facility] COVERAGE: Days: [phone], please page attending physician. Nights: [phone], please page [facility] Night coverage pager [phone]. Subjective CHIEF COMPLAINT: Feeling unwell HPI: This [...] had his Imuran recently increased by his second shift supervisor but has had no other recent changes to his medications that he knows of. Socially, the patient denies nicotine use, alcohol use, or recreational drug use. Furthermore he denies headache, changes in his vision/hearing, trouble swallowing, chest pain, shortness of breath, abdominal pain, constipation/hematochezia , urinary changes, new numbness/tingling, or new swelling. In the [place] ED the patient was found to be [...] is being transferred to hospital medicine at [place] for further workup and management of his sepsis of unknown origin. 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 Normal [facility] Lipase SerPl-cCncon 10-13-19 25 Lipase [Catalytic activity/Vol] 13 U/L Low 16-61 [facility] Comment on above: Order Comment: [facility] Type: BLOOD SPECIMENOrdering Facility: [facility] Address: [address] [place] [address] Performed By: #### 3 040-3, 09570-7, 08670-2, 58311-1 ####[facility] LABCLIA [id number] [place] [address] [place] Magnesium [facility]-ncon 10-12 Magnesium [Mass/Vol] 1.9 mg/dL Normal 1.7-2.3 [facility] Comment on above: Order Comment: [facility] Type: BLOOD SPECIMENOrdering Facility: [facility] Address: [address] [place] [address] Performed By: #### 3 040-3, 34472-7, 95236-1, 11091-4 ####[facility] LABCLIA [id number] [place] [address] [place] NT[facility]proBNP [facility] Natriuretic peptide.B prohormone N-Terminal [Mass/Vol] 1255 pg/mL High <125 [facility] Comment on above: Order Comment: [facility] Type: BLOOD SPECIMENOrdering Facility: [facility] Address: [address] [place] [address] Performed By: #### 3 040-3, 60217-6, 51134-8, 77302-1 ####[facility] LABCLIA [id number] [place] [address] [place] [facility] Procalcitonin SerPl-mCncon 0 10-12-2024 Procalcitonin [Mass/Vol] 0.35 ng/mL High <0.09 [facility] Comment on above: Order Comment: Speci men Type: BLOOD SPECIMEN [facility]ing Facility[facility] Address: [address] [place] [address] Result Comment: For a guided interpretation of test results, please visit the Change in Procalcitonin Calculator, [email or web address]. Performed By: #### 1 988-5, HSTNT, 76179-9 #### [facility] CLIA [id number] [address] [place] [address] [place] SEPSIS LACTATE W/ REFLEX (IN ITIAL)on 10-12-2024 Lactate [Moles/Vol] 2.0 mmol/L Normal <=2.0 [facility] Comment on above: Order Comment: Speci men Type: BLOOD SPECIMENOrdering Facility: [facility] Address: [address] [place] [address] Performed By: #### S LACTR ####[facility] LABCLIA [id number] [place] [address] [facility] [place] Urinalysis complete panel (U )on 10-12-2024 Bacteria LM.HPF (Urine sed) [#/Area] Few Abnormal None Seen [facility] Comment on above: Order Comment: Speci men Type: URINE SPECIMENOrdering Facility: [facility] Address: [address] [place] [address] Performed By: #### 2 4356-8 ####[facility] LABCLIA [id number] [place] [address] [facility] Bilirubin Ql (U) Negative Normal Negative [facility] Comment on above: Order Comment: Speci men Type: URINE SPECIMENOrdering Facility: [facility] Address: [address] [place] [address] Performed By: #### 2 4356-8 ####[facility] LABCLIA [id number] [place] [address] [facility] [place] Clarity (Unsp spec) Clear Normal Clear [facility] Comment on above: Order Comment: Speci men Type: URINE SPECIMENOrdering Facility: [facility] Address: [address] [place] [address] Performed By: #### 2 4356-8 ####[facility] LABCLIA [id number] [place] [address] [facility] Color (U) Yellow Normal Yellow [facility] Comment on above: Order Comment: Speci men Type: URINE SPECIMENOrdering Facility: [facility] Address: [address] [place] [address] Performed By: #### 2 4356-8 ####[facility] LABCLIA [id number] [place] [address] [facility] Epithelial cells LM.HPF (Urine sed) [#/Area] Few Normal [facility] Comment on above: Order Comment: Speci men Type: URINE SPECIMENOrdering Facility: [facility] Address: [address] [place] [address] Result Comment: Few Performed By: #### 2 4356-8 ####[facility] LABCLIA [id number] [place] [address] [facility] Glucose Test strip (U) [Mass/Vol] Negative Normal Negative [facility] Comment on above: Order Comment: Speci men Type: URINE SPECIMENOrdering Facility: [facility] Address: [address] [place] [address] Performed By: #### 2 4356-8 ####[facility] LABCLIA [id number] [place] [address] [facility] Hemoglobin Ql (U) 2+ Abnormal Negative [facility] Comment on above: Order Comment: Speci men Type: URINE SPECIMENOrdering Facility: [facility] Address: [address] [place] [address] Performed By: #### 2 4356-8 ####[facility] LABCLIA [id number] [place] [address] [facility] Hyaline casts (Urine sed) [#/Area] 1-3 /LPF Abnormal 0 /LPF [facility] Comment on above: Order Comment: Speci men Type: URINE SPECIMENOrdering Facility: [facility] Address: [address] [place] [address] Performed By: #### 2 4356-8 ####[facility] LABCLIA [id number] [facility] [place] [address] [facility] Ketones Ql (U) Negative Normal Negative [facility] Comment on above: Order Comment: Speci men Type: URINE SPECIMENOrdering Facility: [facility] Address: [address] [place] [address] Performed By: #### 2 4356-8 ####[facility] LABCLIA [id number] [facility] [place] [address] [facility] Leukocyte esterase Test strip Ql (U) Negative Normal Negative [facility] Comment on above: Order Comment: Speci men Type: URINE SPECIMENOrdering Facility: [facility] Address: [address] [place] [address] Performed By: #### 2 4356-8 ####[facility] LABCLIA [id number] [place] [address] [place] Nitrite Ql (U) Negative Normal Negative [facility] Comment on above: Order Comment: Speci men Type: URINE SPECIMENOrdering Facility: [facility] Address: [address] [place] [address] Performed By: #### 2 4356-8 ####[facility] LABCLIA [id number] [place] [address] [place] pH (U) 5.5 [pH] Normal 5.0-8.0 [facility] Comment on above: Order Comment: Speci men Type: URINE SPECIMENOrdering Facility: [facility] Address: [address] [place] [address] Performed By: #### 2 4356-8 ####[facility] LABCLIA [id number] [place] [address] [facility] Protein (U) [Mass/Vol] Negative Normal Negative [facility] Comment on above: Order Comment: Speci men Type: URINE SPECIMENOrdering Facility: [facility] Address: [address] [place] [address] Performed By: #### 2 4356-8 ####[facility] LABCLIA [id number] [place] [address] [facility] RBC LM.HPF (Urine sed) [#/Area] 6-10 /HPF Abnormal 0-3 /HPF [facility] Comment on above: Order Comment: Speci men Type: URINE SPECIMENOrdering Facility: [facility] Address: [address] [place] [address] Performed By: #### 2 4356-8 ####[facility] LABCLIA [id number] [place] [id number] [facility] Specific gravity (U) [Rel density] <=1.005 Low 1.005-1.030 [facility] Comment on above: Order Comment: Speci men Type: URINE SPECIMENOrdering Facility: [facility] Address: [address] [place] [address] Performed By: #### 2 4356-8 ####[facility] LABCLIA [id number] [place] [address] [facility] Urobilinogen Ql (U) 0.2 EU/dL Normal 0.2-1.0 EU/dL [facility] Comment on above: Order Comment: Speci men Type: URINE SPECIMENOrdering Facility: [facility] Address: [address] [place] [address] Performed By: #### 2 4356-8 ####[facility] LABCLIA [id number] [place] [address] [facility] WBC LM.HPF (Urine sed) [#/Area] 0-5 /HPF Normal 0-5 /HPF [facility] Comment on above: Order Comment: Speci men Type: URINE SPECIMENOrdering Facility: [facility] Address: [address] [place] [address] Performed By: #### 2 4356-8 ####[facility] LABCLIA [id number] [facility] [place] [place] [address] [facility] [place] XR CHEST 1V FRONTALon 2024 XR CHEST [...] significant pleural effusion. No evidence of pneumothorax. 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: WENCESLAO Transcribe Date/Time: Oct 12 2024 5:39P Dictated by : CAROLYNN GRAHAM MD This examination was interpreted and the report reviewed and electronically signed by: CAROLYNN GRAHAM MD on Oct 12 2024 5:40PM EST [id number] Normal [facility] CNPDanitza 10-08-2024 DIMITRI Telephone (AGCONNIEBOB) ----- MARS PETERSON ([id number]) 1955 M DEF Date Time Provider Department 10/08/24 ALMA GILL During your visit today, we recorded the following information about you: Priya Pedersen MA 10/08/2024 11:53 AM Signed Form placed on signing tray from [facility] Order: [id number] VANNA Rojas Julie, MA 10/12/2024 1:41 PM [...] heart failure (HCC*11/23/2021 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*11/23/2021 CVA (cerebral vascular accident) [...] 4 [Z9 (more content not included)... Normal [facility] CNPNon 09-30-2024 CNPN Normal [facility] CBC W Auto Differential pane l (Bld)on 09-28-2024 Basophils (Bld) [#/Vol] 10*3/uL Normal <0.11 [facility] Comment on above: Order Comment: Speci men Type: BLOOD SPECIMENOrdering Facility: External Submitter Address: , , Performed By: #### 5 7021-8 ####[facility] LABCLIA [id number] [facility] [address] [place] [address] [place] Basophils/100 WBC (Bld) 0.2 % Normal [facility] Comment on above: Order Comment: Speci men Type: BLOOD SPECIMENOrdering Facility: External Submitter Address: , , Performed By: #### 5 7021-8 ####[facility] LABCLIA [id number] [facility] [address] [place] [address] [facility] OF [place] Differential cell count method Nom (Bld) Auto Normal [facility] Comment on above: Order Comment: Speci men Type: BLOOD SPECIMENOrdering Facility: External Submitter Address: , , Performed By: #### 5 7021-8 ####[facility] LABCLIA [id number] [address], [address] [place] Eosinophils (Bld) [#/Vol] 0.05 10*3/uL Normal <0.46 [facility] Comment on above: Order Comment: Speci men Type: BLOOD SPECIMENOrdering Facility: External Submitter Address: , , Performed By: #### 5 7021-8 ####[facility] LABCLIA [id number] [address], [address] Eosinophils/100 WBC (Bld) 0.5 % Normal [facility] Comment on above: Order Comment: Speci men Type: BLOOD SPECIMENOrdering Facility: External Submitter Address: , , Performed By: #### 5 7021-8 ####[facility] LABCLIA [id number] [address] [place] [address] [place] Erythrocyte distribution width (RBC) [Ratio] 15.0 % Normal 11.5-15.0 [facility] Comment on above: Order Comment: Speci men Type: BLOOD SPECIMENOrdering Facility: External Submitter Address: , , Performed By: #### 5 7021-8 ####[facility] LABCLIA [id number] [address] [place] [address] [place] Hematocrit (Bld) [Volume fraction] 38.6 % Low 39.0-51.0 [facility] Comment on above: Order Comment: Speci men Type: BLOOD SPECIMENOrdering Facility: External Submitter Address: , , Performed By: #### 5 7021-8 ####[facility] LABCLIA [id number] [address] [place] [address] [place] Hemoglobin (Bld) [Mass/Vol] 12.2 g/dL Low 13.0-17.0 [facility] Comment on above: Order Comment: Speci men Type: BLOOD SPECIMENOrdering Facility: External Submitter Address: , , Performed By: #### 5 7021-8 ####[facility] LABCLIA [id number] [address], [address] STATES [facility] Immature granulocytes (Bld) [#/Vol] 0.10 10*3/uL High <0.10 [facility] Comment on above: Order Comment: Speci men Type: BLOOD SPECIMENOrdering Facility: External Submitter Address: , , Performed By: #### 5 7021-8 ####[facility] LABCLIA [id number] [address], [address] Immature granulocytes/100 WBC (Bld) 1.0 % Normal [facility] Comment on above: Order Comment: Speci men Type: BLOOD SPECIMENOrdering Facility: External Submitter Address: , , Performed By: #### 5 7021-8 ####[facility] LABCLIA [id number] [address], [facility] [place] Lymphocytes (Bld) [#/Vol] 1.01 10*3/uL Normal 1.00-4.00 [facility] Comment on above: Order Comment: Speci men Type: BLOOD SPECIMENOrdering Facility: External Submitter Address: , , Performed By: #### 5 7021-8 ####[facility] LABCLIA [id number] [facility] [facility] [id number] Lymphocytes/100 WBC (Bld) 10.3 % Normal [facility] Comment on above: Order Comment: Speci men Type: BLOOD SPECIMENOrdering Facility: External Submitter Address: , , Performed By: #### 5 7021-8 ####[facility] LABIA [id number] [address] STATES OF [facility] MCH (RBC) [Entitic mass] 28.3 pg Normal 26.0-34.0 [facility] Comment on above: Order Comment: Speci men Type: BLOOD SPECIMENOrdering Facility: External Submitter Address: , , Performed By: #### 5 7021-8 ####[facility] LABIA [id number] [address] MCHC (RBC) [Mass/Vol] 31.6 g/dL Normal 30.5-36.0 [facility] Comment on above: Order Comment: Speci men Type: BLOOD SPECIMENOrdering Facility: External Submitter Address: , , Performed By: #### 5 7021-8 ####[facility] LABIA [id number] [address] MCV (RBC) [Entitic vol] 89.6 fL Normal 80.0-100.0 [facility] Comment on above: Order Comment: Speci men Type: BLOOD SPECIMENOrdering Facility: External Submitter Address: , , Performed By: #### 5 7021-8 ####[facility] LABCLIA [id number] [address] Monocytes (Bld) [#/Vol] 0.73 10*3/uL Normal <0.87 [facility] Comment on above: Order Comment: Speci men Type: BLOOD SPECIMENOrdering Facility: External Submitter Address: , , Performed By: #### 5 7021-8 ####[facility] LABCLIA [id number] [address] [address] [id number], [place] [address] [place] Monocytes/100 WBC (Bld) 7.4 % Normal [facility] Comment on above: Order Comment: Speci men Type: BLOOD SPECIMENOrdering Facility: External Submitter Address: , , Performed By: #### 5 7021-8 ####[facility] LABCLIA [id number] [facility] [id number], [place] [address] [place] Neutrophils (Bld) [#/Vol] 7.93 10*3/uL High 1.45-7.50 [facility] Comment on above: Order Comment: Speci men Type: BLOOD SPECIMENOrdering Facility: External Submitter Address: , , Performed By: #### 5 7021-8 ####[facility] LABCLIA [id number] [facility] [address] [place] [address] [place] Neutrophils/100 WBC (Bld) 80.6 % Normal [facility] Comment on above: Order Comment: Speci men Type: BLOOD SPECIMENOrdering Facility: External Submitter Address: , , Performed By: #### 5 7021-8 ####[facility] LABCLIA [id number] [facility] [address] [place] [address] [place] Nucleated RBC (Bld) [#/Vol] 10*3/uL Normal <0.01 [facility] Comment on above: Order Comment: Speci men Type: BLOOD SPECIMENOrdering Facility: External Submitter Address: , , Performed By: #### 5 7021-8 ####[facility] LABCLIA [id number] [facility] [address] [place] [address] [place] Nucleated RBC/100 WBC (Bld) [Ratio] 0.0 /100 WBC Normal [facility] Comment on above: Order Comment: Speci men Type: BLOOD SPECIMENOrdering Facility: External Submitter Address: , , Performed By: #### 5 7021-8 ####[facility] LABCLIA [id number] [facility] [address] [place] [address] [place] Platelet mean volume (Bld) [Entitic vol] 9.5 fL Normal 9.0-12.7 [facility] Comment on above: Order Comment: Speci men Type: BLOOD SPECIMENOrdering Facility: External Submitter Address: , , Performed By: #### 5 7021-8 ####[facility] LABCLIA [id number] [address], [place] [address] [place] [address] [place] Platelets (Bld) [#/Vol] 233 10*3/uL Normal 150-400 [facility] Comment on above: Order Comment: Speci men Type: BLOOD SPECIMENOrdering Facility: External Submitter Address: , , Performed By: #### 5 7021-8 ####[facility] LABCLIA [id number] [address], [address] RBC (Bld) [#/Vol] 4.31 10*6/uL Normal 4.20-6.00 [facility] Comment on above: Order Comment: Speci men Type: BLOOD SPECIMENOrdering Facility: External Submitter Address: , , Performed By: #### 5 7021-8 ####[facility] LABCLIA [id number] [address], [address] WBC (Bld) [#/Vol] 9.84 10*3/uL Normal 3.70-11.00 [facility] Comment on above: Order Comment: Speci men Type: BLOOD SPECIMENOrdering Facility: External Submitter Address: , , Performed By: #### 5 7021-8 ####[facility] LABCLIA [id number] [address], [facility] Yamileth 09-28-2024 DIMITRI Telephone (MUKESH) ----- MARS PETERSON ([id number]) 1955 M DEF Date Time Provider Department 09/28/24 ALMA GILL During your visit today, we recorded the following information about you: Priya Pedersen MA 09/28/2024 4:36 PM Signed Form placed on signing tray Order: [id number] VANNA Rojas Brenda, LPN 10/08/2024 9:56 AM Signed Form signed by Alma Gill CNP. Form faxed to [phone]. Fax confirmation received. Eri Feng LPN Allergies [...] heart failure (HCC*11/23/2021 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*11/23/2021 CVA (cerebral vascular accident) [...] 06/04/2022 Mixed (more content not included)... Normal [facility] Comprehensive metabolic 2000 panelon 09-28-2024 Albumin [Mass/Vol] 3.8 g/dL Low 3.9-4.9 [facility] Comment on above: Order Comment: Speci men Type: BLOOD SPECIMENOrdering Facility: External Submitter Address: , , Performed By: #### 2 4323-8 ####[facility] LABCLIA [id number] [place] [address] [place] ALP [Catalytic activity/Vol] 33 U/L Low 38-113 [facility] Comment on above: Order Comment: Speci men Type: BLOOD SPECIMENOrdering Facility: External Submitter Address: , , Performed By: #### 2 4323-8 ####[facility] LABCLIA [id number] [facility] [facility] [address] [place] [address] [place] ALT [Catalytic activity/Vol] 19 U/L Normal 10-54 [facility] Comment on above: Order Comment: Speci men Type: BLOOD SPECIMENOrdering Facility: External Submitter Address: , , Performed By: #### 2 4323-8 ####[facility] LABCLIA [id number] [facility] [address] [place] [address] [place] Anion gap [Moles/Vol] 15 mmol/L Normal 8-15 [facility] Comment on above: Order Comment: Speci men Type: BLOOD SPECIMENOrdering Facility: External Submitter Address: , , Performed By: #### 2 4323-8 ####[facility] LABCLIA [id number] [facility]UEKAIS[facility] F[facility] HOS[facility]IT[facility] [address] [place] [address] [place] AST [Catalytic activity/Vol] 19 U/L Normal 14-40 [facility] Comment on above: Order Comment: Speci men Type: BLOOD SPECIMENOrdering Facility: External Submitter Address: , , Performed By: #### 2 4323-8 ####[facility] LABCLIA [id number] [facility] [address] [place] [address] [place] Bilirubin [Mass/Vol] 0.3 mg/dL Normal 0.2-1.3 [facility] Comment on above: Order Comment: Speci men Type: BLOOD SPECIMENOrdering Facility: External Submitter Address: , , Performed By: #### 2 4323-8 ####[facility] LABCLIA [id number] [facility] [address] [place] [address] [place] Calcium [Mass/Vol] 8.6 mg/dL Normal 8.5-10.2 [facility] Comment on above: Order Comment: Speci men Type: BLOOD SPECIMENOrdering Facility: External Submitter Address: , , Performed By: #### 2 4323-8 ####[facility] LABCLIA [id number] [address] [address] [place] OF [facility] Chloride [Moles/Vol] 88 mmol/L Low 98-107 [facility] Comment on above: Order Comment: Speci men Type: BLOOD SPECIMENOrdering Facility: External Submitter Address: , , Performed By: #### 2 4323-8 ####[facility] LABCLIA [id number] [address] [address] [place] CO2 [Moles/Vol] 21 mmol/L Low 22-30 [facility] Comment on above: Order Comment: Speci men Type: BLOOD SPECIMENOrdering Facility: External Submitter Address: , , Performed By: #### 2 4323-8 ####[facility] LABIA [id number] [place] [address] [facility] Creatinine [Mass/Vol] 0.81 mg/dL Normal 0.73-1.22 [facility] Comment on above: Order Comment: Speci men Type: BLOOD SPECIMENOrdering Facility: External Submitter Address: , , Performed By: #### 2 4323-8 ####[facility] LABIA [id number] [address] [address] [facility] Creatinine and Glomerular filtration rate.predicted panel (S/P/Bld) 94 mL/min/1.73m??? Normal >=60 [facility] Comment on above: Order Comment: Speci [...] actual GFR. Performed By: #### 2 4323-8 ####[facility] LABCLIA [id number] [address] [address] [place] Glucose [Mass/Vol] 99 mg/dL Normal 74-99 [facility] Comment on above: Order Comment: Speci men Type: BLOOD SPECIMENOrdering Facility: External Submitter Address: , , Result Comment: The [place] Diabetes Association (ADA) provides guidance for cutoff [...] Standards of Medical Care in Diabetes 2016, [place] [employer]. Diabetes Care. 2016.39(Suppl 1). Performed By: #### 2 4323-8 ####[facility] LABCLIA [id number] [address] [address] [place] Potassium [Moles/Vol] 4.8 mmol/L Normal 3.7-5.1 [facility] Comment on above: Order Comment: Speci men Type: BLOOD SPECIMENOrdering Facility: External Submitter Address: , , Performed By: #### 2 4323-8 ####[facility] LABCLIA [id number] [address] [address] [place] Protein [Mass/Vol] 6.0 g/dL Low 6.3-8.0 [facility] Comment on above: Order Comment: Speci men Type: BLOOD SPECIMENOrdering Facility: External Submitter Address: , , Performed By: #### 2 4323-8 ####[facility] LABCLIA [id number] [address] [address] [place] Sodium [Moles/Vol] 124 mmol/L Low 136-144 [facility] Comment on above: Order Comment: Elgin egan Type: BLOOD SPECIMENOrdering Facility: External Submitter Address: , , Performed By: #### 2 4323-8 ####[facility] LABCLIA [id number] [place] [address] [place] Urea nitrogen [Mass/Vol] 8 mg/dL Low 9-24 [facility] Comment on above: Order Comment: Elgin egan Type: BLOOD SPECIMENOrdering Facility: External Submitter Address: , , Performed By: #### 2 4323-8 ####[facility] LABCLIA [id number] [place] [address] [place] TPMT GENOTYPEon 09-24-2024 TPMT PREDICTED PHENOTYPE TPMT Genotyping Normal [facility] Comment on above: Order Comment: Elgin egan Type: BLOOD SPECIMENOrdering Facility: [facility] Address: [address] [place] [address] Result Comment: Laboratory Accession Number: [id number] Result: TPMT Genotype: *1/*1 TPMT Predicted Phenotype: TPMT Normal Metabolizer Interpretation: Two normal function alleles have been identified in this sample [...] list below) in the TPMT gene (OMIM 592813). This test does not detect all sequence [...] combination of the following variants, RefSNP ID: [id number], [id number], [id number], [id number], [id number], and [id number]. References: 1) Jerri CM, eBlen IBARRA, Vanna RIVERA. Thiopurine methyltransferase (TPMT) genotyping to predict myelosuppression risk. Plos Curr. 2011;0TID3244. PMC ID: [id number]. 2) Marilu RIOS, Tere Trujillo, Bandar Trujillo, et al. Clinical Pharmacogenetics Implementation Consortium Guideline for Thiopurine Dosing Based on TPMT and NUDT15 Genotypes: 2018 Update. Clinical Pharmacology & Therapeutics (2019) 105(5): 7146-3892. 3) Bandar Trujillo, Raul HANDY, Armando JAUREGUI, et al. Pharmacogenomics Knowledge for Personalized Medicine. Clinical Pharmacology & Therapeutics (2012) 92(4): 414-417. 4) Clinical Pharmacogenetics Implementation Consortium (CPIC): www.CPIPpgx.org Disclaimer: This test was developed and its performance characteristics determined by [facility]'s Pathology and Laboratory Medicine Department. It has not been cleared or approved by the FDA. [facility] Pathology and Laboratory Medicine Department is regulated under CLIA as certified to perform high-complexity testing. This test is used for clinical purposes. It should not be regarded as investigational or for research. Test performed at [facility], [address] [place] [address]. CLIA Number: [id number] Interpretation performed by Susi Donahue MD, PhD Performed By: #### T PMTG ####[facility] LIMSCLIA [id number] [address] [place] Urinalysis complete panel (U )on 09-24-2024 Bacteria LM.HPF (Urine sed) [#/Area] Rare Abnormal None Seen [facility] Comment on above: Order Comment: Speci men Type: URINE SPECIMENOrdering Facility: [facility] Address: [address] [place] [address] Performed By: #### 2 4356-8 ####[facility] LABCLIA [id number] [place] [address] [place] Bilirubin Ql (U) Negative Normal Negative [facility] Comment on above: Order Comment: Speci men Type: URINE SPECIMENOrdering Facility: [facility] Address: [address] [place] [address] Performed By: #### 2 4356-8 ####[facility] LABCLIA [id number] [place] [address] [place] Clarity (Unsp spec) Clear Normal Clear [facility] Comment on above: Order Comment: Speci men Type: URINE SPECIMENOrdering Facility: [facility] Address: [address] [place] [address] Performed By: #### 2 4356-8 ####[facility] LABCLIA [id number] [place] [address] [place] Color (U) Yellow Normal Yellow [facility] Comment on above: Order Comment: Speci men Type: URINE SPECIMENOrdering Facility: [facility] Address: [address] [place] [address] Performed By: #### 2 4356-8 ####[facility] LABCLIA [id number] [facility] [place] [address] [facility] Glucose Test strip (U) [Mass/Vol] Negative Normal Negative [facility] Comment on above: Order Comment: Speci men Type: URINE SPECIMENOrdering Facility: [facility] Address: [address] [place] [address] Performed By: #### 2 4356-8 ####[facility] LABCLIA [id number] [facility] [place] [address] [facility] Hemoglobin Ql (U) 1+ Abnormal Negative [facility] Comment on above: Order Comment: Speci men Type: URINE SPECIMENOrdering Facility: [facility] Address: [address] [place] [address] Performed By: #### 2 4356-8 ####[facility] LABCLIA [id number] [facility] [place] [address] [place] [facility] Ketones Ql (U) Negative Normal Negative [facility] Comment on above: Order Comment: Speci men Type: URINE SPECIMENOrdering Facility: [facility] Address: [address] [place] [address] Performed By: #### 2 4356-8 ####[facility] LABCLIA [id number] [facility] [place] [address] [facility] [place] Leukocyte esterase Test strip Ql (U) Negative Normal Negative [facility] Comment on above: Order Comment: Speci men Type: URINE SPECIMENOrdering Facility: [facility] Address: [address] [place] [address] Performed By: #### 2 4356-8 ####[facility] LABCLIA [id number] [facility] [place] [address] [facility] Nitrite Ql (U) Negative Normal Negative [facility] Comment on above: Order Comment: Speci men Type: URINE SPECIMENOrdering Facility: [facility] Address: [address] [place] [address] Performed By: #### 2 4356-8 ####[facility] LABCLIA [id number] [place] [address] [place] [facility] pH (U) 6.0 [pH] Normal 5.0-8.0 [facility] Comment on above: Order Comment: Speci men Type: URINE SPECIMENOrdering Facility: [facility] Address: [address] [place] [address] Performed By: #### 2 4356-8 ####[facility] LABCLIA [id number] [place] [address] [facility] Protein (U) [Mass/Vol] Negative Normal Negative [facility] Comment on above: Order Comment: Speci men Type: URINE SPECIMENOrdering Facility: [facility] Address: [address] [place] [address] Performed By: #### 2 4356-8 ####[facility] LABCLIA [id number] [place] [id number] [facility] RBC LM.HPF (Urine sed) [#/Area] 11-25 /HPF Abnormal 0-3 /HPF [facility] Comment on above: Order Comment: Speci men Type: URINE SPECIMENOrdering Facility: [facility] Address: [address] [place] [address] Performed By: #### 2 4356-8 ####[facility] LABCLIA [id number] [place] [address] [facility] Specific gravity (U) [Rel density] 1.010 Normal 1.005-1.030 [facility] Comment on above: Order Comment: Speci men Type: URINE SPECIMENOrdering Facility: [facility] Address: [address] [place] [address] Performed By: #### 2 4356-8 ####[facility] LABCLIA [id number] [place] [address] [facility] Urobilinogen Ql (U) 0.2 EU/dL Normal 0.2-1.0 EU/dL [facility] Comment on above: Order Comment: Speci men Type: URINE SPECIMENOrdering Facility: [facility] Address: [address] [place] [address] Performed By: #### 2 4356-8 ####[facility] LABCLIA [id number] [place] [phone] [facility] WBC LM.HPF (Urine sed) [#/Area] 0-5 /HPF Normal 0-5 /HPF [facility] Comment on above: Order Comment: Speci men Type: URINE SPECIMENOrdering Facility: [facility] Address: [address] [place] [address] Performed By: #### 2 4356-8 ####[facility] LABCLIA [id number] [place] [phone] [facility] CNOVon 09-23-2024 CNOV Office Visit (AGHWW1 ) ----- MARS PETERSON ([id number]) 1955 M DEF Date Time Provider Department 09/23/24 2:30 PM SANDRA HUMMEL AGHWW1 During your visit today, we recorded the following information about you: Respiration Weight Height 20/minute 123.8 kg 1.829 m Sandra Hummel MD 10/06/2024 7:37 AM Signed Patient presents with: Right Hand - New, Pain, Swelling HISTORY OF PRESENT ILLNESS Marslaurence Peterson is a 69 year old male [...] his questions were answered to his satisfaction. Sandar Hummel MD Patient educated on cast care [...] - Fully Assessed Reason for Visit: New [202994] Pain [78] Swelling [205] Primary Visit Diagnosis:Closed boxer's fracture, initial encounter [S62.339A] Order(s):APPLY HAND/WRIST CAST [[id number]] Order #: [id number] Prescriptions as of 10/06/2024 - azaTHIOprine (IMURAN) [...] - Blood-Gluc (more content not included)... Normal [facility] CNPDanitza 09-22-2024 [facility] Telephone (AGCONNIEBOB) ----- NICHOLASMARS ([id number]) 1955 M DEF Date Time Provider Department 09/22/24 WICHO ALMAMASSIEL MAYORGA During your visit today, we recorded the following information about you: Priya Pedersen MA 09/22/2024 7:29 AM Signed Form received from [facility] order: [id number] VANNA Rojas Julie, [place] 09/28/2024 10:03 AM Signed Faxed Priya Pedersen MA Allergies As of Date: 09/22/2024 Noted Allergy Reaction ANIMAL DANDER 08/21/2022 14 - Other: See Comments Comments: Anything with fur SEASONAL ALLERGIES 08/21/2022 14 - Other: See Comments Comments: Stuffy nose, headaches Date Reviewed: 09/21/2024 Reviewed by: Abbie Mason LPN - Fully Assessed Reason for Visit: Electronic Communication [190] Forms [913] Prescriptions as of 09/28/2024 - [...] heart failure (HCC*11/23/2021 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*11/23/2021 CVA (cerebral vascular accident) ([facility]) [I63.9] 11/23/2021 11/20/2022 Neuropathy [G62.9] 11/23/2021 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] 11/23/2021 09/18/2023 Umbilical hernia [...] 08/08/2022 AZRA (acute kidney injury) ([facility]) [N17.9] 08/10/202201/15 (more content not included)... Normal [facility] CBC W Auto Differential pane l (Bld)on 09-21-2024 Basophils (Bld) [#/Vol] 10*3/uL Normal <0.11 [facility] Comment on above: Order Comment: Speci men Type: BLOOD SPECIMENOrdering Facility: [facility] Address: [address] [place] [address] Performed By: #### 5 7021-8 ####[facility] LABCLIA [id number] [facility] [place] [address] [place] [facility] Basophils/100 WBC (Bld) 0.1 % Normal [facility] Comment on above: Order Comment: Speci men Type: BLOOD SPECIMENOrdering Facility: [facility] Address: [address] [place] [address] Performed By: #### 5 7021-8 ####[facility] LABCLIA [id number] [facility] [place] [address] [facility] Differential cell count method Nom (Bld) Auto Normal [facility] Comment on above: Order Comment: Speci men Type: BLOOD SPECIMENOrdering Facility: [facility] Address: [address] [place] [address] Performed By: #### 5 7021-8 ####[facility] LABCLIA [id number] [facility] [place] [address] [place] Eosinophils (Bld) [#/Vol] 0.11 10*3/uL Normal <0.46 [facility] Comment on above: Order Comment: Speci men Type: BLOOD SPECIMENOrdering Facility: [facility] Address: [address] [place] [address] Performed By: #### 5 7021-8 ####[facility] LABCLIA [id number] [place] [address] [place] [facility] Eosinophils/100 WBC (Bld) 1.3 % Normal [facility] Comment on above: Order Comment: Speci men Type: BLOOD SPECIMENOrdering Facility: [facility] Address: [address] [place] [address] Performed By: #### 5 7021-8 ####[facility] LABCLIA [id number] [facility] [place] [address] [facility] Erythrocyte distribution width (RBC) [Ratio] 14.0 % Normal 11.5-15.0 [facility] Comment on above: Order Comment: Speci men Type: BLOOD SPECIMENOrdering Facility: [facility] Address: [address] [place] [address] Performed By: #### 5 7021-8 ####[facility] LABCLIA [id number] [place] [address] [place] Hematocrit (Bld) [Volume fraction] 41.8 % Normal 39.0-51.0 [facility] Comment on above: Order Comment: Speci men Type: BLOOD SPECIMENOrdering Facility: [facility] Address: [address] [place] [address] Performed By: #### 5 7021-8 ####[facility] LABCLIA [id number] [place] [address] [place] Hemoglobin (Bld) [Mass/Vol] 13.2 g/dL Normal 13.0-17.0 [facility] Comment on above: Order Comment: Speci men Type: BLOOD SPECIMENOrdering Facility: [facility] Address: [address] [place] [address] Performed By: #### 5 7021-8 ####[facility] LABCLIA [id number] [place] [address] [facility] [place] Immature granulocytes (Bld) [#/Vol] 0.05 10*3/uL Normal <0.10 [facility] Comment on above: Order Comment: Speci men Type: BLOOD SPECIMENOrdering Facility: [facility] Address: [address] [place] [address] Performed By: #### 5 7021-8 ####[facility] LABCLIA [id number] [place] [address] [facility] Immature granulocytes/100 WBC (Bld) 0.6 % Normal [facility] Comment on above: Order Comment: Speci men Type: BLOOD SPECIMENOrdering Facility: [facility] Address: [address] [place] [address] Performed By: #### 5 7021-8 ####[facility] LABCLIA [id number] [place] [address] [place] Lymphocytes (Bld) [#/Vol] 2.17 10*3/uL Normal 1.00-4.00 [facility] Comment on above: Order Comment: Speci men Type: BLOOD SPECIMENOrdering Facility: [facility] Address: [address] [place] [address] Performed By: #### 5 7021-8 ####[facility] LABCLIA [id number] [place] [address] [facility] Lymphocytes/100 WBC (Bld) 25.9 % Normal [facility] Comment on above: Order Comment: Speci men Type: BLOOD SPECIMENOrdering Facility: [facility] Address: [address] [place] [address] Performed By: #### 5 7021-8 ####[facility] LABCLIA [id number] [place] [address] [place] MCH (RBC) [Entitic mass] 28.4 pg Normal 26.0-34.0 [facility] Comment on above: Order Comment: Speci men Type: BLOOD SPECIMENOrdering Facility: [facility] Address: [address] [place] [address] Performed By: #### 5 7021-8 ####[facility] LABCLIA [id number] [place] [address] [place] MCHC (RBC) [Mass/Vol] 31.6 g/dL Normal 30.5-36.0 [facility] Comment on above: Order Comment: Speci men Type: BLOOD SPECIMENOrdering Facility: [facility] Address: [address] [place] [address] Performed By: #### 5 7021-8 ####[facility] LABCLIA [id number] [place] [address] [place] MCV (RBC) [Entitic vol] 90.1 fL Normal 80.0-100.0 [facility] Comment on above: Order Comment: Speci men Type: BLOOD SPECIMENOrdering Facility: [facility] Address: [address] [place] [address] Performed By: #### 5 7021-8 ####[facility] LABCLIA [id number] [place] [address] [place] Monocytes (Bld) [#/Vol] 0.87 10*3/uL High <0.87 [facility] Comment on above: Order Comment: Speci men Type: BLOOD SPECIMENOrdering Facility: [facility] Address: [address] [place] [address] Performed By: #### 5 7021-8 ####[facility] LABCLIA [id number] [facility] [place] [address] [facility] Monocytes/100 WBC (Bld) 10.4 % Normal [facility] Comment on above: Order Comment: Speci men Type: BLOOD SPECIMENOrdering Facility: [facility] Address: [address] [place] [address] Performed By: #### 5 7021-8 ####[facility] LABCLIA [id number] [facility] [place] [address] [place] Neutrophils (Bld) [#/Vol] 5.17 10*3/uL Normal 1.45-7.50 [facility] Comment on above: Order Comment: Speci men Type: BLOOD SPECIMENOrdering Facility: [facility] Address: [address] [place] [address] Performed By: #### 5 7021-8 ####[facility] LABCLIA [id number] [facility] [place] [address] [facility] [place] Neutrophils/100 WBC (Bld) 61.7 % Normal [facility] Comment on above: Order Comment: Speci men Type: BLOOD SPECIMENOrdering Facility: [facility] Address: [address] [place] [address] Performed By: #### 5 7021-8 ####[facility] LABCLIA [id number] [place] [address] [place] Nucleated RBC (Bld) [#/Vol] Normal [facility] Comment on above: Order Comment: Speci men Type: BLOOD SPECIMENOrdering Facility: [facility] Address: [address] [place] [id number] Performed By: #### 5 7021-8 ####[facility] LABCLIA [id number] [place] [address] [place] Nucleated RBC/100 WBC (Bld) [Ratio] Normal [facility] Comment on above: Order Comment: Speci men Type: BLOOD SPECIMENOrdering Facility: [facility] Address: [address] [place] [address] Performed By: #### 5 7021-8 ####[facility] LABCLIA [id number] [place] [address] [place] Platelet mean volume (Bld) [Entitic vol] 8.6 fL Low 9.0-12.7 [facility] Comment on above: Order Comment: Speci men Type: BLOOD SPECIMENOrdering Facility: [facility] Address: [address] [place] [address] Performed By: #### 5 7021-8 ####[facility] LABCLIA [id number] [place] [address] [place] Platelets (Bld) [#/Vol] 191 10*3/uL Normal 150-400 [facility] Comment on above: Order Comment: Speci men Type: BLOOD SPECIMENOrdering Facility: [facility] Address: [address] [place] [address] Performed By: #### 5 7021-8 ####[facility] LABCLIA [id number] [facility] [place] [address] [place] RBC (Bld) [#/Vol] 4.64 10*6/uL Normal 4.20-6.00 [facility] Comment on above: Order Comment: Speci men Type: BLOOD SPECIMENOrdering Facility: [facility] Address: [address] [place] [address] Performed By: #### 5 7021-8 ####[facility] LABCLIA [id number] [place] [address] [place] [facility] WBC (Bld) [#/Vol] 8.38 10*3/uL Normal 3.70-11.00 [facility] Comment on above: Order Comment: Speci men Type: BLOOD SPECIMENOrdering Facility: [facility] Address: [address] [place] [address] Performed By: #### 5 7021-8 ####[facility] LABCLIA [id number] [place] [address] [facility] [place] CNOVon 09-21-2024 CNOV Normal [facility] metabolic 2000 panelon 09-21-2024 Albumin [Mass/Vol] 3.8 g/dL Low 3.9-4.9 [facility] Comment on above: Order Comment: Speci men Type: BLOOD SPECIMENOrdering Facility: [facility] Address: [address] [place] [address] Performed By: #### 2 4323-8 ####[facility] LABCLIA [id number] [place] [address] [facility] ALP [Catalytic activity/Vol] 37 U/L Low 38-113 [facility] Comment on above: Order Comment: Speci men Type: BLOOD SPECIMENOrdering Facility: [facility] Address: [address] [place] [address] Performed By: #### 2 4323-8 ####[facility] LABCLIA [id number] [place] [address] [facility] ALT With P-5'-P [Catalytic activity/Vol] 17 U/L Normal 10-54 [facility] Comment on above: Order Comment: Speci men Type: BLOOD SPECIMENOrdering Facility: [facility] Address: [address] [place] [address] Performed By: #### 2 4323-8 ####[facility] LABCLIA [id number] [place] [address] [place] Anion gap [Moles/Vol] 11 mmol/L Normal 8-15 [facility] Comment on above: Order Comment: Speci men Type: BLOOD SPECIMENOrdering Facility: [facility] Address: [address] [place] [address] Performed By: #### 2 4323-8 ####[facility] LABCLIA [id number] [facility] [place] [address] [place] AST With P-5'-P [Catalytic activity/Vol] 19 U/L Normal 14-40 [facility] Comment on above: Order Comment: Speci men Type: BLOOD SPECIMENOrdering Facility: [facility] Address: [address] [place] [address] Performed By: #### 2 4323-8 ####[facility] LABCLIA [id number] [facility] [place] [address] [place] Bilirubin [Mass/Vol] 0.3 mg/dL Normal 0.2-1.3 [facility] Comment on above: Order Comment: Speci men Type: BLOOD SPECIMENOrdering Facility: [facility] Address: [address] [place] [address] Performed By: #### 2 4323-8 ####[facility] [place] LABCLIA [id number] [facility] [place] [address] [place] Calcium [Mass/Vol] 9.3 mg/dL Normal 8.5-10.2 [facility] Comment on above: Order Comment: Speci men Type: BLOOD SPECIMENOrdering Facility: [facility] Address: [address] [place] [address] Performed By: #### 2 4323-8 ####[facility] LABCLIA [id number] [facility] [place] [address] [place] Chloride [Moles/Vol] 87 mmol/L Low 98-107 [facility] Comment on above: Order Comment: Speci men Type: BLOOD SPECIMENOrdering Facility: [facility] Address: [address] [place] [address] Performed By: #### 2 4323-8 ####[facility] LABCLIA [id number] [place] [address] [place] CO2 [Moles/Vol] 27 mmol/L Normal 22-30 [facility] Comment on above: Order Comment: Speci men Type: BLOOD SPECIMENOrdering Facility: [facility] Address: [address] [place] [address] Performed By: #### 2 4323-8 ####[facility] LABCLIA [id number] [place] [address] [place] Creatinine [Mass/Vol] 0.91 mg/dL Normal 0.73-1.22 [facility] Comment on above: Order Comment: Speci men Type: BLOOD SPECIMENOrdering Facility: [facility] Address: [address] [place] [address] Performed By: #### 2 4323-8 ####[facility] LABCLIA [id number] [place] [address] [facility] Creatinine and Glomerular filtration rate.predicted panel (S/P/Bld) 90 mL/min/1.73m??? Normal >=60 [facility] Comment on above: Order Comment: Speci men Type: BLOOD SPECIMENOrdering Facility: [facility] Address: [address] [place] [address] Result Comment: Tamika mated Glomerular Filtration Rate [...] actual GFR. Performed By: #### 2 4323-8 ####[facility] LABCLIA [id number] [place] [address] [place] Glucose [Mass/Vol] 81 mg/dL Normal 74-99 [facility] Comment on above: Order Comment: Speci men Type: BLOOD SPECIMENOrdering Facility: [facility] Address: [address] [id number] Result Comment: The [place] Diabetes Association (ADA) provides guidance for cutoff [...] Standards of Medical Care in Diabetes 2016, [place] [employer]. Diabetes Care. 2016.39(Suppl 1). Performed By: #### 2 4323-8 ####[facility] LABCLIA [id number] [place] [address] [place] Potassium [Moles/Vol] 4.1 mmol/L Normal 3.7-5.1 [facility] Comment on above: Order Comment: Speci men Type: BLOOD SPECIMENOrdering Facility: [facility] Address: [address] [place] [address] Performed By: #### 2 4323-8 ####[facility] LABCLIA [id number] [place] [address] [place] Protein [Mass/Vol] 6.7 g/dL Normal 6.3-8.0 [facility] Comment on above: Order Comment: Speci men Type: BLOOD SPECIMENOrdering Facility: [facility] Address: [address] [id number] Performed By: #### 2 4323-8 ####[facility] LABCLIA [id number] [place] [address] [place] Sodium [Moles/Vol] 125 mmol/L Low 136-144 [facility] Comment on above: Order Comment: Speci men Type: BLOOD SPECIMENOrdering Facility: [facility] Address: [address] [id number] Performed By: #### 2 4323-8 ####[facility] LABCLIA [id number] [place] [address] [place] Urea nitrogen [Mass/Vol] 9 mg/dL Normal 9-24 [facility] Comment on above: Order Comment: Speci men Type: BLOOD SPECIMENOrdering Facility: [facility] Address: [address] [place] [address] [place] [address] Performed By: #### 2 4323-8 ####[facility] LABCLIA [id number] [place] [address] [place] XR HAND 3V PA/LAT/OBL [...] impacted and comminuted fifth metacarpal neck fracture 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: WENCESLAO Transcribe Date/Time: Sep 24 2024 9:41P Dictated by : SUSHIL CURRIE MD This examination was interpreted and the report reviewed and electronically signed by: SUSHIL CURRIE MD on Sep 24 2024 9:43PM EST [id number] Normal [facility] CNPDanitza 09-18-2024 EVANSN Telephone (KIZZYBOB) ----- MARS PETERSON ([id number]) 1955 M DEF Date Time Provider Department 09/18/24 ALMA GILL During your visit today, we recorded the following information about you: Priya Pedersen MA 09/18/2024 8:17 AM Signed Form received from [facility] placed on signing tray VANNA Rojas Julie, [...] heart failure (HCC*11/23/2021 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*11/23/2021 CVA (cerebral vascular accident) ([facility]) [I63.9] 11/23/2021 11/20/2022 Neuropathy [G62.9] 11/23/2021 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] 11/23/2021 09/18/2023 Umbilical hernia [...] 06/04/2022 Hyponatremia (more content not included)... Normal [facility] Yamileth 09-17-2024 DIMITRI Telephone (MUKESH) ----- MARS PETERSON ([id number]) 1955 M DEF Date Time Provider Department 09/17/24 ALMA GILL During your visit today, we recorded the following information about you: Priya Pedersen MA 09/17/2024 8:43 AM Signed [facility] faxed over a form placed on signing tray VANNA Rojas Brittny A, APRN.[facility] 09/17/2024 9:36 AM Signed Signed. Please return [...] heart failure (HCC*11/23/2021 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*11/23/2021 CVA (cerebral vascular accident) [...] glucose [R7 (more content not included)... Normal [facility] CNPN Telephone (AGFAMPLE) ----- MARS PETERSON ([id number]) 1955 M DEF Date Time Provider Department 09/17/24 ALMA GILL During your visit today, we recorded the following information about you: Priya Pedersen MA 09/17/2024 9:45 AM Signed [facility] PT from [facility] called requesting Verbal orders to start PT one time a week for nine weeks VANNA Rojas Brittny A, APRN.[facility] 09/17/2024 10:38 AM Signed Verbal order given [...] heart failure (HCC*11/23/2021 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*11/23/2021 CVA (cerebral vascular accident) [...] [R06.02] 02/15/2022 (more content not included)... Normal [facility] 09-10-2024 [facility] Telephone (AGFAMPLE) ----- MARS PETERSON ([id number]) 1955 M DEF Date Time Provider Department 09/10/24 ALMA GILL During your visit today, we recorded the following information about you: Priya Pedersen MA 09/10/2024 2:40 PM Signed [facility] lab called for a glucose reading of 35 VANNA Rojas Brittny A, APRN.[facility] 09/10/2024 2:44 PM Signed Reviewed labs, this reading was from yesterday. pressure testing technician states they did not receive the [...] for a freestyle VANNA Rojas Brittny A, APRN.[facility] 09/10/2024 4:06 PM Signed Rx for Freestyle sent in. Alma Gill APRN.[facility] 09/10/2024 4:06 PM Signed Addended by: ALMA [...] congestive hea (more content not included)... Normal [facility] CBC W Auto Differential pane l (Bld)on 09-09-2024 Basophils (Bld) [#/Vol] 10*3/uL Normal <0.11 [facility] Comment on above: Order Comment: Speci men Type: BLOOD SPECIMENOrdering Facility: External Submitter Address: , , Performed By: #### 5 7021-8 ####[facility] LABIA [id number] [place] [address] [place] Basophils/100 WBC (Bld) 0.1 % Normal [facility] Comment on above: Order Comment: Speci men Type: BLOOD SPECIMENOrdering Facility: External Submitter Address: , , Performed By: #### 5 7021-7 ####[facility] LABIA [id number] [place] [address] [place] Differential cell count method Nom (Bld) Auto Normal [facility] Comment on above: Order Comment: Speci men Type: BLOOD SPECIMENOrdering Facility: External Submitter Address: , , Performed By: #### 6 7021-4 ####[facility] LABCLIA [id number] [facility] [address] [place] [address] [place] Eosinophils (Bld) [#/Vol] 0.15 10*3/uL Normal <0.46 [facility] Comment on above: Order Comment: Speci men Type: BLOOD SPECIMENOrdering Facility: External Submitter Address: , , Performed By: #### 5 7021-8 ####[facility] LABCLIA [id number] [address] [place] [address] [place] Eosinophils/100 WBC (Bld) 1.4 % Normal [facility] Comment on above: Order Comment: Speci men Type: BLOOD SPECIMENOrdering Facility: External Submitter Address: , , Performed By: #### 5 7021-8 ####[facility] LABCLIA [id number] [address] [place] [address] [place] Erythrocyte distribution width (RBC) [Ratio] 13.9 % Normal 11.5-15.0 [facility] Comment on above: Order Comment: Speci men Type: BLOOD SPECIMENOrdering Facility: External Submitter Address: , , Performed By: #### 5 7021-8 ####[facility] LABCLIA [id number] [address] [place] [address] [place] Hematocrit (Bld) [Volume fraction] 42.2 % Normal 39.0-51.0 [facility] Comment on above: Order Comment: Speci men Type: BLOOD SPECIMENOrdering Facility: External Submitter Address: , , Performed By: #### 5 7021-8 ####[facility] LABCLIA [id number] [address] [place] [address] [place] Hemoglobin (Bld) [Mass/Vol] 13.0 g/dL Normal 13.0-17.0 [facility] Comment on above: Order Comment: Speci men Type: BLOOD SPECIMENOrdering Facility: External Submitter Address: , , Performed By: #### 5 7021-8 ####[facility] LABCLIA [id number] [address] Immature granulocytes (Bld) [#/Vol] 0.09 10*3/uL Normal <0.10 [facility] Comment on above: Order Comment: Speci men Type: BLOOD SPECIMENOrdering Facility: External Submitter Address: , , Performed By: #### 5 7021-8 ####[facility] LABCLIA [id number] [address] Immature granulocytes/100 WBC (Bld) 0.9 % Normal [facility] Comment on above: Order Comment: Speci men Type: BLOOD SPECIMENOrdering Facility: External Submitter Address: , , Performed By: #### 5 7021-8 ####[facility] LABIA [id number] [address] Lymphocytes (Bld) [#/Vol] 1.12 10*3/uL Normal 1.00-4.00 [facility] Comment on above: Order Comment: Speci men Type: BLOOD SPECIMENOrdering Facility: External Submitter Address: , , Performed By: #### 5 7021-8 ####[facility] LABIA [id number] [address] Lymphocytes/100 WBC (Bld) 10.6 % Normal [facility] Comment on above: Order Comment: Speci men Type: BLOOD SPECIMENOrdering Facility: External Submitter Address: , , Performed By: #### 5 7021-8 ####[facility] LABIA [id number] [address] MCH (RBC) [Entitic mass] 27.9 pg Normal 26.0-34.0 [facility] Comment on above: Order Comment: Speci men Type: BLOOD SPECIMENOrdering Facility: External Submitter Address: , , Performed By: #### 5 7021-8 ####[facility] LABCLIA [id number] [address] [place] [address] [place] MCHC (RBC) [Mass/Vol] 30.8 g/dL Normal 30.5-36.0 [facility] Comment on above: Order Comment: Speci men Type: BLOOD SPECIMENOrdering Facility: External Submitter Address: , , Performed By: #### 5 7021-8 ####[facility] LABCLIA [id number] [address] [place] [address] [facility] [place] MCV (RBC) [Entitic vol] 90.6 fL Normal 80.0-100.0 [facility] Comment on above: Order Comment: Speci men Type: BLOOD SPECIMENOrdering Facility: External Submitter Address: , , Performed By: #### 5 7021-8 ####[facility] LABCLIA [id number] [address] [place] [address] [place] Monocytes (Bld) [#/Vol] 1.26 10*3/uL High <0.87 [facility] Comment on above: Order Comment: Speci men Type: BLOOD SPECIMENOrdering Facility: External Submitter Address: , , Performed By: #### 5 7021-8 ####[facility] LABCLIA [id number] [address] [place] [address] [place] Monocytes/100 WBC (Bld) 12.0 % Normal [facility] Comment on above: Order Comment: Speci men Type: BLOOD SPECIMENOrdering Facility: External Submitter Address: , , Performed By: #### 5 7021-8 ####[facility] LABCLIA [id number] [address] [place] [address] [place] Neutrophils (Bld) [#/Vol] 7.91 10*3/uL High 1.45-7.50 [facility] Comment on above: Order Comment: Speci men Type: BLOOD SPECIMENOrdering Facility: External Submitter Address: , , Performed By: #### 5 7021-8 ####[facility] LABCLIA [id number] [address] [address] [place] Neutrophils/100 WBC (Bld) 75.0 % Normal [facility] Comment on above: Order Comment: Speci men Type: BLOOD SPECIMENOrdering Facility: External Submitter Address: , , Performed By: #### 5 7021-8 ####[facility] LABCLIA [id number] [address] [address] [place] Nucleated RBC (Bld) [#/Vol] 10*3/uL Normal <0.01 [facility] Comment on above: Order Comment: Speci men Type: BLOOD SPECIMENOrdering Facility: External Submitter Address: , , Performed By: #### 5 7021-8 ####[facility] LABIA [id number] [address] [address] [place] Nucleated RBC/100 WBC (Bld) [Ratio] 0.0 /100 WBC Normal [facility] Comment on above: Order Comment: Speci men Type: BLOOD SPECIMENOrdering Facility: External Submitter Address: , , Performed By: #### 5 7021-8 ####[facility] LABIA [id number] [address] [place] Platelet mean volume (Bld) [Entitic vol] 9.9 fL Normal 9.0-12.7 [facility] Comment on above: Order Comment: Speci men Type: BLOOD SPECIMENOrdering Facility: External Submitter Address: , , Performed By: #### 5 7021-8 ####[facility] LABCLIA [id number] [address] [place] [address] [place] Platelets (Bld) [#/Vol] 213 10*3/uL Normal 150-400 [facility] Comment on above: Order Comment: Speci men Type: BLOOD SPECIMENOrdering Facility: External Submitter Address: , , Performed By: #### 5 7021-8 ####[facility] LABCLIA [id number] [facility] [id number] [address] [facility] [place] RBC (Bld) [#/Vol] 4.66 10*6/uL Normal 4.20-6.00 [facility] Comment on above: Order Comment: Speci men Type: BLOOD SPECIMENOrdering Facility: External Submitter Address: , , Performed By: #### 5 7021-8 ####[facility] LABCLIA [id number] [facility] [address] [place] [address] [place] WBC (Bld) [#/Vol] 10.54 10*3/uL Normal 3.70-11.00 [facility] Comment on above: Order Comment: Speci men Type: BLOOD SPECIMENOrdering Facility: External Submitter Address: , , Performed By: #### 5 7021-8 ####[facility] LABCLIA [id number] [facility] [address] [place] [address] [facility] [place] Comprehensive metabolic 2000 panelon 09-09-2024 Albumin [Mass/Vol] 3.7 g/dL Low 3.9-4.9 [facility] Comment on above: Order Comment: Speci men Type: BLOOD SPECIMENOrdering Facility: External Submitter Address: , , Performed By: #### 2 4323-8 ####[facility] LABCLIA [id number] [facility] [id number], [place] [address] [place] ALP [Catalytic activity/Vol] 37 U/L Low 38-113 [facility] Comment on above: Order Comment: Speci men Type: BLOOD SPECIMENOrdering Facility: External Submitter Address: , , Performed By: #### 2 4323-8 ####[facility] LABCLIA [id number] [facility] [address] [place] [address] [facility] ALT [Catalytic activity/Vol] 22 U/L Normal 10-54 [facility] Comment on above: Order Comment: Speci men Type: BLOOD SPECIMENOrdering Facility: External Submitter Address: , , Performed By: #### 2 4323-8 ####[facility] LABCLIA [id number] [facility] [address] [place] [address] [place] Anion gap [Moles/Vol] 12 mmol/L Normal 8-15 [facility] Comment on above: Order Comment: Speci men Type: BLOOD SPECIMENOrdering Facility: External Submitter Address: , , Performed By: #### 2 4323-8 ####[facility] LABCLIA [id number] [facility] [address] [place] [address] [place] AST [Catalytic activity/Vol] 24 U/L Normal 14-40 [facility] Comment on above: Order Comment: Speci men Type: BLOOD SPECIMENOrdering Facility: External Submitter Address: , , Performed By: #### 2 4323-8 ####[facility] LABCLIA [id number] [address] [address] [place] Bilirubin [Mass/Vol] 0.3 mg/dL Normal 0.2-1.3 [facility] Comment on above: Order Comment: Speci men Type: BLOOD SPECIMENOrdering Facility: External Submitter Address: , , Performed By: #### 2 4323-8 ####[facility] LABCLIA [id number] [address] [address] [place] Calcium [Mass/Vol] 9.0 mg/dL Normal 8.5-10.2 [facility] Comment on above: Order Comment: Speci men Type: BLOOD SPECIMENOrdering Facility: External Submitter Address: , , Performed By: #### 2 4323-8 ####[facility] LABCLIA [id number] [facility] [address] [place] [address] [place] Chloride [Moles/Vol] 93 mmol/L Low 98-107 [facility] Comment on above: Order Comment: Speci men Type: BLOOD SPECIMENOrdering Facility: External Submitter Address: , , Performed By: #### 2 4323-8 ####[facility] LABCLIA [id number] [address] [place] [address] [place] CO2 [Moles/Vol] 25 mmol/L Normal 22-30 [facility] Comment on above: Order Comment: Speci men Type: BLOOD SPECIMENOrdering Facility: External Submitter Address: , , Performed By: #### 2 4323-8 ####[facility] LABIA [id number] [address] [address] [place] Creatinine [Mass/Vol] 1.14 mg/dL Normal 0.73-1.22 [facility] Comment on above: Order Comment: Speci men Type: BLOOD SPECIMENOrdering Facility: External Submitter Address: , , Performed By: #### 2 4323-8 ####[facility] LABIA [id number] [address] [address] [facility] Creatinine and Glomerular filtration rate.predicted panel (S/P/Bld) 69 mL/min/1.73m??? Normal >=60 [facility] Comment on above: Order Comment: Speci [...] actual GFR. Performed By: #### 2 4323-8 ####[facility] LABIA [id number] [address] [place] [address] [place] Glucose [Mass/Vol] 35 mg/dL Critically low 74-99 [facility] Comment on above: Order Comment: [place] men Type: BLOOD SPECIMENOrdering Facility: External Submitter Address: , , Result Comment: The [place] Diabetes Association (ADA) provides guidance for cutoff [...] Standards of Medical Care in Diabetes 2016, [place] [employer]. Diabetes Care. 2016.39(Suppl 1). Performed By: #### 2 4323-8 ####[facility] LABCLIA [id number] [place] [address] [place] Potassium [Moles/Vol] 4.5 mmol/L Normal 3.7-5.1 [facility] Comment on above: Order Comment: El[place] egan Type: BLOOD SPECIMENOrdering Facility: External Submitter Address: , , Performed By: #### 2 432-8 ####[facility] LABCLIA [id number] [place] [address] [place] Protein [Mass/Vol] 6.6 g/dL Normal 6.3-8.0 [facility] Comment on above: Order Comment: Elgin egan Type: BLOOD SPECIMENOrdering Facility: External Submitter Address: , , Performed By: #### 2 432-8 ####[facility] LABCLIA [id number] [place] [address] [place] Sodium [Moles/Vol] 130 mmol/L Low 136-144 [facility] Comment on above: Order Comment: El[place] egan Type: BLOOD SPECIMENOrdering Facility: External Submitter Address: , , Performed By: #### 2 4323-8 ####[facility] LABCLIA [id number] [place] [address] [place] Urea nitrogen [Mass/Vol] 10 mg/dL Normal 9-24 [facility] Comment on above: Order Comment: Elgin egan Type: BLOOD SPECIMENOrdering Facility: External Submitter Address: , , Performed By: #### 2 4323-8 ####[facility] LABCLIA [id number] [facility] [address] [place] [address] [facility] CBC W Auto Differential pane l (Bld)on 08-31-2024 Basophils (Bld) [#/Vol] 10*3/uL Normal <0.11 [facility] Comment on above: Order Comment: Speci men Type: BLOOD SPECIMENOrdering Facility: External Submitter Address: , , Performed By: #### 5 7021-8 ####[facility] LABCLIA [id number] [facility] [address] [place] [address] [facility] Basophils/100 WBC (Bld) 0.2 % Normal [facility] Comment on above: Order Comment: Speci men Type: BLOOD SPECIMENOrdering Facility: External Submitter Address: , , Performed By: #### 5 7021-8 ####[facility] LABCLIA [id number] [facility] [address] [place] [address] [facility] Differential cell count method Nom (Bld) Auto Normal [facility] Comment on above: Order Comment: Speci men Type: BLOOD SPECIMENOrdering Facility: External Submitter Address: , , Performed By: #### 5 7021-8 ####[facility] LABCLIA [id number] [address] [place] [address] [place] Eosinophils (Bld) [#/Vol] 0.16 10*3/uL Normal <0.46 [facility] Comment on above: Order Comment: Speci men Type: BLOOD SPECIMENOrdering Facility: External Submitter Address: , , Performed By: #### 5 7021-8 ####[facility] LABCLIA [id number] [facility] [address] [place] [address] [facility] Eosinophils/100 WBC (Bld) 1.3 % Normal [facility] Comment on above: Order Comment: Speci men Type: BLOOD SPECIMENOrdering Facility: External Submitter Address: , , Performed By: #### 5 7021-8 ####[facility] LABCLIA [id number] [address] [place] [address] [place] [facility] Erythrocyte distribution width (RBC) [Ratio] 14.2 % Normal 11.5-15.0 [facility] Comment on above: Order Comment: Speci men Type: BLOOD SPECIMENOrdering Facility: External Submitter Address: , , Performed By: #### 5 7021-8 ####[facility] LABIA [id number] [address] [place] [address] [place] [address] Hematocrit (Bld) [Volume fraction] 40.5 % Normal 39.0-51.0 [facility] Comment on above: Order Comment: Speci men Type: BLOOD SPECIMENOrdering Facility: External Submitter Address: , , Performed By: #### 5 7021-8 ####[facility] LABIA [id number] [id number] [place] [address] [place] Hemoglobin (Bld) [Mass/Vol] 12.4 g/dL Low 13.0-17.0 [facility] Comment on above: Order Comment: Speci men Type: BLOOD SPECIMENOrdering Facility: External Submitter Address: , , Performed By: #### 5 7021-8 ####[facility] LABIA [id number] [address] [place] [address] [place] Immature granulocytes (Bld) [#/Vol] 0.10 10*3/uL High <0.10 [facility] Comment on above: Order Comment: Speci men Type: BLOOD SPECIMENOrdering Facility: External Submitter Address: , , Performed By: #### 5 7021-8 ####[facility] LABIA [id number] [address] [address], [facility] Immature granulocytes/100 WBC (Bld) 0.8 % Normal [facility] Comment on above: Order Comment: Speci men Type: BLOOD SPECIMENOrdering Facility: External Submitter Address: , , Performed By: #### 5 7021-8 ####[facility] LABCLIA [id number] [address] [place] [address] [place] Lymphocytes (Bld) [#/Vol] 1.72 10*3/uL Normal 1.00-4.00 [facility] Comment on above: Order Comment: Speci men Type: BLOOD SPECIMENOrdering Facility: External Submitter Address: , , Performed By: #### 5 7021-8 ####[facility] LABIA [id number] [address] [place] [address] [place] [facility] Lymphocytes/100 WBC (Bld) 13.5 % Normal [facility] Comment on above: Order Comment: Speci men Type: BLOOD SPECIMENOrdering Facility: External Submitter Address: , , Performed By: #### 5 7021-8 ####[facility] LABIA [id number] [address] [place] [address] [place] MCH (RBC) [Entitic mass] 27.5 pg Normal 26.0-34.0 [facility] Comment on above: Order Comment: Speci men Type: BLOOD SPECIMENOrdering Facility: External Submitter Address: , , Performed By: #### 5 7021-8 ####[facility] LABIA [id number] [address] [place] [address] [place] MCHC (RBC) [Mass/Vol] 30.6 g/dL Normal 30.5-36.0 [facility] Comment on above: Order Comment: Speci men Type: BLOOD SPECIMENOrdering Facility: External Submitter Address: , , Performed By: #### 5 7021-8 ####[facility] LABIA [id number] [address] [place] [address] [place] MCV (RBC) [Entitic vol] 89.8 fL Normal 80.0-100.0 [facility] Comment on above: Order Comment: Speci men Type: BLOOD SPECIMENOrdering Facility: External Submitter Address: , , Performed By: #### 5 7021-8 ####[facility] LABCLIA [id number] [facility] [id number], [place] [address] [place] Monocytes (Bld) [#/Vol] 1.61 10*3/uL High <0.87 [facility] Comment on above: Order Comment: Speci men Type: BLOOD SPECIMENOrdering Facility: External Submitter Address: , , Performed By: #### 5 7021-8 ####[facility] LABCLIA [id number] [facility] [id number] [address] [place] Monocytes/100 WBC (Bld) 12.6 % Normal [facility] Comment on above: Order Comment: Speci men Type: BLOOD SPECIMENOrdering Facility: External Submitter Address: , , Performed By: #### 5 7021-8 ####[facility] LABCLIA [id number] [facility] [address] [place] [address] [place] Neutrophils (Bld) [#/Vol] 9.15 10*3/uL High 1.45-7.50 [facility] Comment on above: Order Comment: Speci men Type: BLOOD SPECIMENOrdering Facility: External Submitter Address: , , Performed By: #### 5 7021-8 ####[facility] LABCLIA [id number] [facility] [address] [place] [address] [place] Neutrophils/100 WBC (Bld) 71.6 % Normal [facility] Comment on above: Order Comment: Speci men Type: BLOOD SPECIMENOrdering Facility: External Submitter Address: , , Performed By: #### 5 7021-8 ####[facility] LABCLIA [id number] [facility] [address] [place] [address] [place] Nucleated RBC (Bld) [#/Vol] 10*3/uL Normal <0.01 [facility] Comment on above: Order Comment: Speci men Type: BLOOD SPECIMENOrdering Facility: External Submitter Address: , , Performed By: #### 5 7021-8 ####[facility] LABCLIA [id number] [facility] [address] [place] [address] [place] Nucleated RBC/100 WBC (Bld) [Ratio] 0.0 /100 WBC Normal [facility] Comment on above: Order Comment: Speci men Type: BLOOD SPECIMENOrdering Facility: External Submitter Address: , , Performed By: #### 5 7021-8 ####[facility] LABCLIA [id number] [address] [place] [address] [facility] [place] Platelet mean volume (Bld) [Entitic vol] 9.7 fL Normal 9.0-12.7 [facility] Comment on above: Order Comment: Speci men Type: BLOOD SPECIMENOrdering Facility: External Submitter Address: , , Performed By: #### 5 7021-8 ####[facility] LABIA [id number] [address] [place] [address] [place] Platelets (Bld) [#/Vol] 247 10*3/uL Normal 150-400 [facility] Comment on above: Order Comment: Speci men Type: BLOOD SPECIMENOrdering Facility: External Submitter Address: , , Performed By: #### 5 7021-8 ####[facility] LABIA [id number] [address] [place] [address] [place] RBC (Bld) [#/Vol] 4.51 10*6/uL Normal 4.20-6.00 [facility] Comment on above: Order Comment: Speci men Type: BLOOD SPECIMENOrdering Facility: External Submitter Address: , , Performed By: #### 5 7021-8 ####[facility] LABIA [id number] [address] [place] [address] [place] WBC (Bld) [#/Vol] 12.76 10*3/uL High 3.70-11.00 [facility] Comment on above: Order Comment: Speci men Type: BLOOD SPECIMENOrdering Facility: External Submitter Address: , , Performed By: #### 5 7021-8 ####[facility] LABCLIA [id number] [place] [address] [place] CNOVon 08-28-2024 CNOV Normal [facility] ECHOon 08-26-2024 CONCLUSIONS: - Technically difficult exam [...] [facility] Echocardiography Report: Transthoracic Echo [facility] Date of service: 08/26/2024 11:45:21 AM Ordering physician: MITCHELL CARUSO Indication: Suspected pulmonary hypertension Technologist: Phoebe Espinosa [facility] Interpreting physician: Brad Downs MD PATIENT: Name: [...] or not interrogated. [facility] Echocardiography Echocardiography Rep ort: Transthoracic Echo [facility] Date of service: 08/26/2024 11:45:21 AM Ordering physician: MITCHELL CARUSO Indication: Suspected pulmonary hypertension Technologist: Phoebe Espinosa [facility] Interpreting physician: Brad Downs MD PATIENT: Name: [...] * * * Final * * * [facility] [facility] : [id number] Normal [facility] NURSING PROGon 08-26-2024 NURSING PROG HNO ID: [id number] Author: MITCHELL PALOMARES, RN Service: Nursing Author Type: Registered Nurse Type: Nursing Progress Note Filed: 08/26/2024 13:00 Note Text: This nurse infused 1 ML dilute Difinity IV at 1235, another 1 ML dilute Difinity infused at 1238 as directed by Echo tach, and another 2 ML dilute Difinity infused a7 1241 as directed by the surveying technician for a total of 4 ML Dilute Difinity IV injected to the Left PIV. Patient tolerated the procedure well. The PIV was removed without issue and patient was assisted from Echo table to wheelchair. Normal [facility] CBC W Auto Differential pane l (Bld)on 08-24-2024 Basophils (Bld) [#/Vol] 10*3/uL Normal <0.11 [facility] Comment on above: Order Comment: Speci men Type: BLOOD SPECIMENOrdering Facility: External Submitter Address: , , Performed By: #### 5 7021-8 ####[facility] LABCLIA [id number] [address] [place] [address] [place] Basophils/100 WBC (Bld) 0.2 % Normal [facility] Comment on above: Order Comment: Speci men Type: BLOOD SPECIMENOrdering Facility: External Submitter Address: , , Performed By: #### 5 7021-8 ####[facility] LABCLIA [id number] [address] [place] [address] [place] Differential cell count method Nom (Bld) Auto Normal [facility] Comment on above: Order Comment: Speci men Type: BLOOD SPECIMENOrdering Facility: External Submitter Address: , , Performed By: #### 5 7021-8 ####[facility] LABCLIA [id number] [address] [place] [address] [place] Eosinophils (Bld) [#/Vol] 0.05 10*3/uL Normal <0.46 [facility] Comment on above: Order Comment: Speci men Type: BLOOD SPECIMENOrdering Facility: External Submitter Address: , , Performed By: #### 5 7021-8 ####[facility] LABCLIA [id number] [address] [place] [address] [place] Eosinophils/100 WBC (Bld) 0.5 % Normal [facility] Comment on above: Order Comment: Speci men Type: BLOOD SPECIMENOrdering Facility: External Submitter Address: , , Performed By: #### 5 7021-8 ####[facility] LABCLIA [id number] [address] [place] [address] [place] Erythrocyte distribution width (RBC) [Ratio] 14.4 % Normal 11.5-15.0 [facility] Comment on above: Order Comment: Speci men Type: BLOOD SPECIMENOrdering Facility: External Submitter Address: , , Performed By: #### 5 7021-8 ####[facility] LABIA [id number] [address], [address] Hematocrit (Bld) [Volume fraction] 40.2 % Normal 39.0-51.0 [facility] Comment on above: Order Comment: Speci men Type: BLOOD SPECIMENOrdering Facility: External Submitter Address: , , Performed By: #### 5 7021-8 ####[facility] [id number] [address] [place] Hemoglobin (Bld) [Mass/Vol] 12.6 g/dL Low 13.0-17.0 [facility] Comment on above: Order Comment: Speci men Type: BLOOD SPECIMENOrdering Facility: External Submitter Address: , , Performed By: #### 5 7021-8 ####[facility] LABIA [id number] [address], [address] Immature granulocytes (Bld) [#/Vol] 0.10 10*3/uL High <0.10 [facility] Comment on above: Order Comment: Speci men Type: BLOOD SPECIMENOrdering Facility: External Submitter Address: , , Performed By: #### 5 7021-8 ####[facility] LABIA [id number] [place] [address] [facility] Immature granulocytes/100 WBC (Bld) 0.9 % Normal [facility] Comment on above: Order Comment: Speci men Type: BLOOD SPECIMENOrdering Facility: External Submitter Address: , , Performed By: #### 5 7021-8 ####[facility] LABCLIA [id number] [id number] [place] [address] [place] Lymphocytes (Bld) [#/Vol] 0.83 10*3/uL Low 1.00-4.00 [facility] Comment on above: Order Comment: Speci men Type: BLOOD SPECIMENOrdering Facility: External Submitter Address: , , Performed By: #### 5 7021-8 ####[facility] LABIA [id number] [address] Lymphocytes/100 WBC (Bld) 7.9 % Normal [facility] Comment on above: Order Comment: Speci men Type: BLOOD SPECIMENOrdering Facility: External Submitter Address: , , Performed By: #### 5 7021-8 ####[facility] LABIA [id number] [place] [address] [place] MCH (RBC) [Entitic mass] 28.2 pg Normal 26.0-34.0 [facility] Comment on above: Order Comment: Speci men Type: BLOOD SPECIMENOrdering Facility: External Submitter Address: , , Performed By: #### 5 7021-8 ####[facility] LABIA [id number] [address] [place] MCHC (RBC) [Mass/Vol] 31.3 g/dL Normal 30.5-36.0 [facility] Comment on above: Order Comment: Speci men Type: BLOOD SPECIMENOrdering Facility: External Submitter Address: , , Performed By: #### 5 7021-8 ####[facility] LABIA [id number] [place] [address] [place] MCV (RBC) [Entitic vol] 89.9 fL Normal 80.0-100.0 [facility] Comment on above: Order Comment: Speci men Type: BLOOD SPECIMENOrdering Facility: External Submitter Address: , , Performed By: #### 5 7021-8 ####[facility] LABCLIA [id number] [address] [place] [address] [place] Monocytes (Bld) [#/Vol] 0.78 10*3/uL Normal <0.87 [facility] Comment on above: Order Comment: Speci men Type: BLOOD SPECIMENOrdering Facility: External Submitter Address: , , Performed By: #### 5 7021-8 ####[facility] LABCLIA [id number] [address] [place] [address] [place] Monocytes/100 WBC (Bld) 7.4 % Normal [facility] Comment on above: Order Comment: Speci men Type: BLOOD SPECIMENOrdering Facility: External Submitter Address: , , Performed By: #### 5 7021-8 ####[facility] LABCLIA [id number] [address] [place] [address] [place] Neutrophils (Bld) [#/Vol] 8.77 10*3/uL High 1.45-7.50 [facility] Comment on above: Order Comment: Speci men Type: BLOOD SPECIMENOrdering Facility: External Submitter Address: , , Performed By: #### 5 7021-8 ####[facility] LABCLIA [id number] [address] [place] [address] [place] Neutrophils/100 WBC (Bld) 83.1 % Normal [facility] Comment on above: Order Comment: Speci men Type: BLOOD SPECIMENOrdering Facility: External Submitter Address: , , Performed By: #### 5 7021-8 ####[facility] LABCLIA [id number] [address] [place] [address] [place] Nucleated RBC (Bld) [#/Vol] 10*3/uL Normal <0.01 [facility] Comment on above: Order Comment: Speci men Type: BLOOD SPECIMENOrdering Facility: External Submitter Address: , , Performed By: #### 5 7021-8 ####[facility] LABCLIA [id number] [address] [place] [address] [place] Nucleated RBC/100 WBC (Bld) [Ratio] 0.0 /100 WBC Normal [facility] Comment on above: Order Comment: Speci men Type: BLOOD SPECIMENOrdering Facility: External Submitter Address: , , Performed By: #### 5 7021-8 ####[facility] LABCLIA [id number] [address] [place] [address] [place] Platelet mean volume (Bld) [Entitic vol] 9.4 fL Normal 9.0-12.7 [facility] Comment on above: Order Comment: Speci men Type: BLOOD SPECIMENOrdering Facility: External Submitter Address: , , Performed By: #### 5 7021-8 ####[facility] LABCLIA [id number] [address] [place] [address] [place] Platelets (Bld) [#/Vol] 252 10*3/uL Normal 150-400 [facility] Comment on above: Order Comment: Speci men Type: BLOOD SPECIMENOrdering Facility: External Submitter Address: , , Performed By: #### 5 7021-8 ####[facility] LABCLIA [id number] [address] [place] [address] [place] RBC (Bld) [#/Vol] 4.47 10*6/uL Normal 4.20-6.00 [facility] Comment on above: Order Comment: Speci men Type: BLOOD SPECIMENOrdering Facility: External Submitter Address: , , Performed By: #### 5 7021-8 ####[facility] LABCLIA [id number] [address] [place] [address] [place] WBC (Bld) [#/Vol] 10.55 10*3/uL Normal 3.70-11.00 [facility] Comment on above: Order Comment: Speci men Type: BLOOD SPECIMENOrdering Facility: External Submitter Address: , , Performed By: #### 5 7021-8 ####[facility] LABCLIA [id number] [facility] [address] [place] [address] [place] Comprehensive metabolic 2000 panelon 08-24-2024 Albumin [Mass/Vol] 3.8 g/dL Low 3.9-4.9 [facility] Comment on above: Order Comment: Speci men Type: BLOOD SPECIMENOrdering Facility: External Submitter Address: , , Performed By: #### 2 4323-8 ####[facility] LABCLIA [id number] [facility] [address] [place] [address] [place] ALP [Catalytic activity/Vol] 43 U/L Normal 38-113 [facility] Comment on above: Order Comment: Speci men Type: BLOOD SPECIMENOrdering Facility: External Submitter Address: , , Performed By: #### 2 4323-8 ####[facility] LABCLIA [id number] [facility] [address] [place] [address] [place] ALT [Catalytic activity/Vol] 15 U/L Normal 10-54 [facility] Comment on above: Order Comment: Speci men Type: BLOOD SPECIMENOrdering Facility: External Submitter Address: , , Performed By: #### 2 4323-8 ####[facility] LABCLIA [id number] [facility] [address] [place] [address] [place] Anion gap [Moles/Vol] 12 mmol/L Normal 8-15 [facility] Comment on above: Order Comment: Speci men Type: BLOOD SPECIMENOrdering Facility: External Submitter Address: , , Performed By: #### 2 4323-8 ####[facility] LABCLIA [id number] [place] [facility] [address] [place] [address] [place] AST [Catalytic activity/Vol] 22 U/L Normal 14-40 [facility] Comment on above: Order Comment: Speci men Type: BLOOD SPECIMENOrdering Facility: External Submitter Address: , , Performed By: #### 2 4323-8 ####[facility] LABCLIA [id number] [id number], [place] [address] [place] Bilirubin [Mass/Vol] 0.4 mg/dL Normal 0.2-1.3 [facility] Comment on above: Order Comment: Speci men Type: BLOOD SPECIMENOrdering Facility: External Submitter Address: , , Performed By: #### 2 4323-8 ####[facility] LABCLIA [id number] [id number], [place] [address] [place] Calcium [Mass/Vol] 9.3 mg/dL Normal 8.5-10.2 [facility] Comment on above: Order Comment: Speci men Type: BLOOD SPECIMENOrdering Facility: External Submitter Address: , , Performed By: #### 2 4323-8 ####[facility] LABCLIA [id number] [facility] [address] [place] [address] [place] Chloride [Moles/Vol] 89 mmol/L Low 98-107 [facility] Comment on above: Order Comment: Speci men Type: BLOOD SPECIMENOrdering Facility: External Submitter Address: , , Performed By: #### 2 4323-8 ####[facility] LABCLIA [id number] [facility] [address] [place] [address] [place] CO2 [Moles/Vol] 26 mmol/L Normal 22-30 [facility] Comment on above: Order Comment: Speci men Type: BLOOD SPECIMENOrdering Facility: External Submitter Address: , , Performed By: #### 2 4323-8 ####[facility] LABCLIA [id number] [id number], [place] [address] [place] Creatinine [Mass/Vol] 0.93 mg/dL Normal 0.73-1.22 [facility] Comment on above: Order Comment: Speci men Type: BLOOD SPECIMENOrdering Facility: External Submitter Address: , , Performed By: #### 2 4323-8 ####[facility] LABCLIA [id number] [place] [id number] [place] Creatinine and Glomerular filtration rate.predicted panel (S/P/Bld) 88 mL/min/1.73m??? Normal >=60 [facility] Comment on above: Order Comment: [place] [...] actual GFR. Performed By: #### 2 4323-8 ####[facility] [id number] [place] [address] [place] Glucose [Mass/Vol] 88 mg/dL Normal 74-99 [facility] Comment on above: Order Comment: [place] egan Type: BLOOD SPECIMENOrdering Facility: External Submitter Address: , , Result Comment: The [place] [employer] (ADA) provides guidance for cutoff [...] Standards of Medical Care in Diabetes 2016, [place] [employer]. Diabetes Care. 2016.39(Suppl 1). Performed By: #### 2 4323-8 ####[facility] [id number] [address] [address] [place] Potassium [Moles/Vol] 4.4 mmol/L Normal 3.7-5.1 [facility] Comment on above: Order Comment: [place] egan Type: BLOOD SPECIMENOrdering Facility: External Submitter Address: , , Performed By: #### 2 4323-8 ####[facility] LABCLIA [id number] [facility] [address] [place] [address] [place] Protein [Mass/Vol] 6.9 g/dL Normal 6.3-8.0 [facility] Comment on above: Order Comment: Speci men Type: BLOOD SPECIMENOrdering Facility: External Submitter Address: , , Performed By: #### 2 4323-8 ####[facility] LABCLIA [id number] [facility] [address] [place] [address] [place] Sodium [Moles/Vol] 127 mmol/L Low 136-144 [facility] Comment on above: Order Comment: Speci men Type: BLOOD SPECIMENOrdering Facility: External Submitter Address: , , Performed By: #### 2 4323-8 ####[facility] LABCLIA [id number] [facility] [address] [place] [address] [place] Urea nitrogen [Mass/Vol] 8 mg/dL Low 9-24 [facility] Comment on above: Order Comment: Speci men Type: BLOOD SPECIMENOrdering Facility: External Submitter Address: , , Performed By: #### 2 4323-8 ####[facility] LABCLIA [id number] [facility] [address] [place] [address] [place] Lipid 1996 panelon 5 Cholesterol [Mass/Vol] 120 mg/dL Normal <200 [facility] Comment on above: Order Comment: Speci men Type: BLOOD SPECIMENOrdering Facility: External Submitter Address: , , Result Comment: <200 mg/dL, Desirable 200-239 mg/dL, Borderline high>239 mg/dL, High Performed By: #### 2 4331-1 ####[facility] LABCLIA [id number] [facility] [address] [place] [address] [place] Cholesterol in HDL [Mass/Vol] 55 mg/dL Normal >39 [facility] Comment on above: Order Comment: Speci men Type: BLOOD SPECIMENOrdering Facility: External Submitter Address: , , Result Comment: 40-5 9 mg/dL, Acceptable>59 mg/dL, High: Negative risk factor for coronary heart disease<40 mg/dL, Low: Positive risk factor for coronary heart disease Performed By: #### 2 4331-1 ####[facility] LABCLIA [id number] [address] [place] [address] [place] Cholesterol in LDL [Mass/Vol] 48 mg/dL Normal <100 [facility] Comment on above: Order Comment: Isadorajimmy egan Type: BLOOD SPECIMENOrdering Facility: External Submitter Address: , , Result Comment: <100 mg/dL, Optimal 100-129 mg/dL, Near optimal/above optimal 130-159 mg/dL, Borderline high 160-189 mg/dL, High>189 mg/dL, Very highSecondary prevention optimal LDL Cholesterol levels are recommended to be < 70 mg/dL Performed By: #### 2 4331-1 ####[facility]BRIGHTL[facility] [id number] [address] [place] [address] [place] Cholesterol in LDL/Cholesterol in HDL [Mass ratio] 0.87 {ratio} Normal <2.54 [facility] Comment on above: Order Comment: Isadorajimmy egan Type: BLOOD SPECIMENOrdering Facility: External Submitter Address: , , Result Comment: Refe rence:1. National Cholesterol Education Program ATP III Guideline At-A-Glance Quick Desk Reference: National Heart, Lung, and Blood [place]. National Institutes of Health. 2001: NIH Publication No. 01-3305.2. An International Atherosclerosis Society position paper: global recommendations for the management of dyslipidemia: executive summary, Atherosclerosis. 2014: 232(2):410-413. Performed By: #### 2 4331-1 ####[facility] [id number] [address] [place] [address] [place] Cholesterol in VLDL [Mass/Vol] 17 mg/dL Normal <30 [facility] Comment on above: Order Comment: El[place] egan Type: BLOOD SPECIMENOrdering Facility: External Submitter Address: , , Performed By: #### 2 4331-1 ####[facility] LABCLIA [id number] [address] Cholesterol non HDL [Mass/Vol] 65 mg/dL Normal <130 [facility] Comment on above: Order Comment: Speci men Type: BLOOD SPECIMENOrdering Facility: External Submitter Address: , , Result Comment: <130 mg/dL, Optimal 130-159 mg/dL, Near optimal/above optimal 160-189 mg/dL, Borderline high 190-219 mg/dL, High>219 mg/dL, Very highSecondary prevention optimal non HDL Cholesterol levels are recommended to be <100 mg/dL Performed By: #### 2 4331-1 ####[facility] LABCLIA [id number] [address] Cholesterol.total/Chol esterol in HDL [Mass ratio] 2.18 {ratio} Normal <5.10 [facility] Comment on above: Order Comment: Speci men Type: BLOOD SPECIMENOrdering Facility: External Submitter Address: , , Performed By: #### 2 4331-1 ####[facility] LABCLIA [id number] [address] FASTING TIME Unknown Normal [facility] Comment on above: Order Comment: Speci men Type: BLOOD SPECIMENOrdering Facility: External Submitter Address: , , Performed By: #### 2 4331-1 ####[facility] LABCLIA [id number] [place] [address] [facility] Triglyceride [Mass/Vol] 84 mg/dL Normal <150 [facility] Comment on above: Order Comment: Speci men Type: BLOOD SPECIMENOrdering Facility: External Submitter Address: , , Result Comment: <150 mg/dL, Normal 150-199 mg/dL, Borderline high 200-499 mg/dL, High>499 mg/dL, Very high Performed By: #### 2 4331-1 ####[facility] LABCLIA [id number] [address] [place] [address] [place] CBC W Auto Differential pane l (Bld)on 08-18-2024 Basophils (Bld) [#/Vol] 0.06 10*3/uL Normal <0.11 [facility] Comment on above: Order Comment: Speci men Type: BLOOD SPECIMENOrdering Facility: External Submitter Address: , , Performed By: #### 5 7021-8 ####[facility] LABIA [id number] [address] [place] [address] [place] [facility] Basophils/100 WBC (Bld) 0.7 % Normal [facility] Comment on above: Order Comment: Speci men Type: BLOOD SPECIMENOrdering Facility: External Submitter Address: , , Performed By: #### 5 7021-8 ####[facility] LABIA [id number] [address], [facility]95 [place] Differential cell count method Nom (Bld) Auto Normal [facility] Comment on above: Order Comment: Speci men Type: BLOOD SPECIMENOrdering Facility: External Submitter Address: , , Performed By: #### 5 7021-8 ####[facility] LABIA [id number] [address] [place] [address] [place] Eosinophils (Bld) [#/Vol] 0.44 10*3/uL Normal <0.46 [facility] Comment on above: Order Comment: Speci men Type: BLOOD SPECIMENOrdering Facility: External Submitter Address: , , Performed By: #### 5 7021-8 ####[facility] LABCLIA [id number] [address] [place] [address] [facility] Eosinophils/100 WBC (Bld) 4.8 % Normal [facility] Comment on above: Order Comment: Speci men Type: BLOOD SPECIMENOrdering Facility: External Submitter Address: , , Performed By: #### 5 7021-8 ####[facility] LABCLIA [id number] [address] [address] [place] OF [facility] Erythrocyte distribution width (RBC) [Ratio] 14.7 % Normal 11.5-15.0 [facility] Comment on above: Order Comment: Speci men Type: BLOOD SPECIMENOrdering Facility: External Submitter Address: , , Performed By: #### 5 7021-8 ####[facility] LABIA [id number] [address], [address] Hematocrit (Bld) [Volume fraction] 42.7 % Normal 39.0-51.0 [facility] Comment on above: Order Comment: Speci men Type: BLOOD SPECIMENOrdering Facility: External Submitter Address: , , Performed By: #### 5 7021-8 ####[facility] LABIA [id number] [address], [place] [address] [place] [address] [place] Hemoglobin (Bld) [Mass/Vol] 12.8 g/dL Low 13.0-17.0 [facility] Comment on above: Order Comment: Speci men Type: BLOOD SPECIMENOrdering Facility: External Submitter Address: , , Performed By: #### 5 7021-8 ####[facility] LABIA [id number] [address], [address] STATES [facility] Immature granulocytes (Bld) [#/Vol] 0.04 10*3/uL Normal <0.10 [facility] Comment on above: Order Comment: Speci men Type: BLOOD SPECIMENOrdering Facility: External Submitter Address: , , Performed By: #### 5 7021-8 ####[facility] LABIA [id number] [address], [facility]95 [facility] Immature granulocytes/100 WBC (Bld) 0.4 % Normal [facility] Comment on above: Order Comment: Speci men Type: BLOOD SPECIMENOrdering Facility: External Submitter Address: , , Performed By: #### 5 7021-8 ####[facility] LABCLIA [id number] [address] Lymphocytes (Bld) [#/Vol] 1.67 10*3/uL Normal 1.00-4.00 [facility] Comment on above: Order Comment: Speci men Type: BLOOD SPECIMENOrdering Facility: External Submitter Address: , , Performed By: #### 5 7021-8 ####[facility] LABCLIA [id number] [address] Lymphocytes/100 WBC (Bld) 18.2 % Normal [facility] Comment on above: Order Comment: Speci men Type: BLOOD SPECIMENOrdering Facility: External Submitter Address: , , Performed By: #### 5 7021-8 ####[facility] LABIA [id number] [address] [place] MCH (RBC) [Entitic mass] 27.8 pg Normal 26.0-34.0 [facility] Comment on above: Order Comment: Speci men Type: BLOOD SPECIMENOrdering Facility: External Submitter Address: , , Performed By: #### 5 7021-8 ####[facility] LABIA [id number] [address] MCHC (RBC) [Mass/Vol] 30.0 g/dL Low 30.5-36.0 [facility] Comment on above: Order Comment: Speci men Type: BLOOD SPECIMENOrdering Facility: External Submitter Address: , , Performed By: #### 5 7021-8 ####[facility] LABIA [id number] [place] [address] [facility] MCV (RBC) [Entitic vol] 92.6 fL Normal 80.0-100.0 [facility] Comment on above: Order Comment: Speci men Type: BLOOD SPECIMENOrdering Facility: External Submitter Address: , , Performed By: #### 5 7021-8 ####[facility] LABCLIA [id number] [facility] [id number], [place] [address] [place] Monocytes (Bld) [#/Vol] 1.16 10*3/uL High <0.87 [facility] Comment on above: Order Comment: Speci men Type: BLOOD SPECIMENOrdering Facility: External Submitter Address: , , Performed By: #### 5 7021-8 ####[facility] LABCLIA [id number] [place] [facility] [id number], [place] [address] [place] Monocytes/100 WBC (Bld) 12.6 % Normal [facility] Comment on above: Order Comment: Speci men Type: BLOOD SPECIMENOrdering Facility: External Submitter Address: , , Performed By: #### 5 7021-8 ####[facility] LABCLIA [id number] [facility] [address] [place] [address] [place] Neutrophils (Bld) [#/Vol] 5.80 10*3/uL Normal 1.45-7.50 [facility] Comment on above: Order Comment: Speci men Type: BLOOD SPECIMENOrdering Facility: External Submitter Address: , , Performed By: #### 5 7021-8 ####[facility] LABCLIA [id number] [facility] [address] [place] [address] [place] Neutrophils/100 WBC (Bld) 63.3 % Normal [facility] Comment on above: Order Comment: Speci men Type: BLOOD SPECIMENOrdering Facility: External Submitter Address: , , Performed By: #### 5 7021-8 ####[facility] LABCLIA [id number] [facility] [address] [place] [address] [place] Nucleated RBC (Bld) [#/Vol] 10*3/uL Normal <0.01 [facility] Comment on above: Order Comment: Speci men Type: BLOOD SPECIMENOrdering Facility: External Submitter Address: , , Performed By: #### 5 7021-8 ####[facility] LABCLIA [id number] [place] [id number] [facility] Nucleated RBC/100 WBC (Bld) [Ratio] 0.0 /100 WBC Normal [facility] Comment on above: Order Comment: Speci men Type: BLOOD SPECIMENOrdering Facility: External Submitter Address: , , Performed By: #### 5 7021-8 ####[facility] LABCLIA [id number] [address], [facility]95 [facility] [place] Platelet mean volume (Bld) [Entitic vol] 9.3 fL Normal 9.0-12.7 [facility] Comment on above: Order Comment: Speci men Type: BLOOD SPECIMENOrdering Facility: External Submitter Address: , , Performed By: #### 5 7021-8 ####[facility] LABCLIA [id number] [address] [place] Platelets (Bld) [#/Vol] 243 10*3/uL Normal 150-400 [facility] Comment on above: Order Comment: Speci men Type: BLOOD SPECIMENOrdering Facility: External Submitter Address: , , Performed By: #### 5 7021-8 ####[facility] LABCLIA [id number] [address] [place] RBC (Bld) [#/Vol] 4.61 10*6/uL Normal 4.20-6.00 [facility] Comment on above: Order Comment: Speci men Type: BLOOD SPECIMENOrdering Facility: External Submitter Address: , , Performed By: #### 5 7021-8 ####[facility] LABCLIA [id number] [address] [place] [address] [place] WBC (Bld) [#/Vol] 9.17 10*3/uL Normal 3.70-11.00 [facility] Comment on above: Order Comment: Speci men Type: BLOOD SPECIMENOrdering Facility: External Submitter Address: , , Performed By: #### 5 7021-8 ####[facility] LABCLIA [id number] [facility] [address] [place] [address] [place] Comprehensive metabolic 2000 panelon 08-18-2024 Albumin [Mass/Vol] 3.6 g/dL Low 3.9-4.9 [facility] Comment on above: Order Comment: Speci men Type: BLOOD SPECIMENOrdering Facility: External Submitter Address: , , Performed By: #### 2 4323-8 ####[facility] LABCLIA [id number] [facility] [facility] [address] [place] [address] [place] ALP [Catalytic activity/Vol] 47 U/L Normal 38-113 [facility] Comment on above: Order Comment: Speci men Type: BLOOD SPECIMENOrdering Facility: External Submitter Address: , , Performed By: #### 2 4323-8 ####[facility] LABCLIA [id number] [facility] [address] [place] [address] [facility] [place] ALT [Catalytic activity/Vol] 11 U/L Normal 10-54 [facility] Comment on above: Order Comment: Speci men Type: BLOOD SPECIMENOrdering Facility: External Submitter Address: , , Performed By: #### 2 4323-8 ####[facility] LABCLIA [id number] [facility] [address] [place] [address] [place] Anion gap [Moles/Vol] 11 mmol/L Normal 8-15 [facility] Comment on above: Order Comment: Speci men Type: BLOOD SPECIMENOrdering Facility: External Submitter Address: , , Performed By: #### 2 4323-8 ####[facility] LABCLIA [id number] [place] [facility] [address] [place] [address] [place] AST [Catalytic activity/Vol] 22 U/L Normal 14-40 [facility] Comment on above: Order Comment: Speci men Type: BLOOD SPECIMENOrdering Facility: External Submitter Address: , , Performed By: #### 2 4323-8 ####[facility] LABCLIA [id number] [address] [id number], [place] [address] [place] Bilirubin [Mass/Vol] 0.2 mg/dL Normal 0.2-1.3 [facility] Comment on above: Order Comment: Speci men Type: BLOOD SPECIMENOrdering Facility: External Submitter Address: , , Performed By: #### 2 4323-8 ####[facility] LABCLIA [id number] [address] [id number], [place] [address] [place] Calcium [Mass/Vol] 9.2 mg/dL Normal 8.5-10.2 [facility] Comment on above: Order Comment: Speci men Type: BLOOD SPECIMENOrdering Facility: External Submitter Address: , , Performed By: #### 2 4323-8 ####[facility] LABCLIA [id number] [facility] [place] [address] [place] [address] [place] Chloride [Moles/Vol] 95 mmol/L Low 98-107 [facility] Comment on above: Order Comment: Speci men Type: BLOOD SPECIMENOrdering Facility: External Submitter Address: , , Performed By: #### 2 4323-8 ####[facility] LABCLIA [id number] [facility] [address] [place] [address] [place] CO2 [Moles/Vol] 29 mmol/L Normal 22-30 [facility] Comment on above: Order Comment: Speci men Type: BLOOD SPECIMENOrdering Facility: External Submitter Address: , , Performed By: #### 2 4323-8 ####[facility] LABCLIA [id number] [address] [address] [place] [address] [place] Creatinine [Mass/Vol] 0.89 mg/dL Normal 0.73-1.22 [facility] Comment on above: Order Comment: Speci men Type: BLOOD SPECIMENOrdering Facility: External Submitter Address: , , Performed By: #### 2 4323-8 ####[facility] LABCLIA [id number] [address] [id number], [place] [address] [place] Creatinine and Glomerular filtration rate.predicted panel (S/P/Bld) 92 mL/min/1.73m??? Normal >=60 [facility] Comment on above: Order Comment: [place] [...] actual GFR. Performed By: #### 2 4323-8 ####[facility] [id number] [place] [address] [place] Glucose [Mass/Vol] 65 mg/dL Low 74-99 [facility] Comment on above: Order Comment: [place] egan Type: BLOOD SPECIMENOrdering Facility: External Submitter Address: , , Result Comment: The [place] [employer] Association (ADA) provides guidance for cutoff [...] Standards of Medical Care in Diabetes 2016, [place] [employer]. Diabetes Care. 2016.39(Suppl 1). Performed By: #### 2 4323-8 ####[facility] [id number] [address] [address] [place] Potassium [Moles/Vol] 4.0 mmol/L Normal 3.7-5.1 [facility] Comment on above: Order Comment: [place] egan Type: BLOOD SPECIMENOrdering Facility: External Submitter Address: , , Performed By: #### 2 4323-8 ####[facility] LABCLIA [id number] [facility] [address] [place] [address] [place] Protein [Mass/Vol] 6.9 g/dL Normal 6.3-8.0 [facility] Comment on above: Order Comment: Speci men Type: BLOOD SPECIMENOrdering Facility: External Submitter Address: , , Performed By: #### 2 4323-8 ####[facility] LABCLIA [id number] [facility] [address] [place] [address] [place] Sodium [Moles/Vol] 135 mmol/L Low 136-144 [facility] Comment on above: Order Comment: Speci men Type: BLOOD SPECIMENOrdering Facility: External Submitter Address: , , Performed By: #### 2 4323-8 ####[facility] LABCLIA [id number] [address] [place] [address] [place] Urea nitrogen [Mass/Vol] 4 mg/dL Low 9-24 [facility] Comment on above: Order Comment: Speci men Type: BLOOD SPECIMENOrdering Facility: External Submitter Address: , , Performed By: #### 2 4323-8 ####[facility] LABCLIA [id number] [facility] [address] [place] [address] [place] CNOVon 08-17-2024 CNOV Normal [facility] CBC W Auto Differential pane l (Bld)on 08-10-2024 Basophils (Bld) [#/Vol] 0.05 10*3/uL Normal <0.11 [facility] Comment on above: Order Comment: Speci men Type: BLOOD SPECIMENOrdering Facility: External Submitter Address: , , Performed By: #### 5 7021-8 ####[facility] LABCLIA [id number] [facility] [address] [place] [address] [place] Basophils/100 WBC (Bld) 0.5 % Normal [facility] Comment on above: Order Comment: Speci men Type: BLOOD SPECIMENOrdering Facility: External Submitter Address: , , Performed By: #### 5 7021-8 ####[facility] LABIA [id number] [address], [address] Differential cell count method Nom (Bld) Auto Normal [facility] Comment on above: Order Comment: Speci men Type: BLOOD SPECIMENOrdering Facility: External Submitter Address: , , Performed By: #### 5 7021-8 ####[facility] LABCLIA [id number] [address], [address] Eosinophils (Bld) [#/Vol] 0.37 10*3/uL Normal <0.46 [facility] Comment on above: Order Comment: Speci men Type: BLOOD SPECIMENOrdering Facility: External Submitter Address: , , Performed By: #### 5 7021-8 ####[facility] LABIA [id number] [address], [address] STATES OF [facility] Eosinophils/100 WBC (Bld) 3.7 % Normal [facility] Comment on above: Order Comment: Speci men Type: BLOOD SPECIMENOrdering Facility: External Submitter Address: , , Performed By: #### 5 7021-8 ####[facility] LABIA [id number] [address], [address] [place] Erythrocyte distribution width (RBC) [Ratio] 15.0 % Normal 11.5-15.0 [facility] Comment on above: Order Comment: Speci men Type: BLOOD SPECIMENOrdering Facility: External Submitter Address: , , Performed By: #### 5 7021-8 ####[facility] LABIA [id number] [address], [address] [place] Hematocrit (Bld) [Volume fraction] 40.2 % Normal 39.0-51.0 [facility] Comment on above: Order Comment: Speci men Type: BLOOD SPECIMENOrdering Facility: External Submitter Address: , , Performed By: #### 5 7021-8 ####[facility] LABIA [id number] [address] [place] Hemoglobin (Bld) [Mass/Vol] 12.3 g/dL Low 13.0-17.0 [facility] Comment on above: Order Comment: Speci men Type: BLOOD SPECIMENOrdering Facility: External Submitter Address: , , Performed By: #### 5 7021-8 ####[facility] LABCLIA [id number] [address], [address] [place] Immature granulocytes (Bld) [#/Vol] 0.08 10*3/uL Normal <0.10 [facility] Comment on above: Order Comment: Speci men Type: BLOOD SPECIMENOrdering Facility: External Submitter Address: , , Performed By: #### 5 7021-8 ####[facility] LABIA [id number] [address] OF [facility] Immature granulocytes/100 WBC (Bld) 0.8 % Normal [facility] Comment on above: Order Comment: Speci men Type: BLOOD SPECIMENOrdering Facility: External Submitter Address: , , Performed By: #### 5 7021-8 ####[facility] LABIA [id number] [address] [place] Lymphocytes (Bld) [#/Vol] 1.66 10*3/uL Normal 1.00-4.00 [facility] Comment on above: Order Comment: Speci men Type: BLOOD SPECIMENOrdering Facility: External Submitter Address: , , Performed By: #### 5 7021-8 ####[facility] LABIA [id number] [place] [address] [facility] [place] Lymphocytes/100 WBC (Bld) 16.8 % Normal [facility] Comment on above: Order Comment: Speci men Type: BLOOD SPECIMENOrdering Facility: External Submitter Address: , , Performed By: #### 5 7021-8 ####[facility] LABIA [id number] [address] [place] [address] [facility] MCH (RBC) [Entitic mass] 27.5 pg Normal 26.0-34.0 [facility] Comment on above: Order Comment: Speci men Type: BLOOD SPECIMENOrdering Facility: External Submitter Address: , , Performed By: #### 5 7021-8 ####[facility] LABCLIA [id number] [address] [place] [address] [place] [facility] MCHC (RBC) [Mass/Vol] 30.6 g/dL Normal 30.5-36.0 [facility] Comment on above: Order Comment: Speci men Type: BLOOD SPECIMENOrdering Facility: External Submitter Address: , , Performed By: #### 5 7021-8 ####[facility] LABIA [id number] [address] [place] [address] [facility] MCV (RBC) [Entitic vol] 89.7 fL Normal 80.0-100.0 [facility] Comment on above: Order Comment: Speci men Type: BLOOD SPECIMENOrdering Facility: External Submitter Address: , , Performed By: #### 5 7021-8 ####[facility] LABIA [id number] [address] [place] [address] [place] Monocytes (Bld) [#/Vol] 1.21 10*3/uL High <0.87 [facility] Comment on above: Order Comment: Speci men Type: BLOOD SPECIMENOrdering Facility: External Submitter Address: , , Performed By: #### 5 7021-8 ####[facility] LABIA [id number] [address] [place] [address] [facility] Monocytes/100 WBC (Bld) 12.2 % Normal [facility] Comment on above: Order Comment: Speci men Type: BLOOD SPECIMENOrdering Facility: External Submitter Address: , , Performed By: #### 5 7021-8 ####[facility] LABCLIA [id number] [facility] [address] [place] [address] [place] Neutrophils (Bld) [#/Vol] 6.53 10*3/uL Normal 1.45-7.50 [facility] Comment on above: Order Comment: Speci men Type: BLOOD SPECIMENOrdering Facility: External Submitter Address: , , Performed By: #### 5 7021-8 ####[facility] LABCLIA [id number] [facility] [address] [place] [address] [place] Neutrophils/100 WBC (Bld) 66.0 % Normal [facility] Comment on above: Order Comment: Speci men Type: BLOOD SPECIMENOrdering Facility: External Submitter Address: , , Performed By: #### 5 7021-8 ####[facility] [facility] LABCLIA [id number] [address] [place] [address] [place] Nucleated RBC (Bld) [#/Vol] 10*3/uL Normal <0.01 [facility] Comment on above: Order Comment: Speci men Type: BLOOD SPECIMENOrdering Facility: External Submitter Address: , , Performed By: #### 5 7021-8 ####[facility] LABCLIA [id number] [address] [place] [address] [place] Nucleated RBC/100 WBC (Bld) [Ratio] 0.0 /100 WBC Normal [facility] Comment on above: Order Comment: Speci men Type: BLOOD SPECIMENOrdering Facility: External Submitter Address: , , Performed By: #### 5 7021-8 ####[facility] LABCLIA [id number] [address] [place] [address] [facility] [place] Platelet mean volume (Bld) [Entitic vol] 9.4 fL Normal 9.0-12.7 [facility] Comment on above: Order Comment: Speci men Type: BLOOD SPECIMENOrdering Facility: External Submitter Address: , , Performed By: #### 5 7021-8 ####[facility] LABCLIA [id number] [facility] [id number], [place] [address] [facility] Platelets (Bld) [#/Vol] 226 10*3/uL Normal 150-400 [facility] Comment on above: Order Comment: Speci men Type: BLOOD SPECIMENOrdering Facility: External Submitter Address: , , Performed By: #### 5 7021-8 ####[facility] LABCLIA [id number] [facility] [id number], [place] [address] [place] [facility] RBC (Bld) [#/Vol] 4.48 10*6/uL Normal 4.20-6.00 [facility] Comment on above: Order Comment: Speci men Type: BLOOD SPECIMENOrdering Facility: External Submitter Address: , , Performed By: #### 5 7021-8 ####[facility] LABCLIA [id number] [address] [place] [address] [facility] WBC (Bld) [#/Vol] 9.90 10*3/uL Normal 3.70-11.00 [facility] Comment on above: Order Comment: Speci men Type: BLOOD SPECIMENOrdering Facility: External Submitter Address: , , Performed By: #### 5 7021-8 ####[facility] LABCLIA [id number] [facility] [address] [place] [address] [facility] Comprehensive metabolic 2000 panelon 08-10-2024 Albumin [Mass/Vol] 3.5 g/dL Low 3.9-4.9 [facility] Comment on above: Order Comment: Speci men Type: BLOOD SPECIMENOrdering Facility: External Submitter Address: , , Performed By: #### 2 4323-8 ####[facility] LABCLIA [id number] [facility] [address] [place] [address] [facility] [place] ALP [Catalytic activity/Vol] 52 U/L Normal 38-113 [facility] Comment on above: Order Comment: Speci men Type: BLOOD SPECIMENOrdering Facility: External Submitter Address: , , Performed By: #### 2 4323-8 ####[facility] LABCLIA [id number] [facility] [address] [place] [address] [place] ALT [Catalytic activity/Vol] 12 U/L Normal 10-54 [facility] Comment on above: Order Comment: Speci men Type: BLOOD SPECIMENOrdering Facility: External Submitter Address: , , Performed By: #### 2 4323-8 ####[facility] LABCLIA [id number] [facility] [address] [place] [address] [place] Anion gap [Moles/Vol] 14 mmol/L Normal 8-15 [facility] Comment on above: Order Comment: Speci men Type: BLOOD SPECIMENOrdering Facility: External Submitter Address: , , Performed By: #### 2 4323-8 ####[facility] LABCLIA [id number] [facility] [address] [place] [address] [place] AST [Catalytic activity/Vol] 25 U/L Normal 14-40 [facility] Comment on above: Order Comment: Speci men Type: BLOOD SPECIMENOrdering Facility: External Submitter Address: , , Performed By: #### 2 4323-8 ####[facility] LABCLIA [id number] [facility] [address] [place] [address] [place] Bilirubin [Mass/Vol] 0.4 mg/dL Normal 0.2-1.3 [facility] Comment on above: Order Comment: Speci men Type: BLOOD SPECIMENOrdering Facility: External Submitter Address: , , Performed By: #### 2 4323-8 ####[facility] LABCLIA [id number] [facility] [address] [place] [address] [place] Calcium [Mass/Vol] 8.7 mg/dL Normal 8.5-10.2 [facility] Comment on above: Order Comment: Speci men Type: BLOOD SPECIMENOrdering Facility: External Submitter Address: , , Performed By: #### 2 4320-8 ####[facility] LABCLIA [id number] [facility] [address] [address] [place] [facility] Chloride [Moles/Vol] 91 mmol/L Low 98-107 [facility] Comment on above: Order Comment: Speci men Type: BLOOD SPECIMENOrdering Facility: External Submitter Address: , , Performed By: #### 2 4323-8 ####[facility] LABCLIA [id number] [address] [address] [facility] CO2 [Moles/Vol] 24 mmol/L Normal 22-30 [facility] Comment on above: Order Comment: Speci men Type: BLOOD SPECIMENOrdering Facility: External Submitter Address: , , Performed By: #### 2 4323-8 ####[facility] LABCLIA [id number] [place] [address] [facility] Creatinine [Mass/Vol] 0.93 mg/dL Normal 0.73-1.22 [facility] Comment on above: Order Comment: Speci men Type: BLOOD SPECIMENOrdering Facility: External Submitter Address: , , Performed By: #### 2 4323-8 ####[facility] LABCLIA [id number] [id number] [place] [address] Creatinine and Glomerular filtration rate.predicted panel (S/P/Bld) 88 mL/min/1.73m??? Normal >=60 [facility] Comment on above: Order Comment: Speci [...] actual GFR. Performed By: #### 2 4323-8 ####[facility] LABCLIA [id number] [address] [address] [place] Glucose [Mass/Vol] 98 mg/dL Normal 74-99 [facility] Comment on above: Order Comment: Elgin egan Type: BLOOD SPECIMENOrdering Facility: External Submitter Address: , , Result Comment: The [place] Diabetes Association (ADA) provides guidance for cutoff [...] Standards of Medical Care in Diabetes 2016, [place] [employer]. Diabetes Care. 2016.39(Suppl 1). Performed By: #### 2 4323-8 ####[facility] LABCLIA [id number] [address] [address] [place] Potassium [Moles/Vol] 3.7 mmol/L Normal 3.7-5.1 [facility] Comment on above: Order Comment: Elgin egan Type: BLOOD SPECIMENOrdering Facility: External Submitter Address: , , Performed By: #### 2 4323-8 ####[facility] LABCLIA [id number] [address] [address] [place] Protein [Mass/Vol] 6.8 g/dL Normal 6.3-8.0 [facility] Comment on above: Order Comment: Elgin egan Type: BLOOD SPECIMENOrdering Facility: External Submitter Address: , , Performed By: #### 2 4323-8 ####[facility] LABCLIA [id number] [address] [address] [place] Sodium [Moles/Vol] 129 mmol/L Low 136-144 [facility] Comment on above: Order Comment: Elgin jignesh Type: BLOOD SPECIMENOrdering Facility: External Submitter Address: , , Performed By: #### 2 4323-8 ####[facility] [id number] [address] STATES OF [facility] Urea nitrogen [Mass/Vol] 6 mg/dL Low 9-24 [facility] Comment on above: Order Comment: Elgin egan Type: BLOOD SPECIMENOrdering Facility: External Submitter Address: , , Performed By: #### 2 4323-8 ####[facility] LABIA [id number] [address] Yamileth 08-05-2024 EVANSN Telephone (AGFAMPLE) ----- MARS PETERSON ([id number]) 1955 M DEF Date Time Provider Department 08/05/24 ALMA GILL During your visit today, we recorded the following information about you: Priya Pedersen MA 08/05/2024 1:38 PM Signed [facility] form placed it on the signing tray VANNA Rojas Julie, MA 08/06/2024 3:09 PM Signed Faxed Priya Pedersen MA Allergies As of Date: 08/05/2024 Noted Allergy Reaction ANIMAL DANDER 08/21/2022 14 - Other: See Comments Comments: Anything with fur SEASONAL ALLERGIES 08/21/2022 14 - Other: See Comments Comments: Stuffy nose, headaches Date Reviewed: 07/14/2024 Reviewed by: Alma Gill APRN.SPECIALTY THERAPIST - Fully Assessed Reason for Visit: Electronic [...] heart failure (HCC*11/23/2021 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*11/23/2021 CVA (cerebral vascular accident) ([facility]) [I63.9] 11/23/2021 11/20/2022 Neuropathy [G62.9] 11/23/2021 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 Normal [facility] CBC W Auto Differential pane l (Bld)on 08-03-2024 Basophils (Bld) [#/Vol] 0.04 10*3/uL Normal <0.11 [facility] Comment on above: Order Comment: Speci men Type: BLOOD SPECIMENOrdering Facility: External Submitter Address: , , Performed By: #### 5 7021-8 ####[facility] LABIA [id number] [address] STATES OF [facility] Basophils/100 WBC (Bld) 0.3 % Normal [facility] Comment on above: Order Comment: Speci men Type: BLOOD SPECIMENOrdering Facility: External Submitter Address: , , Performed By: #### 5 7021-8 ####[facility] LABIA [id number] [place] [address] [place] [facility] Differential cell count method Nom (Bld) Auto Normal [facility] Comment on above: Order Comment: Speci men Type: BLOOD SPECIMENOrdering Facility: External Submitter Address: , , Performed By: #### 5 7021-8 ####[facility] LABCLIA [id number] [address] [address] [place] Eosinophils (Bld) [#/Vol] 0.34 10*3/uL Normal <0.46 [facility] Comment on above: Order Comment: Speci men Type: BLOOD SPECIMENOrdering Facility: External Submitter Address: , , Performed By: #### 5 7021-8 ####[facility] LABCLIA [id number] [address] [place] [address] [place] [facility] Eosinophils/100 WBC (Bld) 2.9 % Normal [facility] Comment on above: Order Comment: Speci men Type: BLOOD SPECIMENOrdering Facility: External Submitter Address: , , Performed By: #### 5 7021-8 ####[facility] LABCLIA [id number] [address] [place] [address] [place] Erythrocyte distribution width (RBC) [Ratio] 15.3 % High 11.5-15.0 [facility] Comment on above: Order Comment: Speci men Type: BLOOD SPECIMENOrdering Facility: External Submitter Address: , , Performed By: #### 5 7021-8 ####[facility] LABIA [id number] [address] [place] [address] [place] Hematocrit (Bld) [Volume fraction] 41.4 % Normal 39.0-51.0 [facility] Comment on above: Order Comment: Speci men Type: BLOOD SPECIMENOrdering Facility: External Submitter Address: , , Performed By: #### 5 7021-8 ####[facility] LABIA [id number] [address] [place] [address] [place] Hemoglobin (Bld) [Mass/Vol] 12.6 g/dL Low 13.0-17.0 [facility] Comment on above: Order Comment: Speci men Type: BLOOD SPECIMENOrdering Facility: External Submitter Address: , , Performed By: #### 5 7021-8 ####[facility] LABCLIA [id number] [address] [place] [address] [place] Immature granulocytes (Bld) [#/Vol] 0.11 10*3/uL High <0.10 [facility] Comment on above: Order Comment: Speci men Type: BLOOD SPECIMENOrdering Facility: External Submitter Address: , , Performed By: #### 5 7021-8 ####[facility] LABIA [id number] [address], [address] Immature granulocytes/100 WBC (Bld) 0.9 % Normal [facility] Comment on above: Order Comment: Speci men Type: BLOOD SPECIMENOrdering Facility: External Submitter Address: , , Performed By: #### 5 7021-8 ####[facility] LABIA [id number] [address], [address] [place] [facility] Lymphocytes (Bld) [#/Vol] 1.15 10*3/uL Normal 1.00-4.00 [facility] Comment on above: Order Comment: Speci men Type: BLOOD SPECIMENOrdering Facility: External Submitter Address: , , Performed By: #### 5 7021-8 ####[facility] LABIA [id number] [address] Lymphocytes/100 WBC (Bld) 9.7 % Normal [facility] Comment on above: Order Comment: Speci men Type: BLOOD SPECIMENOrdering Facility: External Submitter Address: , , Performed By: #### 5 7021-8 ####[facility] LABIA [id number] [place] [address] [facility] MCH (RBC) [Entitic mass] 27.4 pg Normal 26.0-34.0 [facility] Comment on above: Order Comment: Speci men Type: BLOOD SPECIMENOrdering Facility: External Submitter Address: , , Performed By: #### 5 7021-8 ####[facility] LABIA [id number] [address] [address] [facility] MCHC (RBC) [Mass/Vol] 30.4 g/dL Low 30.5-36.0 [facility] Comment on above: Order Comment: Speci men Type: BLOOD SPECIMENOrdering Facility: External Submitter Address: , , Performed By: #### 5 7021-8 ####[facility] LABCLIA [id number] [address] [place] [address] [place] MCV (RBC) [Entitic vol] 90.0 fL Normal 80.0-100.0 [facility] Comment on above: Order Comment: Speci men Type: BLOOD SPECIMENOrdering Facility: External Submitter Address: , , Performed By: #### 5 7021-8 ####[facility] LABCLIA [id number] [address] [place] [address] [place] Monocytes (Bld) [#/Vol] 1.32 10*3/uL High <0.87 [facility] Comment on above: Order Comment: Speci men Type: BLOOD SPECIMENOrdering Facility: External Submitter Address: , , Performed By: #### 5 7021-8 ####[facility] LABCLIA [id number] [address] [place] [address] [place] Monocytes/100 WBC (Bld) 11.2 % Normal [facility] Comment on above: Order Comment: Speci men Type: BLOOD SPECIMENOrdering Facility: External Submitter Address: , , Performed By: #### 5 7021-8 ####[facility] LABCLIA [id number] [address] [place] [address] [place] Neutrophils (Bld) [#/Vol] 8.86 10*3/uL High 1.45-7.50 [facility] Comment on above: Order Comment: Speci men Type: BLOOD SPECIMENOrdering Facility: External Submitter Address: , , Performed By: #### 5 7021-8 ####[facility] LABCLIA [id number] [address] [place] [address] [place] Neutrophils/100 WBC (Bld) 75.0 % Normal [facility] Comment on above: Order Comment: Speci men Type: BLOOD SPECIMENOrdering Facility: External Submitter Address: , , Performed By: #### 5 7021-8 ####[facility] LABCLIA [id number] [facility] [address] [place] [address] [facility] Nucleated RBC (Bld) [#/Vol] 10*3/uL Normal <0.01 [facility] Comment on above: Order Comment: Speci men Type: BLOOD SPECIMENOrdering Facility: External Submitter Address: , , Performed By: #### 5 7021-8 ####[facility] LABCLIA [id number] [address] [place] [address] [place] [facility] Nucleated RBC/100 WBC (Bld) [Ratio] 0.0 /100 WBC Normal [facility] Comment on above: Order Comment: Speci men Type: BLOOD SPECIMENOrdering Facility: External Submitter Address: , , Performed By: #### 5 7021-8 ####[facility] LABCLIA [id number] [address] [place] [address] [facility] Platelet mean volume (Bld) [Entitic vol] 9.4 fL Normal 9.0-12.7 [facility] Comment on above: Order Comment: Speci men Type: BLOOD SPECIMENOrdering Facility: External Submitter Address: , , Performed By: #### 5 7021-8 ####[facility] LABCLIA [id number] [address] [place] [address] [place] Platelets (Bld) [#/Vol] 243 10*3/uL Normal 150-400 [facility] Comment on above: Order Comment: Speci men Type: BLOOD SPECIMENOrdering Facility: External Submitter Address: , , Performed By: #### 5 7021-8 ####[facility] LABCLIA [id number] [facility] [address] [place] [address] [facility] [place] RBC (Bld) [#/Vol] 4.60 10*6/uL Normal 4.20-6.00 [facility] Comment on above: Order Comment: Speci men Type: BLOOD SPECIMENOrdering Facility: External Submitter Address: , , Performed By: #### 5 7021-8 ####[facility] LABCLIA [id number] [address] [place] [address] [place] WBC (Bld) [#/Vol] 11.82 10*3/uL High 3.70-11.00 [facility] Comment on above: Order Comment: Speci men Type: BLOOD SPECIMENOrdering Facility: External Submitter Address: , , Performed By: #### 5 7021-8 ####[facility] LABCLIA [id number] [address] [place] [address] [facility] Comprehensive metabolic 2000 panelon 08-03-2024 Albumin [Mass/Vol] 3.7 g/dL Low 3.9-4.9 [facility] Comment on above: Order Comment: Speci men Type: BLOOD SPECIMENOrdering Facility: External Submitter Address: , , Performed By: #### 2 4323-8 ####[facility] LABCLIA [id number] [address] [place] [address] [place] ALP [Catalytic activity/Vol] 50 U/L Normal 38-113 [facility] Comment on above: Order Comment: Speci men Type: BLOOD SPECIMENOrdering Facility: External Submitter Address: , , Performed By: #### 2 4323-8 ####[facility] LABCLIA [id number] [address] [place] [address] [place] ALT [Catalytic activity/Vol] 12 U/L Normal 10-54 [facility] Comment on above: Order Comment: Speci men Type: BLOOD SPECIMENOrdering Facility: External Submitter Address: , , Performed By: #### 2 4323-8 ####[facility] LABCLIA [id number] [address] [place] [address] [place] Anion gap [Moles/Vol] 11 mmol/L Normal 8-15 [facility] Comment on above: Order Comment: Speci men Type: BLOOD SPECIMENOrdering Facility: External Submitter Address: , , Performed By: #### 2 4323-8 ####[facility] LABCLIA [id number] [address] [place] [address] [place] AST [Catalytic activity/Vol] 24 U/L Normal 14-40 [facility] Comment on above: Order Comment: Speci men Type: BLOOD SPECIMENOrdering Facility: External Submitter Address: , , Performed By: #### 2 4323-8 ####[facility] LABCLIA [id number] [address] [place] [address] [place] Bilirubin [Mass/Vol] 0.4 mg/dL Normal 0.2-1.3 [facility] Comment on above: Order Comment: Speci men Type: BLOOD SPECIMENOrdering Facility: External Submitter Address: , , Performed By: #### 2 4323-8 ####[facility] LABCLIA [id number] [address] [place] Calcium [Mass/Vol] 9.2 mg/dL Normal 8.5-10.2 [facility] Comment on above: Order Comment: Speci men Type: BLOOD SPECIMENOrdering Facility: External Submitter Address: , , Performed By: #### 2 4323-8 ####[facility] LABCLIA [id number] [address] [address] [place] Chloride [Moles/Vol] 90 mmol/L Low 98-107 [facility] Comment on above: Order Comment: Speci men Type: BLOOD SPECIMENOrdering Facility: External Submitter Address: , , Performed By: #### 2 2613-8 ####[facility] LABCLIA [id number] [address] [place] [address] [place] CO2 [Moles/Vol] 29 mmol/L Normal 22-30 [facility] Comment on above: Order Comment: Speci men Type: BLOOD SPECIMENOrdering Facility: External Submitter Address: , , Performed By: #### 2 4620-8 ####[facility] LABCLIA [id number] [address] [address] [place] [facility] Creatinine [Mass/Vol] 0.98 mg/dL Normal 0.73-1.22 [facility] Comment on above: Order Comment: Specjimmy egan Type: BLOOD SPECIMENOrdering Facility: External Submitter Address: , , Performed By: #### 2 4323-8 ####[facility] LABIA [id number] [address] [address] [facility] Creatinine and Glomerular filtration rate.predicted panel (S/P/Bld) 82 mL/min/1.73m??? Normal >=60 [facility] Comment on above: Order Comment: El[place] [...] actual GFR. Performed By: #### 2 4323-8 ####[facility] LABIA [id number] [address] [address] [place] Glucose [Mass/Vol] 67 mg/dL Low 74-99 [facility] Comment on above: Order Comment: El[place] egan Type: BLOOD SPECIMENOrdering Facility: External Submitter Address: , , Result Comment: The [place] [employer] (ADA) provides guidance for cutoff [...] Standards of Medical Care in Diabetes 2016, [place] [employer]. Diabetes Care. 2016.39(Suppl 1). Performed By: #### 2 4323-8 ####[facility] LABCLIA [id number] [facility] [address] [place] [address] [place] Potassium [Moles/Vol] 3.7 mmol/L Normal 3.7-5.1 [facility] Comment on above: Order Comment: Speci men Type: BLOOD SPECIMENOrdering Facility: External Submitter Address: , , Performed By: #### 2 4323-8 ####[facility] LABCLIA [id number] [address] [address] [place] Protein [Mass/Vol] 7.2 g/dL Normal 6.3-8.0 [facility] Comment on above: Order Comment: Isadorai jignesh Type: BLOOD SPECIMENOrdering Facility: External Submitter Address: , , Performed By: #### 2 4323-8 ####[facility] LABIA [id number] [address] [address] [place] Sodium [Moles/Vol] 130 mmol/L Low 136-144 [facility] Comment on above: Order Comment: Elgin egan Type: BLOOD SPECIMENOrdering Facility: External Submitter Address: , , Performed By: #### 2 4323-8 ####[facility] LABCLIA [id number] [address] [place] [address] [place] Urea nitrogen [Mass/Vol] 4 mg/dL Low 9-24 [facility] Comment on above: Order Comment: Elgin egan Type: BLOOD SPECIMENOrdering Facility: External Submitter Address: , , Performed By: #### 2 4323-8 ####[facility] [facility] LABCLIA [id number] [address] [place] [address] [place] CNPNon 07-31-2024 CNPN Normal [facility] CBC W Auto Differential pane l (Bld)on 07-27-2024 Basophils (Bld) [#/Vol] 0.04 10*3/uL Normal <0.11 [facility] Comment on above: Order Comment: Speci men Type: BLOOD SPECIMENOrdering Facility: External Submitter Address: , , Performed By: #### 5 7021-8 ####[facility] LABCLIA [id number] [facility] [address] [place] [address] [place] Basophils/100 WBC (Bld) 0.3 % Normal [facility] Comment on above: Order Comment: Speci men Type: BLOOD SPECIMENOrdering Facility: External Submitter Address: , , Performed By: #### 5 7021-8 ####[facility] LABCLIA [id number] [facility] [address] [place] [address] [place] [facility] Differential cell count method Nom (Bld) Auto Normal [facility] Comment on above: Order Comment: Speci men Type: BLOOD SPECIMENOrdering Facility: External Submitter Address: , , Performed By: #### 5 7021-8 ####[facility] LABCLIA [id number] [facility] [address] [place] [address] [place] Eosinophils (Bld) [#/Vol] 0.23 10*3/uL Normal <0.46 [facility] Comment on above: Order Comment: Speci men Type: BLOOD SPECIMENOrdering Facility: External Submitter Address: , , Performed By: #### 5 7021-8 ####[facility] LABCLIA [id number] [facility] [address] [place] [address] [place] Eosinophils/100 WBC (Bld) 1.8 % Normal [facility] Comment on above: Order Comment: Speci men Type: BLOOD SPECIMENOrdering Facility: External Submitter Address: , , Performed By: #### 5 7021-8 ####[facility] LABCLIA [id number] [facility] [address] [place] [address] [place] [facility] Erythrocyte distribution width (RBC) [Ratio] 15.6 % High 11.5-15.0 [facility] Comment on above: Order Comment: Speci men Type: BLOOD SPECIMENOrdering Facility: External Submitter Address: , , Performed By: #### 5 7021-8 ####[facility] LABCLIA [id number] [address], [place] [address] [place] [address] [place] Hematocrit (Bld) [Volume fraction] 40.7 % Normal 39.0-51.0 [facility] Comment on above: Order Comment: Speci men Type: BLOOD SPECIMENOrdering Facility: External Submitter Address: , , Performed By: #### 5 7021-8 ####[facility] LABIA [id number] [address], [address] [place] Hemoglobin (Bld) [Mass/Vol] 12.4 g/dL Low 13.0-17.0 [facility] Comment on above: Order Comment: Speci men Type: BLOOD SPECIMENOrdering Facility: External Submitter Address: , , Performed By: #### 5 7021-8 ####[facility] LABCLIA [id number] [address] [place] Immature granulocytes (Bld) [#/Vol] 0.15 10*3/uL High <0.10 [facility] Comment on above: Order Comment: Speci men Type: BLOOD SPECIMENOrdering Facility: External Submitter Address: , , Performed By: #### 5 7021-8 ####[facility] LABCLIA [id number] [place] [address] [place] Immature granulocytes/100 WBC (Bld) 1.2 % Normal [facility] Comment on above: Order Comment: Speci men Type: BLOOD SPECIMENOrdering Facility: External Submitter Address: , , Performed By: #### 5 7021-8 ####[facility] LABCLIA [id number] [address], [facility] [place] Lymphocytes (Bld) [#/Vol] 1.08 10*3/uL Normal 1.00-4.00 [facility] Comment on above: Order Comment: Speci men Type: BLOOD SPECIMENOrdering Facility: External Submitter Address: , , Performed By: #### 5 7021-8 ####[facility] LABCLIA [id number] [address] [place] [address] [place] Lymphocytes/100 WBC (Bld) 8.7 % Normal [facility] Comment on above: Order Comment: Speci men Type: BLOOD SPECIMENOrdering Facility: External Submitter Address: , , Performed By: #### 5 7021-8 ####[facility] LABCLIA [id number] [address] [place] [address] [place] MCH (RBC) [Entitic mass] 27.3 pg Normal 26.0-34.0 [facility] Comment on above: Order Comment: Speci men Type: BLOOD SPECIMENOrdering Facility: External Submitter Address: , , Performed By: #### 5 7021-8 ####[facility] LABCLIA [id number] [address] [place] [address] [place] MCHC (RBC) [Mass/Vol] 30.5 g/dL Normal 30.5-36.0 [facility] Comment on above: Order Comment: Speci men Type: BLOOD SPECIMENOrdering Facility: External Submitter Address: , , Performed By: #### 5 7021-8 ####[facility] LABCLIA [id number] [address] [place] [address] [place] MCV (RBC) [Entitic vol] 89.6 fL Normal 80.0-100.0 [facility] Comment on above: Order Comment: Speci men Type: BLOOD SPECIMENOrdering Facility: External Submitter Address: , , Performed By: #### 5 7021-8 ####[facility] LABCLIA [id number] [address] [place] [address] [place] Monocytes (Bld) [#/Vol] 1.44 10*3/uL High <0.87 [facility] Comment on above: Order Comment: Speci men Type: BLOOD SPECIMENOrdering Facility: External Submitter Address: , , Performed By: #### 5 7021-8 ####[facility] LABCLIA [id number] [id number] [address] [place] Monocytes/100 WBC (Bld) 11.6 % Normal [facility] Comment on above: Order Comment: Speci men Type: BLOOD SPECIMENOrdering Facility: External Submitter Address: , , Performed By: #### 5 7021-8 ####[facility] LABCLIA [id number] [facility] [address] [place] [address] [place] Neutrophils (Bld) [#/Vol] 9.50 10*3/uL High 1.45-7.50 [facility] Comment on above: Order Comment: Speci men Type: BLOOD SPECIMENOrdering Facility: External Submitter Address: , , Performed By: #### 5 7021-8 ####[facility] LABCLIA [id number] [facility] [address] [place] [address] [place] Neutrophils/100 WBC (Bld) 76.4 % Normal [facility] Comment on above: Order Comment: Speci men Type: BLOOD SPECIMENOrdering Facility: External Submitter Address: , , Performed By: #### 5 7021-8 ####[facility] LABCLIA [id number] [facility] [address] [place] [address] [place] Nucleated RBC (Bld) [#/Vol] 10*3/uL Normal <0.01 [facility] Comment on above: Order Comment: Speci men Type: BLOOD SPECIMENOrdering Facility: External Submitter Address: , , Performed By: #### 5 7021-8 ####[facility] LABCLIA [id number] [facility] [address] [place] [address] [place] Nucleated RBC/100 WBC (Bld) [Ratio] 0.0 /100 WBC Normal [facility] Comment on above: Order Comment: Speci men Type: BLOOD SPECIMENOrdering Facility: External Submitter Address: , , Performed By: #### 5 7021-8 ####[facility] LABCLIA [id number] [address] [place] [address] [place] Platelet mean volume (Bld) [Entitic vol] 9.4 fL Normal 9.0-12.7 [facility] Comment on above: Order Comment: Speci men Type: BLOOD SPECIMENOrdering Facility: External Submitter Address: , , Performed By: #### 5 7021-8 ####[facility] LABCLIA [id number] [address] [place] [address] [place] Platelets (Bld) [#/Vol] 254 10*3/uL Normal 150-400 [facility] Comment on above: Order Comment: Speci men Type: BLOOD SPECIMENOrdering Facility: External Submitter Address: , , Performed By: #### 5 7021-8 ####[facility] LABCLIA [id number] [address] [place] [address] [place] RBC (Bld) [#/Vol] 4.54 10*6/uL Normal 4.20-6.00 [facility] Comment on above: Order Comment: Speci men Type: BLOOD SPECIMENOrdering Facility: External Submitter Address: , , Performed By: #### 5 7021-8 ####[facility] LABCLIA [id number] [address] [place] [address] [place] WBC (Bld) [#/Vol] 12.44 10*3/uL High 3.70-11.00 [facility] Comment on above: Order Comment: Speci men Type: BLOOD SPECIMENOrdering Facility: External Submitter Address: , , Performed By: #### 5 7021-8 ####[facility] LABCLIA [id number] [address] [place] [address] [facility] [place] Comprehensive metabolic 2000 panelon 07-27-2024 Albumin [Mass/Vol] 3.5 g/dL Low 3.9-4.9 [facility] Comment on above: Order Comment: Speci men Type: BLOOD SPECIMENOrdering Facility: External Submitter Address: , , Performed By: #### 2 4323-8 ####[facility] LABCLIA [id number] [facility] [address] [place] [address] [place] ALP [Catalytic activity/Vol] 48 U/L Normal 38-113 [facility] Comment on above: Order Comment: Speci men Type: BLOOD SPECIMENOrdering Facility: External Submitter Address: , , Performed By: #### 2 4323-8 ####[facility] LABCLIA [id number] [facility] [address] [address] [place] ALT [Catalytic activity/Vol] 15 U/L Normal 10-54 [facility] Comment on above: Order Comment: Speci men Type: BLOOD SPECIMENOrdering Facility: External Submitter Address: , , Performed By: #### 2 4323-8 ####[facility] LABCLIA [id number] [facility] [address] [place] [address] [place] Anion gap [Moles/Vol] 11 mmol/L Normal 8-15 [facility] Comment on above: Order Comment: Speci men Type: BLOOD SPECIMENOrdering Facility: External Submitter Address: , , Performed By: #### 2 4323-8 ####[facility] LABCLIA [id number] [facility] [address] [place] [address] [place] AST [Catalytic activity/Vol] 24 U/L Normal 14-40 [facility] Comment on above: Order Comment: Speci men Type: BLOOD SPECIMENOrdering Facility: External Submitter Address: , , Performed By: #### 2 4323-8 ####[facility] LABCLIA [id number] [facility] [address] [place] [address] [place] Bilirubin [Mass/Vol] 0.5 mg/dL Normal 0.2-1.3 [facility] Comment on above: Order Comment: Speci men Type: BLOOD SPECIMENOrdering Facility: External Submitter Address: , , Performed By: #### 2 4323-8 ####[facility] LABCLIA [id number] [facility] [place] [address] [place] Calcium [Mass/Vol] 9.0 mg/dL Normal 8.5-10.2 [facility] Comment on above: Order Comment: Speci men Type: BLOOD SPECIMENOrdering Facility: External Submitter Address: , , Performed By: #### 2 4323-8 ####[facility] LABCLIA [id number] [place] [facility] [address] [place] [address] [place] Chloride [Moles/Vol] 90 mmol/L Low 98-107 [facility] Comment on above: Order Comment: Speci men Type: BLOOD SPECIMENOrdering Facility: External Submitter Address: , , Performed By: #### 2 4323-8 ####[facility] LABCLIA [id number] [facility] [address] [place] [address] [place] CO2 [Moles/Vol] 27 mmol/L Normal 22-30 [facility] Comment on above: Order Comment: Speci men Type: BLOOD SPECIMENOrdering Facility: External Submitter Address: , , Performed By: #### 2 4323-8 ####[facility] LABCLIA [id number] [facility] [address] [place] [address] [place] Creatinine [Mass/Vol] 1.00 mg/dL Normal 0.73-1.22 [facility] Comment on above: Order Comment: Speci men Type: BLOOD SPECIMENOrdering Facility: External Submitter Address: , , Performed By: #### 2 4323-8 ####[facility] LABCLIA [id number] [place] [address] [place] [address] [place] Creatinine and Glomerular filtration rate.predicted panel (S/P/Bld) 80 mL/min/1.73m??? Normal >=60 [facility] Comment on above: Order Comment: [place] [...] actual GFR. Performed By: #### 2 4323-8 ####[facility] LABCLIA [id number] [place] [address] [place] Glucose [Mass/Vol] 66 mg/dL Low 74-99 [facility] Comment on above: Order Comment: [place] egan Type: BLOOD SPECIMENOrdering Facility: External Submitter Address: , , Result Comment: The [place] Diabetes [employer] (ADA) provides guidance for cutoff [...] Standards of Medical Care in Diabetes 2016, [place] [employer]. Diabetes Care. 2016.39(Suppl 1). Performed By: #### 2 4323-8 ####[facility] LABCLIA [id number] [place] [address] [place] Potassium [Moles/Vol] 4.2 mmol/L Normal 3.7-5.1 [facility] Comment on above: Order Comment: [place] egan Type: BLOOD SPECIMENOrdering Facility: External Submitter Address: , , Performed By: #### 2 4323-8 ####[facility] LABCLIA [id number] [address] [place] [address] [facility] Protein [Mass/Vol] 7.0 g/dL Normal 6.3-8.0 [facility] Comment on above: Order Comment: Speci men Type: BLOOD SPECIMENOrdering Facility: External Submitter Address: , , Performed By: #### 2 4323-8 ####[facility] LABIA [id number] [place] [address] [facility] Sodium [Moles/Vol] 128 mmol/L Low 136-144 [facility] Comment on above: Order Comment: Speci men Type: BLOOD SPECIMENOrdering Facility: External Submitter Address: , , Performed By: #### 2 4323-8 ####[facility] [id number] [place] [address] [facility] [place] Urea nitrogen [Mass/Vol] 9 mg/dL Normal 9-24 [facility] Comment on above: Order Comment: Speci men Type: BLOOD SPECIMENOrdering Facility: External Submitter Address: , , Performed By: #### 2 4323-8 ####[facility]BR[facility] [id number] [address], [facility] CNPDanitza [facility] ----- MARS PETERSON ([id number]) 1955 M DEF Date Time Provider Department 07/22/24 ALMA GILL During your visit today, we recorded the following information about you: Priya Pedersen MA 07/22/2024 4:11 PM Signed Portable oxygen has been faxed to [facility] VANNA Rojas Julie, MA 07/24/2024 10:15 AM Signed Form received from [facility] on signing tray VANNA Rojas Brittny A, [...] Date Reviewed: 07/14/2024 Reviewed by: Alma Gill APRN.EVANS - Fully Assessed Reason for Visit: Oxygen [...] heart failure (HCC*11/23/2021 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*11/23/2021 CVA (cerebral vascular accident) [...] Impaired fasti (more content not included)... Normal [facility] Comprehensive Metabolic Prof imelda 07-21-2024 Albumin [Mass/Vol] 3.7 g/dL Normal 3.4-4.8 [facility] Comment on above: Performed By: #### L 100.0100, L500.4050 #### [facility] [address] [facility] [address] Albumin/Globulin [Mass ratio] 1.1 {ratio} Normal 0.9-2.4 [facility] Comment on above: Performed By: #### L 100.0100, L500.4050 #### [facility] [address] [facility] [address] ALK PHOS 52 U/L Normal 40-129 [facility] Comment on above: Performed By: #### L 100.0100, L500.4050 #### [facility] [address] [place], [address] ALT [Catalytic activity/Vol] 10 U/L Normal <=46 [facility] Comment on above: Performed By: #### L 100.0100, L500.4050 #### [facility] [address] [place], [address] AST [Catalytic activity/Vol] 23 U/L Normal <=37 [facility] Comment on above: Performed By: #### L 100.0100, L500.4050 #### [facility] [address] [place], [address] Bilirubin [Mass/Vol] 0.40 mg/dL Normal 0.00-1.30 [facility] Comment on above: Performed By: #### L 100.0100, L500.4050 #### [facility] [address] [place], [address] BUN/CRE 8.8 RATIO Low 10-20 [facility] Comment on above: Performed By: #### L 100.0100, L500.4050 #### [facility] [address] [place], [address] Calcium [Mass/Vol] 9.0 mg/dL Normal 7.6-11.0 [facility] Comment on above: Performed By: #### L 100.0100, L500.4050 #### [facility] [address] [place], [address] Chloride [Moles/Vol] 94 mmol/L Low 98-108 [facility] Comment on above: Performed By: #### L 100.0100, L500.4050 #### [facility] [address] [place], [address] CO2 [Moles/Vol] 22.1 mmol/L Normal 21.0-32.0 [facility] Comment on above: Performed By: #### L 100.0100, L500.4050 #### [facility] [address] [place], [address] Creatinine [Mass/Vol] 0.96 mg/dL Normal 0.70-1.20 [facility] Comment on above: Performed By: #### L 100.0100, L500.4050 #### [facility] [address] [place], [address] GAP 16 High 5-15 [facility] Comment on above: Performed By: #### L 100.0100, L500.4050 #### [facility] [address] [place], [address] GFR/1.73 sq M.predicted among non-blacks MDRD (S/P/Bld) [Vol rate/Area] 84 mL/min/{1.73_m2} Normal >60 [facility] Comment on above: Result Comment: mL/m in/1.73m2 CKD-EPI Creatinine Equation (2020) Performed By: #### L 100.0100, L500.4050 #### [facility] [address] [place], [address] Globulin (S) [Mass/Vol] 3.4 g/dL Normal 2.2-4.2 [facility] Comment on above: Performed By: #### L 100.0100, L500.4050 #### [facility] [address] [place], [address] Glucose [Mass/Vol] 79 mg/dL Normal 70-99 [facility] Comment on above: Performed By: #### L 100.0100, L500.4050 #### [facility] [address] [place], [address] Potassium [Moles/Vol] 3.8 mmol/L Normal 3.3-5.1 [facility] Comment on above: Performed By: #### L 100.0100, L500.4050 #### [facility] [address] [place], [address] Sodium [Moles/Vol] 132 mmol/L Low 133-145 [facility] Comment on above: Performed By: #### L 100.0100, L500.4050 #### [facility] [address] [place], [address] T PROT 7.1 g/dL Normal 5.9-8.4 [facility] Comment on above: Performed By: #### L 100.0100, L500.4050 #### [facility] [address] [place], [address] Urea nitrogen [Mass/Vol] 8 mg/dL Normal 4-19 [facility] Comment on above: Performed By: #### L 100.0100, L500.4050 #### [facility] [address] [place], [address] Absolute neutrophil countOrd ered By: Alma Gill on 07-20-2024 Neutrophils (Bld) [#/Vol] 10.2 10*3/uL High 2.0-7.7 [facility] Anion gap in Serum or Plasma Ordered By: Alma Gill on 07-20-2024 Anion gap [Moles/Vol] 16 mmol/L High 5-15 [facility] BUN/creatinine ratioOrdered By: Alma Gill on 07-20-2024 Urea nitrogen/Creatinine [Mass ratio] 8.8 mg/mg Low 10-20 [facility] Basophil percentageOrdered B y: Alma Gill on 07-20-2024 Basophils/100 WBC (Bld) 0.5 % 0-1 [facility] Bilirubin, totalOrdered By: Alma Gill on 07-20-2024 Bilirubin [Mass/Vol] 0.40 mg/dL 0.00-1.30 [facility] CBC W/Diff, Automatedon 07-11 Absolute Lymph 1.08 X10 3/uL Normal 0.83-4.51 [facility] Comment on above: Performed By: #### L 100.0100, L500.4050 #### [facility] [address] [place], [address] Absolute Neut 10.2 X10 3/uL High 2.0-7.7 [facility] Comment on above: Performed By: #### L 100.0100, L500.4050 #### [facility] [address] [place], [address] Basophils/100 WBC (Bld) 0.5 % Normal 0-1 [facility] Comment on above: Performed By: #### L 100.0100, L500.4050 #### [facility] [address] [place], [address] Eosinophils/100 WBC (Bld) 1.4 % Normal 0-5 [facility] Comment on above: Performed By: #### L 100.0100, L500.4050 #### [facility] [address] [place], [address] Erythrocyte distribution width (RBC) [Ratio] 15.6 % High 11.6-14.6 [facility] Comment on above: Performed By: #### L 100.0100, L500.4050 #### [facility] [address] [place], [address] Hematocrit (Bld) [Volume fraction] 40.6 % Normal 40-54 [facility] Comment on above: Performed By: #### L 100.0100, L500.4050 #### [facility] [address] [place], [address] Hemoglobin (Bld) [Mass/Vol] 12.8 g/dL Low 13.0-16.5 [facility] Comment on above: Performed By: #### L 100.0100, L500.4050 #### [facility] [address] [place], [address] IG% 1.400 High 0.0-0.9 [facility] Comment on above: Result Comment: IG% - Immature Granulocytes (promyelocytes, myelocytes and metamyelocytes) > 1% indicates that a LEFT SHIFT is Present. Performed By: #### L 100.0100, L500.4050 #### [facility] [address] [place], [address] Lymphocytes/100 WBC (Bld) 8.3 % Low 19-41 [facility] Comment on above: Performed By: #### L 100.0100, L500.4050 #### [facility] [address] [place], [address] MCH (RBC) [Entitic mass] 27.9 pg Normal 27.0-32.0 [facility] Comment on above: Performed By: #### L 100.0100, L500.4050 #### [facility] [address] [place], [address] MCHC (RBC) [Mass/Vol] 31.5 g/dL Low 32-36 [facility] Comment on above: Performed By: #### L 100.0100, L500.4050 #### [facility] [address] [place], [address] MCV (RBC) [Entitic vol] 88.5 fL Normal 80-94 [facility] Comment on above: Performed By: #### L 100.0100, L500.4050 #### [facility] [address] [place], [address] Monocytes/100 WBC (Bld) 9.6 % Normal 0-10 [facility] Comment on above: Performed By: #### L 100.0100, L500.4050 #### [facility] [address] [place], [address] Neutrophils/100 WBC (Bld) 78.8 % High 47-70 [facility] Comment on above: Performed By: #### L 100.0100, L500.4050 #### [facility] [address] [place], [address] Nucleated RBC (Bld) [#/Vol] 0 10*3/uL Normal 0-5 [facility] Comment on above: Performed By: #### L 100.0100, L500.4050 #### [facility] [address] [place], [address] Platelet mean volume (Bld) [Entitic vol] 9.2 fL Normal 6.2-12.0 [facility] Comment on above: Performed By: #### L 100.0100, L500.4050 #### [facility] [address] [place], [address] Platelets (Bld) [#/Vol] 244 10*3/uL Normal 150-450 [facility] Comment on above: Performed By: #### L 100.0100, L500.4050 #### [facility] [address] [place], [address] RBC (Bld) [#/Vol] 4.59 10*6/uL Low 4.6-6.2 [facility] Comment on above: Performed By: #### L 100.0100, L500.4050 #### [facility] [address] [place], [address] RDW SD 50.4 fl High 35.1-43.9 [facility] Comment on above: Performed By: #### L 100.0100, L500.4050 #### [facility] [address] [place], [address] WBC (Bld) [#/Vol] 13.0 10*3/uL High 4.4-11.0 [facility] Comment on above: Performed By: #### L 100.0100, L500.4050 #### [facility] [place], [address] Yamileth 07-20-2024 DIMITRI Telephone (ALMA DELIACONNIESANDRA) ----- MARS PETERSON ([id number]) 1955 M DEF Date Time Provider Department 07/20/24 ALMA GILL During your visit today, we recorded the following information about you: Priya Pedersen MA 07/20/2024 11:44 AM Signed Form received from [facility] placed on signing tray VANNA Rojsa Brittny A, APRN.[facility] 07/27/2024 10:40 AM Signed Form signed. Please return fax. Priya Pedersen MA 07/27/2024 11:29 AM Signed Faxed Priya Pedersen MA Allergies As of Date: 07/20/2024 Noted Allergy Reaction ANIMAL DANDER 08/21/2022 14 - Other: See Comments Comments: Anything with fur SEASONAL ALLERGIES 08/21/2022 14 - Other: See Comments Comments: Stuffy nose, headaches Date Reviewed: 07/14/2024 Reviewed by: Alma Gill APRN.SPECIALTY THERAPIST - Fully Assessed Reason for Visit: Electronic Communication [080] Forms [913] Prescriptions as of 07/27/2024 - isosorbide mononitrate [...] heart failure (HCC*11/23/2021 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*11/23/2021 CVA (cerebral vascular accident) ([facility]) [I63.9] 11/23/2021 11/20/2022 Neuropathy [G62.9] 11/23/2021 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] 11/23/2021 09/18/2023 Umbilical hernia [K42.9] 11/23/2021 Pressure injury of right buttock, stage 2 ([facility])*02/01/2022 09/18/2023 Pressure injury of left buttock, stage 2 ([facility]) *02/01/2022 09/18/2023 Chest pain [R07.9] 02/01/2022 Essential tremor [G25.0] 02/01/2022 Anxiety and depression [F41.9, F32.A] 02/01/2022 SOB (shortness of breath) [R06.02] 02/15/2022 Impaired fasting glucose [R73.01] 06/04/2022 Mixed hyperlipidemia [E78.2] 06/04/2022 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 Normal [facility] Carbon dioxide, total [Moles /volume] in Central venous bloodOrdered By: Alma Gill on 07-20-2024 CO2 [Moles/Vol] 22.1 mmol/L 21.0-32.0 [facility] Chloride assayOrdered By: Anna Gill on 07-20-2024 Chloride [Moles/Vol] 94 mmol/L Low 98-108 [facility] Eosinophil percentageOrdered By: Alma Gill on 07-20-2024 Eosinophils/100 WBC (Bld) 1.4 % 0-5 [facility] Erythrocyte distribution wid th ratioOrdered By: Alma Gill on 07-20-2024 Erythrocyte distribution width (RBC) [Ratio] 15.6 % High 11.6-14.6 [facility] Erythrocyte distribution wid th standard deviationOrdered By: Alma Gill on 07-20-2024 Erythrocyte distribution width (RBC) [Entitic vol] 50.4 fL High 35.1-43.9 [facility] GFR/1.73 sq M.predicted gemma g non-blacks MDRD (S/P/Bld) [Vol rate/Area]Ordered By: Alma Gill on 07-20-2024 Estimated GFR (MDRD) Non-Af Amer 84 >60 [facility] Comment on above: mL/min/1.73m2 CKD-EP I Creatinine Equation (2020) Hematocrit Auto (Bld) [Volum e fraction]Ordered By: Alma Gill on 07-20-2024 Hematocrit (Bld) [Volume fraction] 40.6 % 40-54 [facility] Hemoglobin measurementOrdere d By: Alma Gill on 07-20-2024 Hemoglobin (Bld) [Mass/Vol] 12.8 g/dL Low 13.0-16.5 [facility] Immature granulocytes/100 WB C Auto (Bld)Ordered By: Alma Gill on 07-20-2024 Immature granulocytes/100 WBC (Bld) 1.400 % High 0.0-0.9 [facility] Comment on above: IG% - Immature Granu locytes (promyelocytes, myelocytes and metamyelocytes) > 1% indicates that a LEFT SHIFT is Present. Laboratory - Chemistry and C hemistry - challengeOrdered By: Alma Gill on 07-20-2024 AST [Catalytic activity/Vol] 23 U/L <38 [facility] Lymphocytes Auto (Unsp spec) [#/Vol]Ordered By: Alma Gill on 07-20-2024 Lymphocytes (Bld) [#/Vol] 1.08 10*3/uL 0.83-4.51 [facility] Lymphocytes/100 WBC Auto (Un sp spec)Ordered By: Alma Gill on 07-20-2024 Lymphocytes/100 WBC (Bld) 8.3 % Low 19-41 [facility] MCV (mean corpuscular volume ) determinationOrdered By: Alma Gill on 07-20-2024 MCV (RBC) [Entitic vol] 88.5 fL 80-94 [facility] Mean corpuscular hemoglobin (MCH) determinationOrdered By: Alma Gill on 07-20-2024 MCH (RBC) [Entitic mass] 27.9 pg 27.0-32.0 [facility] Mean corpuscular hemoglobin concentration (MCHC) determinationOrdered By: Alma Gill on 07-20-2024 MCHC (RBC) [Mass/Vol] 31.5 g/dL Low 32-36 [facility] Mean platelet volume determi nationOrdered By: Alma Gill on 07-20-2024 Platelet mean volume (Bld) [Entitic vol] 9.2 fL 6.2-12.0 [facility] Monocyte percentageOrdered B y: Alma Gill on 07-20-2024 Monocytes/100 WBC (Bld) 9.6 % 0-10 [facility] Neutrophil percentageOrdered By: Alma Gill on 07-20-2024 Neutrophils/100 WBC (Bld) 78.8 % High 47-70 [facility] Nucleated red blood cell per centageOrdered By: Alma Gill on 07-20-2024 Nucleated RBC/100 WBC (Bld) [Ratio] 0 % 0-5 [facility] Platelet countOrdered By: Anna Gill on 07-20-2024 Platelets (Bld) [#/Vol] 244 10*3/uL 150-450 [facility] Potassium (Unsp spec) [Mass/ Vol]Ordered By: Alma Gill on 07-20-2024 Potassium [Moles/Vol] 3.8 mmol/L 3.3-5.1 [facility] RBC Auto (Bld) [#/Vol]Ordere d By: Alma Gill on 07-20-2024 RBC (Bld) [#/Vol] 4.59 10*6/uL Low 4.6-6.2 [facility] Serum creatinine measurement (mass/volume)Ordered By: Alma Gill on 07-20-2024 Creatinine [Mass/Vol] 0.96 mg/dL 0.70-1.20 [facility] Serum globulin measurementOr dered By: Alma Gill on 07-20-2024 Globulin (S) [Mass/Vol] 3.4 g/dL 2.2-4.2 [facility] Serum glucose measurement (m ass/volume)Ordered By: Alma Gill on 07-20-2024 Glucose [Mass/Vol] 79 mg/dL 70-99 [facility] Serum or plasma alanine delgado otransferase (ALT) measurementOrdered By: Alma Gill on 07-20-2024 ALT [Catalytic activity/Vol] 10 U/L <47 [facility] Serum or plasma albumin lui urement (mass/volume)Ordered By: Alma Gill on 07-20-2024 Albumin [Mass/Vol] 3.7 g/dL 3.4-4.8 [facility] Serum or plasma albumin/glob ulin mass ratioOrdered By: Alma Gill on 07-20-2024 Albumin/Globulin [Mass ratio] 1.1 {ratio} 0.9-2.4 [facility] Serum or plasma alkaline anitra sphatase measurementOrdered By: Alma Gill on 07-20-2024 ALP [Catalytic activity/Vol] 52 U/L 40-129 [facility] Serum or plasma calcium lui urement (mass/volume)Ordered By: Alma Gill on 07-20-2024 Calcium [Mass/Vol] 9.0 mg/dL 7.6-11.0 [facility] Serum or plasma urea nitroge n measurement (mass/volume)Ordered By: Alma Jasonviolet on 07-20-2024 Urea nitrogen [Mass/Vol] 8 mg/dL 4-19 [facility] Sodium levelOrdered By: Rossy Gill on 07-20-2024 Sodium [Moles/Vol] 132 mmol/L Low 133-145 [facility] Total proteinOrdered By: Emeli Gill on 07-20-2024 Protein [Mass/Vol] 7.1 g/dL 5.9-8.4 [facility] White blood cell (WBC) count Ordered By: Alma Wicho on 07-20-2024 WBC (Bld) [#/Vol] 13.0 10*3/uL High 4.4-11.[address] [facility] CT CHEST WO IVCONon 07-17-19 CT CHEST WO IVCON * * *Final Report* * * DATE OF EXAM: Jul 16 2024 2:21PM [facility] 0541 - CT CHEST WO IVCON / [...] central pulmonary arteries suggestive of pulmonary hypertension. 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: [facility] Transcribe Date/Time: Jul 19 2024 5:33P Dictated by : SERJIO PIERRE MD This examination was interpreted and the report reviewed and electronically signed by: SERJIO PIERRE MD on Jul 19 2024 5:38PM EST [id number] Normal [facility] COVID & INFLUENZA A/B & RSV PCR, ROUTINEon 07-15-2024 FLUAV RNA EVELIO+probe Ql (Unsp spec) Not detected Not Detected [facility] FLUBV RNA EVELIO+probe Ql (Unsp spec) Not detected Not Detected [facility] Interpretation and review of laboratory results Normal [facility] RSV A RNA EVELIO+probe Ql (Unsp spec) Not detected Not Detected [facility] SARS-CoV-2 (COVID-19) RNA EVELIO+probe Ql (Unsp spec) Not detected See comment [facility] Reference Range (the expected result in uninfected individuals): Not detected [facility] CNOVon 07-14-2024 CNOV Office Visit (IVETH ROJAS) ----- MARS PETERSON ([id number]) 1955 M DEF Date Time Provider Department 07/14/24 4:40 PM ALMA GILL During your visit today, we recorded the following information about you: Temperature Pulse Respiration Blood pressure 97.5 degrees 62/minute 18/minute 124/76 Alma Gill, WINDOWS SECURITY ENGINEER.SPECIALTY THERAPIST 07/20/2024 6:08 PM Signed CHIEF COMPLAINT: Mars [...] Date CHF (congestive heart failure) ([facility]) Chronic low back pain COPD (chronic obstructive pulmonary disease) ([facility]) Coronary artery disease 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 Normal [facility] 07-06-2024 [facility] Tele[facility] (AGFAMPLE) ----- PETERSONMARS ([id number]) 1955 M DEF Date Time Provider Department 07/06/24 ALMA GILL During your visit today, we recorded the following information about you: Priya Pedersen MA 07/06/2024 10:51 AM Signed Form to NE patient's home health palced on signing VANNA Moe Brittny A, APRN.[facility] 07/06/2024 1:04 PM Signed Form signed. Please [...] heart failure (HCC*11/23/2021 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*11/23/2021 CVA (cerebral vascular accident) [...] [R06.02] 02/15/2022 (more content not included)... Normal [facility] CNPN Normal [facility] 07-03-2024 [facility] Telephone (AGFAMPLE) ----- MARS PETERSON ([id number]) 1955 M DEF Date Time Provider Department 07/03/24 ALMA GILL During your visit today, we recorded the following information about you: Priya Pedersen MA 07/03/2024 8:46 AM Signed Form placed on signing tray from [facility] VANNA Rojas Julie, MA 07/03/2024 3:07 PM [...] heart failure (HCC*11/23/2021 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*11/23/2021 CVA (cerebral vascular accident) [...] 06/04/2022 Mix (more content not included)... Normal [facility] CNOVon 06-24-2024 CNOV Normal [facility] CNPNon 06-15-2024 [facility] Telephone (PLYM) ----- NICHOLASMARS ([id number]) 1955 M [facility] Date Time Provider Department 06/15/24 [facility] During your visit today, we recorded [...] - Fully Assessed Reason for Visit: Orders [241] Cmt: Do you want this nocturnal pulse [...] spray into each nostril every day - iaqywczbaou-vamoyzzuv-plu anter (TRELEGY ELLIPTA) 200-62.5-25 mcg inhalation powder [...] heart failure (HCC*11/23/2021 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*11/23/2021 CVA (cerebral vascular accident) ([facility]) [I63.9] 11/23/2021 11/20/2022 Neuropathy [G62.9] 11/23/2021 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 [facility] Yamileth 06-09-2024 DIMITRI Telephone (MUKESH) ----- MARS PETERSON ([id number]) 1955 M DEF Date Time Provider Department 06/09/24 ALMA GILL During your visit today, we recorded the following information about you: Priya Pedersen MA 06/09/2024 10:30 AM Signed Form received from [facility] placed on signing tray VANNA Rojas Brittny A, TAY.[facility] 06/09/2024 12:24 PM Signed Form signed. Please [...] spray into each nostril every day - pccntmumoij-ftrsztayq-jev anter (TRELEGY ELLIPTA) 200-62.5-25 mcg inhalation powder [...] heart failure (HCC*11/23/2021 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*11/23/2021 CVA (cerebral vascular accident) [...] 02/15/2022 Impai (more content not included)... Normal [facility] Yamileth 05-28-2024 EVANSN Telephone (MUKESH) ----- MARS PETERSON ([id number]) 1955 M DEF Date Time Provider Department 05/28/24 ALMA GILL During your visit today, we recorded the following information about you: Priya Pedersen MA 05/28/2024 9:12 AM Signed Form needs signed for [facility] order: [id number] placed on signing tray VANNA Rojas Julie, [...] spray into each nostril every day - vzibbbyzqga-bfcrlgqbu-gbz anter (TRELEGY ELLIPTA) 200-62.5-25 mcg inhalation powder [...] heart failure (HCC*11/23/2021 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*11/23/2021 CVA (cerebral vascular accident) ([facility]) [I63.9] 11/23/2021 11/20/2022 Neuropathy [G62.9] 11/23/2021 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] 11/23/2021 09/18/2023 Umbilical hernia [K42.9] 11/23/2021 Pressure injury of right buttock, stage 2 ([facility])*02/01/2022 09/18/2023 Pressure injury of left buttock, stage 2 ([facility]) *02/01/2022 09/18/2023 Chest pain [R07.9] 02/01/2022 Essential tremor [G25.0] 02/01/2022 Anxiety and depression [F41.9, F32.A] 02/01/2022 SOB (shortness of breath) [R06.02] 02/15/2022 Impaired fasting glucose [R73.01] 06/04/2022 Mixed hyperlipidemia [E78.2] 06/04/2022 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 Normal [facility] Yamileth 05-26-2024 EVANSN Telephone (MUKESH) ----- MARS PETERSON ([id number]) 1955 M DEF Date Time Provider Department 05/26/24 ALMA GILL During your visit today, we recorded the following information about you: Priya Pedersen MA 05/26/2024 3:01 PM Signed Notes received from [facility] signed in the back, placed on signing [...] spray into each nostril every day - sngcucztbuy-urkxjnejr-xht anter (TRELEGY ELLIPTA) 200-62.5-25 mcg inhalation powder [...] heart failure (HCC*11/23/2021 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*11/23/2021 CVA (cerebral vascular accident) ([facility]) [I63.9] 11/23/2021 11/20/2022 Neuropathy [G62.9] 11/23/2021 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] 11/23/2021 09/18/2023 Umbilical hernia [K42.9] 11/23/2021 Pressure injury of right buttock, stage 2 ([facility])*02/01/2022 09/18/2023 Pressure injury of left buttock, stage 2 ([facility]) *02/01/2022 09/18/2023 Chest pain [R07.9] 02/01/2022 Essential tremor [G25.0] 02/01/2022 Anxiety and depression [F41.9, F32.A] 02/01/2022 SOB (shortness of breath) [R06.02] 02/15/2022 Impaired fasting glucose [R73.01] 06/04/2022 Mixed hyperlipidemia [E78.2] 06/04/2022 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 Normal [facility] Yamileth 05-22-2024 DIMITRI Telephone (ALMA DELIAFAMPLE) ----- MARS PETERSON ([id number]) 1955 M DEF Date Time Provider Department 05/22/24 ALMA GILL During your visit today, we recorded the following information about you: Priya Pedersen MA 05/22/2024 8:30 AM Signed Form received from [facility] placed on signing tray VANNA Rojas Julie, [...] spray into each nostril every day - ybrlfokufyz-knhbenkqt-phr anter (TRELEGY ELLIPTA) 200-62.5-25 mcg inhalation powder [...] heart failure (HCC*11/23/2021 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*11/23/2021 CVA (cerebral vascular accident) ([facility]) [I63.9] 11/23/2021 11/20/2022 Neuropathy [G62.9] 11/23/2021 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] 11/23/2021 09/18/2023 Umbilical hernia [...] for c (more content not included)... Normal [facility] CNPNon 05-19-2024 CNPN Normal [facility] 04-27-2024 [facility] No Panel Informationon 04-27 [facility] [address] [facility], [place] [address] Test Date: 2024-04-27 Pat Name: MARS PETERSON Department: Room: Gender: Male Lab Asst: : 1955 Requested By: Order Number: [id number] Reading MD: Fracnisco Patel MD Interpretive Statements Current ATS/ERS acceptability [...] 16:08:13 EST by Francisco Patel MD ID: [id number] Name: MARS PETERSON Race: White Ht: 72.00 [...] 5.35 FEF50/FIF50 0.41 90-100 FIVC (L) 2.30 MTS21-96 (L/sec) 1.39 1.09 2.52 4.56 55 Time (sec) 8.22 FET PEF (sec) 0.09 AMY (L) 0.11 Vol Extrap % (%) 5 [...] with 2 acceptable maneuvers. PULMONARY FUNCTION LAB [facility] SPIROMETRY BASELINE ONLYon 1 06-28-2023 DLCO (ml/min/mmHg) 12.44 ml/min/mmHg [facility] DLCO LLN (ml/min/mmHg) 16.85 ml/min/mmHg [facility] DLCO PREDICTED (ml/min/mmHg) 26.78 ml/min/mmHg [facility] DLCO ULN (ml/min/mmHg) 36.72 ml/min/mmHg [facility] DLCO/VA (ml/min/mmHg/L) 3.86 ml/min/mmHg /L [facility] DLCO/VA PREDICTED (ml/min/mmHg/L) 3.79 ml/min/mmHg /L [facility] DLCOcor PREDICTED (ml/min/mmHg) 26.78 ml/min/mmHg [facility] ERV PREDICTED (L) 1.45 L/S [facility] FEF25% PRE (L/S) 6.65 L/S [facility] TMR52-19% LLN (L/S) 1.09 L/S [facility] AOO38-13% PRE (L/S) 1.39 L/S [facility] PQV22-93% PREDICTED (L/S) 2.52 L/S [facility] FEF75% LLN (L/S) 0.25 L/S [facility] FEF75% PRE (L/S0 0.44 L/S [facility] FEF75% PREDICTED (L/S) 0.69 L/S [facility] FEF75% ULN (L/S) 1.79 L/S [facility] FET PRE (S) 8.22 S [facility] FEV1 LLN (L) 2.38 L [facility] FEV1 PRE (L) 1.85 L [facility] FEV1 PREDICTED (L) 3.26 L [facility] FEV1 ULN (L) 4.09 L [facility] FEV1/FVC LLN (%) 63 % [facility] FEV1/FVC PRE (%) 75 % [facility] FEV1/FVC PREDICTED (%) 76 % Cl [facility] FVC LLN (L) 3.24 L [facility] FVC PRE (L) 2.45 L [facility] FVC PREDICTED (L) 4.35 L [facility] FVC ULN (L) 5.49 L [facility] IC PREDICTED (L) 2.90 L/S [facility] PEF LLN (L/S) 6.28 L/S [facility] PEF PRE (L/S) 7.82 L/S [facility] PEF ULN (L/S) 11.18 L/S [facility] SVC LLN (L) 3.24 L/S [facility] SVC PREDICTED (L) 4.35 L/S [facility] SVC ULN (L) 5.49 L/S [facility] VA (L) 3.22 L [facility] VA PREDICTED (L) 7.21 L [facility] CNOVon 04-22-2024 CNOV Normal [facility] CNPDanitza 04-16-2024 CNPN Telephone (AGFAMPLE) ----- MARS PETERSON ([id number]) 1955 M DEF Date Time Provider Department 04/16/24 ALMA GILL During your visit today, we recorded the following information about you: Priya Pedersen MA 04/16/2024 7:48 AM Signed Form to be signed received from [facility], placed on signing folder Priya Pedersen MA Allergies As of Date: 04/16/2024 Noted Allergy Reaction ANIMAL DANDER 08/21/2022 14 - Other: See Comments Comments: Anything with fur SEASONAL ALLERGIES 08/21/2022 14 - Other: See Comments Comments: Stuffy nose, headaches Date Reviewed: 03/30/2024 Reviewed by: Alma Gill APRN.SPECIALTY THERAPIST - Fully Assessed Reason for Visit: Electronic Communication [890] Cmt: ORDER: [id number] Forms [913] Prescriptions as of 04/16/2024 - [...] spray into each nostril every day - njuqhsrdtxn-elcthuwjk-byo anter (TRELEGY ELLIPTA) 200-62.5-25 mcg inhalation powder [...] chloride 0.65 % nasal spray Use 1 Elbert in the nose as needed. - Lactobacillus [...] heart failure (HCC*11/23/2021 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*11/23/2021 CVA (cerebral vascular accident) [...] Bilateral caroti (more content not included)... Normal [facility]-13-20[facility] (AGFAMPLE[facility] ----- MARS PETERSON ([id number]) 1955 M DEF Date Time Provider Department 04/13/24 ALMA GILL During your visit today, we recorded the following information about you: Suzanne Almaguer MA 04/13/2024 3:04 PM Signed [place] physical therapist is requesting to extend PT. For once a week for 4 weeks. Please advise. [place] [phone]. Thank you. VANNA Dawn Brittny A, WINDOWS SECURITY ENGINEER.[facility] 04/13/2024 3:49 PM Signed Ok to extend PT sessions. Suzanne Almaguer MA 04/13/2024 4:49 PM Signed Verbal orders given. Suzanne Almaguer MA Allergies As of Date: 04/13/2024 Noted Allergy Reaction ANIMAL DANDER 08/21/2022 14 - Other: See Comments Comments: Anything with fur SEASONAL ALLERGIES 08/21/2022 14 - Other: See Comments Comments: Stuffy nose, headaches Date Reviewed: 03/30/2024 Reviewed by: Alma Gill APRN.SPECIALTY THERAPIST - Fully Assessed Reason for Visit: Patient [...] spray into each nostril every day - qfjamxtcijk-xmrawflmo-ian anter (TRELEGY ELLIPTA) 200-62.5-25 mcg inhalation powder [...] chloride 0.65 % nasal spray Use 1 Elbert in the nose as needed. - Lactobacillus [...] heart failure (HCC*11/23/2021 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*11/23/2021 CVA (cerebral vascular accident) [...] SOB (shortnes (more content not included)... Normal [facility] Yamileth 04-02-2024 DIMITRI Normal [facility] Monae 03-30-2024 CNOV Office Visit (IVETH ROJAS) ----- MARS PETERSON ([id number]) 1955 M DEF Date Time Provider Department 03/30/24 11:20 AM ALMA GILL During your visit today, we recorded the following information about you: Temperature Pulse Respiration Blood pressure 97.9 degrees 59/minute 18/minute 118/54 Height 1.829 m Alma Gill APRN.[facility] 04/06/2024 10:16 AM Signed CHIEF COMPLAINT: Mars [...] neuropathy, and pulmonary nodule who presented to [facility] with complaints of shortness of breath [...] was h (more content not included)... Normal [facility] Hepatic function 2000 panelo n 03-30-2024 Albumin [Mass/Vol] 3.8 g/dL Low 3.9-4.9 [facility] [facility] Comment on above: Order Comment: Speci men Type: BLOOD SPECIMENOrdering Facility: [facility] Address: [address] [place] [address] Performed By: #### 2 4325-3 ####[facility] LABCLIA [id number] [facility] [place] [address] [place] ALP [Catalytic activity/Vol] 62 U/L Normal 38-113 [facility] Comment on above: Order Comment: Speci men Type: BLOOD SPECIMENOrdering Facility: [facility] Address: [address] [place] [address] Performed By: #### 2 4325-3 ####[facility] LABCLIA [id number] [facility] [place] [address] [place] ALT With P-5'-P [Catalytic activity/Vol] 8 U/L Low 10-54 [facility] Comment on above: Order Comment: Speci men Type: BLOOD SPECIMENOrdering Facility: [facility] Address: [address] [place] [address] Performed By: #### 2 4325-3 ####[facility] LABCLIA [id number] [facility] [place] [address] [place] AST With P-5'-P [Catalytic activity/Vol] 15 U/L Normal 14-40 [facility] Comment on above: Order Comment: Speci men Type: BLOOD SPECIMENOrdering Facility: [facility] Address: [address] [place] [address] Performed By: #### 2 4325-3 ####[facility] LABCLIA [id number] [facility] [place] [address] [place] Bilirubin [Mass/Vol] 0.4 mg/dL Normal 0.2-1.3 [facility] Comment on above: Order Comment: Speci men Type: BLOOD SPECIMENOrdering Facility: [facility] Address: [address] [place] [address] Performed By: #### 2 4325-3 ####[facility] LABCLIA [id number] [facility] [place] [address] [facility] Bilirubin.direct [Mass/Vol] mg/dL Normal <0.2 [facility] Comment on above: Order Comment: Elgin egan Type: BLOOD SPECIMENOrdering Facility: [facility] Address: [address] [place], [place] [id number] Performed By: #### 2 4325-3 ####[facility] LABCLIA [id number] [place] [address] [place] Protein [Mass/Vol] 7.2 g/dL Normal 6.3-8.0 [facility] Comment on above: Order Comment: Speci men Type: BLOOD SPECIMENOrdering Facility: [facility] Address: [address] [place], [place] [id number] Performed By: #### 2 4325-3 ####[facility] LABCLIA [id number] [place] [address] [place] CNOVon 03-27-2024 CNOV Normal [facility] CNPNon 03-20-2024 CNPN Telephone (AGFAMPLE) ----- MARS PETERSON ([id number]) 1955 M DEF Date Time Provider Department 03/20/24 ALMA GILL During your visit today, we recorded the following information about you: Priya Pedersen MA 03/20/2024 10:57 AM Signed Form received from [facility] placed on signing VANNA Moe Julie, MA 03/20/2024 3:29 PM Signed Form completed and faxed Priya Pedersen MA Allergies As of Date: 03/20/2024 Noted Allergy Reaction ANIMAL DANDER 08/21/2022 14 - Other: See Comments Comments: Anything with fur SEASONAL ALLERGIES 08/21/2022 14 - Other: See Comments Comments: Stuffy nose, headaches Date Reviewed: 03/13/2024 Reviewed by: Mitchell Caruso APRN.SPECIALTY THERAPIST - Fully Assessed Reason for Visit: Electronic Communication [890] Orders [681] Cmt: Order: [id number] Prescriptions as of 03/20/2024 - OXYGEN, HOME [...] BY MOUTH THREE TIMES A WEEK. - yvtaciryeyo-gijcoxojo-qkj anter (TRELEGY ELLIPTA) 200-62.5-25 mcg inhalation powder [...] chloride 0.65 % nasal spray Use 1 Elbert in the nose as needed. - Lactobacillus [...] heart failure (HCC*11/23/2021 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*11/23/2021 CVA (cerebral vascular accident) ([facility]) [I63.9] 11/23/2021 11/20/2022 Neuropathy [G62.9] 11/23/2021 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] 11/23/2021 09/18/2023 Umbilical hernia [...] study [R91.1] (more content not included)... Normal [facility] CNPNon 03-19-2024 CNPN Telephone (AGFAMPLE) ----- MARS PETERSON ([id number]) 1955 M DEF Date Time Provider Department 03/19/24 ALMA GILL During your visit today, we recorded the following information about you: Priya Pedersen MA 03/19/2024 9:22 AM Signed Form received from [facility] placed on signing tray they are wanting [...] Date Reviewed: 03/13/2024 Reviewed by: Mitchell Caruso APRN.SPECIALTY THERAPIST - Fully Assessed Reason for Visit: Electronic [...] BY MOUTH THREE TIMES A WEEK. - pmwcekcthqx-mjzivvbtj-hby anter (TRELEGY ELLIPTA) 200-62.5-25 mcg inhalation powder [...] chloride 0.65 % nasal spray Use 1 Elbert in the nose as needed. - Lactobacillus [...] heart failure (HCC*11/23/2021 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*11/23/2021 CVA (cerebral vascular accident) [...] nodule se (more content not included)... Normal [facility] CNPNon 03-17-2024 CNPN Telephone (AGFAMPLE) ----- MARS PETERSON ([id number]) 1955 M DEF Date Time Provider Department 03/17/24 ALMA GILL During your visit today, we recorded the following information about you: Precious Lacy MA 03/17/2024 3:19 PM Signed Royer PT with [facility] called stating he did patient's re-cert today and will be continuing to see patient once a week for 5 weeks. Precious Lacy MA Allergies As of Date: 03/17/2024 Noted Allergy Reaction ANIMAL DANDER 08/21/2022 14 - Other: See Comments Comments: Anything with fur SEASONAL ALLERGIES 08/21/2022 14 - Other: See Comments Comments: Stuffy nose, headaches Date Reviewed: 03/13/2024 Reviewed by: Mitchell Caruso APRN.SPECIALTY THERAPIST - Fully Assessed Reason for Visit: Patient [...] BY MOUTH THREE TIMES A WEEK. - iohrihmzfwd-prdkzeejc-yyx anter (TRELEGY ELLIPTA) 200-62.5-25 mcg inhalation powder [...] chloride 0.65 % nasal spray Use 1 Elbert in the nose as needed. - Lactobacillus [...] heart failure (HCC*11/23/2021 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*11/23/2021 CVA (cerebral vascular accident) [...] 09/18/2022 B (more content not included)... Normal [facility] ALDOLASE BLDon 03-13-2024 Aldolase [Catalytic activity/Vol] 3.5 mU/mL 1.5 - 8.1 U/L [facility] Comment on above: This test was devisabelo ped, and its performance characteristics determined by the [facility] Department of Pathology and Laboratory Medicine. It has not been cleared or approved by the FDA. The [facility] Department of Pathology and Laboratory Medicine is regulated under CLIA as qualified to perform high-complexity testing. This test is used for clinical purposes. It should not be regarded as investigational or for research. Aldolase [Catalytic activity /Vol]on 03-13-2024 Interpretation and review of laboratory results Normal [facility] C-REACTIVE PROTEINon CRP [Mass/Vol] 0.3 mg/dL NINF - 0.9 mg/dL [facility] CREATINE KINASE/CKon CK [Catalytic activity/Vol] 83 U/L 51 - 298 U/L [facility] LUNG VOLUMESon 03-13-2024 DLCO (ml/min/mmHg) 8.76 ml/min/mmHg [facility] DLCO LLN (ml/min/mmHg) 16.88 ml/min/mmHg [facility] DLCO PREDICTED (ml/min/mmHg) 26.81 ml/min/mmHg [facility] DLCO ULN (ml/min/mmHg) 36.75 ml/min/mmHg [facility] DLCO/VA (ml/min/mmHg/L) 3.21 ml/min/mmHg /L [facility] DLCO/VA PREDICTED (ml/min/mmHg/L) 3.80 ml/min/mmHg /L [facility] DLCOcor PREDICTED (ml/min/mmHg) 26.81 ml/min/mmHg [facility] ERV BOX (L) 0.63 L [facility] ERV PREDICTED (L) 1.45 L/S [facility] FRC Gas (L) 2.41 L [facility] IC BOX (L) 1.17 L [facility] IC PREDICTED (L) 2.91 L/S [facility] RV Box PREDICTED (L) 2.57 L [facility] RV Gas (L) 1.76 L [facility] RV Gas PREDICTED (L) 2.57 L [facility] RV/TLC Box PREDICTED (%) 36 % [facility] RV/TLC Gas (%) 49 % [facility] RV/TLC Gas PREDICTED (%) 36 L [facility] SVC LLN (L) 3.24 L/S [facility] SVC PREDICTED (L) 4.36 L/S [facility] SVC ULN (L) 5.49 L/S [facility] TLC Box PREDICTED (L) 7.43 L [facility] TLC Gas (L) 3.60 L [facility] TLC Gas PREDICTED (L) 7.43 L [facility] VA (L) 2.73 L [facility] VA PREDICTED (L) 7.21 L [facility] VC (L) BOX 1.97 L [facility] No Panel Informationon 03-13 Interpretation and review of laboratory results Normal [facility] [address] [place] [address] 20206 Test Date: 2024-03-13 Pat Name: MARS PETERSON Department: Room: Gender: Male Lab Asst: : 1955 Requested By: Order Number: [id number] Reading MD: Francisco Patel MD Interpretive Statements [...] 16:55:17 EDT by Francisco Patel MD ID: [id number] Name: MARS PETERSON Race: White Ht: 72.00 [...] be interpreted with caution. PULMONARY FUNCTION LAB [facility] OXIMETRY WITH AMBULATIONon 05-13-2023 Beba Rose RPF T 03/13/2024 1:49 PM Patient is unable to walk safely with walker to obtain ambulatory oximetry data. RANJITH Sky [facility] OXIMETRY WITH AMBULATIONOrde red By: Beba Rose on 03-13-2024 [facility] RHEUMATOID FACTORon 03-13-20 Rheumatoid factor Qn NINF [facility] Basic metabolic 2000 panelon 03-09-2024 Anion gap [Moles/Vol] 9 mmol/L Normal 8-15 [facility] Comment on above: Order Comment: Speci men Type: BLOOD SPECIMENOrdering Facility: [facility] Address: [address] [place] [address] Performed By: #### 3 3762-6, 82857-5 ####[facility] LABCLIA [id number] [place] [address] [place] Calcium [Mass/Vol] 9.3 mg/dL Normal 8.5-10.2 [facility] Comment on above: Order Comment: Speci men Type: BLOOD SPECIMENOrdering Facility: [facility] Address: [address] [place] [address] Performed By: #### 3 3762-6, 00620-9 ####[facility] LABCLIA [id number] [place] [address] [place] Chloride [Moles/Vol] 91 mmol/L Low 98-107 [facility] Comment on above: Order Comment: Speci men Type: BLOOD SPECIMENOrdering Facility: [facility] Address: [address] [id number] Performed By: #### 3 3762-6, 52804-7 ####[facility] LABCLIA [id number] [place] [address] [place] CO2 [Moles/Vol] 29 mmol/L Normal 22-30 [facility] Comment on above: Order Comment: Speci men Type: BLOOD SPECIMENOrdering Facility: [facility] Address: [address] [id number] Performed By: #### 3 3762-6, 42902-5 ####[facility] LABCLIA [id number] [place] [address] [place] Creatinine [Mass/Vol] 0.93 mg/dL Normal 0.73-1.22 [facility] Comment on above: Order Comment: Elgin egan Type: BLOOD SPECIMENOrdering Facility: [facility] Address: [address] [place] [address] Performed By: #### 3 3762-6, 48461-1 ####[facility] LABIA [id number] [place] [address] [facility] Creatinine and Glomerular filtration rate.predicted panel (S/P/Bld) 88 mL/min/1.73m??? Normal >=60 [facility] Comment on above: Order Comment: Elgin egan Type: BLOOD SPECIMENOrdering Facility: [facility] Address: [address] [place] [address] Result Comment: Tamika mated Glomerular Filtration Rate [...] actual GFR. Performed By: #### 3 3762-6, 96764-4 ####[facility] LABIA [id number] [place] [address] [place] [facility] Glucose [Mass/Vol] 108 mg/dL High 74-99 [facility] Comment on above: Order Comment: Elgin egan Type: BLOOD SPECIMENOrdering Facility: [facility] Address: [address] [place] [address] Result Comment: The [place] Diabetes Association (ADA) provides guidance for cutoff [...] Standards of Medical Care in Diabetes 2016, [place] [employer]. Diabetes Care. 2016.39(Suppl 1). Performed By: #### 3 3762-6, 97944-1 ####[facility] LABCLIA [id number] [place] [address] [place] [facility] Potassium [Moles/Vol] 4.6 mmol/L Normal 3.7-5.1 [facility] Comment on above: Order Comment: Elgin egan Type: BLOOD SPECIMENOrdering Facility: [facility] Address: [address] [place] [address] Performed By: #### 3 3762-6, 56459-6 ####[facility] LABCLIA [id number] [place] [address] [facility] Sodium [Moles/Vol] 129 mmol/L Low 136-144 [facility] Comment on above: Order Comment: Elgin egan Type: BLOOD SPECIMENOrdering Facility: [facility] Address: [address] [place] [address] Performed By: #### 3 3762-6, 24069-8 ####[facility] LABCLIA [id number] [place] [address] [facility] Urea nitrogen [Mass/Vol] 7 mg/dL Low 9-24 [facility] Comment on above: Order Comment: Elgin egan Type: BLOOD SPECIMENOrdering Facility: [facility] Address: [address] [place] [address] Performed By: #### 3 3762-6, 42280-9 ####[facility] LABCLIA [id number] [place] [address] [facility] Yamileth 03-09-2024 DIMITRI Telephone (MUKESH) ----- MARS PETERSON ([id number]) 1955 M DEF Date Time Provider Department 03/09/24 ALMA GILL During your visit today, we recorded the following information about you: Priya Pedersen MA 03/09/2024 4:18 PM Signed ----- Message from Alma Gill APRN.SPECIALTY THERAPIST sent at 03/09/2024 3:26 PM EDT ----- [...] Date Reviewed: 03/02/2024 Reviewed by: Alma Gill APRN.SPECIALTY THERAPIST - Fully Assessed Reason for Visit: Results [...] BY MOUTH THREE TIMES A WEEK. - ljybmenpzxt-orbhwqthq-lne anter (TRELEGY ELLIPTA) 200-62.5-25 mcg inhalation powder [...] chloride 0.65 % nasal spray Use 1 Elbert in the nose as needed. 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 Normal [facility] CT CHEST WO IVCONon 03-09-[address] CHEST WO IVCON * * *Final Report* * * DATE OF EXAM: Mar 09 2024 2:24PM [facility] 0541 - CT CHEST WO IVCON / [...] reactive. Heart, pericardium, and thoracic vessels: Severe kashia coronary artery desiccation. Status post CABG. Normal [...] are likely reactive. No new suspicious nodule. 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: WENCESLAO Transcribe Date/Time: Mar 13 2024 2:12P Dictated by : MATT REYES MD This examination was interpreted and the report reviewed and electronically signed by: MATT REYES MD on Mar 13 2024 2:28PM EST [id number] Normal [facility] NT-proBNP SerPlPushmataha [facility] Antlersn[facility] 03-09 Natriuretic peptide.B prohormone N-Terminal [Mass/Vol] 503 pg/mL High <125 [facility] Comment on above: Order Comment: Speci men Type: BLOOD SPECIMENOrdering Facility: [facility] Address: [address] [place] [address] Performed By: #### 3 3762-6, 89436-6 ####[facility] LABCLIA [id number] [place] [address] [place] BNP,B-Type NATRIURETIC PEPTI Layla 02-11-2024 Natriuretic peptide B (Bld) [Mass/Vol] 187.7 pg/mL High 0-100 [facility] Comment on above: Performed By: #### L 500.2500, L503.6620 #### [facility] [address] [place], [address] Basic Metabolic Profile (BMP )on 02-11-2024 BUN/CRE 5.3 RATIO Low 10-20 [facility] Comment on above: Performed By: #### L 500.2500, L503.6620 #### [facility] [address] [place], [address] CA,Total 8.9 mg/dL Normal 8.5-10.1 [facility] Comment on above: Performed By: #### L 500.2500, L503.6620 #### [facility] [address] [place], [address] Chloride [Moles/Vol] 96 mmol/L Low 98-107 [facility] Comment on above: Performed By: #### L 500.2500, L503.6620 #### [facility] [address] [place], [address] CO2 [Moles/Vol] 27.0 mmol/L Normal 21.0-32.0 [facility] Comment on above: Performed By: #### L 500.2500, L503.6620 #### [facility] [address] [place], [address] Creatinine [Mass/Vol] 0.95 mg/dL Normal 0.70-1.30 [facility] Comment on above: Result Comment: The validity of the calculated GFR GFRAA in patients over 70 years has not been determined. Clinical correlation is essential. Performed By: #### L 500.2500, L5.20 #### [facility] [address] [place], [address] EST GFR - AA 101 mL/min Normal >60 [facility] Comment on above: Result Comment: Afri can [place] GFR Calc Performed By: #### L 500.2500, #### [facility] [address] [place], [address] GAP 7 Normal 5-15 [facility] Comment on above: Performed By: #### L 500.2500, #### [facility] [address] [place], [address] GFR/1.73 sq M.predicted among non-blacks MDRD (S/P/Bld) [Vol rate/Area] 83 mL/min/{1.73_m2} Normal >60 [facility] Comment on above: Result Comment: Non- GFR Calc Performed By: #### L 500.2500, L5.20 #### [facility] [address] [place], [address] Glucose [Mass/Vol] 75 mg/dL Normal 74-106 [facility] Comment on above: Performed By: #### L 500.2500, L5.20 #### [facility] [address] [place], [address] Potassium [Moles/Vol] 4.3 mmol/L Normal 3.5-5.1 [facility] Comment on above: Performed By: #### L 500.2500, .6619 #### [facility] [address] [place], [address] Sodium [Moles/Vol] 130 mmol/L Low 136-145 [facility] Comment on above: Performed By: #### L 500.2500, L503.6620 #### [facility] [address] [place], [address] Urea nitrogen [Mass/Vol] 5 mg/dL Low 7-18 [facility] Comment on above: Performed By: #### L 500.2500, L503.6620 #### [facility] [address] [place], [address] ANES POSTPROC EVALon 024 ANES POSTPROC EVAL HNO ID: [id number] Author: BRADLY DUMONT MD Service: Anesthesiology Author Type: Anesthesiologist Type: Anesthesia Postprocedure Evaluation Filed: 11/29/2023 09:49 Note Text: POST ANESTHESIA EVALUATION NOTE : 1955 Procedure Summary Date: 11/29/23 Room / Location: [facility] Endoscopy Anesthesia Start: 755 Anesthesia Stop: 904 Procedure: COLONOSCOPY SCREENING Diagnosis: Screening for colon cancer (Screening for colorectal malignant neoplasm) Scheduled Providers: Rosemary Russell MD; Bradly Dumont MD; Buddy Gallegos APRN.DAG SPRAYER Responsible Provider: Bradly Dumont MD Anesthesia Type: MAC ASA Status: 3 Anesthesia Type: MAC Last Vitals Vitals Value Taken Time BP 168/77 11/29/23 0930 Temp 36 ?C (96.8 ?F) 11/29/23 0930 Pulse 51 11/29/23 0930 Resp 20 11/29/23 0930 SpO2 96 % 11/29/23 0930 Post Anesthesia Patient Status Patient Evaluation: PACU. [...] November 29, 2023 TIME: 9:48 AM CSN: [id number] Normal [facility] ANES PRE-OPon 11-29-2023 ANES PRE-OP HNO ID: [id number] Author: BRADLY DUMONT MD Service: Anesthesiology Author Type: Anesthesiologist Type: Anesthesia Preprocedure Evaluation Filed: 11/29/2023 07:24 Note Text: ANESTHESIOLOGY DAY OF SURGERY NOTE : 1955 Procedure Information Date/Time: 11/29/23 0815 Scheduled providers: Rosemary Russell MD; Bradly Dumont MD; Buddy Gallegos APRN.DAG SPRAYER Procedure: COLONOSCOPY SCREENING Location: [facility] Endoscopy Estimated body mass index is 36.02 kg/m? as calculated from the following: Height as of 04/23/23: 185.4 cm (6' 1). Weight as of 09/09/23: 123.8 kg (273 [...] and consent discussed: yes. Patient / Responsible Constitution Party agrees to proceed: yes Patient / [...] 1 SPRAY INTO EACH NOSTRIL EVERY DAY hhqpnktbajq-gjozmjpxn-dwa anter (TRELEGY ELLIPTA) 200-62.5-25 mcg inhalation powder [...] chloride 0.65 % nasal spray Use 1 Elbert in the nose as needed. Lactobacillus acidophilus [...] November 29, 2023 TIME: 7:24 AM CSN: [id number] Normal [facility] Colonoscopyon 11-29-2023 Colonoscopy [facility] Gastrointestinal Endoscopy Patient Name: Mars Peterson Procedure Date: 11/29/2023 7:49 AM Date of : 1955 Admit Type: Outpatient Age: 68 Room: [facility] Gender: Male Note Status: Finalized Attending MD: Rosemary Russell MD, [id number] Procedure: Colonoscopy Indications: Screening for colorectal malignant [...] anesthesia care under the supervision of a DAG SPRAYER was determined to be medically necessary for [...] screening purposes. (to be done by a pharmacist intern) - Return to primary care physician PRN. [...] malignant neoplasm of colon CPT copyright 2020 [employer]. All rights reserved. The codes documented in this report are preliminary and upon alignment technician review may be revised to meet current compliance requirements. Attending Participation: I personally performed the entire procedure. Scope In: 8:05:57 AM Scope Out: 8:56:03 AM MD Rosemary Kong MD 11/29/2023 9:02:02 AM This report has been signed electronically by Rosemary Russell MD Number of Addenda: 0 Note Initiated On: 11/29/2023 7:49 AM Estimated Blood Loss: Estimated blood loss: none. Normal [facility] Colonoscopy Study observatio non 11-29-2023 [facility] Gastrointestinal Endoscopy Patient Name: Mars Peterson Procedure Date: 11/29/2023 7:49 AM Date of : 1955 Admit Type: Outpatient Age: 68 Room: [facility] Gender: Male Note Status: Finalized Attending MD: Rosemary Russell MD, [id number] Procedure: Colonoscopy Indications: Screening for colorectal malignant [...] anesthesia care under the supervision of a DAG SPRAYER was determined to be medically necessary for [...] screening purposes. (to be done by a pharmacist intern) - Return to primary care physician PRN. [...] malignant neoplasm of colon CPT copyright 2020 [employer]. All rights reserved. The codes documented in this report are preliminary and upon alignment technician review may be revised to meet current compliance requirements. Attending Participation: I personally performed the entire procedure. Scope In: 8:05:57 AM Scope Out: 8:56:03 AM MD Rosemary Kong MD 11/29/2023 9:02:02 AM This report has been signed electronically by Rosemary Russell MD Number of Addenda: 0 Note Initiated On: 11/29/2023 7:49 AM Estimated Blood Loss: Estimated blood loss: none. PROVATION [facility] Radiology Study observation (narrative) [facility] HISTORY PHYSICALon HISTORY PHYSICAL HNO ID: [id number] Author: ROSEMARY RUSSELL MD Service: General Surgery Author Type: Physician Type: H&P Filed: 11/29/2023 07:54 Note Text: HISTORY AND PHYSICAL Mars Peterson 1955 REFERRING PHYSICIAN: Mone Robertson PA-C CHIEF COMPLAINT: No chief complaint on file. 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 Lactobacillus acidophilus [...] breath juvenal (more content not included)... Normal [facility] Colonoscopy Study observatio non 06-20-2023 [facility] EGD Study observation Narrat iveon 06-20-2023 [facility] Gastrointestinal pathogens i dentified EVELIO+probe Nom (Stl)on 02-08-2023 Campylobacter sp DNA EVELIO+probe Nom (Unsp spec) Not detected Not Detected [facility] Salmonella sp DNA EVELIO+probe Ql (Unsp spec) Not detected Not Detected [facility] Shiga toxin stx gene EVELIO+probe Nom (Unsp spec) Not detected Not Detected [facility] Shigella sp DNA EVELIO+probe Ql (Unsp spec) Not detected Not Detected [facility] CDIFF PCR W/RFLX EIA IF POSI TIVEon 02-07-2023 C. difficile toxin genes EVELIO+probe Ql (Stl) Negative Negative for C. difficile toxin by PCR [facility] FECAL OCCULT BLOOD TESTon Lower GI hemoglobin IA Ql (Stl) Positive Abnormal Negative [facility] SPIROMETRY WITH DILATOR IF O BSTRUCTEDon 11-20-2022 VHL39-20% POST (L/S) 1.11 L/S [facility] ZGY88-06% PRE (L/S) 0.89 L/S [facility] FEV1 PRE (L) 2.09 L [facility] FEV1/FVC POST (%) 66 % [facility] FEV1/FVC PRE (%) 64 % [facility] FEV1_POST (L) 2.20 L [facility] FVC POST (L) 3.32 L [facility] FVC PRE (L) 3.29 L [facility] PEF POST (L/S) 6.22 L/S [facility] PEF PRE (L/S) 5.57 L/S [facility] XR CHEST 2V FRONTAL/LATon [facility] CT CHEST W IVCON PEon 2022 Radiology Result ACTIONABLE Abnormal [facility] D-DIMERon 08-21-2022 Fibrin D-dimer FEU (PPP) [Mass/Vol] 1310 ng/mL FEU High <500 ng/mL FEU [facility] Fibrin D-dimer FEU (PPP) [Ma ss/Vol]on 08-21-2022 D Dimer Age-related Cutoff 690 ng/mL FEU [facility] NT PRO BNPon 08-21-2022 Natriuretic peptide.B prohormone N-Terminal [Mass/Vol] 821 pg/mL High <125 pg/mL [facility] URINE CULTUREon 02-22-2022 Bacteria identified Cx Nom (U) 50,000-<100,000 CFU/ml Enterococcus faecalis Abnormal [facility] Bacteria identified Cx Nom (U) 5,000 - <10,000 CFU/ml Normal urogenital yaya [facility], URINE (POC)on 2021 BILIRUBIN UA (POCT) Negative Negative [facility] CLARITY UA (POCT) Slightly Cloudy Cl [facility] COLOR UA (POCT) Yellow [facility] GLUCOSE UA (POCT) Negative Negative mg/dL [facility] HEMOGLOBIN/BLOOD UA (POCT) Small Abnormal Negative [facility] KETONE UA (POCT) Negative Negative mg/dL [facility] LEUKOCYTES UA (POCT) Large Abnormal Negative [facility] NITRITE UA (POCT) Negative Negative [facility] PH UA (POCT) 7.0 4.5 - 8.0 [facility] Protein Ql (U) Negative Negative mg/dL [facility] SPECIFIC GRAVITY UA (POCT) 1.015 1.005 - 1.030 [facility] UROBILINOGEN UA (POCT) 1.0 E.U./dL Siomara l E.U./dL [facility] XR CHEST 2V FRONTAL/LATon [facility] CBC W Auto Differential pane l (Bld)on 02-01-2022 Basophils (Bld) [#/Vol] 0.03 10*3/uL <0.11 k/uL [facility] Basophils/100 WBC (Bld) 0.3 % [facility] Differential cell count method Nom (Bld) Auto [facility] Eosinophils (Bld) [#/Vol] 0.31 10*3/uL <0.46 k/uL [facility] Eosinophils/100 WBC (Bld) 3.4 % [facility] Erythrocyte distribution width (RBC) [Ratio] 14.7 % 11.5 - 15.0 % [facility] Hematocrit (Bld) [Volume fraction] 43.8 % 39.0 - 51.0 % [facility] Hemoglobin (Bld) [Mass/Vol] 13.8 g/dL 13.0 - 17.0 g/dL [facility] Lymphocytes (Bld) [#/Vol] 1.65 10*3/uL 1.00 - 4.00 k/uL [facility] Lymphocytes/100 WBC (Bld) 18.2 % [facility] MCH (RBC) [Entitic mass] 26.1 pg 26.0 - 34.0 pg [facility] MCHC (RBC) [Mass/Vol] 31.5 g/dL 30.5 - 36.0 g/dL [facility] MCV (RBC) [Entitic vol] 82.8 fL 80.0 - 100.0 fL [facility] Monocytes (Bld) [#/Vol] 1.34 10*3/uL High <0.87 k/uL [facility] Monocytes/100 WBC (Bld) 14.8 % [facility] Neutrophils (Bld) [#/Vol] 5.75 10*3/uL 1.45 - 7.50 k/uL [facility] Neutrophils/100 WBC (Bld) 63.3 % [facility] Platelet mean volume (Bld) [Entitic vol] 9.6 fL 9.0 - 12.7 fL [facility] Platelets (Bld) [#/Vol] 229 10*3/uL 150 - 400 k/uL [facility] RBC (Bld) [#/Vol] 5.29 10*6/uL 4.20 - 6.0 0 m/uL [facility] WBC (Bld) [#/Vol] 9.08 10*3/uL 3.70 - 11.00 k/uL [facility] Comprehensive metabolic 2000 panelon 02-01-2022 Albumin [Mass/Vol] 3.7 g/dL Low 3.9 - 4.9 g/dL [facility] ALP [Catalytic activity/Vol] 75 U/L 38 - 113 U/L [facility] ALT With P-5'-P [Catalytic activity/Vol] 12 U/L 10 - 54 U/L [facility] Anion gap [Moles/Vol] 10 mmol/L 9 - 18 mmol/L [facility] AST With P-5'-P [Catalytic activity/Vol] 20 U/L 14 - 40 U/L [facility] Bilirubin [Mass/Vol] 0.4 mg/dL 0.2 - 1 .3 mg/dL [facility] Calcium [Mass/Vol] 9.2 mg/dL 8.5 - 10. 2 mg/dL [facility] Chloride [Moles/Vol] 93 mmol/L Low 97 - 10 5 mmol/L [facility] CO2 [Moles/Vol] 28 mmol/L 22 - 30 mmol/L [facility] Creatinine [Mass/Vol] 1.32 mg/dL High 0.73 - 1.22 mg/dL [facility] Estimated Glomerular Filtration Rate 59 mL/min/1.73m Low >=60 mL/min/1.73 m [facility] Glucose [Mass/Vol] 111 mg/dL High 74 - 99 mg/dL [facility] Potassium [Moles/Vol] 4.6 mmol/L 3.7 - 5.1 mmol/L [facility] Protein [Mass/Vol] 7.4 g/dL 6.3 - 8.0 g/dL [facility] Sodium [Moles/Vol] 131 mmol/L Low 136 - 144 mmol/L [facility] Urea nitrogen [Mass/Vol] 8 mg/dL Low 9 - 24 mg/dL [facility] Lipid 1996 panelon Cholesterol [Mass/Vol] 204 mg/dL High <200 mg/dL Cl [facility] Cholesterol in HDL [Mass/Vol] 39 mg/dL Low >39 mg/dL [facility] Cholesterol in LDL [Mass/Vol] 130 mg/dL High <100 mg/dL [facility] Cholesterol in LDL/Cholesterol in HDL [Mass ratio] 3.33 {ratio} High <2.54 [facility] Cholesterol in VLDL [Mass/Vol] 35 mg/dL High <30 mg/dL [facility] Cholesterol non HDL [Mass/Vol] 165 mg/dL High <130 mg/dL [facility] Cholesterol.total/Chol esterol in HDL [Mass ratio] 5.23 {ratio} High <5.10 [facility] Fasting Time 12 hrs [facility] Triglyceride [Mass/Vol] 173 mg/dL High <150 mg/dL [facility] MAGNESIUM BLDon 02-01-2022 Magnesium [Mass/Vol] 2.0 mg/dL 1.7 - 2 .3 mg/dL [facility] NT PRO BNPon 02-01-2022 Natriuretic peptide.B prohormone N-Terminal [Mass/Vol] 575 pg/mL High <125 pg/mL [facility] VITAMIN B12 BLOODon 02-02-20 Cobalamin (Vitamin B12) [Mass/Vol] 447 pg/mL 232 - 1,245 pg/mL [facility] CT C-SPINE WO CONTRASTon CT C-SPINE WO CONTRAST Patient Name: MARS PETERSON STUDY: CT HEAD WO CONTRAST; CT C-SPINE WO CONTRAST; 10/15/2021 9:06 pm INDICATION: fall . COMPARISON: None. ACCESSION NUMBER(S): [id number]; [id number] ORDERING CLINICIAN: RICHARD NIETO TECHNIQUE: Noncontrast CT [...] spine. Electronically signed by: KISHA LONG MD [facility] CT HEAD WO CONTRASTon 2021 CT HEAD WO CONTRAST Patient Name: MARS PETERSON STUDY: CT HEAD WO CONTRAST; CT C-SPINE WO CONTRAST; 10/15/2021 9:06 pm INDICATION: fall . COMPARISON: None. ACCESSION NUMBER(S): [id number]; [id number] ORDERING CLINICIAN: RICHARD NIETO TECHNIQUE: Noncontrast CT [...] spine. Electronically signed by: KISHA LONG MD [facility] Provider Note - ED v3on 06-0 Provider Note - ED v3 Provider Note: [...] Alert and oriented x4, GCS 15 , manager information II-XII grossly intact. Sensation and motor function [...] SIGNS: T PRBP SpO2O2(LPM) %FiO2 Method 15-Oct-2021 21:08:[id number] 95 room air, no respiratory support MDM [...] Scores Last Updated: 15-Oct-2021 22:20 by Richard Nieto) References: 1. Data Referenced From Triage - ED 15-Oct-2021 21:08 [facility] Triage - EDon 10-15-2021 Triage - ED Quick Triage: The patient and/or guardian verbally acknowledges placement for services into the following (when Urgent Care Service hours are operating):emergency department Chart Review: ARRIVAL INFORMATION Mode of Arrival: ambulance Agency: [facility] Agency Name: [place] CHIEF COMPLAINT MARS PETERSON is a Male [...] BMI (kg/m2): 37.238 Calculated BSA (m2) 2.57 Jackson Coma Scale: Best Eye Response: (E4) spontaneous Best Motor Response: (M6) obeys commands Best Verbal Response: (V5) oriented Alfred Score: 15 Cough lasting greater than 3 [...] Updated: 15-Oct-2021 21:17 by Siria Golden (SUPV) [facility] Established Visit (Orthopaed ic Surgery)on 07-05-2020 Established Visit (Orthopaedic Surgery) Diagnoses/Problems Assessed Other closed intra-articular fracture of distal end of left radius, initial encounter (813.42) (K77.683W) Provider Impressions Assessment: Left distal radius intra-articular [...] CLOSE TO THE 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 XRAYS DONE History of Present Illness Pt [...] Tablet Vitals Vital Signs Recorded: 05Jul2020 02:37PM Uppmaoxayvs67.6 F Lglagbau81 Boyoxqqse93 Height5 ft 10 in Yneejm565 lb BMI Zapxndnvpr87.87 BSA Calculated2.29 Physical Exam LUE is NVI, limited ROM with flexion, extension, pronation and supination. mild tenderness with palpation of distal radius. Results/Data X-ray performed today see radiologist report for official readings Signatures Electronically signed by : Priya Rock PA-C; Jul 05 2020 3:06PM EST (Author) Normal Mobi [facility] Initial Visit (Orthopaedic Surgery) Diagnoses/Problems Assessed [...] 05/20/2020 WAS STANDING IN THE KITCHEN AND FACE PLATED ON THE FLOOR LANDING ON ARM. ARM IS TENDER. THROBBING [...] Tablet Vitals Vital Signs Recorded: 03Jun2020 10:18AM Kxbsccilcam55.2 F Ekklklmx421 Shloyatmi31 Height5 ft 10 in Zhiiru690 lb BMI Oyhgcsgtfd18.44 BSA Calculated2.28 Physical Exam Left upper extremity is neurovascularly intact range of motion deferred, positive tenderness of the distal radius, abrasion on the dorsal aspect of the hand with no erythema or drainage. Hand is nontender Results/Data Xray Wrist 2 [id number] 12:00AMPriya Rock [Jun 03, 2020 11:01AM Priya [...] Jun 03 2020 12:32PM EST (Author) [facility] Vital Signs Date Time Vital Sign Value Performing Clinician Facility 11-11-2024 09:23-0400 Body height 182.9 cm Tru Simon MD Work Phone: [facility] 11-11-2024 09:23-0400 Body mass index (BMI) [Ratio] 35.94 kg/m2 Tru Simon MD Work Phone: [facility] 11-11-2024 09:23-0400 Body temperature 97.39 [degF] Tru Simon MD Work Phone: [facility] 11-11-2024 09:23-0400 Body weight 120.2 kg Tru Simon MD Work Phone: [facility] 11-11-2024 09:23-0400 Diastolic blood pressure 63 mm[Hg] Tru Simon MD Work Phone: [facility] 11-11-2024 09:23-0400 Heart rate 66 /min Tru Simon MD Work Phone: [facility] 11-11-2024 09:23-0400 SaO2% (BldA) [Mass fraction] 95 % Tru Simon MD Work Phone: [facility] Comment on above: 3L o2 11-11-2024 09:23-0400 Systolic blood pressure 126 mm[Hg] Tru Simon MD Work Phone: [facility] 11-10-2024 15:31-0400 Body temperature 97.7 [degF] Alma Queden WINDOWS SECURITY ENGINEER.SPECIALTY THERAPIST Work Phone: [facility] 11-10-2024 15:31-0400 Diastolic blood pressure 78 mm[Hg] Alma Queden WINDOWS SECURITY ENGINEER.SPECIALTY THERAPIST Work Phone: [facility] 11-10-2024 15:31-0400 Heart rate 68 /min Alma Queden WINDOWS SECURITY ENGINEER.SPECIALTY THERAPIST Work Phone: [facility] 11-10-2024 15:31-0400 Respiratory rate 16 /min Alma Queden WINDOWS SECURITY ENGINEER.SPECIALTY THERAPIST Work Phone: [facility] 11-10-2024 15:31-0400 SaO2% (BldA) [Mass fraction] 89 % Alma Queden WINDOWS SECURITY ENGINEER.SPECIALTY THERAPIST Work Phone: [facility] 11-10-2024 15:31-0400 Systolic blood pressure 124 mm[Hg] Alma Queden WINDOWS SECURITY ENGINEER.SPECIALTY THERAPIST Work Phone: [facility] 10-29-2024 09:40-0400 Body height 182.9 cm Tru Lucas PA-C Work Phone: [facility] 10-29-2024 09:40-0400 Body mass index (BMI) [Ratio] 36.78 kg/m2 Tru Pelini PA-C Work Phone: [facility] 10-29-2024 09:40-0400 Body temperature 97.7 [degF] Tru Pelini PA-C Work Phone: [facility] 10-29-2024 09:40-0400 Body weight 123 kg Tru Pelini PA-C Work Phone: [facility] 10-29-2024 09:40-0400 Diastolic blood pressure 74 mm[Hg] Tru Pelini PA-C Work Phone: [facility] 10-29-2024 09:40-0400 Heart rate 70 /min Tru Pelini PA-C Work Phone: [facility] 10-29-2024 09:40-0400 Respiratory rate 18 /min Tru Pelini PA-C Work Phone: [facility] 10-29-2024 09:40-0400 SaO2% (BldA) [Mass fraction] 95 % Tru Pelini PA-C Work Phone: [facility] Comment on above: o2 set at 3L 10-29-2024 09:40-0400 Systolic blood pressure 126 mm[Hg] Tru Pelini PA-C Work Phone: [facility] 10-21-2024 09:35-0400 Body height 182.9 cm Bear Mikulski PA-C Work Phone: [facility] 10-21-2024 09:35-0400 Body mass index (BMI) [Ratio] 35.94 kg/m2 Bear Mikulski PA-C Work Phone: [facility] 10-21-2024 09:35-0400 Body weight 120.2 kg Bear Mikulski PA-C Work Phone: [facility] 10-21-2024 09:35-0400 Respiratory rate 20 /min Bear Mikulski PA-C Work Phone: [facility] 09-23-2024 14:20-0400 Body height 182.9 cm Sandra Hummel MD Work Phone: [facility] 09-23-2024 14:20-0400 Body mass index (BMI) [Ratio] 37.03 kg/m2 Sandra Hummel MD Work Phone: [facility] 09-23-2024 14:20-0400 Body weight 123.83 kg Sandra Hummel MD Work Phone: [facility] 09-23-2024 14:20-0400 Respiratory rate 20 /min Sandra Hummel MD Work Phone: [facility] 09-21-2024 09:42-0400 Body height 182.9 cm Tru Simon MD Work Phone: [facility] 09-21-2024 09:42-0400 Body mass index (BMI) [Ratio] 37.11 kg/m2 Tru Simon MD Work Phone: [facility] 09-21-2024 09:42-0400 Body temperature 98.1 [degF] Tru Simon MD Work Phone: [facility] 09-21-2024 09:42-0400 Body weight 124.1 kg Tru Simon MD Work Phone: [facility] 09-21-2024 09:42-0400 Diastolic blood pressure 83 mm[Hg] Tru Simon MD Work Phone: [facility] 09-21-2024 09:42-0400 Heart rate 68 /min Tru Simon MD Work Phone: [facility] 09-21-2024 09:42-0400 SaO2% (BldA) [Mass fraction] 96 % Tru Simon MD Work Phone: [facility] Comment on above: 3L 09-21-2024 09:42-0400 Systolic blood pressure 150 mm[Hg] Tru Simon MD Work Phone: [facility] 08-17-2024 11:47-0400 Diastolic blood pressure 81 mm[Hg] Beatrice Sarmiento MD Work Phone: [facility] 08-17-2024 11:47-0400 Heart rate 77 /min Beatrice Sarmiento MD Work Phone: [facility] 08-17-2024 11:47-0400 SaO2% (BldA) [Mass fraction] 96 % Beatrice Sarmiento MD Work Phone: [facility] Comment on above: at 2L O2 continuous 08-17-2024 11:47-0400 Systolic blood pressure 133 mm[Hg] Beatrice Sarmiento MD Work Phone: [facility] 07-14-2024 16:38-0500 Body temperature 97.5 [degF] Alma Queden WINDOWS SECURITY ENGINEER.SPECIALTY THERAPIST Work Phone: [facility] 07-14-2024 16:38-0500 Diastolic blood pressure 76 mm[Hg] Alma Queden WINDOWS SECURITY ENGINEER.SPECIALTY THERAPIST Work Phone: [facility] 07-14-2024 16:38-0500 Heart rate 62 /min Alma Queden WINDOWS SECURITY ENGINEER.SPECIALTY THERAPIST Work Phone: [facility] 07-14-2024 16:38-0500 Respiratory rate 18 /min Alma Queden WINDOWS SECURITY ENGINEER.SPECIALTY THERAPIST Work Phone: [facility] 07-14-2024 16:38-0500 SaO2% (BldA) [Mass fraction] 97 % Alma Queden WINDOWS SECURITY ENGINEER.SPECIALTY THERAPIST Work Phone: [facility] Comment on above: 3 L 07-14-2024 16:38-0500 Systolic blood pressure 124 mm[Hg] Alma Queden WINDOWS SECURITY ENGINEER.SPECIALTY THERAPIST Work Phone: [facility] 06-24-2024 14:02-0500 Diastolic blood pressure 70 mm[Hg] Tru Simon MD Work Phone: [facility] 06-24-2024 14:02-0500 Systolic blood pressure 136 mm[Hg] Tru Simon MD Work Phone: [facility] 06-24-2024 13:47-0500 Body mass index (BMI) [Ratio] 38.18 kg/m2 Tru Simon MD Work Phone: [facility] 06-24-2024 13:47-0500 Body temperature 98.01 [degF] Tru Simon MD Work Phone: [facility] 06-24-2024 13:47-0500 Body weight 127.7 kg Tru Simon MD Work Phone: [facility] 06-24-2024 13:47-0500 Heart rate 65 /min Tru Simon MD Work Phone: [facility] 06-24-2024 13:47-0500 SaO2% (BldA) [Mass fraction] 96 % Tru Simon MD Work Phone: [facility] Comment on above: 3 liters 04-27-2024 14:18-0500 Body height 182.9 cm Pulm Wstr Work Phone: [facility] 04-27-2024 14:18-0500 Body mass index (BMI) [Ratio] 36.75 kg/m2 Pulm Wstr Work Phone: [facility] 04-27-2024 14:18-0500 Body weight 122.92 kg Pulm Wstr Work Phone: [facility] 04-22-2024 14:10-0500 Body height 182.9 cm Tru Simon MD Work Phone: [facility] 04-22-2024 14:10-0500 Body mass index (BMI) [Ratio] 36.79 kg/m2 Tru Simon MD Work Phone: [facility] 04-22-2024 14:10-0500 Body temperature 97 [degF] Tru Simon MD Work Phone: [facility] 04-22-2024 14:10-0500 Body weight 123.06 kg Tru Simon MD Work Phone: [facility] 04-22-2024 14:10-0500 Diastolic blood pressure 72 mm[Hg] Tru Simon MD Work Phone: [facility] 04-22-2024 14:10-0500 Heart rate 52 /min Tru Simon MD Work Phone: [facility] 04-22-2024 14:10-0500 SaO2% (BldA) [Mass fraction] 99 % Tru Simon MD Work Phone: [facility] 04-22-2024 14:10-0500 Systolic blood pressure 122 mm[Hg] Tru Simon MD Work Phone: [facility] 03-30-2024 11:29-0500 Body height 182.9 cm Alma Queden WINDOWS SECURITY ENGINEER.SPECIALTY THERAPIST Work Phone: [facility] 03-30-2024 11:29-0500 Body temperature 97.9 [degF] Alma Queden WINDOWS SECURITY ENGINEER.SPECIALTY THERAPIST Work Phone: [facility] 03-30-2024 11:29-0500 Diastolic blood pressure 54 mm[Hg] Alma Queden WINDOWS SECURITY ENGINEER.SPECIALTY THERAPIST Work Phone: [facility] 03-30-2024 11:29-0500 Heart rate 59 /min Alma Queden WINDOWS SECURITY ENGINEER.SPECIALTY THERAPIST Work Phone: [facility] 03-30-2024 11:29-0500 Respiratory rate 18 /min Alma Queden WINDOWS SECURITY ENGINEER.SPECIALTY THERAPIST Work Phone: [facility] 03-30-2024 11:29-0500 SaO2% (BldA) [Mass fraction] 98 % Alma Queden WINDOWS SECURITY ENGINEER.SPECIALTY THERAPIST Work Phone: [facility] Comment on above: 3 l 03-30-2024 11:29-0500 Systolic blood pressure 118 mm[Hg] Alma Queden WINDOWS SECURITY ENGINEER.SPECIALTY THERAPIST Work Phone: [facility] 03-27-2024 13:51-0500 Body mass index (BMI) [Ratio] 36.7 kg/m2 Mitchell Click WINDOWS SECURITY ENGINEER.SPECIALTY THERAPIST Work Phone: [facility] 03-27-2024 13:51-0500 Body temperature 97.3 [degF] Mitchell Click WINDOWS SECURITY ENGINEER.SPECIALTY THERAPIST Work Phone: [facility] 03-27-2024 13:51-0500 Body weight 122.74 kg Mitchell Click WINDOWS SECURITY ENGINEER.SPECIALTY THERAPIST Work Phone: [facility] 03-27-2024 13:51-0500 Diastolic blood pressure 76 mm[Hg] Mitchell Click WINDOWS SECURITY ENGINEER.SPECIALTY THERAPIST Work Phone: [facility] 03-27-2024 13:51-0500 Heart rate 64 /min Mitchell Click WINDOWS SECURITY ENGINEER.SPECIALTY THERAPIST Work Phone: [facility] 03-27-2024 13:51-0500 SaO2% (BldA) [Mass fraction] 95 % Mitchell Click WINDOWS SECURITY ENGINEER.SPECIALTY THERAPIST Work Phone: [facility] 03-27-2024 13:51-0500 Systolic blood pressure 162 mm[Hg] Mitchell Click WINDOWS SECURITY ENGINEER.SPECIALTY THERAPIST Work Phone: [facility] 03-13-2024 13:48-0400 Body height 182.9 cm Mitchell Click WINDOWS SECURITY ENGINEER.SPECIALTY THERAPIST Work Phone: [facility] 03-13-2024 13:48-0400 Body mass index (BMI) [Ratio] 36.48 kg/m2 Mitchell Click WINDOWS SECURITY ENGINEER.SPECIALTY THERAPIST Work Phone: [facility] 03-13-2024 13:48-0400 Body weight 122 kg Mitchell Click WINDOWS SECURITY ENGINEER.SPECIALTY THERAPIST Work Phone: [facility] 03-13-2024 13:48-0400 Diastolic blood pressure 72 mm[Hg] Mitchell Click WINDOWS SECURITY ENGINEER.SPECIALTY THERAPIST Work Phone: [facility] 03-13-2024 13:48-0400 Heart rate 60 /min Mitchell Click WINDOWS SECURITY ENGINEER.SPECIALTY THERAPIST Work Phone: [facility] 03-13-2024 13:48-0400 Respiratory rate 22 /min Mitchell Click WINDOWS SECURITY ENGINEER.SPECIALTY THERAPIST Work Phone: [facility] 03-13-2024 13:48-0400 SaO2% (BldA) [Mass fraction] 95 % Mitchell Click WINDOWS SECURITY ENGINEER.SPECIALTY THERAPIST Work Phone: [facility] Comment on above: O2 via NC at 3 L/M 03-13-2024 13:48-0400 Systolic blood pressure 122 mm[Hg] Mitchell Click WINDOWS SECURITY ENGINEER.SPECIALTY THERAPIST Work Phone: [facility] 03-13-2024 13:35-0400 Body height 182.9 cm Pulm Wstr Work Phone: [facility] 03-13-2024 13:35-0400 Body mass index (BMI) [Ratio] 36.48 kg/m2 Pulm Wstr Work Phone: [facility] 03-13-2024 13:35-0400 Body weight 122.02 kg Pulm Wstr Work Phone: [facility] 03-13-2024 13:35-0400 Heart rate 64 /min Pulm Wstr Work Phone: [facility] 03-13-2024 13:35-0400 Respiratory rate 22 /min Pulm Wstr Work Phone: [facility] 03-13-2024 13:35-0400 SaO2% (BldA) [Mass fraction] 87 % Pulm Wstr Work Phone: [facility] Comment on above: 3L NC increased to 4L [id number] 03-02-2024 15:43-0400 Body mass index (BMI) [Ratio] 35.49 kg/m2 Alma Queden WINDOWS SECURITY ENGINEER.SPECIALTY THERAPIST Work Phone: [facility] 03-02-2024 15:43-0400 Body temperature 97.59 [degF] Alma Queden WINDOWS SECURITY ENGINEER.SPECIALTY THERAPIST Work Phone: [facility] 03-02-2024 15:43-0400 Body weight 122.02 kg Alma Queden WINDOWS SECURITY ENGINEER.SPECIALTY THERAPIST Work Phone: [facility] 03-02-2024 15:43-0400 Diastolic blood pressure 68 mm[Hg] Alma Queden WINDOWS SECURITY ENGINEER.SPECIALTY THERAPIST Work Phone: [facility] 03-02-2024 15:43-0400 Heart rate 62 /min Alma Queden WINDOWS SECURITY ENGINEER.SPECIALTY THERAPIST Work Phone: [facility] 03-02-2024 15:43-0400 Respiratory rate 18 /min Alma Queden WINDOWS SECURITY ENGINEER.SPECIALTY THERAPIST Work Phone: [facility] 03-02-2024 15:43-0400 SaO2% (BldA) [Mass fraction] 95 % Alma Gill WINDOWS SECURITY ENGINEER.SPECIALTY THERAPIST Work Phone: [facility] Comment on above: 3 L 03-02-2024 15:43-0400 Systolic blood pressure 118 mm[Hg] Alma Queviolet WINDOWS SECURITY ENGINEER.SPECIALTY THERAPIST Work Phone: [facility] 02-03-2024 16:33-0400 Body mass index (BMI) [Ratio] 34.17 kg/m2 Beatrice Sramiento MD Work Phone: [facility] 02-03-2024 16:33-0400 Body weight 117.48 kg Beatrice Sarmiento MD Work Phone: [facility] Comment on above: 01/15/2024 02-03-2024 16:33-0400 Diastolic blood pressure 55 mm[Hg] Beatrice Sarmiento MD Work Phone: [facility] 02-03-2024 16:33-0400 Heart rate 64 /min Beatrice Sarmiento MD Work Phone: [facility] 02-03-2024 16:33-0400 SaO2% (BldA) [Mass fraction] 91 % Beatrice Sarmiento MD Work Phone: [facility] Comment on above: with O2 3L continuous 02-03-2024 16:33-0400 Systolic blood pressure 95 mm[Hg] Beatrice Sarmiento MD Work Phone: [facility] 01-29-2024 11:08-0400 Diastolic blood pressure 58 mm[Hg] Lilian Rodríguez PA-C Work Phone: [facility] 01-29-2024 11:08-0400 Heart rate 72 /min Lilian Looone PA-C Work Phone: [facility] 01-29-2024 11:08-0400 Respiratory rate 22 /min Lilian Looone PA-C Work Phone: [facility] 01-29-2024 11:08-0400 SaO2% (BldA) [Mass fraction] 91 % Lilian Rodríguez PA-C Work Phone: [facility] Comment on above: O2 at 2 L/M via NC 01-29-2024 11:08-0400 Systolic blood pressure 104 mm[Hg] Lilian Rodríguez PA-C Work Phone: [facility] 11-29-2023 09:30-0400 Body temperature 96.8 [degF] Rosemary Russell MD Work Phone: [facility] 11-29-2023 09:30-0400 Diastolic blood pressure 77 mm[Hg] Rosemary Russell MD Work Phone: [facility] 11-29-2023 09:30-0400 Heart rate 51 /min Rosemary Russell MD Work Phone: [facility] 11-29-2023 09:30-0400 Respiratory rate 20 /min Rosemary Russell MD Work Phone: [facility] 11-29-2023 09:30-0400 SaO2% (BldA) [Mass fraction] 96 % Rosemary Russell MD Work Phone: [facility] 11-29-2023 09:30-0400 Systolic blood pressure 168 mm[Hg] Rosemary Russell MD Work Phone: [facility] 11-29-2023 07:39-0400 Body height 185.4 cm Rosemary Russell MD Work Phone: [facility] 11-29-2023 07:39-0400 Body mass index (BMI) [Ratio] 36.02 kg/m2 Rosemary Russell MD Work Phone: [facility] 11-29-2023 07:39-0400 Body weight 123.83 kg Rosemary Russell MD Work Phone: [facility] 10-15-2023 11:42-0400 Diastolic blood pressure 74 mm[Hg] Katelynn Knowles DO Work Phone: [facility] 10-15-2023 11:42-0400 Heart rate 58 /min Katelynn Knowles DO Work Phone: [facility] 10-15-2023 11:42-0400 SaO2% (BldA) [Mass fraction] 95 % Katelynn Knowles DO Work Phone: [facility] 10-15-2023 11:42-0400 Systolic blood pressure 156 mm[Hg] Katelynn Knowles DO Work Phone: [facility] 09-09-2023 11:57-0400 Body mass index (BMI) [Ratio] 36.02 kg/m2 Francisco Patel MD Work Phone: [facility] 09-09-2023 11:57-0400 Body temperature 98.4 [degF] Francisco Patel MD Work Phone: [facility] 09-09-2023 11:57-0400 Body weight 123.83 kg Francisco Patel MD Work Phone: [facility] 09-09-2023 11:57-0400 Diastolic blood pressure 78 mm[Hg] Francisco Patel MD Work Phone: [facility] 09-09-2023 11:57-0400 Heart rate 70 /min Francisco Patel MD Work Phone: [facility] 09-09-2023 11:57-0400 Respiratory rate 16 /min Francisco Patel MD Work Phone: [facility] 09-09-2023 11:57-0400 SaO2% (BldA) [Mass fraction] 93 % Francisco Patel MD Work Phone: [facility] 09-09-2023 11:57-0400 Systolic blood pressure 138 mm[Hg] Francisco Patel MD Work Phone: [facility] 09-03-2023 15:42-0400 Body temperature 97.39 [degF] Alma Gill WINDOWS SECURITY ENGINEER.SPECIALTY THERAPIST Work Phone: [facility] 09-03-2023 15:42-0400 Diastolic blood pressure 72 mm[Hg] Alma Queden WINDOWS SECURITY ENGINEER.SPECIALTY THERAPIST Work Phone: [facility] 09-03-2023 15:42-0400 Heart rate 54 /min Alma Queden WINDOWS SECURITY ENGINEER.SPECIALTY THERAPIST Work Phone: [facility] 09-03-2023 15:42-0400 Respiratory rate 16 /min Alma Queden WINDOWS SECURITY ENGINEER.SPECIALTY THERAPIST Work Phone: [facility] 09-03-2023 15:42-0400 SaO2% (BldA) [Mass fraction] 96 % Alma Queden WINDOWS SECURITY ENGINEER.SPECIALTY THERAPIST Work Phone: [facility] 09-03-2023 15:42-0400 Systolic blood pressure 126 mm[Hg] Alma Queden WINDOWS SECURITY ENGINEER.SPECIALTY THERAPIST Work Phone: [facility] 08-29-2023 14:21-0400 Diastolic blood pressure 75 mm[Hg] Katelynn Knowles DO Work Phone: [facility] 08-29-2023 14:21-0400 Heart rate 61 /min Katelynn Knowles DO Work Phone: [facility] 08-29-2023 14:21-0400 SaO2% (BldA) [Mass fraction] 95 % Katelynn Knowles DO Work Phone: [facility] 08-29-2023 14:21-0400 Systolic blood pressure 137 mm[Hg] Katelynn Knowles DO Work Phone: [facility] 07-22-2023 11:12-0400 Body weight 125.65 kg Beatrice Sarmiento MD Work Phone: [facility] 07-22-2023 11:12-0400 Diastolic blood pressure 79 mm[Hg] Beatrice Sarmiento MD Work Phone: [facility] 07-22-2023 11:12-0400 Heart rate 59 /min Beatrice Sarmiento MD Work Phone: [facility] 07-22-2023 11:12-0400 SaO2% (BldA) [Mass fraction] 97 % Beatrice Sarmiento MD Work Phone: [facility] 07-22-2023 11:12-0400 Systolic blood pressure 147 mm[Hg] Beatrice Sarmiento MD Work Phone: [facility] 06-20-2023 09:10-0500 Diastolic blood pressure 64 mm[Hg] David Lee MD Work Phone: [facility] 06-20-2023 09:10-0500 Heart rate 52 /min David Lee MD Work Phone: [facility] 06-20-2023 09:10-0500 Respiratory rate 18 /min David Lee MD Work Phone: [facility] 06-20-2023 09:10-0500 SaO2% (BldA) [Mass fraction] 97 % David Lee MD Work Phone: [facility] 06-20-2023 09:10-0500 Systolic blood pressure 138 mm[Hg] David Lee MD Work Phone: [facility] 06-20-2023 07:42-0500 Body temperature 97.5 [degF] David Lee MD Work Phone: [facility] 04-23-2023 14:46-0500 Body height 185.4 cm Mone Robertson PA-C Work Phone: [facility] 04-23-2023 14:46-0500 Body weight 125.65 kg Mone Roberston PA-C Work Phone: [facility] 04-23-2023 14:46-0500 Diastolic blood pressure 76 mm[Hg] Mone Robertson PA-C Work Phone: [facility] 04-23-2023 14:46-0500 Heart rate 60 /min Mone Orbertson PA-C Work Phone: [facility] 04-23-2023 14:46-0500 Systolic blood pressure 136 mm[Hg] Mone Robertson PA-C Work Phone: [facility] 04-15-2023 13:56-0500 Diastolic blood pressure 78 mm[Hg] Lilian Elvia PA-C Work Phone: [facility] 04-15-2023 13:56-0500 Heart rate 58 /min Lilian Elvia PA-C Work Phone: [facility] 04-15-2023 13:56-0500 Respiratory rate 15 /min Lilian Elvia PA-C Work Phone: [facility] 04-15-2023 13:56-0500 SaO2% (BldA) [Mass fraction] 95 % Lilian Elvia PA-C Work Phone: [facility] 04-15-2023 13:56-0500 Systolic blood pressure 128 mm[Hg] Lilian Elvia PA-C Work Phone: [facility] 03-04-2023 13:22-0400 Heart rate 54 /min Lilian Elvia PA-C Work Phone: [facility] 03-04-2023 13:22-0400 Respiratory rate 19 /min Lilian Elvia PA-C Work Phone: [facility] 03-04-2023 13:22-0400 SaO2% (BldA) [Mass fraction] 94 % Lilian Elvia PA-C Work Phone: [facility] 01-21-2023 13:52-0400 Body weight 127.55 kg Lilian Elvia PA-C Work Phone: [facility] 01-21-2023 13:52-0400 Diastolic blood pressure 74 mm[Hg] Lilian Elvia PA-C Work Phone: [facility] 01-21-2023 13:52-0400 Heart rate 56 /min Lilian Elvia PA-C Work Phone: [facility] 01-21-2023 13:52-0400 Respiratory rate 22 /min Lilian Elvia PA-C Work Phone: [facility] 01-21-2023 13:52-0400 SaO2% (BldA) [Mass fraction] 95 % Lilian Elvia PA-C Work Phone: [facility] 01-21-2023 13:52-0400 Systolic blood pressure 132 mm[Hg] Lilian Rodríguez PA-C Work Phone: [facility] 11-20-2022 15:06-0400 Diastolic blood pressure 58 mm[Hg] Francisco Patel MD Work Phone: [facility] 11-20-2022 15:06-0400 Systolic blood pressure 118 mm[Hg] Francisco Ptael MD Work Phone: [facility] 11-08-2022 11:41-0400 Diastolic blood pressure 70 mm[Hg] Nurse Nigel Work Phone: [facility] 11-08-2022 11:41-0400 Systolic blood pressure 128 mm[Hg] Nurse Nigel Work Phone: [facility] 09-13-2022 11:28-0400 Body temperature 97.59 [degF] Alma Queden WINDOWS SECURITY ENGINEER.SPECIALTY THERAPIST Work Phone: [facility] 09-13-2022 11:28-0400 Body weight 124.29 kg Alma Queden WINDOWS SECURITY ENGINEER.SPECIALTY THERAPIST Work Phone: [facility] 09-13-2022 11:28-0400 Diastolic blood pressure 72 mm[Hg] Alma Queden WINDOWS SECURITY ENGINEER.SPECIALTY THERAPIST Work Phone: [facility] 09-13-2022 11:28-0400 Heart rate 52 /min Alma Queden WINDOWS SECURITY ENGINEER.SPECIALTY THERAPIST Work Phone: [facility] 09-13-2022 11:28-0400 Respiratory rate 18 /min Alma Queden WINDOWS SECURITY ENGINEER.SPECIALTY THERAPIST Work Phone: [facility] 09-13-2022 11:28-0400 SaO2% (BldA) [Mass fraction] 95 % Alma Queden WINDOWS SECURITY ENGINEER.SPECIALTY THERAPIST Work Phone: [facility] 09-13-2022 11:28-0400 Systolic blood pressure 126 mm[Hg] Alma Queden WINDOWS SECURITY ENGINEER.SPECIALTY THERAPIST Work Phone: [facility] 08-21-2022 15:21-0400 Body temperature 97.81 [degF] Alma Queden WINDOWS SECURITY ENGINEER.SPECIALTY THERAPIST Work Phone: [facility] 08-21-2022 15:21-0400 Body weight 125.19 kg Alma Queden WINDOWS SECURITY ENGINEER.SPECIALTY THERAPIST Work Phone: [facility] 08-21-2022 15:21-0400 Diastolic blood pressure 68 mm[Hg] Alma Queden WINDOWS SECURITY ENGINEER.SPECIALTY THERAPIST Work Phone: [facility] 08-21-2022 15:21-0400 Heart rate 55 /min Alma Queden WINDOWS SECURITY ENGINEER.SPECIALTY THERAPIST Work Phone: [facility] 08-21-2022 15:21-0400 Respiratory rate 18 /min Alma Queden WINDOWS SECURITY ENGINEER.SPECIALTY THERAPIST Work Phone: [facility] 08-21-2022 15:21-0400 SaO2% (BldA) [Mass fraction] 95 % Alma Queden WINDOWS SECURITY ENGINEER.SPECIALTY THERAPIST Work Phone: [facility] 08-21-2022 15:21-0400 Systolic blood pressure 122 mm[Hg] Alma Queden WINDOWS SECURITY ENGINEER.SPECIALTY THERAPIST Work Phone: [facility] 07-05-2022 14:49-0500 Body height 182.9 cm Tammy Loaiza WINDOWS SECURITY ENGINEER.SPECIALTY THERAPIST Work Phone: [facility] 07-05-2022 14:49-0500 Body weight 125.65 kg Tammy Loaiza WINDOWS SECURITY ENGINEER.SPECIALTY THERAPIST Work Phone: [facility] 07-05-2022 14:49-0500 Diastolic blood pressure 77 mm[Hg] Tammy Loaiza WINDOWS SECURITY ENGINEER.SPECIALTY THERAPIST Work Phone: [facility] 07-05-2022 14:49-0500 Heart rate 53 /min Tammy Loaiza WINDOWS SECURITY ENGINEER.SPECIALTY THERAPIST Work Phone: [facility] 07-05-2022 14:49-0500 SaO2% (BldA) [Mass fraction] 94 % Tammy Loaiza WINDOWS SECURITY ENGINEER.SPECIALTY THERAPIST Work Phone: [facility] 07-05-2022 14:49-0500 Systolic blood pressure 134 mm[Hg] Tammy Loaiza WINDOWS SECURITY ENGINEER.SPECIALTY THERAPIST Work Phone: [facility] 06-04-2022 11:15-0500 Body height 182.9 cm Dedrick Krause DO Work Phone: [facility] 06-04-2022 11:15-0500 Body weight 128.82 kg Dedrick Krause DO Work Phone: [facility] 06-04-2022 11:15-0500 Diastolic blood pressure 68 mm[Hg] Dedrick Krause DO Work Phone: [facility] 06-04-2022 11:15-0500 Heart rate 63 /min Dedrick Krause DO Work Phone: [facility] 06-04-2022 11:15-0500 SaO2% (BldA) [Mass fraction] 96 % Dedrick Krause DO Work Phone: [facility] 06-04-2022 11:15-0500 Systolic blood pressure 126 mm[Hg] Dedrick Krause DO Work Phone: [facility] 02-19-2022 15:02-0400 Body temperature 97.7 [degF] Alma Gill WINDOWS SECURITY ENGINEER.SPECIALTY THERAPIST Work Phone: [facility] 02-19-2022 15:02-0400 Body weight 126.55 kg Alma Gill WINDOWS SECURITY ENGINEER.SPECIALTY THERAPIST Work Phone: [facility] 02-19-2022 15:02-0400 Diastolic blood pressure 78 mm[Hg] Alma Rodriguezden WINDOWS SECURITY ENGINEER.SPECIALTY THERAPIST Work Phone: [facility] 02-19-2022 15:02-0400 Heart rate 59 /min Alma Rodriguezden WINDOWS SECURITY ENGINEER.SPECIALTY THERAPIST Work Phone: [facility] 02-19-2022 15:02-0400 Respiratory rate 16 /min Alma Queden WINDOWS SECURITY ENGINEER.SPECIALTY THERAPIST Work Phone: [facility] 02-19-2022 15:02-0400 SaO2% (BldA) [Mass fraction] 94 % Alma Queden WINDOWS SECURITY ENGINEER.SPECIALTY THERAPIST Work Phone: [facility] 02-19-2022 15:02-0400 Systolic blood pressure 126 mm[Hg] Alma Queden WINDOWS SECURITY ENGINEER.SPECIALTY THERAPIST Work Phone: [facility] 02-08-2022 14:57-0400 Body temperature 98.29 [degF] Lama Queden WINDOWS SECURITY ENGINEER.SPECIALTY THERAPIST Work Phone: [facility] 02-08-2022 14:57-0400 Diastolic blood pressure 72 mm[Hg] Alma Queden WINDOWS SECURITY ENGINEER.SPECIALTY THERAPIST Work Phone: [facility] 02-08-2022 14:57-0400 Heart rate 68 /min Alma Queden WINDOWS SECURITY ENGINEER.SPECIALTY THERAPIST Work Phone: [facility] 02-08-2022 14:57-0400 Respiratory rate 16 /min Alma Queden WINDOWS SECURITY ENGINEER.SPECIALTY THERAPIST Work Phone: [facility] 02-08-2022 14:57-0400 SaO2% (BldA) [Mass fraction] 94 % Alma Queden WINDOWS SECURITY ENGINEER.SPECIALTY THERAPIST Work Phone: [facility] 02-08-2022 14:57-0400 Systolic blood pressure 128 mm[Hg] Alma Queden WINDOWS SECURITY ENGINEER.SPECIALTY THERAPIST Work Phone: [facility] 02-01-2022 08:55-0400 Body height 182.9 cm Alma Queden WINDOWS SECURITY ENGINEER.SPECIALTY THERAPIST Work Phone: [facility] 02-01-2022 08:55-0400 Body temperature 98.01 [degF] Alma Queden WINDOWS SECURITY ENGINEER.SPECIALTY THERAPIST Work Phone: [facility] 02-01-2022 08:55-0400 Body weight 126.1 kg Alma Queden WINDOWS SECURITY ENGINEER.SPECIALTY THERAPIST Work Phone: [facility] 02-01-2022 08:55-0400 Diastolic blood pressure 70 mm[Hg] Alma Queden WINDOWS SECURITY ENGINEER.SPECIALTY THERAPIST Work Phone: [facility] 02-01-2022 08:55-0400 Heart rate 62 /min Alma Queden WINDOWS SECURITY ENGINEER.SPECIALTY THERAPIST Work Phone: [facility] 02-01-2022 08:55-0400 Respiratory rate 18 /min Alma Queden WINDOWS SECURITY ENGINEER.SPECIALTY THERAPIST Work Phone: [facility] 02-01-2022 08:55-0400 SaO2% (BldA) [Mass fraction] 94 % Alma Queden WINDOWS SECURITY ENGINEER.SPECIALTY THERAPIST Work Phone: [facility] 02-01-2022 08:55-0400 Systolic blood pressure 126 mm[Hg] Alma Queden WINDOWS SECURITY ENGINEER.SPECIALTY THERAPIST Work Phone: [facility] 11-23-2021 11:28-0400 Body height 182.9 cm Alma Queden WINDOWS SECURITY ENGINEER.SPECIALTY THERAPIST Work Phone: [facility] 11-23-2021 11:28-0400 Body temperature 97.7 [degF] Alma Queden WINDOWS SECURITY ENGINEER.SPECIALTY THERAPIST Work Phone: [facility] 11-23-2021 11:28-0400 Body weight 123.02 kg Alma Queden WINDOWS SECURITY ENGINEER.SPECIALTY THERAPIST Work Phone: [facility] 11-23-2021 11:28-0400 Diastolic blood pressure 78 mm[Hg] Alma Queden WINDOWS SECURITY ENGINEER.SPECIALTY THERAPIST Work Phone: [facility] 11-23-2021 11:28-0400 Heart rate 65 /min Alma Queden WINDOWS SECURITY ENGINEER.SPECIALTY THERAPIST Work Phone: [facility] 11-23-2021 11:28-0400 Respiratory rate 16 /min Alma Queden WINDOWS SECURITY ENGINEER.SPECIALTY THERAPIST Work Phone: [facility] 11-23-2021 11:28-0400 SaO2% (BldA) [Mass fraction] 96 % Alma Queden WINDOWS SECURITY ENGINEER.SPECIALTY THERAPIST Work Phone: [facility] 11-23-2021 11:28-0400 Systolic blood pressure 126 mm[Hg] Alma Queden WINDOWS SECURITY ENGINEER.SPECIALTY THERAPIST Work Phone: [facility] 10-26-2021 10:12-0400 Diastolic blood pressure 70 mm[Hg] Nurse Nigel Work Phone: [facility] 10-26-2021 10:12-0400 Systolic blood pressure 118 mm[Hg] Nurse Nigel Work Phone: [facility] Encounters Encounter Date Encounter Type Care Provider Facility Start: 03-15-2025 End: 03-15-2025 ambulatory FRANCESCO TOBIAS Facility:[facility] Start: 02-17-2025 End: 02-17-2025 ambulatory TRU SIMON Facility:[facility] Start: 02-11-2025 End: 02-11-2025 ambulatory ALMA RODRIGUEZDEN Facility:[facility] Start: 01-25-2025 End: 01-25-2025 Telephone encounter Alma A Queden WINDOWS SECURITY ENGINEER.SPECIALTY THERAPIST Work Phone: [facility] Comment on above: Electronic Communica tion Start: 01-19-2025 End: 01-19-2025 Telephone encounter Alma A Queden WINDOWS SECURITY ENGINEER.SPECIALTY THERAPIST Work Phone: [facility] Comment on above: Consult Start: 01-10-2025 End: 01-12-2025 Refill Alma A Queden WINDOWS SECURITY ENGINEER.SPECIALTY THERAPIST Work Phone: [facility] Comment on above: Refill Request Start: 01-04-2025 End: 01-07-2025 ambulatory Alma A Queden WINDOWS SECURITY ENGINEER.SPECIALTY THERAPIST Work Phone: [facility] Comment on above: [facility] nurse Start: 12-29-2024 End: 12-30-2024 ambulatory Tru Simon MD Work Phone: Pulmonary Medicine Comment on above: Budesonide 0.5 Mg/2 Ml Susp $208.84 Start: 12-19-2024 End: 12-21-2024 Refill Alma Gill WINDOWS SECURITY ENGINEER.SPECIALTY THERAPIST Work Phone: [facility] Comment on above: Refill Request Start: 12-07-2024 End: 12-07-2024 Patient encounter procedure Francesco Tobias Work Phone: Podiatry Comment on above: Onychomycosis (Prima ry Dx); 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); Left foot pain Start: 12-07-2024 End: 12-07-2024 ambulatory FRANCESCO TOBIAS Facility:[facility] Start: 12-03-2024 End: 12-03-2024 ambulatory Tru Simon MD Work Phone: Pulmonary Medicine Comment on above: Flutter valve Start: 12-01-2024 End: 12-01-2024 Telephone encounter Alma Gill WINDOWS SECURITY ENGINEER.SPECIALTY THERAPIST Work Phone: [facility] Comment on above: Electronic Communica tion Start: 11-26-2024 End: 11-26-2024 Telephone encounter Alma Gill WINDOWS SECURITY ENGINEER.SPECIALTY THERAPIST Work Phone: [facility] Comment on above: Electronic Communica tion Start: 11-23-2024 End: 11-23-2024 ambulatory Lilian Sethi RN Work Phone: [employer] Start: 11-23-2024 End: 11-23-2024 Home visit Lilian Sethi RN Work Phone: [employer] Comment on above: Transition Of Care ( TCM f/u) Start: 11-20-2024 End: 01-20-2025 Follow-up encounter Alma Gill WINDOWS SECURITY ENGINEER.SPECIALTY THERAPIST Work Phone: [facility] Start: 11-15-2024 End: 11-16-2024 Refill Alma Gill WINDOWS SECURITY ENGINEER.SPECIALTY THERAPIST Work Phone: [facility] Comment on above: Refill Request Start: 11-11-2024 End: 11-11-2024 Office outpatient visit 40 minutes Tru Simon MD Work Phone: Pulmonary Medicine Comment on above: Interstitial pulmona ry disease (HCC) (Primary Dx); Bronchiectasis without acute exacerbation (HCC); Hypersensitivity pneumonitis (HCC); Chronic respiratory failure with hypoxia (HCC); 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); 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 Start: 11-11-2024 End: 11-11-2024 Patient encounter procedure Pulm [facility] Sera Hoyt Work Phone: Pulmonary Medicine Start: 11-11-2024 End: 11-23-2024 ambulatory Alma Gill APRN.SPECIALTY THERAPIST Work Phone: Pulmonary Medicine Comment on above: Spirometry Bactrim Start: 11-10-2024 End: 11-10-2024 ambulatory ALMA GILL Facility:[facility] Start: 11-10-2024 End: 11-10-2024 Patient encounter procedure Alma Gill WINDOWS SECURITY ENGINEER.SPECIALTY THERAPIST Work Phone: [facility] Comment on above: Acute on chronic hyp oxic respiratory failure (HCC) (Primary Dx); Sepsis due to pneumonia (HCC); ILD (interstitial lung disease) (HCC); Dependence on supplemental oxygen; SOB (shortness of breath) on exertion; Essential tremor; Hyponatremia; Essential hypertension; Chronic GERD; Impaired ambulation; Requires assistance with activities of daily living (ADL) Start: 11-09-2024 End: 11-10-2024 Telephone encounter Alma Gill APRN.SPECIALTY THERAPIST Work Phone: [facility] Comment on above: Electronic Communica tion; Forms Patient Update Start: 11-02-2024 End: 11-04-2024 Telephone encounter Alma Gill APRN.SPECIALTY THERAPIST Work Phone: [facility] Comment on above: Electronic Communica tion; 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 Start: 10-29-2024 End: 10-29-2024 Telephone encounter Alma Gill APRN.SPECIALTY THERAPIST Work Phone: [facility] Comment on above: Electronic Communica tion; Forms Start: 10-29-2024 End: 10-29-2024 Patient encounter procedure Tru Lucas PA-C Work Phone: Pulmonary Medicine Comment on above: Hospital discharge f ollow-up (Primary Dx); ILD (interstitial lung disease) (HCC); 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; Chronic hypoxemic respiratory failure (HCC); Former smoker Start: 10-29-2024 End: 10-29-2024 ambulatory TRU LUCAS Facility:[facility] Start: 10-26-2024 End: 10-26-2024 Refill Alma Gill APRN.SPECIALTY THERAPIST Work Phone: [facility] Comment on above: Refill Request Start: 10-21-2024 End: 10-21-2024 Patient encounter procedure Bear Hidalgo PA-C Work Phone: [facility] Comment on above: Closed boxer's fract ure with routine healing, subsequent encounter (Primary Dx) Start: 10-21-2024 End: 10-21-2024 ambulatory AMLA GILL Facility:[facility] Start: 10-19-2024 End: 10-19-2024 ambulatory Lilian Sethi RN 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: 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 [employer] Start: 10-19-2024 End: 10-19-2024 Home visit Lilian Sethi RN Work Phone: [employer] Comment on above: Transition Of Care ( [facility] [place] D/C 10/16/24) Initial phone contact for Transitional Care Management Start: 10-14-2024 End: 10-14-2024 Refill Tru Simon MD Work Phone: Pulmonary Medicine Comment on above: Med Change Request Start: 10-13-2024 End: 10-13-2024 Telephone encounter Sandra Hummel MD Work Phone: [facility] Comment on above: Question ( fernando zuniga to see if cast can be taken of by [facility]) Start: 10-12-2024 End: 10-16-2024 Evaluation and management of inpatient TRU PRESCOTT Facility:[facility] Start: 10-12-2024 End: 10-12-2024 Emergency department patient visit ASH OBRIEN Facility:[facility] Start: 10-12-2024 End: 10-12-2024 Telephone encounter Tru Prescott MD Work Phone: [place] Provider Adult Comment on above: Hospital To Hospital Start: 10-08-2024 End: 10-08-2024 Telephone encounter Alma A Queden WINDOWS SECURITY ENGINEER.SPECIALTY THERAPIST Work Phone: [facility] Comment on above: Electronic Communica tion; Forms Start: 10-05-2024 End: 10-06-2024 Refill Alma A Queden WINDOWS SECURITY ENGINEER.SPECIALTY THERAPIST Work Phone: [facility] Comment on above: Refill Request Start: 09-30-2024 End: 11-30-2024 Follow-up encounter Tru Simon MD Work Phone: [facility] Start: 09-28-2024 End: 09-28-2024 Telephone encounter Alma A Queden WINDOWS SECURITY ENGINEER.SPECIALTY THERAPIST Work Phone: [facility] Comment on above: Electronic Communica tion Start: 09-25-2024 End: 11-25-2024 Follow-up encounter Alma A Queden WINDOWS SECURITY ENGINEER.SPECIALTY THERAPIST Work Phone: [facility] Start: 09-24-2024 End: 09-24-2024 ambulatory ALMA A QUEDEN Facility:[facility] Start: 09-23-2024 End: 09-23-2024 Patient encounter procedure Sandra Hummel MD Work Phone: [facility] Comment on above: Closed boxer's fract ure, initial encounter (Primary Dx) Start: 09-23-2024 End: 09-23-2024 ambulatory ALMA A QUEDEN Facility[facility] Start: 09-22-2024 End: 09-22-2024 Telephone encounter Alma A Queden WINDOWS SECURITY ENGINEER.SPECIALTY THERAPIST Work Phone: [facility] Comment on above: Electronic Communica tion; Forms Start: 09-21-2024 End: 11-21-2024 Follow-up encounter Alma A Wicho CROSS.EVANS Work Phone: [facility] Comment on above: Results Start: 09-21-2024 End: 09-21-2024 Subsequent hospital visit by physician [facility] Comment on above: Hand injury, right, initial encounter [S69.91XA] Start: 09-21-2024 End: 09-21-2024 ambulatory ALMA GILL Facility:[facility] Start: 09-21-2024 End: 09-21-2024 Office outpatient visit 40 minutes Tru Simon [...] Start: 09-21-2024 End: 09-21-2024 ambulatory TRU SIMON Facility:[facility] Start: 09-20-2024 End: 09-21-2024 ambulatory Alma Tiffani Wicho WINDOWS SECURITY ENGINEER.EVANS Work Phone: [facility] Comment on above: Fall Start: 09-18-2024 End: 09-18-2024 Telephone encounter Alma A Wicho WINDOWS SECURITY ENGINEER.SPECIALTY THERAPIST Work Phone: [facility] Comment on above: Electronic Communica tion; Forms Start: 09-17-2024 End: 09-17-2024 Telephone encounter Alma A iWcho WINDOWS SECURITY ENGINEER.SPECIALTY THERAPIST Work Phone: [facility] Comment on above: Electronic Communica tion; Forms VERBAL ORDERS Start: 09-12-2024 End: 09-15-2024 Refill Tru Simon MD Work Phone: Pulmonary Medicine Comment on above: Med Change Request Start: 09-10-2024 End: 09-10-2024 ambulatory Alma Gill WINDOWS SECURITY ENGINEER.SPECIALTY THERAPIST Work Phone: [facility] Comment on above: Glucose reading Start: 09-10-2024 End: 11-10-2024 Follow-up encounter Alma Gill WINDOWS SECURITY ENGINEER.SPECIALTY THERAPIST Work Phone: [facility] Start: 09-10-2024 End: 09-10-2024 Telephone encounter Alma Tiffani Wicho WINDOWS SECURITY ENGINEER.SPECIALTY THERAPIST Work Phone: [facility] Comment on above: Critical Results Start: 08-28-2024 End: 08-28-2024 Patient encounter procedure Francesco Tobias Work Phone: Podiatry Comment on above: Onychomycosis (Prima ry Dx); 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); Hallux valgus of left foot Start: 08-28-2024 End: 08-28-2024 ambulatory FRANCESCO JENNY Facility:[facility] Start: 08-27-2024 End: 10-27-2024 Follow-up encounter Beatrice Sarmiento MD Work Phone: [facility] [place] Start: 08-26-2024 End: 10-26-2024 Follow-up encounter Alma Gill WINDOWS SECURITY ENGINEER.SPECIALTY THERAPIST Work Phone: [facility] Comment on above: Results Start: 08-26-2024 ambulatory MITCHELL Cortez ity:[facility] Start: 08-26-2024 End: 08-26-2024 Subsequent hospital visit by physician Card/Pulm Lab [facility] CARDIO PULMONARY TESTING Comment on above: Pulmonary arterial h ypertension ([facility]) [I27.21] Start: 08-20-2024 End: 08-21-2024 Follow-up encounter Alma Gill WINDOWS SECURITY ENGINEER.SPECIALTY THERAPIST Work Phone: [facility] Comment on above: Results Start: 08-17-2024 End: 08-17-2024 ambulatory BEATRICE SARMIENTO Facility:[facility] Start: 08-17-2024 End: 08-17-2024 Patient encounter procedure Beatrice Sarmiento MD Work Phone: Cardiology Comment on above: 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); Chronic diastolic congestive heart failure (HCC); Essential hypertension; Mixed hyperlipidemia; Peripheral vascular disease; Bilateral carotid artery stenosis Start: 08-15-2024 End: 08-17-2024 Refill Tru Simon MD Work Phone: Pulmonary Medicine Comment on above: Refill Request Start: 08-10-2024 End: 08-11-2024 Refill Alma Gill WINDOWS SECURITY ENGINEER.SPECIALTY THERAPIST Work Phone: [facility] Comment on above: Refill Request Start: 08-05-2024 End: 08-05-2024 Telephone encounter Alma Gill WINDOWS SECURITY ENGINEER.SPECIALTY THERAPIST Work Phone: [facility] Comment on above: Electronic Communica tion Start: 07-31-2024 End: 07-31-2024 Telephone encounter Tru Simon MD Work Phone: Pulmonary Medicine Comment on above: [facility] Start: 07-27-2024 End: 07-28-2024 ambulatory Tru Simon MD Work Phone: Pulmonary Medicine Comment on above: Wheezing and crackli ng Start: 07-22-2024 End: 07-22-2024 Telephone encounter Alma Gill WINDOWS SECURITY ENGINEER.SPECIALTY THERAPIST Work Phone: [facility] Comment on above: Oxygen Start: 07-20-2024 End: 07-20-2024 ambulatory Alma Gill COMPLEX MANAGER-C Work Phone: [facility] Work Phone: Start: 07-20-2024 End: 07-20-2024 Patient encounter procedure Alma Gill COMPLEX MANAGER-C -Laboratory, Specimen Work Phone: Start: 07-20-2024 End: 09-19-2024 Follow-up encounter Tru Simon MD Work Phone: PROVIDER CRITICAL CARE Start: 07-20-2024 End: 07-21-2024 Telephone encounter Alma Gill APRN.SPECIALTY THERAPIST Work Phone: [facility] Comment on above: Electronic Communica tion; Forms Refill Request Start: 07-20-2024 End: 07-20-2024 ambulatory Alma Gill COMPLEX MANAGER Facility:[facility] Start: 07-16-2024 ambulatory ALMA A WICHO Facili ty:[facility] Start: 07-16-2024 End: 07-16-2024 Subsequent hospital visit by physician [facility] Work Phone: [facility] Comment on above: Interstitial pulmona ry disease (HCC) [J84.9] Start: 07-14-2024 End: 07-14-2024 Patient encounter procedure Alma Gill WINDOWS SECURITY ENGINEER.SPECIALTY THERAPIST Work Phone: [facility] Comment on above: ILD (interstitial destiny ng disease) (HCC) (Primary Dx); Acute on chronic hypoxic respiratory failure (HCC); Dependence on supplemental oxygen; SOB (shortness of breath) on exertion; Wheezing; Neuropathy; Anxiety and depression; Itching Start: 07-14-2024 End: 07-14-2024 ambulatory ALMA A WICHO Facility[facility] Start: 07-11-2024 End: 07-13-2024 ambulatory Tru Simon MD Work Phone: Pulmonary Medicine Comment on above: [employer] Start: 07-07-2024 End: 07-15-2024 Telephone encounter Alexys Machado MD Work Phone: Pulmonary Medicine Comment on above: Orders Start: 07-06-2024 End: 07-06-2024 Telephone encounter Alma Gill APRN.SPECIALTY THERAPIST Work Phone: [facility] Comment on above: Forms Medication Authoriza tion Start: 07-03-2024 End: 07-03-2024 Telephone encounter Alma Gill APRN.SPECIALTY THERAPIST Work Phone: [facility] Comment on above: Electronic Communica tion; Forms Start: 06-24-2024 End: 06-24-2024 ambulatory TRU SIMON Facility:[facility] Start: 06-24-2024 End: 06-24-2024 Office outpatient visit 40 minutes Tru Simon MD Work Phone: Pulmonary Medicine Comment on above: Hypersensitivity pne umonitis (HCC) (Primary Dx); Chronic respiratory failure with hypoxia (HCC); 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); Acute hypoxic respiratory failure (HCC); Chronic obstructive pulmonary disease with acute exacerbation (HCC) Start: 06-22-2024 End: 06-23-2024 Refill Alma Gill WINDOWS SECURITY ENGINEER.SPECIALTY THERAPIST Work Phone: [facility] Comment on above: Refill Request Start: 06-19-2024 End: 06-23-2024 ambulatory Alma Gill WINDOWS SECURITY ENGINEER.SPECIALTY THERAPIST Work Phone: [facility] Comment on above: Missing medication f rom list Refill Request Start: 06-15-2024 End: 06-15-2024 Telephone encounter Tru Simon MD Work Phone: [facility] Comment on above: Orders (Do you want this nocturnal pulse oximetry done on O2 or room air?) Start: 06-09-2024 End: 06-09-2024 Telephone encounter Alma Gill WINDOWS SECURITY ENGINEER.SPECIALTY THERAPIST Work Phone: [facility] Comment on above: Electronic Communica tion; Forms Start: 06-06-2024 End: 06-08-2024 ambulatory Francisco Patel MD Work Phone: Pulmonary Medicine Comment on above: John has yellow muc us Start: 05-28-2024 End: 05-28-2024 Telephone encounter Alma Gill WINDOWS SECURITY ENGINEER.SPECIALTY THERAPIST Work Phone: [facility] Comment on above: Electronic Communica tion; Forms Start: 05-26-2024 End: 05-26-2024 Telephone encounter Alma Gill WINDOWS SECURITY ENGINEER.SPECIALTY THERAPIST Work Phone: [facility] Comment on above: Electronic Communica tion Start: 05-25-2024 End: 05-25-2024 Refill Alma Tiffani Queden WINDOWS SECURITY ENGINEER.SPECIALTY THERAPIST Work Phone: [facility] Comment on above: Refill Request Prednisone Start: 05-22-2024 End: 05-22-2024 Telephone encounter Almaangelita Rodriguezden WINDOWS SECURITY ENGINEER.SPECIALTY THERAPIST Work Phone: [facility] Comment on above: Electronic Communica tion; Forms Start: 05-19-2024 End: 05-19-2024 Telephone encounter Tru Simon MD Work Phone: Pulmonary Medicine Comment on above: patient assistance Start: 05-17-2024 End: 05-18-2024 Refill Alma A Queden WINDOWS SECURITY ENGINEER.SPECIALTY THERAPIST Work Phone: [facility] Comment on above: Refill Request Start: 04-28-2024 End: 04-29-2024 ambulatory Alma Tiffani Rodriguezden WINDOWS SECURITY ENGINEER.SPECIALTY THERAPIST Work Phone: [facility] Comment on above: John's Medications Start: 04-27-2024 End: 04-27-2024 [facility] encounter [facility] Comment on above: Medication Authoriza tion Start: 04-27-2024 End: 04-27-2024 ambulatory Pulm Lab [facility] Work Phone: [facility] Comment on above: Spirometry Start: 04-27-2024 End: 04-27-2024 Patient encounter procedure [facility] Work Phone: PULM LAB [facility] Start: 04-25-2024 End: 04-27-2024 Refill Alma Tiffani Queden WINDOWS SECURITY ENGINEER.SPECIALTY THERAPIST Work Phone: [facility] Comment on above: Refill Request Start: 04-23-2024 End: 04-24-2024 ambulatory Mitchell Caruso WINDOWS SECURITY ENGINEER.SPECIALTY THERAPIST Work Phone: Pulmonary Medicine Comment on above: John's Echo Prednisone Start: 04-22-2024 End: 04-22-2024 ambulatory TRU SIMON Facility:[facility] Start: 04-22-2024 End: 04-22-2024 Office outpatient visit 40 minutes Tru Simon MD Work Phone: Pulmonary Medicine Comment on above: Combined pulmonary f ibrosis and emphysema (CPFE) (HCC) (Primary Dx); Chronic respiratory failure with hypoxia (HCC); Hypersensitivity pneumonitis (HCC); Gastroesophageal reflux disease, unspecified whether esophagitis present Start: 04-19-2024 End: 04-20-2024 ambulatory Mitchell Caruso APRN.SPECIALTY THERAPIST Work Phone: Pulmonary Medicine Comment on above: John is congested Refill Request Start: 04-16-2024 End: 04-16-2024 ambulatory Qi Zazueta RN Work Phone: [employer] Start: 04-16-2024 End: 04-16-2024 Home visit Qi Zazueta RN Work Phone: [employer] Comment on above: Transition Of Care ( TCM follow up call ) Start: 04-16-2024 End: 04-16-2024 Telephone encounter Alma Gill WINDOWS SECURITY ENGINEER.SPECIALTY THERAPIST Work Phone: [facility] Comment on above: Electronic Communica tion (ORDER: [id number]); Forms Start: 04-14-2024 End: 04-14-2024 Refill Alma Tiffani Gill WINDOWS SECURITY ENGINEER.SPECIALTY THERAPIST Work Phone: [facility] Comment on above: Refill Request Start: 04-13-2024 End: 04-13-2024 Telephone encounter Alma Gill WINDOWS SECURITY ENGINEER.SPECIALTY THERAPIST Work Phone: [facility] Comment on above: Patient Update (Exte nd PT orders ) Start: 04-02-2024 End: 04-02-2024 Telephone encounter Mitchell Caruso APRN.SPECIALTY THERAPIST Work Phone: Pulmonary Medicine Comment on above: Insurance Authorizat ion (OFEV) Start: 04-01-2024 End: 04-01-2024 ambulatory Qi Zazueta RN Work Phone: [employer] Start: 04-01-2024 End: 04-01-2024 Home visit Qi Zazueta RN Work Phone: [employer] Comment on above: Transition Of Care ( TCM follow up call ) Start: 03-30-2024 End: 04-03-2024 Refill Alma Gill WINDOWS SECURITY ENGINEER.SPECIALTY THERAPIST Work Phone: [facility] Comment on above: Refill Request Medications ILD (interstitial destiny ng disease) (HCC) (Primary Dx); Dependence on supplemental oxygen; Chronic diastolic congestive heart failure (HCC); Hyponatremia; Encounter for immunization Start: 03-27-2024 End: 03-27-2024 ambulatory MITCHELL CARUSO Facility:[facility] Start: 03-27-2024 End: 03-27-2024 Office outpatient visit 40 minutes Mitchell Caruso APRN.SPECIALTY THERAPIST Work Phone: Pulmonary Medicine Comment on above: Idiopathic pulmonary fibrosis (HCC) (Primary Dx); Chronic hypoxemic respiratory failure (HCC); Pulmonary arterial hypertension (HCC) Start: 03-21-2024 End: 03-23-2024 Refill Alma Gill WINDOWS SECURITY ENGINEER.SPECIALTY THERAPIST Work Phone: [facility] Comment on above: Refill Request Start: 03-20-2024 End: 03-20-2024 ambulatory Qi Zazueta RN Work Phone: [employer] Start: 03-20-2024 End: 03-20-2024 Home visit Qi Zazueta RN Work Phone: [employer] Comment on above: Transition Of Care ( TCM follow up call ) Start: 03-20-2024 End: 03-20-2024 Telephone encounter Alma Gill WINDOWS SECURITY ENGINEER.SPECIALTY THERAPIST Work Phone: [facility] Comment on above: Electronic Communica tion; Orders (Order: [id number]) Start: 03-19-2024 End: 03-19-2024 Telephone encounter Alma Gill WINDOWS SECURITY ENGINEER.SPECIALTY THERAPIST Work Phone: [facility] Comment on above: Electronic Communica tion; Forms Start: 03-17-2024 End: 03-17-2024 Telephone encounter Alma Gill APRN.CNP Work Phone: [facility] Comment on above: Patient Update Start: 03-13-2024 End: 03-13-2024 Office outpatient visit 40 minutes Mitchell Caruso APRN.CNP Work Phone: Pulmonary Medicine Comment on above: ILD (interstitial destiny ng disease) (HCC) (Primary Dx); Idiopathic pulmonary fibrosis (HCC); Chronic hypoxemic respiratory failure (HCC); COPD, mild (HCC) Start: 03-13-2024 End: 03-13-2024 ambulatory Pul[facility] Work Phone: [facility] Comment on above: Spirometry Start: 03-13-2024 End: 03-13-2024 Patient encounter procedure Pulm Lab [facility] Work Phone: PULM LAB [facility] Start: 03-09-2024 End: 03-09-2024 ambulatory ALMA GILL Facility[facility] Start: 03-09-2024 End: 03-09-2024 Subsequent hospital visit by physician [facility] Work Phone: RADIO [facility] SC[facility] Comment on above: Interstitial pulmona ry disease (HCC) [J84.9] Start: 03-09-2024 End: 03-10-2024 Telephone encounter Alma Gill APRN.CNP Work Phone: [facility] Comment on above: Results Refill Request Start: 03-02-2024 End: 03-02-2024 Patient encounter procedure Alma Gill APRN.SPECIALTY THERAPIST Work Phone: [facility] Comment on above: Acute respiratory fa ilure with hypoxia (HCC) (Primary Dx); Chronic diastolic congestive heart failure (HCC); Anxiety and depression; Dependence on supplemental oxygen; Hyponatremia Start: 03-01-2024 End: 03-02-2024 Refill Alma Gill APRN.CNP Work Phone: [facility] Comment on above: Med Change Request Start: 02-28-2024 End: 02-28-2024 Telephone encounter Alma Gill WINDOWS SECURITY ENGINEER.SPECIALTY THERAPIST Work Phone: [facility] Comment on above: Forms Start: 02-27-2024 End: 02-27-2024 Patient encounter procedure Francesco Tobias Work Phone: Podiatry Comment on above: Onychomycosis (Prima ry Dx); 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) Start: 02-25-2024 End: 02-25-2024 Refill Alma Gill WINDOWS SECURITY ENGINEER.SPECIALTY THERAPIST Work Phone: [facility] Comment on above: Refill Request Start: 02-21-2024 End: 02-21-2024 Patient encounter procedure [facility] Provider [facility] Department Start: 02-21-2024 End: 02-21-2024 Telephone encounter Alma Gill WINDOWS SECURITY ENGINEER.SPECIALTY THERAPIST Work Phone: [facility] Comment on above: Verbal orders (Updat e in home PT plan of care) Start: 02-18-2024 End: 02-18-2024 ambulatory Lilian Sethi RN Work Phone: [employer] Start: 02-18-2024 End: 02-18-2024 Home visit Lilian Sethi RN Work Phone: [employer] Comment on above: Transition Of Care ( TCM f/u) Start: 02-18-2024 End: 02-18-2024 Telephone encounter Alma Gill WINDOWS SECURITY ENGINEER.SPECIALTY THERAPIST Work Phone: [facility] Comment on above: Electronic Communica tion; Forms Start: 02-11-2024 End: 02-11-2024 Telephone encounter Alma Gill WINDOWS SECURITY ENGINEER.SPECIALTY THERAPIST Work Phone: [facility] Comment on above: Orders Start: 02-11-2024 End: 02-11-2024 ambulatory Beatrice Sarmiento Facility:[facility] Start: 02-05-2024 End: 02-05-2024 Telephone encounter Alma Gill WINDOWS SECURITY ENGINEER.SPECIALTY THERAPIST Work Phone: [facility] Comment on above: Medication Problem Refill Request Start: 02-04-2024 End: 02-04-2024 ambulatory Qi Zazueta RN Work Phone: AG [employer] Start: 02-04-2024 End: 02-04-2024 Telephone follow-up Qi Zzaueta RN Work Phone: [employer] Comment on above: Transition Of Care ( TCM follow up call ) Weekly phone contact (Recurring) for Transitional Care Management Start: 02-03-2024 End: 02-03-2024 Patient encounter procedure Beatrice Sarmiento MD Work Phone: Cardiology Comment on above: 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) (Primary [...] 01-27-2024 End: 01-27-2024 Telephone encounter Alma Gill WINDOWS SECURITY ENGINEER.SPECIALTY THERAPIST Work Phone: [facility] Comment on above: Patient Update Start: 01-24-2024 End: 01-24-2024 Telephone encounter Alma Gill WINDOWS SECURITY ENGINEER.SPECIALTY THERAPIST Work Phone: [facility] Comment on above: HOME PT Start: 01-23-2024 End: 01-23-2024 Telephone encounter Alma Gill WINDOWS SECURITY ENGINEER.SPECIALTY THERAPIST Work Phone: [facility] Comment on above: Patient Update; VERB AL ORDERS Start: 01-21-2024 End: 01-21-2024 ambulatory Qi Zazueta RN Work Phone: [employer] Start: 01-21-2024 End: 01-21-2024 Telephone follow-up Qi Zazueta RN Work Phone: [employer] Comment on above: Transition Of Care ( TCM follow up call ) Weekly phone contact (Recurring) for Transitional Care Management Start: 01-20-2024 End: 01-20-2024 Telephone encounter Alma A Queden WINDOWS SECURITY ENGINEER.SPECIALTY THERAPIST Work Phone: [facility] Comment on above: Orders ([facility] orders ) Start: 01-17-2024 End: 01-17-2024 ambulatory Qi Zazueta RN Work Phone: AG [employer] Start: 01-17-2024 End: 01-17-2024 Home visit Qi Zazueta RN Work Phone: [employer] Comment on above: Transition Of Care ( [facility] 01/10-01/16/24 TCM) Initial phone contact for Transitional Care Management Start: 01-14-2024 End: 01-14-2024 Telephone encounter Alma A Queden WINDOWS SECURITY ENGINEER.SPECIALTY THERAPIST Work Phone: [facility] Comment on above: Verbal Order Start: 01-02-2024 End: 01-03-2024 Refill Alma A Queden WINDOWS SECURITY ENGINEER.SPECIALTY THERAPIST Work Phone: [facility] Comment on above: Refill Request Start: 12-25-2023 Telephone encounter Alma A Queden WINDOWS SECURITY ENGINEER.SPECIALTY THERAPIST Work Phone: [facility] Comment on above: Patient Question Start: 12-20-2023 Refill Alma A Qued en WINDOWS SECURITY ENGINEER.SPECIALTY THERAPIST Work Phone: [facility] Comment on above: Refill Request Start: 12-12-2023 Refill Alma A Qued en WINDOWS SECURITY ENGINEER.SPECIALTY THERAPIST Work Phone: [facility] Comment on above: Refill Request Start: 11-29-2023 ambulatory MONE Hernandez :[facility] Start: 11-29-2023 End: 11-29-2023 Subsequent hospital visit by physician Rosemary Russell MD Work Phone: [facility] Endoscopy Comment on above: Screening for colon cancer [Z12.11] Start: 11-28-2023 Patient encounter procedure [facility] Provider [facility] Department Start: 11-21-2023 ambulatory Mone Quiles raya PA-C Work Phone: [facility] [place] Comment on above: John's colonoscopy Refill Request Start: 11-21-2023 End: 11-21-2023 Subsequent hospital visit by physician Xr [facility] Buddy Anton Work Phone: Radiology Comment on above: Ulcer of toe of left foot, limited to breakdown of skin (HCC) [L97.521] Start: 11-21-2023 End: 11-21-2023 Patient encounter procedure Francesco Tobias Work Phone: Podiatry Comment on above: Ulcer of toe of left foot, limited to breakdown of skin (HCC) (Primary Dx); Onychomycosis; 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) Start: 11-20-2023 ambulatory Beatrice allan MD Work Phone: Cardiology Comment on above: John's Colonoscopy Start: 11-20-2023 Refill Alma Rodriguezd en WINDOWS SECURITY ENGINEER.SPECIALTY THERAPIST Work Phone: [facility] Comment on above: Refill Request Start: 11-04-2023 Telephone encounter Rosemary Napier MD Work Phone: General Surgery Start: 11-02-2023 Refill Nicolasa Yanez farida DO Work Phone: [facility] Comment on above: Refill Request Start: 10-31-2023 Refill Alma A Jasond en WINDOWS SECURITY ENGINEER.SPECIALTY THERAPIST Work Phone: [facility] Comment on above: Refill Request Start: 10-31-2023 Telephone encounter Alma Gill WINDOWS SECURITY ENGINEER.SPECIALTY THERAPIST Work Phone: [facility] Comment on above: Results Start: 10-28-2023 Telephone encounter Mine Brady WINDOWS SECURITY ENGINEER.SPECIALTY THERAPIST Work Phone: [facility] [place] [facility] Comment on above: Results Start: 10-21-2023 Refill Alma A Qued en WINDOWS SECURITY ENGINEER.SPECIALTY THERAPIST Work Phone: [facility] Comment on above: Refill Request Start: 10-16-2023 Refill Alma A Qued en WINDOWS SECURITY ENGINEER.SPECIALTY THERAPIST Work Phone: [facility] Comment on above: Refill Request Start: 10-15-2023 End: 10-15-2023 Patient encounter procedure Katelynn Knowles DO Work Phone: Vascular Surgery Comment on above: Peripheral arterial disease (HCC) (Primary Dx) Start: 10-01-2023 Telephone encounter David sher MD Work Phone: Urology Comment on above: Appointment Start: 09-25-2023 Refill Alma A Qued en WINDOWS SECURITY ENGINEER.SPECIALTY THERAPIST Work Phone: [facility] Comment on above: Med Change Request Start: 09-19-2023 Refill Nicolasa iqbal DO Work Phone: [facility] Comment on above: Refill Request Start: 09-12-2023 ambulatory Alma A Qued en WINDOWS SECURITY ENGINEER.SPECIALTY THERAPIST Work Phone: [facility] Comment on above: [facility] Start: 09-09-2023 ambulatory Alma A Qued en WINDOWS SECURITY ENGINEER.SPECIALTY THERAPIST Work Phone: [facility] Comment on above: Stool sample Start: 09-09-2023 Refill Alma A Qued en WINDOWS SECURITY ENGINEER.SPECIALTY THERAPIST Work Phone: [facility] Comment on above: Med Change Request Start: 09-09-2023 Telephone encounter Francisco Patel MD Work Phone: Pulmonary Medicine Comment on above: Orders (EPIC down so could not put in orders) Start: 09-09-2023 End: 09-09-2023 Patient encounter procedure Francisco Patel MD Work Phone: Pulmonary Medicine Comment on above: ILD (interstitial destiny ng disease) (HCC) (Primary Dx); Lung nodule; COPD, mild (HCC); Class 2 obesity; Lung nodules; 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) Start: 09-03-2023 ambulatory No Pcp WINDOWS SECURITY ENGINEER [facility] [place] Start: 09-03-2023 End: 09-03-2023 Patient encounter procedure No Pcp WINDOWS SECURITY ENGINEER [facility] [place] Comment on above: Diarrhea, unspecifie d type (Primary Dx); Bilateral impacted cerumen; Need for shingles vaccine Start: 08-30-2023 ambulatory No Pcp WINDOWS SECURITY ENGINEER [facility] [place] Start: 08-29-2023 End: 08-29-2023 Patient encounter procedure Katelynn Knowles DO Work Phone: Vascular Surgery Comment on above: Peripheral arterial disease (HCC) (Primary Dx); Onychomycosis Start: 08-26-2023 Telephone encounter Alma A Queden WINDOWS SECURITY ENGINEER.SPECIALTY THERAPIST Work Phone: [facility] Comment on above: Orders Start: 08-23-2023 Refill Alma A Qued en WINDOWS SECURITY ENGINEER.SPECIALTY THERAPIST Work Phone: [facility] Comment on above: Refill Request Start: 08-20-2023 Refill Alma A Qued en WINDOWS SECURITY ENGINEER.SPECIALTY THERAPIST Work Phone: [facility] Comment on above: Med Change Request Start: 08-18-2023 Refill Alma A Qued en WINDOWS SECURITY ENGINEER.SPECIALTY THERAPIST Work Phone: [facility] Comment on above: Refill Request Start: 08-15-2023 Refill Alma A Qued en WINDOWS SECURITY ENGINEER.SPECIALTY THERAPIST Work Phone: [facility] Comment on above: Refill Request Start: 08-05-2023 ambulatory Alma A Qued en WINDOWS SECURITY ENGINEER.SPECIALTY THERAPIST Work Phone: [facility] Comment on above: Medication not on li st on MyChart Refill Request Start: 07-25-2023 Refill Alma A Qued en WINDOWS SECURITY ENGINEER.SPECIALTY THERAPIST Work Phone: [facility] Comment on above: Refill Request Start: 07-22-2023 End: 07-22-2023 Patient encounter procedure Beatrice Sarmiento MD Work Phone: Cardiology Comment on above: 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); Chronic diastolic congestive heart failure (HCC); Essential hypertension; Mixed hyperlipidemia; Peripheral vascular disease (HCC); SOB (shortness of breath); Bilateral carotid artery stenosis Start: 07-18-2023 Refill Alma A Qued en WINDOWS SECURITY ENGINEER.SPECIALTY THERAPIST Work Phone: [facility] Comment on above: Refill Request Start: 06-26-2023 ambulatory Mone dos santos PA-C [facility] Comment on above: John's colonoscopy Start: 06-25-2023 ambulatory Alma A Qued en WINDOWS SECURITY ENGINEER.SPECIALTY THERAPIST Work Phone: [facility] Comment on above: John diarrhea Start: 06-20-2023 End: 06-20-2023 Subsequent hospital visit by physician David Lee MD Work Phone: Ambulatory Surgery Comment on above: Chronic GERD [K21.9] Start: 06-19-2023 Refill Nicolasa Yanez ets DO Work Phone: [facility] Comment on above: Refill Request Start: 04-26-2023 Refill Beatrice allan MD Work Phone: [facility] Cardiology [place] Comment on above: Refill Request pravastatin 20 mg ta blet Start: 04-23-2023 End: 04-23-2023 Patient encounter procedure Mone Robertson PA-C Work Phone: [facility] Comment on above: Chronic GERD (Primar y Dx); Melena; Screening for colon cancer; Constipation, unspecified constipation type Start: 04-16-2023 Orders Only Beatrice allan MD Work Phone: Cardiology Comment on above: Bilateral carotid ar daren stenosis (Primary Dx) Start: 04-15-2023 End: 04-15-2023 Office outpatient visit 25 minutes Lilian Rodríguez PA-C Work Phone: Pulmonary Medicine Comment on above: 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 ([facility]) (Primary Dx); Lung nodules; Class 2 obesity due to excess calories with body mass index (BMI) of 36.0 to 36.9 in adult, unspecified whether serious comorbidity present; ILD (interstitial lung disease) ([facility]) Start: 04-15-2023 Refill Lilian Lemus PA-C Work Phone: Pulmonary Medicine Comment on above: Refill Request Start: 04-03-2023 Telephone encounter Lilian Rodríguez PA-C Work Phone: Pulmonary Medicine Comment on above: Orders Start: 03-08-2023 Refill Alma A Qued en WINDOWS SECURITY ENGINEER.SPECIALTY THERAPIST Work Phone: [facility] Comment on above: Med Change Request Start: 03-04-2023 End: 03-04-2023 Office outpatient visit 25 minutes Lilian Rodríguez PA-C Work Phone: Pulmonary Medicine Comment on above: 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 ([facility]) (Primary Dx); Dyspnea, unspecified type; Lung nodules; ILD (interstitial lung disease) ([facility]); Class 2 obesity due to excess calories with body mass index (BMI) of 36.0 to 36.9 in adult, unspecified whether serious comorbidity present Start: 02-28-2023 Refill Alma A Qued en WINDOWS SECURITY ENGINEER.SPECIALTY THERAPIST Work Phone: [facility] Comment on above: Refill Request Start: 02-20-2023 Telephone encounter Alma A Queden WINDOWS SECURITY ENGINEER.SPECIALTY THERAPIST Work Phone: [facility] Comment on above: Electronic Communica tion Start: 02-18-2023 Telephone encounter Alma A Queden WINDOWS SECURITY ENGINEER.SPECIALTY THERAPIST Work Phone: [facility] Comment on above: Verbal orders Start: 02-15-2023 Refill Alma A Qued en WINDOWS SECURITY ENGINEER.SPECIALTY THERAPIST Work Phone: [facility] Comment on above: Med Change Request Start: 02-14-2023 ambulatory Alma A Qued en WINDOWS SECURITY ENGINEER.SPECIALTY THERAPIST Work Phone: [facility] Start: 02-14-2023 Follow-up encounter Alma A Queden WINDOWS SECURITY ENGINEER.SPECIALTY THERAPIST Work Phone: [facility] Comment on above: Follow up on GI Start: 02-13-2023 Refill Alma A Qued en WINDOWS SECURITY ENGINEER.SPECIALTY THERAPIST Work Phone: [facility] Comment on above: Refill Request Start: 02-05-2023 ambulatory Alma A Qued en WINDOWS SECURITY ENGINEER.SPECIALTY THERAPIST Work Phone: [facility] Comment on above: John bowel issues Start: 02-05-2023 Telephone encounter Alma A Queden WINDOWS SECURITY ENGINEER.SPECIALTY THERAPIST Work Phone: [facility] Comment on above: Patient Update Start: 01-21-2023 End: 01-21-2023 Patient encounter procedure Lilian Rodríguez PA-C Work Phone: Pulmonary Medicine Comment on above: 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 ([facility]) (Primary Dx); Lung nodules; ILD (interstitial lung disease) ([facility]); Class 2 obesity due to excess calories with body mass index (BMI) of 36.0 to 36.9 in adult, unspecified whether serious comorbidity present Start: 01-14-2023 Refill Alma A Qued en WINDOWS SECURITY ENGINEER.SPECIALTY THERAPIST Work Phone: [facility] Comment on above: Refill Request Start: 12-27-2022 Refill Alma A Qued en WINDOWS SECURITY ENGINEER.SPECIALTY THERAPIST Work Phone: [facility] Comment on above: Refill Request Start: 12-17-2022 Telephone encounter Alma A Queden WINDOWS SECURITY ENGINEER.SPECIALTY THERAPIST Work Phone: [facility] Comment on above: Forms Start: 12-15-2022 Refill Alma A Qued en WINDOWS SECURITY ENGINEER.SPECIALTY THERAPIST Work Phone: [facility] Comment on above: Refill Request Start: 12-15-2022 Refill Alma A Qued en WINDOWS SECURITY ENGINEER.SPECIALTY THERAPIST Work Phone: [facility] Comment on above: Refill Request Start: 12-13-2022 Telephone encounter Alma Rodriguezden WINDOWS SECURITY ENGINEER.SPECIALTY THERAPIST Work Phone: [facility] Comment on above: Results Medication Renewal R equest Start: 12-10-2022 End: 12-10-2022 Subsequent hospital visit by physician [facility] Work Phone: [facility] Comment on above: Lung nodules [R91.8] Start: 11-28-2022 Refill Alma A Qued en WINDOWS SECURITY ENGINEER.SPECIALTY THERAPIST Work Phone: [facility] Comment on above: Refill Request Start: 11-20-2022 End: 11-20-2022 ambulatory Pulm [facility] Work Phone: [facility]UL[facility] Comment on above: Spirometry Start: 11-20-2022 End: 11-20-2022 Patient encounter procedure [facility] Work Phone: [facility] Comment on above: 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 ([facility]) (Primary Dx); Lung nodules; ILD (interstitial lung disease) ([facility]); Class 2 obesity due to excess calories with body mass index (BMI) of 36.0 to 36.9 in adult, unspecified whether serious comorbidity present; Angina at rest ([facility]) Start: 11-16-2022 Telephone encounter Alma Rodriguezden WINDOWS SECURITY ENGINEER.SPECIALTY THERAPIST Work Phone: [facility] Comment on above: Results Start: 11-12-2022 Refill Alma Tiffani Qued en WINDOWS SECURITY ENGINEER.SPECIALTY THERAPIST Work Phone: [facility] Comment on above: Refill Request Start: 11-08-2022 End: 11-08-2022 Nursing evaluation of patient and report Nurse Saniya [facility] Work Phone: [facility] Comment on above: Encounter for immuni zation (Primary Dx) Start: 11-08-2022 End: 11-08-2022 Subsequent hospital visit by physician [facility] Comment on above: Dyspnea, unspecified type [R06.00] Start: 11-01-2022 Refill Alma A Qued en WINDOWS SECURITY ENGINEER.SPECIALTY THERAPIST Work Phone: [facility] Comment on above: Refill Request Start: 10-30-2022 Telephone encounter Alma A Queden WINDOWS SECURITY ENGINEER.SPECIALTY THERAPIST Work Phone: [facility] Comment on above: Patient Question Start: 10-16-2022 ambulatory Alma A Qued en WINDOWS SECURITY ENGINEER.SPECIALTY THERAPIST Work Phone: [facility] Comment on above: Isosorbide Start: 10-12-2022 Telephone encounter Alma A Queden WINDOWS SECURITY ENGINEER.SPECIALTY THERAPIST Work Phone: [facility] Comment on above: Patient Update Start: 10-06-2022 Refill Alma A Qued en WINDOWS SECURITY ENGINEER.SPECIALTY THERAPIST Work Phone: [facility] Comment on above: Refill Request Start: 09-19-2022 Telephone encounter Beatrice Sarmiento MD Work Phone: Cardiology Comment on above: Patient Update Start: 09-13-2022 End: 09-13-2022 Patient encounter procedure Alma A Queden WINDOWS SECURITY ENGINEER.SPECIALTY THERAPIST Work Phone: [facility] Comment on above: SOB (shortness of br eath) on exertion (Primary Dx); Postnasal drip; Chronic diastolic congestive heart failure (HCC); Pulmonary nodule seen on imaging study; Need for pneumococcal vaccination Start: 09-07-2022 ambulatory Alma A Qued en WINDOWS SECURITY ENGINEER.SPECIALTY THERAPIST Work Phone: [facility] Comment on above: Plavix Start: 09-07-2022 Refill Alma A Qued en WINDOWS SECURITY ENGINEER.SPECIALTY THERAPIST Work Phone: [facility] Comment on above: Med Change Request Start: 09-05-2022 Telephone encounter Alma A Wicho WINDOWS SECURITY ENGINEER.SPECIALTY THERAPIST Work Phone: [facility] Comment on above: Patient Update Start: 09-03-2022 Refill Tammy Bliss son WINDOWS SECURITY ENGINEER.SPECIALTY THERAPIST Work Phone: Cardiology Comment on above: Refill Request Start: 08-29-2022 Refill Alma Nixon Jasond en WINDOWS SECURITY ENGINEER.SPECIALTY THERAPIST Work Phone: [facility] Comment on above: Refill Request Start: 08-22-2022 End: 08-22-2022 Subsequent hospital visit by physician [facility] Work Phone: [facility] Comment on above: SOB (shortness of br eath) on exertion [R06.02] Start: 08-21-2022 End: 08-21-2022 Patient encounter procedure Alma Tiffani Wicho WINDOWS SECURITY ENGINEER.SPECIALTY THERAPIST Work Phone: [facility] Comment on above: SOB (shortness of br eath) on exertion (Primary Dx); Essential hypertension; Chronic diastolic congestive heart failure (HCC); Peripheral vascular disease (HCC); Post PTCA; Hyponatremia; Impaired mobility Start: 08-21-2022 Telephone encounter Alma Tiffani Wicho WINDOWS SECURITY ENGINEER.SPECIALTY THERAPIST Work Phone: [facility] Comment on above: Electronic Communica tion; Forms Start: 08-17-2022 Telephone encounter Alma Gill WINDOWS SECURITY ENGINEER.SPECIALTY THERAPIST Work Phone: [facility] Comment on above: Verbal orders Start: 08-13-2022 Telephone encounter Suzanne Almaguer MA [facility] Comment on above: Patient Question (Me illsa form [facility] ) Follow Up (F/U - att empt made. 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) Start: 07-19-2022 Patient encounter procedure [facility] Provider [facility] Department Start: 07-13-2022 Refill Alma A Qued en WINDOWS SECURITY ENGINEER.SPECIALTY THERAPIST Work Phone: [facility] Comment on above: Refill Request Start: 07-05-2022 End: 07-05-2022 Office outpatient visit 40 minutes Tammy Loaiza WINDOWS SECURITY ENGINEER.SPECIALTY THERAPIST Work Phone: Cardiology Comment on above: Coronary artery dise ase involving kashia coronary artery of kashia heart with angina pectoris (HCC) (Primary Dx); Chronic diastolic congestive heart failure (HCC); Essential hypertension; Mixed hyperlipidemia; Abnormal stress test Start: 07-05-2022 Refill Alma A Qued en WINDOWS SECURITY ENGINEER.SPECIALTY THERAPIST Work Phone: [facility] Comment on above: Refill Request Start: 06-28-2022 Telephone encounter Dedrick Krause DO Work Phone: Cardiology Comment on above: Appointment Start: 06-26-2022 Telephone encounter Alma Gill WINDOWS SECURITY ENGINEER.SPECIALTY THERAPIST Work Phone: [facility] Comment on above: Results Start: 06-19-2022 [...] Start: 06-07-2022 Refill Alma A Qued en WINDOWS SECURITY ENGINEER.SPECIALTY THERAPIST Work Phone: [facility] Comment on above: Refill Request Start: 06-05-2022 Telephone encounter Adrianne Ceja n WINDOWS SECURITY ENGINEER.SPECIALTY THERAPIST Work Phone: Cardiology Comment on above: Appointment Start: 06-04-2022 End: 06-04-2022 Patient encounter procedure Dedrick Krause DO Work Phone: Cardiology Comment on above: Chronic diastolic co ngestive heart failure (HCC) (Primary Dx); Chest discomfort; 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); Essential hypertension; Mixed hyperlipidemia; Impaired fasting glucose; S/P CABG x 4; Hyponatremia Start: 06-01-2022 Telephone encounter Alma A Queden WINDOWS SECURITY ENGINEER.SPECIALTY THERAPIST Work Phone: [facility] Comment on above: Electronic Communica tion; Orders Start: 05-18-2022 ambulatory Alma A Qued en WINDOWS SECURITY ENGINEER.SPECIALTY THERAPIST Work Phone: [facility] Comment on above: Trazadone Start: 05-16-2022 Telephone encounter Alma A Queden WINDOWS SECURITY ENGINEER.SPECIALTY THERAPIST Work Phone: [facility] Comment on above: Patient Question Start: 05-08-2022 Refill Alma A Qued en WINDOWS SECURITY ENGINEER.SPECIALTY THERAPIST Work Phone: [facility] Comment on above: Refill Request Start: 05-03-2022 Telephone encounter Alma A Queden WINDOWS SECURITY ENGINEER.SPECIALTY THERAPIST Work Phone: [facility] Comment on above: Forms ([facility] Prescription - Detailed Written Order) Start: 05-02-2022 Refill Alma A Qued en WINDOWS SECURITY ENGINEER.SPECIALTY THERAPIST Work Phone: [facility] Comment on above: Refill Request Start: 04-30-2022 ambulatory Alma A Qued en WINDOWS SECURITY ENGINEER.SPECIALTY THERAPIST Work Phone: [facility] Comment on above: Wheelchair Prescript ion Start: 04-26-2022 Telephone encounter Alma A Queden WINDOWS SECURITY ENGINEER.SPECIALTY THERAPIST Work Phone: [facility] Comment on above: Electronic Communica tion Start: 04-19-2022 Telephone encounter Alma A Queden WINDOWS SECURITY ENGINEER.SPECIALTY THERAPIST Work Phone: [facility] Comment on above: Electronic Communica tion; Forms Start: 04-10-2022 Telephone encounter Alma A Queden WINDOWS SECURITY ENGINEER.SPECIALTY THERAPIST Work Phone: [facility] Comment on above: Electronic Communica tion; Forms Start: 04-05-2022 Refill Alma A Qued en WINDOWS SECURITY ENGINEER.SPECIALTY THERAPIST Work Phone: [facility] Comment on above: Refill Request Start: 03-19-2022 ambulatory Alma A Qued en WINDOWS SECURITY ENGINEER.SPECIALTY THERAPIST Work Phone: [facility] Comment on above: UTI Results Start: 03-06-2022 Telephone encounter Alma A Queden WINDOWS SECURITY ENGINEER.SPECIALTY THERAPIST Work Phone: [facility] Comment on above: Electronic Communica tion; Forms Start: 03-05-2022 Refill Alma A Qued en WINDOWS SECURITY ENGINEER.SPECIALTY THERAPIST Work Phone: [facility] Comment on above: Refill Request Start: 03-01-2022 ambulatory Alma A Qued en WINDOWS SECURITY ENGINEER.SPECIALTY THERAPIST Work Phone: [facility] Comment on above: Add medication Start: 02-28-2022 Refill Alma A Qued en WINDOWS SECURITY ENGINEER.SPECIALTY THERAPIST Work Phone: [facility] Comment on above: Refill Request Start: 02-23-2022 Patient encounter procedure [facility] Provider [facility] Department Start: 02-20-2022 End: 02-20-2022 Subsequent hospital visit by physician Card/Pulm Lab [facility] Comment on above: Chest pain, unspecif ied type [R07.9] Start: 02-19-2022 End: 02-19-2022 Patient encounter procedure Alma A Queden WINDOWS SECURITY ENGINEER.SPECIALTY THERAPIST Work Phone: [facility] Comment on above: SOB (shortness of br eath) (Primary Dx); Chronic congestive heart failure, unspecified heart failure type (HCC); Pressure injury of right buttock, stage 2 (HCC); Pressure injury of left buttock, stage 2 (HCC); Skin breakdown; Dysuria; Acute cystitis with hematuria; Chronic low back pain, unspecified back pain laterality, unspecified whether sciatica present; Impaired mobility Start: 02-12-2022 ambulatory Alma Rolon en WINDOWS SECURITY ENGINEER.SPECIALTY THERAPIST Work Phone: [facility] Comment on above: EkG,Echo and Nuclear Stress test Start: 02-12-2022 Telephone encounter Alma Gill WINDOWS SECURITY ENGINEER.SPECIALTY THERAPIST Work Phone: [facility] Comment on above: Results; Consult Start: 02-09-2022 Telephone encounter Alma Gill APRN.SPECIALTY THERAPIST Work Phone: [facility] Comment on above: Results Start: 02-08-2022 End: 02-08-2022 Subsequent hospital visit by physician [facility] Comment on above: Chronic congestive h eart failure, unspecified heart failure type (HCC) [I50.9] Start: 02-08-2022 End: 02-08-2022 Patient encounter procedure Alma Gill WINDOWS SECURITY ENGINEER.SPECIALTY THERAPIST Work Phone: [facility] Comment on above: Chronic congestive h eart failure, unspecified heart failure type (HCC) (Primary Dx); SOB (shortness of breath); Pressure injury of right buttock, stage 2 (HCC); Pressure injury of left buttock, stage 2 (HCC) Start: 02-05-2022 ambulatory Alma Rolon en WINDOWS SECURITY ENGINEER.SPECIALTY THERAPIST Work Phone: [facility] Start: 02-05-2022 Follow-up encounter Alma Gill WINDOWS SECURITY ENGINEER.SPECIALTY THERAPIST Work Phone: [facility] Comment on above: Follow up on air mat trewi Start: 02-01-2022 End: 02-01-2022 Patient encounter procedure Alma A Queden WINDOWS SECURITY ENGINEER.SPECIALTY THERAPIST Work Phone: [facility] Comment on above: Pressure injury of [...] Start: 01-30-2022 Refill Alma A Qued en WINDOWS SECURITY ENGINEER.SPECIALTY THERAPIST Work Phone: [facility] Comment on above: Refill Request Start: 01-26-2022 Telephone encounter Alma Tiffani Queden WINDOWS SECURITY ENGINEER.SPECIALTY THERAPIST Work Phone: [facility] Comment on above: Appointment Start: 01-22-2022 ambulatory Alma A Qued en WINDOWS SECURITY ENGINEER.SPECIALTY THERAPIST Work Phone: [facility] Comment on above: Possible pressure ul cers Start: 01-18-2022 Telephone encounter Alma A Queden WINDOWS SECURITY ENGINEER.SPECIALTY THERAPIST Work Phone: [facility] Comment on above: Electronic Communica tion; Forms Start: 01-04-2022 Refill Alma A Qued en WINDOWS SECURITY ENGINEER.SPECIALTY THERAPIST Work Phone: [facility] Comment on above: Refill Request Start: 01-02-2022 Refill Alma A Qued en WINDOWS SECURITY ENGINEER.SPECIALTY THERAPIST Work Phone: [facility] Comment on above: Refill Request Start: 12-30-2021 Refill Dana C Tril l WINDOWS SECURITY ENGINEER.SPECIALTY THERAPIST Work Phone: [facility] Comment on above: Refill Request Start: 12-07-2021 Telephone encounter Alma Tiffani Queden WINDOWS SECURITY ENGINEER.SPECIALTY THERAPIST Work Phone: [facility] Comment on above: Electronic Communica tion Start: 12-06-2021 Telephone encounter Alma Rodriguezden WINDOWS SECURITY ENGINEER.SPECIALTY THERAPIST Work Phone: [facility] Comment on above: Results Start: 12-04-2021 ambulatory Alma Tiffani Qued en WINDOWS SECURITY ENGINEER.SPECIALTY THERAPIST Work Phone: [facility] Comment on above: Possible UTI Start: 12-04-2021 Telephone encounter Alma Rodriguezden WINDOWS SECURITY ENGINEER.SPECIALTY THERAPIST Work Phone: [facility] Comment on above: Electronic Communica tion Start: 12-02-2021 Refill Alma Tiffani Qued en WINDOWS SECURITY ENGINEER.SPECIALTY THERAPIST Work Phone: [facility] Comment on above: Refill Request Start: 12-01-2021 Telephone encounter Alma Rodriguezden WINDOWS SECURITY ENGINEER.SPECIALTY THERAPIST Work Phone: [facility] Comment on above: Forms (Trev Walter Verbal Order for half-way 11/30/21) Start: 11-27-2021 Telephone encounter Alma Rodriguezden WINDOWS SECURITY ENGINEER.SPECIALTY THERAPIST Work Phone: [facility] Comment on above: Electronic Communica tion Start: 11-23-2021 End: 11-23-2021 Patient encounter procedure Alma Rodriguezden WINDOWS SECURITY ENGINEER.SPECIALTY THERAPIST Work Phone: [facility] Comment on above: Headaches due to old head trauma (Primary Dx); Essential hypertension; Chronic low back pain, unspecified back pain laterality, unspecified whether sciatica present; Insomnia, unspecified type; Essential tremor; Depression, unspecified depression type; Screening for colon cancer; Screening for diabetes mellitus; Screening for lipid disorders; Screening for deficiency anemia Start: 11-03-2021 Telephone encounter Alma Rodriguezden WINDOWS SECURITY ENGINEER.SPECIALTY THERAPIST Work Phone: [facility] Comment on above: Electronic Communica tion Start: 11-01-2021 Refill Alma Tiffani Qued en WINDOWS SECURITY ENGINEER.SPECIALTY THERAPIST Work Phone: [facility] Comment on above: Refill Request Start: 11-01-2021 Refill Alma A Qued en WINDOWS SECURITY ENGINEER.SPECIALTY THERAPIST Work Phone: [facility] Comment on above: Refill Request Start: 10-31-2021 Telephone encounter Alma A Queden WINDOWS SECURITY ENGINEER.SPECIALTY THERAPIST Work Phone: [facility] Comment on above: Electronic Communica tion Start: 10-30-2021 Refill Alma A Qued en WINDOWS SECURITY ENGINEER.SPECIALTY THERAPIST Work Phone: [facility] Comment on above: Refill Request Start: 10-26-2021 End: 10-26-2021 Nursing evaluation of patient and report Nurse Saniya Alarcon [place] Work Phone: [facility] Comment on above: Encounter for staple removal (Primary Dx) Start: 10-17-2021 ambulatory Alma A Qued en WINDOWS SECURITY ENGINEER.SPECIALTY THERAPIST Work Phone: [facility] Comment on above: ER F/U Start: 10-15-2021 End: 10-16-2021 Emergency department patient visit Richard N[facility] Emergency 12 Start: 10-01-2021 Refill Alma A Qued en WINDOWS SECURITY ENGINEER.SPECIALTY THERAPIST Work Phone: [facility] Comment on above: Refill Request Start: 09-26-2021 Refill Alma A Qued en WINDOWS SECURITY ENGINEER.SPECIALTY THERAPIST Work Phone: [facility] Comment on above: Refill Request Start: 09-05-2021 Telephone encounter Alma A Queden WINDOWS SECURITY ENGINEER.SPECIALTY THERAPIST Work Phone: [facility] Comment on above: Electronic Communica tion Start: 09-01-2021 Refill Palak guzman MD Work Phone: [facility] Comment on above: Refill Request Start: 08-30-2021 Refill Nicolasa iqbal DO Work Phone: [facility] Comment on above: Refill Request Start: 08-29-2021 Telephone encounter Alma A Queden WINDOWS SECURITY ENGINEER.SPECIALTY THERAPIST Work Phone: [facility] Comment on above: Electronic Communica tion Start: 08-22-2021 Telephone encounter Alma Rodriguezviolet WINDOWS SECURITY ENGINEER.SPECIALTY THERAPIST Work Phone: [facility] Comment on above: Electronic Communica tion Start: 08-16-2021 Refill Palak guzman MD Work Phone: [facility] Comment on above: Refill Request Start: 07-05-2020 Patient encounter procedure Priya Rock [facility] 300 Work Phone: Start: 06-03-2020 Patient encounter procedure Priya Rock [facility] 300 Work Phone: Procedures Date Procedure Procedure Detail Performing Clinician Start: 11-11-2024 Co diffusing capacity Tru kaiser MD Work Phone: Start: 10-21-2024 Radex hand minimum 3 views Bear Perales i, PA-C Work Phone: Start: 08-26-2024 Echo tthrc r-t 2d w/wom-mode compl spec&colr d Mitchell Caruso WINDOWS SECURITY ENGINEER.SPECIALTY THERAPIST Work Phone: Start: 08-24-2024 Lipid 1996 panel - Serum or Plasma Card/ Pulm [place] Start: 07-14-2024 COVID & INFLUENZA A/B & RSV PCR, ROUTINE Alma Rodriguezviolet CROSS.SPECIALTY THERAPIST Work Phone: Start: 04-27-2024 Spmtry w/vc expiratory anglea w/wo mxml vol vntj Tru Simon MD Work Phone: Start: 03-13-2024 Noninvasive ear/pulse oximetry multiple deter Lilian Rodríguez PA-C Work Phone: Start: 03-13-2024 Co diffusing capacity Francisco veliz MD Work Phone: Start: 11-29-2023 Colonoscopy flx dx w/collj spec when pfrmd Mone Robertson PA-C Work Phone: Start: 11-29-2023 Colonoscopy Rosemary Russell MD Work Phone: Start: 10-24-2023 Lipid 1996 panel - Serum or Plasma Toni Chacon WINDOWS SECURITY ENGINEER.SPECIALTY THERAPIST Work Phone: Start: 06-20-2023 Colonoscopy flx dx w/collj spec when pfrmd Mone Robertson PA-C Work Phone: Start: 06-20-2023 Esophagogastroduodenoscopy transoral diagnostic Mone Robertson PA-C Work Phone: Start: 06-20-2023 Colonoscopy Nicolasa Montoya DO Work Phone: Start: 03-14-2023 Lipid 1996 panel - Serum or Plasma Kyara Rodríguez PA-C Work Phone: Start: 02-06-2023 Blood occult fecal hgb deter ia qual feces 1-3 Alma Gill WINDOWS SECURITY ENGINEER.SPECIALTY THERAPIST Work Phone: Start: 02-06-2023 Inf agent det nucleic acid clostridium amp probe Alma Gill WINDOWS SECURITY ENGINEER.SPECIALTY THERAPIST Work Phone: Start: 02-06-2023 Nfct agent dna/rna gastrointestinal pathogen Alma Gill APRN.SPECIALTY THERAPIST Work Phone: Start: 11-20-2022 Brncdilat rspse spmtry pre&post-brncdilat admn Francisco Patel MD Work Phone: Start: 11-08-2022 Radiologic exam chest 2 views Francisco Patel MD Work Phone: Start: 08-22-2022 Ct thorax w/contrast material Alma Gill WINDOWS SECURITY ENGINEER.SPECIALTY THERAPIST Work Phone: Start: 07-19-2022 Lipid 1996 panel - Serum or Plasma Corina Gill WINDOWS SECURITY ENGINEER.SPECIALTY THERAPIST Work Phone: Start: 06-19-2022 Myocardial spect multiple studies Paula Gill WINDOWS SECURITY ENGINEER.SPECIALTY THERAPIST Work Phone: Start: 06-04-2022 History of coronary artery bypass grafting S/P CABG x 4 Dedrick Krause DO Work Phone: Start: 02-20-2022 Echo tthrc r-t 2d w/wom-mode compl spec&colr d Alma A Wicho WINDOWS SECURITY ENGINEER.[facility] Work Phone: Start: 02-19-2022 Urnls dip stick/tablet rgnt auto w/o microscopy Alma A Wicho WINDOWS SECURITY ENGINEER.[facility] Work Phone: Start: 02-19-2022 Culture bacterial quanttative colony count urine Alma Gill WINDOWS SECURITY ENGINEER.[facility] Work Phone: Start: 02-08-2022 Ecg routine ecg w/least 12 lds trcg only w/o i&r Ccf Provider Start: 02-08-2022 Radiologic exam chest 2 views Alma Gill APRN.SPECIALTY THERAPIST Work Phone: Start: 02-01-2022 INFLUENZA SEASONAL QUADRIVALENT HIGH DOSE AGE 65+ Alma Gill WINDOWS SECURITY ENGINEER.[facility] Work Phone: Start: 05-24-2020 Adult depression screening assessment Palak Snyder MD Work Phone: 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 Priya Rock Finger operation Priya prieto Operation on heart Priya marin Operative procedure on hip J ulapple oRck Procedure on back Priya Gallegos ier Plan of Treatment Date Care Activity Detail Author Start: 05-22-2030 Urine microalbumin profile [facility] Start: 08-24-2029 Lipid panel Lipid Screening [facility] Start: 10-23-2028 Lipid panel Lipid Screening [facility] Start: 03-14-2028 Lipid 1996 panel - Serum or Plasma Lipid Screening [facility] Start: 03-14-2028 Lipid panel Lipid Screening [facility] Start: 11-11-2027 Diabetes Screening Diabetes Screening [facility] Start: 11-03-2027 Diabetes Screening Diabetes Screening [facility] Start: 10-16-2027 Diabetes Screening Diabetes Screening [facility] Start: 10-15-2027 Diabetes Screening Diabetes Screening [facility] Start: 10-14-2027 Diabetes Screening Diabetes Screening [facility] Start: 10-13-2027 Diabetes Screening Diabetes Screening [facility] Start: 09-29-2027 Diabetes Screening Diabetes Screening [facility] Start: 09-22-2027 Diabetes Screening Diabetes Screening [facility] Start: 09-10-2027 Diabetes Screening Diabetes Screening [facility] Start: 08-25-2027 Diabetes Screening Diabetes Screening [facility] Start: 08-19-2027 Diabetes Screening Diabetes Screening [facility] Start: 08-11-2027 Diabetes Screening Diabetes Screening [facility] Start: 08-04-2027 Diabetes Screening Diabetes Screening [facility] Start: 07-28-2027 Diabetes Screening Diabetes Screening [facility] Start: 07-20-2027 Lipid 1996 panel - Serum or Plasma Lipid Screening [facility] Start: 07-20-2027 LIPID SCREEN LIPID SCREEN [facility] Start: 03-09-2027 Diabetes Screening Diabetes Screening [facility] Start: 02-01-2027 LIPID SCREEN LIPID SCREEN [facility] Start: 01-14-2027 Diabetes Screening Diabetes Screening [facility] Start: 01-13-2027 Diabetes Screening Diabetes Screening [facility] Start: 10-23-2026 Diabetes Screening Diabetes Screening [facility] Start: 03-14-2026 Diabetes Screening Diabetes Screening [facility] Start: 11-10-2025 Annual PCP Team Chronic Disease Visit Annual PCP Team Chronic Disease Visit [facility] Start: 11-08-2025 DIABETES SCREEN DIABETES SCREEN [facility] Start: 11-08-2025 Diabetes Screening Diabetes Screening [facility] Start: 08-24-2025 Hepatitis B surface antibody level LDL Cholesterol [facility] Start: 08-11-2025 DIABETES SCREEN DIABETES SCREEN [facility] Start: 07-19-2025 DIABETES SCREEN DIABETES SCREEN [facility] Start: 07-15-2025 LIPID SCREEN LIPID SCREEN [facility] Start: 07-15-2025 PROSTATE CANCER SCREENING DISCUSSION PROSTATE CANCER SCREENING DISCUSSION [facility] Start: 07-14-2025 Annual PCP Team Chronic Disease Visit Annual PCP Team Chronic Disease Visit [facility] Start: 07-14-2025 BP Controlled (<130/80) BP Controlled (<130/80) [facility] Start: 05-10-2025 End: 05-10-2025 Patient encounter procedure 05/10/2025 3:20 PM EST Office Visit Cardiology [address] [place], [place] [id number] Beatrice Sarmiento MD [address] [place], [place] [phone] 6 mo follow up Cardiology Comment on above: 6 mo follow up Start: 04-22-2025 BP Controlled (<130/80) BP Controlled (<130/80) [facility] Start: 03-30-2025 Annual PCP Team Chronic Disease Visit Annual PCP Team Chronic Disease Visit [facility] Start: 03-30-2025 BP Controlled (<130/80) BP Controlled (<130/80) [facility] Start: 03-30-2025 Covid-19 Vaccine () Covid-19 Vaccine () [facility] Comment on above: Postponed from 01/12/2024 (Declined at t his time) Start: 03-30-2025 Covid-19 Vaccine () Covid-19 Vaccine () [facility] Comment on above: Postponed from 05/25/2024 (Declined at t his time) Start: 03-30-2025 Covid-19 Vaccine (9 - Pfizer risk ) Covid-19 Vaccine (9 - Pfizer risk ) [facility] Comment on above: Postponed from 09/27/2024 (Declined at t his time) Start: 03-30-2025 Shingrix Vaccine (1 of 2) Shingrix Vaccine (1 of 2) [facility] Comment on above: Postponed from 2003 (Declined at t his time) Postponed from 06/21 (Declined at this time) Start: 03-15-2025 End: 03-15-2025 Patient encounter procedure 03/15/2025 2:00 PM EST Office Visit Podiatry [address] [place], [place] [phone] Francesco Tobias [address] [place] [phone] f/u Podiatry Comment on above: f/u Start: 03-13-2025 BP Controlled (<130/80) BP Controlled (<130/80) [facility] Start: 03-11-2025 End: 03-11-2025 Patient encounter procedure Podiatry Comment on above: 3 month follow up nail care 1st att r/s - MACK 9/ 0 Start: 03-02-2025 Annual PCP Team Chronic Disease Visit Annual PCP Team Chronic Disease Visit [facility] Start: 03-02-2025 BP Controlled (<130/80) BP Controlled (<130/80) [facility] Start: 02-17-2025 End: 02-17-2025 Patient encounter procedure [...] pulmonary disease (HCC) Expected: 02/11/2025, Expires: 12/11/2025 [facility] Work Phone: Comment on above: Expected: 02/11/2025, Expires: Start: 02-11-2025 End: 02-11-2025 Patient encounter procedure [facility] Comment on above: Dx: Interstitial pulmonary disease (HCC) [J84.9] 3 MTH F/U Start: 02-08-2025 DIABETES SCREEN DIABETES SCREEN [facility] Start: 02-02-2025 BP Controlled (<130/80) BP Controlled (<130/80) [facility] Start: 02-01-2025 DIABETES SCREEN DIABETES SCREEN [facility] Start: 01-28-2025 BP Controlled (<130/80) BP Controlled (<130/80) [facility] Start: 01-11-2025 Influenza vaccination Influenza Vaccine (#1) [facility] Start: 12-07-2024 End: 12-07-2024 Patient encounter procedure 12/07/2024 2:30 PM EDT Office Visit Podiatry [address] [place], [place] [phone] HeribertoStorm smithew [address] [place], [place] [phone] 3 month follow up nail care Podiatry Comment on above: 3 month follow up nail care Start: 11-28-2024 Screening for malignant neoplasm of colon [facility] Start: 11-11-2024 End: 11-11-2024 Patient encounter procedure 11/11/2024 10:00 AM EDT Office Visit Pulmonary Medicine [address] [place], [place] [phone] Tru Simon MD [address] [phone] Return in about 7 weeks (around 11/09/2024). [...] procedure 11/10/2024 3:20 PM EDT Office Visit [facility] [address] [place] [address] Alma Gill, WINDOWS SECURITY ENGINEER.SPECIALTY THERAPIST [address] [place] [address] TCM CC Walter D/C 10/16/24 - Sepsis, PNA [facility] Comment on above: TCM CC Walter D/C 10/16/24 - Sepsis, PNA Start: 10-29-2024 End: 10-29-2024 Patient encounter procedure Pulmonary Medicine Comment on above: Hospital follow up ?COPD//Hospital foll ow up Start: 10-23-2024 Hepatitis B surface antibody level LDL Cholesterol [facility] Start: 10-21-2024 End: 10-21-2024 Patient encounter procedure 10/21/2024 9:45 AM EDT Office Visit [facility] [address] [place] [address] Bear Hidalgo PA-C [address] [place] [address] right hand [facility] Comment on above: right hand Start: 10-14-2024 End: 10-14-2024 Patient encounter procedure 10/14/2024 10:45 AM EDT Office Visit [facility] [address] [place] [address] Bear Hidalgo PA-C [address] [place] [address] Rt hand/boxer fx [facility] Comment on above: Rt hand/boxer fx Start: 10-12-2024 End: 10-12-2024 Patient encounter procedure 10/12/2024 11:20 AM EDT Office Visit [facility] [address] [place] [address] Alma Gill, WINDOWS SECURITY ENGINEER.SPECIALTY THERAPIST [address] [place] [address] follow up [facility] Comment on above: follow up Start: 09-23-2024 End: 09-23-2024 Patient encounter procedure 09/23/2024 2:30 PM EDT Office Visit [facility] [address] [place] [address] Sandra Hummel MD [address] [place] [address] Rt hand/boxer fx, PCP ref [facility] Comment on above: Rt hand/boxer [...] 12:03 PM EDT Hospital En[facility] [address] [facility] [place] [address] Hand injury, right, initial encounter [S69.91XA] [facility] Comment on above: Hand injury, right, initial encounter [S 69.91XA] Start: 09-21-2024 End: 09-21-2024 Patient encounter procedure Pulmonary Medicine Comment on above: Return in about 3 months (around 09/22/19 25). Start: 09-08-2024 End: 10-08-2024 CT Chest WO contrast CT CHEST WO IVCON Radiology Routine Lung nodules Expected: 09/08/2024, Expires: 10/08/2024 [facility] Work Phone: Comment on above: Expected: 09/08/2024, Expires: Start: 09-02-2024 Annual PCP Team Chronic Disease Visit Annual PCP Team Chronic Disease Visit [facility] Start: 09-02-2024 BP Controlled (<130/80) BP Controlled (<130/80) [facility] Start: 08-28-2024 End: 08-28-2024 Patient encounter procedure Podiatry Comment on above: 3 month follow up (resched from 06/04) Start: 08-26-2024 End: 08-26-2024 Patient encounter procedure 08/26/2024 11:30 AM EDT Appointment [facility] [address] [place] [address] Echo [facility] Comment on above: Echo Start: 08-26-2024 Subsequent hospital visit by physician 08/26/2024 11:30 AM EDT Hospital Encounter [facility] [address] [place] [address] Pulmonary arterial hypertension (HCC) [I27.21] [facility] Comment on above: Pulmonary arterial hypertension (HCC) [I 27.21] Start: 08-17-2024 End: 11-16-2024 LIPID PANEL, NONFASTING LIPID PANEL, NONFASTING Lab Routine Mixed hyperlipidemia Expected: 08/17/2024, Expires: 11/16/2024 [facility] Work Phone: Comment on above: Expected: 08/17/2024, Expires: Start: 08-17-2024 End: 08-17-2024 Patient encounter procedure Cardiology Comment on above: 6 month check Start: 08-03-2024 End: 08-03-2024 Patient encounter procedure 08/03/2024 1:00 PM EDT Office Visit [facility] [address] [place] [address] Alma Gill, WINDOWS SECURITY ENGINEER.SPECIALTY THERAPIST [address] [place] [address] Follow up [facility] Comment on above: Follow up Start: 07-17-2024 End: 07-17-2024 Patient encounter procedure 07/17/2024 2:40 PM EST Office Visit Podiatry [address] [place] [address] Francesco Tobias [address] [address] 3 month follow up (resched from 06/04) Podiatry Comment on above: 3 month follow up (resched from 06/04) Start: 07-16-2024 End: 07-16-2024 Patient encounter procedure 07/16/2024 2:00 PM EST Appointment [facility] [address] [place] [id number] Interstitial pulmonary disease (HCC) [J84.9] [facility] Comment on above: Interstitial pulmonary disease (HCC) [J8 4.9] Start: 07-14-2024 End: 07-14-2024 Patient encounter procedure 07/14/2024 4:40 PM EST Office Visit [facility] [address] [place] [address] Alma Gill, WINDOWS SECURITY ENGINEER.SPECIALTY THERAPIST [address] [place], [place] [phone] follow up /swab for covid/flu for CT on [facility] Comment on above: follow up /swab for covid/flu for CT on Start: 07-13-2024 End: 07-13-2024 Patient encounter procedure 07/13/2024 10:30 AM EST Office Visit Pulmonary Medicine [address] [place] [address] Francisco Patel MD [address] [place] [place] [address] 3 month follow up Pulmonary Medicine Comment on above: 3 month follow up Start: 06-30-2024 End: 06-30-2024 Patient encounter procedure 06/30/2024 4:00 PM EST Office Visit [facility] [address] [place], [place] [phone] Alma Gill WINDOWS SECURITY ENGINEER.SPECIALTY THERAPIST [address] [place] [address] follow up [facility] Comment on above: follow up Start: 06-24-2024 End: 06-24-2024 Patient encounter procedure 06/24/2024 2:00 PM EST Office Visit Pulmonary Medicine [address] [place], [place] [phone] Tru Simon MD [address] [place] [address] 1 month followup Pulmonary Medicine Comment on above: 1 month followup Start: 06-20-2024 Screening for malignant neoplasm of colon [facility] Start: 06-04-2024 End: 06-04-2024 Patient encounter procedure Podiatry Comment on above: 3 month follow up Start: 06-03-2024 End: 06-03-2024 Patient encounter procedure 06/03/2024 2:00 PM EST Office Visit Pulmonary Medicine [address] [place], [place] [phone] Tru Simon MD [address] [place], [place] [phone] 1 month followup Pulmonary Medicine Comment on above: 1 month followup Start: 05-13-2024 Advance Directive Discussion Advance Directive Discussion [facility] Start: 04-27-2024 End: 04-27-2024 ambulatory PULM LAB [facility] Comment on above: Chronic respiratory failure with hypoxia (HCC) [J96.11] Start: 04-22-2024 End: 04-22-2024 Patient encounter procedure 04/22/2024 2:00 PM EST Office Visit Pulmonary Medicine [address] [address] Tru Simon MD [address] [place] [address] ILD Pulmonary Medicine Comment on above: ILD Start: 04-15-2024 BP Controlled (<130/80) BP Controlled (<130/80) [facility] Start: 03-30-2024 End: 03-30-2024 Patient encounter procedure 03/30/2024 11:20 AM EST Office Visit [facility] [address] [place] [address] Alma Gill, WINDOWS SECURITY ENGINEER.SPECIALTY THERAPIST [address] [place] [address] Return in about 4 weeks (around 03/30/2024) [facility] Comment on above: Return in about 4 weeks (around 03/30/20 24) Start: 03-27-2024 End: 06-26-2024 Hepatic function 2000 panel - Serum or Plasma HEPATIC FUNCTION PNL Lab Routine Idiopathic pulmonary fibrosis (HCC) Expected: 03/27/2024, Expires: 06/26/2024 [facility] Work Phone: Comment on above: Expected: 03/27/2024, Expires: Start: 03-27-2024 End: 03-27-2024 Patient encounter procedure 03/27/2024 2:00 PM EST Office Visit Pulmonary Medicine [address] [place] [address] Mitchell Caruso APRN.SPECIALTY THERAPIST [address] [place] [address] 2 wk follow up Pulmonary Medicine Comment on above: 2 wk follow up Start: 03-14-2024 Hepatitis B surface antibody level LDL Cholesterol [facility] Start: 03-13-2024 End: 03-13-2025 Cyclic citrullinated peptide IgG Ab [Units/volume] in Serum or Plasma [facility] Comment on above: Expected: 03/13/2024, Expires: Start: 03-13-2024 End: 03-13-2025 Erythrocyte sedimentation rate [facility] Comment on above: Expected: 03/13/2024, Expires: Start: 03-13-2024 End: 03-13-2025 Extractable nuclear Ab panel - Serum [facility] Comment on above: Expected: 03/13/2024, Expires: Start: 03-13-2024 End: 03-13-2025 HYPERSEN PNEUMON AB [facility] Comment on above: Expected: 03/13/2024, Expires: Start: 03-13-2024 End: 03-13-2025 Nuclear Ab [Presence] in Serum by Immunoassay [facility] Work Phone: Comment on above: Expected: 03/13/2024, Expires: Start: 03-13-2024 End: 03-13-2024 Patient encounter procedure 03/13/2024 2:00 PM EDT Office Visit Pulmonary Medicine [address] [place] [address] Mitchell Caruso APRN.SPECIALTY THERAPIST [address] [place] [address] 1 wk f/u- review CT *03/09/24 Pulmonary Medicine Comment on above: 1 wk f/u- review CT *03/09/24 Start: 03-13-2024 End: 03-13-2024 ambulatory PULM LAB [facility] WS Comment on above: Interstitial pulmonary disease (HCC) [J8 4.9 Start: 03-09-2024 End: 02-27-2025 CT Chest WO contrast [facility] Work Phone: Comment on above: Expected: 03/09/2024, Expires: Start: 03-09-2024 End: 03-09-2024 Patient encounter procedure 03/09/2024 2:00 PM EDT Appointment [facility] [address] [place], [place] [phone] Interstitial pulmonary disease (HCC) [J84.9] [facility] Comment on above: Interstitial pulmonary disease (HCC) [J8 4.9] Start: 03-02-2024 End: 03-02-2024 Patient encounter procedure 03/02/2024 3:20 PM EDT Office Visit [facility] [address] [place], [place] [phone] Alma Gill APRN.SPECIALTY THERAPIST [address] [place] [address] [facility] 01/15 [facility] Comment on above: [facility] 01/15 Start: 03-02-2024 End: 06-01-2024 Basic metabolic 2000 panel - Serum or Plasma BASIC METABOLIC PANEL Lab Routine Hyponatremia Expected: 03/02/2024, Expires: 06/01/2024 [facility] Work Phone: Comment on above: Expected: 03/02/2024, Expires: Start: 03-02-2024 End: 06-01-2024 Natriuretic peptide.B prohormone N-Terminal [Mass/volume] in Serum or Plasma NT PRO BNP Lab Routine Chronic diastolic congestive heart failure (HCC) Expected: 03/02/2024, Expires: 06/01/2024 [facility] Comment on above: Expected: 03/02/2024, Expires: Start: 02-27-2024 End: 02-27-2024 Patient encounter procedure 02/27/2024 2:00 PM EDT Office Visit Podiatry [address] [place], [place] [id number] Francesco Tobias [address] [place], [place] [id number] follow up to L foot 2nd toe sore also trim nails if posible Podiatry Comment on above: follow up to L foot 2nd toe sore also tr im nails if posible Start: 02-07-2024 Colorectal Cancer Screening Colorectal Cancer Screening [facility] Start: 02-07-2024 Fecal Occult Blood Fecal Occult Blood [facility] Start: 02-07-2024 Screening for malignant neoplasm of colon [facility] Start: 02-03-2024 End: 02-03-2024 Patient encounter procedure 02/03/2024 4:20 PM EDT Office Visit Cardiology [address] [place] [phone] Beatrice Sarmiento MD [address] [place] [address] 6 month follow up Cardiology Comment on above: 6 month follow up Start: 02-03-2024 End: 05-04-2024 Basic metabolic 2000 panel - Serum or Plasma BASIC METABOLIC PANEL Lab Routine 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) Chronic diastolic congestive heart failure (HCC) Expected: 02/03/2024, Expires: 05/04/2024 [facility] Comment on above: Expected: 02/03/2024, Expires: Start: 02-03-2024 End: 05-04-2024 Natriuretic peptide.B prohormone N-Terminal [Mass/volume] in Serum or Plasma NT PRO BNP Lab Routine Chronic diastolic congestive heart failure (HCC) Expected: 02/03/2024, Expires: 05/04/2024 [facility] Work Phone: Comment on above: Expected: 02/03/2024, Expires: Start: 01-18-2024 DIABETES SCREEN DIABETES SCREEN [facility] Start: 01-12-2024 Covid-19 Vaccine ( season) Covid-19 Vaccine () [facility] Start: 01-12-2024 Covid-19 Vaccine ( season) Covid-19 Vaccine () [facility] Start: 01-12-2024 Influenza vaccination Influenza Vaccine (#1) [facility] Start: 11-29-2023 End: 11-29-2023 Patient encounter procedure [facility] Comment on above: colon Start: 11-29-2023 End: 11-29-2023 Patient encounter procedure 11/29/2023 8:15 AM EDT Appointment [facility] [address] [place] [address] Rosemary Russell MD [address] [place] [phone] Buddy Gallegos APRN.DAG SPRAYER [address] [place] [address] Bradly Dumont MD [address] [place] [address] colon [facility] Comment on above: colon Start: 11-21-2023 BP CONTROLLED (<130/80) BP CONTROLLED (<130/80) [facility] Start: 11-21-2023 End: 11-21-2023 Patient encounter procedure 11/21/2023 10:15 AM EDT Office Visit Podiatry [address] [place] [address] Preetiaddi Francesco [address] [place] [address] consult L foot 2nd toe sore also trim nails if posible Podiatry Comment on above: consult L foot 2nd toe sore also trim na ils if posible Start: 11-09-2023 BP CONTROLLED (<130/80) BP CONTROLLED (<130/80) [facility] Start: 10-24-2023 Covid-19 Vaccine () Covid-19 Vaccine () [facility] Start: 10-24-2023 End: 10-24-2023 Patient encounter procedure 10/24/2023 1:15 PM EDT Office Visit Pulmonary Medicine [address] [place] [address] Francisco Patel MD [address] [place] [address] six month follow up Pulmonary Medicine Comment on above: six month follow up Start: 10-22-2023 End: 07-13-2024 Comprehensive metabolic 2000 panel - Serum or Plasma COMP METABOLIC PANEL Lab Routine 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) Mixed hyperlipidemia Expected: 10/22/2023, Expires: 07/13/2024 [facility] Work Phone: Comment on above: Expected: 10/22/2023, Expires: Start: 10-22-2023 End: 07-13-2024 Lipid 1996 panel - Serum or Plasma LIPID PANEL BASIC Lab Routine Mixed hyperlipidemia Expected: 10/22/2023, Expires: 07/13/2024 [facility] Work Phone: Comment on above: Expected: 10/22/2023, Expires: Start: 10-18-2023 End: 10-18-2023 Patient encounter procedure 10/18/2023 1:30 PM EDT Appointment [facility] [address] [place] [address] David Lee MD [address] [place] [address] colon [facility] Comment on above: colon Start: 10-15-2023 End: 10-15-2023 Patient encounter procedure Vasculary Surgery Comment on above: PVR Start: 09-14-2023 ANNUAL PCP TEAM CHRONIC DISEASE VISIT ANNUAL PCP TEAM CHRONIC DISEASE VISIT [facility] Start: 09-14-2023 BP CONTROLLED (<130/80) BP CONTROLLED (<130/80) [facility] Start: 09-09-2023 End: 09-09-2023 Patient encounter procedure 09/09/2023 11:45 AM EDT Office Visit Pulmonary Medicine [address] [place] [address] Francisco Patel MD [address] [place] [address] 6 MONTH FOLLOW UP Pulmonary Medicine Comment on above: 6 MONTH FOLLOW UP Start: 08-22-2023 ANNUAL PCP TEAM CHRONIC DISEASE VISIT ANNUAL PCP TEAM CHRONIC DISEASE VISIT [facility] Start: 08-22-2023 BP CONTROLLED (<130/80) BP CONTROLLED (<130/80) [facility] Start: 07-20-2023 Hepatitis B surface antibody level LDL CHOLESTEROL [facility] Start: 06-04-2023 BP CONTROLLED (<130/80) BP CONTROLLED (<130/80) [facility] Start: 05-16-2023 End: 05-14-2024 Ct thorax w/o contrast material CT CHEST WO IVCON Radiology Routine Lung nodules Expected: 05/16/2023, Expires: 05/14/2024 [facility] Work Phone: Comment on above: Expected: 05/16/2023, Expires: Start: 05-13-2023 Advance Directive Discussion Advance Directive Discussion [facility] Start: 04-11-2023 Covid-19 Vaccine () Covid-19 Vaccine () [facility] Start: 03-04-2023 End: 06-03-2023 Alpha 1 antitrypsin [Mass/volume] in Serum or Plasma [id number] Lab Routine 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) Expected: 03/04/2023, Expires: 06/03/2023 [facility] Work Phone: Comment on above: Expected: 03/04/2023, Expires: 4 Start: 03-04-2023 End: 06-03-2023 Natriuretic peptide.B prohormone N-Terminal [Mass/volume] in Serum or Plasma NT PRO BNP Lab Routine Dyspnea, unspecified type Expected: 03/04/2023, Expires: 06/03/2023 [facility] Work Phone: Comment on above: Expected: 03/04/2023, Expires: 4 Start: 02-19-2023 ANNUAL PCP TEAM CHRONIC DISEASE VISIT ANNUAL PCP TEAM CHRONIC DISEASE VISIT [facility] Start: 02-19-2023 BP CONTROLLED (<130/80) BP CONTROLLED (<130/80) [facility] Start: 02-08-2023 ANNUAL PCP TEAM CHRONIC DISEASE VISIT ANNUAL PCP TEAM CHRONIC DISEASE VISIT [facility] Start: 02-08-2023 BP CONTROLLED (<130/80) BP CONTROLLED (<130/80) [facility] Start: 02-05-2023 End: 04-07-2023 CBC panel - Blood by Automated count CBC Lab Routine Melena Expected: 02/05/2023, Expires: 04/07/2023 [facility] Work Phone: Comment on above: Expected: 02/05/2023, Expires: 3 Start: 02-01-2023 ANNUAL PCP TEAM CHRONIC DISEASE VISIT ANNUAL PCP TEAM CHRONIC DISEASE VISIT [facility] Start: 02-01-2023 BP CONTROLLED (<130/80) BP CONTROLLED (<130/80) [facility] Start: 02-01-2023 Hepatitis B surface antibody level LDL CHOLESTEROL [facility] Start: 01-11-2023 Influenza vaccination [facility] Start: 12-10-2022 End: 12-20-2023 Ct thorax w/o contrast material [facility] Work Phone: Comment on above: Expected: 12/10/2022, Expires: 4 Start: 11-23-2022 ANNUAL PCP TEAM CHRONIC DISEASE VISIT ANNUAL PCP TEAM CHRONIC DISEASE VISIT [facility] Start: 11-23-2022 BP CONTROLLED (<130/80) BP CONTROLLED (<130/80) [facility] Start: 10-26-2022 BP CONTROLLED (<130/80) BP CONTROLLED (<130/80) [facility] Start: 07-10-2022 COVID-19 VACCINE (6 - Pfizer series) COVID-19 VACCINE (6 - Pfizer series) [facility] Start: 07-05-2022 End: 09-04-2022 CBC panel - Blood by Automated count CBC Lab Routine 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) Expected: 07/05/2022, Expires: 09/04/2022 [facility] Work Phone: Comment on above: Expected: 07/05/2022, Expires: 3 Start: 07-05-2022 End: 09-04-2022 Comprehensive metabolic 2000 panel - Serum or Plasma COMP METABOLIC PANEL Lab Routine 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) Expected: 07/05/2022, Expires: 09/04/2022 [facility] Work Phone: Comment on above: Expected: 07/05/2022, Expires: 3 Start: 07-05-2022 End: 09-04-2022 Lipid 1996 panel - Serum or Plasma LIPID PANEL BASIC Lab Routine 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) Expected: 07/05/2022, Expires: 09/04/2022 [facility] Work Phone: Comment on above: Expected: 07/05/2022, Expires: 3 Start: 07-05-2022 End: 09-04-2022 Magnesium [Mass/volume] in Serum or Plasma MAGNESIUM BLD Lab Routine 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) Expected: 07/05/2022, Expires: 09/04/2022 [facility] Work Phone: Comment on above: Expected: 07/05/2022, Expires: 3 Start: 05-23-2022 ABDOMINAL AORTIC ANEURYSM SCREENING ABDOMINAL AORTIC ANEURYSM SCREENING [facility] Comment on above: Postponed from 1955 (Declined at t his time) Start: 05-23-2022 ANNUAL PCP TEAM CHRONIC DISEASE VISIT ANNUAL PCP TEAM CHRONIC DISEASE VISIT [facility] Start: 05-23-2022 BP CONTROLLED (<130/80) BP CONTROLLED (<130/80) [facility] in Start: 05-23-2022 PNEUMOCOCCAL: 65+ (2 - PCV) PNEUMOCOCCAL: 65+ (2 - PCV) [facility] Start: 05-13-2022 ADVANCE DIRECTIVE DISCUSSION ADVANCE DIRECTIVE DISCUSSION [facility] Start: 02-01-2022 End: 04-03-2022 Hepatitis A virus IgM Ab [Presence] in Serum [facility] Work Phone: Comment on above: Expected: 02/01/2022, Expires: 2 Start: 02-01-2022 End: 04-03-2022 Hepatitis B virus core IgM Ab [Presence] in Serum [facility] Work Phone: Comment on above: Expected: 02/01/2022, Expires: 2 Start: 02-01-2022 End: 04-03-2022 Hepatitis B virus surface Ab [Presence] in Serum by Immunoassay [facility] Work Phone: Comment on above: Expected: 02/01/2022, Expires: 2 Start: 01-25-2022 End: 03-27-2022 Urinalysis complete panel - Urine URINALYSIS, WITH MICROSCOPIC Lab Routine Recurrent UTI (urinary tract infection) Expected: 01/25/2022, Expires: 03/27/2022 [facility] Work Phone: Comment on above: Expected: 01/25/2022, Expires: 2 Start: 01-11-2022 Influenza vaccination INFLUENZA (#1) [facility] Start: 12-04-2021 End: 02-03-2022 Urinalysis complete panel - Urine UA WITH CULTURE IF INDICATED Lab Routine UTI symptoms Expected: 12/04/2021, Expires: 02/03/2022 [facility] Work Phone: Comment on above: Expected: 12/04/2021, Expires: 2 Start: 11-23-2021 End: 01-23-2022 CBC W Auto Differential panel - Blood CBC + DIFF Lab Routine Screening for deficiency anemia Expected: 11/23/2021, Expires: 01/23/2022 [facility] Work Phone: Comment on above: Expected: 11/23/2021, Expires: 2 Start: 11-23-2021 End: 01-23-2022 Cobalamin (Vitamin B12) [Mass/volume] in Serum or Plasma VITAMIN B12 BLOOD Lab Routine Headaches due to old head trauma Essential tremor Expected: 11/23/2021, Expires: 01/23/2022 [facility] Work Phone: Comment on above: Expected: 11/23/2021, Expires: 2 Start: 11-23-2021 End: 01-23-2022 Comprehensive metabolic 2000 panel - Serum or Plasma COMP METABOLIC PANEL Lab Routine Screening for diabetes mellitus Expected: 11/23/2021, Expires: 01/23/2022 [facility] Work Phone: Comment on above: Expected: 11/23/2021, Expires: 2 Start: 11-23-2021 End: 01-23-2022 Lipid 1996 panel - Serum or Plasma LIPID PANEL BASIC Lab Routine Screening for lipid disorders Expected: 11/23/2021, Expires: 01/23/2022 [facility] Work Phone: Comment on above: Expected: 11/23/2021, Expires: 2 Start: 11-23-2021 End: 01-23-2022 Magnesium [Mass/volume] in Serum or Plasma MAGNESIUM BLD Lab Routine Headaches due to old head trauma Essential tremor Expected: 11/23/2021, Expires: 01/23/2022 [facility] Work Phone: Comment on above: Expected: 11/23/2021, Expires: Start: 11-04-2021 COVID-19 VACCINE (5 - Booster for Pfizer series) COVID-19 VACCINE (5 - Booster for Pfizer series) [facility] Start: 07-15-2021 Hepatitis B surface antibody level LDL CHOLESTEROL [facility] Start: 06-27-2021 COVID-19 VACCINE (4 - Booster for Pfizer series) COVID-19 VACCINE (4 - Booster for Pfizer series) [facility] Start: 05-24-2021 Adult depression screening assessment DEPRESSION SCREENING [facility] Start: 05-13-2021 ADVANCE DIRECTIVE DISCUSSION ADVANCE DIRECTIVE DISCUSSION [facility] Start: 2013 RSV Vaccine (1 - 1-dose 60+ series) RSV Vaccine (1 - 1-dose 60+ series) [facility] Start: 2003 SHINGRIX VACCINE (1 of 2) SHINGRIX VACCINE (1 of 2) [facility] Start: 07-11-2001 Medicare Annual Wellness Visit Medicare Annual Wellness Visit [facility] Start: 1998 COLOGUARD (FIT-DNA) COLOGUARD (FIT-DNA) [facility] Start: 1998 Colonoscopy COLONOSCOPY [facility] Start: 1998 COLORECTAL CANCER SCREENING COLORECTAL CANCER SCREENING [facility] Start: [address] COLONOGRAPHY [facility] Start: 1998 FECAL OCCULT BLOOD FECAL OCCULT BLOOD [facility] Start: 1998 Screening for malignant neoplasm of colon [facility] Start: 1998 SIGMOIDOSCOPY SIGMOIDOSCOPY [facility] Start: 1983 Zoledronic acid therapy ALPHA-1 ANTITRYPSIN DEFICIENCY SCREENING [facility] Start: 1971 BP CONTROLLED (<130/80) BP CONTROLLED (<130/80) [facility] in Start: 1953 ABDOMINAL AORTIC ANEURYSM SCREENING ABDOMINAL AORTIC ANEURYSM SCREENING [facility] Start: 1953 Abdominal aortic aneurysm screening Abdominal Aortic Aneurysm Screening [facility] Application cast osorio d & lower forearm gauntlet APPLY HAND/WRIST CAST Procedures Routine Closed boxer's fracture, initial encounter Ordered: 10/06/2024 [facility] Work Phone: Comment on above: Ordered: 10/06/2024 End: 09-30-2025 CBC panel - Blood by Automated count COMPLETE BLOOD COUNT Lab Routine Acute hypoxic respiratory failure (HCC) Hypersensitivity pneumonitis (HCC) Every other week for 8 Occurrences starting 09/30/2024 until 09/30/2025 [facility] Work Phone: Comment on above: Every other week for 8 Occurrences start ing 09/30/2024 until 09/30/2025 End: 07-14-2025 CBC W Auto Differential panel - Blood COMPLETE BLOOD COUNT AND DIFFERENTIAL Lab Routine ILD (interstitial lung disease) (HCC) Once per week for 4 Occurrences starting 07/14/2024 until 07/14/2025 [facility] Comment on above: Once per week for 4 Occurrences starting 07/14/2024 until 07/14/2025 Clostridioides diffi cile toxin genes [Presence] in Stool by EVELIO with probe detection C. DIFFICILE PCR Lab Routine Diarrhea, unspecified type Ordered: 09/11/2023 [facility] Comment on above: Ordered: 09/11/2023 End: 07-14-2025 Comprehensive metabolic 2000 panel - Serum or Plasma COMPREHENSIVE METABOLIC PANEL Lab Routine ILD (interstitial lung disease) (HCC) Once per week for 4 Occurrences starting 07/14/2024 until 07/14/2025 [facility] Work Phone: Comment on above: Once per week for 4 Occurrences starting 07/14/2024 until 07/14/2025 End: 09-30-2025 Comprehensive metabolic 2000 panel - Serum or Plasma COMPREHENSIVE METABOLIC PANEL Lab Routine Acute hypoxic respiratory failure (HCC) Hypersensitivity pneumonitis (HCC) Every other week for 8 Occurrences starting 09/30/2024 until 09/30/2025 [facility] Comment on above: Every other week for 8 Occurrences start ing 09/30/2024 until 09/30/2025 COVID & INFLUENZA A/ B & RSV PCR, ROUTINE COVID & INFLUENZA A/B & RSV PCR, ROUTINE Microbiology Routine Interstitial pulmonary disease (HCC) Wheezing Acute on chronic hypoxic respiratory failure (HCC) Ordered: 07/13/2024 [facility] Work Phone: Comment on above: Ordered: 07/13/2024 End: 08-12-2025 CT Chest WO contrast CT CHEST WO IVCON Radiology Routine Interstitial pulmonary disease (HCC) Wheezing Acute on chronic hypoxic respiratory failure (HCC) 1 Occurrences starting 07/13/2024 until 08/12/2025 [facility] Comment on above: 1 Occurrences starting 07/13/2024 until 08/12/2025 CT Chest WO contrast CT CHEST WO IVCON Radiology Routine Interstitial pulmonary disease (HCC) Wheezing Acute on chronic hypoxic respiratory failure (HCC) 07/16/2024 2:21 PM EST [facility] Work Phone: End: 02-01-2023 ECG COMPLETE ECG COMPLETE ECG Routine Chest pain, unspecified type 1 Occurrences starting 02/01/2022 until 02/01/2023 [facility] Work Phone: Comment on above: 1 Occurrences starting 02/01/2022 until 02/01/2023 End: 02-12-2023 Echocardiography ECHO Cardiology Routine Chest pain, unspecified type Chronic congestive heart failure, unspecified heart failure type (HCC) SOB (shortness of breath) on exertion 1 Occurrences starting 02/12/2022 until 02/12/2023 [facility] Work Phone: Comment on above: 1 Occurrences starting 02/12/2022 until 02/12/2023 End: 03-27-2025 Echocardiography ECHO Cardiology Routine Pulmonary arterial hypertension (HCC) 1 Occurrences starting 03/27/2024 until 03/27/2025 [facility] Comment on above: 1 Occurrences starting 03/27/2024 until 03/27/2025 End: 04-23-2024 EGD DIAGNOSTIC EGD DIAGNOSTIC Endoscopy Routine Chronic GERD Melena 1 Occurrences starting 04/23/2023 until 04/23/2024 [facility] Work Phone: Comment on above: 1 Occurrences starting 04/23/2023 until 04/23/2024 Electrocardiogram EKG BIC Routin e 02/08/2022 4:17 PM EDT [facility] ENTERIC BACTERIAL PA SANTI BY PCR ENTERIC BACTERIAL PANEL BY PCR Lab Routine Diarrhea, unspecified type Ordered: 09/11/2023 [facility] Comment on above: Ordered: 09/11/2023 Im adm prq id subq/i m njxs 1 vaccine IMADM PRQ ID SUBQ/IM [id number] 1 VACC Immunization/Injection Routine Encounter for immunization Ordered: 02/01/2022 [facility] Work Phone: Comment on above: Ordered: 02/01/2022 Im adm prq id subq/i m njxs 1 vaccine IMADM PRQ ID SUBQ/IM NJXS 1 VACC Immunization/Injection Routine Encounter for immunization Ordered: 03/30/2024 [facility] Work Phone: Comment on above: Ordered: 03/30/2024 End: 10-08-2024 LUNG DIFFUSION CAPACITY (DLCO) LUNG DIFFUSION CAPACITY (DLCO) PFT Routine ILD (interstitial lung disease) (HCC) 1 Occurrences starting 09/09/2023 until 10/08/2024 [facility] Comment on above: 1 Occurrences starting 09/09/2023 until 10/08/2024 End: 05-22-2025 LUNG DIFFUSION CAPACITY (DLCO) LUNG DIFFUSION CAPACITY (DLCO) PFT Routine Chronic respiratory failure with hypoxia (HCC) 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) Hypersensitivity pneumonitis (HCC) 1 Occurrences starting 04/22/2024 until 05/22/2025 [facility] Comment on above: 1 Occurrences starting 04/22/2024 until 05/22/2025 End: 07-24-2025 LUNG DIFFUSION CAPACITY (DLCO) LUNG DIFFUSION CAPACITY (DLCO) PFT Routine Hypersensitivity pneumonitis (HCC) Chronic respiratory failure with hypoxia (HCC) 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) Acute hypoxic respiratory failure (HCC) Chronic obstructive pulmonary disease with acute exacerbation (HCC) 1 Occurrences starting 06/24/2024 until 07/24/2025 [facility] Comment on above: 1 Occurrences starting 06/24/2024 until 07/24/2025 End: 12-11-2025 LUNG DIFFUSION CAPACITY (DLCO) LUNG DIFFUSION CAPACITY (DLCO) PFT Routine Hypersensitivity pneumonitis (HCC) Chronic respiratory failure with hypoxia (HCC) 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) 1 Occurrences starting 11/11/2024 until 12/11/2025 [facility] Comment on above: 1 Occurrences starting 11/11/2024 until 12/11/2025 End: 10-08-2024 LUNG VOLUMES LUNG VOLUMES PFT Routine ILD (interstitial lung disease) (HCC) 1 Occurrences starting 09/09/2023 until 10/08/2024 [facility] Comment on above: 1 Occurrences starting 09/09/2023 until 10/08/2024 End: 03-14-2023 NM CARDIAC PERF STRESS/PHARM NM CARDIAC PERF STRESS/PHARM Radiology Routine Chest pain, unspecified type SOB (shortness of breath) on exertion 1 Occurrences starting 02/12/2022 until 03/14/2023 [facility] Work Phone: Comment on above: 1 Occurrences starting 02/12/2022 until 03/14/2023 NM CARDIAC PERF STRESS/PHARM NM CARDIAC PERF STRESS/PHARM Radiology Routine Chest pain, unspecified type SOB (shortness of breath) on exertion 06/19/2022 11:35 AM EST [facility] Work Phone: Ova and parasites identified in Unspecified specimen by Light microscopy OVA + PARA MICROSCOPIC Microbiology Routine Diarrhea, unspecified type Ordered: 09/11/2023 [facility] Work Phone: Comment on above: Ordered: 09/11/2023 OXIMETRY - NOCTURNAL OXIMETRY - NOCTURNAL Procedures Routine Chronic hypoxemic respiratory failure (HCC) Ordered: 03/27/2024 [facility] Comment on above: Ordered: 03/27/2024 OXIMETRY - NOCTURNAL OXIMETRY - NOCTURNAL Procedures Routine Chronic respiratory failure with hypoxia (HCC) Ordered: 04/22/2024 [facility] Work Phone: Comment on above: Ordered: 04/22/2024 End: 02-27-2025 OXIMETRY WITH AMBULATION OXIMETRY WITH AMBULATION PFT Routine Interstitial pulmonary disease (HCC) 1 Occurrences starting 01/29/2024 until 02/27/2025 [facility] Comment on above: 1 Occurrences starting 01/29/2024 until 02/27/2025 Removal impacted cer umen irrigation/lvg unilat AMBULATORY EAR LAVAGE/IRRIGATION Procedures Routine Bilateral impacted cerumen Ordered: 09/03/2023 [facility] Work Phone: Comment on above: Ordered: 09/03/2023 End: 04-23-2024 Screening colonoscopy COLONOSCOPY SCREENING Endoscopy Routine Screening for colon cancer 1 Occurrences starting 04/23/2023 until 04/23/2024 [facility] Work Phone: Comment on above: 1 Occurrences starting 04/23/2023 until 04/23/2024 End: 06-27-2024 Screening colonoscopy COLONOSCOPY SCREENING Endoscopy Routine Screening for colon cancer 1 Occurrences starting 06/27/2023 until 06/27/2024 [facility] Work Phone: Comment on above: 1 Occurrences starting 06/27/2023 until 06/27/2024 End: 05-22-2025 SPIROMETRY BASELINE ONLY SPIROMETRY BASELINE ONLY PFT Routine Chronic respiratory failure with hypoxia (HCC) 1 Occurrences starting 04/22/2024 until 05/22/2025 [facility] Comment on above: 1 Occurrences starting 04/22/2024 until 05/22/2025 End: 07-24-2025 SPIROMETRY BASELINE ONLY SPIROMETRY BASELINE ONLY PFT Routine Hypersensitivity pneumonitis (HCC) Chronic respiratory failure with hypoxia (HCC) 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) Acute hypoxic respiratory failure (HCC) Chronic obstructive pulmonary disease with acute exacerbation (HCC) 1 Occurrences starting 06/24/2024 until 07/24/2025 [facility] Work Phone: Comment on above: 1 Occurrences starting 06/24/2024 until 07/24/2025 End: 12-11-2025 SPIROMETRY BASELINE ONLY SPIROMETRY BASELINE ONLY PFT Routine Hypersensitivity pneumonitis (HCC) Chronic respiratory failure with hypoxia (HCC) 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) 1 Occurrences starting 11/11/2024 until 12/11/2025 [facility] Comment on above: 1 Occurrences starting 11/11/2024 until 12/11/2025 SURGICAL PATHOLOGY [facility] Work Phone: Comment on above: Release Upon Ordering for 1 Occurrences starting 06/20/2023, 1 completed UA DIP, URINE (POC) UA DIP, URIN E (POC) Lab Routine Dysuria Ordered: 02/19/2022 [facility] Work Phone: Comment on above: Ordered: 02/19/2022 End: 04-16-2024 US [facility]OTID [facility] Vascular Lab Routine Bilateral carotid artery stenosis 1 Occurrences starting 04/16/2023 until 04/16/2024 [facility] Work Phone: Comment on above: 1 Occurrences starting 04/16/2023 until 04/16/2024 End: 08-28-2024 US Lower extremity artery - bilateral PVR LEG [facility] Vascular Lab Routine Peripheral arterial disease (HCC) 1 Occurrences starting 08/29/2023 until 08/28/2024 [facility] Work Phone: Comment on above: 1 Occurrences starting 08/29/2023 until 08/28/2024 End: 08-27-2025 XR Chest PA and Lateral XR CHEST 2V FRONTAL/LAT Radiology Routine Wheezing Acute on chronic hypoxic respiratory failure (HCC) Community acquired bacterial pneumonia 1 Occurrences starting 07/28/2024 until 08/27/2025 [facility] Work Phone: Comment on above: 1 Occurrences starting 07/28/2024 until 08/27/2025 End: 10-21-2025 XR Hand - right PA and Lateral and Oblique XR HAND GENERAL 3V PA/LAT/OBL RIGHT Radiology Routine Hand injury, right, initial encounter Swelling of right hand 1 Occurrences starting 09/21/2024 until 10/21/2025 [facility] Work Phone: Comment on above: 1 Occurrences starting 09/21/2024 until 10/21/2025 XR Hand - right PA a nd Lateral and Oblique XR HAND GENERAL 3V PA/LAT/OBL RIGHT Radiology Routine Hand injury, right, initial encounter Swelling of right hand 09/21/2024 12:42 PM EDT [facility] Work Phone: End: 12-20-2024 XR Toes - left 3 Views XR TOE AP/LAT/OBL LEFT Radiology Routine Ulcer of toe of left foot, limited to breakdown of skin (HCC) 1 Occurrences starting 11/21/2023 until 12/20/2024 [facility] Work Phone: Comment on above: 1 Occurrences starting 11/21/2023 until 12/20/2024 XR Toes - left 3 Views XR TOE AP /LAT/OBL LEFT Radiology Routine Ulcer of toe of left foot, limited to breakdown of skin (HCC) 11/21/2023 11:32 AM EDT [facility] Immunizations Immunization Date Immunization Notes Care Provider Connie burks 03-30-2024 COVID-19 vaccine, unspecified formulation Alma Gill APRN.SPECIALTY THERAPIST Work Phone: [facility] 03-30-2024 influenza, high dose seasonal, preservative-free Alma Gill APRN.SPECIALTY THERAPIST Work Phone: [facility] 03-30-2024 influenza virus vacc ine, unspecified formulation Alma Gill APRN.SPECIALTY THERAPIST Work Phone: [facility] 09-03-2023 zoster RZV vaccine, PF, (SHINGRIX) 50 mcg/0.5 mL injection Alma Gill APRN.SPECIALTY THERAPIST Work Phone: [facility] 08-29-2023 COVID-19 original vaccine, booster dose, monovalent (MODERNA) No Pcp WINDOWS SECURITY ENGINEER [facility] 08-29-2023 respiratory syncytia l virus (RSV) vaccine, adjuvanted (AREXVY) No Pcp WINDOWS SECURITY ENGINEER [facility] 02-14-2023 COVID-19 vaccine, ag e 12+ yr, season (PFIZER-BIONTECH) Lilian Rodríguez PA-C Work Phone: [facility] Work Phone: 02-14-2023 COVID-19 vaccine, ag e 12+ yr, bivalent ([employer]-BIONTCover Lockscreen) Alma Queden WINDOWS SECURITY ENGINEER.SPECIALTY THERAPIST Work Phone: [facility] 02-14-2023 influenza (aIIV4) vaccine, age 65+ yr, quadrivalent, PF (FLUAD QUAD) Lilian Rodríguez PA-C Work Phone: [facility] Work Phone: 02-14-2023 influenza (HD-IIV4) vaccine, age 65+ yr, high dose, quadrivalent, PF (FLUZONE HIGH-DOSE) Alma Queden WINDOWS SECURITY ENGINEER.SPECIALTY THERAPIST Work Phone: [facility] 02-14-2023 influenza virus vacc ine, unspecified formulation Alma Queden WINDOWS SECURITY ENGINEER.SPECIALTY THERAPIST Work Phone: [facility] 11-08-2022 pneumococcal (PCV20) vaccine, 20 valent (PREVNAR 20) [place] Work Phone: [facility] 11-08-2022 pneumococcal Conjuga te, unspecified formulation Nurse [place] Work Phone: [facility] Work Phone: 03-12-2022 COVID-19 booster vaccine, age 12+ yr, bivalent (PFIZER-BIONTECH) Alma Queden WINDOWS SECURITY ENGINEER.SPECIALTY THERAPIST Work Phone: [facility] 02-01-2022 influenza, high-dose , quadrivalent vaccine (FLUZONE HIGH DOSE QUADRIVALENT) Almamassiel Gill WINDOWS SECURITY ENGINEER.SPECIALTY THERAPIST Work Phone: [facility] 02-01-2022 influenza virus vacc ine, unspecified formulation Alma Queden WINDOWS SECURITY ENGINEER.SPECIALTY THERAPIST Work Phone: [facility] 09-09-2021 COVID-19 original vaccine, age 12+ yr, monovalent (PFIZER-BIONTECH - GUZMAN TOP) Alma Queden WINDOWS SECURITY ENGINEER.SPECIALTY THERAPIST Work Phone: [facility] 05-23-2021 pneumococcal polysaccharide vaccine, 23 valent Palak Snyder MD Work Phone: [facility] 02-24-2021 COVID-19 original vaccine, age 12+ yr, monovalent (PFIZER-BIONTECH - PURPLE TOP) Alma Gill WINDOWS SECURITY ENGINEER.SPECIALTY THERAPIST Work Phone: [facility] 01-17-2021 influenza, high-dose , quadrivalent vaccine (FLUZONE HIGH DOSE QUADRIVALENT) Palak Snyder MD Work Phone: [facility] 08-18-2020 COVID-19 original vaccine, age 12+ yr, monovalent (PFIZER-BIONTECH - PURPLE TOP) Alma Gill WINDOWS SECURITY ENGINEER.SPECIALTY THERAPIST Work Phone: [facility] 07-27-2020 COVID-19 vaccine, ag e 12+ yr (PFIZER-BIONTECH - PURPLE TOP) Palak Snyder MD Work Phone: [facility] 05-22-2020 tetanus toxoid, redu ortega diphtheria toxoid, and acellular pertussis vaccine, adsorbed Palak Snyder MD Work Phone: [facility] 03-14-2020 influenza, high dose seasonal, preservative-free Palak Snyder MD Work Phone: [facility] Payers Date Payer Category Payer Self-pay 2021 [facility] ANISA HUNT DICARE SUPPLEMENT Member Subscriber Plan / Payer (Effective 2021-Present) Name: Mars Peterson Relation to Subscriber: Self Name: Mars Peterson Payer ID: [id number] (NAIC) Group ID: [id number] Type: Indemnity Address: [address] [place] [id number] 2021 Unknown [employer]ISA [employer]UNT DICARE SUPPLEMENT [id number] 2021-Present [phone] [id number] [place] [address] Indemnity [id number] 2021 Unknown 2021 Unknown [id number] 2001 Medicare MEDICARE MEDICAR E A AND B [id number] 2001-Present [phone] [place] [address] Medicare [id number] 2001 Medicare [id number] 2001 Medicare [id number] Unknown [id number] Unknown [id number] Social History Date Type Detail Facility Start: 05-22-2020 End: 01-29-2024 Tobacco smoking status NHIS Ex-smoker [facility] Start: 05-13-1961 End: 05-13-2001 History of tobacco use Current smoker [facility] Start: 05-22-2020 End: 01-29-2024 Tobacco use and exposure Former smokeless tobacco user [facility] History of tobacco use Chews Tobacco [facility] Start: 05-23-2021 End: 12-07-2024 Alcohol intake Current drinker of alcohol (finding) [facility] Start: 05-22-2020 History SDOH Alcohol Comment Occasional [facility] Start: 1955 Sex Assigned At Not on file [facility] Tobacco smoking consumption unknown [facility] Start: 09-22-2021 End: 03-19-2022 Exposure to SARS-CoV-2 (event) Not sure [facility] Start: 1955 Sex Assigned At Male [facility] Start: 05-13-1961 End: 05-13-2001 History of tobacco use Cigarette Smoker [facility] Start: 11-20-2022 End: 08-17-2024 Cigarettes smoked current (pack per day) - Reported 2 [facility] Work Phone: Start: 11-20-2022 End: 08-17-2024 Tobacco use panel [facility] Work Phone: Start: 05-10-2020 Adult Depression Screening Assessment 0 [facility] Work Phone: Start: 11-22-2021 Gender identity Identifies as male gender (finding) [facility] Start: 11-22-2021 Sexual orientation Heterosexual (wilfred bryant) [facility] Has the electric, gas, oil, or water [employer] threatened to shut off services in your home in past 12Mo No [facility] (I/We) worried whether (my/our) food would run out before (I/we) got money to buy more. Never true [facility] How hard is it for you to pay for the very basics like food, housing, medical care, and heating Not very hard [facility] Work Phone: Start: 07-29-2024 Sex Male (finding) [facility] NEGATED: Highlighted row - - [facility] [address] Work Phone: Goals Date Patient Goal Desired Activity /State Personal health goal Functional Status Date Assessment Result Facility 10-16-2024 Are you deaf, or do you have serious difficulty hearing Yes 10/16/2024 3:47 PM Ivania Mcdonald RN Yes [facility] 10-16-2024 Are you blind, or do you have serious difficulty seeing, even when wearing glasses No 10/16/2024 3:47 PM Ivania Mcdonald RN No [facility] 10-16-2024 Do you have serious difficulty walking or climbing stairs Yes 10/16/2024 3:47 PM Ivania Mcdonald RN Yes [facility] 10-16-2024 Do you have difficul ty dressing or bathing Yes 10/16/2024 3:47 PM Ivania Mcdonald, SERGEY Yes [facility] 10-16-2024 Because of a physica l, mental, or emotional condition, do you have difficulty doing errands alone such as visiting a physician's office or shopping Yes 10/16/2024 3:47 PM Ivania Mcdonald, SERGEY Yes [facility] 01-16-2024 Are you deaf, or do you have serious difficulty hearing Yes 01/16/2024 1:57 PM Darlin Clarke, SERGEY Yes [facility] 01-16-2024 Are you blind, or do you have serious difficulty seeing, even when wearing glasses No 01/16/2024 1:57 PM Darlin Clarke, SERGEY No [facility] 01-16-2024 Do you have serious difficulty walking or climbing stairs Yes 01/16/2024 1:57 PM Darlin Clarke, SERGEY Yes [facility] 01-16-2024 Do you have difficul ty dressing or bathing No 01/16/2024 1:57 PM Darlin Clarke, SERGEY No [facility] 01-16-2024 Because of a physica l, mental, or emotional condition, do you have difficulty doing errands alone such as visiting a physician's office or shopping Yes 01/16/2024 1:57 PM Darlin Clarke, SERGEY Yes [facility] NEGATED: Highlighted row Functional performance Functional status health issues are not documented Disease [facility] [address] Work Phone: Mental Status Date Assessment Result Facility 10-16-2024 Because of a physical, mental, or emotional condition, do you have serious difficulty concentrating, remembering, or making decisions Yes 10/16/2024 3:47 PM Ivania Mcdonald RN Yes [facility] 01-16-2024 Because of a physical, mental, or emotional condition, do you have serious difficulty concentrating, remembering, or making decisions No 01/16/2024 1:57 PM Darlin Clarke RN No [facility] NEGATED: Highlighted row Cognitive function [Interpretation] Cognitive status health issues are not documented Disease [facility] 300 Work Phone: Clinical Notes 08-16-2021 to 03-15-2025 Telephone Encounter - Priya Pedersen MA - 01/25/2025 12:06 PM EDTTelephone Encounter - Priya Pedersen MA - 01/25/2025 12:06 PM EDTTelephone Encounter - Priya Pedersen MA - 01/19/2025 2:18 PM EDT Note Date & Type Note Facility 03-15-2025 Note [facility] 03-15-2025 Note [facility] 02-17-2025 Note [facility] 02-11-2025 Note HNO ID: [id number] Author: ALMA GILL APRN.SPECIALTY THERAPIST Service: ? Author Type: Nurse Practitioner Type: [...] His is present with him today.Recording using Holla@Me software for draft documentation of the visit was discussed with the patient/authorized registration representative; all questions welcomed and answered. Patient/authorized registration representative agreed to proceed Pulmonary Fibrosis: - Recent approval for Ofev, not yet started. - Previous medication caused hospitalization; discontinued. - Recent CT scan performed today. - Follow-up with Dr. Simon scheduled next week. - Persistent productive cough with thick, gummy sputum x7 days. - Completed course of [...] a week. Primarily because he was urinating too much. Musculoskeletal Pain: - Reports pain in shoulders, [...] and supplements were also reviewed. Recording using Holla@Me software for draft documentation of the visit was discussed with the patient/authorized registration representative; all questions welcomed and answered. Patient/authorized registration representative agreed to proceed Pneumonia and Sepsis: [...] had his Imuran recently increased by his second shift supervisor but has had no other recent changes to his medications that he knows of. Socially, the patient denies nicotine use, alcohol use, or recreational drug use. Furthermore he denies headache, changes in his vision/hearing, trouble swallowing, chest pain, shortness of breath, abdominal pain, constipa (more content not included)... [facility] 02-11-2025 Note HNO ID: [id number] Author: CASH MCDANIEL CT Service: Radiology Author [...] PATIENT PRESENTS WITH AN IMPLANTABLE OR ATTACHED RN ACUTE: No RADIOLOGY DEPARTMENT: CT; Exam(s) Completed: Chest. Anesthesia: No PERIPHERAL IV DATA: Not applicable SIGNED BY: KERVIN Vela February 11, 2025 11:46 AM [facility] 01-25-2025 Telephone encounter Note Form received from Chung placed on signing trajose de jesus Pedersen MA [facility] 01-25-2025 Miscellaneous Notes Form received from Chung placed on signing trajose de jesus Pedersen MA documented in this encounter [facility] 01-19-2025 Telephone encounter Note Faxed Priya Pedersen MA [facility] 01-19-2025 Miscellaneous Notes Faxed Priya Pedersen MA [facility] PT added. Please fax referral to [facility]. Thanks! documented in this encounter [facility] 01-19-2025 Telephone encounter Note [facility] PT added. Please fax referral to [facility]. Thanks! [facility] 01-12-2025 Telephone encounter Note pharmacy electronically requesting [...] Please review and advise. Precious Lacy MA [facility] 01-12-2025 Miscellaneous Notes pharmacy electronically requesting refills [...] Precious Lacy MA documented in this encounter [facility] 01-07-2025 Telephone encounter Note Faxed Priya Pedersen MA [facility] 01-07-2025 Miscellaneous Notes Faxed Priya Pedersen MA Please fax new referral for SN to [facility] to continue services. documented in this encounter [facility] 01-05-2025 Telephone encounter Note Please fax new referral for SN to [facility] to continue services. [facility] 12-21-2024 Telephone encounter Note pharmacy electronically requesting refills as follows: Last seen 11/10/24 . Last refill 06/23/24 . Requested Prescriptions Pending Prescriptions Disp Refills metoprolol succinate ER (TOPROL XL) 25 mg 24 hr tablet [Pharmacy Med Name: METOPROLOL SUCC ER 25 MG TAB] 90 tablet 1 Sig: TAKE 1 TABLET BY MOUTH EVERY DAY Please review and advise. Precious Lacy MA [facility] 12-21-2024 Miscellaneous Notes pharmacy electronically requesting refills [...] Precious Lacy MA documented in this encounter [facility] 12-07-2024 Note [facility] 12-07-2024 History of Presen t illness Narrative [...] edema or varicosities noted. Non-Invasive Vascular Laboratory [facility] Lower Extremity Arterial Physiology Study Bilateral/Complete Date [...] Normal at rest. Technologist: Davina Vaughn RVT, [facility] [[email or web address]] Ordering physician: KATELYNN KNOWLES Interpreting physician: ELPIDIO [...] Shanda Simon LPN documented in this encounter [facility] 12-07-2024 Note [facility] 12-01-2024 Telephone encounter Note Faxed Priya Pedersen MA [facility] 12-01-2024 Miscellaneous Notes Faxed Priya Pedersen MA Form received cinthia asencio placed on signing trajose de jesus Pedersen MA documented in this encounter [facility] 12-01-2024 Telephone encounter Note Form received cinthia asencio placed on signing tray Priya Pedersen MA [facility] 11-26-2024 Telephone encounter Note Form received from Chung placed on signing trajose de jesus Pedersen MA [facility] 11-26-2024 Miscellaneous Notes Form received from Chung placed on signing tray Priya Pedersen MA documented in this encounter [facility] 11-23-2024 Note HNO ID: [id number] Author: LILIAN SETHI RN Service: ? Author Type: Registered Nurse Type: Progress Notes Filed: 11/23/2024 16:06 Note Text: AG TRANSITIONAL CARE MANAGEMENT (TCM) FOLLOW-UP NOTE Patient identified by name and date of : NO Diagnosis: N/A Summary: TCM RN called for TCM f/u (D/C 10/16/24) - left msg. Health leads screening tool questions performed? 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 Signature: Lilian Sethi RN November 23, 2024 [facility] 11-23-2024 History of Presen t illness Narrative AG TRANSITIONAL CARE MANAGEMENT (TCM) FOLLOW-UP NOTE Patient identified by name and date of : NO Diagnosis: N/A Summary: TCM RN called for TCM f/u (D/C 10/16/24) - left msg. Health leads screening tool questions performed? 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 Signature: Lilian Sethi RN November 23, 2024 documented in this encounter [facility] 11-23-2024 Note Patient Outreach (AG ACM) MARS PETERSON ([id number]) 1955 M DEF Date Time Provider Department 11/23/24 LILIAN SETHI [facility] During your visit today, we recorded the following information about you: Lilian Sethi RN 11/23/2024 4:06 PM Signed [facility] TRANSITIONAL CARE MANAGEMENT (TCM) FOLLOW-UP NOTE Patient identified by name and date of : NO Diagnosis: N/A Summary: TCM RN called for TCM f/u (D/C 10/16/24) - left msg. Health leads screening tool questions performed? 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 [facility] 11-16-2024 Telephone encounter Note pharmacy electronically requesting refills as follows: Last seen 11/10/24 . Last refill 05/25/24 . Requested Prescriptions Pending Prescriptions Disp Refills pantoprazole DR (PROTONIX) 40 mg tablet [Pharmacy Med Name: PANTOPRAZOLE SOD DR 40 MG TAB] 90 tablet 1 Sig: TAKE 1 TABLET BY MOUTH EVERY DAY Please review and advise. Precious Lacy MA [facility] 11-16-2024 Miscellaneous Notes pharmacy electronically requesting refills as follows: Last seen 11/10/24 . Last refill 05/25/24 . Requested Prescriptions Pending Prescriptions Disp Refills pantoprazole DR (PROTONIX) 40 mg tablet [Pharmacy Med Name: PANTOPRAZOLE SOD DR 40 MG TAB] 90 tablet 1 Sig: TAKE 1 TABLET BY MOUTH EVERY DAY Please review and advise. Precious Lacy MA documented in this encounter [facility] 11-11-2024 Note [facility] 11-11-2024 History of Presen t illness Narrative Images from the original note were not included. Respiratory [place] Mars Peterson is a 69 year old male here for a follow up with the [facility] Interstitial Lung Disease Team. 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 Pulmonary Function Data PFT available since last visit: Yes PFTs: Date FVC FEV1 FEV1/FVC DLCO TLC RV RV/TLC BD? 11/11/2024 2.11/48 1.34/41 0.64 8.73/32 04/27/24 2.45/56 1.85/56 0.75 12.44/46 11/20/22 3.29/74 2.09/63 [...] with oral acyclovir [place] + dizziness - protective services social worker reported Aflutter and PVCs. Has established subsea engineer Admitted with fevers and nausea/vomiting - azathioprine [...] 1. Bronchiectasis without acute exacerbation ([facility]) J47.9 FLUTTER VALVE predniSONE (DELTASONE) 5 mg tablet guaiFENesin (MUCINEX) 600 mg 12 hr tablet 2. Hypersensitivity pneumonitis ([facility]) J67.9 predniSONE (DELTASONE) 5 mg tablet guaiFENesin (MUCINEX) 600 mg 12 hr tablet azaTHIOprine (IMURAN) 50 mg tablet 3. Chronic respiratory failure with hypoxia ([facility]) J96.11 predniSONE (DELTASONE) 5 mg tablet guaiFENesin (MUCINEX) 600 mg 12 hr tablet 4. 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 Recording using Holla@Me software for draft documentation of the visit was discussed with the patient/authorized registration representative; all questions welcomed and answered. Patient/authorized registration representative agreed to proceed Pneumonia and Sepsis: [...] had his Imuran recently increased by his second shift supervisor but has had no other recent changes to his medications that he knows of. Socially, the patient denies nicotine use, alcohol use, or recreational drug use. Furthermore he denies headache, changes in his vision/hearing, trouble swallowing, chest pain, shortness of breath, abdominal pain, constipation/hematochezia, urinary changes, new numbness/tingling, or new swelling. 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 Diabetes Care. 2016.39(Suppl 1). BUN [...] (H) 74 - 99 mg/dL Final The [place] [employer] (ADA) provides guidance for cutoff [...] Standards of Medical Care in Diabetes 2016, [place] [employer]. Diabetes Care. 2016.39(Suppl 1). BUN [...] Monocytes % 11/02/2024 11.6 % Final Abs [place] 11/02/2024 0.90 (H) <0.87 k/uL Final Eosinophils [...] Alma Gill APRN.EVANS documented in this encounter [facility] 11-10-2024 Note HNO ID: [id number] Author: ALMA GILL APRN.CNP Service: ? Author [...] and supplements were also reviewed. Recording using Holla@Me software for draft documentation of the visit was discussed with the patient/authorized registration representative; all questions welcomed and answered. Patient/authorized registration representative agreed to proceed Pneumonia and Sepsis: [...] had his Imuran recently increased by his second shift supervisor but has had no other recent changes to his medications that he knows of. Socially, the patient denies nicotine use, alcohol use, or recreational drug use. Furthermore he denies headache, changes in his vision/hearing, trouble swallowing, chest pain, shortness of breath, abdominal pain, constipation/hematochezia, urinary changes, new numbness/tingling, or new swelling. In the [place] ED the patient was found to be [...] is being transferred to hospital medicine at [place] for further workup and management of his [...] treatment for pneumon (more content not included)... [facility] 11-10-2024 Telephone encounter Note Royer given verbal order. Suzanne Almaguer MA [facility] 11-10-2024 Miscellaneous Notes Royer given verbal order. Suzanne Almaguer MA Verbal order given. Royer physical therapist with [employer] message stating he saw patient today for recertification and plans to see patient twice a week for 3 weeks then once a week for 4 weeks. Requesting verbal okay for plan of care. States when calling back okay to leave message. Please advise. Precious Lacy MA documented in this encounter [facility] 11-09-2024 Telephone encounter Note Verbal order given. [facility] 11-09-2024 Telephone encounter Note Royer physical therapist with [facility] left message stating he saw patient today for recertification and plans to see patient twice a week for 3 weeks then once a week for 4 weeks. Requesting verbal okay for plan of care. States when calling back okay to leave message. Please advise. Precious Lacy MA [facility] 11-09-2024 Telephone encounter Note Form received from [facility] placed on signing trajose de jesus Pedersen MA [facility] 11-09-2024 Miscellaneous Notes Form received from [facility] placed on signing chris Pedersen MA documented in this encounter [facility] 11-03-2024 Telephone encounter Note Spoke with . She was made aware of request of Dr. Simon. states understanding. Please have increase prednisone to 10 mg x 5 days then back to 5 mg. Doesn t sound like needs atbx. Increase frequency of breathing Rx. [facility] 11-03-2024 Miscellaneous Notes Spoke with . She was made aware of request of Dr. Simon. states understanding. Please have increase prednisone to 10 mg x 5 days then back to 5 mg. Doesn t sound like needs atbx. Increase frequency of breathing Rx. Received message from [facility]-Nurse. Patient had just had a breathing treatment [...] Annie Elizabeth RN documented in this encounter [facility] 11-02-2024 Telephone encounter Note Received message from [facility]-Nurse. Patient had just had a breathing treatment [...] to seek medical attention. Annie Elizabeth RN [facility] 11-02-2024 Telephone encounter Note Form signed. Please return fax. [facility] 11-02-2024 Miscellaneous Notes Form signed. Please return fax. Form chung placed on signing chris Pedersen MA documented in this encounter [facility] 11-02-2024 Telephone encounter Note Form chung placed on signing chris Pedersen MA [facility] 10-29-2024 Telephone encounter Note Form received from [facility] Order: [id number] placed on signing tray Priya Pedersen MA [facility] 10-29-2024 Miscellaneous Notes Form received from [facility] Order: [id number] placed on signing tray Priya Pedersen MA documented in this encounter [facility] 10-29-2024 History of Presen t illness Narrative Images from the original note were not included. DEPARTMENT OF PULMONARY MEDICINE HOSPITAL FOLLOW-UP OFFICE VISIT 10/29/2024 HISTORY OF PRESENT ILLNESS: Mars Peterson is a 69 year old male who presents today for hospital follow-up. Past medical history is significant for fibrotic hypersensitivity pneumonitis, GERD, CAD, and PAD s/p RLE amputation. Former 22-kphd-aukm smoker. Patient was admitted to [facility] from 10/12/24 - 10/16/24 for treatment of [...] DATE OF EXAM: Oct 13 2024 9:51AM [facility] 0541 - CT CHEST WO IVCON / [...] cardiomegaly. Gallbladder stones. Dilated large bowel loop. 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: [facility] Transcribe Date/Time: Oct 13 2024 10:40A Dictated [...] Collected: 04/27/2024 2:00 PM (Final result) Narrative: [facility] [address] [place] [address] Test Date: 2024-04-27 Pat Name: MARS PETERSON Department: Room: Gender: Male Lab Asst: : 1955 Requested By: Order Number: [id number] Reading MD: Francisco Ptael MD Interpretive Statements Current ATS/ERS acceptability and [...] 16:08:13 EST by Francisco Patel MD ID: [id number] Name: MARS PETERSON Race: White Ht: 72.00 [...] 5.35 FEF50/FIF50 0.41 90-100 FIVC (L) 2.30 JRR95-66 (L/sec) 1.39 1.09 2.52 4.56 55 Time (sec) 8.22 FET PEF (sec) 0.09 AMY (L) 0.11 Vol Extrap % (%) 5 [...] visits weekly. 2. 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 Simon. Recording using Holla@Me software for draft documentation of the visit was discussed with the patient/authorized registration representative; all questions welcomed and answered. Patient/authorized registration representative agreed to proceed Tru Lucas PA-C October 29, 2024 documented in this encounter [facility] 10-29-2024 Note [facility] 10-26-2024 Telephone encounter Note Patient requesting refills: Last office visit 07/14/2024. Last refill 03/31/2024. Requested Prescriptions Pending Prescriptions Disp Refills colestipol (COLESTID) 1 gram tablet 180 tablet 1 Sig: Take 1 tablet by mouth two times a day. Please review and advise. Suzanne Almaguer MA [facility] 10-26-2024 Miscellaneous Notes Patient requesting refills: Last office visit 07/14/2024. Last refill 03/31/2024. Requested Prescriptions Pending Prescriptions Disp Refills colestipol (COLESTID) 1 gram tablet 180 tablet 1 Sig: Take 1 tablet by mouth two times a day. Please review and advise. Suzanne Almaguer MA documented in this encounter [facility] 10-21-2024 Note HNO ID: [id number] Author: BEAR HIDALGO PA-C Service: ? 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 ASSESSMENT: (O56.704C) Closed boxer's fracture with routine healing, subsequent [...] any concerns. This note was generated via [employer] technology and [email or web address] voice dictation and may contain errors related to that system such as spelling, grammar, punctuation, gender, words, and phrases that may be inappropriate. All reasonable efforts were made to correct dictation errors, however, they still may occur given the software used. Bear GIL PA-C [facility] .ago PT ASSESSMENT - CASTING ROOM Mars presents for Application of Cockup wrist splint. Patient has been instructed in Care and proper application of brace.. Patient to keep follow up appointment as scheduled. Buddy Canales LPN documented in this encounter [facility] 10-21-2024 Note HNO ID: [id number] Author: JOSE RAFAEL PELAEZ Tech Service: ? Author Type: Lab Asst Type: Progress Notes Filed: 10/21/2024 11:49 Note Text: .ago [facility] 10-21-2024 Note HNO ID: [id number] Author: BUDDY CANALES LPN Service: ? Author Type: LICENSED NURSE Type: Progress Notes Filed: 10/21/2024 11:49 Note Text: PT ASSESSMENT - CASTING ROOM Mars presents for Application of Cockup wrist splint. Patient has been instructed in Care and proper application of brace.. Patient to keep follow up appointment as scheduled. Buddy Canales LPN [facility] 10-19-2024 Note HNO ID: [id number] Author: LILIAN SETHI RN Service: ? Author Type: Registered Nurse Type: Progress Notes Filed: 10/19/2024 10:44 Note Text: TRANSITIONAL CARE MANAGEMENT (TCM) COMMUNITY MONITORING PROGRAM - [place] SUMMARY: Pt discharged from [facility] on 10/16/24. RISK 24 Admitted for: Sepsis PNA Patient seen Inpatient SANTANA Visit? N/A. Patient seen ICARE Program? N/A. Contact made with patient: Yes Hi my name is Lilian Sethi RN and I am calling from the [facility] on behalf of your PCP, Alma Gill APRN.SPECIALTY THERAPIST I understand you were recently in the [...] before breakfast. Verified (more content not included)... [facility] 10-19-2024 History of Presen t illness Narrative TRANSITIONAL CARE MANAGEMENT (TCM) COMMUNITY MONITORING PROGRAM - [place] SUMMARY: Pt discharged from [facility] on 10/16/24. RISK 24 Admitted for: Sepsis PNA Patient seen Inpatient SANTANA Visit? N/A. Patient seen ICARE Program? N/A. Contact made with patient: Yes Hi my name is Lilian Sethi RN and I am calling from the [facility] on behalf of your PCP, Alma Gill APRN.SPECIALTY THERAPIST I understand you were recently in the [...] like to speak with a social work paper steamer to help give you support for any [...] Lilian Sethi RN documented in this encounter [facility] 10-19-2024 Note Patient Outreach (AG ACM) MARS PETERSON ([id number]) 1955 M DEF Date Time Provider Department 10/19/24 LILIAN SETHI [facility] During your visit today, we recorded the following information about you: Lilian Sethi RN 10/19/2024 10:44 AM Signed TRANSITIONAL CARE MANAGEMENT (TCM) COMMUNITY MONITORING PROGRAM - [facility] SUMMARY: Pt discharged from [facility] on 10/16/24. RISK 24 Admitted for: Sepsis PNA Patient seen Inpatient SANTANA Visit? N/A. Patient seen ICARE Program? N/A. Contact made with patient: Yes Hi my name is Lilian Sethi RN and I am calling from the [facility] on behalf of your PCP, Alma Gill APRN.SPECIALTY THERAPIST I understand you were recently in the [...] daily at bedt (more content not included)... [facility] 10-16-2024 Note HNO ID: [id number] Author: TRINH PERALTA RN Service: Care Management Author Type: Registered Nurse Type: Care Mgt Progress Note Filed: 10/16/2024 11:39 Note Text: CARE MANAGEMENT DISCHARGE NOTE SERVICE DATE: October 16, 2024 SERVICE TIME: 11:35 AM Admission Date: 10/12/2024 LOS: 3 days Discharge Arrangement Discharge Arrangement: Home with Home Health, Home with Relative Services Arranged Medical Services: Skilled Home Health Care Type: Home Health Agency, Half-Way, Physical Therapy, Occupational Therapy Provider Name: [facility] Caregiver Assessment Caregiver is ready, willing and able to meet the patient's needs as recommended by the inter-professional team: Yes Name of Caregiver: [facility] and spouse assist as needed. Transportation Arrangements Transportation Arrangements: Car Date of Trip: 10/16/24 Time of Trip: 1400 Destination: Home Handoff Communication: Handoff to: Primary Care Physician Primary Care Physician Name/Phone: Alma Gill, WINDOWS SECURITY ENGINEER.[facility]/[phone] Discharge Information Row Name Admission (Current) from 10/12/2024 in [facility] Start of Care -- Within 48 hours of discharge Discharge order is written. SERGEY SILVERIO met with the patient at bedside to discuss discharge plans. He continues to decline SNF and plans on returning home with resumption of [facility]. [facility] was updated on discharge and confirmed they are able to resume services. The patient's spouse will be driving him home and per the patient, will have the patient's portable Oxygen for transport. SIGNATURE: Trinh Peralta RN PATIENT NAME: Mars Peterson DATE: October 16, 2024 TIME: 11:35 AM [facility] 10-16-2024 Note HNO ID: [id number] Author: AGUTSÍN HERNÁNDEZ MD Service: Hospital Medicine Author Type: Physician Type: Progress Notes Filed: 10/16/2024 10:46 Note Text: DEPARTMENT OF HOSPITAL MEDICINE PROGRESS NOTE SERVICE DATE: 10/16/2024 SERVICE TIME: 10:39 AM Hospital Medicine/Primary Attending: Agustín Hernández MD NIGHT AND WEEKEND COVERAGE: [employer] COVERAGE: Nights: [phone], please page [place] Hospitalist Night coverage pager [phone]. Probable discharge: 10/17 Disposition: Home health care [...] had his Imuran recently increased by his second shift supervisor but has had no other recent changes to his medications that he knows of. Socially, the patient denies nicotine use, alcohol use, or recreational drug use. Furthermore he denies headache, changes in his vision/hearing, trouble swallowing, chest pain, shortness of breath, abdominal pain, constipation/hematochezia, urinary changes, new numbness/tingling, or new swelling. In the [place] ED the patient was found to be [...] is being transferred to hospital medicine at [place] for further workup and management of his [...] Bactrim being therapeu (more content not included)... [facility] 10-16-2024 Note HNO ID: [id number] Author: FRANCISCO HOLLOWAY MD Service: Pulmonary Disease [...] On chronic prednisone - Discussed with patient's second shift supervisor Dr. Simon, agree holding Imuran. 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 [facility] 10-16-2024 Note HNO ID: [id number] Author: TRINH PERALTA RN Service: Care Management Author Type: Registered Nurse Type: Care Mgt Progress Note Filed: 10/16/2024 10:07 Note Text: CARE MANAGEMENT PROGRESS NOTE SERVICE DATE: 10/16/2024 SERVICE TIME: 10:07 AM LOS: 3 days IMM Follow Up Copy Given: Yes Copy given to:: Patient Method: In Person SIGNATURE: Trinh Peralta RN PATIENT NAME: Mars Peterson DATE: October 16, 2024 TIME: 10:07 AM [facility] 10-15-2024 Note HNO ID: [id number] Author: AGUSTÍN HERNÁNDEZ MD Service: Hospital Medicine Author Type: Physician Type: Progress Notes Filed: 10/16/2024 06:58 Note Text: DEPARTMENT OF HOSPITAL MEDICINE PROGRESS NOTE SERVICE DATE: 10/15/2024 SERVICE TIME: 6:25 PM Hospital Medicine/Primary Attending: Agustín Hernández MD NIGHT AND WEEKEND COVERAGE: [employer] COVERAGE: Nights: [phone], please page [place] Hospitalist Night coverage pager [phone]. Probable discharge: 10/17 Disposition: To be determined [...] had his Imuran recently increased by his second shift supervisor but has had no other recent changes to his medications that he knows of. Socially, the patient denies nicotine use, alcohol use, or recreational drug use. Furthermore he denies headache, changes in his vision/hearing, trouble swallowing, chest pain, shortness of breath, abdominal pain, constipation/hematochezia, urinary changes, new numbness/tingling, or new swelling. In the [place] ED the patient was found to be [...] bowel seen without (more content not included)... [facility] 10-15-2024 Note HNO ID: [id number] Author: TRINH PERALTA RN Service: Care Management [...] home with his spouse and resumption of [facility] Care. Spouse to transport at discharge. CM assigned will continue to follow. SIGNATURE: Trinh Peralta RN PATIENT NAME: Mars Peterson DATE: October 15, 2024 TIME: 3:29 PM [facility] 10-15-2024 Note HNO ID: [id number] Author: FRANCISCO HOLLOWAY MD Service: Pulmonary Disease [...] On chronic prednisone - Discussed with patient's second shift supervisor Dr. Simon, agree holding Imuran. 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 [facility] 10-14-2024 Note HNO ID: [id number] Author: AGUSTÍN HERNÁNDEZ MD Service: Hospital Medicine Author Type: Physician Type: Progress Notes Filed: 10/15/2024 06:59 Note Text: DEPARTMENT OF HOSPITAL MEDICINE PROGRESS NOTE SERVICE DATE: 10/14/2024 SERVICE TIME: 7:18 PM Hospital Medicine/Primary Attending: Agustín Hernández MD NIGHT AND WEEKEND COVERAGE: [employer] COVERAGE: Nights: [phone], please page [place] Hospitalist Night coverage pager [phone]. Probable discharge: 10/17 Disposition: To be determined [...] had his Imuran recently increased by his second shift supervisor but has had no other recent changes to his medications that he knows of. Socially, the patient denies nicotine use, alcohol use, or recreational drug use. Furthermore he denies headache, changes in his vision/hearing, trouble swallowing, chest pain, shortness of breath, abdominal pain, constipation/hematochezia, urinary changes, new numbness/tingling, or new swelling. In the [place] ED the patient was found to be [...] and pelvis demons (more content not included)... [facility] 10-14-2024 Note HNO ID: [id number] Author: SOWMYA CONDE RN Service: Care Management Author Type: Registered Nurse Type: Care Mgt Progress Note Filed: 10/14/2024 15:57 Note Text: CARE MANAGEMENT PROGRESS NOTE SERVICE DATE: 10/14/2024 SERVICE TIME: 3:57 PM LOS: 1 day Needs Prior to Discharge: To Be Determined EMR reviewed. CM confirmed patient is active with [facility]. Referral placed in [facility]. Will need F2F. CM will follow. SIGNATURE: oSwmya Conde RN PATIENT NAME: Mras Peterson DATE: October 14, 2024 TIME: 3:57 PM [facility] 10-14-2024 Telephone encounter Note Images from the [...] TAKE 1 TABLET BY MOUTH EVERY DAY [facility] 10-14-2024 Miscellaneous Notes Images from the original [...] MOUTH EVERY DAY documented in this encounter [facility] 10-14-2024 Note HNO ID: [id number] Author: FRANCISCO HOLLOWAY MD Service: Pulmonary Disease [...] Follow sepsis workup. - Discussed with patient's second shift supervisor Dr. Simon, agree holding Imuran. 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 [facility] 10-13-2024 Telephone encounter Note Patient has been scheduled to see Bear on 10/21/24. Alicia Gibson [facility] October 13, 2024 1:45 PM [facility] 10-13-2024 Miscellaneous Notes Patient has been scheduled to see Bear on 10/21/24. Alicia Nieves October 13, 2024 1:45 PM I will check with Bear since Dr. Hummel is out of the office. Alicia Gibson [facility] October 13, 2024 11:54 AM ----- Message from Ami Hugo sent at 10/13/2024 11:31 AM EDT ----- Regarding: Orthopdics/ [ACACIA Hidalgo]/ [Questions about Cast] Subject Line Format: Orthopedics / [Provider Name or Open & Body Part] / [Issue] Patient has been identified by [...] to if cast can be removed by [facility] on 10/14. Patients spouse stated they are unsure of when patient is getting out of hospital. Patients spouse would like call back at earliest convenience to discuss. If reason for call/escalation is discharge from ED/ER or Hospital, which facility was the patient seen at: N/A Was an appointment scheduled (Y/N): N Person calling if other than patient: Patients BradyIvania Return call to if other than patient: Patients SpouseIvania Best contact number: [phone] Thank you, Ami Agee October 13, 2024 11:32 AM documented in this encounter [facility] 10-13-2024 Telephone encounter Note I will check with Bear since Dr. Hummel is out of the office. Alicia Gibson [facility] October 13, 2024 11:54 AM [facility] 10-13-2024 Telephone encounter Note ----- Message from Ami Hugo sent at 10/13/2024 11:31 AM EDT ----- Regarding: Orthopdics/ [ACACIA Hidalgo]/ [Questions about Cast] Subject Line Format: Orthopedics / [Provider Name or Open & Body Part] / [Issue] Patient has been identified by [...] to if cast can be removed by [facility] on 10/14. Patients spouse stated they are [...] patient: Patients Ivania Abreu Best contact number: [phone] Thank you, Ami Levett October 13, 2024 11:32 AM [facility] 10-13-2024 Note HNO ID: [id number] Author: AGUSTÍN HERNÁNDEZ MD Service: Hospital Medicine Author Type: Physician Type: Progress Notes Filed: 10/13/2024 12:37 Note Text: DEPARTMENT OF HOSPITAL MEDICINE PROGRESS NOTE SERVICE DATE: 10/13/2024 SERVICE TIME: 11:18 AM Hospital Medicine/Primary Attending: Agustín Hernández MD NIGHT AND WEEKEND COVERAGE: MOXEE COVERAGE: Nights: [phone], please page [facility] Night coverage pager [phone]. Probable discharge: 10/17 Disposition: To be determined [...] had his Imuran recently increased by his second shift supervisor but has had no other recent changes to his medications that he knows of. Socially, the patient denies nicotine use, alcohol use, or recreational drug use. Furthermore he denies headache, changes in his vision/hearing, trouble swallowing, chest pain, shortness of breath, abdominal pain, constipation/hematochezia, urinary changes, new numbness/tingling, or new swelling. In the [place] ED the patient was found to be [...] is being transferred to hospital medicine at [place] for further workup and management of his sepsis of unknown origin. Active Hospital Problems as of 10/13/2024 Noted - Resolved [facility] * (Principal) Sepsis (HCC) 10/12/2024 - Present Yes Essential hypertension 05/24/2020 - Present Yes Peripheral vascular disease 05/24/2020 - Present Yes Obesity, Class II, (more content not included)... [facility] 10-13-2024 Note HNO ID: [id number] Author: TRINH PERALTA, SERGEY Service: Care Management Author Type: Registered Nurse Type: Care Mgt Initial Assessment Filed: 10/13/2024 11:15 Note Text: CARE MANAGEMENT: ASSESSMENT AND DISCHARGE PLAN SERVICE DATE: October 13, 2024 SERVICE TIME: 11:12 AM PCP: Alma Gill APRN.EVANS Primary Contact: Extended Emergency Contact Information Primary Emergency Contact: Ivania Peterson Address: [address] [place] [address] [facility] Mobile Relation: Spouse Secondary Emergency Contact: Ashley Rios Mobile Relation: Daughter Admission Status: Observation Insurance Provider: MEDICARE A AND B Discharge Planning requested by: Per Department Practice Potential Transition Plans Home Care Advance Directives Current Advance Directive: None Hoop Punch And Coiler Operator Attempted to Assist with AD Completion: Yes [...] See Comment (Prosthetic) Current Post-Acute Service([facility]) [facility] Discharge Planning Patient Goal(s): Be able to go home, General wellness [place] of Choice Explained: [place] of Choice Given: Yes Level of Care Discussed: Home Care (Patient and spouse confirmed plan to resume services with [facility].) Are you interested in bedside delivery of your medications? No Discharge Planning Participant(s): Patient, Spouse/significant other Patient/Family Comments: Caregiver Assessment: Caregiver is ready, willing and able to meet the patient's needs as recommended by the inter-professional team: Yes Name of Caregiver: [facility] and spouse assist and ALCOHOL USE/ABUSE CAGE ASSESSMENT Two or More Affirmative Responses Suggest a Client is a Problem Drinker. - Have you felt the need to cut down on your drinking? No - Do you feel annoyed by people complaining about your drinking? No - Do you ever feel guilty about your drinking? No - Do you ever drink an eye-applied biology professor in the morning to relieve shakes? No [...] and needed assistance with ADL's and IADL's DIRECTOR OF SALES MARKETING. He was active with [facility] DIRECTOR OF SALES MARKETING and plans on resuming services upon discharge. He is not interested in SNF. Spouse to transport at discharge. CM assigned will continue to follow. SIGNATURE: Trinh Peralta RN PATIENT NAME: Mars Peterson DATE: October 13, 2024 TIME: 11:12 AM [facility] 10-12-2024 Telephone encounter Note RQB Hx of ILD on 3L. Cough weakness fever and low BP's at home. ?colitis vs PNA. [facility] Work Phone: 10-12-2024 Miscellaneous Notes RQB Hx of ILD on 3L. Cough weakness fever and low BP's at home. ?colitis vs PNA. documented in this encounter [facility] 10-12-2024 Note SARS-COV-2 (AGENT OF COVID-19) RNA: Not detected INFLUENZA A RNA: Not detected INFLUENZA B RNA: Not detected RESPIRATORY SYNCYTIAL VIRUS (RSV) RNA: Not detected [facility] Comment on above: Performed By: #### 9 [id number] #### [facility] CLIA [id number] [address] [place] [address] STATES OF [facility] 10-08-2024 Telephone encounter Note Form placed on signing tray from [facility] Order: [id number] Priya Pedersen MA [facility] 10-08-2024 Miscellaneous Notes Form placed on signing tray from [facility] Order: [id number] Priya Pedersen MA documented in this encounter [facility] 10-06-2024 Telephone encounter Note pharmacy electronically requesting refills as follows: Last seen 07/14/24 . Last refill 04/29/24 . Requested Prescriptions Pending Prescriptions Disp Refills traZODone (DESYREL) 100 mg tablet [Pharmacy Med Name: TRAZODONE 100 MG TABLET] 180 tablet 1 Sig: TAKE 2 TABLETS BY MOUTH EVERY DAY AT BEDTIME Please review and advise. Precious Lacy MA [facility] 10-06-2024 Miscellaneous Notes pharmacy electronically requesting refills as follows: Last seen 07/14/24 . Last refill 04/29/24 . Requested Prescriptions Pending Prescriptions Disp Refills traZODone (DESYREL) 100 mg tablet [Pharmacy Med Name: TRAZODONE 100 MG TABLET] 180 tablet 1 Sig: TAKE 2 TABLETS BY MOUTH EVERY DAY AT BEDTIME Please review and advise. Precious Lacy MA documented in this encounter [facility] 09-28-2024 Telephone encounter Note Form placed on signing tray Order: [id number] Priya Pedersen MA [facility] 09-28-2024 Miscellaneous Notes Form placed on signing tray Order: [id number] Priya Pedersen MA documented in this encounter [facility] 09-23-2024 History of Presen t illness Narrative [...] Scribe Attestation: By signing my name below, Palmira Rao, attest that this documentation has been prepared under the direction and in the presence of Dr. Sandra Hummel MD. Electronically Signed: Breezy Anguiano. September 23, 2024 2:36 PM. Provider Attestation: Jimmy, Dr. Sandra Hummel MD, personally performed the [...] September 23, 2024 documented in this encounter [facility] 09-23-2024 Note HNO ID: [id number] Author: SANDRA HUMMEL MD Service: ? Author [...] Dr. Sandra Hummel MD, September 23, 2024 [facility] 09-22-2024 Telephone encounter Note Form received from [facility] order: [id number] Priya Pedersen MA [facility] 09-22-2024 Miscellaneous Notes Form received from [facility] order: [id number] Priya Pedersen MA documented in this encounter [facility] 09-21-2024 Telephone encounter Note ----- Message from Alma Gill APRN.SPECIALTY THERAPIST sent at 09/21/2024 3:48 PM EDT ----- Labs are stable besides sodium at 125. [facility] 09-21-2024 Miscellaneous Notes ----- Message from Alma Gill APRN.SPECIALTY THERAPIST sent at 09/21/2024 3:48 PM EDT ----- Labs are stable besides sodium at 125. documented in this encounter [facility] 09-21-2024 History of Presen t illness Narrative [...] PATIENT PRESENTS WITH AN IMPLANTABLE OR ATTACHED RN ACUTE: No RADIOLOGY DEPARTMENT: General X-ray: Exam(s) Completed: Upper Extremity X-Ray(s): Hand, right PERIPHERAL IV DATA: Not applicable SIGNED BY: RT Hayder([facility]) September 21, 2024 12:42 PM documented in this encounter [facility] 09-21-2024 Note HNO ID: [id number] Author: ROSEMARY SAMS RT([facility]) Service: ? Author [...] PATIENT PRESENTS WITH AN IMPLANTABLE OR ATTACHED RN ACUTE: No RADIOLOGY DEPARTMENT: General X-ray: Exam(s) Completed: Upper Extremity X-Ray(s): Hand, right PERIPHERAL IV DATA: Not applicable SIGNED BY: RT Hayder(R) September 21, 2024 12:42 PM [facility] 09-21-2024 Tru Owusu MD - 09/21/2024 10:11 AM EDT Keep tapering prednisone as planned Reschedule your PFTs for when you come back to see me (either 11/09 or 11/11) Start acyclovir 400 mg once a day once you finish your current treatment for shingles I will contact pharmacy about prior auth for cellcept documented in this encounter [facility] 09-21-2024 Note [facility] 09-21-2024 History of Presen t illness Narrative Images from the original note were not included. Respiratory [place] Mars Peterson is a 69 year old male here for a follow up with the [facility] Interstitial Lung Disease Team. HISTORY OF PRESENT [...] hand. Reportedly had AFlutter and PVCs per protective services social worker. 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 Pulmonary Function Data PFT [...] with oral acyclovir [place] + dizziness - protective services social worker reported Aflutter and PVCs. Has established subsea engineer PLAN Treating diagnosis: Fibrotic HP ILD medications [...] without complication B02.9 documented in this encounter [facility] 09-18-2024 Telephone encounter Note Form received from [facility] placed on signing tray Priya Pedersen MA [facility] 09-18-2024 Miscellaneous Notes Form received from [facility] placed on signing tray Priya Pedersen MA documented in this encounter [facility] 09-17-2024 Telephone encounter Note Royer is informed Priya Pedersen MA [facility] 09-17-2024 Miscellaneous Notes Royer is informed Priya Pedersen MA Verbal order given for PT. [facility] PT from [facility] called requesting Verbal orders to start PT one time a week for nine weeks Priya Pedersen MA documented in this encounter [facility] 09-17-2024 Telephone encounter Note Verbal order given for PT. [facility] 09-17-2024 Telephone encounter Note [facility] PT from [facility] called requesting Verbal orders to start PT one time a week for nine weeks Priya Peedrsen MA [facility] 09-17-2024 Telephone encounter Note Form faxed back Priya Pedersen MA [facility] 09-17-2024 Miscellaneous Notes Form faxed back Priya Pedersen MA Signed. Please return fax. Chung faxed over a form placed on signing tray Priya Pedersen MA documented in this encounter [facility] 09-17-2024 Telephone encounter Note Signed. Please return fax. [facility] 09-17-2024 Telephone encounter Note Chung faxed over a form placed on signing tray Priya Pedersen MA [facility] 09-10-2024 Note Addended by: ALMA GILL on: 09/10/2024 04:06 PM Modules accepted: Orders [facility] 09-10-2024 Miscellaneous Notes Addended by: ALMA GILL on: 09/10/2024 04:06 PM Modules accepted: Orders Rx for Freestyle sent in. She states that they don't check but she will start. She has a glucose monitor but he does not like getting his finger pricked so she would like for a freestyle Priya Pedersen MA Reviewed labs, this reading was from yesterday. pressure testing technician states they did not receive the lab until 11 pm last night. Please notify the patient's about the reading. Does he have supplies to check his BS at home? [facility] lab called for a glucose reading of 35 Priya Pedersen MA documented in this encounter [facility] 09-10-2024 Telephone encounter Note Rx for Freestyle sent in. [facility] 09-10-2024 Telephone encounter Note She states that they don't check but she will start. She has a glucose monitor but he does not like getting his finger pricked so she would like for a freestyle Priya Pedersen MA [facility] 09-10-2024 Telephone encounter Note Reviewed labs, this reading was from yesterday. pressure testing technician states they did not receive the lab until 11 pm last night. Please notify the patient's about the reading. Does he have supplies to check his BS at home? [facility] 09-10-2024 Telephone encounter Note [facility] lab called for a glucose reading of 35 Priya Pedersen MA [facility] 08-28-2024 Instructions Francesco Tobias - 08/28/2024 3:37 PM EDT Can use wider shoes for the bunion or gel padding documented in this encounter [facility] 08-28-2024 Note [facility] 08-28-2024 History of Presen t illness Narrative [...] Francesco Tobias DPM documented in this encounter [facility] 08-26-2024 Telephone encounter Note Na. My chart message sent. Please place order . Thank you. Suzanne Almaguer MA [facility] 08-26-2024 Telephone encounter Note ----- Message from Alma Gill APRN.SPECIALTY THERAPIST sent at 08/26/2024 1:23 PM EDT ----- CBC stable Sodium is low again at 127- can he cut back on his Lasix to twice daily for the next 3 days and recheck BMP on Saturday? [facility] 08-26-2024 Miscellaneous Notes Na. My chart message sent. Please place order . Thank you. Suzanne Almaguer MA ----- Message from Alma Gill APRN.SPECIALTY THERAPIST sent at 08/26/2024 1:23 PM EDT ----- CBC stable Sodium is low again at 127- can he cut back on his Lasix to twice daily for the next 3 days and recheck BMP on Saturday? documented in this encounter [facility] 08-26-2024 Nurse Note This nurse infused 1 ML dilute Difinity IV at 1235, another 1 ML dilute Difinity infused at 1238 as directed by Echo tach, and another 2 ML dilute Difinity infused a7 1241 as directed by the surveying technician for a total of 4 ML Dilute Difinity IV injected to the Left PIV. Patient tolerated the procedure well. The PIV was removed without issue and patient was assisted from Echo table to wheelchair. [facility] 08-26-2024 Nurse Note This nurse infused 1 ML dilute Difinity IV at 1235, another 1 ML dilute Difinity infused at 1238 as directed by Echo tach, and another 2 ML dilute Difinity infused a7 1241 as directed by the surveying technician for a total of 4 ML Dilute Difinity IV injected to the Left PIV. Patient tolerated the procedure well. The PIV was removed without issue and patient was assisted from Echo table to wheelchair. documented in this encounter [facility] 08-21-2024 Miscellaneous Notes Patient is informed Priya Pedersen MA ----- Message from Alma Gill APRN.SPECIALTY THERAPIST sent at 08/20/2024 9:15 AM EDT ----- Sodium improved. CBC is stable. documented in this encounter [facility] 08-21-2024 Telephone encounter Note Patient is informed Priya Pedersen MA [facility] 08-21-2024 Telephone encounter Note ----- Message from Alma Gill APRN.CNP sent at 08/20/2024 9:15 AM EDT ----- Sodium improved. CBC is stable. [facility] 08-17-2024 Instructions Beatrice Sarmiento MD - 08/17/2024 12:00 PM EDT We will get a lipid panel with your next blood work documented in this encounter [facility] 08-17-2024 History of Presen t illness Narrative Images from the original note were not included. [facility] SECTION OF [facility]AL CARDIOLOGY [facility] Cardiology [place] ([place] [facility] (POB)) [address] [facility] [id number] OUTPATIENT VISIT DATE 08/17/2024 PRIMARY CARE PHYSICIAN: Alma Gill [address] [place] [address] HISTORY OF PRESENT ILLNESS: Mr. 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 Status post CABG with severe kashia coronary artery atherosclerotic calcifications are noted, although [...] AND RECOMMENDATIONS: 1. 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 - ICD9: [...] Beatrice Sarmiento MD documented in this encounter [facility] 08-17-2024 Note [facility] 08-11-2024 Telephone encounter Note Both scripts were sent in 05/18/24 for a years supply. Precious Lacy MA [facility] 08-11-2024 Miscellaneous Notes Both scripts were sent in 05/18/24 for a years supply. Precious Lacy MA documented in this encounter [facility] 08-05-2024 Telephone encounter Note [employer] form placed it on the signing tray Priya Pedersen MA [facility] 08-05-2024 Miscellaneous Notes [employer] form placed it on the signing tray Priya Pedersen MA documented in this encounter [facility] 07-31-2024 Telephone encounter Note Images from the original note were not included. Admin faxed over home health form to [facility], signed by Dr. Simon. Admin scanned into chart (scanned documents) on 07/31/2024. [facility] 07-31-2024 Miscellaneous Notes Images from the original note were not included. Admin faxed over home health form to [facility], signed by Dr. Simon. Admin scanned into chart (scanned documents) on 07/31/2024. documented in this encounter [facility] 07-22-2024 Telephone encounter Note Portable oxygen has been faxed to [facility] Priya Pedersen MA [facility] 07-22-2024 Miscellaneous Notes Portable oxygen has been faxed to [facility] Priya Pedersen MA documented in this encounter [facility] 07-21-2024 Telephone encounter Note patient electronically requesting refills as follows: Last seen 07/14/24 . Last refill 03/31/24 . Requested Prescriptions Pending Prescriptions Disp Refills isosorbide mononitrate ER (IMDUR) 30 mg 24 hr tablet 90 tablet 1 Sig: Take 1 tablet by mouth once daily. Please review and advise. Precious Lacy MA [facility] 07-21-2024 Miscellaneous Notes patient electronically requesting refills as follows: Last seen 07/14/24 . Last refill 03/31/24 . Requested Prescriptions Pending Prescriptions Disp Refills isosorbide mononitrate ER (IMDUR) 30 mg 24 hr tablet 90 tablet 1 Sig: Take 1 tablet by mouth once daily. Please review and advise. Precious Lacy MA documented in this encounter [facility] 07-20-2024 Telephone encounter Note Form received from [employer] placed on signing tray Priya Pedersen MA [facility] 07-20-2024 Miscellaneous Notes Form received from [facility] placed on signing tray Priya Pedersen MA documented in this encounter [facility] 07-16-2024 History of Presen t illness Narrative [...] PATIENT PRESENTS WITH AN IMPLANTABLE OR ATTACHED RN ACUTE: No RADIOLOGY DEPARTMENT: CT; Exam(s) Completed: Chest PERIPHERAL IV DATA: Not applicable SIGNED BY: KERVIN Vela July 16, 2024 2:22 PM documented in this encounter [facility] 07-16-2024 Note HNO ID: [id number] Author: CASH MCDANIEL CT Service: Radiology Author [...] PATIENT PRESENTS WITH AN IMPLANTABLE OR ATTACHED RN ACUTE: No RADIOLOGY DEPARTMENT: CT; Exam(s) Completed: Chest PERIPHERAL IV DATA: Not applicable SIGNED BY: Cash Mcdaniel, CT July 16, 2024 2:22 PM [facility] 07-14-2024 Note SARS-COV-2 (AGENT OF COVID-19) RNA: Not detected INFLUENZA A RNA: Not detected INFLUENZA B RNA: Not detected RESPIRATORY SYNCYTIAL VIRUS (RSV) RNA: Not detected [facility] Comment on above: Performed By: #### 9 [id number] ####[facility] [id number] [address] OF [facility] 07-14-2024 Note HNO ID: [id number] Author: ALMA GILL APRN.SPECIALTY THERAPIST Service: ? 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 DJD (degenerative joint disease) Essential hypertension Heart attack ([facility]) 1999 States his previous subsea engineer told him he had a heart attack based on EKG (in [place]) ILD (interstitial lung disease) ([facility]) Neuropathy 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 Tru Simon MD [facility] 07-13-[address] Dr Simon, [...] Tru Simon MD documented in this encounter [facility] 07-07-2024 Telephone encounter Note Summary: ORDERS Fax received from [facility] dated 06/29/24, placed on provider desk for review/signature. [facility] 07-07-2024 Miscellaneous Notes Summary: ORDERS Fax received from [facility] dated 06/29/24, placed on provider desk for review/signature. documented in this encounter [facility] 07-06-2024 Telephone encounter Note Received encounter request from Dr. Tom Simon; help with PA for Cellcept/Mycophenolate Mofetil 250 MG; PA done today 07/06/2024 thru [employer]; Vieyra: [id number]; outcome status; approved till 07/06/2025; ; Authorization # [id number]. DX - J84.9 ILD DX - J67.9 Hypersensitivity Pneumonitis [facility] 07-06-2024 Miscellaneous Notes Received encounter request from Dr. Tom Simon; help with PA for Cellcept/Mycophenolate Mofetil 250 MG; PA done today 07/06/2024 thru [employer]eds; Vieyra: [id number]; outcome status; approved till 07/06/2025; ; Authorization # [id number]. DX - J84.9 ILD DX - J67.9 Hypersensitivity Pneumonitis documented in this encounter [facility] 07-06-2024 Telephone encounter Note Faxed Priya Pedersen MA [facility] 07-06-2024 Miscellaneous Notes Faxed Priya Pedersen MA Form signed. Please return fax. Form to [place] patient's home health palced on signing tray Priya Pedersen MA documented in this encounter [facility] 07-06-2024 Telephone encounter Note Form signed. Please return fax. [facility] 07-06-2024 Telephone encounter Note Form to [place] patient's home health palced on signing tray Priya Pedersen MA [facility] 07-03-2024 Telephone encounter Note Form placed on signing tray from [facility] Priya Pedersen MA [facility] 07-03-2024 Miscellaneous Notes Form placed on signing tray from [facility] Priya Pedersen MA documented in this encounter [facility] 06-24-2024 Instructions Tru Simon MD - 06/24/2024 2:22 PM EST Stop trelegy Start pulmicort neb twice daily Start duoneb four times daily Have azithromycin on hand in case of exacerbation Keep weaning prednisone I will work on cellcept issues Get echo See me back in 3 months with lung function testing documented in this encounter [facility] 06-24-2024 Note [facility] 06-24-2024 History of Presen t illness Narrative Images from the original note were not included. Respiratory Gassaway Mars Peterson is a 69 year old male here for a follow up with the [facility] Interstitial Lung Disease Team. 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 Pulmonary Function Data PFT [...] MD Encounter Diagnosis ICD-10-CM 1. Hypersensitivity pneumonitis ([facility]) J67.9 budesonide (PULMICORT) 0.5 mg/2 mL nebulizer solution ipratropium-albuterol (DUONEB) 0.5 mg-3 mg(2.5 mg base)/3 mL nebu azithromycin (ZITHROMAX) 250 mg tablet SPIROMETRY BASELINE ONLY LUNG DIFFUSION CAPACITY (DLCO) DISCONTINUED: foisirdrdm-mqljamkz-hwtsqpndpp (BREZTRI AEROSPHERE) 160-9-4.8 mcg/actuation HFA aerosol inhaler 2. Chronic respiratory failure with hypoxia ([facility]) J96.11 budesonide (PULMICORT) 0.5 mg/2 mL nebulizer solution ipratropium-albuterol (DUONEB) 0.5 mg-3 mg(2.5 mg base)/3 mL nebu azithromycin (ZITHROMAX) 250 mg tablet SPIROMETRY BASELINE ONLY LUNG DIFFUSION CAPACITY (DLCO) DISCONTINUED: gamslrqmaz-hqbtfqss-yccmbixywb (BREZTRI AEROSPHERE) 160-9-4.8 mcg/actuation HFA aerosol inhaler 3. 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 Acute hypoxic respiratory failure ([facility]) J96.01 budesonide (PULMICORT) 0.5 mg/2 mL nebulizer solution ipratropium-albuterol (DUONEB) 0.5 mg-3 mg(2.5 mg base)/3 mL nebu azithromycin (ZITHROMAX) 250 mg tablet SPIROMETRY BASELINE ONLY LUNG DIFFUSION CAPACITY (DLCO) 5. Chronic obstructive pulmonary disease with acute exacerbation ([facility]) J44.1 budesonide (PULMICORT) 0.5 mg/2 mL nebulizer solution ipratropium-albuterol (DUONEB) 0.5 mg-3 mg(2.5 mg base)/3 mL nebu azithromycin (ZITHROMAX) 250 mg tablet SPIROMETRY BASELINE ONLY LUNG DIFFUSION CAPACITY (DLCO) documented in this encounter [facility] 06-23-2024 Telephone encounter Note pharm requesting refills: Last office visit 03/30/2024. Last refill 05/25/2024 . Requested Prescriptions Pending Prescriptions Disp Refills gabapentin (NEURONTIN) 300 mg capsule 150 capsule 2 Sig: TAKE 2 CAPSULES BY MOUTH EVERY MORNING AND 3 CAPSULES AT BEDTIME FOR 30 DAYS. Strength: 300 mg Please review and advise. Suzanne Almaguer MA [facility] 06-23-2024 Miscellaneous Notes pharm requesting refills: Last office visit 03/30/2024. Last refill 05/25/2024 . Requested Prescriptions Pending Prescriptions Disp Refills gabapentin (NEURONTIN) 300 mg capsule 150 capsule 2 Sig: TAKE 2 CAPSULES BY MOUTH EVERY MORNING AND 3 CAPSULES AT BEDTIME FOR 30 DAYS. Strength: 300 mg Please review and advise. Suzanne Almaguer MA documented in this encounter [facility] 06-23-2024 Telephone encounter Note Patient requesting refills: [...] Please review and advise. Suzanne Almaguer MA [facility] 06-23-2024 Miscellaneous Notes Patient requesting refills: Last [...] Suzanne Almaguer MA documented in this encounter [facility] 06-15-2024 Telephone encounter Note Left message for patient to call office. Need to know which DME he uses to send order for noct pulse ox [facility] 06-15-2024 Miscellaneous Notes Left message for patient to call office. Need to know which DME he uses to send order for noct pulse ox Do you want this nocturnal pulse oximetry done on O2 or room air? documented in this encounter [facility] 06-15-2024 Telephone encounter Note Do you want this nocturnal pulse oximetry done on O2 or room air? [facility] 06-09-2024 Telephone encounter Note Faxed Priya Pedersen MA [facility] 06-09-2024 Miscellaneous Notes Faxed Priya Pedersen MA Form signed. Please fax back. Form received from [facility] placed on signing tray Priya Pedersen MA documented in this encounter [facility] 06-09-2024 Telephone encounter Note Form signed. Please fax back. [facility] 06-09-2024 Telephone encounter Note Form received from [facility] placed on signing tray Priya Pedersen MA [facility] 06-08-2024 Telephone encounter Note Spoke with spouse. Cough increasing about 3-4 days ago with thick yellow production. No fever. Some sinus congestion and PND. No increased wheezing (he is on 5mg of prednisone daily). No sick contacts. Katelynn Huynh LPN [facility] 06-08-2024 Miscellaneous Notes Spoke with spouse. Cough increasing about 3-4 days ago with thick yellow production. No fever. Some sinus congestion and PND. No increased wheezing (he is on 5mg of prednisone daily). No sick contacts. Katelynn Huynh LPN documented in this encounter [facility] 05-28-2024 Telephone encounter Note Form needs signed for [facility] order: [id number] placed on signing tray Priya Pedersen MA [facility] 05-28-2024 Miscellaneous Notes Form needs signed for [facility] order: [id number] placed on signing tray Priya Pedersen MA documented in this encounter [facility] 05-26-2024 Telephone encounter Note Notes received from [facility] luis miguel signed in the back, placed on signing tray Priya Pedersen MA [facility] 05-26-2024 Miscellaneous Notes Notes received from [facility] luis miguel signed in the back, placed on signing tray Priya Pedersen MA documented in this encounter [facility] 05-25-2024 Telephone encounter Note Patient requesting refills: [...] Please review and advise. Suzanne Almaguer MA [facility] 05-25-2024 Miscellaneous Notes Patient requesting refills: Last [...] Suzanne Almaguer MA documented in this encounter [facility] 05-22-2024 Telephone encounter Note Form received from [facility] placed on signing tray Priya Pedersen MA [facility] 05-22-2024 Miscellaneous Notes Form received from [facility] placed on signing tray Priya Pedersen MA documented in this encounter [facility] 05-19-2024 Telephone encounter Note Fax received from [employer] [facility]. Only 2 pages received. Faxed back request to re-send fax with all pages. Annie Echeverria RN [facility] 05-19-2024 Miscellaneous Notes Fax received from [employer] [facility]. Only 2 pages received. Faxed back request to re-send fax with all pages. Annie Echeverria RN documented in this encounter [facility] 05-18-2024 Telephone encounter Note Patient electronically requesting [...] Please review and advise. Precious Lacy MA [facility] 05-18-2024 Miscellaneous Notes Patient electronically requesting refills [...] Precious Lacy MA documented in this encounter [facility] 04-29-2024 Telephone encounter Note Faxed, went through successfully. Suzanne Almaguer MA [facility] 04-29-2024 Miscellaneous Notes Faxed, went through successfully. Suzanne Almaguer MA Please fax over list of meds to number that patient provided. Thank you. documented in this encounter [facility] 04-29-2024 Telephone encounter Note Please fax over list of meds to number that patient provided. Thank you. [facility] 04-27-2024 Note [facility] 04-27-2024 History of Presen t illness Narrative PULM FUNCTION: Provider: Tru Simon MD Assisting Tech: Beba Rose RPFT Spirometry: 1 DLCO: 1 documented in this encounter [facility] 04-27-2024 Telephone encounter Note Received [employer] message request from Dr. 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 [facility] 04-27-2024 Miscellaneous Notes Received [employer] message request from Dr. 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 documented in this encounter [facility] 04-27-2024 Telephone encounter Note pharmacy electronically requesting [...] Please review and advise. Precious Lacy MA [facility] 04-27-2024 Miscellaneous Notes pharmacy electronically requesting refills [...] Precious Lacy MA documented in this encounter [facility] 04-22-2024 Tru Owusu MD - 04/22/2024 3:03 PM EST [employer] phone number Start prednisone 40 mg x 1 week, 30 mg x 1 week, 20 mg x 1 week, 10 mg x 1 week, then stop Stay on trelegy Stay on your oxygen Measure blood sugar twice daily while on the prednisone documented in this encounter [facility] 04-22-2024 Note [facility] 04-22-2024 History of Presen t illness Narrative Images from the original note were not included. Respiratory Gassaway Mars Peterson is a 68 year old male here for evaluation by the [facility] Interstitial Lung Disease Team. Consultation requested by Mitchell Caruso, AUG* for an opinion regarding ILD and my final recommendations will be communicated back to the requesting physician by way of shared Medical record or letter via US mail. Referring diagnosis: IPF: Idiopathic pulmonary fibrosis HISTORY OF PRESENT ILLNESS: here for evaluation of ILD Patient found out he had COPD about 18 months ago. He was being watched by a second shift supervisor. He started on spiriva initially but this [...] antibiotics. He was not seen by a second shift supervisor in the hospital owing to lack of second shift supervisor available at that facility. 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 Pulmonary Function Data PFT [...] pulmonary fibrosis and emphysema (CPFE) ([facility]) J43.9 LUNG DIFFUSION CAPACITY (DLCO) J84.10 2. Chronic respiratory failure with hypoxia ([facility]) J96.11 OXIMETRY - NOCTURNAL SPIROMETRY BASELINE ONLY LUNG DIFFUSION CAPACITY (DLCO) 3. Hypersensitivity pneumonitis ([facility]) J67.9 LUNG DIFFUSION CAPACITY (DLCO) 4. Gastroesophageal [...] oximetry ordered Start ofev, given number for O-RID, needs CMP every 12 weeks for monitoring Prednisone taper 40 mg, taper by 10 mg every 7 days Needs repeat echo to reevaluate for PH with CT findings, ?role for tyvaso Follow-up 4-6 weeks I spent a total of 64 minutes on the date of the service which included preparing to see the patient, xiaj-ot-fbev patient care, completing clinical documentation, and obtaining [...] RLE Tru Simon MD CC: Mitchell Caruso APRN.SPECIALTY THERAPIST documented in this encounter [facility] 04-20-2024 Telephone encounter Note Patient requesting refills: Last office visit 03/30/2024. Last refill 03/23/2024. Requested Prescriptions Pending Prescriptions Disp Refills guaiFENesin (MUCINEX) 600 mg 12 hr tablet 60 tablet 0 Sig: Take 1 tablet by mouth two times a day as needed for cold/allergy symptoms. Please review and advise. Suzanne Almaguer MA [facility] 04-20-2024 Miscellaneous Notes Patient requesting refills: Last office visit 03/30/2024. Last refill 03/23/2024. Requested Prescriptions Pending Prescriptions Disp Refills guaiFENesin (MUCINEX) 600 mg 12 hr tablet 60 tablet 0 Sig: Take 1 tablet by mouth two times a day as needed for cold/allergy symptoms. Please review and advise. Suzanne Almaguer MA documented in this encounter [facility] 04-20-2024 Telephone encounter Note Duplicate encounter. Katelynn Huynh LPN [facility] 04-20-2024 Miscellaneous Notes Duplicate encounter. Katelynn Huynh LPN documented in this encounter [facility] 04-16-2024 Note HNO ID: [id number] Author: QI ZAZUETA RN Service: ? 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 Signature: Qi Zazueta RN April 16, 2024 [facility] 04-16-2024 History of Presen t illness Narrative [...] to go for Care Concerns: Medication cost Aircraft Engine As[employer] plan for next outreach: No further follow-up needed at this time. Signature: Qi Zazueta RN April 16, 2024 documented in this encounter [facility] 04-16-2024 Telephone encounter Note Form to be signed received from [facility], placed on signing folder Priya Pedersen MA [facility] 04-16-2024 Miscellaneous Notes Form to be signed received from [employer], placed on signing folder Priya Pedersen MA documented in this encounter [facility] 04-16-2024 Note Patient Outreach (AG ACM) MARS PETERSON ([id number]) 1955 M [facility] Date Time Provider Department 04/16/24 QI ZAZUETA [facility] During your visit today, we recorded the following information about you: Qi Zazueta RN 04/16/2024 3:38 PM Signed AG TRANSITIONAL CARE MANAGEMENT (TCM) FOLLOW-UP NOTE Provider Action/FYI: Patient identified by name and date of : YES Spoke to: spouse Diagnosis: COPD Summary: Spoke with , she reports that patient is about the same. Bentleyn has an appointment with pulmonary 04/22 regarding ILD. Patient medication copay is $2,048, patient and plan to discuss at appointment. Patient remains active with home care. Reviewed COPD zones and encouraged to report any changes in symptoms. verbalized understanding. Health leads screening tool questions performed? 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 Signature: Qi Zazueta RN April 16, 2024 Allergies As of Date: 04/16/2024 Noted Allergy Reaction ANIMAL DANDER 08/21/2022 14 - Other: See Comments Comments: Anything with fur SEASONAL ALLERGIES 08/21/2022 14 - Other: See Comments Comments: Stuffy nose, headaches Date Reviewed: 03/30/2024 Reviewed by: Alma Gill APRN.SPECIALTY THERAPIST - Fully Assessed Reason for Visit: Transition [...] spray into each nostril every day - juipbvceqyw-anvzjjmvf-rfghjkrm (TRELEGY ELLIPTA) 200-62.5-25 mcg inhalation powder Inhale [...] chloride 0.65 % nasal spray Use 1 Elbert in the nose as needed. 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 [facility] 04-14-2024 Telephone encounter Note Script was sent 03/31/24 for a years supply. Precious Lacy MA [facility] 04-14-2024 Miscellaneous Notes Script was sent 03/31/24 for a years supply. Precious Lacy MA documented in this encounter [facility] 04-13-2024 Telephone encounter Note Verbal orders given. Suzanne Almaguer MA [facility] 04-13-2024 Miscellaneous Notes Verbal orders given. Suzanne Almaguer MA Ok to extend PT sessions. [facility] physical therapist is requesting to extend PT. For once a week for 4 weeks. Please advise. [facility] [phone]. Thank you. Suzanne Almaguer MA documented in this encounter [facility] 04-13-2024 Telephone encounter Note Ok to extend PT sessions. [facility] 04-13-2024 Telephone encounter Note [facility] physical therapist is requesting to extend PT. For once a week for 4 weeks. Please advise. [facility] [phone]. Thank you. Suzanne Almaguer MA [facility] 04-02-2024 Telephone encounter Note OFEV Prior Auth initiated via Covermymeds. Approved today by [employer] 2016 [place] Case: [id number], Status: Approved, Coverage Starts on: 01/02/2024 12:00:00 AM, Coverage Ends on: 04/02/2025 12:00:00 AM. Katelynn Huynh LPN [facility] 04-02-2024 Miscellaneous Notes OFEV Prior Auth initiated via Covermymeds. Approved today by [employer] 2017 [place] Case: [id number], Status: Approved, Coverage Starts on: 01/02/2024 12:00:00 AM, Coverage Ends on: 04/02/2025 12:00:00 AM. Katelynn Huynh LPN documented in this encounter [facility] 04-01-2024 History of Presen t illness Narrative AG TRANSITIONAL CARE MANAGEMENT (TCM) FOLLOW-UP NOTE Provider Action/FYI: Patient identified by name and date of : YES Spoke to: N/A Diagnosis: COPD Summary: TCM follow up call, no answer. Detailed message left. Health leads screening tool questions performed? 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 Author Type: Registered Nurse Type: Progress Notes Filed: 04/01/2024 15:33 Note Text: AG TRANSITIONAL CARE MANAGEMENT (TCM) FOLLOW-UP NOTE Provider Action/FYI: Patient identified by name and date of : YES Spoke to: N/A Diagnosis: COPD Summary: TCM follow up call, no answer. Detailed message left. Health leads screening tool questions performed? N/A N/A Concerns: Pharmacy change [employer] plan for next outreach: Will follow-up in 2 weeks Signature: Qi Zazueta RN April 01, 2024 [facility] 04-01-2024 Note Patient Outreach (AG ACM) MARS PETERSON ([id number]) 1955 [facility] Date Time Provider Department 04/01/24 QI ZAZUETA [facility] During your visit today, we [...] questions performed? N/A N/A Concerns: Pharmacy change [employer] plan for next outreach: Will follow-up in 2 weeks Signature: Qi Zazueta RN April 01, 2024 Allergies As of Date: 04/01/2024 Noted Allergy Reaction ANIMAL DANDER 08/21/2022 14 - Other: See Comments Comments: Anything with fur SEASONAL ALLERGIES 08/21/2022 14 - Other: See Comments Comments: Stuffy nose, headaches Date Reviewed: 03/30/2024 Reviewed by: Alma Gill APRN.SPECIALTY THERAPIST - Fully Assessed Reason for Visit: Transition [...] spray into each nostril every day - yipvcokjpug-zukaortba-gnvppqjk (TRELEGY ELLIPTA) 200-62.5-25 mcg inhalation powder Inhale [...] chloride 0.65 % nasal spray Use 1 Elbert in the nose as needed. - Lactobacillus [...] heart failure (HCC*11/23/2021 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*11/23/2021 CVA (cerebral vascular accident) [...] PTCA [Z98.61] 0 (more content not included)... [facility] 03-31-2024 Telephone encounter Note patient electronically requesting refills as follows: Last seen 03/30/24 . Last refill 02/25/24 . Requested Prescriptions Pending Prescriptions Disp Refills gabapentin (NEURONTIN) 300 mg capsule 150 capsule 2 Sig: TAKE 2 CAPSULES BY MOUTH EVERY MORNING AND 3 CAPSULES AT BEDTIME FOR 30 DAYS. Strength: 300 mg Please review and advise. Precious Lacy MA [facility] 03-31-2024 Miscellaneous Notes patient electronically requesting refills as follows: Last seen 03/30/24 . Last refill 02/25/24 . Requested Prescriptions Pending Prescriptions Disp Refills gabapentin (NEURONTIN) 300 mg capsule 150 capsule 2 Sig: TAKE 2 CAPSULES BY MOUTH EVERY MORNING AND 3 CAPSULES AT BEDTIME FOR 30 DAYS. Strength: 300 mg Please review and advise. Precious Lacy MA documented in this encounter [facility] 03-30-2024 Note HNO ID: [id number] Author: ALMA GILL APRN.SPECIALTY THERAPIST Service: ? Author Type: Nurse Practitioner Type: [...] neuropathy, and pulmonary nodule who presented to [facility] with complaints of shortness of breath [...] noted rare stap (more content not included)... [facility] 03-30-2024 History of Presen t illness Narrative [...] neuropathy, and pulmonary nodule who presented to [facility] with complaints of shortness of breath [...] in-home. - PRN nebulizer were ordered at DC to be used every 4 hours as needed for SOB/wheezing. - Patient instructed to follow up with pulm in 1-2 weeks. - BP was noted to be lower end of normal while at [place]. 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 50 mL [...] 59 Temp 97.9 Resp 18 Ht 6' 0 (1.83m) SpO2 98[3 l]% Physical Exam Vitals [...] on home supplemental oxygen - Trelegy daily, Duonebs prn 2. Dependence on supplemental oxygen - [...] Alma Gill APRN.EVANS documented in this encounter [facility] 03-27-2024 Instructions Mitchell Caruso APRN.EVANS - 03/27/2024 3:18 PM EST Prescription and open doors forms to be sent to speciality pharmacy to be able to start OFEV. 150 mg twice a day. Schedule echo and obtain labs. Oxygen testing at night on 2L oxygen. Schedule appointment with ILD specialist. The provider in [place] is Dr. Nelly Arguelles and the appointment number is [phone]. Plan to follow-up with Dr. Patel in 3 months. documented in this encounter [facility] 03-27-2024 History of Presen t illness Narrative Images from the original note were not included. 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 thiamine 100 mg tablet Commonly known as: VITAMIN B1 Take 1 tablet by mouth once daily. traZODone 100 mg tablet Commonly known as: DESYREL take 2 tablets by mouth daily at bedtime TRELEGY ELLIPTA 200-62.5-25 mcg inhalation powder Generic drug: jocblhjhblw-ugvbajbbz-eoazviab Inhale 1 Puff as instructed once daily. [...] are likely reactive. No new suspicious nodule. 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: WENCESLAO Transcribe Date/Time: Mar 13 2024 2:12P Dictated by : MATT REYES MD This examination was interpreted and the report reviewed and electronically signed by: MATT REYES MD on Mar 13 2024 2:28PM EST Results-Findings * * *Final Report* * * DATE OF EXAM: Mar 09 2024 2:24PM [facility] 0541 - CT CHEST WO IVCON / [...] reactive. Heart, pericardium, and thoracic vessels: Severe kashia coronary artery desiccation. Status post CABG. Normal [...] which included preparing to see the patient, vayk-si-pfbp patient care, completing clinical documentation, performing a medically appropriate examination, counseling and educating the patient/family/caregiver, and ordering medications, tests, or procedures. documented in this encounter [facility] 03-27-2024 Note [facility] 03-23-2024 Telephone encounter Note patient electronically requesting refills as follows: Last seen 03/02/24 . Last refill 02/11/24 . Requested Prescriptions Pending Prescriptions Disp Refills guaiFENesin (MUCINEX) 600 mg 12 hr tablet 60 tablet 0 Sig: Take 1 tablet by mouth two times a day as needed for cold/allergy symptoms. Please review and advise. Precious Lacy MA [facility] 03-23-2024 Miscellaneous Notes patient electronically requesting refills as follows: Last seen 03/02/24 . Last refill 02/11/24 . Requested Prescriptions Pending Prescriptions Disp Refills guaiFENesin (MUCINEX) 600 mg 12 hr tablet 60 tablet 0 Sig: Take 1 tablet by mouth two times a day as needed for cold/allergy symptoms. Please review and advise. Precious Lacy MA documented in this encounter [facility] 03-20-2024 Note HNO ID: [id number] Author: QI ZAZUETA RN Service: ? 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 plan for next outreach: Will follow-up in 2 weeks Signature: Qi Zazueta RN March 20, 2024 documented in this encounter [facility] 03-20-2024 Telephone encounter Note Form completed and faxed Priya Pedersen MA [facility] 03-20-2024 Miscellaneous Notes Form completed and faxed Priya Pedersen MA Form received from [facility] placed on signing trajose de jesus Pedersen MA documented in this encounter [facility] 03-20-2024 Telephone encounter Note Form received from [facility] placed on signing trajose de jesus Pedersen MA [facility] 03-20-2024 Note Patient Outreach (AG ACM) NICHOLASMARS ([id number]) 1955 M DEF Date Time Provider Department 03/20/24 QI ZAZUETA [facility] During your visit today, we [...] go for Care Concerns: Follow up appointment 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 - wfzmjospkkx-lxakerjht-kgvoxygj (TRELEGY ELLIPTA) 200-62.5-25 mcg inhalation powder Inhale [...] chloride 0.65 % nasal spray Use 1 Elbert in the nose as needed. - Lactobacillus [...] heart failure (HCC*11/23/2021 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*11/23/2021 CVA (cerebral vascular accident) ([facility]) [I63.9] 11/23/2021 11/20/2022 Neuropathy [G62.9] 11/23/2021 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] 11/23/2021 09/18/2023 Umbilical hernia [K42.9] 11/23/2021 Pressure injury of right buttock, stage 2 (HCC)*02/01/2022 09/18/2023 Pressure injury of left buttock, stage 2 (HCC) *02/01/2022 09/18/19 (more content not included)... [facility] 03-19-2024 Telephone encounter Note Form received from [facility] placed on signing tray they are wanting it completed urgently Priya Pedersen MA [facility] 03-19-2024 Miscellaneous Notes Form received from [facility] placed on signing tray they are wanting it completed urgently Priya Pedersen MA documented in this encounter [facility] 03-17-2024 Telephone encounter Note Royer PT with [facility] called stating he did patient's re-cert today and will be continuing to see patient once a week for 5 weeks. Precious Lacy MA [facility] 03-17-2024 Miscellaneous Notes Royer PT with [facility] called stating he did patient's re-cert today and will be continuing to see patient once a week for 5 weeks. Precious Lacy MA documented in this encounter [facility] 03-13-2024 Note HNO ID: [id number] Author: JOSE OLVERA MD Service: ? Author Type: Physician Type: Progress Notes Filed: 03/13/2024 18:43 Note Text: E-Consult Response In response to your eConsult request to [facility] for Mars Peterson regarding the clinical question: Is this UIP and any further workup needed?. History of present illness provided through requesting [...] group Jose Jacobs MD March 13, 2024 [facility] 03-13-2024 History of Presen t illness Narrative E-Consult Response In response to your eConsult request to [facility] for Mars Peterson regarding the clinical question: Is this UIP and any further workup needed?. History of present illness provided through requesting [...] March 13, 2024 documented in this encounter [facility] 03-13-2024 History of Presen t illness Narrative Images from the original note were not included. Pulmonary Medicine Patients name: Mars Lopez PCP: Alma Gill APRN.SPECIALTY THERAPIST CC: CT follow-up HPI: Mars Peterson is [...] family reports occurs at home. DME: unknown [facility] Currently wearing 3L supplemental oxygen continuously. 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 thiamine 100 mg tablet Commonly known as: VITAMIN B1 Take 1 tablet by mouth once daily. traZODone 100 mg tablet Commonly known as: DESYREL take 2 tablets by mouth daily at bedtime TRELEANITA ELLIPTA 200-62.5-25 mcg inhalation powder Generic drug: vhgjxiuozbb-klmwctimc-rchmoyfx Inhale 1 Puff as instructed once daily. [...] are likely reactive. No new suspicious nodule. 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: WENCESLAO Transcribe Date/Time: Mar 13 2024 2:12P Dictated by : MATT REYES MD This examination was interpreted and the report reviewed and electronically signed by: MATT REYES MD on Mar 13 2024 2:28PM EST Results-Findings * * *Final Report* * * DATE OF EXAM: Mar 09 2024 2:24PM [facility] 0541 - CT CHEST WO IVCON / [...] reactive. Heart, pericardium, and thoracic vessels: Severe kashia coronary artery desiccation. Status post CABG. Normal [...] Neut (k/uL) Date Value 01/12/2024 5.01 Abs [place] (k/uL) Date Value 01/12/2024 0.40 Abs Eosin [...] cause - discussed anti fibrotic therapy with Ofev. Discussed patient assistance program, agreeable. - will [...] which included preparing to see the patient, tifv-mn-kysd patient care, completing clinical documentation, performing a medically appropriate examination, counseling and educating the patient/family/caregiver, ordering medications, tests, or procedures, and communicating results to the patient/family/caregiver. documented in this encounter [facility] 03-13-2024 Procedure note Associated Ord er(s): OXIMETRY WITH AMBULATION Patient is unable to walk safely with walker to obtain ambulatory oximetry data. RANJITH Sky [facility] 03-13-2024 Procedure note Associated Ord er(s): OXIMETRY WITH AMBULATION Patient is unable to walk safely with walker to obtain ambulatory oximetry data. RANJITH Sky documented in this encounter [facility] 03-13-2024 History of Presen t illness Narrative PULM FUNCTION: Provider: Francisco Patel MD Assisting Tech: Beba Rose RPFT DLCO: 1 LV - Gas: 1 documented in this encounter [facility] 03-10-2024 Telephone encounter Note Patient requesting refills: Last office visit 03/02/2024. Last refill 03/02/2024 . Requested Prescriptions Pending Prescriptions Disp Refills escitalopram oxalate (LEXAPRO) 20 mg tablet 90 tablet 1 Sig: Take 1 tablet by mouth once daily. Please review and advise. Suzanne Almaguer MA [facility] 03-10-2024 Miscellaneous Notes Patient requesting refills: Last office visit 03/02/2024. Last refill 03/02/2024 . Requested Prescriptions Pending Prescriptions Disp Refills escitalopram oxalate (LEXAPRO) 20 mg tablet 90 tablet 1 Sig: Take 1 tablet by mouth once daily. Please review and advise. Suzanne Almaguer MA documented in this encounter [facility] 03-09-2024 Telephone encounter Note Patient's is informed and states his breathing is better since doing breathing treatments Priya Pedersen MA [facility] 03-09-2024 Miscellaneous Notes Patient's is informed and states his breathing is better since doing breathing treatments Priya Pedersen MA ----- Message from Alma Gill APRN.SPECIALTY THERAPIST sent at 03/09/2024 3:26 PM EDT ----- BNP is stable BMP showed kidney function is stable. Sodium was 129 which is up from 126. How is his breathing? documented in this encounter [facility] 03-09-2024 Telephone encounter Note ----- Message from Alma Gill APRN.SPECIALTY THERAPIST sent at 03/09/2024 3:26 PM EDT ----- BNP is stable BMP showed kidney function is stable. Sodium was 129 which is up from 126. How is his breathing? [facility] 03-02-2024 History of Presen t illness Narrative [...] neuropathy, and pulmonary nodule who presented to [facility] with complaints of shortness of breath [...] in-home. - PRN nebulizer were ordered at DC to be used every 4 hours as needed for SOB/wheezing. - Patient instructed to follow up with pulm in 1-2 weeks. - BP was noted to be lower end of normal while at [place]. Parameters placed on Lisinopril to hold if SBP less than 110. Take BP twice a day and record results to show PCP at f/u appointment. - Thiamine was started for chronic ETOH use. - PT/OT recommended SNF, but patient declined. He will have HHC services at home. - follow up with PCP in 1-2 weeks to discuss recent hospitalization. - return to the ED if symptoms return. 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 36 tablet 1 dbdqhiswpkh-ixvchkvcx-qsxtwgpm (TRELEGY ELLIPTA) 200-62.5-25 mcg inhalation powder Inhale [...] chloride 0.65 % nasal spray Use 1 Elbert in the nose as needed. 50 mL [...] (H) 74 - 99 mg/dL Final The [place] [employer] (ADA) provides guidance for cutoff [...] Standards of Medical Care in Diabetes 2016, [place] [employer]. Diabetes Care. 2016.39(Suppl 1). BUN [...] Monocytes % 01/11/2024 15.8 % Final Abs [place] 01/11/2024 1.55 (H) <0.87 k/uL Final Eosinophils [...] (Bazett) 01/11/2024 500 ms Final Calculated P [place] 01/11/2024 67 degrees Final Calculated R [place] 01/11/2024 8 degrees Final Calculated T [place] 01/11/2024 48 degrees Final SARS-CoV-2 (Agent of [...] please visit the Change in Procalcitonin Calculator, [email or web address]. Glucose 01/12/2024 192 (H) 74 - 99 mg/dL Final The [place] [employer] (ADA) provides guidance for cutoff [...] Standards of Medical Care in Diabetes 2016, [place] [employer]. Diabetes Care. 2016.39(Suppl 1). BUN [...] Monocytes % 01/12/2024 6.4 % Final Abs [place] 01/12/2024 0.40 <0.87 k/uL Final Eosinophils % [...] (H) 74 - 99 mg/dL Final The [place] [employer] (ADA) provides guidance for cutoff [...] Standards of Medical Care in Diabetes 2016, [place] [employer]. Diabetes Care. 2016.39(Suppl 1). BUN [...] (H) 74 - 99 mg/dL Final The [place] [employer] (ADA) provides guidance for cutoff [...] Standards of Medical Care in Diabetes 2016, [place] [employer]. Diabetes Care. 2016.39(Suppl 1). BUN [...] (H) 74 - 99 mg/dL Final The [place] [employer] (ADA) provides guidance for cutoff [...] Standards of Medical Care in Diabetes 2016, [place] [employer]. Diabetes Care. 2016.39(Suppl 1). BUN [...] (H) 74 - 99 mg/dL Final The [place] [employer] (ADA) provides guidance for cutoff [...] Standards of Medical Care in Diabetes 2016, [place] [employer]. Diabetes Care. 2016.39(Suppl 1). BUN [...] Alma Gill APRN.EVANS documented in this encounter [facility] 03-02-2024 Telephone encounter Note Pharmacy requesting refills as follows: Last Office Visit 02/27/24Mar today. Last Refill 02/05/24. Requested Prescriptions Pending Prescriptions Disp Refills busPIRone (BUSPAR) 5 mg tablet [Pharmacy Med Name: BUSPIRONE HCL 5 MG TABLET] 270 tablet 1 Sig: TAKE 1 TABLET BY MOUTH THREE TIMES A DAY NEEDED Please review and advise. Priya Pedersen MA [facility] 03-02-2024 Miscellaneous Notes Pharmacy requesting refills as follows: Last Office Visit 02/27/24Mar today. Last Refill 02/05/24. Requested Prescriptions Pending Prescriptions Disp Refills busPIRone (BUSPAR) 5 mg tablet [Pharmacy Med Name: BUSPIRONE HCL 5 MG TABLET] 270 tablet 1 Sig: TAKE 1 TABLET BY MOUTH THREE TIMES A DAY NEEDED Please review and advise. Priya Pedersen MA documented in this encounter [facility] 02-28-2024 Telephone encounter Note Form received from [facility] placed on signing trajose de jesus Pedersen MA [facility] 02-28-2024 Miscellaneous Notes Form received from [facility] placed on signing tray Priya Pedersen MA documented in this encounter [facility] 02-27-2024 History of Presen t illness Narrative [...] BKA TOMMY 11/21/23 documented in this encounter [facility] 02-27-2024 Instructions Francesco Tobias - 02/27/2024 2:37 PM EDT documented in this encounter [facility] 02-25-2024 Telephone encounter Note Patient requesting refills: Last office visit 09/03/2023. Last refill 12/23/2023 nov 03/02/2024 Requested Prescriptions Pending Prescriptions Disp Refills gabapentin (NEURONTIN) 300 mg capsule 150 capsule 2 Sig: TAKE 2 CAPSULES BY MOUTH EVERY MORNING AND 3 CAPSULES AT BEDTIME FOR 30 DAYS. Strength: 300 mg Please review and advise. Suzanne Almaguer MA [facility] 02-25-2024 Miscellaneous Notes Patient requesting refills: Last office visit 09/03/2023. Last refill 12/23/2023 03/02/2024 Requested Prescriptions Pending Prescriptions Disp Refills gabapentin (NEURONTIN) 300 mg capsule 150 capsule 2 Sig: TAKE 2 CAPSULES BY MOUTH EVERY MORNING AND 3 CAPSULES AT BEDTIME FOR 30 DAYS. Strength: 300 mg Please review and advise. Suzanne Almaguer MA documented in this encounter [facility] 02-21-2024 Telephone encounter Note Patient is informed Priya Pedersen MA [facility] 02-21-2024 Miscellaneous Notes Patient is informed Priya Pedersen MA Agree with plan. Royer KAYE from [facility] called and left a message stating that he wants to continue home visits with the patient. He just wants to know if PCP would agree that he can go out twice a week for additional three weeks, then once the following week. Please advise Priya Pedersen MA documented in this encounter [facility] 02-21-2024 Telephone encounter Note Agree with plan. [facility] 02-21-2024 Telephone encounter Note Royer KAYE from [facility] called and left a message stating that he wants to continue home visits with the patient. He just wants to know if PCP would agree that he can go out twice a week for additional three weeks, then once the following week. Please advise Priya Pedersen MA [facility] 02-18-2024 Telephone encounter Note Faxed Priya Pedersen MA [facility] 02-18-2024 Miscellaneous Notes Faxed Priya Pedersen MA A second from received from [facility] placed on signing chris Pedersen MA Form received from [facility] placed on signing chris Pedersen MA documented in this encounter [facility] 02-18-2024 Telephone encounter Note A second from received from [facility] placed on signing chris Pedersen MA [facility] 02-18-2024 Telephone encounter Note Form received from [facility] placed on signing tray Priya Pedersen MA [facility] 02-18-2024 History of Presen t illness Narrative AG TRANSITIONAL CARE MANAGEMENT (TCM) FOLLOW-UP NOTE Patient identified by name and date of : YES Spoke to: spouse Diagnosis: COPD Summary: TCM RN called for TCM f/u (D/C 01/16/24). Pt is doing a little bit better. He has to wear Home O2 03/12. states that when pt saw Cards on [...] gets out of breath when he moves quite a bit and exerts himself. No refills needed. No needs noted. She is aware of pt's PCP appointment on 03/02/24 at 3:20p. Health leads screening tool questions performed? 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 Signature: Lilian Sethi RN February 18, 2024 documented in this encounter [facility] 02-11-2024 Telephone encounter Note Rx for Mucinex requested by . Sent in. [facility] 02-11-2024 Miscellaneous Notes Rx for Mucinex requested by . Sent in. documented in this encounter [facility] 02-05-2024 Telephone encounter Note Nurse is informed Priya Pedersen MA [facility] 02-05-2024 Miscellaneous Notes Nurse is informed Priya Pedersen MA Will start Buspar 5 mg three times a day as needed for anxiety. A nurse from [facility] called and left a message stating that the patient has been having increased anxiety and will get SOB when anxious. She was wondering if he could have an increase or change in his medication Priya Pedersen MA documented in this encounter [facility] 02-05-2024 Telephone encounter Note Will start Buspar 5 mg three times a day as needed for anxiety. [facility] 02-05-2024 Telephone encounter Note A nurse from [facility] called and left a message stating that the patient has been having increased anxiety and will get SOB when anxious. She was wondering if he could have an increase or change in his medication Priya Pedersen MA [facility] 02-05-2024 Telephone encounter Note Patient requesting refills as follows: Last office visit: 09/03/23 Last refill: 09/25/23 Requested Prescriptions Pending Prescriptions Disp Refills colestipol (COLESTID) 1 gram tablet 180 tablet 1 Sig: Take 1 tablet by mouth two times a day. Please review and advise. Christelle Modi [facility] 02-05-2024 Miscellaneous Notes Patient requesting refills as follows: Last office visit: 09/03/23 Last refill: 09/25/23 Requested Prescriptions Pending Prescriptions Disp Refills colestipol (COLESTID) 1 gram tablet 180 tablet 1 Sig: Take 1 tablet by mouth two times a day. Please review and advise. 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 Do not take if your blood pressure is less than 100 mmHg documented in this encounter [facility] 02-03-2024 History of Presen t illness Narrative Images from the original note were not included. [facility] SECTION OF REGIONAL CARDIOLOGY [facility] Card[place] [facility] [facility] (POB)) [address] [facility] [id number] OUTPATIENT VISIT DATE 02/03/2024 PRIMARY CARE PHYSICIAN: Alma Gill [address] [place] [address] HISTORY OF PRESENT ILLNESS: Mr. Peterson is a 68 year old with a history of coronary artery disease and remote coronary bypass grafting, chronic diastolic congestive heart failure, hypertension, dyslipidemia, gastroesophageal reflux disease, peripheral arterial disease with history of right BKA who presents to the office for routine follow-up. 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 Lactobacillus acidophilus [...] or thickening. Status post CABG with severe kashia coronary artery atherosclerotic calcifications are noted, although [...] AND RECOMMENDATIONS: 1. 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) - [...] Beatrice Sarmiento MD documented in this encounter [facility] 01-29-2024 History of Presen t illness Narrative Patient: Mars Peterson PCP: Alma Gill APRN.SPECIALTY THERAPIST CC: hospital follow up HPI: Mars Peterson 68 year old male former 80 pack year smoker, quitting 2001 with PMH significant for obesity, CAD s/p CABG, CHF, HTN, PAD, s/p right BKA, neuropathy, asthma with mild COPD, ILD and lung nodule. Current maintenance therapy with Trelegy and as needed Albuterol. 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 Lactobacillus acidophilus [...] COVID-19 original vaccine, age 12+ yr, monovalent ([employer] - GUZMAN TOP) 09/09/2021 COVID-19 original vaccine, age 12+ yr, monovalent ([employer] - PURPLE TOP) 07/27/2020 08/18/2020 02/24/2021 COVID-19 original vaccine, booster dose, monovalent (MODERNA) 08/29/2023 COVID-19 vaccine, age 12+ yr ([employer]) 02/14/2023 COVID-19 vaccine, age 12+ yr, bivalent ([employer]) 03/12/2022 02/14/2023 influenza (HD-IIV3) vaccine, age 65+ [...] Collected: 11/20/2022 2:44 PM (Final result) Narrative: [facility] [address] [place] [address] Test Date: 2022-11-20 Pat Name: MARS PETERSON Department: Room: Gender: Male Lab Asst: : 1955 Requested By: Order Number: [id number] Reading MD: Francisco Patel MD Interpretive Statements [...] 17:28:26 EDT by Francisco Patel MD ID: [id number] Name: MARS PETERSON Race: White Ht: 72.00 in Wt: 274.00 lbs Age: 67 Gender: Male : 1955 Dx: Shortness of breath Smoking Hx: Non-smoker Doctor: FRANCISCO APTEL Test Date: 11/20/2022 Site: Tech: [facility] PRE-BRONCH POST-BRONCH Pre LLN Pred ULN %Pred [...] 1.14 109 FIVC (L) 3.01 2.98 0 AXA00-55 (L/sec) 0.89 1.14 2.60 4.65 34 1.11 [...] Lilian Rodríguez PA-C documented in this encounter [facility] 01-27-2024 Telephone encounter Note It's most likely from the Lovenox shots that he received while he was in the hospital. We can just monitor them at this time. [facility] 01-27-2024 Miscellaneous Notes It's most likely from the Lovenox shots that he received while he was in the hospital. We can just monitor them at this time. Lea RINCON from [facility] called and left a message stating that [...] Priya Pedersen MA documented in this encounter [facility] 01-27-2024 Telephone encounter Note Lea RINCON from [facility] called and left a message stating that [...] warmth, and no firmness Priya Pedersen MA [facility] 01-24-2024 Telephone encounter Note Left a message informing Royer Pedersen MA [facility] 01-24-2024 Miscellaneous Notes Left a message informing Royer Pedersen MA Verbal order for PT given. Royer PT from [facility] called he needs verbals to start patient's PT 2 times a week for 4 weeks and then 1 time a week for 4 weeks Priya Pedersen MA documented in this encounter [facility] 01-24-2024 Telephone encounter Note Verbal order for PT given. [facility] 01-24-2024 Telephone encounter Note Royer PT from [facility] called he needs verbals to start patient's PT 2 times a week for 4 weeks and then 1 time a week for 4 weeks Priya Pedersen MA [facility] 01-23-2024 Telephone encounter Note Lea RINCON from [facility] called to let Alma know when she [...] prep once a day. 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 Suzanne Almaguer MA [facility] 01-20-2024 Miscellaneous Notes Atilio on harsha with verbal ok. Suaznne Almaguer MA Yes, I will follow his [facility]. Beau from [facility] is wondering if you will follow patient for [facility] PT , OT and home health for bathing. Please advise. Suzanne Almaguer MA. Beau [phone] documented in this encounter [facility] 01-20-2024 Telephone encounter Note Yes, I will follow his [facility]. [facility] 01-20-2024 Telephone encounter Note Beau from [facility] is wondering if you will follow patient for [facility] PT , OT and home health for bathing. Please advise. Suzanne Almaguer MA. Beau [phone] [facility] 01-17-2024 History of Presen t illness Narrative TRANSITIONAL CARE MANAGEMENT (TCM) COMMUNITY MONITORING PROGRAM - [place] Provider Action/FYI: Declines scheduling TCM as is scheduled for open heart surgery 01/19 Patient wearing oxygen 2 liters nasal cannula, will increase to 3 liters if pulse ox less than 90% Patient to monitor blood pressure daily, encouraged to keep log and bring to appointment. [facility] care to begin services. Qi Zazueta RN SUMMARY: Pt discharged from [facility] on 01/16/24. Admitted for: Respiratory Failure [...] is to have open heart surgery 01/19. [facility] to begin home care services. Patient to monitor blood pressure daily, encouraged to keep a log and bring to appointment. verbalized understanding. Medications: Reviewed Follow up appointments: TCM declined, Cardiology 02/02 Hi my name is Qi Zazueta RN and I am calling from the [facility] [place] [facility] on behalf of your PCP, Alma Gill APRN.SPECIALTY THERAPIST I understand you were recently in the [...] 1 spray into each nostril every day sterxuijjbp-jgwosihzc-xdymuftn (TRELEGY ELLIPTA) 200-62.5-25 mcg inhalation powder Inhale [...] chloride 0.65 % nasal spray Use 1 Elbert in the nose as needed. thiamine (VITAMIN [...] like to speak with a social work paper steamer to help give you support for any [...] call on the way if possible). Qi Zazueta RN documented in this encounter [facility] 01-14-2024 Telephone encounter Note Yes, I will follow his [facility]. [facility] 01-14-2024 Miscellaneous Notes Yes, I will follow his [facility]. [facility] wants to know if alma gill will follow Priya Pedersen MA documented in this encounter [facility] 01-14-2024 Telephone encounter Note [facility] wants to know if alma gill will follow Priya Pedersen MA [facility] 01-03-2024 Telephone encounter Note pharm requesting refills: Last office visit 09/03/2023. Last refill 08/15/2023 nov none Requested Prescriptions Pending Prescriptions Disp Refills hydrOXYzine HCl (ATARAX) 25 mg tablet [Pharmacy Med Name: HYDROXYZINE HCL 25 MG TABLET] 360 tablet 1 Sig: take 1 tablet by mouth four times a day Please review and advise. Suzanne Almaguer MA [facility] 01-03-2024 Miscellaneous Notes pharm requesting refills: Last office visit 09/03/2023. Last refill 08/15/2023 nov none Requested Prescriptions Pending Prescriptions Disp Refills hydrOXYzine HCl (ATARAX) 25 mg tablet [Pharmacy Med Name: HYDROXYZINE HCL 25 MG TABLET] 360 tablet 1 Sig: take 1 tablet by mouth four times a day Please review and advise. Suzanne Almaguer MA documented in this encounter [facility] 01-03-2024 Telephone encounter Note pharm requesting refills: [...] Please review and advise. Suzanne Almaguer MA [facility] 01-03-2024 Miscellaneous Notes pharm requesting refills: Last [...] Suzanne Almaguer MA documented in this encounter [facility] 01-03-2024 Telephone encounter Note Patient's request for medication is as follows: Requested Prescriptions Pending Prescriptions Disp Refills ezetimibe (ZETIA) 10 mg tablet [Pharmacy Med Name: EZETIMIBE 10 MG TABLET] 90 tablet 3 Sig: take 1 tablet by mouth every day Patient last seen on 01/29/2023. Follow up on 02/03/2024. Prescription(s) as above. Please process accordingly. Briana Mcmillan LPN [facility] 01-03-2024 Miscellaneous Notes Patient's request for medication is as follows: Requested Prescriptions Pending Prescriptions Disp Refills ezetimibe (ZETIA) 10 mg tablet [Pharmacy Med Name: EZETIMIBE 10 MG TABLET] 90 tablet 3 Sig: take 1 tablet by mouth every day Patient last seen on 01/29/2023. Follow up on 02/03/2024. Prescription(s) as above. Please process accordingly. Briana Mcmillan LPN documented in this encounter [facility] 12-25-2023 Telephone encounter Note Patients ivania left message on voicemail. She states she is getting bypass surgery done 01/20/2024 and will be in hospital for 6 days. She wants to know if there is a service that can come out and take care of John for those days. Please advise with what kind of help john can get. Thanks. Suzanne Almaguer MA [facility] 12-25-2023 Miscellaneous Notes Patients ivania left message [...] Suzanne Almaguer MA documented in this encounter [facility] 12-23-2023 Telephone encounter Note pharmacy electronically requesting refills as follows: Last seen 09/03/23 . Last refill 11/22/23 . Requested Prescriptions Pending Prescriptions Disp Refills gabapentin (NEURONTIN) 300 mg capsule 150 capsule 0 Sig: TAKE 2 CAPSULES BY MOUTH EVERY MORNING AND 3 CAPSULES AT BEDTIME FOR 30 DAYS. Strength: 300 mg Please review and advise. Precious Lacy MA [facility] 12-23-2023 Miscellaneous Notes pharmacy electronically requesting refills as follows: Last seen 09/03/23 . Last refill 11/22/23 . Requested Prescriptions Pending Prescriptions Disp Refills gabapentin (NEURONTIN) 300 mg capsule 150 capsule 0 Sig: TAKE 2 CAPSULES BY MOUTH EVERY MORNING AND 3 CAPSULES AT BEDTIME FOR 30 DAYS. Strength: 300 mg Please review and advise. Precious Lacy MA documented in this encounter [facility] 12-12-2023 Telephone encounter Note Pharmacy requesting refills as follows: Last Office Visit: 09/03/2023 Last Refill: 09/10/2023 Next Office Visit: No future apt Requested Prescriptions Pending Prescriptions Disp Refills fluticasone (FLONASE) 50 mcg/actuation nasal spray [Pharmacy Med Name: FLUTICASONE PROP 50 MCG SPRAY] 48 mL 1 Sig: spray 1 spray into each nostril every day Please review and advise. 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 Lactobacillus acidophilus [...] has no further questions. Rosemary Russell MD [facility] Work Phone: 11-29-2023 History and physical note HISTORY AND PHYSICAL Mars Peterson 1955 REFERRING PHYSICIAN: Mone Robertson PA-C CHIEF COMPLAINT: No chief complaint on file. 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 Lactobacillus acidophilus [...] has no further questions. 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 Lactobacillus acidophilus [...] Rosemary Russell MD HISTORY AND PHYSICAL Mars Kaiser Nicholas 1955 REFERRING PHYSICIAN: Mone Robertson PA-C CHIEF COMPLAINT: No chief complaint on file. 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 Lactobacillus acidophilus [...] Rosemary Russell MD documented in this encounter [facility] 11-22-2023 Telephone encounter Note pharmacy electronically requesting refills as follows: Last seen 09/03/23 . Last refill 10/21/23 . Requested Prescriptions Pending Prescriptions Disp Refills gabapentin (NEURONTIN) 300 mg capsule 150 capsule 0 Sig: TAKE 2 CAPSULES BY MOUTH EVERY MORNING AND 3 CAPSULES AT BEDTIME FOR 30 DAYS. Strength: 300 mg Please review and advise. Precious Lacy MA [facility] 11-22-2023 Miscellaneous Notes pharmacy electronically requesting refills as follows: Last seen 09/03/23 . Last refill 10/21/23 . Requested Prescriptions Pending Prescriptions Disp Refills gabapentin (NEURONTIN) 300 mg capsule 150 capsule 0 Sig: TAKE 2 CAPSULES BY MOUTH EVERY MORNING AND 3 CAPSULES AT BEDTIME FOR 30 DAYS. Strength: 300 mg Please review and advise. Precious Lacy MA documented in this encounter [facility] 11-21-2023 History of Presen t illness Narrative Radiology Service Progress Note PATIENT NAME: Mars Peterson DATE OF SERVICE: November 21, 2023 TIME: [...] PATIENT PRESENTS WITH AN IMPLANTABLE OR ATTACHED RN ACUTE: No RADIOLOGY DEPARTMENT: General X-ray: Exam(s) Completed: Lower Extremity X-Ray(s): Toes, Left 2nd PERIPHERAL IV DATA: Not applicable SIGNED BY: RT Emily(R) November 21, 2023 11:19 AM documented in this encounter [facility] 11-21-2023 Telephone encounter Note Faxed over cardiac clearance to Dr. Sarmiento to hold Plavix. Also messaged carpenter ship for Walter to find out if patient would need a PACC appointment prior to procedure. Blanca White [facility] 11-21-2023 Miscellaneous Notes Faxed over cardiac clearance to Dr. Sarmiento to hold Plavix. Also messaged carpenter ship for Walter to find out if patient would need a PACC appointment prior to procedure. Blanca White documented in this encounter [facility] 11-21-[address] uRssell please advise on if patient is to stop blood thinners or not Joy Sanchez Aerodynamics Engineer [facility] 11-21-[address] Russell please advise on if patient is to stop blood thinners or not Joy Sanchez Aerodynamics Engineer documented in this encounter [facility] 11-21-2023 Instructions Francesco Tobias - 11/21/2023 10:59 AM EDT Would apply topical antibiotic to left 2nd toe daily until healed. documented in this encounter [facility] 11-21-2023 History of Presen t illness Narrative [...] last 1 encounters. 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 Lactobacillus acidophilus [...] present to digits Narrative Non-Invasive Vascular Laboratory [facility] Lower Extremity Arterial Physiology Study Bilateral/Complete Date [...] Normal at rest. Technologist: Davina Vaughn RVT, [facility] [[email or web address]] Ordering physician: KATELYNN KNOWLES Interpreting physician: ELPIDIO [...] ulceration. Francesco Tobias DPM Podiatry [address] [facility] [address] Dept: [phone] Dept Patient presents with: Left Foot - New Patient, Peripheral Vascular Disease (PVD) is with patient today. Here for a foot check. His toenail on L 2nd toe fell off this morning. History of BKA, R, peripheral vascular disease. No open wounds on foot. documented in this encounter [facility] 11-20-2023 Telephone encounter Note pharm requesting refills: [...] Please review and advise. Suzanne Almaguer MA [facility] 11-20-2023 Miscellaneous Notes pharm requesting refills: Last [...] Suzanne Almaguer MA documented in this encounter [facility] 11-04-2023 Telephone encounter Note pharmacy electronically requesting refills as follows: Last seen 09/03/23 . Last refill 05/14/23 . Requested Prescriptions Pending Prescriptions Disp Refills lisinopril (ZESTRIL) 10 mg tablet [Pharmacy Med Name: LISINOPRIL 10 MG TABLET] 90 tablet 1 Sig: take 1 tablet by mouth every day Please review and advise. Precious Lacy MA [facility] 11-04-2023 Miscellaneous Notes pharmacy electronically requesting refills as follows: Last seen 09/03/23 . Last refill 05/14/23 . Requested Prescriptions Pending Prescriptions Disp Refills lisinopril (ZESTRIL) 10 mg tablet [Pharmacy Med Name: LISINOPRIL 10 MG TABLET] 90 tablet 1 Sig: take 1 tablet by mouth every day Please review and advise. Precious Lacy MA documented in this encounter [facility] 11-04-2023 Telephone encounter Note Patients called saying that her has an appt for colonoscopy 11/[address] Russell. I do not see it schedule. Please call her [phone]. [facility] 11-04-2023 Miscellaneous Notes Patients called saying that her has an appt for colonoscopy 11/[address] Russell. I do not see it schedule. Please call her [phone]. documented in this encounter [facility] 10-31-2023 Telephone encounter Note ----- Message from Alma Gill APRN.SPECIALTY THERAPIST sent at 10/31/2023 2:22 PM EDT ----- Please let patient's know that his stool studies were negative for cdiff or bacterial infection. Thank you. [facility] 10-31-2023 Miscellaneous Notes ----- Message from Alma Gill APRN.SPECIALTY THERAPIST sent at 10/31/2023 2:22 PM EDT ----- Please let patient's know that his stool studies were negative for cdiff or bacterial infection. Thank you. documented in this encounter [facility] 10-31-2023 Telephone encounter Note Pharmacy requesting refills as follows: Last Office Visit 09/03/23 NOV none. Last Refill 05/20/23. Requested Prescriptions Pending Prescriptions Disp Refills furosemide (LASIX) 40 mg tablet [Pharmacy Med Name: FUROSEMIDE 40 MG TABLET] 36 tablet 1 Sig: TAKE 1 TABLET BY MOUTH THREE TIMES A WEEK. Please review and advise. Priya Pedersen MA [facility] 10-31-2023 Miscellaneous Notes Pharmacy requesting refills as follows: Last Office Visit 09/03/23 NOV none. Last Refill 05/20/23. Requested Prescriptions Pending Prescriptions Disp Refills furosemide (LASIX) 40 mg tablet [Pharmacy Med Name: FUROSEMIDE 40 MG TABLET] 36 tablet 1 Sig: TAKE 1 TABLET BY MOUTH THREE TIMES A WEEK. Please review and advise. Priya Pedersen MA documented in this encounter [facility] 10-28-2023 Telephone encounter Note Spoke with Ivania about patient's test results. Ivania verbalizes understanding. Lilian Rodriguez LPN [facility] 10-28-2023 Miscellaneous Notes Spoke with Ivania about patient's test results. Ivania verbalizes understanding. Lilian Rodriguez LPN ----- Message from Mine Brady APRN.SPECIALTY THERAPIST sent at 10/28/2023 2:15 PM EDT ----- Please call the patient and report lab results revealed chronically low sodium and chloride, normal liver enzymes, normal kidney function, and good cholesterol control. Mine Brady APRN.SPECIALTY THERAPIST documented in this encounter [facility] 10-28-2023 Telephone encounter Note ----- Message from Mine Brady APRN.SPECIALTY THERAPIST sent at 10/28/2023 2:15 PM EDT ----- Please call the patient and report lab results revealed chronically low sodium and chloride, normal liver enzymes, normal kidney function, and good cholesterol control. Mine Brady APRN.SPECIALTY THERAPIST [facility] 10-21-2023 Telephone encounter Note pharmacy electronically requesting [...] Please review and advise. Precious Lacy MA [facility] 10-21-2023 Miscellaneous Notes pharmacy electronically requesting refills [...] Precious Lacy MA documented in this encounter [facility] 10-16-2023 Telephone encounter Note pharmacy electronically requesting refills as follows: Last seen 09/03/23 . Last refill 01/21/23 . Requested Prescriptions Pending Prescriptions Disp Refills escitalopram oxalate (LEXAPRO) 20 mg tablet [Pharmacy Med Name: ESCITALOPRAM 20 MG TABLET] 90 tablet 1 Sig: take 1 tablet by mouth every day Please review and advise. Precious Lacy MA [facility] 10-16-2023 Miscellaneous Notes pharmacy electronically requesting refills as follows: Last seen 09/03/23 . Last refill 01/21/23 . Requested Prescriptions Pending Prescriptions Disp Refills escitalopram oxalate (LEXAPRO) 20 mg tablet [Pharmacy Med Name: ESCITALOPRAM 20 MG TABLET] 90 tablet 1 Sig: take 1 tablet by mouth every day Please review and advise. Precious Lacy MA documented in this encounter [facility] 10-15-2023 History of Presen t illness Narrative Images from the original note were not included. 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 Lactobacillus acidophilus [...] TIME: 11:59 AM documented in this encounter [facility] 10-01-2023 Telephone encounter Note Patients Ivania called to reschedule her husbands colonsocopy. Ivania can be reached at [phone] [facility] 10-01-2023 Miscellaneous Notes Patients Ivania called to reschedule her husbands colonsocopy. Ivania can be reached at [phone] documented in this encounter [facility] 09-25-2023 Telephone encounter Note Pharmacy comment: REQUEST FOR 90 DAYS PRESCRIPTION. DX Code Needed. [facility] 09-25-2023 Miscellaneous Notes Pharmacy comment: REQUEST FOR 90 DAYS PRESCRIPTION. DX Code Needed. documented in this encounter [facility] 09-20-2023 Telephone encounter Note patient electronically requesting refills as follows: Last seen 09/03/23 . Last refill 08/19/23 . Requested Prescriptions Pending Prescriptions Disp Refills gabapentin (NEURONTIN) 300 mg capsule 150 capsule 0 Sig: TAKE 2 CAPSULES BY MOUTH EVERY MORNING AND 3 CAPSULES AT BEDTIME FOR 30 DAYS. Strength: 300 mg Please review and advise. Precious Lacy MA [facility] 09-20-2023 Miscellaneous Notes patient electronically requesting refills as follows: Last seen 09/03/23 . Last refill 08/19/23 . Requested Prescriptions Pending Prescriptions Disp Refills gabapentin (NEURONTIN) 300 mg capsule 150 capsule 0 Sig: TAKE 2 CAPSULES BY MOUTH EVERY MORNING AND 3 CAPSULES AT BEDTIME FOR 30 DAYS. Strength: 300 mg Please review and advise. Precious Lacy MA documented in this encounter [facility] 09-10-2023 Telephone encounter Note Pharmacy comment: REQUEST FOR 90 DAYS PRESCRIPTION. DX Code Needed. [facility] 09-10-2023 Miscellaneous Notes Pharmacy comment: REQUEST FOR 90 DAYS PRESCRIPTION. DX Code Needed. documented in this encounter [facility] 09-09-2023 Telephone encounter Note EPIC down so could not put in orders. Needs PFTs at [place] now and chest CT at [place] in one year [facility] 09-09-2023 Miscellaneous Notes EPIC down so could not put in orders. Needs PFTs at [place] now and chest CT at [place] in one year documented in this encounter [facility] 09-09-2023 History of Presen t illness Narrative Images from the original note were not included. . [facility] [place] Note Patient name: Mars Peterson PCP: Alma Gill APRN.SPECIALTY THERAPIST CC: Follow-up chest CT HPI: Mars Peterson [...] DATE OF EXAM: May 20 2023 5:17PM [facility] 0541 - CT CHEST WO IVCON / [...] or thickening. 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 ezetimibe (ZETIA) 10 mg tablet Take 1 tablet by mouth once daily. escitalopram oxalate (LEXAPRO) 20 mg tablet Take 1 tablet by mouth once daily. sodium chloride 0.65 % nasal spray Use 1 Elbert in the nose as needed. Lactobacillus acidophilus [...] 1 year COPD, mild -See #1 -Former [id number] smoker having quit in 2001. Does not qualify for lung cancer screening program based on duration of his smoking cessation -Continue Trelegy Ellipta -Refilled prescriptions Class 2 obesity -BMI 36 -Weight loss advised Francisco Patel MD [facility] [place] documented in this encounter [facility] 09-03-2023 Nurse Note Ambulatory Ear Lavage Pre-treatment: No pre-treatment Treatment: Both ears Equipment and Irrigation solution and Volume used: Single use syringe with single use irrigation tip Return flow appearance: Shar Patient tolerated procedure: yes Tympanic membrane assessment: Tympanic membrane assessed by LIP pre and post procedure Priya Pedersen MA [facility] 09-03-2023 Nurse Note Ambulatory Ear Lavage Pre-treatment: No pre-treatment Treatment: Both ears Equipment and Irrigation solution and Volume used: Single use syringe with single use irrigation tip Return flow appearance: Shar Patient tolerated procedure: yes Tympanic membrane assessment: Tympanic membrane assessed by LIP pre and post procedure Priya Pedersen MA documented in this encounter [facility] 09-03-2023 Instructions Alma Gill APRN.SPECIALTY THERAPIST - 09/03/2023 3:59 PM EDT Low FODMAP [...] juices made of apple, pear, allie Kombucha [place] juice in quantities over 100ml Rum Sodas containing High Fructose Boomer Syrup (HFCS) Soy milk made with soy beans - commonly found in [employer] drinks Tea: Black tea with added [...] Figs Goji berries Grapefruit Guava, unripe Lychee [place] Nectarines Paw paw, dried Peaches Pears Persimmon [...] Wheat flour Wheat noodles Wheat rolls Wheatgerm [place] meal Amaranth flour Barley including flour Bran cereals Bread: Granary bread Multigrain bread Naan Oatmeal bread Pumpernickel bread Roti Sourdough with kamut Cashews Cous cous Einkorn flour Freekeh Gnocchi Granola bar Muesli cereal Muesli bar Pistachios Potrero Potrero crispbread [place] Spelt flour Meats, Poultry and Meat Substitutes Chorizo Sausages documented in this encounter [facility] 09-03-2023 History of Presen t illness Narrative [...] multiple times a day, describes it as brown water. He has tried multiple OTC treatments including [...] has had an EGD and it was good. He follows with Dr. Fatima with cardiology- checking lipid panel in October [place] was normal The history is provided by the patient. No wind field manager was used. 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 50 mL [...] EACH NOSTRIL EVERY DAY 24 mL 2 qrdzblydkcg-yqnftnmpm-ruuehvtm (TRELEGY ELLIPTA) 200-62.5-25 mcg inhalation powder Inhale [...] Report 06/20/2023 Final Value:Surgical Pathology Report Case: [id number] Authorizing Provider: David Lee MD Collected: 06/20/2023 [...] Alma Gill APRN.EVANS documented in this encounter [facility] 09-03-2023 History of Presen t illness Narrative [...] 2023 11:18 AM documented in this encounter [facility] 08-30-2023 History of Presen t illness Narrative POPULATION HEALTH NAVIGATION OUTREACH Action/FYI lvm Reason for Outreach Care Gap/HCC or Scheduling Wellness Visits Care Gaps due: Follow-up Appointment Patient Contacted: Unable or unnecessary to reach patient: Left message Navigation Signature: Carlyn Dyson August 30, 2023 11:57 AM documented in this encounter [facility] 08-29-2023 History of Presen t illness Narrative Images from the original note were not included. [facility] [place] DEPARTMENT OF VASCULAR SURGERY OUTPATIENT VISIT DATE August 29, 2023 OUTPATIENT VISIT TYPE CONSULTATION SERVICE DATE: 08/29/2023 SERVICE TIME: 2:21 PM PRIMARY CARE PHYSICIAN: Alma Gill APRN.CNP REFERRING PROVIDER: SELF Consult requested for an [...] below the knee amputation in 2018 in [facility] due to peripheral arterial disease with osteomyelitis and gangrene. PAIN ASSESSMENT: PAIN EVALUATION No data found in the last 1 encounters. 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 ezetimibe (ZETIA) 10 mg tablet Take 1 tablet by mouth once daily. escitalopram oxalate (LEXAPRO) 20 mg tablet Take 1 tablet by mouth once daily. sodium chloride 0.65 % nasal spray Use 1 Elbert in the nose as needed. Lactobacillus acidophilus [...] Most recent imaging Reviewed PVR report from [place] 2018- Right leg with moderate disease, Left [...] TIME: 2:21 PM documented in this encounter [facility] 08-26-2023 Miscellaneous Notes No we can disregard the CT chest follow up. Patient had a CT chest done 05/20/23 ordered by his second shift supervisor. Please advise if this still needs completed. Precious Lacy MA ----- Message from Suzanne Almaguer MA sent at 08/23/2022 11:00 AM EDT ----- Remind pt. Time to recheck CT chest. (Lung nodule) see telephone encounter -mychart 08/23/2022 documented in this encounter [facility] 08-23-2023 Miscellaneous Notes Pharmacy requesting refills as follows: Last Office Visit 09/13/22 NOV 09/03/23. Last Refill 02/28/23. Requested Prescriptions Pending Prescriptions Disp Refills clopidogrel (PLAVIX) 75 mg tablet [Pharmacy Med Name: CLOPIDOGREL 75 MG TABLET] 90 tablet 1 Sig: take 1 tablet by mouth every day Please review and advise. Priya Pedersen MA documented in this encounter [facility] 08-20-2023 Miscellaneous Notes Pharmacy comment: REQUEST FOR 90 DAYS PRESCRIPTION. DX Code Needed. documented in this encounter [facility] 08-19-2023 Miscellaneous Notes pt requesting refills: Last office visit 09/13/2022. Last refill 07/19/2023 nov 09/03/2023 Requested Prescriptions Pending Prescriptions Disp Refills gabapentin (NEURONTIN) 300 mg capsule 150 capsule 0 Sig: TAKE 2 CAPSULES BY MOUTH EVERY MORNING AND 3 CAPSULES AT BEDTIME FOR 30 DAYS. Strength: 300 mg Please review and advise. Suzanne Almaguer MA documented in this encounter [facility] 08-15-2023 Miscellaneous Notes pharmacy electronically requesting refills [...] Precious Lacy MA documented in this encounter [facility] 08-06-2023 Miscellaneous Notes TOMMY 07/05/22 Maurice GARNICA NOV not scheduled documented in this encounter [facility] 07-25-2023 Miscellaneous Notes patient electronically requesting refills as follows: Last seen 09/13/22 . Last refill 10/16/22 . No future appointments Requested Prescriptions Pending Prescriptions Disp Refills isosorbide mononitrate ER (IMDUR) 30 mg 24 hr tablet 30 tablet 11 Sig: Take 1 tablet by mouth once daily. Please review and advise. Precious Lacy MA documented in this encounter [facility] 07-22-2023 Instructions Beatrice Sarmiento MD - 07/22/2023 11:29 AM EDT We are changing the Pravastatin to Rosuvastatin 20 mg once per day documented in this encounter [facility] 07-22-2023 History of Presen t illness Narrative Images from the original note were not included. [facility] SECTION OF [facility] CARDIOLOGY [facility] Cardiology [place] [facility] [facility] [address] [facility] [address] OUTPATIENT VISIT DATE 07/22/2023 PRIMARY CARE PHYSICIAN: Alma Gill [address] [place] [id number] HISTORY OF PRESENT ILLNESS: Mr. 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 Lactobacillus acidophilus [...] or thickening. Status post CABG with severe kashia coronary artery atherosclerotic calcifications are noted, although [...] AND RECOMMENDATIONS: 1. 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) - [...] Beatrice Sarmiento MD documented in this encounter [facility] 07-18-2023 Miscellaneous Notes Patient requesting refills as follows: Last Office Visit 09/13/22. Last Refill 06/20/23. Requested Prescriptions Pending Prescriptions Disp Refills gabapentin (NEURONTIN) 300 mg capsule 150 capsule 0 Sig: TAKE 2 CAPSULES BY MOUTH EVERY MORNING AND 3 CAPSULES AT BEDTIME FOR 30 DAYS. Strength: 300 mg Please review and advise. Priya Pedersen MA documented in this encounter [facility] 06-27-2023 Miscellaneous Notes Spoke with Joy Sanchez. She will contact John and help get him scheduled with Dr. Lee in [place] and go over Golytle prep. Blanca White New screening colonoscopy order placed. Recommend Golytely and clear liquids for 2 days. Please send patient scheduling information for [place]. Thank you! documented in this encounter [facility] 06-27-2023 Instructions Mone Robertson PA-C - 06/27/2023 [...] If you do not have a responsible medical delivery driver (family member or friend) with you to [...] If you do not have a responsible medical delivery driver (family member or friend) with you to take you home, your exam cannot be done with sedation and will be cancelled. Please bring a list of all of your current medications, including any Xiof-tyl-Eyqtqtr medications with you. Medications If you take [...] exam. 2 04/2019 documented in this encounter [facility] 06-20-2023 Nurse Note Abdomen soft non-distended. Will continue to monitor. documented in this encounter [facility] 06-20-2023 Miscellaneous Notes Patient requesting refills: Last office visit 09/13/2022. Last refill 05/08/2023 nov none Requested Prescriptions Pending Prescriptions Disp Refills gabapentin (NEURONTIN) 300 mg capsule 150 capsule 0 Sig: TAKE 2 CAPSULES BY MOUTH EVERY MORNING AND 3 CAPSULES AT BEDTIME FOR 30 DAYS. Strength: 300 mg Please review and advise. Suzanne Almaguer MA documented in this encounter [facility] 06-20-2023 History and physical note CHIEF COMPLAINT: Patient presents with: Rectal Problem: Had blood in stool- Last colonoscopy 2006 This consult was requested by No ref. provider found for an opinion regarding rectal bleeding. My final recommendations will be communicated to the requesting health care provider by way of the shared medical record for internal providers or letter via the [employer] for external providers. HPI: Mars [...] Denies abdominal pain. 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 No dysthagia, nausea, vomiting. No smoking. 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 (Patient not [...] Examination: BP 136/76 Pulse 60 Ht 6' 1 (1.85m) Wt 277 lb (125.6kg) BMI 36.55 [...] which included preparing to see the patient, [id number] patient care, completing clinical documentation, obtaining and/or [...] TIME: 7:30 AM documented in this encounter [facility] 04-26-2023 Miscellaneous Notes Patient's request for medication [...] Tammy Harris LPN documented in this encounter [facility] 04-23-2023 Instructions Mone Robertson PA-C - 04/23/2023 [...] If you do not have a responsible medical delivery driver (family member or friend) with you to take you home, your exam cannot be done with sedation and will be cancelled. Please bring a list of all of your current medications, including any Ownx-enb-Nleckws medications with you. Medications If you take [...] exam. 2 04/2019 documented in this encounter [facility] 04-23-2023 History of Presen t illness Narrative CHIEF COMPLAINT: Patient presents with: Rectal Problem: Had blood in stool- Last colonoscopy 2006 This consult was requested by No ref. provider found for an opinion regarding rectal bleeding. My final recommendations will be communicated to the requesting health care provider by way of the shared medical record for internal providers or letter via the [employer] for external providers. HPI: Mars [...] Denies abdominal pain. 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 No dysthagia, nausea, vomiting. No smoking. 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 (Patient not [...] Examination: BP 136/76 Pulse 60 Ht 6' 1 (1.85m) Wt 277 lb (125.6kg) BMI 36.55 [...] which included preparing to see the patient, wole-fq-audb patient care, completing clinical documentation, obtaining and/or reviewing separately obtained history, performing a medically appropriate examination, counseling and educating the patient/family/caregiver, and ordering medications, tests, or procedures. Mone Robertson PA-C April 23, 2023 3:19 PM documented in this encounter [facility] 04-15-2023 Miscellaneous Notes Pharmacy requesting refills as follows: Last Office Visit 09/13/22. Last Refill 03/18/23. Requested Prescriptions Pending Prescriptions Disp Refills gabapentin (NEURONTIN) 300 mg capsule 150 capsule 0 Sig: TAKE 2 CAPSULES BY MOUTH EVERY MORNING AND 3 CAPSULES AT BEDTIME FOR 30 DAYS. Strength: 300 mg Please review and advise. Priya Pedersen MA documented in this encounter [facility] 04-15-2023 Miscellaneous Notes RX available at [facility]. Discussed at office visit. Katelynn Huynh LPN documented in this encounter [facility] 04-15-2023 History of Presen t illness Narrative Images from the original note were not included. Patient: Mars Peterson PCP: Alma iGll APRN.SPECIALTY THERAPIST CC: follow up HPI: Mars Peterson 67 year old obese male former 85-xhsd-encx smoker having quit in 2001 with PMH [...] Date CHF (congestive heart failure) ([facility]) Chronic low back pain Coronary artery disease 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 DJD (degenerative joint disease) Essential hypertension Heart attack ([facility]) 1999 States his previous subsea engineer told him he had a heart attack based on EKG (in [place]) Neuropathy Osteomyelitis of foot ([facility]) Peripheral vascular disease ([facility]) S/P CABG (coronary artery bypass [...] 1 SPRAY INTO EACH NOSTRIL EVERY DAY nywsejthxav-ehhwuzsuk-qzjiriyv (TRELEGY ELLIPTA) 200-62.5-25 mcg inhalation powder Inhale [...] chloride 0.65 % nasal spray Use 1 Elbert in the nose as needed. albuterol sulfate [...] in EMR. IMMUNIZATIONS Prevnar - 11/08/2022 Pneumovax 23 - 05/2021 Influenza - 02/2023 COVID-19 - [...] 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 ([facility]) - ICD9: 496, ICD10: J44.9 [...] Will order and patient to schedule at [place]. - CT CHEST WO IVCON 3. Class 2 obesity due to excess calories with body mass index (BMI) of 36.0 to 36.9 in adult, unspecified whether serious comorbidity present - ICD9: 278.00, V85.36, ICD10: E66.09, Z68.36 Weight loss advised. 4. ILD (interstitial lung disease) ([facility]) - ICD9: 515, ICD10: J84.9 [...] Lilian Rodríguez PA-C documented in this encounter [facility] 04-03-2023 Miscellaneous Notes Faxed signed orders by Lilian Rodríguez PA-C to [facility]. documented in this encounter [facility] 10-27-2023 Miscellaneous Notes Pharmacy comment: REQUEST FOR 90 DAYS PRESCRIPTION. DX Code Needed. documented in this encounter [facility] 03-04-2023 History of Presen t illness Narrative Images from the original note were not included. Patient: Mars Peterson PCP: Alma Gill APRN.SPECIALTY THERAPIST CC: follow up HPI: Mars Peterson 67 year old male obese male former 20-pgce-cbdr smoker having quit in 2001 with PMH [...] Date CHF (congestive heart failure) ([facility]) Chronic low back pain Coronary artery disease 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 DJD (degenerative joint disease) Essential hypertension Heart attack ([facility]) 1999 States his previous subsea engineer told him he had a heart attack based on EKG (in [place]) Neuropathy Osteomyelitis of foot ([facility]) Peripheral vascular disease ([facility]) S/P CABG (coronary artery bypass [...] (FLONASE) 50 mcg/actuation nasal spray Use 1 Elbert in each nostril once daily. sodium chloride 0.65 % nasal spray Use 1 Elbert in the nose as needed. albuterol sulfate [...] 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 ([facility]) - ICD9: 496, ICD10: J44.9 [...] 4. ILD (interstitial lung disease) ([facility]) - ICD9: 515, ICD10: J84.9 [...] Lilian Rodríguez PA-C documented in this encounter [facility] 02-28-2023 Miscellaneous Notes Last OV 09/13/22 Labs 11/08/22 Pharmacy calls in requesting the following refill(s): Requested Prescriptions Pending Prescriptions Disp Refills clopidogrel (PLAVIX) 75 mg tablet [Pharmacy Med Name: CLOPIDOGREL 75 MG TABLET] 90 tablet 0 Sig: take 1 tablet by mouth every day Maryse Molina MA documented in this encounter [facility] 02-20-2023 Miscellaneous Notes Form received from [facility] placed on signing tray Priya Pedersen MA documented in this encounter [facility] 02-18-2023 Miscellaneous Notes Walter [phone] given verbal order. Precious Lacy MA Verbal order for PT given. Walter nixon PT from [facility] called and left a message requesting verbal orders to start care with the patient 2 times a week for 3 weeks and 1 time a week for 5 weeks. Walter didn't leave a phone number but we can call the office at Priya Pedersen MA documented in this encounter [facility] 02-15-2023 Miscellaneous Notes pharm requesting refills: Last office visit 09/13/22. Last refill 01/24/23. Requested Prescriptions Pending Prescriptions Disp Refills hydrOXYzine HCl (ATARAX) 25 mg tablet [Pharmacy Med Name: HYDROXYZINE HCL 25 MG TABLET] 360 tablet 1 Sig: TAKE 1 TABLET BY MOUTH FOUR TIMES A DAY Please review and advise. Suzanne Almaguer MA documented in this encounter [facility] 02-14-2023 Miscellaneous Notes Pharmacy requesting refills as follows: Last Office Visit 09/13/22. Last Refill 01/15/23. Requested Prescriptions Pending Prescriptions Disp Refills gabapentin (NEURONTIN) 300 mg capsule [Pharmacy Med Name: GABAPENTIN 300 MG CAPSULE] 150 capsule 0 Sig: TAKE 2 CAPSULES BY MOUTH EVERY MORNING AND 3 CAPSULES AT BEDTIME FOR 30 DAYS. Please review and advise. Priya Pedersen MA documented in this encounter [facility] 02-05-2023 Miscellaneous Notes Verbal order given to continue services. Please call the patient's to let her know that I ordered a CBC and a fecal occult test for him to complete. Please hold his ASA until testing if completed. Marina with [facility] left message stating when she went to [...] Precious Lacy MA documented in this encounter [facility] 01-21-2023 History of Presen t illness Narrative Images from the original note were not included. Patient: Mars Peterson PCP: Alma Gill APRN.EVANS CC: follow up HPI: Mars Peterson 67 year old obese male former 48-cjol-jifs smoker having quit in 2001 with PMH [...] Date CHF (congestive heart failure) ([facility]) Chronic low back pain Coronary artery disease 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 DJD (degenerative joint disease) Essential hypertension Heart attack ([facility]) 1999 States his previous subsea engineer told him he had a heart attack based on EKG (in [place]) Neuropathy Osteomyelitis of foot ([facility]) Peripheral vascular disease ([facility]) Umbilical hernia Allergies: Animal Dander [...] (FLONASE) 50 mcg/actuation nasal spray Use 1 Elbert in each nostril once daily. sodium chloride 0.65 % nasal spray Use 1 Elbert in the nose as needed. clopidogrel (PLAVIX) [...] DATE OF EXAM: Dec 10 2022 2:21PM [facility] 0541 - CT CHEST WO IVCON / [...] 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 ([facility]) - ICD9: 496, ICD10: J44.9 [...] 3. ILD (interstitial lung disease) ([facility]) - ICD9: 515, ICD10: J84.9 [...] Lilian Rodríguez PA-C documented in this encounter [facility] 01-15-2023 Miscellaneous Notes patient electronically requesting refills as follows: Last seen 09/13/22 . Last refill 12/17/22 . Requested Prescriptions Pending Prescriptions Disp Refills gabapentin (NEURONTIN) 300 mg capsule 150 capsule 0 Sig: TAKE 2 CAPSULES BY MOUTH EVERY MORNING AND 3 CAPSULES AT BEDTIME FOR 30 DAYS. Please review and advise. Precious Lacy MA documented in this encounter [facility] 01-11-2023 Miscellaneous Notes Call placed to patient he would like to transfer service to [place] with Dr. Sarmiento. He already has a follow up appointment on 09-16-23 at 11:40a in [place]. Thanks Katelin Garibay Patient's request for medication [...] Marlyn Torrez RN documented in this encounter [facility] 12-27-2022 Miscellaneous Notes pharmacy electronically requesting refills as follows: Last seen 09/13/22 . Last refill 11/01/22 . Requested Prescriptions Pending Prescriptions Disp Refills hydrOXYzine HCl (ATARAX) 25 mg tablet [Pharmacy Med Name: HYDROXYZINE HCL 25 MG TABLET] 120 tablet 1 Sig: TAKE 1 TABLET BY MOUTH FOUR TIMES A DAY Please review and advise. Precious Lacy MA documented in this encounter [facility] 12-17-2022 Miscellaneous Notes Forms signed. Please fax back. Thank you. Form placed on signing tray from [facility] Priya Pedersen MA documented in this encounter [facility] 12-17-2022 Miscellaneous Notes Pharmacy requesting refills as [...] Priya Pedersen MA documented in this encounter [facility] 12-13-2022 Miscellaneous Notes Attempted to call patient [...] sent. Will also reach out to his [facility] interventional team regarding his increased [...] through his nitro this quickly. Message from [employer]: Refills have been requested for the following medications: nitroglycerin sublingual (NITROSTAT) 0.4 mg SL tablet [Jaclyn Erickson] Preferred pharmacy: [id number] - [place] [address] - [address] [place] [address] Delivery method: Pickup documented in this encounter [facility] 12-13-2022 Miscellaneous Notes [employer] message sent to patient with results. Precious Lacy MA ----- Message from Alma Gill APRN.SPECIALTY THERAPIST sent at 12/13/2022 9:43 AM EDT ----- No change to EKG, stable documented in this encounter [facility] 11-28-2022 Miscellaneous Notes pharmacy electronically requesting refills as follows: Last seen 09/13/22 . Last refill 1/6/23 . Requested Prescriptions Pending Prescriptions Disp Refills traZODone (DESYREL) 100 mg tablet [Pharmacy Med Name: TRAZODONE 100 MG TABLET] 180 tablet 1 Sig: TAKE 2 TABLETS DAILY AT BEDTIME Please review and advise. Precious Lacy MA documented in this encounter [facility] 11-20-2022 History of Presen t illness Narrative Images from the original note were not included. . Respiratory [place] Note Patient name: Mars Peterson PCP: Alma Gill APRN.SPECIALTY THERAPIST Referring Physician: same Consultation requested by Alma Gill for an opinion regarding dyspnea on exertion. My final recommendations will be communicated back to the requesting physician by way of shared Medical record or letter to requesting physician via US mail. CC: LINDA HPI: Mars Peterson 67 year old obese male former 26-gehh-eqal smoker having quit in 2001 with PMH significant for CAD s/p CABG, CHF, HTN, PAD with osteomyelitis of foot status post right BKA, neuropathy being referred for evaluation of LINDA. Patient has a rather significant cardiac history status post NE with CABG and persistent angina. 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 DATA: PFT: Pulmonary [...] Date CHF (congestive heart failure) ([facility]) Chronic low back pain Coronary artery disease 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 DJD (degenerative joint disease) Essential hypertension Heart attack ([facility]) 1999 States his previous subsea engineer told him he had a heart attack based on EKG (in [place]) Neuropathy Osteomyelitis of foot ([facility]) Peripheral vascular disease ([facility]) Umbilical hernia ALLERGIES Allergen Reactions [...] (FLONASE) 50 mcg/actuation nasal spray Use 1 Elbert in each nostril once daily. clopidogrel (PLAVIX) [...] chloride 0.65 % nasal spray Use 1 Elbert in the nose as needed. 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 documented in this encounter [facility] 11-20-2022 History of Presen t illness Narrative PULM FUNCTION SMARTBLOCK: Provider: Francisco Patel MD Assisting Tech: Beba Rose RPFT Spirometry w/BD: 1 documented in this encounter [facility] 11-16-2022 Miscellaneous Notes Attempted to call the patient's about his labs. Left a message. Labs were stable. Sodium is lower than previously and I would like for him to see a kidney doctor. Referral placed. If he ever has any confusion, I recommend that he is seen in the ER or calls the office during office hours. documented in this encounter [facility] 11-12-2022 Miscellaneous Notes Patient requesting refills: Last [...] Suzanne Almaguer MA documented in this encounter [facility] 11-08-2022 Nurse Note Immunizations were given as ordered. Vaccination information sheet given. ABN sheet was signed Priya Pedersen MA documented in this encounter [facility] 11-08-2022 History of Presen t illness Narrative [...] 2022 11:32 AM documented in this encounter [facility] 11-01-2022 Miscellaneous Notes pharmacy electronically requesting refills as follows: Last seen 09/13/22 . Last refill 08/29/22 . Requested Prescriptions Pending Prescriptions Disp Refills hydrOXYzine HCl (ATARAX) 25 mg tablet [Pharmacy Med Name: HYDROXYZINE HCL 25 MG TABLET] 120 tablet 1 Sig: TAKE 1 TABLET BY MOUTH FOUR TIMES A DAY Please review and advise. Precious Lacy MA documented in this encounter [facility] 10-30-2022 Miscellaneous Notes Marina from [facility] called and left a message stating the patient has a rash and itching for the past 5 days. They have been using hydroxyzine and benadryl. With no relief, they want to know what else he can use/take. Priya Pedersen MA documented in this encounter [facility] 10-12-2022 Miscellaneous Notes Verbal orders given to royer. Suzanne Almaguer MA Yes, please continue therapy as stated. Royer physical therapist with [facility] left message stating he saw patient for a recert visit and starting next week they will continue to see patient once a week for 4 weeks to see if they can get any further improvement on patient's function. Royer requests call back with verbal okay. Please advise. Precious Lacy MA documented in this encounter [facility] 10-09-2022 Miscellaneous Notes pharmacy electronically requesting refills [...] Precious Lacy MA documented in this encounter [facility] 09-21-2022 Miscellaneous Notes Pt. scheduled with Dr. Sarmiento at on 10/04/22 at 1420. notified. Wishes to follow at [place] after that appt. Kylah Cancino RN Spoke with patient's , states he sees a different subsea engineer and is going to call the [place] office to schedule an appointment there. Did not want to schedule in [place] Spoke to nurse Marina. States pt is always SOB. Marina has reached out to PCP the [...] patient, which is why she wanted his subsea engineer to know. Per Marina, pt was supposed to have a heart cath, but procedure was unsuccessful so cath not completed. Pt has appt with Pulm (Dr. Patel) on 11/20/22. This nurse advised pt be seen/ evaluated in ER for CP/ SOB/ nausea. Please review and advise and call Marina at [phone] with any recommendations. Thank you. Received a call from Marina from [facility] with a patient update. Patient had to take 2 nitro in the middle of the night. Chest pain resolved with use. Patient has prolonged SOB with SpO2 of 93-94% on room air. He is dizzy with standing and is nauseated today. Marina can be reached at [phone]. documented in this encounter [facility] 09-13-2022 Instructions Alma Gill APRN.SPECIALTY THERAPIST - 09/13/2022 11:59 AM EDT Prevnar 20 [...] - These include cigarette smoke, e-cigarette or vaping products, mold, chemicals, or dust from asbestos, [...] the body. ?An electrocardiogram (also called an ECG) - This test measures the electrical activity in the heart. It can show whether people also have a heart problem. ?Breathing tests, also called pulmonary function tests - These tests measure how well the lungs are working. In some cases, people might also have: ?An echocardiogram - This test uses sound waves to create pictures of your heart. It can show if your heart is pumping normally. ?Bronchoscopy - This is a procedure in which a doctor uses a thin tube (called a bronchoscope) to look inside your lungs and get [...] with healthy lungs. documented in this encounter [facility] 09-13-2022 History of Presen t illness Narrative [...] by the patient and the spouse. No wind field manager was used. Shortness of Breath The current [...] Date CHF (congestive heart failure) ([facility]) Chronic low back pain Coronary artery disease 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 CVA (cerebral vascular accident) ([facility]) DJD (degenerative joint disease) Essential hypertension Heart attack ([facility]) 1999 States his previous subsea engineer told him he had a heart attack based on EKG (in [place]) Neuropathy Osteomyelitis of foot ([facility]) Peripheral vascular [...] Alma Gill APRN.CNP documented in this encounter [facility] 09-07-2022 Miscellaneous Notes Pharmacy comment: Alternative Requested:PLEASE CHANGE THE DX CODE FOR MEDICARE PART B. documented in this encounter [facility] 09-07-2022 Miscellaneous Notes Order cancelled Priya Pedersen MA Addended by: ALMA GILL on: 09/07/2022 11:21 AM Modules accepted: Orders Please call [facility] and cancel order for nebulizer and Albuterol nebulizer solution. Order faxed. Priya Pedersen MA Please fax order for nebulizer to [facility] in [place]. documented in this encounter [facility] 09-07-2022 Miscellaneous Notes Marina zabala [facility] notified and will notify family. Suzanne Almaguer MA Referral for pulmonary medicine placed. Dr. Francisco Patel [facility] ([facility]) Mail Code [id number] [address] [place] [address] Appointment:[phone] Marina with [facility] message stating patient is having continued SOB and it is worse this week than last. States patient's lung sounds are diminished with the exception of the bilateral upper lobes, states they do not sound wet. States patient has no appetite and no other edema. Patient takes lasix 3 times a week. States patient does not have a second shift supervisor and she did not know if Alma would want to refer him to one. States the subsea engineer thinks his SOB is because of his blocked artery that they cannot unblock. Please advise. Precious Lacy MA documented in this encounter [facility] 09-04-2022 Miscellaneous Notes Last OV 06/2022 Patient's request for medication is as follows: Requested Prescriptions Signed Prescriptions Disp Refills isosorbide mononitrate ER (IMDUR) 30 mg 24 hr tablet 30 tablet 11 Sig: Take 1 tablet by mouth once daily. Authorizing Provider: TAMMY LOAIZA Prescription(s) as above. Please process accordingly. Tammy Loaiza APRN.EVANS documented in this encounter [facility] 08-29-2022 Miscellaneous Notes Pharmacy requesting refills: Last [...] Almaguer MA pha documented in this encounter [facility] 08-29-2022 Miscellaneous Notes pharmacy electronically requesting refills as follows: Last seen 08/21/22 . Last refill 07/02/22 . Requested Prescriptions Pending Prescriptions Disp Refills hydrOXYzine HCl (ATARAX) 25 mg tablet [Pharmacy Med Name: HYDROXYZINE HCL 25 MG TABLET] 120 tablet 1 Sig: TAKE 1 TABLET BY MOUTH FOUR TIMES A DAY Please review and advise. Precious Lacy MA documented in this encounter [facility] 08-21-2022 History of Presen t illness Narrative Transitional Care Management TCM Eligibility Documentation The following information was gathered during the initial Patient Outreach Encounter. Date of Outreach: 08/13/2022 Outreach Attempt 1: Contact Made Date of Discharge 08/11/2022 Some recent data might be hidden Summary Discharged from: [facility] Admit Date: 08/08/22-08/11/22 Admitted for: Post PTCA [...] 2022 3:26 PM documented in this encounter [facility] 08-21-2022 Miscellaneous Notes Form received from [facility] to be signed and faxed back placed on signing tray Priya Pedersen MA documented in this encounter [facility] 08-17-2022 Miscellaneous Notes Royer given verbal orders. Suzanne Almaguer MA Yes that is fine. Thank you. Royer PT from [facility] called and left a message requesting verbal orders to start PT one time a week this week, then 2 times for 4 weeks, then lastly 1 time a week for 4 weeks. Vm box is secure to leave messages. Priya Pedersen MA [facility] [place] 08-13-2022 Miscellaneous Notes Regi (RN) From [facility] is wondering if you will follow patient for home care orders. Has been discharged from [facility]. Please advise. Regi [phone]. Suzanne Almaguer MA documented in this encounter [facility] 08-10-2022 History of Past i llness Narrative Problem Noted Date Resolved Date AZRA (acute kidney injury) 08/10/20222022 documented as of this encounter (statuses as of 08/13/2022) [facility]03-31-2023 History of Past illness Narrative* Problem Noted Date Resolved Date AZRA (acute kidney injury) 08/10/20222022 documented as of this encounter (statuses as of 08/17/2022) [facility]-31-2023 History of Past illness Narrative* Problem Noted Date Resolved Date AZRA (acute kidney injury) 08/10/20222022 documented as of this encounter (statuses as of 08/21/2022) [address]31-2023 History of Past illness Narrative* Problem Noted Date Resolved Date AZRA (acute kidney injury) 08/10/20222022 documented as of this encounter (statuses as of 08/23/2022) [address]23 History of Past illness Narrative* Problem Noted Date Resolved Date AZRA (acute kidney injury) 08/10/20222022 documented as of this encounter (statuses as of 08/24/2022) [address]31-2023 History of Past illness Narrative* Problem Noted Date Resolved Date AZRA (acute kidney injury) 08/10/20222022 documented as of this encounter (statuses as of 08/30/2022) [address]31-2023 History of Past illness Narrative* Problem Noted Date Resolved Date AZRA (acute kidney injury) 08/10/20222022 documented as of this encounter (statuses as of 08/30/2022) [address]-2023 History of Past illness Narrative* Problem Noted Date Resolved Date AZRA (acute kidney injury) 08/10/20222022 documented as of this encounter (statuses as of 09/04/2022) [address]31-2023 History of Past illness Narrative* Problem Noted Date Resolved Date AZRA (acute kidney injury) 08/10/20222022 documented as of this encounter (statuses as of 09/07/2022) [address]31-2023 History of Past illness Narrative* Problem Noted Date Resolved Date AZRA (acute kidney injury) 08/10/20222022 documented as of this encounter (statuses as of 09/07/2022) [address]-2023 History of Past illness Narrative* Problem Noted Date Resolved Date AZRA (acute kidney injury) 08/10/20222022 documented as of this encounter (statuses as of 09/07/2022) [address]-2023 History of Past illness Narrative* Problem Noted Date Resolved Date AZRA (acute kidney injury) 08/10/20222022 documented as of this encounter (statuses as of 09/16/2022) [address]31-2023 History of Past illness Narrative* Problem Noted Date Resolved Date AZRA (acute kidney injury) 08/10/20222022 documented as of this encounter (statuses as of 09/21/2022) [address]-2023 History of Past illness Narrative* Problem Noted Date Resolved Date AZRA (acute kidney injury) 08/10/20222022 documented as of this encounter (statuses as of 10/09/2022) [address]-2023 History of Past illness Narrative* Problem Noted Date Resolved Date AZRA (acute kidney injury) 08/10/20222022 documented as of this encounter (statuses as of 10/12/2022) [address]-2023 History of Past illness Narrative* Problem Noted Date Resolved Date AZRA (acute kidney injury) 08/10/20222022 documented as of this encounter (statuses as of 10/16/2022) [address]-2023 History of Past illness Narrative* Problem Noted Date Resolved Date AZRA (acute kidney injury) 08/10/20222022 documented as of this encounter (statuses as of 10/31/2022) [address]-2023 History of Past illness Narrative* Problem Noted Date Resolved Date AZRA (acute kidney injury) 08/10/20222022 documented as of this encounter (statuses as of 11/01/2022) [address]31-2023 History of Past illness Narrative* Problem Noted Date Resolved Date AZRA (acute kidney injury) 08/10/20222022 documented as of this encounter (statuses as of 11/08/2022) [address]-2023 History of Past illness Narrative* Problem Noted Date Resolved Date AZRA (acute kidney injury) 08/10/20222022 documented as of this encounter (statuses as of 11/09/2022) [address]-2023 History of Past illness Narrative* Problem Noted Date Resolved Date AZRA (acute kidney injury) 08/10/20222022 documented as of this encounter (statuses as of 11/12/2022) [address]-2023 History of Past illness Narrative* Problem Noted Date Diagnosed Date Resolved Date AZRA (acute kidney injury) 08/10/2022 CVA (cerebral vascular accident) 11/23/2021 11/20/2022 documented as of this encounter (statuses as of 11/21/2022) [address]31-2023 History of Past illness Narrative* Problem Noted Date Diagnosed Date Resolved Date AZRA (acute kidney injury) 08/10/2022 CVA (cerebral vascular accident) 11/23/2021 11/20/2022 documented as of this encounter (statuses as of 11/21/2022) [address]31-2023 History of Past illness Narrative* Problem Noted Date Diagnosed Date Resolved Date AZRA (acute kidney injury) 08/10/2022 CVA (cerebral vascular accident) 11/23/2021 11/20/2022 documented as of this encounter (statuses as of 11/24/2022) [address]-2023 History of Past illness Narrative* Problem Noted Date Diagnosed Date Resolved Date AZRA (acute kidney injury) 08/10/2022 CVA (cerebral vascular accident) 11/23/2021 11/20/2022 documented as of this encounter (statuses as of 11/29/2022) [address]31-2023 History of Past illness Narrative* Problem Noted Date Diagnosed Date Resolved Date AZRA (acute kidney injury) 08/10/2022 CVA (cerebral vascular accident) 11/23/2021 11/20/2022 documented as of this encounter (statuses as of 12/11/2022) [address]31-2023 History of Past illness Narrative* Problem Noted Date Diagnosed Date Resolved Date AZRA (acute kidney injury) 08/10/2022 CVA (cerebral vascular accident) 11/23/2021 11/20/2022 documented as of this encounter (statuses as of 12/13/2022) [address]31-2023 History of Past illness Narrative* Problem Noted Date Diagnosed Date Resolved Date AZRA (acute kidney injury) 08/10/2022 04 /05/2022 CVA (cerebral vascular accident) 11/23/2021 11/20/2022 documented as of this encounter (statuses as of 12/17/2022) [address]31-2023 History of Past illness Narrative* Problem Noted Date Diagnosed Date Resolved Date AZRA (acute kidney injury) 08/10/2022 CVA (cerebral vascular accident) 11/23/2021 11/20/2022 documented as of this encounter (statuses as of 12/17/2022) [address]31-2023 History of Past illness Narrative* Problem Noted Date Diagnosed Date Resolved Date AZRA (acute kidney injury) 08/10/2022 CVA (cerebral vascular accident) 11/23/2021 11/20/2022 documented as of this encounter (statuses as of 12/18/2022) [address]31-2023 History of Past illness Narrative* Problem Noted Date Diagnosed Date Resolved Date AZRA (acute kidney injury) 08/10/2022 CVA (cerebral vascular accident) 11/23/2021 11/20/2022 documented as of this encounter (statuses as of 12/27/2022) [address]31-2023 History of Past illness Narrative* Problem Noted Date Diagnosed Date Resolved Date AZRA (acute kidney injury) 08/10/2022 CVA (cerebral vascular accident) 11/23/2021 11/20/2022 documented as of this encounter (statuses as of 01/16/2023) [address]31-2023 History of Past illness Narrative* Problem Noted Date Diagnosed Date Resolved Date AZRA (acute kidney injury) 08/10/2022 CVA (cerebral vascular accident) 11/23/2021 11/20/2022 documented as of this encounter (statuses as of 01/22/2023) [address]31-2023 History of Past illness Narrative* Problem Noted Date Diagnosed Date Resolved Date AZRA (acute kidney injury) 08/10/2022 CVA (cerebral vascular accident) 11/23/2021 11/20/2022 documented as of this encounter (statuses as of 02/08/2023) [address]31-2023 History of Past illness Narrative* Problem Noted Date Diagnosed Date Resolved Date AZRA (acute kidney injury) 08/10/2022 CVA (cerebral vascular accident) 11/23/2021 11/20/2022 documented as of this encounter (statuses as of 02/15/2023) [address]31-2023 History of Past illness Narrative* Problem Noted Date Diagnosed Date Resolved Date AZRA (acute kidney injury) 08/10/2022 CVA (cerebral vascular accident) 11/23/2021 11/20/2022 documented as of this encounter (statuses as of 02/16/2023) [address]31-2023 History of Past illness Narrative* Problem Noted Date Diagnosed Date Resolved Date AZRA (acute kidney injury) 08/10/2022 CVA (cerebral vascular accident) 11/23/2021 11/20/2022 documented as of this encounter (statuses as of 02/18/2023) [address]31-2023 History of Past illness Narrative* Problem Noted Date Diagnosed Date Resolved Date AZRA (acute kidney injury) 08/10/2022 CVA (cerebral vascular accident) 11/23/2021 11/20/2022 documented as of this encounter (statuses as of 02/20/2023) [address]31-2023 History of Past illness Narrative* Problem Noted Date Diagnosed Date Resolved Date AZRA (acute kidney injury) 08/10/2022 CVA (cerebral vascular accident) 11/23/2021 11/20/2022 documented as of this encounter (statuses as of 02/26/2023) [address]31-2023 History of Past illness Narrative* Problem Noted Date Diagnosed Date Resolved Date AZRA (acute kidney injury) 08/10/2022 CVA (cerebral vascular accident) 11/23/2021 11/20/2022 documented as of this encounter (statuses as of 02/26/2023) [address]31-2023 History of Past illness Narrative* Problem Noted Date Diagnosed Date Resolved Date AZRA (acute kidney injury) 08/10/2022 CVA (cerebral vascular accident) 11/23/2021 11/20/2022 documented as of this encounter (statuses as of 02/28/2023) [address]31-2023 History of Past illness Narrative* Problem Noted Date Diagnosed Date Resolved Date AZRA (acute kidney injury) 08/10/2022 CVA (cerebral vascular accident) 11/23/2021 11/20/2022 documented as of this encounter (statuses as of 02/28/2023) [address]31-2023 History of Past illness Narrative* Problem Noted Date Diagnosed Date Resolved Date AZRA (acute kidney injury) 08/10/2022 CVA (cerebral vascular accident) 11/23/2021 11/20/2022 documented as of this encounter (statuses as of 03/05/2023) [address]31-2023 History of Past illness Narrative* Problem Noted Date Diagnosed Date Resolved Date AZRA (acute kidney injury) 08/10/2022 CVA (cerebral vascular accident) 11/23/2021 11/20/2022 documented as of this encounter (statuses as of 03/10/2023) [address]31-2023 History of Past illness Narrative* Problem Noted Date Diagnosed Date Resolved Date AZRA (acute kidney injury) 08/10/2022 CVA (cerebral vascular accident) 11/23/2021 11/20/2022 documented as of this encounter (statuses as of 04/03/2023) [address]31-2023 History of Past illness Narrative* Problem Noted Date Diagnosed Date Resolved Date AZRA (acute kidney injury) 08/10/2022 CVA (cerebral vascular accident) 11/23/2021 11/20/2022 documented as of this encounter (statuses as of 04/16/2023) [address]31-2023 History of Past illness Narrative* Problem Noted Date Diagnosed Date Resolved Date AZRA (acute kidney injury) 08/10/2022 CVA (cerebral vascular accident) 11/23/2021 11/20/2022 documented as of this encounter (statuses as of 04/16/2023) [address]31-2023 History of Past illness Narrative* Problem Noted Date Diagnosed Date Resolved Date AZRA (acute kidney injury) 08/10/2022 CVA (cerebral vascular accident) 11/23/2021 11/20/2022 documented as of this encounter (statuses as of 04/16/2023) [address]31-2023 History of Past illness Narrative* Problem Noted Date Diagnosed Date Resolved Date AZRA (acute kidney injury) 08/10/2022 CVA (cerebral vascular accident) 11/23/2021 11/20/2022 documented as of this encounter (statuses as of 04/17/2023) [address]31-2023 History of Past illness Narrative* Problem Noted Date Diagnosed Date Resolved Date AZRA (acute kidney injury) 08/10/2022 CVA (cerebral vascular accident) 11/23/2021 11/20/2022 documented as of this encounter (statuses as of 04/24/2023) [address]31-2023 History of Past illness Narrative* Problem Noted Date Diagnosed Date Resolved Date AZRA (acute kidney injury) 08/10/2022 CVA (cerebral vascular accident) 11/23/2021 11/20/2022 documented as of this encounter (statuses as of 04/27/2023) [address]31-2023 History of Past illness Narrative* Problem Noted Date Diagnosed Date Resolved Date AZRA (acute kidney injury) 08/10/2022 CVA (cerebral vascular accident) 11/23/2021 11/20/2022 documented as of this encounter (statuses as of 05/03/2023) [address]31-2023 History of Past illness Narrative* Problem Noted Date Diagnosed Date Resolved Date AZRA (acute kidney injury) 08/10/2022 CVA (cerebral vascular accident) 11/23/2021 11/20/2022 documented as of this encounter (statuses as of 06/20/2023) [address]31-2023 History of Past illness Narrative* Problem Noted Date Diagnosed Date Resolved Date AZRA (acute kidney injury) 08/10/2022 CVA (cerebral vascular accident) 11/23/2021 11/20/2022 documented as of this encounter (statuses as of 2023) [address]31-2023 History of Past illness Narrative* Problem Noted Date Diagnosed Date Resolved Date AZRA (acute kidney injury) 08/10/2022 CVA (cerebral vascular accident) 11/23/2021 11/20/2022 documented as of this encounter (statuses as of 06/27/2023) [address]31-2023 History of Past illness Narrative* Problem Noted Date Diagnosed Date Resolved Date AZRA (acute kidney injury) 08/10/2022 CVA (cerebral vascular accident) 11/23/2021 11/20/2022 documented as of this encounter (statuses as of 06/27/2023) [address]31-2023 History of Past illness Narrative* Problem Noted Date Diagnosed Date Resolved Date AZRA (acute kidney injury) 08/10/2022 CVA (cerebral vascular accident) 11/23/2021 11/20/2022 documented as of this encounter (statuses as of 07/19/2023) [address]31-2023 History of Past illness Narrative* Problem Noted Date Diagnosed Date Resolved Date AZRA (acute kidney injury) 08/10/2022 CVA (cerebral vascular accident) 11/23/2021 11/20/2022 documented as of this encounter (statuses as of 07/22/2023) [address]31-2023 History of Past illness Narrative* Problem Noted Date Diagnosed Date Resolved Date AZRA (acute kidney injury) 08/10/2022 CVA (cerebral vascular accident) 11/23/2021 11/20/2022 documented as of this encounter (statuses as of 07/26/2023) [address]31-2023 History of Past illness Narrative* Problem Noted Date Diagnosed Date Resolved Date AZRA (acute kidney injury) 08/10/2022 CVA (cerebral vascular accident) 11/23/2021 11/20/2022 documented as of this encounter (statuses as of 08/05/2023) [address]31-2023 History of Past illness Narrative* Problem Noted Date Diagnosed Date Resolved Date AZRA (acute kidney injury) 08/10/2022 CVA (cerebral vascular accident) 11/23/2021 11/20/2022 documented as of this encounter (statuses as of 08/06/2023) [address]31-2023 History of Past illness Narrative* Problem Noted Date Diagnosed Date Resolved Date AZRA (acute kidney injury) 08/10/2022 CVA (cerebral vascular accident) 11/23/2021 11/20/2022 documented as of this encounter (statuses as of 08/16/2023) [address]31-2023 History of Past illness Narrative* Problem Noted Date Diagnosed Date Resolved Date AZRA (acute kidney injury) 08/10/2022 CVA (cerebral vascular accident) 11/23/2021 11/20/2022 documented as of this encounter (statuses as of 08/19/2023) [address]31-2023 History of Past illness Narrative* Problem Noted Date Diagnosed Date Resolved Date AZRA (acute kidney injury) 08/10/2022 CVA (cerebral vascular accident) 11/23/2021 11/20/2022 documented as of this encounter (statuses as of 08/21/2023) [address]31-2023 History of Past illness Narrative* Problem Noted Date Diagnosed Date Resolved Date AZRA (acute kidney injury) 08/10/2022 CVA (cerebral vascular accident) 11/23/2021 11/20/2022 documented as of this encounter (statuses as of 08/23/2023) [address]31-2023 History of Past illness Narrative* Problem Noted Date Diagnosed Date Resolved Date AZRA (acute kidney injury) 08/10/2022 CVA (cerebral vascular accident) 11/23/2021 11/20/2022 documented as of this encounter (statuses as of 08/26/2023) [address]31-2023 History of Past illness Narrative* Problem Noted Date Diagnosed Date Resolved Date AZRA (acute kidney injury) 08/10/2022 CVA (cerebral vascular accident) 11/23/2021 11/20/2022 documented as of this encounter (statuses as of 08/30/2023) [address]24-2023 Miscellaneous Notes* Telephone Encounter - Precious Lacy [...] advise. Precious Lacy MA [facility] Miscellaneous Notes* Telephone Encounter - Regi Aquino - 07/25/2022 3:51 PM EDT Patient calling to conform procedure is scheduled for 07/2922. Spoke with her. Please contact her with any instructions for the procedure. * Telephone Encounter - Sue Casiano [facility] - 07/25/2022 8:21 AM EDT Please schedule Direct PCI with Dr. Sarmiento on 08/08/2022. Please instruct patient on which medications to stop and keep taking. Someone will call the patient the day before to go over instructions. [facility] [place] [facility] Miscellaneous Notes* Telephone Encounter - Precious Lacy MA - 07/13/2022 2:20 PM EST pharmacy electronically requesting refills as follows: Last seen 02/19/22 . Last refill 02/01/22 . Requested Prescriptions Pending Prescriptions Disp Refills lisinopril (ZESTRIL, PRINIVIL) 10 mg tablet [Pharmacy Med Name: LISINOPRIL 10 MG TABLET] 30 tablet 4 Sig: TAKE 1 TABLET BY MOUTH EVERY DAY Please review and advise. Precious Lacy MA documented in [facility]Reg[facility] [place] [facility]23 Miscellaneous Notes* Telephone Encounter - Precious Lacy [...] advise. Precious Lacy MA documented [facility] [place] [facility]23 Instructions* Patient Instructions* Tammy Loaiza APRN.[facility] - 07/05/2022 3:43 PM EST We reviewed your stress test and echo today. Stress test shows a possible scar in the circumflex area. You were offered a left heart catheterization based on the stress test reports. We can do this here in [place] - we only take pictures and do not fix anything here. Please call me at [phone] to let me know if you would [...] labs in 4 weeks. documented in [facility] [place] History of Present illness Narrative* Tammy Loaiza APRN.CNP - 07/05/2022 3:00 PM EST Images from the original note were not included. [facility] [place] Sudhir Amaro Department of Cardiovascular Medicine SECTION OF CLINICAL CARDIOLOGY OUTPATIENT VISIT DATE July 05, 2022 OUTPATIENT VISIT TYPE ESTABLISHED Patient Name: Mars Peterson : 1955 PRIMARY CARE PHYSICIAN: Alma Gill APRN.CNP CHIEF COMPLAINT: Patient presents with: Follow Up: [...] was helpful. Sx are similar to prior NE / bypass Bypass in 2001 - no records avaiable Adjustable bed - cannot lay flat due to SOB No PND Takes lasix PRN - could be used more often Denies LE edema Sometime will feel bloated. No palpitations or heart race IMPRESSION/PLAN: ASSESSMENT/PLAN: 1. 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 - reviewed option of repeat [facility] vs medical management. Patient agreeable to [facility]. - will increase Imdur to 30 mg daily - will increase pravastatin to 20 mg daily - CBC - COMP METABOLIC PANEL - MAGNESIUM BLD - LIPID PANEL BASIC - CARDIAC ACTIVITY THERAPIST ORDER 2. Chronic diastolic congestive heart failure [...] Imdur to 30 mg daily. - CARDIAC ACTIVITY THERAPIST ORDER I spent a total of 46 minutes on the date of the service which included preparing to see the patient, [id number] patient care, completing clinical documentation, performing a medically appropriate examination, counseling and educating the patient/family/caregiver, ordering medications, tests, or p rocedures, and communicating results to the patient/family/caregiver. Thank you very much for allowing me to assist in the care of Mars Peterson. Please do not hesitate to contact me if you have questions or concerns. Tammy Loaiza APRN.[facility] Cardiology Nurse Practitioner Section of [facility] Card[facility] Dept of Cardiovascular Medicine [facility] [place] [address] [place] [address] Office Office July 05, 2022 1:38 PM This note was partially generated using MailTime recognition system and may contain errors related [...] Date CHF (congestive heart failure) ([facility]) Chronic low back pain Coronary artery disease CVA (cerebral vascular accident) ([facility]) DJD (degenerative joint disease) Essential hypertension Heart attack ([facility]) 1999 States his previous subsea engineer told him he had a heart attack based on EKG (in [place]) Neuropathy Osteomyelitis of foot (HCC) Peripheral vascular disease (HCC) Umbilical hernia SOCIAL [...] and ROS obtained by others. Tammy Loaiza, WINDOWS SECURITY ENGINEER.SPECIALTY THERAPIST CURRENT MEDICATIONS: Current Outpatient Medications Medication Sig [...] mL INTRAVENOUS DIRECTED PRN documented in [facility] encounterReg[facility] [place] Miscellaneous Notes* Telephone Encounter - AMA Robles - 06/28/2022 4:39 PM EST Patient was scheduled * Telephone Encounter - Disha Puri - 06/28/2022 12:32 PM EST First attempt at contacting patient, left VM to see if patient could come in for a sooner appointment with an COMPLEX MANAGER to review stress test results * Telephone Encounter - Disha Puri - 06/28/2022 12:32 PM EST ----- Message ----- From: Dedrick Krause DO Sent: 06/26/2022 5:08 PM EST To: Ninfa Melvin Nurse [place] Normal nuclear stress test demonstrating ischemia. Patient should have follow-up as soon as possible. Apparently there is a plan follow-up on July 12. If this could be moved up, this would be ideal. ----- Message ----- documented in this encounterReg[facility] [place] [facility]23 Miscellaneous Notes* Telephone Encounter - Suzanne Almaguer MA - 06/26/2022 2:31 PM EST Patient notified. Suzanne Almaguer MA * Telephone Encounter - Suzanne Almaguer MA - 06/26/2022 2:31 PM EST ----- Message from Alma Gill APRN.SPECIALTY THERAPIST sent at 06/26/2022 12:35 PM EST ----- Please let the patient know that his stress test was slightly abnormal and recommend that he follows up with Dr. Krause. I will forward this to him as well. Please see result note for Ivania Peterson as well to give her results. documented in this encounterReg[facility] [place] [facility]23 History of Present illness Narrative* Tru Ayush, KERVIN - 06/19/2022 9:30 AM EST RADIOLOGY SERVICE [...] Discontinued PROCEDURE TYPE: NM Stress: 16.0 mCi [id number] was administered IV for Rest Imaging at 09:40 by . 47.1 mCi [id number] was administered IV for Stress Imaging at 10:28 by . PATIENT DISCHARGED TO: Ambulatory patient, left [place] department area. A Diagnostic radioactive procedure has taken place, with no further precautions necessary other than routine body substance precautions. More information regarding radiation safety can be found usingthis link: [email or web address] SIGNATURE: KERVIN Decker PATIENT NAME: Mars Peterson DATE: June 19, 2022 TIME: 10:38 AM PAGER/CONTACT #: documented in this encounterReg[facility] [place] [facility]02-06-2023 Miscellaneous Notes* Telephone Encounter - Sarai Martínez RN - 06/18/2022 2:57 PM EST Spoke with patient's regarding reminder for stress test tomorrow and given instructions. documented in this encounterRegency Hospital [facility]01-26-2023 Miscellaneous Notes* Telephone Encounter - Precious Lacy [...] advise. Precious Lacy MA documented in this encounterRegency Hospital [facility] West01-24-2023 Miscellaneous Notes* Telephone Encounter - Adrianne Becerra APRN.CNP - 06/05/2022 1:26 PM EST Called and spoke to patient's . She handles his appts. She would like to call office back with possible dates she can bring her in. The only time she can bring him to appts are on days she is off of work. Adrianne Becerra APRN.CNP documented in this encounterRegency Hospital [facility] West01-23-2023 History of Present illness Narrative* Dedrick Krause, - 06/04/2022 11:30 AM EST Images from the original note were not included. [facility] SECTION OF [facility] CARDIOLOGY [facility] OUTPATIENT VISIT DATE June 04, 2022 PRIMARY CARE PHYSICIAN: Alma Gill [address] [place] [address] HISTORY OF PRESENT ILLNESS: Mr. Peterson is [...] has chronically low sodium. He admits to snacking too much. He is a non-smoker having quit remotely but [...] Date CHF (congestive heart failure) ([facility]) Chronic low back pain Coronary artery disease CVA (cerebral vascular accident) ([facility]) DJD (degenerative joint disease) Essential hypertension Heart attack ([facility]) 1999 States his previous subsea engineer told him he had a heart attack based on EKG (in [place]) Neuropathy Osteomyelitis of foot ([facility]) Peripheral vascular disease (HCC) Umbilical hernia PAST [...] Department of Medicine and Division of Cardiology, [facility] Slider Assemblerproduction administrator [facility] Slider Assembler of Congestive Heart Failure Clinic [facility] Cardiology Office Slider Assembler [facility] Staff Wheat Inspector, Sudhir Ashraf Department of Cardiovascular Medicine/Heart and Vascular [place], [facility] Clinical Assistant To The Ceo Profressor of Medicine, [facility] Please note: This note has been produced using speech recognition software and may contain errors related to that system including jessica, punctuation, spelling, words, gender and phrases that may be inappropriate. documented in this encounterRegency Hospital [facility] West01-20-2023 Miscellaneous Notes* Telephone Encounter - Suzanne Almaguer MA - 06/01/2022 5:18 PM EST Faxed. Placed on [facility]'s desk. Suzanne Almaguer MA * Telephone Encounter - Alma Gill APRN.CNP - 06/01/2022 5:15 PM EST Form completed. Ready to fax. * Telephone Encounter - Priya Pedersen MA - 06/01/2022 7:39 AM EST Form received from [facility] placed in signing tray. Priya Pedersen MA documented in this encounterRegency Hospital [facility] West01-04-2023 Miscellaneous Notes* Telephone Encounter - Suzanne Almaguer MA - 05/16/2022 11:09 AM EST Left message on [facility] voicemail to call us back and let us know if he is holding the trazodone, due to taking tramadol. Suzanne Almaguer MA * Telephone Encounter - Alma Gill APRN.CNP - 05/16/2022 11:03 AM EST Please clarify with the patient's if he is taking it or not. I think we were holding it due tohim taking Tramadol as well. * Telephone Encounter - Suzanne Almaguer MA - 05/16/2022 10:44 AM EST Pharmacist lm on stating the rx from 03/04/2022 for trazodone takes take one tablet by mouth daily at bedtime, hold while taking trazodone. He is requesting new rx to be sent it.(This is in history crossed out) please advise. If you want us to contact pharmacist at [phone]). Thanks. Suzanne Almaguer MA documented in this encounterRegency Hospital [facility] West12-27-2022 Miscellaneous Notes* Telephone Encounter - Suzanne Almaguer MA - 05/08/2022 5:24 PM EST Was faxed by [facility]. Suzanne Almaguer MA * Telephone Encounter - Alma Gill APRN.EVANS - 05/08/2022 5:04 PM EST Form completed for [employer]. Please fax back. Thank you. * Telephone Encounter - Precious Lacy MA - 05/03/2022 1:39 PM EST [facility] Prescription - Detailed Written Order placed on Alma Gill SPECIALTY THERAPIST desk to be signed. Precious Lacy MA documented in this encounterRegency Hospital [facility]12-27-2022 Miscellaneous Notes* Telephone Encounter - Suzanne Almaguer [...] advise. Suzanne Almaguer MA documented in this encounterRegency Hospital [facility] West12-21-2022 Miscellaneous Notes* Telephone Encounter - Suzanne Almaguer MA - 05/02/2022 7:31 AM EST Faxed. Suzanne Almaguer MA * Telephone Encounter - Alma Gill APRN.CNP - 05/01/2022 5:25 PM EST Forms signed. Please fax back. * Telephone Encounter - Priya Pedersen MA - 04/26/2022 7:52 AM EST PT forms placed in signing tray. Priya Pedersen MA documented in this encounterRegency Hospital [facility] West12-21-2022 Miscellaneous Notes* Telephone Encounter - Precious Lacy [...] advise. Precious Lacy MA documented in this encounterRegency Hospital [facility] West12-20-2022 Miscellaneous Notes* Telephone Encounter - Precious Lacy MA - 05/01/2022 2:03 PM EST Order faxed to [facility]. Precious Lacy MA * Telephone Encounter - Alma Gill APRN.CNP - 05/01/2022 1:51 PM EST Order placed and signed. Please fax back to [facility]. * Telephone Encounter - Precious Lacy MA - 04/30/2022 2:08 PM EST Trinh Solomon from [facility] left message stating patient's wheelchair order from June has expiredand patient was not eligible at that time for a new chair and now he is. Please file new order to be faxed to [facility] [phone]. Thanks! Precious Lacy MA documented in this [facility]12-08-2022 Miscellaneous Notes* Telephone Encounter - Priya Pedersen MA - 04/19/2022 2:57 PM EST Forms have been faxed Priya Pedersen MA * Telephone Encounter - Alma Gill APRN.CNP - 04/19/2022 2:24 PM EST Forms completed- please fax back. * Telephone Encounter - Priya Pedersen MA - 04/19/2022 7:21 AM EST There three forms from [facility] for patients PT, placed in signing tray. Priya Pedersen MA documented in this encounterRegency Hospital [facility] West11-30-2022 Miscellaneous Notes* Telephone Encounter - Suzanne Almaguer MA - 04/11/2022 7:59 AM EST Faxed. Placed on [facility] desk. Suzanne Almaguer MA * Telephone Encounter - Alma Gill APRN.CNP - 04/10/2022 5:36 PM EST Form signed. Please fax back. * Telephone Encounter - Priya Pedersen MA - 04/10/2022 11:05 AM EST PT reassessment from [facility] placed in signing tray. Priya Pedersen MA documented in this encounterRegency Hospital [facility] West11-28-2022 Miscellaneous Notes* Telephone Encounter - Priya Pedersen [...] advise. Priya Pedersen MA documented in this encounterRegency Hospital [facility] West10-25-2022 Miscellaneous Notes* Telephone Encounter - Priya Pedersen MA - 03/06/2022 11:56 AM EDT Form faxed. Priya Pedersen MA * Telephone Encounter - Alma Gill APRN.CNP - 03/06/2022 11:54 AM EDT Form signed. Thank you. * Telephone Encounter - Priya Pedersen MA - 03/06/2022 11:17 AM EDT Form received from [facility] needing providers signature. Form has been placed in signing tray. Priya Pedersen MA documented in this encounterRegency Hospital [facility] West10-24-2022 Miscellaneous Notes* Telephone Encounter - Priya Pedersen MA - 03/05/2022 4:05 PM EDT Patient's requesting refills as follows: Last Office Visit 02/19/22. 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 Priya Pedersen MA documented in this encounterRegency Hospital [facility] West10-20-2022 Miscellaneous Notes* Telephone Encounter - Priya Pedersen MA - 03/01/2022 7:42 AM EDT Pharmacy has valid script Priya Pedersen MA documented in this encounterRegency Hospital [facility] West10-10-2022 History of Present illness Narrative* Alma Gill APRN.EVANS - 02/19/2022 3:08 PM EDT Images from [...] history is provided by the patient. No wind field manager was used. PAST MEDICAL HISTORY Diagnosis Date [...] mL injection (DEFINITY) INTRAVENOUS DIRECTED PRN Alma Gill, WINDOWS SECURITY ENGINEER.SPECIALTY THERAPIST sodium chloride 0.9 % (flush) 10 mL (BD POSIFLUSH) 10 mL INTRAVENOUS DIRECTED PRN Alma Gill, WINDOWS SECURITY ENGINEER.SPECIALTY THERAPIST Review of Systems Constitutional: Negative for appetite [...] ([place]) 02/08/2022 475 ms Preliminary Calculated P [place] 02/08/2022 50 degrees Preliminary Calculated R [place] 02/08/2022 7 degrees Preliminary Calculated T [place] 02/08/2022 83 degrees Preliminary ASSESSMENT/PLAN: 1. SOB [...] patient. Alma Gill APRN.CNP documented in this encounterRegency Hospital [facility] West10-03-2022 Miscellaneous Notes* Telephone Encounter - Suzanne Almaguer [...] strongly recommend he goes to see a subsea engineer. I placed a referral to Dr. Mobley. I alsoplaced an order for an echo and nuclear stress test to look for any ischemia. Dr. Klever Mobley Cardiovascular Medicine [facility] Medical Office Building [address] [place] [address] Appointment: [phone] Desk: [phone] His CXR did not show any sign [...] and go from there. documented in this encounterRegency Hospital [facility] West09-30-2022 Miscellaneous Notes* Telephone Encounter - Suzanne Almaguer MA - 02/09/2022 4:04 PM EDT Patients notified and voiced understanding. She wanted to let you know [place] sodium is alwayslow. Suzanne Almaguer MA * Telephone Encounter - Suzanne Almaguer MA - 02/09/2022 4:04 PM EDT ----- Message from Alma Gill APRN.SPECIALTY THERAPIST sent at 02/09/2022 12:58 PM EDT ----- BMP showed his kidney function is back WNL but his sodium is on the lower side again. Lasix can cause the sodium to be low. I'm waiting for the chest XR to see what it says before I decide what to dowith the Lasix. documented in this encounterRegency Hospital [facility]09-29-2022 History of Present illness Narrative* RT Hayder(R) - 02/08/2022 4:00 PM EDT Radiology Service [...] 08, 2022 4:16 PM documented in this encounterRegency Hospital [facility] West09-29-2022 History of Present illness Narrative* Alma Gill, WINDOWS SECURITY ENGINEER.SPECIALTY THERAPIST - 02/08/2022 3:11 PM EDT CHIEF COMPLAINT: [...] was slightly weepy. She did hear from [place] about the sacral foam dressing and his hospital bed. She states that he has to use an inflatable overlay first before they will approve the continuous air flow mattress. He still reportspain with buttock. The history is provided by the patient and the spouse. No wind field manager was used. PAST MEDICAL HISTORY Diagnosis Date [...] Desk Reference: National Heart, Lung, and Blood [place]. National Institutes of Health. 2001: NIH Publication [...] 02/01/2022 1.65 1.00 - 4.00 k/uL Final [place]% 02/01/2022 14.8 % Final Abs [place] 02/01/2022 1.34 (A) <0.87 k/uL Final [place]% [...] (A) 74 - 99 mg/dL Final The [place] Diabetes Association (ADA) provides guidance for cutoff [...] Standards of Medical Care in Diabetes 2016, [place] [employer] Association. Diabetes Care. 2016.39(Suppl 1). BUN [...] patient. Alma Gill APRN.CNP documented in this encounterRegency Hospital [facility] West09-22-2022 Instructions* Patient Instructions* Alma Gill APRN.CNP - 02/01/2022 9:32 AM EDT Lasix 40 mg once a day for the next 7 days documented in this encounterRegency Hospital [facility] West09-22-2022 History of Present illness Narrative* Alma Gill [...] the sores after he complained about his butt burning about 2 weeks ago. She did send in a picture via [employer] and it appeared red on bilateral buttocks. [...] by the patient and the spouse. No wind field manager was used. PAST MEDICAL HISTORY Diagnosis Date [...] 62 Temp 98 Resp 18 Ht 6' 0 (1.83m) Wt 278 lb (126.1kg) SpO2 94% [...] of right buttock, stage 2 ([facility]) - ICD9: 707.05, 707.22, ICD10: L89.312 (primary [...] suspiciousactivity was identified. 02/01/2022 by Alma Gill APRN.SPECIALTY THERAPIST 9. Essential tremor - ICD9: 333.1, ICD10: [...] which included preparing to see the patient, [id number] patient care, completing clinical documentation, obtaining and/or reviewing separately obtained history, performing a medically appropriate examination, counseling and educating the pat ient/family/caregiver, ordering medications, tests, or procedures, communicating results to the patient/family/caregiver, and care coordination (not separately reported). Alma Gill APRN.CNP documented in this encounterRegency Hospital [facility] West09-20-2022 Miscellaneous Notes* Telephone Encounter - Priya Pedersen [...] advise. Priya Pedersen MA documented in this encounterRegency Hospital [facility] West09-16-2022 Miscellaneous Notes* Telephone Encounter - Mone Mckeon [...] assist. Suzanne Almaguer MA documented in this encounterRegency Hospital [facility] West09-16-2022 Miscellaneous Notes* Telephone Encounter - Suzanne Almaguer MA - 01/26/2022 7:16 AM EDT All information left on Andi voicemail. (Advised her to call back [facility] any questions or concerns. Suzanne Almaguer MA [...] - 01/25/2022 1:29 PM EDT Spoke to [facility]. She said yes, but you have to order hospital bed along with mattress stating continuous air flow. She said they need the ICD code on it and reason why pt. Needs this. She said they also needs clinic notes, demos and insurance card faxed to them. (Fax is [phone]) Left message on [facility] with all information. Suzanne Almaguer MA * Telephone Encounter - Alma Gill APRN.CNP - 01/25/2022 12:13 PM EDT Can we please call [facility] to see if they would have access [...] back up the order? documented in this encounterRegency Hospital [facility] West09-09-2022 Miscellaneous Notes* Telephone Encounter - Priya Pedersen MA - 01/19/2022 3:29 PM EDT Forms faxed. Priya Pedersen MA * Telephone Encounter - Alma Gill APRN.CNP - 01/19/2022 1:01 PM EDT Form signed. Please fax back to [facility]. Thanks! * Telephone Encounter - Priya Pedersne MA - 01/18/2022 11:42 AM EDT Form from [facility] placed in signing tray, to sign for Home health plan of care. Priya Pedersen MA documented in this encounterRegency Hospital [facility] West08-25-2022 Miscellaneous Notes* Telephone Encounter - Precious Lacy [...] advise. Precious Lacy MA documented in this encounterRegency Hospital Cleveland West08-24-2022 Miscellaneous Notes* Telephone Encounter - Precious Lacy [...] advise. Precious Lacy MA documented in this encounterRegency Hospital Cleveland West08-22-2022 Miscellaneous Notes* Telephone Encounter - Precious Lacy [...] advise. Precious Lacy MA documented in this encounterRegency Hospital [facility] West08-04-2022 Miscellaneous Notes* Telephone Encounter - Priya Pedersen [...] tray Priya Pedersen MA documented in this encounterRegency Hospital [facility] West07-27-2022 Miscellaneous Notes* Telephone Encounter - Suzanne Almaguer MA - 12/06/2021 4:41 PM EDT notified and voiced understanding. Suzanne Almaguer MA * Telephone Encounter - Suzanne Almaguer MA - 12/06/2021 4:41 PM EDT ----- Message from Alma Gill APRN.SPECIALTY THERAPIST sent at 12/06/2021 3:59 PM EDT ----- Urine culture showed specimen was contaminated but he can continue the antibiotic and we will stillrecheck in 2 weeks like we discussed. documented in this encounterRegency Hospital Cleveland West07-27-2022 Miscellaneous Notes* Telephone Encounter - Suzanne Almaguer MA - 12/06/2021 7:32 AM EDT Faxed. Placed on vanna [employer] desk. Suzanne Almaguer MA * Telephone Encounter - Alma Gill APRN.CNP - 12/05/2021 5:56 PM EDT Form signed and placed on [place] desk. * Telephone Encounter - Priya Pedersen MA - 12/04/2021 1:52 PM EDT Fax received from [facility] placed in signing tray. Priya Pedersen MA documented in this [facility]07-25-2022 Miscellaneous Notes* Telephone Encounter - [...] advise. Suzanne Almaguer MA documented in this [facility]07-22-2022 Miscellaneous Notes* Telephone Encounter - Precious Lacy MA - 12/01/2021 5:24 PM EDT Signed by Dr. Montoya and faxed back to [phone]. Precious Lacy MA * Telephone Encounter - Precious Lacy MA - 12/01/2021 3:49 PM EDT [facility] Verbal Order for half-way 11/30/[address] Montoya green folder to be signed. Precious Lacy MA documented in this [facility]07-19-2022 Miscellaneous Notes* Telephone Encounter - Priya Pedersen MA - 11/28/2021 5:23 PM EDT Faxed. Priya Pedersen MA * Telephone Encounter - Alma Gill APRN.CNP - 11/28/2021 5:19 PM EDT Forms signed. I did not see anything on the OT D/C summary for me to sign. Please fax back to [facility]. Thank you. * Telephone Encounter - Priya Pedersen MA - 11/27/2021 9:50 AM EDT packet received from [facility] that needs reviewed and signed. Priya Pedersen MA documented in this encounterRegency Hospital Cleveland West07-14-2022 Instructions* Patient Instructions* Alma Gill APRN.CNP - 11/23/2021 12:02 PM EDT Dereje Pace MD General Surgery [facility] Specialty [address] [place] [address] Appointment:[phone] Dr. Gallardo- [facility] [address] Driving Directions Appointment: [phone] documented in this encounterRegency Hospital Cleveland West07-14-2022 History of Present illness Narrative* Alma Gill [...] in October and was seen in at [facility] in [place] on 10/15/21. Copied from ER HPI 10/15/21: [...] 65 Temp 97.7 Resp 16 Ht 6' 0 (1.83m) Wt 271 lb 3.2 oz (123.0kg) [...] Behavior: Behavior is cooperative. Outside records from [facility] reviewed. ASSESSMENT/PLAN: 1. Headaches due to old [...] which included preparing to see the patient, [id number] patient care, completing clinical documentation, obtaining and/or reviewing separately obtained history, performing a medically appropriate examination, counseling and educating the pat ient/family/caregiver, ordering medications, tests, or procedures and independently interpreting results (not separately reported). Alma Gill APRN.CNP documented in this encounterRegency Hospital Cleveland West06-27-2022 Miscellaneous Notes* Telephone Encounter - Alma Gill APRN.CNP - 11/06/2021 5:29 PM EDT Completed and signed. * Telephone Encounter - Priya Pedersen MA - 11/03/2021 4:11 PM EDT Fax received from [facility] for home health certification and plan of care. Priya Pedersen MA documented in this encounterRegency Hospital [facility] West06-22-2022 Miscellaneous Notes* Telephone Encounter - Suzanne Almaguer MA - 11/01/2021 1:36 PM EDT Already routed today in diff. Encounter documented in this encounterRegency Hospital [facility] West06-22-2022 Miscellaneous Notes* Telephone Encounter - Suzanne Almaguer [...] advise. Suzanne Almaguer MA documented in this encounterRegency Hospital Cleveland West2022 Miscellaneous Notes* Telephone Encounter - Priya Pedersen MA - 10/31/2021 7:47 AM EDT Fax received from [facility] for home health plan of care and certification, placed in top drawer. Priya Pedersen MA documented in this encounterRegency Hospital [facility] West06-20-2022 Miscellaneous Notes* Telephone Encounter - Priya Pedersen MA - 10/30/2021 1:46 PM EDT Patient requesting refills as follows: Last Office Visit 10/04/20 nov 11/23/21. Last Refill 08/16/21. Pending Prescriptions Disp Refills HYDROXYZINE HCL 25 MG TABLET 120 tablet 1 Sig: Take 1 tablet by mouth four times daily. LASHAY: No Please review and advise. Priya Pedersen MA documented in this encounterRegency Hospital Cleveland West06-16-2022 History of Present illness Narrative* Precious Lacy [...] removal. Precious Lacy MA documented in this encounterRegency Hospital Cleveland West06-07-2022 History of Present illness Narrative* Precious Lacy MA - 10/17/2021 4:36 PM EDT ED Follow Up: Patient discharged from [facility] ED on 10/15/21. 1. How are you [...] you able to contact the office or high tension tester provider prior to your ED visit? Not applicable 5. Is there anything else I can do for you today? No Precious Lacy MA documented in this encounterRegency Hospital [facility] West05-23-2022 Miscellaneous Notes* Telephone Encounter - Alma Gill APRN.CNP - 10/02/2021 9:59 AM EDT PDMP website checked and validated. All prescriptions have been APPROPRIATELY filled. No suspiciousactivity was identified. 10/02/2021 by Alma Gill APRN.CNP * Telephone Encounter - Suzanne Almaguer MA [...] advise. Suzanne Almaguer MA documented in this encounterRegency Hospital [facility] West05-17-2022 Miscellaneous Notes* Telephone Encounter - Precious Lacy [...] advise. Precious Lacy MA documented in this encounterRegency Hospital [facility] West04-27-2022 Miscellaneous Notes* Telephone Encounter - Suzanne Almaguer MA - 09/06/2021 1:15 PM EDT Faxed. Placed in scanning. Suzanne Almaguer MA * Telephone Encounter - Alma Gill APRN.CNP - 09/06/2021 11:57 AM EDT Forms signed. Please fax. * Telephone Encounter - Priya Pedersen MA - 09/05/2021 8:45 AM EDT Fax for orders needs signed p[laced in top drawer. Priya Pedersen MA documented in this encounterRegency Hospital [facility] West04-26-2022 Miscellaneous Notes* Telephone Encounter - Alma Gill APRN.CNP - 09/05/2021 9:02 AM EDT See other encounter. * Telephone Encounter - Priya Pedersen MA - 09/05/2021 8:44 AM EDT Fax received for home health that needs signed. Priya Pedersen MA documented in this encounterRegency Hospital [facility] West04-22-2022 Miscellaneous Notes* Telephone Encounter - Precious Lacy MA - 09/01/2021 7:27 AM EDT pharmacy electronically requesting refills as follows: Last seen 05/23/21 Dr. Snyder . Last refill 02/27/21 . Next office visit 11/23/21 with Alma Queden SPECIALTY THERAPIST Pending Prescriptions Disp Refills METOPROLOL SUCCINATE ER 25 MG TABLET,EXTENDED RELEASE 24 HR 90 tablet 1 Sig: TAKE 1 TABLET BY MOUTH EVERY DAY LASHAY: Yes Please review and advise. Precious Lacy MA documented in this encounterRegency Hospital [facility] West04-20-2022 Miscellaneous Notes* Telephone Encounter - Suzanne Almaguer [...] advise. Suzanne Almaguer MA documented in this encounterRegency Hospital Cleveland West04-19-2022 Miscellaneous Notes* Telephone Encounter - Suly Tiwari MA - 08/29/2021 5:10 PM EDT Completed Suly Tiwari MA * Telephone Encounter - Alma Gill APRN.EVANS - 08/29/2021 5:05 PM EDT Please print off office note from Dr. Snyder on 05/23/21 since this was his last face to face encounter with a provider here. Please fax back to [facility]. There is also a form for his OT completion. I signed the last page and it was requested to be faxedback. * Telephone Encounter - Priya Pedersen MA - 08/29/2021 7:51 AM EDT Fax received from [facility] that needs signed placed in top drawer. Priya Pedersen MA documented in this encounterRegency Hospital [facility] West04-13-2022 Miscellaneous Notes* Telephone Encounter - Priya Pedersen MA - 08/23/2021 7:14 AM EDT Form has been faxed. Priya Pedersen MA * Telephone Encounter - Alma Gill APRN.CNP - 08/22/2021 5:02 PM EDT Signed home health order for PT. Please fax back to number provided. * Telephone Encounter - Priya Pedersen MA - 08/22/2021 2:08 PM EDT Fax received to be signed for home health placed in top drawer. Spoke with patient and he will be establishing in November. Priya Pedersen MA documented in this encounterRegency Hospital [facility] West04-06-2022 Miscellaneous Notes* Telephone Encounter - Maryse Molina MA - 08/16/2021 9:08 AM EDT Last OV 05/23/21 Apt 11/20/21 Labs 01/17/21 Pharmacy calls in requesting the following refill(s): Pending Prescriptions Disp Refills HYDROXYZINE HCL 25 MG TABLET 120 tablet 1 Sig: TAKE 1 TABLET BY MOUTH FOUR TIMES A DAY LASHAY: Yes Maryse Molina [facility] Medication refill Issue of repeat prescriptions documented in this encounter [facility]* Diagnosis Encounter for staple removal- Primary Encounter for removal of sutures documented in this encounter [facility] note* Diagnosis Headaches due to old head [...] unspecified deficiency anemia [facility] Diagnosis UTI symptoms- Primary Other symptoms involving urinary system [facility] Diagnosis Insomnia, unspecified type [facility] Diagnosis UTI symptoms- Primary Other symptoms involving urinary system Recurrent UTI (urinary tract infection) Urinary tract infection, site not specified documented in this encounter [facility]* Diagnosis Medication refill Issue of repeat prescriptions [facility] Diagnosis Pressure injury of right buttock, [...] for diabetes mellitus documented in this encounter [facility]* Diagnosis 1st degree AV block- Primary First degree atrioventricular block Incomplete RBBB Right bundle branch block Chest pain, unspecified type Chronic congestive heart failure, unspecified heart failure type (HCC) 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, unspecified vessel or lesion type (HCC) SOB (shortness of breath) on exertion Shortness of breath documented in this encounter [facility] note* Diagnosis Chronic congestive heart failure, unspecified heart failure type (HCC)- Primary SOB (shortness of breath) Shortness of breath Pressure injury of right buttock, stage 2 (HCC) Pressure injury of left buttock, stage 2 (HCC) documented in this encounter [facility]* Diagnosis Chest pain, unspecified type Chronic congestive heart failure, unspecified heart failure type (HCC) SOB (shortness of breath) on exertion Shortness of breath [facility] Diagnosis SOB (shortness of breath)- Primary [...] Other ill-defined conditions [facility] Diagnosis Insomnia, unspecified type [facility] Diagnosis Insomnia, unspecified type [facility] Diagnosis Complicated UTI (urinary tract infection)- Primary Urinary tract infection, site not specified [facility] Diagnosis Neuropathy Mononeuritis of unspecified site [facility] Diagnosis Abnormality of gait- Primary Impaired mobility Other ill-defined conditions Fall at home, initial encounter Chronic low back pain, unspecified back pain laterality, unspecified whether sciatica present [facility] Diagnosis Anxiety and depression Dysthymic disorder [facility] Diagnosis Neuropathy Mononeuritis of unspecified site [facility]* Diagnosis Insomnia, unspecified type [facility] Diagnosis Chronic diastolic congestive heart failure (HCC)- Primary Chronic diastolic heart failure Chest discomfort Other chest pain 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) Essential hypertension Unspecified essential hypertension Mixed hyperlipidemia Impaired fasting glucose S/P CABG x 4 Postsurgical aortocoronary bypass status Hyponatremia Hyposmolality and/or hyponatremia [facility] Diagnosis Neuropathy Mononeuritis of unspecified site [facility] Diagnosis Chest pain, unspecified type SOB (shortness of breath) on exertion Shortness of breath [facility] Diagnosis Neuropathy Mononeuritis of unspecified site Abnormal stress test Other nonspecific abnormal cardiovascular system function study [facility]* Diagnosis Essential hypertension Unspecified essential hypertension Abnormal stress test Other nonspecific abnormal cardiovascular system function study [facility] Diagnosis 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)- Primary Chronic diastolic congestive heart failure (HCC) Chronic diastolic heart failure Essential hypertension Unspecified essential hypertension Mixed hyperlipidemia Abnormal stress test Other nonspecific abnormal cardiovascular system function study Abnormal stress test Other nonspecific abnormal cardiovascular system function study [facility] Diagnosis 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)- Primary [facility] Diagnosis Neuropathy Mononeuritis of unspecified site Unstable angina (HCC) Intermediate coronary syndrome ACS (acute coronary syndrome) (HCC) Intermediate coronary syndrome [facility] Diagnosis SOB (shortness of breath) on exertion Shortness of breath History of recent hospitalization Personal history of unspecified disease Positive D dimer Abnormal coagulation profile [facility] Diagnosis SOB (shortness of breath) on exertion- Primary Shortness of breath Essential hypertension Unspecified essential hypertension Chronic diastolic congestive heart failure (HCC) Chronic diastolic heart failure Peripheral vascular disease (HCC) Peripheral vascular disease, unspecified Post PTCA Postsurgical percutaneous transluminal coronary angioplasty status Hyponatremia Hyposmolality and/or hyponatremia Impaired mobility Other ill-defined conditions [facility] Diagnosis Neuropathy Mononeuritis of unspecified site [facility] Diagnosis Anxiety and depression Dysthymic disorder [facility] Diagnosis Chest discomfort Other chest pain [facility] Diagnosis Peripheral vascular disease (HCC)- Primary Peripheral vascular disease, unspecified SOB (shortness of breath) Shortness of breath SOB (shortness of breath) on exertion Shortness of breath [facility] Diagnosis SOB (shortness of breath) on exertion Shortness of breath [facility] Diagnosis SOB (shortness of breath) on exertion- Primary Shortness of breath Postnasal drip Chronic diastolic congestive heart failure (HCC) Chronic diastolic heart failure Pulmonary nodule seen on imaging study Solitary pulmonary nodule Need for pneumococcal vaccination Need for prophylactic vaccination against streptococcus pneumoniae (pneumococcus) [facility] Diagnosis Neuropathy Mononeuritis of unspecified site documented in this [facility]* Diagnosis Chest discomfort Other chest pain documented in this encounter [facility]* Diagnosis Anxiety and depression Dysthymic disorder documented in this encounter [facility] note* Diagnosis Encounter for immunization- Primary Need for other specified prophylactic vaccination against single bacterial disease documented in this encounter [facility] note* Diagnosis Dyspnea, unspecified type documented in this encounter [facility] note* Diagnosis Peripheral vascular disease (HCC) Peripheral vascular disease, unspecified Neuropathy Mononeuritis of unspecified site Chest discomfort Other chest pain [facility]* Diagnosis Dyspnea, unspecified type documented in this [facility]* Diagnosis 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 ([facility])- Primary Lung nodules Other nonspecific abnormal finding of lung field ILD (interstitial lung disease) ([facility]) 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 pulmonary fibrosis Class 2 obesity due to excess calories with body mass index (BMI) of 36.0 to 36.9 in adult, unspecified whether serious comorbidity present Angina at rest ([facility]) Other and unspecified angina pectoris documented in this encounter [facility]* Diagnosis Hyponatremia- Primary Hyposmolality and/or hyponatremia documented in this encounter [facility]* Diagnosis Insomnia, unspecified type documented in this encounter [facility] note* Diagnosis Lung nodules Other nonspecific abnormal finding of lung field documented in this encounter [facility]* Diagnosis Neuropathy Mononeuritis of unspecified site Essential hypertension Unspecified essential hypertension documented in this encounter [facility] note* Diagnosis Essential hypertension Unspecified essential hypertension [facility] Diagnosis Anxiety and depression Dysthymic disorder [facility] Diagnosis Neuropathy Mononeuritis of unspecified site documented in this encounter [facility] note* Diagnosis 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 ([facility])- Primary Lung nodules Other nonspecific abnormal finding of lung field ILD (interstitial lung disease) ([facility]) 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 pulmonary fibrosis Class 2 obesity due to excess calories with body mass index (BMI) of 36.0 to 36.9 in adult, unspecified whether serious comorbidity present [facility] Diagnosis Diarrhea of presumed infectious origin- Primary Positive fecal occult blood test Nonspecific abnormal finding in stool contents Diarrhea, unspecified type [facility] Diagnosis Neuropathy Mononeuritis of unspecified site [facility] Diagnosis Anxiety and depression Dysthymic disorder [facility] Diagnosis 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) [facility] Diagnosis Melena- Primary Blood in stool [facility] Diagnosis Peripheral vascular disease (HCC) Peripheral vascular disease, unspecified [facility] Diagnosis 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 ([facility])- Primary Dyspnea, unspecified type Lung nodules Other nonspecific abnormal finding of lung field ILD (interstitial lung disease) ([facility]) 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 pulmonary fibrosis Class 2 obesity due to excess calories with body mass index (BMI) of 36.0 to 36.9 in adult, unspecified whether serious comorbidity present [facility] Diagnosis Postnasal drip [facility]* Diagnosis 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 ([facility]) [facility] Diagnosis 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 ([facility])- Primary Lung nodules Other nonspecific abnormal finding of lung field Class 2 obesity due to excess calories with body mass index (BMI) of 36.0 to 36.9 in adult, unspecified whether serious comorbidity present ILD (interstitial lung disease) ([facility]) 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 pulmonary fibrosis [facility] Diagnosis Neuropathy Mononeuritis of unspecified site [facility] Diagnosis Bilateral carotid artery stenosis- Primary Occlusion and stenosis of carotid artery without mention of cerebral infarction [facility] Diagnosis Chronic GERD- Primary Melena Blood in stool Screening for colon cancer Special screening for malignant neoplasms, colon Constipation, unspecified constipation type [facility] Diagnosis Mixed hyperlipidemia [facility] Diagnosis Mixed hyperlipidemia [facility] Diagnosis Neuropathy Mononeuritis of unspecified site [facility] Diagnosis Chest pain, unspecified type- Primary Chronic GERD Melena Blood in stool Screening for colon cancer Special screening for malignant neoplasms, colon [facility] Diagnosis Screening for colon cancer- Primary Special screening for malignant neoplasms, colon [facility] Diagnosis Chronic GERD- Primary Diarrhea of presumed infectious origin Diarrhea, unspecified type [facility] Diagnosis Neuropathy Mononeuritis of unspecified site [facility] Diagnosis 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)- Primary Chronic diastolic congestive heart failure (HCC) Chronic diastolic heart failure Essential hypertension Unspecified essential hypertension Mixed hyperlipidemia Peripheral vascular disease (HCC) Peripheral vascular disease, unspecified SOB (shortness of breath) Shortness of breath Bilateral carotid artery stenosis Occlusion and stenosis of carotid artery without mention of cerebral infarction [facility] Diagnosis Chest discomfort Other chest pain [facility] Diagnosis 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) [facility] Diagnosis Anxiety and depression Dysthymic disorder [facility] Diagnosis Neuropathy Mononeuritis of unspecified site [facility] Diagnosis Chest discomfort Other chest pain [facility]* Diagnosis Peripheral vascular disease (HCC) Peripheral vascular disease, unspecified [facility] Diagnosis ILD (interstitial lung disease) (HCC)- Primary 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 pulmonary fibrosis Lung nodule Solitary pulmonary nodule COPD, mild (HCC) Chronic airway obstruction, not elsewhere classified Class 2 obesity Lung nodules Other nonspecific abnormal finding of lung field 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 ([facility]) [facility] Diagnosis Postnasal drip [facility] Diagnosis Diarrhea, unspecified type- Primary [facility] Diagnosis Diarrhea, unspecified type- Primary Bilateral impacted cerumen Impacted cerumen Need for shingles vaccine Need for prophylactic vaccination and inoculation against other viral diseases [facility] Diagnosis Peripheral arterial disease (HCC)- Primary Peripheral vascular disease, unspecified Onychomycosis Dermatophytosis of nail [facility] Diagnosis Diarrhea, unspecified type [facility] Diagnosis Peripheral arterial disease (HCC)- Primary Peripheral vascular disease, unspecified [facility]* Diagnosis Anxiety and depression Dysthymic disorder [facility] Diagnosis Neuropathy Mononeuritis of unspecified site [facility] Diagnosis Medication refill Issue of repeat prescriptions [facility] Diagnosis Essential hypertension Unspecified essential hypertension [facility]* Diagnosis Insomnia, unspecified type [facility] Diagnosis Ulcer of toe of left foot, limited to breakdown of skin (HCC)- Primary Onychomycosis Dermatophytosis of nail 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) [facility] Diagnosis Ulcer of toe of left foot, limited to breakdown of skin (HCC) [facility] Diagnosis Neuropathy Mononeuritis of unspecified site [facility] Diagnosis Screening for colon cancer Special screening for malignant neoplasms, colon [facility]* Diagnosis Postnasal drip [facility] Diagnosis Chest discomfort Other chest pain Peripheral vascular disease (HCC) Peripheral vascular disease, unspecified [facility] Diagnosis Mixed hyperlipidemia [facility] Diagnosis Interstitial pulmonary disease (HCC)- Primary 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 pulmonary fibrosis COPD, mild (HCC) Chronic airway obstruction, not elsewhere classified Chronic hypoxemic respiratory failure (HCC) Chronic respiratory failure Lung nodule Solitary pulmonary nodule [facility] Diagnosis 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)- Primary Chronic diastolic congestive heart failure (HCC) Chronic diastolic heart failure Essential hypertension Unspecified essential hypertension Mixed hyperlipidemia Peripheral vascular disease (HCC) Peripheral vascular disease, unspecified Bilateral carotid artery stenosis Occlusion and stenosis of carotid artery without mention of cerebral infarction [facility] Diagnosis Anxiety and depression- Primary Dysthymic disorder [facility] Diagnosis Diarrhea, unspecified type [facility]* Diagnosis Neuropathy Mononeuritis of unspecified site documented in this [facility]* Diagnosis Onychomycosis- Primary Dermatophytosis of nail 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) [facility] Diagnosis Anxiety and depression Dysthymic disorder documented in this encounter [facility]* Diagnosis Acute respiratory failure with hypoxia (HCC)- Primary Acute respiratory failure Chronic diastolic congestive heart failure (HCC) Chronic diastolic heart failure Anxiety and depression Dysthymic disorder Dependence on supplemental oxygen Hyponatremia Hyposmolality and/or hyponatremia documented in this encounter [facility] note* Diagnosis Interstitial pulmonary disease (HCC) 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 pulmonary fibrosis documented in this encounter [facility] note* Diagnosis Anxiety and depression Dysthymic disorder [facility] Diagnosis ILD (interstitial lung disease) (HCC) 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 pulmonary fibrosis documented in this encounter [facility] note* Diagnosis ILD (interstitial lung disease) (HCC) 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 pulmonary fibrosis [facility] Diagnosis Interstitial pulmonary disease (HCC) 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 pulmonary fibrosis documented in this encounter [facility]* Diagnosis ILD (interstitial lung disease) (HCC)- Primary 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 Chronic hypoxemic respiratory failure (HCC) Chronic respiratory failure COPD, mild (HCC) Chronic airway obstruction, not elsewhere classified documented in this encounter [facility] note* Diagnosis Idiopathic pulmonary fibrosis (HCC)- Primary Idiopathic pulmonary fibrosis Chronic hypoxemic respiratory failure (HCC) Chronic respiratory failure Pulmonary arterial hypertension (HCC) Other chronic pulmonary heart diseases [facility]* Diagnosis Neuropathy Mononeuritis of unspecified site documented in this encounter [facility] note* Diagnosis Insomnia, unspecified type Essential hypertension Unspecified essential hypertension Chest discomfort Other chest pain Neuropathy Mononeuritis of unspecified site Medication refill Issue of repeat prescriptions Mixed hyperlipidemia Anxiety and depression Dysthymic disorder Diarrhea, unspecified type Peripheral vascular disease (HCC) Peripheral vascular disease, unspecified [facility] Diagnosis ILD (interstitial lung disease) (HCC)- Primary 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 pulmonary fibrosis Dependence on supplemental oxygen Chronic diastolic congestive heart failure (HCC) Chronic diastolic heart failure Hyponatremia Hyposmolality and/or hyponatremia Encounter for immunization Need for other specified prophylactic vaccination against single bacterial disease [facility] Diagnosis Essential hypertension Unspecified essential hypertension [facility] Diagnosis 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 Chronic respiratory failure with hypoxia (HCC) Chronic respiratory failure Hypersensitivity pneumonitis (HCC) Unspecified allergic alveolitis and pneumonitis Gastroesophageal reflux disease, unspecified whether esophagitis present [facility] Diagnosis Neuropathy Mononeuritis of unspecified site Insomnia, unspecified type [facility] Diagnosis Chronic respiratory failure with hypoxia (HCC) Chronic respiratory failure [facility] Diagnosis Chronic respiratory failure with hypoxia (HCC) Chronic respiratory failure 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) Hypersensitivity pneumonitis (HCC) Unspecified allergic alveolitis and pneumonitis [facility]* Diagnosis Insomnia, unspecified type [facility] Diagnosis Essential hypertension Unspecified essential hypertension Mixed hyperlipidemia [facility] Diagnosis Hypersensitivity pneumonitis (HCC)- Primary Unspecified allergic alveolitis and pneumonitis [facility]* Diagnosis Neuropathy Mononeuritis of unspecified site [facility]* Diagnosis Peripheral vascular disease (HCC) Peripheral vascular disease, unspecified [facility] Diagnosis Hypersensitivity pneumonitis (HCC)- Primary Unspecified allergic alveolitis and pneumonitis Chronic respiratory failure with hypoxia (HCC) Chronic respiratory failure 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) Acute hypoxic respiratory failure (HCC) Chronic obstructive pulmonary disease with acute exacerbation (HCC) Obstructive chronic bronchitis with exacerbation [facility] Diagnosis Interstitial pulmonary disease (HCC)- Primary 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 pulmonary fibrosis Wheezing Acute on chronic hypoxic respiratory failure (HCC) [facility]* Diagnosis Interstitial pulmonary disease (HCC) 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 pulmonary fibrosis Wheezing Acute on chronic hypoxic respiratory failure (HCC) [facility]* Diagnosis ILD (interstitial lung disease) (HCC)- Primary 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 pulmonary fibrosis Acute on chronic hypoxic respiratory failure (HCC) Dependence on supplemental oxygen SOB (shortness of breath) on exertion Shortness of breath Wheezing Neuropathy Mononeuritis of unspecified site Anxiety and depression Dysthymic disorder Itching Unspecified pruritic disorder [facility] Diagnosis Chest discomfort Other chest pain [facility]* Diagnosis Wheezing- Primary Acute on chronic hypoxic respiratory failure (HCC) Community acquired bacterial pneumonia Bacterial pneumonia, unspecified [facility] noteNo assessment information availableWLouis Stokes [facility] Work Phone: Evaluation note* Diagnosis Mixed hyperlipidemia [facility]* Diagnosis Hypersensitivity pneumonitis (HCC) Unspecified allergic alveolitis and pneumonitis [facility]* Diagnosis 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- Primary Chronic diastolic congestive heart failure (HCC) Chronic diastolic heart failure Essential hypertension Unspecified essential hypertension Mixed hyperlipidemia Peripheral vascular disease Peripheral vascular disease, unspecified Bilateral carotid artery stenosis Occlusion and stenosis of carotid artery without mention of cerebral infarction [facility]* Diagnosis Pulmonary arterial hypertension (HCC) Other chronic pulmonary heart diseases [facility]* Diagnosis Onychomycosis- Primary Dermatophytosis of nail 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) Hallux valgus of left foot [facility]* Diagnosis Hypoglycemia- Primary Hypoglycemia, unspecified [facility]* Diagnosis Hypersensitivity pneumonitis (HCC)- Primary Unspecified allergic alveolitis and pneumonitis [facility]* Diagnosis Hand injury, right, initial encounter- Primary Swelling of right hand Hand injury, right, initial encounter Swelling of right hand [facility]* Diagnosis Hypersensitivity pneumonitis (HCC)- Primary Unspecified [...] of other medications [facility]* Diagnosis Hand injury, right, initial encounter Swelling of right hand [facility]* Diagnosis Closed boxer's fracture, initial encounter- Primary [facility]* Diagnosis Insomnia, unspecified type [facility]* Diagnosis 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) Unspecified immunity deficiency [facility]* Diagnosis Closed boxer's fracture with routine healing, subsequent encounter- Primary [facility]* Diagnosis Diarrhea, unspecified type [facility]* Diagnosis Hospital discharge follow-up- Primary Other follow-up examination ILD (interstitial lung disease) (HCC) 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 Chronic hypoxemic respiratory failure (HCC) Chronic respiratory failure Former smoker Personal history of tobacco use, presenting hazards to health [facility]* Diagnosis Hypersensitivity pneumonitis (HCC)- Primary Unspecified allergic alveolitis and pneumonitis Chronic respiratory failure with hypoxia (HCC) Chronic respiratory failure 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) Acute hypoxic respiratory failure (HCC) Chronic obstructive pulmonary disease with acute exacerbation (HCC) Obstructive chronic bronchitis with exacerbation [facility]* Diagnosis Interstitial pulmonary disease (HCC)- Primary 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 pulmonary fibrosis Bronchiectasis without acute exacerbation (HCC) Bronchiectasis without acute exacerbation Hypersensitivity pneumonitis (HCC) Unspecified allergic alveolitis and pneumonitis Chronic respiratory failure with hypoxia (HCC) Chronic respiratory failure 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) half-way (current) use of systemic steroids [facility]* Diagnosis Acute on chronic hypoxic respiratory [...] daily living (ADL) [facility]* Diagnosis Acute hypoxic respiratory failure (HCC)- Primary Hypersensitivity pneumonitis (HCC) Unspecified allergic alveolitis and pneumonitis [facility]* Diagnosis Bronchiectasis without acute exacerbation (HCC)- Primary Bronchiectasis without acute exacerbation [facility]* Diagnosis Onychomycosis- Primary Dermatophytosis of nail 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) Left foot pain Pain in limb [facility]* Diagnosis Chronic obstructive pulmonary disease with acute exacerbation (HCC)- Primary Obstructive chronic bronchitis with exacerbation ILD (interstitial lung disease) (HCC) 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 pulmonary fibrosis Chronic hypoxemic respiratory failure (HCC) Chronic respiratory failure [facility]* Diagnosis ILD (interstitial lung disease) (HCC)- [...] Chronic respiratory failure [facility]* Diagnosis Peripheral vascular disease Peripheral vascular disease, unspecified Anxiety and depression Dysthymic disorder [facility]* Diagnosis ILD (interstitial lung disease) (HCC)- Primary 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 pulmonary fibrosis Dependence on supplemental oxygen SOB (shortness of breath) on exertion Shortness of breath Impaired ambulation Requires assistance with activities of daily living (ADL) Confusion Unspecified psychosis Impaired mobility Other ill-defined conditions Essential tremor Essential and other specified forms of tremor Neuropathy Mononeuritis of unspecified site [facility]* Name Dates Details Instructions not documented -[facility] [address] Work Phone: Reason for referral (narrative)* Outpatient Procedure (Routine) - Authorized Specialty Diagnoses / Procedures Referred By Kita t Referred To [facility] Diagnoses Chest pain, unspecified type Procedures ECG COMPLETE ECG ROUTINE ECG W/LEAST 12 LDS W/I&R Alma Gill APRN.SPECIALTY THERAPIST [address] [place] [address] [facility] [place] [address] [place] [address] Referral ID Status Reason Start Date Expiration Date Visits Requested Visits Authorized [id number] Authorized Auto-Generat ed Referral 02/01/2022 02/01/2023 1 1 [facility] for referral (narrative)* Diagnostic Procedure Only (Routine) - Pending Review Specialty Diagnoses / Procedures Referred By Kita taylor Referred To Contact [facility] Diagnoses Chest pain, unspecified type SOB (shortness of breath) on exertion Procedures NM CARDIAC PERF STRESS/PHARM MYOCARDIAL SPECT MULTIPLE STUDIES Alma Gill APRN.SPECIALTY THERAPIST [address] [place] [address] [facility] [address] [id number] Referral ID Status Reason Start Date Expiration Date Visits Requested Visits Authorized [id number] Pending Review Auto-Generat ed Referral 02/12/2022 03/14/2023 1 1 * Outpatient Procedure (Routine) - Pending Review Specialty Diagnoses / Procedures Referred By Kita taylor Referred To [facility] Diagnoses Chest pain, unspecified type Chronic congestive heart failure, unspecified heart failure type (HCC) SOB (shortness of breath) on exertion Procedures ECHO ECHO TTHRC R-T 2D W/WOM-MODE COMPL SPEC&COLR D Alma Gill APRN.SPECIALTY THERAPIST [address] [place] [address] [facility] [place] [address] [place] [address] Referral ID Status Reason Start Date Expiration Date Visits Requested Visits Authorized [id number] Pending Review Auto-Generat ed Referral 02/12/2022 02/12/2023 1 1 * Consult, Test, Treat (Routine) - Authorized Specialty Diagnoses / Procedures Referred By Kita taylor Referred To Contact Cardiology / [facility] Department Diagnoses 1st degree AV block Incomplete RBBB Chest pain, unspecified type Chronic congestive heart failure, unspecified heart failure type (HCC) 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, unspecified vessel or lesion type (HCC) SOB (shortness of breath) on exertion Procedures CONSULT TO CARDIOLOGY OFFICE/OUTPATIENT [facility] 60-74 MINUTES Alma Gill APRN.SPECIALTY THERAPIST [address] [place] [address] [facility] [address] [address] [place] [address] Referral ID Status Reason Start Date Expiration Date Visits Requested Visits Authorized [id number] Authorized PCP Requested Referral 02/12/2022 02/12/2023 1 1 [facility] for referral (narrative)* Outpatient Procedure (Routine) - Closed Specialty Diagnoses / Procedures Referred By Kita taylor Referred To [facility] Diagnoses Chest pain, unspecified type Chronic congestive heart failure, unspecified heart failure type (HCC) SOB (shortness of breath) on exertion Procedures ECHO ECHO TTHRC R-T 2D W/WOM-MODE COMPL SPEC&COLR D Alma Gill APRN.SPECIALTY THERAPIST [address] [place] [address] [facility] [place] [address] [place] [address] Referral ID Status Reason Start Date Expiration Date V isits Requested Visits Authorized [id number] Closed Auto-Generate d Referral 02/12/2022 02/12/2023 1 1 [facility] for referral (narrative)* Diagnostic Procedure Only (Routine) - Closed Specialty Diagnoses / Procedures Referred By Contac t Referred To Contact [facility] Diagnoses Chest pain, unspecified type SOB (shortness of breath) on exertion Procedures NM CARDIAC PERF STRESS/PHARM MYOCARDIAL SPECT MULTIPLE STUDIES Alma Gill APRN.CNP [address] [place] [address] [facility] [address] [phone] Referral ID Status Reason Start Date Expiration Date V isits Requested Visits Authorized [id number] Closed Auto-Generate d Referral 02/12/2022 03/14/2023 1 1 [facility] for referral (narrative)* Outpatient Procedure (Routine) - Pending Review Specialty Diagnoses / Procedures [facility] Diagnoses Bilateral carotid artery stenosis Procedures US CAROTID ARTERIES [facility] DUPLEX SCAN EXTRACRANIAL ART COMPL BI STUDY Beatrice Sarmiento MD [address] [place] [address] [facility] [place] [address] [place] [address] Referral ID Status Reason Start Date Expiration Date Visits Requested Visits Authorized [id number] Pending Review Auto-Generat ed Referral 04/16/2023 04/15/2024 1 1 [facility] for referral (narrative)* Outpatient Procedure (Routine) - Pending Review Specialty Diagnoses / Procedures Referred By Contac t Referred To Contact [facility] Diagnoses Screening for colon cancer Procedures COLONOSCOPY SCREENING COLONOSCOPY FLX DX W/COLLJ SPEC WHEN PFRMD Mone Robertson PA-C [address] [place] [address] [facility] [place] [address] [place] [address] Referral ID Status Reason Start Date Expiration Date Visits Requested Visits Authorized [id number] Pending Review Auto-Generat ed Referral 3 04/23/2024 1 1 * Outpatient Procedure (Routine) - Pending Review Specialty Diagnoses / Procedures Referred By Kita taylor Referred To Contact [facility] Diagnoses Chronic GERD Melena Procedures EGD DIAGNOSTIC ESOPHAGOGASTRODUODENOS COPY TRANSORAL DIAGNOSTIC Mone Robertson PA-C [address] [place] [address] [address] Referral ID Status Reason Start Date Expiration Date Visits Requested Visits Authorized [id number] Pending Review Auto-Generat ed Referral 3 04/23/2024 1 1 [facility] for referral (narrative)* Outpatient Procedure (Routine) - Closed Specialty Diagnoses / Procedures Referred By Kita taylor Referred To Contact [facility] Diagnoses Screening for colon cancer Procedures COLONOSCOPY SCREENING COLONOSCOPY FLX DX W/COLLJ SPEC WHEN PFRMD Mone Robertson PA-C [address] [place] [address] [address] Referral ID Status Reason Start Date Expiration Date V isits Requested Visits Authorized [id number] Closed Auto-Generate d Referral 04/23/2023 04/23/2024 1 1 * Outpatient Procedure (Routine) - Closed Specialty Diagnoses / Procedures Referred By Kita taylor Referred To Contact [facility] Diagnoses Chronic GERD Melena Procedures EGD DIAGNOSTIC ESOPHAGOGASTRODUODENOS COPY TRANSORAL DIAGNOSTIC Mone Robertson PA-C [address] [place] [address] [address] Referral ID Status Reason Start Date Expiration Date V isits Requested Visits Authorized [id number] Closed Auto-Generate d Referral 04/23/2023 04/23/2024 1 1 [facility] for referral (narrative)* Outpatient Procedure (Routine) - Authorized Specialty Diagnoses / Procedures Referred By Contac t Referred To [facility] Diagnoses Screening for colon cancer Procedures COLONOSCOPY SCREENING COLONOSCOPY FLX DX W/COLLJ SPEC WHEN PFRMD Mone Robertson PA-C [address] [place] [address] [facility] [address] [place] [address] Referral ID Status Reason Start Date Expiration Date Visits Requested Visits Authorized [id number] Authorized Auto-Generat ed Referral 06/27/2023 06/27/2024 1 1 [facility] for referral (narrative)* Outpatient Procedure (Routine) - Pending Review Specialty Diagnoses / Procedures Referred By Contac t Referred To [facility] Diagnoses ILD (interstitial lung disease) (HCC) Procedures LUNG DIFFUSION CAPACITY (DLCO) DIFFUSING CAPACITY Francisco Patel MD [address] [place] [address] [facility] [address] [place] [address] Referral ID Status Reason Start Date Expiration Date Visits Requested Visits Authorized [id number] Pending Review Auto-Generat ed Referral 09/09/2023 10/08/2024 1 1 * Outpatient Procedure (Routine) - Pending Review Specialty Diagnoses / Procedures Referred By Contac t Referred To [facility] Diagnoses ILD (interstitial lung disease) (HCC) Procedures LUNG VOLUMES Francisco Patel MD [address] [place] [address] [facility] [place] [address] [place] [address] Referral ID Status Reason Start Date Expiration Date Visits Requested Visits Authorized [id number] Pending Review Auto-Generat ed Referral 09/09/2023 10/08/2024 1 1 * MRI/CT (Routine) - Pending Review Specialty Diagnoses / Procedures Referred By Contac t Referred To Contact CT IMAGING Diagnoses Lung nodules Procedures CT CHEST WO IVCON DIAGNOSTIC COMPUTED TOMOGRAPHY THORAX W/O CNTRST Francisco Patel MD [address] [place] [address] [place] [address] Referral ID Status Reason Start Date Expiration Date Visits Requested Visits Authorized [id number] Pending Review Auto-Generat ed Referral 09/08/2024 10/08/2024 1 1 [facility] for referral (narrative)* Diagnostic Procedure Only (Routine) - Closed Specialty Diagnoses / Procedures Referred By Contac t Referred To Contact XR IMAGING Diagnoses Ulcer of toe of left foot, limited to breakdown of skin (HCC) Procedures XR TOE AP/LAT/OBL LEFT RADEX TOE MINIMUM 2 VIEWS Francesco Tobias [address] [place] [address] [place] [address] Referral ID Status Reason Start Date Expiration Date V isits Requested Visits Authorized [id number] Closed Auto-Generate d Referral 11/21/2023 12/20/2024 1 1 [facility] for referral (narrative)* Outpatient Procedure (Routine) - Closed Specialty Diagnoses / Procedures Referred By Contac t Referred To [facility] Diagnoses Screening for colon cancer Procedures COLONOSCOPY SCREENING COLONOSCOPY SCREENING COLONOSCOPY FLX DX W/COLLJ SPEC WHEN PFMone Rayo PA-C [address] [place] [address] [facility] [address] [place] [address] Referral ID Status Reason Start Date Expiration Date V isits Requested Visits Authorized [id number] Closed Auto-Generate d Referral 06/27/2023 06/27/2024 1 1 [facility] for referral (narrative)* Outpatient Procedure (Routine) - Authorized Specialty Diagnoses / Procedures Referred By Contac t Referred To Contact [facility] Diagnoses Interstitial pulmonary disease (HCC) Procedures OXIMETRY WITH AMBULATION NONINVASIVE EAR/PULSE OXIMETRY MULTIPLE DETER Lilian Rodríguez PA-C [address] [place] [address] [facility] [place] [address] [id number] Referral ID Status Reason Start Date Expiration Date Visits Requested Visits Authorized [id number] Authorized Auto-Generat ed Referral 01/29/2024 02/27/2025 1 1 * MRI/CT (Routine) - Authorized Specialty Diagnoses / Procedures Referred By Contac t Referred To Contact CT IMAGING Diagnoses Interstitial pulmonary disease (HCC) Procedures CT CHEST WO IVCON DIAGNOSTIC COMPUTED TOMOGRAPHY THORAX W/O CNTRST Lilian Rodríguez PA-C [address] [place] [address] [place] [address] Referral ID Status Reason Start Date Expiration Date Visits Requested Visits Authorized [id number] Authorized Auto-Generat ed Referral 02/27/2025 1 1 [facility] for referral (narrative)* Outpatient Procedure (Routine) - New Request Specialty Diagnoses / Procedures Referred By Contac t Referred To Contact [facility] Diagnoses Pulmonary arterial hypertension (HCC) Procedures ECHO ECHO TTHRC R-T 2D W/WOM-MODE COMPL SPEC&COLR D Mitchell Caruso APRN.SPECIALTY THERAPIST [address] [place] [address] [facility] [place] [address] [place] [id number] Referral ID Status Reason Start Date Expiration Date Visits Requested Visits Authorized [id number] New Request Auto-Generat ed Referral 4 03/27/2025 1 1 [facility] for referral (narrative)* Outpatient Procedure (Routine) - Authorized Specialty Diagnoses / Procedures Referred By Contac t Referred To Contact [facility] Diagnoses Chronic respiratory failure with hypoxia (HCC) 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) Hypersensitivity pneumonitis (HCC) Procedures LUNG DIFFUSION CAPACITY (DLCO) DIFFUSING CAPACITY Tru Simon MD [address] [place] [address] [place] [address] [place] [address] Referral ID Status Reason Start Date Expiration Date Visits Requested Visits Authorized [id number] Authorized Auto-Generat ed Referral 4 05/22/2025 1 1 * Outpatient Procedure (Routine) - Authorized Specialty Diagnoses / Procedures Referred By Contac t Referred To [facility] Diagnoses Chronic respiratory failure with hypoxia (HCC) Procedures SPIROMETRY BASELINE ONLY SPMTRY W/VC EXPIRATORY ANGELA W/WO MXML VOL VNTJ Tru Simon MD [address] [place] [address] [place] [id number] [place] [address] Referral ID Status Reason Start Date Expiration Date Visits Requested Visits Authorized [id number] Authorized Auto-Generat ed Referral 4 05/22/2025 1 1 [facility] for referral (narrative)No reason for referral information availableWLouis Stokes [facility] Work Phone: Reason for visit Narrative* Outpatient Procedure (Routine) - Closed Specialty Diagnoses / Procedures Referred By Contac t Referred To Contact [facility] Diagnoses Chest pain, unspecified type Chronic congestive heart failure, unspecified heart failure type (HCC) SOB (shortness of breath) on exertion Procedures ECHO ECHO TTHRC R-T 2D W/WOM-MODE COMPL SPEC&COLR D Alma Gill, WINDOWS SECURITY ENGINEER.SPECIALTY THERAPIST [address] [place] [address] [facility] [place] [address] [place] [address] Referral ID Status Reason Start Date Expiration Date V isits Requested Visits Authorized [id number] Closed Auto-Generate d Referral 02/12/2022 02/12/2023 1 1 [facility] for visit Narrative* Diagnostic Procedure Only (Routine) - Closed Specialty Diagnoses / Procedures Referred By Kita t Referred To Contact MOLECULAR & FUNCTIONAL IMAGING Diagnoses Chest pain, unspecified type SOB (shortness of breath) on exertion Procedures NM CARDIAC PERF STRESS/PHARM MYOCARDIAL SPECT MULTIPLE STUDIES Alma Gill APRN.SPECIALTY THERAPIST [address] [place] [address] [facility] [address] [place] [address] Referral ID Status Reason Start Date Expiration Date V isits Requested Visits Authorized [id number] Closed Auto-Generate d Referral 02/12/2022 03/14/2023 1 1 [facility] for visit Narrative* Outpatient Procedure (Routine) - Closed Specialty Diagnoses / Procedures Referred By Kita t Referred To Contact [facility] Diagnoses Screening for colon cancer Procedures COLONOSCOPY SCREENING COLONOSCOPY FLX DX W/COLLJ SPEC WHEN PFRMD Mone Robertson PA-C [address] [place] [address] [facility] [place] [address] [place] [address] Referral ID Status Reason Start Date Expiration Date V isits Requested Visits Authorized [id number] Closed Auto-Generate d Referral 04/23/2023 04/23/2024 1 1 [facility] for visit Narrative* Diagnostic Procedure Only (Routine) - Closed Specialty Diagnoses / Procedures Referred By Contac t Referred To Contact XR IMAGING Diagnoses Ulcer of toe of left foot, limited to breakdown of skin (HCC) Procedures XR TOE AP/LAT/OBL LEFT RADEX TOE MINIMUM [address] [place] [address] [place] [address] Referral ID Status Reason Start Date Expiration Date V isits Requested Visits Authorized [id number] Closed Auto-Generate d Referral 11/21/2023 12/20/2024 1 1 [facility] for visit Narrative* Outpatient Procedure (Routine) - Closed Specialty Diagnoses / Procedures Referred By Contac t Referred To Contact [facility] Diagnoses Screening for colon cancer Procedures COLONOSCOPY SCREENING COLONOSCOPY SCREENING COLONOSCOPY FLX DX W/COLLJ SPEC WHEN PFRMD Mone Robertson PA-C [address] [place] [address] [facility] [place] [address] [place], [place] [address] [place] [address] Referral ID Status Reason Start Date Expiration Date V isits Requested Visits Authorized [id number] Closed Auto-Generate d Referral 06/27/2023 06/27/2024 1 1 [facility] for visit Narrative* MRI/CT (Routine) - Closed Specialty Diagnoses / Procedures Referred By Contac t Referred To Contact CT IMAGING Diagnoses Interstitial pulmonary disease (HCC) Wheezing Acute on chronic hypoxic respiratory failure (HCC) Procedures CT CHEST WO IVCON DIAGNOSTIC COMPUTED TOMOGRAPHY THORAX W/O ESTELARSTru Krause MD [address] [address] Phone: tel: fax: [place] [address] Referral ID Status Reason Start Date Expiration Date V isits Requested Visits Authorized [id number] Closed Auto-Generate d Referral 07/13/2024 08/12/2025 1 1 [facility] for visit Narrative* Outpatient Procedure (Routine) - Closed Specialty Diagnoses / Procedures Referred By Contac t Referred To Contact [facility] Diagnoses Pulmonary arterial hypertension (HCC) Procedures ECHO ECHO TTHRC R-T 2D W/WOM-MODE COMPL SPEC&COLR D Mitchell Caruso, WINDOWS SECURITY ENGINEER.SPECIALTY THERAPIST [address] [place] [address] Phone: tel: fax: [facility] [address] [place] [address] Referral ID Status Reason Start Date Expiration Date V isits Requested Visits Authorized [id number] Closed Auto-Generate d Referral 03/27/2024 03/27/2025 1 1 [facility]* Diagnostic Procedure Only (Routine) - Closed Specialty Diagnoses / Procedures Referred By Contac t Referred To Contact XR IMAGING Diagnoses Hand injury, right, initial encounter Swelling of right hand Procedures XR HAND GENERAL 3V PA/LAT/OBL RIGHT RADEX HAND MINIMUM 3 VIEWS Alma Gill, WINDOWS SECURITY ENGINEER.SPECIALTY THERAPIST [address] [place] [address] Phone: tel: fax: [place] [address] Referral ID Status Reason Start Date Expiration Date V isits Requested Visits Authorized [id number] Closed Auto-Generate d Referral 09/21/2024 10/21/2025 1 1 [facility] Summary Purpose Family History No Family History [...] Documents on File Type Date Recorded 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 Advance Directive(s) 05/22/2020 5:58 PM Documents on File Type Date Recorded 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 Advance Directive(s) 05/22/2020 5:58 PM [...] head trauma Procedures CONSULT TO NEUROLOGY OFFICE/OUTPATIENT NEW HIGH MDM 60-74 MINUTES Alma Gill, WINDOWS SECURITY ENGINEER.SPECIALTY THERAPIST [address] [place] [address] Sonny Gallardo DO [facility] [place] [id number] [place] [address] Referral ID Status Reason Start Date Expiration Date Visits Requested Visits Authorized [id number] Pending Review PCP Requested Referral 11/23/2021 11/23/2022 1 1 Specialty Diagnoses / Procedures Referred By Contac t Referred To Contact General Surgery Diagnoses Screening for colon cancer Procedures CONSULT TO GENERAL SURGERY OFFICE/OUTPATIENT [facility] MDM 60-74 MINUTES Alma Gill APRN.SPECIALTY THERAPIST [address] [place] [address] Dereje Pace MD [address] [address] Referral ID Status Reason Start Date Expiration Date Visits Requested Visits Authorized [id number] Pending Review PCP Requested Referral 11/23/2021 11/23/2022 1 1 Specialty Diagnoses / Procedures Referred By Contac t Referred To Contact CT IMAGING Diagnoses SOB (shortness of breath) on exertion History of recent hospitalization Positive D dimer Procedures CT CHEST W IVCON PE DIAGNOSTIC COMPUTED TOMOGRAPHY THORAX W/CONTRAST Alma Gill APRN.SPECIALTY THERAPIST [address] [place] [address] Ct Imaging Referral ID Status Reason Start Date Expiration Date V isits Requested Visits Authorized [id number] Closed Auto-Generate d Referral 05/13/2022 05/12/2023 1 1 Specialty Diagnoses / Procedures Referred By Contac t Referred To Contact [facility] Department Diagnoses SOB (shortness of breath) on exertion Procedures CONSULT TO PULMONARY MEDICINE Alma Gill APRN.SPECIALTY THERAPIST [address] [place] [address] Francisco Patel MD [address] [place] [address] Referral ID Status Reason Start Date Expiration Date Visits Requested Visits Authorized [id number] Ref Not Required PCP Requested Referral 09/13/2022 12/12/2022 1 1 Specialty Diagnoses / Procedures Referred By Contac t Referred To Contact CT IMAGING Diagnoses Lung nodules Procedures CT CHEST WO IVCON DIAGNOSTIC COMPUTED TOMOGRAPHY THORAX W/O Francisco Solitario MD [address] [place] [address] Ct Imaging Referral ID Status Reason Start Date Expiration Date Visits Requested Visits Authorized [id number] Authorized Auto-Generat ed Referral 12/10/2022 12/20/2023 1 1 Specialty Diagnoses / Procedures Referred By Contac t Referred To Contact Diagnoses Hyponatremia Procedures CONSULT TO NEPHROLOGY OFFICE/OUTPATIENT [facility] 60-74 MINUTES Alma Gill, WINDOWS SECURITY ENGINEER.SPECIALTY THERAPIST [address] [place] [address] [place], [facility] [address] [place] [address] Referral ID Status Reason Start Date Expiration Date Visits Requested Visits Authorized [id number] Authorized PCP Requested Referral 11/16/2022 11/16/2023 1 1 Specialty Diagnoses / Procedures Referred By Contact Referred To Contact Gastroenterology / [facility] DEPARTMENT Diagnoses Positive fecal occult blood test Diarrhea, unspecified type Procedures CONSULT TO GASTROENTEROLOGY OFFICE/OUTPATIENT [facility] MDM 60-74 MINUTES Alma Gill, WINDOWS SECURITY ENGINEER.SPECIALTY THERAPIST [address] [place] [address] [facility] [place] [address] Referral ID Status Reason Start Date Expiration Date Visits Requested Visits Authorized [id number] Authorized PCP Requested Referral 02/08/2023 02/08/2024 1 1 Specialty Diagnoses / Procedures Referred By Contac t Referred To Contact CT IMAGING Diagnoses Lung nodules Procedures CT CHEST WO IVCON DIAGNOSTIC COMPUTED TOMOGRAPHY THORAX W/O Lilian Ray PA-C [address] [place] [address] [place] [address] Referral ID Status Reason Start Date Expiration Date Visits Requested Visits Authorized [id number] Authorized Auto-Generat ed Referral 05/16/2023 05/14/2024 1 1 Specialty Diagnoses / Procedures Referred By Contac t Referred To Contact Podiatry Diagnoses Onychomycosis Procedures CONSULT TO PODIATRY OFFICE/OUTPATIENT [facility] 60 MINUTES Katelynn Knowles, [address] [place] [address] Referral ID Status Reason Start Date Expiration Date Visits Requested Visits Authorized [id number] Authorized PCP Requested Referral 08/29/2023 08/28/2024 1 1 Specialty Diagnoses / Procedures Referred By Contac t Referred To Contact [facility] Diagnoses Peripheral arterial disease (HCC) Procedures [facility] NON-INVASIVE PHYSIOLOGIC STUDY EXTREMITY 3 LEVLS Katelynn Knowles, [address] [place] [address] [facility] [place] [address] [place] [address] Referral ID Status Reason Start Date Expiration Date Visits Requested Visits Authorized [id number] Authorized Auto-Generat ed Referral 08/29/2023 08/28/2024 1 1 Specialty Diagnoses / Procedures Referred By Contac t Referred To Contact Diagnoses Hypersensitivity pneumonitis (HCC) Tru Simon MD [address] [address] Referral ID Status Reason Start Date Expiration Date V isits Requested Visits Authorized [id number] Pending Review 1 1 Medications Administered Section [...] DATE CREATED AUTHOR AUTHOR'S ORGANIZ ATION 10/19/2021 [facility] DATE CREATED AUTHOR AUTHOR'S ORGANIZ ATION 06/16/2024 [facility] DATE CREATED AUTHOR AUTHOR'S ORGANIZ ATION 07/31/2024 [facility] DATE CREATED AUTHOR AUTHOR'S ORGANIZ ATION 10/17/2024 [facility] DATE CREATED AUTHOR AUTHOR'S ORGANIZ ATION 03/03/2025 [facility] DATE CREATED AUTHOR AUTHOR'S ORGANIZ ATION 03/18/2025 [facility] Source Comments (unrecognize d section and content) In the event this informatio n is protected by the Federal Confidentiality of Alcohol and Drug Abuse Patient Records regulations: The Federal rules restrict any use of the information to criminally investigate or prosecute any alcohol or drug abuse patient.[facility] the event this information is protected by the Federal Confidentiality of Alcohol and Drug Abuse Patient Records regulations: The Federal rules restrict any use of the information to criminally investigate or prosecute any alcohol or drug abuse patient.[facility] the event this information is protected by the Federal Confidentiality of Alcohol and Drug Abuse Patient Records regulations: The Federal rules restrict any use of the information to criminally investigate or prosecute any alcohol or drug abuse patient.[facility]In the event this information is protected by the Federal Confidentiality of Alcohol and Drug Abuse Patient Records regulations: The Federal rules restrict any use of the information to criminally investigate or prosecute any alcohol or drug abuse patient.[facility] the event this information is protected by the Federal Confidentiality of Alcohol and Drug Abuse Patient Records regulations: The Federal rules restrict any use of the information to criminally investigate or prosecute any alcohol or drug abuse patient.[facility] the event this information is protected by the Federal Confidentiality of Alcohol and Drug Abuse Patient Records regulations: The Federal rules restrict any use of the information to criminally investigate or prosecute any alcohol or drug abuse patient.[facility] the event this information is protected by the Federal Confidentiality of Alcohol and Drug Abuse Patient Records regulations: The Federal rules restrict any use of the information to criminally investigate or prosecute any alcohol or drug abuse patient.[facility] the event this information is protected by the Federal Confidentiality of Alcohol and Drug Abuse Patient Records regulations: The Federal rules restrict any use of the information to criminally investigate or prosecute any alcohol or drug abuse patient.[facility]In the event this information is protected by the Federal Confidentiality of Alcohol and Drug Abuse Patient Records regulations: The Federal rules restrict any use of the information to criminally investigate or prosecute any alcohol or drug abuse patient.[facility]In the event this information is protected by the Federal Confidentiality of Alcohol and Drug Abuse Patient Records regulations: The Federal rules restrict any use of the information to criminally investigate or prosecute any alcohol or drug abuse patient.[facility]In the event this information is protected by the Federal Confidentiality of Alcohol and Drug Abuse Patient Records regulations: The Federal rules restrict any use of the information to criminally investigate or prosecute any alcohol or drug abuse patient.[facility]In the event this information is protected by the Federal Confidentiality of Alcohol and Drug Abuse Patient Records regulations: The Federal rules restrict any use of the information to criminally investigate or prosecute any alcohol or drug abuse patient.[facility]In the event this information is protected by the Federal Confidentiality of Alcohol and Drug Abuse Patient Records regulations: The Federal rules restrict any use of the information to criminally investigate or prosecute any alcohol or drug abuse patient.[facility]In the event this information is protected by the Federal Confidentiality of Alcohol and Drug Abuse Patient Records regulations: The Federal rules restrict any use of the information to criminally investigate or prosecute any alcohol or drug abuse patient.[facility]In the event this information is protected by the Federal Confidentiality of Alcohol and Drug Abuse Patient Records regulations: The Federal rules restrict any use of the information to criminally investigate or prosecute any alcohol or drug abuse patient.[facility]In the event this information is protected by the Federal Confidentiality of Alcohol and Drug Abuse Patient Records regulations: The Federal rules restrict any use of the information to criminally investigate or prosecute any alcohol or drug abuse patient.[facility]In the event this information is protected by the Federal Confidentiality of Alcohol and Drug Abuse Patient Records regulations: The Federal rules restrict any use of the information to criminally investigate or prosecute any alcohol or drug abuse patient.[facility] WestIn the event this information is protected by the Federal Confidentiality of Alcohol and Drug Abuse Patient Records regulations: The Federal rules restrict any use of the information to criminally investigate or prosecute any alcohol or drug abuse patient.[facility] WestIn the event this information is protected by the Federal Confidentiality of Alcohol and Drug Abuse Patient Records regulations: The Federal rules restrict any use of the information to criminally investigate or prosecute any alcohol or drug abuse patient.[facility] WestIn the event this information is protected by the Federal Confidentiality of Alcohol and Drug Abuse Patient Records regulations: The Federal rules restrict any use of the information to criminally investigate or prosecute any alcohol or drug abuse patient.[facility]In the event this information is protected by the Federal Confidentiality of Alcohol and Drug Abuse Patient Records regulations: The Federal rules restrict any use of the information to criminally investigate or prosecute any alcohol or drug abuse patient.[facility] WestIn the event this information is protected by the Federal Confidentiality of Alcohol and Drug Abuse Patient Records regulations: The Federal rules restrict any use of the information to criminally investigate or prosecute any alcohol or drug abuse patient.[facility] WestIn the event this information is protected by the Federal Confidentiality of Alcohol and Drug Abuse Patient Records regulations: The Federal rules restrict any use of the information to criminally investigate or prosecute any alcohol or drug abuse patient.[facility] WestIn the event this information is protected by the Federal Confidentiality of Alcohol and Drug Abuse Patient Records regulations: The Federal rules restrict any use of the information to criminally investigate or prosecute any alcohol or drug abuse patient.[facility] WestIn the event this information is protected by the Federal Confidentiality of Alcohol and Drug Abuse Patient Records regulations: The Federal rules restrict any use of the information to criminally investigate or prosecute any alcohol or drug abuse patient.[facility] WestIn the event this information is protected by the Federal Confidentiality of Alcohol and Drug Abuse Patient Records regulations: The Federal rules restrict any use of the information to criminally investigate or prosecute any alcohol or drug abuse patient.[facility] WestIn the event this information is protected by the Federal Confidentiality of Alcohol and Drug Abuse Patient Records regulations: The Federal rules restrict any use of the information to criminally investigate or prosecute any alcohol or drug abuse patient.[facility] WestIn the event this information is protected by the Federal Confidentiality of Alcohol and Drug Abuse Patient Records regulations: The Federal rules restrict any use of the information to criminally investigate or prosecute any alcohol or drug abuse patient.[facility] WestIn the event this information is protected by the Federal Confidentiality of Alcohol and Drug Abuse Patient Records regulations: The Federal rules restrict any use of the information to criminally investigate or prosecute any alcohol or drug abuse patient.[facility] WestIn the event this information is protected by the Federal Confidentiality of Alcohol and Drug Abuse Patient Records regulations: The Federal rules restrict any use of the information to criminally investigate or prosecute any alcohol or drug abuse patient.[facility] WestIn the event this information is protected by the Federal Confidentiality of Alcohol and Drug Abuse Patient Records regulations: The Federal rules restrict any use of the information to criminally investigate or prosecute any alcohol or drug abuse patient.[facility] WestIn the event this information is protected by the Federal Confidentiality of Alcohol and Drug Abuse Patient Records regulations: The Federal rules restrict any use of the information to criminally investigate or prosecute any alcohol or drug abuse patient.[facility] WestIn the event this information is protected by the Federal Confidentiality of Alcohol and Drug Abuse Patient Records regulations: The Federal rules restrict any use of the information to criminally investigate or prosecute any alcohol or drug abuse patient.[facility] WestIn the event this information is protected by the Federal Confidentiality of Alcohol and Drug Abuse Patient Records regulations: The Federal rules restrict any use of the information to criminally investigate or prosecute any alcohol or drug abuse patient.[facility] WestIn the event this information is protected by the Federal Confidentiality of Alcohol and Drug Abuse Patient Records regulations: The Federal rules restrict any use of the information to criminally investigate or prosecute any alcohol or drug abuse patient.[facility]In the event this information is protected by the Federal Confidentiality of Alcohol and Drug Abuse Patient Records regulations: The Federal rules restrict any use of the information to criminally investigate or prosecute any alcohol or drug abuse patient.[facility] WestIn the event this information is protected by the Federal Confidentiality of Alcohol and Drug Abuse Patient Records regulations: The Federal rules restrict any use of the information to criminally investigate or prosecute any alcohol or drug abuse patient.[facility] WestIn the event this information is protected by the Federal Confidentiality of Alcohol and Drug Abuse Patient Records regulations: The Federal rules restrict any use of the information to criminally investigate or prosecute any alcohol or drug abuse patient.[facility] WestIn the event this information is protected by the Federal Confidentiality of Alcohol and Drug Abuse Patient Records regulations: The Federal rules restrict any use of the information to criminally investigate or prosecute any alcohol or drug abuse patient.[facility] WestIn the event this information is protected by the Federal Confidentiality of Alcohol and Drug Abuse Patient Records regulations: The Federal rules restrict any use of the information to criminally investigate or prosecute any alcohol or drug abuse patient.[facility]In the event this information is protected by the Federal Confidentiality of Alcohol and Drug Abuse Patient Records regulations: The Federal rules restrict any use of the information to criminally investigate or prosecute any alcohol or drug abuse patient.[facility] WestIn the event this information is protected by the Federal Confidentiality of Alcohol and Drug Abuse Patient Records regulations: The Federal rules restrict any use of the information to criminally investigate or prosecute any alcohol or drug abuse patient.[facility] WestIn the event this information is protected by the Federal Confidentiality of Alcohol and Drug Abuse Patient Records regulations: The Federal rules restrict any use of the information to criminally investigate or prosecute any alcohol or drug abuse patient.[facility]In the event this information is protected by the Federal Confidentiality of Alcohol and Drug Abuse Patient Records regulations: The Federal rules restrict any use of the information to criminally investigate or prosecute any alcohol or drug abuse patient.[facility] WestIn the event this information is protected by the Federal Confidentiality of Alcohol and Drug Abuse Patient Records regulations: The Federal rules restrict any use of the information to criminally investigate or prosecute any alcohol or drug abuse patient.[facility] WestIn the event this information is protected by the Federal Confidentiality of Alcohol and Drug Abuse Patient Records regulations: The Federal rules restrict any use of the information to criminally investigate or prosecute any alcohol or drug abuse patient.[facility] the event this information is protected by the Federal Confidentiality of Alcohol and Drug Abuse Patient Records regulations: The Federal rules restrict any use of the information to criminally investigate or prosecute any alcohol or drug abuse patient.[facility]In the event this information is protected by the Federal Confidentiality of Alcohol and Drug Abuse Patient Records regulations: The Federal rules restrict any use of the information to criminally investigate or prosecute any alcohol or drug abuse patient.[facility]In the event this information is protected by the Federal Confidentiality of Alcohol and Drug Abuse Patient Records regulations: The Federal rules restrict any use of the information to criminally investigate or prosecute any alcohol or drug abuse patient.[facility]In the event this information is protected by the Federal Confidentiality of Alcohol and Drug Abuse Patient Records regulations: The Federal rules restrict any use of the information to criminally investigate or prosecute any alcohol or drug abuse patient.[facility]In the event this information is protected by the Federal Confidentiality of Alcohol and Drug Abuse Patient Records regulations: The Federal rules restrict any use of the information to criminally investigate or prosecute any alcohol or drug abuse patient.[facility]In the event this information is protected by the Federal Confidentiality of Alcohol and Drug Abuse Patient Records regulations: The Federal rules restrict any use of the information to criminally investigate or prosecute any alcohol or drug abuse patient.[facility]In the event this information is protected by the Federal Confidentiality of Alcohol and Drug Abuse Patient Records regulations: The Federal rules restrict any use of the information to criminally investigate or prosecute any alcohol or drug abuse patient.[facility]In the event this information is protected by the Federal Confidentiality of Alcohol and Drug Abuse Patient Records regulations: The Federal rules restrict any use of the information to criminally investigate or prosecute any alcohol or drug abuse patient.[facility]In the event this information is protected by the Federal Confidentiality of Alcohol and Drug Abuse Patient Records regulations: The Federal rules restrict any use of the information to criminally investigate or prosecute any alcohol or drug abuse patient.[facility]In the event this information is protected by the Federal Confidentiality of Alcohol and Drug Abuse Patient Records regulations: The Federal rules restrict any use of the information to criminally investigate or prosecute any alcohol or drug abuse patient.[facility]In the event this information is protected by the Federal Confidentiality of Alcohol and Drug Abuse Patient Records regulations: The Federal rules restrict any use of the information to criminally investigate or prosecute any alcohol or drug abuse patient.[facility]In the event this information is protected by the Federal Confidentiality of Alcohol and Drug Abuse Patient Records regulations: The Federal rules restrict any use of the information to criminally investigate or prosecute any alcohol or drug abuse patient.[facility]In the event this information is protected by the Federal Confidentiality of Alcohol and Drug Abuse Patient Records regulations: The Federal rules restrict any use of the information to criminally investigate or prosecute any alcohol or drug abuse patient.[facility]In the event this information is protected by the Federal Confidentiality of Alcohol and Drug Abuse Patient Records regulations: The Federal rules restrict any use of the information to criminally investigate or prosecute any alcohol or drug abuse patient.[facility]In the event this information is protected by the Federal Confidentiality of Alcohol and Drug Abuse Patient Records regulations: The Federal rules restrict any use of the information to criminally investigate or prosecute any alcohol or drug abuse patient.[facility]In the event this information is protected by the Federal Confidentiality of Alcohol and Drug Abuse Patient Records regulations: The Federal rules restrict any use of the information to criminally investigate or prosecute any alcohol or drug abuse patient.[facility]In the event this information is protected by the Federal Confidentiality of Alcohol and Drug Abuse Patient Records regulations: The Federal rules restrict any use of the information to criminally investigate or prosecute any alcohol or drug abuse patient.[facility]In the event this information is protected by the Federal Confidentiality of Alcohol and Drug Abuse Patient Records regulations: The Federal rules restrict any use of the information to criminally investigate or prosecute any alcohol or drug abuse patient.[facility]In the event this information is protected by the Federal Confidentiality of Alcohol and Drug Abuse Patient Records regulations: The Federal rules restrict any use of the information to criminally investigate or prosecute any alcohol or drug abuse patient.[facility]In the event this information is protected by the Federal Confidentiality of Alcohol and Drug Abuse Patient Records regulations: The Federal rules restrict any use of the information to criminally investigate or prosecute any alcohol or drug abuse patient.[facility]In the event this information is protected by the Federal Confidentiality of Alcohol and Drug Abuse Patient Records regulations: The Federal rules restrict any use of the information to criminally investigate or prosecute any alcohol or drug abuse patient.[facility]In the event this information is protected by the Federal Confidentiality of Alcohol and Drug Abuse Patient Records regulations: The Federal rules restrict any use of the information to criminally investigate or prosecute any alcohol or drug abuse patient.[facility]In the event this information is protected by the Federal Confidentiality of Alcohol and Drug Abuse Patient Records regulations: The Federal rules restrict any use of the information to criminally investigate or prosecute any alcohol or drug abuse patient.[facility]In the event this information is protected by the Federal Confidentiality of Alcohol and Drug Abuse Patient Records regulations: The Federal rules restrict any use of the information to criminally investigate or prosecute any alcohol or drug abuse patient.[facility]In the event this information is protected by the Federal Confidentiality of Alcohol and Drug Abuse Patient Records regulations: The Federal rules restrict any use of the information to criminally investigate or prosecute any alcohol or drug abuse patient.[facility]In the event this information is protected by the Federal Confidentiality of Alcohol and Drug Abuse Patient Records regulations: The Federal rules restrict any use of the information to criminally investigate or prosecute any alcohol or drug abuse patient.[facility]In the event this information is protected by the Federal Confidentiality of Alcohol and Drug Abuse Patient Records regulations: The Federal rules restrict any use of the information to criminally investigate or prosecute any alcohol or drug abuse patient.[facility]In the event this information is protected by the Federal Confidentiality of Alcohol and Drug Abuse Patient Records regulations: The Federal rules restrict any use of the information to criminally investigate or prosecute any alcohol or drug abuse patient.[facility]In the event this information is protected by the Federal Confidentiality of Alcohol and Drug Abuse Patient Records regulations: The Federal rules restrict any use of the information to criminally investigate or prosecute any alcohol or drug abuse patient.[facility]In the event this information is protected by the Federal Confidentiality of Alcohol and Drug Abuse Patient Records regulations: The Federal rules restrict any use of the information to criminally investigate or prosecute any alcohol or drug abuse patient.[facility]In the event this information is protected by the Federal Confidentiality of Alcohol and Drug Abuse Patient Records regulations: The Federal rules restrict any use of the information to criminally investigate or prosecute any alcohol or drug abuse patient.[facility]In the event this information is protected by the Federal Confidentiality of Alcohol and Drug Abuse Patient Records regulations: The Federal rules restrict any use of the information to criminally investigate or prosecute any alcohol or drug abuse patient.[facility]In the event this information is protected by the Federal Confidentiality of Alcohol and Drug Abuse Patient Records regulations: The Federal rules restrict any use of the information to criminally investigate or prosecute any alcohol or drug abuse patient.[facility]In the event this information is protected by the Federal Confidentiality of Alcohol and Drug Abuse Patient Records regulations: The Federal rules restrict any use of the information to criminally investigate or prosecute any alcohol or drug abuse patient.[facility]In the event this information is protected by the Federal Confidentiality of Alcohol and Drug Abuse Patient Records regulations: The Federal rules restrict any use of the information to criminally investigate or prosecute any alcohol or drug abuse patient.[facility]In the event this information is protected by the Federal Confidentiality of Alcohol and Drug Abuse Patient Records regulations: The Federal rules restrict any use of the information to criminally investigate or prosecute any alcohol or drug abuse patient.[facility]In the event this information is protected by the Federal Confidentiality of Alcohol and Drug Abuse Patient Records regulations: The Federal rules restrict any use of the information to criminally investigate or prosecute any alcohol or drug abuse patient.[facility]In the event this information is protected by the Federal Confidentiality of Alcohol and Drug Abuse Patient Records regulations: The Federal rules restrict any use of the information to criminally investigate or prosecute any alcohol or drug abuse patient.[facility]In the event this information is protected by the Federal Confidentiality of Alcohol and Drug Abuse Patient Records regulations: The Federal rules restrict any use of the information to criminally investigate or prosecute any alcohol or drug abuse patient.[facility]In the event this information is protected by the Federal Confidentiality of Alcohol and Drug Abuse Patient Records regulations: The Federal rules restrict any use of the information to criminally investigate or prosecute any alcohol or drug abuse patient.[facility]In the event this information is protected by the Federal Confidentiality of Alcohol and Drug Abuse Patient Records regulations: The Federal rules restrict any use of the information to criminally investigate or prosecute any alcohol or drug abuse patient.[facility]In the event this information is protected by the Federal Confidentiality of Alcohol and Drug Abuse Patient Records regulations: The Federal rules restrict any use of the information to criminally investigate or prosecute any alcohol or drug abuse patient.[facility]In the event this information is protected by the Federal Confidentiality of Alcohol and Drug Abuse Patient Records regulations: The Federal rules restrict any use of the information to criminally investigate or prosecute any alcohol or drug abuse patient.[facility]In the event this information is protected by the Federal Confidentiality of Alcohol and Drug Abuse Patient Records regulations: The Federal rules restrict any use of the information to criminally investigate or prosecute any alcohol or drug abuse patient.[facility]In the event this information is protected by the Federal Confidentiality of Alcohol and Drug Abuse Patient Records regulations: The Federal rules restrict any use of the information to criminally investigate or prosecute any alcohol or drug abuse patient.[facility]In the event this information is protected by the Federal Confidentiality of Alcohol and Drug Abuse Patient Records regulations: The Federal rules restrict any use of the information to criminally investigate or prosecute any alcohol or drug abuse patient.[facility]In the event this information is protected by the Federal Confidentiality of Alcohol and Drug Abuse Patient Records regulations: The Federal rules restrict any use of the information to criminally investigate or prosecute any alcohol or drug abuse patient.[facility]In the event this information is protected by the Federal Confidentiality of Alcohol and Drug Abuse Patient Records regulations: The Federal rules restrict any use of the information to criminally investigate or prosecute any alcohol or drug abuse patient.[facility]In the event this information is protected by the Federal Confidentiality of Alcohol and Drug Abuse Patient Records regulations: The Federal rules restrict any use of the information to criminally investigate or prosecute any alcohol or drug abuse patient.[facility]In the event this information is protected by the Federal Confidentiality of Alcohol and Drug Abuse Patient Records regulations: The Federal rules restrict any use of the information to criminally investigate or prosecute any alcohol or drug abuse patient.[facility]In the event this information is protected by the Federal Confidentiality of Alcohol and Drug Abuse Patient Records regulations: The Federal rules restrict any use of the information to criminally investigate or prosecute any alcohol or drug abuse patient.[facility]In the event this information is protected by the Federal Confidentiality of Alcohol and Drug Abuse Patient Records regulations: The Federal rules restrict any use of the information to criminally investigate or prosecute any alcohol or drug abuse patient.[facility]In the event this information is protected by the Federal Confidentiality of Alcohol and Drug Abuse Patient Records regulations: The Federal rules restrict any use of the information to criminally investigate or prosecute any alcohol or drug abuse patient.[facility]In the event this information is protected by the Federal Confidentiality of Alcohol and Drug Abuse Patient Records regulations: The Federal rules restrict any use of the information to criminally investigate or prosecute any alcohol or drug abuse patient.[facility]In the event this information is protected by the Federal Confidentiality of Alcohol and Drug Abuse Patient Records regulations: The Federal rules restrict any use of the information to criminally investigate or prosecute any alcohol or drug abuse patient.[facility]In the event this information is protected by the Federal Confidentiality of Alcohol and Drug Abuse Patient Records regulations: The Federal rules restrict any use of the information to criminally investigate or prosecute any alcohol or drug abuse patient.[facility]In the event this information is protected by the Federal Confidentiality of Alcohol and Drug Abuse Patient Records regulations: The Federal rules restrict any use of the information to criminally investigate or prosecute any alcohol or drug abuse patient.[facility]In the event this information is protected by the Federal Confidentiality of Alcohol and Drug Abuse Patient Records regulations: The Federal rules restrict any use of the information to criminally investigate or prosecute any alcohol or drug abuse patient.[facility]In the event this information is protected by the Federal Confidentiality of Alcohol and Drug Abuse Patient Records regulations: The Federal rules restrict any use of the information to criminally investigate or prosecute any alcohol or drug abuse patient.[facility]In the event this information is protected by the Federal Confidentiality of Alcohol and Drug Abuse Patient Records regulations: The Federal rules restrict any use of the information to criminally investigate or prosecute any alcohol or drug abuse patient.[facility]In the event this information is protected by the Federal Confidentiality of Alcohol and Drug Abuse Patient Records regulations: The Federal rules restrict any use of the information to criminally investigate or prosecute any alcohol or drug abuse patient.[facility]In the event this information is protected by the Federal Confidentiality of Alcohol and Drug Abuse Patient Records regulations: The Federal rules restrict any use of the information to criminally investigate or prosecute any alcohol or drug abuse patient.[facility]In the event this information is protected by the Federal Confidentiality of Alcohol and Drug Abuse Patient Records regulations: The Federal rules restrict any use of the information to criminally investigate or prosecute any alcohol or drug abuse patient.[facility]In the event this information is protected by the Federal Confidentiality of Alcohol and Drug Abuse Patient Records regulations: The Federal rules restrict any use of the information to criminally investigate or prosecute any alcohol or drug abuse patient.[facility]In the event this information is protected by the Federal Confidentiality of Alcohol and Drug Abuse Patient Records regulations: The Federal rules restrict any use of the information to criminally investigate or prosecute any alcohol or drug abuse patient.[facility]In the event this information is protected by the Federal Confidentiality of Alcohol and Drug Abuse Patient Records regulations: The Federal rules restrict any use of the information to criminally investigate or prosecute any alcohol or drug abuse patient.[facility]In the event this information is protected by the Federal Confidentiality of Alcohol and Drug Abuse Patient Records regulations: The Federal rules restrict any use of the information to criminally investigate or prosecute any alcohol or drug abuse patient.[facility]In the event this information is protected by the Federal Confidentiality of Alcohol and Drug Abuse Patient Records regulations: The Federal rules restrict any use of the information to criminally investigate or prosecute any alcohol or drug abuse patient.[facility]In the event this information is protected by the Federal Confidentiality of Alcohol and Drug Abuse Patient Records regulations: The Federal rules restrict any use of the information to criminally investigate or prosecute any alcohol or drug abuse patient.[facility]In the event this information is protected by the Federal Confidentiality of Alcohol and Drug Abuse Patient Records regulations: The Federal rules restrict any use of the information to criminally investigate or prosecute any alcohol or drug abuse patient.[facility]In the event this information is protected by the Federal Confidentiality of Alcohol and Drug Abuse Patient Records regulations: The Federal rules restrict any use of the information to criminally investigate or prosecute any alcohol or drug abuse patient.[facility]In the event this information is protected by the Federal Confidentiality of Alcohol and Drug Abuse Patient Records regulations: The Federal rules restrict any use of the information to criminally investigate or prosecute any alcohol or drug abuse patient.[facility]In the event this information is protected by the Federal Confidentiality of Alcohol and Drug Abuse Patient Records regulations: The Federal rules restrict any use of the information to criminally investigate or prosecute any alcohol or drug abuse patient.[facility]In the event this information is protected by the Federal Confidentiality of Alcohol and Drug Abuse Patient Records regulations: The Federal rules restrict any use of the information to criminally investigate or prosecute any alcohol or drug abuse patient.[facility]In the event this information is protected by the Federal Confidentiality of Alcohol and Drug Abuse Patient Records regulations: The Federal rules restrict any use of the information to criminally investigate or prosecute any alcohol or drug abuse patient.[facility]In the event this information is protected by the Federal Confidentiality of Alcohol and Drug Abuse Patient Records regulations: The Federal rules restrict any use of the information to criminally investigate or prosecute any alcohol or drug abuse patient.[facility]In the event this information is protected by the Federal Confidentiality of Alcohol and Drug Abuse Patient Records regulations: The Federal rules restrict any use of the information to criminally investigate or prosecute any alcohol or drug abuse patient.[facility]In the event this information is protected by the Federal Confidentiality of Alcohol and Drug Abuse Patient Records regulations: The Federal rules restrict any use of the information to criminally investigate or prosecute any alcohol or drug abuse patient.[facility]In the event this information is protected by the Federal Confidentiality of Alcohol and Drug Abuse Patient Records regulations: The Federal rules restrict any use of the information to criminally investigate or prosecute any alcohol or drug abuse patient.[facility]In the event this information is protected by the Federal Confidentiality of Alcohol and Drug Abuse Patient Records regulations: The Federal rules restrict any use of the information to criminally investigate or prosecute any alcohol or drug abuse patient.[facility]In the event this information is protected by the Federal Confidentiality of Alcohol and Drug Abuse Patient Records regulations: The Federal rules restrict any use of the information to criminally investigate or prosecute any alcohol or drug abuse patient.[facility]In the event this information is protected by the Federal Confidentiality of Alcohol and Drug Abuse Patient Records regulations: The Federal rules restrict any use of the information to criminally investigate or prosecute any alcohol or drug abuse patient.[facility] WestIn the event this information is protected by the Federal Confidentiality of Alcohol and Drug Abuse Patient Records regulations: The Federal rules restrict any use of the information to criminally investigate or prosecute any alcohol or drug abuse patient.[facility] WestIn the event this information is protected by the Federal Confidentiality of Alcohol and Drug Abuse Patient Records regulations: The Federal rules restrict any use of the information to criminally investigate or prosecute any alcohol or drug abuse patient.[facility] WestIn the event this information is protected by the Federal Confidentiality of Alcohol and Drug Abuse Patient Records regulations: The Federal rules restrict any use of the information to criminally investigate or prosecute any alcohol or drug abuse patient.[facility] WestIn the event this information is protected by the Federal Confidentiality of Alcohol and Drug Abuse Patient Records regulations: The Federal rules restrict any use of the information to criminally investigate or prosecute any alcohol or drug abuse patient.[facility] WestIn the event this information is protected by the Federal Confidentiality of Alcohol and Drug Abuse Patient Records regulations: The Federal rules restrict any use of the information to criminally investigate or prosecute any alcohol or drug abuse patient.[facility] WestIn the event this information is protected by the Federal Confidentiality of Alcohol and Drug Abuse Patient Records regulations: The Federal rules restrict any use of the information to criminally investigate or prosecute any alcohol or drug abuse patient.[facility] WestIn the event this information is protected by the Federal Confidentiality of Alcohol and Drug Abuse Patient Records regulations: The Federal rules restrict any use of the information to criminally investigate or prosecute any alcohol or drug abuse patient.[facility] WestIn the event this information is protected by the Federal Confidentiality of Alcohol and Drug Abuse Patient Records regulations: The Federal rules restrict any use of the information to criminally investigate or prosecute any alcohol or drug abuse patient.[facility] WestIn the event this information is protected by the Federal Confidentiality of Alcohol and Drug Abuse Patient Records regulations: The Federal rules restrict any use of the information to criminally investigate or prosecute any alcohol or drug abuse patient.[facility] WestIn the event this information is protected by the Federal Confidentiality of Alcohol and Drug Abuse Patient Records regulations: The Federal rules restrict any use of the information to criminally investigate or prosecute any alcohol or drug abuse patient.[facility] WestIn the event this information is protected by the Federal Confidentiality of Alcohol and Drug Abuse Patient Records regulations: The Federal rules restrict any use of the information to criminally investigate or prosecute any alcohol or drug abuse patient.[facility] WestIn the event this information is protected by the Federal Confidentiality of Alcohol and Drug Abuse Patient Records regulations: The Federal rules restrict any use of the information to criminally investigate or prosecute any alcohol or drug abuse patient.[facility] WestIn the event this information is protected by the Federal Confidentiality of Alcohol and Drug Abuse Patient Records regulations: The Federal rules restrict any use of the information to criminally investigate or prosecute any alcohol or drug abuse patient.[facility] WestIn the event this information is protected by the Federal Confidentiality of Alcohol and Drug Abuse Patient Records regulations: The Federal rules restrict any use of the information to criminally investigate or prosecute any alcohol or drug abuse patient.[facility] WestIn the event this information is protected by the Federal Confidentiality of Alcohol and Drug Abuse Patient Records regulations: The Federal rules restrict any use of the information to criminally investigate or prosecute any alcohol or drug abuse patient.[facility] WestIn the event this information is protected by the Federal Confidentiality of Alcohol and Drug Abuse Patient Records regulations: The Federal rules restrict any use of the information to criminally investigate or prosecute any alcohol or drug abuse patient.[facility] WestIn the event this information is protected by the Federal Confidentiality of Alcohol and Drug Abuse Patient Records regulations: The Federal rules restrict any use of the information to criminally investigate or prosecute any alcohol or drug abuse patient.[facility] WestIn the event this information is protected by the Federal Confidentiality of Alcohol and Drug Abuse Patient Records regulations: The Federal rules restrict any use of the information to criminally investigate or prosecute any alcohol or drug abuse patient.[facility] WestIn the event this information is protected by the Federal Confidentiality of Alcohol and Drug Abuse Patient Records regulations: The Federal rules restrict any use of the information to criminally investigate or prosecute any alcohol or drug abuse patient.[facility] WestIn the event this information is protected by the Federal Confidentiality of Alcohol and Drug Abuse Patient Records regulations: The Federal rules restrict any use of the information to criminally investigate or prosecute any alcohol or drug abuse patient.[facility]In the event this information is protected by the Federal Confidentiality of Alcohol and Drug Abuse Patient Records regulations: The Federal rules restrict any use of the information to criminally investigate or prosecute any alcohol or drug abuse patient.[facility]In the event this information is protected by the Federal Confidentiality of Alcohol and Drug Abuse Patient Records regulations: The Federal rules restrict any use of the information to criminally investigate or prosecute any alcohol or drug abuse patient.[facility] WestIn the event this information is protected by the Federal Confidentiality of Alcohol and Drug Abuse Patient Records regulations: The Federal rules restrict any use of the information to criminally investigate or prosecute any alcohol or drug abuse patient.[facility]In the event this information is protected by the Federal Confidentiality of Alcohol and Drug Abuse Patient Records regulations: The Federal rules restrict any use of the information to criminally investigate or prosecute any alcohol or drug abuse patient.[facility] WestIn the event this information is protected by the Federal Confidentiality of Alcohol and Drug Abuse Patient Records regulations: The Federal rules restrict any use of the information to criminally investigate or prosecute any alcohol or drug abuse patient.[facility] WestIn the event this information is protected by the Federal Confidentiality of Alcohol and Drug Abuse Patient Records regulations: The Federal rules restrict any use of the information to criminally investigate or prosecute any alcohol or drug abuse patient.[facility]In the event this information is protected by the Federal Confidentiality of Alcohol and Drug Abuse Patient Records regulations: The Federal rules restrict any use of the information to criminally investigate or prosecute any alcohol or drug abuse patient.[facility] WestIn the event this information is protected by the Federal Confidentiality of Alcohol and Drug Abuse Patient Records regulations: The Federal rules restrict any use of the information to criminally investigate or prosecute any alcohol or drug abuse patient.[facility] WestIn the event this information is protected by the Federal Confidentiality of Alcohol and Drug Abuse Patient Records regulations: The Federal rules restrict any use of the information to criminally investigate or prosecute any alcohol or drug abuse patient.[facility] WestIn the event this information is protected by the Federal Confidentiality of Alcohol and Drug Abuse Patient Records regulations: The Federal rules restrict any use of the information to criminally investigate or prosecute any alcohol or drug abuse patient.[facility]In the event this information is protected by the Federal Confidentiality of Alcohol and Drug Abuse Patient Records regulations: The Federal rules restrict any use of the information to criminally investigate or prosecute any alcohol or drug abuse patient.[facility]In the event this information is protected by the Federal Confidentiality of Alcohol and Drug Abuse Patient Records regulations: The Federal rules restrict any use of the information to criminally investigate or prosecute any alcohol or drug abuse patient.[facility]In the event this information is protected by the Federal Confidentiality of Alcohol and Drug Abuse Patient Records regulations: The Federal rules restrict any use of the information to criminally investigate or prosecute any alcohol or drug abuse patient.[facility]In the event this information is protected by the Federal Confidentiality of Alcohol and Drug Abuse Patient Records regulations: The Federal rules restrict any use of the information to criminally investigate or prosecute any alcohol or drug abuse patient.[facility]In the event this information is protected by the Federal Confidentiality of Alcohol and Drug Abuse Patient Records regulations: The Federal rules restrict any use of the information to criminally investigate or prosecute any alcohol or drug abuse patient.[facility] WestIn the event this information is protected by the Federal Confidentiality of Alcohol and Drug Abuse Patient Records regulations: The Federal rules restrict any use of the information to criminally investigate or prosecute any alcohol or drug abuse patient.[facility]In the event this information is protected by the Federal Confidentiality of Alcohol and Drug Abuse Patient Records regulations: The Federal rules restrict any use of the information to criminally investigate or prosecute any alcohol or drug abuse patient.[facility]In the event this information is protected by the Federal Confidentiality of Alcohol and Drug Abuse Patient Records regulations: The Federal rules restrict any use of the information to criminally investigate or prosecute any alcohol or drug abuse patient.[facility] WestIn the event this information is protected by the Federal Confidentiality of Alcohol and Drug Abuse Patient Records regulations: The Federal rules restrict any use of the information to criminally investigate or prosecute any alcohol or drug abuse patient.[facility]In the event this information is protected by the Federal Confidentiality of Alcohol and Drug Abuse Patient Records regulations: The Federal rules restrict any use of the information to criminally investigate or prosecute any alcohol or drug abuse patient.[facility]In the event this information is protected by the Federal Confidentiality of Alcohol and Drug Abuse Patient Records regulations: The Federal rules restrict any use of the information to criminally investigate or prosecute any alcohol or drug abuse patient.[facility]In the event this information is protected by the Federal Confidentiality of Alcohol and Drug Abuse Patient Records regulations: The Federal rules restrict any use of the information to criminally investigate or prosecute any alcohol or drug abuse patient.[facility] WestIn the event this information is protected by the Federal Confidentiality of Alcohol and Drug Abuse Patient Records regulations: The Federal rules restrict any use of the information to criminally investigate or prosecute any alcohol or drug abuse patient.[facility]In the event this information is protected by the Federal Confidentiality of Alcohol and Drug Abuse Patient Records regulations: The Federal rules restrict any use of the information to criminally investigate or prosecute any alcohol or drug abuse patient.[facility] WestIn the event this information is protected by the Federal Confidentiality of Alcohol and Drug Abuse Patient Records regulations: The Federal rules restrict any use of the information to criminally investigate or prosecute any alcohol or drug abuse patient.[facility] WestIn the event this information is protected by the Federal Confidentiality of Alcohol and Drug Abuse Patient Records regulations: The Federal rules restrict any use of the information to criminally investigate or prosecute any alcohol or drug abuse patient.[facility]In the event this information is protected by the Federal Confidentiality of Alcohol and Drug Abuse Patient Records regulations: The Federal rules restrict any use of the information to criminally investigate or prosecute any alcohol or drug abuse patient.[facility] WestIn the event this information is protected by the Federal Confidentiality of Alcohol and Drug Abuse Patient Records regulations: The Federal rules restrict any use of the information to criminally investigate or prosecute any alcohol or drug abuse patient.[facility]In the event this information is protected by the Federal Confidentiality of Alcohol and Drug Abuse Patient Records regulations: The Federal rules restrict any use of the information to criminally investigate or prosecute any alcohol or drug abuse patient.[facility]In the event this information is protected by the Federal Confidentiality of Alcohol and Drug Abuse Patient Records regulations: The Federal rules restrict any use of the information to criminally investigate or prosecute any alcohol or drug abuse patient.[facility] WestIn the event this information is protected by the Federal Confidentiality of Alcohol and Drug Abuse Patient Records regulations: The Federal rules restrict any use of the information to criminally investigate or prosecute any alcohol or drug abuse patient.[facility]In the event this information is protected by the Federal Confidentiality of Alcohol and Drug Abuse Patient Records regulations: The Federal rules restrict any use of the information to criminally investigate or prosecute any alcohol or drug abuse patient.[facility]In the event this information is protected by the Federal Confidentiality of Alcohol and Drug Abuse Patient Records regulations: The Federal rules restrict any use of the information to criminally investigate or prosecute any alcohol or drug abuse patient.[facility]In the event this information is protected by the Federal Confidentiality of Alcohol and Drug Abuse Patient Records regulations: The Federal rules restrict any use of the information to criminally investigate or prosecute any alcohol or drug abuse patient.[facility]In the event this information is protected by the Federal Confidentiality of Alcohol and Drug Abuse Patient Records regulations: The Federal rules restrict any use of the information to criminally investigate or prosecute any alcohol or drug abuse patient.[facility]In the event this information is protected by the Federal Confidentiality of Alcohol and Drug Abuse Patient Records regulations: The Federal rules restrict any use of the information to criminally investigate or prosecute any alcohol or drug abuse patient.[facility]In the event this information is protected by the Federal Confidentiality of Alcohol and Drug Abuse Patient Records regulations: The Federal rules restrict any use of the information to criminally investigate or prosecute any alcohol or drug abuse patient.[facility] WestIn the event this information is protected by the Federal Confidentiality of Alcohol and Drug Abuse Patient Records regulations: The Federal rules restrict any use of the information to criminally investigate or prosecute any alcohol or drug abuse patient.[facility]In the event this information is protected by the Federal Confidentiality of Alcohol and Drug Abuse Patient Records regulations: The Federal rules restrict any use of the information to criminally investigate or prosecute any alcohol or drug abuse patient.[facility]In the event this information is protected by the Federal Confidentiality of Alcohol and Drug Abuse Patient Records regulations: The Federal rules restrict any use of the information to criminally investigate or prosecute any alcohol or drug abuse patient.[facility] WestIn the event this information is protected by the Federal Confidentiality of Alcohol and Drug Abuse Patient Records regulations: The Federal rules restrict any use of the information to criminally investigate or prosecute any alcohol or drug abuse patient.[facility]In the event this information is protected by the Federal Confidentiality of Alcohol and Drug Abuse Patient Records regulations: The Federal rules restrict any use of the information to criminally investigate or prosecute any alcohol or drug abuse patient.[facility]In the event this information is protected by the Federal Confidentiality of Alcohol and Drug Abuse Patient Records regulations: The Federal rules restrict any use of the information to criminally investigate or prosecute any alcohol or drug abuse patient.[facility]In the event this information is protected by the Federal Confidentiality of Alcohol and Drug Abuse Patient Records regulations: The Federal rules restrict any use of the information to criminally investigate or prosecute any alcohol or drug abuse patient.[facility]In the event this information is protected by the Federal Confidentiality of Alcohol and Drug Abuse Patient Records regulations: The Federal rules restrict any use of the information to criminally investigate or prosecute any alcohol or drug abuse patient.[facility]In the event this information is protected by the Federal Confidentiality of Alcohol and Drug Abuse Patient Records regulations: The Federal rules restrict any use of the information to criminally investigate or prosecute any alcohol or drug abuse patient.[facility]In the event this information is protected by the Federal Confidentiality of Alcohol and Drug Abuse Patient Records regulations: The Federal rules restrict any use of the information to criminally investigate or prosecute any alcohol or drug abuse patient.[facility]In the event this information is protected by the Federal Confidentiality of Alcohol and Drug Abuse Patient Records regulations: The Federal rules restrict any use of the information to criminally investigate or prosecute any alcohol or drug abuse patient.[facility]In the event this information is protected by the Federal Confidentiality of Alcohol and Drug Abuse Patient Records regulations: The Federal rules restrict any use of the information to criminally investigate or prosecute any alcohol or drug abuse patient.[facility]In the event this information is protected by the Federal Confidentiality of Alcohol and Drug Abuse Patient Records regulations: The Federal rules restrict any use of the information to criminally investigate or prosecute any alcohol or drug abuse patient.[facility]In the event this information is protected by the Federal Confidentiality of Alcohol and Drug Abuse Patient Records regulations: The Federal rules restrict any use of the information to criminally investigate or prosecute any alcohol or drug abuse patient.[facility]In the event this information is protected by the Federal Confidentiality of Alcohol and Drug Abuse Patient Records regulations: The Federal rules restrict any use of the information to criminally investigate or prosecute any alcohol or drug abuse patient.[facility]In the event this information is protected by the Federal Confidentiality of Alcohol and Drug Abuse Patient Records regulations: The Federal rules restrict any use of the information to criminally investigate or prosecute any alcohol or drug abuse patient.[facility] WestIn the event this information is protected by the Federal Confidentiality of Alcohol and Drug Abuse Patient Records regulations: The Federal rules restrict any use of the information to criminally investigate or prosecute any alcohol or drug abuse patient.[facility]In the event this information is protected by the Federal Confidentiality of Alcohol and Drug Abuse Patient Records regulations: The Federal rules restrict any use of the information to criminally investigate or prosecute any alcohol or drug abuse patient.[facility]In the event this information is protected by the Federal Confidentiality of Alcohol and Drug Abuse Patient Records regulations: The Federal rules restrict any use of the information to criminally investigate or prosecute any alcohol or drug abuse patient.[facility] WestIn the event this information is protected by the Federal Confidentiality of Alcohol and Drug Abuse Patient Records regulations: The Federal rules restrict any use of the information to criminally investigate or prosecute any alcohol or drug abuse patient.[facility] WestIn the event this information is protected by the Federal Confidentiality of Alcohol and Drug Abuse Patient Records regulations: The Federal rules restrict any use of the information to criminally investigate or prosecute any alcohol or drug abuse patient.[facility]In the event this information is protected by the Federal Confidentiality of Alcohol and Drug Abuse Patient Records regulations: The Federal rules restrict any use of the information to criminally investigate or prosecute any alcohol or drug abuse patient.[facility] WestIn the event this information is protected by the Federal Confidentiality of Alcohol and Drug Abuse Patient Records regulations: The Federal rules restrict any use of the information to criminally investigate or prosecute any alcohol or drug abuse patient.[facility] WestIn the event this information is protected by the Federal Confidentiality of Alcohol and Drug Abuse Patient Records regulations: The Federal rules restrict any use of the information to criminally investigate or prosecute any alcohol or drug abuse patient.[facility] WestIn the event this information is protected by the Federal Confidentiality of Alcohol and Drug Abuse Patient Records regulations: The Federal rules restrict any use of the information to criminally investigate or prosecute any alcohol or drug abuse patient.[facility] WestIn the event this information is protected by the Federal Confidentiality of Alcohol and Drug Abuse Patient Records regulations: The Federal rules restrict any use of the information to criminally investigate or prosecute any alcohol or drug abuse patient.[facility] WestIn the event this information is protected by the Federal Confidentiality of Alcohol and Drug Abuse Patient Records regulations: The Federal rules restrict any use of the information to criminally investigate or prosecute any alcohol or drug abuse patient.[facility] WestIn the event this information is protected by the Federal Confidentiality of Alcohol and Drug Abuse Patient Records regulations: The Federal rules restrict any use of the information to criminally investigate or prosecute any alcohol or drug abuse patient.[facility]In the event this information is protected by the Federal Confidentiality of Alcohol and Drug Abuse Patient Records regulations: The Federal rules restrict any use of the information to criminally investigate or prosecute any alcohol or drug abuse patient.[facility] WestIn the event this information is protected by the Federal Confidentiality of Alcohol and Drug Abuse Patient Records regulations: The Federal rules restrict any use of the information to criminally investigate or prosecute any alcohol or drug abuse patient.[facility] WestIn the event this information is protected by the Federal Confidentiality of Alcohol and Drug Abuse Patient Records regulations: The Federal rules restrict any use of the information to criminally investigate or prosecute any alcohol or drug abuse patient.[facility]In the event this information is protected by the Federal Confidentiality of Alcohol and Drug Abuse Patient Records regulations: The Federal rules restrict any use of the information to criminally investigate or prosecute any alcohol or drug abuse patient.[facility] WestIn the event this information is protected by the Federal Confidentiality of Alcohol and Drug Abuse Patient Records regulations: The Federal rules restrict any use of the information to criminally investigate or prosecute any alcohol or drug abuse patient.[facility] WestIn the event this information is protected by the Federal Confidentiality of Alcohol and Drug Abuse Patient Records regulations: The Federal rules restrict any use of the information to criminally investigate or prosecute any alcohol or drug abuse patient.[facility]In the event this information is protected by the Federal Confidentiality of Alcohol and Drug Abuse Patient Records regulations: The Federal rules restrict any use of the information to criminally investigate or prosecute any alcohol or drug abuse patient.[facility]In the event this information is protected by the Federal Confidentiality of Alcohol and Drug Abuse Patient Records regulations: The Federal rules restrict any use of the information to criminally investigate or prosecute any alcohol or drug abuse patient.[facility] WestIn the event this information is protected by the Federal Confidentiality of Alcohol and Drug Abuse Patient Records regulations: The Federal rules restrict any use of the information to criminally investigate or prosecute any alcohol or drug abuse patient.[facility]In the event this information is protected by the Federal Confidentiality of Alcohol and Drug Abuse Patient Records regulations: The Federal rules restrict any use of the information to criminally investigate or prosecute any alcohol or drug abuse patient.[facility] WestIn the event this information is protected by the Federal Confidentiality of Alcohol and Drug Abuse Patient Records regulations: The Federal rules restrict any use of the information to criminally investigate or prosecute any alcohol or drug abuse patient.[facility] WestIn the event this information is protected by the Federal Confidentiality of Alcohol and Drug Abuse Patient Records regulations: The Federal rules restrict any use of the information to criminally investigate or prosecute any alcohol or drug abuse patient.[facility]In the event this information is protected by the Federal Confidentiality of Alcohol and Drug Abuse Patient Records regulations: The Federal rules restrict any use of the information to criminally investigate or prosecute any alcohol or drug abuse patient.[facility]In the event this information is protected by the Federal Confidentiality of Alcohol and Drug Abuse Patient Records regulations: The Federal rules restrict any use of the information to criminally investigate or prosecute any alcohol or drug abuse patient.[facility]In the event this information is protected by the Federal Confidentiality of Alcohol and Drug Abuse Patient Records regulations: The Federal rules restrict any use of the information to criminally investigate or prosecute any alcohol or drug abuse patient.[facility] WestIn the event this information is protected by the Federal Confidentiality of Alcohol and Drug Abuse Patient Records regulations: The Federal rules restrict any use of the information to criminally investigate or prosecute any alcohol or drug abuse patient.[facility] WestIn the event this information is protected by the Federal Confidentiality of Alcohol and Drug Abuse Patient Records regulations: The Federal rules restrict any use of the information to criminally investigate or prosecute any alcohol or drug abuse patient.[facility]In the event this information is protected by the Federal Confidentiality of Alcohol and Drug Abuse Patient Records regulations: The Federal rules restrict any use of the information to criminally investigate or prosecute any alcohol or drug abuse patient.[facility]In the event this information is protected by the Federal Confidentiality of Alcohol and Drug Abuse Patient Records regulations: The Federal rules restrict any use of the information to criminally investigate or prosecute any alcohol or drug abuse patient.[facility]In the event this information is protected by the Federal Confidentiality of Alcohol and Drug Abuse Patient Records regulations: The Federal rules restrict any use of the information to criminally investigate or prosecute any alcohol or drug abuse patient.[facility]In the event this information is protected by the Federal Confidentiality of Alcohol and Drug Abuse Patient Records regulations: The Federal rules restrict any use of the information to criminally investigate or prosecute any alcohol or drug abuse patient.[facility]In the event this information is protected by the Federal Confidentiality of Alcohol and Drug Abuse Patient Records regulations: The Federal rules restrict any use of the information to criminally investigate or prosecute any alcohol or drug abuse patient.[facility]In the event this information is protected by the Federal Confidentiality of Alcohol and Drug Abuse Patient Records regulations: The Federal rules restrict any use of the information to criminally investigate or prosecute any alcohol or drug abuse patient.[facility] WestIn the event this information is protected by the Federal Confidentiality of Alcohol and Drug Abuse Patient Records regulations: The Federal rules restrict any use of the information to criminally investigate or prosecute any alcohol or drug abuse patient.[facility]In the event this information is protected by the Federal Confidentiality of Alcohol and Drug Abuse Patient Records regulations: The Federal rules restrict any use of the information to criminally investigate or prosecute any alcohol or drug abuse patient.[facility]In the event this information is protected by the Federal Confidentiality of Alcohol and Drug Abuse Patient Records regulations: The Federal rules restrict any use of the information to criminally investigate or prosecute any alcohol or drug abuse patient.[facility]In the event this information is protected by the Federal Confidentiality of Alcohol and Drug Abuse Patient Records regulations: The Federal rules restrict any use of the information to criminally investigate or prosecute any alcohol or drug abuse patient.[facility]In the event this information is protected by the Federal Confidentiality of Alcohol and Drug Abuse Patient Records regulations: The Federal rules restrict any use of the information to criminally investigate or prosecute any alcohol or drug abuse patient.[facility]In the event this information is protected by the Federal Confidentiality of Alcohol and Drug Abuse Patient Records regulations: The Federal rules restrict any use of the information to criminally investigate or prosecute any alcohol or drug abuse patient.[facility]In the event this information is protected by the Federal Confidentiality of Alcohol and Drug Abuse Patient Records regulations: The Federal rules restrict any use of the information to criminally investigate or prosecute any alcohol or drug abuse patient.[facility]In the event this information is protected by the Federal Confidentiality of Alcohol and Drug Abuse Patient Records regulations: The Federal rules restrict any use of the information to criminally investigate or prosecute any alcohol or drug abuse patient.[facility]In the event this information is protected by the Federal Confidentiality of Alcohol and Drug Abuse Patient Records regulations: The Federal rules restrict any use of the information to criminally investigate or prosecute any alcohol or drug abuse patient.[facility]In the event this information is protected by the Federal Confidentiality of Alcohol and Drug Abuse Patient Records regulations: The Federal rules restrict any use of the information to criminally investigate or prosecute any alcohol or drug abuse patient.[facility]In the event this information is protected by the Federal Confidentiality of Alcohol and Drug Abuse Patient Records regulations: The Federal rules restrict any use of the information to criminally investigate or prosecute any alcohol or drug abuse patient.[facility]In the event this information is protected by the Federal Confidentiality of Alcohol and Drug Abuse Patient Records regulations: The Federal rules restrict any use of the information to criminally investigate or prosecute any alcohol or drug abuse patient.[facility]In the event this information is protected by the Federal Confidentiality of Alcohol and Drug Abuse Patient Records regulations: The Federal rules restrict any use of the information to criminally investigate or prosecute any alcohol or drug abuse patient.[facility]In the event this information is protected by the Federal Confidentiality of Alcohol and Drug Abuse Patient Records regulations: The Federal rules restrict any use of the information to criminally investigate or prosecute any alcohol or drug abuse patient.[facility]In the event this information is protected by the Federal Confidentiality of Alcohol and Drug Abuse Patient Records regulations: The Federal rules restrict any use of the information to criminally investigate or prosecute any alcohol or drug abuse patient.[facility]In the event this information is protected by the Federal Confidentiality of Alcohol and Drug Abuse Patient Records regulations: The Federal rules restrict any use of the information to criminally investigate or prosecute any alcohol or drug abuse patient.[facility]In the event this information is protected by the Federal Confidentiality of Alcohol and Drug Abuse Patient Records regulations: The Federal rules restrict any use of the information to criminally investigate or prosecute any alcohol or drug abuse patient.[facility]In the event this information is protected by the Federal Confidentiality of Alcohol and Drug Abuse Patient Records regulations: The Federal rules restrict any use of the information to criminally investigate or prosecute any alcohol or drug abuse patient.[facility]In the event this information is protected by the Federal Confidentiality of Alcohol and Drug Abuse Patient Records regulations: The Federal rules restrict any use of the information to criminally investigate or prosecute any alcohol or drug abuse patient.[facility]In the event this information is protected by the Federal Confidentiality of Alcohol and Drug Abuse Patient Records regulations: The Federal rules restrict any use of the information to criminally investigate or prosecute any alcohol or drug abuse patient.[facility]In the event this information is protected by the Federal Confidentiality of Alcohol and Drug Abuse Patient Records regulations: The Federal rules restrict any use of the information to criminally investigate or prosecute any alcohol or drug abuse patient.[facility]In the event this information is protected by the Federal Confidentiality of Alcohol and Drug Abuse Patient Records regulations: The Federal rules restrict any use of the information to criminally investigate or prosecute any alcohol or drug abuse patient.[facility]In the event this information is protected by the Federal Confidentiality of Alcohol and Drug Abuse Patient Records regulations: The Federal rules restrict any use of the information to criminally investigate or prosecute any alcohol or drug abuse patient.[facility]In the event this information is protected by the Federal Confidentiality of Alcohol and Drug Abuse Patient Records regulations: The Federal rules restrict any use of the information to criminally investigate or prosecute any alcohol or drug abuse patient.[facility]In the event this information is protected by the Federal Confidentiality of Alcohol and Drug Abuse Patient Records regulations: The Federal rules restrict any use of the information to criminally investigate or prosecute any alcohol or drug abuse patient.[facility]In the event this information is protected by the Federal Confidentiality of Alcohol and Drug Abuse Patient Records regulations: The Federal rules restrict any use of the information to criminally investigate or prosecute any alcohol or drug abuse patient.[facility] WestIn the event this information is protected by the Federal Confidentiality of Alcohol and Drug Abuse Patient Records regulations: The Federal rules restrict any use of the information to criminally investigate or prosecute any alcohol or drug abuse patient.[facility]In the event this information is protected by the Federal Confidentiality of Alcohol and Drug Abuse Patient Records regulations: The Federal rules restrict any use of the information to criminally investigate or prosecute any alcohol or drug abuse patient.[facility]In the event this information is protected by the Federal Confidentiality of Alcohol and Drug Abuse Patient Records regulations: The Federal rules restrict any use of the information to criminally investigate or prosecute any alcohol or drug abuse patient.[facility]In the event this information is protected by the Federal Confidentiality of Alcohol and Drug Abuse Patient Records regulations: The Federal rules restrict any use of the information to criminally investigate or prosecute any alcohol or drug abuse patient.[facility]In the event this information is protected by the Federal Confidentiality of Alcohol and Drug Abuse Patient Records regulations: The Federal rules restrict any use of the information to criminally investigate or prosecute any alcohol or drug abuse patient.[facility]In the event this information is protected by the Federal Confidentiality of Alcohol and Drug Abuse Patient Records regulations: The Federal rules restrict any use of the information to criminally investigate or prosecute any alcohol or drug abuse patient.[facility]In the event this information is protected by the Federal Confidentiality of Alcohol and Drug Abuse Patient Records regulations: The Federal rules restrict any use of the information to criminally investigate or prosecute any alcohol or drug abuse patient.[facility]In the event this information is protected by the Federal Confidentiality of Alcohol and Drug Abuse Patient Records regulations: The Federal rules restrict any use of the information to criminally investigate or prosecute any alcohol or drug abuse patient.[facility]In the event this information is protected by the Federal Confidentiality of Alcohol and Drug Abuse Patient Records regulations: The Federal rules restrict any use of the information to criminally investigate or prosecute any alcohol or drug abuse patient.[facility]In the event this information is protected by the Federal Confidentiality of Alcohol and Drug Abuse Patient Records regulations: The Federal rules restrict any use of the information to criminally investigate or prosecute any alcohol or drug abuse patient.[facility]In the event this information is protected by the Federal Confidentiality of Alcohol and Drug Abuse Patient Records regulations: The Federal rules restrict any use of the information to criminally investigate or prosecute any alcohol or drug abuse patient.[facility]In the event this information is protected by the Federal Confidentiality of Alcohol and Drug Abuse Patient Records regulations: The Federal rules restrict any use of the information to criminally investigate or prosecute any alcohol or drug abuse patient.[facility]In the event this information is protected by the Federal Confidentiality of Alcohol and Drug Abuse Patient Records regulations: The Federal rules restrict any use of the information to criminally investigate or prosecute any alcohol or drug abuse patient.[facility]In the event this information is protected by the Federal Confidentiality of Alcohol and Drug Abuse Patient Records regulations: The Federal rules restrict any use of the information to criminally investigate or prosecute any alcohol or drug abuse patient.[facility]In the event this information is protected by the Federal Confidentiality of Alcohol and Drug Abuse Patient Records regulations: The Federal rules restrict any use of the information to criminally investigate or prosecute any alcohol or drug abuse patient.[facility]In the event this information is protected by the Federal Confidentiality of Alcohol and Drug Abuse Patient Records regulations: The Federal rules restrict any use of the information to criminally investigate or prosecute any alcohol or drug abuse patient.[facility]In the event this information is protected by the Federal Confidentiality of Alcohol and Drug Abuse Patient Records regulations: The Federal rules restrict any use of the information to criminally investigate or prosecute any alcohol or drug abuse patient.[facility]In the event this information is protected by the Federal Confidentiality of Alcohol and Drug Abuse Patient Records regulations: The Federal rules restrict any use of the information to criminally investigate or prosecute any alcohol or drug abuse patient.[facility]In the event this information is protected by the Federal Confidentiality of Alcohol and Drug Abuse Patient Records regulations: The Federal rules restrict any use of the information to criminally investigate or prosecute any alcohol or drug abuse patient.[facility]In the event this information is protected by the Federal Confidentiality of Alcohol and Drug Abuse Patient Records regulations: The Federal rules restrict any use of the information to criminally investigate or prosecute any alcohol or drug abuse patient.[facility]In the event this information is protected by the Federal Confidentiality of Alcohol and Drug Abuse Patient Records regulations: The Federal rules restrict any use of the information to criminally investigate or prosecute any alcohol or drug abuse patient.[facility]In the event this information is protected by the Federal Confidentiality of Alcohol and Drug Abuse Patient Records regulations: The Federal rules restrict any use of the information to criminally investigate or prosecute any alcohol or drug abuse patient.[facility]In the event this information is protected by the Federal Confidentiality of Alcohol and Drug Abuse Patient Records regulations: The Federal rules restrict any use of the information to criminally investigate or prosecute any alcohol or drug abuse patient.[facility] WestIn the event this information is protected by the Federal Confidentiality of Alcohol and Drug Abuse Patient Records regulations: The Federal rules restrict any use of the information to criminally investigate or prosecute any alcohol or drug abuse patient.[facility]In the event this information is protected by the Federal Confidentiality of Alcohol and Drug Abuse Patient Records regulations: The Federal rules restrict any use of the information to criminally investigate or prosecute any alcohol or drug abuse patient.[facility]In the event this information is protected by the Federal Confidentiality of Alcohol and Drug Abuse Patient Records regulations: The Federal rules restrict any use of the information to criminally investigate or prosecute any alcohol or drug abuse patient.[facility] WestIn the event this information is protected by the Federal Confidentiality of Alcohol and Drug Abuse Patient Records regulations: The Federal rules restrict any use of the information to criminally investigate or prosecute any alcohol or drug abuse patient.[facility]In the event this information is protected by the Federal Confidentiality of Alcohol and Drug Abuse Patient Records regulations: The Federal rules restrict any use of the information to criminally investigate or prosecute any alcohol or drug abuse patient.[facility]In the event this information is protected by the Federal Confidentiality of Alcohol and Drug Abuse Patient Records regulations: The Federal rules restrict any use of the information to criminally investigate or prosecute any alcohol or drug abuse patient.[facility]In the event this information is protected by the Federal Confidentiality of Alcohol and Drug Abuse Patient Records regulations: The Federal rules restrict any use of the information to criminally investigate or prosecute any alcohol or drug abuse patient.[facility] WestIn the event this information is protected by the Federal Confidentiality of Alcohol and Drug Abuse Patient Records regulations: The Federal rules restrict any use of the information to criminally investigate or prosecute any alcohol or drug abuse patient.[facility]In the event this information is protected by the Federal Confidentiality of Alcohol and Drug Abuse Patient Records regulations: The Federal rules restrict any use of the information to criminally investigate or prosecute any alcohol or drug abuse patient.[facility]In the event this information is protected by the Federal Confidentiality of Alcohol and Drug Abuse Patient Records regulations: The Federal rules restrict any use of the information to criminally investigate or prosecute any alcohol or drug abuse patient.[facility] WestIn the event this information is protected by the Federal Confidentiality of Alcohol and Drug Abuse Patient Records regulations: The Federal rules restrict any use of the information to criminally investigate or prosecute any alcohol or drug abuse patient.[facility] WestIn the event this information is protected by the Federal Confidentiality of Alcohol and Drug Abuse Patient Records regulations: The Federal rules restrict any use of the information to criminally investigate or prosecute any alcohol or drug abuse patient.[facility] WestIn the event this information is protected by the Federal Confidentiality of Alcohol and Drug Abuse Patient Records regulations: The Federal rules restrict any use of the information to criminally investigate or prosecute any alcohol or drug abuse patient.[facility] WestIn the event this information is protected by the Federal Confidentiality of Alcohol and Drug Abuse Patient Records regulations: The Federal rules restrict any use of the information to criminally investigate or prosecute any alcohol or drug abuse patient.[facility] WestIn the event this information is protected by the Federal Confidentiality of Alcohol and Drug Abuse Patient Records regulations: The Federal rules restrict any use of the information to criminally investigate or prosecute any alcohol or drug abuse patient.[facility] WestIn the event this information is protected by the Federal Confidentiality of Alcohol and Drug Abuse Patient Records regulations: The Federal rules restrict any use of the information to criminally investigate or prosecute any alcohol or drug abuse patient.[facility] WestIn the event this information is protected by the Federal Confidentiality of Alcohol and Drug Abuse Patient Records regulations: The Federal rules restrict any use of the information to criminally investigate or prosecute any alcohol or drug abuse patient.[facility] WestIn the event this information is protected by the Federal Confidentiality of Alcohol and Drug Abuse Patient Records regulations: The Federal rules restrict any use of the information to criminally investigate or prosecute any alcohol or drug abuse patient.[facility] WestIn the event this information is protected by the Federal Confidentiality of Alcohol and Drug Abuse Patient Records regulations: The Federal rules restrict any use of the information to criminally investigate or prosecute any alcohol or drug abuse patient.[facility] WestIn the event this information is protected by the Federal Confidentiality of Alcohol and Drug Abuse Patient Records regulations: The Federal rules restrict any use of the information to criminally investigate or prosecute any alcohol or drug abuse patient.[facility] WestIn the event this information is protected by the Federal Confidentiality of Alcohol and Drug Abuse Patient Records regulations: The Federal rules restrict any use of the information to criminally investigate or prosecute any alcohol or drug abuse patient.[facility] WestIn the event this information is protected by the Federal Confidentiality of Alcohol and Drug Abuse Patient Records regulations: The Federal rules restrict any use of the information to criminally investigate or prosecute any alcohol or drug abuse patient.[facility] WestIn the event this information is protected by the Federal Confidentiality of Alcohol and Drug Abuse Patient Records regulations: The Federal rules restrict any use of the information to criminally investigate or prosecute any alcohol or drug abuse patient.[facility] WestIn the event this information is protected by the Federal Confidentiality of Alcohol and Drug Abuse Patient Records regulations: The Federal rules restrict any use of the information to criminally investigate or prosecute any alcohol or drug abuse patient.[facility] WestIn the event this information is protected by the Federal Confidentiality of Alcohol and Drug Abuse Patient Records regulations: The Federal rules restrict any use of the information to criminally investigate or prosecute any alcohol or drug abuse patient.[facility] WestIn the event this information is protected by the Federal Confidentiality of Alcohol and Drug Abuse Patient Records regulations: The Federal rules restrict any use of the information to criminally investigate or prosecute any alcohol or drug abuse patient.[facility] WestIn the event this information is protected by the Federal Confidentiality of Alcohol and Drug Abuse Patient Records regulations: The Federal rules restrict any use of the information to criminally investigate or prosecute any alcohol or drug abuse patient.[facility] WestIn the event this information is protected by the Federal Confidentiality of Alcohol and Drug Abuse Patient Records regulations: The Federal rules restrict any use of the information to criminally investigate or prosecute any alcohol or drug abuse patient.[facility] WestIn the event this information is protected by the Federal Confidentiality of Alcohol and Drug Abuse Patient Records regulations: The Federal rules restrict any use of the information to criminally investigate or prosecute any alcohol or drug abuse patient.[facility] Reason for Visit (unrecogniz ed section and [...] 6 month follow up Reason Comments Forms [facility] Verbal Order for half-way 11/30/21 Reason Comments Results Reason Onset Date Comments Refill Request 01/04/2022 Reason Comments Electronic Communication Forms Reason Comments Appointment Reason Comments Pressure sore Reason Comments Results Consult Reason Comments 1 week follow up Reason Comments SOB Reason Onset Date Comments Refill Request 02/28/2022 Reason Onset Date Comments Refill Request 03/05/2022 Reason Comments Forms [facility] Prescr iption - Detailed Written Order Reason Comments Patient Question Reason Comments Electronic Communication Orders Reason Comments CARD New Patient Consult Moved from [facility] inaz 03/2020EK 02/08/22ECH 02/20/22Intermittent chest pressure at night - relieved within 2 mins after taking Nitro. Reason Comments Reminder Call Reason Comments Follow Up Stress test resultsD OE Reason Comments Procedure [place] [facility] Reason Comments Patient Question [facility] form [facility] Reason Comments Follow Up F/U - attempt made. No answer. Reason Comments Verbal orders Specialty Diagnoses / Procedures Referred By Kita t Referred To Contact CT IMAGING Diagnoses SOB (shortness of breath) on exertion History of recent hospitalization Positive D dimer Procedures CT CHEST W IVCON PE DIAGNOSTIC COMPUTED TOMOGRAPHY THORAX W/CONTRAST Alma Gill, WINDOWS SECURITY ENGINEER.SPECIALTY THERAPIST [address] [place] [address] Ct Imaging Referral ID Status Reason Start Date Expiration Date V isits Requested Visits Authorized [id number] Closed Auto-Generate d Referral 05/13/2022 05/12/2023 1 [...] DILATOR IF OBSTRUCTED BRNCDILAT RSPSE SPMTRY PRE&POST-BRNCDILAT ADMFrancisco Wilkerson MD [address] [place] [address] [facility] [place] [address] [place] [address] Referral ID Status Reason Start Date Expiration Date V isits Requested Visits Authorized [id number] Closed Auto-Generate d Referral 09/17/2022 10/17/2023 1 1 Reason Comments New Patient LINDA Reason Comments Results Specialty Diagnoses / Procedures Referred By Contac t Referred To Contact CT IMAGING Diagnoses Lung nodules Procedures CT CHEST WO IVCON DIAGNOSTIC COMPUTED TOMOGRAPHY THORAX W/O CNTRST Francisco Patel MD [address] [place] [address] Ct Imaging Referral ID Status Reason Start Date Expiration Date V isits Requested Visits Authorized [id number] Closed Auto-Generate d Referral 12/10/2022 12/20/2023 1 1 Reason Onset Date Comments Refill Request 12/15/2022 Reason Comments Forms Reason Onset Date Comments Refill Request 01/14/2023 Reason Comments Nodule 2 month follow-up destiny ng nodules Reason Onset Date Comments Refill Request 12/12/2022 Reason Comments Established 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 Orders Reason Onset Date [...] Onset Date Comments Transition Of Care 01/17/2024 [facility] 01/10-01/16/24 TCM Reason Comments Orders [facility] [...] Lilian Rodríguez PA-C [address] [place] [address] Ct Imaging [facility] Referral ID Status Reason Start Date Expiration Date V isits Requested Visits Authorized [id number] Closed Auto-Generate d Referral 03/09/2024 02/27/2025 1 1 Reason Onset Date Comments Refill Request 03/09/2024 Specialty Diagnoses / Procedures Referred By Contac t [facility] Diagnoses ILD (interstitial lung disease) (HCC) Procedures LUNG DIFFUSION CAPACITY (DLCO) DIFFUSING CAPACITY Francisco Patel MD [address] [place] [address] [facility] [place] [address] [place] [address] Referral ID Status Reason Start Date Expiration Date V isits Requested Visits Authorized [id number] Closed Auto-Generate d Referral 09/09/2023 10/08/2024 1 1 Specialty Diagnoses / Procedures Referred By Contac t Ref[facility] Diagnoses ILD (interstitial lung disease) (HCC) Procedures LUNG VOLUMES Francisco Patel MD [address] [place] [address] [facility] [place] [address] [place] [address] Referral ID Status Reason Start Date Expiration Date V isits Requested Visits Authorized [id number] Closed Auto-Generate d Referral 09/09/2023 10/08/2024 1 1 Specialty Diagnoses / Procedures Referred By Contac t Ref[facility] Diagnoses Interstitial pulmonary disease (HCC) Procedures OXIMETRY WITH AMBULATION NONINVASIVE EAR/PULSE OXIMETRY Lilian Wayne PA-C [address] [place] [address] [facility] [place] [address] [place] [address] Referral ID Status Reason Start Date Expiration Date V isits Requested Visits Authorized [id number] Closed Auto-Generate d Referral 01/29/2024 02/27/2025 1 1 Reason Comments Nodule COPD Follow Up Reason Comments Electronic Communication Orders Order: [id number] Reason Onset Date Comments Transition Of Care [...] PT orders Reason Comments Electronic Communication ORDER: [id number] Forms Reason Onset Date Comments Transition Of [...] / PULMONARY MEDICINE Diagnoses ILD Procedures [facility] Mitchell Caruso, WINDOWS SECURITY ENGINEER.SPECIALTY THERAPIST [address] [facility] [address] [place] [address] Tru Simon MD [address] [place] [address] [place] [id number] Referral ID Status Reason Start Date Expiration Date V isits Requested Visits Authorized [id number] New Request 04/22/2024 07/21/2024 1 1 Reason Onset Date Comments Refill Request 04/25/2024 Reason Comments Medication Authorization Specialty Diagnoses / Procedures Referred By Contac t Referred [facility] Diagnoses Chronic respiratory failure with hypoxia (HCC) Procedures SPIROMETRY BASELINE ONLY SPMTRY W/VC EXPIRATORY ANGELA W/WO MXML VOL VNTJ Tru Simon MD [address] [place] [address] [place] [address] [facility] [address] [place] [address] Referral ID Status Reason Start Date Expiration Date V isits Requested Visits Authorized [id number] Closed Auto-Generate d Referral 04/22/2024 05/22/2025 1 1 Specialty Diagnoses / Procedures Referred By Contac t Ref[facility] Diagnoses Chronic respiratory failure with hypoxia (HCC) 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) Hypersensitivity pneumonitis (HCC) Procedures LUNG DIFFUSION CAPACITY (DLCO) DIFFUSING CAPACITY Tru Simon MD [address] [address] [facility] [place] [address] [place], [place] [id number] Referral ID Status Reason Start Date Expiration Date V isits Requested Visits Authorized [id number] Closed Auto-Generate d Referral 04/22/2024 05/22/2025 1 [...] Comments Oxygen Reason Comments Home Health Form [facility] Reason Onset Date Comments Refill Request 08/10/2024 [...] if cast can be taken of by [facility] Reason Onset Date Comments Refill Request 10/26/2024 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 Referred By [facility] Referred To Contact [facility] [place] Diagnoses Hypersensitivity pneumonitis (HCC) Chronic respiratory failure with hypoxia (HCC) 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) Acute hypoxic respiratory failure (HCC) Chronic obstructive pulmonary disease with acute exacerbation (HCC) Procedures LUNG DIFFUSION CAPACITY (DLCO) DIFFUSING CAPACITY Tru Simon MD [address] [address] Phone: tel: fax: [address] [phone] Referral ID Status Reason Start Date Expiration Date V isits Requested Visits Authorized [id number] Closed Auto-Generate d Referral 06/24/2024 07/24/2025 1 1 Specialty Diagnoses / Procedures Referred By [facility] Referred To Contact [facility] [place] Diagnoses Hypersensitivity pneumonitis (HCC) Chronic respiratory failure with hypoxia (HCC) 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) Acute hypoxic respiratory failure (HCC) Chronic obstructive pulmonary disease with acute exacerbation (HCC) Procedures SPIROMETRY BASELINE ONLY SPMTRY W/VC EXPIRATORY ANGELA W/WO MXML VOL VNTJ Tru Simon MD [address] [address] Phone: tel: fax: [address] [phone] Referral ID Status Reason Start Date Expiration Date V isits Requested Visits Authorized [id number] Closed Auto-Generate d Referral 06/24/2024 07/24/2025 1 1 Reason Comments COPD Reason Onset Date Comments Results 09/21/2024 Reason Onset Date Comments Transition Of Care 11/23/2024 TCM f/u Reason Comments Consult Care Teams (unrecognized sec tion and content) Psychology Associate Relationship Specialty Start Date End Date Alma Gill, WINDOWS SECURITY ENGINEER.SPECIALTY THERAPIST [address] [facility] [place] [address] PCP - General Family Practice 08/15/21 Psychology Associate Relationship Specialty Start Date End Date Alma Gill, WINDOWS SECURITY ENGINEER.SPECIALTY THERAPIST [address] [place] [place] [address] PCP - General Family Practice 08/15/21 Psychology Associate Relationship Specialty Start Date End Date Alma Gill, WINDOWS SECURITY ENGINEER.SPECIALTY THERAPIST [address] [place] [address] PCP - General Family Practice 08/15/21 Psychology Associate Relationship Specialty Start Date End Date Alma Gill, WINDOWS SECURITY ENGINEER.SPECIALTY THERAPIST [address] [place] [address] PCP - General Family Practice 08/15/21 Psychology Associate Relationship Specialty Start Date End Date Alma Gill, WINDOWS SECURITY ENGINEER.SPECIALTY THERAPIST [address] [place] [address] PCP - General Family Practice 08/15/21 Psychology Associate Relationship Specialty Start Date End Date Alma Gill, WINDOWS SECURITY ENGINEER.SPECIALTY THERAPIST [address] [place] [address] PCP - General Family Practice 08/15/21 Psychology Associate Relationship Specialty Start Date End Date Alma Gill, WINDOWS SECURITY ENGINEER.SPECIALTY THERAPIST [address] [place] [address] PCP - General Family Practice 08/15/21 Psychology Associate Relationship Specialty Start Date End Date Alma Gill, WINDOWS SECURITY ENGINEER.SPECIALTY THERAPIST [address] [place] [address] PCP - General Family Practice 08/15/21 Psychology Associate Relationship Specialty Start Date End Date Alma Gill, WINDOWS SECURITY ENGINEER.SPECIALTY THERAPIST [address] [place] [address] PCP - General Family Practice 08/15/21 Psychology Associate Relationship Specialty Start Date End Date Alma Gill, WINDOWS SECURITY ENGINEER.SPECIALTY THERAPIST [address] [place] [address] PCP - General Family Practice 08/15/21 Psychology Associate Relationship Specialty Start Date End Date Alma Gill, WINDOWS SECURITY ENGINEER.SPECIALTY THERAPIST [address] [place] [address] PCP - General Family Practice 08/15/21 Psychology Associate Relationship Specialty Start Date End Date Alma Gill, WINDOWS SECURITY ENGINEER.SPECIALTY THERAPIST [address] [place] [address] PCP - General Family Practice 08/15/21 Psychology Associate Relationship Specialty Start Date End Date Alma Gill, WINDOWS SECURITY ENGINEER.SPECIALTY THERAPIST [address] [place] [address] PCP - General Family Practice 08/15/21 Psychology Associate Relationship Specialty Start Date End Date Alma Gill, WINDOWS SECURITY ENGINEER.SPECIALTY THERAPIST [address] [place] [address] PCP - General Family Practice 08/15/21 Psychology Associate Relationship Specialty Start Date End Date Alma Gill, WINDOWS SECURITY ENGINEER.SPECIALTY THERAPIST [address] [place] [address] PCP - General Family Medicine 08/15/21 Psychology Associate Relationship Specialty Start Date End Date Alma Gill, WINDOWS SECURITY ENGINEER.SPECIALTY THERAPIST [address] [place] [address] PCP - General Family Medicine 08/15/21 Psychology Associate Relationship Specialty Start Date End Date Alma Gill, WINDOWS SECURITY ENGINEER.SPECIALTY THERAPIST [address] [place] [address] PCP - General Family Medicine 08/15/21 Psychology Associate Relationship Specialty Start Date End Date Alma Gill, WINDOWS SECURITY ENGINEER.SPECIALTY THERAPIST [address] [place] [address] PCP - General Family Medicine 08/15/21 Psychology Associate Relationship Specialty Start Date End Date Alma Gill, WINDOWS SECURITY ENGINEER.SPECIALTY THERAPIST [address] [place] [address] PCP - General Family Medicine 08/15/21 Psychology Associate Relationship Specialty Start Date End Date Alma Gill, WINDOWS SECURITY ENGINEER.SPECIALTY THERAPIST [address] [place] [address] PCP - General Family Medicine 08/15/21 Psychology Associate Relationship Specialty Start Date End Date Alma Gill, WINDOWS SECURITY ENGINEER.SPECIALTY THERAPIST [address] [place] [address] PCP - General Family Medicine 08/15/21 Psychology Associate Relationship Specialty Start Date End Date Alma Gill, WINDOWS SECURITY ENGINEER.SPECIALTY THERAPIST [address] [place] [address] PCP - General Family Medicine 08/15/21 Psychology Associate Relationship Specialty Start Date End Date Alma Gill, WINDOWS SECURITY ENGINEER.SPECIALTY THERAPIST [address] [place] [address] PCP - General Family Medicine 08/15/21 Psychology Associate Relationship Specialty Start Date End Date Alma Gill, WINDOWS SECURITY ENGINEER.SPECIALTY THERAPIST [address] [place] [address] PCP - General Family Medicine 08/15/21 Psychology Associate Relationship Specialty Start Date End Date Alma Gill, WINDOWS SECURITY ENGINEER.SPECIALTY THERAPIST [address] [place] [address] PCP - General Family Medicine 08/15/21 Psychology Associate Relationship Specialty Start Date End Date Alma Gill, WINDOWS SECURITY ENGINEER.SPECIALTY THERAPIST [address] [place] [address] PCP - General Family Medicine 08/15/21 Psychology Associate Relationship Specialty Start Date End Date Alma Gill, WINDOWS SECURITY ENGINEER.SPECIALTY THERAPIST [address] [place] [address] PCP - General Family Medicine 08/15/21 Psychology Associate Relationship Specialty Start Date End Date Alma Gill, WINDOWS SECURITY ENGINEER.SPECIALTY THERAPIST [address] [place] [address] PCP - General Family Medicine 08/15/21 Psychology Associate Relationship Specialty Start Date End Date Alma Gill, WINDOWS SECURITY ENGINEER.SPECIALTY THERAPIST [address] [place] [address] PCP - General Family Medicine 08/15/21 Psychology Associate Relationship Specialty Start Date End Date Alma Gill, WINDOWS SECURITY ENGINEER.SPECIALTY THERAPIST [address] [place] [address] PCP - General Family Medicine 08/15/21 Psychology Associate Relationship Specialty Start Date End Date Alma Gill, WINDOWS SECURITY ENGINEER.SPECIALTY THERAPIST [address] [place] [address] PCP - General Family Medicine 08/15/21 Dedrick Krause DO [address] [place] [address] Cardiology 06/04/22 Psychology Associate Relationship Specialty Start Date End Date Alma Gill, WINDOWS SECURITY ENGINEER.SPECIALTY THERAPIST [address] [place] [address] PCP - General Family Medicine 08/15/21 Dedrick Krause DO [address] [place] [address] Cardiology 06/04/22 Psychology Associate Relationship Specialty Start Date End Date Alma Gill, WINDOWS SECURITY ENGINEER.SPECIALTY THERAPIST [address] [place] [address] PCP - General Family Medicine 08/15/21 Dedrick Krause, [facility] [place] [address] Cardiology 06/04/22 Psychology Associate Relationship Specialty Start Date End Date Alma Gill, WINDOWS SECURITY ENGINEER.SPECIALTY THERAPIST [address] [place] [address] PCP - General Family Medicine 08/15/21 Dedrick Krause, [facility] [place] [address] Cardiology 06/04/22 Psychology Associate Relationship Specialty Start Date End Date Alma Gill, WINDOWS SECURITY ENGINEER.SPECIALTY THERAPIST [address] [place] [address] PCP - General Family Medicine 08/15/21 Dedrick Krause, [facility] [place] [address] Cardiology 06/04/22 Psychology Associate Relationship Specialty Start Date End Date Alma Gill, WINDOWS SECURITY ENGINEER.SPECIALTY THERAPIST [address] [place] [address] PCP - General Family Medicine 08/15/21 Dedrick Krause, [address] [place] [address] Cardiology 06/04/22 Psychology Associate Relationship Specialty Start Date End Date Alma Gill, WINDOWS SECURITY ENGINEER.SPECIALTY THERAPIST [address] [place] [address] PCP - General Family Medicine 08/15/21 Dedrick Krause, [facility] [place] [address] Cardiology 06/04/22 Psychology Associate Relationship Specialty Start Date End Date Alma Gill, WINDOWS SECURITY ENGINEER.SPECIALTY THERAPIST [address] [place] [address] PCP - General Family Medicine 08/15/21 Dedrick Krause, [place] [address] Cardiology 06/04/22 Psychology Associate Relationship Specialty Start Date End Date Alma Gill, WINDOWS SECURITY ENGINEER.SPECIALTY THERAPIST [address] [place] [address] PCP - General Family Medicine 08/15/21 Dedrick Krause, [place] [address] Cardiology 06/04/22 Psychology Associate Relationship Specialty Start Date End Date Alma Gill, WINDOWS SECURITY ENGINEER.SPECIALTY THERAPIST [address] [place] [address] PCP - General Family Medicine 08/15/21 Dedrick Krause, [place] [address] Cardiology 06/04/22 Psychology Associate Relationship Specialty Start Date End Date Alma Gill, WINDOWS SECURITY ENGINEER.SPECIALTY THERAPIST [address] [place] [address] PCP - General Family Medicine 08/15/21 Dedrick Krause, [facility] [place] [address] Cardiology 06/04/22 Psychology Associate Relationship Specialty Start Date End Date Alma Gill, WINDOWS SECURITY ENGINEER.SPECIALTY THERAPIST [address] [place] [address] PCP - General Family Medicine 08/15/21 Dedrick Krause, [place] [address] Cardiology 06/04/22 Psychology Associate Relationship Specialty Start Date End Date Alma Gill, WINDOWS SECURITY ENGINEER.SPECIALTY THERAPIST [address] [place] [address] PCP - General Family Medicine 08/15/21 Dedrick Krause [place] [address] Cardiology 06/04/22 Psychology Associate Relationship Specialty Start Date End Date Alma Gill, WINDOWS SECURITY ENGINEER.SPECIALTY THERAPIST [address] [place] [address] PCP - General Family Medicine 08/15/21 Dedrick Krause [place] [address] Cardiology 06/04/22 Psychology Associate Relationship Specialty Start Date End Date Alma Glil, WINDOWS SECURITY ENGINEER.SPECIALTY THERAPIST [address] [place] [address] PCP - General Family Medicine 08/15/21 Dedrick Krause [place] [address] Cardiology 06/04/22 Psychology Associate Relationship Specialty Start Date End Date Alma Gill, WINDOWS SECURITY ENGINEER.SPECIALTY THERAPIST [address] [place] [address] PCP - General Family Medicine 08/15/21 Dedrick Krause [facility] [place] [address] Cardiology 06/04/22 Psychology Associate Relationship Specialty Start Date End Date Alma Gill, WINDOWS SECURITY ENGINEER.SPECIALTY THERAPIST [address] [place] [address] PCP - General Family Medicine 08/15/21 Dedrick Krause, [place] [address] Cardiology 06/04/22 Psychology Associate Relationship Specialty Start Date End Date Alma Gill, WINDOWS SECURITY ENGINEER.SPECIALTY THERAPIST [address] [place] [address] PCP - General Family Medicine 08/15/21 Dedrick Krause, [place] [address] Cardiology 06/04/22 Psychology Associate Relationship Specialty Start Date End Date Alma Gill, WINDOWS SECURITY ENGINEER.SPECIALTY THERAPIST [address] [facility] [place] [address] PCP - General Family Medicine 08/15/21 Dedrick Krause, [place] [address] Cardiology 06/04/22 Psychology Associate Relationship Specialty Start Date End Date Alma Gill, WINDOWS SECURITY ENGINEER.SPECIALTY THERAPIST [address] [place] [address] PCP - General Family Medicine 08/15/21 [place] [address] [place] [address] Cardiology 06/04/22 Psychology Associate Relationship Specialty Start Date End Date Alma iGll, WINDOWS SECURITY ENGINEER.SPECIALTY THERAPIST [address] [place] [address] PCP - General Family Medicine 08/15/21 Dedrick Krause, DO [address] [place] [address] Cardiology 06/04/22 Psychology Associate Relationship Specialty Start Date End Date Alma Gill, WINDOWS SECURITY ENGINEER.SPECIALTY THERAPIST [address] [place] [address] PCP - General Family Medicine 08/15/21 Dedrick Krause, DO [address] [place] [address] Cardiology 06/04/22 Psychology Associate Relationship Specialty Start Date End Date Alma Gill, WINDOWS SECURITY ENGINEER.SPECIALTY THERAPIST [address] [place] [address] PCP - General Family Medicine 08/15/21 Dedrick Krause, DO [address] [place] [address] Cardiology 06/04/22 Psychology Associate Relationship Specialty Start Date End Date Alma iGll, WINDOWS SECURITY ENGINEER.SPECIALTY THERAPIST [address] [place] [address] PCP - General Family Medicine 08/15/21 Dedrick Krause [address] [place] [address] Cardiology 06/04/22 Psychology Associate Relationship Specialty Start Date End Date Alma Gill, WINDOWS SECURITY ENGINEER.SPECIALTY THERAPIST [address] [place] [address] PCP - General Family Medicine 08/15/21 Dedrick Krause DO [address] [place] [address] Cardiology 06/04/22 Psychology Associate Relationship Specialty Start Date End Date Alma Gill, WINDOWS SECURITY ENGINEER.SPECIALTY THERAPIST [address] [place] [address] PCP - General Family Medicine 08/15/21 Dedrick Krause DO [address] [place] [address] Cardiology 06/04/22 Psychology Associate Relationship Specialty Start Date End Date Alma Gill, WINDOWS SECURITY ENGINEER.SPECIALTY THERAPIST [address] [place] [address] PCP - General Family Medicine 08/15/21 Dedrick Krause DO [address] [place] [address] Cardiology 06/04/22 Psychology Associate Relationship Specialty Start Date End Date Alma Gill, WINDOWS SECURITY ENGINEER.SPECIALTY THERAPIST [address] [place] [address] PCP - General Family Medicine 08/15/21 Dedrick Krause DO [address] [place] [address] Cardiology 06/04/22 Psychology Associate Relationship Specialty Start Date End Date Alma Gill, WINDOWS SECURITY ENGINEER.SPECIALTY THERAPIST [address] [place] [address] PCP - General Family Medicine 08/15/21 Dedrick Krause DO [address] [place] [address] Cardiology 06/04/22 Psychology Associate Relationship Specialty Start Date End Date Alma Gill, WINDOWS SECURITY ENGINEER.SPECIALTY THERAPIST [address] [place] [address] PCP - General Family Medicine 08/15/21 Dedrick Krause DO [facility] [place] [address] Cardiology 06/04/22 Psychology Associate Relationship Specialty Start Date End Date Alma Gill, WINDOWS SECURITY ENGINEER.SPECIALTY THERAPIST [address] [place] [address] PCP - General Family Medicine 08/15/21 Dedrick Krause DO [facility] [place] [address] Cardiology 06/04/22 Psychology Associate Relationship Specialty Start Date End Date Alma Gill, WINDOWS SECURITY ENGINEER.SPECIALTY THERAPIST [address] [place] [address] PCP - General Family Medicine 08/15/21 Dedrick Krause DO [facility] [place] [address] Cardiology 06/04/22 Psychology Associate Relationship Specialty Start Date End Date Alma Gill, WINDOWS SECURITY ENGINEER.SPECIALTY THERAPIST [address] [place] [address] PCP - General Family Medicine 08/15/21 Dedrick Krause DO [facility] [place] [address] Cardiology 06/04/22 Psychology Associate Relationship Specialty Start Date End Date Alma Gill WINDOWS SECURITY ENGINEER.SPECIALTY THERAPIST [address] [place] [address] PCP - General Family Medicine 08/15/21 Dedrick Krause DO [address] [place] [address] Cardiology 06/04/22 Psychology Associate Relationship Specialty Start Date End Date Alma Gill WINDOWS SECURITY ENGINEER.SPECIALTY THERAPIST [address] [place] [address] PCP - General Family Medicine 08/15/21 Dedrick Krause DO [address] [place] [address] Cardiology 06/04/22 Psychology Associate Relationship Specialty Start Date End Date Alma Gill, WINDOWS SECURITY ENGINEER.SPECIALTY THERAPIST [address] [place] [address] PCP - General Family Medicine 08/15/21 Dedrick Krause DO [facility] [place] [address] Cardiology 06/04/22 Psychology Associate Relationship Specialty Start Date End Date Alma Gill WINDOWS SECURITY ENGINEER.SPECIALTY THERAPIST [address] [place] [address] PCP - General Family Medicine 08/15/21 Dedrick Krause DO [facility] [place] [address] Cardiology 06/04/22 Psychology Associate Relationship Specialty Start Date End Date Alma Gill WINDOWS SECURITY ENGINEER.SPECIALTY THERAPIST [address] [place] [address] PCP - General Family Medicine 08/15/21 Dedrick Krause DO [facility] [place] [address] Cardiology 06/04/22 Psychology Associate Relationship Specialty Start Date End Date Alam Gill APRN.SPECIALTY THERAPIST [address] [place] [address] PCP - General Family Medicine 08/15/21 Dedrick Krause DO [address] [place] [address] Cardiology 06/04/22 Psychology Associate Relationship Specialty Start Date End Date Alma Gill APRN.SPECIALTY THERAPIST [address] [place] [address] PCP - General Family Medicine 08/15/21 Dedrick Krause DO [address] [place] [address] Cardiology 06/04/22 Psychology Associate Relationship Specialty Start Date End Date Alma Gill APRN.SPECIALTY THERAPIST [address] [place] [address] PCP - General Family Medicine 08/15/21 Dedrick Krause DO [address] [place] [address] Cardiology 06/04/22 Psychology Associate Relationship Specialty Start Date End Date Alma Gill WINDOWS SECURITY ENGINEER.EVANS [address] [place] [address] PCP - General Family Medicine 08/15/21 Dedrick Krause DO [address] [place] [address] Cardiology 06/04/22 Psychology Associate Relationship Specialty Start Date End Date Alma Gill, TAY.SPECIALTY THERAPIST [address] [place] [address] PCP - General Family Medicine 08/15/21 Dedrick Krause DO [address] [place] [address] Cardiology 06/04/22 Psychology Associate Relationship Specialty Start Date End Date Alma Gill, WINDOWS SECURITY ENGINEER.SPECIALTY THERAPIST [address] [place] [address] PCP - General Family Medicine 08/15/21 Dedrick Krause DO [address] [place] [address] Cardiology 06/04/22 Psychology Associate Relationship Specialty Start Date End Date Alma Gill APRN.SPECIALTY THERAPIST [address] [place] [address] PCP - General Family Medicine 08/15/21 Dedrick Krause DO [address] [place] [address] Cardiology 06/04/22 Psychology Associate Relationship Specialty Start Date End Date Alma Gill WINDOWS SECURITY ENGINEER.EVANS [address] [place] [address] PCP - General Family Medicine 08/15/21 Dedrick Krause DO [address] [place] [phone] Cardiology 06/04/22 Psychology Associate Relationship Specialty Start Date End Date Alma Gill APRN.SPECIALTY THERAPIST [address] [place] [address] PCP - General Family Medicine 08/15/21 Dedrick Krause DO [address] [place] [address] Cardiology 06/04/22 Psychology Associate Relationship Specialty Start Date End Date Alma Gill, WINDOWS SECURITY ENGINEER.SPECIALTY THERAPIST [address] [place] [address] PCP - General Family Medicine 08/15/21 Dedrick Krause DO [address] [place] [address] Cardiology 06/04/22 Psychology Associate Relationship Specialty Start Date End Date Alma Gill WINDOWS SECURITY ENGINEER.SPECIALTY THERAPIST [address] [place] [address] PCP - General Family Medicine 08/15/21 Dedrick Krause DO [address] [place] [address] Cardiology 06/04/22 Psychology Associate Relationship Specialty Start Date End Date Alma Gill, WINDOWS SECURITY ENGINEER.SPECIALTY THERAPIST [address] [place] [address] PCP - General Family Medicine 08/15/21 Dedrick Krause DO [address] [place] [address] Cardiology 06/04/22 Psychology Associate Relationship Specialty Start Date End Date Alma Gill, WINDOWS SECURITY ENGINEER.SPECIALTY THERAPIST [address] [place] [address] PCP - General Family Medicine 08/15/21 Dedrick Krause DO [address] [place] [address] Cardiology 06/04/22 Psychology Associate Relationship Specialty Start Date End Date Alma Gill, WINDOWS SECURITY ENGINEER.SPECIALTY THERAPIST [address] [place] [address] PCP - General Family Medicine 08/15/21 Dedrick Krause DO [address] [place] [address] Cardiology 06/04/22 Psychology Associate Relationship Specialty Start Date End Date Alma Gill, WINDOWS SECURITY ENGINEER.SPECIALTY THERAPIST [address] [place] [address] PCP - General Family Medicine 08/15/21 Dedrick Krause DO [address] [place] [address] Cardiology 06/04/22 Psychology Associate Relationship Specialty Start Date End Date Alma Gill, WINDOWS SECURITY ENGINEER.SPECIALTY THERAPIST [address] [place] [address] PCP - General Family Medicine 08/15/21 Dedrick Krause DO [address] [place] [address] Cardiology 06/04/22 Psychology Associate Relationship Specialty Start Date End Date Alma Gill, WINDOWS SECURITY ENGINEER.SPECIALTY THERAPIST [address] [place] [address] PCP - General Family Medicine 08/15/21 Dedrick Krause DO [facility] [place] [address] Cardiology 06/04/22 Psychology Associate Relationship Specialty Start Date End Date Alma Gill, WINDOWS SECURITY ENGINEER.SPECIALTY THERAPIST [address] [place] [address] PCP - General Family Medicine 08/15/21 Dedrick Krause DO [address] [place] [address] Cardiology 06/04/22 Psychology Associate Relationship Specialty Start Date End Date Alma Gill, WINDOWS SECURITY ENGINEER.SPECIALTY THERAPIST [address] [place] [address] PCP - General Family Medicine 08/15/21 Dedrick Krause DO [address] [place] [address] Cardiology 06/04/22 Psychology Associate Relationship Specialty Start Date End Date Alma Gill, WINDOWS SECURITY ENGINEER.SPECIALTY THERAPIST [address] [place] [address] PCP - General Family Medicine 08/15/21 Dedrick Krause DO [address] [place] [address] Cardiology 06/04/22 Psychology Associate Relationship Specialty Start Date End Date Alma Gill, WINDOWS SECURITY ENGINEER.SPECIALTY THERAPIST [address] [place] [address] PCP - General Family Medicine 08/15/21 Dedrick Krause DO [address] [place] [address] Cardiology 06/04/22 Psychology Associate Relationship Specialty Start Date End Date Alma Gill, WINDOWS SECURITY ENGINEER.SPECIALTY THERAPIST [address] [place] [address] PCP - General Family Medicine 08/15/21 Dedrick Krause DO [address] [place] [address] Cardiology 06/04/22 Psychology Associate Relationship Specialty Start Date End Date Alma Gill, WINDOWS SECURITY ENGINEER.SPECIALTY THERAPIST [address] [place] [address] PCP - General Family Medicine 08/15/21 Dedrick Krause DO [address] [place] [address] Cardiology 06/04/22 Psychology Associate Relationship Specialty Start Date End Date Alma Gill, WINDOWS SECURITY ENGINEER.SPECIALTY THERAPIST [address] [place] [address] PCP - General Family Medicine 08/15/21 Dedrick Krause DO [address] [place] [address] Cardiology 06/04/22 Psychology Associate Relationship Specialty Start Date End Date Alma Gill, WINDOWS SECURITY ENGINEER.SPECIALTY THERAPIST [address] [place] [address] PCP - General Family Medicine 08/15/21 Dedrick Krause DO [address] [place] [address] Cardiology 06/04/22 Psychology Associate Relationship Specialty Start Date End Date Amla Gill, WINDOWS SECURITY ENGINEER.SPECIALTY THERAPIST [address] [place] [address] PCP - General Family Medicine 08/15/21 Dedrick Krause DO [address] [place] [address] Cardiology 06/04/22 Psychology Associate Relationship Specialty Start Date End Date Alma Gill, WINDOWS SECURITY ENGINEER.SPECIALTY THERAPIST [address] [place] [address] PCP - General Family Medicine 08/15/21 Dedrick Krause DO [address] [place] [address] Cardiology 06/04/22 Psychology Associate Relationship Specialty Start Date End Date Alma Gill, WINDOWS SECURITY ENGINEER.SPECIALTY THERAPIST [address] [place] [address] PCP - General Family Medicine 08/15/21 Dedrick Krause DO [address] [place] [address] Cardiology 06/04/22 Psychology Associate Relationship Specialty Start Date End Date Alma Gill, WINDOWS SECURITY ENGINEER.SPECIALTY THERAPIST [address] [place] [address] PCP - General Family Medicine 08/15/21 Dedrick Krause DO [facility] [place] [address] Cardiology 06/04/22 Psychology Associate Relationship Specialty Start Date End Date Alma Gill, WINDOWS SECURITY ENGINEER.SPECIALTY THERAPIST [address] [place] [address] PCP - General Family Medicine 08/15/21 Dedrick Krause DO [facility] [place] [address] Cardiology 06/04/22 Qi Zazueta RN [address] [place], [place] [id number] Primary Care Structural Technician 01/17/24 Psychology Associate Relationship Specialty Start Date End Date Alma Gill, WINDOWS SECURITY ENGINEER.SPECIALTY THERAPIST [address] [place] [address] PCP - General Family Medicine 08/15/21 Dedrick Krause DO [address] [place] [address] Cardiology 06/04/22 Qi Zazueta, RN [address] [place] [id number] Primary Care Structural Technician 01/17/24 Psychology Associate Relationship Specialty Start Date End Date Alma Gill, WINDOWS SECURITY ENGINEER.SPECIALTY THERAPIST [address] [place] [address] PCP - General Family Medicine 08/15/21 Dedrick Krause DO [facility] [place] [address] Cardiology 06/04/22 Qi Zazueta, RN [address] [place] [address] Primary Care Structural Technician 01/17/24 Psychology Associate Relationship Specialty Start Date End Date Alma Gill, WINDOWS SECURITY ENGINEER.SPECIALTY THERAPIST [address] [place] [address] PCP - General Family Medicine 08/15/21 Dedrick Krause DO [address] [place] [address] Cardiology 06/04/22 Qi Zazueta, RN [address] [place] [address] Primary Care Structural Technician 01/17/24 Psychology Associate Relationship Specialty Start Date End Date Alma Gill, WINDOWS SECURITY ENGINEER.SPECIALTY THERAPIST [address] [place] [address] PCP - General Family Medicine 08/15/21 Dedrick Krause DO [facility] [place] [address] Cardiology 06/04/22 Qi Zazueta RN [address] [place] [address] Primary Care Structural Technician 01/17/24 Psychology Associate Relationship Specialty Start Date End Date Alma Gill, WINDOWS SECURITY ENGINEER.SPECIALTY THERAPIST [address] [place] [address] PCP - General Family Medicine 08/15/21 Dedrick Krause, [address] [place] [address] Cardiology 06/04/22 Qi Zazueta, RN [address] [place], [place] [id number] Primary Care Structural Technician 01/17/24 Psychology Associate Relationship Specialty Start Date End Date Alma Gill, WINDOWS SECURITY ENGINEER.SPECIALTY THERAPIST [address] [place] [address] PCP - General Family Medicine 08/15/21 Dedrick Krause DO [address] [place] [address] Cardiology 06/04/22 Qi Zazueta RN [address] [place], [place] [id number] Primary Care Structural Technician 01/17/24 Psychology Associate Relationship Specialty Start Date End Date Alma Gill, WINDOWS SECURITY ENGINEER.SPECIALTY THERAPIST [address] [place] [address] PCP - General Family Medicine 08/15/21 Dedrick Krause DO [address] [place] [address] Cardiology 06/04/22 Qi Zazueta, RN [address] [place], [place] [id number] Primary Care Structural Technician 01/17/24 Lilian Sethi, RN Primary Care Structural Technician 02/05/24 02/26/24 Psychology Associate Relationship Specialty Start Date End Date Alma Gill, WINDOWS SECURITY ENGINEER.SPECIALTY THERAPIST [address] [place] [address] PCP - General Family Medicine 08/15/21 Dedrick Krause DO [address] [place] [address] Cardiology 06/04/22 Qi Zazueta RN [address] [place], [place] [id number] Primary Care Structural Technician 01/17/24 Lilian Sethi RN Primary Care Structural Technician 02/05/24 02/26/24 Psychology Associate Relationship Specialty Start Date End Date Alma Gill, WINDOWS SECURITY ENGINEER.SPECIALTY THERAPIST [address] [place] [address] PCP - General Family Medicine 08/15/21 Dedrick Krause DO [facility] [place] [address] Cardiology 06/04/22 Qi Zazueta RN [address] [place], [place] [id number] Primary Care Structural Technician 01/17/24 Lilian Sethi RN Primary Care Structural Technician 02/05/24 02/26/24 Psychology Associate Relationship Specialty Start Date End Date Alma Gill, WINDOWS SECURITY ENGINEER.SPECIALTY THERAPIST [address] [place] [address] PCP - General Family Medicine 08/15/21 Dedrick Krause DO [address] [place] [address] Cardiology 06/04/22 Qi Zazueta RN [address] [place], [place] [id number] Primary Care Structural Technician 01/17/24 Lilian Sethi RN Primary Care Structural Technician 02/05/24 02/26/24 Psychology Associate Relationship Specialty Start Date End Date Alma Gill, WINDOWS SECURITY ENGINEER.SPECIALTY THERAPIST [address] [place] [address] PCP - General Family Medicine 08/15/21 Dedrick Krause DO [address] [place] [address] Cardiology 06/04/22 Qi Zazueta, RN [address] [place], [place] [id number] Primary Care Structural Technician 01/17/24 Lilian Sethi RN Primary Care Structural Technician 02/05/24 02/26/24 Psychology Associate Relationship Specialty Start Date End Date Alma Gill, WINDOWS SECURITY ENGINEER.SPECIALTY THERAPIST [address] [place] [address] PCP - General Family Medicine 08/15/21 Dedrick Krause DO [facility] [place] [address] Cardiology 06/04/22 Qi Zazueta, RN [address] [place] [address] Primary Care Structural Technician 01/17/24 Psychology Associate Relationship Specialty Start Date End Date Alma Gill, WINDOWS SECURITY ENGINEER.SPECIALTY THERAPIST [address] [place] [address] PCP - General Family Medicine 08/15/21 Dedrick Krause DO [address] [place] [address] Cardiology 06/04/22 Qi Zazueta, RN [address] [place], [place] [id number] Primary Care Structural Technician 01/17/24 Psychology Associate Relationship Specialty Start Date End Date Alma Gill, WINDOWS SECURITY ENGINEER.SPECIALTY THERAPIST [address] [place] [address] PCP - General Family Medicine 08/15/21 Dedrick Krause DO [address] [place] [address] Cardiology 06/04/22 Qi Zazueta RN [address] [place] [address] Primary Care Structural Technician 01/17/24 Psychology Associate Relationship Specialty Start Date End Date Alma Gill, WINDOWS SECURITY ENGINEER.SPECIALTY THERAPIST [address] [place] [address] PCP - General Family Medicine 08/15/21 Dedrick Krause DO [address] [place] [address] Cardiology 06/04/22 Qi Zazueta RN [address] [place] [address] Primary Care Structural Technician 01/17/24 Psychology Associate Relationship Specialty Start Date End Date Alma Gill, WINDOWS SECURITY ENGINEER.SPECIALTY THERAPIST [address] [place] [address] PCP - General Family Medicine 08/15/21 Dedrick Krause DO [address] [place] [address] Cardiology 06/04/22 Qi Zazueta RN [address] [place], [place] [id number] Primary Care Structural Technician 01/17/24 Psychology Associate Relationship Specialty Start Date End Date Alma Gill, WINDOWS SECURITY ENGINEER.SPECIALTY THERAPIST [address] [place] [address] PCP - General Family Medicine 08/15/21 Dedrick Krause DO [address] [place] [address] Cardiology 06/04/22 Qi Zazueta, RN [address] [place], [place] [id number] Primary Care Structural Technician 01/17/24 Psychology Associate Relationship Specialty Start Date End Date Alma Gill, WINDOWS SECURITY ENGINEER.SPECIALTY THERAPIST [address] [place] [address] PCP - General Family Medicine 08/15/21 Dedrick Krause DO [address] [place] [address] Cardiology 06/04/22 Qi Zazueta RN [address] [place] [address] Primary Care Structural Technician 01/17/24 Psychology Associate Relationship Specialty Start Date End Date Alma Gill WINDOWS SECURITY ENGINEER.SPECIALTY THERAPIST [address] [place] [address] PCP - General Family Medicine 08/15/21 Dedrick Krause DO [address] [place] [address] Cardiology 06/04/22 Qi Zazueta RN [address] [place] [address] Primary Care Structural Technician 01/17/24 Psychology Associate Relationship Specialty Start Date End Date Alma Gill, WINDOWS SECURITY ENGINEER.SPECIALTY THERAPIST [address] [place] [address] PCP - General Family Medicine 08/15/21 Dedrick Krause DO [address] [place] [address] Cardiology 06/04/22 Qi Zazueta, RN [address] [place] [address] Primary Care Structural Technician 01/17/24 04/17/24 Psychology Associate Relationship Specialty Start Date End Date Alma Gill, WINDOWS SECURITY ENGINEER.SPECIALTY THERAPIST [address] [place] [address] PCP - General Family Medicine 08/15/21 Dedrick Krause DO [address] [place] [address] Cardiology 06/04/22 Qi Zazueta RN [address] [place] [address] Primary Care Structural Technician 01/17/24 04/17/24 Psychology Associate Relationship Specialty Start Date End Date Alma Gill, WINDOWS SECURITY ENGINEER.SPECIALTY THERAPIST [address] [place] [address] PCP - General Family Medicine 08/15/21 Dedrick Krause DO [address] [place] [address] Cardiology 06/04/22 Qi Zazueta, RN [address] [place], [place] [id number] Primary Care Structural Technician 01/17/24 04/17/24 Psychology Associate Relationship Specialty Start Date End Date Alma Gill, WINDOWS SECURITY ENGINEER.SPECIALTY THERAPIST [address] [place] [address] PCP - General Family Medicine 08/15/21 Dedrick Krause DO [address] [place] [address] Cardiology 06/04/22 Qi Zazueta RN [address] [place], [place] [id number] Primary Care Structural Technician 01/17/24 04/17/24 Psychology Associate Relationship Specialty Start Date End Date Alma Gill, WINDOWS SECURITY ENGINEER.SPECIALTY THERAPIST [address] [place] [address] PCP - General Family Medicine 08/15/21 Dedrick Krause DO [address] [place] [address] Cardiology 06/04/22 Qi Zazueta RN [address] [place], [place] [id number] Primary Care Structural Technician 01/17/24 04/17/24 Psychology Associate Relationship Specialty Start Date End Date Alma Gill, WINDOWS SECURITY ENGINEER.SPECIALTY THERAPIST [address] [place] [address] PCP - General Family Medicine 08/15/21 Dedrick Krause DO [address] [place] [address] Cardiology 06/04/22 Qi Zazueta, RN [address] [place] [id number] Primary Care Structural Technician 01/17/24 04/17/24 Psychology Associate Relationship Specialty Start Date End Date Alma Gill, WINDOWS SECURITY ENGINEER.SPECIALTY THERAPIST [address] [place] [address] PCP - General Family Medicine 08/15/21 Dedrick Krause DO [address] [place] [address] Cardiology 06/04/22 Qi Zazueta RN [address] [place] [address] Primary Care Structural Technician 01/17/24 04/17/24 Psychology Associate Relationship Specialty Start Date End Date Alma Gill, WINDOWS SECURITY ENGINEER.SPECIALTY THERAPIST [address] [place] [address] PCP - General Family Medicine 08/15/21 Dedrick Krause DO [address] [place] [address] Cardiology 06/04/22 Qi Zazueta RN [address] [place], [place] [id number] Primary Care Structural Technician 01/17/24 04/16/24 Psychology Associate Relationship Specialty Start Date End Date Alma Gill, WINDOWS SECURITY ENGINEER.SPECIALTY THERAPIST [address] [place] [address] PCP - General Family Medicine 08/15/21 Dedrick Krause DO [address] [place] [address] Cardiology 06/04/22 Psychology Associate Relationship Specialty Start Date End Date Alma Gill, WINDOWS SECURITY ENGINEER.SPECIALTY THERAPIST [address] [place] [address] PCP - General Family Medicine 08/15/21 Dedrick Krause DO [address] [place] [address] Cardiology 06/04/22 Psychology Associate Relationship Specialty Start Date End Date Alma Gill, WINDOWS SECURITY ENGINEER.SPECIALTY THERAPIST [address] [place] [address] PCP - General Family Medicine 08/15/21 Dedrick Krause DO [address] [place] [address] Cardiology 06/04/22 Psychology Associate Relationship Specialty Start Date End Date Alma Gill, WINDOWS SECURITY ENGINEER.SPECIALTY THERAPIST [address] [place] [address] PCP - General Family Medicine 08/15/21 Dedrick Krause DO [address] [place] [address] Cardiology 06/04/22 Psychology Associate Relationship Specialty Start Date End Date Alma Gill, WINDOWS SECURITY ENGINEER.SPECIALTY THERAPIST [address] [place] [address] PCP - General Family Medicine 08/15/21 Dedrick Krause DO [address] [place] [address] Cardiology 06/04/22 Psychology Associate Relationship Specialty Start Date End Date Alma Gill, WINDOWS SECURITY ENGINEER.SPECIALTY THERAPIST [address] [place] [address] PCP - General Family Medicine 08/15/21 Dedrick Krause DO [address] [place] [address] Cardiology 06/04/22 Psychology Associate Relationship Specialty Start Date End Date Alma Gill, WINDOWS SECURITY ENGINEER.SPECIALTY THERAPIST [address] [place] [address] PCP - General Family Medicine 08/15/21 Dedrick Krause DO [facility] [place] [address] Cardiology 06/04/22 Psychology Associate Relationship Specialty Start Date End Date Alma Gill, WINDOWS SECURITY ENGINEER.SPECIALTY THERAPIST [address] [place] [address] PCP - General Family Medicine 08/15/21 Dedrick Krause DO [address] [place] [address] Cardiology 06/04/22 Psychology Associate Relationship Specialty Start Date End Date Alma Gill, WINDOWS SECURITY ENGINEER.SPECIALTY THERAPIST [address] [place] [address] PCP - General Family Medicine 08/15/21 Dedrick Krause DO [address] [place] [address] Cardiology 06/04/22 Psychology Associate Relationship Specialty Start Date End Date Alma Gill, WINDOWS SECURITY ENGINEER.SPECIALTY THERAPIST [address] [place] [address] PCP - General Family Medicine 08/15/21 Dedrick Krause DO [address] [place] [address] Cardiology 06/04/22 Psychology Associate Relationship Specialty Start Date End Date Alma Gill, WINDOWS SECURITY ENGINEER.SPECIALTY THERAPIST [address] [place] [address] PCP - General Family Medicine 08/15/21 Dedrick Krause DO [facility] [place] [address] Cardiology 06/04/22 Psychology Associate Relationship Specialty Start Date End Date Alma Gill, WINDOWS SECURITY ENGINEER.SPECIALTY THERAPIST [address] [place] [address] PCP - General Family Medicine 08/15/21 Dedrick Krause DO [address] [place] [address] Cardiology 06/04/22 Psychology Associate Relationship Specialty Start Date End Date Alma Gill, WINDOWS SECURITY ENGINEER.SPECIALTY THERAPIST [address] [place] [address] PCP - General Family Medicine 08/15/21 Dedrick Krause DO [address] [place] [address] Cardiology 06/04/22 Psychology Associate Relationship Specialty Start Date End Date Alma Gill, WINDOWS SECURITY ENGINEER.SPECIALTY THERAPIST [address] [place] [address] PCP - General Family Medicine 08/15/21 Dedrick Krause DO [address] [place] [address] Cardiology 06/04/22 Psychology Associate Relationship Specialty Start Date End Date Alma Gill, WINDOWS SECURITY ENGINEER.SPECIALTY THERAPIST [address] [facility] [place] [address] PCP - General Family Medicine 08/15/21 Dedrick Krause DO [address] [place] [address] Cardiology 06/04/22 Psychology Associate Relationship Specialty Start Date End Date Alma Gill, WINDOWS SECURITY ENGINEER.SPECIALTY THERAPIST [address] [place] [address] PCP - General Family Medicine 08/15/21 Dedrick Krause DO [address] [place] [address] Cardiology 06/04/22 Psychology Associate Relationship Specialty Start Date End Date Alma Gill, WINDOWS SECURITY ENGINEER.SPECIALTY THERAPIST [address] [place] [address] PCP - General Family Medicine 08/15/21 Dedrick Krause DO [address] [place] [address] Cardiology 06/04/22 Psychology Associate Relationship Specialty Start Date End Date Alma Gill, WINDOWS SECURITY ENGINEER.SPECIALTY THERAPIST [address] [place] [address] PCP - General Family Medicine 08/15/21 Dedrick Krause DO [address] [place] [address] Cardiology 06/04/22 Psychology Associate Relationship Specialty Start Date End Date Alma Gill, WINDOWS SECURITY ENGINEER.SPECIALTY THERAPIST [address] [place] [address] PCP - General Family Medicine 08/15/21 Dedrick Krause DO [address] [place] [address] Cardiology 06/04/22 Psychology Associate Relationship Specialty Start Date End Date Alma Gill, WINDOWS SECURITY ENGINEER.SPECIALTY THERAPIST [address] [place] [address] PCP - General Family Medicine 08/15/21 Dedrick Krause DO [facility] [place] [address] Cardiology 06/04/22 Psychology Associate Relationship Specialty Start Date End Date Alma Gill, WINDOWS SECURITY ENGINEER.SPECIALTY THERAPIST [address] [place] [address] PCP - General Family Medicine 08/15/21 Dedrick Krause DO [facility] [place] [address] Cardiology 06/04/22 Psychology Associate Relationship Specialty Start Date End Date Alma Gill, WINDOWS SECURITY ENGINEER.SPECIALTY THERAPIST [address] [place] [address] PCP - General Family Medicine 08/15/21 Dedrick Krause DO [address] [place] [address] Cardiology 06/04/22 Team Status: Active Member Role Status Dates Alma Gill COMPLEX MANAGER, COMPLEX MANAGER-C Primary Care Provider Active Team Status: Inactive Member Role Status Dates Alma Gill COMPLEX MANAGER, COMPLEX MANAGER-C Primary Care Provider Active Start: July 20, 2024 End: July 20, 2024 Alma Gill COMPLEX MANAGER, COMPLEX MANAGER-C Attending Provider Active Start: July 20, 2024 End: July 20, 2024 Alma Gill COMPLEX MANAGER, COMPLEX MANAGER-C Referring Provider Active Start: July 20, 2024 End: July 20, 2024 Psychology Associate Relationship Specialty Start Date End Date Alma Gill APRN.SPECIALTY THERAPIST [address] [place] [address] PCP - General Family Medicine 08/15/21 Dedrick Krause DO [address] [place] [address] Cardiology 06/04/22 Psychology Associate Relationship Specialty Start Date End Date Alma Gill APRN.SPECIALTY THERAPIST [address] [place] [address] PCP - General Family Medicine 08/15/21 Dedrick Krause DO [address] [place] [address] Cardiology 06/04/22 Psychology Associate Relationship Specialty Start Date End Date Alma Gill APRN.SPECIALTY THERAPIST [address] [place] [address] PCP - General Family Medicine 08/15/21 Dedrick Krause DO [address] [place] [address] Cardiology 06/04/22 Psychology Associate Relationship Specialty Start Date End Date Alma Gill APRN.EVANS [address] [place] [address] PCP - General Family Medicine 08/15/21 Dedrick Krause DO [facility] [place] [address] Cardiology 06/04/22 Psychology Associate Relationship Specialty Start Date End Date Alma Gill, WINDOWS SECURITY ENGINEER.SPECIALTY THERAPIST [address] [place] [address] PCP - General Family Medicine 08/15/21 Dedrick Krause DO [address] [place] [address] Cardiology 06/04/22 Psychology Associate Relationship Specialty Start Date End Date Alma Gill, WINDOWS SECURITY ENGINEER.SPECIALTY THERAPIST [address] [place] [address] PCP - General Family Medicine 08/15/21 Dedrick Krause DO [address] [place] [address] Cardiology 06/04/22 Psychology Associate Relationship Specialty Start Date End Date Alma Gill WINDOWS SECURITY ENGINEER.SPECIALTY THERAPIST [address] [place] [address] PCP - General Family Medicine 08/15/21 Dedrick Krause DO [address] [place] [address] Cardiology 06/04/22 Psychology Associate Relationship Specialty Start Date End Date Alma Gill, WINDOWS SECURITY ENGINEER.SPECIALTY THERAPIST [address] [place] [address] PCP - General Family Medicine 08/15/21 Beatrice Sarmiento MD [address] [place], [place] [address] Cardiology 10/12/24 Psychology Associate Relationship Specialty Start Date End Date Alma Gill, WINDOWS SECURITY ENGINEER.SPECIALTY THERAPIST [address] [place] [address] PCP - General Family Medicine 08/15/21 Beatrice Sarmiento MD [address] [place] [address] Cardiology 10/12/24 Psychology Associate Relationship Specialty Start Date End Date Alma Gill, WINDOWS SECURITY ENGINEER.SPECIALTY THERAPIST [address] [place] [address] PCP - General Family Medicine 08/15/21 Beatrice Sarmiento MD [address] [place] [address] Cardiology 10/12/24 Lilian Sethi RN Primary Care Structural Technician 10/19/24 Psychology Associate Relationship Specialty Start Date End Date Alma Gill, WINDOWS SECURITY ENGINEER.SPECIALTY THERAPIST [address] [place] [address] PCP - General Family Medicine 08/15/21 Beatrice Sarmiento MD [address] [place] [address] Cardiology 10/12/24 Lilian Sethi RN Primary Care Structural Technician 10/19/24 Psychology Associate Relationship Specialty Start Date End Date Alma Gill, WINDOWS SECURITY ENGINEER.SPECIALTY THERAPIST [address] [facility] [place] [address] PCP - General Family Medicine 08/15/21 Dedrick Krause DO [address] [place] [address] Cardiology 06/04/22 10/11/24 Beatrice Sarmiento MD [address] [facility] [address] Cardiology 10/12/24 Lilian Sethi RN Primary Care Structural Technician 10/19/24 Psychology Associate Relationship Specialty Start Date End Date Alma Gill, WINDOWS SECURITY ENGINEER.SPECIALTY THERAPIST [address] [facility] [address] PCP - General Family Medicine 08/15/21 Beatrice Sarmiento MD [address] [facility] [address] Cardiology 10/12/24 Psychology Associate Relationship Specialty Start Date End Date Alma Gill, WINDOWS SECURITY ENGINEER.SPECIALTY THERAPIST [address] [facility] [address] PCP - General Family Medicine 08/15/21 Beatrice Sarmiento MD [address] [address] Cardiology 10/12/24 Lilian Sethi RN Primary Care Structural Technician 10/19/24 Psychology Associate Relationship Specialty Start Date End Date Alma Gill, WINDOWS SECURITY ENGINEER.SPECIALTY THERAPIST [address] [place] [address] PCP - General Family Medicine 08/15/21 Dedrick Krause DO [address] [place] [address] Cardiology 06/04/22 10/11/24 Beatrice Sarmiento MD [address] [address] Cardiology 10/12/24 Lilian Sethi RN Primary Care Structural Technician 10/19/24 Psychology Associate Relationship Specialty Start Date End Date Alma Gill, WINDOWS SECURITY ENGINEER.SPECIALTY THERAPIST [address] [place] [address] PCP - General Family Medicine 08/15/21 Beatrice Sarmiento MD [address] [address] Cardiology 10/12/24 Lilian Sethi RN Primary Care Structural Technician 10/19/24 Psychology Associate Relationship Specialty Start Date End Date Alma Gill, WINDOWS SECURITY ENGINEER.SPECIALTY THERAPIST [address] [place] [address] PCP - General Family Medicine 08/15/21 Beatrice Sarmiento MD [address] [place] [address] Cardiology 10/12/24 Lilian Sethi RN Primary Care Structural Technician 10/19/24 Psychology Associate Relationship Specialty Start Date End Date Alma Gill, WINDOWS SECURITY ENGINEER.SPECIALTY THERAPIST [address] [facility], [place] [address] PCP - General Family Medicine 08/15/21 Beatrice Sarmiento MD [address] [facility] [address] Cardiology 10/12/24 Lilian Sethi RN Primary Care Structural Technician 10/19/24 Psychology Associate Relationship Specialty Start Date End Date Alma Gill, WINDOWS SECURITY ENGINEER.SPECIALTY THERAPIST [address] [facility] [place] [address] PCP - General Family Medicine 08/15/21 Dedrick Krause DO [address] [place] [address] Cardiology 06/04/22 10/11/24 Beatrice Sarmiento MD [address] [facility] [address] Cardiology 10/12/24 Lilian Sethi RN Primary Care Structural Technician 10/19/24 Psychology Associate Relationship Specialty Start Date End Date Alma Gill, WINDOWS SECURITY ENGINEER.SPECIALTY THERAPIST [address] [facility] [place] [address] PCP - General Family Medicine 08/15/21 Beatrice Sarmiento MD [address] [place] [address] Cardiology 10/12/24 Lilian Sethi RN Primary Care Structural Technician 10/19/24 Psychology Associate Relationship Specialty Start Date End Date Alma Gill, WINDOWS SECURITY ENGINEER.SPECIALTY THERAPIST [address] [place] [address] PCP - General Family Medicine 08/15/21 Beatrice Sarmiento MD [address] [place] [address] Cardiology 10/12/24 Lilian Sethi RN Primary Care Structural Technician 10/19/24 Psychology Associate Relationship Specialty Start Date End Date Alma Gill, WINDOWS SECURITY ENGINEER.SPECIALTY THERAPIST [address] [place] [address] PCP - General Family Medicine 08/15/21 Beatrice Sarmiento MD [address] [place] [address] Cardiology 10/12/24 Lilian Sethi, SERGEY Primary Care Structural Technician 10/19/24 Psychology Associate Relationship Specialty Start Date End Date Alma Gill, WINDOWS SECURITY ENGINEER.SPECIALTY THERAPIST [address] [place] [address] PCP - General Family Medicine 08/15/21 Beatrice Sarmiento MD [address] [place] [address] Cardiology 10/12/24 Lilian Sethi, SERGEY Primary Care Structural Technician 10/19/24 Psychology Associate Relationship Specialty Start Date End Date Alma Gill, WINDOWS SECURITY ENGINEER.SPECIALTY THERAPIST [address] [place] [address] PCP - General Family Medicine 08/15/21 Dedrick Krause DO [address] [place] [address] Cardiology 06/04/22 10/11/24 Beatrice Sarmiento MD [address] [place], [place] [address] Cardiology 10/12/24 Lilian Sethi RN Primary Care Structural Technician 10/19/24 11/15/24 Psychology Associate Relationship Specialty Start Date End Date Alma Gill WINDOWS SECURITY ENGINEER.SPECIALTY THERAPIST [address] [place] [address] PCP - General Family Medicine 08/15/21 Beatrice Sarmiento MD [address] [place], [place] [address] Cardiology 10/12/24 Lilian Sethi RN Primary Care Structural Technician 10/19/24 11/23/24 Psychology Associate Relationship Specialty Start Date End Date Alma Gill WINDOWS SECURITY ENGINEER.SPECIALTY THERAPIST [address] [place] [address] PCP - General Family Medicine 08/15/21 Beatrice Sarmiento MD [address] [place] [address] Cardiology 10/12/24 Lilian Sethi RN Primary Care Structural Technician 10/19/24 11/23/24 Psychology Associate Relationship Specialty Start Date End Date Alma Gill, WINDOWS SECURITY ENGINEER.SPECIALTY THERAPIST [address] [place], [place] [address] PCP - General Family Medicine 08/15/21 Dedrick Krause DO [address] [place] [address] Cardiology 06/04/22 10/11/24 Beatrice Sarmiento MD [address] [place], [place] [phone] Cardiology 10/12/24 Lilian Sethi, RN Primary Care Structural Technician 10/19/24 11/23/24 Psychology Associate Relationship Specialty Start Date End Date Alma Gill, WINDOWS SECURITY ENGINEER.SPECIALTY THERAPIST [address] [place] [address] PCP - General Family Medicine 08/15/21 Beatrice Sarmiento MD [address] [place] [address] Cardiology 10/12/24 Psychology Associate Relationship Specialty Start Date End Date Alma Gill, WINDOWS SECURITY ENGINEER.SPECIALTY THERAPIST [address] [place] [address] PCP - General Family Medicine 08/15/21 Dedrick Krause DO [address] [place] [address] Cardiology 06/04/22 10/11/24 Beatrice Sarmiento MD [address] [place] [address] Cardiology 10/12/24 Lilian Sethi, RN Primary Care Structural Technician 10/19/24 11/23/24 Psychology Associate Relationship Specialty Start Date End Date Alma Gill WINDOWS SECURITY ENGINEER.SPECIALTY THERAPIST [address] [place] [address] PCP - General Family Medicine 08/15/21 Beatrice Sarmiento MD [address] [facility], [place] [address] Cardiology 10/12/24 Psychology Associate Relationship Specialty Start Date End Date Alma Gill, WINDOWS SECURITY ENGINEER.SPECIALTY THERAPIST [address] [place] [address] PCP - General Family Medicine 08/15/21 Beatrice Sarmiento MD [address] [facility], [place] [address] Cardiology 10/12/24 Psychology Associate Relationship Specialty Start Date End Date Alma Gill, WINDOWS SECURITY ENGINEER.SPECIALTY THERAPIST [address] [place] [address] PCP - General Family Medicine 08/15/21 Beatrice Sarmiento MD [address] [facility], [place] [address] Cardiology 10/12/24 Psychology Associate Relationship Specialty Start Date End Date Alma Gill, WINDOWS SECURITY ENGINEER.SPECIALTY THERAPIST [address] [place] [address] PCP - General Family Medicine 08/15/21 Beatrice Sarmiento MD [address] [place], [place] [address] Cardiology 10/12/24 Psychology Associate Relationship Specialty Start Date End Date Alma Gill WINDOWS SECURITY ENGINEER.SPECIALTY THERAPIST [address] [place] [address] PCP - General Family Medicine 08/15/21 Beatrice Sarmiento MD [address] [place], [place] [address] Cardiology 10/12/24 Psychology Associate Relationship Specialty Start Date End Date Alma Gill, WINDOWS SECURITY ENGINEER.SPECIALTY THERAPIST [address] [place] [address] PCP - General Family Medicine 08/15/21 Beatrice Sarmiento MD [address] [facility], [place] [address] Cardiology 10/12/24 Psychology Associate Relationship Specialty Start Date End Date Alma Gill, WINDOWS SECURITY ENGINEER.SPECIALTY THERAPIST [address] [place] [address] PCP - General Family Medicine 08/15/21 Beatrice Sarmiento MD [address] [facility] [address] Cardiology 10/12/24 Psychology Associate Relationship Specialty Start Date End Date Alma Gill, WINDOWS SECURITY ENGINEER.SPECIALTY THERAPIST [address] [place] [address] PCP - General Family Medicine 08/15/21 Beatrice Sarmiento MD [address] [place], [place] [id number] Cardiology 10/12/24 Psychology Associate Relationship Specialty Start Date End Date Alma Gill, WINDOWS SECURITY ENGINEER.SPECIALTY THERAPIST [address] [facility], [place] [id number] PCP - General Family Medicine 08/15/21 Beatrice Sarmiento MD [address] [facility], [place] [id number] Cardiology 10/12/24 Lilian Sethi RN Primary Care Structural Technician 10/19/24 11/23/24 Psychology Associate Relationship Specialty Start Date End Date Alma Gill, WINDOWS SECURITY ENGINEER.SPECIALTY THERAPIST [address] [place] [address] PCP - General Family Medicine 08/15/21 Beatrice Sarmiento MD [address] [place], [place] [id number] Cardiology 10/12/24 <item> Privacy Markings (unrecogniz ed [...] Date Dose Rate Site benzocaine 20% 1 Elbert (TOPEX) 1 Elbert, TOPICAL, DIRECTED, Starting on Joanna 06/20/23 at [...] BE BASED ON THE PRIMARY CLINICAL RECORDS. [employer] provides no warranty or guarantee of the accuracy or completeness of information in this document.
[2025-04-07 17:50] LABS: Hematocrit 35.7 % (40-54); Hemoglobin 11.2 g/dL (13.0-16.5); Mean Corp Hgb Conc 31.4 g/dL (32-36); Mean Corpuscular Volume 82.6 fL (80-94); Mean Platelet Vol. 9.6 fl (6.2-12.0); Platelet Count 239 K/mm3 (150-450); RBC Distribution Width CV 14.6 % (11.6-14.6); RBC Distribution Width SD 43.8 fl (35.1-43.9); Red Blood Count 4.32 M/mm3 (4.6-6.2); White Blood Count 8.0 K/mm3 (4.4-11.0)
[2025-04-07 18:44] LABS: Anion Gap 12 (5-15); BUN 10 mg/dL (4-19); BUN/Creat Ratio 9.2 RATIO (10-20); Calcium,Total 9.0 mg/dL (7.6-11.0); Carbon Dioxide 28.1 mmol/L (21.0-32.0); Chloride 89 mmol/L (98-108); Glucose 88 mg/dL (70-99); Potassium 4.4 mmol/L (3.3-5.1)
== END | disposition home or self-care (01) ==
PROVIDERS: PCP Nurse Practitioner Family; Referring Provider Physician Assistant; Visit Provider Physician Assistant
DX: J44.9 Chronic obstructive pulmonary disease, unspecified (principal); I11.0 Hypertensive heart disease with heart failure; J84.9 Interstitial pulmonary disease, unspecified
CPT/HCPCS: 80048; 85027

== ENCOUNTER → 2025-05-04 | Outpatient (CLI) | payer MEDICARE, BC, SELFPAY ==
[2025-05-04 17:59] LABS: Hematocrit 34.0 % (40-54); Hemoglobin 10.6 g/dL (13.0-16.5); Mean Corp Hgb Conc 31.2 g/dL (32-36); Mean Corpuscular Volume 83.5 fL (80-94); Mean Platelet Vol. 9.7 fl (6.2-12.0); Platelet Count 260 K/mm3 (150-450); RBC Distribution Width CV 15.9 % (11.6-14.6); RBC Distribution Width SD 48.4 fl (35.1-43.9); Red Blood Count 4.07 M/mm3 (4.6-6.2); White Blood Count 13.1 K/mm3 (4.4-11.0)
[2025-05-04 19:09] LABS: Anion Gap 10 (7-18); BUN 9 mg/dL (4-19); BUN/Creat Ratio 9.2 RATIO (10-20); Calcium,Total 9.2 mg/dL (7.6-11.0); Carbon Dioxide 27.3 mmol/L (20.0-29.0); Chloride 89 mmol/L (96-106); Glucose 85 mg/dL (70-99); Potassium 4.9 mmol/L (3.5-5.1)
== END | disposition home or self-care (01) ==
PROVIDERS: PCP Nurse Practitioner Family
DX: J84.9 Interstitial pulmonary disease, unspecified (principal); I11.0 Hypertensive heart disease with heart failure
CPT/HCPCS: 80048; 85027